=== PATIENT | female | born 1965 | race Hispanic/Latino ===

== ENCOUNTER → 2020-01-15 18:06 | Outpatient (CLI) | payer OTHER, SELFPAY ==
--- NOTE | ~2020-01-15 | MM_ITS ---
EXAMINATION: MM screening [facility] BI w ora HISTORY: Screening mammogram TECHNIQUE: Craniocaudal and mediolateral oblique 3-D tomosynthesis images were obtained and synthetic 2-D images were generated. CAD analysis was submitted and interpreted. COMPARISON: 01/08/2019 BREAST PARENCHYMAL COMPOSITION: There are scattered areas of fibroglandular density. FINDINGS: There are developing bilateral breast asymmetries/masses. There are no suspicious calcifica tions. There is a tissue marker in the upper central aspect of the right breast. IMPRESSION: 1. Developing bilateral breast asymmetries. 2. Additional mammographic views and possible breast ultrasound are recommended. BI-RADS Category 0: Incomplete: Needs additional imaging evaluation. Reviewed, dictated and finalized at location A. ADER IMPRESSION: 1. Developing bilateral breast asymmetries. 2. Additional mammographic views and possible breast ultrasound are recommended . BI-RADS Category 0: Incomplete: Needs additional imaging evaluation.
== END ==
PROVIDERS: Visit Provider Obstetrics & Gynecology
DX: Z12.31 Encounter for screening mammogram for malignant neoplasm of breast (principal); R92.8 Other abnormal and inconclusive findings on diagnostic imaging of breast
CPT/HCPCS: 77063; 77067

== ENCOUNTER → 2020-02-05 09:54 | Outpatient (CLI) | payer OTHER, SELFPAY ==
--- NOTE | ~2020-02-05 | MMUS_ITS ---
EXAMINATION: MM diagnostic mammo BI, US breast BI limited HISTORY: Follow-up bilateral breast masses TECHNIQUE: Additional 3-D tomosynthesis images of the breasts were performed and synthetic 2-D images were generated. CAD analysis was submitted and interpreted. High resolution bilateral breast ultraso und was performed. COMPARISON: Comparison to multiple prior studies sequentially, with oldest reviewed study dated 01/08. FINDINGS: MAMMOGRAPHIC FINDINGS: Breast composed of scattered areas of fibroglandular density. There are small bilateral breast masses which are scattered by fibroglandular tissue. There are no suspicious calcifications or architectura l distortion. ULTRASOUND: Right breast ultrasound: At 12:00, 5 cm from the nipple, there is a cluster of cysts measuring up to 5 mm. At 11:00, 7 cm from the nipple there is a 4 mm cyst. At 10:00, 8 cm from the nipple, there is a 5 mm intramammary lymph node. Left breast ultrasound: 4 mm cyst at 2:00, 6 cm from the nipple. At 2:00, 5 cm from the nipple there is a 1.3 cm cyst. IMPRESSION: 1. No evidence for malignancy in either breast. Benign bilateral breast cysts. 2. Routine yearly screening mammogram and regular clinical breast examination are recommended. BI-RADS Category 2: Benign finding(s). Reviewed, dictated and finalized at location A. IMPRESSION: 1. No evidence for malignancy in either breast. Benign bilateral breast cysts. 2. Routine yearly screening mammogram and regular clinical breast examination a re recommended. BI-RADS Category 2: Benign finding(s).
== END ==
PROVIDERS: PCP Emergency Medicine; Visit Provider Obstetrics & Gynecology
DX: R92.8 Other abnormal and inconclusive findings on diagnostic imaging of breast (principal)
CPT/HCPCS: 76642; 77066

== ENCOUNTER 2020-04-13 00:25 | Emergency (ER) | payer OTHER, SELFPAY ==
--- NOTE | ~2020-04-13 | XR_ITS ---
XR chest 2V DATE: 04/13/2020 01:00 INDICATION: Shortness of breath TECHNIQUE: PA and lateral views COMPARISON: 09/01/2019 2 view chest FINDINGS: Chronic elevation of right leaf of diaphragm. Surgical clips, right upper quadrant, consist ent with cholecystectomy. Normal heart size. Mild aortic calcification and tortuosity. No hilar or mediastinal enlargement. No pulmonary infiltrate or consolidation, pleural effusion or pulmonary vascular congestion or pneumo thorax. IMPRESSION: Chronic elevation right diaphragm Status post cholecystectomy No active cardiac pulmonary disease Aortic atherosclerosis Reviewed, dictated and finalized at location A.
[2020-04-13 00:29] VITALS: BP 176/99; PULSE 115; RESP 20; TEMP 36.9; O2SAT 100
--- NOTE | 2020-04-13 00:36 | ECG_ITS ---
Measurements Intervals [place] Rate: 112 P: 41 WA: 146 QRS: -29 QRSD: 87 T: 31 QT: 314 QTc: 430 Interpretive Statements SINUS TACHYCARDIA POOR R WAVE PROGRESSION, ANTERIOR LEADS BASELINE WANDER- V4-V5 ABNORMAL ECG Electronically Signed On 04-13-2020 7:25:35 CDT by Juan Zimmerman D.O.
--- NOTE | 2020-04-13 00:38 | ED.ARRPALP ---
HPI - Arrhythmia/Palpitations General Chief Complaint: Arrhythmia/Palpitations Stated Complaint: nausea, fast HR Time Seen by Provider: 04/13/20 00:28 History of Present Illness HPI narrative: Fast heart rate for the past several hours. She has noted this multiple times recently. She has had her BP medications adjusted due to these complaints. Additioanly she feels nauseated. She denies chest pain or SOB, although she does say that she feels like she just ran around the block . Related Data Allergies Allergy/AdvReac Type Severity Reaction Status Date / Time ciprofloxacin Allergy Intermediate Dyspnea / Verified 04/13/20 00:38 SOB metronidazole [From Flagyl] Allergy Intermediate Dyspnea / Verified 04/13/20 00:38 SOB codeine Allergy Mild Itching Verified 04/13/20 00:38 amlodipine AdvReac Intermediate Hypotension Verified 04/13/20 00:38 Review of Systems Review of Systems: All systems reviewed & are unremarkable except as noted in HPI and below Constitutional: Constitutional: Denies chills and Denies fever(s) ENT: Denies sore throat Cardiovascular: Cardiovascular: Denies chest pain and Reports rapid heart rate Respiratory: Respiratory: Denies cough and Denies dyspnea Gastrointestinal: Gastrointestinal: Denies abdominal pain, Reports nausea and Denies vomiting Psychiatric: Psychiatric: Reports anxiety [facility] Social History Social History (Updated 04/14/20 @ 02:20 by Gui Wu MD) Smoking status: Current every day smoker Exam Const: General: healthy appearing, no acute distress and alert Orientation/consciousness: patient oriented x3 HENMT: Head: normal to inspection Neck: Neck: normal visual inspection and no lymphadenopathy Chest: Chest palpation & inspection: no tenderness Resp: Effort & Inspection: normal respiratory effort Auscultation: clear to auscultation bilaterally, no rales, no rhonchi and no wheezes Cardio: Jugular venous distension: no JVD Rate: tachycardic Rhythm: regular rhythm Heart sounds: no murmurs GI: Inspection: non-distended GI Palp: Yes Soft to palpation and No Tenderness to palpation present (GI) Skin: General skin exam: normal color Neuro: General: patient oriented x3, moves all extremities, no focal motor deficits and CN's II-XI intact bilaterally Speech: normal speech Gait exam (Neuro): Normal gait present Extrem: General: no edema Psych: Appearance: well kempt Affect: normal affect Course Vital Signs Vital signs: Vital Signs Temperature 36.9 C 04/13/20 00:29 Pulse Rate 115 H 04/13/20 00:29 Respiratory Rate 20 04/13/20 00:29 Blood Pressure 176/99 H 04/13/20 00:29 Pulse Oximetry 100 04/13/20 00:29 Temperature 36.6 C 04/13/20 04:11 Pulse Rate 96 04/13/20 04:11 Respiratory Rate 16 04/13/20 04:11 Blood Pressure 108/63 04/13/20 04:11 Pulse Oximetry 99 04/13/20 04:11 MDM - Arrhythmia/Palpitations Differential Diagnosis Differential diagnosis: Likely palpitations, anxiety and sinus tachycardia Medical Records Attestation: I reviewed the patient's medical records. Lab Data Attestation: I reviewed the patient's lab results. Result diagrams: 04/13/20 00:51 04/13/20 00:51 Labs: Lab Results 04/13/20 04/13/20 04/13/20 Range/Units 00:51 00:51 00:51 WBC 13.2 H (4.5-10.0) K/mm3 RBC 4.53 (4.2-5.4) M/mm3 Hgb 14.2 (12.0-15.0) g/dL Hct 42.0 (37.0-47.0) % MCV 92.7 (80-100) fl MCH 31.3 (26-34) pg MCHC 33.8 (32-36) g/dl RDW 13.3 (11.5-14.5) % Plt Count 333 (150-375) k/mm3 MPV 10.4 (7.4-10.4) fl Immature Gran % (Auto) 0.6 H (0-0.5) % Neut % (Auto) 65.7 (45.5-73.1) % Lymph % (Auto) 25.2 (18.3-44.2) % [place] % (Auto) 6.2 (2.6-8.5) % Eos % (Auto) 1.8 (0-4.4) % Baso % (Auto) 0.5 (0.2-1.2) % Lymph # (Auto) 3.32 H (0.9-3.2) K/mm3 [place] # (Auto) 0.8 H (0.1-0.6) K/mm3 Eos # (Auto) 0.2 (0-0.3) K/mm3 B
[2020-04-13 01:07] LABS: Basophils Absolute Auto 0.1 K/mm3 (0.0-0.1); Basophils Percent Auto 0.5 % (0.2-1.2); Eosinophils Absolute Auto 0.2 K/mm3 (0-0.3); Eosinophils Percent Auto 1.8 % (0-4.4); Hemoglobin 14.2 g/dL (12.0-15.0); Immature Granulocyte Absolute 0.08 K/mm3 (0.00-0.031); Immature Granulocyte Percent A 0.6 % (0-0.5); Lymphocytes Absolute Auto 3.32 K/mm3 (0.9-3.2); Lymphocytes Percent Auto 25.2 % (18.3-44.2); Mean Corpuscular HGB Conc 33.8 g/dl (32-36); Mean Corpuscular Hemoglobin 31.3 pg (26-34); Mean Corpuscular Volume 92.7 fl (80-100); Mean Platelet Volume 10.4 fl (7.4-10.4); Monocytes Absolute Auto 0.8 K/mm3 (0.1-0.6); Monocytes Percent Auto 6.2 % (2.6-8.5); Neutrophils Absolute Auto 8.6 K/mm3 (1.3-6.7); Neutrophils Percent Auto 65.7 % (45.5-73.1); Platelet Count Result 333 k/mm3 (150-375); Red Blood Count 4.53 M/mm3 (4.2-5.4); Red Cell Distribution Width 13.3 % (11.5-14.5); White Blood Count 13.2 K/mm3 (4.5-10.0)
[2020-04-13] MEDS: LORAZEPAM INJ 2 MG/ML VIAL 1 MG IV PUSH (01:12)
[2020-04-13] MEDS: SODIUM CHLORIDE 0.9% IV 1,000 ML 999 ML IV CONT (01:13)
[2020-04-13 01:20] LABS: Blood Urea Nitrogen 17 mg/dL (7-17); Calcium 8.8 mg/dL (8.4-10.2); Carbon Dioxide 29 mmol/L (22-30); Chloride 103 mmol/L (98-107); Estimated Glomerular Filt Rate > 60; Glucose 104 mg/dL (65-105); Potassium 3.8 mmol/L (3.4-5.0); Sodium 138 mmol/L (137-145)
[2020-04-13 02:11] VITALS: BP 157/99; PULSE 111; RESP 20; O2SAT 100
[2020-04-13 02:34] VITALS: BP 121/72; PULSE 101; RESP 22; O2SAT 99
--- NOTE | 2020-04-13 02:51 | PC.NURSE ---
Patient's Steven, calls to get update on patient. This nurse informed him that the patient is stable and that we are waiting for test results at this time.
[2020-04-13 02:56] LABS: Add Urine Microscopic? NO; Appearance Urine Clear (Clear); Bilirubin Urine Negative (Negative); Blood Urine Negative (Negative); Color Urine Straw (Yellow); Glucose Urine UA Negative (Negative); Ketones Urine Negative (Negative); Leukocyte Esterase Ur Negative LEU/UL (Negative); Nitrate Urine Negative (Negative); Protein Urine Negative (Negative); RBC Urine 0-2 /hpf (0-2); Specific Grav Ur 1.012 (1.001-1.035); Squamous Epithelial Cell Urine Rare /hpf (Few); Urobilinogen Urine Negative mg/dL (<2.0); WBC Urine 0-3 /hpf
[2020-04-13 04:11] VITALS: BP 108/63; PULSE 96; RESP 16; TEMP 36.6; O2SAT 99
== END 2020-04-13 04:15 | disposition home or self-care (01) ==
PROVIDERS: Emergency Provider Emergency Medicine; PCP Emergency Medicine
DX: R00.0 Tachycardia, unspecified (principal); R94.31 Abnormal electrocardiogram [ECG] [EKG]
CPT/HCPCS: 36415; 71046; 80048; 81003; 85025; 85380; 93005; 96361; 96374; 99284; J2060; J7030

== ENCOUNTER → 2021-03-30 12:22 | Outpatient (CLI) | payer OTHER, SELFPAY ==
--- NOTE | ~2021-03-30 | XR_ITS ---
EXAMINATION: XR lumbar spine 2-3V EXAM DATE: 03/30/2021 12:43 INDICATION: Lumbago with sciatica, right side. TECHNIQUE: Lumber spine frontal, lateral, lateral L5-S1 projections for interpretation. There is no prior study for comparison. FINDINGS: Mild lumbar levoscoliosis. There is mild to moderate loss of the L1-2 disc height. The yuliya tebral body and disc heights are otherwise well maintained. Mild to moderate lumbar facet arthropathy . There are cholecystectomy clips. Sacrum, sacroiliac joints, sacral arcuate lines are intact. Parasp inal soft tissue is unremarkable. IMPRESSION: 1. Mild to moderate L1-S2 disc disease. 2. Mild to moderate lumbar facet arthropathy. 3. Mild levoscoliosis. Reviewed, dictated and finalized at location A.
== END ==
PROVIDERS: PCP Emergency Medicine; Visit Provider Emergency Medicine
DX: M54.41 Lumbago with sciatica, right side (principal); M51.36 Other intervertebral disc degeneration, lumbar region
CPT/HCPCS: 72100

== ENCOUNTER → 2021-06-17 14:58 | Outpatient (CLI) | payer OTHER, SELFPAY ==
--- NOTE | ~2021-06-17 | MR_ITS ---
EXAMINATION: MR lumbar spine wo con EXAM DATE: 06/17/2021 16:25 INDICATION: Pain in thoracic spine, Radiculopathy, lumbar region Back Pain. TECHNIQUE: Multi-sequential, multiplanar MR images of the lumbar spine were obtained without contrast . Sagittal T1, T2, T2 fat saturation images. Axial T2 weighted images. Correlation is made to lumba r x-ray 03/30/2021. FINDINGS: The conus medullaris terminates at the L1-2 level and has normal signal intensity and morph ology. Mild lumbar disc disease. The vertebral bodies are aligned in the AP dimension. There are no suspicious marrow signal abnormalities. Paraspinal soft tissue is unremarkable. Level by level evaluation: T12-L1: Disc does not extend beyond the endplate margin. Facet arthropathy: Minimal. Neural foraminal stenosis: No stenosis. Central canal stenosis: No stenosis. L1-L2: There is a minimal diffuse disc bulge. Facet arthropathy: Minimal. Neural foraminal stenosis: No stenosis. Central canal stenosis: No stenosis. L2-L3: There is a minimal diffuse disc bulge. Facet arthropathy: Mild. Neural foraminal stenosis: No stenosis. Central canal stenosis: No stenosis. L3-L4: There is a mild to moderate diffuse disc bulge. Facet arthropathy: Mild to moderate. Neural foraminal stenosis: Mild to moderate left. Central canal stenosis: Mild. L4-L5: There is a mild diffuse disc bulge. Facet arthropathy: Mild. Neural foraminal stenosis: Mild left. Central canal stenosis: Mild. L5-S1: There is a mild diffuse disc bulge. Facet arthropathy: Mild. Neural foraminal stenosis: Mild right. Central canal stenosis: No stenosis. IMPRESSION: 1. Left L3-4 mild to moderate neural foraminal stenosis, less at other levels. Reviewed, dictated and finalized at location B.
--- NOTE | ~2021-06-17 | MR_ITS ---
EXAMINATION: MR thoracic spine wo con EXAM DATE: 06/17/2021 16:24 INDICATION: Thoracic pain, lumbar radiculopathy. TECHNIQUE: Multi-sequential, multiplanar MR images of the thoracic spine were obtained without contra st. Sagittal T1, T2, T2 fat saturation, axial T2 weighted images reviewed. There is no prior study for comparison. FINDINGS: There is mild to moderate thoracic facet arthropathy at T8-10-11 and T11-12. There is moder ate left neural foraminal stenosis at T10-11, moderate right neural foraminal stenosis at T9-T10. Oth erwise no more than mild neural foraminal stenosis or central canal stenosis. Mild disc bulges at mos t of the levels. There is edema in the right half of the T9 vertebral body without discrete fracture line identified, could be bone bruise. Paraspinal soft tissue is unremarkable. IMPRESSION: 1. Moderate right neural foraminal stenosis T9-10 and left at T10-11. 2. Less spondylosis other levels. 3. T9 edema could be bone bruise, no fracture line identified. Reviewed, dictated and finalized at location B.
== END ==
PROVIDERS: PCP Emergency Medicine; Visit Provider Nurse Practitioner Adult Health
DX: M54.16 Radiculopathy, lumbar region (principal)
CPT/HCPCS: 72146; 72148

== ENCOUNTER → 2021-06-25 12:02 | Outpatient (CLI) | payer OTHER, SELFPAY ==
--- NOTE | ~2021-06-25 | MM_ITS ---
EXAMINATION: MM screening [facility] BI w ora HISTORY: Screening TECHNIQUE: Craniocaudal and mediolateral oblique 3-D tomosynthesis images were obtained and synthetic 2-D images were generated. CAD analysis was submitted and interpreted. COMPARISON: Comparison to multiple prior studies sequentially, with oldest reviewed study dated 01/08. BREAST PARENCHYMAL COMPOSITION: There are scattered areas of fibroglandular density. FINDINGS: Development of a mass in the lower inner quadrant of the left breast, middle third. The rig ht breast is stable without evidence for malignancy. IMPRESSION: 1. New 6 mm left breast mass, lower inner quadrant, middle third. 2. Additional mammographic views and possible breast ultrasound are recommended. BI-RADS Category 0: Incomplete: Needs additional imaging evaluation. Reviewed, dictated and finalized at location A. IMPRESSION: 1. New 6 mm left breast mass, lower inner quadrant, middle third. 2. Additional mammographic views and possible breast ultrasound are recommended . BI-RADS Category 0: Incomplete: Needs additional imaging evaluation.
== END ==
PROVIDERS: Visit Provider Obstetrics & Gynecology
DX: Z12.31 Encounter for screening mammogram for malignant neoplasm of breast (principal); R92.8 Other abnormal and inconclusive findings on diagnostic imaging of breast
CPT/HCPCS: 77063; 77067

== ENCOUNTER → 2021-07-30 08:25 | Outpatient (CLI) | payer OTHER, SELFPAY ==
--- NOTE | ~2021-07-30 | MMUS_ITS ---
EXAMINATION: MM diagnostic [facility] LT w ora, US breast LT complete HISTORY: New 6 mm mass reported in the lower inner quadrant of the left breast, middle third, on 2020 screening mammogram TECHNIQUE: Additional full field ML and spot ML, MLO and craniocaudal 3-D tomosynthesis images of the left breast were performed and synthetic 2-D images were generated. CAD analysis was submitted and i nterpreted. High resolution complete left breast ultrasound was performed. COMPARISON: 06/25/2021 bilateral digital screening mammogram BREAST PARENCHYMAL COMPOSITION: There are scattered areas of fibroglandular density. FINDINGS: MAMMOGRAPHIC FINDINGS: Mildly nodular fibroglandular stroma is noted. No suspicious mass or architectural distortion is iden tified. ULTRASOUND: 1:00 2 cm from nipple: There is an irregular anti-parallel somewhat bilobed shaped approximately 3.6 x 6.8 mm mass. No internal vascularity or shadowing is noted. However, the irregular shape and anti-p arallel orientation are suspicious. Ultrasound-guided biopsy is recommended. 2:00 5 cm from nipple: 6 mm simple cyst with through transmission and posterior enhancement 7:00 6 cm from nipple: Probable multi septate approximately 4 x 5 mm cyst. IMPRESSION: 1. Irregular antiparallel 3.6 x 6.8 mm mass of left breast at 1:00 2 cm from nipple 2. Ultrasound-guided biopsy is recommended BI-RADS category 4, suspicious findings. Dr. Melo telephoned the report and ultrasound-guided biopsy recommendation on 07/30/[address] Vela's Field Service Tech Sachi. Reviewed, dictated and finalized at location A. IMPRESSION: 1. Irregular antiparallel 3.6 x 6.8 mm mass of left breast at 1:00 2 cm from ni pple 2. Ultrasound-guided biopsy is recommended BI-RADS category 4, suspicious findings. Dr. Melo telephoned the report and ultrasound-guided biopsy recommendation on at [address] Vela's Field Service Tech Sachi.
== END ==
PROVIDERS: PCP Emergency Medicine; Visit Provider Obstetrics & Gynecology
DX: N63.20 Unspecified lump in the left breast, unspecified quadrant (principal)
CPT/HCPCS: 76641; 77061; 77065; G0279

== ENCOUNTER 2021-09-21 17:33 | Emergency (ER) | payer OTHER, SELFPAY ==
[2021-09-21 17:40] VITALS: BP 143/89; PULSE 91; RESP 16; TEMP 36.4; O2SAT 100
--- NOTE | 2021-09-21 17:53 | ED.WOUNDLAC ---
HPI - Wound/Laceration General Chief Complaint: Wound/Laceration Stated Complaint: rt hand pinkie finger laceration Time Seen by Provider: 09/21/21 17:48 Source: patient, RN notes reviewed and old records reviewed Mode of arrival: ambulatory Limitations: no limitations History of Present Illness HPI narrative: 56 year old female presents to express care with complaints of laceration to her right dorsal distal right 5th finger which occurred earlier today when she was cleaning the blades on [employer] type of appliance. Patient states that her tetanus is up to date. Patient states that she tried pressure dressing, Betadine and even applied liquid skin to wound to try to stop the bleeding but area continues to ooze blood. 1.5cm wound present to the distal dorsal aspect of 5th right finger, mobility intact with strong right radial pulse. Related Data Home Medications Medication Instructions Recorded Confirmed aspirin 09/21/21 atorvastatin 09/21/21 duloxetine mg PO 09/21/21 ergocalciferol (vitamin D2) 09/21/21 estradiol VAGINAL 09/21/21 hydrochlorothiazide 09/21/21 hydrocodone-acetaminophen 09/21/21 irbesartan mg 09/21/21 lubiprostone mcg PO 09/21/21 ropinirole mg 09/21/21 Allergies Allergy/AdvReac Type Severity Reaction Status Date / Time ciprofloxacin Allergy Intermediate Dyspnea / Verified 05/16/20 14:25 SOB metronidazole [From Flagyl] Allergy Intermediate Dyspnea / Verified 05/16/20 14:25 SOB codeine Allergy Mild NAUSEA AND Unverified 05/16/20 14:25 VOMITING, ITCHING amlodipine AdvReac Intermediate Hypotension Verified 05/16/20 14:25 Review of Systems Review of Systems: CONSTITUTIONAL: Denies fever, chills, or sweats. EYES: Denies visual changes, redness, or discharge. ENT: Denies rhinorrhea, congestion, sore throat, or otalgia. CARDIOVASCULAR: Denies chest pain, palpitations, or edema. RESPIRATORY: Denies cough or dyspnea. GASTROINTESTINAL: Denies abdominal pain, nausea, vomiting, or diarrhea. GENITOURINARY: Denies dysuria or hematuria. SKIN: Denies rash or itching,positive for 1.5cm linear laceration to the dorsal distal aspect of 5th right finger MUSCULOSKELETAL: Denies back pain,positive for joint pain, or myalgia. NEUROLOGIC: Denies headache, numbness, or weakness. PSYCHIATRIC: Positive history of anxiety or depression. All systems reviewed & are unremarkable except as noted in HPI and below PMFSH Past Medical History Medical History (Updated 09/21/21 @ 19:50 by Lynette Jorge NP) Anxiety Arthritis Elevated lipids Fibromyalgia Fracture of right forearm GERD (gastroesophageal reflux disease) Hypertension Restless leg syndrome Surgical History Surgical History (Updated 09/21/21 @ 19:49 by Lynette Jorge NP) H/O: hysterectomy History of appendectomy Previous section x3 Family History Family History (Updated 09/21/21 @ 19:50 by Lynette Jorge NP) Other No significant family history Social History Social History (Updated 09/21/21 @ 19:51 by Lynette Jorge NP) Smoking status: Current every day smoker Tobacco type: cigarettes Alcohol intake: current Alcohol use details: social Substance use: never Living arrangements: with family Gender identity (if verbalized by the patient): Female Comments At time of signature, agree with nursing past medical, surgical, social and family history. There is no relevant family history pertinent to the presenting complaint Exam Narrative: GENERAL: Well-appearing, well-nourished, and in no acute distress. HEAD: Normocephalic, atraumatic. EYES: PERRLA and EOMI. ENT: Nares clear, no rhinorrhea or epistaxis. Mucous membranes moist. TM's normal with good light reflex, throat pink with no redness lesions or exudates, NECK: Supple.no lymphadenopathy CHEST: Clear to auscultation. No respiratory distress.SAO2 100% on room air HEART: Regular rate and rhythm. No murmur heard. Normal per
== END 2021-09-21 18:40 | disposition home or self-care (01) ==
PROVIDERS: Emergency Provider Registered Nurse; PCP Emergency Medicine
DX: S61.216A Laceration without foreign body of right little finger without damage to nail, initial encounter (principal); W26.8XXA Contact with other sharp object(s), not elsewhere classified, initial encounter; F17.210 Nicotine dependence, cigarettes, uncomplicated; M19.90 Unspecified osteoarthritis, unspecified site; M79.7 Fibromyalgia; I10 Essential (primary) hypertension; G25.81 Restless legs syndrome
CPT/HCPCS: 12001; 99212; G0463

== ENCOUNTER → 2021-10-31 10:39 | Outpatient (CLI) | payer OTHER, SELFPAY ==
--- NOTE | ~2021-10-31 | MR_ITS ---
EXAMINATION: MR cervical spine wo con EXAM DATE: 10/31/2021 11:36 INDICATION: Cervical radicular pain neck pain/right scapular pain x10-12 yrs s/p pt fall worsening. TECHNIQUE: Multi-sequential, multiplanar MR images of the cervical spine were obtained without contra st. Axial T2, axial T2 MERGE sequence. Sagittal T1, T2, T2 fat saturation images also obtained. Th ere is no prior study for comparison. FINDINGS: There is moderate loss of the C5-6 disc height, mild to moderate loss of the C4-5 and C6-7 disc height. The spinal cord signal intensity and intrinsic morphology is normal. Cervicomedullary j unction is normal in appearance. The vertebral bodies are aligned in the AP dimension. There are no s uspicious marrow signal abnormalities. Paraspinal soft tissue is unremarkable. Level by level evaluation: C2-C3: Disc does not extend beyond the endplate margin. Uncovertebral joint arthropathy: None. Facet joint arthropathy: Moderate left. Neural foraminal stenosis: No stenosis. Central canal stenosis: No stenosis. C3-C4: Disc does not extend beyond the endplate margin. Uncovertebral joint arthropathy: Mild left moderate bilateral. Facet joint arthropathy: None. Neural foraminal stenosis: No stenosis. Central canal stenosis: No stenosis. C4-C5: There is a mild diffuse disc bulge. Uncovertebral joint arthropathy: Moderate to severe right, moderate left. Facet joint arthropathy: Severe right, moderate left. Neural foraminal stenosis: Moderate to severe right, mild to moderate left. Central canal stenosis: Mild. C5-C6: There is a mild diffuse disc bulge. Uncovertebral joint arthropathy: Severe left, moderate to severe right. Facet joint arthropathy: Moderate bilateral. Neural foraminal stenosis: Severe left, moderate to severe right. Central canal stenosis: Mild. C6-C7: There is a mild diffuse disc bulge. Uncovertebral joint arthropathy: Moderate to severe bilateral. Facet joint arthropathy: Mild to moderate bilateral. Neural foraminal stenosis: Moderate right, mild to moderate left. Central canal stenosis: Mild. C7-T1: There is a minimal diffuse disc bulge. Uncovertebral joint arthropathy: Moderate to severe left, moderate right. Facet joint arthropathy: Moderate bilateral. Neural foraminal stenosis: Mild to moderate right, mild left. Central canal stenosis: No stenosis. IMPRESSION: Significant mid cervical uncovertebral joint arthropathy causing neural foraminal stenosi s detailed above. Reviewed, dictated and finalized at location A. 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
== END ==
PROVIDERS: PCP Emergency Medicine
DX: M54.16 Radiculopathy, lumbar region (principal); M54.12 Radiculopathy, cervical region
CPT/HCPCS: 72141

== ENCOUNTER → 2023-05-12 14:10 | Outpatient (CLI) | payer OTHER, SELFPAY ==
--- NOTE | ~2023-05-12 | MM_ITS ---
EXAMINATION: MM screening [facility] BI w ora HISTORY: Screening mammogram TECHNIQUE: Craniocaudal and mediolateral oblique 3-D tomosynthesis images were obtained and synthetic 2-D images were generated. CAD analysis was submitted and interpreted. COMPARISON: 07/30/2021 diagnostic left mammogram and complete left breast ultrasound examination 06/25/2021 bilateral screening mammogram BREAST PARENCHYMAL COMPOSITION: There are scattered areas of fibroglandular density. FINDINGS: Right breast: Biopsy marker on the right; history of prior benign right stereotactic breast biopsy. T here is no evidence of suspicious mammographic mass, calcification, or architectural distortion to benson ggest malignancy in the right breast. There has been no suspicious interval change. Left breast: There is increased density in the upper outer left breast compared to 06/25/2021. Diagnostic left mammo gram and left breast ultrasound examination are recommended. IMPRESSION: 1. Increased density in upper outer left breast since 06/25/2021 2. Diagnostic left mammogram and left breast ultrasound examination are recommended BI-RADS Category 0: Incomplete: Needs additional imaging evaluation. Reviewed, dictated and finalized at location A. IMPRESSION: 1. Increased density in upper outer left breast since 06/25/2021 2. Diagnostic left mammogram and left breast ultrasound examination are recomme nded BI-RADS Category 0: Incomplete: Needs additional imaging evaluation.
== END ==
PROVIDERS: PCP Emergency Medicine; Visit Provider Obstetrics & Gynecology
DX: Z12.31 Encounter for screening mammogram for malignant neoplasm of breast (principal); R92.8 Other abnormal and inconclusive findings on diagnostic imaging of breast
CPT/HCPCS: 77063; 77067

== ENCOUNTER → 2023-06-20 14:40 | Outpatient (CLI) | payer OTHER, SELFPAY ==
--- NOTE | ~2023-06-20 | MMUS_ITS ---
EXAMINATION: MM diagnostic aury LT w ora, US breast LT limited HISTORY: Increased density in the upper outer left breast on 05/12/2023 screening mammogram TECHNIQUE: Additional 3-D tomosynthesis images of the left breast were performed and synthetic 2-D im ages were generated. CAD analysis was submitted and interpreted. High resolution upper outer and lowe r-outer quadrant left breast ultrasound was performed. COMPARISON: 05/12/2023 bilateral screening mammogram. FINDINGS: MAMMOGRAPHIC FINDINGS: Approximately 4.2 x 9.5 mm circumscribed opacity is noted in the upper inner left breast, stable or s lightly diminished in size since 06/25/2021; circumscribed margins and stable or diminished size since 2020 are most consistent with benign process. There is mildly nodular fibroglandular stroma which may obscure smaller circumscribed masses. Ultraso und examination of the upper outer and lower-outer quadrants was performed. ULTRASOUND: No suspicious solid lesion or shadowing is detected. 1:00 7 cm from nipple: Parallel circumscribed mixed solid and cystic 6.8 x 6 x 3.3 mm lesion, with th rough transmission, benign in appearance 1:00 7 cm from nipple: 4.6 x 2.5 x 4.5 mm similar circumscribed hypoechoic mixed cystic and solid les ion, without internal vascularity, with through transmission, benign in appearance 2:00 8 cm from nipple: Similar mixed cystic and solid circumscribed parallel lesion measuring 2.5 x 6 .5 x 10 mm, with through transmission, no internal vascularity, benign in appearance 2:00 7 cm from nipple: 4.6 mm circumscribed rounded opacity with through transmission, no internal va scularity, consistent with simple cyst IMPRESSION: 1. Benign findings 2. Routine annual mammographic screening is recommended BI-RADS Category 2: Benign finding(s). Reviewed, dictated and finalized at location A. IMPRESSION: 1. Benign findings 2. Routine annual mammographic screening is recommended BI-RADS Category 2: Benign finding(s).
== END ==
PROVIDERS: PCP Emergency Medicine; Visit Provider Obstetrics & Gynecology
DX: R92.2 Inconclusive mammogram (principal)
CPT/HCPCS: 76642; 77061; 77065; G0279

== ENCOUNTER 2023-09-23 09:22 | Emergency (ER) | payer OTHER, SELFPAY ==
[2023-09-23 09:34] VITALS: BP 126/85; PULSE 85; RESP 16; TEMP 36.4; O2SAT 98
--- NOTE | 2023-09-23 09:38 | ED.URI ---
HPI - URI/Sore Throat General Chief Complaint: Upper Respiratory Infection Stated Complaint: Cough Source: patient Mode of arrival: ambulatory Limitations: no limitations History of Present Illness HPI Narrative: 58-year-old female the history of hypertension presented for complaint of cough for over 1 week. She states the cough is ?deep? and hears rattling in the chest. She denies fatigue, shortness of breath, nausea diarrhea, fevers or chills. She is taking DayQuil and reports improvement in symptoms during the day. Endorses sick contacts. She states she tested negative for COVID a few days ago. Smokes up to 1ppd. Related Data Home Medications Medication Instructions Recorded Confirmed atorvastatin 20 mg tablet 20 mg PO DAILY 09/21/21 09/23/23 duloxetine 30 mg capsule,delayed 30 mg PO DAILY 09/21/21 09/23/23 release ergocalciferol (vitamin D2) 1,250 1,250 mcg PO WEEKLY 09/21/21 09/23/23 mcg (50,000 unit) capsule hydrochlorothiazide 25 mg tablet 25 mg PO DAILY 09/21/21 09/23/23 hydrocodone 5 mg-acetaminophen 325 1 tablet PO PRN PRN Pain (Scale 09/21/21 09/23/23 mg tablet Score 4-6) irbesartan 75 mg tablet 75 mg PO DAILY 09/21/21 09/23/23 lubiprostone 24 mcg capsule 24 mcg PO DAILY 09/21/21 09/23/23 ropinirole 1 mg tablet 1 mg PO DAILY 09/21/21 09/23/23 metoprolol succinate 50 mg 50 mg PO DAILY 12/29/22 09/23/23 tablet,extended release 24 hr pregabalin 75 mg capsule (Lyrica) 75 mg PO TID 12/29/22 09/23/23 Allergies Allergy/AdvReac Type Severity Reaction Status Date / Time ciprofloxacin Allergy Intermediate Dyspnea / Verified 09/23/23 09:28 SOB metronidazole [From Flagyl] Allergy Intermediate Dyspnea / Verified 09/23/23 09:28 SOB codeine Allergy Mild NAUSEA AND Unverified 09/23/23 09:28 VOMITING, ITCHING amlodipine AdvReac Intermediate Hypotension Verified 09/23/23 09:28 Review of Systems Review of Systems: CONSTITUTIONAL: Denies body aches, fever, chills, or sweats. EYES: Denies visual changes, redness, or discharge. ENT: Denies rhinorrhea, congestion, sore throat, or otalgia. CARDIOVASCULAR: Denies chest pain, palpitations, or edema. RESPIRATORY: Reports cough, denies sob, wheezing. GASTROINTESTINAL: Denies abdominal pain, nausea, vomiting, or diarrhea. GENITOURINARY: Denies dysuria or hematuria. SKIN: Denies rash, itching, or wounds. MUSCULOSKELETAL: Denies back pain, joint pain, or myalgia. NEUROLOGIC: Denies headache, numbness, tingling, or weakness. All systems reviewed & are unremarkable except as noted in HPI and below PMFSH Past Medical History Medical History Anxiety Arthritis Depression Elevated lipids Fibromyalgia Fracture of right forearm GERD (gastroesophageal reflux disease) Hypertension Osteoporosis Restless leg syndrome Screening mammogram, encounter for Surgical History Surgical History H/O: hysterectomy (~2008) lscope hysterectomy for endometriosis History of appendectomy (~2006) History of cholecystectomy (~2013) Previous section 1982 1988 1991 Family History Family History Sibling Diabetes mellitus sister Hypertension sister x2 Father Acute myocardial infarction Other Cerebrovascular accident paternal aunt Mother Malignant tumor of pharynx Social History Social History Smoking packs per day: 1 Smoking cigarettes per day: 20.0 Smoking status: Current every day smoker Tobacco type: cigarettes Alcohol intake: current Drinks per week: 5 Alcohol use details: social Substance use: never Substance use type: does not use Living arrangements: other Additional living arrangements comments: Occupation/Education: unemployed Additional occupation/education comment
== END 2023-09-23 09:50 | disposition home or self-care (01) ==
PROVIDERS: Emergency Provider Nurse Practitioner Family; PCP Emergency Medicine
DX: J40 Bronchitis, not specified as acute or chronic (principal); F17.210 Nicotine dependence, cigarettes, uncomplicated; M19.90 Unspecified osteoarthritis, unspecified site; M79.7 Fibromyalgia; K21.9 Gastro-esophageal reflux disease without esophagitis; I10 Essential (primary) hypertension; M81.0 Age-related osteoporosis without current pathological fracture; G25.81 Restless legs syndrome
CPT/HCPCS: 99213; G0463

== ENCOUNTER 2024-10-05 08:58 | Emergency (ER) | payer OTHER, SELFPAY ==
[2024-10-05] VITALS (8 sets, daily range): BP systolic 148–153; BP diastolic 83–88; PULSE 74–87; RESP 11–22; TEMP 36.2; O2SAT 95–99
--- NOTE | ~2024-10-05 | XR_ITS ---
EXAMINATION: XR ribs LT 2V w CXR 2V DATE: 10/05/2024 09:28 INDICATION: Left-sided chest wall pain TECHNIQUE: PA and lateral views of the chest and 4 views of the left ribs were obtained. COMPARISON: Chest radiograph dated 04/13/2020 FINDINGS: No rib fractures identified. Eventration of the anterior right hemidiaphragm. Lungs are clear with no focal airspace opacities, pulmonary edema, pleural effusion or pneumothorax. Heart size is normal. M oderate thoracic spondylosis. Cholecystectomy clips in right upper quadrant. IMPRESSION: 1. No rib fracture or acute cardiopulmonary disease. Reviewed, dictated and finalized at location [facility]. 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
--- NOTE | 2024-10-05 09:07 | ECG_ITS ---
Test Date: 2024-10-05 09:14:24 Measurements Intervals [place] Rate: 76 P: 10 CA: 152 QRS: -19 QRSD: 90 T: -14 QT: 351 QTc: 396 Interpretive Statements SINUS RHYTHM VOLTAGE CRITERIA FOR LVH MINIMAL Q WAVES- HIGH LATERAL LEADS BORDERLINE T WAVE ABNORMALITY- ANT/INF LEADS BASELINE ARTIFACT- I, II ,AVR, AVL, AVF BORDERLINE ECG No previous ECG available for comparison Electronically Signed On 10-05-2024 11:47:02 [employer] by Juan Zimmerman D.O.
--- NOTE | 2024-10-05 09:54 | ED_ITS ---
HPI - General Adult General Chief complaint: Unspecified Stated complaint: L rib pain Time Seen by Provider: 10/05/24 09:07 Source: patient Mode of arrival: ambulatory Limitations: no limitations History of Present Illness HPI narrative: This is a 59-year-old female that presents to the emergency department that presents to the emergency department for left sided mid back/rib pain. Ongoing over the last couple of days. No recent injuries or trauma. Pain is worse with movement. She has not taken anything today for pain. Denies fever, cough, shortness of breath, lower extremity edema. Related Data Home Medications Medication Instructions Recorded Confirmed atorvastatin 20 mg tablet 20 mg PO DAILY 09/21/21 01/04/24 duloxetine 30 mg capsule,delayed 30 mg PO DAILY 09/21/21 01/04/24 release ergocalciferol (vitamin D2) 1,250 1,250 mcg PO WEEKLY 09/21/21 01/04/24 mcg (50,000 unit) capsule hydrochlorothiazide 25 mg tablet 25 mg PO DAILY 09/21/21 01/04/24 hydrocodone 5 mg-acetaminophen 325 1 tablet PO PRN PRN Pain (Scale 09/21/21 01/04/24 mg tablet Score 4-6) irbesartan 75 mg tablet 75 mg PO DAILY 09/21/21 01/04/24 lubiprostone 24 mcg capsule 24 mcg PO DAILY 09/21/21 01/04/24 ropinirole 1 mg tablet 1 mg PO DAILY 09/21/21 01/04/24 metoprolol succinate 50 mg 50 mg PO DAILY 12/29/22 01/04/24 tablet,extended release 24 hr pregabalin 75 mg capsule (Lyrica) 75 mg PO TID 12/29/22 01/04/24 Allergies Allergy/AdvReac Type Severity Reaction Status Date / Time ciprofloxacin Allergy Intermediate Dyspnea / Verified 10/05/24 09:07 SOB metronidazole [From Flagyl] Allergy Intermediate Dyspnea / Verified 10/05/24 09:07 SOB codeine Allergy Mild NAUSEA AND Verified 10/05/24 09:07 VOMITING, ITCHING amlodipine AdvReac Intermediate Hypotension Verified 10/05/24 09:07 Review of Systems Review of Systems: CONSTITUTIONAL: Denies fever CARDIOVASCULAR: Reports rib pain. Denies palpitations, or edema. RESPIRATORY: Denies cough or dyspnea. All systems reviewed & are unremarkable except as noted in HPI and below PMFSH Past Medical History Medical History Anxiety Arthritis Depression Elevated lipids Fibromyalgia Fracture of right forearm GERD (gastroesophageal reflux disease) Hypertension Osteoporosis Restless leg syndrome Screening mammogram, encounter for Surgical History Surgical History H/O: hysterectomy (~2008) lscope hysterectomy for endometriosis History of appendectomy (~2006) History of cholecystectomy (~2013) Previous section 1982 1988 1991 Family History Family History Sibling Diabetes mellitus sister Hypertension sister x2 Father Acute myocardial infarction Other Cerebrovascular accident paternal aunt Mother Malignant tumor of pharynx Social History Social History (Updated 01/04/24 @ 14:47 by EDOUARD Partida) Smoking packs per day: 0.5 Smoking cigarettes per day: 10.0 Smoking status: Current every day smoker Tobacco type: cigarettes Second hand tobacco smoke exposure: Yes Alcohol intake: current Drinks per week: 5 Alcohol use details: social Substance use: never Substance use type: does not use Do You Feel Safe in your Home?: Yes Living arrangements: other Additional living arrangements comments: 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 HEAD: Normocephalic, atraumatic. EYES: EOMI. CHEST: Clear to auscultation. No respiratory distress. No wheezes rales or rhonchi HEART: Regular rate and rhythm. No murmur heard. Normal peripheral pulses. BACK: Tender to palpation of the left trapezius musculature EXTREMITIES: Normal range of motion. No edema. Strength equal in bilateral upper extremities (5/5) SKIN: Warm, dry, no rash. NEURO: No focal deficits. Alert and oriented x3. PSYCH: Normal mood and affect Course Course Emergency Course: patient updated on workup and agrees with plan of care Vital Signs Vital signs: Vital Signs Temperature 97.1 F L 10/05/24 09:03 Pulse Rate 87 10/05/24 09:03 Respiratory Rate 20 10/05/24 09:03 Blood Pressure 149/83 H 10/05/24 09:03 Pulse Oximetry 99 10/05/24 09:03 Oxygen Delivery Room Air 10/05/24 09:03 Temperature 97.1 F L 10/05/24 09:03 Pulse Rate 74 10/05/24 10:02 Respiratory Rate 20 10/05/24 10:02 Blood Pressure 148/85 H 10/05/24 10:02 Pulse Oximetry 95 10/05/24 10:02 Oxygen Delivery Room Air 10/05/24 09:03 Medical Decision Making MDM Narrative Medical decision making narrative: patient presents to the emergency department for left-sided mid back pain/rib pain. No recent injuries or trauma. Her vitals are stable. She is neurologically intact. pain is reproducible. Left rib/ chest x-ray without acute findings. EKG without concerning changes. Patient was updated on her workup and agrees with plan of care. Instructed to continue Tylenol, anti- inflammatories. Will be given muscle relaxer if needed for pain. She is to follow up with primary provider. She was given warnings to return to the ER Differential Diagnosis Differential Diagnosis: muscle strain, muscle spasm, rib fracture, contusion, pneumonia Vital Signs Vital Signs: Vital Signs Temperature 97.1 F L 10/05/24 09:03 Pulse Rate 87 10/05/24 09:03 Respiratory Rate 20 10/05/24 09:03 Blood Pressure 149/83 H 10/05/24 09:03 Pulse Oximetry 99 10/05/24 09:03 Oxygen Delivery Room Air 10/05/24 09:03 Temperature 97.1 F L 10/05/24 09:03 Pulse Rate 74 10/05/24 10:02 Respiratory Rate 20 10/05/24 10:02 Blood Pressure 148/85 H 10/05/24 10:02 Pulse Oximetry 95 10/05/24 10:02 Oxygen Delivery Room Air 10/05/24 09:03 Imaging Data Radiologist's impression: ITS Impressions Ribs w/Chest X-Ray 10/05/24 09:31 IMPRESSION: 1. No rib fracture or acute cardiopulmonary disease. ECG Data EKG #1: ECG completion date: 10/05/24 EKG Interpretation: normal rate, sinus rhythm, no ST changes and normal QT Critical Care Time Critical Care Time Critical Care Time: No Discharge Plan Discharge Clinical Impression: Back pain Qualifiers: Back pain location: thoracic back pain Chronicity: acute Back pain laterality: left Qualified Code(s): M54.6 - Pain in thoracic spine Patient Disposition: Home, Self-Care Condition: Stable Instructions: Muscle Strain (ED) Additional Instructions: Return to the ER if you experience fever, shortness of breath, swelling in your legs, weakness, numbness, or any other symptoms that are concerning to you Rest, use ice/heat, take anti-inflammatories (Aleve, Ibuprofen, Naproxen, etc) or Tylenol as needed for pain as well as muscle relaxer (Flexeril) as needed for pain. Muscle relaxers can make you drowsy, do not drive if you take this. Lidocaine patch as needed to the area of pain Follow up with your primary care doctor Prescriptions: New cyclobenzaprine 10 mg tablet 10 mg PO TID PRN (Reason: muscle spasm) Qty: 14 0RF lidocaine 5 % adhesive patch,medicated 1 patch topical DAILY PRN (Reason: pain) Qty: 15 0RF Rx Instructions: leave on most painful area for up to 12 hrs No Action atorvastatin 20 mg tablet 20 mg PO DAILY ropinirole 1 mg tablet 1 mg PO DAILY hydrocodone-acetaminophen 5-325 mg tablet 1 tablet PO PRN PRN (Reason: Pain (Scale Score 4-6)) irbesartan 75 mg tablet 75 mg PO DAILY hydrochlorothiazide 25 mg tablet 25 mg PO DAILY ergocalciferol (vitamin D2) 1,250 mcg (50,000 unit) capsule 1,250 mcg PO WEEKLY duloxetine 30 mg capsule,delayed release(DR/EC) 30 mg PO DAILY lubiprostone 24 mcg capsule 24 mcg PO DAILY metoprolol succinate 50 mg tablet extended release 24 hr 50 mg PO DAILY pregabalin [Lyrica] 75 mg capsule 75 mg PO TID clindamycin phosphate [Cleocin] 2 % cream 1 appful vaginal QHS Qty: 40 3RF Rx Instructions: for 3 days estradiol 0.01 % (0.1 mg/gram) cream 1 appful VAGINAL 3XW Qty: 42.5 2RF Follow-up/Referrals: Margarito العراقي MD [Primary Care Provider] -
[2024-10-05] MEDS: ACETAMINOPHEN 500 MG TABLET 1000 MG PO (10:02)
[2024-10-05] MEDS: diazePAM INJ (*CRX) 10 MG/2 ML SYRINGE 5 MG IM (10:02)
== END 2024-10-05 10:58 | disposition home or self-care (01) ==
PROVIDERS: Emergency Provider Physician Assistant; PCP Emergency Medicine
DX: M54.6 Pain in thoracic spine (principal); R94.31 Abnormal electrocardiogram [ECG] [EKG]
CPT/HCPCS: 71046; 71100; 93005; 96372; 99283; A9270; J3360

== ENCOUNTER 2024-11-06 09:06 | Outpatient (CLI) | payer OTHER, SELFPAY ==
--- NOTE | ~2024-11-06 | CT_ITS ---
CT of the Abdomen and Pelvis: Indication: Abdominal pain Technique: 2.5 mm axial scans were obtained through the abdomen and pelvis following intravenous adm inistration of 100 cc of Omnipaque 350. Dose reduction technique was used on this scan by utilizing a utomated exposure control and iterative reconstruction technique. The dose-length product (DLP) was 7 30.49 mGy-cm. Findings: Scans through the lung bases are unremarkable. The liver, spleen, pancreas, adrenals and kidneys are within normal limits. Cholecystectomy clips are present. No evidence of aortic aneurysm. No lymphadenopathy. Extensive stool suggests constipation. Questionable minimal wall thickening diffusely of the large karan wel. No bowel obstruction. Images through the pelvis were performed. Urinary bladder unremarkable. No pelvic mass seen. No ascit es. Impression: Constipation. Questionable mild diffuse large bowel wall thickening. Correlate for infectious/inflamm atory colitis. No other significant findings. Reviewed, dictated and finalized at [facility]. 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 Questionable mild diffuse large bowel wall thickening. Correlate for infectious/inflammatory colitis. No other significant findings.
[2024-11-06 09:25] LABS: Estimated Glomerular Filt Rate > 60
== END 2024-11-06 09:07 | disposition home or self-care (01) ==
LOC: MICIMG 09:07
PROVIDERS: PCP Emergency Medicine; Visit Provider Emergency Medicine
DX: R10.10 Upper abdominal pain, unspecified (principal); K59.00 Constipation, unspecified
CPT/HCPCS: 74177; Q9967

== ENCOUNTER 2024-11-11 21:19 | Emergency (ER) | payer OTHER, SELFPAY ==
--- NOTE | ~2024-11-11 | CT_ITS ---
EXAMINATION: CT abdomen pelvis w con DATE: 11/12/2024 02:24 INDICATION: Abdominal pain. TECHNIQUE: Computed tomography (CT) of the abdomen and pelvis was performed with 100 mL Omnipaque 350 intravenous contrast. Automated exposure control and iterative reconstruction technique were employe d. The dose-length product was 566.51 mGy-cm. COMPARISON: CT abdomen and pelvis 11/06/2024 FINDINGS: The visualized portions of the lung bases demonstrate mild atelectasis. Calcified right hil ar and mediastinal lymph nodes are consistent with old granulomatous disease. No pleural effusion. Th e heart size is normal. No pericardial effusion. The liver is normal. There are changes of cholecyste ctomy. Calcifications in the spleen are consistent with old granulomatous disease. The pancreas, adre nal glands, and kidneys are normal. There is diverticulosis of the colon without evidence of divertic ulitis. There are no dilated loops of bowel. There are changes of appendectomy. There are no patholog ically enlarged lymph nodes. There is no free intraperitoneal fluid. There is mild thoracic spondylos is and moderate lumbar spondylosis. IMPRESSION: 1. No etiology for the patient's symptoms. Reviewed, dictated and finalized at location A. 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
[2024-11-11 21:21] VITALS: BP 124/67; PULSE 92; RESP 17; TEMP 36.3; O2SAT 99
--- NOTE | 2024-11-11 22:08 | PC.NURSE ---
pt visitor to triage desk asking for patient to get some pain control. this rn stated patient would need to wait to be seen by a provider before medication administration to given. this rn asked if nonpharmacological intervention such as an ice pack could be useful. pt visitor asked for ice pack and heated blanket at this time to help with patient pain.
[2024-11-12] VITALS: BP 112/66; PULSE 85; RESP 17; O2SAT 95
[2024-11-12 00:40] LABS: Basophils Absolute Auto 0.1 K/mm3 (0.0-0.1); Basophils Percent Auto 0.4 % (0.2-1.2); Eosinophils Absolute Auto 0.2 K/mm3 (0-0.3); Eosinophils Percent Auto 1.7 % (0-4.4); Hematocrit 40.3 % (37.0-47.0); Hemoglobin 13.7 g/dL (12.0-15.0); Immature Granulocyte Absolute 0.04 K/mm3 (0.00-0.031); Immature Granulocyte Percent A 0.3 % (0-0.5); Lymphocytes Absolute Auto 2.88 K/mm3 (0.9-3.2); Lymphocytes Percent Auto 23.7 % (18.3-44.2); Mean Corpuscular Hemoglobin 32.3 pg (26-34); Mean Platelet Volume 10.2 fl (7.4-10.4); Monocytes Percent Auto 8.5 % (2.6-8.5); Neutrophils Percent Auto 65.4 % (45.5-73.1); Platelet Count Result 278 k/mm3 (150-375); Red Blood Count 4.24 M/mm3 (4.2-5.4); Red Cell Distribution Width 12.9 % (11.5-14.5); White Blood Count 12.2 K/mm3 (4.5-10.0)
[2024-11-12 01:01] VITALS: BP 96/62
[2024-11-12 01:43] LABS: Alanine Aminotransferase 15 U/L (6-35); Albumin Level 3.9 g/dL (3.5-5.1); Alkaline Phosphatase 210 U/L (38-126); Anion Gap 1 mmol/L (4-12); Aspartate Amino Transferase 24 U/L (14-36); Bilirubin,Total 0.3 mg/dL (0.2-1.3); Blood Urea Nitrogen 20 mg/dL (7-17); Calcium 9.1 mg/dL (8.4-10.2); Carbon Dioxide 31 mmol/L (22-30); Chloride 105 mmol/L (98-107); Estimated Glomerular Filt Rate > 60; Glucose 92 mg/dL (65-110); Lipase 112 U/L (23-300); Potassium 3.6 mmol/L (3.4-5.0); Sodium 137 mmol/L (137-145)
[2024-11-12] MEDS: SODIUM CHLORIDE 0.9% IV 1,000 ML 999 ML IV CONT (02:43)
[2024-11-12] MEDS: MORPHINE SULFATE (*CRX) 2 MG/ML INJ IV PUSH (02:43)
[2024-11-12] MEDS: ONDANSETRON INJ 4 MG/2 ML VIAL IV PUSH (02:43)
--- NOTE | 2024-11-12 03:45 | ED.ABDPAIN ---
HPI - Abdominal Pain General Chief Complaint: Abdominal Pain Stated Complaint: abdominal pain Time Seen by Provider: 11/12/24 00:46 History of Present Illness HPI narrative: Patient is a 59-year-old female who presents to the emergency department this evening complaining of abdominal pain for the past 3 weeks. Patient states that she had a CT scan performed approximately 1 week ago and that she was told that she has some inflammation in her colon and that she is constipated. Patient states that the abdominal pain has persisted and feels as though it has worsened. She denies any vomiting episodes states that she does feel nauseous at times. Admits that she did have a bowel movement this morning which was normal. She is denying any urinary symptoms including dysuria or hematuria denies any chest pain or shortness of breath. She also denies any fevers or chills at home. No additional symptoms or concerns at this time. Related Data Home Medications ?Medication ?Instructions ?Recorded ?Confirmed ?Last Taken ?Type atorvastatin 20 mg tablet 20 mg PO DAILY 09/21/21 01/04/24 Unknown History duloxetine 30 mg capsule,delayed 30 mg PO DAILY 09/21/21 01/04/24 Unknown History release ergocalciferol (vitamin D2) 1,250 1,250 mcg PO WEEKLY 09/21/21 01/04/24 Unknown History mcg (50,000 unit) capsule hydrochlorothiazide 25 mg tablet 25 mg PO DAILY 09/21/21 01/04/24 Unknown History hydrocodone 5 mg-acetaminophen 325 1 tablet PO PRN PRN Pain (Scale 09/21/21 01/04/24 Unknown History mg tablet Score 4-6) irbesartan 75 mg tablet 75 mg PO DAILY 09/21/21 01/04/24 Unknown History lubiprostone 24 mcg capsule 24 mcg PO DAILY 09/21/21 01/04/24 Unknown History ropinirole 1 mg tablet 1 mg PO DAILY 09/21/21 01/04/24 Unknown History metoprolol succinate 50 mg 50 mg PO DAILY 12/29/22 01/04/24 Unknown History tablet,extended release 24 hr pregabalin 75 mg capsule (Lyrica) 75 mg PO TID 12/29/22 01/04/24 Unknown History Allergies Allergy/AdvReac Type Severity Reaction Status Date / Time ciprofloxacin Allergy Intermediate Dyspnea / Verified 11/11/24 21:25 SOB metronidazole (From Flagyl) Allergy Intermediate Dyspnea / Verified 11/11/24 21:25 SOB codeine Allergy Mild NAUSEA AND Verified 11/11/24 21:25 VOMITING, ITCHING amlodipine AdvReac Intermediate Hypotension Verified 11/11/24 21:25 Review of Systems Review of Systems: All systems are reviewed and are negative unless stated otherwise in the HPI. [facility] Past Medical History Medical History Screening mammogram, encounter for Depression Osteoporosis Fracture of right forearm Anxiety Elevated lipids Restless leg syndrome Fibromyalgia Arthritis GERD (gastroesophageal reflux disease) Hypertension Surgical History Surgical History History of cholecystectomy (~2013) History of appendectomy (~2006) H/O: hysterectomy (~2008) lscope hysterectomy for endometriosis Previous section 1982 1988 1991 Family History Family History Sibling Diabetes mellitus sister Hypertension sister x2 Father Acute myocardial infarction Other Cerebrovascular accident paternal aunt Mother Malignant tumor of pharynx Social History Social History Smoking packs per day: 0.5 Smoking cigarettes per day: 10.0 Smoking status: Current every day smoker Tobacco type: cigarettes Second hand tobacco smoke exposure: Yes Alcohol intake: current Drinks per week: 5 Alcohol use details: social Substance use: never Substance use type: does not use Do You Feel Safe in your Home?: Yes Living arrangements: other Additional living arrangements comments: Occupation/Education: retired 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 HEENT: PERRL, no rhinorrhea, no post nasal drip, oropharynx clear. Neck: Trachea midline, no JVD, no lymphadenopathy. Cardiovascular: Regular rate and rhythm, no murmurs, rubs or gallops, no peripheral edema. Respiratory: Clear to auscultation bilaterally, no tachypnea, no wheezing, no rhonchi, no rubs, no respiratory distress. Abdomen: Soft, nontender, nondistended, no rebound, no guarding, no peritoneal signs. Musculoskeletal: No joint swelling or deformity, normal muscle tone. Skin: No rashes or petechia, no signs of infection. Psychiatric: Alert and oriented, normal behavior and judgment for situation. Neurological: Alert and oriented to person, place, and time. Follows all commands. No focal deficits, speech is clear and fluent. Course Vital Signs Vital signs: Vital Signs Temperature 97.4 F L 11/11/24 21:21 Pulse Rate 92 11/11/24 21:21 Respiratory Rate 17 11/11/24 21:21 Blood Pressure 124/67 11/11/24 21:21 Pulse Oximetry 99 11/11/24 21:21 Oxygen Delivery Room Air 11/11/24 21:21 Temperature 97.4 F L 11/11/24 21:21 Pulse Rate 82 11/12/24 04:01 Respiratory Rate 15 11/12/24 04:01 Blood Pressure 123/81 11/12/24 04:01 Pulse Oximetry 96 11/12/24 04:01 Oxygen Delivery Room Air 11/11/24 21:21 MDM - Abdominal Pain MDM Narrative Medical decision making narrative: The patient was evaluated by myself in the emergency department. History is obtained from patient who is an independent historian and physical exam was performed. External medical records were reviewed at this time. IV was established and pertinent tests were ordered. Per chart review, patient did have a CT abdomen and pelvis with IV contrast performed [facility] imaging [place] on November 06, 2024 revealing constipation with a questionable mild diffuse large bowel wall thickening which could be related to infectious / inflammatory colitis. Patient was administered 4 mg of IV Zofran, 2 mg IV morphine and 1 L IV fluid bolus with normal saline. Laboratory results obtained revealing a leukocytosis of 12.2, alkaline phosphatase of 210 otherwise unremarkable. Imaging studies obtained included CT abdomen pelvis with IV contrast which was independently interpreted by me revealing no acute process, which is pending final radiology interpretation. Differential diagnosis considerations include constipation, bowel obstruction, gastroenteritis, appendicitis, cholecystitis pancreatitis. Comorbidities impacting this visit include none. I have evaluated and discussed social determinants of health with the patient that could potentially impact subsequent diagnosis and treatment plans. On repeat assessment of the patient, reevaluation revealed that the patient is doing well and is in no acute distress. Patient symptoms have improved since she arrived to our emergency department. Repeat vital signs were all reviewed and noted to be stable. Differential diagnosis and treatment plan were discussed with the patient at bedside. Patient agrees with discussion and after shared medical decision making agrees with discharge. All questions were answered to the patient's satisfaction. Patient will follow up with GI in 3-5 days. Patient was provided with strict return precautions and instructed to return to the emergency department if any new or worsening symptoms develop. The patient was discharged in stable condition. Lab Data 11/12/24 00:02 11/12/24 00:02 Labs: Lab Results 11/12/24 11/12/24 Range/Units 00:02 03:45 WBC 12.2 H (4.5-10.0) K/mm3 RBC 4.24 (4.2-5.4) M/mm3 Hgb 13.7 (12.0-15.0) g/dL Hct 40.3 (37.0-47.0) % MCV 95.0 (80-100) fl MCH 32.3 (26-34) pg MCHC 34.0 (32-36) g/dl RDW 12.9 (11.5-14.5) % Plt Count 278 (150-375) k/mm3 MPV 10.2 (7.4-10.4) fl Immature Gran % (Auto) 0.3 (0-0.5) % Neut % (Auto) 65.4 (45.5-73.1) % Lymph % (Auto) 23.7 (18.3-44.2) % Bureau % (Auto) 8.5 (2.6-8.5) % Eos % (Auto) 1.7 (0-4.4) % Baso % (Auto) 0.4 (0.2-1.2) % Lymph # (Auto) 2.88 (0.9-3.2) K/mm3 Bureau # (Auto) 1.0 H (0.1-0.6) K/mm3 Eos # (Auto) 0.2 (0-0.3) K/mm3 Baso # (Auto) 0.1 (0.0-0.1) K/mm3 Abs Immat Gran (auto) 0.04 H (0.00-0.031) K/mm3 Absolute Neuts (auto) 8.0 H (1.3-6.7) K/mm3 Absolute Nucleated RBC 0.000 (0.0-0.012) K/mm3 Nucleated RBC % 0.0 (0.0-0.2) % Sodium 137 (137-145) mmol/L Potassium 3.6 (3.4-5.0) mmol/L Chloride 105 (98-107) mmol/L Carbon Dioxide 31 H (22-30) mmol/L Anion Gap 1 L (4-12) mmol/L BUN 20 H (7-17) mg/dL Creatinine 0.70 (0.7-1.0) mg/dL Estim Creat Clear Calc Not Reportable Estimated GFR > 60 (59 - ) Glucose 92 (65-110) mg/dL Calcium 9.1 (8.4-10.2) mg/dL Total Bilirubin 0.3 (0.2-1.3) mg/dL AST 24 (14-36) U/L ALT 15 (6-35) U/L Alkaline Phosphatase 210 H (38-126) U/L Total Protein 7.0 (6.3-8.2) g/dL Albumin 3.9 (3.5-5.1) g/dL Lipase 112 (23-300) U/L Urine Color Yellow (Yellow) Urine Appearance Clear (Clear) Urine pH 6.5 (5.0-9.0) Ur Specific [place] > 1.045 H (1.001-1.035) Urine Protein Negative (Negative) mg/dL Urine Glucose (UA) Negative (Negative) mg/dL Urine Ketones Negative (Negative) mg/dL Ur Blood (Man) Negative (Negative) Urine Nitrate Negative (Negative) Urine Bilirubin Negative (Negative) Urine Urobilinogen 0.2 (<2.0) mg/dL Leukocyte Esterase Rfl Negative (Negative) ELVA/UL Discharge Plan Discharge Clinical Impression: Abdominal pain Patient Disposition: Home, Self-Care Condition: Stable Instructions: Antibiotic Form, Abdominal Pain (ED) Additional Instructions: Please follow-up with GI doctor you were wide with today, call tomorrow to set up a follow-up appointment. Return to the emergency department if any new or worsening symptoms develop. Patient Language: Andorran Prescriptions: No Action atorvastatin 20 mg tablet 20 mg PO DAILY ropinirole 1 mg tablet 1 mg PO DAILY hydrocodone-acetaminophen 5-325 mg tablet 1 tablet PO PRN PRN (Reason: Pain (Scale Score 4-6)) irbesartan 75 mg tablet 75 mg PO DAILY hydrochlorothiazide 25 mg tablet 25 mg PO DAILY ergocalciferol (vitamin D2) 1,250 mcg (50,000 unit) capsule 1,250 mcg PO WEEKLY duloxetine 30 mg capsule,delayed release(DR/EC) 30 mg PO DAILY lubiprostone 24 mcg capsule 24 mcg PO DAILY metoprolol succinate 50 mg tablet extended release 24 hr 50 mg PO DAILY pregabalin [Lyrica] 75 mg capsule 75 mg PO TID clindamycin phosphate [Cleocin] 2 % cream 1 appful vaginal QHS Qty: 40 3RF Rx Instructions: for 3 days cyclobenzaprine 10 mg tablet 10 mg PO TID PRN (Reason: muscle spasm) Qty: 14 0RF lidocaine 5 % adhesive patch,medicated 1 patch topical DAILY PRN (Reason: pain) Qty: 15 0RF Rx Instructions: leave on most painful area for up to 12 hrs estradiol 0.01 % (0.1 mg/gram) cream 1 appful VAGINAL 3XW Qty: 42.5 2RF Follow-up/Referrals: Margarito العراقي MD [Primary Care Provider] - Bishop Hurst MD [Physician] - 3 Days Time of Disposition: 04:35
[2024-11-12 03:47] VITALS: BP 125/73; O2SAT 94
[2024-11-12 04:00] LABS: Add Urine Microscopic? NO; Appearance Urine Clear (Clear); Bilirubin Urine Negative (Negative); Blood Urine Negative (Negative); Color Urine Yellow (Yellow); Glucose Urine UA Negative (Negative); Ketones Urine Negative (Negative); Leukocyte Esterase Ur Negative LEU/UL (Negative); Nitrate Urine Negative (Negative); Protein Urine Negative (Negative); Specific Grav Ur > 1.045 (1.001-1.035); Urobilinogen Urine 0.2 mg/dL (<2.0); pH Urine 6.5 (5.0-9.0)
[2024-11-12 04:01] VITALS: BP 123/81; PULSE 82; RESP 15; O2SAT 96
--- OUTSIDE RECORDS SUMMARY | 2024-11-19 04:47 | XMS_ITS | Encounter Summary ---
Author Organization [employer] Care Team Providers Care Balance Staff Inspector Name Role Phone Mendoza Parker MD Primary Care Provider Encounter Details Date Type Department Care Team (Latest Contact Info) Description 03/22/2023 Travel Social History Tobacco Use Types Packs/Day Years Used Date Smoking Tobacco: Every Day Cigarettes 1 5 Smokeless Tobacco: Never Comments No Sex and Gender Information Value Date Recorded Sex Assigned at Not on file Legal Sex Female 11:08 PM CDT Gender Identity Not on file Sexual Orientation Not on file COVID-19 Exposure Response Date Recorded In the last 10 days, have yo u been in contact with someone who was confirmed or suspected to have Coronavirus/COVID-19? No / Unsure 03/22/2023 9:41 AM CDT documented as of this encounter Plan of Treatment Not on file documented as of this encounter Visit Diagnoses Not on filedocumented in this encounter Additional Health Concerns Infection Onset Date Last Indicated Resolved Time COVID - 19 03/22/2023 03/22/2023 04/01/2023 12:1 6 AM CDT documented as of this encounter Care Teams Balance Staff Inspector Relationship Specialty Start Date End Date Mendoza Parker MD [address] [place] [address] PCP - General Internal Medicine 03/16/16 documented as of this encounter
--- OUTSIDE RECORDS SUMMARY | 2024-11-19 04:47 | XMS_ITS | Encounter Summary ---
Author Organization [facility] Address [address] [facility] [place] [address] Care Team Providers Care Manager Philosophy Name Role Phone Mendoza Parker MD Primary Care Provider [phone] Encounter Details Date Type Department Care Team (Late st Contact Info) Description 12/26/2013 Hospital Outpatient Visit Historic [facility] [address] [place] [address] Cyndi Amaya MD [address] [facility] [address] [place] [id number] Discharge Disposition: Home or Self Care Social History Tobacco Use Types Packs/Day Years Used Date Smoking Tobacco: Never Assessed Sex and Gender Information Value Date Recorded Sex Assigned at Not on file Gender Identity Not on file Sexual Orientation Not on file documented as of this encounter Plan of Treatment Not on file documented as of this encounter Visit Diagnoses Not on filedocumented in this encounter Care Teams Manager Philosophy Relationship Specialty Start Date End Date Mendoza Parker MD PCP - General 01/24/13 documented as of this encounter
--- OUTSIDE RECORDS SUMMARY | 2024-11-19 04:47 | XMS_ITS | Encounter Summary ---
Author Organization [facility] Address [address] [place] [address] Phone Care Team Providers Care Die Cast Patternmaker Name Role Phone Mendoza Parker MD Primary Care Provider Reason for Visit * Reason Comments Fatigue Encounter Details Date Type Department Care Team ([facility] Contact Info) Description 03/22/2023 9:45 AM CDT - 03/22/2023 11:44 AM CDT Emergency [facility] Emergency [address] [place] [address] Anna Rdz, COMMUNICATION SPEC, MARKETING DEVELOPMENT REPRESENTATIVE [address] [place] [address] Malaise and fatigue Discharge Disposition: Discharged to home or Selfcare Social History Tobacco Use Types Packs/Day Years Used Date Smoking Tobacco: Every Day Cigarettes 1 5 Smokeless Tobacco: Never Tobacco Cessation:Ready to Q uit: Not Asked; Counseling Given: Not Answered Comments No Sex and Gender Information Value [...] AM CDT documented as of this encounter Last Filed Vital Signs Vital Sign Reading Time Taken Comments Blood Pressure 160/91 03/22/2023 9:43 AM CDT Pulse 67 03/22/2023 11:43 AM CDT Temperature 36.2 ??C (97.1 ??F) 03/22/2023 9:43 AM CD T Respiratory Rate 18 03/22/2023 9:43 AM CDT Oxygen Saturation 99% 03/22/2023 11:43 AM CDT Inhaled Oxygen Concentration - - Weight 74.8 kg (165 lb) 03/22/2023 9:43 AM CDT Height 149.9 cm (4' 11 ) 03/22/2023 9:43 AM CDT Body Mass Index 33.33 03/22/2023 9:43 AM CDT documented in this encounter Discharge Instructions * Discharge Instructions* Anna Rdz APRN, CNP - 03/22/2023 11:32 AM CDT Follow-up with primary care physician. Return to ED with worsening symptoms. * Attachments The following attachments cannot be sent through Care Everywhere. * Deconditioning (Andorran) documented in this encounter Medications at Time of Discharge citalopram (CELEXA) 20 MG Tablet Take 40 mg by mouth daily. DULoxetine (CYMBALTA) [address] Particles Take 30 mg by mouth daily. gabapentin (NEURONTIN) 300 MG Capsule meclizine (ANTIVERT) 25 MG Tablet Take 1 Tab by mouth 3 times daily as needed for Dizziness. 50 Tab 0 03/16/2016 nebivolol (BYSTOLIC) 5 MG Tablet Take 7.5 mg by mouth daily. omeprazole (PRILOSEC) 40 MG CAPSULE DELAYED RELEASE Take 40 mg by mouth daily. pregabalin (LYRICA) 75 MG Capsule Take 75 mg by mouth 2 times daily. Teriparatide, Recombinant, (FORTEO SC) by Subcutaneous route. documented as of this encounter ED Notes * Zohreh Wilson RN - 03/22/2023 11:44 AM CDT Patient discharged. Discharge instructions and patient educational material reviewed with patient; questions and concerns addressed; patient verbalizes understanding, using teach back. Patient discharged per ambualtory mode with self as responsible alliance party. * Anna Rdz APRN, MARKETING DEVELOPMENT REPRESENTATIVE - 03/22/2023 10:17 AM CDT Chief Complaint Patient presents with ??? Fatigue Shivani Betancur is a 57 y.o. female who presents to the ED c/o increased fatigue for the past few weeks. Patient states that she has been sleeping almost 14 hours a day but still feels exhausted. States that she has experienced some mild intermittent shortness of breath. She denies chest pain. She reports a infrequent nonproductive cough. Denies recent fevers. States that she is been watching her SpO2 at home, and noticed when she lays down it decreases to 93%. She denies any past history respiratory issues. SpO2 upon ED arrival is 100% on room air. Patient states that she did take an at-home COVID test yesterday that was negative. She reports past medical history of hypertension, fibromyalgia, migraine headaches. Her respirations are unlabored; she does not appear in acute distress. Past Medical History Positives No date: Anxiety disorder Comment: NOS No date: Autoimmune disease (HCC) No date: Depression No date: Fracture Comment: vertabrae No date: Hypertension No date: Irritable bowel syndrome No date: Migraine headache No date: Osteoporosis No current facility-administered medications for this encounter. Current Outpatient Medications Medication Sig Dispense Refill ??? citalopram (CELEXA) 20 MG Tablet Take 40 mg by mouth daily. ??? DULoxetine (CYMBALTA) [address] Particles Take 30 mg by mouth daily. ??? gabapentin (NEURONTIN) 300 MG Capsule ??? meclizine (ANTIVERT) 25 MG Tablet Take 1 Tab by mouth 3 times daily as needed for Dizziness. 50Tab 0 ??? nebivolol (BYSTOLIC) 5 MG Tablet Take 7.5 mg by mouth daily. ??? omeprazole (PRILOSEC) 40 MG CAPSULE DELAYED RELEASE Take 40 mg by mouth daily. ??? pregabalin (LYRICA) 75 MG Capsule Take 75 mg by mouth 2 times daily. ??? Teriparatide, Recombinant, (FORTEO SC) by Subcutaneous route. Allergies Allergen Reactions ??? Acetaminophen-Codeine Other (see Comments) Nausea, vomiting, diarrhea ??? Ciprofloxacin Other (see Comments) Asthma/shortness of breath/put patient in ER ??? Flagyl [Metronidazole] Other (see Comments) Asthma/shortness of breath/put patient in ER Past Medical History Positives Diagnosis Date ??? Anxiety disorder NOS ??? Autoimmune disease (HCC) ??? Depression ??? Fracture vertabrae ??? Hypertension ??? Irritable bowel syndrome ??? Migraine headache ??? Osteoporosis Past Surgical History: Procedure Laterality Date ??? APPENDECTOMY ??? SECTION 1982, 1988, 1991 ??? HYSTERECTOMY 2008 ??? OTHER SURGICAL HISTORY hemorrhoidectomy ??? OTHER SURGICAL HISTORY lap excision of endometriotic tissue from the small intestine Social History Socioeconomic History ??? Marital status: Spouse name: Not on file ??? Number of children: Not on file ??? Years of education: Not on file ??? Highest education level: Not on file Occupational History ??? Not on file Tobacco Use ??? Smoking status: Every Day Packs/day: 1.00 Years: 5.00 Pack years: 5.00 Types: Cigarettes ??? Smokeless tobacco: Never Substance and Sexual Activity ??? Alcohol use: Not on file ??? Drug use: Not on file ??? Sexual activity: Not on file Other Topics Concern ??? Not on file Social History Narrative ??? Not on file BP (!) 160/91 Pulse 73 Temp 97.1 ??F (36.2 ??C) (Tympanic) Resp 18 Ht 4' 11 (1.499 m) Wt165 lb (74.8 kg) SpO2 100% BMI 33.33 kg/m?? Review of Systems Constitutional: Positive for fatigue. Negative for chills and fever. HENT: Negative for congestion, ear pain, rhinorrhea and sore throat. Eyes: Negative for discharge. Respiratory: Positive for shortness of breath. Negative for cough, chest tightness and wheezing. Cardiovascular: Negative for chest pain and palpitations. Gastrointestinal: Negative for abdominal pain, diarrhea, nausea and vomiting. Genitourinary: Negative for difficulty urinating and menstrual problem. Musculoskeletal: Negative for arthralgias and myalgias. Skin: Negative for rash and wound. Neurological: Positive for weakness. Negative for dizziness, syncope, numbness and headaches. All other systems reviewed and are negative. Physical Exam Vitals and nursing note reviewed. Constitutional: General: She is not in acute distress. Appearance: She is well-developed. She is not diaphoretic. HENT: Head: Normocephalic and atraumatic. Right Ear: External ear normal. Left Ear: External ear normal. Eyes: Conjunctiva/sclera: Conjunctivae normal. Pupils: Pupils are equal, round, and reactive to light. Neck: Trachea: No tracheal deviation. Cardiovascular: Rate and Rhythm: Normal rate and regular rhythm. Pulses: Normal pulses. Heart sounds: Normal heart sounds. No murmur heard. Pulmonary: Effort: Pulmonary effort is normal. No respiratory distress. Breath sounds: Normal breath sounds. No wheezing or rales. Abdominal: General: Bowel sounds are normal. There is no distension. Palpations: Abdomen is soft. Tenderness: There is no abdominal tenderness. There is no guarding or rebound. Musculoskeletal: General: Normal range of motion. Cervical back: Normal range of motion. Skin: General: Skin is warm and dry. Capillary Refill: Capillary refill takes less than 2 seconds. Neurological: Mental Status: She is alert and oriented to person, place, and time. Cranial Nerves: No cranial nerve deficit. Procedures Imaging Results XR CHEST SINGLE VIEW (Final result) Result time 03/22/23 11:04:19 Final result by Timi Goode DO (03/22/23 11:04:19) Impression: IMPRESSION: No acute cardiopulmonary abnormality. Narrative: EXAM DESCRIPTION: XR CHEST SINGLE VIEW REASON FOR STUDY: increased fatigue, SOB x 1-2 wks increased fatigue, SOB x 1-2 wks TECHNIQUE: One radiographic view of the chest acquired. COMPARISON: 03/16/2016 FINDINGS: The heart, mediastinum, and pulmonary vasculature are grossly stable. There are minimal atherosclerotic changes of the aorta. There is no definite evidence of a pneumothorax. There is no definite evidence of focal consolidation or pleural effusion. There is stable elevation of the right hemidiaphragm. There are degenerative changes of the spine. THIS IS AN ELECTRONICALLY VERIFIED FINAL REPORT 03/22/2023 11:01 AM - Electronically signed by Timi Goode D.O. PS: PS Report ID: [id number] Reading Location: [id number] Labs Reviewed CMP (COMPREHENSIVE METABOLIC PANEL) - Abnormal; Notable for the following components: Result Value GLUCOSE 103 (*) CREATININE, BLOOD 0.54 (*) BUN/CREATININE RATIO 30 (*) TOTAL PROTEIN 5.9 (*) ALKALINE PHOSPHATASE 127 (*) All other components within normal limits CBC WITH AUTO DIFFERENTIAL - Abnormal; Notable for the following components: ABSOLUTE LYMPHOCYTES 3.22 (*) All other components within normal limits SARS-COV-2 BY MOLECULAR - Normal Narrative: This test has been authorized by the FDA under an Emergency Use Authorization (EUA) only. Negative results should be treated as presumptive and, if inconsistent with clinical signs and symptoms or necessary for patient management, the patient should be tested with an alternative molecularassay. Negative results do not preclude SARS-CoV-2 infection or any other respiratory pathogen. Additional information for Clinicians can be found at: https://www.fda.gov/media/612647/download Additional information for Patients can be found at: https://www.fda.gov/media/236778/download COMPLETE BLOOD COUNT (CBC) WITH DIFF Narrative: The following orders were created for panel order CBC with Diff [id number]. Procedure Abnormality Status --------- ------ CBC with Auto Differential[[id number]] Abnormal Final result Please view results for these tests on the individual orders. Labs Reviewed CMP (COMPREHENSIVE METABOLIC PANEL) - Abnormal; Notable for the following components: Result Value GLUCOSE 103 (*) CREATININE, BLOOD 0.54 (*) BUN/CREATININE RATIO 30 (*) TOTAL PROTEIN 5.9 (*) ALKALINE PHOSPHATASE 127 (*) All other components within normal limits CBC WITH AUTO DIFFERENTIAL - Abnormal; Notable for the following components: ABSOLUTE LYMPHOCYTES 3.22 (*) All other components within normal limits SARS-COV-2 BY MOLECULAR - Normal Narrative: This test has been authorized by the FDA under an Emergency Use Authorization (EUA) only. Negative results should be treated as presumptive and, if inconsistent with clinical signs and symptoms or necessary for patient management, the patient should be tested with an alternative molecularassay. Negative results do not preclude SARS-CoV-2 infection or any other respiratory pathogen. Additional information for Clinicians can be found at: https://www.fda.gov/media/848922/download Additional information for Patients can be found at: https://www.fda.gov/media/141269/download COMPLETE BLOOD COUNT (CBC) WITH DIFF Narrative: The following orders were created for panel order CBC with Diff [id number]. Procedure Abnormality Status --------- ------ CBC with Auto Differential[[id number]] Abnormal Final result Please view results for these tests on the individual orders. XR CHEST SINGLE VIEW Final Result IMPRESSION: No acute cardiopulmonary abnormality. CBC with Diff [id number] Final Result Comprehensive Metabolic Panel (Cmp) [id number] Final Result Medical Decision Making Amount and/or Complexity of Data Reviewed Labs: ordered. Radiology: ordered. Clinical Impression 1. Malaise and fatigue Disposition: Discharged Patient presents with generalized malaise and fatigue for the past few weeks. States that she felt mild shortness of breath this morning. Differential diagnosis of shortness of breath includes common etiologies such as pneumonia, PE, aspiration, CHF, ACS, asthma, COPD, arrhythmia and anxiety as well as the less common etiology such as metabolic acidosis, ARDS, interstitial lung disease, pneumothorax, anemia, methemoglobinemia... Chest x-ray is unremarkable. Covid is negative. Labs are relatively unremarkable. Patient was instructed to follow-up with PCP. Lungs clear to auscultation, no tachypnea, no distress. Patient has been advised if she becomes short of breath again to immediately return to the ED. she displays understanding and is alert and oriented. The patient remained stable throughout their ED stay. My clinical impression was discussed with thepatient/family. Labs and radiology results were reviewed with them. I gave them the opportunity to ask questions, and addressed them as completely as possible given the information available at present. The therapeutic plan was discussed, advised to take medications as instructed, instructions weregiven and the importance of primary care follow up was stressed and encouraged. The patient/family voiced understanding of the plan, indications to return, and the need for follow up. Cosigned by Franklyn Cárdenas MD at 03/22/2023 1:03 PM CDT * Chanel Rosario RN - 03/22/2023 9:43 AM CDT Pt arrives to triage complaining of fatigue that has been going on for about a week. Pt reports that she has been sleeping 14 hours a day and still is exhausted. Pt reports that she has been watching her SPO2 at home and when she lays down it reads 93%. Pt denies any respiratory issues in past history. SPO2 in triage 100%. Pt denies chest pain. Pt took an at home covid test yesterday and it wasnegative. documented in this encounter Plan of Treatment Not on file documented as of this encounter Procedures Procedure Name Priority Date/Time Associated Diagnosis Comments XR CHEST SINGLE VIEW STAT 03/22/2023 10:49 AM CDT CBC WITH AUTO DIFFERENTIAL STAT 03/22/2023 10:24 AM CDT CMP (COMPREHENSIVE METABOLIC PANEL) STAT 03/22/2023 10:24 AM CDT COMPLETE BLOOD COUNT (CBC) WITH DIFF STAT 03/22/2023 10:24 AM CDT SARS-COV-2 BY MOLECULAR STAT 03/22/2023 10:20 AM CDT documented in this encounter Results * XR CHEST SINGLE VIEW (03/22/2023 10:49 AM CDT) Anatomical Region Laterality Modality Chest N/A Digital Radiogra phy 03/22/2023 11:0 1 AM CDT Impressions 03/22/2023 11:04 AM CDT IMPRESSION: ?? No acute cardiopulmonary abnormality. Narrative 03/22/2023 11:04 AM CDT EXAM DESCRIPTION: ?? XR CHEST SINGLE VIEW REASON FOR STUDY: ?? increased fatigue, SOB x 1-2 wks ?? increased fatigue, SOB x 1-2 wks ? TECHNIQUE: ?? One ??radiographic view of the chest acquired. COMPARISON: ?? 03/16/2016 FINDINGS: The heart, mediastinum, and pulmonary vasculature are grossly stable. ??There are minimal atherosclerotic changes of the aorta. ??There is no definite evidence of a pneumothorax. ??There is no definite evidence of focal consolidation or pleural effusion. ?? There is stable elevation of the right hemidiaphragm. There are degenerative changes of the spine. THIS IS AN ELECTRONICALLY VERIFIED FINAL REPORT 03/22/2023 11:01 AM - Electronically signed by ??Timi Goode D.O. PS: PS D: ??03/22/2023 11:01 AM T: ??03/22/2023 11:01 AM Report ID: [id number] Reading Location: ??[id number] Procedure Note Timi Goode DO - 03/22/2023 EXAM DESCRIPTION: XR CHEST SINGLE VIEW REASON FOR STUDY: increased fatigue, SOB x 1-2 wks increased fatigue, SOB x 1-2 wks TECHNIQUE: One radiographic view of the chest acquired. COMPARISON: 03/16/2016 FINDINGS: The heart, mediastinum, and pulmonary vasculature are grossly stable. There are minimal atherosclerotic changes of the aorta. There is no definite evidence of a pneumothorax. There is no definite evidence of focal consolidation or pleural effusion. There is stable elevation of the right hemidiaphragm. There are degenerative changes of the spine. THIS IS AN ELECTRONICALLY VERIFIED FINAL REPORT 03/22/2023 11:01 AM - Electronically signed by Timi Goode D.O. PS: PS Report ID: [id number] Reading Location: [id number] IMPRESSION: No acute cardiopulmonary abnormality. us Anna Rdz COMMUNICATION SPEC, MARKETING DEVELOPMENT REPRESENTATIVE IMG DIAGNOSTIC ORDERA BLES Final Result * (ABNORMAL) CBC with Auto Differential (03/22/2023 10:24 AM CDT) WBC 9.41 4.00 - 12.00 10(3)/mcL 03/22/2023 10:38 AM CDT [facility] RBC 4.17 3.80 - 5.30 10(6)/mcL 03/22/2023 10:38 AM CDT [facility] HEMOGLOBIN (HGB) 12.9 12.0 - 15.8 g/dL 03/22/2023 10:38 AM CDT [facility] HEMATOCRIT (HCT) 39.1 36.0 - 47.0 % 03/22/2023 10:38 AM CDT [facility] MCV 93.8 82.0 - 96.0 fL 03/22/2023 10:38 AM CDT [facility] MCH 30.9 26.0 - 34.0 pg 03/22/2023 10:38 AM CDT [facility] MCHC 33.0 31.0 - 36.0 g/dL 03/22/2023 10:38 AM CDT [facility] PLATELET COUNT 268 140 - 440 10(3)/[facility] 03/22/2023 10:38 AM CDT [facility] RDW 13.2 11.8 - 15.5 % 03/22/2023 10:38 AM CDT [facility] MPV 10.0 9.7 - 12.4 fL 03/22/2023 10:38 AM CDT [facility] NEUTROPHILS 56.8 47.0 - 73.0 % 03/22/2023 10:38 AM CDT [facility] LYMPHOCYTES 34.2 18.0 - 42.0 % 03/22/2023 10:38 AM CDT [facility] MONOCYTES 6.7 4.0 - 12.0 % 03/22/2023 10:38 AM CDT [facility] EOSINOPHILS 1.8 0.0 - 5.0 % 03/22/2023 10:38 AM CDT [facility] BASOPHILS 0.5 0.0 - 1.0 % 03/22/2023 10:38 AM CDT [facility] ABSOLUTE NEUTROPHILS 5.34 1.60 - 7.70 10(3)/[facility] 03/22/2023 10:38 AM CDT [facility] ABSOLUTE LYMPHOCYTES 3.22(H) 1.30 - 3.20 10(3)/[facility] 03/22/2023 10:38 AM CDT [facility] ABSOLUTE MONOCYTES 0.63 0.20 - 1.00 10(3)/[facility] 03/22/2023 10:38 AM CDT [facility] ABSOLUTE EOSINOPHIL 0.17 0.00 - 0.40 10(3)/[facility] 03/22/2023 10:38 AM CDT [facility] ABSOLUTE BASOPHILS 0.05 0.00 - 0.10 10(3)/[facility] 03/22/2023 10:38 AM CDT [facility] NRBC PER 100 WBC 0 03/22/20 10:38 AM CDT [facility] Blood Venipuncture / Unknown 03/22/2023 10:24 AM CDT 03/22/2023 10:34 AM CDT us Anna Rdz COMMUNICATION SPEC, MARKETING DEVELOPMENT REPRESENTATIVE HEMATOLOGY ORDERABLES Final Result [facility] [address] [place] [address] * (ABNORMAL) Comprehensive Metabolic Panel (Cmp) [id number] (03/22/2023 10:24 AM CDT) SODIUM 137 136 - 144 mmol/L 03/22/2023 11:08 AM CDT [facility] POTASSIUM 4.1 3.5 - 5.1 mmol/L 03/22/2023 11:08 AM CDT [facility] CHLORIDE 108 100 - 110 mmol/L 03/22/2023 11:08 AM CDT [facility] CO2, VENOUS 23 22 - 32 mmol/L 03/22/2023 11:08 AM CDT [facility] ANION GAP 10.1 8.0 - 20.0 mmol/L 03/22/2023 11:08 AM CDT [facility] GLUCOSE 103(H) 70 - 99 mg/dL 03/22/2023 11:08 AM [facility] BUN 16 6 - 20 mg/dL 03/22/2023 11:08 AM [facility] CREATININE, BLOOD 0.54(L) 0.60 - 1.10 mg/dL 03/22/2023 11:08 AM [facility] BUN/CREATININE RATIO 30(H) 12 - 20 ratio 03/22/2023 11:08 AM [facility] TOTAL PROTEIN 5.9(L) 6.0 - 8.3 g/dL 03/22/2023 11:08 AM [facility] ALBUMIN 3.7 3.5 - 5.2 g/dL 03/22/2023 11:08 AM [facility] Comment: The colormetric methods used for the determination of Albumin may lead to falsely elevated test results in patients suffering from renal failure or insufficiency due to interference with other proteins. A/G RATIO 1.7 1.0 - 2.0 03/22/2023 11:08 AM [facility] CALCIUM 9.3 8.9 - 10.3 mg/dL 03/22/2023 11:08 AM [facility] T BILI 0.3 <=1.2 mg/dL 03/22/2023 11:08 AM [facility] SGOT (AST) 15 <=32 U/L 03/22/2023 11:08 AM [facility] SGPT (ALT) 15 <=41 U/L 03/22/2023 11:08 AM [facility] ALKALINE PHOSPHATASE 127(H) 35 - 105 U/L 03/22/2023 11:08 AM [facility] GFR, ESTIMATED >60 >=60 03/22/2023 11:08 AM [facility] Comment: Creatinine Clearance is the preferred criteria for selecting drug dose adjustments in renally impaired patients. ??The GFR is provided as additional pertinent clinical information. GFR is reported in mL/min/1.73 sq m. Calculation based on the Chronic Kidney Disease Epidemiology Collaboration (CKD- EPI) equation refit without adjustment for race. GFR, EST. >60 >=60 023 11:08 AM CDT [facility] GFR, EST. NONAFRICAN >60 >=60 03/22/2023 11:08 AM CDT [facility] Blood Venipuncture / Unknown 03/22/2023 10:24 AM CDT 03/22/2023 10:34 AM CDT us Anna Rdz APRN, MARKETING DEVELOPMENT REPRESENTATIVE CHEMISTRY ORDERABLES Final Result [facility] [address] [place] [address] * SARS-COV-2 BY MOLECULAR (03/22/2023 10:20 AM CDT) SARSCOV2 NOT DETECTED (Referenc e Range for this test is Not Detected) [facility] ID NOW 03/22/2023 10:51 AM CDT [facility] Comment:This test was perfor med by a MOLECULAR, NON-PCR method Other NASAL STRUCTURE / Unknown Non-Phlebotomy Collection / Unknown 03/22/2023 10:20 AM CDT 03/22/2023 10:34 AM CDT Narrative [facility] - 03/22/2023 10:51 AM CDT This test has been authorized by the FDA under an Emergency Use Authorization (EUA) only. Negative results should be treated as presumptive and, if inconsistent with clinical signs and symptoms or necessary for patient management, the patient should be tested with an alternative molecular assay. Negative results do not preclude SARS-CoV-2 infection or any other respiratory pathogen. Additional information for Clinicians can be found at: https://www.fda.gov/media/174620/download Additional information for Patients can be found at: https://www.fda.gov/media/156088/download us Anna Rdz APRN, MARKETING DEVELOPMENT REPRESENTATIVE MICROBIOLOGY - GENERA L ORDERABLES Final Result [facility] [address] [place] [address] documented in this encounter Visit Diagnoses Diagnosis Malaise and fatigue- Primary Other malaise and fatigue documented in this encounter Additional Health Concerns Infection Onset Date Last Indicated Resolved Time COVID - 19 03/22/2023 03/22/2023 04/01/2023 12:1 6 AM CDT documented as of this encounter Care Teams Die Cast Patternmaker Relationship Specialty Start Date End Date Mendoza Parker MD [address] [place] [address] PCP - General Internal Medicine 03/16/16 documented as of this encounter
--- OUTSIDE RECORDS SUMMARY | 2024-11-19 04:47 | XMS_ITS | Encounter Summary ---
Author Organization [facility] Address [address] [place] [address] Care Team Providers Care Cash Management Specialist Name Role Phone Mendoza Parker MD Primary Care Provider [phone] Encounter Details Date Type Department Care Team (Late st Contact Info) Description 01/23/2014 Hospital Outpatient Visit Historic [facility] PH[facility]ICAL MEDICINE [address] [place] [address] Cyndi Amaya MD [address] [facility] [address] [place] [id number] Discharge Disposition: Home or Self Care Social [...] on filedocumented in this encounter Care Teams Cash Management Specialist Relationship Specialty Start Date End Date Mendoza Parker MD PCP - General 01/24/13 documented as of this encounter
--- OUTSIDE RECORDS SUMMARY | 2024-11-19 04:47 | XMS_ITS | Referral Summary ---
Author Organization [facility] [employer] Address [address] [place] [address] Care Team Providers Care Terrazzo Worker Apprentice Name Role Phone Mendoza Parker MD Primary Care Provider [phone] Source Comments [facility] [employer],non-owned Affiliates and Associated Physician Practices is amultiple site organization consisting of ambulatory clinics and hospital sitesin [place], [place], [place] and [place]. This disclosure is being madepursuant to the Care Everywhere program and may not contain all information available regarding this patient. Last updated 18.[facility] [employer] Allergies Active Allergy Reactions Criticality Noted Date Comments Ciprofloxacin Anaphylaxis High 01/24/2013 Throat swelling, SOB, Throat swelling, SOB Codeine Nausea Low 01/24/2013 Metronidazole Shortness of Breath High 01/24/2013 Throat swelling Active Problems Problem Noted Date Diagnosed Date Umbilical hernia without obstruction or gangrene 09/04/2015 Gastro-esophageal reflux disease without esophag itis 12/14/2013 Diverticulosis of intestine without perforation or abscess without bleeding 01/24/2013 Abdominal pain 01/24/2013 Ventral hernia without obstruction or gangrene 0 01/24/2013 Resolved Problems Problem Noted Date Diagnosed Date Resolved Date Constipation 04/04/2013 03/20/2018 Overview (02/20/2018): 02/14/2013: ARM: normal sphincter pressurse. RAIR present, cough reflex present. Paradoxical strain but normal balloon expulsion. Hyposensitive to initial sensation. Equivocal for dyssynergic defecation Colonoscopy 2012: diverticulosis 02/2012: nl CBC, ESR, DANI, calcium, ferritin 36, TSH 0.43, vit b12: 508, Vit D 9 Social History Tobacco Use Types Packs/Day Years Used Date Smoking Tobacco: Former Cigarettes Q uit: 11/21/1989 Smokeless Tobacco: Never Alcohol Use Standard Drinks/Week Comments No 0 (1 standard drink = 0.6 oz pur e alcohol) Sex and Gender Information Value Date Recorded Sex Assigned at Not on file Gender Identity Not on file Sexual Orientation Not on file Last Filed Vital Signs Vital Sign Reading Time Taken Comments Blood Pressure 134/90 02/04/2014 10:19 AM CDT Pulse 70 02/04/2014 10:19 AM CDT Temperature 36.4 ??C (97.6 ??F) 02/04/2014 10:19 AM C DT Respiratory Rate 18 02/04/2014 10:19 AM CDT Oxygen Saturation - - Inhaled Oxygen Concentration - - Weight 72.3 kg (159 lb 8 oz) 02/04/2014 10:19 AM CDT Height 152.4 cm (5') 02/04/2014 10:19 AM CDT Body Mass Index 31.15 02/04/2014 10:19 AM CDT Plan of Treatment Not on file Care Teams Terrazzo Worker Apprentice Relationship Specialty Start Date End Date Mendoza Parker MD PCP - General 01/24/13
--- OUTSIDE RECORDS SUMMARY | 2024-11-19 04:47 | XMS_ITS | Encounter Summary ---
Author Organization [facility] Address [address] [place] [address] Care Team Providers Care Admissions Rn Name Role Phone Mendoza Parker MD Primary Care Provider [phone] Encounter Details Date Type Department Care Team (Late st Contact Info) Description 02/04/2014 Hospital Outpatient Visit [facility] Default Department Cyndi Amaya MD [address] [place] [id number] Discharge Disposition: Home or Self Care Social [...] on filedocumented in this encounter Care Teams Admissions Rn Relationship Specialty Start Date End Date Mendoza Parker MD PCP - General 01/24/13 documented as of this encounter
--- OUTSIDE RECORDS SUMMARY | 2024-11-19 04:47 | XMS_ITS | Clinical Summary ---
Author Organization [facility] [employer] Address [address] [place] [address] Care Team Providers Care Blending Plant Operator Name Role Phone Mendoza Parker MD Primary Care Provider [phone] Source Comments [facility] [employer],non-owned Affiliates and Associated Physician Practices is amultiple site organization consisting of ambulatory clinics and hospital sitesin [place], [place], [place] and [place]. This disclosure is being madepursuant to the Care Everywhere program and may not contain all information available regarding this patient. Last updated 18.[facility] [employer] Allergies Active Allergy Reactions Criticality Noted Date [...] 0.43, vit b12: 508, Vit D 9 Family History Medical History Relation Name Comments Heart Disease Father Status: Deceas ed Cancer Mother Throat; Status: Diabetes Sister Relation Name Status Comments Father Mother Sister Social History Tobacco Use Types Packs/Day Years [...] 02/04/2014 10:19 AM CDT Plan of Treatment Health Maintenance Due Date Last Done Comments COLOGUARD (AGES 45-75) - COL ON CA SCREENING 1964 COLON MONITORING 1964 COLONOSCOPY - COLON CA SCREENING 1964 CT COLONOGRAPHY - COLON CA SCREENING 1964 Colorectal Cancer Screening 1964 FIT - COLON CA SCREENING 1964 FLEX SIG - COLON CA SCREENING 1964 LIPID TESTING 1964 MAMMOGRAM 1964 PAP SMEAR 1964 HIV SCREENING 1979 HEPATITIS C SCREENING 09/07/1982 DTAP/TDAP/TD VACCINES (1 - Tdap) 1983 ZOSTER VACCINE (1 of 2) 2014 DEPRESSION SCREENING 11/21/2023 COVID-19 VACCINE ( - 2023-2 5 season) 2024 INFLUENZA VACCINE (#1) 2024 Respiratory Syncytial Virus (RSV) Vaccine Pt: or over 60 yrs (1 - 1-dose 75+ series) 2039 HEPATITIS B VACCINE Aged Out No longe r eligible based on patient's age to complete this topic HIB VACCINE Aged Out No longer eligi ble based on patient's age to complete this topic HPV VACCINE Aged Out No longer eligi ble based on patient's age to complete this topic MENINGOCOCCAL VACCINE Aged Out No maya yary eligible based on patient's age to complete this topic PNEUMOCOCCAL VACCINE Aged Out No long er eligible based on patient's age to complete this topic Care Teams Blending Plant Operator Relationship Specialty Start Date End Date Mendoza Parker MD PCP - General 01/24/13
--- OUTSIDE RECORDS SUMMARY | 2024-11-19 04:47 | XMS_ITS | Encounter Summary ---
Author Organization [facility] Address [address] [place] [address] Care Team Providers Care Buffing And Polishing Wheel Repairer Name Role Phone Mendoza Parker MD Primary Care Provider [phone]- [phone] Encounter Details Date Type Department Care Team (Late st Contact Info) Description 01/24/2013 Hospital Outpatient Visit [facility] Default Department Cyndi Amaya MD [address] [place] [address] Discharge Disposition: Home or Self Care Social [...] on filedocumented in this encounter Care Teams Buffing And Polishing Wheel Repairer Relationship Specialty Start Date End Date Mendoza Parker MD PCP - General 01/24/13 documented as of this encounter
--- OUTSIDE RECORDS SUMMARY | 2024-11-19 04:47 | XMS_ITS | Encounter Summary ---
Author Organization [facility] Address [address] [place] [address] Care Team Providers Care Event Coordinator Marketing And Sales Name Role Phone Mendoza Parker MD Primary Care Provider [phone] Encounter Details Date Type Department Care Team (Late st Contact Info) Description 04/04/2013 Hospital Outpatient Visit [facility] Default Department Cyndi Amaya MD [address] [place] [address] Discharge Disposition: Home or Self Care Social [...] on filedocumented in this encounter Care Teams Event Coordinator Marketing And Sales Relationship Specialty Start Date End Date Mednoza Parker MD PCP - General 01/24/13 documented as of this encounter
--- OUTSIDE RECORDS SUMMARY | 2024-11-19 04:47 | XMS_ITS | Patient Health Summary ---
Author Organization [facility] Address [address] [place] [address] Care Team Providers Care Icing Maker Name Role Phone Mendoza Parker MD Primary Care Provider [phone] Note from [facility],non-owned Affiliates and Associated Physician Practices is amultiple site organization consisting of ambulatory clinics and hospital sitesin [place], [place], [place] and [place]. This disclosure is being madepursuant to the Care Everywhere program and may not contain all information available regarding this patient. Last updated 18.[facility] Allergies * Ciprofloxacin(Anaphylaxis) -High Criticality * Codeine(Nausea) -Low Criticality * Metronidazole(Shortness of Breath) -High Criticality Active Problems Problem Noted Date Diagnosed Date Umbilical hernia without obstruction or gangrene 09/04/2015 Gastro-esophageal reflux disease without esophag itis 12/14/2013 Diverticulosis of intestine without perforation or abscess without bleeding 01/24/2013 Abdominal pain 01/24/2013 Ventral hernia without obstruction or gangrene 0 01/24/2013 Resolved Problems Problem Noted Date Diagnosed Date Resolved Date Constipation 04/04/2013 03/20/2018 Social History Tobacco Use Types Packs/Day Years [...] Mass Index 31.15 02/04/2014 10:19 AM CDT Care Teams Icing Maker Relationship Specialty Start Date End Date Mendoza Parker MD PCP - General 01/24/13
--- OUTSIDE RECORDS SUMMARY | 2024-11-19 04:47 | XMS_ITS | Encounter Summary ---
Author Organization [facility] Address [address] [place] [address] Care Team Providers Care Civil Preparedness Training Officer Name Role Phone Mendoza Parker MD Primary Care Provider [phone]- [phone] Encounter Details Date Type Department Care Team (Late st Contact Info) Description 11/21/2013 Hospital Outpatient Visit Historic [facility] [address] [place] [address] Cyndi Amaya MD [address] [facility] [address] [place] [address] Discharge Disposition: Home or Self Care Social [...] on filedocumented in this encounter Care Teams Civil Preparedness Training Officer Relationship Specialty Start Date End Date Mendoza Parker MD PCP - General 01/24/13 documented as of this encounter
--- OUTSIDE RECORDS SUMMARY | 2024-11-19 04:47 | XMS_ITS | Encounter Summary ---
Author Organization [facility] Address [address] [place] [address] Care Team Providers Care Auto Mechanics Teacher Name Role Phone Mendoza Parker MD Primary Care Provider [phone]- [phone] Encounter Details Date Type Department Care Team (Late st Contact Info) Description 02/14/2013 Hospital Outpatient Visit [facility] Default Department Sammi Jade MD [address] [place] [address] Discharge Disposition: Home or Self Care Social [...] on filedocumented in this encounter Care Teams Auto Mechanics Teacher Relationship Specialty Start Date End Date Mendoza Parker MD PCP - General 01/24/13 documented as of this encounter
--- OUTSIDE RECORDS SUMMARY | 2024-11-19 04:47 | XMS_ITS | Encounter Summary ---
Author Organization [facility] Address [address] [place] [address] Care Team Providers Care Search Engine Optimization Strategist Name Role Phone Mendoza Parker MD Primary Care Provider [phone] Encounter Details Date Type Department Care Team (Late st Contact Info) Description 08/08/2013 Hospital Outpatient Visit [facility] Default Department Cyndi Amaya MD [address] [place] [address] Discharge Disposition: Home or Self Care Social [...] on filedocumented in this encounter Care Teams Search Engine Optimization Strategist Relationship Specialty Start Date End Date Mendoza Parker MD PCP - General 01/24/13 documented as of this encounter
--- OUTSIDE RECORDS SUMMARY | 2024-11-19 04:47 | XMS_ITS | Encounter Summary ---
Author Organization [facility] Address [address] [place] [address] Care Team Providers Care Insurance Premium Auditor Name Role Phone Mendoza Parker MD Primary Care Provider [phone] Encounter Details Date Type Department Care Team (Late st Contact Info) Description 11/07/2013 Hospital Outpatient Visit [facility] Default Department Cyndi Amaya MD [address] [place] [address] Discharge Disposition: Home or Self Care Social [...] on filedocumented in this encounter Care Teams Insurance Premium Auditor Relationship Specialty Start Date End Date Mendoza Parker MD PCP - General 01/24/13 documented as of this encounter
--- OUTSIDE RECORDS SUMMARY | 2024-11-19 04:47 | XMS_ITS | Clinical Summary ---
Author Organization [facility] Address [address] [place] [address] Phone Care Team Providers Care Regulatory Administrator Name Role Phone Mendoza Parker MD Primary Care Provider Allergies Active Allergy Reactions Criticality Noted Date Comments Acetaminophen-Codeine Other (see Comments) Nausea, vomiting, diarrhea Ciprofloxacin Other (see Comments) Asthma/shortness of breath/put patient in ER Metronidazole Other (see Comments) Asthma/shortness of breath/put patient in ER Medications omeprazole (PRILOSEC) 40 MG CAPSULE DELAYED RELEASE Take 40 mg by mouth daily. Active citalopram (CELEXA) 20 MG Tablet Take 40 mg by mouth daily. Active gabapentin (NEURONTIN) 300 MG Capsule Active nebivolol (BYSTOLIC) 5 MG Tablet Take 7.5 mg by mouth daily. Active DULoxetine (CYMBALTA) [address] Particles Take 30 mg by mouth daily. Active pregabalin (LYRICA) 75 MG Capsule Take 75 mg by mouth 2 times daily. Active Teriparatide, Recombinant, (FORTEO SC) by Subcutaneous route. Active meclizine (ANTIVERT) 25 MG Tablet Take 1 Tab by mouth 3 times daily as needed for Dizziness. 50 Tab 0 6 Active Active Problems Problem Noted Date Diagnosed Date Bronchitis Ptosis of eyelid Social History Tobacco Use Types Packs/Day Years [...] Mass Index 33.33 03/22/2023 9:43 AM CDT Plan of Treatment Health Maintenance Due Date Last Done Comments Hepatitis C Virus (HCV) Screening 1964 Cologuard 2014 Immunochemical Fecal Occult Blood 2014 Mammogram 2014 Pneumococcal Immunization (50+ years) (2 of 2 - PCV) 08/07/2022 08/07/2021 Influenza Immunization (#1) 07/22/202408/21, 08/31/2019, 09/14/2018, Additional history exists SARS-COV-2 Immunization ( season) 2024 08/30/2022, 02/24/2022, 09/17/2021, Additional history exists Colonoscopy 02/23/2033 02/23/2023 Colorectal Cancer Screening 02/23/2033 Respiratory Syncytial Virus (RSV) Immunization (Adult) (1 - 1-dose 75+ series) 2039 02/23/2023 Hepatitis B Immunization Completed 005, 09/24/2004, 08/25/2004 DTaP/Tdap/Td Immunization Discontinued 05/11/2018 TdaP Immunization Completed 05/11/2018 Zoster Immunization Completed 07/20/2021, Pneumococcal Immunization Combined Discontinued 08/07/2021 Meningococcal Immunization (ACWY) Aged Out No longer eligible based on patient's age to complete this topic Rotavirus Immunization Aged Out No lo nger eligible based on patient's age to complete this topic Insurance Care Teams Regulatory Administrator Relationship Specialty Start Date End Date Mendoza Parker MD [address] [place] [address] PCP - General Internal Medicine 03/16/16
--- OUTSIDE RECORDS SUMMARY | 2024-11-19 04:48 | XMS_ITS | Encounter Summary ---
Author Organization [facility] Address [address] [place] [address] Phone Care Team Providers Care Box Coverer Hand Name Role Phone Margarito العراقي MD Primary Care Provider [phone] Raymond Vela MD Unavailable [phone] Encounter Details Date Type Department Care Team (Late st Contact Info) Description 03/23/[address] [place] [address] Urbano Delacruz MD [facility] [address] Social History Tobacco Use Types Packs/Day Years Used Date Smoking Tobacco: Every Day Cigarettes Smokeless Tobacco: Never Alcohol Use Standard Drinks/Week Comments No 0 (1 standard drink = 0.6 oz pur e alcohol) AUDIT-C Answer Date Recorded Q1: How often do you have a drink containing alc ohol? 2-4 times a month 10/02/2021 Q2: How many drinks containi ng alcohol do you have on a typical day when you are drinking? 3 or 4 10/02/2021 Frequency of Binge Drinking Not on file 09/21 Personal Safety Answer Date Recorded Have you ever been in or are you currently in a harmful physical or emotional relationship or is someone making you feel afraid or unsafe? 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 * Telephone Encounter - Marychuy Lee CMA - 06/21/2024 1:34 PM CDT Spoke to patient. She is getting ready to go on vacation and will return in a few weeks. She statesthat she will get her labs done then. * Telephone Encounter - Sarah Gasca CMA - 05/07/2024 3:25 PM CDT Lab reminder sent via [facility] * Telephone Encounter - Mohinder Escamilla RMA - 03/23/2024 11:52 AM CDT Continue Reclast Per Dr. Delacruz To be done at [facility] Last infusion was on 02/02/21 Therapy plan is in epic Pending labs documented in this encounter Plan of Treatment Not on file documented as of this encounter Visit Diagnoses Diagnosis Age-related osteoporosis without current pathological fracture- Primary documented in this encounter Orders Appointment Requests Count Last Ordered Date Fi rst Ordered Date INFUSION APPT REQUEST 60 MIN 1 06/22/2024 documented in this encounter Care Teams Box Coverer Hand Relationship Specialty Start Date End Date Margarito العراقي MD [address] [place] [address] PCP - General Family Medicine 09/04/20 Raymond Vela MD [address] [place] [address] Referring Physician Obstetrics and Gynecology 08/17/21 documented as of this encounter
--- OUTSIDE RECORDS SUMMARY | 2024-11-19 04:48 | XMS_ITS | Encounter Summary ---
Author Organization [facility] Address [address] [place] [address] Phone Care Team Providers Care Cathead Worker Name Role Phone Margarito العراقي MD Primary Care Provider [phone] Raymond Vela MD Unavailable [phone] Reason for Visit * Reason Comments Follow-up Encounter Details Date Type Department Care Team (Late st Contact Info) Description 06/19/2024 3:45 PM CDT Office Visit [facility] Surgery 2 [facility] [address] [place] [id number] Venita Baptiste NP 2 [facility] [address] [place] [address] Arthritis of carpometacarpal (CMC) joint of left thumb (Primary Dx); Right wrist pain Social History Tobacco Use Types Packs/Day Years [...] on file 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 She was treated Kenalog injection to bilateral carpal tunnel syndrome. She had been treated a year and a half prior with success and also wearing splints. In the past she had also been treated for CMC arthritis. Exam was not concerning for CMC arthritis however she was instructed to return in 4 weeks she is still having CMC discomfort and we will then treat with Kenalog injection. S: She has had improvement with carpal tunnel syndrome still having although improved discomfort ofher left CMC joint and right ulnar wrist O: Left thumb CMC joint with tenderness with firm pressure, positive grind test. She denies numbness or tingling to the distal finger has adequate perfusion and opposition 10/10. Right ulnar styloid head is more prominent compared to left wrist. She does have discomfort with pressure to this area with lifting of heavy objects. I do not appreciate ganglion cyst, erythema or edema. She has not have discomfort with lateral medial flexion or with supine prone rotation. REVIEW OF LABORATORY AND RADIOGRAPHIC STUDIES: Normal mineralization. No fracture or dislocation. Trivial osteoarthritis 1st carpometacarpal joint. Soft tissues are unremarkable. A/P: 58 y.o. female returns today for further treatment of left CMC arthritis and right wrist pain. He was improvement of carpal tunnel syndrome with Kenalog injections in April. She was treated with Kenalog injections to her left CMC joint and right lateral wrist. See procedure note All of her questions were answered and she was instructed to contact the office if she has additional questions. Follow up: PRN Restriction: as tolerated I spent 30 minutes on this patient encounter which included review of medical records. Over half the time was spent with the patient face to face discussing the treatment plan, counseling and coordinating care. Venita Baptiste NP 06/18/24 1:58 PM This document was transcribed using voice recognition software without a human construction administrator. Itmay contain typographical, grammatical, and/or syntax errors. documented in this encounter Procedure Notes * Venita Baptiste NP - 06/19/2024 3:45 PM CDT Procedures PROCEDURE: small Joint Steroid Injection - Left Thumb CMC After discussing the risks (including bleeding, infection, damage to nearby structures including skin/tendon), benefits, alternatives, and expected post- injection course, verbal informed consent was obtained by the patient. The skin over the joint was cleaned with chloraprep A 27G needle was used to access the radial aspect of the joint <1 ml of 1% lidocaine plain was injected into the soft tissue and joint The needle was left in place and 40 mg (1 ml) of kenalog 40 was injected into the joint The skin was wiped again with chloraprep and a Band-Aid was applied The patient tolerated the procedure well PROCEDURE: medium Joint Steroid Injection - Right Wrist After discussing the risks (including bleeding, infection, damage to nearby structures including skin/tendon), benefits, alternatives, and expected post- injection course, verbal informed consent was obtained by the patient. The skin over the joint was cleaned with chloraprep A 27G needle was used to access the ulnar aspect of the joint <1 ml of 1% lidocaine plain was injected into the soft tissue and joint The needle was left in place and 40 mg (1 ml) of kenalog 40 was injected into the joint The skin was wiped again with chloraprep and a Band-Aid was applied The patient tolerated the procedure well documented in this encounter Plan of Treatment Not on file documented as of this encounter Visit Diagnoses Diagnosis Arthritis of carpometacarpal (CMC) joint of left thumb- Primary Right wrist pain Pain in joint, forearm documented in this encounter Administered Medications Inactive Administered Medications - up to 3 most recent administrations Medication Order MAR Action Action Date Dose Rate Site lidocaine (XYLOCAINE) 10 mg/mL (1 %) injection 15 mg 15 mg (1.5 mL), infiltration, Once, On Tue06/19/24 at 1645, For 1 dose, Indications: Administration of Local AnesthesiaIndications:Administratio n of Local Anesthesia Given 06/19/2024 4:00 PM CDT 15 mg triamcinolone (KENALOG) 40 mg/mL injection 60 mg 60 mg, other, Once, On Tue06/19/24 at 1645, For 1 doseIndications:Arthritis of carpometacarpal (CMC) joint of left thumb,Right wrist pain Given 06/19/2024 4:00 PM CDT 60 mg documented in this encounter Historical Medications * This list may reflect changes made after this encounter. nicotine (NICODERM CQ) 14 mg APPLY 1 PATCH BY TRANSDERMAL ROUTE EVERY DAY 06/01/2024 nicotine (NICODERM CQ) 21 mg APPLY 1 PATCH BY TRANSDERMAL ROUTE EVERY DAY AND REMOVE AT BEDTIME 06/01/2024 buPROPion SR (WELLBUTRIN SR) 150 mg 12 hr tablet Take 1 tablet (150 mg total) by mouth 2 (two) times a day 06/01/2024 added in this encounter Care Teams Cathead Worker Relationship Specialty Start Date End Date Margarito العراقي MD [address] [place] [address] PCP - General Family Medicine 09/04/20 Raymond Vela MD [address] [place] [address] Referring Physician Obstetrics and Gynecology 08/17/21 documented as of this encounter
--- OUTSIDE RECORDS SUMMARY | 2024-11-19 04:48 | XMS_ITS | Encounter Summary ---
Author Organization [facility] Address [address] [place] [address] Care Team Providers Care Film Processing Supervisor Name Role Phone Margarito العراقي MD Primary Care Provider [phone] Raymond Vela MD Unavailable [phone] Reason for Visit * Reason Comments Follow-up Encounter Details Date Type Department Care Team (Late Contact Info) Description 05/07/2024 2:00 PM CDT Office Visit [place] [employer] [facility] Director at [address] [phone] Liv Nelson MD [address] [place] [address] Dizziness (Primary Dx); NEO (obstructive sleep apnea); Essential hypertension; Pure hypercholesterolemia ; Smoking Social History Tobacco Use Types Packs/Day Years [...] on file 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 Gender Identity Not on file Sexual Orientation Not on file documented as of this encounter Last Filed Vital Signs Vital Sign Reading Time Taken Comments Blood Pressure 122/82 05/07/2024 2:23 PM CDT Pulse 83 05/07/2024 2:23 PM CDT Temperature - - Respiratory Rate - - Oxygen Saturation - - Inhaled Oxygen Concentration - - Weight 73.5 kg (162 lb) 05/07/2024 2:23 PM CDT Height 149.9 cm (4' 11 ) 05/07/2024 2:23 PM CDT Body Mass Index 32.72 05/07/2024 2:23 PM CDT documented in this encounter Ordered Prescriptions Prescription Sig Dispense Quantity Refills Last Filled Start Date End Date irbesartan (AVAPRO) 75 mg tablet Take 2 tablets (150 mg total) by mouth daily 180 tablet 3 05/07/2024 hydroCHLOROthiazid e (HYDRODIURIL) 25 mg tablet Take 1 tablet (25 mg total) by mouth daily 90 tablet 3 05/07/2024 atorvastatin (LIPITOR) 20 mg tablet Take 1 tablet (20 mg total) by mouth daily 90 tablet 3 05/07/2024 metoprolol tartrate (LOPRESSOR) 50 mg immediate release tablet Take 1 tablet (50 mg total) by mouth 2 (two) times a day 180 tablet 3 05/07/2024 documented in this encounter Progress Notes * Liv Nelson MD - 05/07/2024 2:00 PM CDT Cardiology note Reason for Office Visit: Chief Complaint Patient presents with Follow-up HTN History of Present Illness: Shivani Betancur is a 58 y.o. female is here for follow up. She returned for a visit due to persistent symptoms of dizziness especially when bending down and getting up. No falls. Patient is staying active and performs ADLs with no limitations. She takes about 02518 steps a day. No cardiac issues or symptoms. Denies any chest discomfort, dysnea, palpitations, dizziness, fatigue or claudication. No hospitalizations. He denies any PND or Orthopnea or swelling. Patient is compliant with his medications. Denies any bleeding issues. She smokes about 1 PPD. 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 She uses CPAP for sleep. PAST MEDICAL HISTORY: HTN HLD NEO on CPAP SMOKING PALPITATIONS, resolved Past Medical History: Diagnosis Date Disorder of thyroid Thyroid disease Fibrositis Fibromyalgia Gastroesophageal reflux disease GERD HX OTHER MEDICAL 1988 ; Outcome: 9 lb(s) 10 oz Female HX OTHER MEDICAL 1991 ; Outcome: 7 lb(s) 8 oz Male HX OTHER MEDICAL 1982 ; Outcome: 8 lb(s) 2 oz Female HX OTHER MEDICAL Recovering alcoholic sober since 1993 HX OTHER MEDICAL IBS HX OTHER MEDICAL endometreosis HX OTHER MEDICAL Headache, migraine HX OTHER MEDICAL L4 fracture and left shoulder pain s/p fall in bat HX OTHER MEDICAL Diverticulosis HX OTHER MEDICAL migraines; Comments: GDS 11/27/2015 - HX OTHER MEDICAL chronic joint pain; Comments: GDS 11/27/2015 - HX OTHER MEDICAL neuropathy; Comments: GDS 11/27/2015 - Hyperlipidemia Hypertension Hypertension Hypertension Hypertension PONV (postoperative nausea and vomiting) Sleep apnea CPAP Family and Social history Family History Problem Relation Age of Onset Throat cancer Mother Skin cancer Mother Congenital heart disease Father Congenital heart disease; Asthma Daughter Asthma; Coronary artery disease Mother's Sister Coronary artery disease; Diabetes type II Other Family history of Diabetes -Type II; Cancer Other Family history of Cancer; Diabetes Other Family history of Diabetes mellitus; Coronary artery disease Other Family history of Coronary artery disease; Stroke Other Stroke; Osteoporosis Neg Hx Hip fracture Neg Hx Social History Tobacco Use Smoking status: Current Every Day Smoker Packs/day: 0.25 Smokeless tobacco: Never Used Vaping Use Vaping Use: Never used Substance Use Topics Alcohol use: No Drug use: No Allergies Allergen Reactions Ciprofloxacin Shortness of breath, Other (See comments) and Anaphylaxis Throat swelling, SOB Throat swelling, SOB Asthma/shortness of breath/put patient in ER Reaction: Trouble Breathing, , , Reaction: Trouble Breathing, , Metronidazole Shortness of breath and Other (See comments) Throat swelling Asthma/shortness of breath/put patient in ER Reaction: Trouble Breathing, , , , Acetaminophen-Codeine Other (See comments) Nausea, vomiting, diarrhea Codeine Nausea Only, Itching and Nausea only Reaction: Itching, Nausea, Lisinopril Cough Medications: Current Outpatient Medications Medication Sig Dispense Refill xcnvjwuorhaqr-jbousqv-xlopqopx (EXCEDRIN MIGRAINE) 250-250-65 mg per tablet 1-2 per week aspirin 81 mg enteric coated tablet TAKE ONE TABLET BY MOUTH ONCE DAILY 90 tablet 1 atorvastatin (LIPITOR) 20 mg tablet TAKE ONE TABLET BY MOUTH ONCE DAILY 90 tablet 1 cyclobenzaprine (FLEXERIL) 10 mg tablet Take 10 mg by mouth 3 (three) times a day as needed. DULoxetine DR (CYMBALTA) 30 mg capsule estradiol (ESTRACE) 0.01 % (0.1 mg/gram) vaginal cream INSERT 1/2 TO 1 GRAM VAGINALLY 1 TO 2 TIMES PER WEEK 42.5 0 HYDROcodone-acetaminophen (NORCO) 5-325 mg per tablet Take 1 tablet by mouth every 6 (six) hours asneeded. 0 irbesartan (AVAPRO) 75 mg tablet 150 mg Take one tablet daily isosorbide mononitrate ER (IMDUR) 60 mg 24 hr tablet TAKE ONE TABLET BY MOUTH ONCE DAILY (Patient not taking: Reported on 10/22/2019) 90 tablet 1 lubiprostone (AMITIZA) 24 mcg capsule Take 24 mcg by mouth daily with breakfast. NARCAN 4 mg/actuation spray,non-aerosol glspbtpc-rzyjfonjz-baltmidkxsbdp (MAXITROL) 3.5mg/mL-10,000 unit/mL-0.1 % ophthalmic suspension nitrofurantoin monohydrate (MACROBID) 100 mg capsule Take 1 capsule (100 mg total) by mouth 2 (two)times a day for 5 days 10 capsule 0 omeprazole (PriLOSEC) 40 mg capsule TAKE ONE CAPSULE BY MOUTH ONCE DAILY 30 capsule 1 pen needle, diabetic (BD ULTRA-FINE MINI PEN NEEDLE) 31 gauge x 3/16 needle use one needle daily with Forteo Pen QUEtiapine (SEROquel) 50 mg tablet zolpidem (AMBIEN) 10 mg tablet Take 1 tablet (10 mg total) by mouth nightly as needed for sleep 30 tablet 5 No current facility-administered medications for this visit. Review of Systems: Constitutional: Negative for fever, chills, malaise/fatigue, and diaphoresis. Weight loss or Weightgain. Psychiatric: Negative for depression and anxiety. Skin: Negative for rash and itching. HENT: Negative for headaches, lightheadedness, and congestion. Negative for vertigo. Eyes: Negative for blurred vision and itching. Cardiovascular: Negative for chest pain, Negative for palpitations and syncope. Respiratory: Negative for cough and sputum production. Negative for shortness of breath. Gastrointestinal: Negative for nausea, vomiting, abdominal pain and diarrhea. Genitourinary: Negative for hematuria. Musculoskeletal: Negative for muscle weakness, extremity redness or swelling. Neurological: Negative for dizziness, focal weakness, tremors, and loss of consciousness. Vital Signs: Vitals BP 122/82 (BP Location: Right arm, Patient Position: Sitting) Pulse 83 Ht 149.9 cm (4' 11 ) Wt 73.5 kg (162 lb) BMI 32.72 kg/m?? Vitals: 05/07/24 1423 BP: 122/82 Pulse: 83 Wt Readings from Last 3 Encounters: 05/07/24 73.5 kg (162 lb) 04/26/24 73.9 kg (163 lb) 03/19/24 73.2 kg (161 lb 6.4 oz) Physical Exam: General: Well developed, well nourished, in no acute distress, Skin: Warm and dry Head: Normocephalic, oral mucosa and conjunctivae normal Neck: No thyromegaly or bruits. Carotid pulses 2+ Lungs: Clear to auscultation and percussion. Respirations unlabored Cardiac: PMI and JVP normal, S1 and S2 normal, no murmur, no gallop or rub Abd: Soft, nontender, BS active, no hepatosplenomegaly or masses, no abdominal bruit or enlarged aortic pulsation Extremities: No clubbing, cyanosis. No edema. Femoral pulses 2+. Pedal pulses 2+ Musculoskeletal: Muscle strength normal. No scoliosis. Neurologic: Oriented to person, place, and time. No focal neurological deficit. Psych: Mood not depressed. Labs: Lab Results Component Value Date CHOL 133 10/11/2018 TRIG 133 10/11/2018 HDL 56 10/11/2018 LDL 56 10/11/2018 Lab Results Component Value Date TSH 0.98 08/11/2022 FREET4 1.19 07/02/2022 Testing: No results found. Results for orders placed or performed during the hospital encounter of 08/15/18 ECG 12 lead Result Value Ref Range Patient age 52 years Interpretation Text SINUS RHYTHMMINIMAL VOLTAGE CRITERIA FOR LVH, CONSIDER NORMAL VARIANTBORDERLINE ECGPREVIOUS TRACIN08/01/2017 16.46 Ventricular Rate EKG/Min 77 /min P Wave Duration 109 ms QRS-Interval (MSEC) 84 ms NH-Interval (MSEC) 155 ms QT Interval 361 ms QTc 390 ms QTC Interval ms P Madison 18 deg QRS Madison -10 deg T Madison -8 deg ] Tests: 08/03/2017 Last spec thallium was negative for ischemia with EF=67% 08/02/2017 Last 2D echocardiogram showed EF= 60-65% CHol 206 HDL 38 TG 318 LDL 104 08/02/2017 ALT 14 AST 15 01/2019 STress negative IMPRESSION: 1. No left ventricular ischemia or infarction seen. 2. Normal left ventricular ejection fraction of 66%. 3. No left ventricular wall motion abnormality on cine images. 4. No significant change compared to 08/03/2017. Electronically signed by: Varun Abernathy Jr., M.D. EK08/01/2017 SR EVENT MONITOR: CONCLUSIONS: 1. Patient had event monitor for 17 days and 5 hours Baseline rhythm was sinus rhythm and average heart rate 65 bpm Minimum hear rate 88 bpm and maximum heart rate 134 bpm There were ventricular ectopic beast (<1%) and supraventricular ectopic beats ( <1%) There were no pauses more than 3 seconds and no episodes of atrial fibrillation There were no serious or critical events There were 12 patient patient triggered events for lightheadedness, chest pain and palpitation and underlying rhythm was sinus rhythm. Electronically Signed By: Jasvir Choi 2024-03-05 17:42:42 CDT ECHO: CONCLUSIONS: Normal left ventricular systolic function with no focal wall motion abnormalities. Normal left ventricular size. Normal left ventricular wall thickness. Normal left ventricular diastolic function. Ejection fraction is visually estimated at 60 %. Mild mitral valve regurgitation. Normal right ventricular systolic pressure. Estimated peak RVSP is 30 mmHg. Mild tricuspid regurgitation. Trivial regurgitation in the pulmonic valve. Electronically Signed By: Clifton Michele MD 2024-02-08 15:29:48 CDT Assessment: I had a detailed discussion with the patient about all the relevant issues here, reviewed all the data, including clinical presentation, exam findinds, test/lab results and current management and offered advice. Continue with current cardiac management with suggested changes and or recommendations. I had a detailed discussion with the patient about all the relevant cardiac issues here. Patient isdoing well cardiac jorge with no symptoms. No angina of CHF. Blood pressure is well controlled. 1- chest pain- negative stress no further symptoms 2- HTN- controlled 3- HLD- followed by PMD 4- NEO- CPAP to follow up 5- tobacco and ETOH abuse Essential Hypertension [I10] Tobacco Use [Z72.0] Mixed Hyperlipidemia [E78.2] Diagnoses and all orders for this visit: Dizziness (Primary) NEO (obstructive sleep apnea) Essential hypertension Pure hypercholesterolemia Smoking PLAN: Continue same medication regimen. Continue tight control of blood pressure and cholesterol. Continue diet, exercise, and weight reduction. Risk factor modification strategy discussed with thepatient. It included weight reduction through exercise and dietary discretion, optimal control of hypertension, lipid status. Abstinance from tobacco use is a strong recommendation. Contact PMD for any further assistance. I explained the mechanism of orthostatic dizziness, and how to prevent a symptom, precautions to avoid injury and related life style adjustment. Stockings might help. Keep hydrated all the time, avoid crowded or warm, places. avoid sudden change of posture etc. Falland injury prevention precautions explained. 21 day event monitor and ECHO results reviewed and reassured. Metaprolol refills. Follow up with me 6 months or earlier with new symptoms. Thank you for the consult. We will be happy to follow in this patient's care. Liv Nelson MD2:48 PM 05/02/2023 Cc:Margarito العراقي MD documented in this encounter Miscellaneous Notes * Addendum Note - Linnea Cortez MA - 05/07/2024 2:00 PM CDTAddended by: LINNEA CORTEZ on: 05/07/2024 03:00 PM Modules accepted: Orders documented in this encounter Plan of Treatment Not on file documented as of this encounter Visit Diagnoses Diagnosis Dizziness- Primary Dizziness and giddiness NEO (obstructive sleep apnea) Obstructive sleep apnea (adult) (pediatric) Essential hypertension Unspecified essential hypertension Pure hypercholesterolemia Smoking Tobacco use disorder documented in this encounter Discontinued Medications Medication Sig Discontinue Reason Start Date End Da te atorvastatin (LIPITOR) 20 mg tablet TAKE ONE TABLET BY MOUTH ONCE DAILY Reorder 05/06/2020 05/07/2024 metoprolol tartrate (LOPRESSOR) 50 mg immediate release tablet TAKE 1 TABLET BY MOUTH TWICE A DAY Reorder 10/20/2022 05/07/2024 hydroCHLOROthiazide (HYDRODIURIL) 25 mg tablet TAKE 1 TABLET BY MOUTH EVERY DAY Reorder 07/15/2023 05/07/2024 irbesartan (AVAPRO) 75 mg tablet TAKE 2 TABLETS BY MOUTH DAILY Reorder 05/07/2024 05/07/2024 documented as of this encounter Care Teams Film Processing Supervisor Relationship Specialty Start Date End Date Margarito العراقي MD [address] [place] [id number] PCP - General Family Medicine 09/04/20 Raymond Vela MD [address] [place] [address] Referring Physician Obstetrics and Gynecology 08/17/21 documented as of this encounter
--- OUTSIDE RECORDS SUMMARY | 2024-11-19 04:48 | XMS_ITS | Encounter Summary ---
Author Organization [facility] Address [address] [place] [address] Phone Care Team Providers Care Wool Broker Name Role Phone Margarito العراقي MD Primary Care Provider [phone] Raymond Vela MD Unavailable [phone] Reason for Visit * Reason Comments Osteopenia * Diagnostic Imaging (Routine) - Authorized Specialty Diagnoses / Procedures Referred By Contac t Referred To Contact Diagnoses Age-related osteoporosis without current pathological fracture Procedures Dexa TBS Axial Skeleton Bone Density 1 or more sites Urbano Delacruz MD Phone: tel: fax: [facility] (All Locations) Referral ID Status Reason Start Date Expiration Date V isits Requested Visits Authorized [id number] Authorized 02/15/2024 03/16/2025 12 12 Encounter Details Date Type Department Care Team (Latest Contact Info) Description 03/19/2024 2:30 PM CDT Clinical Support [facility] [address] [place] [address] 5th [place] [address] [place] [address] Age-related osteoporosis without current pathological fracture (Primary Dx) Social History Tobacco Use Types Packs/Day Years [...] on file 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 Gender Identity Not on file Sexual Orientation Not on file documented as of this encounter Plan of Treatment Not on file documented as of this encounter Procedures Procedure Name Priority Date/Time Associated Diagnosis Comments DEXA TBS AXIAL SKELETON BONE DENSITY 1 OR MORE SITES Schedule Routine, Read Routine (OP Routine) 03/19/2024 2:55 PM CDT Age-related osteoporosis without current pathological fracture documented in this encounter Results * Dexa TBS Axial Skeleton Bone Density 1 or more sites (03/19/2024 2:55 PM CDT) Anatomical Region Laterality Modality Wrist, Body N/A Radiographic Krupa ging Narrative 03/19/2024 3:44 PM CDT Patient Name: Shivani Betancur Date of : 1965 Date of scan: 03/19/2024 Bone mineral density was performed on a [employer] Discovery Densitometer. ?? Based on machine cross-calibration and precision studies the least significant changes of this densitometer is 0.024 g/cm2 at the spine, 0.020 g/cm2 at the total proximal femur, and 0.014g/cm2 at the forearm. HISTORY: This is a 58 y.o. postmenopausal female with a history of low bone mass, thyroid disease, and vitamin D deficiency. She reports that she has been smoking cigarettes. She has never used smokeless tobacco. Currently on treatment with calcium and vitamin D, previously treated with ibandronate (Boniva), zoledronic acid (Reclast), teriparatide (Forteo), denosumab (Prolia), hormone replacement therapy, and thyroid hormone, and current complaint of arm pain, back pain, neck pain, and leg pain. INDICATIONS: Menopause status, vitamin D deficiency, and history of low bone mass. FINDINGS: BONE MINERAL DENSITY OF THE LUMBAR SPINE Bone Mineral Density (BMD) of the lumbar spine was measured from L1-L4 and the average density was calculated to be 0.971 gm/cm2. This corresponds to a T-score (standard deviations from the mean of young adults) of -0.7. When compared to the previous study of 03/14/2023 there has been a -0.040 gm/cm (-3.9%) decrease in bone density that is considered significant. BONE MINERAL DENSITY OF THE PROXIMAL FEMUR Bone Mineral Density (BMD) of the left hip total was found to be 1.004 gm/cm2. This corresponds to a T-score standard deviations from the mean of young adults of 0.5. Femoral neck is 0.741 gm/cm2 with a T-score (standard deviations from the mean of young adults) of -1.0. When compared to the previous study of 03/14/2023 there has been no significant changes in bone density. BONE MINERAL DENSITY OF THE FOREARM Bone Mineral density (BMD) of the left proximal 1/3 of the radius measures 0.642 gm/cm2. This corresponds to a T-score (standard deviations from the mean of young adults) of -0.9. When compared to the previous study of 03/14/2023 there has been no significant changes in bone density. A forearm bone density study was performed in addition to the routine study per protocol. SUMMARY: Bone mineral density is near the young adult normal mean with no increased risk for fracture. There has been a significant decrease in bone density since previous measurement. The lumbar spine Trabecular Bone Score is 1.297 which suggests ??partially degraded bone microarchitecture compared to the general population. Final decisions regarding diagnostic or therapeutic recommendations should include BMD, TBS, additional clinical risk factors as well the clinical context of the patient. ?? Please see attached TBS results for further details. ADDITIONAL COMMENTS: Postmenopausal Women and Men Over 50: Diagnostic criteria: Osteoporosis: BMD at or below -2.5 T-score; Osteopenia (low bone mass): BMD between -1.0 and -2.5 T-score. If the patient has a history of a fragility fracture, a fracture that occurred with trauma equivalent to a fall from a standing position or less, then the diagnosis is osteoporosis regardless of bone density. The history and data sections of the bone mineral density scan were prepared by Awa Mckeon)(CBDT) who is accredited by the International Society of Clinical Densitometry. The overall patient assessment and scan interpretation were performed by ?? Urbano Delacruz M.D. who is certified by the International Society of Clinical Densitometry. [id number] Urbano Delacruz MD IMG DXA PROCEDURES Final Result documented in this encounter Visit Diagnoses Diagnosis Age-related osteoporosis without current pathological fracture- Primary documented in this encounter Care Teams Wool Broker Relationship Specialty Start Date End Date Margarito العراقي MD [address] [address] PCP - General Family Medicine 09/04/20 Raymond Vela MD [address] [place] [address] Referring Physician Obstetrics and Gynecology 08/17/21 documented as of this encounter
--- OUTSIDE RECORDS SUMMARY | 2024-11-19 04:48 | XMS_ITS | Encounter Summary ---
Author Organization [facility] Address [address] [place] [address] Phone Care Team Providers Care Handling Tech Name Role Phone Margarito العراقي MD Primary Care Provider [phone] Raymond Vela MD Unavailable [phone] Encounter Details Date Type Department Care Team (Late st Contact Info) Description 06/21/2024 Orders Only [facility] [address] [facility] 5th [place] [address] [place] [address] Urbano Delacruz MD [address] [facility] [address] [place] [address] Social History Tobacco Use Types Packs/Day [...] on file 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 25-OH Vitamin D: Deficiency: ?<20 ng/mL Insufficiency: ? 20 - 29 ng/mL Optimal: ? > or = 30 ng/mL For 25-OH Vitamin D testing on patients on D2-supplementation and patients for whom quantitation of D2 and D3 fractions is required, the QuestAssureD(TM) 25-OH VIT D, (D2,D3), LC/MS/MS is recommended: order code 04715 (patients >2yrs). See Note 1 Note 1 For additional information, please refer to http://education.[employer].OpenTrust/faq/VZW280 (This link is being provided for informational/ educational purposes only.) 06/21/2024 2:21 PM CDT 06/21/2024 2:22 PM CDT Narrative [facility] - 06/22/2024 6:40 AM CDT FASTING:NO FASTING: NO us Urbano Delacruz MD LAB BLOOD ORDERABLES Final Resu lt [facility] [address] [facility] [place] [address] * Basic metabolic panel (06/21/2024 2:21 PM CDT) Glucose 106 65 - 139 mg/dL [facility] Comment: ? Non-fasting reference interval BUN 21 7 - 25 mg/dL [facility] Creatinine 0.77 0.50 - 1.03 mg/dL [facility] eGFR 89 > OR = 60 mL/min/1.7 3m2 [facility] BUN/creat ratio SEE NOTE: (calc) [facility] Comment: ?? Not Reported: BUN and Creatinine are within ?? reference range. ? Sodium 138 135 - 146 mmol/L [facility] Potassium, pl 3.8 3.5 - 5.3 mmol/L [facility] Chloride 104 98 - 110 mmol/L [facility] CO2 27 20 - 32 mmol/L [facility] Calcium 9.3 8.6 - 10.4 mg/dL [facility] 06/21/2024 2:21 PM CDT 06/21/2024 2:22 PM CDT Narrative [facility] - 06/22/2024 6:40 AM CDT FASTING:NO FASTING: NO us Urbano Delacruz MD LAB BLOOD ORDERABLES Final Resu lt [facility] [address] [place] [address] documented in this encounter Visit Diagnoses Not on filedocumented in this encounter Care Teams Handling Tech Relationship Specialty Start Date End Date Margarito العراقي MD [address] [address] PCP - General Family Medicine 09/04/20 Raymond Vela MD [address] [place] [address] Referring Physician Obstetrics and Gynecology 08/17/21 documented as of this encounter
--- OUTSIDE RECORDS SUMMARY | 2024-11-19 04:48 | XMS_ITS | Referral Summary ---
Author Organization [facility] [address] Address [address] [place] [address] Phone Care Team Providers Care Manufacturer Agent Name Role Phone Margarito العراقي MD Primary Care Provider [phone] Raymond Vela MD Unavailable [phone] Encounters Date Type Department Care Team Description 11/07/2024 2:30 PM BODY PAINTER Office Visit [facility] [address] [place] [address] Liv Nelson MD Dizziness (Primary Dx); NEO (obstructive sleep apnea); Essential hypertension; Pure hypercholesterolemia; Smoking 11/01/2024 3:00 PM BODY PAINTER Office Visit [facility] [address] [place] [address] Marcia Haider MD Obstructive sleep apnea syndrome (Primary Dx); Hypersomnia; Chronic insomnia; Meningioma (HCC) from Last 3 Months Allergies Active Allergy Reactions Criticality Noted Date Comments Acetaminophen-Codeine Other (See comments) Low Nausea, vomiting, diarrhea Ciprofloxacin Shortness of breath,Other (See comments),Anaphylaxis High 01/24/2013 Throat swelling, SOB Throat swelling, SOB Asthma/shortness of breath/put patient in ER Reaction: Trouble Breathing, ??, , Reaction: Trouble Breathing, ??, Codeine Nausea Only,Itching,Nausea only Low 01/24/2013 Reaction: Itching, Nausea, Lisinopril Cough Low 01/16/2019 Metronidazole Shortness of breath,Other (See comments) High 01/24/2013 Throat swelling Asthma/shortness of breath/put patient in ER Reaction: Trouble Breathing, ??, , , Medications cyclobenzaprine (FLEXERIL) 10 mg tablet Take 1 tablet (10 mg total) by mouth 3 (three) times a day as needed 10/28/20 17 Active NARCAN 4 mg/actuation spray,non-aeroso l 10/02/20 19 Active pregabalin (LYRICA) 75 mg capsule Take 1 capsule (75 mg total) by mouth daily 02/05/20 20 Active ergocalciferol (VITAMIN D) 50,000 unit capsule ergocalciferol (vitamin D2) 1,250 mcg (50,000 unit) capsule TAKE 1 CAPSULE BY MOUTH ONCE PER WEEK Active azelastine 205.5 mcg (0.15 %) spray,non-aeroso l SPRAY 1 SPRAY INTO EACH NOSTRIL TWICE A DAY 08/01/20 21 Active HYDROcodone-acet aminophen (NORCO) 5-325 mg per tablet Take 1 tablet by mouth 3 (three) times a day 08/13/[address] (CYMBALTA) 30 mg capsule 08/25/20 21 Active estradioL (ESTRACE) 0.01 % (0.1 mg/gram) vaginal cream 09/30/20 21 Active rOPINIRole (REQUIP) 2 mg tablet Take 1 tablet (2 mg total) by mouth nightly 06/18/20 22 Active gabapentin, bulk, 100 % powder 3 10/01/20 22 Active ketamine HCl (ketamine, bulk,) 100 % powder 3 10/01/20 22 Active calcium carbonate (CALCIUM 600 ORAL) Take by mouth 2 (two) times a day Active cholecalciferol, vitamin D3, (VITAMIN D3 ORAL) Take by mouth Active meloxicam (MOBIC) 15 mg tablet Take 1 tablet (15 mg total) by mouth daily 08/04/20 23 Active clindamycin (CLEOCIN) 2 % vaginal cream INSERT ONE APPFUL VAGINALLY EVERY DAY AT BEDTIME FOR 3 DAYS 01/05/20 24 Active benzonatate (TESSALON) 200 mg capsuleIndicatio ns:Acute non-recurrent pansinusitis Take 1 capsule (200 mg total) by mouth 3 (three) times a day as needed for cough 30 capsule 02/20/20 24 Active metoprolol tartrate (LOPRESSOR) 50 mg immediate release tablet Take 1 tablet (50 mg total) by mouth 2 (two) times a day 180 tablet 3 05/07/20 24 Active atorvastatin (LIPITOR) 20 mg tablet Take 1 tablet (20 mg total) by mouth daily 90 tablet 3 05/07/20 24 Active hydroCHLOROthiaz nikki (HYDRODIURIL) 25 mg tablet Take 1 tablet (25 mg total) by mouth daily 90 tablet 3 05/07/20 24 Active irbesartan (AVAPRO) 75 mg tablet Take 2 tablets (150 mg total) by mouth daily 180 tablet 3 05/07/20 24 Active lubiprostone (AMITIZA) 24 mcg capsule TAKE 1 CAPSULE BY MOUTH TWICE A DAY FOR 30 DAYS 05/07/20 24 Active zolpidem (AMBIEN) 10 mg tablet TAKE 1 TABLET BY MOUTH EVERY DAY AT NIGHT 30 tablet 5 06/18/20 24 Active buPROPion SR (WELLBUTRIN SR) 150 mg 12 hr tablet Take 1 tablet (150 mg total) by mouth 2 (two) times a day 06/01/20 24 Active nicotine (NICODERM CQ) 21 mg APPLY 1 PATCH BY TRANSDERMAL ROUTE EVERY DAY AND REMOVE AT BEDTIME 06/01/20 24 Active nicotine (NICODERM CQ) 14 mg APPLY 1 PATCH BY TRANSDERMAL ROUTE EVERY DAY 06/01/20 24 Active Active Problems Problem Noted Date Diagnosed Date Smoking 05/07/2024 Dizziness 01/30/2024 Palpitations 05/02/2023 Encounter for screening colonoscopy 01/20/2023 Overview (01/20/2023): Added automatically from request for surgery [id number] Carpal tunnel syndrome of left wrist 10/11/2021 Arthritis of carpometacarpal (CMC) joint of left thumb 10/11/2021 Abnormal findings on diagnostic imaging of breas t 08/17/2021 Chronic idiopathic constipation 09/16/2020 Assessment & Plan (09/16/2020 5:30 PM CDT): Start Amitiza 24 micro g twice daily. Stop Linzess. Maintain adequate fiber intake and fluid intake. Follow-up in the office if no resolution of systems and annually. Hyperlipidemia 07/11/2020 Benign hypertension 11/27/2019 Acute cystitis without hematuria 05/26/2019 Assessment & Plan (04/16/2020 7:04 PM CDT): Patient having some urgency frequency and dysuria ciprofloxacin has not worked for the past. I am going to get a UA and start her on Macrobid 100 mg twice a day 5 days. Assessment & Plan (05/26/2019 7:50 PM CDT): Visit for 05/03/2019 patient complains of dysuria urgency frequency she also has some cramping in her back she has had back pain in the past. At this time patient will get a urinalysis and culture no antibiotics prescribed on this visit of 05/03 pending culture results. Alcohol abuse 02/02/2019 Assessment & Plan (04/16/2020 7:04 PM CDT): Patient with a COVID-19 restrictions and quarantine she is increase in alcohol intake 5-7 days week more frequently 7 days a week and 7-10 drinks.. Assessment & Plan (09/03/2019 9:10 AM CDT): Patient advised me she has been drinking 4-5 nights per week with a night cap. Never gets intoxicated.. She started drinking at age 10 with the family . Assessment & Plan (02/02/2019 4:53 PM CDT): Patient advised me insurance company has approved for to going to rehab at a facility in [facility]. Patient does not want to leave her family and does not want to go. Advised patient to contact her insurance company regarding an outpatient treatment in this immediate area that she can attend his stay at home. Smoking trying to quit 01/16/2019 Assessment & Plan (01/12/2020 2:49 PM BODY PAINTER): Patient continues with trying to quit smoking she has he was stop smoking for 3 4 days which she stop smoking she feels free fatigue.. This time does not want to try chance not fully due to patch this point. [place] patient tried decreased amount of smoking gradually over time. Assessment & Plan (09/03/2019 9:11 AM CDT): Patient continues to try to quit smoking. Her definitely does not want her to take Chantix.. DX Chantix and had nightmares and aggressive behavior. Patient smokes 3-4 cigarettes per day. Advised to use nicotine gum when she has a breakthrough desire to smoke. Assessment & Plan (02/03/2019 1:53 PM CDT): Patient has been given information regarding discontinue smoking including the information on nicotine patches as well as Wellbutrin and Chantix. Assessment & Plan (02/02/2019 4:54 PM CDT): Patient did not get the Chantix prescription feel her 's opposed to he had nightmares on the medication. He is afraid of suicidal ideation.. Patient advised black box warning has been removed regarding Chantix in a suicide. Assessment & Plan (01/16/2019 5:58 PM BODY PAINTER): Patient requested Chantix I gave her coupon and Rx we sent in again. Ptosis of eyelid 02/14/2018 NEO (obstructive sleep apnea) 09/08/2017 Assessment & Plan (01/12/2020 2:49 PM BODY PAINTER): Patient advised me she is using a CPAP machine and benefits from it. Assessment & Plan (09/03/2019 9:14 AM CDT): Patient continued use in benefits from CPAP. Assessment & Plan (02/03/2019 1:52 PM CDT): Patient's sleep apnea managed by Neurology. Assessment & Plan (09/08/2017 3:41 PM CDT): This this patient uses a CPAP machine on a nightly basis and benefits from using it. Primary benefit of restorative sleep, eliminates daytime fatigue, symptoms such as morning headaches. Recommended patient continue uses CPAP machine. Patient's needs replacement for mask and tubing I have reviewed her previous sleep study and she was using a full face mask auto titration 5-20 pressure range Abdominal hernia 10/28/2016 Overview (02/25/2017): Abdominal hernia Fibromyalgia 10/07/2015 Assessment & Plan (02/03/2019 1:50 PM CDT): Patient's multiple pain she is under care of Pain Clinic she also sees Neurology. Osteoporosis 09/30/2014 Assessment & Plan (05/13/2018 1:48 PM CDT): Patient managed by Endocrinology [facility] she advised me she will be starting Prolia in near future. Patient is presently taking Fosamax. Obesity 05/27/2014 Essential hypertension 05/19/2014 Overview (02/25/2017): HYPERTENSION NOS Assessment & Plan (04/16/2020 7:03 PM CDT): Patient now nervous started/valsartan 300 mg daily there times a blood pressure isn't controlled which she is very concerned about. Patient is also having palpitations. Nothing else new is going on patient drinks 5-7 days a week 5-10 drinks this may be responsible for changes in blood pressure at times as well as palpitations. At this time request a eap consultant for 2 weeks. Assessment & Plan (01/12/2020 2:48 PM BODY PAINTER): Patient advised me she is no longer taking Bystolic she is seeing Dr. Margarito العراقي in [place] he is a family practitioner. Placed on irbesartan 150 mg per day she is tolerating this.. Blood pressure today is 140/90. No chest pain or shortness of breath. Assessment & Plan (09/03/2019 9:09 AM CDT): Patient brought with her listing of blood pressure readings least 30 over 70% on were in normal range. Few there above normal or only 45 points above normal and systolic.. Patient's disappointed that all of her blood pressure readings were in normal range. Advised her that her blood pressure did medication does not need to be change her. However it is she may increase of Bystolic by half a tablet on the days when his consistently elevated.. Patient discontinue amlodipine she felt lightheaded on it.. Patient feel that I amlodipine is sensitive to alcohol when she drinks. Patient has a ? night cap ? 4-5 nights per week.. She never gets intoxicated. No further recommendations regarding blood pressure. Assessment & Plan (06/14/2019 6:27 PM CDT): Patient is taking Bystolic 20 mg some days she will take 2 additional 10 mg because of elevated blood pressure blood pressure is not at goal at this time. Patient did not tolerate spironolactone she is constantly going to the bathroom. At this time I am going to add amlodipine 2.5 mg daily to the Bystolic of 20 mg per day see her back in the next several months. Patient will continue to monitor blood pressure. Patient's advised is a small chance she may develop some edema with amlodipine. Assessment & Plan (05/26/2019 7:51 PM CDT): Hypertension remains controlled patient tolerating medications no changes in therapy Assessment & Plan (02/03/2019 1:50 PM CDT): Hypertension is unchanged. Continue current treatment regimen. Dietary sodium restriction. Weight loss. Regular aerobic exercise. Stop smoking. Continue current medications. Blood pressure will be reassessed at the next regular appointment. Assessment & Plan (02/02/2019 4:52 PM CDT): Patient's gauge checker changed her medicine is to Bystolic 5 mg twice a day she has 10 mg tablets she is breaking map taking twice a day.. Patient was previously on spironolactone 25 mg per day blood pressures dropping too low. She is now on spironolactone 1/2 tablet spironolactone 25 mg daily. Patient's diastolic blood pressures drops 60 she feels fatigued and wiped out she also notices that her heart rate increases. At this time I have advised patient to stay on Bystolic 5 mg half tablet twice a day. Change her spironolactone 1/2 tab dosage by taking spironolactone even days only.. Patient had 20 blood pressure readings at home 5 of those blood pressure readings were elevated remainder within normal range. Again she had some diastolic readings in the 60s and patient did not feel well. Assessment & Plan (01/16/2019 5:55 PM BODY PAINTER): Hypertension well controlled with medication Bystolic 40 mg daily. However she has developed greater fatigue dry mouth. This time reduce Bystolic to 20 mg daily. Start spironolactone as add on the next 7 days. Patient to monitor blood pressure I will see her back in the next 3 months. Assessment & Plan (01/06/2019 6:03 PM BODY PAINTER): Hypertension is unchanged. Continue current treatment regimen. Dietary sodium restriction. Weight loss. Continue current medications. Blood pressure will be reassessed at the next regular appointment. Assessment & Plan (09/26/2018 12:48 PM BODY PAINTER): Patient's certain regarding elevated blood pressure which is spirits last night. Patient has fibromyalgia she is having a lot of pain last night she did not take her pain medicines instead she took muscle relaxant Flexeril. Her blood pressure was running 170/115 repeated blood pressures 170/110. Patient had headache and just overall soreness from her fibromyalgia.. At this time patient is a minimal headache no nausea no vomiting no chest pain or chest tightness. Patient is a chronic pain history stemming mainly from fibromyalgia.. Patient advised when she is having severe pain she needs to take her pain medicine maybe an extra tablet 2 hr later it does not help. Patient has Aspers available from her pain clinic dosage of 5/325. Patient's exam today blood pressures excellent lungs are clear no wheezing or rhonchi no murmur gallop no edema. No change in therapy Assessment & Plan (05/13/2018 1:47 PM CDT): Patient's blood pressure is elevated today 148/104 she had reduced her Bystolic to 10 mg per day based on the directions of her last cardiology visit however is obvious that the patient needs high dose of Bystolic. She will resume Bystolic 20 mg daily. Cardiac exam is benign. Depression 04/06/2014 Overview (02/23/2017): Depression Goiter 04/06/2014 Overview (02/25/2017): GOITER NOS Insomnia 04/06/2014 Overview (02/25/2017): Insomnia Assessment & Plan (04/16/2020 7:09 PM CDT): Patient's years of poor sleep pattern. She falls asleep around 3:00 a.m. in the morning wakes up around 8 sometimes earlier.. Some fatigue during the day. I gave patient information sleep hygiene at this time she is drinking more than usual with the COVID-19 restrictions this may be aggravating her sleep disturbance. Patient also seeing can psychiatry for depression she was given Seroquel 50 mg daily she stop taking and she was feeling too sedated on it. Advised patient she can take a 25 mg Seroquel. However given the fact she has tried drinking daily specially at night this may have a lot to do with her sedation on Seroquel. Assessment & Plan (02/03/2019 1:51 PM CDT): Patient is on /Ambien from her neurologist. Pain in shoulder 03/21/2014 Gastro-esophageal reflux disease without esophag itis 12/14/2013 Assessment & Plan (02/03/2019 1:51 PM CDT): GERD symptoms pretty much controlled with Prilosec/omeprazole. Osteopenia 06/18/2013 Disorder of pelvis 03/05/2013 Overview (02/25/2017): Pelvic floor dysfunction Fibrositis 03/05/2013 Overview (02/23/2017): Fibromyalgia Ventral hernia without obstruction or gangrene 0 01/24/2013 Diverticulosis of intestine without perforation or abscess without bleeding 01/24/2013 Assessment & Plan (09/16/2020 5:29 PM CDT): No acute issues at this time. 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 No other findings present on this exam for here Other fatigue 01/16/2019 01/12/2020 Assessment & Plan (01/16/2019 5:57 PM BODY PAINTER): Patient's history of fatigue depression is much better. However recently her fatigue is increased she has noticed a change after going to Bystolic 40 mg daily.. Bystolic is reduced back to 20 mg daily see if this will make a difference with respect her fatigue. Seizure-like activity 09/19/20182019 Brain mass 09/19/2018 08/31/2019 Poison shala dermatitis 07/10/20182017 Assessment & Plan (07/10/2018 5:40 PM CDT): Patient's poor is an average from head to toe. Not greater involvement a over face for certain has on legs ankles thorax. She has been symptomatic x1 week not totally resolving. Patient was given lipoma Medrol 80 mg IM a Medrol Dosepak. Patient has similar problem I saw in office little over week ago his continue be symptomatic. Patient is here with for this problem only at this visit. Need for diphtheria-tetanus- pertussis (Tdap) vaccine 05/13/2018 01/16/2019 Assessment & Plan (05/13/2018 1:51 PM CDT): Immunization brought up-to-date. Breast cancer screening 05/13/2018/03/2019 Assessment & Plan (05/13/2018 1:52 PM CDT): Mammogram order placed to bring her mammogram up-to-date. Shaking 05/13/2018 01/12/2020 Assessment & Plan (05/13/2018 1:51 PM CDT): Patient describes feeling shaky 2 weeks ago. Questionable some palpitations concurrently. She did contact her gauge checker referred on to primary care. With this particular episode she had no chest pain no sweating no shortness of breath. She also 1 other occasion had vertigo she checked her blood pressure is 100/62. Both of these episodes past without any further problems. Patient advised symptoms of very nonspecific and no precise treatment is indicated further testing . In the event this will become a recurrence situational greater symptoms overall probably do a Holter monitor. Painful orthopaedic hardware 01/19/2018 09/03/2019 Overview (01/19/2018): Added automatically from request for surgery [id number] Right ankle pain 01/19/2018 06/14/2019 Overview (01/19/2018): Added automatically from request for surgery [id number] Hospital discharge follow-up 08/14/2017 05/13/2018 Assessment & Plan (08/14/2017 5:53 PM CDT): One week ago this patient was sent to the hospital from this office because of nonspecific chest pain. She is admitted to hospital for 3 days etiology not determined so far and chest pain. She did have a nuclear stress test, transesophageal echocardiogram both were normal. She did leave the hospital on nitroglycerin. Patient is a follow-up visit with Cardiology in August. No new problems since I last saw her. No change in therapy. Precordial pain 08/01/2017 01/16/2019 Assessment & Plan (08/01/2017 5:02 PM CDT): Patient describes precordial pain around 5 a.m. this morning. Patient was asleep at the time of onset of chest pain. He has had some nausea during the day, no vomiting he has had some vague ache in her jaw are doing today this pain is different from her usual TMJ symptoms. Patient reports elevated blood pressure this morning 189/107, throughout today she checked her blood pressure systolic was never less than 160 diastolic levels have remained had 100-106. Patient referred to [facility] further evaluation for repeat chest pain throughout today. I contacted Hospital Emergency Room spoke with the emergency room nurse made them aware the patient is being referred reason for referral. Skin lesion 11/27/2015 04/16/2020 Overview (02/25/2017): Skin lesion Elevated cortisol level 09/10/201412/23 Chronic cholecystitis 02/21/20142018 Overview (02/25/2017): Chronic cholecystitis Umbilical hernia without obs truction or gangrene 06/08/2013 05/26/2019 Diverticulosis 01/24/2013 06/14/2019 Abdominal pain 01/24/2013 04/16/2020 Episodic tension-type headache 04/24/2012 09/03/2019 Immunizations Name Administration Dates Next Due Hep B Vaccine 02/23/2005,09/24/2004,08/25/2004 Influenza, Quadrivalent, Spl it, Intramuscular 09/14/2018,09/16/2016 Influenza, Quadrivalent, Spl it, Preservative Free, Intramuscular 08/31/2019 Influenza, Trivalent, IM (MDV) 09/17/2015 Influenza, Unspecified 09/14/2018,08/24/2017 Tdap 05/11/2018 Social History Tobacco Use Types Packs/Day Years Used Date Smoking Tobacco: Every Day Cigarettes Smokeless Tobacco: Never Tobacco Cessation:Ready to Q uit: Not Asked; Counseling Given: Not Answered Alcohol Use Standard Drinks/Week Comments No 0 [...] on file 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:46 AM BODY PAINTER Gender Identity Not on file Sexual Orientation Not on file Last Filed Vital Signs Vital Sign Reading Time Taken Comments Blood Pressure 148/89 11/07/2024 2:29 PM BODY PAINTER Pulse 85 11/07/2024 2:29 PM BODY PAINTER Temperature 36.6 ??C (97.9 ??F) 02/20/2024 10:55 AM C DT Respiratory Rate 16 07/31/2024 2:18 PM CDT Oxygen Saturation 96% 11/01/2024 3:33 PM BODY PAINTER Inhaled Oxygen Concentration - - Weight 73 kg (161 lb) 11/07/2024 2:29 PM BODY PAINTER Height 149.9 cm (4' 11 ) 11/07/2024 2:29 PM BODY PAINTER Body Mass Index 32.52 11/07/2024 2:29 PM BODY PAINTER Plan of Treatment Not on file Medical Devices Implanted Type Area Commercial Truck Driver Device Identifier Shelf Expiration Date Model / Serial / Lot Filler Bone Void Norian Calcium Phosphate Fiber 3 Ml Drillable Inject Reinforced Bioresorbable Biocompatible Isothermic Sterile - [id number] Implanted:Qty: 1 on 01/31/2018 by Arnol Moreau MD at [facility] Right: Ankle Synthes I 05/18/2019 [id number] S / / [id number] Procedures Procedure Name Priority Date/Time Associated Diagnosis Comments COLONOSCOPY 02/23/2023 9:55 AM CDT DIGITAL MAMMOGRAPHY Routine 11/25/2015 1 1:33 AM BODY PAINTER SERUM HEPATITIS C AB Routine 03/05/2015 12:55 PM CDT from Last 3 Months or Most Recently Relevant to Health Maintenance Results * COLONOSCOPY (02/23/2023 9:55 AM CDT) Anatomical Region Laterality Modality Other Narrative Procedure Note Polina Rosa MD - 02/23/2023 9:55 AM CDT [facility] Patient Name: Shivani Betancur Procedure Date: 02/23/2023 9:55 AM Date of : 1965 Admit Type: Outpatient Age: 57 Gender: Female Attending MD: Polina Rosa M.D. Room: [facility] ENDOSCOPY ROOM 1 Note Status: Finalized Patient Profile: This is a 57 year old female. No family history of colon cancer. She has history of constipation inthe past and diverticulitis. Procedure: Colonoscopy Indications: Screening for colorectal malignant neoplasm, Last colonoscopy: December 2012 Referring MD: Margarito العراقي M.D. Providers: Polina Rosa M.D. Impression: - The entire examined colon is normal. - Diverticulosis in the sigmoid colon. - Internal hemorrhoids. - No specimens collected. Recommendation: - Repeat colonoscopy in 10 years for screening purposes. - Continue present medications. Medicines: Monitored Anesthesia Care Complications: No immediate complications. Estimated Blood Loss: Estimated blood loss: none. Procedure: Pre-Anesthesia Assessment: - Prior to the procedure, a History and Physicalwas performed, and patient medications and allergieswere reviewed. The patient's tolerance of previous anesthesia was also reviewed. The risks andbenefits of the procedure and the sedation options and risks were discussed with the patient. All questions were answered, and informed consent was obtained. Prior Anticoagulants: The patient has taken noanticoagulant or antiplatelet agents. ASA Grade Assessment: III -A patient with severe systemic disease. Afterreviewing the risks and benefits, the patient was deemed in satisfactory condition to undergo the procedure. The benefits, risks and alternatives of theprocedure and sedation were discussed and informed consentwas obtained. All questions were answered. Please referto the signed informed consent document in the medical record. The bowel preparation used was Miralax and bisacodyl tablets via split dose instruction. The scope was passed under direct vision. The Pediatric Colonoscope PCF-H190L [id number] was introducedthrough the anus and advanced to the the cecum, identifiedby appendiceal orifice and ileocecal valve. Thequality of the bowel preparation was good. Bowel prep was administered using a split dose. Findings: The perianal and digital rectal examinations were normal. The cecum appeared normal. The colon (entire examined portion) appeared normal. No polyps and no mass lesions noted. Mild diffuse changes of melanosis coli noted. Multiple medium-mouthed diverticula were found in the sigmoid colon.No inflammatory changes noted. Internal hemorrhoids were found during retroflexion. The hemorrhoids were small. Electronically signed by Polina Rosa M.D. Polina Rosa M.D. 02/23/2023 12:41:24 PM Number of Addenda: 0 Note Initiated On: 02/23/2023 9:55 AM Procedure Code(s): --- Professional --- 07524, Colonoscopy, flexible; diagnostic, including collection of specimen(s) by brushing or washing, when performed (separateprocedure) Diagnosis Code(s): --- Professional --- Z12.11, Encounter for screening for malignant neoplasm of colon K64.8, Other hemorrhoids K57.30, Diverticulosis of large intestine without perforation orabscess without bleeding CPT copyright 2020 [employer]. All rights reserved. The codes documented in this report are preliminary and upon accounts payable or receivable clerk reviewmay be revised to meet current compliance requirements. Recognized by the [employer] for promoting quality in endoscopy us Polina Rosa MD ENDOSCOPY PROCEDURES Final Result * DIGITAL MAMMOGRAPHY (11/25/2015 11:33 AM BODY PAINTER) Anatomical Region Laterality Modality Breast Mammography 11/25/2015 11:3 3 AM BODY PAINTER Narrative 11/28/2015 11:13 AM BODY PAINTER Mr/Td Screening Mamm Bi ??Acc#: ??[id number] DATE OF EXAM: ??Nov ??2015 ADDENDUM PLEASE SEE BELOW Performed by: CLINICAL HISTORY: Screen. RESULT: Two views of each breast were obtained. ??By report, a prior study was performed at [facility] and a release form has been submitted to acquire the prior exam for review. There are scattered fibroglandular densities bilaterally. ??No suspicious mass or calcification is seen to suggest mammographic evidence of malignancy. ??There is a surgical marking ring in the central upper anterior half of the right breast. Digital technology was employed plus computer-aided detection software (R2) was utilized in interpretation of these images. ??This facility utilizes a reminder system to notify patients of yearly mammograms. IMPRESSION: 1. NO DEFINITIVE MAMMOGRAPHIC EVIDENCE OF MALIGNANCY. 2. IF PRIOR STUDIES BECOME AVAILABLE, AN ADDENDUM WILL BE ISSUED OTHERWISE ANNUAL FOLLOW-UP IS RECOMMENDED. BI-RADS CATEGORY 1 - NEGATIVE ADDENDUM: DR. BALDWIN/CRISTINA 11/27/15 Comparison is now made to prior studies from ??07/19/14 from [facility]. No interval suspicious mass or calcification has developed to suggest mammographic evidence of malignancy. Annual followup recommended. BI-RADS CATEGORY 1 - NEGATIVE Interpreting Physician: ??LEN BALDWIN M.D. ??Read on: ??Nov ??2015 11:34A Transcribed by: ??mrr ??On: Nov ??2015 ??2:39P Approved Electronically by: ??LEN BALDWIN M.D. ??on: ??Nov ??8 2015 11:13A Attending: ??RHIANNA HINOJOSA Requesting: ??DR RHIANNA HINOJOSA Requesting Fax: ??[phone] Attending Fax: ??-- Attending ID: ??[id number] Requesting ID: ??[id number] Report To 1 ID: ??[id number] Report To 1 Name: ??RHIANNA HINOJOSA Report To 1 FAX: ??-- NextGen Order #: Procedure Note Provider, MD Kip - 03/22/2017 Mr/Td Screening Mamm Bi Acc#: [id number] DATE OF EXAM: Nov 25 2015 ADDENDUM PLEASE SEEBELOW Performed by: CLINICAL HISTORY: Screen. RESULT: Two views of each breast were obtained. By report, a prior study wasperformed at [facility] and a release form has been submittedto acquire the prior exam for review. There are scattered fibroglandulardensities bilaterally. No suspicious mass or calcification is seen tosuggest mammographic evidence of malignancy. There is a surgical markingring in the central upper anterior half of the right breast. Digitaltechnology was employed plus computer-aided detection software (R2) wasutilized in interpretation of these images. This facility utilizes [employer] system to notify patients of yearly mammograms. IMPRESSION: 1. NO DEFINITIVE MAMMOGRAPHIC EVIDENCE OF MALIGNANCY. 2. IF PRIOR STUDIES BECOME AVAILABLE, AN ADDENDUM WILL BE ISSUED OTHERWISEANNUAL FOLLOW-UP IS RECOMMENDED. BI-RADS CATEGORY 1 - NEGATIVE ADDENDUM: DR. BALDWIN/CRISTINA11/27/15 Comparison is now made to prior studiesfrom 07/19[facility]14 from [facility]. No interval suspicious mass orcalcification has developed to suggest mammographic evidence ofmalignancy. Annual followup recommended. BI-RADS CATEGORY 1 - NEGATIVE Interpreting Physician: LEN BALDWIN M.D. Read on: Nov 25 2015 11:34A Transcribed by: alex On: Nov 25 2015 2:39P Approved Electronically by: LEN BALDWIN M.D. on: Nov 28 2015 11:13A Attending: RHIANNA HINOJOSA Requesting: DR RHIANNA HINOJOSA Requesting Attending Fax: -- Attending ID: [id number] Requesting ID: [id number] Report To 1 ID: [id number] Report To 1 Name: RHIANNA HINOJOSA Report To 1 FAX: -- NextGen Order #: us Historical Provider [facility] MAMMO PROCEDURES Celia l Result * Serum Hepatitis C ab (03/05/2015 12:55 PM CDT) HCV ab See Report HISTORICA L RESULTS Serum 03/05/2015 12:5 5 PM CDT Polina Rosa MD LAB BLOOD ORDERABLES Final Result Performing Organization Address City/State/[facility] Co de Phone Number HISTORICAL RESULTS from Last 3 Months or Most Recently Relevant to Health Maintenance Insurance [facility]/PPO Address: [address] [place] [id number] [facility] H[facility]/PPO Address: [place] [phone] [facility] Advance Directives For more information, please contact: [phone] * Full Code (Latest Code Status on File) Date Activated Date Inactivated Comments 02/23/2023 9:56 AM 02/23/2023 5:30 PM * Full Code Date Activated Date Inactivated Comments 02/23/2023 9:56 AM 02/23/2023 9:56 AM Care Teams Manufacturer Agent Relationship Specialty Start Date End Date Margarito العراقي MD [address] [place] [address] PCP - General Family Medicine 09/04/20 Raymond Vela MD [address] [place] [address] Referring Physician Obstetrics and Gynecology 08/17/21
--- OUTSIDE RECORDS SUMMARY | 2024-11-19 04:48 | XMS_ITS | Encounter Summary ---
Author Organization [facility] Address [address] [place] [address] Care Team Providers Care Arbitrator Name Role Phone Margarito العرقاي MD Primary Care Provider [phone] Raymond Vela MD Unavailable Reason for Visit * Reason Comments Sleep Apnea 6mo f/u Encounter Details Date Type Department Care Team (Late st Contact Info) Description 11/01/2024 3:00 PM FILLING HAND Office Visit [facility] [address] [place] [address] Marcia Haider MD [address] [place] [address] [facility] [address] [place] [address] Obstructive sleep apnea syndrome (Primary Dx); Hypersomnia; Chronic insomnia; Meningioma (HCC) Social History Tobacco Use Types Packs/Day Years [...] on file 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 Gender Identity Not on file Sexual Orientation Not on file documented as of this encounter Last Filed Vital Signs Vital Sign Reading Time Taken Comments Blood Pressure 130/90 11/01/2024 3:33 PM FILLING HAND Pulse 78 11/01/2024 3:33 PM FILLING HAND Temperature - - Respiratory Rate - - Oxygen Saturation 96% 11/01/2024 3:33 PM FILLING HAND Inhaled Oxygen Concentration - - Weight 75.5 kg (166 lb 6.4 oz) 11/01/2024 3:33 P M FILLING HAND Height 149.9 cm (4' 11 ) 11/01/2024 3:33 PM FILLING HAND Body Mass Index 33.61 11/01/2024 3:33 PM FILLING HAND documented in this encounter Progress Notes * Marcia Haider MD - 11/01/2024 3:00 PM CST 1. Moderate NEO: Ms. Betancur presents for follow-up. She is a very pleasant 59-year-old with obstructive sleep apnea syndrome on positive pressure therapy . She endorses continued compliance to the pressure therapy. She reports that she goes to bed at 10:00 p.m.-midnight, and awakens between 513 6:00 a.m.. Awakens rested. 2. Hypersomnia. Despite compliance with therapy patient reports exacerbation daytime sleepiness [place] Sleepiness scale score is 14. 3. Obesity. 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 Also on norco, flexiril and benadryl. Having difficulty staying asleep. CBT-I was suggested but she rather finds her own. 5. Muscle jerking. : On Ropinirole by PCP, stable. No longer on clonazepam. Physical examination: BP 130/90 (BP Location: Right arm, Patient Position: Sitting) Pulse 78 Ht 149.9 cm (4' 11 ) Wt 75.5 kg (166 lb 6.4 oz) SpO2 96% BMI 33.61 kg/m?? Constitutional: oriented to person, place, and time. Appears well-developed and well-nourished. HENT: Head: Normocephalic and atraumatic. Mouth/Throat: Oropharynx is clear and moist. Eyes: Conjunctivae and EOM are normal. eye exhibits no discharge. No scleral icterus. Neck: Normal range of motion. Neck supple. No thyromegaly present. Cardiovascular: Normal rate, regular rhythm and normal heart sounds. Exam reveals no gallop and no friction rub. No murmur heard. Pulmonary/Chest: Effort normal and breath sounds normal. No respiratory distress. has no wheezes. has no rales. Exhibits no tenderness. Abdominal: Soft. exhibits no distension and no mass. There is no tenderness. Musculoskeletal: Normal passive range of movements; no muscle tenderness Neurological: Alert and oriented to person, place, and time. No cranial nerve deficit. Exhibits normal muscle tone. Skin: Skin is warm. No rash noted. No erythema. Psychiatric: normal mood and affect. Judgment normal. AP 1. Moderate obstructive sleep apnea syndrome: Endorses continued compliance with positive pressure therapy. Compliance download reveals compliance and effective therapy. The physiology of sleep disordered breathing and its increased association with hypertension, diabetes, heart arrhythmia, strokes, heart attacks, heart failure, hypersomnia, obesity and mood disorders was discussed. Compliance download from 10/01/2024-10/30/2024 was reviewed. 100% usage averaging 7 hours of therapy residual AHI 3.2. 2. Insomnia: Continue Ambien 10 mg HS, melatonin 5 mg. Despite norco, flexeril, benadryl, she has difficulty with sleep pattern. discussed she should not take more than 10 mg of ambien nightly. 3. Obesity: The effects of obesity obstructive sleep apnea syndrome and other morbidities was discussed. Recommended diet and exercise in losing weight. Patient verbalizes an understanding. 4. Meningioma: Stable. Last 2021. Recommend repeating scan next year. Denies any symptoms of headaches 5. Hypersomnia patient reports continued persistent daytime sleepiness. [place] Sleepiness scale score is 14. Samples of Sunosi 75 mg given. Monitor response to the above ING HAND documented in this encounter Plan of Treatment Not on file documented as of this encounter Visit Diagnoses Diagnosis Obstructive sleep apnea syndrome- Primary Obstructive sleep apnea (adult) (pediatric) Hypersomnia Hypersomnia, unspecified Chronic insomnia Insomnia, unspecified Meningioma (HCC) Benign neoplasm of cerebral meninges documented in this encounter Care Teams Arbitrator Relationship Specialty Start Date End Date Margarito العراقي MD [address] [place] [address] PCP - General Family Medicine 09/04/20 Raymond Vela MD [address] [place] [address] Referring Physician Obstetrics and Gynecology 08/17/21 documented as of this encounter
--- OUTSIDE RECORDS SUMMARY | 2024-11-19 04:48 | XMS_ITS | Encounter Summary ---
Author Organization [facility] Address [address] [place] [address] Phone Care Team Providers Care Crusher Loader Operator Name Role Phone Margarito العراقي MD Primary Care Provider [phone] Raymond Vela MD Unavailable [phone] Reason for Visit * Reason Onset Date Comments Scheduling Appointments 07/06/2024 Encounter Details Date Type Department Care Team (Late st Contact Info) Description 07/06/2024 Telephone [facility] Infusion Therapy [address] 5[address] [place] [address] [place] [address] Marlee Miller, RN Scheduling Appointments Social History Tobacco Use Types Packs/Day Years [...] on file 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 LVM to return call to infusion center with number [phone]. documented in this encounter Plan of Treatment Not on file documented as of this encounter Visit Diagnoses Not on filedocumented in this encounter Care Teams Crusher Loader Operator Relationship Specialty Start Date End Date Margarito العراقي MD [address] [place] [id number] PCP - General Family Medicine 09/04/20 Raymond Vela MD [address] [place] [address] Referring Physician Obstetrics and Gynecology 08/17/21 documented as of this encounter
--- OUTSIDE RECORDS SUMMARY | 2024-11-19 04:48 | XMS_ITS | Encounter Summary ---
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 Gender Identity Not on file Sexual Orientation Not on file documented as of this encounter Medications at Time of Discharge atorvastatin (LIPITOR) 20 mg tablet Take 1 tablet (20 mg total) by mouth daily 90 tablet 3 4 azelastine 205.5 mcg (0.15 %) spray,non-aerosol SPRAY 1 SPRAY INTO EACH NOSTRIL TWICE A DAY 1 benzonatate (TESSALON) 200 mg capsuleIndication s:Acute non-recurrent pansinusitis Take 1 capsule (200 mg total) by mouth 3 (three) times a day as needed for cough 30 capsule 4 calcium carbonate (CALCIUM 600 ORAL) Take by mouth 2 (two) times a day cholecalciferol, vitamin D3, (VITAMIN D3 ORAL) Take by mouth clindamycin (CLEOCIN) 2 % vaginal cream INSERT ONE APPFUL VAGINALLY EVERY DAY AT BEDTIME FOR 3 DAYS 4 cyclobenzaprine (FLEXERIL) 10 mg tablet Take 1 tablet (10 mg total) by mouth 3 (three) times a day as needed [address] (CYMBALTA) 30 mg capsule 1 ergocalciferol (VITAMIN D) 50,000 unit capsule ergocalciferol (vitamin D2) 1,250 mcg (50,000 unit) capsule TAKE 1 CAPSULE BY MOUTH ONCE PER WEEK estradioL (ESTRACE) 0.01 % (0.1 mg/gram) vaginal cream 1 gabapentin, bulk, 100 % powder 3 2 hydroCHLOROthiazi de (HYDRODIURIL) 25 mg tablet Take 1 tablet (25 mg total) by mouth daily 90 tablet 3 4 HYDROcodone-aceta minophen (NORCO) 5-325 mg per tablet Take 1 tablet by mouth 3 (three) times a day 1 irbesartan (AVAPRO) 75 mg tablet Take 2 tablets (150 mg total) by mouth daily 180 tablet 3 4 ketamine HCl (ketamine, bulk,) 100 % powder 3 2 lubiprostone (AMITIZA) 24 mcg capsule TAKE 1 CAPSULE BY MOUTH TWICE A DAY FOR 30 DAYS 4 meloxicam (MOBIC) 15 mg tablet Take 1 tablet (15 mg total) by mouth daily 3 metoprolol tartrate (LOPRESSOR) 50 mg immediate release tablet Take 1 tablet (50 mg total) by mouth 2 (two) times a day 180 tablet 3 4 NARCAN 4 mg/actuation spray,non-aerosol 9 pregabalin (LYRICA) 75 mg capsule Take 1 capsule (75 mg total) by mouth daily 0 rOPINIRole (REQUIP) 2 mg tablet Take 1 tablet (2 mg total) by mouth nightly 2 zolpidem (AMBIEN) 10 mg tablet Take 1 tablet (10 mg total) by mouth nightly 30 tablet 5 3 06/18/20 24 documented as of this encounter Discharge Disposition Disposition Code Departure Means Destination Discharge to home or self care documented in this encounter Plan of Treatment Not on file documented as of this encounter Procedures Procedure Name Priority Date/Time Associated Diagnosis Comments XR WRIST RIGHT 3 OR MORE VIEWS Schedule Routine, Read Routine (OP Routine) 05/10/2024 3:28 PM CDT Right wrist pain documented in this encounter Results * XR Wrist Right 3 or More Views (05/10/2024 3:28 PM CDT) Anatomical Region Laterality Modality Upper Extremities, Wrist Right Compute d Radiography 05/12/2024 4:17 PM CDT Narrative 05/12/2024 4:19 PM CDT EXAM DESCRIPTION: XR WRIST RIGHT 3 OR MORE VIEWS REASON FOR STUDY: Persistant right ulnar dorsal wrist pain ?? Pain started 4 weeks ago after picking up heavy item - felt/heard a pop in wrist ??Swelling and medial pain since ?? HX carpal tunnel surgery ? TECHNIQUE: There are 3 ??radiographic view(s) of the ??right wrist . COMPARISON: No prior. FINDINGS: Normal mineralization. ??No fracture or dislocation. ??Trivial osteoarthritis 1st carpometacarpal joint. ??Soft tissues are unremarkable. IMPRESSION: No acute fracture. Trivial osteoarthritis 1st carpometacarpal joint. THIS IS AN ELECTRONICALLY VERIFIED FINAL REPORT 05/12/2024 4:19 PM - Electronically signed by ??Jones Diaz M.D. MJ: TOMASZ D: ??05/12/2024 4:19 PM T: ??05/12/2024 4:19 PM Report ID: [id number] Reading Location: ??[id number] Procedure Note Jones Diaz MD - 05/12/2024 EXAM DESCRIPTION: XR WRIST RIGHT 3 OR MORE VIEWS REASON FOR STUDY: Persistant right ulnar dorsal wrist pain Pain started 4 weeks ago after picking up heavy item - felt/heard a pop in wrist Swelling and medial pain since HX carpal tunnel surgery TECHNIQUE: There are 3 radiographic view(s) of the right wrist . COMPARISON: No prior. FINDINGS: Normal mineralization. No fracture or dislocation. Trivialosteoarthritis 1st carpometacarpal joint. Soft tissues are unremarkable. IMPRESSION: No acute fracture. Trivial osteoarthritis 1st carpometacarpal joint. THIS IS AN ELECTRONICALLY VERIFIED FINAL REPORT 05/12/2024 4:19 PM - Electronically signed by Jones Diaz M.D. MJ: TOMASZ Report ID: [id number] Reading Location: [id number] Venita Baptiste HIGH SCHOOL ASSISTANT FOOTBALL COACH IMG XR PROCEDURES Final Result documented in this encounter Visit Diagnoses Not on filedocumented in this encounter Care Teams Ceiling Insulation Blower Relationship Specialty Start Date End Date Margarito العراقي MD [address] [place] [address] PCP - General Family Medicine 09/04/20 Raymond Vela MD [address] [place] [address] Referring Physician Obstetrics and Gynecology 08/17/21 documented as of this encounter
--- OUTSIDE RECORDS SUMMARY | 2024-11-19 04:48 | XMS_ITS | Encounter Summary ---
Author Organization [facility] Address [address] [place] [address] Phone Care Team Providers Care Environmental Assistant Name Role Phone Margarito العراقي MD Primary Care Provider [phone] Raymond Vela MD Unavailable [phone] Reason for Visit * Reason Comments Follow-up Encounter Details Date Type Department Care Team (Late st Contact Info) Description 05/10/2024 2:45 PM CDT Office Visit [facility] Surgery [address] 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 At that time she was givenKenalog injections for bilateral carpal tunnel syndrome and left thumb CMC arthritis. S: She has been wearing braces at night but now having return of numbness and tingling to bilateralhands right greater than left. She also has noticed dropping objects more frequently. It is also having some return of pain to her left palm over APB muscles. Also in early March she had twisted her right wrist that has had continuous discomfort over ulnar styloid that is aggravated with pressure and wrist movement. O: On visual exam I do not note deformities. Right ulnar styloid is slightly larger compared to left, I do not appreciate palpable edema, ecchymosis or lacerations. She has full range of motion of bilateral hands he was able to make a full fist and fully extend. Minimal discomfort with pressure over left CMC and negative grind test. She was able to sense light touch of all digits that reports decreased sensation of right hand compared to left 1st 3 digits. Tinel's negative bilaterally A/P: 58 y.o. female right-hand dominant female returns with recurring bilateral carpal tunnel syndrome. She had had successful resolution of symptoms after injections 1.5 yrs ago. When symptoms return she started to wear braces at night that originally had symptoms but now is having symptoms throughout the day. Bilateral Kenalog injections to carpal tunnel Exam is not overly consistent with CMC arthritis. At this time we will treat for carpal tunnel syndrome. She will be scheduled to return in 4 weeks, if she still has pain to left palm we will then [facility] Kenalog injection. Right wrist pain over ulnar styloid: I have recommended that she wear her gel flex splint to her right hand throughout day and night for the next 2-3 weeks to see if this helps reduce discomfort. She will also be sent for a wrist x-ray. Follow up: 4 weeks for further evaluation of left CMC arthritis. Restriction: as noted above I spent 20 minutes on this patient encounter which included review of medical records. Over half the time was spent with the patient face to face discussing the treatment plan, counseling and coordinating care. Venita Baptiste NP 05/09/24 5:29 PM This document was transcribed using voice recognition software without a human behavioral modification assistant. Itmay contain typographical, grammatical, and/or syntax errors. documented in this encounter Procedure Notes * Venita Baptiste NP - 05/10/2024 2:45 PM CDT Procedures PROCEDURE: Carpal Tunnel Steroid Injection After discussing the risks (including bleeding, infection, damage to nearby structures including skin/tendon), benefits, alternatives, and expected post- injection course, verbal informed consent was obtained by the patient. After informed consent was obtained, the patient's volar right wrist was prepped with alcohol. Then0.5 mL 1% lidocaine was injected to anesthetize tissue followed by 1 mL Kenalog (40 mg/mL) and wereinjected into the carpal tunnel space. Hemostasis was excellent. A Band-Aid was applied. Patient tolerated the procedure without issue. PROCEDURE: Carpal Tunnel Steroid Injection After discussing the risks (including bleeding, infection, damage to nearby structures including skin/tendon), benefits, alternatives, and expected post- injection course, verbal informed consent was obtained by the patient. After informed consent was obtained, the patient's volar left wrist was prepped with alcohol. Then 0.5 mL 1% lidocaine was injected to anesthetize tissue followed by 1 mL Kenalog (40 mg/mL) and were injected into the carpal tunnel space. Hemostasis was excellent. A Band-Aid was applied. Patient tolerated the procedure without issue. documented in this encounter Plan of Treatment [...] PM T: ??05/12/2024 4:19 PM Report ID: [id number] Reading Location: [id number] Procedure Note Jones Diaz MD - 05/12/2024 [...] Jones Diaz M.D. MJ: TOMASZ Report ID: [id number] Reading Location: [id number] Venita Jasso Sejose a SPANISH PROFESSOR IMG XR PROCEDURES Final Result documented in this encounter Visit Diagnoses Diagnosis Right wrist pain- Primary Pain in joint, forearm Carpal tunnel syndrome of left wrist Carpal tunnel syndrome of right wrist documented in this encounter Administered Medications Inactive Administered Medications - up to 3 most recent administrations Medication Order MAR Action Action Date Dose Rate Site lidocaine (XYLOCAINE) 10 mg/mL (1 %) injection 10 mg 10 mg (1 mL), infiltration, Once, On Amaris 05/10/24 at 1545, For 1 dose, Indications: Administration of Local AnesthesiaIndications:Administratio n of Local Anesthesia Given 05/10/2024 3:00 PM CDT 10 mg triamcinolone (KENALOG) 40 mg/mL injection 80 mg 80 mg, other, Once, On Amaris 05/10/24 at 1545, For 1 doseIndications:Carpal tunnel syndrome of left wrist,Carpal tunnel syndrome of right wrist Given 05/10/2024 3:00 PM CDT 80 mg documented in this encounter Discontinued Medications Medication Sig Discontinue Reason Start Date End Da te lubiprostone (AMITIZA) 8 mcg capsule Take 1 capsule (8 mcg total) by mouth 2 (two) times a day with meals 05/10/2024 documented as of this encounter Historical Medications * This list may reflect changes made after this encounter. lubiprostone (AMITIZA) 24 mcg capsule TAKE 1 CAPSULE BY MOUTH TWICE A DAY FOR 30 DAYS 05/07/2024 added in this encounter Care Teams Environmental Assistant Relationship Specialty Start Date End Date Margarito العراقي MD [address] [place] [id number] PCP - General Family Medicine 09/04/20 Raymond Vela MD [address] [place] [id number] Referring Physician Obstetrics and Gynecology 08/17/21 documented as of this encounter
--- OUTSIDE RECORDS SUMMARY | 2024-11-19 04:48 | XMS_ITS | Encounter Summary ---
Author Organization [facility] Address [address] [place] [address] Phone Care Team Providers Care Prison Classification Counselor Name Role Phone Margarito العراقي MD Primary Care Provider [phone] Raymond Vela MD Unavailable [phone] Reason for Visit * Reason Comments Osteoporosis Encounter Details Date Type Department Care Team (Late st Contact Info) Description 03/19/2024 3:00 PM CDT Office Visit [facility] [address] [facility] 5th [place] [address] [place] [id number] Urbano Delacruz MD [address] [facility] [address] [place] [address] Age-related osteoporosis without current pathological fracture (Primary [...] on file 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 Gender Identity Not on file Sexual Orientation Not on file documented as of this encounter Last Filed Vital Signs Vital Sign Reading Time Taken Comments Blood Pressure - - Pulse - - Temperature - - Respiratory Rate - - Oxygen Saturation - - Inhaled Oxygen Concentration - - Weight 73.2 kg (161 lb 6.4 oz) 03/19/2024 2:58 P M CDT Height 149.9 cm (4' 11 ) 03/19/2024 2:58 PM CDT Body Mass Index 32.6 03/19/2024 2:58 PM CDT documented in this encounter Patient Instructions * Patient Instructions* Urbano Delacruz MD - 03/19/2024 3:00 PM CDT Bone Health Program Discharge and Information Sheet Contact: Call: [phone] or [phone] FAX: [phone] Name: Dale Betancur Thank you for choosing the [facility] Program for consultation about your bone health! We hope that your experience with our program was informative, pleasant, and valuable. Following are a set of instructions that we ask you to read carefully and follow so that the recommenda tions you have received can be correctly implemented. PLAN: the following has been recommended as treatment for your bone health - Reclast (1 infusion every 12 months) - See further instructions below - Calcium 4399-3796 mg daily, through a combination of diet and supplements - Vitamin D 9673-4512 IU daily - Weight bearing activity as tolerated (Walking is great!) - Fall prevention: be cautious in the winter months with regards to ice, snow and other slippery conditions both outside, in entry ways and in public buildings; use railings on stairs; remove unnecessary trip hazards from the home such as loose electrical cords and throw rugs - Please call the office with any new fracture or initiation of prednisone - Doctors visit and Bone Density Exam in 1 year Follow Up Appointment: Please stop at the front desk lead to make a follow-up appointment in 1 year or call [phone]. Every attempt will be made to schedule the follow-up appointment at the physician's recommended time point. Lab Test Results: If you have been given lab orders to have your blood drawn, please allow for a few days for the results to come back and your physician review them. Results are viewable by you in My Chart as soon as they become available. Your provider may add some comments as well. If you have not received your results or have not heard back from us after two weeks since your blood was drawn, please feel free to give our office a call at [phone] option # 1. Bone Density Testing: To ensure the best quality of care, we strongly recommend you have all your follow up bone density tests done at our center. Bone density tests cannot be compared between different facilities. If another physician requests a bone density test for you, please let her/him know that your bone density is being monitored by the [facility]. If your other providers have questions or would like a report of your bone density scans, they can contact [facility] [phone] or Medical Records at [phone]. Important! Always remember to stop taking your calcium supplements 24 hours before you are scheduled to have your bone density test at your next visit. If you need to make changes to your follow-up appointment or are running late to your visit at the Bone Health Program, please contact us as soon as possible at [phone] ([facility]), or [phone] ([facility]), or [phone] ([facility]). We work on a very tight schedule and depending on the circumstances it may be necessary to resched ule your appointment if no other time slot is available on the same day. [employer] patient portal allows you to view your medical records, test results, personal information,request prescription renewals, review past appointments, request new ones and securely communicate online with our office. Ask at the speech language pathologist prn desk about receiving an invite to join [employer] portal. For questions about accessing [employer] patient portal call [phone]. Feel free to visit our web site for further information on medications, diet, exercise and other things you can do to take charge of your bone health: [email or web address] Thank you for choosing the [facility]! documented in this encounter Progress Notes * Judy Jensen MD - 03/19/2024 3:00 PM CDT 03/19/2024 No ref. provider found CHIEF COMPLAINT: Patient Presents for a Bone Health Evaluation. HISTORY OF PRESENTING ILLNESS 58 y.o. female has a past medical history of Disorder of thyroid, Fibrositis, Gastroesophageal reflux disease, OTHER MEDICAL (1988), OTHER MEDICAL (1991), OTHER MEDICAL (1982), OTHER MEDICAL, OTHER MEDICAL, OTHER MEDICAL, OTHER MEDICAL, OTHER MEDICAL, OTHER MEDICAL, OTHER MEDICAL, OTHER MEDICAL, OTHER MEDICAL, Hyperlipidemia, Hypertension, Hypertension, PONV (postoperative nausea and vomiting), and Sleep apnea. She has no past medical history of Malignant hyperthermia. presents today for a bone health evaluation. 1. Osteoporosis based on an L4 asymptomatic vertebral compression fracture, age indeterminate on plain films, even though the patient's bone mineral density in June of 2015 L1 through L4 T score was -2.0 and left total hip T-score of 0.9 is in the osteopenic range. In February the patient sustained a trimalleolar left ankle fracture from trivial trauma, status post ORIF in April of 2015. S/p removal of her surgical hardware from her ORIF performed in 2017. It appears to have radiographically and clinically healed. There was some concern from the patient's orthopedician for intraop bone quality.The patient was initiated on Forteo in July of 2015-2017, transitioned to prolia therapy. 2. Vitamin D deficiency. History of prior elevations of alkaline phosphatase, though normalization on CMP dated 07/09/2015 prior to Forteo start. 3. HTN 4. NEO 5. Obesity Interval history: No major changes to health status. No recent hospitalizations. No interval falls or fractures. Approximately one year ago, was started on estrogen and testosterone pellets for hot flashes by in [place]. Stopped the pellets about 7 months ago because of elevated blood pressures on the testosterone. Currently using estradiol cream. DEXA: June of 2015 L1 through L4 T score was -2.0 and left total hip T-score of 0.9 is in the osteopenic range Prior Fracture History: L4 asymptomatic vertebral compression fracture, age indeterminate on plain films, Trimalleolar left ankle fracture from trivial trauma, status post ORIF in April of 2015. S/p removalof her surgical hardware from her ORIF performed in 2018. It appears to have radiographically and clinically healed. There was some concern from the patient's orthopedician for intraop bone quality. Prior Pharmacologic Therapy: Forteo [id number] Prolia 11/03/2018, 05/07/2019, 12/14/2019, 06/16/2020 Reclast 02/02/2021 Calcium and Vitamin D Supplementation: Vitamin D2 50,000 international units weekly; hard to remember this Calcium 600 mg twice per day; taking on average once per week Diet: [place] yogurt daily, milk with breakfast daily Activity Levels: Walking 10,000 steps per day about 6/7 days in the week Tobacco use: Smoking between 1/2 to 1 PPD these days. is still currently smoking, as well. They are both interested in quitting. Tried Wellbutrin in the past, but this had side effects. Fall Risk/ History of Falls: none ROS: Difficulty with weight loss PAST MEDICAL HISTORY: Active Ambulatory Problems Diagnosis Date Noted Essential hypertension 05/19/2014 Depression 04/06/2014 Disorder of pelvis 03/05/2013 Fibrositis 03/05/2013 Goiter 04/06/2014 Insomnia 04/06/2014 Osteoporosis 09/30/2014 Abdominal hernia 10/28/2016 NEO (obstructive sleep apnea) 09/08/2017 Gastro-esophageal reflux disease without esophagitis 12/14/2013 Ptosis of eyelid 02/14/2018 Ventral hernia without obstruction or gangrene 01/24/2013 Lumbago 12/21/2011 Vitamin D deficiency disease 10/26/2012 Osteopenia 06/18/2013 Obesity 05/27/2014 Pain in female pelvis 09/26/2008 Pain in shoulder 03/21/2014 Atypical migraine 04/24/2012 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 Fibromyalgia 10/07/2015 Diverticulosis of intestine without perforation or abscess without bleeding 01/24/2013 Smoking trying to quit 01/16/2019 Alcohol abuse 02/02/2019 Acute cystitis without hematuria 05/26/2019 Chronic idiopathic constipation 09/16/2020 Abnormal findings on diagnostic imaging of breast 08/17/2021 Hyperlipidemia 07/11/2020 Benign hypertension 11/27/2019 Carpal tunnel syndrome of left wrist 10/11/2021 Arthritis of carpometacarpal (CMC) joint of left thumb 10/11/2021 Encounter for screening colonoscopy 01/20/2023 Palpitations 05/02/2023 Dizziness 01/30/2024 Resolved Ambulatory Problems Diagnosis Date Noted Chronic cholecystitis 02/21/2014 Skin lesion 11/27/2015 Precordial pain 08/01/2017 Hospital discharge follow-up 08/14/2017 Painful orthopaedic hardware (HCC) 01/19/2018 Right ankle pain 01/19/2018 Diverticulosis 01/24/2013 Umbilical hernia without obstruction or gangrene 06/08/2013 Episodic tension-type headache 04/24/2012 Elevated cortisol level 09/10/2014 Abdominal pain 01/24/2013 Need for fvyofzhfps-izszwzc-ueykgzdnj (Tdap) vaccine 05/13/2018 Breast cancer screening 05/13/2018 Shaking 05/13/2018 Poison shala dermatitis 07/10/2018 Seizure-like activity (HCC) 09/19/2018 Brain mass 09/19/2018 Other fatigue 01/16/2019 Left ear pain 02/12/2020 Past Medical History: Diagnosis Date Disorder of thyroid Gastroesophageal reflux disease HX OTHER MEDICAL 1988 HX OTHER MEDICAL 1991 HX OTHER MEDICAL 1982 HX OTHER MEDICAL HX OTHER MEDICAL HX OTHER MEDICAL HX OTHER MEDICAL HX OTHER MEDICAL HX OTHER MEDICAL HX OTHER MEDICAL HX OTHER MEDICAL HX OTHER MEDICAL Hypertension Hypertension PONV (postoperative nausea and vomiting) Sleep apnea Patient Active Problem List Diagnosis Essential hypertension Depression Disorder of pelvis Fibrositis Goiter Insomnia Osteoporosis Abdominal hernia NEO (obstructive sleep apnea) Gastro-esophageal reflux disease without esophagitis Ptosis of eyelid Ventral hernia without obstruction or gangrene Lumbago Vitamin D deficiency disease Osteopenia Obesity Pain in female pelvis Pain in shoulder Atypical migraine Anaclitic depression Fibromyalgia Diverticulosis of intestine without perforation or abscess without bleeding Smoking trying to quit Alcohol abuse Acute cystitis without hematuria Chronic idiopathic constipation Abnormal findings on diagnostic imaging of breast Hyperlipidemia Benign hypertension Carpal tunnel syndrome of left wrist Arthritis of carpometacarpal (CMC) joint of left thumb Encounter for screening colonoscopy Palpitations Dizziness FAMILY HISTORY: Family History Problem Relation Age of Onset [...] Osteoporosis Neg Hx Hip fracture Neg Hx SOCIAL HISTORY: Prior history of tobacco use Social History Tobacco Use Smoking Status Every Day Current packs/day: 0.75 Types: Cigarettes Smokeless Tobacco Never CURRENT MEDICATIONS: Current Outpatient Medications: atorvastatin (LIPITOR) 20 mg tablet, TAKE ONE TABLET BY MOUTH ONCE DAILY, Disp: 90 tablet, Rfl: 1 azelastine 205.5 mcg (0.15 %) spray,non-aerosol, SPRAY 1 SPRAY INTO EACH NOSTRIL TWICE A DAY (Patient not taking: Reported on 03/14/2023), Disp: , Rfl: benzonatate (TESSALON) 200 mg capsule, Take 1 capsule (200 mg total) by mouth 3 (three) times a dayas needed for cough, Disp: 30 capsule, Rfl: 0 calcium carbonate (CALCIUM 600 ORAL), Take by mouth 2 (two) times a day, Disp: , Rfl: cholecalciferol, vitamin D3, (VITAMIN D3 ORAL), Take by mouth, Disp: , Rfl: clindamycin (CLEOCIN) 2 % vaginal cream, INSERT ONE APPFUL VAGINALLY EVERY DAY AT BEDTIME FOR 3 DAYS, Disp: , Rfl: cyclobenzaprine (FLEXERIL) 10 mg tablet, Take 1 tablet (10 mg total) by mouth 3 (three) times a dayas needed, Disp: , Rfl: DULoxetine DR (CYMBALTA) 30 mg capsule, , Disp: , Rfl: ergocalciferol (VITAMIN D) 50,000 unit capsule, ergocalciferol (vitamin D2) 1,250 mcg (50,000 unit)capsule TAKE 1 CAPSULE BY MOUTH ONCE PER WEEK, Disp: , Rfl: estradioL (ESTRACE) 0.01 % (0.1 mg/gram) vaginal cream, , Disp: , Rfl: gabapentin, bulk, 100 % powder, , Disp: , Rfl: 3 hydroCHLOROthiazide (HYDRODIURIL) 25 mg tablet, TAKE 1 TABLET BY MOUTH EVERY DAY, Disp: 30 tablet, Rfl: 11 HYDROcodone-acetaminophen (NORCO) 5-325 mg per tablet, Take 1 tablet by mouth 3 (three) times a day, Disp: , Rfl: irbesartan (AVAPRO) 75 mg tablet, TAKE 2 TABLETS BY MOUTH DAILY, Disp: 60 tablet, Rfl: 5 ketamine HCl (ketamine, bulk,) 100 % powder, , Disp: , Rfl: 3 lubiprostone (AMITIZA) 8 mcg capsule, Take 1 capsule (8 mcg total) by mouth 2 (two) times a day with meals, Disp: , Rfl: meloxicam (MOBIC) 15 mg tablet, Take 1 tablet (15 mg total) by mouth daily, Disp: , Rfl: metoprolol tartrate (LOPRESSOR) 50 mg immediate release tablet, TAKE 1 TABLET BY MOUTH TWICE A DAY (Patient taking differently: Take 2 tablets (100 mg total) by mouth 2 (two) times a day), Disp: 60 tablet, Rfl: 11 NARCAN 4 mg/actuation spray,non-aerosol, , Disp: , Rfl: pregabalin (LYRICA) 75 mg capsule, Take 1 capsule (75 mg total) by mouth daily, Disp: , Rfl: rOPINIRole (REQUIP) 2 mg tablet, Take 1 tablet (2 mg total) by mouth nightly, Disp: , Rfl: zolpidem (AMBIEN) 10 mg tablet, Take 1 tablet (10 mg total) by mouth nightly, Disp: 30 tablet, Rfl:5 ALLERGIES: Allergies Allergen Reactions Ciprofloxacin Shortness of breath, [...] Nausea only Reaction: Itching, Nausea, Lisinopril Cough PHYSICAL EXAM: Vitals Ht 149.9 cm (4' 11 ) Wt 73.2 kg (161 lb 6.4 oz) BMI 32.60 kg/m?? Physical Exam Constitutional:well-developed, well-nourished, and in no distress. HENT: Head: Normocephalic and atraumatic. Eyes: Pupils are equal, round, and reactive to light. Conjunctivae and EOM are normal. Neck: Normal range of motion. Neck supple. No thyromegaly present. Cardiovascular: Normal rate, regular rhythm, normal heart sounds and intact distal pulses. Pulmonary/Chest: Effort normal and breath sounds normal. Abdominal: Soft. Bowel sounds are normal. exhibits no distension. There is no tenderness. Musculoskeletal: Normal range of motion. Spine is straight, no paraspinal edema or tenderness to palpation, gait is steady and unaided, 5/5 strength and normal tone throughout. Skin: Skin is warm and dry. Psychiatric: Mood, memory, affect and judgment normal. Vitals reviewed. BONE MINERAL DENSITY: MCT Mobile Cardiac Telemetry Event Monitor [address] [place] [address] EVENT MONITOR Patient Name: DALE BETANCUR J : 1965 Study Date: 02/08/2024 9:30:00 AM Gender: F Tech: Ref Provider: SEDA VARGAS Height(Cm): BSA: Weight(Kg): Order Provider: SEDA VARGAS - PROCEDURES: Event Report: Event Monitor Report. INDICATIONS: Palpitations R00.2. FINDINGS: CONCLUSIONS: 1. Patient had event monitor for [...] Signed By: Jasvir Choi 2024-03-05 17:42:42 CDT RESULTS: Recent Results (from the past 1008 hour(s)) Influenza A/B, RSV, and COVID-19 PCR Nasopharyngeal Collection Time: 02/20/24 11:02 AM Specimen: Nasopharyngeal Result Value Ref Range COVID-19 RNA Negative Negative Influenza A RNA Negative Negative Influenza B RNA Negative Negative RSV RNA Negative Negative ASSESSMENT/PLAN: This is a 58 y.o. postmenopausal, female with bone mineral densities that have been in theosteopenic range, but clinically osteoporotic based on a prior L4 vertebral compression fracture that was age indeterminate and on radiographs performed in May, but likely sustained between 2010 and 2013, as well as a trimalleolar fracture of the right lower extremity in April of 2015 after aminor trauma. The patient had received 1 dose of IV Reclast in September of 2014, but given this interval trimalleolar fracture and the concern from the patient's treating orthopedician of poor intraop bone quality, the patient was transitioned to Forteo therapy. Forteo was initiated in July. She completed therapy in August of 2017 and tolerated her therapy well and has had robust improvements in her bone densities on serial measurements. At this point, given the patient's young age and the severity of her osteoporosis switched to Prolia. Multiple delays due to insurance, approved after peer to peer in February 2018, in the interval patient was briefly on fosamax 4 -5 months. Recieved 6 doses of Prolia last dose in 05/2020 transitioned to reclast 02/02/21 . PLAN: - 03/19/24 DXA scan shows L1-L4 T-score of -0.7, Left Femoral Neck T-score of - 1.0, and Left Total Hip T-score of 0.5. This is a change of -3.9% in the lumbar spine from previous and -0.4% in the lefttotal hip from previous. - Will plan to redose Reclast, given patient's slight decrease in BMD from previous DXA scans Rpt labs Vitamin D and BMP today. -Risks and Benefits of IV bisphosphonate therapy were discussed at length of the patient including the risk of acute phase reaction, MSK complaints and more serious but fortunately rare adverse side effects such as atypical femoral fracture and Osteonecrosis of the Jaw. Patient advised to take Tylenol prior to the infusion and to remain well hydrated.Patient also advised to delay any invasive dental work, such as i - Counseled smoking cessation - Reviewed the goal is 1200 mg of calcium per day, preferably through dietary sources - Continue 50,000 international units weekly Ergo. Vitamin D 25-OH level was checked in February 2022;was normal at 49. Pending repeat level. - Engage in weight bearing activity as tolerated. - Hand outs provided to patient. - Will f/u in 1yr with Rpt BMD. (2) Screened for [place]'s: given her young age, bone densities, and her other constellation of symptoms including weight gain, fatigue, centri- pedal obesity, dexamethasone suppression test to rule out the possibility of subclinical [place]'s. Dex suppression test negative. August 2018 AM cortisol low at 0.6 (3) HTN: recommended weight loss, DASH diet, and smoking cessation. (4) Counseled Smoking Cessation: discussed with patient options to assist, including nicotine replacement products like patches and lozenges, as well as medications like Chantix. Judy Jensen MD Geriatrics Fellow Division of General Medicine and Geriatrics Cosigned by Urbano Delacruz MD at 03/29/2024 3:14 PM CDT Associated attestation - Urbano Delacruz MD - 03/29/2024 3:14 PM CDT I have seen and examined the patient. I agree with the findings and plan of care as documented in the resident/fellow's note. My total encounter time on 03/19/2024 was 45 minutes which was spent in the activities documented in the note. This includes time spent prior to the visit and after the visitin direct care of the patient. This time does not include time spent in any separately reportable services. documented in this encounter Plan of Treatment Scheduled Orders Name Type Priority Associated Diagnoses Orde r Schedule Vitamin D 25 hydroxy Lab Routine Age-related osteoporosis without current pathological fracture Expected: 03/22/2024, Expires: 03/19/2025 Basic metabolic panel Lab Routine Age-related osteoporosis without current pathological fracture Expected: 03/22/2024, Expires: 03/19/2025 documented as of this encounter Visit Diagnoses Diagnosis Age-related osteoporosis without current pathological fracture- Primary documented in this encounter Care Teams Prison Classification Counselor Relationship Specialty Start Date End Date Margarito العراقي MD [address] [place] [address] PCP - General Family Medicine 09/04/20 Raymond Vela MD [address] [place] [address] Referring Physician Obstetrics and Gynecology 08/17/21 documented as of this encounter
--- OUTSIDE RECORDS SUMMARY | 2024-11-19 04:48 | XMS_ITS | Encounter Summary ---
Author Organization [facility] Address [address] [place] [address] Phone Care Team Providers Care Pattern Grader Supervisor Name Role Phone Margarito العراقي MD Primary Care Provider [phone] Raymond Vela MD Unavailable Reason for Visit * Episode Based Medications (Routine) - Authorized Specialty Diagnoses / Procedures Referred By Contac t Referred To Contact Diagnoses Age-related osteoporosis without current pathological fracture Urbano Delacruz MD [address] [address] Phone: tel: fax: [facility] [address] [place] [address] [place] [address] Phone: tel: fax: Referral ID Status Reason Start Date Expiration Date V isits Requested Visits Authorized [id number] Authorized 03/22/2024 03/21/2025 1 2 Encounter Details Date Type Department Care Team (Late st Contact Info) Description 07/31/2024 2:00 PM CDT Infusion [facility] Infusion Therapy [address] [place] [address] [place] [address] Age-related osteoporosis without current pathological [...] on file 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 VSS, no s/s of adverse reactions. Follow up apt scheduled. documented in this encounter Plan of Treatment Not on file documented as of this encounter Visit Diagnoses Diagnosis Age-related osteoporosis without current pathological fracture- Primary documented in this encounter Administered Medications Inactive Administered Medications - up to 3 most recent administrations Medication Order MAR Action Action Date Dose Rate Site zoledronic thzv-qpuxkonE-mbzul (RECLAST) 5 mg/100 mL premix 5 mg 5 mg, intravenous, at 150 mL/hr, Administer over 40 Minutes, Once, On Tue07/31/24 at 1500, For 1 doseIndications:Age-related osteoporosis without current pathological fracture New Bag 07/31/2024 2:30 PM CDT 5 mg 150 mL/hr documented in this encounter Orders Medications Ordered That Kamari ht Not Have Been Administered Count Last Ordered Date First Ordered Date zoledronic fuxc-hoqovahS-opg er (RECLAST) 5 mg/100 mL premix 5 mg 1 07/31/2024 documented in this encounter Care Teams Pattern Grader Supervisor Relationship Specialty Start Date End Date Margarito العراقي MD [address] [place] [address] PCP - General Family Medicine 09/04/20 Raymond Vela MD [address] [place] [address] Referring Physician Obstetrics and Gynecology 08/17/21 documented as of this encounter
--- OUTSIDE RECORDS SUMMARY | 2024-11-19 04:48 | XMS_ITS | Clinical Summary ---
Author Organization [facility] [address] Address [address] [place] [address] Phone Care Team Providers Care Developer Automatic Name Role Phone Margarito العراقي MD Primary Care Provider [phone] Raymond Vela MD Unavailable [phone] Allergies Active Allergy Reactions Criticality Noted Date [...] (01/20/2023): Added automatically from request for surgery [id number] Carpal tunnel syndrome of left wrist 10/11/2021 [...] to rehab at a facility in [facility]. Patient does not want to leave her family and does not want to go. Advised patient to contact her insurance company regarding an outpatient treatment in this immediate area that she can attend his stay at home. Smoking trying to quit 01/16/2019 Assessment & Plan (01/12/2020 2:49 PM ENGINEERED WOOD DESIGNER): Patient continues with trying to quit smoking [...] suicide. Assessment & Plan (01/16/2019 5:58 PM ENGINEERED WOOD DESIGNER): Patient requested Chantix I gave her coupon and Rx we sent in again. Ptosis of eyelid 02/14/2018 NEO (obstructive sleep apnea) 09/08/2017 Assessment & Plan (01/12/2020 2:49 PM ENGINEERED WOOD DESIGNER): Patient advised me she is using a [...] 1:48 PM CDT): Patient managed by Endocrin[facility] she advised me she will be starting [...] as palpitations. At this time request a quality assurance monitor body for 2 weeks. Assessment & Plan (01/12/2020 2:48 PM ENGINEERED WOOD DESIGNER): Patient advised me she is no longer taking Bystolic she is seeing Dr. Margarito العارقي in [place] he is a family practitioner. Placed on [...] & Plan (02/02/2019 4:52 PM CDT): Patient's squirt machine operator changed her medicine is to Bystolic 5 [...] well. Assessment & Plan (01/16/2019 5:55 PM ENGINEERED WOOD DESIGNER): Hypertension well controlled with medication Bystolic 40 mg daily. However she has developed greater fatigue dry mouth. This time reduce Bystolic to 20 mg daily. Start spironolactone as add on the next 7 days. Patient to monitor blood pressure I will see her back in the next 3 months. Assessment & Plan (01/06/2019 6:03 PM ENGINEERED WOOD DESIGNER): Hypertension is unchanged. Continue current treatment regimen. Dietary sodium restriction. Weight loss. Continue current medications. Blood pressure will be reassessed at the next regular appointment. Assessment & Plan (09/26/2018 12:48 PM ENGINEERED WOOD DESIGNER): Patient's certain regarding elevated blood pressure which [...] later it does not help. Patient has [place] available from her pain clinic dosage of [...] 01/12/2020 Assessment & Plan (01/16/2019 5:57 PM ENGINEERED WOOD DESIGNER): Patient's history of fatigue depression is much [...] CDT): Immunization brought up-to-date. Breast cancer screening 05/13/201805/22 Assessment & Plan (05/13/2018 1:52 PM CDT): Mammogram order placed to bring her mammogram up-to-date. Shaking 05/13/2018 01/12/2020 Assessment & Plan (05/13/2018 1:51 PM CDT): Patient describes feeling shaky 2 weeks ago. Questionable some palpitations concurrently. She did contact her squirt machine operator referred on to primary care. With this [...] (01/19/2018): Added automatically from request for surgery [id number] Right ankle pain 01/19/2018 06/14/2019 Overview (01/19/2018): Added automatically from request for surgery [id number] Hospital discharge follow-up 08/14/2017 05/13/2018 Assessment & [...] have remained had 100-106. Patient referred to [facility] further evaluation for repeat chest [...] 01/24/2013 04/16/2020 Episodic tension-type headache 04/24/2012 09/03/2019 Encounters Date Type Department Care Team Description 11/07/2024 2:30 PM ENGINEERED WOOD DESIGNER Office Visit [facility] at [facility] [address] [place] [address] iLv Nelson MD Dizziness (Primary Dx); NEO (obstructive sleep apnea); Essential hypertension; Pure hypercholesterolemia; Smoking 11/01/2024 3:00 PM ENGINEERED WOOD DESIGNER Office Visit [facility] [address] [place] [address] Marcia Haider MD Obstructive sleep apnea syndrome (Primary Dx); Hypersomnia; Chronic insomnia; Meningioma (HCC) from Last 3 Months Immunizations Name Administration Dates Next Due Hep B Vaccine 02/23/2005,09/24/2004,08/25/2004 Influenza, Quadrivalent, Spl it, Intramuscular 09/14/2018,09/16/2016 Influenza, Quadrivalent, Spl it, Preservative Free, Intramuscular 08/31/2019 Influenza, Trivalent, IM (MDV) 09/17/2015 Influenza, Unspecified 09/14/2018,08/24/2017 Tdap 05/11/2018 Surgical History Surgery Date Site/Laterality Comments APPENDECTOMY 11/21/2006 - 11/20/2007 Appendectomy OTHER SURGICAL HISTORY 11/21/1988 - 11/20/1989 : OTHER SURGICAL HISTORY 11/21/1991 - 11/20/1992 : OTHER SURGICAL HISTORY 11/21/2003 - 11/20/2004 Cryoablation OTHER SURGICAL HISTORY 11/21/1982 - 11/20/1983 : TOTAL ABDOMINAL HYSTERECTOMY W/ BILATERAL SALPINGOOPHORECTOMY 11/21/2008 - 11/20/2009 hysterectomy: ADE/BSO OTHER SURGICAL HISTORY 11/21/2006 - 11/20/2007 lap. for endometriosis SECTION 11/21/1982 - 11/20/1983 section VAGINAL HYSTERECTOMY 11/21/2008 - 11/20/2009 Hysterectomy, vaginal APPENDECTOMY 11/21/2005 - 11/20/2006 Appendectomy LAPAROSCOPIC CHOLECYSTECTOMY 11/21/2013 - 11/20/2014 laparoscopic cholecystectomy OTHER SURGICAL HISTORY Chlecystectomy APPENDECTOMY Appendectomy SECTION c section OTHER SURGICAL HISTORY laparascopic abdominal surgery OTHER SURGICAL HISTORY 5 mm punch biopsy skin lesion to left axilla / office procedure OTHER SURGICAL HISTORY rt ankle orif HARDWARE REMOVAL COLONOSCOPY 12/22/2012 - 01/18/2013 Medical History Medical History Date Comments Hypertension Hypertension Disorder of thyroid Thyroid dise ase Hx Other Medical 1988 ; Outc ome: 9 lb(s) 10 oz Female Hx Other Medical 1991 ; Outc ome: 7 lb(s) 8 oz Male Hx Other Medical 1982 ; Outc ome: 8 lb(s) 2 oz Female Hx Other Medical Recovering alco holic sober since 1993 Hx Other Medical IBS Fibrositis Fibromyalgia Hx Other Medical endometreosis Hx Other Medical Headache, migra ine Hx Other Medical L4 fracture and left shoulder pain s/p fall in bat Hx Other Medical Diverticulosis Hypertension Hypertension Gastroesophageal reflux disease GERD Hx Other Medical migraines; Comm ents: GDS 11/27/2015 - Hx Other Medical chronic joint p ain; Comments: GDS 11/27/2015 - Hx Other Medical neuropathy; Com ments: GDS 11/27/2015 - PONV (postoperative nausea and vomiting) Sleep apnea CPAP Hyperlipidemia Family History Medical History Relation Name Comments Asthma Daughter Asthma; Congenital heart disease Father Con genital heart disease; Skin cancer Mother Throat cancer Mother Coronary artery disease Mother's Sister C oronary artery disease; Diabetes type II Other 1 Family hist ory of Diabetes -Type II; Cancer Other 2 Family history of Cancer; Diabetes Other 3 Family history of Diabetes mellitus; Coronary artery disease Other 4 Fami ly history of Coronary artery disease; Stroke Other 5 Stroke; Hip fracture Neg Hx Osteoporosis Neg Hx Relation Name Status Comments Daughter Father Mother Mother's Sister Other 1 Other 2 Other 3 Other 4 Other 5 Social History Tobacco Use Types Packs/Day Years [...] on file 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:46 AM ENGINEERED WOOD DESIGNER Gender Identity Not on file Sexual Orientation Not on file Obstetrics History Last Filed Vital Signs Vital Sign Reading Time Taken Comments Blood Pressure 148/89 11/07/2024 2:29 PM ENGINEERED WOOD DESIGNER Pulse 85 11/07/2024 2:29 PM ENGINEERED WOOD DESIGNER Temperature 36.6 ??C (97.9 ??F) 02/20/2024 10:55 AM C DT Respiratory Rate 16 07/31/2024 2:18 PM CDT Oxygen Saturation 96% 11/01/2024 3:33 PM ENGINEERED WOOD DESIGNER Inhaled Oxygen Concentration - - Weight 73 kg (161 lb) 11/07/2024 2:29 PM ENGINEERED WOOD DESIGNER Height 149.9 cm (4' 11 ) 11/07/2024 2:29 PM ENGINEERED WOOD DESIGNER Body Mass Index 32.52 11/07/2024 2:29 PM ENGINEERED WOOD DESIGNER Plan of Treatment Health Maintenance Due Date Last Done Comments Pneumococcal vaccine <65 (1 of 2 - PCV) 1970 Zoster Vaccine (1 of 2) 2014 Breast Cancer Screening-Mammogram 11/25/2016 016 Regular Well Visit/Exam 18-64 10/02/2019 10/02/2018, 05/11/2018 Influenza Vaccine (#1) 2024 9, 09/14/2018, 09/14/2018, Additional history exists DTaP/Tdap/Td Vaccine (2 - Td or Tdap) 05/11/2028 05/11/2018 Colon Cancer Screening-Colonoscopy 02/23/2033 02/23/2023, 01/05/2013, 01/05/2013 Hepatitis C Screening Completed 03/05/2015 Colon Cancer Screening-CT Colonography Discontinued 02/23/2023, 01/05/2013, 01/05/2013 Colon Cancer Screening-DNA Stool Discontinued 02/23/2023, 01/05/2013, 01/05/2013 Colon Cancer Screening-FIT Discontinued 02/23, 01/05/2013, 01/05/2013 Colon Cancer Screening-Sigmoidoscopy Discontinued 02/23/2023, 01/05/2013, 01/05/2013 Depression Screening Discontinued Medical Devices Implanted Type Area Tricot Knitting Machine Operator Device Identifier Shelf Expiration Date Model / Serial / Lot Filler Bone Void Norian Calcium Phosphate Fiber 3 Ml Drillable Inject Reinforced Bioresorbable Biocompatible Isothermic Sterile - [id number] Implanted:Qty: 1 on 01/31/2018 by Arnol Moreau MD at [facility] Right: Ankle Synthes I 05/18/2019 [id number] S / / [id number] Procedures Procedure Name Priority Date/Time Associated Diagnosis Comments COLONOSCOPY 02/23/2023 9:55 AM CDT DIGITAL MAMMOGRAPHY Routine 11/25/2015 1 1:33 AM ENGINEERED WOOD DESIGNER SERUM HEPATITIS C AB Routine 03/05/2015 12:55 [...] Female Attending MD: Polina Rosa M.D. Room: [facility] ENDOSCOPY ROOM 1 Note Status: Finalized Patient [...] under direct vision. The Pediatric Colonoscope [id number] was introducedthrough the anus and advanced to [...] 9:55 AM Procedure Code(s): --- Professional --- 98889, Colonoscopy, flexible; diagnostic, including collection of specimen(s) by brushing or washing, when performed (separateprocedure) Diagnosis Code(s): --- Professional --- Z12.11, Encounter for screening for malignant neoplasm of colon K64.8, Other hemorrhoids K57.30, Diverticulosis of large intestine without perforation orabscess without bleeding CPT copyright 2020 [employer]. All rights reserved. The codes documented in this report are preliminary and upon laminating machine offbearer reviewmay be revised to meet current compliance requirements. Recognized by the [employer] for promoting quality in endoscopy us Polina Rosa MD ENDOSCOPY PROCEDURES Final Result * DIGITAL MAMMOGRAPHY (11/25/2015 11:33 AM ENGINEERED WOOD DESIGNER) Anatomical Region Laterality Modality Breast Mammography 11/25/2015 11:3 3 AM ENGINEERED WOOD DESIGNER Narrative 11/28/2015 11:13 AM ENGINEERED WOOD DESIGNER Mr/Td Screening Mamm Bi ??Acc#: ??[id number] DATE OF EXAM: ??Nov ??2015 ADDENDUM PLEASE SEE BELOW Performed by: CLINICAL HISTORY: Screen. RESULT: Two views of each breast were obtained. ??By report, a prior study was performed at [facility] and a release form has been submitted [...] made to prior studies from ??07/19/14 from [facility]. No interval suspicious mass or calcification has developed to suggest mammographic evidence of malignancy. Annual followup recommended. BI-RADS CATEGORY 1 - NEGATIVE Interpreting Physician: ??LEN BALDWIN M.D. ??Read on: ??Aidan ??2015 11:34A Transcribed by: ??mrr ??On: Nov ??2015 ??2:39P Approved Electronically by: ??LEN BALDWIN M.D. ??on: ??Nov ??2015 11:13A Attending: ??RHIANNA HINOJOSA Requesting: ??DR RHIANNA HINOJOSA Requesting Fax: ??[phone] Attending Fax: ??-- Attending ID: ??[id number] Requesting ID: ??[id number] Report To 1 ID: ??[id number] Report To 1 Name: ??RHIANNA HINOJOSA Report To 1 FAX: ??-- NextGen Order #: Procedure Note Provider, MD Kip - 03/22/2017 Mr/Td Screening Mamm Bi Acc#: [id number] DATE OF EXAM: Nov 25 2015 ADDENDUM PLEASE SEEBELOW Performed by: CLINICAL HISTORY: Screen. RESULT: Two views of each breast were obtained. By report, a prior study wasperformed at [facility] and a release form has been submittedto acquire the prior exam for review. There are scattered fibroglandulardensities bilaterally. No suspicious mass or calcification is seen tosuggest mammographic evidence of malignancy. There is a surgical markingring in the central upper anterior half of the right breast. Digitaltechnology was employed plus computer-aided detection software (R2) wasutilized in interpretation of these images. This facility utilizes [employer] system to notify patients of yearly mammograms. IMPRESSION: 1. NO DEFINITIVE MAMMOGRAPHIC EVIDENCE OF MALIGNANCY. 2. IF PRIOR STUDIES BECOME AVAILABLE, AN ADDENDUM WILL BE ISSUED OTHERWISEANNUAL FOLLOW-UP IS RECOMMENDED. BI-RADS CATEGORY 1 - NEGATIVE ADDENDUM: DR. BALDWIN/TD11/27/15 Comparison is now made to prior studiesfrom 07/19/14 from [facility]. No interval suspicious mass orcalcification has developed to suggest mammographic evidence ofmalignancy. Annual followup recommended. BI-RADS CATEGORY 1 - NEGATIVE Interpreting Physician: LEN BALDWIN M.D. Read on: Nov 25 2015 11:34A Transcribed by: alex On: Nov 25 2015 2:39P Approved Electronically by: LEN BALDWIN M.D. on: Nov 28 2015 11:13A Attending: RHIANNA HINOJOSA Requesting: DR RHIANNA HINOJOSA Requesting Attending Fax: -- Attending ID: [id number] Requesting ID: [id number] Report To 1 ID: [id number] Report To 1 Name: RHIANNA HINOJOSA Report To 1 FAX: -- NextGen Order #: us Historical Provider MD [facility] MAMMO PROCEDURES Celia l Result * Serum Hepatitis C ab (03/05/2015 12:55 PM CDT) HCV ab See Report HISTORICA L RESULTS Serum 03/05/2015 12:5 5 PM CDT Polina Rosa MD LAB BLOOD ORDERABLES Final Result HISTORICAL RESULTS from Last 3 Months or Most Recently Relevant to Health Maintenance Insurance [facility] Advance Directives For more information, please contact: [phone] * Full Code (Latest Code Status on File) Date Activated Date Inactivated Comments 02/23/2023 9:56 AM 02/23/2023 5:30 PM * Full Code Date Activated Date Inactivated Comments 02/23/2023 9:56 AM 02/23/2023 9:56 AM Care Teams Developer Automatic Relationship Specialty Start Date End Date Margarito العراقي MD [address] [address] PCP - General Family Medicine 09/04/20 Raymond Vela MD [address] [place] [address] Referring Physician Obstetrics and Gynecology 08/17/21
--- OUTSIDE RECORDS SUMMARY | 2024-11-19 04:48 | XMS_ITS | Encounter Summary ---
Author Organization [facility] Address [address] [place] [address] Phone Care Team Providers Care Master Police Detective Name Role Phone Margarito العراقي MD Primary Care Provider [phone] Raymond Vela MD Unavailable [phone] Reason for Visit * Reason Onset Date Comments Scheduling Appointments 07/03/2024 Encounter Details Date Type Department Care Team (Late st Contact Info) Description 07/03/2024 Telephone [facility] Infusion Therapy 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 I appreciate your help! * Telephone Encounter - Marlee Miller RN - 07/03/2024 11:06 AM CDT Attempted to contact pt three times to schedule reclast infusion. LVM with each attempt. Unable to make contact with patient and no return call was made to infusion center. Dr. Delacruz aware documented in this encounter Plan of Treatment Not on file documented as of this encounter Visit Diagnoses Not on filedocumented in this encounter Care Teams Master Police Detective Relationship Specialty Start Date End Date Margarito العراقي MD [address] [place] [address] PCP - General Family Medicine 09/04/20 Raymond Vela MD [address] [place] [address] Referring Physician Obstetrics and Gynecology 08/17/21 documented as of this encounter
--- OUTSIDE RECORDS SUMMARY | 2024-11-19 04:48 | XMS_ITS | Encounter Summary ---
Author Organization [facility] Address [address] [place] [address] Care Team Providers Care Database Operator Name Role Phone Margarito العراقي MD Primary Care Provider [phone] Raymond Vela MD Unavailable [phone] Reason for Visit * Reason Comments Follow-up 6 month Encounter Details Date Type Department Care Team ([facility] Contact Info) Description 11/07/2024 2:30 PM GORE INSERTER Office Visit [facility] at [address] [address] Liv Nelson MD [address] [place] [address] [address] [place] [address] Dizziness (Primary Dx); NEO (obstructive sleep [...] on file 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:46 AM GORE INSERTER Gender Identity Not on file Sexual Orientation Not on file documented as of this encounter Last Filed Vital Signs Vital Sign Reading Time Taken Comments Blood Pressure 148/89 11/07/2024 2:29 PM GORE INSERTER Pulse 85 11/07/2024 2:29 PM GORE INSERTER Temperature - - Respiratory Rate - - Oxygen Saturation - - Inhaled Oxygen Concentration - - Weight 73 kg (161 lb) 11/07/2024 2:29 PM GORE INSERTER Height 149.9 cm (4' 11 ) 11/07/2024 2:29 PM GORE INSERTER Body Mass Index 32.52 11/07/2024 2:29 PM GORE INSERTER documented in this encounter Progress Notes * Liv Nelson MD - 11/07/2024 2:30 PM CST Cardiology note Reason for Office Visit: Chief Complaint Patient presents with Follow-up 6 month HTN HDL History of Present Illness: Shivani Betancur is a 59 y.o. female is here for follow up. She holds her abdomen as I walked in a writhing pain and says that is her hernia that is giving a 'punch like' pain and quickly recovered. She just had a CT scan and is waiting to see her doctor. No falls. Patient is staying active and performs ADLs with no limitations. She takes about [address]97 steps a day. She is still getting dizzy from time to time. No falls. No cardiac issues or symptoms. Denies any chest discomfort, dysnea, palpitations, dizziness, fatigue or claudication. No hospitalizations. He denies any PND or Orthopnea or swelling. Patient is compliant with his medications. Denies any bleeding issues. She smokes about 1 PPD. 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 She uses CPAP for sleep. Her blood pressure is elevated in the office and she says she does not record at home. PAST MEDICAL HISTORY: HTN HLD NEO on [...] Current Outpatient Medications Medication Sig Dispense Refill nrfvlvktxhudv-gdgmxxx-plnotukv (EXCEDRIN MIGRAINE) 250-250-65 mg per tablet 1-2 [...] daily with breakfast. NARCAN 4 mg/actuation spray,non-aerosol fshdfuzc-ugcjatfzk-uifobxzromvul (MAXITROL) 3.5mg/mL-10,000 unit/mL-0.1 % ophthalmic suspension nitrofurantoin [...] loss of consciousness. Vital Signs: Vitals BP 148/89 (BP Location: Right arm, Patient Position: Sitting) Pulse 85 Ht 149.9 cm (4' 11 ) Wt 73 kg (161 lb) BMI 32.52 kg/m?? Vitals: 12/18/24 1429 BP: 148/89 Pulse: 85 Wt Readings from Last 3 Encounters: 11/07/24 73 kg (161 lb) 11/01/24 75.5 kg (166 lb 6.4 oz) 05/07/24 73.5 kg (162 lb) Physical Exam: General: Well developed, well nourished, [...] hospital encounter of 08/15/18 ECG 12 lead Collection Time: 08/15/18 10:44 AM Result Value Ref Range Patient age 52 years Interpretation Text SINUS RHYTHMMINIMAL VOLTAGE CRITERIA FOR LVH, CONSIDER NORMAL VARIANTBORDERLINE ECGPREVIOUS TRACIN08/01/2017 16.46 Ventricular Rate EKG/Min 77 /min P Wave Duration 109 ms QRS-Interval (MSEC) 84 ms TX-Interval (MSEC) 155 ms QT Interval 361 ms QTc 390 ms QTC Interval ms P Gary 18 deg QRS Gary -10 deg T Gary -8 deg ] Tests: 08/03/2017 Last spec [...] follow in this patient's care. Liv Nelson MD2:54 PM 05/02/2023 Cc:Margarito العراقي MD INSERTER documented in this encounter Plan of Treatment Not on file documented as of this encounter Visit Diagnoses Diagnosis Dizziness- Primary Dizziness and giddiness NEO (obstructive sleep apnea) Obstructive sleep apnea (adult) (pediatric) Essential hypertension Unspecified essential hypertension Pure hypercholesterolemia Smoking Tobacco use disorder documented in this encounter Care Teams Database Operator Relationship Specialty Start Date End Date Margarito العراقي MD [address] [address] PCP - General Family Medicine 09/04/20 Raymond Vela MD [address] [place] [address] Referring Physician Obstetrics and Gynecology 08/17/21 documented as of this encounter
--- OUTSIDE RECORDS SUMMARY | 2024-11-19 04:48 | XMS_ITS | Encounter Summary ---
Author Organization [facility] Healthcare Address [address] [place] [address] Care Team Providers Care Patent Chemist Name Role Phone Margarito العراقي MD Primary Care Provider [phone] Raymond Vela MD Unavailable [phone] Reason for Visit * Episode Based Medications (Routine) - Authorized Specialty Diagnoses / Procedures Referred By Contac t Referred To Contact Diagnoses Age-related osteoporosis without current pathological fracture Urbano Delacruz MD [address] [address] Phone: tel: fax: [facility] [address] [facility] 5th [place] [address] [place] [address] Phone: tel: fax: Referral ID Status Reason Start Date Expiration Date V isits Requested Visits Authorized [id number] Authorized 03/22/2024 03/21/2025 1 2 Encounter Details Date Type Department Care Team (Late st Contact Info) Description 04/26/2024 2:15 PM CDT Office Visit [facility] [address] [facility] [address] [place] [phone] Marcia Haider MD [address] [place] [address] [address] [place] [address] Obstructive sleep apnea syndrome (Primary Dx); Hypersomnia; Obesity (BMI 30-39.9); Chronic insomnia Social History Tobacco Use Types Packs/Day Years [...] on file 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 Moderate NEO: Ms. Betancur presents for follow-up. She is a very pleasant 58-year-old with obstructive sleep apnea syndrome on positive pressure therapy Pt endorses compliance to the pressure therapy. She has been going to bed midnight and awaken by 6 am. Some nights she reports sleeping on 4-5 hours, others sleeps 12 or 13 hours. She is tolerating Full mask. 2. Hypersomnia. Endorses stability symptoms Richton Sleepiness scale score is 5 3. Obesity. 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 Also on norco, flexiril and benadryl. Having difficulty staying asleep. CBT-I was suggested but she rather finds her own. 5. Muscle jerking. : On Ropinirole by PCP, stable. No longer on clonazepam. Physical Exam BP 108/71 Pulse 87 Ht 149.9 cm (4' 11 ) Wt 73.9 kg (163 lb) SpO2 92% BMI 32.92 kg/m?? Constitutional: oriented to person, place, and [...] mood and affect. Judgment normal. AP 1. Obstructive sleep apnea with baseline AHI 15 in 2013. She reports she has been compliant and data shows it has been effective. The physiology of sleep disordered breathing and its increased association with hypertension, diabetes, heart arrhythmia, strokes, heart attacks, heart failure, hypersomnia, obesity and mood disorders was discussed. Compliance download from 03/26/2024-04/24/2024 was reviewed. 83% usage averaging 5 hours and 47 minute of therapy residual AHI 3.4. 2. Delayed sleep phase cycle disorder: Patient's sleep scheduled is suggestive of circadian rhythm sleep disorder. Patient was discussed the above. Continue Ambien 10 mg HS, melatonin 5 mg. Despite norco, flexeril, benadryl, she has difficulty with sleep pattern. discussed she should not take morethan 10 mg of ambien nightly. 3. Obesity: The effects of obesity obstructive sleep apnea syndrome and other morbidities was discussed. Recommended diet and exercise in losing weight. Patient verbalizes an understanding. 4. Meningioma: Stable. Last 2021. Recommend repeating scan next year. Denies any symptoms of headaches documented in this encounter Plan of Treatment Not on file documented as of this encounter Visit Diagnoses Diagnosis Obstructive sleep apnea syndrome- Primary Obstructive sleep apnea (adult) (pediatric) Hypersomnia Hypersomnia, unspecified Obesity (BMI 30-39.9) Chronic insomnia Insomnia, unspecified documented in this encounter Care Teams Patent Chemist Relationship Specialty Start Date End Date Margarito العراقي MD [address] [place] [id number] PCP - General Family Medicine 09/04/20 Raymond Vela MD [address] [place] [address] Referring Physician Obstetrics and Gynecology 08/17/21 documented as of this encounter
--- OUTSIDE RECORDS SUMMARY | 2024-11-19 04:49 | XMS_ITS | Encounter Summary ---
Author Organization [facility] Address [address] [facility] [address] [place] [address] Care Team Providers Care Heel Attacher Wood Name Role Phone Margarito العراقي MD Primary Care Provider [phone] Raymond Vela MD Unavailable [phone] Encounter Details Date Type Department Care Team (Late st Contact Info) Description 08/13/2022 Telephone [facility] [address] [facility] [address] [place] [address] Camille Lebron MA Social History Tobacco Use Types Packs/Day Years [...] of Binge Drinking Not on file 09/21 Comments No Sex and Gender Information Value Date Recorded Sex Assigned at Not on file 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 documented in this encounter Plan of Treatment Not on file documented as of this encounter Visit Diagnoses Diagnosis Ptosis of left eyelid- Primary Unspecified ptosis of eyelid documented in this encounter Orders Lab Orders Without Results Count Last Ordered D ate First Ordered Date ACETYLCHOLINE RECEPTOR, MODULATING AB 1 documented in this encounter Care Teams Heel Attacher Wood Relationship Specialty Start Date End Date Margarito العراقي MD [address] [place] [id number] PCP - General Family Medicine 09/04/20 Raymond Vela MD [address] [place] [address] Referring Physician Obstetrics and Gynecology 08/17/21 documented as of this encounter
--- OUTSIDE RECORDS SUMMARY | 2024-11-19 04:49 | XMS_ITS | Encounter Summary ---
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 73 m2 [facility] ([place]) Comment: Interpretive Data Reference Interval Normal ?>/= 90 mL/min/1.73m2 Mildly decreased* ? 60 - 89 mL/min/1.73m2 Mildly to moderately decreased ?45 - 59 mL/min/1.73m2 Moderately to severely decreased ??30 - 44 mL/min/1.73m2 Severely decreased ?15 - 29 mL/min/1.73m2 Kidney Failure ?< 15 ??mL/min/1.73m2 *Relative to young adult level Estimated glomerular filtration rate is determined by the 2020 CKD-EPI equation recommended by the National Kidney Foundation (A Unifying Approach to GFR Estimation: Recommendations of the NKF-ASK Task Force on Reassessing the Inclusion of Race in Diagnosing Kidney Disease, JASN 202). The CKD-EPI equation should not be used for patients with unstable renal function and has not been validated in children and those over 70. Current interpretive data was last reviewed 2021. Blood 01/17/2024 2:10 PM MAINT MECHANIC 01/17/2024 2:49 PM MAINT MECHANIC us Liv Nelson MD LAB BLOOD ORDERABLES Final Result [facility] ([place]) [address] [facility] Department [place] [address] * Basic metabolic panel (01/17/2024 2:10 PM MAINT MECHANIC) Sodium 139 135 - 145 mmol/L [facility] ([place]) Potassium, pl 3.8 3.3 - 4.9 mmol/L [facility] ([place]) Chloride 101 97 - 110 mmol/L [facility] ([place]) CO2 27 22 - 32 mmol/L [facility] ([place]) Anion gap 11 2 - 15 mmol/L [facility] ([place]) BUN 16 6 - 25 mg/dL [facility] ([place]) Creatinine 0.73 0.60 - 1.10 mg/dL [facility] ([place]) Glucose 106 70 - 199 mg/dL [facility] ([place]) Comment: Interpretive Data Fasting glucose >/= 126 mg/dl is diagnostic for diabetes. ?? Fasting is defined as no caloric intake for at least 8 hours. Fasting glucose between 100 mg/dl to 125 mg/dl is diagnostic of prediabetes. In a patient with classic symptoms of hyperglycemia or hyperglycemic crisis, a random glucose >/= 200 mg/dl is diagnostic for diabetes. In the absence of unequivocal hyperglycemia, results should be confirmed by repeat testing. The classification and Diagnosis of Diabetes Diabetes Care 202; 46: S19-S40. Current interpretive data was last revised 2022. Calcium 9.5 8.5 - 10.3 mg/dL [facility] ([place]) Blood 01/17/2024 2:10 PM MAINT MECHANIC 01/17/2024 2:49 PM MAINT MECHANIC Liv Nelson MD LAB BLOOD ORDERABLES Final Result [facility] ([place]) [address] [facility] Department [place] [address] * Pro B-type natriuretic peptide (01/17/2024 2:10 PM MAINT MECHANIC) NT-proBNP <36 <=300 pg/mL [facility] ([place]) Comment: Interpretive Comments: A. Dyspnea in Acute Care Setting All Ages: ?< 300 pg/ml, acute heart failure unlikely. < 50 yrs: ?300 - 450 pg/ml, further investigation warranted. ? > 450 pg/ml, acute heart failure likely. 50 - 74 yrs: ? 300 - 900 pg/ml, further investigation warranted. ? > 900 pg/ml, acute heart failure likely . > or = 75 yrs: ? 450 - 1800 pg/ml, further investigation warranted. ? > 1800 pg/ml, acute heart failure likely. B. Non-acute Setting < 75 yrs ? < 125 pg/ml, rules out heart failure. ? > or = 125 pg/ml, further investigation warranted. > or = 75 yrs ?< 450 pg/ml, rules out heart failure. ? > or = 450 pg/ml, further investigation warranted. - Knowledge of each individual patient's NT-proBNP range may be more useful than using similar cut-points for every patient. Please note that marked elevations in NT-proBNP levels may be observed in state other than Left Ventricular Congestive Failure, including: acute coronary syndromes, right heart strain/failure (including pulmonary embolism and cor pulmonale), critical illness, renal failure, as well as advanced age. - References: 1. Ana BOLANOS et.al. Eur Heart J. 2006:27:330-337. 2. Estee RW, Deepak NGUYỄN. J. AM Onel Cardiol: Cardiovasc Imag. 2009;2: 216- 225. Interpretive Data Last Revised Date: 2018. Blood 01/17/2024 2:10 PM MAINT MECHANIC 01/17/2024 2:49 PM MAINT MECHANIC us Liv Nelson MD LAB BLOOD ORDERABLES Final Result [facility] [place]) 1 [facility] Department [place] [address] documented in this encounter Visit Diagnoses Diagnosis Swelling Localized superficial swelling, mass, or lump Palpitations documented in this encounter Care Teams Disability Hearing Officer Relationship Specialty Start Date End Date Margarito العراقي MD [address] [place] [address] PCP - General Family Medicine 09/04/20 Raymond Vela MD [address] [place] [address] Referring Physician Obstetrics and Gynecology 08/17/21 documented as of this encounter
--- OUTSIDE RECORDS SUMMARY | 2024-11-19 04:49 | XMS_ITS | Encounter Summary ---
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 Tried calling back and got VM, left another message. RVISOR ERECTION SHOP RVISOR ERECTION SHOP * Telephone Encounter - Luz Forde MA - 01/04/2024 4:06 PM CST Patient LM stating that she was having some left side swelling. CB and LM to find out how long and any other symptoms. RVISOR ERECTION SHOP documented in this encounter Plan of Treatment Not on file documented as of this encounter Visit Diagnoses Not on filedocumented in this encounter Care Teams Towel Hemmer Relationship Specialty Start Date End Date Margarito العراقي MD [address] [place] [address] PCP - General Family Medicine 09/04/20 Raymond Vela MD [address] [place] [address] Referring Physician Obstetrics and Gynecology 08/17/21 documented as of this encounter
--- OUTSIDE RECORDS SUMMARY | 2024-11-19 04:49 | XMS_ITS | Encounter Summary ---
Author Organization [facility] Address [address] [place] [address] Phone Care Team Providers Care Shipping Clerk Crating Name Role Phone Margarito العراقي MD Primary Care Provider [phone] Raymond Vela MD Unavailable [phone] Encounter Details Date Type Department Care Team (Late st Contact Info) Description 02/12/[address] Medical Office Building [address] [place] [address] Urbano Delacruz MD [facility] [address] [address] Social History Tobacco Use Types [...] on file 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 She didn't know if she was just supposed to go ahead and schedule it every year since it could be given once a year so she called. I told her the plan would probably be discussed at her upcoming Dr. Delacruz appointment and she understood. ----- Message ----- From: Mohinder Escamilla MA Sent: 02/12/2022 11:15 AM CDT To: Leidy Vizcarra RN Yes, thank you!!! She has to see Nubia and get a bone density first before we even know if she needs another Reclast infusion or not. Thanks! Mohinder ----- Message ----- From: Leidy Vizcarra RN Sent: 02/11/2022 1:34 PM CDT To: [facility] Pt called to schedule Reclast for Dr. Delacruz. The last office visit not from Dr. Delacruz that I can see is from 10/2020 but she has one coming up.I also don't see any labs since 05/2021. I will call her back and let her know that I cannot schedule her as of right now and that I let you know. Thanks, Leidy documented in this encounter Plan of Treatment Not on file documented as of this encounter Visit Diagnoses Not on filedocumented in this encounter Care Teams Shipping Clerk Crating Relationship Specialty Start Date End Date Margarito العراقي MD [address] [place] [address] PCP - General Family Medicine 09/04/20 Raymond Vela MD [address] [place] [address] Referring Physician Obstetrics and Gynecology 08/17/21 documented as of this encounter
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
--- OUTSIDE RECORDS SUMMARY | 2024-11-19 04:49 | XMS_ITS | Encounter Summary ---
Author Organization [facility] Address [address] [place] [address] Care Team Providers Care Lamp Assembler Name Role Phone Margarito لاعراقي MD Primary Care Provider [phone] Raymond Vela MD Unavailable [phone] Encounter Details Date Type Department Care Team (Late st Contact Info) Description 07/28/2022 Telephone [facility] [address] [place] [address] Debbi Aguilar MA Social History Tobacco Use Types Packs/Day [...] on file 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:46 AM [facility] DEAN Gender Identity Not on file Sexual Orientation Not on file documented as of this encounter Miscellaneous Notes * Telephone Encounter - Cecilia Agrawal - 07/30/2022 1:38 PM CDT Patient notified. She will go back to the lab to get the other tests. * Telephone Encounter - Debbi Aguilar MA - 07/29/2022 1:52 PM CDT Lvm for pt to call back. * Telephone Encounter - Debbi Aguilar MA - 07/28/2022 3:32 PM CDT Pt calling because she was wandering her test results. documented in this encounter Plan of Treatment Not on file documented as of this encounter Visit Diagnoses Not on filedocumented in this encounter Care Teams Lamp Assembler Relationship Specialty Start Date End Date Margarito العراقي MD [address] [place] [address] PCP - General Family Medicine 09/04/20 Raymond Vela MD [address] [place] [address] Referring Physician Obstetrics and Gynecology 08/17/21 documented as of this encounter
--- OUTSIDE RECORDS SUMMARY | 2024-11-19 04:49 | XMS_ITS | Encounter Summary ---
Author Organization [facility] Healthcare Address [address] [place] [address] Care Team Providers Care Operations Administrative Assistant Name Role Phone Margarito العراقي MD Primary Care Provider [phone] Raymond Vela MD Unavailable [phone] Reason for Visit * Auth/Cert (Routine) Specialty Diagnoses / Procedures Referred By Contac t Referred To Contact Diagnoses Encounter for screening colonoscopy Encounter for screening colonoscopy [Z12.11] Procedures [facility] COLONOSCOPY FLX DX W/COLLJ SPEC WHEN PFRMD COLONOSCOPY Referral ID Status Reason Start Date Expiration Date Visits Re quested Visits Authorized [id number] 1 1 Encounter Details Date Type Department Care Team (Late st Contact Info) Description 02/23/2023 11:30 AM CDT - 02/23/2023 12:00 PM CDT Surgery [facility] [address] [place] [id number] Polina Rosa MD [address] [place] [id number] COLONOSCOPY Surgery Details Date/Time Status Location OR Service Patient Class Case Class Case Type Trauma Case? 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 Gender Identity Not on file Sexual Orientation Not on file documented as of this encounter Last Filed Vital Signs Vital Sign Reading Time Taken Comments Blood Pressure 142/93 02/23/2023 10:09 AM CDT Pulse 73 02/23/2023 10:09 AM CDT Temperature 36.5 ??C (97.7 ??F) 02/23/2023 10:09 AM C DT Respiratory Rate 16 02/23/2023 10:09 AM CDT Oxygen Saturation - - Inhaled Oxygen Concentration - - Weight 73.5 kg (162 lb) 02/23/2023 10:09 AM CDT Height 152.4 cm (5') 02/23/2023 10:09 AM CDT Body Mass Index 31.64 02/23/2023 10:09 AM CDT documented in this encounter Medications at Time of Discharge azelastine 205.5 mcg (0.15 %) spray,non-aeros ol SPRAY 1 SPRAY INTO EACH NOSTRIL TWICE A DAY 08/01/2021 cyclobenzaprine (FLEXERIL) 10 mg tablet Take 1 tablet (10 mg total) by mouth 3 (three) times a day as needed 10/28/[address] (CYMBALTA) 30 mg capsule 08/25/2021 ergocalciferol (VITAMIN D) 50,000 unit capsule ergocalciferol (vitamin D2) 1,250 mcg (50,000 unit) capsule TAKE 1 CAPSULE BY MOUTH ONCE PER WEEK estradioL (ESTRACE) 0.01 % (0.1 mg/gram) vaginal cream 09/30/2021 gabapentin, bulk, 100 % powder 3 10/01/2022 HYDROcodone-stas taminophen (NORCO) 5-325 mg per tablet Take 1 tablet by mouth 3 (three) times a day 08/13/2021 ketamine HCl (ketamine, bulk,) 100 % powder 3 10/01/2022 NARCAN 4 mg/actuation spray,non-aeros ol 10/02/2019 pregabalin (LYRICA) 75 mg capsule Take 1 capsule (75 mg total) by mouth daily 02/05/2020 rOPINIRole (REQUIP) 2 mg tablet Take 1 tablet (2 mg total) by mouth nightly 06/18/2022 atorvastatin (LIPITOR) 20 mg tablet TAKE ONE TABLET BY MOUTH ONCE DAILY 90 tablet 1 05/06/2020 4 hydroCHLOROthia zide (HYDRODIURIL) 25 mg tablet TAKE 1 TABLET BY MOUTH EVERY DAY 30 tablet 11 06/28/2022 3 irbesartan (AVAPRO) 75 mg tablet TAKE 2 TABLETS BY MOUTH DAILY. 60 tablet 5 10/29/2022 3 lubiprostone (AMITIZA) 8 mcg capsule Take 1 capsule (8 mcg total) by mouth 2 (two) times a day with meals 4 metoprolol tartrate (LOPRESSOR) 50 mg immediate release tablet TAKE 1 TABLET BY MOUTH TWICE A DAY 60 tablet 11 10/20/2022 4 zolpidem (AMBIEN) 10 mg tablet Take 1 tablet (10 mg total) by mouth nightly 30 tablet 01/24/2023 3 documented as of this encounter Discharge Disposition Disposition Code Departure Means Destination Comment s Discharge to home or self care documented in this encounter H&P Notes * Polina Rosa MD - 02/23/2023 12:26 PM CDT History and Physical Date of visit: 02/23/2023 Subjective: Patient is a 57 y.o. female presented for evaluation for screening for colon cancer. No family history of colon cancer. Past Medical History: Diagnosis Date Disorder of [...] (postoperative nausea and vomiting) Sleep apnea CPAP Past Surgical History: Procedure Laterality Date APPENDECTOMY 2007 Appendectomy APPENDECTOMY 2006 Appendectomy APPENDECTOMY Appendectomy SECTION 1982 section SECTION c section COLONOSCOPY 12/2012 HARDWARE REMOVAL LAPAROSCOPIC CHOLECYSTECTOMY 2013 laparoscopic cholecystectomy OTHER SURGICAL HISTORY 1988 : OTHER SURGICAL HISTORY 1991 : OTHER SURGICAL HISTORY 2003 Cryoablation OTHER SURGICAL HISTORY 1982 : OTHER SURGICAL HISTORY 2006 lap. for endometriosis OTHER SURGICAL HISTORY Chlecystectomy OTHER SURGICAL HISTORY laparascopic abdominal surgery OTHER SURGICAL HISTORY 5 mm punch biopsy skin lesion to left axilla / office procedure OTHER SURGICAL HISTORY rt ankle orif TOTAL ABDOMINAL HYSTERECTOMY W/ BILATERAL SALPINGOOPHORECTOMY 2008 hysterectomy: ADE/BSO VAGINAL HYSTERECTOMY 2009 Hysterectomy, vaginal Medications Prior to Admission Medication Sig Dispense Refill Last Dose atorvastatin (LIPITOR) 20 mg tablet TAKE ONE TABLET BY MOUTH ONCE DAILY 90 tablet 1 02/22/2023 azelastine 205.5 mcg (0.15 %) spray,non-aerosol SPRAY 1 SPRAY INTO EACH NOSTRIL TWICE A DAY 02/22/2023 cyclobenzaprine (FLEXERIL) 10 mg tablet Take 1 tablet (10 mg total) by mouth 3 (three) times a day as needed 02/22/[address] (CYMBALTA) 30 mg capsule 02/22/2023 ergocalciferol (VITAMIN D) 50,000 unit capsule ergocalciferol (vitamin D2) 1,250 mcg (50,000 unit) capsule TAKE 1 CAPSULE BY MOUTH ONCE PER WEEK 02/22/2023 estradioL (ESTRACE) 0.01 % (0.1 mg/gram) vaginal cream 02/22/2023 gabapentin, bulk, 100 % powder 3 02/22/2023 hydroCHLOROthiazide (HYDRODIURIL) 25 mg tablet TAKE 1 TABLET BY MOUTH EVERY DAY 30 tablet 11 02/23/2023 HYDROcodone-acetaminophen (NORCO) 5-325 mg per tablet Take 1 tablet by mouth 3 (three) times a day 02/22/2023 irbesartan (AVAPRO) 75 mg tablet TAKE 2 TABLETS BY MOUTH DAILY. 60 tablet 5 02/23/2023 ketamine HCl (ketamine, bulk,) 100 % powder 3 02/22/2023 lubiprostone (AMITIZA) 8 mcg capsule Take 1 capsule (8 mcg total) by mouth 2 (two) times a day withmeals 02/22/2023 metoprolol tartrate (LOPRESSOR) 50 mg immediate release tablet TAKE 1 TABLET BY MOUTH TWICE A DAY 60 tablet 11 02/23/2023 pregabalin (LYRICA) 75 mg capsule Take 1 capsule (75 mg total) by mouth daily 02/22/2023 rOPINIRole (REQUIP) 2 mg tablet Take 1 tablet (2 mg total) by mouth nightly 02/22/2023 zolpidem (AMBIEN) 10 mg tablet Take 1 tablet (10 mg total) by mouth nightly 30 tablet 0 02/22/2023 NARCAN 4 mg/actuation spray,non-aerosol Allergies Allergen Reactions Ciprofloxacin Shortness of breath, [...] Nausea only Reaction: Itching, Nausea, Lisinopril Cough Social History Tobacco Use Smoking status: Every Day Packs/day: 0.75 Types: Cigarettes Smokeless tobacco: Never Substance and Sexual Activity Drug use: No Sexual activity: Defer Alcohol Use: Not on file Family History Problem Relation Age of Onset Diabetes type II Other Family history of Diabetes -Type II; Coronary artery disease Mother's Sister Coronary artery disease; Congenital heart disease Father Congenital heart disease; Asthma Daughter Asthma; Cancer Other Family history of Cancer; Diabetes Other Family history of Diabetes mellitus; Coronary artery disease Other Family history of Coronary artery disease; Stroke Other Stroke; Throat cancer Mother Skin cancer Mother Physical Exam: Patient is awake and answers well. Eyes: no jaundice. Lungs: CTA anteriorly. ENT: no mouth ulcers. Abdomen: soft, no distention, no tenderness, bowel sounds positive. Extremities: no edema. Skin: no rash. GI IMPRESSION: 1. Screening for colon cancer GI PLAN/RECOMMENDATIONS: colonoscopy Polina Rosa MD documented in this encounter Procedure Notes * Polina Rosa MD - 02/23/2023 9:55 AM CDTAssociated Order(s): COLONOSCOPY [facility] Patient Name: Shivani Betancur Procedure Date: 02/23/2023 9:55 AM Date of : 1965 Admit Type: Outpatient Age: 57 Gender: Female Attending MD: Polina Rosa M.D. Room: [facility] ENDOSCOPY ROOM 1 Note Status: Finalized Patient Profile: This is a 57 year old female. No family history of colon cancer. She has history of constipation in the past and diverticulitis. Procedure: Colonoscopy Indications: Screening [...] Prior to the procedure, a History and Physical was performed, and patient medications and allergies were reviewed. The patient's tolerance of previous anesthesia was also reviewed. The risks and benefits of the procedure and the sedation options and risks were discussed with the patient. All questions were answered, and informed consent was obtained. Prior Anticoagulants: The patient has taken no anticoagulant or antiplatelet agents. ASA Grade Assessment: III - A patient with severe systemic disease. After reviewing the risks and benefits, the patient was deemed in satisfactory condition to undergo the procedure. The benefits, risks and alternatives of the procedure and sedation were discussed and informed consent was obtained. All questions were answered. Please refer to the signed informed consent document in the medical record. The bowel preparation used was Miralax and bisacodyl tablets via split dose instruction. The scope was passed under direct vision. The Pediatric Colonoscope PCF-H190L [id number] was introduced through the anus and advanced to the the cecum, identified by appendiceal orifice and ileocecal valve. The quality of the bowel preparation was good. Bowel prep was administered using a split dose. Findings: The perianal and digital rectal examinations were normal. The cecum appeared normal. The colon (entire examined portion) appeared normal. No polyps and no mass lesions noted. Mild diffuse changes of melanosis coli noted. Multiple medium-mouthed diverticula were found in the sigmoid colon. No inflammatory changes noted. Internal hemorrhoids were found during retroflexion. The hemorrhoids were small. Electronically signed by Polina Rosa M.D. Polina Rosa M.D. 02/23/2023 12:41:24 PM Number of Addenda: 0 Note Initiated On: 02/23/2023 9:55 AM Procedure Code(s): --- Professional --- 09952, Colonoscopy, flexible; diagnostic, including collection of specimen(s) by brushing or washing, when performed (separate procedure) Diagnosis Code(s): --- Professional --- Z12.11, Encounter for screening for malignant neoplasm of colon K64.8, Other hemorrhoids K57.30, Diverticulosis of large intestine without perforation or abscess without bleeding CPT copyright 2020 [employer]. All rights reserved. The codes documented in this report are preliminary and upon marine geologist review may be revised to meet current compliance requirements. Recognized by the [employer] for promoting quality in endoscopy documented in this encounter Miscellaneous Notes * Perioperative Nursing Note - Nickolas Pedraza RN - 02/23/2023 12:[address] oRsa spoke with the patient about the procedure.patient is to repeat a colonoscopy in 10 years. documented in this encounter Plan of Treatment Not on file documented as of this encounter Procedures Procedure Name Priority Date/Time Associated Diagnosis Comments COLONOSCOPY 02/23/2023 12:00 PM CDT Encounter for screening colonoscopy COLONOSCOPY 02/23/2023 9:55 AM CDT documented in this encounter Results * COLONOSCOPY (02/23/2023 9:55 AM CDT) Anatomical Region Laterality Modality Other Narrative Procedure Note Polina Rosa MD - 02/23/2023 9:[address] [facility] Patient Name: Shivani Betancur Procedure Date: 02/23/2023 9:55 AM Date of : 1965 Admit Type: Outpatient Age: 57 Gender: Female Attending MD: Polina Rosa M.D. Room: [facility] ENDOSCOPY ROOM 1 Note Status: Finalized Patient [...] under direct vision. The Pediatric Colonoscope PCF-H190L [id number] was introducedthrough the anus and advanced to [...] 9:55 AM Procedure Code(s): --- Professional --- 86600, Colonoscopy, flexible; diagnostic, including collection of specimen(s) by brushing or washing, when performed (separateprocedure) Diagnosis Code(s): --- Professional --- Z12.11, Encounter for screening for malignant neoplasm of colon K64.8, Other hemorrhoids K57.30, Diverticulosis of large intestine without perforation orabscess without bleeding CPT copyright 2020 [employer]. All rights reserved. The codes documented in this report are preliminary and upon marine geologist reviewmay be revised to meet current compliance requirements. Recognized by the [place] for promoting quality in endoscopy us Polina Rosa MD ENDOSCOPY PROCEDURES Final Result documented in this encounter Visit Diagnoses Diagnosis Encounter for screening colonoscopy- Primary Encounter for screening colonoscopy documented in this encounter Admitting Diagnoses Diagnosis Encounter for screening colonoscopy documented in this encounter Administered Medications Inactive Administered Medications - up to 3 most recent administrations Medication Order MAR Action Action Date Dose Rate Site ondansetron (ZOFRAN) injection 4 mg 4 mg, intravenous, Administer over 2 Minutes, Every 30 min PRN, nausea, vomiting, Starting on Tue02/23/23 at 0955, For 2 doses, Recovery (GI), Indications: Nausea and VomitingIndications:Nausea and Vomiting sodium chloride 0.9% flush 0.5-20 mL 0.5-20 mL, intra-catheter, As needed, line care, Starting on Tue02/23/23 at 0956, Pre-Procedure (GI), Flush volume based on line type and size. Flush before and after each use. sodium chloride 0.9% infusion 30 mL/hr, intravenous, Continuous, Starting on Tue02/23/23 at 1030, Pre-Procedure (GI) Restarted 02/23/2023 12:21 PM CDT Rate/Dose Verify 02/23/2023 12:11 PM CDT 30 mL/ hr New Bag 02/23/2023 10:39 AM CDT 30 mL/hr 30 mL/hr sodium chloride 0.9% infusion 125 mL/hr, intravenous, Continuous, Starting on Tue02/23/23 at 1030, Recovery (GI) documented in this encounter Discontinued Medications Medication Sig Discontinue Reason Start Date End Da te denosumab (PROLIA) 60 mg/mL syringe Inject 60 mg under the skin every 6 (six) months Therapy completed 02/23/2023 clobetasoL (TEMOVATE) 0.05 % ointment clobetasol 0.05 % topical ointment APPLY THIN COAT TO AFFECTED AREA TWICE A DAY Therapy completed 02/23/2023 cholecalciferol (VITAMIN D-3) 1000 unit tablet Take 1,000 Units by mouth daily Therapy completed 02/23/2023 aspirin 81 mg enteric coated tablet TAKE ONE TABLET BY MOUTH ONCE DAILY Therapy completed 02/11/2020 02/23/2023 meloxicam (MOBIC) 15 mg tablet meloxicam 15 mg tablet Therapy completed 023 zoledronic [id number]-[id number]-gduzr (RECLAST) 5 mg/100 mL piggyback IV every 12 months Therapy completed 03/25/2021 02/23/2023 documented as of this encounter Historical Medications * This list may reflect changes made after this encounter. lubiprostone (AMITIZA) 8 mcg capsule Take 1 capsule (8 mcg total) by mouth 2 (two) times a day with meals 05/10/2024 added in this encounter Active and Recently Administered Medications Times are shown in CDT. Continuous Medication Order 02/21/2023 02/22/2023 02/23/2023 sodium chloride 0.9% infusion 30 mL/hr, intravenous, Continuous, Starting on Tue02/23/23 at 1030, Pre-Procedure (GI) 1039 (New Bag - Prov ider: Nickolas Pedraza RN)1211 (Rate/Dose Verify - Provider: Zlealem Lackey CRNA)1220 (Paused - Provider: Zelalem Lackey CRNA - Comment: Switch to gravity)1221 (Restarted - Provider: Zelalem Lackey CRNA)1725 (Due: Stopped) sodium chloride 0.9% infusion 125 mL/hr, intravenous, Continuous, Starting on Tue02/23/23 at 1030, Recovery (GI) 1030 (Due) PRN Medication Order 02/21/2023 02/22/2023 02/23/2023 ondansetron (ZOFRAN) injection 4 mg 4 mg, intravenous, Administer over 2 Minutes, Every 30 min PRN, nausea, vomiting, Starting on Tue02/23/23 at 0955, For 2 doses, Recovery (GI), Indications: Nausea and Vomiting sodium chloride 0.9% flush 0.5-20 mL 0.5-20 mL, intra-catheter, As needed, line care, Starting on Tue02/23/23 at 0956, Pre-Procedure (GI), Flush volume based on line type and size. Flush before and after each use. documented in this encounter Orders Medications Ordered That Kamari ht Not Have Been Administered Count Last Ordered Date First Ordered Date ondansetron (ZOFRAN) injection 4 mg 1 02/23 sodium chloride 0.9% flush 0.5-20 mL 1 03/2023 sodium chloride 0.9% infusion 1 02/23/2023 Discharge Count Last Ordered Date First Orde red Date DISCHARGE PATIENT 1 02/23/2023 documented in this encounter Care Teams Operations Administrative Assistant Relationship Specialty Start Date End Date Margarito العراقي MD [address] [facility] [place] [address] PCP - General Family Medicine 09/04/20 Raymond Vela MD [address] [place] [address] Referring Physician Obstetrics and Gynecology 08/17/21 documented as of this encounter
--- OUTSIDE RECORDS SUMMARY | 2024-11-19 04:49 | XMS_ITS | Encounter Summary ---
Author Organization [facility] Healthcare Address [address] [place] [address] Care Team Providers Care Electroencephalograph Technologist Name Role Phone Margarito العراقي MD Primary Care Provider Raymond Vela MD Unavailable [phone] Reason for Referral * Cardiology (Routine) - Closed Specialty Diagnoses / Procedures Referred By Contac t Referred To Contact Diagnoses Palpitations Swelling Procedures Transthoracic Echo (TTE) Complete W Doppler/CF Liv Vargas MD [address] [place] [address] [address] [place] [address] Phone: tel: fax: [address] [phone] Referral ID Status Reason Start Date Expiration Date Visits Re quested Visits Authorized [id number] Closed 01/11/2024 02/09/[address] OPER[address] ENGINEER Encounter Details Date Type Department Care Team (Late st Contact Info) Description 01/11/2024 Orders Only [place] Consumer Experience Consultant at [address] [phone] Liv Vargas MD [address] [place] [address] [address] [place] [phone] Palpitations (Primary Dx); Swelling Social History Tobacco Use Types Packs/Day Years [...] on file 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 Gender Identity Not on file Sexual Orientation Not on file documented as of this encounter Plan of Treatment Not on file documented as of this encounter Results * TRANSTHORACIC ECHO (TTE) COMPLETE W DOPPLER/CF WO CONTRAST (02/08/2024 8:45 AM CDT) Anatomical Region Laterality Modality Ultrasound 02/08/2024 8:24 AM CDT Narrative 02/08/2024 3:30 PM CDT [address] [address] Echocardiogram Report Patient Name: DALE BETANCUR : 1965 Study Date: 02/08/2024 8:24:57 AM Gender: F Tech: NL Ref Provider: LIV VARGAS Height(Cm): 150 BSA: 1.75 Weight(Kg): 73.5 ?Quality: Adequate Order Provider: LIV VARGAS PROCEDURES: Echocardiographic Report: Transthoracic echocardiogram with complete 2D, M-Mode, and color Doppler examination. INDICATIONS: Dx: Palpitations [R00.2 (ICD-10-CM)]; Swelling [R60.9 (ICD-10-CM)] - Measurements: 2D/M Mode ?Doppler Measurement ?Value ?Normal Range ? Measurement ? Value ?Normal Range EF Teich MM ?53.2 ? [ 54.0 - 74.0 ] percent ?KRISS Vmax ?2.24 ? cm2 EF Mod 4C ?50.0 ? percent ?AV Mean PG ?2 ?mmHg LVIDd MM ? 5.08 ? [ 3.80 - 5.20 ] cm ? AV Peak Jaciel ? 1.05 ? [ 1.00 - 1.70 ] m/s LVIDs MM ? 3.68 ? [ 2.20 - 3.50 ] cm ? AV VTI ?23.00 ?cm LVPWd MM ? 0.72 ? [ 0.60 - 0.90 ] cm ? LVOT Diam ? 1.93 ? cm IVSd MM ?0.78 ? [ 0.60 - 0.90 ] cm ? LVOT Peak Jaciel ? 0.80 ? [ 0.70 - 1.10 ] m/s LA Dimension MM ?3.06 ? [ 2.70 - 3.80 ] cm ? LVOT VTI ?16.98 ?cm AoR Diam MM ?3.19 ? [ 2.70 - 3.70 ] cm ? MV E Peak Jaciel ? 0.74 ? [ 0.60 - 1.30 ] m/s ACS MM ? 1.50 ? cm ? MV A Peak Jaciel ? 0.73 ? [ 1.00 - 1.20 ] m/s MV Mean PG ? 2 ?mmHg MV PHT ? 42 ? [ 20 - 100 ] msec MVA ?5.30 MV Decel Time ?144 ?[ 104 - 258 ] msec PV Peak Jaciel ?0.74 ? [ 0.40 - 0.80 ] m/s AK Peak Jaciel ?0.61 ? m/s TR Peak Jaciel ?2.26 ? [ 1.00 - 2.80 ] m/s TR Peak PG ? 21 ? mmHg RVSP ? 24.00 ?[ 10.00 - 36.00 ] mmHg E` ? 0.09 ? m/s E/E` ? 8.17 ? [ <= 10.00 ] PA Pressure ?24.00 ?[ 10.00 - 36.00 ] mmHg Measurement ?Value ?Normal Range ? Measurement ? Value ?Normal Range 2D/M Mode ?Doppler - FINDINGS: Atrial Septum: Normal atrial septum. Left Ventricle: Normal left ventricular systolic function with no focal wall motion abnormalities. Normal left ventricular size. Normal left ventricular wall thickness. Normal left ventricular diastolic function. Ejection fraction is visually estimated at 60 %. Left Atrium: The left atrium is normal in size. Right Ventricle: Normal right ventricular size. Normal right ventricular systolic function. Right Atrium: The right atrium is normal in size. Aortic Valve: Normal structure of the aortic valve. Mitral Valve: Mild mitral valve regurgitation. Pulmonic Valve: Trivial regurgitation in the pulmonic valve. Tricuspid Valve: Normal right ventricular systolic pressure. Estimated peak RVSP is 30 mmHg. Mild tricuspid regurgitation. Pericardium: Normal pericardium with no significant pericardial effusion. Aorta: Normal aortic root. Sinus of Valsalva is normal. Aortic arch is normal. Descending aorta is normal. IVC: Normal size and normal respiratory collapse consistent with normal right atrial pressure (<5 mmHg). Pulmonary Artery: Normal pulmonary artery size. CONCLUSIONS: Normal left ventricular systolic function with [...] By: Clifton Michele MD 2024-02-08 15:29:48 CDT Procedure Note Clifton Michele MD - 02/08/[address] [address] Echocardiogram Report Patient Name: DALE BETANCUR : [birth year] Study Date: 02/08/2024 8:24:57 AM Gender: F Tech: NL Ref Provider: LIV VARGAS Height(Cm): 150 BSA: 1.75 Weight(Kg): 73.5 Quality: Adequate Order Provider: LIV VARGAS PROCEDURES: Echocardiographic Report: Transthoracic echocardiogram with complete 2D, M-Mode, and color Dopplerexamination. INDICATIONS: Dx: Palpitations [R00.2 (ICD-10-CM)]; Swelling [R60.9 (ICD-10-CM)] - Measurements: 2D/M ModeDoppler Measurement Value Normal Range MeasurementValue Normal Range EF Teich MM 53.2 [ 54.0 - 74.0 ] percent KRISS Vmax2.24 cm2 EF Mod 4C 50.0 percent AV Mean PG2 mmHg LVIDd MM 5.08 [ 3.80 - 5.20 ] cm AV Peak Vel1.05 [ 1.00 - 1.70 ] m/s LVIDs MM 3.68 [ 2.20 - 3.50 ] cm AV VTI23.00 cm LVPWd MM 0.72 [ 0.60 - 0.90 ] cm LVOT Diam1.93 cm IVSd MM 0.78 [ 0.60 - 0.90 ] cm LVOT PeakVel 0.80 [ 0.70 - 1.10 ] m/s LA Dimension MM 3.06 [ 2.70 - 3.80 ] cm LVOT VTI16.98 cm AoR Diam MM 3.19 [ 2.70 - 3.70 ] cm MV E PeakVel 0.74 [ 0.60 - 1.30 ] m/s ACS MM 1.50 cm MV A PeakVel 0.73 [ 1.00 - 1.20 ] m/s MV Mean PG 2 mmHg MV PHT 42 [ 20 - 100 ] msec MVA 5.30 MV Decel Time 144 [ 104 - 258 ] msec PV Peak Jaciel 0.74 [ 0.40 - 0.80 ] m/s AK Peak Jaciel 0.61 m/s TR Peak Jaciel 2.26 [ 1.00 - 2.80 ] m/s TR Peak PG 21 mmHg RVSP 24.00 [ 10.00 - 36.00 ] mmHg E` 0.09 m/s E/E` 8.17 [ <= 10.00 ] PA Pressure 24.00 [ 10.00 - 36.00 ] mmHg Measurement Value Normal Range MeasurementValue Normal Range 2D/M ModeDoppler - FINDINGS: Atrial Septum: Normal atrial septum. Left Ventricle: Normal left ventricular systolic function with no focal wall motionabnormalities. Normal left ventricular size. Normal left ventricular wall thickness. Normal leftventricular diastolic function. Ejection fraction is visually estimated at 60 %. Left Atrium: The left atrium is normal in size. Right Ventricle: Normal right ventricular size. Normal right ventricular systolicfunction. Right Atrium: The right atrium is normal in size. Aortic Valve: Normal structure of the aortic valve. Mitral Valve: Mild mitral valve regurgitation. Pulmonic Valve: Trivial regurgitation in the pulmonic valve. Tricuspid Valve: Normal right ventricular systolic pressure. Estimated peak RVSP is 30mmHg. Mild tricuspid regurgitation. Pericardium: Normal pericardium with no significant pericardial effusion. Aorta: Normal aortic root. Sinus of Valsalva is normal. Aortic arch is normal.Descending aorta is normal. IVC: Normal size and normal respiratory collapse consistent with normal rightatrial pressure (<5 mmHg). Pulmonary Artery: Normal pulmonary artery size. CONCLUSIONS: Normal left ventricular systolic function with no focal wall motionabnormalities. Normal left ventricular size. Normal left ventricular wall thickness. Normal leftventricular diastolic function. Ejection fraction is visually estimated at 60 %. Mild mitral valve regurgitation. Normal right ventricular systolic pressure. Estimated peak RVSP is 30mmHg. Mild tricuspid regurgitation. Trivial regurgitation in the pulmonic valve. Electronically Signed By: Clifton Michele MD 2024-02-08 15:29:48 CDT us Liv Vargas MD CV ECHO PROCEDURES Final R esult * Basic metabolic panel (01/17/2024 2:10 PM RAILROAD OPERATING ENGINEER) Sodium 139 135 - 145 mmol/L [facility] ([facility]) Potassium, pl 3.8 3.3 - 4.9 mmol/L [facility] ([place]) Chloride 101 97 - 110 mmol/L [facility] ([place]) CO2 27 22 - 32 mmol/L [facility] ([place]) Anion gap 11 2 - 15 mmol/L [facility] ([place]) BUN 16 6 - 25 mg/dL [facility] ([place]) Creatinine 0.73 0.60 - 1.10 mg/dL [facility] ([place]) Glucose 106 70 - 199 mg/dL [facility] ([place]) Comment: Interpretive Data Fasting glucose [...] classification and Diagnosis of Diabetes Diabetes Care 2021; 46: S19-S40. Current interpretive data was last revised 2022. Calcium 9.5 8.5 - 10.3 mg/dL [facility] ([facility]) Blood 01/17/2024 2:10 PM RAILROAD OPERATING ENGINEER 01/17/2024 2:49 PM RAILROAD OPERATING ENGINEER us Liv Vargas MD LAB BLOOD ORDERABLES Final Result [facility] ([place] [facility]) [address] [facility] Department [place] [address] documented in this encounter Visit Diagnoses Diagnosis Palpitations- Primary Swelling Localized superficial swelling, mass, or lump Palpitations Swelling Localized superficial swelling, mass, or lump documented in this encounter Care Teams Electroencephalograph Technologist Relationship Specialty Start Date End Date Margarito العراقي MD [address] [address] PCP - General Family Medicine 09/04/20 Raymond Vela MD [address] [place] [address] Referring Physician Obstetrics and Gynecology 08/17/21 documented as of this encounter
--- OUTSIDE RECORDS SUMMARY | 2024-11-19 04:49 | XMS_ITS | Encounter Summary ---
Author Organization [facility] Address 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 CAL AIDES TEACHER * Telephone Encounter - Shefali Herrmann MA - 11/08/2022 11:22 AM MEDICAL AIDES TEACHER Lm for Fabi to contact the office. CAL AIDES TEACHER * Telephone Encounter - Shefali Herrmann MA - 11/03/2022 11:44 AM MEDICAL AIDES TEACHER Lm for Fabi to contact the office. CAL AIDES TEACHER * Telephone Encounter - Shefali Herrmann MA - 10/29/2022 11:26 AM MEDICAL AIDES TEACHER Lm for fabi to contact the office CAL AIDES TEACHER * Telephone Encounter - Radha Robertson MA - 10/28/2022 3:29 PM CST Pt called in and lmom wanting to know what her lab results were from her last lab draw in Jul please advise CAL AIDES TEACHER documented in this encounter Plan of Treatment Not on file documented as of this encounter Visit Diagnoses Not on filedocumented in this encounter Care Teams Direct Support Staff Relationship Specialty Start Date End Date Margarito العراقي MD [address] [place] [address] PCP - General Family Medicine 09/04/20 Raymond Vela MD [address] [place] [address] Referring Physician Obstetrics and Gynecology 08/17/21 documented as of this encounter
--- OUTSIDE RECORDS SUMMARY | 2024-11-19 04:49 | XMS_ITS | Encounter Summary ---
Author Organization [facility] Healthcare [place] [address] Care Team Providers Care Wrapping Machine Tender Name Role Phone Margarito العراقي MD Primary Care Provider [phone] Raymond Vela MD Unavailable [phone] Encounter Details Date Type Department Care Team (Late st Contact Info) Description 08/11/2022 2:40 PM CDT Lab [facility] [address] [place] [address] Jones Younger MD [address] [place] [address] [address] [place] [address] Corina Zambrano, [facility] [address] [facility] [address] [place] [address] Ptosis of left eyelid Social History Tobacco Use Types Packs/Day [...] on file 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 Gender Identity Not on file Sexual Orientation Not on file documented as of this encounter Plan of Treatment Not on file documented as of this encounter Procedures Procedure Name Priority Date/Time Associated Diagnosis Comments TSH Routine 08/11/2022 2:54 PM CDT Ptosis of left eyelid documented in this encounter Results * TSH (08/11/2022 2:54 PM CDT) Thyroid Stimulating Hormone 0.98 0.30 - 4.20 mcIUnit/mL [facility] ([place]) Blood 08/11/2022 2:54 PM CDT 08/11/2022 3:10 PM CDT us Corina Zamrbano DNP LAB BLOOD ORDERABLES Final Resu lt [facility] ([place]) 1 [facility] [place] [facility] Department [place] [address] documented in this encounter Visit Diagnoses Diagnosis Ptosis of left eyelid Unspecified ptosis of eyelid documented in this encounter Care Teams Wrapping Machine Tender Relationship Specialty Start Date End Date Margarito العراقي MD [address] [place] [address] PCP - General Family Medicine 09/04/20 Raymond Vela MD [address] [place] [address] Referring Physician Obstetrics and Gynecology 08/17/21 documented as of this encounter
--- OUTSIDE RECORDS SUMMARY | 2024-11-19 04:49 | XMS_ITS | Encounter Summary ---
Author Organization [facility] Address [address] [place] [address] Care Team Providers Care Captain [employer] Name Role Phone Margarito العراقي MD Primary Care Provider [phone] Raymond Vela MD Unavailable [phone] Reason for Visit * Reason Comments Follow-up Hyperlipidemia Encounter Details Date Type Department Care Team (Latest Contact Info) Description 10/02/2021 11:00 AM [facility] Office Visit [facility] [address] [place] [address] [address] [place] [address] Liliya Ridley, KIM [address] [facility] [address] [place], [place] [id number] Essential hypertension (Primary Dx); Benign hypertension; Hyperlipidemia, unspecified hyperlipidemia type Social History Tobacco Use Types Packs/Day Years [...] on file 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:46 AM [employer] [facility] Gender Identity Not on file Sexual Orientation Not on file documented as of this encounter Last Filed Vital Signs Vital Sign Reading Time Taken Comments Blood Pressure 135/91 10/02/2021 11:18 AM [facility] Pulse 95 10/02/2021 11:18 AM [employer] [facility] Temperature 36.4 ??C (97.5 ??F) 10/02/2021 1 1:18 AM [employer] [facility] Respiratory Rate 16 10/02/2021 11:1 8 AM [facility] Oxygen Saturation - - Inhaled Oxygen Concentration - - Weight 72.9 kg (160 lb 12.8 oz) 021 11:18 AM [employer] [facility] [employer] Height 152.4 cm (5') 10/02/2021 11:18 AM [employer] [facility] Body Mass Index 31.4 10/02/2021 11:18 AM [employer] [facility] documented in this encounter Ordered Prescriptions Prescription Sig Dispense Quantity Refills Last Filled Start Date End Date metoprolol tartrate (LOPRESSOR) 50 mg immediate release tablet Take 1 tablet (50 mg total) by mouth 2 (two) times a day 180 tablet 3 10/02/2021 10/20/2022 documented in this encounter Progress Notes * Liliya Ridley, SHOP FIRER/FIREMAN - 10/02/2021 11:00 AM CST Cardiology note Reason for Office Visit: Chief Complaint Patient presents with ??? Follow-up ??? Hyperlipidemia History of Present Illness: Shivani Betancur is a 56 y.o. female with history of hypertension and hyperlipidemia. Has been known to have chest pain in the past but was not had negative stress tests in 2017 in 2019. Presents to the office after having issues with high blood pressure since this past winter. She she saw a physician in [facility] that took her off her Bystolic and was started on irbesartan 150 mg every day and then reached to to 300 mg every day. When her blood pressure is good her heart rate has been running high and 110 120s in the patient feels jittery. She has been taking green coffee caffeine capsules for weight loss and was advised to stop those per Dr. Martin. Dr. Sarkar her primary care physician put her on a heart monitor for two weeks. I presently do not have the results. Blood pressures have been running 160s to 170s over 80s for 12/22/2010 with heart rate of 101 to 124. EKG today SR- patient's primary care Dr. العراقي flat her on metoprolol XL 25 mg daily and she has been doing well on that- heart rates is still been running elevated. Discussed adjusting medicines decreasing irbesartan 150 mg p.o. daily increasing the metoprololXL to b.i.d. patient agrees. Patient advised to limit caffeine, increase walking for exercise, consider anxiety issues. Patient will complete a blood pressure diary with symptoms. She is completing her two week monitor per Dr. Parker. Thyroid levels were normal 10/01/2020 Blood pressure running low at time. Pt takes either 75-150 day. Pt denies chest pain, shortness of breath. Denies syncope or near syncope. Pt states she has had syncope related to hypotension, she states some days she needs the full dose of 150 and is wanting to dose herself depending onblood pressure. Denies any edema. Still smoking 06/12/2021 Pt states she is very salt sensitive and blood pressure is reactive at home. Pt states she is currently taking Metoprolol succinate 25mg BID and irbesartan 75mg TID and blood pressure has been well controlled with that regimen. Will continue to monitor blood pressure. She was given HCTZ but is hesitant to start, after discussion pt states she will start it today and encouraged pt to do irbesartan BID instead instead of TID. Pt denies any chest pain, shortness of breath, occasional cramps in her legs. 10/02/2021 Pt denies any chest pain, doing well with current medication, heart rate remains elevated. Will increase metoprolol to 50mg BID. Pt has no concerns today. Past Medical History: Diagnosis Date ??? Disorder [...] Diverticulosis ??? HX OTHER MEDICAL migraines; Comments: ORTEGA 11/27/2015 - ??? HX OTHER MEDICAL chronic joint pain; Comments: ORTEGA 11/27/2015 - ??? HX OTHER MEDICAL neuropathy; Comments: ORTEGA 11/27/2015 - ??? Hyperlipidemia ??? Hypertension Hypertension ??? Hypertension Hypertension ??? PONV (postoperative nausea and vomiting) ??? Sleep apnea CPAP Review of systems: Review of Systems Constitutional: Negative for decreased appetite, malaise/fatigue, weight gain and weight loss. HENT: Negative for ear discharge, hearing loss and nosebleeds. Eyes: Negative for blurred vision and visual disturbance. Cardiovascular: Negative for chest pain, claudication, dyspnea on exertion, irregular heartbeat, leg swelling, near-syncope, palpitations, paroxysmal nocturnal dyspnea and syncope. Respiratory: Negative for cough, shortness of breath, sleep disturbances due to breathing, snoring and wheezing. Hematologic/Lymphatic: Negative for bleeding problem. Does not bruise/bleed easily. Skin: Negative for color change and poor wound healing. Musculoskeletal: Negative for back pain and myalgias. Gastrointestinal: Negative for bloating, heartburn and nausea. Genitourinary: Negative for hematuria. Neurological: Negative for excessive daytime sleepiness, dizziness, headaches, light-headedness, loss of balance and tremors. Psychiatric/Behavioral: Negative for altered mental status, depression and memory loss. Family and Social history Family History Problem [...] Mother ??? Skin cancer Mother Social History Tobacco Use ??? Smoking status: Current Every Day Smoker Packs/day: 0.25 ??? Smokeless tobacco: Never Used Vaping Use ??? Vaping Use: Never used Substance Use Topics ??? Alcohol use: No ??? Drug use: No Allergies Allergen Reactions ??? Ciprofloxacin Shortness of [...] only Reaction: Itching, Nausea, ??? Lisinopril Cough Medications: has a current medication list which includes the following prescription(s): uqwvlhfcieyhv-ffsoasj-esynjjfd (EXCEDRIN MIGRAINE), aspirin, atorvastatin (LIPITOR), cyclobenzaprine (FLEXERIL), duloxetinedr (CYMBALTA), estrace, hydrocodone-acetaminophen (NORCO), irbesartan (AVAPRO), isosorbide mononitrate er (IMDUR), lubiprostone (AMITIZA), narcan, keofkbgw-bnzttzrcb-mqzcpltusnigy (MAXITROL), nitrofurantoin monohydrate (MACROBID), omeprazole (PRILOSEC), pen needle, diabetic (BD ULTRA-FINE MINI PEN NEEDLE), quetiapine (SEROQUEL), and zolpidem (AMBIEN). Current Outpatient Medications Medication Sig Dispense Refill ??? saoyhqrwdmvha-rkcwobd-bepirdlf (EXCEDRIN MIGRAINE) 250-250-65 mg per tablet 1-2 per week ??? aspirin 81 mg enteric coated tablet TAKE ONE TABLET BY MOUTH ONCE DAILY 90 tablet 1 ??? atorvastatin (LIPITOR) 20 mg tablet TAKE ONE TABLET BY MOUTH ONCE DAILY 90 tablet 1 ??? cyclobenzaprine (FLEXERIL) 10 mg tablet Take 10 mg by mouth 3 (three) times a day as needed. ??? DULoxetine DR (CYMBALTA) 30 mg capsule ??? estradiol (ESTRACE) 0.01 % (0.1 mg/gram) vaginal cream INSERT 1/2 TO 1 GRAM VAGINALLY 1 TO 2 TIMES PER WEEK 42.5 0 ??? HYDROcodone-acetaminophen (NORCO) 5-325 mg per tablet Take 1 tablet by mouth every 6 (six) hours as needed. 0 ??? irbesartan (AVAPRO) 75 mg tablet 150 mg Take one tablet daily ??? isosorbide mononitrate ER (IMDUR) 60 mg 24 hr tablet TAKE ONE TABLET BY MOUTH ONCE DAILY (Patient not taking: Reported on 10/22/2019) 90 tablet 1 ??? lubiprostone (AMITIZA) 24 mcg capsule Take 24 mcg by mouth daily with breakfast. ??? NARCAN 4 mg/actuation spray,non-aerosol ??? ocrxuxln-szyvjcdrt-dixlmgsmrdxsy (MAXITROL) 3.5mg/mL-10,000 unit/mL-0.1 % ophthalmic suspension ??? nitrofurantoin monohydrate (MACROBID) 100 mg capsule Take 1 capsule (100 mg total) by mouth 2 (two) times a day for 5 days 10 capsule 0 ??? omeprazole (PriLOSEC) 40 mg capsule TAKE ONE CAPSULE BY MOUTH ONCE DAILY 30 capsule 1 ??? pen needle, diabetic (BD ULTRA-FINE MINI PEN NEEDLE) 31 gauge x 3/16 needle use one needle daily with Forteo Pen ??? QUEtiapine (SEROquel) 50 mg tablet ??? zolpidem (AMBIEN) 10 mg tablet Take 1 tablet (10 mg total) by mouth nightly as needed for sleep30 tablet 5 No current facility-administered medications for this visit. Vital Signs: Vitals BP 135/91 (BP Location: Right arm, Patient Position: Sitting) Pulse 95 Temp 36.4 ??C (97.5 ??F) Resp 16 Ht 152.4 cm (5') Wt 72.9 kg (160 lb 12.8 oz) BMI 31.40 kg/m?? Vitals: 10/02/21 1118 BP: 135/91 Pulse: 95 Resp: 16 Temp: 36.4 ??C (97.5 ??F) Wt Readings from Last 3 Encounters: 10/02/21 72.9 kg (160 lb 12.8 oz) 08/17/21 72.6 kg (160 lb 0.9 oz) 06/12/21 72.6 kg (160 lb) Physical Exam: Physical Exam Constitutional: General: She is not in acute distress. Appearance: Normal appearance. She is well-developed. She is not diaphoretic. HENT: Mouth/Throat: Pharynx: No oropharyngeal exudate. Eyes: Conjunctiva/sclera: Conjunctivae normal. Pupils: Pupils are equal, round, and reactive to light. Neck: Vascular: No carotid bruit or JVD. Trachea: No tracheal deviation. Cardiovascular: Rate and Rhythm: Normal rate and regular rhythm. Pulses: Intact distal pulses. No decreased pulses. Carotid pulses are 2+ on the right side and 2+ on the left side. Radial pulses are 2+ on the right side and 2+ on the left side. Dorsalis pedis pulses are 2+ on the right side and 2+ on the left side. Posterior tibial pulses are 2+ on the right side and 2+ on the left side. Heart sounds: S1 normal and S2 normal. No murmur heard. No gallop. Pulmonary: Effort: Pulmonary effort is normal. Breath sounds: No decreased breath sounds, wheezing, rhonchi or rales. Abdominal: General: Bowel sounds are normal. Palpations: Abdomen is soft. Skin: General: Skin is warm and dry. Neurological: Mental Status: She is alert and oriented to person, place, and time. Labs: Lab Results Component Value Date CHOL 133 10/11/2018 TRIG 133 10/11/2018 HDL 56 10/11/2018 LDL 56 10/11/2018 Lab Results Component Value Date TSH 0.67 10/02/2019 FREET4 1.22 04/15/2020 Testing: No results found. Results for orders placed or performed during the hospital encounter of 08/15/18 ECG 12 lead Result Value Ref Range Patient age 52 years Interpretation Text SINUS RHYTHMMINIMAL VOLTAGE CRITERIA FOR LVH, CONSIDER NORMAL VARIANTBORDERLINE ECGPREVIOUS TRACIN08/01/2017 16.46 Ventricular Rate EKG/Min 77 /min P Wave Duration 109 ms QRS-Interval (MSEC) 84 ms NJ-Interval (MSEC) 155 ms QT Interval 361 ms QTc 390 ms QTC Interval ms P Union 18 deg QRS Union -10 deg T Union -8 deg ] Tests: 08/03/2017 Last spec thallium was negative for ischemia with EF=67% 08/02/2017 Last 2D echocardiogram showed EF= 60-65% CHol 206 HDL 38 TG 318 LDL 104 08/02/2017 ALT 14 AST 15 01/2019 STress negative EK08/01/2017 SR Assessment: 1- chest pain- negative stress no further symptoms 2- HTN- controlled 3- HLD- followed by PMD 4- NEO- CPAP to follow up 5- tobacco and ETOH abuse Essential Hypertension [I10] Tobacco Use [Z72.0] Mixed Hyperlipidemia [E78.2] Plan: Increase metoprolol to 50mg BID Diagnoses and all orders for this visit: Essential hypertension (Primary) Benign hypertension Hyperlipidemia, unspecified hyperlipidemia type 10/02/2021 Pt to bring blood pressure log No follow-ups on file. Thank you for the consult. We will be happy to follow in this patient's care. Liliya Ridley NP11:35 AM Cc:Margarito العراقي MD WORM [employer]OWER documented in this encounter Plan of Treatment Not on file documented as of this encounter Visit Diagnoses Diagnosis Essential hypertension- Primary Unspecified essential hypertension Benign hypertension Essential hypertension, benign Hyperlipidemia, unspecified hyperlipidemia type documented in this encounter Discontinued Medications Medication Sig Discontinue Reason Start Date End Da te azelastine 205.5 mcg (0.15 %) spray,non-aerosol azelastine 205.5 mcg (0.15 %) nasal spray SPRAY 1 SPRAY INTO EACH NOSTRIL TWICE A DAY 10/02/2021 metoprolol XL (TOPROL-XL) 25 mg extended release tablet TAKE 1 TABLET BY MOUTH TWICE A DAY 06/17/2021 10/02/2021 documented as of this encounter Care Teams Captain [employer] Relationship Specialty Start Date End Date Margarito العراقي MD [address] [address] PCP - General Family Medicine 09/04/20 Raymond Vela MD [address] [place] [address] Referring Physician Obstetrics and Gynecology 08/17/21 documented as of this encounter
--- OUTSIDE RECORDS SUMMARY | 2024-11-19 04:49 | XMS_ITS | Encounter Summary ---
Author Organization [facility] Address [address] [place] [address] Care Team Providers Care Adult Daycare Coordinator Name Role Phone Margarito العراقي MD Primary Care Provider [phone] Raymond Vela MD Unavailable Reason for Referral * MRI/CAT/PET Scan (Routine) - Closed Specialty Diagnoses / Procedures Referred By Contac t Referred To Contact Radiology Diagnoses Meningioma (HCC) Procedures MRI Brain W WO Contrast Corina Zambrano DNP Phone: tel: fax: [facility] [address] [place] [address] Referral ID Status Reason Start Date Expiration Date Visits Re quested Visits Authorized [id number] Closed 01/25/2022 02/24/2023 1 1 NCE INTERN Encounter Details Date Type Department Care Team (Late st Contact Info) Description 01/25/2022 11:15 AM SCIENCE INTERN Office Visit [facility] [address] [place] [address] Corina Zambrano DNP [address] [facility] [address] [place] [address] Obstructive sleep apnea syndrome (Primary Dx); Hypersomnia; Obesity (BMI 30-39.9); Chronic insomnia; Involuntary jerky movements; Meningioma (CMS/HCC) (HCC) Social History Tobacco Use Types Packs/Day [...] on file 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:46 AM SCIENCE INTERN Gender Identity Not on file Sexual Orientation Not on file documented as of this encounter Last Filed Vital Signs Vital Sign Reading Time Taken Comments Blood Pressure 149/98 01/25/2022 10:49 AM SCIENCE INTERN Pulse 93 01/25/2022 10:49 AM SCIENCE INTERN Temperature - - Respiratory Rate - - Oxygen Saturation - - Inhaled Oxygen Concentration - - Weight 78.1 kg (172 lb 3.2 oz) 01/25/2022 10:49 AM SCIENCE INTERN Height 152.4 cm (5') 01/25/2022 10:49 AM SCIENCE INTERN Body Mass Index 33.63 01/25/2022 10:49 AM SCIENCE INTERN documented in this encounter Progress Notes * Corina Zambrano NP - 01/25/2022 11:15 AM CST Chief complaints: NEO, hypersomnia. Delayed sleep cycle diorder. 1. Moderate NEO. Pt endorses she has been compliant to the therapy. No change in her sleep schedule with going to bed midnight-2 am and awaken between 6:30-7 am. Tolerating Full mask. 2. Pt reports Improved control of her daytime sleepiness. The pt's Alpha Sleepiness Scale (ESS) is: 2 (was 8 during the last visit). 3. Obesity. Reports some weight gain. 4. 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 5. Muscle jerking. She has noticed intermittent body jerky movement that wakes up in the middle of the night and cannot go back to bed. On Ropinirole by PCP and has been working. She was on clonazepam but she no longer takes it. 6. History of meningioma Was under Dr Younger's care. Her last MRI brain was in 2018 and needs to repeat. Past Medical History: Diagnosis Date ??? Disorder [...] nausea and vomiting) ??? Sleep apnea CPAP Social History Socioeconomic History ??? Marital status: Spouse name: Not on file ??? Number of children: Not on file ??? Years of education: Not on file ??? Highest education level: Not on file Occupational History ??? Not on file Social Needs ??? Financial resource strain: Not on file ??? Food insecurity Worry: Not on file Inability: Not on file ??? Transportation needs Medical: Not on file Non-medical: Not on file Tobacco Use ??? Smoking status: Current Every Day Smoker Packs/day: 0.25 ??? Smokeless tobacco: Never Used Substance and Sexual Activity ??? Alcohol use: No ??? Drug use: No ??? Sexual activity: Not on file Lifestyle ??? Physical activity Days per week: Not on file Minutes per session: Not on file ??? Stress: Not on file Relationships ??? Social connections Talks on phone: Not on file Gets together: Not on file Attends amish service: Not on file Active member of club or organization: Not on file Attends meetings of clubs or organizations: Not on file Relationship status: Not on file ??? Intimate partner violence Fear of current or ex partner: Not on file Emotionally abused: Not on file Physically abused: Not on file Forced sexual activity: Not on file Other Topics Concern ??? Not on file Social History Narrative History of Domenstic Violence: y Family History Problem Relation Age of Onset [...] Coronary artery disease; ??? Stroke Other Stroke; Review of Systems Constitutional: Denies fever, chills, or fatigue HEENT: Denies vision change, hearing, or sore throat Respiratory: Denies SOB, wheezing, or cough Cardiovascular: Denies chest pain, palpitation, or cyanosis GI: Denies abdominal pain, constipation, or diarrhea : Denies dysuria, polyuria, or hematuria Integumentary: Denies ulcer, rash, or wound Psych: Denies depression, mood issue, or suicidal thought Hemo/Lymph: Denies bleeding, bruising, or petechiae Metabolic/Endocrine: Denies cold intolerance, heat intolerance, or generalized weakness BP 150/94 Pulse 92 Ht 149.9 cm (4' 11 ) Wt 74.4 kg (164 lb) BMI 33.12 kg/m?? Physical Exam Constitutional: Appearance: She is well-developed. HENT: Head: Normocephalic and atraumatic. Eyes: Conjunctiva/sclera: Conjunctivae normal. Pupils: Pupils are equal, round, and reactive to light. Neck: Musculoskeletal: Normal range of motion and neck supple. Cardiovascular: Rate and Rhythm: Normal rate and regular rhythm. Pulmonary: Effort: Pulmonary effort is normal. Breath sounds: Normal breath sounds. Abdominal: General: Bowel sounds are normal. Palpations: Abdomen is soft. Musculoskeletal: Normal range of motion. Skin: General: Skin is warm and dry. Neurological: Comments: ALERT AND ORIENTED TO TIME PLACE AND PERSON. AP 1. Obstructive sleep apnea with baseline AHI 15 in 2013. : Following her last visit she had a new CPAP and has been compliance and data shows it has been effective. The physiology of sleep disordered breathing and its increased association with hypertension,diabetes, heart arrhythmia, strokes, heart attacks, heart failure, hypersomnia, obesity and mood disorders was discussed. -will further adjust the setting to 9-11 cm as the median is 9.4 Date range: 12/21/2021 through 01/20/2020 to Compliance rate: 93 % Average usage: 7 hours 32 minutes Pressure: Auto setting 7-11 cm, median 9.4, maximum 10.8 Leaks: 2.6 L/ min AHI: 3.6 Date range: 12/31/2020 through 01/21/2021 Compliance rate: 95 % Average usage: 6 hours 28 minutes Pressure: Auto setting 5-11 cm, median 7.5, maximum 10.4 Leaks: L/ min AHI: 2.1 Date range: December 02, 2019 to December 31, 2019 Compliance rate: 50 % Average usage: 5 hours 44 minutes Pressure: Auto setting 5-20 cm, median 7.1, max 10.2 Leaks:? L/ min AHI: 3.8 The physiology of sleep disordered breathing and its increased association with hypertension, diabetes, heart arrhythmia, strokes, heart attacks, heart failure, hypersomnia, obesity and mood disorders was discussed. Pt did not bring the chip and cannot assess the compliance today. Advised to bring the chip sometime. Pt to continue pressure therapy. 2. Delayed sleep phase cycle disorder: Patient's sleep scheduled is suggestive of circadian rhythm sleep disorder. Patient was discussed the above. Continue Ambien 10 mg at bedtime p.r.n. with melatonin 1 mg 5 hours before sleep time and 10mg at bedtimre. Pt to restart the chrono therapy. 3. Obesity: The effects of obesity obstructive sleep apnea syndrome and other morbidities was discussed. Recommended diet and exercise in losing weight. Patient verbalizes an understanding. 4. Body jerky movement. - discontinued clonazepam. Ropinirole given by her PCP is working well. 5. History of meningioma. Last MRI brain wwo was in [address] Younger confirmed extra-axial small mass over right frontal region. Will repeat MRI brain wwo. Past investigations: 1. 08/15/2018 CT of head without: ??Extra-axial small mass over right frontal region. ??I reviewed the image. ?? 2. 08/15/2018 EKG: ??Sinus rhythm. ??HR 77. ?? 3. 08/15/2018: ??CMP normal except creatinine 0.58. ??CBC normal ??except WBC 10.5. 4. 09/28/2018 MRI of brain with/without: No acute intracranial process. No significant encephalomalacia. Small right frontal extra-axial enhancing mass lesion suggestive of meningioma. I Reviewed the image. 5. 09/26/2018 EEG: No epileptiform discharge. ?? Will follow up in 12 months. Will call with MRI result. NCE INTERN documented in this encounter Plan of Treatment Not on file documented as of this encounter Results * MRI Brain W WO Contrast (03/24/2022 10:46 AM CDT) Anatomical Region Laterality Modality Head and Neck N/A Magnetic Resonan ce 03/24/2022 11:0 9 AM CDT Narrative 03/24/2022 11:17 AM CDT EXAM DESCRIPTION: ?? MRI BRAIN W WO CONTRAST REASON FOR STUDY: Re-evaluation of right frontal meningioma for years. ??No new symptoms. TECHNIQUE: Multiplanar imaging includes noncontrast T1, T2, FLAIR, diffusion with ADC map and post contrast T1 sequences. Additional sequence(s) sensitive to blood products. ??Images stored on PACS. ? CONTRAST TYPE/DOSE: ?? 15 mL Dotarem ??injected via ?? peripheral IV site without reported incident. COMPARISON: ?? MRI brain without and with contrast 09/28/2018; CT head without contrast 08/15/2018; CT head without contrast 10/01/2014. FINDINGS: CEREBRUM: ?? No hemorrhage, edema, or mass effect. ??No abnormal enhancement. ? WHITE MATTER: ?? There is ??mild ?? periventricular ?? T2/FLAIR hyperintense ?? white matter disease, nonspecific, though likely secondary to chronic microvascular ischemia. ?? POSTERIOR FOSSA: ?? Brainstem and cerebellum are unremarkable. ??No abnormal enhancement. DIFFUSION IMAGING: ?No restricted diffusion to suggest acute/subacute ischemia or infarct. ?? EXTRAAXIAL SPACES: ?? No extra-axial fluid collection. ?? There is a stable in size 0.7 x 1.0 x 0.8 cm (CC by AP by TV) enhancing dural-based, extra-axial mass along the right frontal convexity with unchanged invasion of the subjacent right frontal bone and no significant mass effect upon the subjacent right frontal lobe consistent with unchanged meningioma. BRAIN VOLUME: ?? Within normal limits for age. PITUITARY: ?? Unremarkable. VASCULATURE: ?? No flow disturbance evident. CALVARIUM: No acute abnormality. ??As above. ?? ORBITS: ??No acute abnormality. ??Ocular lenses and globes normal in conformation and position. PARANASAL SINUSES AND MASTOIDS: ?? Well-aerated with no fluid levels. No mucosa thickening. OTHER: ?? No other significant finding. IMPRESSION: ??No acute intracranial process with chronic findings as above, specifically noting stable in size 1 cm enhancing enhancing dural-based, extra-axial mass along the right frontal convexity consistent with unchanged meningioma. THIS IS AN ELECTRONICALLY VERIFIED FINAL REPORT 03/24/2022 11:17 AM - Electronically signed by ??Jb Franco M.D. FREDDIE: FREDDIE D: ??03/24/2022 11:17 AM T: ??03/24/2022 11:17 AM Report ID: [id number] Reading Location: ??[id number] Procedure Note Jb Franco MD - 03/24/2022 EXAM DESCRIPTION: MRI BRAIN W WO CONTRAST REASON FOR STUDY: Re-evaluation of right frontal meningioma for years. Nonew symptoms. TECHNIQUE: Multiplanar imaging includes noncontrast T1, T2, FLAIR,diffusion with ADC map and post contrast T1 sequences. Additional sequence(s)sensitive to blood products. Images stored on PACS. CONTRAST TYPE/DOSE: 15 mL Dotarem injected via peripheral IV sitewithout reported incident. COMPARISON: MRI brain without and with contrast 09/28/2018; CT headwithout contrast 08/15/2018; CT head without contrast 10/01/2014. FINDINGS: CEREBRUM: No hemorrhage, edema, or mass effect. No abnormalenhancement. WHITE MATTER: There is mild periventricular T2/FLAIR hyperintense white matter disease, nonspecific, though likely secondary to chronic microvascular ischemia. POSTERIOR FOSSA: Brainstem and cerebellum are unremarkable. No abnormal enhancement. DIFFUSION IMAGING: No restricted diffusion to suggest acute/subacute ischemia or infarct. EXTRAAXIAL SPACES: No extra-axial fluid collection. There is a stablein size 0.7 x 1.0 x 0.8 cm (CC by AP by TV) enhancing dural-based,extra-axial mass along the right frontal convexity with unchanged invasion of the subjacent right frontal bone and no significant mass effect upon thesubjacent right frontal lobe consistent with unchanged meningioma. BRAIN VOLUME: Within normal limits for age. PITUITARY: Unremarkable. VASCULATURE: No flow disturbance evident. CALVARIUM: No acute abnormality. As above. ORBITS: No acute abnormality. Ocular lenses and globes normal in conformation and position. PARANASAL SINUSES AND MASTOIDS: Well-aerated with no fluid levels. Nomucosa thickening. OTHER: No other significant finding. IMPRESSION: No acute intracranial process with chronic findings as above,specifically noting stable in size 1 cm enhancing enhancing dural-based, extra-axialmass along the right frontal convexity consistent with unchanged meningioma. THIS IS AN ELECTRONICALLY VERIFIED FINAL REPORT 03/24/2022 11:17 AM - Electronically signed by Jb Franco M.D. FREDDIE: FREDDIE Report ID: [id number] Reading Location: [id number] [facility] IM MRI PROCEDURES Final Result documented in this encounter Visit Diagnoses Diagnosis Obstructive sleep apnea syndrome- Primary Obstructive sleep apnea (adult) (pediatric) Hypersomnia Hypersomnia, unspecified Obesity (BMI 30-39.9) Chronic insomnia Insomnia, unspecified Involuntary jerky movements Meningioma (HCC) Benign neoplasm of cerebral meninges Meningioma (HCC) Benign neoplasm of cerebral meninges documented in this encounter Care Teams Adult Daycare Coordinator Relationship Specialty Start Date End Date Margarito العراقي MD [address] [address] PCP - General Family Medicine 09/04/20 Raymond Vela MD [address] [place] [address] Referring Physician Obstetrics and Gynecology 08/17/21 documented as of this encounter
--- OUTSIDE RECORDS SUMMARY | 2024-11-19 04:49 | XMS_ITS | Encounter Summary ---
Author Organization [facility] Address [address] [place] [address] Care Team Providers Care Collar Baster Name Role Phone Margarito العراقي MD Primary Care Provider [phone] Raymond Vela MD Unavailable [phone] Reason for Referral * Cardiology (Routine) - Closed Specialty Diagnoses / Procedures Referred By Francescoac t Referred To Contact Diagnoses Palpitations Procedures MCT Mobile Cardiac Telemetry Event Monitor Liv Vargas MD [address] [place] [address] [address] [place] [address] Phone: tel: fax: [address] [address] Referral ID Status Reason Start Date Expiration Date Visits Re quested Visits Authorized [id number] Closed 01/30/2024 02/28/2025 1 1 Reason for Visit * Cardiology (Routine) - Closed Specialty Diagnoses / Procedures Referred By Contac t Referred To Contact Diagnoses Palpitations Procedures MCT Mobile Cardiac Telemetry Event Monitor Liv Vargas MD [address] [place] [address] [address] [place] [address] Phone: tel: fax: [address] [address] Referral ID Status Reason Start Date Expiration Date Visits Re quested Visits Authorized [id number] Closed 01/30/2024 02/28/2025 1 1 Encounter Details Date Type Department Care Team (Latest Contact Info) Description 02/08/2024 8:44 AM CDT - 02/08/2024 11:59 PM CDT Hospital Encounter [facility] [address] [place] [address] Palpitations Discharge Disposition: Discharge to home or self [...] on file 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 Gender Identity Not on file Sexual Orientation Not on file documented as of this encounter Medications at Time of Discharge azelastine 205.5 mcg (0.15 %) spray,non-aeros ol SPRAY 1 SPRAY INTO EACH NOSTRIL TWICE A DAY 08/01/2021 calcium carbonate (CALCIUM 600 ORAL) Take by mouth 2 (two) times a day cholecalciferol , vitamin D3, (VITAMIN D3 ORAL) Take by mouth clindamycin (CLEOCIN) 2 % vaginal cream INSERT ONE APPFUL VAGINALLY EVERY DAY AT BEDTIME FOR 3 DAYS 01/05/2024 cyclobenzaprine (FLEXERIL) 10 mg tablet Take 1 [...] (ketamine, bulk,) 100 % powder 3 10/01/2022 meloxicam (MOBIC) 15 mg tablet Take 1 tablet (15 mg total) by mouth daily 08/04/2023 NARCAN 4 mg/actuation spray,non-aeros ol 10/02/2019 pregabalin [...] BY MOUTH EVERY DAY 30 tablet 11 07/15/2023 4 irbesartan (AVAPRO) 75 mg tablet TAKE 2 TABLETS BY MOUTH DAILY 60 tablet 5 11/15/2023 4 lubiprostone (AMITIZA) 8 mcg capsule Take 1 capsule (8 mcg total) by mouth 2 (two) times a day with meals 4 metoprolol tartrate (LOPRESSOR) 50 mg immediate release tablet TAKE 1 TABLET BY MOUTH TWICE A DAY 60 tablet 11 10/20/2022 4 zolpidem (AMBIEN) 10 mg tablet Take 1 tablet (10 mg total) by mouth nightly 30 tablet 5 10/28/2023 4 documented as of this encounter Discharge Disposition Disposition Code Departure Means Destination Discharge to home or self care documented in this encounter Plan of Treatment Not on file documented as of this encounter Procedures Procedure Name Priority Date/Time Associated Diagnosis Comments [facility] - MOBILE CARDIAC TELEMETRY EVENT MONITOR Routine 02/08/2024 8:45 AM CDT Palpitations documented in this encounter Results * [facility] Mobile Cardiac Telemetry Event Monitor (02/08/2024 8:45 AM CDT) Anatomical Region Laterality Modality Electrocardiogra phy 02/08/2024 9:30 AM CDT Narrative 03/05/2024 5:43 PM CDT [address] [place] [address] EVENT MONITOR Patient Name: DALE BETANCUR J : 1965 Study Date: 02/08/2024 9:30:00 AM Gender: F Tech: ??Ref Provider: LIV VARGAS Height(Cm): ??BSA: Weight(Kg): ? Order Provider: LIV VARGAS - PROCEDURES: Event Report: Event Monitor [...] Signed By: Jasvir Choi 2024-03-05 17:42:42 CDT Procedure Note Jasvir Choi MD - 03/05/[address] [place] [address] EVENT MONITOR Patient Name: DALE BETANCUR J : 1965 Study Date: 02/08/2024 9:30:00 AM Gender: F Tech: Ref Provider: LIV VARGAS Height(Cm): BSA: Weight(Kg): Order Provider: LIV VARGAS - PROCEDURES: Event Report: Event Monitor Report. INDICATIONS: Palpitations R00.2. FINDINGS: CONCLUSIONS: 1. Patient had event monitor for 17 days and 5 hours Baseline rhythm was sinus rhythm and average heart rate 65 bpm Minimum hear rate 88 bpm and maximum heart rate 134 bpm There were ventricular ectopic beast (<1%) and supraventricular ectopicbeats ( <1%) There were no pauses more than 3 seconds and no episodes of atrialfibrillation There were no serious or critical events There were 12 patient patient triggered events for lightheadedness, chestpain and palpitation and underlying rhythm was sinus rhythm. Electronically Signed By: Jasvir Choi 2024-03-05 17:42:42 CDT Liv Vargas MD [facility] PROCED URES Final Result documented in this encounter Visit Diagnoses Diagnosis Palpitations documented in this encounter Care Teams Collar Baster Relationship Specialty Start Date End Date Margarito العراقي MD [address] [place] [address] PCP - General Family Medicine 09/04/20 Raymond Vela MD [address] [place] [address] Referring Physician Obstetrics and Gynecology 08/17/21 documented as of this encounter
--- OUTSIDE RECORDS SUMMARY | 2024-11-19 04:49 | XMS_ITS | Encounter Summary ---
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 Does not suggest heart failure or volume overload ----- Message ----- From: Interface, Lab Results In Sent: 01/17/2024 3:28 PM DIALYSIS CLINICAL MANAGER To: Liv Nelson MD YSIS CLINICAL MANAGER documented in this encounter Plan of Treatment Not on file documented as of this encounter Visit Diagnoses Not on filedocumented in this encounter Care Teams Wilton Weaver Relationship Specialty Start Date End Date Margarito العراقي MD [address] [place] [address] PCP - General Family Medicine 09/04/20 Raymond Vela MD [address] [place] [address] Referring Physician Obstetrics and Gynecology 08/17/21 documented as of this encounter
--- OUTSIDE RECORDS SUMMARY | 2024-11-19 04:49 | XMS_ITS | Encounter Summary ---
Author Organization [facility] Address [address] [place] [address] Phone Care Team Providers Care Industrial Designer Name Role Phone Margarito العراقي MD Primary Care Provider [phone] Raymond Vela MD Unavailable [phone] Reason for Visit * Reason Comments Osteoporosis Encounter Details Date Type Department Care Team (Late st Contact Info) Description 02/23/2022 3:20 PM CDT Office Visit [facility] [address] 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 Gender Identity Not on file Sexual Orientation Not on file documented as of this encounter Last Filed Vital Signs Vital Sign Reading Time Taken Comments Blood Pressure - - Pulse - - Temperature - - Respiratory Rate - - Oxygen Saturation - - Inhaled Oxygen Concentration - - Weight 77.1 kg (170 lb) 02/23/2022 3:11 PM CDT Height 149.9 cm (4' 11 ) 02/23/2022 3:11 PM CDT Body Mass Index 34.34 02/23/2022 3:11 PM CDT documented in this encounter Patient Instructions * Patient Instructions* Urbano Delacruz MD - 02/23/2022 3:20 PM CDT Bone Health Program Discharge and Information Sheet Contact: Call: [phone] or [phone] FAX: [phone] Name: Shivani Betancur Thank you for choosing the [facility] for consultation about your bone health! We hope that your experience with our program was informative, pleasant, and valuable. Following are a set of instructions that we ask you to read carefully and follow so that the recommenda tions you have received can be correctly implemented. PLAN: the following has been recommended as treatment for your bone health - Conservative Treatment Plan; Calcium, Vitamin D and Excercise -talk to your PCP about Wegovy ( weight los medications) - Calcium 9536-6064 mg daily, through a combination of diet and supplements - Vitamin D 0806-0012 IU daily - Weight bearing activity as [...] Up Appointment: Please stop at the front line leader to make a follow-up appointment in 1 year or call [phone]. Every attempt will be made to schedule [...] to give our office a call at [phone] option # 1. Bone Density Testing: To ensure the best quality of care, we strongly recommend you have all your follow up bone density tests done at our center. Bone density tests cannot be compared between different facilities. If another physician requests a bone density test for you, please let her/him know that your bone density is being monitored by the [facility]. If your other providers have questions or would like a report of your bone density scans, they can contact [facility] [phone] or Medical Records at [phone]. Important! Always remember to stop taking your calcium supplements 24 hours before you are scheduled to have your bone density test at your next visit. If you need to make changes to your follow-up appointment or are running late to your visit at the Bone Health Program, please contact us as soon as possible at [phone] ([facility]), or [phone] ([facility]), or [phone] ([facility]). We work on a very tight schedule and depending on the circumstances it may be necessary to resched ule your appointment if no other time slot is available on the same day. [facility] patient portal allows you to view your medical records, test results, personal information,request prescription renewals, review past appointments, request new ones and securely communicate online with our office. Ask at the receptionist scheduler desk about receiving an invite to join [facility] portal. For questions about accessing [facility] patient portal call [phone]. Feel free to visit our web site for further information on medications, diet, exercise and other things you can do to take charge of your bone health: [email or web address] Thank you for choosing the [facility]! documented in this encounter Progress Notes * Urbano Delacruz MD - 02/23/2022 3:20 PM CDT NAME: Shivani Betancur : 1965 DOS: HISTORY OF PRESENT ILLNESS: Patient presents for bone health follow-up. DIAGNOSES: 1. Osteoporosis based on an L4 asymptomatic vertebral compression fracture, age indeterminate on plain films, even though the patient's bone mineral density in June of 2015 L1 through L4 T score was -2.0 and left total hip T-score of 0.9 is in the osteopenic range. In February the patient sustaineda trimalleolar left ankle fracture from trivial trauma, status post ORIF in April of 2015. S/p remova l of her surgical hardware from her ORIF performed in 2017. It appears to have radiographically andclinically healed. There was some concern from the patient's orthopedician for intraop bone quality. The patient was initiated on Forteo in July of 2015-2017, transitioned to prolia therapy. 2. Vitamin D deficiency. History of prior elevations of alkaline phosphatase, though normalization on CMP dated 07/09/2015 prior to Forteo start. 3. HTN 4. NEO 5. Obesity INTERVAL MEDICAL HISTORY: The patient is a very pleasant 56 year-old, postmenopausal, female. She reports no interval falls or fractures since her last visit. Prior falls 2 years ago left lower ext- scar indentation DEXA: June of 2015 L1 through L4 T score was -2.0 and left total hip T-score of 0.9 is in the osteopenic range Treatment History: Forteo July 2015-2017. Prolia started on 11/03/18, 05/07/19, 12/14/19, 06/16/20. Reclast 02/02/21 Fractures: L4 asymptomatic vertebral compression fracture, age indeterminate on plain films, Trimalleolar left ankle fracture from trivial trauma, status post ORIF in April of 2015. S/p removalof her surgical hardware from her ORIF performed in 2017. It appears to have radiographically and clinically healed. There was some concern from the patient's orthopedician for intraop bone quality. Calcium/D: Currently on 4000IUs of vitamin D 2-3 x/week, 50 K weekly of ergocalciferol weekly. 600 mg calcium intermittently 2-3 times per week. Dairy - ice-cream , cheese. Activity : Walks 5-7 K steps/day goal of 10K hoping to be more active. Tobacco Use: Continues to smoke. She was depressed, due to her son moving out of the home-but notes that he visits 3 times week and she is well adjusted now. She is being very conscious regarding COVID. 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 ROS:thalia gilmore, feeling down , Has been compliant with her CPAP device. Unclear if she has benefit from her device. PAST MEDICAL HISTORY: 1. Severe osteoporosis based on an L4 compression fracture, age indeterminate, likely sustained between 2010 and 2013. 2. Left trimalleolar fracture status post ORIF in 2014 after trivial trauma. Agust of 2016 right third toe fracture about a year ago after bumping into a door or a wall. She states that this was confirmed by x-rays when she was seen in an urgent care. She was treated conservatively with a boot for about 8 weeks and eventually saw her orthopedician appears to have healed well. 3. Diverticulitis. 4. Fibromyalgia. 5. Irritable bowel syndrome. 6. Alcohol and tobacco use remotely. 7. Peptic ulcer disease. 8. Surgical menopause at 45 due to endometriosis, status post hysterectomy and oophorectomy. 9. Obstructive sleep apnea. 10. Vitamin D deficiency. PAST MEDICAL HISTORY: Past Medical History: Diagnosis Date ??? Disorder [...] nausea and vomiting) ??? Sleep apnea CPAP PAST SURGICAL HISTORY: Past Surgical History: Procedure Laterality Date ??? APPENDECTOMY 2007 Appendectomy ??? APPENDECTOMY 2006 Appendectomy ??? APPENDECTOMY Appendectomy ??? SECTION 1983 section ??? SECTION c section ??? HARDWARE REMOVAL ??? LAPAROSCOPIC CHOLECYSTECTOMY 2013 laparoscopic cholecystectomy ??? OTHER SURGICAL HISTORY 1988 : ??? OTHER SURGICAL HISTORY 1991 : ??? OTHER SURGICAL HISTORY 2003 Cryoablation ??? OTHER SURGICAL HISTORY 1982 : ??? OTHER SURGICAL HISTORY 2007 lap. for endometriosis ??? OTHER SURGICAL HISTORY Chlecystectomy ??? OTHER SURGICAL HISTORY laparascopic abdominal surgery ??? OTHER SURGICAL HISTORY 5 mm punch biopsy skin lesion to left axilla / office procedure ??? OTHER SURGICAL HISTORY rt ankle orif ??? TOTAL ABDOMINAL HYSTERECTOMY W/ BILATERAL SALPINGOOPHORECTOMY 2009 hysterectomy: ADE/BSO ??? VAGINAL HYSTERECTOMY 2009 Hysterectomy, vaginal ACTIVE PROBLEMS: Patient Active Problem List Diagnosis ??? Hypertension ??? Depression ??? Disorder of pelvis ??? Fibrositis ??? Chronic cholecystitis ??? Goiter ??? Insomnia ??? Osteoporosis ??? Skin lesion ??? Abdominal hernia ??? Precordial pain ??? Obstructive sleep apnea syndrome ??? Painful orthopaedic hardware (CMS/HCC) ??? Right ankle pain ??? Diverticulosis ??? Gastro-esophageal reflux disease without esophagitis ??? Ptosis of eyelid ??? Umbilical hernia without obstruction or gangrene ??? Ventral hernia without obstruction or gangrene ??? Lumbago ??? Episodic tension-type headache ??? Vitamin D deficiency disease ??? Osteopenia ??? Obesity ??? Pain in female pelvis ??? Pain in shoulder ??? Elevated cortisol level (CMS/HCC) ??? Atypical migraine ??? Anaclitic depression ??? Fibromyalgia ??? Abdominal pain ??? Constipation ??? Diverticulosis of intestine without perforation or abscess without bleeding ??? Need for ulyuvqlveg-ebohyht-fjmzuyjdi (Tdap) vaccine ??? Breast cancer screening ??? Shaking ??? Poison shala dermatitis ??? Seizure-like activity (CMS/HCC) ??? Brain mass CURRENT MEDICATIONS: Current Outpatient Prescriptions: ??? AFLURIA QUAD [id number] 60 mcg/0.5 mL suspension, , Disp: , Rfl: ??? atorvastatin (LIPITOR) 20 mg tablet, TAKE ONE TABLET BY MOUTH ONCE DAILY, Disp: 90 tablet, Rfl:1 ??? azelastine 0.15 % (205.5 mcg) spray,non-aerosol, SPRAY 1 SPRAY INTO EACH NOSTRIL TWICE A DAY (Patient taking differently: SPRAY 1 SPRAY INTO EACH NOSTRIL Nightly), Disp: 30 mL, Rfl: 3 ??? calcium carbonate-vitamin D3 (CALCIUM 500 + D) 1,250mg (500mg elemental) - 200 units per tablet, , Disp: , Rfl: ??? cyclobenzaprine (FLEXERIL) 10 mg tablet, Take 10 mg by mouth 3 (three) times a day as needed. ,Disp: , Rfl: ??? DULoxetine DR (CYMBALTA) 30 mg capsule, , Disp: , Rfl: ??? ECOTRIN LOW STRENGTH 81 mg tablet, TAKE ONE TABLET BY MOUTH ONCE DAILY, Disp: 90 tablet, Rfl: 1 ??? ergocalciferol (VITAMIN D) 50,000 unit capsule, TAKE ONE CAPSULE ONCE A WEEK FOR 8 WEEKS, Disp:, Rfl: ??? HYDROcodone-acetaminophen (NORCO) 5-325 mg per tablet, Take 1 tablet by mouth every 6 (six) hours as needed. , Disp: , Rfl: 0 ??? isosorbide mononitrate ER (IMDUR) 60 mg 24 hr tablet, TAKE ONE TABLET BY MOUTH ONCE DAILY, Disp: 90 tablet, Rfl: 1 ??? lubiprostone (AMITIZA) 24 mcg capsule, Take 24 mcg by mouth daily with breakfast., Disp: , Rfl: ??? nebivolol (BYSTOLIC) 10 mg tablet, Take 1 tablet (10 mg total) by mouth daily., Disp: 30 tablet, Rfl: 0 ??? hoevlwlw-gmwuabuzu-cthfieyogicfh (MAXITROL) 3.5mg/mL-10,000 unit/mL-0.1 % ophthalmic suspension, , Disp: , Rfl: ??? pregabalin (LYRICA) 75 mg capsule, take 1 capsule by oral route 2 times every day (Patient taking differently: Take 75 mg by mouth 3 (three) times a day. ), Disp: 0, Rfl: 0 ??? zolpidem (AMBIEN) 5 mg tablet, Take 1 tablet (5 mg total) by mouth nightly as needed for sleep., Disp: 30 tablet, Rfl: 1 ??? xrxvewwgdyjbs-qlmbkco-qwyycwao (EXCEDRIN MIGRAINE) 250-250-65 mg per tablet, 1-2 per week, Disp: , Rfl: ??? alendronate (FOSAMAX) 70 mg tablet, , Disp: , Rfl: ??? DULoxetine DR (CYMBALTA) 60 mg capsule, take 1 capsule by oral route (Patient not taking: Reported on 10/16/2018 ), Disp: 90, Rfl: 0 ??? estradiol (ESTRACE) 0.01 % (0.1 mg/gram) vaginal cream, INSERT 1/2 TO 1 GRAM VAGINALLY 1 TO 2 TIMES PER WEEK (Patient not taking: Reported on 10/16/2018 ), Disp: 42.5, Rfl: 0 ??? omeprazole (PriLOSEC) 40 mg capsule, TAKE ONE CAPSULE BY MOUTH ONCE DAILY (Patient not taking: Reported on 10/16/2018), Disp: 30 capsule, Rfl: 0 ??? pen needle, diabetic (BD ULTRA-FINE MINI PEN NEEDLE) 31 gauge x 3/16 needle, use one needle daily with Forteo Pen, Disp: , Rfl: ??? predniSONE (DELTASONE) 10 mg tablet, , Disp: , Rfl: ??? triamcinolone (KENALOG) 0.1 % cream, , Disp: , Rfl: ALLERGIES: Allergies Allergen Reactions ??? Ciprofloxacin Shortness of [...] only Reaction: Itching, Nausea, ??? Lisinopril Cough FAMILY HISTORY: Family History Problem Relation Age [...] Coronary artery disease; ??? Stroke Other Stroke; VITAL SIGNS: Vitals Ht 149.9 cm (4' 11 ) Wt 77.1 kg (170 lb) BMI 34.34 kg/m?? PHYSICAL EXAM: Physical Exam HENT: Head: Normocephalic and atraumatic. Eyes: Conjunctiva/sclera: Conjunctivae normal. Pupils: Pupils are equal, round, and reactive to light. Cardiovascular: Rate and Rhythm: Normal rate and regular rhythm. Heart sounds: Normal heart sounds. Pulmonary: Effort: Pulmonary effort is normal. Breath sounds: Normal breath sounds. Abdominal: General: Bowel sounds are normal. Palpations: Abdomen is soft. Musculoskeletal: General: Normal range of motion. Cervical back: Normal range of motion and neck supple. Skin: General: Skin is warm and dry. Neurological: Mental Status: She is alert and oriented to person, place, and time. Gait: Gait is intact. Psychiatric: Mood and Affect: Mood and affect normal. Cognition and Memory: Memory normal. Judgment: Judgment normal. MINERAL DENSITY OF THE LUMBAR SPINE Bone Mineral Density (BMD) of the lumbar spine was measured from L1-L4 and the average density was calculated to be 1.003 gm/cm2. This corresponds to a T-score (standard deviations from the mean of young adults) of -0.4. When compared to the previous study of 10/27/20 there has been no significant changes in bone density. BONE MINERAL DENSITY OF THE PROXIMAL FEMUR Bone Mineral Density (BMD) of the left hip total was found to be 1.025 gm/cm2. This corresponds to a T-score standard deviations from the mean of young adults of 0.7. Femoral neck is 0.822 gm/cm2 with a T-score (standard deviations from the mean of young adults) of -0.2. When compared to the previous study of 10/27/20 there has been no significant changes in bone density. ??BONE MINERAL DENSITY OF THE FOREARM Bone Mineral density (BMD) of the left proximal 1/3 of the radius measures 0.632 gm/cm2. This corresponds to a T-score (standard deviations from the mean of young adults) of -1.0. There is no previous study available for comparison. A forearm bone density study was performed in addition to the routine study per physicians request SUMMARY: Bone mineral density is near the young adult normal mean with no increased risk for fracture. There has been no significant changes in bone density since previous measurement. TBS- 1.224 TBS score >1.35 normal TBS score 1.2-1.35 partially degraded TBS Score <1.2 degraded ?? LABS: Recent Results (from the past 1008 hour(s)) Basic metabolic panel Collection Time: 09/13/18 8:18 AM Result Value Ref Range Glucose 117 (H) 65 - 99 mg/dL BUN 12 7 - 25 mg/dL Creatinine 0.56 0.50 - 1.05 mg/dL eGFR NON-AFR. [place]I 106 > OR = 60 mL/min/1.73m2 EGFR 123 > OR = 60 mL/min/1.73m2 BUN/creat ratio NOT APPLICABLE 6 - 22 (calc) Sodium 140 135 - 146 mmol/L Potassium, pl 4.8 3.5 - 5.3 mmol/L Chloride 106 98 - 110 mmol/L CO2 29 20 - 32 mmol/L Calcium 9.5 8.6 - 10.4 mg/dL Cortisol AM Collection Time: 09/13/18 8:18 AM Result Value Ref Range Cortisol, AM 0.6 (L) mcg/dL Lipid panel Collection Time: 10/11/18 1:50 PM Result Value Ref Range Cholesterol 133 <200 mg/dL HDL 56 >50 mg/dL Triglycerides 133 <150 mg/dL LDL 56 mg/dL (calc) Chol/HDL ratio 2.4 <5.0 (calc) Non-HDL, (LDL+VLDL) 77 <130 mg/dL (calc) ASSESSMENT AND PLAN: This is a 56-year-old, postmenopausal, female with bone mineral densities that have been in the osteopenic range, but clinically osteoporotic based on a prior L4 vertebral compression fracture that was age indeterminate and on radiographs performed in May, but likely sustained between 2010 and 2013, as well as a trimalleolar fracture of the right lower extremity in April of 2015 after a minor trauma. The patient had received 1 dose of IV Reclast in September of 2014, but given this interval trimalleolar fracture and the concern from the patient's treating orthopedician of poor intraop bone quality, the patient was transitioned to Forteo therapy. Forteo was initiated in 2014. She completed therapy in August of 2017 [...] 05/2020 transitioned to reclast 02/02/21 . PLAN: BMD is stable overall 11% improvement from 2013 baseline at the hip, and a 13% improvement at the spine with sequential anabolic/antiresorptive therapy. No further pharmacologic treatment will continue to monitor clinically and BMD. Counseled smoking cessation Reviewed the goal is 1200mg of calcium per day preferably through dietary sources Continue 50 K weekly Ergo- D level 49. Engage in weight bearing activity as tolerated. Hand outs provided to patient. Will f/u in 1yr with Rpt BMD. (2) Screen for [place]'s given her young age, bone densities, and her other constellation of symptoms including weight gain, fatigue, centri- pedal obesity, dexamethasone suppression test to rule outthe possibility of subclinical [place]'s. Dex supressiont test negative. Am cortisol 0.6 (3) HTN- weight loss, DASH diet, decrease ETOH and smoking cessation. Thank you for sending your patient to the [facility] at [facility]. Please let me know if I can be of any more assistance. If you have any questions or concerns please do not hesitate to give me a call. documented in this encounter Plan of Treatment Not on file documented as of this encounter Results * Vitamin D 25 hydroxy (02/23/2022 5:05 PM CDT) [facility] Vitamin D 25-OH 49 30 - 80 ng/mL [facility] Blood 02/23/2022 5:05 PM CDT 02/23/2022 5:15 PM CDT Urbano Delacruz MD LAB BLOOD ORDERABLES Final Resu lt Performing Organization Address City/[facility] Co de Phone Number [facility] [place] [address] * Basic metabolic panel (02/23/2022 5:05 PM CDT) Sodium 140 135 - 145 mmol/L [facility] Potassium, pl 4.0 3.3 - 4.9 mmol/L [facility] Chloride 103 97 - 110 mmol/L [facility] CO2 30 22 - 32 mmol/L [facility] Anion gap 7 2 - 15 mmol/L [facility] BUN 22 8 - 25 mg/dL [facility] Creatinine 0.91 0.60 - 1.10 mg/dL [facility] Glucose 96 70 - 199 mg/dL [facility] Comment: Interpretive Data Fasting glucose >/= 126 [...] classification and Diagnosis of Diabetes Diabetes Care 2017;40 (Suppl. 1):S11. Current interpretive data was last revised 2017. Calcium 9.1 8.5 - 10.3 mg/dL [facility] Blood 02/23/2022 5:05 PM CDT 02/23/2022 5:15 PM CDT Urbano Delacruz MD LAB BLOOD ORDERABLES Final Resu lt Performing Organization Address [facility] Co de Phone Number [facility] [place] [address] documented in this encounter Visit Diagnoses Diagnosis Age-related osteoporosis without current pathological fracture- Primary documented in this encounter Historical Medications * This list may reflect changes made after this encounter. meloxicam (MOBIC) 15 mg tablet meloxicam 15 mg tablet 3 added in this encounter Care Teams Industrial Designer Relationship Specialty Start Date End Date Margarito العراقي MD [address] [address] PCP - General Family Medicine 09/04/20 Raymond Vela MD [address] [place] [address] Referring Physician Obstetrics and Gynecology 08/17/21 documented as of this encounter
--- OUTSIDE RECORDS SUMMARY | 2024-11-19 04:49 | XMS_ITS | Encounter Summary ---
Author Organization [facility] Address [address] [place] [address] Care Team Providers Care Pipe Production Worker Name Role Phone Margarito العراقي MD Primary Care Provider [phone] Raymond Vela MD Unavailable [phone] Encounter Details Date Type Department Care Team (Late st Contact Info) Description 06/30/2022 Telephone [facility] [address] [place] [address] Corina Zambrano, BENEDICT [address] [facility] [address] [place] [address] Social History Tobacco Use Types Packs/Day Years [...] on file 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 Will mail letter. * Telephone Encounter - Radha Sultana MA - 07/01/2022 9:33 AM CDT Voicemail not set up. Will try again later. * Telephone Encounter - Radah Sultana MA - 06/30/2022 2:48 PM CDT Attempted to reach patient. Voicemail not set up yet. Will try again later. * Telephone Encounter - Corina Zambrano NP - 06/30/2022 2:43 PM CDT . documented in this encounter Plan of Treatment Not on file documented as of this encounter Visit Diagnoses Not on filedocumented in this encounter Care Teams Pipe Production Worker Relationship Specialty Start Date End Date Margarito العراقي MD [address] [place] [address] PCP - General Family Medicine 09/04/20 Raymond Vela MD [address] [place] [address] Referring Physician Obstetrics and Gynecology 08/17/21 documented as of this encounter
--- OUTSIDE RECORDS SUMMARY | 2024-11-19 04:49 | XMS_ITS | Encounter Summary ---
Author Organization [facility] Address [address] [place] [address] Care Team Providers Care Proposal Rep Name Role Phone Margarito العراقي MD Primary Care Provider [phone] Raymond Vela MD Unavailable [phone] Encounter Details Date Type Department Care Team (Late st Contact Info) Description 01/12/2024 Orders Only [place] [employer]im[facility] at [address] [place] [address] Liv Nelson MD [address] [place] [address] [address] [place], [place] [id number] Swelling (Primary Dx) Social History Tobacco Use Types [...] on file 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 Dyspnea in [...] Heart J. 2006:27:330-337. 2. Estee RW, Deepak AM. J. AM Onel Cardiol: Cardiovasc Imag. 2009;2: 216- 225. Interpretive Data Last Revised Date: 2018. Blood 01/17/2024 2:10 PM DISTILLERY MANAGER 01/17/2024 2:49 PM DISTILLERY MANAGER us Liv Nelson MD LAB BLOOD ORDERABLES Final Result [facility] ([place] [address] [facility] Department [place] [address] documented in this encounter Visit Diagnoses Diagnosis Swelling- Primary Localized superficial swelling, mass, or lump documented in this encounter Care Teams Proposal Rep Relationship Specialty Start Date End Date Margarito العراقي MD [address] [address] PCP - General Family Medicine 09/04/20 Raymond Vela MD [address] [place] [address] Referring Physician Obstetrics and Gynecology 08/17/21 documented as of this encounter
--- OUTSIDE RECORDS SUMMARY | 2024-11-19 04:49 | XMS_ITS | Encounter Summary ---
Author Organization [facility] Healthcare Address [address] [place] [address] Care Team Providers Care Typewriter Ribbon Winder Name Role Phone Margarito العراقي MD Primary Care Provider [phone] Raymond Vela MD Unavailable [phone] Reason for Referral * Diagnostic Imaging (Routine) - Closed Specialty Diagnoses / Procedures Referred By Contac t Referred To Contact Diagnoses Left hand pain Procedures XR Hand Left 3 or More Views Nely Carver MD [address] [id number] [place] [address] Phone: tel: fax: [address] [phone] Referral ID Status Reason Start Date Expiration Date Visits Re quested Visits Authorized [id number] Closed 09/07/2021 10/07/2022 1 1 RMEDIATE DESIGNER Reason for Visit * Diagnostic Imaging (Routine) - Closed Specialty Diagnoses / Procedures Referred By Contac t Referred To Contact Diagnoses Left hand pain Procedures XR Hand Left 3 or More Views Nely Carver MD [address] [facility] [id number] [place] [address] Phone: tel: fax: [address] [phone] Referral ID Status Reason Start Date Expiration Date Visits Re quested Visits Authorized [id number] Closed 09/07/2021 10/07/2022 1 1 Encounter Details Date Type Department Care Team (Late st Contact Info) Description 10/02/2021 11:58 AM INTERMEDIATE DESIGNER - 10/02/2021 11:59 PM INTERMEDIATE DESIGNER Hospital Encounter [facility] [address] [place] [address] Nely Carver MD [address] [id number] [place] [address] Left hand pain Discharge Disposition: Discharge to home or self [...] on file 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:46 AM INTERMEDIATE DESIGNER Gender Identity Not on file Sexual Orientation Not on file documented as of this encounter Medications at Time of Discharge azelastine 205.5 mcg (0.15 %) spray,non-aerosol SPRAY 1 SPRAY INTO EACH NOSTRIL TWICE A DAY 1 cyclobenzaprine (FLEXERIL) 10 mg tablet Take 1 tablet (10 mg total) by mouth 3 (three) times a day as needed [address] (CYMBALTA) 30 mg capsule 1 ergocalciferol (VITAMIN D) 50,000 unit capsule ergocalciferol (vitamin D2) 1,250 mcg (50,000 unit) capsule TAKE 1 CAPSULE BY MOUTH ONCE PER WEEK estradioL (ESTRACE) 0.01 % (0.1 mg/gram) vaginal cream 1 HYDROcodone-aceta minophen (NORCO) 5-325 mg per tablet Take 1 tablet by mouth 3 (three) times a day 1 NARCAN 4 mg/actuation spray,non-aerosol 9 pregabalin (LYRICA) 75 mg capsule Take 1 capsule (75 mg total) by mouth daily 0 lubiprostone (AMITIZA) 24 mcg capsuleIndication s:chronic idiopathic constipation Take 1 capsule (24 mcg total) by mouth 2 (two) times a day with meals 60 capsule 11 1 09/23/20 22 aspirin 81 mg enteric coated tablet TAKE ONE TABLET BY MOUTH ONCE DAILY 90 tablet 1 0 02/24/20 23 atorvastatin (LIPITOR) 20 mg tablet TAKE ONE TABLET BY MOUTH ONCE DAILY 90 tablet 1 0 05/07/20 24 cholecalciferol (VITAMIN D-3) 1000 unit tablet Take 1,000 Units by mouth daily 02/24/20 23 clobetasoL (TEMOVATE) 0.05 % ointment clobetasol 0.05 % topical ointment APPLY THIN COAT TO AFFECTED AREA TWICE A DAY 02/24/20 23 denosumab (PROLIA) 60 mg/mL syringe Inject 60 mg under the skin every 6 (six) months 02/24/20 23 hydroCHLOROthiazi de (HYDRODIURIL) 25 mg tablet Take 1 tablet (25 mg total) by mouth daily 90 tablet 3 1 06/28/20 22 irbesartan (AVAPRO) 75 mg tablet Take 2 tablets (150 mg total) by mouth daily 90 tablet 3 1 05/03/20 22 metoprolol tartrate (LOPRESSOR) 50 mg immediate release tablet Take 1 tablet (50 mg total) by mouth 2 (two) times a day 180 tablet 3 1 10/20/20 22 rOPINIRole (REQUIP) 1 mg tablet 1 mg 0 06/30/20 22 zoledronic fsob-ozytwkjA-lvt er (RECLAST) 5 mg/100 mL piggyback IV every 12 months 1 02/24/20 23 zolpidem (AMBIEN) 10 mg tabletIndications :Sleep-Onset Insomnia Take 1 tablet (10 mg total) by mouth nightly as needed for sleep 30 tablet 5 1 12/31/19 22 documented as of this encounter Discharge Disposition Disposition Code Departure Means Destination Discharge to home or self care documented in this encounter Plan of Treatment Not on file documented as of this encounter Procedures Procedure Name Priority Date/Time Associated Diagnosis Comments XR HAND LEFT 3 OR MORE VIEWS Schedule Routine, Read Routine (OP Routine) 10/02/2021 12:10 PM INTERMEDIATE DESIGNER Left hand pain documented in this encounter Results * XR Hand Left 3 or More Views (10/02/2021 12:10 PM INTERMEDIATE DESIGNER) Anatomical Region Laterality Modality Upper Extremities, Hand Left Computed Radiography 10/02/2021 12:1 7 PM INTERMEDIATE DESIGNER Narrative 10/02/2021 12:20 PM INTERMEDIATE DESIGNER EXAM DESCRIPTION: ?? XR HAND LEFT 3 OR MORE VIEWS REASON FOR STUDY: ?? hand pain ??Injury to the left hand in 2018- pt states fx to the thumb ??No recent injuries ?? Pain on the livingston aspect that radiates to the lateral 1st digit of the left hand ?? No hx of surgery ?? TECHNIQUE: ?? Frontal, lateral, and oblique radiographic views acquired of the left hand. COMPARISON: ?? 03/07/2019 FINDINGS: Normal bony alignment. ??No acute fracture seen. ??Moderate 1st carpometacarpal joint osteoarthritis. ??Mild multi digit interphalangeal joint osteoarthritis. ?? No gross soft tissue abnormality. IMPRESSION: ?? 1. ??Moderate 1st carpometacarpal joint osteoarthritis. THIS IS AN ELECTRONICALLY VERIFIED FINAL REPORT 10/02/2021 12:20 PM - Electronically signed by Arnol Newton M.D. AG: [facility] D: ??10/02/2021 12:20 PM T: ??10/02/2021 12:20 PM Report ID: [id number] Reading Location: ??[id number] Procedure Note Arnol Newton MD - 10/02/2021 EXAM DESCRIPTION: XR HAND LEFT 3 OR MORE VIEWS REASON FOR STUDY: hand pain Injury to the left hand in 2018- pt statesfx to the thumb No recent injuries Pain on the livingston aspect that radiatesto the lateral 1st digit of the left hand No hx of surgery TECHNIQUE: Frontal, lateral, and oblique radiographic views acquired ofthe left hand. COMPARISON: 03/07/2019 FINDINGS: Normal bony alignment. No acute fracture seen. Moderate 1stcarpometacarpal joint osteoarthritis. Mild multi digit interphalangeal jointosteoarthritis. No gross soft tissue abnormality. IMPRESSION: 1. Moderate 1st carpometacarpal joint osteoarthritis. THIS IS AN ELECTRONICALLY VERIFIED FINAL REPORT 10/02/2021 12:20 PM - Electronically signed by Arnol Newton M.D. AG: [facility]ANNING Report ID: [id number] Reading Location: [id number] us Nely Carver MD IMG XR PROCEDURES Fi nal Result documented in this encounter Visit Diagnoses Diagnosis Left hand pain Pain in soft tissues of limb documented in this encounter Care Teams Typewriter Ribbon Winder Relationship Specialty Start Date End Date Margarito العرايق MD [address] [address] PCP - General Family Medicine 09/04/20 Raymond Vela MD [address] [place] [address] Referring Physician Obstetrics and Gynecology 08/17/21 documented as of this encounter
--- OUTSIDE RECORDS SUMMARY | 2024-11-19 04:49 | XMS_ITS | Encounter Summary ---
Author Organization [facility] Healthcare Address [address] [place] [address] Care Team Providers Care Gas Worker Name Role Phone Margarito العراقي MD Primary Care Provider [phone] Raymond Vela MD Unavailable [phone] Encounter Details Date Type Department Care Team (Late st Contact Info) Description 08/13/2022 3:35 PM CDT Lab [facility] 1 [place] [address] Jones Younger MD [address] [place] [address] [address] [facility] [place] [address] Discharge Disposition: Discharge to home or self [...] on file 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:46 AM JINRIKISHA DRIVER Gender Identity Not on file Sexual Orientation Not on file documented as of this encounter Discharge Disposition Disposition Code Departure Means Destination Discharge to home or self care documented in this encounter Plan of Treatment Not on file documented as of this encounter Procedures Procedure Name Priority Date/Time Associated Diagnosis Comments EGFR Routine 08/13/2022 3:47 PM CDT DIFFERENTIAL AUTO Routine 08/13/2022 3:4 7 PM CDT CBC WITH AUTO DIFFERENTIAL Routine 08/13/2022 3:47 PM CDT ACETYLCHOLINE RECEPTOR, BINDING AB Routine 08/13/2022 3:47 PM CDT COMPREHENSIVE METABOLIC PANEL Routine 08/13/2022 3:47 PM CDT documented in this encounter Results * eGFR (08/13/2022 3:47 PM CDT) eGFR 102 mL/min/1. 73 m2 [facility]) Comment: [...] interpretive data was last reviewed 2021. Blood 08/13/2022 3:47 PM CDT 08/13/2022 3:58 PM CDT us Jones Younger MD LAB BLOOD ORDERABLES Fi nal Result [facility] 1 [facility] Department [place] [address] * Differential, auto (08/13/2022 3:47 PM CDT) Neutrophil abs 4.6 1.7 - 6.5 K/cumm [facility] [place]) Imm gran abs 0.0 0.0 - 0.1 K/cumm [facility] [place]) Lymphocyte abs 2.9 0.8 - 3.3 K/cumm [facility] [place]) Monocyte abs 0.6 0.2 - 0.8 K/cumm [facility] [place]) Eosinophil abs 0.2 0.0 - 0.5 K/cumm [facility] ([place]) Basophil abs 0.0 0.0 - 0.1 K/cumm [facility] ([place]) Neutrophil pct 55.6 % [facility] ([place] Comment: Interpretive Data Percent cell count reference ranges are not reported, since discordance with absolute values may lead to misinterpretation of CBC data. Current Interpretive Data was last revised on 2018. Imm gran pct 0.2 % [facility] ([place]) Comment: Interpretive Data Percent cell count reference ranges are not reported, since discordance with absolute values may lead to misinterpretation of CBC data. Current Interpretive Data was last revised on 2018. Lymphocyte pct 35.2 % [facility] ([place]) Comment: Interpretive Data Percent cell count reference ranges are not reported, since discordance with absolute values may lead to misinterpretation of CBC data. Current Interpretive Data was last revised on 2018. Monocyte pct 6.7 % [facility] ([place]) Comment: Interpretive Data Percent cell count reference ranges are not reported, since discordance with absolute values may lead to misinterpretation of CBC data. Current Interpretive Data was last revised on 2018. Eosinophil pct 1.8 % [facility] ([place]) Comment: Interpretive Data Percent cell count reference ranges are not reported, since discordance with absolute values may lead to misinterpretation of CBC data. Current Interpretive Data was last revised on 2018. Basophil pct 0.5 % [facility] ([place]) Comment: Interpretive Data Percent cell count reference ranges are not reported, since discordance with absolute values may lead to misinterpretation of CBC data. Current Interpretive Data was last revised on 2018. Blood 08/13/2022 3:47 PM CDT 08/13/2022 3:58 PM CDT Jones Younger MD LAB BLOOD ORDERABLES Fi nal Result [facility] ([place]) 1 [facility] Department [place] [address] * Comprehensive metabolic panel (08/13/2022 3:47 PM CDT) Sodium 141 135 - 145 mmol/L [facility] ([place]) Potassium, pl 3.6 3.3 - 4.9 mmol/L [facility] ([place]) Chloride 103 97 - 110 mmol/L [facility] ([place]) CO2 29 22 - 32 mmol/L [facility] ([place]) Anion gap 9 2 - 15 mmol/L [facility] ([place]) BUN 15 8 - 25 mg/dL [facility] ([place]) Creatinine 0.68 0.60 - 1.10 mg/dL [facility] ([place]) Glucose 93 70 - 199 mg/dL [facility] ([place]) [...] interpretive data was last revised 2017. Calcium 9.4 8.5 - 10.3 mg/dL [facility] ([place]) Bilirubin, total 0.4 0.1 - 1.2 mg/dL [facility] ([place]) Protein, pl 6.8 6.5 - 8.5 g/dL [facility] ([place]) Albumin 4.3 3.5 - 5.0 g/dL [facility] ([place]) Alk phos 129 40 - 130 Units/L [facility] ([place]) ALT 15 7 - 45 Units/L [facility] ([place]) AST 15 10 - 45 Units/L [facility] ([place]) Blood 08/13/2022 3:47 PM CDT 08/13/2022 3:58 PM CDT us Jones Younger MD LAB BLOOD ORDERABLES Fi nal Result [facility] ([place]) 1 [facility] Department [place] [address] * CBC with auto differential (08/13/2022 3:47 PM CDT) WBC 8.3 3.8 - 9.9 K/cumm [facility] ([place]) Hgb 13.2 11.9 - 15.5 g/dL [facility] ([place]) Hct 39.4 35.6 - 45.5 % [facility] ([place]) Plt 278 150 - 400 K/cumm [facility] ([place]) MPV 10.1 9.1 - 12.3 fL [facility] ([place]) RBC 4.27 3.90 - 5.20 M/cumm [facility] ([place]) MCV 92.3 81.3 - 96.4 fL [facility] ([place]) MCH 30.9 27.1 - 33.3 pg [facility] ([place]) MCHC 33.5 32.3 - 35.7 g/dL [facility] ([place]) RDW CV 13.2 11.1 - 14.9 % [facility] ([place]) RDW SD 45.1 35.7 - 48.1 fL [facility] ([place]) NRBC abs 0.00 0.00 - 0.01 K/cumm [facility] ([place]) Blood 08/13/2022 3:47 PM CDT 08/13/2022 3:58 PM CDT Jones Younger MD LAB BLOOD ORDERABLES Fi nal Result Performing Organization Address City/[facility]/ZIP Co de Phone Number [facility] [place] 1 [place] [address] * Acetylcholine receptor, binding AB (08/13/2022 3:47 PM CDT) Anti-acetylcholine receptor, binding 0.00 <=0.02 nmol/L [facility] ([place]) Comment: ADDITIONAL INFORMATION This test was developed and its performance characteristics determined by [facility] in a manner consistent with CLIA requirements. This test has not been cleared or approved by the U.S. Food and Drug Administration. Test Performed by: [facility] [place] [address] Dental Billing Specialist: Mendoza Verdugo M.D. Ph.D.; CLIA# [id number] Blood 08/13/2022 3:47 PM CDT 08/13/2022 3:58 PM CDT us Jones Younger MD LAB BLOOD ORDERABLES Fi nal Result Performing Organization Address City/[facility]/ZIP Co de Phone Number [facility] ([place]) 1 [facility] [place] [address] documented in this encounter Visit Diagnoses Not on filedocumented in this encounter Care Teams Gas Worker Relationship Specialty Start Date End Date Margarito العراقي MD [address] [place] [address] PCP - General Family Medicine 09/04/20 Raymond Vela MD [address] [place] [address] Referring Physician Obstetrics and Gynecology 08/17/21 documented as of this encounter
--- OUTSIDE RECORDS SUMMARY | 2024-11-19 04:49 | XMS_ITS | Encounter Summary ---
Author Organization [facility] Address [address] [place] [address] Phone Care Team Providers Care Vice President Of Customer Service Name Role Phone Margarito العراقي MD Primary Care Provider [phone] Raymond Vela MD Unavailable [phone] Reason for Visit * Reason Comments Follow-up Encounter Details Date Type Department Care Team (Late st Contact Info) Description 10/20/2022 3:00 PM SENIOR GRADUATE ADVISOR Office Visit [facility] 2 [facility][Note 3] A [address] [place] [id number] Venita Baptiste NP 2 [facility] [address] [place] [address] Carpal tunnel syndrome of left wrist (Primary Dx); Arthritis of carpometacarpal (CMC) joint of left thumb; Carpal tunnel syndrome of right wrist Social [...] file 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:46 AM SENIOR GRADUATE ADVISOR Gender Identity Not on file Sexual Orientation Not on file documented as of this encounter Progress Notes * Venita Baptiste, [facility] [employer] [facility] - 10/20/2022 3:00 PM CST Plastic & Reconstructive Surgery Progress Note HPI: Shivani Betancur has been seen in our clinic in the past for treatment of carpal tunnel syndrome withsteroid injections approximately 1 year ago. She returns today with reports of significant discomfort of her bilateral hands left being greater than right. She states that she is now awakening every night with numbness pain her hands. She also reports having swelling of her hands with persistent swelling of her left thenar eminence. When asked which fingers are numb she states that she has not had attention but believes all of them. O: There were no vitals taken for this visit. Gen: NAD, A&O x3 Hand Exam: Bilateral Strength - APB is normal, Bilaterally; Intrinsics are {normal, equal bilatearlly; Knitter Mechanic is normal, slightly weaker of left Neurological Exam: She believes she has decreased sensation from her baseline. During exam today has equal sensation bilaterally believes she has greater sensation to her 1st through 4th digits compared to 5th digit onleft. Positive Durkan's bilaterally + left elbow tinel Skin: Skin color, texture, turgor normal. No rashes or lesions Swelling: none except noted mild edema of left thenar eminence Warmth: no warmth Tenderness: She is noted tenderness with pressure of her left CMC joint and positive grind test. Perfusion: normal, no cyanosis, jaundice, pallor or bruising Mass: None ROM: Normal she is able to make a full fist and hold objects Deformity: None REVIEW OF LABORATORY AND RADIOGRAPHIC STUDIES: I reviewed imaging from her last visit (October 02, 2021) that showed moderate 1st CMC osteoarthritis. A/P: 57 y.o. female with recurring bilateral hand symptoms of carpal tunnel. On exam today she alsohas evidence of left ulnar nerve compression as well. She also has pain and edema from left CMC arthritis. She presents today with her of steroid injections to help control pain. We also discussed that she may want to consider surgical intervention as a more permanent solution. She states this time she would like to try nonsurgical intervention possible. We discussed steroid injections to her bilateral carpal tunnel and left CMC joint. We discussed risks including but not limited to infection, bruising and bleeding. She wished proceed with injections today. I have also recommended that she wear splints at night. At 1st she was hesitant to do this however explained that this can have decreased pain that awakens her at night she was more receptive to a splints at night. She states that she has a left splint that is given to her at her last visit and shewas given a right hand cool gel splint. She initially stopped wearing these as she thought it was causing swelling to her hands and is alsotried a number other splints. Upon questioning it appears she is been applying the splints very tightly and I discussed they do not need to be on tight but should be able to place 2 fingers beneath the splint. All of her questions were answered and she was instructed to contact the office if she has additional questions. Follow up: as needed Restriction: none I spent 30 minutes on this patient encounter which included review of medical records. Over half the time was spent with the patient face to face discussing the treatment plan, counseling and coordinating care. Venita Baptiste NP 10/20/22 4:25 PM This document was transcribed using voice recognition software without a human environmental protection forester. Itmay contain typographical, grammatical, and/or syntax errors. OR GRADUATE ADVISOR documented in this encounter Procedure Notes * Venita Baptiste NP - 10/20/2022 3:00 PM CST Procedures PROCEDURE: small Joint Steroid Injection - Left Wrist After discussing the risks (including bleeding, infection, damage to nearby structures including skin/tendon), benefits, alternatives, and expected post- injection course, verbal informed consent was obtained by the patient. The skin over the joint was cleaned with chloraprep A 27G needle was used to access the palmar aspect of the joint <1 ml of 1% lidocaine plain was injected into the soft tissue and joint The needle was left in place and 20 mg (0.5 ml) of kenalog 40 was injected into the joint The skin was wiped again with chloraprep and a Band-Aid was applied The patient tolerated the procedure well PROCEDURE: small Joint Steroid Injection - Right Wrist After discussing the risks (including bleeding, infection, damage to nearby structures including skin/tendon), benefits, alternatives, and expected post- injection course, verbal informed consent was obtained by the patient. The skin over the joint was cleaned with chloraprep A 27G needle was used to access the palmar aspect of the joint <1 ml of 1% lidocaine plain was injected into the soft tissue and joint The needle was left in place and 20 mg (0.5 ml) of kenalog 40 was injected into the joint The skin was wiped again with chloraprep and a Band-Aid was applied The patient tolerated the procedure well PROCEDURE: small Joint Steroid Injection - Left Thumb CMC After discussing the risks (including bleeding, infection, damage to nearby structures including skin/tendon), benefits, alternatives, and expected post- injection course, verbal informed consent was obtained by the patient. The skin over the joint was cleaned with chloraprep A 27G needle was used to access the dorsal aspect of the joint <1 ml of 1% lidocaine plain was injected into the soft tissue and joint The needle was left in place and 20 mg (0.5 ml) of kenalog 40 was injected into the joint The skin was wiped again with chloraprep and a Band-Aid was applied The patient tolerated the procedure well OR GRADUATE ADVISOR documented in this encounter Plan of Treatment Not on file documented as of this encounter Visit Diagnoses Diagnosis Carpal tunnel syndrome of left wrist- Primary Arthritis of carpometacarpal (CMC) joint of left thumb Carpal tunnel syndrome of right wrist documented in this encounter Administered Medications Inactive Administered Medications - up to 3 most recent administrations Medication Order MAR Action Action Date Dose Rate Site lidocaine (XYLOCAINE) 10 mg/mL (1 %) injection 15 mg 15 mg (1.5 mL), infiltration, Once, On Tue10/20/22 at 1700, For 1 dose, Indications: Administration of Local AnesthesiaIndications:Administratio n of Local Anesthesia Given 10/20/2022 4:22 PM SENIOR GRADUATE ADVISOR 15 mg triamcinolone (KENALOG) 40 mg/mL injection 60 mg 60 mg, other, Once, On Tue10/20/22 at 1700, For 1 doseIndications:Arthritis of carpometacarpal (CMC) joint of left thumb,Carpal tunnel syndrome of right wrist Given 10/20/2022 4:23 PM SENIOR GRADUATE ADVISOR 60 mg documented in this encounter Historical Medications * This list may reflect changes made after this encounter. Medication Sig Dispense Quantity Refills Last Filled Start D ate End Date ketamine HCl (ketamine, bulk,) 100 % powder 3 10/01/2022 gabapentin, bulk, 100 % powder 3 10/01/2022 added in this encounter Care Teams Vice President Of Customer Service Relationship Specialty Start Date End Date Margarito العراقي MD [address] [address] PCP - General Family Medicine 09/04/20 Raymond Vela MD [address] [place] [address] Referring Physician Obstetrics and Gynecology 08/17/21 documented as of this encounter
--- OUTSIDE RECORDS SUMMARY | 2024-11-19 04:49 | XMS_ITS | Encounter Summary ---
Author Organization [facility] Healthcare Address [address] [place] [address] Care Team Providers Care Population Health Manager Name Role Phone Margarito العراقي MD Primary Care Provider [phone] Raymond Vela MD Unavailable [phone] Reason for Visit * Auth/Cert (Routine) Specialty Diagnoses / Procedures Referred By Contac t Referred To Contact Diagnoses Encounter for screening colonoscopy Encounter for screening colonoscopy [Z12.11] Procedures [place] COLONOSCOPY FLX DX W/COLLJ SPEC WHEN PFRMD COLONOSCOPY Referral ID Status Reason Start Date Expiration Date Visits Re quested Visits Authorized [id number] 1 1 Encounter Details Date Type Department Care Team (Late st Contact Info) Description 02/23/2023 12:11 PM CDT Anesthesia Event [address] [address] Nelson Wallis MD [address] [place] [id number] [place] [address] [facility] [place] [address] Anesthesia Record Procedure Summary Procedure Name Responsible Anesthesiologist Anesthesia Start Time Anesthesia Stop Time COLONOSCOPY Nelson Wallis MD 02/23/23 1211 02/23/23 1223 Events Date Time Event Comment 02/23/2023 1125 1205 In Room 1211 An Start 1211 An Start Data 1212 Start Supplemental O2 1212 Patient Positioned Laterally 1212 An Induction The patient was reevaluated immediately before moderate or deep sedation use and before anesthesia induction. 1212 Anesthesia Ready 1213 Proc Start 1223 an stop data 1223 Proc Fin 1223 Handoff to RN I completed my handoff to the receiving nurse during which we: 1. Patient identified 2. Responsible provider identified 3. Pertinent medical history reviewed 4. Procedure type and surgical course discussed 5. Intraoperative anesthetic management and any significant issues discussed 6. Expectations and concerns for postop period discussed 7. Questions solicited from receiving nurse 8. Patient disposition at the time of handoff: PACU 1223 An Stop 1223 Release from care 1226 Out of Room Meds Name Total lidocaine (cardiac) syringe 2 % 100 mg propofol 200 mg sodium chloride 0.9% infusion 300 mL * Agents Name O2 * Blood No blood administrations on file. Lines, Drains, and Airways Type Details Placement Removal RETIRED Surgical Site 01/31/18; 1409; Right; Ankle; 10/23/24 (Retired LDA, Removed/Completed by [employer] Now with LDA Utility); 1213 (Retired LDA, Removed/Completed by [employer] Now with LDA Utility) 01/31/18 1409 by Estefania Ward 10/23/24 1213 by Discharge Provider, Automatic Peripheral IV Placement Date: 02/23/23; Placement Time: 1038; Catheter Size: 22 G; Orientation: Left; Location: Hand; Site Prep: Alcohol; Insertion Attempts: 3; Removal Date: 02/23/23; Removal Time: 1316 02/23/23 1038 by Nickolas Pedraza RN 02/23/23 1316 by Nickolas Pedraza RN documented in this encounter Social History Tobacco [...] on file 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 Gender Identity Not on file Sexual Orientation Not on file documented as of this encounter OR Notes * Anesthesia Postprocedure Evaluation - Zelalem Lackey CRNA - 02/23/2023 12:23 PM CDT Patient: Shivani Betancur Procedure Summary Date: 02/23/23 Room / Location: [facility] ENDOSCOPY ROOM 1 / [facility]COPY Anesthesia Start: 1211 Anesthesia Stop: 1223 Procedure: COLONOSCOPY Diagnosis: Encounter for screening colonoscopy (Encounter for screening colonoscopy [Z12.11]) Providers: Polina Rosa MD Responsible Provider: Nelson Wallis MD Anesthesia Type: general TIVA ASA Status: 3 Anesthesia Type: general TIVA Last vitals BP 142/93 Pulse 73 Temp 36.5 ??C (97.7 ??F) (Temporal) Resp 16 Anesthesia Post Evaluation Patient location during evaluation: PACU Patient participation: complete - patient participated Level of consciousness: fully awake Pain management: satisfactory to patient Airway patency: adequate and patent Cardiovascular status: acceptable Respiratory status: acceptable and nasal cannula Hydration status: acceptable Pt is: normothermic Nausea/Vomiting status: none No notable events documented. * Anesthesia Preprocedure Evaluation - Emeterio Saenz MD - 02/23/2023 11:03 AM CDT Images from the original note were not included. Anesthesia Evaluation Shivani Betancur is a 57 y.o. female Procedure(s): COLONOSCOPY Pre-Op Diagnosis Codes: * Encounter for screening colonoscopy [Z12.11] HISTORY Past Medical History Neurological + Psychiatric history - depression Cardiovascular + Hypertension + Hyperlipidemia Respiratory + Sleep apnea (NEO) Prescribed device: CPAP and PAP compliant. + Current smoker - Counseled to abstain from smoking the day of surgery. Patient refrained from smoking on day of surgery. Hepatic / Heme Hepatic/Heme system: negative Gastrointestinal + GERD - PRN medication use only. Asymptomatic. Renal / Renal/ system: negative Musculoskeletal/Pain + Chronic pain - fibromyalgia. + Chronic opioid use - daily. + Headaches - migraine headaches. Endocrine / Other + Thyroid disease (goiter) + Obesity (BMI >30) Comments: H/o Alcohol abuse Functional Capacity Functional capacity: 4-6 METs Review of Systems + chronic pain Patient Active Problem List Diagnosis ??? Essential hypertension ??? Depression ??? Disorder of pelvis ??? Fibrositis ??? Goiter ??? Insomnia ??? Osteoporosis ??? Abdominal hernia ??? Obstructive sleep apnea syndrome ??? Gastro-esophageal reflux disease without esophagitis ??? Ptosis of eyelid ??? Ventral hernia without obstruction or gangrene ??? Lumbago ??? Vitamin D deficiency disease ??? Osteopenia ??? Obesity ??? Pain in female pelvis ??? Pain in shoulder ??? Atypical migraine ??? Anaclitic depression ??? Fibromyalgia ??? Diverticulosis of intestine without perforation or abscess without bleeding ??? Smoking trying to quit ??? Alcohol abuse ??? Acute cystitis without hematuria ??? Chronic idiopathic constipation ??? Abnormal findings on diagnostic imaging of breast ??? Hyperlipidemia ??? Benign hypertension ??? Carpal tunnel syndrome of left wrist ??? Arthritis of carpometacarpal (CMC) joint of left thumb ??? Encounter for screening colonoscopy Past Medical History: Diagnosis Date ??? Disorder [...] 2006 Appendectomy ??? APPENDECTOMY Appendectomy ??? SECTION 1982 section ??? SECTION c section ??? COLONOSCOPY 12/2012 ??? HARDWARE REMOVAL ??? LAPAROSCOPIC CHOLECYSTECTOMY 2013 [...] ??? TOTAL ABDOMINAL HYSTERECTOMY W/ BILATERAL SALPINGOOPHORECTOMY 2008 hysterectomy: ADE/BSO ??? VAGINAL HYSTERECTOMY 2008 Hysterectomy, vaginal OB History No obstetric history on file. Allergies Allergen Reactions ??? Ciprofloxacin Shortness of [...] only Reaction: Itching, Nausea, ??? Lisinopril Cough Taking? Last Dose Start Date End Date Provider atorvastatin (LIPITOR) 20 mg tablet 02/22/2023 05/06/20 -- Mendoza Parker MD TAKE ONE TABLET BY MOUTH ONCE DAILY azelastine 205.5 mcg (0.15 %) spray,non-aerosol 02/22/2023 08/01/21 -- Kip Bowden MD cyclobenzaprine (FLEXERIL) 10 mg tablet 02/22/2023 10/28/17 -- Kip Bowden MD DULoxetine DR (CYMBALTA) 30 mg capsule 02/22/2023 08/25/21 -- Kip Bowden MD ergocalciferol (VITAMIN D) 50,000 unit capsule 02/22/2023 -- -- Kip Bowden MD estradioL (ESTRACE) 0.01 % (0.1 mg/gram) vaginal cream 02/22/2023 09/30/21 -- Kip Bowden MD gabapentin, bulk, 100 % powder 02/22/2023 10/01/22 -- Kip Bowden MD hydroCHLOROthiazide (HYDRODIURIL) 25 mg tablet 02/23/2023 06/28/22 -- Mickey Martin MD TAKE 1 TABLET BY MOUTH EVERY DAY HYDROcodone-acetaminophen (NORCO) 5-325 mg per tablet 02/22/2023 08/13/21 -- Kip Bowden MD irbesartan (AVAPRO) 75 mg tablet 02/23/2023 10/29/22 -- Liv Nelson MD TAKE 2 TABLETS BY MOUTH DAILY. ketamine HCl (ketamine, bulk,) 100 % powder 02/22/2023 10/01/22 -- Kip Bowden MD lubiprostone (AMITIZA) 8 mcg capsule 02/22/2023 -- -- Kip Bowden MD metoprolol tartrate (LOPRESSOR) 50 mg immediate release tablet 02/23/2023 10/20/22 -- Liv Nelson MD TAKE 1 TABLET BY MOUTH TWICE A DAY NARCAN 4 mg/actuation spray,non-aerosol -- 10/02/19 -- Kip Bowden MD pregabalin (LYRICA) 75 mg capsule 02/22/2023 02/05/20 -- Kip Bowden MD rOPINIRole (REQUIP) 2 mg tablet 02/22/2023 06/18/22 -- Kip Bowden MD zolpidem (AMBIEN) 10 mg tablet 02/22/2023 01/24/23 02/23/23 Katerina Jose NP Take 1 tablet (10 mg total) by mouth nightly Notes: This request is for a new prescription for a controlled substance as required by Federal/State law.. Current Facility-Administered Medications: ??? ondansetron (ZOFRAN) injection 4 mg, 4 mg, intravenous, Q30 Min PRN ??? sodium chloride 0.9% flush 0.5-20 mL, 0.5-20 mL, intra-catheter, PRN ??? sodium chloride 0.9% infusion, 30 mL/hr, intravenous, Continuous, Last Rate: 30 mL/hr at 02/23/23 1039, 30 mL/hr at 02/23/23 1039 ??? sodium chloride 0.9% infusion, 125 mL/hr, intravenous, Continuous Social History Tobacco Use Smoking Status Every Day ??? Packs/day: 0.75 ??? Types: Cigarettes Smokeless Tobacco Never Alcohol Use: Not on file Substance and Sexual Activity Drug Use No Family History Problem Relation Age of Onset [...] Throat cancer Mother ??? Skin cancer Mother Vitals: 02/23/23 1009 BP: 142/93 Pulse: 73 Resp: 16 Temp: 36.5 ??C (97.7 ??F) Lab Results Component Value Date WBC 8.3 08/13/2022 HGB 13.2 08/13/2022 HCT 39.4 08/13/2022 MCV 92.3 08/13/2022 LABPLAT 278 08/13/2022 Lab Results Component Value Date GLUCOSE 93 08/13/2022 CALCIUM 9.4 08/13/2022 SODIUM 141 08/13/2022 POTASSIUM 3.6 08/13/2022 CO2 29 08/13/2022 CHLORIDE 103 08/13/2022 BUNSER 15 08/13/2022 CREATININE 0.68 08/13/2022 EKG 06/08/21; SINUS RHYTHM POSSIBLE RIGHT VENTRICULAR CONDUCTION DELAY ??[RSR (QR) IN V1/V2] Leftward axis COMPARED TO PRIOR EKG, NO SIGNIFICANT CHANGE Stress test 01/31/19; 1. No left ventricular ischemia or infarction seen. 2. Normal left ventricular ejection fraction of 66%. 3. No left ventricular wall motion abnormality on cine images. 4. No significant change compared to 08/03/2017 STOP-Bang Total Score: 2 DOS Physical Exam Medical history, medications, and allergies reviewed. Attestation: I endorse the findings of the anesthesia pre-evaluation assessment dated: 02/23/2023. Airway Exam: Mallampati: II Cervical ROM: FROM TM distance: normal Patient presents with poor mouth opening. Cardiovascular Exam: Rate: regular Rhythm: regular Pulmonary Exam: LCTA, bilat EENT Exam: trachea midline Dental Exam: Appears intact Skin Exam: Skin is warm. Current state: Patient's current state is cooperative and interactive. Anesthesia Plan ASA 3 Planned anesthesia: General TIVA Induction: Induction: intravenous. Postoperative Plan: No plan for postoperative opioid use. No postoperative mechanical ventilation intended. Patient's planned disposition post procedure is Outpatient. Informed Consent: Discussed plan with CRULLER MAKER and attending. Anesthesia plan and risks discussed with patient. Consent and Attending signature: I and/or my designee have discussed the anesthesia plan, benefits, possible alternatives, parental presence at time of induction (if indicated), and clinically relevant risks that may include dental injury, unintentional awareness, and/or other complications. The patient and/or parent/legal guardian understand, and agree to proceed. All questions answered. documented in this encounter Plan of Treatment Not on file documented as of this encounter Visit Diagnoses Not on filedocumented in this encounter Administered Medications Inactive Administered Medications - up to 3 most recent administrations Medication Order MAR Action Action Date Dose Rate Site lidocaine (XYLOCAINE) 20 mg/mL (2 %) preservative free injection intravenous, As needed, Starting on Tue02/23/23 at 1212, Anesthesia Intra-op Given 02/23/2023 12:12 PM CDT 100 mg propofoL (DIPRIVAN) 10 mg/mL IV intravenous, As needed, Starting on Tue02/23/23 at 1212, Anesthesia Intra-op Given 02/23/2023 12:16 PM CDT 50 mg Given 02/23/2023 12:15 PM CDT 50 mg Given 02/23/2023 12:12 PM CDT 100 mg sodium chloride 0.9% infusion 30 mL/hr, intravenous, Continuous, Starting on Tue02/23/23 at 1030, Pre-Procedure (GI) Restarted 02/23/2023 12:21 PM CDT Rate/Dose Verify 02/23/2023 12:11 PM CDT 30 mL/ hr New Bag 02/23/2023 10:39 AM CDT 30 mL/hr 30 mL/hr documented in this encounter Care Teams Population Health Manager Relationship Specialty Start Date End Date Margarito العراقي MD [address] [place] [address] PCP - General Family Medicine 09/04/20 Raymond Vela MD [address] [place] [place] [address] Referring Physician Obstetrics and Gynecology 08/17/21 documented as of this encounter
--- OUTSIDE RECORDS SUMMARY | 2024-11-19 04:49 | XMS_ITS | Encounter Summary ---
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 Gender Identity Not on file Sexual Orientation Not on file documented as of this encounter Miscellaneous Notes * Telephone Encounter - Aleyda Garza MA - 01/20/2023 3:17 PM CST Last colonoscopy: 06/04/2013 Family history colon cancer (if yes, relationship to pt): no Personal history colon polyps or colon cancer: no Pt on blood thinner (if yes, list medication and reason for taking): no Has pt had recent stent placement within the last year: no Pt have pacemaker/defibrillator: no Pt diabetic (if yes, insulin or oral meds): no Pt have kidney disease or on dialysis: no Pt on iron: no Hx of Constipation: no Mechanical Heart valve: no COVID-19 test verbally given to pt:no Instructed pt to call with any medical changes and/or medications/insurance. RVISOR PIPELINES documented in this encounter Plan of Treatment Not on file documented as of this encounter Visit Diagnoses Diagnosis Encounter for screening colonoscopy- Primary documented in this encounter Orders Case Request Count Last Ordered Date First Orde red Date CASE REQUEST GI 1 01/20/2023 documented in this encounter Care Teams Platform Mill Supervisor Relationship Specialty Start Date End Date Margarito العراقي MD [address] [place] [address] PCP - General Family Medicine 09/04/20 Raymond Vela MD [address] [place] [place] [address] Referring Physician Obstetrics and Gynecology 08/17/21 documented as of this encounter
--- OUTSIDE RECORDS SUMMARY | 2024-11-19 04:49 | XMS_ITS | Encounter Summary ---
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 Gender Identity Not on file Sexual Orientation [...] gabapentin, bulk, 100 % powder 3 2 HYDROcodone-aceta minophen (NORCO) 5-325 mg per tablet Take 1 tablet by mouth 3 (three) times a day 1 ketamine HCl (ketamine, bulk,) 100 % powder 3 2 meloxicam (MOBIC) 15 mg tablet Take 1 tablet (15 mg total) by mouth daily 3 NARCAN 4 mg/actuation spray,non-aerosol 9 pregabalin (LYRICA) 75 mg capsule Take 1 capsule (75 mg total) by mouth daily 0 rOPINIRole (REQUIP) 2 mg tablet Take 1 tablet (2 mg total) by mouth nightly 2 amoxicillin-clavu lanate (Augmentin) 875-125 mg per tabletIndications :Acute non-recurrent pansinusitis Take 1 tablet by mouth 2 (two) times a day for 7 days 14 tablet 4 02/27/20 24 atorvastatin (LIPITOR) 20 mg tablet TAKE ONE TABLET BY MOUTH ONCE DAILY 90 tablet 1 06/16/202 0 05/07/20 24 hydroCHLOROthiazi de (HYDRODIURIL) 25 mg tablet TAKE 1 TABLET BY MOUTH EVERY DAY 30 tablet 11 3 05/07/20 24 irbesartan (AVAPRO) 75 mg tablet TAKE 2 TABLETS BY MOUTH DAILY 60 tablet 5 3 05/07/20 24 lubiprostone (AMITIZA) 8 mcg capsule Take 1 capsule (8 mcg total) by mouth 2 (two) times a day with meals 05/10/20 24 metoprolol tartrate (LOPRESSOR) 50 mg immediate release tablet TAKE 1 TABLET BY MOUTH TWICE A DAY 60 tablet 11 2 05/07/20 24 zolpidem (AMBIEN) 10 mg tablet Take 1 tablet (10 mg total) by mouth nightly 30 tablet 5 3 06/18/20 24 documented as of this encounter Discharge Disposition Disposition Code Departure Means Destination Discharge to home or self care documented in this encounter Miscellaneous Notes * Result Encounter Note - Snow Bhatti MA - 02/20/2024 7:21 PM CDT Called and spoke with patient about their negative test results. And they had a good understanding. * Result Encounter Note - Nyla Bruner MA - 02/20/2024 3:49 PM CDT Attempted to reach pt on both ph. Numbers, neither have vm * Result Encounter Note - Ruma Schulte NP - 02/20/2024 2:56 PM CDT Please notify patient of negative COVID-19/RSV/FLU test. Patient should rest, stay hydrated, and take OTC medications as needed. Monitor symptoms and if they worsen follow up with primary care doctoror ER if needed. documented in this encounter Plan of Treatment Not on file documented as of this encounter Procedures Procedure Name Priority Date/Time Associated Diagnosis Comments INFLUENZA A/B, RSV, AND COVID-19 PCR Routine 02/20/2024 11:02 AM CDT Acute non-recurrent pansinusitis documented in this encounter Results * Influenza A/B, RSV, and COVID-19 PCR Nasopharyngeal (02/20/2024 11:02 AM CDT) COVID-19 RNA Negative Negative Influenza A RNA Negative Negative [facility] Influenza B RNA Negative Negative [facility] RSV RNA Negative Negative [facility] Comment: Interpretive data: Testing performed by [facility]. This test is performed using the [employer] Xpert Xpress CoV-2/Flu/RSV plus assay. This is a multiplex, real-time reverse transcriptase PCR assay intended for the qualitative detection of nucleic acid from SARS-CoV-2, influenza A, influenza B, and respiratory syncytial virus. This assay has been cleared by the [place] Food and Drug administration. The performance characteristics have been verified by the [facility]. ??Results must be considered in the clinical context, and a negative result does not rule out infection. Interpretive Data last revised 2023 Nasopharyngeal 02/20/2024 11 :02 AM CDT 02/20/2024 2:02 PM CDT Narrative [facility] - 02/20/2024 2:53 PM CDT Is the Patient experiencing symptoms consistent with COVID?->Yes Ruma Schulte NP LAB MICROBIOLOGY - GENERAL ORD ERABLES Final Result [facility] [address] [address] [place] [address] documented in this encounter Visit Diagnoses Diagnosis Acute non-recurrent pansinusitis documented in this encounter Additional Health Concerns Infection Onset Date Last Indicated Resolved Time COVID: Suspected 02/20/2024 02/20/2024 02/20/2024 2:54 PM CDT documented as of this encounter Care Teams Brazing Machine Operator Relationship Specialty Start Date End Date Margarito العراقي MD [facility] [place] [address] PCP - General Family Medicine 09/04/20 Raymond Vela MD [address] [place] [address] Referring Physician Obstetrics and Gynecology 08/17/21 documented as of this encounter
--- OUTSIDE RECORDS SUMMARY | 2024-11-19 04:49 | XMS_ITS | Encounter Summary ---
Author Organization [facility] Address [address] [place] [address] Phone Care Team Providers Care Server Software Engineer Name Role Phone Margarito العراقي MD Primary Care Provider [phone] Raymond Vela MD Unavailable [phone] Reason for Referral * Diagnostic Imaging (Routine) - Closed Specialty Diagnoses / Procedures Referred By Contac t Referred To Contact Diagnoses Left hand pain Procedures XR Hand Left 3 or More Views Nely Carver MD [address] [facility] [phone] [place] [address] Phone: tel: fax: [address] [phone] Referral ID Status Reason Start Date Expiration Date Visits Re quested Visits Authorized [id number] Closed 09/07/2021 10/07/2022 1 1 Encounter Details Date Type Department Care Team (Late st Contact Info) Description 09/07/2021 Orders Only [facility] [address] [place] [address] Nely Carver MD [address] [facility] [phone] [place] [address] Left hand pain (Primary Dx) Social History Tobacco Use Types Packs/Day Years Used Date Smoking Tobacco: Every Day Cigarettes Smokeless Tobacco: Never Alcohol Use Standard Drinks/Week Comments No 0 (1 standard drink = 0.6 oz pur e alcohol) Comments No Sex and Gender Information Value Date Recorded Sex Assigned at Not on file 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 XR HAND LEFT 3 [...] PM T: ??10/02/2021 12:20 PM Report ID: [id number] Reading Location: ??[id number] Procedure Note Arnol Newton MD - 10/02/2021 [...] Arnol Newton M.D. AG: CHANNING Report ID: [id number] Reading Location: [place] [address] us Nely Carver MD IMG XR PROCEDURES Fi nal Result documented in this encounter Visit Diagnoses Diagnosis Left hand pain- Primary Pain in soft tissues of limb Left hand pain Pain in soft tissues of limb documented in this encounter Care Teams Server Software Engineer Relationship Specialty Start Date End Date Margarito العراقي MD [address] [place] [address] [place] [address] PCP - General Family Medicine 09/04/20 Raymond Vela MD [address] [facility] [address] [place] [address] Referring Physician Obstetrics and Gynecology 08/17/21 documented as of this encounter
--- OUTSIDE RECORDS SUMMARY | 2024-11-19 04:49 | XMS_ITS | Encounter Summary ---
Author Organization [facility] Healthcare Address [address] [place] [address] Care Team Providers Care Tire Installer Name Role Phone Margarito العراقي MD Primary Care Provider [phone] Raymond Vela MD Unavailable [phone] Encounter Details Date Type Department Care Team (Late st Contact Info) Description 10/28/2023 10:30 AM PUMP MACHINE OPERATOR Office Visit [facility] [address] [facility] [address] [place] [address] Corina Zambrano, BENEDICT [address] [facility] [address] [place] [address] Obstructive sleep apnea syndrome (Primary Dx); Hypersomnia; Obesity (BMI 30-39.9); Chronic insomnia; Meningioma (HCC) Social History Tobacco [...] on file 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:46 AM PUMP MACHINE OPERATOR Gender Identity Not on file Sexual Orientation Not on file documented as of this encounter Last Filed Vital Signs Vital Sign Reading Time Taken Comments Blood Pressure 115/79 10/28/2023 11:01 AM PUMP MACHINE OPERATOR Pulse 88 10/28/2023 11:01 AM PUMP MACHINE OPERATOR Temperature - - Respiratory Rate 18 10/28/2023 11:01 AM PUMP MACHINE OPERATOR Oxygen Saturation 94% 10/28/2023 11:01 AM PUMP MACHINE OPERATOR Inhaled Oxygen Concentration - - Weight 74.8 kg (165 lb) 10/28/2023 11:01 AM PUMP MACHINE OPERATOR Height 149.9 cm (4' 11.02 ) 10/28/2023 11:01 AM PUMP MACHINE OPERATOR Body Mass Index 33.31 10/28/2023 11:01 AM PUMP MACHINE OPERATOR documented in this encounter Ordered Prescriptions Prescription Sig Dispense Quantity Refills Last Filled Start Date End Date zolpidem (AMBIEN) 10 mg tablet Take 1 tablet (10 mg total) by mouth nightly 30 tablet 5 10/28/2023 4 documented in this encounter Progress Notes * Corina Zambrano NP - 10/28/2023 10:30 AM CST Chief complaints: NEO, hypersomnia. Delayed sleep cycle diorder. 1. Moderate NEO. Pt endorses compliance to the pressure therapy. She has been going to bed midnightand awaken by 6 am. Some nights she reports sleeping on 4-5 hours, others sleeps 12 or 13 hours. She is tolerating Full mask. 2. Hypersomnia. The pt's [place] Sleepiness Scale (ESS) is: Improved to 5 today 3. Obesity. 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 Also on norco, flexiril and benadryl. Having difficulty staying asleep. CBT-I was suggested but she rather finds her own. 5. Muscle jerking. On Ropinirole by PCP, stable. No longer on clonazepam. 6. History of meningioma MRI brain in March 2022 showed stable in size. Past Medical History: Diagnosis Date Disorder of [...] (postoperative nausea and vomiting) Sleep apnea CPAP Social History Socioeconomic History Marital status: Spouse name: Not on file Number of children: Not on file Years of education: Not on file Highest education level: Not on file Occupational History Not on file Social Needs Financial resource strain: Not on file Food insecurity Worry: Not on file Inability: Not on file Transportation needs Medical: Not on file Non-medical: Not on file Tobacco Use Smoking status: Current Every Day Smoker Packs/day: 0.25 Smokeless tobacco: Never Used Substance and Sexual Activity Alcohol use: No Drug use: No Sexual activity: Not on file Lifestyle Physical activity Days per week: Not on file Minutes per session: Not on file Stress: Not on file Relationships Social connections Talks on phone: Not on file Gets together: Not on file Attends islam service: Not on file Active member of club or organization: Not on file Attends meetings of clubs or organizations: Not on file Relationship status: Not on file Intimate partner violence Fear of current or ex partner: Not on file Emotionally abused: Not on file Physically abused: Not on file Forced sexual activity: Not on file Other Topics Concern Not on file Social History Narrative History [...] of Coronary artery disease; Stroke Other Stroke; Review of Systems Constitutional: [...] cold intolerance, heat intolerance, or generalized weakness Physical Exam Constitutional: Appearance: She is well-developed. [...] General: Skin is warm and dry. Neurological: MS: alert, oriented x3, clear/fluent speech, comprehension intact, follow commands CN: PERRLA, EOMI w/o nystagmus, visual field normal, facial sensation symmetrical No facial drooping, tongue at midline Motor: muscle bulk/tone normal, strength 5/5 in BUE and BLE equally, No pronator drift, DTRs 1+ symmetrically equal , no abnormal movement Sensory: Intact to light touch, vib, temp symmetrically Coordination: finger to nose normal Gait: normal gait AP 1. Obstructive sleep apnea with baseline AHI 15 in 2014. She reports she has been compliant and data shows it has been effective. The physiology of sleep disordered breathing and its increased association with hypertension, diabetes, heart arrhythmia, strokes, heart attacks, heart failure, hypersomnia, obesity and mood disorders was discussed. Date range: 09/27/2023 through 10/26/2023 Compliance rate: 93 % Average usage: 6 hours 57 minute Pressure: Auto setting 10-11 cm, median 10.7, maximum 10.9 Leaks: 0.8 L/ min AHI: 3.6 Date range: 03/26/2023 through 04/24/2023 Compliance rate: 87 % Average usage: 8 hours 8 minute Pressure: Auto setting 10-11 cm, median 10.7, maximum 10.9 Leaks: 1.2 L/ min AHI: 4.4 Data range: 12/25/2022-01/23/2023 Compliance rate: 90% Average usage 7 hours and 40 minutes Pressure: Auto setting 10-11cm, median 10.7, maximum 10.9 Leaks: 3.2L/min AHI 3.4 Date range: 05/31/2022 through Compliance rate: 90 % Average usage: 7h 47min Pressure: auto setting 9-11 cm, median 10.2, max 10.9 Leaks: 3.6 L/ min AHI: 3.1 Date range: 12/21/2021 through 01/19/2022 Compliance rate: 93 % Average usage: 7 [...] obesity and mood disorders was discussed. Pt to continue pressure therapy. 2. Delayed sleep phase cycle disorder: Patient's sleep scheduled is suggestive of circadian rhythm sleep disorder. Patient was discussed the above. Continue Ambien 10 mg HS, melatonin 5 mg. Despite norco, flexeril, benadryl, she has difficulty with sleep pattern. -she is planning to have therapist for CBT-I -discussed she should not take more than 10 mg of ambien nightly. 3. Obesity: The effects of obesity obstructive sleep apnea syndrome and other morbidities was discussed. Recommended diet and exercise in losing weight. Patient verbalizes an understanding. 4. Body jerky movement. -we have discontinued clonazepam. Ropinirole given by her PCP is working well. 5. History of meningioma. Previous MRI brain wwo was in [address] Younger confirmed extra-axial small mass over right frontal region. Most recent MRI brain in March 2022 showed stable appearance. Will monitor. Past investigations: 08/15/2018 CT of head without: Extra-axial small mass over right frontal region. I reviewed the image. 2. 08/15/2018 EKG: Sinus rhythm. HR 77. 3. 08/15/2018: CMP normal except creatinine 0.58. CBC normal except WBC 10.5. 4. 09/28/2018 MRI of brain with/without: No acute intracranial process. No significant encephalomalacia. Small right frontal extra-axial enhancing mass lesion suggestive of meningioma. I Reviewed the image. 5. 09/26/2018 EEG: No epileptiform discharge. 6. 08/13/2022 acetylcholine antibody 0, CBC CMP unremarkable TSH 0.98 T4 1.19 Will follow up in 6 months. MACHINE OPERATOR documented in this encounter Plan of Treatment Not on file documented as of this encounter Visit Diagnoses Diagnosis Obstructive sleep apnea syndrome- Primary Obstructive sleep apnea (adult) (pediatric) Hypersomnia Hypersomnia, unspecified Obesity (BMI 30-39.9) Chronic insomnia Insomnia, unspecified Meningioma (HCC) Benign neoplasm of cerebral meninges documented in this encounter Discontinued Medications Medication Sig Discontinue Reason Start Date End Da te zolpidem (AMBIEN) 10 mg tablet TAKE 1 TABLET BY MOUTH EVERYDAY AT BEDTIME Reorder 05/18/2023 10/28/2023 documented as of this encounter Historical Medications * This list may reflect changes made after this encounter. meloxicam (MOBIC) 15 mg tablet Take 1 tablet (15 mg total) by mouth daily 08/04/2023 added in this encounter Care Teams Tire Installer Relationship Specialty Start Date End Date Margarito العراقي MD [address] [place] [address] PCP - General Family Medicine 09/04/20 Raymond Vela MD [address] [place] [address] Referring Physician Obstetrics and Gynecology 08/17/21 documented as of this encounter
--- OUTSIDE RECORDS SUMMARY | 2024-11-19 04:49 | XMS_ITS | Encounter Summary ---
Author Organization [facility] Address [address] [facility] [address] [place] [address] Care Team Providers Care Customer Account Representative Name Role Phone Margarito العراقي MD Primary Care Provider [phone] Raymond Vela MD Unavailable [phone] Encounter Details Date Type Department Care Team (Late st Contact Info) Description 09/28/[address] [facility] Gastroenterology at [address] [place] [address] Aleyda Garza MA Social History Tobacco Use Types Packs/Day Years Used Date Smoking Tobacco: Every Day Cigarettes Smokeless Tobacco: Never Alcohol Use Standard Drinks/Week Comments No 0 (1 standard drink = 0.6 oz pur e alcohol) Comments No Sex and Gender Information Value Date Recorded Sex Assigned at Not on file 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:46 AM TORCH BRAZER Gender Identity Not on file Sexual Orientation Not on file documented as of this encounter Miscellaneous Notes * Telephone Encounter - Aleyda Garza MA - 09/28/2021 1:00 PM CST Refills have been sent tot pharmacy. H BRAZER * Telephone Encounter - Polina Rosa MD - 09/28/2021 12:12 PM TORCH BRAZER Yes give her 11 refills H BRAZER * Telephone Encounter - Aleyda Garza MA - 09/28/2021 11:20 AM CST Received a fax from the pharmacy for refills on Lubiprostone 24 MCG capsule 60 each. Take 1 capsuleby mouth two times a day with meals. Ok to refill? H BRAZER documented in this encounter Plan of Treatment Not on file documented as of this encounter Visit Diagnoses Not on filedocumented in this encounter Care Teams Customer Account Representative Relationship Specialty Start Date End Date Margarito العراقي MD [address] [place] [address] PCP - General Family Medicine 09/04/20 Raymond Vela MD [address] [place] [address] Referring Physician Obstetrics and Gynecology 08/17/21 documented as of this encounter
--- OUTSIDE RECORDS SUMMARY | 2024-11-19 04:49 | XMS_ITS | Encounter Summary ---
Author Organization [facility] Address [address] [facility] [address] [place] [address] Care Team Providers Care Securities Underwriter Name Role Phone Margarito العراقي MD Primary Care Provider [phone] Raymond Vela MD Unavailable Encounter Details Date Type Department Care Team (Late st Contact Info) Description 01/24/2023 1:30 PM RIPENING ROOM OPERATOR Office [place] [facility] [address] [facility] [address] [place] [address] Katerina Jose NP [address] [facility] [address] [place] [address] Obstructive sleep apnea syndrome (Primary Dx); Class 1 obesity with serious comorbidity and body mass index (BMI) of 32.0 to 32.9 in adult, unspecified obesity type; Ptosis of left eyelid; Primary insomnia Social History Tobacco Use Types Packs/Day [...] on file 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:46 AM RIPENING ROOM OPERATOR Gender Identity Not on file Sexual Orientation Not on file documented as of this encounter Last Filed Vital Signs Vital Sign Reading Time Taken Comments Blood Pressure 119/79 01/24/2023 1:11 PM RIPENING ROOM OPERATOR Pulse 79 01/24/2023 1:11 PM RIPENING ROOM OPERATOR Temperature - - Respiratory Rate - - Oxygen Saturation 100% 01/24/2023 1:11 PM RIPENING ROOM OPERATOR Inhaled Oxygen Concentration - - Weight 75.3 kg (166 lb) 01/24/2023 1:11 PM RIPENING ROOM OPERATOR Height 152.4 cm (5') 01/24/2023 1:11 PM RIPENING ROOM OPERATOR Body Mass Index 32.42 01/24/2023 1:11 PM RIPENING ROOM OPERATOR documented in this encounter Ordered Prescriptions Prescription Sig Dispense Quantity Refills Last Filled Start Date End Date zolpidem (AMBIEN) 10 mg tablet Take 1 tablet (10 mg total) by mouth nightly 30 tablet 01/24/2023 3 documented in this encounter Progress Notes * Katerina Jose, PULP GRINDER FEEDER - 01/24/2023 1:30 PM CST Chief complaints: NEO, hypersomnia. Delayed sleep cycle diorder. 1. Moderate NEO. Pt endorses she has been compliant to the therapy. She has had a change sleep schedule with going to bed midnight-2 am and awaken between 4-5 am. Somenights she reports sleeping on 4 hours, others sleeps 12 or 13. CPAP compliance data shows median of 7 hours and 49 minutes. She istolerating Full mask. 2. Pt reports worsening of her daytime sleepiness. The pt's [place] Sleepiness Scale (ESS) is: 14 (was 2 during the last visit). She reports that she has not been taking melatonin or Ambien on a regular schedule resulting in less sleep than prior visits. 3. Obesity. Reports some weight gain. 4. 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 Takes benadryl as needed on other nights. 5. Muscle jerking. She has noticed intermittent body jerky movement that wakes up in the middle of the night and cannot go back to bed. On Ropinirole by PCP and has been working. She was on clonazepam but she no longer takes it. 6. History of meningioma Stable. MRI brain in March 2022 showed stable in size. 7. Left eye drooping. Resolved since last visit. Previously Pt additionally reports drooping of her left upper lid. It used to happen first thing in the morning in the past 12 years, but she has been experiencing during the day at least twice day as well. The upper eyelid completely closes her eye. The Eye lid does go back up after a minute or so. She was on thyroid medication in the past but has not been on it. She does have increased muscle fatigue towards the end of the day but also carried fibromyalgia. She was thinking this was causing the fatigue. Past Medical History: Diagnosis Date Disorder of [...] MEDICAL Diverticulosis HX OTHER MEDICAL migraines; Comments: [facility] 11/27/2015 - HX OTHER MEDICAL chronic joint pain; Comments: [facility] 11/27/2015 - HX OTHER MEDICAL neuropathy; Comments: [facility] 11/27/2015 - Hyperlipidemia Hypertension Hypertension Hypertension Hypertension [...] file Gets together: Not on file Attends adventist service: Not on file Active member of [...] General: Skin is warm and dry. Neurological: Neurological: MS: alert, oriented x3, clear/fluent speech, [...] symmetrically Coordination: finger to nose normal Gait: not assessed AP 1. Obstructive sleep apnea with baseline AHI 15 in 2013. She reports she has been compliance and data shows it has been effective. The physiology of sleep disordered breathing and its increased association with hypertension, diabetes, heart arrhythmia, strokes, heart attacks, heart failure, hypersomnia, obesity and mood disorders was discussed. Data range: 12/25/2022-01/23/2023 Compliance rate: 90% Average [...] bedtimre. Pt to restart the chrono therapy. She was educated on importance of compliance of therapy. ESS was 14 today, she reports she has not been taking this consistently. 3. Obesity: The effects of obesity obstructive [...] March 2022 showed stable appearance. Will monitor. 6. Left ptosis Resolved Past investigations: 08/15/2018 CT of head without: [...] image. 5. 09/26/2018 EEG: No epileptiform discharge. Will follow up in 3 months. NING ROOM OPERATOR documented in this encounter Plan of Treatment Not on file documented as of this encounter Visit Diagnoses Diagnosis Obstructive sleep apnea syndrome- Primary Obstructive sleep apnea (adult) (pediatric) Class 1 obesity with serious comorbidity and body mass index (BMI) of 32.0 to 32.9 in adult, unspecified obesity type Ptosis of left eyelid Unspecified ptosis of eyelid Primary insomnia Persistent disorder of initiating or maintaining sleep documented in this encounter Discontinued Medications Medication Sig Discontinue Reason Start Date End Da te zolpidem (AMBIEN) 10 mg tablet TAKE 1 TABLET BY MOUTH EVERYDAY AT BEDTIME Reorder 08/26/2022 01/24/2023 documented as of this encounter Care Teams Securities Underwriter Relationship Specialty Start Date End Date Margarito العراقي MD [address] [place] [address] PCP - General Family Medicine 09/04/20 Raymond Vela MD [address] [place] [address] Referring Physician Obstetrics and Gynecology 08/17/21 documented as of this encounter
--- OUTSIDE RECORDS SUMMARY | 2024-11-19 04:49 | XMS_ITS | Encounter Summary ---
Author Organization [facility] Address [facility] [place] [address] Care Team Providers Care Batch Heat Treat Operator Name Role Phone Margarito العراقي MD Primary Care Provider [phone] Raymond Vela MD Unavailable [phone] Encounter Details Date Type Department Care Team (Late st Contact Info) Description 03/07/2024 Telephone [facility] at [address] [place] [address] Luz Forde MA Social History Tobacco [...] on file 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:46 AM CHILDREN'S MINISTER Gender Identity Not on file Sexual Orientation Not on file documented as of this encounter Miscellaneous Notes * Telephone Encounter - Luz Forde MA - 03/07/2024 4:21 PM CDT Patient informed and verbalized understanding * Telephone Encounter - Luz Forde MA - 03/07/2024 4:21 PM CDT ----- Message from Liv Nelson MD sent at 03/07/2024 2:21 PM CDT ----- This monitoring study shows sinus rhythm with normal variability and no significant cardiac arrhythmia. Patient is recorded rhythm relevant symptoms had no associated cardiac arrhythmia, benign study ----- Message ----- From: Interface, Cardiology Results In Sent: 03/05/2024 5:43 PM CDT To: Liv Nelson MD documented in this encounter Plan of Treatment Not on file documented as of this encounter Visit Diagnoses Not on filedocumented in this encounter Care Teams Batch Heat Treat Operator Relationship Specialty Start Date End Date Margarito العراقي MD [address] [place] [address] PCP - General Family Medicine 09/04/20 Raymond Vela MD [address] [place] [address] Referring Physician Obstetrics and Gynecology 08/17/21 documented as of this encounter
--- OUTSIDE RECORDS SUMMARY | 2024-11-19 04:49 | XMS_ITS | Encounter Summary ---
Author Organization [facility] Address [address] [facility] [address] [place] [address] Care Team Providers Care Engraving Plate Maker Name Role Phone Magrarito العراقي MD Primary Care Provider [phone] Raymond Vela MD Unavailable [phone] Encounter Details Date Type Department Care Team (Late st Contact Info) Description 04/26/2023 1:15 PM CDT Office Visit [facility] [address] [facility] [address] [place] [address] Corina Zambrano, BENEDICT [address] [facility] [address] [place] [address] Obstructive sleep apnea syndrome (Primary Dx); Hypersomnia; Obesity (BMI 30-39.9); Involuntary jerky movements; Meningioma (HCC); Chronic insomnia; Insomnia, unspecified type Social History Tobacco Use Types Packs/Day [...] on file 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:46 AM PRODUCT SAFETY COORDINATOR Gender Identity Not on file Sexual Orientation Not on file documented as of this encounter Last Filed Vital Signs Vital Sign Reading Time Taken Comments Blood Pressure 118/80 04/26/2023 1:40 PM CDT Pulse 82 04/26/2023 1:40 PM CDT Temperature - - Respiratory Rate 18 04/26/2023 1:40 PM CDT Oxygen Saturation 94% 04/26/2023 1:40 PM CDT Inhaled Oxygen Concentration - - Weight - - Height - - Body Mass Index - - documented in this encounter Progress Notes * Corina Zambrano NP - 04/26/2023 1:15 PM CDT Chief complaints: NEO, hypersomnia. Delayed sleep cycle diorder. 1. Moderate NEO. Pt endorses compliance to the pressure therapy. She has been going to bed midnight-2 am and awaken between 4-5 am. Some nights she reports sleepingon 4 hours, others sleeps 12 or 13 hours. She is tolerating Full mask. 2. Hypersomnia. The pt's [place] Sleepiness Scale (ESS) is: Improved to 8 today 3. Obesity. 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 She admits that she took ambien 1.5 tab when needed. Also on norco, flexiril and benadryl. Having difficulty staying asleep. 5. Muscle jerking. On Ropinirole by PCP and been working. She was on clonazepam but [...] chronic joint pain; Comments: [facility] 11/27/2015 - HX OTHER MEDICAL neuropathy; Comments: [facility] 11/27/2015 - Hyperlipidemia Hypertension Hypertension Hypertension Hypertension [...] file Gets together: Not on file Attends mosque service: Not on file Active member of [...] and mood disorders was discussed. Date range: 03/26/2023 through 04/24/2023 Compliance rate: [...] benadryl, she has difficulty with sleep pattern. -Will add CBT-I through [facility] Amber Rojo. [phone]. Pt agreeable to the plan. -discussed she should not take more than [...] image. 5. 09/26/2018 EEG: No epileptiform discharge. New investigation . 08/13/2022 acetylcholine antibody 0, CBC CMP unremarkable TSH 0.98 T4 1.19 Will follow up in 6 months. documented in this encounter Miscellaneous Notes * Addendum Note - Paulo Dave - 04/26/2023 1:15 PM CDTAddended by: PAULO DAVE on: 04/26/2023 03:40 PM Modules accepted: Orders documented in this encounter Plan of Treatment Not on file documented as of this encounter Visit Diagnoses Diagnosis Obstructive sleep apnea syndrome- Primary Obstructive sleep apnea (adult) (pediatric) Hypersomnia Hypersomnia, unspecified Obesity (BMI 30-39.9) Involuntary jerky movements Meningioma (HCC) Benign neoplasm of cerebral meninges Chronic insomnia Insomnia, unspecified Insomnia, unspecified type documented in this encounter Care Teams Engraving Plate Maker Relationship Specialty Start Date End Date Margarito العراقي MD [address] [address] PCP - General Family Medicine 09/04/20 Raymond Vela MD [address] [place] [address] Referring Physician Obstetrics and Gynecology 08/17/21 documented as of this encounter
--- OUTSIDE RECORDS SUMMARY | 2024-11-19 04:49 | XMS_ITS | Encounter Summary ---
Author Organization [facility] Address [address] [place] [address] Care Team Providers Care Reed Or Wind Instrument Tuner Name Role Phone Margarito العراقي MD Primary Care Provider [phone] Raymond Vela MD Unavailable [phone] Reason for Visit * Reason Comments Eye Problem Left eye started johnnie sing about a month ago. Encounter Details Date Type Department Care Team (Late st Contact Info) Description 06/30/2022 11:00 AM CDT Office Visit [facility] [address] [place] [id number] Corina Zambrano, BENEDICT [address] [place] [address] Ptosis of left eyelid (Primary Dx); Obstructive sleep apnea syndrome; Hypersomnia; Obesity (BMI 30-39.9); Chronic insomnia; Involuntary jerky movements; Meningioma (HCC) Social History Tobacco Use Types Packs/Day Years Used Date Smoking Tobacco: Every Day Cigarettes Smokeless Tobacco: Never Tobacco Cessation:Ready to Q uit: No; Counseling Given: No Alcohol Use Standard Drinks/Week Comments No 0 [...] on file 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 Gender Identity Not on file Sexual Orientation Not on file documented as of this encounter Last Filed Vital Signs Vital Sign Reading Time Taken Comments Blood Pressure 132/88 06/30/2022 11:20 AM CDT Pulse 80 06/30/2022 11:20 AM CDT Temperature - - Respiratory Rate 18 06/30/2022 11:20 AM CDT Oxygen Saturation - - Inhaled Oxygen Concentration - - Weight 77.1 kg (170 lb) 06/30/2022 11:20 AM CDT Height 152.4 cm (5') 06/30/2022 11:20 AM CDT Body Mass Index 33.2 06/30/2022 11:20 AM CDT documented in this encounter Progress Notes * Corina Zambrano NP - 06/30/2022 11:00 AM CDT Chief complaints: NEO, hypersomnia. Delayed sleep cycle diorder. 1. Moderate NEO. Pt endorses she has been compliant to the therapy. No change in her sleep schedule with going to bed midnight-2 am and awaken between 6:30-7 am. Tolerating Full mask. 2. Pt reports Improved control of her daytime sleepiness. The pt's [place] Sleepiness Scale (ESS) is: 2 (was 8 [...] stable in size. 7. Left eye drooping. Pt additionally reports drooping of her left upper lid. It used to happen first thing in the morning in the past 12 years, but she has been experiencing during the day at least twice day as well. Theupper eyelid completely closes her eye. The Eye lid does go back up after a minute or so. She was on thyroid medication in the past but has not been on it. She does have increased muscle fatigue towar ds the end of the day but also carried fibromyalgia. She was thinking this was causing the fatigue. Past Medical History: Diagnosis Date ??? Disorder [...] file Gets together: Not on file Attends advent service: Not on file Active member of [...] discussed. -will further adjust the setting to 10 -11 cm as the median is 9.4 Date range: 05/31/2022 through Compliance rate: 90 [...] meningioma. Last MRI brain wwo was in [address] Younger confirmed extra-axial small mass over right frontal region. Recent MRI brain in March 2022 showed stable appearance. Will monitor. 6. Left ptosis Neuro exam was unremarkable. Unable to elicit the drooping. Will check CBC CMP MG panel, TSH and T4 free. Will call with result. Past investigations: 1. 08/15/2018 CT of head [...] 09/26/2018 EEG: No epileptiform discharge. Will follow up. She has appt in January 2023. documented in this encounter Plan of Treatment Not on file documented as of this encounter Results * TSH (08/11/2022 2:54 PM CDT) Thyroid Stimulating Hormone 0.98 0.30 - 4.20 mcIUnit/mL SELVIN TH[facility] [place]) Blood 08/11/2022 2:54 PM CDT 08/11/2022 3:10 PM CDT us Corina Zambrano [facility] LAB BLOOD ORDERABLES Final Resu lt SELVIN THIB[place] ([place]) [address] [facility] [place] [address] * T4, free (07/02/2022 2:43 PM CDT) Free T4 1.19 0.90 - 1.70 ng/dL SELVIN THIBODEAUX ([place]) Blood 07/02/2022 2:43 PM CDT 07/02/2022 3:21 PM CDT us Corina Zambrano DNP LAB BLOOD ORDERABLES Final Resu lt SELVIN [facility] ([place]) [address] [facility] [place] [address] documented in this encounter Visit Diagnoses Diagnosis Ptosis of left eyelid- Primary Unspecified ptosis of eyelid Obstructive sleep apnea syndrome Obstructive sleep apnea (adult) (pediatric) Hypersomnia Hypersomnia, unspecified Obesity (BMI 30-39.9) Chronic insomnia Insomnia, unspecified Involuntary jerky movements Meningioma (HCC) Benign neoplasm of cerebral meninges documented in this encounter Discontinued Medications Medication Sig Discontinue Reason Start Date End Da te rOPINIRole (REQUIP) 1 mg tablet 1 mg 11/20/2020 06/30/2022 documented as of this encounter Historical Medications * This list may reflect changes made after this encounter. rOPINIRole (REQUIP) 2 mg tablet Take 1 tablet (2 mg total) by mouth nightly 06/18/2022 added in this encounter Orders Lab Orders Without Results Count Last Ordered D ate First Ordered Date ACETYLCHOLINE RECEPTOR, MODULATING AB 1 08/2022 documented in this encounter Care Teams Reed Or Wind Instrument Tuner Relationship Specialty Start Date End Date Margarito العراقي MD [address] [place] [address] PCP - General Family Medicine 09/04/20 Raymond Vela MD [address] [place] [address] Referring Physician Obstetrics and Gynecology 08/17/21 documented as of this encounter
--- OUTSIDE RECORDS SUMMARY | 2024-11-19 04:49 | XMS_ITS | Encounter Summary ---
Author Organization [facility] Address [address] [place] [address] Phone Care Team Providers Care Concrete Pouring Supervisor Name Role Phone Margarito العراقي MD Primary Care Provider [phone] Raymond Vela MD Unavailable [phone] Reason for Referral * Diagnostic Imaging (Routine) - Closed Specialty Diagnoses / Procedures Referred By Contac t Referred To Contact Diagnoses Age-related osteoporosis without current pathological fracture Procedures Dexa TBS Axial Skeleton Bone Density 1 or more sites Urbano Delacruz MD Phone: tel: fax: [facility] (All Locations) Referral ID Status Reason Start Date Expiration Date Visits Re quested Visits Authorized [id number] Closed 03/03/2023 04/01/2024 12 12 Reason for Visit * Reason Comments Osteopenia * Diagnostic Imaging (Routine) - Closed Specialty Diagnoses / Procedures Referred By Contac t Referred To Contact Diagnoses Age-related osteoporosis without current pathological fracture Procedures Dexa Axial Skeleton Bone Density 1 or 2 Site Urbano Delacruz MD Phone: tel: fax: [facility] (All Locations) Referral ID Status Reason Start Date Expiration Date Visits Re quested Visits Authorized [id number] Closed 02/12/2022 03/14/2023 12 12 Encounter Details Date Type Department Care Team (Latest Contact Info) Description 03/14/2023 2:10 PM CDT Clinical Support [facility] [address] [place] [address] [place] [address] Age-related osteoporosis without current pathological [...] on file 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 Gender Identity Not on file Sexual Orientation Not on file documented as of this encounter Plan of Treatment Not on file documented as of this encounter Procedures Procedure Name Priority Date/Time Associated Diagnosis Comments DEXA TBS AXIAL SKELETON BONE DENSITY 1 OR MORE SITES Schedule Routine, Read Routine (OP Routine) 03/14/2023 2:25 PM CDT Age-related osteoporosis without current pathological fracture documented in this encounter Results * Dexa TBS Axial Skeleton Bone Density 1 or more sites (03/14/2023 2:25 PM CDT) Anatomical Region Laterality Modality Wrist, Body N/A Radiographic Krupa ging Narrative 03/15/2023 1:10 PM CDT Patient Name: Shivani Betancur Date of : 1965 Date of scan: 03/14/2023 Bone mineral density was performed on a [employer] Densitometer. ?? Based on machine cross-calibration and precision studies the least significant changes of this densitometer is 0.024 g/cm2 at the spine, 0.020 g/cm2 at the total proximal femur, and 0.014g/cm2 at the forearm. HISTORY: This is a 57 y.o. postmenopausal female with a history of low bone mass, thyroid disease, and vitamin D deficiency. She reports that she has been smoking cigarettes. She has been smoking an average of .75 packs per day. She has never used smokeless tobacco. Currently on treatment with calcium, vitamin D, and diuretics, previously treated with ibandronate (Boniva), zoledronic acid (Reclast), teriparatide (Forteo), denosumab (Prolia), hormone replacement therapy, and thyroid hormone, and current complaint of back pain and leg pain. INDICATIONS: Menopause status, history of prior vertebral fracture, vitamin D deficiency, and history of low bone mass. FINDINGS: BONE MINERAL DENSITY OF THE LUMBAR SPINE Bone Mineral Density (BMD) of the lumbar spine was measured from L1-L4 and the average density was calculated to be 1.011 gm/cm2. This corresponds to a T-score (standard deviations from the mean of young adults) of -0.3. When compared to the previous study of 02/23/2022 there has been no significant changes in bone density. BONE MINERAL DENSITY OF THE PROXIMAL FEMUR Bone Mineral Density (BMD) of the left hip total was found to be 1.008 gm/cm2. This corresponds to a T-score standard deviations from the mean of young adults of 0.5. Femoral neck is 0.798 gm/cm2 with a T-score (standard deviations from the mean of young adults) of -0.5. When compared to the previous study of 02/23/2022 there has been no significant changes in bone density. BONE MINERAL DENSITY OF THE FOREARM Bone Mineral density (BMD) of the left proximal 1/3 of the radius measures 0.627 gm/cm2. This corresponds to a T-score (standard deviations from the mean of young adults) of -1.1. When compared to the previous study of 02/23/2022 there has been no significant changes in bone density. A forearm bone density study was performed in addition to the routine study because of the need to provide a comparison to the previous exam ?? and physician request. SUMMARY: Bone mineral density shows evidence of low bone mass at the forearm and moderately increased fracture risk (Osteopenia). There has been no significant changes in bone density since previous measurement. The lumbar spine Trabecular Bone Score is 1.201 which suggests degraded bone microarchitecture compared to the general [...] bone mineral density scan were prepared by Lala Naylor)(Andrew)(BD) CBDT who is accredited by the International Society of Clinical Densitometry. The overall patient assessment and scan interpretation were performed by Urbano Delacruz MD who is certified by the International Society of Clinical Densitometry. [id number] Urbano Delacruz MD IMG DXA PROCEDURES Final Result documented in this encounter Visit Diagnoses Diagnosis Age-related osteoporosis without current pathological fracture- Primary documented in this encounter Orders Outpatient Referral Count Last Ordered Date Fir st Ordered Date [facility] 03/14/2023 documented in this encounter Care Teams Concrete Pouring Supervisor Relationship Specialty Start Date End Date Margarito العراقي MD [address] [place] [address] PCP - General Family Medicine 09/04/20 Raymond Vela MD [address] [place] [address] Referring Physician Obstetrics and Gynecology 08/17/21 documented as of this encounter
--- OUTSIDE RECORDS SUMMARY | 2024-11-19 04:49 | XMS_ITS | Encounter Summary ---
Author Organization [facility] Healthcare Address [address] [place] [address] Care Team Providers Care Finishing Range Feeder Name Role Phone Margarito العراقي MD Primary Care Provider [phone] Raymond Vela MD Unavailable [phone] Reason for Visit * Reason Comments Cold Symptoms Pt c/o congestion, p roductive cough, crackling when breathing, winded with medial tasks, fatiguedPt states no fever, sore throat, nausea, vomiting, chest pain, or SOBS/s started a few weeks agoPt has self medicated with benadryl and nasal spray Encounter Details Date Type Department Care Team (Late st Contact Info) Description 02/20/2024 10:45 AM CDT Office Visit [facility] at [address] [id number] Ruma Schulte, MANAGER FORMS [address] [place] [id number] Acute non-recurrent pansinusitis (Primary Dx) Social History Tobacco Use Types [...] on file 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:46 AM [employer] Gender Identity Not on file Sexual Orientation Not on file documented as of this encounter Last Filed Vital Signs Vital Sign Reading Time Taken Comments Blood Pressure 126/74 02/20/2024 10:55 AM CDT Pulse 74 02/20/2024 10:55 AM CDT Temperature 36.6 ??C (97.9 ??F) 02/20/2024 10:55 AM C DT Respiratory Rate 18 02/20/2024 10:55 AM CDT Oxygen Saturation 98% 02/20/2024 10:55 AM CDT Inhaled Oxygen Concentration - - Weight 72.6 kg (160 lb) 02/20/2024 10:55 AM CDT Height 149.9 cm (4' 11 ) 02/20/2024 10:55 AM CDT Body Mass Index 32.32 02/20/2024 10:55 AM CDT documented in this encounter Patient Instructions * Patient Instructions* Ruma Schulte MANAGER FORMS - 02/20/2024 10:45 AM CDT Research has proven that unless you are running a fever, sinus infections are typically viral untildays 9-10. Finish the entire antibiotic prescription. Take this with food. Eat yogurt or take probiotic daily while on antibiotics. Symptomatic treatments include: -Over the counter antihistamine such as loratadine (Claritin) or cetirizine (Zyrtec) to reduce secretions. The D formula includes pseudoephedrine and can be helpful as a decongestant but SHOULD NOTBE USED IF YOU HAVE A HISTORY OF HIGH BLOOD PRESSURE. -Coricidin HBP may be taken for congestion if you have a history of high blood pressure. -Tessalon, Dextromethorphan (Robitussin) or Delsym for cough -Guafenesin (Mucinex) to thin secretions -Acetaminophen (Tylenol), ibuprofen (Motrin, Advil), or Aleve (naproxen) for pain or fever. -The use of hypertonic saline to irrigate nasal passageways can be helpful. Over the counter systems include Neti Pot and Nasopure. Use with distilled water. -Salt water gargles and throat lozenges can be helpful for sore throat. -To prevent spreading the illness to others cover your sneeze and cough into your arm and not your hand, don't allow others to eat or drink with the same utensils or glass, and use hand transportation operations manager before touching people or common surfaces. -Apply warm packs to face to facilitate sinus drainage. - Use cool mist humidifier in bedroom at night. -Increase fluid consumption and Rest. -Follow up with your PCP in 1 week or sooner if symptoms worsen or are not improving as planned. -If you experience any shortness of breath, chest pain, or high fever >101, go to the Emergency Room. Use alternate method of control for the entire course of antibiotics and one week after the last dose of antibiotics, if applicable. GO TO EMERGENCY ROOM OR CALL 911 WITH ANY OF THE FOLLOWING SYMPTOMS: HIGH, PERSISTENT FEVER >101; SWELLING, INFLAMMATION, OR REDNESS AROUND EYES, ABNORMAL EYE MOVEMENTS, CHEST PAIN, SHORTNESS OF BREATH, VISION CHANGES (DOUBLE VISION OR IMPAIRED VISION); SEVERE HEADACHE; ALTERED MENTAL STATUS. THESE ARE SIGNS OF A RARE, BUT SERIOUS COMPLICATION AND REQUIRES IMMEDIATE EMERGENCY ATTENTION. * Attachments The following attachments cannot be sent through Care Everywhere. * Sinusitis (Image Assembler) (Romansh) documented in this encounter Ordered Prescriptions Prescription Sig Dispense Quantity Refills Last Filled Start Date End Date benzonatate (TESSALON) 200 mg capsuleIndications :Acute non-recurrent pansinusitis Take 1 capsule (200 mg total) by mouth 3 (three) times a day as needed for cough 30 capsule 02/20/2024 amoxicillin-clavul anate (Augmentin) 875-125 mg per tabletIndications: Acute non-recurrent pansinusitis Take 1 tablet by mouth 2 (two) times a day for 7 days 14 tablet 02/20/2024 4 documented in this encounter Progress Notes * Ruma Schulte NP - 02/20/2024 10:45 AM CDT Images from the original note were not included. Patient ID: Shivani Betancur is a 58 y.o. female followed by Margarito العراقي MD Chief Complaint Patient presents with Cold Symptoms Pt c/o congestion, productive cough, crackling when breathing, winded with medial tasks, fatigued Pt states no fever, sore throat, nausea, vomiting, chest pain, or SOB S/s started a few weeks ago Pt has self medicated with benadryl and nasal spray Patient presents to the clinic with reports of congestion, productive cough, crackling sounds when breathing, winded with medial tasks, and fatigue for 2-3 weeks. Patient has taken Benadryl and nasalspray for her symptoms. Patient denies fevers, chest pain, vomiting, dizziness, and difficulty breathing. Review of Systems Constitutional: Positive for fatigue. Negative for chills and fever. HENT: Positive for congestion. Negative for ear pain, postnasal drip, rhinorrhea, sinus pressure and sore throat. Respiratory: Positive for cough and shortness of breath (with exertion). Negative for wheezing. Cardiovascular: Negative for chest pain. Gastrointestinal: Negative for nausea. Musculoskeletal: Negative for myalgias. Neurological: Negative for headaches. Vitals: 02/20/24 1055 BP: 126/74 BP Location: Left arm Pulse: 74 Resp: 18 Temp: 36.6 ??C (97.9 ??F) SpO2: 98% Weight: 72.6 kg (160 lb) Height: 149.9 cm (4' 11 ) No results found for this or any previous visit (from the past 24 hour(s)). Physical Exam Vitals reviewed. Constitutional: General: She is not in acute distress. Appearance: Normal appearance. She is not ill-appearing. HENT: Head: Normocephalic. Right Ear: Tympanic membrane, ear canal and external ear normal. No middle ear effusion. Tympanic membrane is not erythematous or bulging. Left Ear: Tympanic membrane, ear canal and external ear normal. No middle ear effusion. Tympanic membrane is not erythematous or bulging. Nose: Rhinorrhea present. No congestion. Rhinorrhea is clear. Right Turbinates: Not swollen. Left Turbinates: Not swollen. Right Sinus: Maxillary sinus tenderness and frontal sinus tenderness present. Left Sinus: Maxillary sinus tenderness and frontal sinus tenderness present. Mouth/Throat: Lips: [place]. Mouth: Mucous membranes are moist. Pharynx: Uvula midline. No pharyngeal swelling, oropharyngeal exudate or posterior oropharyngeal erythema. Cardiovascular: Rate and Rhythm: Normal rate and regular rhythm. Pulmonary: Effort: Pulmonary effort is normal. No respiratory distress. Breath sounds: Normal breath sounds. No decreased breath sounds or wheezing. Comments: Coughing observed Lymphadenopathy: Cervical: No cervical adenopathy. Skin: General: Skin is warm. Neurological: Mental Status: She is oriented to person, place, and time. Psychiatric: Behavior: Behavior is cooperative. Diagnoses and all orders for this visit: Acute non-recurrent pansinusitis (Primary) - Influenza A/B, RSV, and COVID-19 PCR Nasopharyngeal; Future - amoxicillin-clavulanate (Augmentin) 875-125 mg per tablet; Take 1 tablet by mouth 2 (two) times aday for 7 days - benzonatate (TESSALON) 200 mg capsule; Take 1 capsule (200 mg total) by mouth 3 (three) times a day as needed for cough Orders Placed This Encounter Procedures Influenza A/B, RSV, and COVID-19 PCR Nasopharyngeal Standing Status: Future Standing Expiration Date: 02/19/2025 Order Specific Question: Is the Patient experiencing symptoms consistent with COVID? Answer: Yes Assessment/Plan # acute sinus infection --likely bacterial given symptoms, duration of illness, and assessment. --exam findings warrant antibiotics. Started Augmentin --recommended to continue cold/sinus medications and sinus rinse. --COVID/FLU swab pending --ED presentation with one or more of the following symptoms: fever uncontrolled with antipyretics,shortness of breath, chest discomfort, uncontrolled n/v/d --f/u with PCP in 5-7 days if symptoms do not improve/worsen Disposition Treatment plan including expectations, follow up, and return precautions discussed with patient/parent, verbalizes understanding. Medication dosage, use, and potential adverse reactions discussed with patient/parent. Advised to follow up with PCP if symptoms do not resolve as expected or sooner if condition worsens. Discussed Signs/symptoms warranting ER evaluation including worsening fever, increased shortness ofbreath, chest pain, severe N/V/D, or any other worrisome symptoms Patient and/or guardian was given an opportunity to ask questions, questions answered. Patient Education Research has proven that unless you are running a fever, sinus infections are typically viral untildays 9-10. Finish the entire antibiotic prescription. Take this with food. Eat yogurt or take probiotic daily while on antibiotics. Symptomatic treatments include: -Over the counter antihistamine such as loratadine (Claritin) or cetirizine (Zyrtec) to reduce secretions. The D formula includes pseudoephedrine and can be helpful as a decongestant but SHOULD NOTBE USED IF YOU HAVE A HISTORY OF HIGH BLOOD PRESSURE. -Coricidin HBP may be taken for congestion if you have a history of high blood pressure. -Tessalon, Dextromethorphan (Robitussin) or Delsym for cough -Guafenesin (Mucinex) to thin secretions -Acetaminophen (Tylenol), ibuprofen (Motrin, Advil), or Aleve (naproxen) for pain or fever. -The use of hypertonic saline to irrigate nasal passageways can be helpful. Over the counter systems include Neti Pot and Nasopure. Use with distilled water. -Salt water gargles and throat lozenges can be helpful for sore throat. -To prevent spreading the illness to others cover your sneeze and cough into your arm and not your hand, don't allow others to eat or drink with the same utensils or glass, and use hand transportation operations manager before touching people or common surfaces. -Apply warm packs to face to facilitate sinus drainage. - Use cool mist humidifier in bedroom at night. -Increase fluid consumption and Rest. -Follow up with your PCP in 1 week or sooner if symptoms worsen or are not improving as planned. -If you experience any shortness of breath, chest pain, or high fever >101, go to the Emergency Room. Use alternate method of control for the entire course of antibiotics and one week after the last dose of antibiotics, if applicable. GO TO EMERGENCY ROOM OR CALL 911 WITH ANY OF THE FOLLOWING SYMPTOMS: HIGH, PERSISTENT FEVER >101; SWELLING, INFLAMMATION, OR REDNESS AROUND EYES, ABNORMAL EYE MOVEMENTS, CHEST PAIN, SHORTNESS OF BREATH, VISION CHANGES (DOUBLE VISION OR IMPAIRED VISION); SEVERE HEADACHE; ALTERED MENTAL STATUS. THESE ARE SIGNS OF A RARE, BUT SERIOUS COMPLICATION AND REQUIRES IMMEDIATE EMERGENCY ATTENTION. Ruma Schulte NP Cosigned by Jaswinder Victoria MD at 02/20/2024 11:24 AM CDT documented in this encounter Plan of Treatment Not on file documented as of this encounter Results * Influenza A/B, RSV, and COVID-19 PCR Nasopharyngeal (02/20/2024 11:02 AM CDT) COVID-19 RNA Negative Negative Influenza A RNA Negative Negative [facility] Influenza B RNA Negative Negative [facility] RSV RNA Negative Negative [facility] Comment: Interpretive data: Testing performed by [facility]. This test is performed using the [employer] Xpert Xpress CoV-2/Flu/RSV plus assay. This is a multiplex, real-time reverse transcriptase PCR assay intended for the qualitative detection of nucleic acid from SARS-CoV-2, influenza A, influenza B, and respiratory syncytial virus. This assay has been cleared by the [place] Food and Drug administration. The performance characteristics have been verified by the [facility]. ??Results must be considered in the clinical context, and a negative result does not rule out infection. Interpretive Data last revised 2023 Nasopharyngeal 02/20/2024 11 :02 AM CDT 02/20/2024 2:02 PM CDT Narrative [facility] - 02/20/2024 2:53 PM CDT Is the Patient experiencing symptoms consistent with COVID?->Yes Ruma Schulte NP LAB MICROBIOLOGY - GENERAL ORD ERABLES Final Result [facility] [address] Department [place] [address] documented in this encounter Visit Diagnoses Diagnosis Acute non-recurrent pansinusitis- Primary Acute non-recurrent pansinusitis documented in this encounter Historical Medications * This list may reflect changes made after this encounter. clindamycin (CLEOCIN) 2 % vaginal cream INSERT ONE APPFUL VAGINALLY EVERY DAY AT BEDTIME FOR 3 DAYS 01/05/2024 added in this encounter Additional Health Concerns Infection Onset Date Last Indicated Resolved Time COVID: Suspected 02/20/2024 02/20/202402/20/2024 2:54 PM CDT documented as of this encounter Care Teams Finishing Range Feeder Relationship Specialty Start Date End Date Margarito العراقي MD [address] [place] [address] PCP - General Family Medicine 09/04/20 Raymond Vela MD [address] [place] [address] Referring Physician Obstetrics and Gynecology 08/17/21 documented as of this encounter
--- OUTSIDE RECORDS SUMMARY | 2024-11-19 04:49 | XMS_ITS | Encounter Summary ---
Author Organization [facility] Address [address] [place] [address] Phone Care Team Providers Care Petrophysicist Name Role Phone Margarito العراقي MD Primary Care Provider [phone] Raymond Vela MD Unavailable Reason for Visit * Reason Comments Osteoporosis Encounter Details Date Type Department Care Team (Late st Contact Info) Description 03/14/2023 2:40 PM CDT Office Visit [facility] [address] 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 Gender Identity Not on file Sexual Orientation Not on file documented as of this encounter Last Filed Vital Signs Vital Sign Reading Time Taken Comments Blood Pressure - - Pulse - - Temperature - - Respiratory Rate - - Oxygen Saturation - - Inhaled Oxygen Concentration - - Weight 75.8 kg (167 lb 3.2 oz) 03/14/2023 2:35 P M CDT Height 149.9 cm (4' 11 ) 03/14/2023 2:35 PM CDT Body Mass Index 33.77 03/14/2023 2:35 PM CDT documented in this encounter Patient Instructions * Patient Instructions* Urbano Delacruz MD - 03/14/2023 2:40 PM CDT Bone Health Program Discharge and Information Sheet Contact: Call: [phone] or [phone] FAX: [phone] Name: Shivani Betancur Thank you for choosing the [facility] for consultation about [...] Treatment Plan; Calcium, Vitamin D and Excercise - Calcium 0904-5229 mg daily, through a combination of diet and supplements - Vitamin D 1726-9969 IU daily - Weight bearing activity as [...] Appointment: Please stop at the front desk associate to make a follow-up appointment in 1 year or call [phone]. Every attempt will be made to schedule [...] to give our office a call at [phone] option # 1. Bone Density Testing: To ensure the best quality of care, we strongly recommend you have all your follow up bone density tests done at our center. Bone density tests cannot be compared between different facilities. If another physician requests a bone density test for you, please let her/him know that your bone density is being monitored by the [facility]. If your other providers have questions or would like a report of your bone density scans, they can contact [facility] [phone] or Medical Records at [phone]. Important! Always remember to stop taking your calcium supplements 24 hours before you are scheduled to have your bone density test at your next visit. If you need to make changes to your follow-up appointment or are running late to your visit at the [facility] Health Program, please contact us as soon as possible at [phone] ([facility]), or [phone] ([facility]), or [phone] ([facility]). We work on a very tight schedule and depending on the circumstances it may be necessary to resched ule your appointment if no other time slot is available on the same day. [employer] patient portal allows you to view your medical records, test results, personal information,request prescription renewals, review past appointments, request new ones and securely communicate online with our office. Ask at the receptionist secretary desk about receiving an invite to join [employer] portal. For questions about accessing [employer] patient portal call [phone]. Feel free to visit our web site for further information on medications, diet, exercise and other things you can do to take charge of your bone health: [email or web address] Thank you for choosing the [facility]! documented in this encounter Progress Notes * Natali Mason MD - 03/14/2023 2:40 PM CDT NAME: Shivani Betancur : 1965 [...] years ago left lower ext- scar indentation History of sciatica, required cortisone injection for relief, had about a month ago Started on estrogen and testosterone pellets ~1 month ago for hot flashes by Dr. Nice in [place]. DEXA: June of 2015 L1 through L4 [...] 2-3 x/week, 50 K weekly of ergocalciferol weekly + cholecalciferol 2000IU daily. 600 mg calcium intermittently 2-3 times per week. Dairy - ice-cream , cheese. Activity : Walks 5-7 K steps/day goal of 10K hoping to be more active. Tobacco Use: Continues to smoke 1/2 PPD ROS: trouble with weight loss Has been compliant with her CPAP device. [...] MEDICAL HISTORY: Past Medical History: Diagnosis Date Disorder of [...] (postoperative nausea and vomiting) Sleep apnea CPAP PAST SURGICAL HISTORY: Past Surgical History: Procedure Laterality Date APPENDECTOMY 2006 Appendectomy APPENDECTOMY 2005 Appendectomy APPENDECTOMY Appendectomy SECTION 1982 section SECTION c section HARDWARE REMOVAL LAPAROSCOPIC CHOLECYSTECTOMY 2013 laparoscopic cholecystectomy [...] orif TOTAL ABDOMINAL HYSTERECTOMY W/ BILATERAL SALPINGOOPHORECTOMY 2009 hysterectomy: ADE/BSO VAGINAL HYSTERECTOMY 2009 Hysterectomy, vaginal ACTIVE PROBLEMS: Patient Active Problem List Diagnosis Hypertension Depression Disorder of pelvis Fibrositis Chronic cholecystitis Goiter Insomnia Osteoporosis Skin lesion Abdominal hernia Precordial pain Obstructive sleep apnea syndrome Painful orthopaedic hardware (CMS/HCC) Right ankle pain Diverticulosis Gastro-esophageal reflux disease without esophagitis Ptosis of eyelid Umbilical hernia without obstruction or gangrene Ventral hernia without obstruction or gangrene Lumbago Episodic tension-type headache Vitamin D deficiency disease Osteopenia Obesity Pain in female pelvis Pain in shoulder Elevated cortisol level (CMS/HCC) Atypical migraine Anaclitic depression Fibromyalgia Abdominal pain Constipation Diverticulosis of intestine without perforation or abscess without bleeding Need for norntifsoj-jsoubec-csemqxtvs (Tdap) vaccine Breast cancer screening Shaking Poison shala dermatitis Seizure-like activity (CMS/HCC) Brain mass CURRENT MEDICATIONS: Current Outpatient Medications Medication Sig Dispense Refill atorvastatin (LIPITOR) 20 mg tablet TAKE ONE TABLET BY MOUTH ONCE DAILY 90 tablet 1 calcium carbonate (CALCIUM 600 ORAL) Take by mouth 2 (two) times a day cholecalciferol, vitamin D3, (VITAMIN D3 ORAL) Take by mouth cyclobenzaprine (FLEXERIL) 10 mg tablet Take 1 tablet (10 mg total) by mouth 3 (three) times a day as needed DULoxetine DR (CYMBALTA) 30 mg capsule ergocalciferol (VITAMIN D) 50,000 unit capsule ergocalciferol (vitamin D2) 1,250 mcg (50,000 unit) capsule TAKE 1 CAPSULE BY MOUTH ONCE PER WEEK estradioL (ESTRACE) 0.01 % (0.1 mg/gram) vaginal cream hydroCHLOROthiazide (HYDRODIURIL) 25 mg tablet TAKE 1 TABLET BY MOUTH EVERY DAY 30 tablet 11 HYDROcodone-acetaminophen (NORCO) 5-325 mg per tablet Take 1 tablet by mouth 3 (three) times a day irbesartan (AVAPRO) 75 mg tablet TAKE 2 TABLETS BY MOUTH DAILY. 60 tablet 5 lubiprostone (AMITIZA) 8 mcg capsule Take 1 capsule (8 mcg total) by mouth 2 (two) times a day withmeals metoprolol tartrate (LOPRESSOR) 50 mg immediate release tablet TAKE 1 TABLET BY MOUTH TWICE A DAY 60 tablet 11 NARCAN 4 mg/actuation spray,non-aerosol pregabalin (LYRICA) 75 mg capsule Take 1 capsule (75 mg total) by mouth daily rOPINIRole (REQUIP) 2 mg tablet Take 1 tablet (2 mg total) by mouth nightly azelastine 205.5 mcg (0.15 %) spray,non-aerosol SPRAY 1 SPRAY INTO EACH NOSTRIL TWICE A DAY (Patient not taking: Reported on 03/14/2023) gabapentin, bulk, 100 % powder (Patient not taking: Reported on 03/14/2023) 3 ketamine HCl (ketamine, bulk,) 100 % powder (Patient not taking: Reported on 03/14/2023) 3 zolpidem (AMBIEN) 10 mg tablet Take 1 tablet (10 mg total) by mouth nightly 30 tablet 0 No current facility-administered medications for this visit. ALLERGIES: Allergies Allergen Reactions Ciprofloxacin Shortness of [...] Nausea only Reaction: Itching, Nausea, Lisinopril Cough FAMILY HISTORY: Family History Problem [...] of Coronary artery disease; Stroke Other Stroke; VITAL SIGNS: Vitals Ht 149.9 cm (4' 11 ) Wt 75.8 kg (167 lb 3.2 oz) BMI 33.77 kg/m?? PHYSICAL EXAM: Physical Exam HENT: Head: [...] young adults) of -1.1. When compared to bone density study from 02/23/2022 there has been no significant changes in bone density SUMMARY: Bone mineral density is near the young adult normal mean with no increased risk for fracture. There has been no significant changes in bone density since previous measurement. TBS- 1.224 TBS score >1.35 normal TBS score 1.2-1.35 partially degraded TBS Score <1.2 degraded TBS Score 1.201 degraded LABS: Recent Results (from the past 1008 hour(s)) Basic metabolic panel Collection Time: 09/13/18 8:18 AM Result Value Ref Range Glucose 117 (H) 65 - 99 mg/dL BUN 12 7 - 25 mg/dL Creatinine 0.56 0.50 - 1.05 mg/dL eGFR NON-AFR. BELIZEAN 106 > OR = 60 mL/min/1.73m2 EGFR [...] (calc) ASSESSMENT AND PLAN: This is a 57 y.o. postmenopausal, female with bone mineral densities [...] will continue to monitor clinically and BMD. Especially in lightof her being started on estrogen pellets by a local provider. I did discus the risk of HRT with hercontinued smoking. Counseled smoking cessation Reviewed the goal is 1200mg of calcium per day preferably through dietary sources Continue 50 K weekly Ergo- D level 49. Last checked 03/12 pending repeat lveel. Recheck vitamin D, BMP and osteocalcin and beta Ctx Engage in weight bearing activity as tolerated. Hand outs provided to patient. Will f/u in 1yr with Rpt BMD. (2) Screen for Branch's given her young age, bone densities, and her other constellation of symptoms including weight gain, fatigue, centri- pedal obesity, dexamethasone suppression test to rule outthe possibility of subclinical Branch's. Dex supressiont test negative. Am cortisol 0.6 (3) HTN- weight loss, DASH diet, decrease ETOH and smoking cessation. (4) Counseled Smoking Cessation- discussed with patient options to assist, including nicotine replacement products like patches, and lozenges and non - combustible cigarettes and medications like Chantix or Wellbutrin. Natali Mason MD PGY-4 Clinical Endocrinology Fellow Thank you for sending your patient to the [facility] at [facility]. Please let me know [...] may reflect changes made after this encounter. cholecalciferol, vitamin D3, (VITAMIN D3 ORAL) Take by mouth calcium carbonate (CALCIUM 600 ORAL) Take by mouth 2 (two) times a day added in this encounter Care Teams Petrophysicist Relationship Specialty Start Date End Date Margarito العراقي MD [address] [place] [address] PCP - General Family Medicine 09/04/20 Raymond Vela MD [address] [place] [address] Referring Physician Obstetrics and Gynecology 08/17/21 documented as of this encounter
--- OUTSIDE RECORDS SUMMARY | 2024-11-19 04:49 | XMS_ITS | Encounter Summary ---
Author Organization [facility] Address [address] [place] [address] Phone Care Team Providers Care Decision Analyst Name Role Phone Margarito العراقي MD Primary Care Provider [phone] Raymond Vela MD Unavailable [phone] Reason for Referral * Diagnostic Imaging (Routine) - Closed Specialty Diagnoses / Procedures Referred By Contac t Referred To Contact Diagnoses Age-related osteoporosis without current pathological fracture Procedures Dexa Axial Skeleton Bone Density 1 or 2 Site Urbano Delacruz MD Phone: tel: fax: [facility] (All Locations) Referral ID Status Reason Start Date Expiration Date Visits Re quested Visits Authorized [id number] Closed 02/12/2022 03/14/2023 12 12 Reason for Visit * Reason Comments Osteoporosis * Diagnostic Imaging (Routine) - Closed Specialty Diagnoses / Procedures Referred By Contac t Referred To Contact Diagnoses Age-related osteoporosis without current pathological fracture Procedures Dexa Axial Skeleton Bone Density 1 or 2 Site Urbano Delacruz MD Phone: tel: fax: [facility] (All Locations) Referral ID Status Reason Start Date Expiration Date Visits Re quested Visits Authorized [id number] Closed 02/12/2022 03/14/2023 12 12 Encounter Details Date Type Department Care Team (Latest Contact Info) Description 02/23/2022 2:50 PM CDT Clinical Support [facility] [address] [facility] 5th [place] [address] [place] [phone] Age-related osteoporosis without current pathological fracture (Primary [...] on file 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 Gender Identity Not on file Sexual Orientation Not on file documented as of this encounter Plan of Treatment Not on file documented as of this encounter Procedures Procedure Name Priority Date/Time Associated Diagnosis Comments DEXA AXIAL SKELETON BONE DENSITY 1 OR MORE SITES Schedule Routine, Read Routine (OP Routine) 02/23/2022 2:49 PM CDT Age-related osteoporosis without current pathological fracture documented in this encounter Results * Dexa Axial Skeleton Bone Density 1 or 2 Site (02/23/2022 2:49 PM CDT) Anatomical Region Laterality Modality Body N/A Radiographic Krupa ging Narrative 02/24/2022 3:39 PM CDT Patient Name: Shivani Betancur Date of : 1965 Date of scan: 02/23/2022 Bone mineral density was performed on a [employer] Discovery Densitometer. ?? Based on machine cross-calibration and precision studies the least significant changes of this densitometer is 0.024 g/cm2 at the spine, 0.020 g/cm2 at the total proximal femur, and 0.014g/cm2 at the forearm. HISTORY: This is a 56 y.o. postmenopausal female with a history of low bone mass, thyroid disease and vitamin D deficiency. She reports that she has been smoking. She has been smoking about 0.25 packs per day. She has never used smokeless tobacco. Currently on treatment with calcium, vitamin D, zoledronic acid (Reclast) and diuretics, previously treated with ibandronate (Boniva), teriparatide (Forteo), denosumab (Prolia), hormone replacement therapy and thyroid hormone and current complaint of arm pain, back pain, neck pain and leg pain. INDICATIONS: Menopause status, treatment monitoring, vitamin D deficiency and history of low bone mass. FINDINGS: [...] changes in bone density since previous measurement. ADDITIONAL COMMENTS: Postmenopausal Women and Men Over [...] bone mineral density scan were prepared by Mariana PERDUE) who is accredited by the International Society of Clinical Densitometry. The overall patient assessment and scan interpretation were performed by Urbano Delacruz M.D. who is certified by the International Society of Clinical Densitometry. [id number] us Urbano Delacruz MD IMG DXA PROCEDURES Final Result documented in this encounter Visit Diagnoses Diagnosis Age-related osteoporosis without current pathological fracture- Primary documented in this encounter Care Teams Decision Analyst Relationship Specialty Start Date End Date Margarito العراقي MD [address] [facility] [address] [place] [address] PCP - General Family Medicine 09/04/20 Raymond Vela MD [address] [place] [address] Referring Physician Obstetrics and Gynecology 08/17/21 documented as of this encounter
--- OUTSIDE RECORDS SUMMARY | 2024-11-19 04:49 | XMS_ITS | Encounter Summary ---
Author Organization [facility] Address [address] [facility] [address] [place] [address] Care Team Providers Care Managing Jeweler Name Role Phone Margarito العراقي MD Primary Care Provider [phone] Raymond Vela MD Unavailable [phone] Reason for Visit * Reason Comments Follow-up Encounter Details Date Type Department Care Team ([facility] Contact Info) Description 05/02/2023 2:15 PM CDT Office Visit [facility] at [address] [address] Liv Nelson MD [address] [place] [address] Essential hypertension (Primary Dx); Pure hypercholesterolemia; Palpitations Social History Tobacco Use Types Packs/Day [...] on file 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 Gender Identity Not on file Sexual Orientation Not on file documented as of this encounter Last Filed Vital Signs Vital Sign Reading Time Taken Comments Blood Pressure 124/82 05/02/2023 2:13 PM CDT Pulse 80 05/02/2023 2:13 PM CDT Temperature - - Respiratory Rate - - Oxygen Saturation - - Inhaled Oxygen Concentration - - Weight 74.3 kg (163 lb 12.8 oz) 05/02/2023 2:13 PM CDT Height 149.9 cm (4' 11 ) 05/02/2023 2:13 PM CDT Body Mass Index 33.08 05/02/2023 2:13 PM CDT documented in this encounter Progress Notes * Liv Nelson MD - 05/02/2023 2:15 PM CDT Cardiology note Reason for Office Visit: Chief Complaint Patient presents with Follow-up HTN History of Present Illness: Shivani Betancur is a 57 y.o. female is here for follow up. She went to ED at [facility] in March 2023 for fatigue and Malaise and was discharged. She is doing well with no new symptoms. She continues to have some palpitations and doubles her medications, metaprolol and irbsartan. [facility] and told[facility] she can not do estradiol as it increase her blood pressure. She received some pellet therapy, her last one in January. She thinks she may still be under its influence. She thinks its all hormonal.I am not sure of any of this. Her blood pressure is under control today. She says she adjusts her own medicine and restricts water. Patient is staying active and performs ADLs with no limitations. She takes about 76789 steps a day. No cardiac issues or symptoms. Denies any chest discomfort, dysnea,palpitations, dizziness, fatigue or claudication. No hospitalizations. He denies any PND or Orthopnea or swelling. Patient is compliant with his medications. Denies any bleeding issues. She smokes about 1 PPD. 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 PAST MEDICAL HISTORY: HTN HLD NEO on CPAP SMOKING PALPITATIONS, resolved Past Medical History: Diagnosis Date Disorder of thyroid Thyroid disease Fibrositis Fibromyalgia Gastroesophageal reflux disease GERD HX OTHER MEDICAL 1989 ; Outcome: 9 lb(s) 10 oz Female [...] Current Outpatient Medications Medication Sig Dispense Refill sjbdilmgkniqh-ifcuzef-pbjlrjgg (EXCEDRIN MIGRAINE) 250-250-65 mg per tablet 1-2 [...] daily with breakfast. NARCAN 4 mg/actuation spray,non-aerosol sjlsayzo-lqewgixbt-evcrbkyytrrnd (MAXITROL) 3.5mg/mL-10,000 unit/mL-0.1 % ophthalmic suspension nitrofurantoin [...] loss of consciousness. Vital Signs: Vitals BP 124/82 (BP Location: Left arm, Patient Position: Sitting) Pulse 80 Ht 149.9 cm (4' 11 ) Wt 74.3 kg (163 lb 12.8 oz) BMI 33.08 kg/m?? Vitals: 05/02/23 1413 BP: 124/82 Pulse: 80 Wt Readings from Last 3 Encounters: 05/02/23 74.3 kg (163 lb 12.8 oz) 04/19/23 75.8 kg (167 lb) 03/14/23 75.8 kg (167 lb 3.2 oz) Physical Exam: General: Well developed, well [...] QTc 390 ms QTC Interval ms P Randolph 18 deg QRS Randolph -10 deg T Randolph -8 deg ] Tests: 08/03/2017 Last spec [...] by: Varun Abernathy Jr., M.D. EK08/01/2017 SR Assessment: I had a detailed discussion with [...] orders for this visit: Essential hypertension (Primary) Pure hypercholesterolemia Palpitations PLAN: Continue same medication regimen. Continue tight control of blood pressure and cholesterol. Continue diet, exercise, and weight reduction. Risk factor modification strategy discussed with thepatient. It included weight reduction through exercise and dietary discretion, optimal control of hypertension, lipid status. Abstinance from tobacco use is a strong recommendation. Suggest not to self adjust medications, but she wants to take her current dose, irbasartan 150 mg once a day and Metarpolol 100 mg BID. Record and return home blood pressure measurements for a week BID. Follow up with PMD. Annual follow up or earlier with new cardiac issues or symptoms. Thank you for the consult. We will be happy to follow in this patient's care. Liv Nelson MD2:32 PM 05/02/2023 Cc:Margarito العراقي MD documented in this encounter Plan of Treatment Not on file documented as of this encounter Visit Diagnoses Diagnosis Essential hypertension- Primary Unspecified essential hypertension Pure hypercholesterolemia Palpitations documented in this encounter Care Teams Managing Jeweler Relationship Specialty Start Date End Date Margarito العراقي MD [address] [place] [address] PCP - General Family Medicine 09/04/20 Raymond eVla MD [address] [place] [address] Referring Physician Obstetrics and Gynecology 08/17/21 documented as of this encounter
--- OUTSIDE RECORDS SUMMARY | 2024-11-19 04:49 | XMS_ITS | Encounter Summary ---
Author Organization [facility] Healthcare Address [address] [place] [address] Care Team Providers Care Supervisor Of Research Name Role Phone Margarito العراقي MD Primary Care Provider [phone] Raymond Vela MD Unavailable [phone] Encounter Details Date Type Department Care Team (Late st Contact Info) Description 02/23/2022 5:05 PM CDT Lab [facility] Advanced Medicine [facility] Advanced Medicine ([facility]) [address] [place] [id number] Urbano Delacruz MD [facility] [address] Age-related osteoporosis without current pathological fracture Discharge Disposition: Discharge to home or self [...] on file 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 * Result Encounter Note - Urbano Delacruz MD - 02/24/2022 6:28 PM CDT Send note and copy of labs to patient. Dear Shivani, Your vitamin D levels are in good range. Continue taking your weekly D. We will see you in a year. documented in this encounter Plan of Treatment Not on file documented as of this encounter Procedures Procedure Name Priority Date/Time Associated Diagnosis Comments EGFR Routine 02/23/2022 5:05 PM CDT Age-related osteoporosis without current pathological fracture VITAMIN D 25 HYDROXY Routine 02/23/2022 5:05 PM CDT Age-related osteoporosis without current pathological fracture BASIC METABOLIC PANEL Routine 02/23/2022 5:05 PM CDT Age-related osteoporosis without current pathological fracture documented in this encounter Results * (ABNORMAL) eGFR (02/23/2022 5:05 PM CDT) [facility] eGFR 74(L) 90 - 130 mL/min/1. 73 m2 [facility] Comment: Interpretive Data Reference Interval Normal ?>/= [...] of Race in Diagnosing Kidney Disease, JASN 2020). The CKD-EPI equation should not be used for patients with unstable renal function and has not been validated in children and those over 70. Current interpretive data was last reviewed 2021. Blood 02/23/2022 5:05 PM CDT 02/23/2022 5:23 PM CDT us Urbano Delacruz MD LAB BLOOD ORDERABLES Final Resu lt [facility] Department [place] [address] * Basic metabolic panel (02/23/2022 5:05 PM CDT) Sodium 140 135 - 145 mmol/L [facility] Potassium, pl 4.0 3.3 - 4.9 mmol/L [facility] Chloride 103 97 - 110 mmol/L [facility] CO2 30 22 - 32 mmol/L [facility] Anion gap 7 2 - 15 mmol/L [facility] BUN 22 8 - 25 mg/dL [facility] Creatinine 0.91 0.60 - 1.10 mg/dL [facility] Glucose 96 70 - 199 mg/dL [facility] Comment: Interpretive Data Fasting glucose >/= 126 [...] 2017. Calcium 9.1 8.5 - 10.3 mg/dL [facility] Blood 02/23/2022 5:05 PM CDT 02/23/2022 5:15 PM CDT us Urbnao Delacruz MD LAB BLOOD ORDERABLES Final Resu lt Performing Organization Address City/[facility]/ZIP Co de Phone Number [facility] [place] [address] * Vitamin D 25 hydroxy (02/23/2022 5:05 PM CDT) Vitamin D 25-OH 49 30 - 80 ng/mL [facility] Blood 02/23/2022 5:05 PM CDT 02/23/2022 5:15 PM CDT us Urbano Delacruz MD LAB BLOOD ORDERABLES Final Resu lt Performing Organization Address City/[facility]/ZIP Co de Phone Number [facility] [place] [address] documented in this encounter Visit Diagnoses Diagnosis Age-related osteoporosis without current pathological fracture documented in this encounter Care Teams Supervisor Of Research Relationship Specialty Start Date End Date Margarito العراقي MD [address] [address] PCP - General Family Medicine 09/04/20 Raymond Vela MD [address] [place] [address] Referring Physician Obstetrics and Gynecology 08/17/21 documented as of this encounter
--- OUTSIDE RECORDS SUMMARY | 2024-11-19 04:49 | XMS_ITS | Encounter Summary ---
Author Organization [facility] Group Address [address] [place] [address] Care Team Providers Care Tip Mender Name Role Phone Margarito العراقي MD Primary Care Provider [phone] Raymond Vela MD Unavailable [phone] Encounter Details Date Type Department Care Team (Late st Contact Info) Description 09/28/2021 Orders Only [facility] Medical [facility] Gastroenterology at [address] [place] [address] Polina Rosa MD [address] [place] [address] [address] [place] [address] Chronic idiopathic constipation (Primary Dx) Social History Tobacco Use Types [...] on file documented as of this encounter Ordered Prescriptions Prescription Sig Dispense Quantity Refills Last Filled Start Date End Date lubiprostone (AMITIZA) 24 mcg capsuleIndications :chronic idiopathic constipation Take 1 capsule (24 mcg total) by mouth 2 (two) times a day with meals 60 capsule 11 09/28/2021 2 documented in this encounter Plan of Treatment Not on file documented as of this encounter Visit Diagnoses Diagnosis Chronic idiopathic constipation- Primary Unspecified constipation documented in this encounter Discontinued Medications Medication Sig Discontinue Reason Start Date End Da te lubiprostone (AMITIZA) 24 mcg capsule TAKE 1 CAP BY MOUTH 2 TIMES A DAY WITH MEALS Reorder 07/09/2021 09/28/2021 documented as of this encounter Historical Medications * This list may reflect changes made after this encounter. DULoxetine DR (CYMBALTA) 30 mg capsule 08/25/2021 HYDROcodone-acet aminophen (NORCO) 5-325 mg per tablet Take 1 tablet by mouth 3 (three) times a day 08/13/2021 azelastine 205.5 mcg (0.15 %) spray,non-aeroso l SPRAY 1 SPRAY INTO EACH NOSTRIL TWICE A DAY 08/01/2021 zoledronic bphw-dzcemveM-ea ter (RECLAST) 5 mg/100 mL piggyback IV every 12 months 03/25/2021 3 lubiprostone (AMITIZA) 24 mcg capsule TAKE 1 CAP BY MOUTH 2 TIMES A DAY WITH MEALS 07/09/2021 1 azelastine 205.5 mcg (0.15 %) spray,non-aeroso l azelastine 205.5 mcg (0.15 %) nasal spray SPRAY 1 SPRAY INTO EACH NOSTRIL TWICE A DAY 1 added in this encounter Care Teams Tip Mender Relationship Specialty Start Date End Date Margarito العراقي MD [address] [address] PCP - General Family Medicine 09/04/20 Raymond Vela MD [address] [place] [address] Referring Physician Obstetrics and Gynecology 08/17/21 documented as of this encounter
--- OUTSIDE RECORDS SUMMARY | 2024-11-19 04:49 | XMS_ITS | Encounter Summary ---
Author Organization [facility] Healthcare Address [address] [place] [address] Care Team Providers Care Golf Cart Maker Name Role Phone Margarito العراقي MD Primary Care Provider [phone] Raymond Vela MD Unavailable [phone] Reason for Referral * Cardiology (Routine) - Closed Specialty Diagnoses / Procedures Referred By Contac t Referred To Contact Diagnoses Palpitations Swelling Procedures Transthoracic Echo (TTE) Complete W Doppler/CF Liv Vargas MD [address] [place] [address] [address] [place] [address] Phone: tel: fax: [address] [phone] Referral ID Status Reason Start Date Expiration Date Visits Re quested Visits Authorized [id number] Closed 01/11/2024 02/09/2025 1 1 Reason for Visit * Cardiology (Routine) - Closed Specialty Diagnoses / Procedures Referred By Contac t Referred To Contact Diagnoses Palpitations Swelling Procedures Transthoracic Echo (TTE) Complete W Doppler/CF Liv Vargas MD [address] [place] [address] [address] [place] [address] Phone: tel: fax: [address] [phone] Referral ID Status Reason Start Date Expiration Date Visits Re quested Visits Authorized [id number] Closed 01/11/2024 02/09/2025 1 1 Encounter Details Date Type Department Care Team (Latest Contact Info) Description 02/08/2024 8:11 AM CDT - 02/08/2024 11:59 PM CDT Hospital Encounter [facility] Cardiology [address] [place] [id number] Palpitations; Swelling Discharge Disposition: Discharge to home or self [...] on file 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 [ 0.40 - 0.80 ] m/s DC Peak Jaciel ?0.61 ? m/s TR Peak [...] Procedure Note Clifton Michele MD - 02/08/[address] [place] [address] Echocardiogram Report Patient Name: DALE BETANCUR : [...] 0.74 [ 0.40 - 0.80 ] m/s DC Peak Jaciel 0.61 m/s TR Peak Jaciel [...] By: Clifton Michele MD 2024-02-08 15:29:48 CDT Liv Vargas MD CV ECHO PROCEDURES Final R esult documented in this encounter Visit Diagnoses Diagnosis Palpitations Swelling Localized superficial swelling, mass, or lump documented in this encounter Care Teams Golf Cart Maker Relationship Specialty Start Date End Date Margarito العراقي MD [address] [place] [address] PCP - General Family Medicine 09/04/20 Raymond Vela MD [address] [place] [address] Referring Physician Obstetrics and Gynecology 08/17/21 documented as of this encounter
--- OUTSIDE RECORDS SUMMARY | 2024-11-19 04:49 | XMS_ITS | Encounter Summary ---
Author Organization [facility] Medical Group Address [address] [place] [address] Care Team Providers Care Drying Machine Operator Package Yarns Name Role Phone Margarito العراقي MD Primary Care Provider [phone] Raymond Vela MD Unavailable [phone] Reason for Visit * Reason Comments Follow-up Hyperlipidemia Encounter Details Date Type Department Care Team (Late st Contact Info) Description 05/17/2022 1:15 PM CDT Office Visit [place] [employer] Separator Operator at [address] [address] Liv Nelson MD [address] [place] [address] [address] [place] [address] Essential hypertension (Primary Dx); Pure hypercholesterolemia; Alcohol abuse Social History Tobacco Use Types Packs/Day Years [...] on file 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 Gender Identity Not on file Sexual Orientation Not on file documented as of this encounter Last Filed Vital Signs Vital Sign Reading Time Taken Comments Blood Pressure 133/89 05/17/2022 1:14 PM CDT Pulse 75 05/17/2022 1:14 PM CDT Temperature - - Respiratory Rate 16 05/17/2022 1:14 PM CDT Oxygen Saturation - - Inhaled Oxygen Concentration - - Weight 76.7 kg (169 lb) 05/17/2022 1:14 PM CDT Height 152.4 cm (5') 05/17/2022 1:14 PM CDT Body Mass Index 33.01 05/17/2022 1:14 PM CDT documented in this encounter Progress Notes * Liv Nelson MD - 05/17/2022 1:15 PM CDT Cardiology note Reason for Office Visit: Chief Complaint Patient presents with ??? Follow-up ??? Hyperlipidemia HTN History of Present Illness: Shivani Betancur is a 56 y.o. female is here for follow up. She says is doing pretty good. She saw Liliya Ridley a couple of times for blood pressure and palpitations. She is doing well with no symptoms. Patient is staying active and performs ADLs with no limitations. She takes about [address]881 steps a day. No cardiac issues or symptoms. Denies any chest discomfort, dysnea, palpitations, dizziness, fatigueor claudication. No hospitalizations. He denies any PND or Orthopnea or swelling. Patient is compliant with his medications. Denies any bleeding issues. She smokes about 1 PPD. PAST MEDICAL HISTORY: HTN HLD NEO on CPAP SMOKING PALPITATIONS, resolved Past Medical History: Diagnosis Date ??? Disorder [...] nausea and vomiting) ??? Sleep apnea CPAP Family and Social history [...] Reaction: Itching, Nausea, ??? Lisinopril Cough Medications: Current Outpatient Medications Medication Sig Dispense Refill ??? wrsbresbsvztr-smjlcgq-yieecfdp (EXCEDRIN MIGRAINE) 250-250-65 mg per tablet 1-2 [...] breakfast. ??? NARCAN 4 mg/actuation spray,non-aerosol ??? vndshzbw-zsjwozbxm-qwcodqbsfqkfp (MAXITROL) 3.5mg/mL-10,000 unit/mL-0.1 % ophthalmic suspension ??? [...] loss of consciousness. Vital Signs: Vitals BP 133/89 (BP Location: Right arm, Patient Position: Sitting) Pulse 75 Resp 16 Ht 152.4 cm (5') Wt 76.7 kg (169 lb) BMI 33.01 kg/m?? Vitals: 05/17/22 1314 BP: 133/89 Pulse: 75 Resp: 16 Wt Readings from Last 3 Encounters: 05/17/22 76.7 kg (169 lb) 02/23/22 77.1 kg (170 lb) 01/25/22 78.1 kg (172 lb 3.2 oz) Physical Exam: General: Well [...] Duration 109 ms QRS-Interval (MSEC) 84 ms [place]-Interval (MSEC) 155 ms QT Interval 361 ms QTc 390 ms QTC Interval ms P Austin 18 deg QRS Austin -10 deg T Austin -8 deg ] Tests: 08/03/2017 Last spec thallium was negative for ischemia with EF=67% 08/02/2017 Last 2D echocardiogram showed EF= 60-65% CHol 206 HDL 38 TG 318 LDL 104 08/02/2017 ALT 14 AST 15 01/2019 STress negative EK08/01/2017 SR Assessment: I had a detailed [...] this visit: Essential hypertension (Primary) Pure hypercholesterolemia Alcohol abuse 05/17/2022 PLAN: Continue same medication regimen. Continue tight control of blood pressure and cholesterol. Continue diet, exercise, and weight reduction. Risk factor modification strategy discussed with thepatient. It included weight reduction through exercise and dietary discretion, optimal control of hypertension, lipid status. Abstinance from tobacco use is a strong recommendation. Annual follow up or earlier with new cardiac issues or symptoms. Thank you for the consult. We will be happy to follow in this patient's care. Liv Nelson MD1:28 PM Cc:Margarito العراقي MD documented in this encounter Plan of Treatment Not on file documented as of this encounter Visit Diagnoses Diagnosis Essential hypertension- Primary Unspecified essential hypertension Pure hypercholesterolemia Alcohol abuse Nondependent alcohol abuse, unspecified drinking behavior documented in this encounter Care Teams Drying Machine Operator Package Yarns Relationship Specialty Start Date End Date Margarito العراقي MD [address] [address] PCP - General Family Medicine 09/04/20 Raymond Vela MD [address] [place] [address] Referring Physician Obstetrics and Gynecology 08/17/21 documented as of this encounter
--- OUTSIDE RECORDS SUMMARY | 2024-11-19 04:49 | XMS_ITS | Encounter Summary ---
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 Gender Identity Not on file Sexual Orientation Not on file documented as of this encounter Miscellaneous Notes * Telephone Encounter - Luz Forde MA - 01/12/2024 2:39 PM CST LM on patient's VM letting her know about the testing that was ordered GN ENGINEER * Telephone Encounter - Luz Forde MA - 01/09/2024 4:01 PM CST Patient left message stating that she had been having some left sided swelling which has gone down.She advised that she had been feeling fatigued and exhausted but her PCP didn't think it was anything to be concerned about it but she wanted to know if she should be seen here for assessment. Please advise. GN ENGINEER documented in this encounter Plan of Treatment Not on file documented as of this encounter Visit Diagnoses Not on filedocumented in this encounter Care Teams Head Baggage Porter Relationship Specialty Start Date End Date Margarito العراقي MD [address] [place] [address] PCP - General Family Medicine 09/04/20 Raymond Vela MD [address] [place] [address] Referring Physician Obstetrics and Gynecology 08/17/21 documented as of this encounter
--- OUTSIDE RECORDS SUMMARY | 2024-11-19 04:49 | XMS_ITS | Encounter Summary ---
Author Organization [facility] Healthcare Address [facility] [place] [address] Care Team Providers Care Assurance Analyst Name Role Phone Margarito العراقي MD Primary Care Provider [phone] Raymond Vela MD Unavailable [phone] Encounter Details Date Type Department Care Team (Late st Contact Info) Description 07/02/2022 2:45 PM CDT Lab [facility] 1 [place] [address] Jones Younger MD [address] [place] [address] [address] [place] [address] Corina Zambrano, [facility] [address] [facility] [address] [place] [address] Ptosis of left eyelid Discharge Disposition: Discharge to home or self [...] on file 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 Gender Identity Not on file Sexual Orientation Not on file documented as of this encounter Discharge Disposition Disposition Code Departure Means Destination Discharge to home or self care documented in this encounter Plan of Treatment Not on file documented as of this encounter Procedures Procedure Name Priority Date/Time Associated Diagnosis Comments T4, FREE Routine 07/02/2022 2:43 PM CDT Ptosis of left eyelid documented in this encounter Results * T4, free (07/02/2022 2:43 PM CDT) Free T4 1.19 0.90 - 1.70 ng/dL [facility] ([facility]) Blood 07/02/2022 2:43 PM CDT 07/02/2022 3:21 PM CDT us Corina Zambrano DNP LAB BLOOD ORDERABLES Final Resu lt [facility] ([place]) [address] [facility] Department [place] [address] documented in this encounter Visit Diagnoses Diagnosis Ptosis of left eyelid Unspecified ptosis of eyelid documented in this encounter Care Teams Assurance Analyst Relationship Specialty Start Date End Date Margarito العراقي MD [address] [place] [address] PCP - General Family Medicine 09/04/20 Raymond Vela MD [address] [place] [address] Referring Physician Obstetrics and Gynecology 08/17/21 documented as of this encounter
--- OUTSIDE RECORDS SUMMARY | 2024-11-19 04:49 | XMS_ITS | Encounter Summary ---
Author Organization [facility] Healthcare Address [facility] [place] [address] Care Team Providers Care Hot Tamale Man Name Role Phone Margarito العراقي MD Primary Care Provider [phone] Raymond Vela MD Unavailable [phone] Reason for Referral * MRI/CAT/PET Scan (Routine) - Closed Specialty Diagnoses / Procedures Referred By Val adkins Referred To Contact Radiology Diagnoses Meningioma (HCC) Procedures MRI Brain W WO Contrast Corina Zambrano DNP Phone: tel: fax: [address] [address] Referral ID Status Reason Start Date Expiration Date Visits Re quested Visits Authorized [id number] Closed 01/25/2022 02/24/2023 1 1 Reason for Visit * MRI/CAT/PET Scan (Routine) - Closed Specialty Diagnoses / Procedures Referred By Val adkins Referred To Contact Radiology Diagnoses Meningioma (HCC) Procedures MRI Brain W WO Contrast Corina Zambrano DNP Phone: tel: fax: [address] [address] Referral ID Status Reason Start Date Expiration Date Visits Re quested Visits Authorized [id number] Closed 01/25/2022 02/24/2023 1 1 Encounter Details Date Type Department Care Team (Late st Contact Info) Description 03/24/2022 9:43 AM CDT - 03/24/2022 11:59 PM CDT Hospital Encounter [facility] 1 [place] [address] Jones Younger MD [address] [facility] [address] [place] [address] Corina Zambrano DNP [address] [facility] [address] [place] [address] Meningioma (HCC) Discharge Disposition: Discharge to home or self [...] on file 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 Gender Identity Not on file [...] daily 90 tablet 3 1 05/03/20 22 meloxicam (MOBIC) 15 mg tablet meloxicam 15 mg tablet 02/24/20 23 metoprolol tartrate (LOPRESSOR) 50 mg immediate release tablet Take 1 tablet (50 mg total) by mouth 2 (two) times a day 180 tablet 3 1 10/20/20 22 rOPINIRole (REQUIP) 1 mg tablet 1 mg 0 06/30/20 22 zoledronic savl-wwkjeriK-fmn er (RECLAST) 5 mg/100 mL piggyback IV every 12 months 1 02/24/20 23 zolpidem (AMBIEN) 10 mg tablet TAKE 1 TABLET BY MOUTH EVERYDAY AT BEDTIME 30 tablet 5 2 08/26/20 22 documented as of this encounter Discharge Disposition Disposition Code Departure Means Destination Discharge to home or self care documented in this encounter Miscellaneous Notes * Result Encounter Note - Debbi Aguilar MA - 03/24/2022 1:37 PM CDT Pt stated understanding. * Result Encounter Note - Debbi Aguilar MA - 03/24/2022 11:50 AM CDT Will call pt again pt doesn't have VM set up. * Result Encounter Note - Corina Zambrano NP - 03/24/2022 11:22 AM CDT Let her know that MRI brain showed her known meningioma was stable without change in the size. Sandra. documented in this encounter Plan of Treatment Not on file documented as of this encounter Procedures Procedure Name Priority Date/Time Associated Diagnosis Comments MRI BRAIN W WO CONTRAST Schedule Routine, Read Routine (OP Routine) 03/24/2022 10:46 AM CDT Meningioma (HCC) documented in this encounter Results * MRI Brain W [...] AM T: ??03/24/2022 11:17 AM Report ID: [id number] Reading Location: ??[id number] Procedure Note Jb Franco MD - 03/24/2022 [...] Jb Franco M.D. FREDDIE: FREDDIE Report ID: [id number] Reading Location: [place] [address] Corina Zambrano DNP [facility] MRI PROCEDURES Final Result documented in this encounter Visit Diagnoses Diagnosis Meningioma (HCC) Benign neoplasm of cerebral meninges documented in this encounter Administered Medications Inactive Administered Medications - up to 3 most recent administrations Medication Order MAR Action Action Date Dose Rate Site gadoterate meglumine 0.5 mmol/mL injection 15 mL 15 mL, intravenous, Once in imaging, contrast, Starting on Tue03/24/22 at 1046, For 1 dose Contrast Given 03/24/2022 10:47 AM CDT 15 mL documented in this encounter Care Teams Hot Tamale Man Relationship Specialty Start Date End Date Margarito العراقي MD [address] [place] [address] PCP - General Family Medicine 09/04/20 Raymond Vela MD [address] [place] [address] Referring Physician Obstetrics and Gynecology 08/17/21 documented as of this encounter
--- OUTSIDE RECORDS SUMMARY | 2024-11-19 04:49 | XMS_ITS | Encounter Summary ---
Author Organization [facility] Healthcare Address [address] [place] [address] Care Team Providers Care Ordnance Keeper Name Role Phone Margarito العراقي MD Primary Care Provider [phone] Raymond Vela MD Unavailable [phone] Reason for Referral * Cardiology (Routine) - Closed Specialty Diagnoses / Procedures Referred By Contac t Referred To Contact Diagnoses Palpitations Procedures MCT Mobile Cardiac Telemetry Event Monitor Liv Vargas MD [address] [place] [address] DR BRICE[address]O [address] [place] [address] Phone: tel: fax: [address] [address] Referral ID Status Reason Start Date Expiration Date Visits Re quested Visits Authorized [id number] Closed 01/30/2024 02/28/2025 1 1 Reason for Visit * Reason Comments Dizziness Encounter Details Date Type Department Care Team (Late st Contact Info) Description 01/30/2024 2:30 PM CDT Office Visit [place] [facility] at [facility] [address] [place] [address] Liv Vargas MD [address] [place] [address] DR BRICE[address]O [address] [place] [address] Essential hypertension (Primary Dx); Pure hypercholesterolemia; Palpitations; Dizziness; NEO (obstructive sleep apnea) Social History Tobacco Use Types Packs/Day Years [...] on file 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 Gender Identity Not on file Sexual Orientation Not on file documented as of this encounter Last Filed Vital Signs Vital Sign Reading Time Taken Comments Blood Pressure 143/92 01/30/2024 2:54 PM CDT Pulse 85 01/30/2024 2:54 PM CDT Temperature - - Respiratory Rate - - Oxygen Saturation - - Inhaled Oxygen Concentration - - Weight 73.5 kg (162 lb) 01/30/2024 2:54 PM CDT Height 149.9 cm (4' 11 ) 01/30/2024 2:54 PM CDT Body Mass Index 32.72 01/30/2024 2:54 PM CDT documented in this encounter Progress Notes * Liv Vargas MD - 01/30/2024 2:30 PM CDT Cardiology note Reason for Office Visit: Chief Complaint Patient presents with Dizziness HTN History of Present Illness: Dale Betancur is a 58 y.o. female is here for follow up. She continues to have high and low blood pressures at home as she feels her heart beat. She also watches her watch and record blood pressure.She feels dizzy and once passed out once in the middle of December, did not seek medical attention.She walked to the bathroom, turned the corner and felt dizzy and fell. Daughter was there, fell with dizziness, not sure of losing consciousness. Patient is staying active and performs ADLs with no limitations. She takes about 7[address]96 steps a day. No cardiac issues or symptoms. Denies any chest discomfort, dysnea, palpitations, dizziness, fatigue or claudication. No hospitalizations. He denies any PND or Orthopnea or swelling. Patient is compliant with his medications. Denies any bleeding issues.She smokes about 1 PPD. 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 She uses CPAP for sleep. PAST MEDICAL [...] 11/27/2015 - HX OTHER MEDICAL neuropathy; Comments: [facility] 11/27/2015 - Hyperlipidemia Hypertension Hypertension Hypertension [...] Current Outpatient Medications Medication Sig Dispense Refill gdlawddeflalt-epdvqqs-mpmcvfwh (EXCEDRIN MIGRAINE) 250-250-65 mg per tablet 1-2 [...] daily with breakfast. NARCAN 4 mg/actuation spray,non-aerosol jkqnvomx-ybmbmcfmy-gvshycknnqhll (MAXITROL) 3.5mg/mL-10,000 unit/mL-0.1 % ophthalmic suspension nitrofurantoin [...] loss of consciousness. Vital Signs: Vitals BP 143/92 (BP Location: Right arm, Patient Position: Sitting) Pulse 85 Ht 149.9 cm (4' 11 ) Wt 73.5 kg (162 lb) BMI 32.72 kg/m?? Vitals: 01/30/24 1454 BP: 143/92 Pulse: 85 Wt Readings from Last 3 Encounters: 01/30/24 73.5 kg (162 lb) 10/28/23 74.8 kg (165 lb) 05/02/23 74.3 kg (163 lb 12.8 oz) Physical Exam: General: Well developed, well [...] Duration 109 ms QRS-Interval (MSEC) 84 ms [place]-Interval (MSEC) 155 ms QT Interval 361 ms QTc 390 ms QTC Interval ms P [place] 18 deg QRS [place] -10 deg T [place] -8 deg ] Tests: 08/03/2017 Last spec [...] visit: Essential hypertension (Primary) Pure hypercholesterolemia Palpitations Dizziness PLAN: Continue same medication regimen. Continue tight [...] a week BID. Follow up with PMD. 21 day event monitor. ECHO is scheduled. Fall and injury prevention precautions explained. Follow up with me 1 months or earlier with new symptoms. Thank you for the consult. We will be happy to follow in this patient's care. Liv Vargas MD3:07 PM 05/02/2023 Cc:Margarito العراقي MD documented in this encounter Miscellaneous Notes * Addendum Note - Franky Jimenez - 01/30/2024 2:30 PM CDTAddended by: FRANKY JIMENEZ on: 01/30/2024 03:14 PM Modules accepted: Orders documented in this encounter Plan of Treatment Not on file documented as of this encounter Results * MCT Mobile Cardiac Telemetry Event Monitor (02/08/2024 8:45 AM CDT) Anatomical Region Laterality Modality Electrocardiogra phy 02/08/2024 9:30 AM CDT Narrative 03/05/2024 5:43 PM CDT [address] [address] EVENT MONITOR Patient Name: DALE BETANCUR J [...] Procedure Note Jasvir Choi MD - 03/05/[address] [place] [address] EVENT MONITOR Patient Name: DALE BETANCUR J [...] documented in this encounter Visit Diagnoses Diagnosis Essential hypertension- Primary Unspecified essential hypertension Pure hypercholesterolemia Palpitations Dizziness Dizziness and giddiness NEO (obstructive sleep apnea) Obstructive sleep apnea (adult) (pediatric) Palpitations documented in this encounter Care Teams Ordnance Keeper Relationship Specialty Start Date End Date Margarito العراقي MD [address] [place] [address] PCP - General Family Medicine 09/04/20 Raymond Vela MD [address] [place] [address] Referring Physician Obstetrics and Gynecology 08/17/21 documented as of this encounter
--- OUTSIDE RECORDS SUMMARY | 2024-11-19 04:49 | XMS_ITS | Encounter Summary ---
Author Organization [facility] Healthcare Address [address] [place] [address] Care Team Providers Care Overlock Hemmer Name Role Phone Margarito العراقي MD Primary Care Provider [phone] Raymond Vela MD Unavailable [phone] Reason for Visit * Auth/Cert (Routine) Specialty Diagnoses / Procedures Referred By Contac t Referred To Contact Diagnoses Encounter for screening colonoscopy Encounter for screening colonoscopy [Z12.11] Procedures RI COLONOSCOPY FLX DX W/COLLJ SPEC WHEN PFRMD COLONOSCOPY Referral ID Status Reason Start Date Expiration Date Visits Re quested Visits Authorized [id number] 1 1 Encounter Details Date Type Department Care Team (Latest Contact Info) Description 02/23/2023 9:36 AM CDT - 02/23/2023 1:20 PM CDT Hospital Encounter [facility] [address] [place] [address] Polina Rosa MD [address] [place] [address] Discharge Disposition: Discharge to home or self [...] Frequency of Binge Drinking Not on file 11/1 12/2020 Personal Safety Answer Date Recorded Have you ever been in or are you currently in a harmful physical or emotional relationship or is someone making you feel afraid or unsafe? 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 Gender Identity Not on file Sexual Orientation Not on file documented as of this encounter Last Filed Vital Signs Vital Sign Reading Time Taken Comments Blood Pressure 149/90 02/23/2023 1:00 PM CDT Pulse 79 02/23/2023 1:00 PM CDT Temperature 37 ??C (98.6 ??F) 02/23/2023 1:00 PM CDT Respiratory Rate 16 02/23/2023 1:00 PM CDT Oxygen Saturation 99% 02/23/2023 1:00 PM CDT Inhaled Oxygen Concentration - - Weight 73.5 [...] - 02/23/2023 9:55 AM CDTAssociated Order(s): COLONOSCOPY [facility] Patient Name: Shivani Betancur Procedure Date: 02/23/2023 9:55 AM Date of : 1965 Admit Type: Outpatient Age: 57 Gender: Female Attending MD: Polina Rosa M.D. Room: [facility] ENDOSCOPY ROOM 1 Note Status: Finalized Patient [...] under direct vision. The Pediatric Colonoscope PCF-H190L [id number] was introduced through the anus and advanced [...] 9:55 AM Procedure Code(s): --- Professional --- 06992, Colonoscopy, flexible; diagnostic, including collection of specimen(s) by brushing or washing, when performed (separate procedure) Diagnosis Code(s): --- Professional --- Z12.11, Encounter for screening for malignant neoplasm of colon K64.8, Other hemorrhoids K57.30, Diverticulosis of large intestine without perforation or abscess without bleeding CPT copyright 2020 [employer]. All rights reserved. The codes documented in this report are preliminary and upon paste thinner review may be revised to meet current compliance requirements. Recognized by the [employer] for promoting quality in endoscopy documented in this encounter Miscellaneous Notes * Perioperative Nursing Note - Nickolas Pedraza RN - 02/23/2023 12:[address] Rosa spoke with the patient about the procedure.patient [...] Female Attending MD: Polina Rosa M.D. Room: [facility] END[facility]COPY [facility] 1 Note Status: Finalized Patient [...] under direct vision. The Pediatric Colonoscope PCF-H190L [id number] was introducedthrough the anus and advanced to [...] 9:55 AM Procedure Code(s): --- Professional --- 37510, Colonoscopy, flexible; diagnostic, including collection of specimen(s) by brushing or washing, when performed (separateprocedure) Diagnosis Code(s): --- Professional --- Z12.11, Encounter for screening for malignant neoplasm of colon K64.8, Other hemorrhoids K57.30, Diverticulosis of large intestine without perforation orabscess without bleeding CPT copyright 2020 [employer]. All rights reserved. The codes documented in this report are preliminary and upon paste thinner reviewmay be revised to meet current compliance requirements. Recognized by the [employer] for promoting quality in endoscopy us Polina Rosa MD ENDOSCOPY PROCEDURES Final Result documented in this encounter Visit Diagnoses Diagnosis Encounter for screening colonoscopy- Primary documented in this encounter Admitting Diagnoses Diagnosis [...] 15 mg tablet Therapy completed 023 zoledronic xrzo-yiczaxuE-pghza (RECLAST) 5 mg/100 mL piggyback IV every [...] Nickolas Pedraza RN)1211 (Rate/Dose Verify - Provider: Zelalem Lackey CRNA)1220 (Paused - Provider: Zelalem Lackey [...] 02/23/2023 documented in this encounter Care Teams Overlock Hemmer Relationship Specialty Start Date End Date Margarito العراقي MD [address] [place] [address] PCP - General Family Medicine 09/04/20 Raymond Vela MD [address] [place] [address] Referring Physician Obstetrics and Gynecology 08/17/21 documented as of this encounter
--- OUTSIDE RECORDS SUMMARY | 2024-11-19 04:50 | XMS_ITS | Encounter Summary ---
Author Organization [facility] Address [address] [place] [address] Care Team Providers Care Lingo Cleaner Name Role Phone Margarito العراقي MD Primary Care Provider Reason for Visit * Reason Comments Follow-up Hypertension Encounter Details Date Type Department Care Team (Late st Contact Info) Description 06/12/2021 8:45 AM CDT Office Visit [place] [facility] [address] [place] [address] Liliya Ridley, KIM [address] [facility] [address] [place] [address] Essential hypertension (Primary Dx); Obstructive sleep apnea syndrome; Alcohol abuse; Tobacco abuse Social History Tobacco Use Types Packs/Day Years Used Date Smoking Tobacco: Every Day Cigarettes Smokeless Tobacco: Never Alcohol Use Standard Drinks/Week Comments No 0 (1 standard drink = 0.6 oz pur e alcohol) Comments No Sex and Gender Information Value Date Recorded Sex Assigned at Not on file 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 Gender Identity Not on file Sexual Orientation Not on file documented as of this encounter Last Filed Vital Signs Vital Sign Reading Time Taken Comments Blood Pressure 155/101 06/12/2021 8:59 AM CDT Pulse 76 06/12/2021 8:59 AM CDT Temperature - - Respiratory Rate 14 06/12/2021 8:59 AM CDT Oxygen Saturation - - Inhaled Oxygen Concentration - - Weight 72.6 kg (160 lb) 06/12/2021 8:59 AM CDT Height 152.4 cm (5') 06/12/2021 8:59 AM CDT Body Mass Index 31.25 06/12/2021 8:59 AM CDT documented in this encounter Progress Notes * Keyana Liliya Cyndi, FULL STACK NET DEVELOPER - 06/12/2021 8:45 AM CDT Cardiology note Reason for Office Visit: No chief complaint on file. History of Present Illness: Shivani Betancur is a 55 y.o. female with history of hypertension and hyperlipidemia. Has been known to have chest pain in the past but was not had negative stress tests in 2017 in 2019. Presents to the office after having issues with high blood pressure since this past winter. She she saw a physician in [facility] [place] that took her off her Bystolic and [...] of breath, occasional cramps in her legs. Past Medical History: Diagnosis Date ??? Disorder [...] Coronary artery disease; ??? Stroke Other Stroke; Social History Tobacco Use ??? Smoking status: [...] medication list which includes the following prescription(s): yozrletkjooyx-dgijepk-gpnhravo (EXCEDRIN MIGRAINE), aspirin, atorvastatin (LIPITOR), cyclobenzaprine (FLEXERIL), duloxetinedr (CYMBALTA), estrace, hydrocodone-acetaminophen (NORCO), irbesartan (AVAPRO), isosorbide mononitrate er (IMDUR), lubiprostone (AMITIZA), narcan, vfrzmxjd-yanbmhjik-ervpjsxtjdqnj (MAXITROL), nitrofurantoin monohydrate (MACROBID), omeprazole (PRILOSEC), pen needle, diabetic (BD ULTRA-FINE MINI PEN NEEDLE), quetiapine (SEROQUEL), and zolpidem (AMBIEN). Current Outpatient Medications Medication Sig Dispense Refill ??? ehedninilbbpl-herlklx-tgtnpqhe (EXCEDRIN MIGRAINE) 250-250-65 mg per tablet 1-2 [...] breakfast. ??? NARCAN 4 mg/actuation spray,non-aerosol ??? fzuuryqo-nilyzozxp-okpombvbeegue (MAXITROL) 3.5mg/mL-10,000 unit/mL-0.1 % ophthalmic suspension ??? [...] facility-administered medications for this visit. Vital Signs: There were no vitals taken for this visit. There were no vitals filed for this visit. Wt Readings from Last 3 Encounters: 06/08/21 70.8 kg (156 lb) 01/23/21 76.7 kg (169 lb) 11/28/20 73 kg (161 lb) Physical Exam: Physical Exam Constitutional: General: [...] oriented to person, place, and time. Labs: Recent Labs Lab Units 06/08/21 2100 WBC K/cumm 12.6* HEMOGLOBIN g/dL 15.2 HEMATOCRIT % 46.2* PLATELETS K/cumm 309 Lab Results Component Value Date CHOL 133 [...] Duration 109 ms QRS-Interval (MSEC) 84 ms [place]-Interval (MSEC) 155 ms QT Interval 361 ms QTc 390 ms QTC Interval ms P [place] 18 deg QRS [place] -10 deg T Guin -8 deg ] Tests: 08/03/2017 Last spec [...] Tobacco Use [Z72.0] Mixed Hyperlipidemia [E78.2] Plan: Diagnoses and all orders for this visit: Essential hypertension (Primary) Obstructive sleep apnea syndrome Alcohol abuse Tobacco abuse 06/12/2021 Decrease irbesartan 75mg BID HCTZ 25mg in AM toprol 25 BID Pt to bring blood pressure log No follow-ups on file. Dr. Martin Thank you for the consult. We will be happy to follow in this patient's care. Liliya Ridley NP7:18 AM Cc:Margarito العراقي MD documented in this encounter Plan of Treatment Not on file documented as of this encounter Visit Diagnoses Diagnosis Essential hypertension- Primary Unspecified essential hypertension Obstructive sleep apnea syndrome Obstructive sleep apnea (adult) (pediatric) Alcohol abuse Nondependent alcohol abuse, unspecified drinking behavior Tobacco abuse Tobacco use disorder documented in this encounter Care Teams Lingo Cleaner Relationship Specialty Start Date End Date Margarito العراقي MD [address] [place] [address] PCP - General Family Medicine 09/04/20 documented as of this encounter
--- OUTSIDE RECORDS SUMMARY | 2024-11-19 04:50 | XMS_ITS | Encounter Summary ---
Author Organization [facility] Healthcare Address [address] [place] [address] Care Team Providers Care Group Burner Machine Name Role Phone Margarito العراقي MD Primary Care Provider Encounter Details Date Type Department Care Team (Latest Contact Info) Description 07/30/2021 12:05 AM CDT - 07/30/2021 11:59 PM CDT Hospital Encounter [facility] [address] [place] [phone] Discharge Disposition: Discharge to home or self care Social History Tobacco Use Types Packs/Day Years Used Date Smoking Tobacco: Every Day Cigarettes Smokeless Tobacco: Never Alcohol Use Standard Drinks/Week Comments No 0 (1 standard drink = 0.6 oz pur e alcohol) Comments No Sex and Gender Information Value Date Recorded Sex Assigned at Not on file 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 Gender Identity Not on file Sexual Orientation Not on file documented as of this encounter Medications at Time of Discharge cyclobenzaprine (FLEXERIL) 10 mg tablet Take 1 tablet (10 mg total) by mouth 3 (three) times a day as needed 10/28/2017 ergocalciferol (VITAMIN D) 50,000 unit capsule ergocalciferol (vitamin D2) 1,250 mcg (50,000 unit) capsule TAKE 1 CAPSULE BY MOUTH ONCE PER WEEK NARCAN 4 mg/actuation spray,non-aeros ol 10/02/2019 pregabalin (LYRICA) 75 mg capsule Take 1 capsule (75 mg total) by mouth daily 02/05/2020 aspirin 81 mg enteric coated tablet TAKE ONE TABLET BY MOUTH ONCE DAILY 90 tablet 1 02/11/2020 3 atorvastatin (LIPITOR) 20 mg tablet TAKE ONE TABLET BY MOUTH ONCE DAILY 90 tablet 1 05/06/2020 4 cholecalciferol (VITAMIN D-3) 1000 unit tablet Take 1,000 Units by mouth daily 3 clobetasoL (TEMOVATE) 0.05 % ointment clobetasol 0.05 % topical ointment APPLY THIN COAT TO AFFECTED AREA TWICE A DAY 3 denosumab (PROLIA) 60 mg/mL syringe Inject 60 mg under the skin every 6 (six) months 3 hydroCHLOROthia zide (HYDRODIURIL) 25 mg tablet Take 1 tablet (25 mg total) by mouth daily 90 tablet 3 06/25/2021 2 irbesartan (AVAPRO) 75 mg tablet TAKE TWO TABLETS BY MOUTH NIGHTLY 60 tablet 4 04/22/2021 1 lubiprostone (AMITIZA) 24 mcg capsule TAKE 1 CAP BY MOUTH 2 TIMES A DAY WITH MEALS 07/09/2021 1 metoprolol XL (TOPROL-XL) 25 mg extended release tablet TAKE 1 TABLET BY MOUTH TWICE A DAY 60 tablet 29 06/17/2021 1 rOPINIRole (REQUIP) 1 mg tablet 1 mg 11/20/2020 2 zoledronic ftij-jmwjgjnP-g ater (RECLAST) 5 mg/100 mL piggyback IV every 12 months 03/25/2021 3 zolpidem (AMBIEN) 10 mg tabletIndicatio ns:Sleep-Onset Insomnia Take 1 tablet (10 mg total) by mouth nightly as needed for sleep 30 tablet 5 11/28/2020 2 documented as of this encounter Discharge Disposition Disposition Code Departure Means Destination Discharge to home or self care documented in this encounter Plan of Treatment Not on file documented as of this encounter Procedures Procedure Name Priority Date/Time Associated Diagnosis Comments BREAST IMAGING OUTSIDE REFERENCE Routine 07/30/2021 12:05 AM CDT documented in this encounter Results * Breast Imaging Outside Reference (07/30/2021 12:05 AM CDT) Impressions [facility] - 08/06/2021 11:07 AM CDT These images are for Reference purposes only and have not been reviewed by [facility] Radiology. ??There will be no report generated by a [facility] Radiologist. Narrative [facility] - 08/06/2021 11:07 AM CDT EXAMINATION: ??Images For Reference Purposes Only us Nancy Gonzalez BUSINESS PROPOSAL REP IMG MAMMO PROCEDURES Final R esult [facility] documented in this encounter Visit Diagnoses Not on filedocumented in this encounter Care Teams Group Burner Machine Relationship Specialty Start Date End Date Margarito العراقي MD [address] [place] [address] PCP - General Family Medicine 09/04/20 documented as of this encounter
--- OUTSIDE RECORDS SUMMARY | 2024-11-19 04:50 | XMS_ITS | Encounter Summary ---
Author Organization [facility] Address [address] [place] [address] Phone Care Team Providers Care Oxygen Furnace Operator Name Role Phone Margarito لاعراقي MD Primary Care Provider [phone] Encounter Details Date Type Department Care Team (Late st Contact Info) Description 11/05/2020 Telephone [facility] [address] 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 Urbano Delacruz MD P [facility] ?Send copy of note to PCP sent TOR documented in this encounter Plan of Treatment Not on file documented as of this encounter Visit Diagnoses Not on filedocumented in this encounter Care Teams Oxygen Furnace Operator Relationship Specialty Start Date End Date Margarito العراقي MD [address] [place] [address] PCP - General Family Medicine 09/04/20 documented as of this encounter
--- OUTSIDE RECORDS SUMMARY | 2024-11-19 04:50 | XMS_ITS | Encounter Summary ---
Author Organization [facility] Healthcare Address [address] [place] [address] Care Team Providers Care Tool Grinder Operator Name Role Phone Margarito العراقي MD Primary Care Provider Encounter Details Date Type Department Care Team (Latest Contact Info) Description 08/11/2021 9:11 PM CDT - 08/11/2021 11:59 PM CDT Hospital Encounter [facility] [address] [place] [id number] Abnormal mammography Discharge Disposition: Discharge to home or self care Social History Tobacco Use Types Packs/Day Years Used Date Smoking Tobacco: Every Day Cigarettes Smokeless Tobacco: Never Alcohol Use Standard Drinks/Week Comments No 0 (1 standard drink = 0.6 oz pur e alcohol) Comments No Sex and Gender Information Value Date Recorded Sex Assigned at Not on file 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 Gender Identity Not on file Sexual [...] mg tablet 1 mg 11/20/2020 2 zoledronic caak-kfxhivtP-t ater (RECLAST) 5 mg/100 mL piggyback IV [...] Date/Time Associated Diagnosis Comments BREAST IMAGING OUTSIDE CONSULT Routine 08/11/2021 9:11 PM CDT Abnormal mammography documented in this encounter Results * Breast Imaging Outside Consult (08/11/2021 9:11 PM CDT) Anatomical Region Laterality Modality Breast N/A Mammography 08/12/2021 9:20 AM CDT Impressions 08/12/2021 11:02 AM CDT Stable focal asymmetry in the lower inner quadrant of the LEFT breast, for which outside hospital ultrasound reportedly found an irregular 7 mm mass at the 1 o'clock position 2 cm from the nipple. ??Recommend repeat LEFT breast ultrasound for further evaluation. RECOMMENDATION: Additional imaging - LEFT breast ultrasound evaluation. NOTE: The findings, conclusions and recommendations within this report do not replace the initial findings, conclusions and recommendations made at the facility where the study was performed based upon the imaging and clinical condition at that time. ??Review of the prior report and correlation with the clinical history are necessary. The provided images may or may not represent the [place] source data set and thus may contain changes which may lower the sensitivity of the second opinion interpretation. Dictated by: Pravin Fowler M.D. The radiology attending physician has personally reviewed this study, and had reviewed and/or edited this written report and agrees with it. Electronically signed by: Purnima Rhodes M.D. Narrative 08/12/2021 11:02 AM CDT EXAMINATION: REVIEW AND INTERPRETATION OF OUTSIDE IMAGING FACILITY PERFORMING OUTSIDE IMAGING: [facility] EXAM(S) REVIEWED: 1. ??BILATERAL SCREENING MAMMOGRAM WITH TOMOSYNTHESIS, 8 images, 06/25/2021 2. ??LEFT UNILATERAL DIAGNOSTIC MAMMOGRAM WITH TOMOSYNTHESIS, 8 images, 07/30/2021 DATE OF INTERPRETATION: 08/12/2021 PHYSICIAN REQUESTING REVIEW: Dr. Obrien, who is seeing the patient in the Breast Surgery Clinic. HISTORY: 55-year-old woman presenting for evaluation of outside hospital screen detected mass in the lower inner quadrant of the LEFT breast.. COMPARISON: 02/05/2020, 01/15/2020 and 11/25/2015. BREAST PARENCHYMAL COMPOSITION: There are scattered areas of fibroglandular density. FINDINGS: On screening mammogram dated 06/25/2021, there is a focal asymmetry in the lower inner quadrant of the LEFT breast, which appears unchanged from multiple prior mammograms dating back to 11/25/2015. ??No suspicious abnormality in the RIGHT breast. On diagnostic mammogram dated 07/30/2021, again seen is a focal asymmetry in the lower inner quadrant of the LEFT breast. Outside hospital ultrasound on 02/05/2020 reportedly found an irregular, anti-parallel mass in the LEFT breast that measured 4 x 7 mm at the 1 o'clock position 2 cm from the nipple. Procedure Note Purnima Rhodes MD - 08/12/2021 EXAMINATION: REVIEW AND INTERPRETATION OF OUTSIDE IMAGING FACILITY PERFORMING OUTSIDE IMAGING: [facility] EXAM(S) REVIEWED: 1. BILATERAL SCREENING MAMMOGRAM WITH TOMOSYNTHESIS, 8 images, 06/25/2021 2. LEFT UNILATERAL DIAGNOSTIC MAMMOGRAM WITH TOMOSYNTHESIS, 8 images, 07/30/2021 DATE OF INTERPRETATION: 08/12/2021 PHYSICIAN REQUESTING REVIEW: Dr. Obrien, who is seeing the patient in the Breast Surgery Clinic. HISTORY: 55-year-old woman presenting for evaluation of outside hospital screen detected mass in the lower inner quadrant of the LEFT breast.. COMPARISON: 02/05/2020, 01/15/2020 and 11/25/2015. BREAST PARENCHYMAL COMPOSITION: There are scattered areas of fibroglandular density. FINDINGS: On screening mammogram dated 06/25/2021, there is a focal asymmetry in the lower inner quadrant of the LEFT breast, which appears unchanged from multiple prior mammograms dating back to 11/25/2015. No suspicious abnormality in the RIGHT breast. On diagnostic mammogram dated 07/30/2021, again seen is a focal asymmetry in the lower inner quadrant of the LEFT breast. Outside hospital ultrasound on 02/05/2020 reportedly found an irregular, anti-parallel mass in the LEFT breast that measured 4 x 7 mm at the 1 o'clock position 2 cm from the nipple. IMPRESSION: Stable focal asymmetry in the lower inner quadrant of the LEFT breast, for which outside hospital ultrasound reportedly found an irregular 7 mm mass at the 1 o'clock position 2 cm from the nipple. Recommend repeat LEFT breast ultrasound for further evaluation. RECOMMENDATION: Additional imaging - LEFT breast ultrasound evaluation. NOTE: The findings, conclusions and recommendations within this report do not replace the initial findings, conclusions and recommendations made at the facility where the study was performed based upon the imaging and clinical condition at that time. Review of the prior report and correlation with the clinical history are necessary. The provided images may or may not represent the [place] source data set and thus may contain changes which may lower the sensitivity of the second opinion interpretation. Dictated by: Pravin Fowler M.D. The radiology attending physician has personally reviewed this study, and had reviewed and/or edited this written report and agrees with it. Electronically signed by: Purnima Rhodes M.D. Nancy Gonzalez BOTTLE SELECTOR IMG MAMMO PROCEDURES Final R esult documented in this encounter Visit Diagnoses Diagnosis Abnormal mammography Abnormal mammogram, unspecified documented in this encounter Care Teams Tool Grinder Operator Relationship Specialty Start Date End Date Margarito العراقي MD [address] [place] [address] PCP - General Family Medicine 09/04/20 documented as of this encounter
--- OUTSIDE RECORDS SUMMARY | 2024-11-19 04:50 | XMS_ITS | Encounter Summary ---
Author Organization [facility] Address [address] [place] [address] Phone Care Team Providers Care Thermal Cutter Helper Name Role Phone Margarito العراقي MD Primary Care Provider [phone] Encounter Details Date Type Department Care Team (Late st Contact Info) Description 01/09/2021 Orders Only [facility] [address] [facility] Medical Office Building [address] [place] [id number] Kelli Cruz DNP [address] [place] [address] Social History Tobacco Use Types Packs/Day Years Used Date Smoking Tobacco: Every Day Cigarettes Smokeless Tobacco: Never Alcohol Use Standard Drinks/Week Comments No 0 (1 standard drink = 0.6 oz pur e alcohol) Comments No Sex and Gender Information Value Date Recorded Sex Assigned at Not on file 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
--- OUTSIDE RECORDS SUMMARY | 2024-11-19 04:50 | XMS_ITS | Encounter Summary ---
Author Organization [facility] Address [address] [place] [address] Phone Care Team Providers Care Foxing Painter Name Role Phone Margarito العراقي MD Primary Care Provider [phone] Raymond Vela MD Unavailable [phone] Encounter Details Date Type Department Care Team (Late st Contact Info) Description 08/28/2021 Nurse Triage [facility] Surgery [address] [place] [address] [address] [place] [address] Mohinder Casarez Social History Tobacco Use Types Packs/Day Years Used Date Smoking Tobacco: Every Day Cigarettes Smokeless Tobacco: Never Alcohol Use Standard Drinks/Week Comments No 0 (1 standard drink = 0.6 oz pur e alcohol) Comments No Sex and Gender Information Value Date Recorded Sex Assigned at Not on file 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 No voicemail set up documented in this encounter Plan of Treatment Not on file documented as of this encounter Visit Diagnoses Not on filedocumented in this encounter Care Teams Foxing Painter Relationship Specialty Start Date End Date Margarito العراقي MD [facility] [place] [address] PCP - General Family Medicine 09/04/20 Raymond Vela MD [address] [place] [address] Referring Physician Obstetrics and Gynecology 08/17/21 documented as of this encounter
--- OUTSIDE RECORDS SUMMARY | 2024-11-19 04:50 | XMS_ITS | Encounter Summary ---
Author Organization [facility] Address [address] [place] [address] Phone Care Team Providers Care Tug Boat Engineer Name Role Phone Margarito العراقي MD Primary Care Provider [phone] Encounter Details Date Type Department Care Team (Late st Contact Info) Description 01/09/2021 Telephone [facility] Infusion Therapy [address] [facility] Medical Office Building [address] [place] [address] Awa Bowie, RN Social History Tobacco Use Types Packs/Day Years Used Date Smoking Tobacco: Every Day Cigarettes Smokeless Tobacco: Never Alcohol Use Standard Drinks/Week Comments No 0 (1 standard drink = 0.6 oz pur e alcohol) Comments No Sex and Gender Information Value Date Recorded Sex Assigned at Not on file 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 Appointmentfor Tuesday cancelled and will be rescheduled when approved. Patient verbalized understanding. INSPECTOR documented in this encounter Plan of Treatment Not on file documented as of this encounter Visit Diagnoses Not on filedocumented in this encounter Care Teams Tug Boat Engineer Relationship Specialty Start Date End Date [place] [address] PCP - General Family Medicine 09/04/20 documented as of this encounter
--- OUTSIDE RECORDS SUMMARY | 2024-11-19 04:50 | XMS_ITS | Encounter Summary ---
Author Organization [facility] Healthcare Address [address] [place] [address] Care Team Providers Care Truck Trailer Mechanic Name Role Phone Margarito العراقي MD Primary Care Provider [phone] Encounter Details Date Type Department Care Team (Latest Contact Info) Description 06/25/2021 - 06/25/2021 11:59 PM CDT Hospital Encounter [facility] [address] [place] [address] Discharge Disposition: Discharge to home or self care Social History Tobacco Use Types Packs/Day Years Used Date Smoking Tobacco: Every Day Cigarettes Smokeless Tobacco: Never Alcohol Use Standard Drinks/Week Comments No 0 (1 standard drink = 0.6 oz pur e alcohol) Comments No Sex and Gender Information Value Date Recorded Sex Assigned at Not on file 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 FCS 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 Gender Identity Not on file Sexual [...] MOUTH NIGHTLY 60 tablet 4 04/22/2021 1 metoprolol XL (TOPROL-XL) 25 mg extended release tablet TAKE 1 TABLET BY MOUTH TWICE A DAY 60 tablet 29 06/17/2021 1 rOPINIRole (REQUIP) 1 mg tablet 1 mg 11/20/2020 2 zoledronic yexl-bpckjftV-i ater (RECLAST) 5 mg/100 mL piggyback IV [...] Diagnosis Comments BREAST IMAGING OUTSIDE REFERENCE Routine 06/25/2021 12:00 AM CDT documented in this encounter Results * Breast Imaging Outside Reference (06/25/2021 12:00 AM CDT) Impressions [facility] - 08/06/2021 11:07 AM CDT These images are for Reference purposes only and have not been reviewed by [facility]iology. ??There will be no report generated by a [facility] Radiologist. Narrative [facility] - 08/06/2021 11:07 AM CDT EXAMINATION: ??Images For Reference Purposes Only us Nancy Gonzalez STORE TEAM MEMBER IMG MAMMO PROCEDURES Final R esult [facility] documented in this encounter Visit Diagnoses Not on filedocumented in this encounter Care Teams Truck Trailer Mechanic Relationship Specialty Start Date End Date Margarito العراقي MD [address] [place] [address] PCP - General Family Medicine 09/04/20 documented as of this encounter
--- OUTSIDE RECORDS SUMMARY | 2024-11-19 04:50 | XMS_ITS | Encounter Summary ---
Author Organization [facility] Address [address] [place] [address] Care Team Providers Care Manager Reimbursement Name Role Phone Mendoza Parker MD Primary Care Provider [phone] Encounter Details Date Type Department Care Team (Late st Contact Info) Description 08/26/2020 Telephone [facility] Gastroenterology at [address] [place] [address] Aleyda Garza MA Social History Tobacco Use Types Packs/Day Years Used Date Smoking Tobacco: Every Day Cigarettes Smokeless Tobacco: Never Alcohol Use Standard Drinks/Week Comments No 0 (1 standard drink = 0.6 oz pur e alcohol) Comments No Sex and Gender Information Value Date Recorded Sex Assigned at Not on file 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 Gender Identity Not on file Sexual Orientation Not on file documented as of this encounter Ordered Prescriptions Prescription Sig Dispense Quantity Refills Last Filled Start Date End Date linaCLOtide (LINZESS) 290 mcg capsule Take 1 capsule (290 mcg total) by mouth daily 30 capsule 1 08/26/2020 0 documented in this encounter Miscellaneous Notes * Telephone Encounter - Aleyda Garza MA - 08/26/2020 12:50 PM CDT Pt asked for her pharmacy to be changed, sending Linzess to the new pharmacy documented in this encounter Plan of Treatment Not on file documented as of this encounter Visit Diagnoses Not on filedocumented in this encounter Discontinued Medications Medication Sig Discontinue Reason Start Date End Da te linaCLOtide (LINZESS) 290 mcg capsule Take 1 capsule (290 mcg total) by mouth daily Other 08/26/2020 08/26/2020 documented as of this encounter Care Teams Manager Reimbursement Relationship Specialty Start Date End Date Mendoza Parker MD PCP - General 06/13/20 09/03/20 documented as of this encounter
--- OUTSIDE RECORDS SUMMARY | 2024-11-19 04:50 | XMS_ITS | Encounter Summary ---
Author Organization [facility] Healthcare Address [address] [place] [address] Care Team Providers Care Medical Office Technician Name Role Phone Margarito العراقي MD Primary Care Provider Reason for Visit * Reason Comments Hypertension Encounter Details Date Type Department Care Team (Late st Contact Info) Description 06/08/2021 8:44 PM CDT - 06/08/2021 10:24 PM CDT Emergency [facility] Emergency Department [address] [place] [address] Jacob Betancourt MD [address] [place] [address] [place] [address] [place] [id number] Essential hypertension (Primary Dx) Discharge Disposition: Discharge to home or self care Social History Tobacco Use Types Packs/Day Years Used Date Smoking Tobacco: Every Day Cigarettes Smokeless Tobacco: Never Alcohol Use Standard Drinks/Week Comments No 0 (1 standard drink = 0.6 oz pur e alcohol) Comments No Sex and Gender Information Value Date Recorded Sex Assigned at Not on file 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 Gender Identity Not on file Sexual Orientation Not on file documented as of this encounter Last Filed Vital Signs Vital Sign Reading Time Taken Comments Blood Pressure 161/85 06/08/2021 9:30 PM CDT Pulse 68 06/08/2021 9:40 PM CDT Temperature 36.5 ??C (97.7 ??F) 06/08/2021 8:08 PM CD T Respiratory Rate 18 06/08/2021 9:40 PM CDT Oxygen Saturation 99% 06/08/2021 9:40 PM CDT Inhaled Oxygen Concentration - - Weight 70.8 kg (156 lb) 06/08/2021 8:08 PM CDT Height 152.4 cm (5') 06/08/2021 8:08 PM CDT Body Mass Index 30.47 06/08/2021 8:08 PM CDT documented in this encounter Discharge Diagnoses Diagnosis Essential (primary) hypertension - ESSENTIAL (PRIMARY) HYPERTENSION Unspecified essential hypertension Age-related osteoporosis without current pathological fracture - AGE-RELATED OSTEOPOROSIS WITHOUT CURRENT PATHOLOGICAL FRACTURE Obstructive sleep apnea (adult) (pediatric) - OBSTRUCTIVE SLEEP APNEA (ADULT) (PEDIATRIC) Gastro-esophageal reflux disease without esophagitis - GASTRO-ESOPHAGEAL REFLUX DISEASE WITHOUT ESOPHAGITIS Hyperlipidemia, unspecified - HYPERLIPIDEMIA, UNSPECIFIED Disorder of thyroid, unspecified - DISORDER OF THYROID, UNSPECIFIED Fibromyalgia - FIBROMYALGIA Unspecified myalgia and myositis Irritable bowel syndrome without diarrhea - IRRITABLE BOWEL SYNDROME WITHOUT DIARRHEA Personal history of other diseases of the digestive system - PERSONAL HISTORY OF OTHER DISEASES OF THE DIGESTIVE SYSTEM Polyneuropathy, unspecified - POLYNEUROPATHY, UNSPECIFIED Other terminal worker (current) drug therapy - OTHER TRAFFIC ATTENDANT (CURRENT) DRUG THERAPY prison (current) use of aspirin - SKILLED NURSING (CURRENT) USE OF ASPIRIN Allergy status to analgesic agent - ALLERGY STATUS TO ANALGESIC AGENT Allergy status to other antibiotic agents - ALLERGY STATUS TO OTHER ANTIBIOTIC AGENTS Allergy status to narcotic agent - ALLERGY STATUS TO NARCOTIC AGENT Allergy status to other drugs, medicaments and biological substances - ALLERGY STATUS TO OTHER DRUGS, MEDICAMENTS AND BIOLOGICAL SUBSTANCES Acquired absence of other specified parts of digestive tract - ACQUIRED ABSENCE OF OTHER SPECIFIED PARTS OF DIGESTIVE TRACT Nicotine dependence, cigarettes, uncomplicated - NICOTINE DEPENDENCE, CIGARETTES, UNCOMPLICATED Family history of ischemic heart disease and other diseases of the circulatory system - FAMILY HISTORY OF ISCHEMIC HEART DISEASE AND OTHER DISEASES OF THE CIRCULATORY SYSTEM Family history of asthma and other chronic lower respiratory diseases - FAMILY HISTORY OF ASTHMA AND OTHER CHRONIC LOWER RESPIRATORY DISEASES documented in this encounter Discharge Instructions * Attachments The following attachments cannot be sent through Care Everywhere. * High Blood Pressure, Established, Out of Control (Syriac) documented in this encounter Medications at Time [...] tablet (25 mg total) by mouth daily 20 tablet 06/08/2021 1 irbesartan (AVAPRO) 75 mg tablet TAKE TWO TABLETS BY MOUTH NIGHTLY 60 tablet 4 04/22/2021 1 metoprolol XL (TOPROL-XL) 25 mg extended release tablet Take 0.5 tablets (12.5 mg total) by mouth 2 (two) times a day 180 tablet 3 04/28/2020 1 rOPINIRole (REQUIP) 1 mg tablet 1 mg 11/20/2020 2 zoledronic ejtd-kvqpajfD-b ater (RECLAST) 5 mg/100 mL piggyback IV every 12 months 03/25/2021 3 zolpidem (AMBIEN) 10 mg tabletIndicatio ns:Sleep-Onset Insomnia Take 1 tablet (10 mg total) by mouth nightly as needed for sleep 30 tablet 5 11/28/2020 2 documented as of this encounter Ordered Prescriptions Prescription Sig Dispense Quantity Refills Last Filled Start Date End Date hydroCHLOROthiazid e (HYDRODIURIL) 25 mg tablet Take 1 tablet (25 mg total) by mouth daily 20 tablet 06/08/2021 06/25/2021 documented in this encounter Discharge Disposition Disposition Code Departure Means Destination Discharge to home or self care documented in this encounter ED Notes * Jacob Betancourt MD - 06/08/2021 9:37 PM CDT Chief Complaint Patient presents with ??? Hypertension HPI 8:47 PM 06/08/2021 Shivani Betancur is a 55 y.o. female smoker with a history of osteoporosis, HTN, NEO, GERD, cystitis,and HLD who presents to the ED, complaining of HTN (187/119) onset today. Patient reports low BP 3 days ago, so called testing analyst who changed BP medications. Patient then noticed elevated BP. She claims visiting urgent care who did not see anything concerning, but they were unable to do a full cardiac exam, so recommended patient come to ED for further evaluation. Patient admits to SOB, CP, ROA,and neck stiffness. Of note, patient takes metoprolol and irbesartan for BP. No other complaints atthis time. Past Medical History: Diagnosis Date ??? Disorder [...] 1982 section ??? SECTION c section ??? HARDWARE [...] SALPINGOOPHORECTOMY 2008 hysterectomy: ADE/BSO ??? VAGINAL HYSTERECTOMY 2009 Hysterectomy, [...] Alcohol use: No ??? Drug use: No Review of Systems Review of Systems Constitutional: Negative for chills and fever. HENT: Negative for congestion and ear pain. Eyes: Negative for pain and discharge. Respiratory: Positive for shortness of breath. Negative for cough. Cardiovascular: Positive for chest pain. Negative for palpitations. Gastrointestinal: Negative for abdominal pain, nausea and vomiting. Genitourinary: Negative for dysuria and frequency. Musculoskeletal: Positive for neck stiffness. Negative for back pain and myalgias. Skin: Negative for rash and wound. Neurological: Positive for headaches. Negative for dizziness. Physical Exam ED Triage Vitals [06/08/212007] Temp Pulse Resp BP SpO2 36.5 ??C (97.7 ??F) 76 18 168/82 98 % Temp src Heart Rate Source Patient Position BP Location FiO2 (%) Temporal -- -- -- -- Physical Exam Vitals and nursing note reviewed. Constitutional: Appearance: Normal appearance. HENT: Head: Normocephalic and atraumatic. Eyes: Extraocular Movements: Extraocular movements intact. Pupils: Pupils are equal, round, and reactive to light. Cardiovascular: Rate and Rhythm: Normal rate and regular rhythm. Pulses: Normal pulses. Heart sounds: Normal heart sounds. Pulmonary: Effort: Pulmonary effort is normal. Breath sounds: Normal breath sounds. Abdominal: General: Abdomen is flat. Palpations: Abdomen is soft. Tenderness: There is no abdominal tenderness. Musculoskeletal: General: Normal range of motion. Cervical back: Normal range of motion. Skin: General: Skin is warm. Capillary Refill: Capillary refill takes less than 2 seconds. Neurological: General: No focal deficit present. Mental Status: She is alert and oriented to person, place, and time. Procedures Labs Reviewed CBC WITH AUTO DIFFERENTIAL - Abnormal Result Value WBC 12.6 (*) Hgb 15.2 Hct 46.2 (*) Plt 309 MPV 10.3 RBC 5.00 MCV 92.4 MCH 30.4 MCHC 32.9 RDW CV 13.5 RDW SD 45.6 NRBC abs 0.02 (*) DIFFERENTIAL AUTO - Abnormal Neutrophil abs 7.2 (*) Imm gran abs 0.0 Lymphocyte abs 4.3 (*) Monocyte abs 0.7 Eosinophil abs 0.3 Basophil abs 0.1 Neutrophil pct 56.9 Imm gran pct 0.3 Lymphocyte pct 34.3 Monocyte pct 5.5 Eosinophil pct 2.4 Basophil pct 0.6 BASIC METABOLIC PANEL Sodium 139 Potassium, pl 4.1 Chloride 104 CO2 25 Anion gap 10 BUN 12 Creatinine 0.68 Glucose 86 Calcium 8.9 EGFR GFR 98 No orders to display BP 151/95 Pulse 71 Temp 36.5 ??C (97.7 ??F) (Temporal) Resp 17 Ht 152.4 cm (5') Wt 70.8 kg (156 lb) SpO2 99% BMI 30.47 kg/m?? MDM Final diagnoses: None This note is prepared by Mary Anne Park, acting as a scribe for Jacob Betancourt MD. I electronicallysigned this note at 9:37 PM on 06/08/2021. I, Jacob Betancourt MD, have personally performed the services described in the documentation, reviewed the documentation, as recorded by the scribe in my presence, and it accurately and completely records my words and actions. Jacob Betancourt MD 06/08/212206 * Edvin Cardona RN - 06/08/2021 8:05 PM CDT Ambulate to triage c/o blood pressure was real low on Tuesday and was seen at urgent care. Called testing analyst today who changed around blood pressure medications and now blood pressure has been elevated 187/119. documented in this encounter Miscellaneous Notes * ED Procedure Note - Jacob Betancourt MD - 06/08/2021 9:16 PM CDTAssociated Order(s): ECG 12 lead Procedure ECG 12 lead Date/Time: 06/08/2021 9:16 PM Performed by: Jacob Betancourt MD Authorized by: Jacob Betancourt MD Rate: ECG rate: 72 ECG rate assessment: normal Rhythm: Rhythm: sinus rhythm Ectopy: Ectopy: none QRS: QRS axis: Normal QRS intervals: Normal Conduction: Conduction: normal ST segments: ST segments: Normal T waves: T waves: normal Interpretation: Interpretation: normal Jacob Betancourt MD 06/08/212115 documented in this encounter Plan of Treatment Not on file documented as of this encounter Procedures Procedure Name Priority Date/Time Associated Diagnosis Comments ECG 12-LEAD STAT 06/08/2021 9:02 PM CDT EGFR STAT 06/08/2021 9:00 PM CDT DIFFERENTIAL AUTO STAT 06/08/2021 9:0 0 PM CDT CBC WITH AUTO DIFFERENTIAL STAT 06/08/2021 9:00 PM CDT BASIC METABOLIC PANEL STAT 06/08/2021 9:00 PM CDT documented in this encounter Results * ECG 12 lead (06/08/2021 9:02 PM CDT) 06/08/2021 9:02 PM CDT Narrative [facility] - 06/09/2021 7:35 AM CDT Vent Rate: 72 bpm RR Interval: 827 msec NE Interval: 167 msec QRS Duration: 85 msec QT Interval: 360 msec QTC Interval: 384 msec P-R-T [place]: 40 - -16 - -1 degrees SINUS RHYTHM POSSIBLE RIGHT VENTRICULAR CONDUCTION DELAY ??[RSR (QR) IN V1/V2] Leftward axis COMPARED TO PRIOR EKG, NO SIGNIFICANT CHANGE Electronically Signed By: Dr Yony Rehman us Jacob Betancourt MD ECG ORDERABLES Final Result [facility] * eGFR (06/08/2021 9:00 PM CDT) eGFR 98 mL/min/1.7 3 m2 [facility] ([place]) Comment: Interpretive Data Reference Interval Normal ?>/= 90 mL/min/1.73m2 Mildly decreased* ? 60 - 89 mL/min/1.73m2 Mildly to moderately decreased ?45 - 59 mL/min/1.73m2 Moderately to severely decreased ??30 - 44 mL/min/1.73m2 Severely decreased ?15 - 29 mL/min/1.73m2 Kidney Failure ?< 15 ??mL/min/1.73m2 *Relative to young adult level Estimated glomerular filtration rate is determined by the CKD-EPI equation recommended by the National Kidney Foundation (KDIGO 2012 Clinical Practice Guideline for the Evaluation and Management of Chronic Kidney Disease. Kidney Intnl Suppl Nov 2012;3:1). The CKD-EPI equation should not be used for patients with unstable renal function and has not been validated in children and those over 70. Current interpretive data was last reviewed 2020 Blood specimen (specimen) 06/08/2021 9:00 PM CDT 06/08/2021 9:09 PM CDT us Jacob Betancourt MD LAB BLOOD ORDERABLES Final Res ult [facility] ([place] [address] [facility] [place] [address] * (ABNORMAL) Differential, auto (06/08/2021 9:00 PM CDT) Neutrophil abs 7.2(H) 1.7 - 6.5 K/cumm [facility] ([place]) Imm gran abs 0.0 0.0 - 0.1 K/cumm [facility] ([place]) Lymphocyte abs 4.3(H) 0.8 - 3.3 K/cumm [facility] ([place]) Monocyte abs 0.7 0.2 - 0.8 K/cumm [facility] ([place]) Eosinophil abs 0.3 0.0 - 0.5 K/cumm [facility] ([place]) Basophil abs 0.1 0.0 - 0.1 K/cumm [facility] ([place]) Neutrophil pct 56.9 % [facility] ([place]) Comment: Interpretive Data Percent cell count reference ranges are not reported, since discordance with absolute values may lead to misinterpretation of CBC data. Current Interpretive Data was last revised on 2018. Imm gran pct 0.3 % [facility] ([place]) Comment: Interpretive Data Percent cell count reference ranges are not reported, since discordance with absolute values may lead to misinterpretation of CBC data. Current Interpretive Data was last revised on 2018. Lymphocyte pct 34.3 % [facility] ([place]) Comment: Interpretive Data Percent cell count reference ranges are not reported, since discordance with absolute values may lead to misinterpretation of CBC data. Current Interpretive Data was last revised on 2018. Monocyte pct 5.5 % [facility] ([place]) Comment: Interpretive Data Percent cell count reference ranges are not reported, since discordance with absolute values may lead to misinterpretation of CBC data. Current Interpretive Data was last revised on 2018. Eosinophil pct 2.4 % [facility] ([place]) Comment: Interpretive Data Percent cell count reference ranges are not reported, since discordance with absolute values may lead to misinterpretation of CBC data. Current Interpretive Data was last revised on 2018. Basophil pct 0.6 % [facility] ([place]) Comment: Interpretive Data Percent cell count reference ranges are not reported, since discordance with absolute values may lead to misinterpretation of CBC data. Current Interpretive Data was last revised on 2018. Blood specimen (specimen) 06/08/2021 9:00 PM CDT 06/08/2021 9:09 PM CDT us Jacob Betancourt MD LAB BLOOD ORDERABLES Final Res ult [facility] ([place]) 1 [facility] Department [place] [address] * Basic metabolic panel (06/08/2021 9:00 PM CDT) Sodium 139 135 - 145 mmol/L [facility] ([place]) Potassium, pl 4.1 3.3 - 4.9 mmol/L [facility] ([place]) Chloride 104 97 - 110 mmol/L [facility] ([place]) CO2 25 22 - 32 mmol/L [facility] ([place]) Anion gap 10 2 - 15 mmol/L [facility] ([place]) BUN 12 8 - 25 mg/dL [facility] ([place]) Creatinine 0.68 0.60 - 1.10 mg/dL [facility] ([place]) Glucose 86 70 - 199 mg/dL [facility] ([place]) [...] interpretive data was last revised 2017. Calcium 8.9 8.5 - 10.3 mg/dL [facility] ([place]) Blood specimen (specimen) 06/08/2021 9:00 PM CDT 06/08/2021 9:09 PM CDT us Jacob Betancourt MD LAB BLOOD ORDERABLES Final Res ult [facility] ([place]) 1 [facility] Department [place] [address] * (ABNORMAL) CBC with auto differential (06/08/2021 9:00 PM CDT) WBC 12.6(H) 3.8 - 9.9 K/cumm [facility] ([place]) Hgb 15.2 11.9 - 15.5 g/dL [facility] ([place]) Hct 46.2(H) 35.6 - 45.5 % [facility] ([place]) Plt 309 150 - 400 K/cumm [facility] ([place]) MPV 10.3 9.1 - 12.3 fL [facility] ([place]) RBC 5.00 3.90 - 5.20 M/cumm [facility] ([place]) MCV 92.4 81.3 - 96.4 fL [facility] ([place]) MCH 30.4 27.1 - 33.3 pg [facility] ([place]) MCHC 32.9 32.3 - 35.7 g/dL [facility] ([place]) RDW CV 13.5 11.1 - 14.9 % [facility] ([place]) RDW SD 45.6 35.7 - 48.1 fL [facility] ([place]) NRBC abs 0.02(H) 0.00 - 0.01 K/cumm [facility] ([place]) Blood specimen (specimen) 06/08/2021 9:00 PM CDT 06/08/2021 9:09 PM CDT us Jacob Betancourt MD LAB BLOOD ORDERABLES Final Res ult [facility] ([place]) 1 [facility] Department [place] [address] documented in this encounter Visit Diagnoses Diagnosis Essential hypertension- Primary Unspecified essential hypertension documented in this encounter Administered Medications Inactive Administered Medications - up to 3 most recent administrations Medication Order MAR Action Action Date Dose Rate Site cloNIDine (CATAPRES) tablet 0.1 mg 0.1 mg, oral, Once, On Tue06/08/21 at 2102, For 1 dose Given 06/08/2021 9:08 PM CDT 0.1 mg documented in this encounter Active and Recently Administered Medications Times are shown in CDT. Scheduled Medication Order 06/06/2021 06/07/2021 06/08/2021 cloNIDine (CATAPRES) tablet 0.1 mg (COMPLETED) 0.1 mg, oral, Once, On Tue06/08/21 at 2102, For 1 dose 2107 (Given - Provid er: Angelica Lam RN) documented in this encounter Care Teams Medical Office Technician Relationship Specialty Start Date End Date Margarito العراقي MD [address] [place] [address] PCP - General Family Medicine 09/04/20 documented as of this encounter
--- OUTSIDE RECORDS SUMMARY | 2024-11-19 04:50 | XMS_ITS | Encounter Summary ---
Author Organization [facility] Address [address] [place] [address] Phone Care Team Providers Care Unit Assembler Name Role Phone Margarito العراقي MD Primary Care Provider [phone] Encounter Details Date Type Department Care Team (Late st Contact Info) Description 12/15/2020 Orders Only [facility] [address] [facility] [address] [place] [id number] Kelli Cruz DNP 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
--- OUTSIDE RECORDS SUMMARY | 2024-11-19 04:50 | XMS_ITS | Encounter Summary ---
Author Organization [facility] Address [address] [place] [address] Care Team Providers Care Steerer Name Role Phone Margarito العراقي MD Primary Care Provider Encounter Details Date Type Department Care Team (Late st Contact Info) Description 11/28/2020 1:00 PM JET OPERATOR Office Visit [facility] [address] [facility] [address] [place] [address] Corina Zambrano, [facility] [address] [facility] [facility] [address] [place] [address] Obstructive sleep apnea syndrome (Primary Dx); Hypersomnia; Obesity (BMI 30-39.9); Involuntary jerky movements; Sleep-wake cycle disorder Social History Tobacco Use Types Packs/Day Years Used Date Smoking Tobacco: Every Day Cigarettes Smokeless Tobacco: Never Alcohol Use Standard Drinks/Week Comments No 0 (1 standard drink = 0.6 oz pur e alcohol) Comments No Sex and Gender Information Value Date Recorded Sex Assigned at Not on file 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:46 AM JET OPERATOR Gender Identity Not on file Sexual Orientation Not on file documented as of this encounter Last Filed Vital Signs Vital Sign Reading Time Taken Comments Blood Pressure 130/91 11/28/2020 1:22 PM JET OPERATOR Pulse 106 11/28/2020 1:22 PM JET OPERATOR Temperature - - Respiratory Rate - - Oxygen Saturation - - Inhaled Oxygen Concentration - - Weight 73 kg (161 lb) 11/28/2020 1:22 PM JET OPERATOR Height 149.9 cm (4' 11 ) 11/28/2020 1:22 PM JET OPERATOR Body Mass Index 32.52 11/28/2020 1:22 PM JET OPERATOR documented in this encounter Ordered Prescriptions Prescription Sig Dispense Quantity Refills Last Filled Start Date End Date zolpidem (AMBIEN) 10 mg tabletIndications: Sleep-Onset Insomnia Take 1 tablet (10 mg total) by mouth nightly as needed for sleep 30 tablet 5 11/28/2020 2 documented in this encounter Progress Notes * Corina Zambrano, BUSINESS MANAGEMENT ASSOCIATE - 11/28/2020 1:00 PM CST Chief complaints: NEO, hypersomnia. Delayed sleep cycle diorder. 1. Moderate NEO. Pt endorses she has been compliant to the therapy. No change in her sleep schedulewith going to bed midnight-2 am and awaken between 5-8am. . Pt reported very dry mouth in the morning without using water in the water tank. Now she uses water nightly and has helped her symptoms. Tolerating Full mask. Feels less refreshed upon awakening. Her machine is at least 5 yo and wondering if the machine works correctly. 2. Pt reports worsening control of her daytime sleepiness. The pt's [place] Sleepiness Scale (ESS) is: 8 (was 0 during the last visit). 3. Obesity. 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 Stable. 5. Muscle jerking. She has noticed intermittent body jerky movement that wakes up in the middle of the night and cannot go back to bed. Ropinirole was started by PCP and has been working. She was on clonazepam but she no longer takes it. Past Medical History: Diagnosis Date ??? Disorder [...] file Gets together: Not on file Attends sabianist service: Not on file Active member of [...] Stroke Other Stroke; Review of Systems Constitutional: Positive for fatigue. HENT: Negative. Eyes: Negative. Respiratory: Negative. Cardiovascular: Negative. Gastrointestinal: Positive for abdominal pain. Endocrine: Negative. Genitourinary: Negative. Musculoskeletal: Positive for arthralgias, myalgias and neck pain. Skin: Negative. Allergic/Immunologic: Negative. Neurological: Positive for tremors and syncope. Hematological: Negative. Psychiatric/Behavioral: Positive for dysphoric mood. The patient is nervous/anxious. BP 150/94 Pulse 92 Ht 149.9 cm [...] apnea with baseline AHI 15 in 2014. : Endorses symptoms suggestive of obstructive sleep apnea syndrome. Patient has an established diagnosis of obstructive sleep apnea syndrome. She did not bring her chip today. 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 Continue. Her machine is at least 5 yo and may not be functioning. -will request a new CPAP with 5-11cm. She is aware that she may need to repeat home sleep study to qualify. Data in the past: Date range: December 02, 2019 to December [...] verbalizes an understanding. 4. Body jerky movement. -will discontinue clonazepam. Ropinirole given by her PCP is working well. Will follow up in 2 months. 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 Medication Sig Dispense Quantity Refills Last Filled Start D ate End Date rOPINIRole (REQUIP) 1 mg tablet 1 mg 11/20/2020 06/30/2022 added in this encounter Care Teams Steerer Relationship Specialty Start Date End Date Margarito العراقي MD [address] [place] [address] PCP - General Family Medicine 09/04/20 documented as of this encounter
--- OUTSIDE RECORDS SUMMARY | 2024-11-19 04:50 | XMS_ITS | Encounter Summary ---
Author Organization [facility] Address [address] [place] [address] Phone Care Team Providers Care Director Outpatient Services Name Role Phone Margarito العراقي MD Primary Care Provider [phone] Reason for Referral * Diagnostic Imaging (Routine) - Closed Specialty Diagnoses / Procedures Referred By Contac t Referred To Contact Diagnoses Abnormal mammography Procedures US Breast Left Limited Nancy Gonzalez CNS Phone: tel: fax: [facility] [address] [place] [address] Referral ID Status Reason Start Date Expiration Date Visits Re quested Visits Authorized [id number] Closed 08/05/2021 09/04/2022 1 1 Encounter Details Date Type Department Care Team (Late st Contact Info) Description 08/05/2021 Orders Only [facility] Surgery [facility] Advanced Medicine 5th [place] [address] [place] [address] Nancy Gonzalez CNS [address] [address] Abnormal mammography (Primary Dx) Social History Tobacco Use Types Packs/Day Years Used Date Smoking Tobacco: Every Day Cigarettes Smokeless Tobacco: Never Alcohol Use Standard Drinks/Week Comments No 0 (1 standard drink = 0.6 oz pur e alcohol) Comments No Sex and Gender Information Value Date Recorded Sex Assigned at Not on file 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 OVERALL FINAL ASSESSMENT: BI-RADS Category 2: Benign. Recommend return to annual screening mammography in ??June 2022. Electronically signed by: Kirsty Friedman M.D. Narrative 08/17/2021 10:35 AM CDT EXAMINATION: LEFT BREAST SONOGRAM HISTORY: 55-year-old woman who presents for 2nd opinion ultrasound of a mass noted at outside facility in the left breast at the 1 o'clock position 2 cm from the nipple. COMPARISON: Outside facility mammograms and ultrasound from 07/30/2021, 06/25/2021 and priors dating back to 2019. TECHNIQUE: Directed ultrasound evaluation of the LEFT breast was performed. SONOGRAM FINDINGS: In the LEFT breast at the 1 o'clock position 2 cm from the nipple, there is a anechoic 0.9 x 0.2 x 0.6 cm cluster of simple cysts with circumscribed margins. ??The cysts demonstrate no internal vascularity and posterior acoustic enhancement. ??Incidentally noted is multiple other simple anechoic cysts. Procedure Note Kirsty Friedman MD - 08/17/2021 EXAMINATION: LEFT BREAST SONOGRAM HISTORY: 55-year-old woman who presents for 2nd opinion ultrasound of a mass noted at outside facility in the left breast at the 1 o'clock position 2 cm from the nipple. COMPARISON: Outside facility mammograms and ultrasound from 07/30/2021, 06/25/2021 and priors dating back to 2019. TECHNIQUE: Directed ultrasound evaluation of the LEFT breast was performed. SONOGRAM FINDINGS: In the LEFT breast at the 1 o'clock position 2 cm from the nipple, there is a anechoic 0.9 x 0.2 x 0.6 cm cluster of simple cysts with circumscribed margins. The cysts demonstrate no internal vascularity and posterior acoustic enhancement. Incidentally noted is multiple other simple anechoic cysts. IMPRESSION: A cluster of simple cysts in the left breast at the 1 o'clock position 2 cm from the nipple, correlates to the mass seen at outside facility and is benign. OVERALL FINAL ASSESSMENT: BI-RADS Category 2: Benign. Recommend return to annual screening mammography in June 2022. Electronically signed by: Kirsty Friedman M.D. us Nancy Gonzalez ARCHITECTURE CONSULTANT IMG MAMMO PROCEDURES Final R esult * Breast Imaging Outside Consult (08/11/2021 9:11 [...] images may or may not represent the [place] source data set and thus may contain [...] OF OUTSIDE IMAGING FACILITY PERFORMING OUTSIDE IMAGING: [facility] EXAM(S) REVIEWED: 1. ??BILATERAL SCREENING MAMMOGRAM [...] OF OUTSIDE IMAGING FACILITY PERFORMING OUTSIDE IMAGING: [facility] EXAM(S) REVIEWED: 1. BILATERAL SCREENING MAMMOGRAM [...] images may or may not represent the [place] source data set and thus may contain changes which may lower the sensitivity of the second opinion interpretation. Dictated by: Pravin Fowler M.D. The radiology attending physician has personally reviewed this study, and had reviewed and/or edited this written report and agrees with it. Electronically signed by: Purnima Rhodes M.D. Nancy Gonzalez ARCHITECTURE CONSULTANT IMG MAMMO PROCEDURES Final R esult documented in this encounter Visit Diagnoses Diagnosis Abnormal mammography- Primary Abnormal mammogram, unspecified Abnormal mammography Abnormal mammogram, unspecified Abnormal mammography Abnormal mammogram, unspecified documented in this encounter Care Teams Director Outpatient Services Relationship Specialty Start Date End Date Margarito العراقي MD [address] [place] [address] PCP - General Family Medicine 09/04/20 documented as of this encounter
--- OUTSIDE RECORDS SUMMARY | 2024-11-19 04:50 | XMS_ITS | Encounter Summary ---
Author Organization [facility] Address [address] [place] [address] Care Team Providers Care Melt Down Furnace Operator Name Role Phone Margarito العراقي MD Primary Care Provider [phone] Reason for Visit * Reason Comments Follow-up Pt is here following up from having constipation. Pt states Marcial is not working good, all she has is diarrhea with no formed stools. Encounter Details Date Type Department Care Team (Latest Contact Info) Description 09/04/2020 2:30 PM CDT Office Visit [facility] Gastroenterology at [address] [place] [phone] Polina Rosa MD [address] [place] [address] [address] [place] [address] Chronic idiopathic constipation (Primary Dx); Diverticulosis of intestine without perforation or abscess without bleeding Social History Tobacco Use Types Packs/Day Years Used Date Smoking Tobacco: Every Day Cigarettes Smokeless Tobacco: Never Alcohol Use Standard Drinks/Week Comments No 0 (1 standard drink = 0.6 oz pur e alcohol) Comments No Sex and Gender Information Value Date Recorded Sex Assigned at Not on file 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 Gender Identity Not on file Sexual Orientation Not on file documented as of this encounter Last Filed Vital Signs Vital Sign Reading Time Taken Comments Blood Pressure 118/70 09/04/2020 2:48 PM CDT Pulse 80 09/04/2020 2:48 PM CDT Temperature 36.4 ??C (97.6 ??F) 09/04/2020 2:48 PM CD T Respiratory Rate 20 09/04/2020 2:48 PM CDT Oxygen Saturation 98% 09/04/2020 2:48 PM CDT Inhaled Oxygen Concentration - - Weight 70.3 kg (155 lb) 09/04/2020 2:48 PM CDT Height 149.9 cm (4' 11 ) 09/04/2020 2:48 PM CDT Body Mass Index 31.31 09/04/2020 2:48 PM CDT documented in this encounter Ordered Prescriptions Prescription Sig Dispense Quantity Refills Last Filled Start Date End Date lubiprostone (Amitiza) 24 mcg capsule Take 1 capsule (24 mcg total) by mouth 2 (two) times a day with meals 60 capsule 3 09/04/2020 0 documented in this encounter Progress Notes * Polina Rosa MD - 09/04/2020 2:30 PM CDT Images from the original note were not included. FOLLOW-UP VISIT Chief Complaint Patient presents with ??? Follow-up Pt is here following up from having constipation. Pt states Linzess is not working good, all she has is diarrhea with no formed stools. SUBJECTIVE: HPI: Ms. Betancur is following up for Follow-up (Pt is here following up from having constipation. Pt states Linzess is not working good, all she has is diarrhea with no formed stools. ) . Overall she is still having issues with constipation. She is taking Linzess 290 micro g daily and this is not working. The discussing diarrhea so she had to stop it. She was taking Amitiza and thus help better. Now she is noted bathroom every few days and she has occult gassy and bloated on abdominal discomfort without bowel movements. No weight loss. No nausea. No vomiting. No blood in the stool. Patient has colonoscopy in 2013 which showed diverticulosis and melanosis coli in a small hemorrhoid. She had he has tree of diverticulitis in the past. ROS: GENERAL: no fever, appetite is good. RESPIRATORY: no shortness of breath, no cough. SKIN: no itching, no rash. EYES: no redness, no itching, no visual changes. Past Medical History: Diagnosis Date ??? Disorder of thyroid Thyroid disease ??? Fibrositis Fibromyalgia ??? Gastroesophageal reflux disease GERD ??? HX OTHER MEDICAL 1989 ; Outcome: 9 [...] section ??? HARDWARE REMOVAL ??? LAPAROSCOPIC CHOLECYSTECTOMY 2014 laparoscopic cholecystectomy ??? OTHER SURGICAL HISTORY 1988 : ??? OTHER SURGICAL HISTORY 1991 : ??? OTHER SURGICAL HISTORY 2004 Cryoablation ??? OTHER SURGICAL HISTORY 1982 : [...] ADE/BSO ??? VAGINAL HYSTERECTOMY 2009 Hysterectomy, vaginal Patient Active Problem List Diagnosis ??? Essential [...] cystitis without hematuria ??? Chronic idiopathic constipation Current Outpatient Medications on File Prior to Visit Medication Sig Dispense Refill ??? ckqoediyrtujt-yvykqqr-yoixdept (EXCEDRIN MIGRAINE) 250-250-65 mg per tablet 1-2 per week ??? aspirin 81 mg enteric coated tablet TAKE ONE TABLET BY MOUTH ONCE DAILY 90 tablet 1 ??? atorvastatin (LIPITOR) 20 mg tablet TAKE ONE TABLET BY MOUTH ONCE DAILY 90 tablet 1 ??? buPROPion SR (WELLBUTRIN SR) 150 mg 12 hr tablet bupropion HCl SR 150 mg tablet,12 hr sustained-release TAKE 1 TABLET BY MOUTH TWICE A DAY ??? cholecalciferol (VITAMIN D-3) 1000 unit tablet Take 1,000 Units by mouth daily ??? clobetasoL (TEMOVATE) 0.05 % ointment clobetasol 0.05 % topical ointment APPLY THIN COAT TO AFFECTED AREA TWICE A DAY ??? clonazePAM (KlonoPIN) 0.5 mg tablet Take 1 tablet (0.5 mg total) by mouth nightly 30 tablet 5 ??? cyclobenzaprine (FLEXERIL) 10 mg tablet Take 10 mg by mouth 3 (three) times a day as needed. ??? ergocalciferol (VITAMIN D) 50,000 unit capsule ergocalciferol (vitamin D2) 1,250 mcg (50,000 unit) capsule TAKE 1 CAPSULE BY MOUTH ONCE PER WEEK ??? estradiol (ESTRACE) 0.01 % (0.1 mg/gram) vaginal cream INSERT 1/2 TO 1 GRAM VAGINALLY 1 TO 2 TIMES PER WEEK 42.5 0 ??? HYDROcodone-acetaminophen (NORCO) 5-325 mg per tablet Take 1 tablet by mouth every 6 (six) hours as needed. 0 ??? irbesartan (AVAPRO) 75 mg tablet Take 2 tablets (150 mg total) by mouth nightly 90 tablet 3 ??? metoprolol XL (TOPROL-XL) 25 mg extended release tablet Take 0.5 tablets (12.5 mg total) by mouth 2 (two) times a day 180 tablet 3 ??? pen needle, diabetic (BD ULTRA-FINE MINI PEN NEEDLE) 31 gauge x 3/16 needle use one needle daily with Forteo Pen ??? pregabalin (LYRICA) 75 mg capsule Take 75 mg by mouth daily ??? triamcinolone (KENALOG) 0.1 % ointment APPLY TWICE A DAY FOR 1 2 WEEKS NEEDED FOR IRRITATION ??? zolpidem (AMBIEN) 10 mg tablet Take 1 tablet (10 mg total) by mouth nightly as needed for sleep30 tablet 5 ??? DULoxetine DR (CYMBALTA) 30 mg capsule Take 30 mg by mouth daily ??? NARCAN 4 mg/actuation spray,non-aerosol ??? nitrofurantoin (MACRODANTIN) 100 mg capsule Take 100 mg by mouth 2 (two) times a day ??? sulfamethoxazole-trimethoprim (BACTRIM DS) 800-160 mg per tablet Take 1 tablet by mouth every 12 (twelve) hours ??? [DISCONTINUED] omeprazole (PriLOSEC) 40 mg capsule TAKE ONE CAPSULE BY MOUTH ONCE DAILY (Patient not taking: Reported on 09/04/2020) 30 capsule 1 No current facility-administered medications on file prior to visit. Family History Problem Relation Age of Onset [...] 0.25 ??? Smokeless tobacco: Never Used Substance Use Topics ??? Alcohol use: No [...] only Reaction: Itching, Nausea, ??? Lisinopril Cough OBJECTIVE: Vitals BP 118/70 (BP Location: Left arm, Patient Position: Sitting) Pulse 80 Temp 36.4 ??C (97.6 ??F) (Temporal) Resp 20 Ht 149.9 cm (4' 11 ) Wt 70.3 kg (155 lb) SpO2 98% BMI 31.31 kg/m?? Exam: Patient is alert and oriented to time and place and self. Patient appears comfortable. Eyes: no jaundice. Lymphatics: no submandibular and no subclavicular lymphadenopathy. Lungs: CTA anteriorly. ENT: no mouth ulcers. GI: abdomen is soft, no distention, no tenderness, bowel sounds positive. Musculos keletal: no joint swelling, no edema. Skin: no rash. Psych: mood seems normal. No confusion. Labs and X Rays: - I reviewed all recent labs and X rays and endoscopy procedures. No visits with results within 3 Month(s) from this visit. Latest known visit with results is: Admission on 06/04/2020, Discharged on 06/04/2020 Component Date Value ??? WBC 06/04/2020 11.6* ??? Hgb 06/04/2020 13.3 ??? Hct 06/04/2020 40.2 ??? Plt 06/04/2020 334 ??? MPV 06/04/2020 9.9 ??? RBC 06/04/2020 4.29 ??? MCV 06/04/2020 93.7 ??? MCH 06/04/2020 31.0 ??? MCHC 06/04/2020 33.1 ??? RDW CV 06/04/2020 12.7 ??? RDW SD 06/04/2020 44.1 ??? NRBC abs 06/04/2020 0.00 ??? Sodium 06/04/2020 138 ??? Potassium, pl 06/04/2020 4.2 ??? Chloride 06/04/2020 104 ??? CO2 06/04/2020 24 ??? Anion gap 06/04/2020 9 ??? BUN 06/04/2020 12 ??? Creatinine 06/04/2020 0.67 ??? Glucose 06/04/2020 111 ??? Calcium 06/04/2020 9.8 ??? Bilirubin, total 06/04/2020 0.2 ??? Protein, pl 06/04/2020 7.4 ??? Albumin 06/04/2020 4.4 ??? Alk phos 06/04/2020 123 ??? ALT 06/04/2020 16 ??? AST 06/04/2020 16 ??? Neutrophil abs 06/04/2020 7.9* ??? Imm gran abs 06/04/2020 0.1 ??? Lymphocyte abs 06/04/2020 3.0 ??? Monocyte abs 06/04/2020 0.5 ??? Eosinophil abs 06/04/2020 0.2 ??? Basophil abs 06/04/2020 0.1 ??? Neutrophil pct 06/04/2020 67.6 ??? Imm gran pct 06/04/2020 0.5 ??? Lymphocyte pct 06/04/2020 25.5 ??? Monocyte pct 06/04/2020 4.4 ??? Eosinophil pct 06/04/2020 1.6 ??? Basophil pct 06/04/2020 0.4 ??? GFR 06/04/2020 99 ? ? Troponin T 06/04/2020 <0.01 GI Assessment & Plan: Diagnoses and all orders for this visit: Chronic idiopathic constipation (Primary) Assessment & Plan: Start Amitiza 24 micro g twice daily. Stop Linzess. Maintain adequate fiber intake and fluid intake. Follow-up in the office if no resolution of systems and annually. Diverticulosis of intestine without perforation or abscess without bleeding Assessment & Plan: No acute issues at this time. Other orders - lubiprostone (Amitiza) 24 mcg capsule; Take 1 capsule (24 mcg total) by mouth 2 (two) times a daywith meals Voice recognition software MModal Fluency Direct was used dictate and transcribe this document. Research Clerk variances may occur. Despite proofreading, typographical errors may occur. Polina Rosa MD documented in this encounter Miscellaneous Notes * Assessment & Plan Note - Polina Rosa MD - 09/16/2020 5:30 PM CDT Associated Problem(s): Chronic idiopathic constipation Start Amitiza 24 micro g twice daily. Stop Linzess. Maintain adequate fiber intake and fluid intake. Follow-up in the office if no resolution of systems and annually. * Assessment & Plan Note - Polina Rosa MD - 09/16/2020 5:29 PM CDT Associated Problem(s): Diverticulosis of intestine without perforation or abscess without bleeding No acute issues at this time. documented in this encounter Plan of Treatment Not on file documented as of this encounter Visit Diagnoses Diagnosis Chronic idiopathic constipation- Primary Unspecified constipation Diverticulosis of intestine without perforation or abscess without bleeding documented in this encounter Discontinued Medications Medication Sig Discontinue Reason Start Date End Da te linaCLOtide (LINZESS) 290 mcg capsule Take 1 capsule (290 mcg total) by mouth daily Alternate therapy 08/26/2020 09/04/2020 lubiprostone (Amitiza) 24 mcg capsule Amitiza 24 mcg capsule Reorder 09/04/2020 omeprazole (PriLOSEC) 40 mg capsule TAKE ONE CAPSULE BY MOUTH ONCE DAILY Therapy completed 06/30/2020 09/16/2020 documented as of this encounter Historical Medications * This list may reflect changes made after this encounter. ergocalciferol (VITAMIN D) 50,000 unit capsule ergocalciferol (vitamin D2) 1,250 mcg (50,000 unit) capsule TAKE 1 CAPSULE BY MOUTH ONCE PER WEEK buPROPion SR (WELLBUTRIN SR) 150 mg 12 hr tablet bupropion HCl SR 150 mg tablet,12 hr sustained-release TAKE 1 TABLET BY MOUTH TWICE A DAY 0 clobetasoL (TEMOVATE) 0.05 % ointment clobetasol 0.05 % topical ointment APPLY THIN COAT TO AFFECTED AREA TWICE A DAY 3 lubiprostone (Amitiza) 24 mcg capsule Amitiza 24 mcg capsule 0 sulfamethoxazol e-trimethoprim (BACTRIM DS) 800-160 mg per tablet Take 1 tablet by mouth every 12 (twelve) hours 08/22/2020 0 triamcinolone (KENALOG) 0.1 % ointment APPLY TWICE A DAY FOR 1 2 WEEKS NEEDED FOR IRRITATION 06/27/2020 0 added in this encounter Care Teams Melt Down Furnace Operator Relationship Specialty Start Date End Date Margarito العراقي MD [address] [place] [address] PCP - General Family Medicine 09/04/20 documented as of this encounter
--- OUTSIDE RECORDS SUMMARY | 2024-11-19 04:50 | XMS_ITS | Encounter Summary ---
Author Organization [facility] Address [address] [place] [address] Care Team Providers Care Collateral Analyst Name Role Phone Margarito العراقي MD Primary Care Provider [phone] Reason for Visit * Reason Onset Date Comments Appointment 09/09/2020 Encounter Details Date Type Department Care Team (Late st Contact Info) Description 09/09/2020 Telephone [employer] [address] [place] [address] [address] [place] [address] Maya Suresh MA Appointment Social History Tobacco Use Types Packs/Day Years Used Date Smoking Tobacco: Every Day Cigarettes Smokeless Tobacco: Never Alcohol Use Standard Drinks/Week Comments No 0 (1 standard drink = 0.6 oz pur e alcohol) Comments No Sex and Gender Information Value Date Recorded Sex Assigned at Not on file 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 Maya NUNN OR ELECTRICAL ENGINEER * Telephone Encounter - Maya Suresh MA - 09/09/2020 1:40 PM CDT lmom to move appt time up on 10/01/2020 ... Maya NUNN documented in this encounter Plan of Treatment Not on file documented as of this encounter Visit Diagnoses Not on filedocumented in this encounter Care Teams Collateral Analyst Relationship Specialty Start Date End Date Margarito العراقي MD [address] [place] [address] PCP - General Family Medicine 09/04/20 documented as of this encounter
--- OUTSIDE RECORDS SUMMARY | 2024-11-19 04:50 | XMS_ITS | Encounter Summary ---
Author Organization [facility] Address [address] [facility] [address] [place] [address] Care Team Providers Care Toll Lineman Name Role Phone Margarito العراقي MD Primary Care Provider [phone] Reason for Visit * Reason Comments Follow-up Hypertension Encounter Details Date Type Department Care Team (Late st Contact Info) Description 10/01/2020 11:30 AM TEST DATA DEVELOPER Office Visit [place] Prevention Specialist [address] [place] [address] [address] [place] [address] Liliya Ridley, CAE ENGINEER [address] [facility] [address] [place] [address] Essential hypertension (Primary Dx) Social History Tobacco Use Types Packs/Day Years Used Date Smoking Tobacco: Every Day Cigarettes Smokeless Tobacco: Never Alcohol Use Standard Drinks/Week Comments No 0 (1 standard drink = 0.6 oz pur e alcohol) Comments No Sex and Gender Information Value Date Recorded Sex Assigned at Not on file 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:46 AM TEST DATA DEVELOPER Gender Identity Not on file Sexual Orientation Not on file documented as of this encounter Last Filed Vital Signs Vital Sign Reading Time Taken Comments Blood Pressure 135/99 10/01/2020 11:22 AM TEST DATA DEVELOPER Pulse 99 10/01/2020 11:22 AM TEST DATA DEVELOPER Temperature 36.5 ??C (97.7 ??F) 10/01/2020 11:[address] Respiratory Rate 14 10/01/2020 11:22 AM TEST DATA DEVELOPER Oxygen Saturation - - Inhaled Oxygen Concentration - - Weight 73.9 kg (163 lb) 10/01/2020 11:22 AM TEST DATA DEVELOPER Height 149.9 cm (4' 11 ) 10/01/2020 11:22 AM TEST DATA DEVELOPER Body Mass Index 32.92 10/01/2020 11:22 AM TEST DATA DEVELOPER documented in this encounter Progress Notes * Keyana Liliya Cyndi, CAE ENGINEER - 10/01/2020 11:30 AM CST Cardiology note Reason for Office Visit: Chief Complaint Patient presents with ??? Follow-up ??? Hypertension History of Present Illness: Shivani Betancur is a 55 y.o. female with history of hypertension and hyperlipidemia. Has been known to have chest pain in the past but was not had negative stress tests in 2017 in 2019. Presents to the office after having issues with high blood pressure since this past winter. She she [facility] that took her off her Bystolic and [...] onblood pressure. Denies any edema. Still smoking Past Medical History: Diagnosis Date ??? Disorder [...] CPAP Review of systems: Review of Systems Constitution: Negative for decreased appetite, malaise/fatigue, weight gain [...] medication list which includes the following prescription(s): mknmyfqzelelh-fdbuboz-qokpfnwl (EXCEDRIN MIGRAINE), aspirin, atorvastatin (LIPITOR), cyclobenzaprine (FLEXERIL), duloxetinedr (CYMBALTA), estrace, hydrocodone-acetaminophen (NORCO), irbesartan (AVAPRO), isosorbide mononitrate er (IMDUR), lubiprostone (AMITIZA), narcan, yqksqxcm-kkhlzblvd-gimyzwckicmou (MAXITROL), nitrofurantoin monohydrate (MACROBID), omeprazole (PRILOSEC), pen needle, diabetic (BD ULTRA-FINE MINI PEN NEEDLE), quetiapine (SEROQUEL), and zolpidem (AMBIEN). Current Outpatient Medications Medication Sig Dispense Refill ??? ojnfigxlifyxq-naohwvx-bcfntzuh (EXCEDRIN MIGRAINE) 250-250-65 mg per tablet 1-2 [...] breakfast. ??? NARCAN 4 mg/actuation spray,non-aerosol ??? exgdpsaw-lqblipkcb-kmzcnjpiipnzu (MAXITROL) 3.5mg/mL-10,000 unit/mL-0.1 % ophthalmic suspension ??? [...] for this visit. Vital Signs: Vitals BP 135/99 (BP Location: Left arm, Patient Position: Sitting) Pulse 99 Temp 36.5 ??C (97.7 ??F) Resp 14 Ht 149.9 cm (4' 11 ) Wt 73.9 kg (163 lb) BMI 32.92 kg/m?? Vitals: 10/01/20 1122 BP: 135/99 Pulse: 99 Resp: 14 Temp: 36.5 ??C (97.7 ??F) Wt Readings from Last 3 Encounters: 10/01/20 73.9 kg (163 lb) 09/04/20 70.3 kg (155 lb) 07/08/20 74.4 kg (164 lb) Physical Exam: Physical Exam Constitutional: She is oriented to person, place, and time. She appears well- developed and well-nourished. No distress. HENT: Mouth/Throat: No oropharyngeal exudate. Eyes: Pupils are equal, round, and reactive to light. Conjunctivae are normal. Neck: No JVD present. Carotid bruit is not present. No tracheal deviation present. Cardiovascular: Normal rate, regular rhythm, S1 normal, S2 normal and intact distal pulses. Exam reveals no gallop and no decreased pulses. No murmur heard. Pulses: Carotid pulses are 2+ on the right side and 2+ on the left side. Radial pulses are 2+ on the right side and 2+ on the left side. Dorsalis pedis pulses are 2+ on the right side and 2+ on the left side. Posterior tibial pulses are 2+ on the right side and 2+ on the left side. Pulmonary/Chest: Effort normal. She has no decreased breath sounds. She has no wheezes. She has no rhonchi. She has no rales. Abdominal: Soft. Normal appearance and bowel sounds are normal. Neurological: She is alert and oriented to person, place, and time. Skin: Skin is warm and dry. She is not diaphoretic. Labs: Lab Results Component Value Date CHOL [...] Duration 109 ms QRS-Interval (MSEC) 84 ms TN-Interval (MSEC) 155 ms QT Interval 361 ms QTc 390 ms QTC Interval ms P [place] 18 deg QRS [place] -10 deg T [place] -8 deg ] Tests: 08/03/2017 Last spec [...] Tobacco Use [Z72.0] Mixed Hyperlipidemia [E78.2] Plan: decrease ibesartan to 150 mg po daily and increase metoprolol XL 25 mg po BID continue to monitor BP and HR Diagnoses and all orders for this visit: Essential hypertension (Primary) 10/01/2020 No follow-ups on file. Dr. Martin Thank you for the consult. We will be happy to follow in this patient's care. Liliya Ridley NP1:03 PM Cc:Margartio العراقي MD DATA DEVELOPER documented in this encounter Plan of Treatment Not on file documented as of this encounter Visit Diagnoses Diagnosis Essential hypertension- Primary Unspecified essential hypertension documented in this encounter Discontinued Medications Medication Sig Discontinue Reason Start Date End Da te acetaminophen-aspirin- caffeine (EXCEDRIN MIGRAINE) 250-250-65 mg per tablet 1-2 per week 10/01/2020 buPROPion SR (WELLBUTRIN SR) 150 mg 12 hr tablet bupropion HCl SR 150 mg tablet,12 hr sustained-release TAKE 1 TABLET BY MOUTH TWICE A DAY 10/01/[address] (CYMBALTA) 30 mg capsule Take 30 mg by mouth daily 03/23/2018 10/01/2020 estradiol (ESTRACE) 0.01 % (0.1 mg/gram) vaginal cream INSERT 1/2 TO 1 GRAM VAGINALLY 1 TO 2 TIMES PER WEEK 03/07/2013 10/01/2020 HYDROcodone-acetaminop hen (NORCO) 5-325 mg per tabletIndications:Pain Take 1 tablet by mouth every 6 (six) hours as needed. 01/01/2018 10/01/2020 nitrofurantoin (MACRODANTIN) 100 mg capsule Take 100 mg by mouth 2 (two) times a day 10/01/2020 sulfamethoxazole-trime thoprim (BACTRIM DS) 800-160 mg per tablet Take 1 tablet by mouth every 12 (twelve) hours 08/22/2020 10/01/2020 triamcinolone (KENALOG) 0.1 % ointment APPLY TWICE A DAY FOR 1 2 WEEKS NEEDED FOR IRRITATION 06/27/2020 10/01/2020 pen needle, diabetic (BD ULTRA-FINE MINI PEN NEEDLE) 31 gauge x 3/16 needle use one needle daily with Forteo Pen 06/30/2015 10/01/2020 documented as of this encounter Historical Medications * This list may reflect changes made after this encounter. denosumab (PROLIA) 60 mg/mL syringe Inject 60 mg under the skin every 6 (six) months 02/23/2023 added in this encounter Care Teams Toll Lineman Relationship Specialty Start Date End Date Margarito العراقي MD [address] [place] [address] PCP - General Family Medicine 09/04/20 documented as of this encounter
--- OUTSIDE RECORDS SUMMARY | 2024-11-19 04:50 | XMS_ITS | Encounter Summary ---
Author Organization [facility] Address [address] [place] [address] Phone Care Team Providers Care Metal Burnisher Name Role Phone Mendoza Parker MD Primary Care Provider [phone] Encounter Details Date Type Department Care Team (Late st Contact Info) Description 08/13/2020 Orders Only [facility] [address] [place] [address] Scanning, Provider Social History Tobacco Use Types Packs/Day Years Used Date Smoking Tobacco: Every Day Cigarettes Smokeless Tobacco: Never Alcohol Use Standard Drinks/Week Comments No 0 (1 standard drink = 0.6 oz pur e alcohol) Comments No Sex and Gender Information Value Date Recorded Sex Assigned at Not on file 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:46 AM PARTY SUPPLY SPECIALIST Gender Identity Not on file Sexual Orientation Not on file documented as of this encounter Plan of Treatment Not on file documented as of this encounter Procedures Procedure Name Priority Date/Time Associated Diagnosis Comments CARDIOLOGY DOCUMENT SCAN 08/13/2020 9:45 AM CDT documented in this encounter Results * SCAN - CARDIOLOGY (08/13/2020 9:45 AM CDT) Anatomical Region Laterality Modality Other us Provider Scanning CV CARDIAC SERVICES PROCEDURES Final Result documented in this encounter Visit Diagnoses Not on filedocumented in this encounter Care Teams Metal Burnisher Relationship Specialty Start Date End Date Mendoza Parker MD PCP - General 06/13/20 09/03/20 documented as of this encounter
--- OUTSIDE RECORDS SUMMARY | 2024-11-19 04:50 | XMS_ITS | Encounter Summary ---
Author Organization [facility] Address [address] [place] [address] Care Team Providers Care Forge Operator Helper Name Role Phone Mendoza Parker MD Primary Care Provider [phone] Mendoza Parker MD Primary Care Provider [phone]- [phone] Encounter Details Date Type Department Care Team (Late st Contact Info) Description 06/12/2020 Orders Only [facility] [address] [facility] [address] [place] [id number] Kingsley Oscar RN Social History Tobacco Use Types Packs/Day Years Used Date Smoking Tobacco: Every Day Cigarettes Smokeless Tobacco: Never Alcohol Use Standard Drinks/Week Comments No 0 (1 standard drink = 0.6 oz pur e alcohol) Comments No Sex and Gender Information Value Date Recorded Sex Assigned at Not on file 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:46 AM SAP FICO ARCHITECT Gender Identity Not on file Sexual Orientation Not on file documented as of this encounter Plan of Treatment Not on file documented as of this encounter Visit Diagnoses Not on filedocumented in this encounter Care Teams Forge Operator Helper Relationship Specialty Start Date End Date Mendoza Parker MD PCP - General 02/18/17 06/12/20 Mendoza Parker MD PCP - General 06/13/20 09/03/20 documented as of this encounter
--- OUTSIDE RECORDS SUMMARY | 2024-11-19 04:50 | XMS_ITS | Encounter Summary ---
Author Organization [facility] Address [address] [place] [address] Phone Care Team Providers Care Manager Net Name Role Phone Mendoza Parker MD Primary Care Provider [phone]- [phone] Encounter Details Date Type Department Care Team (Late st Contact Info) Description 06/13/[address] [facility] [address] [facility] Medical Office Building [address] [place] [address] Urbano Delacruz MD [address] [id number] Social History Tobacco Use Types Packs/Day Years Used Date Smoking Tobacco: Every Day Cigarettes Smokeless Tobacco: Never Alcohol Use Standard Drinks/Week Comments No 0 (1 standard drink = 0.6 oz pur e alcohol) Comments No Sex and Gender Information Value Date Recorded Sex Assigned at Not on file 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:46 AM CANE WEIGHER Gender Identity Not on file Sexual Orientation Not on file documented as of this encounter Miscellaneous Notes * Telephone Encounter - Phoebe Arroyo RN - 06/13/2020 10:38 AM CDT Images from the original note were not included. Urbano Delacruz MD P [facility] Clinical Pool ?HI reviewed Adalid prior labs 03/2020 D 24-CMP wnl. Appears D has improved at goal 49 recent CMP wnl. 05/2020 labs ??Continue 3000 Ius daily of D . Patient to be scheduled for Prolia. ??But was to be transitioned to Reclast 05/2020 based on our lasvisit note of 07/2019. ??Can receive an additional dose of PRolia will plan for Reclast transition at follow up. Please ensure she has follow up in the interval Thanks Pt is scheduled for Prolia today 06/13/2020. She has appointment with Dr Delacruz in 10/2020 Pt aware to continue D3 3000 international units/day documented in this encounter Plan of Treatment Not on file documented as of this encounter Visit Diagnoses Not on filedocumented in this encounter Care Teams Manager Net Relationship Specialty Start Date End Date Mendoza Parker MD PCP - General 06/13/20 09/03/20 documented as of this encounter
--- OUTSIDE RECORDS SUMMARY | 2024-11-19 04:50 | XMS_ITS | Encounter Summary ---
Author Organization [facility] Address [address] [place] [address] Phone Care Team Providers Care Radio Installer Name Role Phone Margarito العراقي MD Primary Care Provider [phone] Encounter Details Date Type Department Care Team (Late st Contact Info) Description 01/08/[address] Medical Office Building [address] [place] [address] Urbano Delacruz MD [facility] [address] [id number] Social History Tobacco Use Types Packs/Day Years Used Date Smoking Tobacco: Every Day Cigarettes Smokeless Tobacco: Never Alcohol Use Standard Drinks/Week Comments No 0 (1 standard drink = 0.6 oz pur e alcohol) Comments No Sex and Gender Information Value Date Recorded Sex Assigned at Not on file 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:46 AM CONFIGURATION SPECIALIST Gender Identity Not on file Sexual Orientation Not on file documented as of this encounter Miscellaneous Notes * Telephone Encounter - Phoebe Arroyo RN - 01/08/2021 1:18 PM CST Returned call, unable to lvm on [phone], lvm on cell # IGURATION SPECIALIST documented in this encounter Plan of Treatment Not on file documented as of this encounter Visit Diagnoses Not on filedocumented in this encounter Care Teams Radio Installer Relationship Specialty Start Date End Date Margarito العراقي MD [address] [place] [address] PCP - General Family Medicine 09/04/20 documented as of this encounter
--- OUTSIDE RECORDS SUMMARY | 2024-11-19 04:50 | XMS_ITS | Encounter Summary ---
Author Organization [facility] Address [address] [place] [address] Care Team Providers Care Writer Technical Publications Name Role Phone Mendoza Parker MD Primary Care Provider [phone] Reason for Visit * Reason Onset Date Comments switching pcp 06/10/2020 Encounter Details Date Type Department Care Team (Late st Contact Info) Description 06/10/2020 Telephone [facility] [address] [place] [id number] Mendoza Parker MD [address] [address] switching pcp Social History Tobacco Use Types Packs/Day Years Used Date Smoking Tobacco: Every Day Cigarettes Smokeless Tobacco: Never Alcohol Use Standard Drinks/Week Comments No 0 (1 standard drink = 0.6 oz pur e alcohol) Comments No Sex and Gender Information Value Date Recorded Sex Assigned at Not on file 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:46 AM WHEEL INSPECTOR Gender Identity Not on file Sexual Orientation Not on file documented as of this encounter Miscellaneous Notes * Telephone Encounter - Mary Carmen - 06/11/2020 12:53 PM CDT Thank you. * Telephone Encounter - Alyssa Nieves RN - 06/11/2020 12:17 PM CDT QA nurse has noted the message. Will be sending letter to patient indicating her voluntarily decision to leave Dr. MOHAN's practice. Additionally an FYI will be placed on her chart noting the same. Thank you. * Telephone Encounter - Mary Carmen - 06/10/2020 11:20 AM CDT Pt is switching pcp to Dr. Korey العراقي in [place] -states it's closer for her Wants to thank [facility] and staff for everything. ROR will be coming. documented in this encounter Plan of Treatment Not on file documented as of this encounter Visit Diagnoses Not on filedocumented in this encounter Care Teams Writer Technical Publications Relationship Specialty Start Date End Date Mendoza Parker MD PCP - General 02/18/17 06/12/20 documented as of this encounter
--- OUTSIDE RECORDS SUMMARY | 2024-11-19 04:50 | XMS_ITS | Encounter Summary ---
Author Organization [facility] Address [address] [place] [address] Care Team Providers Care Financial Services Professional Name Role Phone Margarito العراقي MD Primary Care Provider [phone] Reason for Visit * Diagnostic Imaging (Routine) - Closed Specialty Diagnoses / Procedures Referred By Val t Referred To Contact Procedures Breast Imaging US Outside Reference Nancy Gonzalez, GLOBAL MANAGER Phone: tel: fax: Referral ID Status Reason Start Date Expiration Date Visits Re quested Visits Authorized [id number] Closed 08/06/2021 09/05/2022 1 1 Encounter Details Date Type Department Care Team (Latest Contact Info) Description 07/30/2021 - 07/30/2021 12:04 AM CDT Hospital Encounter [facility] [address] [place] [address] Discharge Disposition: Discharge to home or self care Social History Tobacco Use Types Packs/Day Years Used Date Smoking Tobacco: Every Day Cigarettes Smokeless Tobacco: Never Alcohol Use Standard Drinks/Week Comments No 0 (1 standard drink = 0.6 oz pur e alcohol) Comments No Sex and Gender Information Value Date Recorded Sex Assigned at Not on file 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:46 AM CAN REPAIRER Gender Identity Not on file Sexual [...] mg tablet 1 mg 11/20/2020 2 zoledronic rgpt-erzmogoG-r ater (RECLAST) 5 mg/100 mL piggyback IV [...] Priority Date/Time Associated Diagnosis Comments BREAST IMAGING US OUTSIDE REFERENCE Routine 07/30/2021 12:00 AM CDT documented in this encounter Results * Breast Imaging US Outside Reference (07/30/2021 12:00 AM CDT) Impressions [facility] - 08/06/2021 11:00 AM CDT These images are for Reference purposes only and have not been reviewed by [facility] Radiology. ??There will be no report generated by a [facility] Radiologist. Narrative [facility] - 08/06/2021 11:00 AM CDT EXAMINATION: ??Images For Reference Purposes Only us Nancy Gonzalez GLOBAL MANAGER IMG MAMMO PROCEDURES Final R esult [facility] documented in this encounter Visit Diagnoses Not on filedocumented in this encounter Care Teams Financial Services Professional Relationship Specialty Start Date End Date Margarito العراقي MD [address] [place] [address] PCP - General Family Medicine 09/04/20 documented as of this encounter
--- OUTSIDE RECORDS SUMMARY | 2024-11-19 04:50 | XMS_ITS | Encounter Summary ---
Author Organization [facility] Address [address] [place] [address] Phone Care Team Providers Care Corporate Real Estate Specialist Name Role Phone Mendoza Parker MD Primary Care Provider [phone]- [phone] Encounter Details Date Type Department Care Team (Late st Contact Info) Description 06/15/2020 Orders Only [facility] [address] [facility] Medical Office Building [address] [place] [address] Elly Torres MD [address] [facility] [address] [place] [address] Social History Tobacco Use Types Packs/Day Years Used Date Smoking Tobacco: Every Day Cigarettes Smokeless Tobacco: Never Alcohol Use Standard Drinks/Week Comments No 0 (1 standard drink = 0.6 oz pur e alcohol) Comments No Sex and Gender Information Value Date Recorded Sex Assigned at Not on file 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:46 AM PICKLE SOLUTION MAKER Gender Identity Not on file Sexual Orientation Not on file documented as of this encounter Plan of Treatment Not on file documented as of this encounter Visit Diagnoses Not on filedocumented in this encounter Care Teams Corporate Real Estate Specialist Relationship Specialty Start Date End Date Mendoza Parker MD PCP - General 06/13/20 09/03/20 documented as of this encounter
--- OUTSIDE RECORDS SUMMARY | 2024-11-19 04:50 | XMS_ITS | Encounter Summary ---
Author Organization [facility] Healthcare Address [address] [place] [address] Care Team Providers Care Transportation Planner Name Role Phone Margarito العراقي MD Primary Care Provider [phone] Raymond Vela MD Unavailable [phone] Reason for Referral * Diagnostic Imaging (Routine) - Closed Specialty Diagnoses / Procedures Referred By Francescoac t Referred To Contact Diagnoses Abnormal mammography Procedures US Breast Left Limited Nancy Gonzalez CNS Phone: tel: fax: [address] [address] Referral ID Status Reason Start Date Expiration Date Visits Re quested Visits Authorized [id number] Closed 08/05/2021 09/04/2022 1 1 Reason for Visit * Diagnostic Imaging (Routine) - Closed Specialty Diagnoses / Procedures Referred By Contac t Referred To Contact Diagnoses Abnormal mammography Procedures US Breast Left Limited Nancy Gonzalez CNS Phone: tel: fax: [address] [address] Referral ID Status Reason Start Date Expiration Date Visits Re quested Visits Authorized [id number] Closed 08/05/2021 09/04/2022 1 1 Encounter Details Date Type Department Care Team (Latest Contact Info) Description 08/17/2021 9:30 AM CDT - 08/17/2021 11:59 PM CDT Hospital Encounter [facility] [address] [place] [address] Aft, Shefali Rollins MD PhD [address] [place] [address] Nancy Gonzalez CNS [address] [address] Abnormal mammography Discharge Disposition: Discharge to home or self care Social History Tobacco Use Types Packs/Day Years Used Date Smoking Tobacco: Every Day Cigarettes Smokeless Tobacco: Never Alcohol Use Standard Drinks/Week Comments No 0 (1 standard drink = 0.6 oz pur e alcohol) Comments No Sex and Gender Information Value Date Recorded Sex Assigned at Not on file 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:46 AM LAW PROFESSOR Gender Identity Not on file Sexual Orientation [...] 1 CAPSULE BY MOUTH ONCE PER WEEK HYDROcodone-stas taminophen (NORCO) 5-325 mg per tablet Take 1 tablet by mouth 3 (three) times a day 08/13/2021 NARCAN 4 mg/actuation spray,non-aeros ol 10/02/2019 pregabalin [...] mg tablet 1 mg 11/20/2020 2 zoledronic gezr-rudtbxbT-t ater (RECLAST) 5 mg/100 mL piggyback IV [...] Procedure Name Priority Date/Time Associated Diagnosis Comments US BREAST LEFT LIMITED Schedule Routine, Read Routine (OP Routine) 08/17/2021 10:10 AM CDT Abnormal mammography documented in this encounter Results * US Breast Left [...] 2022. Electronically signed by: Kirsty Friedman M.D. Nancy Gonzalez CUSTOMER SUPPORT ASSOCIATE IMG MAMMO PROCEDURES Final R esult documented in this encounter Visit Diagnoses Diagnosis Abnormal mammography Abnormal mammogram, unspecified documented in this encounter Care Teams Transportation Planner Relationship Specialty Start Date End Date Margarito العراقي MD [address] [place] [address] PCP - General Family Medicine 09/04/20 Raymond Vela MD [address] [place] [address] Referring Physician Obstetrics and Gynecology 08/17/21 documented as of this encounter
--- OUTSIDE RECORDS SUMMARY | 2024-11-19 04:50 | XMS_ITS | Encounter Summary ---
Author Organization [facility] Address [address] [place] [address] Phone Care Team Providers Care Eligibility Analyst Name Role Phone Margarito العراقي MD Primary Care Provider + [phone] Reason for Visit * Reason Onset Date Comments Treatment Plan Update 10/28/2020 Reclast Encounter Details Date Type Department Care Team (Late st Contact Info) Description 10/28/[address] Medical Office Building 2 [address] [place] [address] Urbano Delacruz MD [facility] [address] [address] Treatment Plan Update (Reclast) Social History Tobacco Use Types Packs/Day Years Used Date Smoking Tobacco: Every Day Cigarettes Smokeless Tobacco: Never Alcohol Use Standard Drinks/Week Comments No 0 (1 standard drink = 0.6 oz pur e alcohol) Comments No Sex and Gender Information Value Date Recorded Sex Assigned at Not on file 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:46 AM MOVIE STUNT PERFORMER Gender Identity Not on file Sexual Orientation Not on file documented as of this encounter Miscellaneous Notes * Telephone Encounter - Kelli Cruz DNP - 12/15/2020 3:17 PM CST done E STUNT PERFORMER * Addendum Note - Melanie Aguilar CMA - 12/15/2020 11:40 AM CSTAddended by: MELANIE AGUILAR on: 12/15/2020 11:40 AM Modules accepted: Orders E STUNT PERFORMER * Telephone Encounter - Melanie Aguilar CMA - 12/15/2020 11:16 AM CST Kelli ochoa you please update Therapy plan for Reclast at [place] [phone] ([facility]). Infusion Appointment has been requested pt is aware WC will call to schedule Reclast E STUNT PERFORMER * Addendum Note - Melanie Aguilar CMA - 11/10/2020 12:24 PM CSTAddended by: MELANIE AGUILAR on: 11/10/2020 12:24 PM Modules accepted: Orders E STUNT PERFORMER * Telephone Encounter - Melanie Aguilar CMA - 11/10/2020 12:15 PM CST Labs Completed 11/05/2020 CA-9.7 CR-0.67 CRCL-105.41 Vitamin D-79 AGE-55 WT-157 Infusion Appointment had been requested E STUNT PERFORMER * Telephone Encounter - Elyssa Robertson CPhT - 11/05/2020 11:44 AM MOVIE STUNT PERFORMER COMPLETE E STUNT PERFORMER * Telephone Encounter - Melanie Aguilar CMA - 10/29/2020 8:06 AM CST Returned pt call and Spoke with pt and let pt know that lab work needs to be completed prior to scheduling Reclast and that abs have been mailed E STUNT PERFORMER * Telephone Encounter - Phoebe Arroyo RN - 10/28/2020 3:36 PM CST Please check insurance for Reclast [facility] New Labs pending Need to enter therapy plan, and inf order Remind pt to be well hydrated E STUNT PERFORMER documented in this encounter Plan of Treatment Not on file documented as of this encounter Visit Diagnoses Diagnosis Age-related osteoporosis without current pathological fracture- Primary documented in this encounter Care Teams Eligibility Analyst Relationship Specialty Start Date End Date Margarito العراقي MD [address] [place] [address] PCP - General Family Medicine 09/04/20 documented as of this encounter
--- OUTSIDE RECORDS SUMMARY | 2024-11-19 04:50 | XMS_ITS | Encounter Summary ---
Author Organization [facility] Address [address] [facility] [address] [place] [address] Phone Care Team Providers Care Federal Judicial Law Clerk Name Role Phone Mendoza Parker MD Primary Care Provider [phone] Reason for Visit * Reason Onset Date Comments Patient issue/concern 06/10/2020 Encounter Details Date Type Department Care Team (Late st Contact Info) Description 06/10/[address] Medical Office Building [address] [place] [address] Urbano Delacruz MD [address] [place] [address] Patient issue/concern Social History Tobacco Use Types Packs/Day Years Used Date Smoking Tobacco: Every Day Cigarettes Smokeless Tobacco: Never Alcohol Use Standard Drinks/Week Comments No 0 (1 standard drink = 0.6 oz pur e alcohol) Comments No Sex and Gender Information Value Date Recorded Sex Assigned at Not on file 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:46 AM SIMULATION ENGINEER Gender Identity Not on file Sexual Orientation Not on file documented as of this encounter Miscellaneous Notes * Telephone Encounter - Phoebe Arroyo RN - 06/10/2020 1:16 PM CDT I confirmed with pt , she has a Prolia injection scheduled for 06/13/2020 at [facility] documented in this encounter Plan of Treatment Not on file documented as of this encounter Visit Diagnoses Not on filedocumented in this encounter Care Teams Federal Judicial Law Clerk Relationship Specialty Start Date End Date Mendoza Parker MD PCP - General 02/18/17 06/12/20 documented as of this encounter
--- OUTSIDE RECORDS SUMMARY | 2024-11-19 04:50 | XMS_ITS | Encounter Summary ---
Author Organization [facility] Address [address] [place] [address] Care Team Providers Care Clerical Assistant Name Role Phone Mendoza Parker MD Primary Care Provider [phone] Encounter Details Date Type Department Care Team (Late st Contact Info) Description 08/25/2020 Telephone [facility] Gastroenterology at [address] [place] [address] Aleyda Garza MA Social History Tobacco Use Types Packs/Day Years Used Date Smoking Tobacco: Every Day Cigarettes Smokeless Tobacco: Never Alcohol Use Standard Drinks/Week Comments No 0 (1 standard drink = 0.6 oz pur e alcohol) Comments No Sex and Gender Information Value Date Recorded Sex Assigned at Not on file 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:46 AM 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 If it does not work she is to call the office back to discuss further treatment. * Telephone Encounter - Polina Rosa MD - 08/26/2020 1:08 PM CDT One should not use both,,, either Amitizia or Linzess... ask to try the full dose Linzess for now since already ordered. * Telephone Encounter - Aleyda Garza MA - 08/26/2020 12:13 PM CDT Called the pt. She is asking if Amatiza can be called in also. She said she has had good results inthe past with taking Amatiza daily and then Linzess as a rescue medication when she knows she is getting backed up. Pt is scheduled for an office visit on 09-04-2020 * Telephone Encounter - Polina Rosa MD - 08/26/2020 11:14 AM CDT I sent prescription for the patient for Linzess 1 capsule daily. Please let the patient know and give a follow up in our office in 1 week. The she should try to start on the Linzess today. * Telephone Encounter - Aleyda Garza MA - 08/25/2020 10:11 AM CDT Pt called in and said she is having a flare of constipation She has been constipated for the lastfive days, she has tried tea, suppositories, fleet enema, x-lax, and nothing has helped to have anykind of a bm. Pt is wondering what she should do, or if Dr. Rosa feels she should try a bottleof mag citrate? Please advise documented in this encounter Plan of Treatment Not on file documented as of this encounter Visit Diagnoses Not on filedocumented in this encounter Care Teams Clerical Assistant Relationship Specialty Start Date End Date Mendoza Parker MD PCP - General 06/13/20 09/03/20 documented as of this encounter
--- OUTSIDE RECORDS SUMMARY | 2024-11-19 04:50 | XMS_ITS | Encounter Summary ---
Author Organization [facility] Address [address] [place] [address] Phone Care Team Providers Care Marble Setter Helper Name Role Phone Margarito العراقي MD Primary Care Provider + [phone] Encounter Details Date Type Department Care Team (Late st Contact Info) Description 12/15/2020 Telephone [facility] [address] [facility] Medical Office Building 2 [address] [place] [address] Urbano Delacruz MD [facility] [id number] Social History Tobacco Use Types Packs/Day Years Used Date Smoking Tobacco: Every Day Cigarettes Smokeless Tobacco: Never Alcohol Use Standard Drinks/Week Comments No 0 (1 standard drink = 0.6 oz pur e alcohol) Comments No Sex and Gender Information Value Date Recorded Sex Assigned at Not on file 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:46 AM TAX INVESTIGATOR Gender Identity Not on file Sexual Orientation Not on file documented as of this encounter Miscellaneous Notes * Telephone Encounter - Chaitanya Lopez CMA - 12/15/2020 2:05 PM CST Spoke with patient. She is aware. ----- Message from Urbano Delacruz MD sent at 11/24/2020 10:25 AM TAX INVESTIGATOR ----- Please let patient know to stop her prescription D her level 79. Continue 3000 Ius daily. INVESTIGATOR INVESTIGATOR documented in this encounter Plan of Treatment Not on file documented as of this encounter Visit Diagnoses Not on filedocumented in this encounter Care Teams Marble Setter Helper Relationship Specialty Start Date End Date Margarito العراقي MD [address] [place] [address] PCP - General Family Medicine 09/04/20 documented as of this encounter
--- OUTSIDE RECORDS SUMMARY | 2024-11-19 04:50 | XMS_ITS | Encounter Summary ---
Author Organization [facility] Address [address] [place] [address] Care Team Providers Care Gunner'S Mate Name Role Phone Margarito العراقي MD Primary Care Provider Encounter Details Date Type Department Care Team (Late st Contact Info) Description 01/23/2021 1:45 PM DIAPER MACHINE TENDER Office Visit [facility] [address] [address] [place] [address] Corina Zambrano, [facility] [address] [facility] [facility] [address] [place] [address] Obstructive sleep apnea syndrome (Primary Dx); Hypersomnia; Obesity (BMI 30-39.9); Chronic insomnia; Sleep-wake cycle disorder Social History Tobacco Use Types Packs/Day Years Used Date Smoking Tobacco: Every Day Cigarettes Smokeless Tobacco: Never Alcohol Use Standard Drinks/Week Comments No 0 (1 standard drink = 0.6 oz pur e alcohol) Comments No Sex and Gender Information Value Date Recorded Sex Assigned at Not on file 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:46 AM DIAPER MACHINE TENDER Gender Identity Not on file Sexual Orientation Not on file documented as of this encounter Last Filed Vital Signs Vital Sign Reading Time Taken Comments Blood Pressure 145/99 01/23/2021 1:53 PM DIAPER MACHINE TENDER Pulse 98 01/23/2021 1:53 PM DIAPER MACHINE TENDER Temperature - - Respiratory Rate - - Oxygen Saturation - - Inhaled Oxygen Concentration - - Weight 76.7 kg (169 lb) 01/23/2021 1:53 PM DIAPER MACHINE TENDER Height 149.9 cm (4' 11 ) 01/23/2021 1:53 PM DIAPER MACHINE TENDER Body Mass Index 34.13 01/23/2021 1:53 PM DIAPER MACHINE TENDER documented in this encounter Progress Notes * Corina Zambrano, STORE PROMOTER - 01/23/2021 1:45 PM CST Chief complaints: NEO, hypersomnia. Delayed sleep cycle diorder. 1. Moderate NEO. Pt endorses she has been compliant to the therapy. No change in her sleep schedulewith going to bed midnight-2 am and awaken between 5-8am. Tolerating Full mask. Following her last visit she received a new auto CPAP 5-11 cm. Tolerating well. It has been workingwell. 2. Pt reports Improved control of her daytime sleepiness. The pt's Floyd Sleepiness Scale (ESS) is: 2 (was 8 during the last visit). 3. Obesity. No acute changes since her last visit 4. 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 Stable. 5. Muscle jerking. She has noticed [...] file Gets together: Not on file Attends christianity service: Not on file Active member of [...] discussed. -will further adjust the setting to 7-11 cm as the median is 7.5 Date range: 12/31/2020 through 01/21/2021 Compliance rate: [...] is working well. Will follow up in 12 months. 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
--- OUTSIDE RECORDS SUMMARY | 2024-11-19 04:50 | XMS_ITS | Encounter Summary ---
Author Organization [facility] Address [address] [place] [address] Phone Care Team Providers Care Manager Support Services Name Role Phone Margarito العراقي MD Primary Care Provider + [phone] Encounter Details Date Type Department Care Team (Late st Contact Info) Description 10/28/2020 Telephone [facility] [address] [facility] Medical Office Building [address] [place] [address] Urbano Delacruz MD [address] [id number] Social History Tobacco Use Types Packs/Day Years Used Date Smoking Tobacco: Every Day Cigarettes Smokeless Tobacco: Never Alcohol Use Standard Drinks/Week Comments No 0 (1 standard drink = 0.6 oz pur e alcohol) Comments No Sex and Gender Information Value Date Recorded Sex Assigned at Not on file 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:46 AM MARKETING DATABASE CONSULTANT Gender Identity Not on file Sexual Orientation Not on file documented as of this encounter Miscellaneous Notes * Telephone Encounter - Phoebe Arroyo RN - 10/28/2020 3:33 PM CST Images from the original note were not included. Urbano Delacruz MD P [facility] Clinical [place] ?Schedule reclast labs ordered. Remind patient to hydrate and take tylenol prior to the infusion Labs pending ETING DATABASE CONSULTANT documented in this encounter Plan of Treatment Not on file documented as of this encounter Visit Diagnoses Not on filedocumented in this encounter Care Teams Manager Support Services Relationship Specialty Start Date End Date Margarito العراقي MD [address] [place] [address] PCP - General Family Medicine 09/04/20 documented as of this encounter
--- OUTSIDE RECORDS SUMMARY | 2024-11-19 04:50 | XMS_ITS | Encounter Summary ---
Author Organization [facility] Address [address] [place] [address] Phone Care Team Providers Care Health Club Attendant Name Role Phone Margarito العراقي MD Primary Care Provider [phone] Reason for Visit * Reason Onset Date Comments Patient issue/concern 01/08/2021 reclast/co vid vaccine Encounter Details Date Type Department Care Team (Late st Contact Info) Description 01/08/[address] Medical Office Building [address] [place] [address] Urbano Delacruz MD [address] [place] [address] Patient issue/concern (reclast/covid vaccine) Social History Tobacco Use Types Packs/Day Years Used Date Smoking Tobacco: Every Day Cigarettes Smokeless Tobacco: Never Alcohol Use Standard Drinks/Week Comments No 0 (1 standard drink = 0.6 oz pur e alcohol) Comments No Sex and Gender Information Value Date Recorded Sex Assigned at Not on file 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:46 AM FREEZER ASSISTANT Gender Identity Not on file Sexual Orientation Not on file documented as of this encounter Miscellaneous Notes * Telephone Encounter - Phoebe Arroyo RN - 01/09/2021 12:27 PM CST Pt is aware ZER ASSISTANT * Telephone Encounter - Urbano Delacruz MD - 01/09/2021 11:47 AM CST MAGY Geraldine , Think if you are feeling okay then go ahead and proceed with reclast. There is no contraindication. If you feel poorly you can reschedule. ZER ASSISTANT * Telephone Encounter - Phoebe Arroyo RN - 01/08/2021 4:42 PM CST Shivani received Covid vaccine today, scheduled for Reclast Tuesday, ok to get reclast, or reschedule? ZER ASSISTANT documented in this encounter Plan of Treatment Not on file documented as of this encounter Visit Diagnoses Not on filedocumented in this encounter Care Teams Health Club Attendant Relationship Specialty Start Date End Date Margarito العراقي MD [address] [place] [address] PCP - General Family Medicine 09/04/20 documented as of this encounter
--- OUTSIDE RECORDS SUMMARY | 2024-11-19 04:50 | XMS_ITS | Encounter Summary ---
Author Organization [facility] Address [address] [place] [address] Care Team Providers Care Tire Beader Maker Name Role Phone Margarito العراقي MD Primary Care Provider [phone] Encounter Details Date Type Department Care Team (Late st Contact Info) Description 06/05/2021 Telephone [employer] [address] [address] Mickey Martin MD [address] [place] [address] Social History Tobacco Use Types Packs/Day Years Used Date Smoking Tobacco: Every Day Cigarettes Smokeless Tobacco: Never Alcohol Use Standard Drinks/Week Comments No 0 (1 standard drink = 0.6 oz pur e alcohol) Comments No Sex and Gender Information Value Date Recorded Sex Assigned at Not on file 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:46 AM SPORTS LEADERSHIP INSTRUCTOR Gender Identity Not on file Sexual Orientation Not on file documented as of this encounter Miscellaneous Notes * Telephone Encounter - Laurie Urbina MA - 06/05/2021 10:36 AM CDT [id number] response to pt message left on machine. documented in this encounter Plan of Treatment Not on file documented as of this encounter Visit Diagnoses Not on filedocumented in this encounter Care Teams Tire Beader Maker Relationship Specialty Start Date End Date Margarito العراقي MD [address] [place] [address] PCP - General Family Medicine 09/04/20 documented as of this encounter
--- OUTSIDE RECORDS SUMMARY | 2024-11-19 04:50 | XMS_ITS | Encounter Summary ---
Author Organization [facility] Address [address] [place] [address] Phone Care Team Providers Care Assistant Professor Of Psychology Name Role Phone Margarito العراقي MD Primary Care Provider [phone] Encounter Details Date Type Department Care Team (Late st Contact Info) Description 11/06/2020 Orders Only [facility] [address] [facility] Medical Office Building [address] [place] [address] Urbano Delacruz MD [address] [id number] Social History Tobacco Use Types Packs/Day Years Used Date Smoking Tobacco: Every Day Cigarettes Smokeless Tobacco: Never Alcohol Use Standard Drinks/Week Comments No 0 (1 standard drink = 0.6 oz pur e alcohol) Comments No Sex and Gender Information Value Date Recorded Sex Assigned at Not on file 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:46 AM ORDER PLANNER Gender Identity Not on file Sexual Orientation Not on file documented as of this encounter Miscellaneous Notes * Result Encounter Note - Urbano Delacruz MD - 11/24/2020 10:25 AM CST Please let patient know to stop her prescription D her level 79. Continue 3000 Ius daily. R PLANNER documented in this encounter Plan of Treatment Not on file documented as of this encounter Procedures Procedure Name Priority Date/Time Associated Diagnosis Comments SCAN - LABS Routine 11/05/2020 documented in this encounter Results * SCAN - LABS (11/05/2020) Urbano Delacruz MD Final Result documented in this encounter Visit Diagnoses Not on filedocumented in this encounter Care Teams Assistant Professor Of Psychology Relationship Specialty Start Date End Date Margarito العراقي MD [address] [place] [address] PCP - General Family Medicine 09/04/20 documented as of this encounter
--- OUTSIDE RECORDS SUMMARY | 2024-11-19 04:50 | XMS_ITS | Encounter Summary ---
Author Organization [facility] Address [address] [place] [address] Phone Care Team Providers Care Forms Designer Name Role Phone Margarito العراقي MD Primary Care Provider [phone] Reason for Visit * Episode Based Medications (Routine) - Closed Specialty Diagnoses / Procedures Referred By Contac t Referred To Contact Diagnoses Age-related osteoporosis without current pathological fracture Procedures DE ZOLEDRONIC ACID 1MG Urbano Delacruz MD [address] [place] [address] Phone: tel: fax: [facility] Infusion Therapy [address] [place] [address] Building [address] [place] [address] Phone: tel: Referral ID Status Reason Start Date Expiration Date Visits Re quested Visits Authorized [id number] Closed 01/09/2021 11/20/2021 99 99 Encounter Details Date Type Department Care Team (Late st Contact Info) Description 02/02/2021 1:00 PM CDT Infusion [facility] [address] [place] [address] [address] [place] [address] Age-related osteoporosis without current pathological fracture (Primary Dx) Social History Tobacco Use Types Packs/Day Years Used Date Smoking Tobacco: Every Day Cigarettes Smokeless Tobacco: Never Alcohol Use Standard Drinks/Week Comments No 0 (1 standard drink = 0.6 oz pur e alcohol) Comments No Sex and Gender Information Value Date Recorded Sex Assigned at Not on file 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:46 AM WOOD ENGRAVER Gender Identity Not on file Sexual Orientation Not on file documented as of this encounter Last Filed Vital Signs Vital Sign Reading Time Taken Comments Blood Pressure 151/92 02/02/2021 1:11 PM CDT Pulse 103 02/02/2021 1:11 PM CDT Temperature - - Respiratory Rate - - Oxygen Saturation - - Inhaled Oxygen Concentration - - Weight - - Height - - Body Mass Index - - documented in this encounter Progress Notes * Leidy Vizcarra, RN - 02/02/2021 1:00 PM CDT Pt here today for Reclast infusion. Pt denies any recent fevers or illness. PIV started and VSS. Ptgiven informational sheet prior to start of infusion. Pt instructed to ring nam for any help or needs and pt verbalized understanding. Infusion complete and pt tolerated well. documented in this encounter Plan of Treatment Not on file documented as of this encounter Visit Diagnoses Diagnosis Age-related osteoporosis without current pathological fracture- Primary documented in this encounter Administered Medications Inactive Administered Medications - up to 3 most recent administrations Medication Order MAR Action Action Date Dose Rate Site sodium chloride 0.9% flush 10 mL 10 mL, intravenous, As needed, line care, Starting on Tue02/02/21 at 1306, Flush pre and post IV catheter use.Indications:Age-related osteoporosis without current pathological fracture Given 02/02/2021 1:15 PM CDT 10 mL zoledronic sstc-dhjozguN-tfzzy (RECLAST) 5 mg/100 mL premix 5 mg 5 mg, intravenous, at 300 mL/hr, Administer over 20 Minutes, Once, On Tue02/02/21 at 1345, For 1 doseIndications:Age-related osteoporosis without current pathological fracture New Bag 02/02/2021 1:19 PM CDT 5 mg 300 mL/hr documented in this encounter Orders Nursing Count Last Ordered Date First Orde red Date VITAL SIGNS 1 02/02/2021 documented in this encounter Care Teams Forms Designer Relationship Specialty Start Date End Date Margarito العراقي MD [address] [place] [address] PCP - General Family Medicine 10/15/20 documented as of this encounter
--- OUTSIDE RECORDS SUMMARY | 2024-11-19 04:50 | XMS_ITS | Encounter Summary ---
Author Organization [facility] Address [address] [place] [address] Phone Care Team Providers Care Tattoo Technician Name Role Phone Margarito العراقي MD Primary Care Provider [phone] Raymond Vela MD Unavailable Reason for Visit * Reason Comments Consult * Consultation (Routine) - Closed Specialty Diagnoses / Procedures Referred By Val adkins Referred To Contact Surgical Oncology Diagnoses Abnormal findings on diagnostic imaging of breast Left breast mass Raymond Vela MD [address] [place] [address] Phone: tel: fax: Nancy Gonzalez [address] [address] Phone: tel: fax: Referral ID Status Reason Start Date Expiration Date V isits Requested Visits Authorized [id number] Closed Specialty Services Required 07/31/2021 08/30/2022 1 1 Encounter Details Date Type Department Care Team (Late st Contact Info) Description 08/17/2021 9:00 AM CDT Office Visit [facility] Surgery [facility] Advanced Medicine 5th [place] [address] [place] [address] Nancy Gonzalez [address] [address] Abnormal findings on diagnostic imaging of breast; Left breast mass Social History Tobacco Use Types Packs/Day Years Used Date Smoking Tobacco: Every Day Cigarettes Smokeless Tobacco: Never Alcohol Use Standard Drinks/Week Comments No 0 (1 standard drink = 0.6 oz pur e alcohol) Comments No Sex and Gender Information Value Date Recorded Sex Assigned at Not on file 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:46 AM 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 Gender Identity Not on file Sexual Orientation Not on file documented as of this encounter Last Filed Vital Signs Vital Sign Reading Time Taken Comments Blood Pressure - - Pulse - - Temperature - - Respiratory Rate - - Oxygen Saturation - - Inhaled Oxygen Concentration - - Weight 72.6 kg (160 lb 0.9 oz) 08/17/2021 9:21 A M CDT Height 152.4 cm (5') 08/17/2021 9:21 AM CDT Body Mass Index 31.26 08/17/2021 9:21 AM CDT documented in this encounter Progress Notes * Kyleigh Gonzalezjavad Dickson, SAND BLASTER - 08/17/2021 9:00 AM CDT PATIENT NAME: Shivani Betancur DATE OF : 1965 DATE OF OFFICE VISIT: 08/17/2021 REFERRING MD: Raymond Vela MD A consultation was requested by Raymond Vela MD for abnormal image. CHIEF COMPLAINT: Shivani Betancur is a 55 y.o. female with chief complaint of left breast abnormal image. HPI: The patient is a 55 y.o. female who went for routine screening mammograms at [facility] on 06/25/2021 where they detected a mass in the lower inner quadrant of her left breast. She then return for additional views on July 30 including diagnostic mammogram and ultrasound where theynoted a 4 x 7 millimeter nodule at the 1 o'clock position of the left breast with recommendation ofa biopsy. Dr. Raymond Vela requested that I see this patient for evaluation of this finding. The patient notes no change in the size of her breast, the shape of her breast or the appearance of her breast. She denies any nipple changes or nipple discharge. PAST MEDICAL HISTORY: She has a past medical history of Disorder of thyroid, Fibrositis, Gastroesophageal reflux disease,OTHER MEDICAL (1988), OTHER MEDICAL (1991), OTHER MEDICAL (1982), OTHER MEDICAL, OTHER MEDICAL, OTHER MEDICAL, OTHER MEDICAL, OTHER MEDICAL, OTHER MEDICAL, OTHER MEDICAL, OTHER MEDICAL, OTHER MEDICAL, Hyperlipidemia, Hypertension, Hypertension, PONV (postoperative nausea and vomiting), and Sleep apnea. She also has no past medical history of Malignant hyperthermia. PAST SURGICAL HISTORY: She has a past surgical history that includes Appendectomy (2006); Other surgical history (1988); Other surgical history (1991); Other surgical history (2003); Other surgical history (1982); Total abdominal hysterectomy w/ bilateral salpingoophorectomy (2008); Other surgical history (2006); section (1982); Vaginal Hysterectomy (2008); Appendectomy (2005); Laparoscopic Cholecystectomy (2013); Other surgical history; Appendectomy; section; Other surgical history; Other surgical history; Other surgical history; and Hardware Removal. MEDICATIONS: She has a current medication list which includes the following prescription(s): aspirin, atorvastatin, cholecalciferol, clobetasol, cyclobenzaprine, denosumab, ergocalciferol, hydrochlorothiazide, irbesartan, metoprolol xl, narcan, pregabalin, ropinirole, and zolpidem. ALLERGIES: She is allergic to ciprofloxacin, metronidazole, acetaminophen-codeine, codeine, and lisinopril. FAMILY HISTORY: Her family history includes Asthma in her daughter; Cancer in an other family member; Congenital heart disease in her father; Coronary artery disease in her mother's sister and another family member;Diabetes in an other family member; Diabetes type II in an other family member; Skin cancer in her mother; Stroke in an other family member; Throat cancer in her mother. SOCIAL HISTORY: She reports that she has been smoking. She has been smoking about 0.25 packs per day. She has neverused smokeless tobacco. She reports that she does not drink alcohol and does not use drugs. I have reviewed the patients health history sheet signed and placed in the chart today. REVIEW OF SYSTEMS: GENERAL: Denies fevers, chills or malaise. SKIN: No concerning lesions or skin changes noted on face, neck or trunk. NOSE AND THROAT: Mucosal membranes intact. EYES: Extraocular movements intact. Sclerae - no jaundice. NECK; Denies neck masses, or difficulty swallowing. RESPIRATORY: Denies cough, sputum, hemoptysis, TB, pneumonia. CARDIAC: Denies chest pain, palpitations, dyspnea, orthopnea. GASTROINTESTINAL: Denies nausea, dyspepsia, vomiting, vomiting of blood, rectal bleeding or black/tarry stools. URINARY: Denies polyuria, dysuria, nocturia, infections. VASCULAR: Denies intermittent claudication, leg cramps, thrombophlebitis. Denies DVT, PE. MUSCULOSKELETAL: No evidence of rib, long bone or spine pain. NEUROLOGIC: Denies recent fainting, blackouts, seizures, paralysis, tremors, stroke. HEMATOLOGIC: Denies easy bruising or bleeding, past transfusion reactions. PHYSICAL EXAMINATION: General: Well-developed, well-nourished who is in no apparent distress. Eyes: PERRLA, EOM intact. HEENT: NC/AT, sclerae anicteric. Neck: Supple, without thyromegaly or adenopathy. Respiratory: No shortness of breath noted. Cardiovascular: Regular rate and rhythm. Gastrointestinal: Soft, nontender, nondistended, without obvious masses. Extremities: No edema or cyanosis. Musculoskeletal: Normal range of motion. Neurological examination: Alert and oriented x 3, otherwise grossly nonfocal. Skin/Soft Tissue: No appreciable cervical, supraclavicular, axillary, or inguinal adenopathy. Breast: Examination of the breasts in the upright and supine positions reveal she has no mass, nipple discharge, palpable axillary mass, skin changes, skin dimpling or abnormalities noted in either breast. LABORATORY: None RADIOLOGY: I personally reviewed her left breast ultrasound performed today which demonstrated benign findings. COMPARISON: Outside facility mammograms and ultrasound from 07/30/2021, 06/25/2021 and priors dating back to 2019. ?? TECHNIQUE: Directed ultrasound evaluation of the LEFT breast was performed. ?? SONOGRAM FINDINGS: In the LEFT breast at the 1 o'clock position 2 cm from the nipple, there is a anechoic 0.9 x 0.2 x 0.6 cm cluster of simple cysts with circumscribed margins. The cysts demonstrate no internal vascularity and posterior acoustic enhancement. Incidentally noted is multiple other simple anechoic cysts. ?? IMPRESSION: A cluster of simple cysts in the left breast at the 1 o'clock position 2 cm from the nipple, correlates to the mass seen at outside facility and is benign. ?? OVERALL FINAL ASSESSMENT: BI-RADS Category 2: Benign. PATHOLOGY: None IMPRESSION: Patient with a cluster of cysts consistent with the abnormal findings at the outside facility. PLAN: She is going to continue monitoring her breast exam and will notify us if she identifies any changes or problems. She is going to obtain a mammogram on a yearly basis. She plans on returning to the outside facility. We will plan on seeing her back as needed. Nancy Gonzalez, MSN, METHODS STUDY ANALYST- Endocrine and Oncology Surgery I have reviewed the history, physical, clinical exam, social and surgical history and I concur withthe findings. Juanis Beach M.D. photographic engineer Oncology Surgery Cosigned by Juanis Israel MD PhD at 08/20/2021 6:19 PM CDT documented in this encounter Plan of Treatment Not on file documented as of this encounter Visit Diagnoses Diagnosis Abnormal findings on diagnostic imaging of breast Other (abnormal) findings on radiological examination of breast Left breast mass documented in this encounter Orders Outpatient Referral Count Last Ordered Date Fir st Ordered Date AMB REFERRAL TO SURGICAL ONCOLOGY 1 021 documented in this encounter Care Teams Tattoo Technician Relationship Specialty Start Date End Date Margarito العراقي MD [address] [place] [address] PCP - General Family Medicine 09/04/20 Raymond Vela MD [address] [place] [address] Referring Physician Obstetrics and Gynecology 08/17/21 documented as of this encounter
--- OUTSIDE RECORDS SUMMARY | 2024-11-19 04:50 | XMS_ITS | Encounter Summary ---
Author Organization [facility] Address [address] [place] [address] Care Team Providers Care Subway Train Driver Name Role Phone Margarito العراقي MD Primary Care Provider [phone] Encounter Details Date Type Department Care Team (Late st Contact Info) Description 10/22/2020 Orders Only [facility] [address] [place] [address] Marcia Haider MD [address] [place] [address] [address] [place] [address] Social History Tobacco Use Types Packs/Day Years Used Date Smoking Tobacco: Every Day Cigarettes Smokeless Tobacco: Never Alcohol Use Standard Drinks/Week Comments No 0 (1 standard drink = 0.6 oz pur e alcohol) Comments No Sex and Gender Information Value Date Recorded Sex Assigned at Not on file 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
--- OUTSIDE RECORDS SUMMARY | 2024-11-19 04:50 | XMS_ITS | Encounter Summary ---
Author Organization [facility] Healthcare Address [address] [place] [address] Care Team Providers Care [employer] French Teacher Name Role Phone Mendoza Parker MD Primary Care Provider [phone] Encounter Details Date Type Department Care Team (Late st Contact Info) Description 08/26/2020 Orders Only [facility] [address] [place] [address] Polina Rosa MD [address] [place] [address] Social History Tobacco Use Types Packs/Day Years Used Date Smoking Tobacco: Every Day Cigarettes Smokeless Tobacco: Never Alcohol Use Standard Drinks/Week Comments No 0 (1 standard drink = 0.6 oz pur e alcohol) Comments No Sex and Gender Information Value Date Recorded Sex Assigned at Not on file 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:46 AM 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 Gender Identity Not on file Sexual Orientation Not on file documented as of this encounter Ordered Prescriptions Prescription Sig Dispense Quantity Refills Last Filled Start Date End Date linaCLOtide (LINZESS) 290 mcg capsule Take 1 capsule (290 mcg total) by mouth daily 30 capsule 1 08/26/2020 0 documented in this encounter Plan of Treatment Not on file documented as of this encounter Visit Diagnoses Not on filedocumented in this encounter Care Teams [employer] French Teacher Relationship Specialty Start Date End Date Mendoza Parker MD PCP - General 06/13/20 09/03/20 documented as of this encounter
--- OUTSIDE RECORDS SUMMARY | 2024-11-19 04:50 | XMS_ITS | Encounter Summary ---
Author Organization [facility] Healthcare Address [facility] [place] [address] Care Team Providers Care Mental Health Orderly Name Role Phone Mendoza Parker MD Primary Care Provider [phone] Reason for Visit * Reason Comments OP Infusion Prolia * Episode Based Medications (Routine) - Closed Specialty Diagnoses / Procedures Referred By Contac t Referred To Contact Diagnoses Age-related osteoporosis without current pathological fracture Procedures [place] DENOSUMAB INJECTION Urbano Delacruz MD [address] [address] Phone: tel: fax: [facility] [address] [facility] Office [address] [place] [address] Phone: tel: Referral ID Status Reason Start Date Expiration Date Visits Re quested Visits Authorized [id number] Closed 12/07/2019 12/07/2020 4 4 Encounter Details Date Type Department Care Team (Late st Contact Info) Description 06/16/2020 2:00 PM CDT Infusion [facility] [place] [facility] [address] [place] [address] [address] [place] [address] Age-related osteoporosis without current pathological fracture (Primary Dx) Social History Tobacco Use Types Packs/Day Years Used Date Smoking Tobacco: Every Day Cigarettes Smokeless Tobacco: Never Alcohol Use Standard Drinks/Week Comments No 0 (1 standard drink = 0.6 oz pur e alcohol) Comments No Sex and Gender Information Value Date Recorded Sex Assigned at Not on file 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:46 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 Injection to be given in the upper arm, thigh or abdomen. Refrigerate. Allow to stand 15 to 30 mins prior to useIndications:Age-related osteoporosis without current pathological fracture Given 06/16/2020 2:10 PM CDT 60 mg Left Upper Arm documented in this encounter Care Teams Mental Health Orderly Relationship Specialty Start Date End Date Mendoza Parker MD PCP - General 06/13/20 09/03/20 documented as of this encounter
--- OUTSIDE RECORDS SUMMARY | 2024-11-19 04:50 | XMS_ITS | Encounter Summary ---
Author Organization [facility] Address [address] [place] [address] Phone Care Team Providers Care Equipment Maintenance Superintendent Name Role Phone Margarito العراقي MD Primary Care Provider Encounter Details Date Type Department Care Team (Late st Contact Info) Description 10/27/2020 11:00 AM MOTOR POWER CONNECTOR Office Visit [facility] [address] [facility] Advanced Medicine 5th [place] [address] [place] [address] Urbano Delacruz MD [address] [facility] [address] [place], [place] [id number] Age-related osteoporosis without current pathological fracture (Primary Dx) Social History Tobacco Use Types Packs/Day Years Used Date Smoking Tobacco: Every Day Cigarettes Smokeless Tobacco: Never Alcohol Use Standard Drinks/Week Comments No 0 (1 standard drink = 0.6 oz pur e alcohol) Comments No Sex and Gender Information Value Date Recorded Sex Assigned at Not on file 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:46 AM MOTOR POWER CONNECTOR Gender Identity Not on file Sexual Orientation Not on file documented as of this encounter Last Filed Vital Signs Vital Sign Reading Time Taken Comments Blood Pressure 146/96 10/27/2020 10:34 AM MOTOR POWER CONNECTOR Pulse 96 10/27/2020 10:34 AM MOTOR POWER CONNECTOR Temperature 36.8 ??C (98.2 ??F) 10/27/2020 1 0:34 AM MOTOR POWER CONNECTOR Respiratory Rate - - Oxygen Saturation - - Inhaled Oxygen Concentration - - Weight 71.6 kg (157 lb 12.8 oz) 020 10:34 AM MOTOR POWER CONNECTOR Height 149.9 cm (4' 11 ) 10/27/2020 10: 34 AM MOTOR POWER CONNECTOR Body Mass Index 31.87 10/27/2020 10:34 AM MOTOR POWER CONNECTOR documented in this encounter Progress Notes * Urbano Delacruz MD - 10/27/2020 11:00 AM CST NAME: Shivani Betancur : 1965 DOS: HISTORY [...] HISTORY: The patient is a very pleasant 55 year-old, postmenopausal, female. She reports an interval fall in March from her garage steps, fortunately no interval fractures, Notes MSK symptoms with her initial dose of Prolia. 6 doses to date last dose on 05/2020. . Has been compliant with her CPAP device. Unclear if she has benefit from her device. She notes improved mobility and substantial weight loss- last weight at home 10 Lbs. Continues to smoke. She was depressed, due to her son moving out of the home-but notes that he visits 3 times week and she is well adjusted now. Currently on 4000IUs of vitamin D daily and her PCP start her on 50 K weekly of ergocalciferol unclear why as her 25OH d level 05/2020 49. 600 mg calcium. one serving dairy daily, No structured weight bearing activity. She is being very conscious regarding COVID. ROS: no complaints. PAST MEDICAL HISTORY: 1. Severe osteoporosis based on an L4 compression fracture, age indeterminate, likely sustained between 2010 and 2013. 2. Left trimalleolar fracture status post ORIF in 2015 after trivial trauma. Agust of 2016 right [...] HISTORY 2003 Cryoablation ??? OTHER SURGICAL HISTORY 1983 : ??? OTHER SURGICAL HISTORY 2007 lap. [...] or abscess without bleeding ??? Need for jpvkjigodj-cqxnyeh-eqgsucqgj (Tdap) vaccine ??? Breast cancer screening ??? Shaking ??? Poison shala dermatitis ??? Seizure-like activity (CMS/HCC) ??? Brain mass CURRENT MEDICATIONS: Current Outpatient Prescriptions: ??? AFLURIA QUAD [id number] 60 mcg/0.5 mL suspension, , Disp: , [...] daily., Disp: 30 tablet, Rfl: 0 ??? wsuujxlq-xmkkwicqv-nytahiljwxztg (MAXITROL) 3.5mg/mL-10,000 unit/mL-0.1 % ophthalmic suspension, , [...] sleep., Disp: 30 tablet, Rfl: 1 ??? jyxqnetxltvqd-fatziow-scfddqwg (EXCEDRIN MIGRAINE) 250-250-65 mg per tablet, 1-2 [...] ??? Stroke Other Stroke; VITAL SIGNS: Vitals BP 146/96 Pulse 96 Temp 36.8 ??C (98.2 ??F) Ht 149.9 cm (4' 11 ) Wt 71.6 kg (157 lb 12.8 oz) BMI 31.87 kg/m?? PHYSICAL EXAM: Physical Exam Constitutional: She is oriented to person, place, and time and well-developed, well-nourished, and in no distress. HENT: Head: Normocephalic and atraumatic. Eyes: Pupils are equal, round, and reactive to light. Conjunctivae are normal. Neck: Normal range of motion. Neck supple. Cardiovascular: Normal rate, regular rhythm and normal heart sounds. Pulmonary/Chest: Effort normal and breath sounds normal. Abdominal: Soft. Bowel sounds are normal. Musculoskeletal: Normal range of motion. Neurological: She is alert and oriented to person, place, and time. Gait normal. Skin: Skin is warm and dry. Psychiatric: Mood, memory, affect and judgment normal. BONE DENSITY: ?? BONE MINERAL DENSITY OF THE LUMBAR SPINE ?? Bone Mineral Density (BMD) of the lumbar spine was measured from L1-L4 and the average density was calculated to be 0.998 gm/cm. This corresponds to a T-score standard deviations from the mean of young adults of -0.4. When compared to the previous study of 10/22/2019 there has been a measured 0.020gm/cm 2.0 % increase which is considered significant. ?? BONE MINERAL DENSITY OF THE PROXIMAL FEMUR ?? Bone Mineral Density (BMD) of the left hip total was found to be 1.020 gm/cm2. This corresponds to a T-score standard deviations from the mean of young adults of 0.6. Femoral neck is 0.810 gm/cm2 with a T-score of -0.4. When compared to the previous study of 10/22/2019 there has been no significantchange noted. ?? SUMMARY: Bone mineral density is near the young adult normal mean with no increased risk for fracture. Therehas been a significant increase in bone mineral density since the previous measurement. ?? TBS- 1.224 TBS score >1.35 normal TBS score 1.2-1.35 partially degraded TBS Score <1.2 degraded ?? LABS: Recent Results (from the past 1008 hour(s)) Basic metabolic panel Collection Time: 09/13/18 8:18 AM Result Value Ref Range Glucose 117 (H) 65 - 99 mg/dL BUN 12 7 - 25 mg/dL Creatinine 0.56 0.50 - 1.05 mg/dL eGFR NON-AFR. TAJIK 106 > OR = 60 mL/min/1.73m2 EGFR [...] (calc) ASSESSMENT AND PLAN: This is a 55-year-old, postmenopausal, female with bone mineral densities that [...] to insurance, approved after peer to peer inApril 2017, in the interval patient was briefly on fosamax 4 -5 months. Recieved 6 doses of Prolia last dose in 05/2020 given improvements in BMD to transition Reclast 10/2020. Risks and Benefits of IV bisphosphonate therapy were discussed at length of the patient including the risk of acute phase reaction, MSK complaints and more serious but fortunately rare adverse side effects such as atypical femoral fracture and Osteonecrosis of the Jaw. Counseled smoking cessation Reviewed the goal is 1200mg of calcium per day preferably through dietary sources Continue 4000 IUs daily of vitamin D for maintenance but stop prescription ergocalciferol as I am concerned about potential D toxicity. . Engage in weight bearing activity as tolerated. Will f/u in 1yr with Rpt BMD. (2) Screen for Cygnet's given her young age, bone densities, and her other constellation of symptoms including weight gain, fatigue, centri- pedal obesity, dexamethasone suppression test to rule outthe possibility of subclinical Cygnet's. Dex supressiont test negative. Am cortisol 0.6 (3) HTN- weight loss, DASH diet, decrease ETOH and smoking cessation. Thank you for sending your patient to the [facility] at [facility]. Please let me know if I can be of any more assistance. If you have any questions or concerns please do not hesitate to give me a call. R POWER CONNECTOR documented in this encounter Plan of Treatment Not on file documented as of this encounter Visit Diagnoses Diagnosis Age-related osteoporosis without current pathological fracture- Primary documented in this encounter Care Teams Equipment Maintenance Superintendent Relationship Specialty Start Date End Date Margarito العراقي MD [address] [place] [address] PCP - General Family Medicine 09/04/20 documented as of this encounter
--- OUTSIDE RECORDS SUMMARY | 2024-11-19 04:50 | XMS_ITS | Encounter Summary ---
Author Organization [facility] Address [address] [place] [address] Phone Care Team Providers Care Sheet Rock Taper Helper Name Role Phone Margarito العراقي MD Primary Care Provider [phone] Reason for Referral * Diagnostic Imaging (Routine) - Closed Specialty Diagnoses / Procedures Referred By Contac t Referred To Contact Diagnoses Osteoporosis, unspecified osteoporosis type, unspecified pathological fracture presence Procedures Dexa Axial Skeleton Bone Density 1 or 2 Site Urbano Delacruz MD Phone: tel: fax: [facility] (All Locations) Referral ID Status Reason Start Date Expiration Date Visits Re quested Visits Authorized [id number] Closed 10/23/2020 11/22/2021 1 1 BILITATION MANAGER Reason for Visit * Reason Comments Osteopenia * Diagnostic Imaging (Routine) - Canceled Specialty Diagnoses / Procedures Referred By Contac t Referred To Contact Diagnoses Age-related osteoporosis without current pathological fracture Procedures Dexa Appendicular Bone Density Urbano Delacruz MD Phone: tel: fax: [facility] (All Locations) Referral ID Status Reason Start Date Expiration Date V isits Requested Visits Authorized [id number] Canceled 10/22/2019 05/02/2021 1 1 Encounter Details Date Type Department Care Team (Latest Contact Info) Description 10/27/2020 10:30 AM REHABILITATION MANAGER Clinical Support [address] [place] [id number] Osteoporosis, unspecified osteoporosis type, unspecified pathological fracture presence (Primary Dx); Age-related osteoporosis without current pathological fracture Social History Tobacco Use Types Packs/Day Years Used Date Smoking Tobacco: Every Day Cigarettes Smokeless Tobacco: Never Alcohol Use Standard Drinks/Week Comments No 0 (1 standard drink = 0.6 oz pur e alcohol) Comments No Sex and Gender Information Value Date Recorded Sex Assigned at Not on file 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:46 AM REHABILITATION MANAGER Gender Identity Not on file Sexual Orientation Not on file documented as of this encounter Plan of Treatment Not on file documented as of this encounter Procedures Procedure Name Priority Date/Time Associated Diagnosis Comments DEXA AXIAL SKELETON BONE DENSITY 1 OR MORE SITES Schedule Routine, Read Routine (OP Routine) 10/27/2020 10:54 AM REHABILITATION MANAGER Osteoporosis, unspecified osteoporosis type, unspecified pathological fracture presence documented in this encounter Results * Dexa Axial Skeleton Bone Density 1 or 2 Site (10/27/2020 10:54 AM REHABILITATION MANAGER) Anatomical Region Laterality Modality Body N/A Radiographic Krupa ging Narrative 10/28/2020 11:39 AM REHABILITATION MANAGER Patient Name: Shivani Betancur Date of : 1965 Date of scan: 10/27/2020 Bone mineral density was performed on a HoloFi.tt Discovery Densitometer. ?? Machine Cross-calibration and Precision studies have been performed with a least significant change of 0.024 g/cm at the spine, 0.020 g/cm at the total proximal femur, and 0.014g/cm at the forearm. HISTORY: ??This is a 55 y.o. postmenopausal female with a history of low bone mass and vitamin D deficiency. Currently on treatment with calcium, hormone replacement therapy, Prolia and vitamin D. Previously treated with Boniva, Forteo and Reclast. With a current complaint of back, neck and leg pain. History of tobacco use: Social History Tobacco Use Smoking Status Current Every Day Smoker ? ? Packs/day: 0.25 INDICATIONS: Menopause status, treatment monitoring, vitamin D [...] compared to the previous study of 10/22/2019 ??there has been a measured 0.020 gm/cm 2.0 % increase which is considered significant. BONE MINERAL DENSITY OF THE PROXIMAL FEMUR Bone Mineral Density (BMD) of the left hip total was found to be 1.020 gm/cm2. This corresponds to a T-score standard deviations from the mean of young adults of 0.6. Femoral neck is 0.810 gm/cm2 with a T-score ??of -0.4. When compared to the previous study of 10/22/2019 there has been no significant change noted. SUMMARY: Bone mineral density is near the young adult normal mean with no increased risk for fracture. There has been a significant increase in bone mineral density since the previous measurement. ADDITIONAL COMMENTS: If the patient has a history of a fragility fracture, a fracture that occurred with trauma equivalent to a fall from a standing position or less, then the diagnosis is osteoporosis. The risk of osteoporotic fracture increases approximately 2-fold for each 1.0 SD decrease in T-score. However, low bone density is not the only risk factor for fracture. Other factors include patient? s age, previous osteoporotic fracture or prior fracture as an adult, loss of height of greater than 2 inches, corticosteroid use, risk of falling, risk of injury, and family history of osteoporosis. Not everyone with low bone mineral density has osteoporosis. Osteomalacia and other metabolic bone disorders should also be considered where indicated. ??Patients who have osteoporosis should be evaluated for specific diseases and conditions (secondary causes) that may cause or contribute to bone loss. Consider repeating this study in 1-2 years to assess the patient? s response to treatment, if applicable. It is recommended that any follow up exam be performed on the same machine if possible for better accuracy. DEFINITIONS: Osteoporosis: ??BMD at or below -2.5 T-score Osteopenia (low bone mass): ??BMD between -1.0 and-2.5 T-score. The Bone Health Program adopts the following WHO definitions: Osteoporosis: ??BMD below -2.5 S.D. as compared to the BMD of young normal adults. Osteopenia or Low Bone Mass: ??BMD between -1.0 and -2.5 S.D. below the BMD of young normal adults. Normal Bone Density: ??BMD equal to or greater than -1.0 S.D. as compared to the BMD of young normal adults. References: 1) Silver Annals of Internal Medicine 114(11): ??729-923 (1990) 2) Oliver, Lancet 341 : 72-75 (1992) 3) Santi, Journal Bone and Mineral Research 7(6): 633-8 (1991) 4) Estevan, Journal Bone and Mineral Research 8(10):1227-33 (1992) The history and data sections of the bone mineral density scan were prepared by Yessenia Naylor) TATIANNA who is accredited by the International Society of Clinical Densitometry. The overall patient assessment and scan interpretation were performed by Urbano Delacruz M.D. who is certified by the International Society of Clinical Densitometry. [id number] Urbano Delacruz MD IMG DXA PROCEDURES Final Result documented in this encounter Visit Diagnoses Diagnosis Osteoporosis, unspecified osteoporosis type, unspecified pathological fracture presence- Primary Age-related osteoporosis without current pathological fracture documented in this encounter Care Teams Sheet Rock Taper Helper Relationship Specialty Start Date End Date Margarito العراقي MD [address] [place] [address] PCP - General Family Medicine 09/04/20 documented as of this encounter
--- OUTSIDE RECORDS SUMMARY | 2024-11-19 04:51 | XMS_ITS | Encounter Summary ---
Author Organization [facility] Care Team Providers Care Fuel Yard Operator Name Role Phone Mendoza Parker MD Primary Care Provider [phone] Encounter Details Date Type Department Care Team (Latest Contact Info) Description 08/31/2019 Travel Social History Tobacco Use Types Packs/Day Years Used Date Smoking Tobacco: Every Day Cigarettes Smokeless Tobacco: Never Alcohol Use Standard Drinks/Week Comments No 0 (1 standard drink = 0.6 oz pur e alcohol) Comments No Sex and Gender Information Value Date Recorded Sex Assigned at Not on file 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:46 AM ELECTRIC SIGN WIRER Gender Identity Not on file Sexual Orientation Not on file documented as of this encounter Plan of Treatment Not on file documented as of this encounter Visit Diagnoses Not on filedocumented in this encounter Care Teams Fuel Yard Operator Relationship Specialty Start Date End Date Mendoza Parker MD PCP - General 02/18/17 06/12/20 documented as of this encounter
--- OUTSIDE RECORDS SUMMARY | 2024-11-19 04:51 | XMS_ITS | Encounter Summary ---
Author Organization [facility] Address [address] [place] [address] Care Team Providers Care Chemistry Technologist Name Role Phone Mendoza Parker MD Primary Care Provider [phone] Reason for Visit * Reason Comments Follow-up 4 month Encounter Details Date Type Department Care Team (Late st Contact Info) Description 01/11/2020 2:00 PM PBX TEACHER Office Visit [facility] [address] [place] [address] Mendoza Parker MD [address] [address] Essential hypertension (Primary Dx); Smoking trying to quit; Obstructive sleep apnea syndrome Social History Tobacco Use Types Packs/Day Years Used Date Smoking Tobacco: Every Day Cigarettes Smokeless Tobacco: Never Alcohol Use Standard Drinks/Week Comments No 0 (1 standard drink = 0.6 oz pur e alcohol) Comments No Sex and Gender Information Value Date Recorded Sex Assigned at Not on file 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:46 AM PBX TEACHER Gender Identity Not on file Sexual Orientation Not on file documented as of this encounter Last Filed Vital Signs Vital Sign Reading Time Taken Comments Blood Pressure 140/90 01/11/2020 1:56 PM PBX TEACHER Pulse 108 01/11/2020 1:56 PM PBX TEACHER Temperature 36.9 ??C (98.4 ??F) 01/11/2020 1:56 PM CS T Respiratory Rate 12 01/11/2020 1:56 PM PBX TEACHER Oxygen Saturation 99% 01/11/2020 1:56 PM PBX TEACHER Inhaled Oxygen Concentration - - Weight 76.2 kg (168 lb) 01/11/2020 1:56 PM PBX TEACHER Height - - Body Mass Index 33.93 12/14/2019 2:12 PM PBX TEACHER documented in this encounter Progress Notes * Mendoza Parker MD - 01/11/2020 2:00 PM CST Subjective/Objective Patient ID: Shivani Betancur is a 54 y.o. female. Chief Complaint Follow-up (4 month) Four-month follow-up visit patient seems to be doing reasonably well no new health problems since she last saw me patient advised me she saw physician hutchinsoncandelaria العراقي. Regarding her bloodpressure please see assessment and plans. Patient still sees a psychiatrist for depression unstablestill goes to the pain clinic which is helping her. HPI Review of Systems Constitutional: Negative. HENT: Negative. Cardiovascular: Negative. Gastrointestinal: Negative. Genitourinary: Negative. Musculoskeletal: Positive for arthralgias and back pain. Psychiatric/Behavioral: Negative. Physical Exam Constitutional: Appearance: Normal appearance. She is obese. HENT: Head: Normocephalic and atraumatic. Cardiovascular: Rate and Rhythm: Normal rate and regular rhythm. Pulses: Normal pulses. Heart sounds: Normal heart sounds. Pulmonary: Effort: Pulmonary effort is normal. Breath sounds: Normal breath sounds. Skin: General: Skin is warm and dry. Capillary Refill: Capillary refill takes less than 2 seconds. Neurological: General: No focal deficit present. Mental Status: She is alert and oriented to person, place, and time. Psychiatric: Mood and Affect: Mood normal. Behavior: Behavior normal. Thought Content: Thought content normal. Judgment: Judgment normal. Assessment/Plan Diagnoses and all orders for this visit: Essential hypertension (I10) (Primary) Assessment & Plan: Patient advised me she is no longer taking Bystolic she is seeing Dr. Margarito العراقي in [place] he is a family practitioner. Placed on irbesartan 150 mg per day she is tolerating this.. Blood pressuretoday is 140/90. No chest pain or shortness of breath. Smoking trying to quit (Z72.0) Assessment & Plan: Patient continues with trying to quit smoking she has he was stop smoking for 3 4 days which she stop smoking she feels free fatigue.. This time does not want to try chance not fully due to patch this point. Courage patient tried decreased amount of smoking gradually over time. Obstructive sleep apnea syndrome (G47.33) Assessment & Plan: Patient advised me she is using a CPAP machine and benefits from it. TEACHER documented in this encounter Miscellaneous Notes * Assessment & Plan Note - Mendoza Parker MD - 01/12/2020 2:49 PM PBX TEACHER Associated Problem(s): NEO (obstructive sleep apnea) Patient advised me she is using a CPAP machine and benefits from it. TEACHER * Assessment & Plan Note - Mendoza Parker MD - 01/12/2020 2:49 PM PBX TEACHER Associated Problem(s): Smoking trying to quit Patient continues with trying to quit smoking she has he was stop smoking for 3 4 days which she stop smoking she feels free fatigue.. This time does not want to try chance not fully due to patch this point. Courage patient tried decreased amount of smoking gradually over time. TEACHER * Assessment & Plan Note - Mendoza Parker MD - 01/12/2020 2:47 PM PBX TEACHER Associated Problem(s): Essential hypertension Patient advised me she is no longer taking Bystolic she is seeing Dr. Margarito العراقي in [place] he is a family practitioner. Placed on irbesartan 150 mg per day she is tolerating this.. Blood pressuretoday is 140/90. No chest pain or shortness of breath. TEACHER documented in this encounter Plan of Treatment Not on file documented as of this encounter Visit Diagnoses Diagnosis Essential hypertension- Primary Unspecified essential hypertension Smoking trying to quit Obstructive sleep apnea syndrome Obstructive sleep apnea (adult) (pediatric) documented in this encounter Discontinued Medications Medication Sig Discontinue Reason Start Date End Da te azelastine 0.15 % (205.5 mcg) spray,non-aerosol SPRAY 1 SPRAY INTO EACH NOSTRIL TWICE A DAY Therapy completed 12/27/2017 01/12/2020 nebivolol (BYSTOLIC) 10 mg tablet Take 0.5 tablets (5 mg total) by mouth 2 (two) times a day Alternate therapy 01/29/2019 01/12/2020 pregabalin (LYRICA) 75 mg capsule take 1 capsule by oral route 2 times every day Therapy completed 03/07/2015 01/12/2020 documented as of this encounter Care Teams Chemistry Technologist Relationship Specialty Start Date End Date Mendoza Parker MD PCP - General 02/18/17 06/12/20 documented as of this encounter
--- OUTSIDE RECORDS SUMMARY | 2024-11-19 04:51 | XMS_ITS | Encounter Summary ---
Author Organization [facility] Address [address] [place] [address] Care Team Providers Care Shirt Folding Machine Operator Name Role Phone Mendoza Parker MD Primary Care Provider [phone]- [phone] Reason for Visit * Reason Comments Follow-up 1 mo Encounter Details Date Type Department Care Team (Late st Contact Info) Description 08/31/2019 2:00 PM CDT Office Visit [facility] [address] [place] [address] Mendoza Parker MD [address] [address] Alcohol abuse (Primary Dx); Essential hypertension; Obstructive sleep apnea syndrome; Smoking trying to quit Social History Tobacco Use Types Packs/Day Years Used Date Smoking Tobacco: Every Day Cigarettes Smokeless Tobacco: Never Alcohol Use Standard Drinks/Week Comments No 0 (1 standard drink = 0.6 oz pur e alcohol) Comments No Sex and Gender Information Value Date Recorded Sex Assigned at Not on file 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:46 AM POOL SERVICER Gender Identity Not on file Sexual Orientation Not on file documented as of this encounter Last Filed Vital Signs Vital Sign Reading Time Taken Comments Blood Pressure 140/88 08/31/2019 2:07 PM CDT Pulse 83 08/31/2019 2:07 PM CDT Temperature 36.6 ??C (97.8 ??F) 08/31/2019 2:07 PM CD T Respiratory Rate 16 08/31/2019 2:07 PM CDT Oxygen Saturation 96% 08/31/2019 2:07 PM CDT Inhaled Oxygen Concentration - - Weight 77.6 kg (171 lb) 08/31/2019 2:07 PM CDT Height - - Body Mass Index 34.54 08/31/2019 11:35 AM CDT documented in this encounter Progress Notes * Mendoza Parker MD - 08/31/2019 2:00 PM CDT Subjective/Objective Patient ID: Shivani Betancur is a 53 y.o. female. Chief Complaint Follow-up (1 mo) Patient is here for follow-up visit regarding over blood pressure please see assessment and plans. Patient has several other health problems addressed during this visit that have an impact on her blood pressure. This patient has chronic pain she continues to go through pain clinic in benefits from it. HPI Review of Systems Constitutional: Negative. Negative for activity change, appetite change, chills, diaphoresis, fatigue and fever. HENT: Negative. Negative for congestion, ear pain, facial swelling, hearing loss, postnasal drip, sinus pressure, sneezing, sore throat and trouble swallowing. Eyes: Negative for itching and visual disturbance. Respiratory: Negative for cough, chest tightness, shortness of breath and wheezing. Cardiovascular: Negative. Negative for chest pain, palpitations and leg swelling. Gastrointestinal: Negative for abdominal pain, blood in stool, constipation, diarrhea, nausea and vomiting. Endocrine: Negative for cold intolerance, heat intolerance, polydipsia, polyphagia and polyuria. Genitourinary: Negative for difficulty urinating, dysuria, frequency, hematuria and urgency. Musculoskeletal: Positive for arthralgias and back pain. Negative for gait problem, joint swelling,myalgias and neck pain. Skin: Negative for color change, pallor, rash and wound. Allergic/Immunologic: Negative. Negative for environmental allergies, food allergies and immunocompromised state. Neurological: Negative. Negative for tremors, seizures, syncope, facial asymmetry, speech difficulty, weakness, light-headedness, numbness and headaches. Hematological: Negative. Negative for adenopathy. Psychiatric/Behavioral: Negative. Negative for behavioral problems, decreased concentration and sleep disturbance. The patient is not nervous/anxious. Physical Exam Constitutional: She is oriented to person, place, and time. Neck: Normal range of motion. Neck supple. Cardiovascular: Normal rate, regular rhythm, normal heart sounds and normal pulses. Abdominal: Soft. Normal appearance and bowel sounds are normal. Neurological: She is alert and oriented to person, place, and time. Skin: Skin is warm. Psychiatric: Her behavior is normal. Mood and thought content normal. Nursing note and vitals reviewed. Assessment/Plan Diagnoses and all orders for this visit: Alcohol abuse (F10.10) (Primary) Assessment & Plan: Patient advised me she has been drinking 4-5 nights per week with a night cap. Never gets intoxicated.. She started drinking at age 10 with the family . Essential hypertension (I10) Assessment & Plan: Patient brought with her listing of blood pressure readings least 30 over 70% on were in normal range. Few there above normal or only 45 points above normal and systolic.. Patient's disappointed thatall of her blood pressure readings were in normal range. Advised her that her blood pressure did medication does not need to be change her. However it is she may increase of Bystolic by half a tableton the days when his consistently elevated.. Patient discontinue amlodipine she felt lightheaded onit.. Patient feel that I amlodipine is sensitive to alcohol when she drinks. Patient has a ???nightcap ???4-5 nights per week.. She never gets intoxicated. No further recommendations regarding bloodpressure. Obstructive sleep apnea syndrome (G47.33) Assessment & Plan: Patient continued use in benefits from CPAP. Smoking trying to quit (Z72.0) Assessment & Plan: Patient continues to try to quit smoking. Her definitely does not want her to take Chantix.. DX Chantix and had nightmares and aggressive behavior. Patient smokes 3-4 cigarettes per day. Advised to use nicotine gum when she has a breakthrough desire to smoke. Other orders - Flu Vaccine Quad PF 6m+ IM - Fluarix / FluLaval / Afluria documented in this encounter Miscellaneous Notes * Assessment & Plan Note - Mendoza Parker MD - 09/03/2019 9:14 AM CDT Associated Problem(s): NEO (obstructive sleep apnea) Patient continued use in benefits from CPAP. * Assessment & Plan Note - Mendoza Parker MD - 09/03/2019 9:10 AM CDT Associated Problem(s): Smoking trying to quit Patient continues to try to quit smoking. Her definitely does not want her to take Chantix.. DX Chantix and had nightmares and aggressive behavior. Patient smokes 3-4 cigarettes per day. Advised to use nicotine gum when she has a breakthrough desire to smoke. * Assessment & Plan Note - Mendoza Parker MD - 09/03/2019 9:09 AM CDT Associated Problem(s): Alcohol abuse Patient advised me she has been drinking 4-5 nights per week with a night cap. Never gets intoxicated.. She started drinking at age 10 with the family . * Assessment & Plan Note - Mendoza Parker MD - 09/03/2019 9:07 AM CDT Associated Problem(s): Essential hypertension Patient brought with her listing of blood pressure readings least 30 over 70% on were in normal range. Few there above normal or only 45 points above normal and systolic.. Patient's disappointed thatall of her blood pressure readings were in normal range. Advised her that her blood pressure did medication does not need to be change her. However it is she may increase of Bystolic by half a tableton the days when his consistently elevated.. Patient discontinue amlodipine she felt lightheaded onit.. Patient feel that I amlodipine is sensitive to alcohol when she drinks. Patient has a ???nightcap ???4-5 nights per week.. She never gets intoxicated. No further recommendations regarding bloodpressure. documented in this encounter Plan of Treatment Not on file documented as of this encounter Visit Diagnoses Diagnosis Alcohol abuse- Primary Nondependent alcohol abuse, unspecified drinking behavior Essential hypertension Unspecified essential hypertension Obstructive sleep apnea syndrome Obstructive sleep apnea (adult) (pediatric) Smoking trying to quit documented in this encounter Orders Immunization/Injection Count Last Ordered Date First Ordered Date FLU VACCINE QUAD PF 6M+ IM - FLUARIX / FLULAVAL / AFLURIA 1 08/31/2019 documented in this encounter Care Teams Shirt Folding Machine Operator Relationship Specialty Start Date End Date Mendoza Parker MD PCP - General 02/18/17 06/12/20 documented as of this encounter
--- OUTSIDE RECORDS SUMMARY | 2024-11-19 04:51 | XMS_ITS | Encounter Summary ---
Author Organization [facility] Address [address] [place] [address] Care Team Providers Care Government Relations Manager Name Role Phone Mendoza Parker MD Primary Care Provider +1- [phone] Encounter Details Date Type Department Care Team (Late st Contact Info) Description 04/16/2020 Telephone [facility] General Manager [address] [address] Mickey Martin MD 2 [facility] [address] [place] [address] Social History Tobacco Use Types Packs/Day Years Used Date Smoking Tobacco: Every Day Cigarettes Smokeless Tobacco: Never Alcohol Use Standard Drinks/Week Comments No 0 (1 standard drink = 0.6 oz pur e alcohol) Comments No Sex and Gender Information Value Date Recorded Sex Assigned at Not on file 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:46 AM MANAGER RECRUITMENT Gender Identity Not on file Sexual Orientation Not on file documented as of this encounter Miscellaneous Notes * Telephone Encounter - Patricia Friedman MA - 04/17/2020 1:09 PM CDT Gave info to tu. Pt has an appt today at 1:30 with her. * Telephone Encounter - Mickey Martin MD - 04/17/2020 11:32 AM CDT She should resume her Bystolic 10 mg daily * Telephone Encounter - Patricia Friedman MA - 04/16/2020 10:52 AM CDT Pt has been having issues with high BP since winter last year. Pt saw a doctor in [place], Shetook her off Bystolic and started irbesartan 150mg every day, a couple days ago he raised it to 300mg every day. When her BP is good her HR is high, highest 124, ranges from 110-120. Pt has been feeling jittery. She has been taking green coffee caffine capsules 4x strength for weight loss. I advised her to stop those. Dr. Parker is putting her on a heart monitor for 2 weeks and checking her thyroid. Please advise. A couple numbers below: 163/94 HR:109 154/90 HR:101 183/106 HR:103 171/111 HR:112 132/86 HR:114 143/84 HR:124 Okay to leave detailed message [phone] * Telephone Encounter - Patricia Friedman MA - 04/16/2020 10:10 AM CDT Pt left a message wanting to talk to someone about her BP, called pt back, no answer, left message for her to return call to discuss. documented in this encounter Plan of Treatment Not on file documented as of this encounter Visit Diagnoses Not on filedocumented in this encounter Care Teams Government Relations Manager Relationship Specialty Start Date End Date Mendoza Parker MD PCP - General 02/18/17 06/12/20 documented as of this encounter
--- OUTSIDE RECORDS SUMMARY | 2024-11-19 04:51 | XMS_ITS | Encounter Summary ---
Author Organization [facility] Address [address] [place] [address] Care Team Providers Care Casing Splitter Name Role Phone Mendoza Parker MD Primary Care Provider +1- [phone] Reason for Visit * Reason Comments Hypertension Encounter Details Date Type Department Care Team (Late st Contact Info) Description 04/15/2020 2:40 PM CDT Office Visit [facility] [address] [place] [address] Mendoza Parker MD [address] [address] Tachycardia (Primary Dx); Acute cystitis without hematuria; Alcohol abuse; Essential hypertension; Primary insomnia Social History Tobacco Use Types Packs/Day Years Used Date Smoking Tobacco: Every Day Cigarettes Smokeless Tobacco: Never Alcohol Use Standard Drinks/Week Comments No 0 (1 standard drink = 0.6 oz pur e alcohol) Comments No Sex and Gender Information Value Date Recorded Sex Assigned at Not on file 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 Gender Identity Not on file Sexual Orientation Not on file documented as of this encounter Last Filed Vital Signs Vital Sign Reading Time Taken Comments Blood Pressure 136/94 04/15/2020 2:46 PM CDT Pulse 98 04/15/2020 2:46 PM CDT Temperature - - Respiratory Rate 16 04/15/2020 2:46 PM CDT Oxygen Saturation 97% 04/15/2020 2:46 PM CDT Inhaled Oxygen Concentration - - Weight 74.8 kg (165 lb) 04/15/2020 2:46 PM CDT Height 149.9 cm (4' 11 ) 04/15/2020 2:46 PM CDT Body Mass Index 33.33 04/15/2020 2:46 PM CDT documented in this encounter Ordered Prescriptions Prescription Sig Dispense Quantity Refills Last Filled Start Date End Date sulfamethoxazole-t rimethoprim (BACTRIM DS) 800-160 mg per tablet Take 1 tablet by mouth 2 (two) times a day for 7 days 14 tablet 04/15/2020 04/15/2020 documented in this encounter Progress Notes * Mendoza Parker MD - 04/15/2020 2:40 PM CDT Subjective/Objective Patient ID: Shivani Betancur is a 54 y.o. female. Chief Complaint Hypertension Patient is very concerned about her hypertension. She is also having palpitations she has been to the emergency room several times because of palpitations her workup have been negative. Patient did bring with her blood pressure cuff and there times of blood pressures are running consistently above 160 and diastolic above 1 her less than 110 please see assessment and plan HPI Review of Systems Constitutional: Positive for fatigue. Negative for activity change, appetite change, chills, diaphoresis and fever. HENT: Negative. Negative for congestion, ear pain, facial swelling, hearing loss, postnasal drip, sinus pressure, sneezing, sore throat and trouble swallowing. Eyes: Negative for itching and visual disturbance. Respiratory: Negative. Negative for cough, chest tightness, shortness of breath and wheezing. Cardiovascular: Positive for chest pain and palpitations. Negative for leg swelling. Nonspecific chest pain and chest wall pain on palpating left side Gastrointestinal: Negative. Negative for abdominal pain, blood in stool, constipation, diarrhea, nausea and vomiting. Endocrine: Negative for cold intolerance, heat intolerance, polydipsia, polyphagia and polyuria. Genitourinary: Negative for difficulty urinating, dysuria, frequency, hematuria and urgency. Musculoskeletal: Positive for myalgias. Negative for arthralgias, back pain, gait problem, joint swelling and neck pain. Skin: Negative. Negative for color change, pallor, rash and wound. Allergic/Immunologic: Negative. Negative for environmental allergies, food allergies and immunocompromised state. Neurological: Negative. Negative for tremors, seizures, syncope, facial asymmetry, speech difficulty, weakness, light-headedness, numbness and headaches. Hematological: Negative. Negative for adenopathy. Psychiatric/Behavioral: Positive for sleep disturbance. Negative for behavioral problems and decreased concentration. The patient is not nervous/anxious. Patient care of Psychiatry for depression. Physical Exam Constitutional: Appearance: Normal appearance. She is obese. HENT: Head: Normocephalic and atraumatic. Mouth/Throat: Mouth: Mucous membranes are dry. Neck: Musculoskeletal: Normal range of motion and neck supple. Cardiovascular: Rate and Rhythm: Normal rate and regular rhythm. Abdominal: General: Abdomen is flat. Palpations: Abdomen is soft. Musculoskeletal: Normal range [...] Diagnoses and all orders for this visit: Tachycardia (R00.0) (Primary) - T4, free; Future - Event Monitor, 30 Day Event; Future Acute cystitis without hematuria (N30.00) Assessment & Plan: Patient having some urgency frequency and dysuria ciprofloxacin has not worked for the past. I am going to get a UA and start her on Macrobid 100 mg twice a day 5 days. Alcohol abuse (F10.10) Assessment & Plan: Patient with a COVID-19 restrictions and quarantine she is increase in alcohol intake 5-7 days weekmore frequently 7 days a week and 7-10 drinks.. Essential hypertension (I10) Assessment & Plan: Patient now nervous started/valsartan 300 mg daily there times a blood pressure isn't controlled which she is very concerned about. Patient is also having palpitations. Nothing else new is going on patient drinks 5-7 days a week 5-10 drinks this may be responsible for changes in blood pressure at times as well as palpitations. At this time request a surveillance monitor for 2 weeks. documented in this encounter Miscellaneous Notes * Assessment & Plan Note - Mendoza Parker MD - 04/16/2020 7:05 PM CDT Associated Problem(s): Insomnia Patient's years of poor sleep pattern. She falls asleep around 3:00 a.m. in the morning wakes up around 8 sometimes earlier.. Some fatigue during the day. I gave patient information sleep hygiene at this time she is drinking more than usual with the COVID-19 restrictions this may be aggravating hersleep disturbance. Patient also seeing [facility] psychiatry for depression she was given Seroquel 50 mg daily she stop taking and she was feeling too sedated on it. Advised patient she can take a 25 mg Seroquel. However given the fact she has tried drinking daily specially at night this may have a lot todo with her sedation on Seroquel. * Assessment & Plan Note - Mendoza Parker MD - 04/16/2020 7:04 PM CDT Associated Problem(s): Alcohol abuse Patient with a COVID-19 restrictions and quarantine she is increase in alcohol intake 5-7 days weekmore frequently 7 days a week and 7-10 drinks.. * Assessment & Plan Note - Mendoza Parker MD - 04/16/2020 7:03 PM CDT Associated Problem(s): Acute cystitis without hematuria Patient having some urgency frequency and dysuria ciprofloxacin has not worked for the past. I am going to get a UA and start her on Macrobid 100 mg twice a day 5 days. * Assessment & Plan Note - Mendoza Parker MD - 04/16/2020 7:02 PM CDT Associated Problem(s): Essential hypertension Patient now nervous started/valsartan 300 mg daily there times a blood pressure isn't controlled which she is very concerned about. Patient is also having palpitations. Nothing else new is going on patient drinks 5-7 days a week 5-10 drinks this may be responsible for changes in blood pressure at times as well as palpitations. At this time request a surveillance monitor for 2 weeks. documented in this encounter Plan of Treatment Not on file documented as of this encounter Results * T4, free (04/15/2020 4:01 PM CDT) Free T4 1.22 0.90 - 1.70 ng/dL [facility] Blood specimen (specimen) 04/15/2020 4:01 PM CDT 04/15/2020 7:35 PM CDT Mendoza Parker MD LAB BLOOD ORDERABLES Final Result [facility] [address] Department [place] [address] documented in this encounter Visit Diagnoses Diagnosis Tachycardia- Primary Unspecified tachycardia Acute cystitis without hematuria Alcohol abuse Nondependent alcohol abuse, unspecified drinking behavior Essential hypertension Unspecified essential hypertension Primary insomnia Persistent disorder of initiating or maintaining sleep documented in this encounter Care Teams Casing Splitter Relationship Specialty Start Date End Date Mendoza Parker MD PCP - General 02/18/17 06/12/20 documented as of this encounter
--- OUTSIDE RECORDS SUMMARY | 2024-11-19 04:51 | XMS_ITS | Encounter Summary ---
Author Organization 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
--- OUTSIDE RECORDS SUMMARY | 2024-11-19 04:51 | XMS_ITS | Encounter Summary ---
Author Organization 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
--- OUTSIDE RECORDS SUMMARY | 2024-11-19 04:51 | XMS_ITS | Encounter Summary ---
Author Organization [facility] Address [address] [place] [address] Phone Care Team Providers Care Food Safety Field Specialist Name Role Phone Mendoza Parker MD Primary Care Provider +1- [phone] Encounter Details Date Type Department Care Team (Late st Contact Info) Description 10/22/2019 11:40 AM HOME HEALTH CARE PROVIDER Office Visit [facility] [address] [place] [address] [place] [phone] Urbano Delacruz MD [address] [place] [address] Age-related osteoporosis without current pathological fracture (Primary Dx) Social History Tobacco Use Types Packs/Day Years Used Date Smoking Tobacco: Every Day Cigarettes Smokeless Tobacco: Never Alcohol Use Standard Drinks/Week Comments No 0 (1 standard drink = 0.6 oz pur e alcohol) Comments No Sex and Gender Information Value Date Recorded Sex Assigned at Not on file 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:46 AM HOME HEALTH CARE PROVIDER Gender Identity Not on file Sexual Orientation Not on file documented as of this encounter Last Filed Vital Signs Vital Sign Reading Time Taken Comments Blood Pressure 167/107 10/22/2019 11:15 AM HOME HEALTH CARE PROVIDER Pulse 73 10/22/2019 11:15 AM HOME HEALTH CARE PROVIDER Temperature 36.8 ??C (98.2 ??F) 10/22/2019 11:[address] Respiratory Rate - - Oxygen Saturation - - Inhaled Oxygen Concentration - - Weight 76.4 kg (168 lb 6.4 oz) 10/22/2019 11:15 AM HOME HEALTH CARE PROVIDER Height 151.1 cm (4' 11.5 ) 10/22/2019 11:15 AM [facility] Body Mass Index 33.44 10/22/2019 11:15 AM HOME HEALTH CARE PROVIDER documented in this encounter Progress Notes * Urbano Delacruz MD - 10/22/2019 11:40 AM CST NAME: Shivani Betancur : 1965 [...] status post ORIF in April of 2015. It appears to have radiographically and clinically healed. There was some concern from the patient's orthopedician for intraop bone quality. The patient was initiated on Forteo in July of 2015 for a planned 2-year course 2. Vitamin D deficiency. History of prior elevations of alkaline phosphatase, though normalization on CMP dated 07/09/2015 prior to Forteo start. 3. HTN 4. NEO 5. Obesity INTERVAL MEDICAL HISTORY: The patient is a very pleasant 54 year-old, postmenopausal, female. She reports no interval falls or fractures, concern for fractures. Had had 2 doses of Prolia to date due for next dose in 11/2019. Notes MSK symptoms with her initial dose of Prolia. No falls or fractures. Has been compliant with her CPAP device. Unclear if she has benefit from her device. S/p removal of her surgical hardware from her ORIF performed in 2018. She notes improved mobility and substantial weight loss- last weight at home 10 Lbs. Recently resumed smoking a several cigarettes per day this past year. Tried Chantix had nausea. Notes she is depressed, due to her son moving out of the home-symptoms have improved. Reports trip to [place] in June. Currently on 3000IUs of vitamin D daily, 600 mg calcium. one serving dairy daily, No structured weight bearing activity. ROS: right dental pain and swelling, dx with TMJ. Custom splint - helped relieve symptoms, underwent crown placement. Concerns for a deviated septum. PAST MEDICAL HISTORY: 1. Severe osteoporosis based [...] HISTORY 2004 Cryoablation ??? OTHER SURGICAL HISTORY 1983 : [...] or abscess without bleeding ??? Need for haqhnhzjco-uhxopku-xpcewyhxo (Tdap) vaccine ??? Breast cancer screening ??? Shaking ??? Poison shala dermatitis ??? Seizure-like activity (CMS/HCC) ??? Brain mass CURRENT MEDICATIONS: Current Outpatient Prescriptions: ??? AFLURIA QUAD [id number] 60 mcg/0.5 mL suspension, , Disp: , [...] daily., Disp: 30 tablet, Rfl: 0 ??? mgzlcfwb-tzfxmiixz-gpsgxokhimass (MAXITROL) 3.5mg/mL-10,000 unit/mL-0.1 % ophthalmic suspension, , [...] sleep., Disp: 30 tablet, Rfl: 1 ??? ikytismbzylxz-fuyworw-vluwdhrg (EXCEDRIN MIGRAINE) 250-250-65 mg per tablet, 1-2 [...] Stroke Other Stroke; VITAL SIGNS: Vitals BP (!) 167/107 Pulse 73 Temp 36.8 ??C (98.2 ??F) Ht 151.1 cm (4' 11.5 ) Wt 76.4 kg (168 lb 6.4 oz) BMI 33.44 kg/m?? PHYSICAL EXAM: Physical Exam Constitutional: She [...] memory, affect and judgment normal. BONE DENSITY: BONE MINERAL DENSITY OF THE LUMBAR SPINE Bone Mineral Density (BMD) of the lumbar spine was measured from L1-L4 and the average density was calculated to be 0.978 gm/cm. This corresponds to a T-score standard deviations from the mean of young adults of -0.6. When compared to the previous study of 10/16/2018 ??there has been a measured 0.047 gm/cm 5.1 % increase which is considered significant. BONE MINERAL DENSITY OF THE PROXIMAL FEMUR Bone Mineral Density (BMD) of the left hip total was found to be 1.016 gm/cm2. This corresponds to a T-score standard deviations from the mean of young adults of 0.6. Femoral neck is 0.806 gm/cm2 with a T-score ??of -0.4. When compared to the previous study of 10/16/2018 there has been no measurable change noted. ?? LABS: Recent Results (from the past 1008 hour(s)) Basic metabolic panel Collection Time: 09/13/18 8:18 AM Result Value Ref Range Glucose 117 (H) 65 - 99 mg/dL BUN 12 7 - 25 mg/dL Creatinine 0.56 0.50 - 1.05 mg/dL eGFR NON-AFR. LIBYAN 106 > OR = 60 mL/min/1.73m2 EGFR [...] (calc) ASSESSMENT AND PLAN: This is a 54-year-old, postmenopausal, female with bone mineral densities that [...] briefly on fosamax 4 -5 months. Recieved 2 doses of Prolia due for an additional dose in 11/2019, will then plan given improvements in BMD to transition Reclast 05/2020. Counseled smoking cessation Reviewed the goal is 1200mg of calcium per day preferably through dietary sources 3000 IUs daily of vitamin D for maintenance. Engage in weight bearing activity as tolerated. Will f/u in 1yr with Rpt BMD. (2) Screen for Darío's given her young age, bone densities, and her other constellation of symptoms including weight gain, fatigue, centri- pedal obesity, dexamethasone suppression test to rule outthe possibility of subclinical Darío's. Dex supressiont test negative. Am cortisol 0.6 (3) HTN- weight loss, DASH diet, decrease ETOH and smoking cessation. Handouts provided to the patient. (4) Depression - suggest follow up with PCP and therapist. Thank you for sending your patient to the [facility] at [facility]. Please let me know if I can be of any more assistance. If you have any questions or concerns please do not hesitate to give me a call. HEALTH CARE PROVIDER documented in this encounter Plan of Treatment Not on file documented as of this encounter Visit Diagnoses Diagnosis Age-related osteoporosis without current pathological fracture- Primary documented in this encounter Care Teams Food Safety Field Specialist Relationship Specialty Start Date End Date Mendoza Parker MD PCP - General 02/18/17 06/12/20 documented as of this encounter
--- OUTSIDE RECORDS SUMMARY | 2024-11-19 04:51 | XMS_ITS | Encounter Summary ---
Author Organization [facility] Address [address] [place] [address] Care Team Providers Care Sales Porter Name Role Phone Mendoza Parker MD Primary Care Provider [phone]- [phone] Encounter Details Date Type Department Care Team (Late st Contact Info) Description 05/28/2020 9:30 AM CDT Office Visit [facility] [address] [place] [address] Corina Zambrano, 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 Gender Identity Not on file Sexual Orientation Not on file documented as of this encounter Last Filed Vital Signs Vital Sign Reading Time Taken Comments Blood Pressure 150/94 05/28/2020 9:55 AM CDT Pulse 92 05/28/2020 9:55 AM CDT Temperature - - Respiratory Rate - - Oxygen Saturation - - Inhaled Oxygen Concentration - - Weight 74.4 kg (164 lb) 05/28/2020 9:55 AM CDT Height 149.9 cm (4' 11 ) 05/28/2020 9:55 AM CDT Body Mass Index 33.12 05/28/2020 9:55 AM CDT documented in this encounter Ordered Prescriptions Prescription Sig Dispense Quantity Refills Last Filled Start Date End Date zolpidem (AMBIEN) 10 mg tabletIndications: Sleep-Onset Insomnia Take 1 tablet (10 mg total) by mouth nightly as needed for sleep 30 tablet 05/28/2020 1 clonazePAM (KlonoPIN) 0.5 mg tablet Take 1 tablet (0.5 mg total) by mouth nightly 30 tablet 05/28/2020 1 documented in this encounter Progress Notes * Corina Zambrano NP - 05/28/2020 9:30 AM CDT Chief complaints: NEO, hypersomnia. Delayed sleep cycle diorder. 1. Moderate NEO. Pt endorses she has been compliant to the therapy. No change in her sleep schedule. Stable today. Pt re[prts very dry mouth in the morning. Has not been using water in the water tank. 2. Pt reports worsening control of her daytime sleepiness. The pt's [place]itt[place] Sleepiness Scale (ESS) is: 7 (was 0 during the last visit). 3. Obesity. 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 It has not been effective. She has been only on ambien without melatonin. Smokes when she cannot fall asleep.She has noticed intermittent body jerky movement that wakes up in the middle of the night and cannot go back to bed. Past Medical History: Diagnosis Date ??? Disorder [...] file Gets together: Not on file Attends temple service: Not on file Active member of [...] chip today. 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 Continue. Current setting should be 6-11cm. Will request supply. Date range: December 02, 2019 to December [...] melatonin 1 mg 5 hours before sleep time. Pt to restart the chrono therapy. 3. Obesity: The effects of obesity obstructive sleep apnea syndrome and other morbidities was discussed. Recommended diet and exercise in losing weight. Patient verbalizes an understanding. 4. Body jerky movement. Will add clonazepam 0.5mg as a trial. Will follow up in 6 months. Pt to call in 4 weeks regarding the effectiveness of clonazepam. 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
--- OUTSIDE RECORDS SUMMARY | 2024-11-19 04:51 | XMS_ITS | Encounter Summary ---
Author Organization [facility] Address [address] [place] [id number] Care Team Providers Care Machinist Name Role Phone Mendoza Parker MD Primary Care Provider [phone]- [phone] Reason for Visit * Reason Onset Date Comments [facility] 04/18/2020 Encounter Details Date Type Department Care Team (Late st Contact Info) Description 04/18/2020 Telephone [facility] [address] [place] [phone] Mendoza Parker MD [address] [address] event monitor [facility] Social History Tobacco Use Types Packs/Day Years Used Date Smoking Tobacco: Every Day Cigarettes Smokeless Tobacco: Never Alcohol Use Standard Drinks/Week Comments No 0 (1 standard drink = 0.6 oz pur e alcohol) Comments No Sex and Gender Information Value Date Recorded Sex Assigned at Not on file 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 * Addendum Note - Usha Smith - 04/18/2020 4:19 PM CDTAddended by: USHA SMITH on: 04/18/2020 04:19 PM Modules accepted: Orders * Telephone Encounter - Josefa Bragg RN - 04/18/2020 3:26 PM CDT Called and let pt know that if she is having the fast HR/palpitaions then the 48 hour monitor is fine. Pt verbalized understanding and would like to have the order sent to [facility] because it is closer to her. To Admin: Please send order for 48 hour heart monitor to [facility] for heart palpitations. TY * Telephone Encounter - Mendoza Parker MD - 04/18/2020 3:16 PM CDT Please advised patient she if she has absolutely having these rapid heartbeats every day several times a day health 48 hour monitor will be sufficient. Often times asked for 2 week monitor.. Reason Iasked for 2 week monitor his because some people have days that they do not have sensation of palpitations or rapid heartbeat.. So she is having the rapid heartbeats or palpitations every day 48 hourmonitor tablets of hospital will be of sufficient * Telephone Encounter - Yady Chacon MA - 04/18/2020 2:48 PM CDT Sending to [facility] , ok to order? * Telephone Encounter - Mary Carmen - 04/18/2020 2:41 PM CDT Pt called [facility] to check status of monitor. Pt was told they only do the 24 or 48 hour monitor, not the Event Monitor Asking for an order to [facility] for an Event Monitor CBN: [phone] documented in this encounter Plan of Treatment Not on file documented as of this encounter Visit Diagnoses Diagnosis Palpitation- Primary Palpitations documented in this encounter Care Teams Machinist Relationship Specialty Start Date End Date Mendoza Parker MD PCP - General 02/18/17 06/12/20 documented as of this encounter
--- OUTSIDE RECORDS SUMMARY | 2024-11-19 04:51 | XMS_ITS | Encounter Summary ---
Author Organization 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
--- OUTSIDE RECORDS SUMMARY | 2024-11-19 04:51 | XMS_ITS | Encounter Summary ---
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 Name Role Phone Mendoza Parker MD Primary Care Provider [phone] Reason for Visit * Reason Comments Hypertension Encounter Details Date Type Department Care Team (Late st Contact Info) Description 06/04/2020 4:12 PM CDT - 06/04/2020 7:53 PM CDT Emergency [facility] Emergency Department [address] [place] [address] Sahara Sears MD [address] [place] [id number] Nonintractable headache, unspecified chronicity pattern, unspecified headache type (Primary Dx); Chest pain, unspecified type Discharge Disposition: Discharge to home or self care Social History Tobacco Use Types Packs/Day Years Used Date Smoking Tobacco: Every Day Cigarettes Smokeless Tobacco: Never Alcohol Use Standard Drinks/Week Comments No 0 (1 standard drink = 0.6 oz pur e alcohol) Comments No Sex and Gender Information Value Date Recorded Sex Assigned at Not on file 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 Gender Identity Not on file Sexual Orientation Not on file documented as of this encounter Last Filed Vital Signs Vital Sign Reading Time Taken Comments Blood Pressure 111/67 06/04/2020 7:30 PM CDT Pulse 73 06/04/2020 7:30 PM CDT Temperature 36.4 ??C (97.5 ??F) 06/04/2020 7:30 PM CD T Respiratory Rate 20 06/04/2020 7:30 PM CDT Oxygen Saturation 98% 06/04/2020 7:30 PM CDT Inhaled Oxygen Concentration - - Weight - - Height - - Body Mass Index - - documented in this encounter Discharge Diagnoses Diagnosis Headache - HEADACHE Chest pain, unspecified - CHEST PAIN, UNSPECIFIED Essential (primary) hypertension - ESSENTIAL (PRIMARY) HYPERTENSION Unspecified essential hypertension Disorder of thyroid, unspecified - DISORDER OF THYROID, UNSPECIFIED Fibromyalgia - FIBROMYALGIA Unspecified myalgia and myositis Sleep apnea, unspecified - SLEEP APNEA, UNSPECIFIED Irritable bowel syndrome without diarrhea - IRRITABLE BOWEL SYNDROME WITHOUT DIARRHEA Gastro-esophageal reflux disease without esophagitis - GASTRO-ESOPHAGEAL REFLUX DISEASE WITHOUT ESOPHAGITIS Hyperlipidemia, unspecified - HYPERLIPIDEMIA, UNSPECIFIED 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 - NAILER HAND (CURRENT) USE OF ASPIRIN Other intermediate project manager (current) drug therapy - OTHER NAILER HAND (CURRENT) DRUG THERAPY Allergy status to other antibiotic agents status - ALLERGY STATUS TO OTHER ANTIBIOTIC AGENTS STATUS Allergy status to narcotic agent status - ALLERGY STATUS TO NARCOTIC AGENT STATUS Allergy status to other drugs, medicaments and biological substances status - ALLERGY STATUS TO OTHER DRUGS, MEDICAMENTS AND BIOLOGICAL SUBSTANCES STATUS documented in this encounter Discharge Instructions * Discharge Instructions* Sahara Sears MD - 06/04/2020 7:40 PM CDT Low risk Heart Score (0-3): At this time it does not seem like your chest pain is related to your heart. Even though all of your tests today were normal, there is approximately a 1-2% chance that youwill go on to have a major acute cardiac event (heart attack or from any cause) in the next month. Please see your primary care doctor or real estate intern within 72 hours. If you have continuing or returning chest pain please return to the emergency department any time. Return to the emergency department for shortness of breath, difficulty breathing, fever, coughing up blood, numbness or weakness, migratory pain or chest pain radiating to the back, leg swelling, vomiting blood, lightheadedness or any other new concerning symptoms. * Attachments The following attachments cannot be sent through Care Everywhere. * Headache, Unspecified (Ethiopian) * Chest Pain (Discharge Care) (Ethiopian) documented in this encounter Medications at Time of Discharge cyclobenzaprine (FLEXERIL) 10 mg tablet Take 1 tablet (10 mg total) by mouth 3 (three) times a day as needed 10/28/2017 NARCAN 4 mg/actuation spray,non-aeroso l 10/02/2019 pregabalin (LYRICA) 75 mg capsule Take 1 capsule (75 mg total) by mouth daily 02/05/2020 acetaminophen-as pirin-caffeine (EXCEDRIN MIGRAINE) 250-250-65 mg per tablet 1-2 per week 0 aspirin 81 mg enteric coated tablet TAKE ONE TABLET BY MOUTH ONCE DAILY 90 tablet 1 02/11/2020 3 atorvastatin (LIPITOR) 20 mg tablet TAKE ONE TABLET BY MOUTH ONCE DAILY 90 tablet 1 05/06/2020 4 cholecalciferol (VITAMIN D-3) 1000 unit tablet Take 1,000 Units by mouth daily 3 clonazePAM (KlonoPIN) 0.5 mg tablet Take 1 tablet (0.5 mg total) by mouth nightly 30 tablet 5 05/28/[address] (CYMBALTA) 30 mg capsule Take 30 mg by mouth daily 03/23/2018 0 estradiol (ESTRACE) 0.01 % (0.1 mg/gram) vaginal cream INSERT 1/2 TO 1 GRAM VAGINALLY 1 TO 2 TIMES PER WEEK 42.5 0 03/07/2013 0 HYDROcodone-acet aminophen (NORCO) 5-325 mg per tabletIndication s:Pain Take 1 tablet by mouth every 6 (six) hours as needed. 0 01/01/2018 0 irbesartan (AVAPRO) 75 mg tablet Take 2 tablets (150 mg total) by mouth nightly 90 tablet 3 04/24/2020 0 metoprolol XL (TOPROL-XL) 25 mg extended release tablet Take 0.5 tablets (12.5 mg total) by mouth 2 (two) times a day 180 tablet 3 04/28/2020 1 nitrofurantoin (MACRODANTIN) 100 mg capsule Take 100 mg by mouth 2 (two) times a day 0 omeprazole (PriLOSEC) 40 mg capsule TAKE ONE CAPSULE BY MOUTH ONCE DAILY 30 capsule 1 03/07/2020 0 pen needle, diabetic (BD ULTRA-FINE MINI PEN NEEDLE) 31 gauge x 3/16 needle use one needle daily with Forteo Pen 06/30/2015 0 zolpidem (AMBIEN) 10 mg tabletIndication s:Sleep-Onset Insomnia Take 1 tablet (10 mg total) by mouth nightly as needed for sleep 30 tablet 5 05/28/2020 1 documented as of this encounter Discharge Disposition Disposition Code Departure Means Destination Discharge to home or self care documented in this encounter ED Notes * Sahara Sears MD - 06/04/2020 5:01 PM CDT Triage Chief Complaint: Chief Complaint Patient presents with ??? Hypertension H&P: Dale Betancur is a 54 y.o. female with pertinent past medical history of hypertension presents forelevated blood pressure in the 160s with a headache and chest discomfort. Patient usually has headaches when her BP is high. She spoke with her real estate intern who referred her to the ED. She denies numbness or weakness. Patient took an ambien. She state she came to the ED today so they can figure out why her BP goes up and down . No other complaints at this time. ROS: At least 10 systems reviewed and otherwise negative except as in the HPI. Past Medical History: Diagnosis Date ??? Disorder [...] ADE/BSO ??? VAGINAL HYSTERECTOMY 2009 Hysterectomy, vaginal HOME MEDICATIONS : aspirin 81 mg enteric coated tablet atorvastatin (LIPITOR) 20 mg tablet cholecalciferol (VITAMIN D-3) 1000 unit tablet cyclobenzaprine (FLEXERIL) [address] (CYMBALTA) 30 mg capsule estradiol (ESTRACE) 0.01 % (0.1 mg/gram) vaginal cream HYDROcodone-acetaminophen (NORCO) 5-325 mg per tablet irbesartan (AVAPRO) 75 mg tablet metoprolol XL (TOPROL-XL) 25 mg extended release tablet pregabalin (LYRICA) 75 mg capsule zolpidem (AMBIEN) 10 mg tablet zsyrwczlauvzm-qaqfqwi-xdggyzgu (EXCEDRIN MIGRAINE) 250-250-65 mg per tablet clonazePAM (KlonoPIN) 0.5 mg tablet NARCAN 4 mg/actuation spray,non-aerosol nitrofurantoin (MACRODANTIN) 100 mg capsule omeprazole (PriLOSEC) 40 mg capsule pen needle, diabetic (BD ULTRA-FINE MINI PEN NEEDLE) 31 gauge x 3/16 needle Allergies Allergen Reactions ??? Ciprofloxacin Shortness of [...] only Reaction: Itching, Nausea, ??? Lisinopril Cough Smoker No family history of early cardiac disease Nursing Notes Reviewed. Physical Exam: ED Triage Vitals Temp Pulse Resp BP SpO2 06/04/20 1432 06/04/20 1432 06/04/20 1432 06/04/20 1432 06/04/20 1432 36.4 ??C (97.5 ??F) 105 18 (!) 148/103 99 % Temp src Heart Rate Source Patient Position BP Location FiO2 (%) 06/04/20 1432 06/04/20 1645 06/04/20 1645 06/04/20 1645 -- Temporal Monitor Lying Right arm GENERAL APPEARANCE: Awake and alert. No acute distress. HEAD: Atraumatic. EYES: Sclera anicteric. EOMI. ENT: Tolerates saliva. NECK: Supple. Trachea midline. No JVD HEART: RRR. Radial pulses 2+. LUNGS: Respirations unlabored. CTAB. ABDOMEN: Soft. Non-tender. No guarding or rebound. EXTREMITIES: No acute deformities. No lower extremity edema SKIN: Warm and dry. NEUROLOGICAL: Awake and alert. GCS 15. Cranial nerves 2-12 grossly intact. Strength 5/5 throughout.Light touch sensation intact throughout. Finger to nose WNL. DTR's 2+ in all 4 extremities. Gait normal. PSYCHIATRIC: Anxious affect. I have reviewed and interpreted all of the currently available lab results from this visit (if applicable): Labs Reviewed CBC WITH AUTO DIFFERENTIAL - Abnormal Result Value WBC 11.6 (*) Hgb 13.3 Hct 40.2 Plt 334 MPV 9.9 RBC 4.29 MCV 93.7 MCH 31.0 MCHC 33.1 RDW CV 12.7 RDW SD 44.1 NRBC abs 0.00 DIFFERENTIAL AUTO - Abnormal Neutrophil abs 7.9 (*) Imm gran abs 0.1 Lymphocyte abs 3.0 Monocyte abs 0.5 Eosinophil abs 0.2 Basophil abs 0.1 Neutrophil pct 67.6 Imm gran pct 0.5 Lymphocyte pct 25.5 Monocyte pct 4.4 Eosinophil pct 1.6 Basophil pct 0.4 COMPREHENSIVE METABOLIC PANEL Sodium 138 Potassium, pl 4.2 Chloride 104 CO2 24 Anion gap 9 BUN 12 Creatinine 0.67 Glucose 111 Calcium 9.8 Bilirubin, total 0.2 Protein, pl 7.4 Albumin 4.4 Alk phos 123 ALT 16 AST 16 EGFR GFR 99 TROPONIN T Troponin T <0.01 Radiographs (if obtained): Report Reviewed: XR Chest Pa Lateral 2 Vw Final Result No acute cardiopulmonary abnormality. THIS IS AN ELECTRONICALLY VERIFIED FINAL REPORT 06/04/2020 6:26 PM - Electronically signed by Shadi Guajardo M.D. DONA: DONA Report ID: [id number] Reading Location: [place] [address] EKG (if obtained): (All EKGs are interpreted by myself in the absence of a real estate intern) ED course: Vitals: 06/04/20 1830 06/04/20 1900 06/04/20191406/04/20 193 BP: 112/61 94/53 111/67 BP Location: Right arm Patient Position: Pulse: 76 71 71 73 Resp: Temp: 36.4 ??C (97.5 ??F) TempSrc: SpO2: 96% 98% 96% 98% ED Course as of Jun 04 2028 Time: 06/04 1748 Comment: Rate: ?ECG rate: ??75 ?ECG rate assessment: normal ?? Rhythm: ?Rhythm: sinus rhythm ?? Ectopy: ?Ectopy: none ?? QRS: ?QRS axis: ??Indeterminate ?QRS intervals: ??Normal Conduction: ?Conduction: normal ?? ST segments: ?ST segments: ??Normal T waves: ?T waves: normal ?? Previous ECG: ?Previous ECG: ??Compared to current ?Date of previous ECG: ??04/17/2020 Interpretation: ?Interpretation: No significant change ?? By: Sahara Sears MD Time: 06/04 1748 Comment: Stress test 01/31/19 IMPRESSION: 1. No left ventricular ischemia or infarction seen. 2. Normal left ventricular ejection fraction of 66%. 3. No left ventricular wall motion abnormality on cine images. 4. No significant change compared to 08/03/2017 By: Sahara Sears MD Time: 06/04 1926 Comment: Rechecked patient. Patient feels better and wants to go home. By: Shahid Mora MDM: Headache not worst of life, not thunderclap of onset, no fever, no neck stiffness, no indication for CT LP. Patient has had MRI of the brain before and reports that she has a meningioma. She reports she has had headache previously similar to the 1 she has today when she has had hypertension in the past. Treated with fluids and ketorolac. Medical decision making: Wells low risk, no indication for D-dimer or CTA No ripping tearing chest pain, no migratory pain or pain radiating through to the back, no numbnessweakness or confusion, normal symmetrical peripheral pulses No recent instrumentation of the esophagus no retching or vomiting, no findings on x-ray concerningfor in pneumomediastinum No pneumonia noted on chest x-ray, no tension pneumothorax No history of kidney disease or malignancy, no cardiac tamponade physiology suspected Low risk heart score 0-3: Discussed with the patient heart score and the associated 1% risk of acute cardiac event in next month. After discussing her options, the patient opted to go home. She has return precautions and follow-up instructions to which she verbalized understanding and agreement. After treatment for headache, patient's blood pressure came down nicely. Normal neuro exam. She says she feels much better. Clinical Impression: 1. Nonintractable headache, unspecified chronicity pattern, unspecified headache type 2. Chest pain, unspecified type Disposition: discharge (Please note that portions of this note may have been completed with a voice recognition program. 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 Please contact me for any clarification. Portions of this notewere prepared by scribe) This note is prepared by Shahid Mora acting as a scribe for Sahara Sears MD I electronically signed this note at 8:28 PM on 06/04/2020. I, Sahara Sears MD, have personally performed the services described in the documentation Sahara Sears MD 06/04/20 2030 * Ale Ramirez RN - 06/04/2020 2:31 PM CDT Pt sent to the ED by her PCP for complaints of hypertension along with a headache, states she has had it for a while, also complaints of pain to a varicose vein on her left inner leg. documented in this encounter Miscellaneous Notes * ED Procedure Note - Sahara Sears MD - 06/04/2020 5:46 PM CDT Associated Order(s): ECG 12 lead Procedure ECG 12 lead Date/Time: 06/04/2020 5:46 PM Performed by: Sahara Sears MD Authorized by: Sahara Sears MD Rate: ECG rate: 75 ECG rate assessment: normal Rhythm: Rhythm: sinus rhythm Ectopy: Ectopy: none QRS: QRS axis: Indeterminate QRS intervals: Normal Conduction: Conduction: normal ST segments: ST segments: Normal T waves: T waves: normal Previous ECG: Previous ECG: Compared to current Date of previous EC04/17/2020 Interpretation: Interpretation: No significant change Sahara Sears MD 06/04/20 1747 documented in this encounter Plan of Treatment Not on file documented as of this encounter Procedures Procedure Name Priority Date/Time Associated Diagnosis Comments XR CHEST PA LATERAL 2 VIEWS ED 06/04/2020 5:42 PM CDT ECG 12-LEAD STAT 06/04/2020 4:47 PM CDT EGFR STAT 06/04/2020 3:21 PM CDT DIFFERENTIAL AUTO STAT 06/04/2020 3:2 1 PM CDT CBC WITH AUTO DIFFERENTIAL STAT 06/04/2020 3:21 PM CDT COMPREHENSIVE METABOLIC PANEL STAT 06/04/2020 3:21 PM CDT TROPONIN T STAT 06/04/2020 3:19 PM CDT documented in this encounter Results * XR Chest Pa Lateral 2 Vw (06/04/2020 5:42 PM CDT) Anatomical Region Laterality Modality Body, Chest N/A Computed Radiogr aphy 06/04/2020 5:20 PM CDT Impressions 06/04/2020 6:29 PM CDT ?? No acute cardiopulmonary abnormality. THIS IS AN ELECTRONICALLY VERIFIED FINAL REPORT 06/04/2020 6:26 PM - Electronically signed by Shadi Guajardo M.D. DONA: DONA D: ??06/04/2020 6:26 PM T: ??06/04/2020 6:26 PM Report ID: [id number] Reading Location: ??[id number] Narrative 06/04/2020 6:29 PM CDT [facility] ?Imaging Result Name: DALE BETANCUR ? Ordering Phys: SAHARA SEARS Age: 54 ?Date of : 1965 ? Accession Number: [id number] Date of Service: 06/04/2020 ??Gender: F EXAM DESCRIPTION: ?? XR CHEST PA LATERAL 2 VIEWS REASON FOR STUDY: ?? Elevated blood pressure and headache for several weeks TECHNIQUE: ?? Frontal and lateral radiographic views of the chest acquired. COMPARISON: ?? 01/23/2019 ??LUNGS/PLEURA: ??No focal consolidation or pneumothorax. No pleural effusion. ??Elevation of the right hemidiaphragm noted. HEART/MEDIASTINUM: ??Heart size is normal. Normal mediastinal and hilar contours. HARDWARE/LINES/TUBES: ??None. BONES: ??No acute findings. OTHER: ??No other significant finding. Procedure Note Shadi Guajardo MD - 06/04/2020 [facility] Imaging Result Name: DALE BETANCUR Ordering Phys: SAHARA SEARS Age: 54 Date of : 1965 Accession Number: [id number] Date of Service: 06/04/2020 Gender: F EXAM DESCRIPTION: XR CHEST PA LATERAL 2 VIEWS REASON FOR STUDY: Elevated blood pressure and headache for severalweeks TECHNIQUE: Frontal and lateral radiographic views of the chestacquired. COMPARISON: 01/23/2019 LUNGS/PLEURA: No focal consolidation or pneumothorax. No pleural effusion. Elevation of the right hemidiaphragm noted. HEART/MEDIASTINUM: Heart size is normal. Normal mediastinal and hilar contours. HARDWARE/LINES/TUBES: None. BONES: No acute findings. OTHER: No other significant finding. IMPRESSION: No acute cardiopulmonary abnormality. THIS IS AN ELECTRONICALLY VERIFIED FINAL REPORT 06/04/2020 6:26 PM - Electronically signed by Shadi Guajardo M.D. DONA: DONA Report ID: [id number] Reading Location: [id number] [place] Sahara Sears MD IMG XR PROCEDURES Final Result * ECG 12 lead (06/04/2020 4:47 PM CDT) 06/04/2020 4:47 PM CDT Narrative [facility] - 06/05/2020 8:31 AM CDT Vent Rate: 75 bpm RR Interval: 794 msec WV Interval: 168 msec QRS Duration: 86 msec QT Interval: 365 msec QTC Interval: 394 msec P-R-T [place]: 51 - -12 - 4 degrees SINUS RHYTHM NORMAL ECG Compared to 01/23/2019 no change Electronically Signed By: Dr Pato Alvarez us Sahara Sears MD ECG ORDERABLES Final Re sult [facility] * eGFR (06/04/2020 3:21 PM CDT) eGFR 99 mL/min/1.7 3 m2 [facility] ([place]) Comment: Interpretive Data Reference Interval Normal ?>/= 90 mL/min/1.73m2 Mildly decreased* ? 60 - 89 mL/min/1.73m2 Mildly to moderately decreased ?45 - 59 mL/min/1.73m2 Moderately to severely decreased ??30 - 44 mL/min/1.73m2 Severely decreased ?15 - 29 mL/min/1.73m2 Kidney Failure ?< 15 ??mL/min/1.73m2 *Relative to young adult level If -[place] multiply value by 1.16. Estimated glomerular filtration rate is determined by [...] 70. Current interpretive data was last reviewed 2016. Blood specimen (specimen) 06/04/2020 3:21 PM CDT 06/04/2020 3:30 PM CDT us Jacob Betancourt MD LAB BLOOD ORDERABLES Final Res ult [facility] ([place]) [facility] [place] [address] * (ABNORMAL) Differential, auto (06/04/2020 3:21 PM CDT) Neutrophil abs 7.9(H) 1.7 - 6.5 K/cumm [facility] ([place]) Imm gran abs 0.1 0.0 - 0.1 K/cumm [facility] ([place]) Lymphocyte abs 3.0 0.8 - 3.3 K/cumm [facility] ([place]) Monocyte abs 0.5 0.2 - 0.8 K/cumm [facility] ([place]) Eosinophil abs 0.2 0.0 - 0.5 K/cumm [facility] ([place]) Basophil abs 0.1 0.0 - 0.1 K/cumm [facility] ([place]) Neutrophil pct 67.6 % [facility] ([place]) Comment: Interpretive Data Percent cell count reference ranges are not reported, since discordance with absolute values may lead to misinterpretation of CBC data. Current Interpretive Data was last revised on 2018. Imm gran pct 0.5 % [facility] ([place]) Comment: Interpretive Data Percent cell count reference ranges are not reported, since discordance with absolute values may lead to misinterpretation of CBC data. Current Interpretive Data was last revised on 2018. Lymphocyte pct 25.5 % [facility] ([place]) Comment: Interpretive Data Percent cell count reference ranges are not reported, since discordance with absolute values may lead to misinterpretation of CBC data. Current Interpretive Data was last revised on 2018. Monocyte pct 4.4 % [facility] ([place]) Comment: Interpretive Data Percent cell count reference ranges are not reported, since discordance with absolute values may lead to misinterpretation of CBC data. Current Interpretive Data was last revised on 2018. Eosinophil pct 1.6 % [facility] ([place]) Comment: Interpretive Data Percent cell count reference ranges are not reported, since discordance with absolute values may lead to misinterpretation of CBC data. Current Interpretive Data was last revised on 2018. Basophil pct 0.4 % [facility] ([place]) Comment: Interpretive Data Percent cell count reference ranges are not reported, since discordance with absolute values may lead to misinterpretation of CBC data. Current Interpretive Data was last revised on 2018. Blood specimen (specimen) 06/04/2020 3:21 PM CDT 06/04/2020 3:30 PM CDT us Jacob Betancourt MD LAB BLOOD ORDERABLES Final Res ult [facility] ([place]) [facility] [place] [address] * Comprehensive metabolic panel (06/04/2020 3:21 PM CDT) Sodium 138 135 - 145 mmol/L [facility] ([place]) Potassium, pl 4.2 3.3 - 4.9 mmol/L [facility] ([place]) Chloride 104 97 - 110 mmol/L [facility] ([place]) CO2 24 22 - 32 mmol/L [facility] ([place]) Anion gap 9 2 - 15 mmol/L [facility] ([place]) BUN 12 8 - 25 mg/dL [facility] ([place]) Creatinine 0.67 0.60 - 1.10 mg/dL [facility] ([place]) Glucose 111 70 - 199 mg/dL [facility] ([place]) [...] interpretive data was last revised 2017. Calcium 9.8 8.5 - 10.3 mg/dL [facility] ([place]) Bilirubin, total 0.2 0.1 - 1.2 mg/dL [facility] ([place]) Protein, pl 7.4 6.5 - 8.5 g/dL [facility] ([place]) Albumin 4.4 3.5 - 5.0 g/dL [facility] ([place]) Alk phos 123 40 - 130 Units/L [facility] ([place]) ALT 16 7 - 45 Units/L [facility] ([place]) AST 16 10 - 45 Units/L [facility] ([place]) Blood specimen (specimen) 06/04/2020 3:21 PM CDT 06/04/2020 3:30 PM CDT us Jacob Betancourt MD LAB BLOOD ORDERABLES Final Res ult [facility] ([place]) [facility] [place] [address] * (ABNORMAL) CBC with auto differential (06/04/2020 3:21 PM CDT) WBC 11.6(H) 3.8 - 9.9 K/cumm [facility] ([place]) Hgb 13.3 11.9 - 15.5 g/dL [facility] ([place]) Hct 40.2 35.6 - 45.5 % [facility] ([place]) Plt 334 150 - 400 K/cumm [facility] ([place]) MPV 9.9 9.1 - 12.3 fL [facility] ([place]) RBC 4.29 3.90 - 5.20 M/cumm [facility] ([place]) MCV 93.7 81.3 - 96.4 fL [facility] ([place]) MCH 31.0 27.1 - 33.3 pg [facility] ([place]) MCHC 33.1 32.3 - 35.7 g/dL [facility] ([place]) RDW CV 12.7 11.1 - 14.9 % [facility] ([place]) RDW SD 44.1 35.7 - 48.1 fL [facility] ([place]) NRBC abs 0.00 0.00 - 0.01 K/cumm [facility] ([place]) Blood specimen (specimen) 06/04/2020 3:21 PM CDT 06/04/2020 3:30 PM CDT Jacob Betancourt MD LAB BLOOD ORDERABLES Final Res ult Performing Organization Address [facility] de Phone Number [facility] ([place]) 1 [facility] [place] [address] * Troponin T (06/04/2020 3:19 PM CDT) Troponin T <0.01 0.00 - 0.01 ng/mL [facility] ([place]) Comment: Interpretive Data Reference ranges for children <18 years of age have not been established. - > or = 18 years: Serial determinations are recommended for the diagnosis of myocardial infarction. ??Temporal rise and fall are consistent with myocardial infarction when at least one value is above the 99th percentile upper reference limit for troponin assay. ??Journal of the [place] [employer] 2012;60:1581-98. Current Interpretive Data Last Revised Date: 2018. Blood specimen (specimen) 06/04/2020 3:19 PM CDT 06/04/2020 4:59 PM CDT Sahara Sears MD LAB BLOOD ORDERABLES Fin al Result Performing Organization Address [facility] Co de Phone Number [facility] ([place]) [address] [facility] [place] [address] documented in this encounter Visit Diagnoses Diagnosis Nonintractable headache, unspecified chronicity pattern, unspecified headache type- Primary Chest pain, unspecified type documented in this encounter Administered Medications Inactive Administered Medications - up to 3 most recent administrations Medication Order MAR Action Action Date Dose Rate Site acetaminophen (TYLENOL) tablet 1,000 mg 1,000 mg, oral, Once, On Tue06/04/20 at 1657, For 1 dose Given 06/04/2020 5:29 PM CDT 1,000 mg ketorolac (TORADOL) 15 mg/mL injection 15 mg 15 mg, intravenous, Once, On Tue06/04/20 at 1657, For 1 dose, For Adult IV push, administer over 15 seconds, Indications: PainIndications:Pain Given 06/04/2020 5:42 PM CDT 15 mg sodium chloride 0.9% bolus 1,000 mL 1,000 mL, intravenous, at 1,000 mL/hr, Administer over 1 Hours, Once, On Tue06/04/20 at 1657, For 1 dose New Bag 06/04/2020 5:42 PM CDT 1,000 mL 100 0 mL/hr documented in this encounter Historical Medications * This list may reflect changes made after this encounter. cholecalciferol (VITAMIN D-3) 1000 unit tablet Take 1,000 Units by mouth daily 02/23/2023 added in this encounter Active and Recently Administered Medications Times are shown in CDT. Scheduled Medication Order 06/02/2020 06/03/2020 06/04/2020 acetaminophen (TYLENOL) tablet 1,000 mg (COMPLETED) 1,000 mg, oral, Once, On Tue06/04/20 at 1657, For 1 dose 1729 (Given - Provid er: Shefali Singh RN) ketorolac (TORADOL) 15 mg/mL injection 15 mg (COMPLETED) 15 mg, intravenous, Once, On Tue06/04/20 at 1657, For 1 dose, For Adult IV push, administer over 15 seconds, Indications: Pain 1742 (Given - Provid er: Shefali Singh RN) sodium chloride 0.9% bolus 1,000 mL (COMPLETED) 1,000 mL, intravenous, at 1,000 mL/hr, Administer over 1 Hours, Once, On Tue06/04/20 at 1657, For 1 dose 1742 (New Bag - Prov ider: Shefali Singh RN)1908 (Stopped - Provider: Arcelia Mckee RN) documented in this encounter Care Teams Industrial Roof Plumber Relationship Specialty Start Date End Date Mendoza Parker MD PCP - General 02/18/17 06/12/20 documented as of this encounter
--- OUTSIDE RECORDS SUMMARY | 2024-11-19 04:51 | XMS_ITS | Encounter Summary ---
Author Organization [facility] Address [address] [place] [address] Phone Care Team Providers Care Personnel Interviewer Name Role Phone Mendoza Parker MD Primary Care Provider +1- [phone] Reason for Visit * Reason Onset Date Comments Patient issue/concern 10/04/2019 Encounter Details Date Type Department Care Team (Late st Contact Info) Description 10/04/[address] [place] [address] Urbano Delacruz MD Formerly [facility] [address] Patient issue/concern Social History Tobacco Use Types Packs/Day Years Used Date Smoking Tobacco: Every Day Cigarettes Smokeless Tobacco: Never Alcohol Use Standard Drinks/Week Comments No 0 (1 standard drink = 0.6 oz pur e alcohol) Comments No Sex and Gender Information Value Date Recorded Sex Assigned at Not on file 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 Pt states that it is more of her TMJ and now has the issue under control INSERTER * Telephone Encounter - Urbano Delacruz MD - 10/05/2019 12:23 PM CST Please have her keep us posted. Continue the prolia. INSERTER * Telephone Encounter - Melanie Santos CMA - 10/04/2019 10:53 AM CST Spoke with pt and pt states that she recently went to dentist and had xrays completed and did not show exposed bone or a concern with teeth. Pt states that she is going to try to see new dentist per she has a white spot on her gum that is swollen and hurts. Pt is concerned about cancer and wanted to let you know since she is on Prolia. INSERTER documented in this encounter Plan of Treatment Not on file documented as of this encounter Visit Diagnoses Not on filedocumented in this encounter Care Teams Personnel Interviewer Relationship Specialty Start Date End Date Mendoza Parker MD PCP - General 02/18/17 06/12/20 documented as of this encounter
--- OUTSIDE RECORDS SUMMARY | 2024-11-19 04:51 | XMS_ITS | Encounter Summary ---
Author Organization [facility] Address [address] [place] [address] Care Team Providers Care Ball Worker Name Role Phone Mendoza Parker MD Primary Care Provider +1- [phone] Encounter Details Date Type Department Care Team (Late st Contact Info) Description 04/18/2020 Telephone [place] Software Development Engineer 2 [facility] [address] [place] [address] Idalia Schuster NP 2 [facility] [address] [place] [address] Social History Tobacco Use Types Packs/Day Years Used Date Smoking Tobacco: Every Day Cigarettes Smokeless Tobacco: Never Alcohol Use Standard Drinks/Week Comments No 0 (1 standard drink = 0.6 oz pur e alcohol) Comments No Sex and Gender Information Value Date Recorded Sex Assigned at Not on file 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 BP diary * Telephone Encounter - Patricia Friedman MA - 04/18/2020 2:38 PM CDT Pt calling with low Bps now. Pt said there running 100/50. She cut her irbesartan in half as directed by SH yesterday. She has not started taking the metoprolol yet. Please advise. documented in this encounter Plan of Treatment Not on file documented as of this encounter Visit Diagnoses Not on filedocumented in this encounter Care Teams Ball Worker Relationship Specialty Start Date End Date Mendoza Parker MD PCP - General 02/18/17 06/12/20 documented as of this encounter
--- OUTSIDE RECORDS SUMMARY | 2024-11-19 04:51 | XMS_ITS | Encounter Summary ---
Author Organization [facility] Care Team Providers Care Inventory Accountant Name Role Phone Mendoza Parker MD Primary Care Provider +1- [phone] Encounter Details Date Type Department Care Team (Latest Contact Info) Description 09/21/2019 Travel Social History Tobacco Use Types Packs/Day Years Used Date Smoking Tobacco: Every Day Cigarettes Smokeless Tobacco: Never Alcohol Use Standard Drinks/Week Comments No 0 (1 standard drink = 0.6 oz pur e alcohol) Comments No Sex and Gender Information Value Date Recorded Sex Assigned at Not on file 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:46 AM 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
--- OUTSIDE RECORDS SUMMARY | 2024-11-19 04:51 | XMS_ITS | Encounter Summary ---
Author Organization [facility] Address [address] [place] [address] Care Team Providers Care Moth Exterminator Name Role Phone Mendoza Parker MD Primary Care Provider +1- [phone] Reason for Visit * Reason Comments Hypertension Encounter Details Date Type Department Care Team (Late st Contact Info) Description 04/17/2020 1:30 PM CDT Office Visit [place] Property Management Supervisor [address] 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 Gender Identity Not on file Sexual Orientation Not on file documented as of this encounter Last Filed Vital Signs Vital Sign Reading Time Taken Comments Blood Pressure 127/87 04/17/2020 1:35 PM CDT Pulse 103 04/17/2020 1:35 PM CDT Temperature 36.5 ??C (97.7 ??F) 04/17/2020 1:35 PM CD T Respiratory Rate 16 04/17/2020 1:35 PM CDT Oxygen Saturation - - Inhaled Oxygen Concentration - - Weight 75.8 kg (167 lb) 04/17/2020 1:35 PM CDT Height 149.9 cm (4' 11 ) 04/17/2020 1:35 PM CDT Body Mass Index 33.73 04/17/2020 1:35 PM CDT documented in this encounter Ordered Prescriptions Prescription Sig Dispense Quantity Refills Last Filled Start Date End Date metoprolol XL (TOPROL-XL) 25 mg extended release tablet Take 1 tablet (25 mg total) by mouth 2 (two) times a day 180 tablet 3 04/17/2020 0 irbesartan (AVAPRO) 150 mg tablet Take 1 tablet (150 mg total) by mouth nightly 90 tablet 3 04/17/2020 0 documented in this encounter Progress Notes * Idalia Schuster, APPLICATION LEAD - 04/17/2020 1:30 PM CDT Cardiology note Reason for Office Visit: Chief Complaint Patient presents with ??? Hypertension History of Present Illness: Shivani Betancur is a 54 y.o. female with history of hypertension and hyperlipidemia. Has been known to have chest pain in the past but was not had negative stress tests in 2017 in 2019. Presents to the office after having issues with high blood pressure since this past winter. She she saw a physician in [facility] that took her off her Bystolic and [...] per Dr. Parker. Thyroid levels were normal Past Medical History: Diagnosis Date ??? Disorder [...] for blurred vision and visual disturbance. Cardiovascular: Positive for palpitations. Negative for chest pain, claudication, dyspnea on exertion, irregular heartbeat, leg swelling, near- syncope, paroxysmal nocturnal dyspnea and syncope. Respiratory: Negative [...] medication list which includes the following prescription(s): ynfagqxodhcle-vpejcqg-vhfcdeao (EXCEDRIN MIGRAINE), aspirin, atorvastatin (LIPITOR), cyclobenzaprine (FLEXERIL), duloxetinedr (CYMBALTA), estrace, hydrocodone-acetaminophen (NORCO), irbesartan (AVAPRO), isosorbide mononitrate er (IMDUR), lubiprostone (AMITIZA), narcan, ymaylafr-uhlqsxxee-tlilrplkwqzed (MAXITROL), nitrofurantoin monohydrate (MACROBID), omeprazole (PRILOSEC), pen needle, diabetic (BD ULTRA-FINE MINI PEN NEEDLE), quetiapine (SEROQUEL), and zolpidem (AMBIEN). Current Outpatient Medications Medication Sig Dispense Refill ??? yydgwhzucamfq-uwhgdis-pfgqphzj (EXCEDRIN MIGRAINE) 250-250-65 mg per tablet 1-2 [...] breakfast. ??? NARCAN 4 mg/actuation spray,non-aerosol ??? kbaimwgj-fpvezylwn-trrghbkfadfri (MAXITROL) 3.5mg/mL-10,000 unit/mL-0.1 % ophthalmic suspension ??? [...] for this visit. Vital Signs: Vitals BP 127/87 (BP Location: Right arm, Patient Position: Sitting) Pulse 103 Temp 36.5 ??C (97.7 ??F) Resp 16 Ht 149.9 cm (4' 11 ) Wt 75.8 kg (167 lb) BMI 33.73 kg/m?? Vitals: 04/17/20 1335 BP: 127/87 Pulse: 103 Resp: 16 Temp: 36.5 ??C (97.7 ??F) Wt Readings from Last 3 Encounters: 04/17/20 75.8 kg (167 lb) 04/15/20 74.8 kg (165 lb) 01/11/20 76.2 kg (168 lb) Physical Exam: Physical Exam Constitutional: She [...] Duration 109 ms QRS-Interval (MSEC) 84 ms MD-Interval (MSEC) 155 ms QT Interval 361 ms QTc 390 ms QTC Interval ms P [place] 18 deg QRS [place] -10 deg T [place] -8 deg ] Tests: 08/03/2017 Last spec [...] Tobacco Use [Z72.0] Mixed Hyperlipidemia [E78.2] Plan: lifestyle modification for diet- monitor TG with PCP Smoking cessation discussed with patient including the potential health risks. Patient was given options of different aids for smoking cessation. Will continue the discussion. decrease ibesartan to 150 mg po daily and increase metoprolol XL 25 mg po BID continue to monitor BP and HR Diagnoses and all orders for this visit: Essential hypertension (Primary) Mixed hyperlipidemia Nicotine abuse Palpitations Other orders - irbesartan (AVAPRO) 150 mg tablet; Take 1 tablet (150 mg total) by mouth nightly - metoprolol XL (TOPROL-XL) 25 mg extended release tablet; Take 1 tablet (25 mg total) by mouth 2 (two) times a day 04/17/2020 Return for As scheduled with Dr. Martin. Dr. Martin Thank you for the consult. We will be happy to follow in this patient's care. Idalia Schuster NP2:06 PM Cc:Mendoza Parker MD documented in this encounter Plan of Treatment Not on file documented as of this encounter Procedures Procedure Name Priority Date/Time Associated Diagnosis Comments ECG 12-LEAD Routine 04/17/2020 Palpitations documented in this encounter Results * ECG 12 lead (04/17/2020) us Idalia Schuster NP ECG ORDERABLES Final Result documented in this encounter Visit Diagnoses Diagnosis Essential hypertension- Primary Unspecified essential hypertension Mixed hyperlipidemia Nicotine abuse Palpitations documented in this encounter Discontinued Medications Medication Sig Discontinue Reason Start Date End Da te amLODIPine (NORVASC) 2.5 mg tablet 09/13/2019 04/17/2020 BYSTOLIC 10 mg tablet TAKE ONE TABLET BY MOUTH TWICE A DAY 09/12/2019 04/17/2020 calcium carbonate-vitamin D3 (CALCIUM 500 + D) 1,250mg (500mg elemental) - 200 units per tablet 04/17/2020 hyoscyamine (LEVSIN) 0.125 mg tabletIndications:Oni ry Incontinence Take 1 tablet (0.125 mg total) by mouth every 4 (four) hours as needed for cramping 05/03/2019 04/17/2020 isosorbide mononitrate ER (IMDUR) 60 mg 24 hr tablet TAKE ONE TABLET BY MOUTH ONCE DAILY 2018 04/17/2020 lubiprostone (AMITIZA) 24 mcg capsule Take 24 mcg by mouth daily with breakfast. 04/17/2020 prtowkxv-xjfbjherf-tkic methasone (MAXITROL) 3.5mg/mL-10,000 unit/mL-0.1 % ophthalmic suspension 02/01/2018 04/17/2020 nitrofurantoin monohydrate (MACROBID) 100 mg capsule Take 1 capsule (100 mg total) by mouth 2 (two) times a day for 5 days 04/15/2020 04/17/2020 QUEtiapine (SEROquel) 50 mg tablet 10/10/2019 04/17/2020 irbesartan (AVAPRO) 75 mg tablet Take 300 mg by mouth daily Take one tablet daily Discontinued by another clinician 11/27/2019 04/17/2020 metoprolol XL (TOPROL-XL) 25 mg extended release tablet Take 25 mg by mouth daily Reorder 04/17/2020 documented as of this encounter Historical Medications * This list may reflect changes made after this encounter. pregabalin (LYRICA) 75 mg capsule Take 1 capsule (75 mg total) by mouth daily 02/05/2020 nitrofurantoin (MACRODANTIN) 100 mg capsule Take 100 mg by mouth 2 (two) times a day 10/01/2020 metoprolol XL (TOPROL-XL) 25 mg extended release tablet Take 25 mg by mouth daily 04/17/2020 added in this encounter Care Teams Moth Exterminator Relationship Specialty Start Date End Date Mendoza Parker MD PCP - General 02/18/17 06/12/20 documented as of this encounter
--- OUTSIDE RECORDS SUMMARY | 2024-11-19 04:51 | XMS_ITS | Encounter Summary ---
Author Organization [facility] Address [address] [place] [address] Care Team Providers Care Sap Bi Architect Name Role Phone Mendoza Parker MD Primary Care Provider +1- [phone] Encounter Details Date Type Department Care Team (Late st Contact Info) Description 11/02/2019 2:15 PM CRYPTOZOOLOGIST Office [place] [facility] [address] [place] [address] Corina Zambrano, [facility] [address] [place] [address] Obstructive sleep apnea syndrome (Primary Dx); Obesity (BMI 30-39.9); Sleep-wake cycle disorder Social History Tobacco Use Types Packs/Day Years Used Date Smoking Tobacco: Every Day Cigarettes Smokeless Tobacco: Never Alcohol Use Standard Drinks/Week Comments No 0 (1 standard drink = 0.6 oz pur e alcohol) Comments No Sex and Gender Information Value Date Recorded Sex Assigned at Not on file 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:46 AM CRYPTOZOOLOGIST Gender Identity Not on file Sexual Orientation Not on file documented as of this encounter Last Filed Vital Signs Vital Sign Reading Time Taken Comments Blood Pressure 163/98 11/02/2019 2:35 PM CRYPTOZOOLOGIST Pulse 73 11/02/2019 2:35 PM CRYPTOZOOLOGIST Temperature - - Respiratory Rate - - Oxygen Saturation - - Inhaled Oxygen Concentration - - Weight 77.6 kg (171 lb) 11/02/2019 2:35 PM CRYPTOZOOLOGIST Height 149.9 cm (4' 11 ) 11/02/2019 2:35 PM CRYPTOZOOLOGIST Body Mass Index 34.54 11/02/2019 2:35 PM CRYPTOZOOLOGIST documented in this encounter Ordered Prescriptions Prescription Sig Dispense Quantity Refills Last Filled Start Date End Date zolpidem (AMBIEN) 10 mg tabletIndications: Sleep-Onset Insomnia Take 1 tablet (10 mg total) by mouth nightly as needed for sleep 30 tablet 5 11/02/2019 0 documented in this encounter Progress Notes * BilljamesLoveKIM craig - 11/02/2019 2:15 PM CST Chief complaints: NEO, hypersomnia. Delayed sleep cycle diorder. 1. Moderate NEO. Pt endorses she has been compliant to the therapy. No change in her sleep schedule. Stable today. 2. Pt reports better optimized control of her daytime sleepiness. The pt's [place] Sleepiness Scale(ESS) is: 0 (was 0 during the last visit) 3. Obesity. 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 It has been effective. She has been only on ambien. Past Medical History: Diagnosis Date ??? Disorder [...] resource strain: Not on file ??? Food insecurity: Worry: Not on file Inability: Not on file ??? Transportation needs: Medical: Not on file Non-medical: Not on file Tobacco Use ??? Smoking status: Current Every Day Smoker Packs/day: 0.25 ??? Smokeless tobacco: Never Used Substance and Sexual Activity ??? Alcohol use: No ??? Drug use: No ??? Sexual activity: Not on file Lifestyle ??? Physical activity: Days per week: Not on file Minutes per session: Not on file ??? Stress: Not on file Relationships ??? Social connections: Talks on phone: Not on file Gets together: Not on file Attends yarsanism service: Not on file Active member of club or organization: Not on file Attends meetings of clubs or organizations: Not on file Relationship status: Not on file ??? Intimate partner violence: Fear of current or ex partner: Not [...] dysphoric mood. The patient is nervous/anxious. BP 163/98 Pulse 73 Ht 149.9 cm (4' 11 ) Wt 77.6 kg (171 lb) BMI 34.54 kg/m?? Physical Exam Constitutional: Appearance: She is [...] her chip today. 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 The physiology of sleep disordered breathing and [...] 10 mg at bedtime p.r.n. with melatonin 0.5 mg 5 hours before sleep time. 3. Obesity: The effects of obesity obstructive sleep apnea syndrome and other morbidities was discussed. Recommended diet and exercise in losing weight. Patient verbalizes an understanding. Will follow up in 6 months Addendum she brought her chip today on December 31, 2019. Will further adjust her setting to 6-11 cm. Continue the therapy. Date range: December 02, 2019 to December 31, 2019 Compliance rate: 50 % Average usage: 5 hours 44 minutes Pressure: Auto setting 5-20 cm, median 7.1, max 10.2 Leaks:? 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
--- OUTSIDE RECORDS SUMMARY | 2024-11-19 04:51 | XMS_ITS | Encounter Summary ---
Author Organization [facility] Address [facility] [place] [address] Care Team Providers Care Nightman Name Role Phone Mendoza Parker MD Primary Care Provider +1- [phone] Reason for Visit * Diagnostic Imaging (Routine) - Closed Specialty Diagnoses / Procedures Referred By Contac t Referred To Contact Diagnoses Abnormal mammography Procedures Breast Imaging US Outside Reference Nancy Gonzalez CNS Phone: tel: fax: Referral ID Status Reason Start Date Expiration Date Visits Re quested Visits Authorized [id number] Closed 08/06/2021 09/05/2022 1 1 Encounter Details Date Type Department Care Team (Latest Contact Info) Description 02/05/2020 - 02/05/2020 12:04 AM CDT Hospital Encounter [facility] [address] [place] [id number] Discharge Disposition: Discharge to home or self care Social History Tobacco Use Types Packs/Day Years Used Date Smoking Tobacco: Every Day Cigarettes Smokeless Tobacco: Never Alcohol Use Standard Drinks/Week Comments No 0 (1 standard drink = 0.6 oz pur e alcohol) Comments No Sex and Gender Information Value Date Recorded Sex Assigned at Not on file 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 Gender Identity Not on file Sexual Orientation Not on file documented as of this encounter Medications at Time of Discharge cyclobenzaprine (FLEXERIL) 10 mg tablet Take 1 tablet (10 mg total) by mouth 3 (three) times a day as needed 10/28/2017 NARCAN 4 mg/actuation spray,non-aerosol 10/02/2019 pregabalin (LYRICA) 75 mg capsule Take 1 capsule (75 mg total) by mouth daily 02/05/2020 acetaminophen-aspi rin-caffeine (EXCEDRIN MIGRAINE) 250-250-65 mg per tablet 1-2 per week 0 amLODIPine (NORVASC) 2.5 mg tablet 09/13/2019 0 atorvastatin (LIPITOR) 20 mg tablet TAKE ONE TABLET BY MOUTH ONCE DAILY 90 tablet 1 10/09/2019 0 BYSTOLIC 10 mg tablet TAKE ONE TABLET BY MOUTH TWICE A DAY 60 tablet 5 09/12/2019 0 calcium carbonate-vitamin D3 (CALCIUM 500 + D) 1,250mg (500mg elemental) - 200 units per tablet 04/17/[address] (CYMBALTA) 30 mg capsule Take 30 mg by mouth daily 03/23/2018 0 ECOTRIN LOW STRENGTH 81 mg enteric coated tablet TAKE ONE TABLET BY MOUTH ONCE DAILY 90 tablet 1 05/11/2019 0 estradiol (ESTRACE) 0.01 % (0.1 mg/gram) vaginal cream INSERT 1/2 TO 1 GRAM VAGINALLY 1 TO 2 TIMES PER WEEK 42.5 0 03/07/2013 0 HYDROcodone-acetam inophen (NORCO) 5-325 mg per tabletIndications: Pain Take 1 tablet by mouth every 6 (six) hours as needed. 0 01/01/2018 0 hyoscyamine (LEVSIN) 0.125 mg tabletIndications: Urinary Incontinence Take 1 tablet (0.125 mg total) by mouth every 4 (four) hours as needed for cramping 16 tablet 1 05/03/2019 0 irbesartan (AVAPRO) 75 mg tablet Take 300 mg by mouth daily Take one tablet daily 11/27/2019 0 isosorbide mononitrate ER (IMDUR) 60 mg 24 hr tablet TAKE ONE TABLET BY MOUTH ONCE DAILY 90 tablet 1 2018 0 lubiprostone (AMITIZA) 24 mcg capsule Take 24 mcg by mouth daily with breakfast. 0 neomycin-polymyxin -dexamethasone (MAXITROL) 3.5mg/mL-10,000 unit/mL-0.1 % ophthalmic suspension 02/01/2018 0 omeprazole (PriLOSEC) 40 mg capsule TAKE ONE CAPSULE BY MOUTH ONCE DAILY 30 capsule 1 01/02/2020 0 pen needle, diabetic (BD ULTRA-FINE MINI PEN NEEDLE) 31 gauge x 3/16 needle use one needle daily with Forteo Pen 06/30/2015 0 QUEtiapine (SEROquel) 50 mg tablet 10/10/2019 0 zolpidem (AMBIEN) 10 mg tabletIndications: Sleep-Onset Insomnia Take 1 tablet (10 mg total) by mouth nightly as needed for sleep 30 tablet 5 11/02/2019 0 documented as of this encounter Discharge Disposition Disposition Code Departure Means Destination Discharge to home or self care documented in this encounter Plan of Treatment Not on file documented as of this encounter Procedures Procedure Name Priority Date/Time Associated Diagnosis Comments BREAST IMAGING US OUTSIDE REFERENCE Schedule Routine, Read Routine (OP Routine) 02/05/2020 12:00 AM CDT Abnormal mammography documented in this encounter Results * Breast Imaging US Outside Reference (02/05/2020 12:00 AM CDT) Impressions [facility] - 08/06/2021 11:00 AM CDT These images are for Reference purposes only and have not been reviewed by [facility] Radiology. ??There will be no report generated by a [facility] Radiologist. Narrative [facility] - 08/06/2021 11:00 AM CDT EXAMINATION: ??Images For Reference Purposes Only us Nancy Gonzalez SLITTING AND SHIPPING SUPERVISOR IMG MAMMO PROCEDURES Final R esult [facility] documented in this encounter Visit Diagnoses Not on filedocumented in this encounter Care Teams Nightman Relationship Specialty Start Date End Date Mendoza Parker MD PCP - General 02/18/17 06/12/20 documented as of this encounter
--- OUTSIDE RECORDS SUMMARY | 2024-11-19 04:51 | XMS_ITS | Encounter Summary ---
Author Organization [facility] Address [address] [place] [address] Phone Care Team Providers Care Automated Teller Manager Name Role Phone Mendoza Parker MD Primary Care Provider +1- [phone] Reason for Visit * Reason Comments Osteoporosis * Diagnostic Imaging (Routine) - Closed Specialty Diagnoses / Procedures Referred By Contac t Referred To Contact Diagnoses Osteopenia of multiple sites Procedures Dexa Axial Skeleton Bone Density 1 or 2 Site Urbano Delacruz MD Phone: tel: fax: [facility] (All Locations) Referral ID Status Reason Start Date Expiration Date Visits Re quested Visits Authorized [id number] Closed 10/04/2019 11/20/2019 99 99 Encounter Details Date Type Department Care Team (Latest Contact Info) Description 10/22/2019 11:10 AM PURCHASER AUTOMOTIVE PARTS Clinical Support [address] 5[address] [place] [address] [place] [id number] Osteopenia of multiple sites; Age-related osteoporosis without current pathological fracture Social History Tobacco Use Types Packs/Day Years Used Date Smoking Tobacco: Every Day Cigarettes Smokeless Tobacco: Never Alcohol Use Standard Drinks/Week Comments No 0 (1 standard drink = 0.6 oz pur e alcohol) Comments No Sex and Gender Information Value Date Recorded Sex Assigned at Not on file 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:46 AM PURCHASER AUTOMOTIVE PARTS Gender Identity Not on file Sexual Orientation Not on file documented as of this encounter Plan of Treatment Not on file documented as of this encounter Procedures Procedure Name Priority Date/Time Associated Diagnosis Comments DEXA AXIAL SKELETON BONE DENSITY 1 OR MORE SITES Schedule Routine, Read Routine (OP Routine) 10/22/2019 11:36 AM PURCHASER AUTOMOTIVE PARTS Osteopenia of multiple sites documented in this encounter Results * Dexa Axial Skeleton Bone Density 1 or 2 Site (10/22/2019 11:36 AM PURCHASER AUTOMOTIVE PARTS) Anatomical Region Laterality Modality Body N/A Radiographic Krupa ging Narrative 10/22/2019 5:35 PM PURCHASER AUTOMOTIVE PARTS Patient Name: Shivani Betancur Date of : 1965 Date of scan: 10/22/2019 Bone mineral density was performed on a [employer] Discovery Densitometer. ?? Machine Cross-calibration and Precision studies have been performed with a least significant change of 0.024 g/cm at the spine, 0.020 g/cm at the total proximal femur, and 0.014g/cm at the forearm. HISTORY: ??This is a 54 y.o. postmenopausal female with a history of low bone mass and vitamin D deficiency. Currently on treatment with calcium, Prolia, and vitamin D. ??Previously treated with Boniva, Forteo and Reclast. With [...] there has been no measurable change noted. SUMMARY: Bone mineral density is [...] BMD of young normal adults. References: 1) Silver, Annals of Internal Medicine 114(11): ??919-923 (1990) 2) Boyd, Lancet 341 : 72-75 (1992) 3) Santi, Journal Bone and Mineral Research 7(6): 633-8 (1991) 4) Estevan, Journal Bone and Mineral Research 8(10):1227-33 (1992) The history and data sections of the bone mineral density scan were prepared by RT Gissel who is accredited by the International Society of Clinical Densitometry. The overall patient assessment and scan interpretation were performed by Urbano Delacruz M.D. who is certified by the International Society of Clinical Densitometry. [id number] Urbano Delacruz MD IMG DXA PROCEDURES Final Result documented in this encounter Visit Diagnoses Diagnosis Osteopenia of multiple sites Age-related osteoporosis without current pathological fracture documented in this encounter Care Teams Automated Teller Manager Relationship Specialty Start Date End Date Mendoza Parker MD PCP - General 02/18/17 06/12/20 documented as of this encounter
--- OUTSIDE RECORDS SUMMARY | 2024-11-19 04:51 | XMS_ITS | Encounter Summary ---
Author Organization [facility] Address [address] [facility] [address] [place] [address] Care Team Providers Care Cell Tuber Machine Name Role Phone Mendoza Parker MD Primary Care Provider +1- [phone] Reason for Visit * Reason Onset Date Comments Hypotension 04/28/2020 Encounter Details Date Type Department Care Team (Late st Contact Info) Description 04/28/2020 Telephone [place] Maintainer [address] [place] [address] [place] [address] Maya Suresh MA Hypotension Social History Tobacco Use Types Packs/Day Years Used Date Smoking Tobacco: Every Day Cigarettes Smokeless Tobacco: Never Alcohol Use Standard Drinks/Week Comments No 0 (1 standard drink = 0.6 oz pur e alcohol) Comments No Sex and Gender Information Value Date Recorded Sex Assigned at Not on file 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:46 AM HEATING ENGINEER Gender Identity Not on file Sexual Orientation Not on file documented as of this encounter Ordered Prescriptions Prescription Sig Dispense Quantity Refills Last Filled Start Date End Date metoprolol XL (TOPROL-XL) 25 mg extended release tablet Take 0.5 tablets (12.5 mg total) by mouth 2 (two) times a day 180 tablet 3 04/28/2020 1 documented in this encounter Miscellaneous Notes * Telephone Encounter - Patricia Friedman MA - 05/02/2020 9:06 AM CDT Pt notified of message and verbalized understanding. * Telephone Encounter - Maya Suresh MA - 05/02/2020 8:30 AM CDT lc * Telephone Encounter - Mickey Martin MD - 05/01/2020 4:45 PM CDT Discontinue isosorbide and Avapro * Addendum Note - Maya Suresh MA - 04/28/2020 12:12 PM CDTAddended by: MAYA SURESH on: 04/28/2020 12:12 PM Modules accepted: Orders * Telephone Encounter - Maya Suresh MA - 04/28/2020 12:07 PM CDT Pt states bp running low---having fatigue and sob BP 92/44 P 105 Pt says she was on irbesartan 150mg PO QAM and was taking toprol xl 12.5mg PO BID Please advise ... Maya RMA documented in this encounter Plan of Treatment Not on file documented as of this encounter Visit Diagnoses Not on filedocumented in this encounter Discontinued Medications Medication Sig Discontinue Reason Start Date End Da te metoprolol XL (TOPROL-XL) 25 mg extended release tablet Take 1 tablet (25 mg total) by mouth 2 (two) times a day 04/17/2020 04/28/2020 documented as of this encounter Care Teams Cell Tuber Machine Relationship Specialty Start Date End Date Mendoza Parker MD PCP - General 02/18/17 06/12/20 documented as of this encounter
--- OUTSIDE RECORDS SUMMARY | 2024-11-19 04:51 | XMS_ITS | Encounter Summary ---
Author Organization [facility] Address [address] [place] [address] Phone Care Team Providers Care Warning Coordination Meteorologist Name Role Phone Mendoza Parker MD Primary Care Provider +1- [phone] Encounter Details Date Type Department Care Team (Late st Contact Info) Description 05/01/2020 Orders Only [facility] [address] [facility] [address] [place] [address] Urbano Delacruz MD [address] [id number] Social History Tobacco Use Types Packs/Day Years Used Date Smoking Tobacco: Every Day Cigarettes Smokeless Tobacco: Never Alcohol Use Standard Drinks/Week Comments No 0 (1 standard drink = 0.6 oz pur e alcohol) Comments No Sex and Gender Information Value Date Recorded Sex Assigned at Not on file 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:46 AM PRACTICE ARCHITECT Gender Identity Not on file Sexual Orientation Not on file documented as of this encounter Plan of Treatment Not on file documented as of this encounter Procedures Procedure Name Priority Date/Time Associated Diagnosis Comments SCAN - LABS Routine 04/11/2020 documented in this encounter Results * SCAN - LABS (04/11/2020) Urbano Delacruz MD Final Result documented in this encounter Visit Diagnoses Not on filedocumented in this encounter Care Teams Warning Coordination Meteorologist Relationship Specialty Start Date End Date Mendoza Parker MD PCP - General 02/18/17 06/12/20 documented as of this encounter
--- OUTSIDE RECORDS SUMMARY | 2024-11-19 04:51 | XMS_ITS | Encounter Summary ---
Author Organization [facility] Address [address] [place] [address] Phone Care Team Providers Care Slot Machine Key Person Name Role Phone Mendzoa Parker MD Primary Care Provider +1- [phone] Reason for Referral * Diagnostic Imaging (Routine) - Closed Specialty Diagnoses / Procedures Referred By Contac t Referred To Contact Diagnoses Osteopenia of multiple sites Procedures Dexa Axial Skeleton Bone Density 1 or 2 Site Urbano Delacruz MD Phone: tel: fax: [facility] (All Locations) Referral ID Status Reason Start Date Expiration Date Visits Re quested Visits Authorized [id number] Closed 10/04/2019 11/20/2019 99 99 GRADER Encounter Details Date Type Department Care Team (Late st Contact Info) Description 10/04/2019 Orders Only [facility] [address] [facility] Medical Office Building [address] [place] [address] Urbano Delacruz MD [address] [address] Osteopenia of multiple sites (Primary Dx) Social History Tobacco Use Types Packs/Day Years Used Date Smoking Tobacco: Every Day Cigarettes Smokeless Tobacco: Never Alcohol Use Standard Drinks/Week Comments No 0 (1 standard drink = 0.6 oz pur e alcohol) Comments No Sex and Gender Information Value Date Recorded Sex Assigned at Not on file 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:46 AM SPUD GRADER Gender Identity Not on file Sexual Orientation Not on file documented as of this encounter Plan of Treatment Not on file documented as of this encounter Results * Dexa Axial Skeleton Bone Density 1 or 2 Site (10/22/2019 11:36 AM SPUD GRADER) Anatomical Region Laterality Modality Body N/A Radiographic Krupa ging Narrative 10/22/2019 5:35 PM SPUD GRADER Patient Name: Shivani Betancur Date of : 1965 Date of scan: 10/22/2019 Bone mineral density was performed on a [employer] Discovery Densitometer. ?? Machine Cross-calibration and Precision [...] Boyd, Lancet 341 : 72-75 (1992) 3) Black, Journal Bone and Mineral Research 7(6): 633-8 [...] by the International Society of Clinical Densitometry. [id number] Urbano Delacruz MD IMG DXA PROCEDURES Final Result documented in this encounter Visit Diagnoses Diagnosis Osteopenia of multiple sites- Primary Osteopenia of multiple sites Age-related osteoporosis without current pathological fracture documented in this encounter Care Teams Slot Machine Key Person Relationship Specialty Start Date End Date Mendoza Parker MD PCP - General 02/18/17 06/12/20 documented as of this encounter
--- OUTSIDE RECORDS SUMMARY | 2024-11-19 04:51 | XMS_ITS | Encounter Summary ---
Author Organization [facility] Address [address] [place] [address] Care Team Providers Care Delinquency Counselor Name Role Phone Mendoza Parker MD Primary Care Provider +1- [phone] Encounter Details Date Type Department Care Team (Late st Contact Info) Description 10/15/2019 Telephone [facility] [address] [place] [address] Jerri Cam RN Social History Tobacco Use Types Packs/Day Years Used Date Smoking Tobacco: Every Day Cigarettes Smokeless Tobacco: Never Alcohol Use Standard Drinks/Week Comments No 0 (1 standard drink = 0.6 oz pur e alcohol) Comments No Sex and Gender Information Value Date Recorded Sex Assigned at Not on file 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:46 AM TIMBER INSPECTOR Gender Identity Not on file Sexual Orientation Not on file documented as of this encounter Ordered Prescriptions Prescription Sig Dispense Quantity Refills Last Filled Start Date End Date varenicline (CHANTIX STARTING MONTH BOX) 0.5 mg (11)- 1 mg (42) tablet TAKE DIRECTED ON PACKAGE 53 tablet 11/02/2019 0 documented in this encounter Miscellaneous Notes * Telephone Encounter - Jerri Cam RN - 11/02/2019 9:04 AM TIMBER INSPECTOR Erx: varenicline (CHANTIX STARTING MONTH BOX) 0.5 mg (11)- 1 mg (42) tablet MENDOZA PARKER Summary: TAKE DIRECTED ON PACKAGE, Normal Start: 11/02/2019 End: 01/31/2020 Ord/Sold: 11/02/2019 (O) Report Long-term: Pharmacy: [facility] [place], [place] - [address] Med Dose History Patient Sig: TAKE DIRECTED ON PACKAGE Ordered on: 11/02/2019 Dispense: 53 tablet Refills: 0 ordered Admin Instructions: TAKE DIRECTED ON PACKAGE ER INSPECTOR * Telephone Encounter - Jerri Cam RN - 11/01/2019 4:44 PM TIMBER INSPECTOR Per WRB: Okay to give pt Chantix Starting Month Box . ER INSPECTOR * Telephone Encounter - Jerri Cam RN - 10/23/2019 9:36 AM TIMBER INSPECTOR Pt called back. Pt said she would like to restart taking chantix. Pt said that when she originally took it she was very nauseous and decided to stop taking it. However, she really wants to stop smoking and would like to start over. Pt's pharmacist informed her that she needs to start over. TO WRB: Okay to order chantix ER INSPECTOR * Telephone Encounter - Jerri Cam RN - 10/23/2019 9:05 AM TIMBER INSPECTOR Called and spoke to pt's Steven. Steven will have pt call back when she wakes up. ER INSPECTOR * Telephone Encounter - Jerri Cam RN - 10/15/2019 10:29 AM TIMBER INSPECTOR Faxed received for chantix request. Per WRB, call this pt and make sure she actually wants this medication. I thought she said she didnot want this . Called and left message for pt to return call ([phone]) ER INSPECTOR documented in this encounter Plan of Treatment Not on file documented as of this encounter Visit Diagnoses Not on filedocumented in this encounter Discontinued Medications Medication Sig Discontinue Reason Start Date End Da te CHANTIX STARTING MONTH BOX 0.5 mg (11)- 1 mg (42) tablet 09/01/2019 11/02/2019 documented as of this encounter Care Teams Delinquency Counselor Relationship Specialty Start Date End Date Mendoza Parker MD PCP - General 02/18/17 06/12/20 documented as of this encounter
--- OUTSIDE RECORDS SUMMARY | 2024-11-19 04:51 | XMS_ITS | Encounter Summary ---
Author Organization [facility] Address [address] [facility] [facility] [address] [place] [address] Care Team Providers Care Longwall Headgate Operator Name Role Phone Mendoza Parker MD Primary Care Provider +1- [phone] Reason for Visit * Reason Comments Ear Problem Encounter Details Date Type Department Care Team (Late st Contact Info) Description 09/21/2019 1:50 PM CDT Office Visit [facility] [address] [place] [address] Mendoza Parker MD [address] [address] Left ear pain (Primary Dx) Social History Tobacco Use Types Packs/Day Years Used Date Smoking Tobacco: Every Day Cigarettes Smokeless Tobacco: Never Alcohol Use Standard Drinks/Week Comments No 0 (1 standard drink = 0.6 oz pur e alcohol) Comments No Sex and Gender Information Value Date Recorded Sex Assigned at Not on file 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:46 AM OUTSIDE MEDICAL SALES REPRESENTATIVE Gender Identity Not on file Sexual Orientation Not on file documented as of this encounter Last Filed Vital Signs Vital Sign Reading Time Taken Comments Blood Pressure 132/84 09/21/2019 1:45 PM CDT Pulse 74 09/21/2019 1:45 PM CDT Temperature 36 ??C (96.8 ??F) 09/21/2019 1:45 PM CDT Respiratory Rate 16 09/21/2019 1:45 PM CDT Oxygen Saturation 97% 09/21/2019 1:45 PM CDT Inhaled Oxygen Concentration - - Weight 81.2 kg (179 lb) 09/21/2019 1:45 PM CDT Height 149.9 cm (4' 11 ) 09/21/2019 1:45 PM CDT Body Mass Index 36.15 09/21/2019 1:45 PM CDT documented in this encounter Progress Notes * Mendoza Parker MD - 09/21/2019 1:50 PM CDT Subjective/Objective Patient ID: Shivani Betancur is a 54 y.o. female. Chief Complaint Ear Problem HPI Review of Systems Constitutional: Negative. HENT: Positive for ear pain. Respiratory: Negative. Cardiovascular: Negative. Gastrointestinal: Negative. Genitourinary: Negative. Musculoskeletal: Positive for arthralgias. Skin: Negative. Neurological: Negative. Psychiatric/Behavioral: Negative. Physical Exam Constitutional: Appearance: Normal appearance. She is obese. HENT: Head: Normocephalic and atraumatic. Ears: Comments: Yellow mucus-like material in canal in left ear pain on palpating the left ear Cardiovascular: Rate and Rhythm: Normal rate and regular rhythm. Pulses: Normal pulses. Heart sounds: Normal heart sounds. Abdominal: General: Abdomen is flat. Palpations: Abdomen is soft. Skin: General: Skin is warm and dry. Neurological: General: No focal deficit present. Mental Status: She is alert and oriented to person, place, and time. Psychiatric: Mood and Affect: Mood normal. Behavior: Behavior normal. Thought Content: Thought content normal. Judgment: Judgment normal. Assessment/Plan There are no diagnoses linked to this encounter. documented in this encounter Miscellaneous Notes * Assessment & Plan Note - Mendoza Parker MD - 02/12/2020 6:00 PM CDT Associated Problem(s): Left ear pain (Resolved 04/16/2020) Visit date September 21, 2019 patient evidence of otitis external combination drop of neomycin polymyxin dexamethasone applying today left ear 4 times a day. No other findings present on this exam for here documented in this encounter Plan of Treatment Not on file documented as of this encounter Visit Diagnoses Diagnosis Left ear pain- Primary Unspecified otalgia documented in this encounter Care Teams Longwall Headgate Operator Relationship Specialty Start Date End Date Mendoza Parker MD PCP - General 02/18/17 06/12/20 documented as of this encounter
--- OUTSIDE RECORDS SUMMARY | 2024-11-19 04:51 | XMS_ITS | Encounter Summary ---
Author Organization [facility] Address [address] [place] [address] Care Team Providers Care Drapery Cutter Name Role Phone Mendoza Parker MD Primary Care Provider +1- [phone] Encounter Details Date Type Department Care Team (Late st Contact Info) Description 04/15/2020 7:35 PM CDT Lab [address] [address] Tachycardia Social History Tobacco Use Types Packs/Day Years Used Date Smoking Tobacco: Every Day Cigarettes Smokeless Tobacco: Never Alcohol Use Standard Drinks/Week Comments No 0 (1 standard drink = 0.6 oz pur e alcohol) Comments No Sex and Gender Information Value Date Recorded Sex Assigned at Not on file 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:46 AM ICU STAFF NURSE Gender Identity Not on file Sexual Orientation Not on file documented as of this encounter Plan of Treatment Not on file documented as of this encounter Procedures Procedure Name Priority Date/Time Associated Diagnosis Comments T4, FREE Routine 04/15/2020 4:01 PM CDT Tachycardia documented in this encounter Results * T4, free (04/15/2020 4:01 PM CDT) Free T4 1.22 0.90 - 1.70 ng/dL SELVIN LÓPEZ Blood specimen (specimen) 04/15/2020 4:01 PM CDT 04/15/2020 7:35 PM CDT Mendoza Parker MD LAB BLOOD ORDERABLES Final Result SELVIN [address] Department [place] [address] documented in this encounter Visit Diagnoses Diagnosis Tachycardia Unspecified tachycardia documented in this encounter Care Teams Drapery Cutter Relationship Specialty Start Date End Date Mendoza Parker MD PCP - General 02/18/17 06/12/20 documented as of this encounter
--- OUTSIDE RECORDS SUMMARY | 2024-11-19 04:51 | XMS_ITS | Encounter Summary ---
Author Organization [facility] Address [address] [facility] [address] [place] [address] Care Team Providers Care Head Tennis Coach Name Role Phone Mendoza Parker MD Primary Care Provider +1- [phone] Encounter Details Date Type Department Care Team (Late st Contact Info) Description 01/01/2020 Orders Only [facility] [address] [facility] [address] [place] [address] Marcia Haider MD [address] [facility] [address] [place], [place] [id number] Social History Tobacco Use Types Packs/Day Years Used Date Smoking Tobacco: Every Day Cigarettes Smokeless Tobacco: Never Alcohol Use Standard Drinks/Week Comments No 0 (1 standard drink = 0.6 oz pur e alcohol) Comments No Sex and Gender Information Value Date Recorded Sex Assigned at Not on file 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:46 AM CLINICAL CODER Gender Identity Not on file Sexual Orientation Not on file documented as of this encounter Plan of Treatment Not on file documented as of this encounter Visit Diagnoses Not on filedocumented in this encounter Care Teams Head Tennis Coach Relationship Specialty Start Date End Date Mendoza Parker MD PCP - General 02/18/17 06/12/20 documented as of this encounter
--- OUTSIDE RECORDS SUMMARY | 2024-11-19 04:51 | XMS_ITS | Encounter Summary ---
Author Organization [facility] Healthcare Address [facility] [place] [address] Care Team Providers Care Process Controls Technician Name Role Phone Mendoza Parker MD Primary Care Provider +1- [phone] Reason for Visit * Reason Comments OP Infusion Prolia * Episode Based Medications (Routine) - Closed Specialty Diagnoses / Procedures Referred By Contac t Referred To Contact Diagnoses Age-related osteoporosis without current pathological fracture Procedures NE DENOSUMAB INJECTION Urbano Delacruz MD [address] [address] Phone: tel: fax: [facility] [address] [facility] [address] [place] [address] Phone: tel: Referral ID Status Reason Start Date Expiration Date Visits Re quested Visits Authorized [id number] Closed 12/07/2019 12/07/2020 4 4 Encounter Details Date Type Department Care Team (Late st Contact Info) Description 12/14/2019 2:00 PM ORACLE DATABASE CONSULTANT Infusion [facility] [address] [place] [address] [address] [place] [address] Age-related osteoporosis without current pathological fracture (Primary Dx) Social History Tobacco Use Types Packs/Day Years Used Date Smoking Tobacco: Every Day Cigarettes Smokeless Tobacco: Never Alcohol Use Standard Drinks/Week Comments No 0 (1 standard drink = 0.6 oz pur e alcohol) Comments No Sex and Gender Information Value Date Recorded Sex Assigned at Not on file 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:46 AM ORACLE DATABASE CONSULTANT Gender Identity Not on file Sexual Orientation Not on file documented as of this encounter Last Filed Vital Signs Vital Sign Reading Time Taken Comments Blood Pressure 167/102 12/14/2019 2:14 PM ORACLE DATABASE CONSULTANT Pulse 93 12/14/2019 2:12 PM ORACLE DATABASE CONSULTANT Temperature 36.9 ??C (98.4 ??F) 12/14/2019 2:12 PM CS T Respiratory Rate - - Oxygen Saturation 98% 12/14/2019 2:12 PM ORACLE DATABASE CONSULTANT Inhaled Oxygen Concentration - - Weight 76.2 kg (168 lb) 12/14/2019 2:12 PM ORACLE DATABASE CONSULTANT Height 149.9 cm (4' 11 ) 12/14/2019 2:12 PM ORACLE DATABASE CONSULTANT Body Mass Index 33.93 12/14/2019 2:12 PM ORACLE DATABASE CONSULTANT documented in this encounter Plan of Treatment Not on file documented as of this encounter Visit Diagnoses Diagnosis Age-related osteoporosis without current pathological fracture- Primary documented in this encounter Administered Medications Inactive Administered Medications - up to 3 most recent administrations Medication Order MAR Action Action Date Dose Rate Site denosumab (PROLIA) subcutaneous syringe 60 mg 60 mg, subcutaneous, Once, On Tue12/14/19 at 1419, For 1 dose, Calcium level should be greater than 8 mg/dl. Injection to be given in the upper arm, thigh or abdomen. Refrigerate. Allow to stand 15 to 30 mins prior to useIndications:Age-relate d osteoporosis without current pathological fracture Given 12/14/2019 2:18 PM ORACLE DATABASE CONSULTANT 60 mg Left Lower Abdomen documented in this encounter Historical Medications * This list may reflect changes made after this encounter. irbesartan (AVAPRO) 75 mg tablet Take 300 mg by mouth daily Take one tablet daily 11/27/2019 04/17/2020 added in this encounter Care Teams Process Controls Technician Relationship Specialty Start Date End Date Mendoza Parker MD PCP - General 02/18/17 06/12/20 documented as of this encounter
--- OUTSIDE RECORDS SUMMARY | 2024-11-19 04:51 | XMS_ITS | Encounter Summary ---
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 Hospital Encounter [facility] [address] [place] [address] Discharge Disposition: Discharge to home or self care Social History Tobacco Use Types Packs/Day Years Used Date Smoking Tobacco: Every Day Cigarettes Smokeless Tobacco: Never Alcohol Use Standard Drinks/Week Comments No 0 (1 standard drink = 0.6 oz pur e alcohol) Comments No Sex and Gender Information Value Date Recorded Sex Assigned at Not on file 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:46 AM 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 MANAGER Gender Identity Not on file Sexual Orientation Not on file documented as of this encounter Medications at Time of Discharge cyclobenzaprine (FLEXERIL) 10 mg tablet Take 1 tablet (10 mg total) by mouth 3 (three) times a day as needed 10/28/2017 NARCAN 4 mg/actuation spray,non-aerosol 10/02/2019 varenicline (CHANTIX STARTING MONTH BOX) 0.5 mg (11)- 1 mg (42) tablet TAKE DIRECTED ON PACKAGE 53 tablet 11/02/2019 0 acetaminophen-aspi rin-caffeine (EXCEDRIN MIGRAINE) 250-250-65 mg per [...] Diagnosis Comments BREAST IMAGING OUTSIDE REFERENCE Routine 01/15/2020 12:00 AM RETIREMENT VILLAGE MANAGER documented in this encounter Results * Breast Imaging Outside Reference (01/15/2020 12:00 AM RETIREMENT VILLAGE MANAGER) Impressions [facility] - 08/06/2021 11:06 AM CDT These images are for Reference purposes only and have not been reviewed by [facility] Radiology. ??There will be no report generated by a [facility] Radiologist. Narrative [facility] - 08/06/2021 11:06 AM CDT EXAMINATION: ??Images For Reference Purposes Only us Nancy Gonzalez DEWAXER IMG MAMMO PROCEDURES Final R esult [facility] documented in this encounter Visit Diagnoses Not on filedocumented in this encounter Care Teams [employer] Law Clerk Relationship Specialty Start Date End Date Mendoza Parker MD PCP - General 02/18/17 06/12/20 documented as of this encounter
--- OUTSIDE RECORDS SUMMARY | 2024-11-19 04:51 | XMS_ITS | Encounter Summary ---
Author Organization [facility] Medical Group Address [address] [facility] [address] [place] [address] Care Team Providers Care Clod Puller Name Role Phone Mendoza Parker MD Primary Care Provider +1- [phone] Reason for Visit * Reason Onset Date Comments drug interaction 04/15/2020 Encounter Details Date Type Department Care Team (Late st Contact Info) Description 04/15/2020 Telephone [facility] [address] [place] [id number] Mendoza Parker MD [address] [address] drug interaction Social History Tobacco Use Types Packs/Day Years Used Date Smoking Tobacco: Every Day Cigarettes Smokeless Tobacco: Never Alcohol Use Standard Drinks/Week Comments No 0 (1 standard drink = 0.6 oz pur e alcohol) Comments No Sex and Gender Information Value Date Recorded Sex Assigned at Not on file 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 Gender Identity Not on file Sexual Orientation Not on file documented as of this encounter Ordered Prescriptions Prescription Sig Dispense Quantity Refills Last Filled Start Date End Date nitrofurantoin monohydrate (MACROBID) 100 mg capsule Take 1 capsule (100 mg total) by mouth 2 (two) times a day for 5 days 10 capsule 04/15/2020 0 documented in this encounter Miscellaneous Notes * Addendum Note - Danny Santiago RN - 04/15/2020 4:45 PM CDTAddended by: DANNY SANTIAGO on: 04/15/2020 04:45 PM Modules accepted: Orders * Telephone Encounter - Danny Santiago RN - 04/15/2020 4:43 PM CDT Medication sent pr Dr. MOHAN orders. nitrofurantoin monohydrate (MACROBID) 100 mg capsule ??Take 1 capsule (100 mg total) by mouth 2 (two) times a day for 5 days, Starting Tue04/15/2020, Until 04/20/2020, Normal * Telephone Encounter - Mendoza Parker MD - 04/15/2020 4:40 PM CDT Cancel the Bactrim and replace with Macrobid. * Telephone Encounter - Mary Carmen - 04/15/2020 4:13 PM CDT Olivier reporting drug interaction, ok to fill? Bactrim with Irbesartan -causes increase in Potassium CBN: [phone] Ok to fill? * Telephone Encounter - Mary Carmen - 04/15/2020 1:55 PM CDT appt given documented in this encounter Plan of Treatment Not on file documented as of this encounter Visit Diagnoses Not on filedocumented in this encounter Discontinued Medications Medication Sig Discontinue Reason Start Date End Da te sulfamethoxazole-trimeth oprim (BACTRIM DS) 800-160 mg per tablet Take 1 tablet by mouth 2 (two) times a day for 7 days Alternate therapy 04/15/2020 04/15/2020 documented as of this encounter Care Teams Clod Puller Relationship Specialty Start Date End Date Mendoza Parker MD PCP - General 02/18/17 06/12/20 documented as of this encounter
--- OUTSIDE RECORDS SUMMARY | 2024-11-19 04:51 | XMS_ITS | Encounter Summary ---
Author Organization [facility] Address [address] [place] [address] Phone Care Team Providers Care Washer Engineer Name Role Phone Mendoza Parker MD Primary Care Provider +1- [phone] Encounter Details Date Type Department Care Team (Late st Contact Info) Description 11/28/2019 Orders Only [address] Medical Office Building [address] [place] [address] ProviderKip MD [address] [place], [place] [id number] Social History Tobacco Use Types Packs/Day Years Used Date Smoking Tobacco: Every Day Cigarettes Smokeless Tobacco: Never Alcohol Use Standard Drinks/Week Comments No 0 (1 standard drink = 0.6 oz pur e alcohol) Comments No Sex and Gender Information Value Date Recorded Sex Assigned at Not on file 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
--- OUTSIDE RECORDS SUMMARY | 2024-11-19 04:51 | XMS_ITS | Encounter Summary ---
Author Organization [facility] Healthcare Address [address] [place] [address] Care Team Providers Care Health Actuary Name Role Phone Mendoza Parker MD Primary Care Provider +1- [phone] Encounter Details Date Type Department Care Team (Late st Contact Info) Description 12/13/2019 Orders Only [facility] [address] [facility] [address] [place] [id number] Kingsley Oscar RN Social History Tobacco Use Types Packs/Day Years Used Date Smoking Tobacco: Every Day Cigarettes Smokeless Tobacco: Never Alcohol Use Standard Drinks/Week Comments No 0 (1 standard drink = 0.6 oz pur e alcohol) Comments No Sex and Gender Information Value Date Recorded Sex Assigned at Not on file 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
--- OUTSIDE RECORDS SUMMARY | 2024-11-19 04:51 | XMS_ITS | Encounter Summary ---
Author Organization [facility] [place] [facility] Address [address] [place] [address] Phone Care Team Providers Care Associate Professor Of Geography Name Role Phone Mendoza Parker MD Primary Care Provider +1- [phone] Encounter Details Date Type Department Care Team (Late st Contact Info) Description 10/29/[address] Medical Office Building [address] [place] [address] Yony Bae CMA Social History Tobacco Use Types Packs/Day Years Used Date Smoking Tobacco: Every Day Cigarettes Smokeless Tobacco: Never Alcohol Use Standard Drinks/Week Comments No 0 (1 standard drink = 0.6 oz pur e alcohol) Comments No Sex and Gender Information Value Date Recorded Sex Assigned at Not on file 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:46 AM LOOP PULLER Gender Identity Not on file Sexual Orientation Not on file documented as of this encounter Miscellaneous Notes * Telephone Encounter - Yony Bae CMA - 10/29/2019 9:34 AM CST error PULLER documented in this encounter Plan of Treatment Not on file documented as of this encounter Visit Diagnoses Not on filedocumented in this encounter Care Teams Associate Professor Of Geography Relationship Specialty Start Date End Date Mendoza Parker MD PCP - General 02/18/17 06/12/20 documented as of this encounter
--- OUTSIDE RECORDS SUMMARY | 2024-11-19 04:51 | XMS_ITS | Encounter Summary ---
Author Organization [facility] Address [address] [place] [address] Phone Care Team Providers Care Clinical Nurse Manager Name Role Phone Mendoza Parker MD Primary Care Provider +1- [phone] Encounter Details Date Type Department Care Team (Late st Contact Info) Description 10/29/[address] Medical Office Building [address] [place] [address] Urbano Delacruz MD [address] [id number] Social History Tobacco Use Types Packs/Day Years [...] encounter Miscellaneous Notes * Addendum Note - Tashi Bae CMA - 04/17/2020 9:49 AM CDTAddended by: TASHI BAE on: 04/17/2020 09:49 AM Modules accepted: Orders * Telephone Encounter - Tashi Bae CMA - 04/17/2020 9:39 AM CDT Talked to pt and she is going to have her vit D faxed over she had 2 weeks ago. She stated that it was low but didn't have the number and her pcp has her on a vitd Regiment as well.I sent bmp and vitD per Dr Delacruz to get done 30 days before her reclast. * Telephone Encounter - Tashi Bae CMA - 10/29/2019 9:34 AM CST ??Please schedule prolia. 12/07 will need BMP. In May of 2020 please transition to ??IV relcast. ?? Please make a reminder to ensure patient recieves it. Will need a BMP and D prior. Ensure D>30, GFR >35 Yalla Left message to call office and sent bmp for the prolia appointment. L INSPECTOR documented in this encounter Plan of Treatment Scheduled Orders Name Type Priority Associated Diagnoses Orde r Schedule Basic metabolic panel Lab Routine Age-related osteoporosis without current pathological fracture Expected: 04/17/2020, Expires: 04/17/2021 Vitamin D 25 hydroxy Lab Routine Age-related osteoporosis without current pathological fracture Expected: 04/17/2020, Expires: 04/17/2021 documented as of this encounter Visit Diagnoses Diagnosis Age-related osteoporosis without current pathological fracture- Primary documented in this encounter Care Teams Clinical Nurse Manager Relationship Specialty Start Date End Date Mendoza Parker MD PCP - General 02/18/17 06/12/20 documented as of this encounter
--- OUTSIDE RECORDS SUMMARY | 2024-11-19 04:51 | XMS_ITS | Encounter Summary ---
Author Organization [facility] Healthcare Address [facility] [place] [address] Care Team Providers Care Latex Caster Name Role Phone Mendoza Parker MD Primary Care Provider +1- [phone] Encounter Details Date Type Department Care Team (Latest Contact Info) Description 02/05/2020 12:05 AM CDT - 02/05/2020 11:59 PM CDT Hospital Encounter [facility] Radiology [facility] [address] [place] [id number] Discharge Disposition: Discharge to home or self care Social History Tobacco Use Types Packs/Day Years Used Date Smoking Tobacco: Every Day Cigarettes Smokeless Tobacco: Never Alcohol Use Standard Drinks/Week Comments No 0 (1 standard drink = 0.6 oz pur e alcohol) Comments No Sex and Gender Information Value Date Recorded Sex Assigned at Not on file 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:46 AM ALMOND CUTTING MACHINE TENDER Gender Identity Not on file [...] Diagnosis Comments BREAST IMAGING OUTSIDE REFERENCE Routine 02/05/2020 12:05 AM CDT documented in this encounter Results * Breast Imaging Outside Reference (02/05/2020 12:05 AM CDT) Impressions [facility] - 08/06/2021 11:06 AM CDT These images are for Reference purposes only and have not been reviewed by [facility] Radiology. ??There will be no report generated by a [facility] Radiologist. Narrative RAD_MAMMO[facility] - 08/06/2021 11:06 AM CDT EXAMINATION: ??Images For Reference Purposes Only us Nancy Gonzalez AREA CAPTAIN IMG MAMMO PROCEDURES Final R esult [facility] documented in this encounter Visit Diagnoses Not on filedocumented in this encounter Care Teams Latex Caster Relationship Specialty Start Date End Date Mendoza Parker MD PCP - General 02/18/17 06/12/20 documented as of this encounter
--- OUTSIDE RECORDS SUMMARY | 2024-11-19 04:51 | XMS_ITS | Encounter Summary ---
Author Organization [facility] Medical Group Address [address] [facility] [address] [place] [address] Care Team Providers Care Tank Furnace Operator Name Role Phone Mendoza Parker MD Primary Care Provider +1- [phone] Reason for Visit * Reason Onset Date Comments heart monitor report results 05/16/2020 Encounter Details Date Type Department Care Team (Late st Contact Info) Description 05/16/2020 Telephone [facility] [address] [place] [phone] Mendoza Parker MD [address] [address] heart monitor report results Social History Tobacco Use Types Packs/Day Years Used Date Smoking Tobacco: Every Day Cigarettes Smokeless Tobacco: Never Alcohol Use Standard Drinks/Week Comments No 0 (1 standard drink = 0.6 oz pur e alcohol) Comments No Sex and Gender Information Value Date Recorded Sex Assigned at Not on file 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 Pt voiced understanding and had no further questions/concerns. * Telephone Encounter - Mendoza Parker MD - 05/16/2020 4:02 PM CDT Notify patient that her Holter monitor was completely normal. * Telephone Encounter - Mary Carmen - 05/16/2020 3:16 PM CDT Asking for results of recent heart monitor, pt wore from 04-23 to 04-30-2020, mailed in 05-01-[address] Dakota Johnson's office (tel: [phone]) states finished report will be faxed to our office Report received, Copy on [employer] desk, original placed in Scanning pile to be scanned. CBN: [phone] documented in this encounter Plan of Treatment Not on file documented as of this encounter Visit Diagnoses Not on filedocumented in this encounter Care Teams Tank Furnace Operator Relationship Specialty Start Date End Date Mendoza Parker MD PCP - General 02/18/17 06/12/20 documented as of this encounter
--- OUTSIDE RECORDS SUMMARY | 2024-11-19 04:51 | XMS_ITS | Encounter Summary ---
Author Organization [facility] Medical Group Address [address] [facility] [address] [place] [address] Care Team Providers Care Clinical Laboratory Service Teacher Name Role Phone Mendoza Jalloh MD Primary Care Provider +1- [phone] Reason for Visit * Reason Onset Date Comments progress report 09/03/2019 Encounter Details Date Type Department Care Team (Late st Contact Info) Description 09/03/2019 Telephone [facility] [address] [place] [phone] Mendoza Jalloh MD [address] [address] progress report Social History Tobacco Use Types Packs/Day Years Used Date Smoking Tobacco: Every Day Cigarettes Smokeless Tobacco: Never Alcohol Use Standard Drinks/Week Comments No 0 (1 standard drink = 0.6 oz pur e alcohol) Comments No Sex and Gender Information Value Date Recorded Sex Assigned at Not on file 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:46 AM SPEECH LANG PATH Gender Identity Not on file Sexual Orientation Not on file documented as of this encounter Miscellaneous Notes * Telephone Encounter - Dorota Coats RN - 09/07/2019 3:15 PM CDT Called and left a message for pt that dr jalloh is very happy about the progress * Telephone Encounter - Mary Carmen - 09/07/2019 1:12 PM CDT Took [facility]'s advice and has been doing a little walking. bp today was 127/69 P 80. * Telephone Encounter - Dorota Coats RN - 09/04/2019 2:53 PM CDT Spoke fact to face with dr jalloh Pt to take her blood pressure when she feels bad and call Tuesday with the results Called pt and she verbalized understanding and will call us Tuesday with the blood pressure readings * Telephone Encounter - Dorota Coats RN - 09/04/2019 11:25 AM CDT Pt called back and states that she can not take more cymbalta due to the serotonin syndrome Pt did take 40 mg of bystolic the day she went to the er Pt is trying to quite smoking with chantix Pt is trying to drink less Pt would like to get back to walking but she feels bad due to the elevated blood pressure Complaints of headache and fatigue TOWB:please advise what she can do for anxiety states that ativan helped but informed her that it was a controlled substance and was addictive Pt states that she does not need more problems with that norvasc 2.5mg daily indur 60mg daily bystolic 20mg daily * Telephone Encounter - Dorota Coats RN - 09/03/2019 3:21 PM CDT Left a message for pt to call us back Dr Jalloh states that he would like he to increase her cymbalta up to 60 mg daily to help with theanxiety symptoms * Telephone Encounter - Mary Carmen - 09/03/2019 1:45 PM CDT Was in [facility] for elevated BP, states she thinks her BP was 191/111. Pt was given Ativan and told they think she is just anxious about her blood pressure. No other bp meds were given or meds adjusted-was told to only take bp when she's feeling good as they thinks she just worries about her bp -asking [facility] if he wanted to given her Ativan? [facility] policy explained. -pt asking if [facility] wants to see her or if he just has any orders for her? CBN: [phone] documented in this encounter Plan of Treatment Not on file documented as of this encounter Visit Diagnoses Not on filedocumented in this encounter Discontinued Medications Medication Sig Discontinue Reason Start Date End Da te amLODIPine (NORVASC) 2.5 mg tablet Take 1 tablet (2.5 mg total) by mouth daily Other 06/14/2019 09/04/2019 documented as of this encounter Care Teams Clinical Laboratory Service Teacher Relationship Specialty Start Date End Date Mendoza Jalloh MD PCP - General 02/18/17 06/12/20 documented as of this encounter
--- OUTSIDE RECORDS SUMMARY | 2024-11-19 04:51 | XMS_ITS | Encounter Summary ---
Author Organization [facility] Medical Group Address [address] [address] Care Team Providers Care Skid Road Worker Name Role Phone Mendoza Parker MD Primary Care Provider +1- [phone] Encounter Details Date Type Department Care Team (Late st Contact Info) Description 04/15/2020 4:50 PM CDT Lab [facility] [address] [place] [address] Essential hypertension Social History Tobacco Use Types Packs/Day Years Used Date Smoking Tobacco: Every Day Cigarettes Smokeless Tobacco: Never Alcohol Use Standard Drinks/Week Comments No 0 (1 standard drink = 0.6 oz pur e alcohol) Comments No Sex and Gender Information Value Date Recorded Sex Assigned at Not on file 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:46 AM PHYSICAL 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
--- OUTSIDE RECORDS SUMMARY | 2024-11-19 04:51 | XMS_ITS | Encounter Summary ---
Author Organization [facility] Address [address] [place] [address] Phone Care Team Providers Care Cut Filer Name Role Phone Mendoza Parker MD Primary Care Provider +1- [phone] Encounter Details Date Type Department Care Team (Late st Contact Info) Description 09/10/2019 Orders Only [facility] [address] [place] [address] Mendoza Parker MD [address] [address] Social History Tobacco Use Types Packs/Day Years Used Date Smoking Tobacco: Every Day Cigarettes Smokeless Tobacco: Never Alcohol Use Standard Drinks/Week Comments No 0 (1 standard drink = 0.6 oz pur e alcohol) Comments No Sex and Gender Information Value Date Recorded Sex Assigned at Not on file 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:46 AM 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 Gender Identity Not on file Sexual Orientation Not on file documented as of this encounter Plan of Treatment Not on file documented as of this encounter Procedures Procedure Name Priority Date/Time Associated Diagnosis Comments SCAN - RADIOLOGY/IMAGING 09/10/2019 9:39 AM CDT documented in this encounter Results * SCAN - RADIOLOGY/IMAGING (09/10/2019 9:39 AM CDT) Anatomical Region Laterality Modality Other us Mendoza Parker MD Final Resu lt documented in this encounter Visit Diagnoses Not on filedocumented in this encounter Care Teams Cut Filer Relationship Specialty Start Date End Date Mendoza Parker MD PCP - General 02/18/17 06/12/20 documented as of this encounter
--- OUTSIDE RECORDS SUMMARY | 2024-11-19 04:51 | XMS_ITS | Encounter Summary ---
Author Organization [facility] Healthcare Address [address] [place] [id number] Care Team Providers Care Supervisor Cutting And Sewing Room Name Role Phone Mendoza Parker MD Primary Care Provider [phone]- [phone] Encounter Details Date Type Department Care Team (Late st Contact Info) Description 10/02/2019 2:15 PM NUTRITION SERVICES MANAGER Lab [address] [address] Bijal Langston MD [address] [place] [id number] Discharge Disposition: Discharge to home or self care Social History Tobacco Use Types Packs/Day Years Used Date Smoking Tobacco: Every Day Cigarettes Smokeless Tobacco: Never Alcohol Use Standard Drinks/Week Comments No 0 (1 standard drink = 0.6 oz pur e alcohol) Comments No Sex and Gender Information Value Date Recorded Sex Assigned at Not on file 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:46 AM NUTRITION SERVICES MANAGER Gender Identity Not on file Sexual Orientation Not on file documented as of this encounter Discharge Disposition Disposition Code Departure Means Destination Discharge to home or self care documented in this encounter Plan of Treatment Not on file documented as of this encounter Procedures Procedure Name Priority Date/Time Associated Diagnosis Comments PRAVEENA QUALITATIVE WITH REFLEX TO PRAVEENA QUANTITATIVE Routine 10/02/2019 2:16 PM NUTRITION SERVICES MANAGER EGFR Routine 10/02/2019 2:16 PM NUTRITION SERVICES MANAGER DIFFERENTIAL AUTO Routine 10/02/2019 2:1 6 PM NUTRITION SERVICES MANAGER CBC WITH AUTO DIFFERENTIAL Routine 10/02/2019 2:16 PM NUTRITION SERVICES MANAGER ERYTHROCYTE SEDIMENTATION RATE Routine 10/02/2019 2:16 PM NUTRITION SERVICES MANAGER RHEUMATOID FACTOR Routine 10/02/2019 2:1 6 PM NUTRITION SERVICES MANAGER CRP (ACUTE PHASE) Routine 10/02/2019 2:1 6 PM NUTRITION SERVICES MANAGER TSH Routine 10/02/2019 2:16 PM NUTRITION SERVICES MANAGER T4, FREE Routine 10/02/2019 2:16 PM NUTRITION SERVICES MANAGER COMPREHENSIVE METABOLIC PANEL Routine 10/02/2019 2:16 PM NUTRITION SERVICES MANAGER documented in this encounter Results * eGFR (10/02/2019 2:16 PM NUTRITION SERVICES MANAGER) eGFR 103 mL/min/1.7 3 m2 [facility] ([place]) Comment: Interpretive Data Reference Interval Normal ?>/= 90 mL/min/1.73m2 Mildly decreased* ? 60 - 89 mL/min/1.73m2 Mildly to moderately decreased ?45 - 59 mL/min/1.73m2 Moderately to severely decreased ??30 - 44 mL/min/1.73m2 Severely decreased ?15 - 29 mL/min/1.73m2 Kidney Failure ?< 15 ??mL/min/1.73m2 *Relative to young adult level If -Central [place] multiply value by 1.16. Estimated glomerular filtration [...] was last reviewed 2016. Blood specimen (specimen) 10/02/2019 2:16 PM NUTRITION SERVICES MANAGER 10/02/2019 2:23 PM NUTRITION SERVICES MANAGER us Bijal Langston MD LAB BLOOD ORDERABLES Final Result [facility] ([place]) 1 [facility] Department [place] [address] * Differential, auto (10/02/2019 2:16 PM NUTRITION SERVICES MANAGER) Neutrophil abs 5.2 1.7 - 6.5 K/cumm [facility] ([place]) Imm gran abs 0.0 0.0 - 0.1 K/cumm [facility] ([place]) Lymphocyte abs 2.7 0.8 - 3.3 K/cumm [facility] ([place]) Monocyte abs 0.5 0.2 - 0.8 K/cumm [facility] ([place]) Eosinophil abs 0.1 0.0 - 0.5 K/cumm [facility] ([place]) Basophil abs 0.0 0.0 - 0.1 K/cumm [facility] ([place]) Neutrophil pct 60.5 % [facility] ([place]) Comment: Interpretive Data Percent cell count reference ranges are not reported, since discordance with absolute values may lead to misinterpretation of CBC data. Current Interpretive Data was last revised on 2018. Imm gran pct 0.2 % [facility] ([place]) Comment: Interpretive Data Percent cell count reference ranges are not reported, since discordance with absolute values may lead to misinterpretation of CBC data. Current Interpretive Data was last revised on 2018. Lymphocyte pct 31.7 % [facility] ([place]) Comment: Interpretive Data Percent cell count reference ranges are not reported, since discordance with absolute values may lead to misinterpretation of CBC data. Current Interpretive Data was last revised on 2018. Monocyte pct 5.9 % [facility] ([place]) Comment: Interpretive Data Percent cell count reference ranges are not reported, since discordance with absolute values may lead to misinterpretation of CBC data. Current Interpretive Data was last revised on 2018. Eosinophil pct 1.2 % [facility] ([place]) Comment: Interpretive [...] last revised on 2018. Blood specimen (specimen) 10/02/2019 2:16 PM NUTRITION SERVICES MANAGER 10/02/2019 2:23 PM NUTRITION SERVICES MANAGER us Bijal Langston MD LAB BLOOD ORDERABLES Final Result [facility] ([place]) 1 [facility] Department [place] [address] * Comprehensive metabolic panel (10/02/2019 2:16 PM NUTRITION SERVICES MANAGER) Sodium 141 135 - 145 mmol/L [facility] ([place]) Potassium, pl 3.9 3.3 - 4.9 mmol/L [facility] ([place]) Chloride 105 97 - 110 mmol/L [facility] ([place]) CO2 22 22 - 32 mmol/L [facility] ([place]) Anion gap 14 2 - 15 mmol/L [facility] ([place]) BUN 11 8 - 25 mg/dL [facility] ([place]) Creatinine 0.60 0.60 - 1.10 mg/dL [facility] ([place]) Glucose 112 70 - 199 mg/dL [facility] ([place]) [...] - 8.5 g/dL [facility] ([place]) Albumin 4.5 3.5 - 5.0 g/dL [facility] ([place]) Alk phos 112 40 - 130 Units/L [facility] ([place]) ALT 15 7 - 45 Units/L [facility] ([place]) AST 19 10 - 45 Units/L [facility] ([place]) Blood specimen (specimen) 10/02/2019 2:16 PM NUTRITION SERVICES MANAGER 10/02/2019 2:23 PM NUTRITION SERVICES MANAGER Bijal Langston MD LAB BLOOD ORDERABLES Final Result Performing Organization Address [facility] Co de Phone Number [facility] ([place]) 1 [facility] [place] [address] * T4, free (10/02/2019 2:16 PM NUTRITION SERVICES MANAGER) Free T4 1.34 0.90 - 1.70 ng/dL [facility] ([place]) Blood specimen (specimen) 10/02/2019 2:16 PM NUTRITION SERVICES MANAGER 10/02/2019 2:23 PM NUTRITION SERVICES MANAGER Bijal Langston MD LAB BLOOD ORDERABLES Final Result Performing Organization Address [facility] de Phone Number [facility] ([place]) 1 [facility] [place] [address] * TSH (10/02/2019 2:16 PM NUTRITION SERVICES MANAGER) Thyroid Stimulating Hormone 0.67 0.30 - 4.20 mcIUnit/mL [facility] ([place]) Blood specimen (specimen) 10/02/2019 2:16 PM NUTRITION SERVICES MANAGER 10/02/2019 2:23 PM NUTRITION SERVICES MANAGER Bijal Langston MD LAB BLOOD ORDERABLES Final Result Performing Organization Address City/[facility] Co de Phone Number [facility] ([place]) 1 [facility] [place] [address] * PRAVEENA qualitative with reflex to PRAVEENA Quantitative (10/02/2019 2:16 PM NUTRITION SERVICES MANAGER) PRAVEENA Negative Negative [facility] ([place]) Comment: Interpretive Data Normal range for Praveena Qualitative Antibody = Negative. 1. ??PRAVEENA titers are performed on all positive qualitative results. 2. ??A significantly positive PRAVEENA result is defined as a positive nuclear fluorescence at a titer of 1:80 or greater. 3. ??15% of normal people above age 65 have significantly positive PRAVEENA results. ??5% or less of normal people age 65 or under have significantly positive PRAVEENA results. Current interpretive data was last revised on 04. Testing performed by: [address], [address] Blood specimen (specimen) 10/02/2019 2:16 PM NUTRITION SERVICES MANAGER 10/03/2019 7:29 AM NUTRITION SERVICES MANAGER Bijal Langston MD LAB BLOOD ORDERABLES Final Result Performing Organization Address [facility] de Phone Number [facility] ([place]) 1 [place] [address] * Rheumatoid factor (10/02/2019 2:16 PM NUTRITION SERVICES MANAGER) Rheumatoid factor, quant <10 <=15 IUnits/mL [facility] ([place]) Comment:Testing performed by : [facility], [address] [place] [address]., [id number] Blood specimen (specimen) 10/02/2019 2:16 PM NUTRITION SERVICES MANAGER 10/02/2019 7:53 PM NUTRITION SERVICES MANAGER Bijal Langston MD LAB BLOOD ORDERABLES Final Result Performing Organization Address [facility] Co de Phone Number [facility] ([place]) 1 [facility] [place] [address] * Erythrocyte sedimentation rate (10/02/2019 2:16 PM NUTRITION SERVICES MANAGER) [facility] Erythrocyte sedimentation rate 17 1 - 30 mm/hr [facility] ([place]) Blood specimen (specimen) 10/02/2019 2:16 PM NUTRITION SERVICES MANAGER 10/02/2019 2:23 PM NUTRITION SERVICES MANAGER Bijal Langston MD LAB BLOOD ORDERABLES Final Result [facility] ([place]) 1 [facility] [place] [address] * CRP (acute phase) (10/02/2019 2:16 PM NUTRITION SERVICES MANAGER) [facility] CRP 4.5 <=10.0 mg/L [facility] ([place]) Blood specimen (specimen) 10/02/2019 2:16 PM NUTRITION SERVICES MANAGER 10/02/2019 2:23 PM NUTRITION SERVICES MANAGER Bijal Langston MD LAB BLOOD ORDERABLES Final Result [facility] ([place]) 1 [facility] [place] [address] * CBC with auto differential (10/02/2019 2:16 PM NUTRITION SERVICES MANAGER) [facility] WBC 8.6 3.8 - 9.9 K/cumm [facility] ([place]) Hgb 13.7 11.9 - 15.5 g/dL [facility] ([place]) Hct 41.1 35.6 - 45.5 % [facility] ([place]) Plt 305 150 - 400 K/cumm [facility] ([place]) MPV 9.8 9.1 - 12.3 fL [facility] ([place]) RBC 4.45 3.90 - 5.20 M/cumm [facility] ([place]) MCV 92.4 81.3 - 96.4 fL [facility] ([place]) MCH 30.8 27.1 - 33.3 pg [facility] ([place]) MCHC 33.3 32.3 - 35.7 g/dL [facility] ([place]) RDW CV 12.3 11.1 - 14.9 % [facility] ([place]) RDW SD 42.0 35.7 - 48.1 fL [facility] ([place]) NRBC abs 0.00 0.00 - 0.01 K/cumm [facility] ([place]) Blood specimen (specimen) 10/02/2019 2:16 PM NUTRITION SERVICES MANAGER 10/02/2019 2:23 PM NUTRITION SERVICES MANAGER Bijal Langston MD LAB BLOOD ORDERABLES Final Result [facility] ([place]) 1 [facility] Department [place] [address] documented in this encounter Visit Diagnoses Not on filedocumented in this encounter Care Teams Supervisor Cutting And Sewing Room Relationship Specialty Start Date End Date Mendoza Parker MD PCP - General 02/18/17 06/12/20 documented as of this encounter
--- OUTSIDE RECORDS SUMMARY | 2024-11-19 04:51 | XMS_ITS | Encounter Summary ---
Author Organization [facility] Address [address] [place] [address] Phone Care Team Providers Care Finance Advisor Name Role Phone Mendoza Parker MD Primary Care Provider [phone]- [phone] Encounter Details Date Type Department Care Team (Late st Contact Info) Description 10/22/2019 Orders Only 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 Medication Sig Dispense Quantity Refills Last Filled Start D ate End Date NARCAN 4 mg/actuation spray,non-aerosol 10/02/2019 amLODIPine (NORVASC) 2.5 mg tablet 09/13/2019 04/17/2020 QUEtiapine (SEROquel) 50 mg tablet 10/10/2019 04/17/2020 CHANTIX STARTING MONTH BOX 0.5 mg (11)- 1 mg (42) tablet 09/01/2019 11/02/2019 added in this encounter Care Teams Finance Advisor Relationship Specialty Start Date End Date Mendoza Parker MD PCP - General 02/18/17 06/12/20 documented as of this encounter
--- OUTSIDE RECORDS SUMMARY | 2024-11-19 04:51 | XMS_ITS | Encounter Summary ---
Author Organization [facility] Address [address] [place] [address] Care Team Providers Care Eyeletter Name Role Phone Mendoza Parker MD Primary Care Provider [phone]- [phone] Reason for Referral * Injectables (Routine) - Closed Specialty Diagnoses / Procedures Referred By Contac t Referred To Contact Diagnoses Arthritis of carpometacarpal (CMC) joint of left thumb Procedures Small Joint (Foot, Fingers, Toes) Injection: L thumb CMC Phoebe Trejo PA Phone: tel: fax: [facility] Referral ID Status Reason Start Date Expiration Date Visits Re quested Visits Authorized [id number] Closed 08/31/2019 03/11/2021 1 1 Reason for Visit * Reason Comments Pain Encounter Details Date Type Department Care Team (Latest Contact Info) Description 08/31/2019 11:15 AM CDT Office Visit [facility] Orthopedics and Sports Medicine [address] [place] [id number] Phoebe Trejo PA [address] [place] [address] [address] [place] [address] Arthritis of carpometacarpal (CMC) joint of left thumb (Primary Dx); Carpal tunnel syndrome of left wrist; De Quervain's disease (radial styloid tenosynovitis) Social History Tobacco Use Types Packs/Day Years Used Date Smoking Tobacco: Every Day Cigarettes Smokeless Tobacco: Never Alcohol Use Standard Drinks/Week Comments No 0 (1 standard drink = 0.6 oz pur e alcohol) Comments No Sex and Gender Information Value Date Recorded Sex Assigned at Not on file 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:46 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 Gender Identity Not on file Sexual Orientation Not on file documented as of this encounter Last Filed Vital Signs Vital Sign Reading Time Taken Comments Blood Pressure 154/98 08/31/2019 11:35 AM CDT Pulse 71 08/31/2019 11:35 AM CDT Temperature - - Respiratory Rate - - Oxygen Saturation - - Inhaled Oxygen Concentration - - Weight 77.7 kg (171 lb 3.2 oz) 08/31/2019 11:35 AM CDT Height 149.9 cm (4' 11 ) 08/31/2019 11:35 AM CDT Body Mass Index 34.58 08/31/2019 11:35 AM CDT documented in this encounter Progress Notes * Phoebe Trejo PA - 08/31/2019 11:15 AM CDTAssociated Order(s): Small Joint (Foot, Fingers, Toes) Injection: L thumb CMC Post-Procedure Diagnose(s): Arthritis of carpometacarpal (CMC) joint of left thumb Images from the original note were not included. NEW COMPLAINT VISIT Subjective CHIEF COMPLAINT She had concerns including Pain of the Left Hand. HISTORY OF PRESENT ILLNESS Patient here with complaints of worsening left hand pain. Her symptoms have been present over the last 2 years, but worsening as of the last few weeks. Symptoms are sharp and burning. There severe and limiting her activities. Symptoms are also continuous. She cannot identify any aggravating or relieving factors. She notes weakness with pinching and gripping. She also reports increased swelling along the radial aspect of the wrist. She takes chronic hydrocodone. She saw Jet ferrera PA-C in February; she had x-rays done then, which revealed CMC arthritis. She has been using a thumb spica splint for her symptoms, however she quit using this, stating it was not helping Pain Assessment Pain Assessment: 0-10 Pain Score: 8 PAST MEDCIAL HISTORY She has a past medical history of Disorder of thyroid, Fibrositis, Gastroesophageal reflux disease,OTHER MEDICAL (1988), OTHER MEDICAL (1991), OTHER MEDICAL (1982), OTHER MEDICAL, OTHER MEDICAL, OTHER MEDICAL, OTHER MEDICAL, OTHER MEDICAL, OTHER MEDICAL, OTHER MEDICAL, OTHER MEDICAL, OTHER MEDICAL, Hyperlipidemia, Hypertension, Hypertension, PONV (postoperative nausea and vomiting), and Sleep apnea. She also has no past medical history of Malignant hyperthermia. PAST SURGICAL HISTORY She has a past surgical history that [...] history; Other surgical history; and Hardware Removal. MEDICATIONS She has a current medication list which includes the following prescription(s): lvmzfloyfrjqr-kobltsc-wmbwfwoq, atorvastatin, azelastine, calcium carbonate- vitamin d3, cyclobenzaprine, duloxetine dr,ecotrin low strength, estrace, hydrocodone-acetaminophen, hyoscyamine, isosorbide mononitrate er, lubiprostone, nebivolol, riqusuvo-vsrvrngzn-gizetvuppvysr, omeprazole, pen needle, diabetic, lyrica, zolpidem, and bystolic. ALLERGIES She is allergic to ciprofloxacin; metronidazole; acetaminophen-codeine; codeine; and lisinopril. SOCIAL HISTORY She reports that she has been smoking. She has been smoking about 0.25 packs per day. She has neverused smokeless tobacco. She reports that she does not drink alcohol or use drugs. FAMILY HISTORY Her family history includes Asthma in her daughter; Cancer in an other family member; Congenital heart disease in her father; Coronary artery disease in her mother's sister and another family member;Diabetes in an other family member; Diabetes type II in an other family member; Stroke in an other family member. REVIEW OF SYSTEMS Review of Systems Constitutional: Negative for chills, fatigue and fever. Eyes: Negative for pain and visual disturbance. Respiratory: Negative for chest tightness and shortness of breath. Cardiovascular: Positive for chest pain and palpitations. Negative for leg swelling. Gastrointestinal: Negative for abdominal pain, constipation, diarrhea and vomiting. Genitourinary: Negative for dysuria, frequency and urgency. Musculoskeletal: Negative for arthralgias, gait problem, joint swelling and myalgias. Skin: Negative for rash and wound. Neurological: Positive for dizziness, weakness and headaches. Negative for light-headedness. Hematological: Does not bruise/bleed easily. Psychiatric/Behavioral: Negative for confusion and hallucinations. Objective PHYSICAL EXAM BP 154/98 Pulse 71 Ht 149.9 cm (4' 11 ) Wt 77.7 kg (171 lb 3.2 oz) BMI 34.58 kg/m?? Right hand/wrist The patient has normal inspection, palpation, range of motion, strength, and stability of the righthand and wrist. Left hand/wrist Inspection Erythema: absent Edema: present Temperature: normal Surgical scar/wound: absent. Visible mass: absent. Intrinsic atrophy: absent Thenar atrophy: present Palpation Tenderness: present. The tenderness is located in the dorsal area, thumb, CMC and livingston area. Range of motion Index: MP: The patient does not have pain with range of motion of the left wrist. The patient has normal range of motion of the left fingers. The patient has pain with range of motion fo the left fingers. Strength Thumb extension: 4/5 Thumb flexion: 5/5 Thumb abduction: 4/5 Thumb opposition: 4/5 Finger extension: 5/5 Finger flexion: 5/5 Wrist extension: 5/5 Wrist flexion: 5/5 Interossei: 4/5 (First webspace) APB: 3/5 (Pain base of thumb) Set Up Mechanic Crown Assembly Machine: 3/5 (Pain base of the thumb) DIP flexion: not tested Neurovascular Radial pulse: 2+ Median: hypersensation Radial: normal Ulnar: normal Tests Phalen's sign: positive Tinel's sign: positive Lyndon's test: positive Median nerve compression:positive Grind test for thumb CMC: positive REVIEW OF X-RAYS/STUDIES/LABS previous x-rays of the left wrist demonstrate advanced CMC arthritis with gjke-th-geyf changes and osteophyte formation Assessment/Plan Shivani was seen today for pain. Diagnoses and all orders for this visit: Arthritis of carpometacarpal (CMC) joint of left thumb - Small Joint (Foot, Fingers, Toes) Injection: L thumb CMC Carpal tunnel syndrome of left wrist De Quervain's disease (radial styloid tenosynovitis) Small Joint (Foot, Fingers, Toes) Injection: L thumb CMC Date/Time: 08/31/2019 12:40 PM Performed by: INO Patrick Authorized by: INO Patrick Small Joint Injection/Aspiration: Consent Given by: Patient Site marked: the procedure site was marked Verbal consent obtained?: Yes Written consent obtained?: Yes Supporting Documentation: Indications: Pain Procedure Details: Location: Thumb Site: L thumb CMC Prep: patient was prepped and draped in usual sterile fashion Needle Size: 25 G Approach: Radial Medications: 0.5 mL lidocaine 20 mg/mL (2 %); 40 mg methylPREDNISolone acetate 80 mg/mL Patient tolerance: Patient tolerated the procedure well with no immediate complications PLAN Discussed and reviewed ongoing management options for CMC arthritis, conservative options to include corticosteroid injection, Push MetaGrip brace vs. Comfort cool brace, occupational therapy, topical creams. We reviewed surgical options as well including CMC arthroplasty and carpal tunnel release. I explained that her arthritis and carpal tunnel syndrome is a progressive condition, and we expectthat symptoms in severity will worsen over time. She elected to proceed with conservative treatmenttoday consisting of corticosteroid injection. She tolerated well and post injection instructions were provided. She would like to continue to manage conservatively as long as possible, and was not interested in surgery at this time. She will continue to follow up with us p.r.n.. I explained repeat steroid injection may be administered in 3-4 months. All questions were answered. Patient expressed full understanding and agreement of plan. INO Patrick documented in this encounter Plan of Treatment Not on file documented as of this encounter Procedures Procedure Name Priority Date/Time Associated Diagnosis Comments ME ARTHROCENTESIS ASPIR&/INJ SMALL JT/BURSA W/O US Routine 08/31/2019 11:15 AM CDT Arthritis of carpometacarpal (CMC) joint of left thumb documented in this encounter Results * ME ARTHROCENTESIS ASPIR&/INJ SMALL JT/BURSA W/O US (08/31/2019 11:15 AM CDT) Narrative Phoebe Trejo PA - 08/31/2019 11:15 AM CDT INO Patrick ? 09/14/2019 11:08 AM Small Joint (Foot, Fingers, Toes) Injection: L thumb CMC Date/Time: 08/31/2019 12:40 PM Performed by: INO Patrick Authorized by: INO Patrick Small Joint Injection/Aspiration: ??Consent Given by: ??Patient ??Site marked: the procedure site was marked ?Verbal consent obtained?: Yes ?Written consent obtained?: Yes ?? Supporting Documentation: ??Indications: ??Pain Procedure Details: ??Location: ??Thumb ??Site: ??L thumb CMC ??Prep: patient was prepped and draped in usual sterile fashion ?Needle Size: ??25 G ??Approach: ??Radial ??Medications: ??0.5 mL lidocaine 20 mg/mL (2 %); 40 mg methylPREDNISolone acetate 80 mg/mL ??Patient tolerance: ??Patient tolerated the procedure well with no immediate complications us Phoebe [facility] IN [facility]/BEDSIDE ORDER [place] Final Result documented in this encounter Visit Diagnoses Diagnosis Arthritis of carpometacarpal (CMC) joint of left thumb- Primary Carpal tunnel syndrome of left wrist De Quervain's disease (radial styloid tenosynovitis) documented in this encounter Administered Medications Inactive Administered Medications - up to 3 most recent administrations Medication Order MAR Action Action Date Dose Rate Site lidocaine (XYLOCAINE) 20 mg/mL (2 %) injection 0.5 mL 0.5 mL, other, One-Time Injection, Starting on Tue08/31/19 at 1240, For 1 dose, Indications: Administration of Local AnesthesiaIndications:Administrat ion of Local Anesthesia Given 08/31/2019 12:40 PM CDT 0.5 mL methylPREDNISolone acetate (DEPO-medrol) injection 40 mg 40 mg, intra-articular, One-Time Injection, Starting on Tue08/31/19 at 1240, For 1 doseIndications:Arthritis of carpometacarpal (CMC) joint of left thumb Given 08/31/2019 12:40 PM CDT 40 mg documented in this encounter Care Teams Eyeletter Relationship Specialty Start Date End Date Mendoza Parker MD PCP - General 02/18/17 06/12/20 documented as of this encounter
--- OUTSIDE RECORDS SUMMARY | 2024-11-19 04:51 | XMS_ITS | Encounter Summary ---
Author Organization [facility] Address [address] [place] [address] Phone Care Team Providers Care Welfare Administrator Name Role Phone Mendoza Parker MD Primary Care Provider +1- [phone] Encounter Details Date Type Department Care Team (Late st Contact Info) Description 05/30/2020 Orders Only [place] [id number] [facility] 5th Floor [address] [place] [id number] Urbano Delacruz MD [address] [address] Social History Tobacco Use Types Packs/Day Years Used Date Smoking Tobacco: Every Day Cigarettes Smokeless Tobacco: Never Alcohol Use Standard Drinks/Week Comments No 0 (1 standard drink = 0.6 oz pur e alcohol) Comments No Sex and Gender Information Value Date Recorded Sex Assigned at Not on file 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 Appears D has improved at goal 49 recent CMP wnl. Patient to be scheduled for Prolia. But was to be transitioned to Reclast. Can receive an additional dose of PRolia will plan for Reclast transition at follow up documented in this encounter Plan of Treatment Not on file documented as of this encounter Procedures Procedure Name Priority Date/Time Associated Diagnosis Comments VITAMIN D 25 HYDROXY Routine 05/30/2020 12:04 PM CDT BASIC METABOLIC PANEL Routine 05/30/2020 12:04 PM CDT documented in this encounter Results * Vitamin D 25 hydroxy (05/30/2020 12:04 PM CDT) Pathologist [facility] Vitamin D 25-OH 49 30 - 100 ng/mL [facility] Comment: Vitamin D Status ? 25-OH Vitamin D: Deficiency: ?<20 ng/mL Insufficiency: ? 20 - 29 ng/mL Optimal: ? > or = 30 ng/mL For 25-OH Vitamin D testing on patients on D2-supplementation and patients for whom quantitation of D2 and D3 fractions is required, the QuestAssureD(TM) 25-OH VIT D, (D2,D3), LC/MS/MS is recommended: order code 40940 (patients >2yrs). See Note 1 Note 1 For additional information, please refer to http://education.SlideMail.Prized/faq/CNI105 (This link is being provided for informational/ educational purposes only.) 05/30/2020 12:0 4 PM CDT 05/30/2020 12:04 PM CDT Narrative [facility] - 05/31/2020 8:43 AM CDT FASTING:NO AN UPDATE OR CORRECTION HAS BEEN MADE TO NAME FASTING: NO us Urbano Delacruz MD LAB BLOOD ORDERABLES Final Resu lt [facility] [address] [place] [address] * Basic metabolic panel (05/30/2020 12:04 PM CDT) Glucose 90 65 - 139 mg/dL [facility] Comment: ? Non-fasting reference interval BUN 10 7 - 25 mg/dL [facility] Creatinine 0.75 0.50 - 1.05 mg/dL [facility] Comment: For patients >49 years of age, the reference limit for Creatinine is approximately 13% higher for people identified as -[place]. eGFR NON-AFR. COMORAN 90 > OR = 60 mL/min/1 .73m2 [facility] EGFR 104 > OR = 60 mL/min/1 .73m2 [facility] BUN/creat ratio NOT APPLICABLE 6 - 22 (calc) [facility] Sodium 140 135 - 146 mmol/L [facility] Potassium, pl 4.4 3.5 - 5.3 mmol/L [facility] Chloride 106 98 - 110 mmol/L [facility] CO2 29 20 - 32 mmol/L [facility] Calcium 9.4 8.6 - 10.4 mg/dL [facility] 05/30/2020 12:0 4 PM CDT 05/30/2020 12:04 PM CDT Narrative [facility] - 05/31/2020 8:43 AM CDT FASTING:NO AN UPDATE OR CORRECTION HAS BEEN MADE TO NAME FASTING: NO us Urbano Delacruz MD LAB BLOOD ORDERABLES Final Resu lt [facility] [address] [place] [address] documented in this encounter Visit Diagnoses Not on filedocumented in this encounter Care Teams Welfare Administrator Relationship Specialty Start Date End Date Mendoza Parker MD PCP - General 02/18/17 06/12/20 documented as of this encounter
--- OUTSIDE RECORDS SUMMARY | 2024-11-19 04:52 | XMS_ITS | Encounter Summary ---
Author Organization [facility] Address [address] [facility] [address] [place] [address] Care Team Providers Care System Auditor Name Role Phone Mendoza Parker MD Primary Care Provider +1- [phone] Reason for Visit * Reason Onset Date Comments Hypertension 05/07/2019 Encounter Details Date Type Department Care Team (Late st Contact Info) Description 05/07/2019 Telephone [facility] [address] [place] [id number] Mendoza Parker MD [address] [address] Hypertension Social History Tobacco Use Types Packs/Day Years Used Date Smoking Tobacco: Every Day Cigarettes Smokeless Tobacco: Never Alcohol Use Standard Drinks/Week Comments No 0 (1 standard drink = 0.6 oz pur e alcohol) Comments No Sex and Gender Information Value Date Recorded Sex Assigned at Not on file 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 Discussed Dr MOHAN recommendation for no medication changes re: BP and to try methods for stress reduction. Instructed to continue to monitor and record BP and call readings in 1 week if still concerned a out elevations. * Telephone Encounter - Corinna Larkin RN - 05/10/2019 11:22 AM CDT Per Verbal discussion with Dr MOHAN: Continue to watch BP and try to manage stress. No change in medication advised at this time. Left ms for pt to return call. * Telephone Encounter - Mary Carmen - 05/09/2019 11:15 AM CDT Pt is concerned about fluctuating bp readings my blood pressure is either good or high. -is on the following medications: Lyrica -takes in the AM Cymbalta - AM Atorvastatin - AM Bystolic - AM and PM Woke with headache 05-08-19 and 05-09-19 Readings: 05-07-19: 151/92 afternoon reading 05-08-19: 124/69 PM 05-09-19: 152/97 AM -just saw KIMBERLEE 05-03-19 for kidney issues and pt does go to pain management -on her own pt stopped taking Isosorbide a couple months ago. has also stopped taking aspirin. CBN: [phone] * Telephone Encounter - Dorota Coats RN - 05/07/2019 4:51 PM CDT Talked with dr Parker pt to continue to take antibiotic and monitor [facility] * Telephone Encounter - Dorota Coats, JUANY - 05/07/2019 4:35 PM CDT Pt called just feeling weak and tired and having some nausea still taking the macrobid she has no further urinary symptoms 05-07-19 BP: 165/100 and T of 99 at pt's 2:00 PM appt at [facility] - scheduled for her Prolia injection. ?? injection not given Pt checked her blood pressure at home and it was 161/85 and no temp 97.8 * Telephone Encounter - Mary Carmen - 05/07/2019 3:42 PM CDT 05-07-19 BP: 165/100 and T of 99 at pt's 2:00 PM appt at [facility] - scheduled for her Prolia injection. -this injection was not given and pt told to call her pcp Need another appt? Had labs last week, has not received any of those results CBN: [phone]/85 bp at home by pt on home machine. documented in this encounter Plan of Treatment Not on file documented as of this encounter Visit Diagnoses Not on filedocumented in this encounter Care Teams System Auditor Relationship Specialty Start Date End Date Mendoza Parker MD PCP - General 02/18/17 06/12/20 documented as of this encounter
--- OUTSIDE RECORDS SUMMARY | 2024-11-19 04:52 | XMS_ITS | Encounter Summary ---
Author Organization [facility] Address [address] [facility] [address] [place] [address] Care Team Providers Care Patternmaker Grader Name Role Phone Mendoza Parker MD Primary Care Provider +1- [phone] Reason for Visit * Reason Onset Date Comments stopped Amlodipine 07/24/2019 Encounter Details Date Type Department Care Team (Late st Contact Info) Description 07/24/2019 Telephone [facility] [address] [place] [id number] Mendoza Parker MD [address] [address] stopped Amlodipine Social History Tobacco Use Types Packs/Day Years Used Date Smoking Tobacco: Every Day Cigarettes Smokeless Tobacco: Never Alcohol Use Standard Drinks/Week Comments No 0 (1 standard drink = 0.6 oz pur e alcohol) Comments No Sex and Gender Information Value Date Recorded Sex Assigned at Not on file 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 * Telephone Encounter - Dorota Coats RN - 07/27/2019 10:52 AM CDT Called and informed pt that she is to take her blood pressure daily and record it and bring it to the office on her follow up appointment on August 31 at 2 pm Pt is not talkie amlodipine at all and is taking the bystolic 20 mg daily and a 10 mg if her blood pressure is up at night prn and she states that she doesn't take this very often * Telephone Encounter - Dorota Coats RN - 07/27/2019 9:19 AM CDT Tried calling pt on all the numbers Dr Parkre would like pt to stop amlodipine and wants to know how much bystolic she is taking her chart states 10mg Dr Parker would like to have her check her blood pressures over the next 30 days and bring them inwith her when she schedules a visit Visit needs to be scheduled earlier than her 10/16 appointment * Telephone Encounter - Dorota Coats RN - 07/25/2019 2:41 PM CDT Called and left a message for pt to call us back * Telephone Encounter - Mary Carmen - 07/24/2019 11:33 AM CDT Informing [facility] she has stopped the Amlodipine due to making her dizzy. States she does drink but this medication made her dizzy and she did end of falling -went to [facility] dx with possible rib fx -thinks the Amlodipine did help with her pressures but thinks it makes her dizzy. Asking if she should take the extra Bystolic she has on hand? CBN: [phone] documented in this encounter Plan of Treatment Not on file documented as of this encounter Visit Diagnoses Not on filedocumented in this encounter Care Teams Patternmaker Grader Relationship Specialty Start Date End Date Mendoza Parker MD PCP - General 02/18/17 06/12/20 documented as of this encounter
--- OUTSIDE RECORDS SUMMARY | 2024-11-19 04:52 | XMS_ITS | Encounter Summary ---
Author Organization [facility] Address [address] [address] [place] [address] Care Team Providers Care Academic Registrar Name Role Phone Mendoza Parker MD Primary Care Provider +1- [phone] Encounter Details Date Type Department Care Team (Late st Contact Info) Description 01/29/2019 Telephone [facility] [address] [place] [phone] Mendoza Parker MD [address] [address] Social History Tobacco Use Types Packs/Day Years Used Date Smoking Tobacco: Every Day Cigarettes Smokeless Tobacco: Never Alcohol Use Standard Drinks/Week Comments No 0 (1 standard drink = 0.6 oz pur e alcohol) Comments No Sex and Gender Information Value Date Recorded Sex Assigned at Not on file 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 documented in this encounter Plan of Treatment Not on file documented as of this encounter Visit Diagnoses Not on filedocumented in this encounter Care Teams Academic Registrar Relationship Specialty Start Date End Date Mendoza Parker MD PCP - General 02/18/17 06/12/20 documented as of this encounter
--- OUTSIDE RECORDS SUMMARY | 2024-11-19 04:52 | XMS_ITS | Encounter Summary ---
Author Organization [facility] Address [address] [place] [address] Care Team Providers Care Surfacing Machine Operator Name Role Phone Mendoza Parker MD Primary Care Provider +1- [phone] Encounter Details Date Type Department Care Team (Late st Contact Info) Description 05/04/2019 Orders Only [facility] [address] [facility] [address] [place] [address] Analia Jacobson RN Social History Tobacco Use Types Packs/Day Years Used Date Smoking Tobacco: Every Day Cigarettes Smokeless Tobacco: Never Alcohol Use Standard Drinks/Week Comments No 0 (1 standard drink = 0.6 oz pur e alcohol) Comments No Sex and Gender Information Value Date Recorded Sex Assigned at Not on file 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
--- OUTSIDE RECORDS SUMMARY | 2024-11-19 04:52 | XMS_ITS | Encounter Summary ---
Author Organization [facility] Address [address] [facility] [address] [place] [address] Care Team Providers Care Manager Green Name Role Phone Mendoza Parker MD Primary Care Provider +1- [phone] Encounter Details Date Type Department Care Team (Late st Contact Info) Description 01/31/2019 Telephone [facility] [address] [place] [address] Maria G Castro LPN Social History Tobacco Use Types Packs/Day Years Used Date Smoking Tobacco: Every Day Cigarettes Smokeless Tobacco: Never Alcohol Use Standard Drinks/Week Comments No 0 (1 standard drink = 0.6 oz pur e alcohol) Comments No Sex and Gender Information Value Date Recorded Sex Assigned at Not on file 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 documented in this encounter Plan of Treatment Not on file documented as of this encounter Visit Diagnoses Not on filedocumented in this encounter Care Teams Manager Green Relationship Specialty Start Date End Date Mendoza Parker MD PCP - General 02/18/17 06/12/20 documented as of this encounter
--- OUTSIDE RECORDS SUMMARY | 2024-11-19 04:52 | XMS_ITS | Encounter Summary ---
Author Organization [facility] Healthcare Address [address] [place] [address] Care Team Providers Care Box Toe Cutter Name Role Phone Mendoza Parker MD Primary Care Provider [phone]- [phone] Reason for Referral * Cardiology (Routine) - Closed Specialty Diagnoses / Procedures Referred By Contac t Referred To Contact Diagnoses Chest pain, unspecified type Procedures NM MPI SPECT (Rest and/or Stress) Multiple Studies Mendoza Parker MD Phone: tel: fax: [address] [phone] Referral ID Status Reason Start Date Expiration Date Visits Re quested Visits Authorized [id number] Closed 01/23/2019 08/03/2020 5 5 Reason for Visit * Cardiology (Routine) - Closed Specialty Diagnoses / Procedures Referred By Contac t Referred To Contact Diagnoses Chest pain, unspecified type Procedures NM MPI SPECT (Rest and/or Stress) Multiple Studies Mendoza Parker MD Phone: tel: fax: [address] [phone] Referral ID Status Reason Start Date Expiration Date Visits Re quested Visits Authorized [id number] Closed 01/23/2019 08/03/2020 5 5 Encounter Details Date Type Department Care Team (Late st Contact Info) Description 01/31/2019 6:24 AM CDT - 01/31/2019 7:21 AM CDT Hospital Encounter [facility] [address] [place] [address] Mendoza Parker MD [address] [address] Chest pain, unspecified type Discharge Disposition: Discharge [...] on file 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 Gender Identity Not on file Sexual Orientation Not on file documented as of this encounter Medications at Time of Discharge cyclobenzaprine (FLEXERIL) 10 mg tablet Take 1 tablet (10 mg total) by mouth 3 (three) times a day as needed 10/28/2017 acetaminophen-asp irin-caffeine (EXCEDRIN MIGRAINE) 250-250-65 mg per tablet 1-2 per week 0 atorvastatin (LIPITOR) 20 mg tablet TAKE ONE TABLET BY MOUTH ONCE DAILY 90 tablet 1 2018 9 azelastine 0.15 % (205.5 mcg) spray,non-aerosol SPRAY 1 SPRAY INTO EACH NOSTRIL TWICE A DAY 30 mL 3 12/27/2017 0 calcium carbonate-vitamin D3 (CALCIUM 500 + D) 1,250mg (500mg elemental) - 200 units per tablet 04/17/[address] (CYMBALTA) 30 mg capsule Take 30 mg by mouth daily 03/23/2018 0 ECOTRIN LOW STRENGTH 81 mg tablet TAKE ONE TABLET BY MOUTH ONCE DAILY 90 tablet 1 09/25/2018 9 estradiol (ESTRACE) 0.01 % (0.1 mg/gram) vaginal cream INSERT 1/2 TO 1 GRAM VAGINALLY 1 TO 2 TIMES PER WEEK 42.5 0 03/07/2013 0 HYDROcodone-aceta minophen (NORCO) 5-325 mg per tabletIndications :Pain Take 1 tablet by mouth every 6 (six) hours as needed. 0 01/01/2018 0 isosorbide mononitrate ER (IMDUR) 60 mg 24 hr tablet TAKE ONE TABLET BY MOUTH ONCE DAILY 90 tablet 1 2018 0 lubiprostone (AMITIZA) 24 mcg capsule Take 24 mcg by mouth daily with breakfast. 0 nebivolol (BYSTOLIC) 10 mg tablet Take 0.5 tablets (5 mg total) by mouth 2 (two) times a day 60 tablet 5 01/29/2019 0 neomycin-polymyxi n-dexamethasone (MAXITROL) 3.5mg/mL-10,000 unit/mL-0.1 % ophthalmic suspension 02/01/2018 0 omeprazole (PriLOSEC) 40 mg capsule TAKE ONE CAPSULE BY MOUTH ONCE DAILY 30 capsule 01/06/2018 9 pen needle, diabetic (BD ULTRA-FINE MINI PEN NEEDLE) 31 gauge x 3/16 needle use one needle daily with Forteo Pen 06/30/2015 0 pregabalin (LYRICA) 75 mg capsule take 1 capsule by oral route 2 times every day 0 0 03/07/2015 0 spironolactone (ALDACTONE) 25 mg tablet Take 0.5 tablets (12.5 mg total) by mouth daily 15 tablet 5 01/29/2019 9 varenicline (CHANTIX JAIME) 0.5 mg (11)- 1 mg (42) tablet Use as directed on package instructions, try to quit smoking after 1 week. 53 tablet 01/17/2019 9 zolpidem (AMBIEN) 10 mg tabletIndications :Sleep-Onset Insomnia Take 1 tablet (10 mg total) by mouth nightly as needed for sleep. 30 tablet 5 10/23/2018 9 documented as of this encounter Discharge Disposition Disposition Code Departure Means Destination Discharge to home or self care documented in this encounter Plan of Treatment Not on file documented as of this encounter Procedures Procedure Name Priority Date/Time Associated Diagnosis Comments NM MPI SPECT (REST AND/OR STRESS) MULTIPLE STUDIES Schedule Routine, Read Routine (OP Routine) 01/31/2019 10:14 AM CDT Chest pain, unspecified type STRESS TEST FOR DUAL READ Schedule Routine, Read Routine (OP Routine) 01/31/2019 10:14 AM CDT Chest pain, unspecified type documented in this encounter Results * Stress Test for Myocardial Perfusion (01/31/2019 10:14 AM CDT) Anatomical Region Laterality Modality Nuclear Medicine 01/31/2019 8:33 AM CDT Narrative 01/31/2019 10:18 AM CDT [address] [place] [address] Lexiscan Report Patient Name: DALE BETANCUR J : 1965 Study Date: 01/31/2019 08:33:15 Gender: F Tech: michelle hopson Ref.Provider: MENDOZA PARKER Height(Cm): 59 BSA: Weight(Kg): 165Heart Rate: 141 Order Provider: MENDOZA PARKER Procedures: Pharmacologic SPECT Report.: Myocardial perfusion imaging with Sestamibi SPECT at rest and post regadenoson (Lexiscan) infusion. Indications: Chest Pain. Findings: Procedure Data: Resting HR 92 bpm. Peak HR: 109 bpm. Predicted Maximal HR 166 bpm. Target HR: 141 bpm. Percent Max Predicted HR Achieved: 65.66 %. Baseline BP: 121/77 mmHg. Peak BP: 121/77 mmHg. Exercise Time: 0.53. Medications: atorvastatin, nose spray, flexeril, cymbalta, asa, hydrocodone, imdur, amitiza, lyrica, bystolic, prilosec, aldactone, ambien. Performed By: Leila Arrington RN. Reason for Termination: Lexiscan protocol complete. Resting ECG: Normal sinus rhythm. Nonspecific T wave abnormality. Post Pharm ECG: No diagnostic ST changes. Arrhythmia: No arrhythmias seen. Cardiac Symptoms With Stress: Symptoms with stress were Chest pain in recovery lasting 3 minutes without EKG changes. Could be from regadenoson. Exam Interpreted: Read by . Conclusions: 1. Chest pain in recovery could be due to regadenoson. There were no ischemic looking changes during that episode. 2. No definite ischemia on stress EKG. 3. Nuclear images are pending and they will be reported separately. Electronically Signed By: Dr Yony Rehman 2019-01-31 10:18:30 CDT Procedure Note Yony Rehman MD - 01/31/[address] [place] [address] Lexiscan Report Patient Name: DALE BETANCUR JPatient ID: [id number] : [id number] Date: 01/31/2019 08:33:15 Gender: FAccession #: [id number] Tech: michelle Ugalde.Provider: MENDOZA PARKER Height(Cm): 59BSA: Weight(Kg): 165Heart Rate: 141 Order Provider: MENDOZA PARKER Procedures: Pharmacologic SPECT Report.: Myocardial perfusion imaging with Sestamibi SPECT at rest and postregadenoson (Lexiscan) infusion. Indications: Chest Pain. Findings: Procedure Data: Resting HR 92 bpm. Peak HR: 109 bpm. Predicted Maximal HR 166 bpm. TargetHR: 141 bpm. Percent Max Predicted HR Achieved: 65.66 %. Baseline BP: 121/77 mmHg. PeakBP: 121/77 mmHg. Exercise Time: 0.53. Medications: atorvastatin, nose spray, flexeril, cymbalta, asa, hydrocodone, imdur,amitiza, lyrica, bystolic, prilosec, aldactone, ambien. Performed By: Leila Arrington RN. Reason for Termination: Lexiscan protocol complete. Resting ECG: Normal sinus rhythm. Nonspecific T wave abnormality. Post Pharm ECG: No diagnostic ST changes. Arrhythmia: No arrhythmias seen. Cardiac Symptoms With Stress: Symptoms with stress were Chest pain in recovery lasting 3 minuteswithout EKG changes. Could be from regadenoson. Exam Interpreted: Read by . Conclusions: 1. Chest pain in recovery could be due to regadenoson. There were no ischemic looking changes during that episode. 2. No definite ischemia on stress EKG. 3. Nuclear images are pending and they will be reported separately. Electronically Signed By: Dr Yony Rehman 2019-01-31 10:18:30 CDT us Mendoza Parker MD CV STRESS PROCEDURES Final Result * NM MPI SPECT (Rest and/or Stress) Multiple Studies (01/31/2019 10:14 AM CDT) Anatomical Region Laterality Modality Body N/A Nuclear Medicine 01/31/2019 11:2 0 AM CDT Impressions 01/31/2019 10:28 AM CDT 1. ??No left ventricular ischemia or infarction seen. 2. ??Normal left ventricular ejection fraction of 66%. 3. ??No left ventricular wall motion abnormality on cine images. 4. ??No significant change compared to 08/03/2017. Electronically signed by: Varun Abernathy Jr., M.D. Narrative 01/31/2019 10:28 AM CDT NM MPI SPECT (REST AND/OR STRESS) MULTIPLE STUDIES HISTORY: Chest pain. COMPARISON:Pharmacologic myocardial stress and rest scan on 08/03/2017. RADIOPHARMACEUTICAL: 10.4 mCi Tc-99m Myoview IV at rest and and 30.6 mCi Tc-99m Myoview IV at pharmacologic stress. FINDINGS: ??Standard myocardial perfusion images were obtained after resting injection of 10.4 millicuries Tc-99m Myoview. ??Subsequently, an intravenous infusion of 0.4 mg Lexiscan was given under the supervision of Dr. Rehman. ??At the peak effect of the drug, 30.6 millicuries Tc-99m Myoview was injected intravenously and standard myocardial perfusion images were obtained. ??Gated wall motion and ejection fraction were also determined. No fixed or reversible left ventricular myocardial perfusion defects are seen. ??Gated Tc-99m Myoview images demonstrate normal left ventricular wall thickening. ??The left ventricular ejection fraction is within normal limits at 66% (normal > 45%). Procedure Note Yony Rehman MD / Varun Abernathy Jr., MD - 01/31/2019 NM MPI SPECT (REST AND/OR STRESS) MULTIPLE STUDIES HISTORY: Chest pain. COMPARISON:Pharmacologic myocardial stress and rest scan on 08/03/2017. RADIOPHARMACEUTICAL: 10.4 mCi Tc-99m Myoview IV at rest and and 30.6 mCi Tc-99m Myoview IV at pharmacologic stress. FINDINGS: Standard myocardial perfusion images were obtained after resting injection of 10.4 millicuries Tc-99m Myoview. Subsequently, an intravenous infusion of 0.4 mg Lexiscan was given under the supervision of Dr. Rehman. At the peak effect of the drug, 30.6 millicuries Tc-99m Myoview was injected intravenously and standard myocardial perfusion images were obtained. Gated wall motion and ejection fraction were also determined. No fixed or reversible left ventricular myocardial perfusion defects are seen. Gated Tc-99m Myoview images demonstrate normal left ventricular wall thickening. The left ventricular ejection fraction is within normal limits at 66% (normal > 45%). IMPRESSION: 1. No left ventricular ischemia or infarction seen. 2. Normal left ventricular ejection fraction of 66%. 3. No left ventricular wall motion abnormality on cine images. 4. No significant change compared to 08/03/2017. Electronically signed by: Varun Abernathy Jr., M.D. Mendoza Parker MD [facility] PROCEDURES Edited documented in this encounter Visit Diagnoses Diagnosis Chest pain, unspecified type documented in this encounter Administered Medications Inactive Administered Medications - up to 3 most recent administrations Medication Order MAR Action Action Date Dose Rate Site tc-99m tetrofosmin (MYOVIEW) injection 10.4 millicurie 10.4 millicurie, intravenous, Once in imaging, radiopharmaceutical, Starting on Tue01/31/19 at 0751, For 1 dose, Indications: Diagnostic RadiographyIndicatio ns:Diagnostic Radiography Given 01/31/2019 7:51 AM CDT 10.4 millicuries tc-99m tetrofosmin (MYOVIEW) injection 30.6 millicurie 30.6 millicurie, intravenous, Once in imaging, radiopharmaceutical, Starting on Tue01/31/19 at 0954, For 1 dose, Indications: Diagnostic RadiographyIndicatio ns:Diagnostic Radiography Given 01/31/2019 9:54 AM CDT 30.6 millicuries Left Antecubital documented in this encounter Care Teams Box Toe Cutter Relationship Specialty Start Date End Date Mendoza Parker MD PCP - General 02/18/17 06/12/20 documented as of this encounter
--- OUTSIDE RECORDS SUMMARY | 2024-11-19 04:52 | XMS_ITS | Encounter Summary ---
Author Organization [facility] Medical Group Address [address] [facility] [address] [place] [address] Care Team Providers Care Electrical Troubleshooter Name Role Phone Mendoza Parker MD Primary Care Provider [phone]- [phone] Reason for Visit * Reason Comments Hypertension Encounter Details Date Type Department Care Team (Late st Contact Info) Description 06/14/2019 2:20 PM CDT Office Visit [facility] [address] [place] [address] Mendoza Parker MD [address] [address] Essential hypertension (Primary Dx) Social History Tobacco Use Types Packs/Day Years Used Date Smoking Tobacco: Every Day Cigarettes Smokeless Tobacco: Never Alcohol Use Standard Drinks/Week Comments No 0 (1 standard drink = 0.6 oz pur e alcohol) Comments No Sex and Gender Information Value Date Recorded Sex Assigned at Not on file 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 Gender Identity Not on file Sexual Orientation Not on file documented as of this encounter Last Filed Vital Signs Vital Sign Reading Time Taken Comments Blood Pressure 150/82 06/14/2019 2:29 PM CDT Pulse 73 06/14/2019 2:29 PM CDT Temperature 36.9 ??C (98.4 ??F) 06/14/2019 2:29 PM CD T Respiratory Rate 16 06/14/2019 2:29 PM CDT Oxygen Saturation 95% 06/14/2019 2:29 PM CDT Inhaled Oxygen Concentration - - Weight 74.8 kg (165 lb) 06/14/2019 2:29 PM CDT Height 149.9 cm (4' 11 ) 06/14/2019 2:29 PM CDT Body Mass Index 33.33 06/14/2019 2:29 PM CDT documented in this encounter Ordered Prescriptions Prescription Sig Dispense Quantity Refills Last Filled Start Date End Date amLODIPine (NORVASC) 2.5 mg tablet Take 1 tablet (2.5 mg total) by mouth daily 30 tablet 5 06/14/2019 09/04/2019 documented in this encounter Progress Notes * Mendoza Parker MD - 06/14/2019 2:20 PM CDT Subjective/Objective Patient ID: Shivani Betancur is a 53 y.o. female. Chief Complaint Hypertension Patient is here because of hypertension her blood pressure is not at goal yet I reviewed blood pressure readings from home as well as our chart here in office. Please see assessment and plans. HPI Review of Systems Constitutional: Negative. HENT: Negative. Gastrointestinal: Positive for abdominal pain. Genitourinary: Positive for pelvic pain. Musculoskeletal: Positive for arthralgias and back pain. Skin: Negative. Neurological: Negative. Hematological: Negative. Psychiatric/Behavioral: Negative. Physical Exam Constitutional: She is oriented to person, place, and time. She appears well- developed and well-nourished. Neck: Normal range of motion. Neck supple. Cardiovascular: Normal rate, regular rhythm, normal heart sounds and intact distal pulses. Abdominal: Soft. Bowel sounds are normal. Neurological: She is alert and oriented to person, place, and time. Skin: Skin is warm. Psychiatric: She has a normal mood and affect. Her behavior is normal. Judgment and thought contentnormal. Nursing note and vitals reviewed. Assessment/Plan Diagnoses and all orders for this visit: Essential hypertension (I10) (Primary) Assessment & Plan: Patient is taking Bystolic 20 mg some [...] she may develop some edema with amlodipine. Other orders - amLODIPine (NORVASC) 2.5 mg tablet; Take 1 tablet (2.5 mg total) by mouth daily documented in this encounter Miscellaneous Notes * Assessment & Plan Note - Mendoza Parker MD - 06/14/2019 6:26 PM CDT Associated Problem(s): Essential hypertension Patient is taking Bystolic 20 mg some [...] she may develop some edema with amlodipine. documented in this encounter Plan of Treatment Not on file documented as of this encounter Visit Diagnoses Diagnosis Essential hypertension- Primary Unspecified essential hypertension documented in this encounter Discontinued Medications Medication Sig Discontinue Reason Start Date End Da te spironolactone (ALDACTONE) 25 mg tablet Take 0.5 tablets (12.5 mg total) by mouth daily Side effects 01/29/2019 06/14/2019 documented as of this encounter Care Teams Electrical Troubleshooter Relationship Specialty Start Date End Date Mendoza Parker MD PCP - General 02/18/17 06/12/20 documented as of this encounter
--- OUTSIDE RECORDS SUMMARY | 2024-11-19 04:52 | XMS_ITS | Encounter Summary ---
Author Organization [facility] Care Team Providers Care Cd Reactor Operator Head Name Role Phone Mendoza Parker MD Primary Care Provider [phone]- [phone] Encounter Details Date Type Department Care Team (Latest Contact Info) Description 02/02/2019 Travel Social History Tobacco Use Types Packs/Day Years Used Date Smoking Tobacco: Every Day Cigarettes Smokeless Tobacco: Never Alcohol Use Standard Drinks/Week Comments No 0 (1 standard drink = 0.6 oz pur e alcohol) Comments No Sex and Gender Information Value Date Recorded Sex Assigned at Not on file 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
--- OUTSIDE RECORDS SUMMARY | 2024-11-19 04:52 | XMS_ITS | Encounter Summary ---
Author Organization [facility] Address [address] [facility] [address] [place] [address] Care Team Providers Care Rig Builder Name Role Phone Mendoza Parker MD Primary Care Provider [phone]- [phone] Encounter Details Date Type Department Care Team (Late st Contact Info) Description 02/02/2019 1:00 PM CDT Office Visit [facility] [address] [place] [address] Mendoza Parker MD [address] [address] Essential hypertension (Primary Dx); Alcohol abuse; Smoking trying to quit Social History Tobacco Use Types Packs/Day Years Used Date Smoking Tobacco: Every Day Cigarettes Smokeless Tobacco: Never Alcohol Use Standard Drinks/Week Comments No 0 (1 standard drink = 0.6 oz pur e alcohol) Comments No Sex and Gender Information Value Date Recorded Sex Assigned at Not on file 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 Gender Identity Not on file Sexual Orientation Not on file documented as of this encounter Last Filed Vital Signs Vital Sign Reading Time Taken Comments Blood Pressure 150/96 02/02/2019 1:19 PM CDT Pulse 80 02/02/2019 1:19 PM CDT Temperature 36.5 ??C (97.7 ??F) 02/02/2019 1:19 PM CD T Respiratory Rate 16 02/02/2019 1:19 PM CDT Oxygen Saturation - - Inhaled Oxygen Concentration - - Weight 75.8 kg (167 lb) 02/02/2019 1:19 PM CDT Height 149.9 cm (4' 11 ) 02/02/2019 1:19 PM CDT Body Mass Index 33.73 02/02/2019 1:19 PM CDT documented in this encounter Progress Notes * Mendoza Parker MD - 02/02/2019 1:00 PM CDT Subjective/Objective Patient ID: Shivani Betancur is a 53 y.o. female. Chief Complaint No chief complaint on file. HPI Patient's concern regarding adjusting blood pressure medication please see assessment and plans. Review of Systems Cardiovascular: Positive for chest pain. Stress test earlier this week was negative. Musculoskeletal: Positive for arthralgias and myalgias. Skin: Negative. Physical Exam Constitutional: She is oriented to person, place, and time. She appears well- developed and well-nourished. Neck: Normal range of motion. Neck supple. Cardiovascular: Normal rate, regular rhythm, normal heart sounds and intact distal pulses. Pulmonary/Chest: Effort normal and breath sounds normal. Neurological: She is alert and oriented to person, place, and time. Skin: Skin is warm and dry. Nursing note and vitals reviewed. Assessment/Plan Diagnoses and all orders for this visit: Essential hypertension (I10) (Primary) Assessment & Plan: Patient's sourcer changed her medicine is to Bystolic 5 mg twice a day she has 10 mg tablets she is breaking map taking twice a day.. Patient was previously on spironolactone 25 mg per day bloodpressures dropping too low. She is now on spironolactone 1/2 tablet spironolactone 25 mg daily. Patient's diastolic blood pressures drops 60 she feels fatigued and wiped out she also notices that herheart rate increases. At this time I have advised patient to stay on Bystolic 5 mg half tablet twice a day. Change her spironolactone 1/2 tab dosage by taking spironolactone even days only.. Patient had 20 blood pressure readings at home 5 of those blood pressure readings were elevated remainder wit hin normal range. Again she had some diastolic readings in the 60s and patient did not feel well. Alcohol abuse (F10.10) Assessment & Plan: Patient advised me insurance company has approved for to going to rehab at a facility in [facility]. Patient does not want to leave her family and does not want to go. Advised patient to contact her insurance company regarding an outpatient treatment in this immediate area thatmohan can attend his stay at home. Smoking trying to quit (Z72.0) Assessment & Plan: Patient did not get the Chantix prescription feel her 's opposed to he had nightmares on themedication. He is afraid of suicidal ideation.. Patient advised black box warning has been removed regarding Chantix in a suicide. documented in this encounter Miscellaneous Notes * Assessment & Plan Note - Mendoza Parker MD - 02/02/2019 4:53 PM CDT Associated Problem(s): Smoking trying to quit Patient did not get the Chantix prescription feel her 's opposed to he had nightmares on themedication. He is afraid of suicidal ideation.. Patient advised black box warning has been removed regarding Chantix in a suicide. * Assessment & Plan Note - Mendoza Parker MD - 02/02/2019 4:52 PM CDT Associated Problem(s): Alcohol abuse Patient advised me insurance company has approved for to going to rehab at a facility in [facility]. Patient does not want to leave her family and does not want to go. Advised patient to contact her insurance company regarding an outpatient treatment in this immediate area thatmohan can attend his stay at home. * Assessment & Plan Note - Mendoza Parker MD - 02/02/2019 4:50 PM CDT Associated Problem(s): Essential hypertension Patient's sourcer changed her medicine is to Bystolic 5 mg twice a day she has 10 mg tablets she is breaking map taking twice a day.. Patient was previously on spironolactone 25 mg per day bloodpressures dropping too low. She is now on spironolactone 1/2 tablet spironolactone 25 mg daily. Patient's diastolic blood pressures drops 60 she feels fatigued and wiped out she also notices that herheart rate increases. At this time I have advised patient to stay on Bystolic 5 mg half tablet twice a day. Change her spironolactone 1/2 tab dosage by taking spironolactone even days only.. Patient had 20 blood pressure readings at home 5 of those blood pressure readings were elevated remainder wit hin normal range. Again she had some diastolic readings in the 60s and patient did not feel well. documented in this encounter Plan of Treatment Not on file documented as of this encounter Visit Diagnoses Diagnosis Essential hypertension- Primary Unspecified essential hypertension Alcohol abuse Nondependent alcohol abuse, unspecified drinking behavior Smoking trying to quit documented in this encounter Discontinued Medications Medication Sig Discontinue Reason Start Date End Da te varenicline (CHANTIX JAIME) 0.5 mg (11)- 1 mg (42) tablet Use as directed on package instructions, try to quit smoking after 1 week. 01/17/2019 02/02/2019 documented as of this encounter Care Teams Rig Builder Relationship Specialty Start Date End Date Mendoza Parker MD PCP - General 02/18/17 06/12/20 documented as of this encounter
--- OUTSIDE RECORDS SUMMARY | 2024-11-19 04:52 | XMS_ITS | Encounter Summary ---
Author Organization [facility] Care Team Providers Care River Captain Name Role Phone Mendoza Parker MD Primary Care Provider +1- [phone] Encounter Details Date Type Department Care Team (Latest Contact Info) Description 05/15/2019 Travel Social History Tobacco Use Types Packs/Day Years Used Date Smoking Tobacco: Every Day Cigarettes Smokeless Tobacco: Never Alcohol Use Standard Drinks/Week Comments No 0 (1 standard drink = 0.6 oz pur e alcohol) Comments No Sex and Gender Information Value Date Recorded Sex Assigned at Not on file 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:46 AM PATIENT CARE MANAGER Gender Identity Not on file Sexual Orientation Not on file documented as of this encounter Plan of Treatment Not on file documented as of this encounter Visit Diagnoses Not on filedocumented in this encounter Care Teams River Captain Relationship Specialty Start Date End Date Mendoza Parker MD PCP - General 02/18/17 06/12/20 documented as of this encounter
--- OUTSIDE RECORDS SUMMARY | 2024-11-19 04:52 | XMS_ITS | Encounter Summary ---
Author Organization [facility] Facility Care Team Providers Care Rough And Trueing Machine Operator Name Role Phone Mendoza Parker MD Primary Care Provider +1- [phone] Encounter Details Date Type Department Care Team (Latest Contact Info) Description 03/07/2019 Travel Social History Tobacco Use Types Packs/Day Years Used Date Smoking Tobacco: Every Day Cigarettes Smokeless Tobacco: Never Alcohol Use Standard Drinks/Week Comments No 0 (1 standard drink = 0.6 oz pur e alcohol) Comments No Sex and Gender Information Value Date Recorded Sex Assigned at Not on file 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
--- OUTSIDE RECORDS SUMMARY | 2024-11-19 04:52 | XMS_ITS | Encounter Summary ---
Author Organization [facility] Address [address] [facility] [address] [place] [address] Care Team Providers Care Senior Government Program Analyst Name Role Phone Mendoza Parker MD Primary Care Provider +1- [phone] Reason for Visit * Diagnostic Imaging (Routine) - Closed Specialty Diagnoses / Procedures Referred By Contac t Referred To Contact Diagnoses Left hand pain Procedures XR Hand Left 3+ Vw Richardson Shields II, PA Phone: tel: fax: Referral ID Status Reason Start Date Expiration Date Visits Re quested Visits Authorized [id number] Closed 03/07/2019 09/15/2020 1 1 Encounter Details Date Type Department Care Team (Latest Contact Info) Description 03/07/2019 1:35 PM CDT - 03/07/2019 11:59 PM CDT Hospital Encounter [facility] and [facility] Medicine [address] [place] [phone] Discharge Disposition: Discharge to home or self care Social History Tobacco Use Types Packs/Day Years Used Date Smoking Tobacco: Every Day Cigarettes Smokeless Tobacco: Never Alcohol Use Standard Drinks/Week Comments No 0 (1 standard drink = 0.6 oz pur e alcohol) Comments No Sex and Gender Information Value Date Recorded Sex Assigned at Not on file 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 Gender Identity Not on file Sexual [...] ULTRA-FINE MINI PEN NEEDLE) 31 gauge x 02/03 needle use one needle daily with Forteo Pen 06/30/2015 0 pregabalin (LYRICA) 75 mg capsule take 1 capsule by oral route 2 times every day 0 0 03/07/2015 0 spironolactone (ALDACTONE) 25 mg tablet Take 0.5 tablets (12.5 mg total) by mouth daily 15 tablet 5 01/29/2019 9 zolpidem (AMBIEN) 10 mg tabletIndications :Sleep-Onset [...] VIEWS Schedule Routine, Read Routine (OP Routine) 03/07/2019 1:40 PM CDT Left hand pain documented in this encounter Results * XR Hand Left 3+ Vw (03/07/2019 1:40 PM CDT) Anatomical Region Laterality Modality Upper Extremities, Hand Left Radiogra phic Imaging Narrative 03/12/2019 8:32 PM CDT Interpretation of x-rays: ??Three views of the left hand taken today in the office demonstrate, in my opinion, 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 ??There is no acute bony abnormality, fracture or dislocation noted. INO Cason II IMG XR PROCEDURES Final Result documented in this encounter Visit Diagnoses Not on filedocumented in this encounter Care Teams Senior Government Program Analyst Relationship Specialty Start Date End Date Mendoza Parker MD PCP - General 02/18/17 06/12/20 documented as of this encounter
--- OUTSIDE RECORDS SUMMARY | 2024-11-19 04:52 | XMS_ITS | Encounter Summary ---
Author Organization 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
--- OUTSIDE RECORDS SUMMARY | 2024-11-19 04:52 | XMS_ITS | Encounter Summary ---
Author Organization [facility] Address [address] [facility] [address] [place] [address] Care Team Providers Care Privacy Manager Name Role Phone Mendoza Parker MD Primary Care Provider +1- [phone] Reason for Visit * Reason Onset Date Comments second opinion 12/19/2018 Encounter Details Date Type Department Care Team (Late st Contact Info) Description 12/19/2018 Telephone [facility] [address] [place] [phone] Mendoza Parker MD [address] [id number] second opinion Social History Tobacco Use Types Packs/Day Years Used Date Smoking Tobacco: Every Day Cigarettes Smokeless Tobacco: Never Alcohol Use Standard Drinks/Week Comments No 0 (1 standard drink = 0.6 oz pur e alcohol) Comments No Sex and Gender Information Value Date Recorded Sex Assigned at Not on file 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 CONDITIONING MECHANIC * Telephone Encounter - Mary Carmen - 12/20/2018 1:55 PM CST Pt got in with Dr. Parrish [place] [address] -no need to do referral, the pt took care of it herself CONDITIONING MECHANIC * Telephone Encounter - Maria G Castro LPN - 12/19/2018 3:19 PM CST Pt notified She will wait for referral CONDITIONING MECHANIC * Telephone Encounter - Mendoza Parker MD - 12/19/2018 2:51 PM AIR CONDITIONING MECHANIC I think is reasonable in is okay with me for her to get a 2nd opinion regarding her abnormal MRI and CT scan reports of her brain. Please advised patient is absolutely necessary that she be copies/disc over CT of her brain dated 08/15/2018 and the MRI dated 09/28/2018 both of these are brain images. CONDITIONING MECHANIC * Telephone Encounter - Maria G Castro LPN - 12/19/2018 1:46 PM CST To front desk monitor to refer per pt request To to update CONDITIONING MECHANIC * Telephone Encounter - Mary Carmen - 12/19/2018 1:23 PM CST Asking [facility] for a second opinion referral. The pt saw Dr. Younger and Vitaly -pt is asking to see Dr. Cox, a neurologist in [place] for a second opinion regarding the small brain mass Dr. Younger found. Tel: [phone] Dx: Brain mass Ins: [facility]. Pt has a new insurance and will be in 12-21-18 to give us this information/make a copy soan insurance referral may be completed CBN: [phone]. Call pt when both insurance and to referral is sent. Dr. Mclaughlin office also needs any diagnostic information CONDITIONING MECHANIC documented in this encounter Plan of Treatment Not on file documented as of this encounter Visit Diagnoses Diagnosis Brain mass- Primary Unspecified condition of brain documented in this encounter Care Teams Privacy Manager Relationship Specialty Start Date End Date Mendoaz Parker MD PCP - General 02/18/17 06/12/20 documented as of this encounter
--- OUTSIDE RECORDS SUMMARY | 2024-11-19 04:52 | XMS_ITS | Encounter Summary ---
Author Organization [facility] Address [address] [facility] [address] [place] [address] Care Team Providers Care Head Transfer Clerk Name Role Phone Mendoza Parker MD Primary Care Provider +1- [phone] Encounter Details Date Type Department Care Team (Late st Contact Info) Description 01/18/2019 Orders Only [facility] [address] [place] [phone] Yady Flores MA Social History Tobacco Use Types Packs/Day Years Used Date Smoking Tobacco: Every Day Cigarettes Smokeless Tobacco: Never Alcohol Use Standard Drinks/Week Comments No 0 (1 standard drink = 0.6 oz pur e alcohol) Comments No Sex and Gender Information Value Date Recorded Sex Assigned at Not on file 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
--- OUTSIDE RECORDS SUMMARY | 2024-11-19 04:52 | XMS_ITS | Encounter Summary ---
Author Organization [facility] Healthcare Address [address] [place] [address] Care Team Providers Care Digital Ad Trafficker Name Role Phone Mendoza Parker MD Primary Care Provider +1- [phone] Encounter Details Date Type Department Care Team (Late st Contact Info) Description 05/03/2019 8:00 PM CDT Lab [address] [id number] Acute cystitis without hematuria Social History Tobacco Use Types Packs/Day Years Used Date Smoking Tobacco: Every Day Cigarettes Smokeless Tobacco: Never Alcohol Use Standard Drinks/Week Comments No 0 (1 standard drink = 0.6 oz pur e alcohol) Comments No Sex and Gender Information Value Date Recorded Sex Assigned at Not on file 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:46 AM CONSULTING ANALYST Gender Identity Not on file Sexual Orientation Not on file documented as of this encounter Plan of Treatment Not on file documented as of this encounter Procedures Procedure Name Priority Date/Time Associated Diagnosis Comments URINALYSIS AND REFLEX TO MICROSCOPIC AND CULTURE Routine 05/03/2019 12:16 PM CDT Acute cystitis without hematuria documented in this encounter Results * Urinalysis reflex to microscopic and culture Urine (05/03/2019 12:16 PM CDT) Color, ur Yellow Yellow [facility] Clarity, ur Clear Clear [facility] Specific gravity, ur 1.025 1.010 - 1.025 [facility] pH, urine 5.0 [facility] Protein, ur ql Negative Negative [facility] Glucose, ur ql Negative Negative [facility] Ketones, ur Trace Negative [facility] Bilirubin, ur Negative Negative [facility] Blood, ur Negative Negative [facility] Urobilinogen, ur <2.0 <2.0 mg/dL [facility] Nitrite, ur Negative Negative [facility] Leukocyte esterase, ur Negative Negative C[facility]ER Urine 05/03/2019 12:1 6 PM CDT 05/03/2019 8:10 PM CDT Narrative ANITH[facility] CH - 05/03/2019 8:22 PM CDT Today 05-03-19 Urine pH is affected by diet, medications, systemic acid-base disturbances, and renal tubular function. ??pH may affect urinary stone formation. ??For example, urine pH below 6.0 may help reduce the tendency for calcium phosphate stones and pH greater than 6.0 may reduce the tendency for uric acid stone formation. Source: Read [employer]eb[employer]. Last revised 12-01-2017 Mendoza Parker MD LAB MICROBIOLOGY - GENERAL ORDERABLES Final Result [facility] [address] [address] [place] [address] documented in this encounter Visit Diagnoses Diagnosis Acute cystitis without hematuria documented in this encounter Care Teams Digital Ad Trafficker Relationship Specialty Start Date End Date Mendoza Parker MD PCP - General 02/18/17 06/12/20 documented as of this encounter
--- OUTSIDE RECORDS SUMMARY | 2024-11-19 04:52 | XMS_ITS | Encounter Summary ---
Author Organization [facility] Healthcare Address [address] [place] [address] Care Team Providers Care Fast Food Shift Lead Name Role Phone Mendoza Parker MD Primary Care Provider +1- [phone] Encounter Details Date Type Department Care Team (Late st Contact Info) Description 05/02/2019 Orders Only [facility] [address] [facility] [address] [place] [id number] Justus Landeros RN Social History Tobacco Use Types Packs/Day Years Used Date Smoking Tobacco: Every Day Cigarettes Smokeless Tobacco: Never Alcohol Use Standard Drinks/Week Comments No 0 (1 standard drink = 0.6 oz pur e alcohol) Comments No Sex and Gender Information Value Date Recorded Sex Assigned at Not on file 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
--- OUTSIDE RECORDS SUMMARY | 2024-11-19 04:52 | XMS_ITS | Encounter Summary ---
Author Organization [facility] Healthcare Address [address] [place] [address] Care Team Providers Care Chief Telephone Operator Name Role Phone Mendoza Parker MD Primary Care Provider +1- [phone] Reason for Visit * Reason Comments Chest Pain Encounter Details Date Type Department Care Team (Late st Contact Info) Description 01/23/2019 8:41 AM POLE SHAVER - 01/23/2019 10:00 AM [facility] Emergency [facility] Emergency Department [address] [place] [address] Venkatesh Malone MD [address] [place] [address] # [place] [address] Chest pain, unspecified type (Primary Dx) Discharge Disposition: Discharge to home or self care Social History Tobacco Use Types Packs/Day Years Used Date Smoking Tobacco: Every Day Cigarettes Smokeless Tobacco: Never Alcohol Use Standard Drinks/Week Comments No 0 (1 standard drink = 0.6 oz pur e alcohol) Comments No Sex and Gender Information Value Date Recorded Sex Assigned at Not on file 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:46 AM POLE SHAVER Gender Identity Not on file Sexual Orientation Not on file documented as of this encounter Last Filed Vital Signs Vital Sign Reading Time Taken Comments Blood Pressure 124/89 01/23/2019 9:45 AM POLE SHAVER Pulse 70 01/23/2019 9:45 AM POLE SHAVER Temperature 37.4 ??C (99.4 ??F) 01/23/2019 8:55 AM CS T Respiratory Rate 20 01/23/2019 9:45 AM POLE SHAVER Oxygen Saturation 97% 01/23/2019 9:45 AM POLE SHAVER Inhaled Oxygen Concentration - - Weight 73.5 kg (162 lb) 01/23/2019 8:55 AM POLE SHAVER Height 149.9 cm (4' 11 ) 01/23/2019 8:55 AM POLE SHAVER Body Mass Index 32.72 01/23/2019 8:55 AM POLE SHAVER documented in this encounter Discharge Instructions * Discharge Instructions* Venkatesh Malone MD - 01/23/2019 9:45 AM POLE SHAVER Get your outpatient stress test and see Dr. Parker afterwards, return for worsening symptoms, stopsmoking SHAVER * Attachments The following attachments cannot be sent through Care Everywhere. * Chest Pain (AfterCare(R) Instructions(ER/ED)) (Micronesian) documented in this encounter Medications at Time [...] 0 nebivolol (BYSTOLIC) 10 mg tablet Take 1 tablet (10 mg total) by mouth 2 (two) times a day. 60 tablet 5 01/16/2019 9 neomycin-polymyxi n-dexamethasone (MAXITROL) 3.5mg/mL-10,000 unit/mL-0.1 % ophthalmic [...] 0 spironolactone (ALDACTONE) 25 mg tablet Take 1 tablet (25 mg total) by mouth daily. 30 tablet 5 01/16/2019 9 varenicline (CHANTIX JAIME) 0.5 mg (11)- [...] documented in this encounter ED Notes * Elo Goss RN - 01/23/2019 8:57 AM CST Pt also complains of BP being low. Pts BP 152/95 upon arrival to ED. SHAVER * Elo Goss RN - 01/23/2019 8:53 AM CST Pt complains of chest pressure that started yesterday. Pt states she has been SOB. Pt states she was having chest pain yesterday but none now. Ptstarted taking spirolactone yesterday. Pt denies any nausea. SHAVER * Venkatesh Malone MD - 01/23/2019 8:48 AM CST HPI No chief complaint on file. Patient is a 53-year-old female, history of hypertension, smoker, presents emergency room complaining of chest pressure/nonradiating since yesterday. Patient denies any family history of heart disease. No shortness of breath cough fevers or chills. No nausea vomiting diarrhea or diaphoresis. No abdominal pain or urinary symptoms. There is no aggravating or alleviating factors. There is no other complaints of further review of symptoms negative Patient History Patient Active Problem List Diagnosis Date Noted ??? Other fatigue 01/16/2019 ??? Smoking trying to quit 01/16/2019 ??? Seizure-like activity (CMS/HCC) 09/19/2018 ??? Brain mass 09/19/2018 ??? Breast cancer screening 05/13/2018 ??? Shaking 05/13/2018 ??? Ptosis of eyelid 02/14/2018 ??? Painful orthopaedic hardware (CMS/HCC) 01/19/2018 ??? Right ankle pain 01/19/2018 ??? Obstructive sleep apnea syndrome 09/08/2017 ??? Abdominal hernia 10/28/2016 Class: Chronic ??? Skin lesion 11/27/2015 Class: Chronic ??? Fibromyalgia 10/07/2015 Class: Chronic ??? Osteoporosis 09/30/2014 Class: Chronic ??? Elevated cortisol level (CMS/HCC) 09/10/2014 Class: Chronic ??? Obesity 05/27/2014 Class: Chronic ??? Hypertension 05/19/2014 Class: Chronic ??? Depression 04/06/2014 Class: Chronic ??? Goiter 04/06/2014 Class: Chronic ??? Insomnia 04/06/2014 Class: Chronic ??? Pain in shoulder 03/21/2014 Class: Chronic ??? Chronic cholecystitis 02/21/2014 Class: Chronic ??? Gastro-esophageal reflux disease without esophagitis 12/14/2013 ??? Osteopenia 06/18/2013 Class: Chronic ??? Umbilical hernia without obstruction or gangrene 06/08/2013 ??? Constipation 04/04/2013 ??? Disorder of pelvis 03/05/2013 Class: Chronic ??? Fibrositis 03/05/2013 Class: Chronic ??? Diverticulosis 01/24/2013 ??? Ventral hernia without obstruction or gangrene 01/24/2013 ??? Abdominal pain 01/24/2013 ??? Diverticulosis of intestine without perforation or abscess without bleeding 01/24/2013 ??? Vitamin D deficiency disease 10/26/2012 Class: Chronic ??? Episodic tension-type headache 04/24/2012 Class: Chronic ??? Atypical migraine 04/24/2012 Class: Chronic ??? 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 Lumbago 12/21/2011 Class: Chronic ??? Pain in female pelvis 09/26/2008 Class: Chronic Past Medical History: Diagnosis Date ??? Disorder [...] Alcohol use: No ??? Drug use: No Social History Social History Narrative History of Domenstic Violence: y Review of Systems Review of Systems All other systems reviewed and are negative. Physical Exam ED Triage Vitals Temp Pulse Resp BP SpO2 -- -- -- -- -- Temp src Heart Rate Source Patient Position BP Location FiO2 (%) -- -- -- -- -- Physical Exam Constitutional: She is oriented to person, place, and time. She appears well- developed and well-nourished. No distress. HENT: Head: Normocephalic and atraumatic. Right Ear: External ear normal. Left Ear: External ear normal. Mouth/Throat: Oropharynx is clear and moist. Eyes: Pupils are equal, round, and reactive to light. Conjunctivae and EOM are normal. Neck: Normal range of motion. Neck supple. Cardiovascular: Normal rate, regular rhythm, normal heart sounds and intact distal pulses. Pulmonary/Chest: Effort normal and breath sounds normal. No respiratory distress. Abdominal: Soft. Bowel sounds are normal. She exhibits no distension. There is no tenderness. Thereis no guarding. Musculoskeletal: Normal range of motion. She exhibits no edema. Neurological: She is alert and oriented to person, place, and time. Skin: Skin is warm and dry. Capillary refill takes less than 2 seconds. She is not diaphoretic. Psychiatric: She has a normal mood and affect. Nursing note and vitals reviewed. [facility] ED Course as of Jan 24 944 Time: 01/23 942 Comment: Spoke with primary physician, will discharge and patient to arrange outpatient chemical stress test, to follow up with Dr. Parker, patient aware and agrees By: Venkatesh Malone MD No diagnosis found. Venkatesh Malone MD 01/23/19943 SHAVER documented in this encounter Plan of Treatment Not on file documented as of this encounter Procedures Procedure Name Priority Date/Time Associated Diagnosis Comments XR CHEST PA LATERAL 2 VIEWS ED 01/23/2019 9:21 AM POLE SHAVER EGFR STAT 01/23/2019 9:03 AM POLE SHAVER DIFFERENTIAL AUTO STAT 01/23/2019 9:0 3 AM POLE SHAVER PRO B-TYPE NATRIURETIC PEPTIDE STAT 01/23/2019 9:03 AM POLE SHAVER CBC WITH AUTO DIFFERENTIAL STAT 01/23/2019 9:03 AM POLE SHAVER APTT STAT 01/23/2019 9:03 AM POLE SHAVER PROTIME-INR STAT 01/23/2019 9:03 AM POLE SHAVER TROPONIN T Timed 01/23/2019 9:03 AM POLE SHAVER COMPREHENSIVE METABOLIC PANEL STAT 01/23/2019 9:03 AM POLE SHAVER ECG 12-LEAD STAT 01/23/2019 8:49 AM POLE SHAVER documented in this encounter Results * XR Chest Pa Lateral 2 Vw (01/23/2019 9:21 AM POLE SHAVER) Anatomical Region Laterality Modality Body, Chest N/A Computed Radiogr aphy 01/23/2019 9:22 AM POLE SHAVER Impressions 01/23/2019 9:24 AM POLE SHAVER NO ACTIVE DISEASE. Electronically signed by: Alex Baptiste M.D. Narrative 01/23/2019 9:24 AM POLE SHAVER XR CHEST PA LATERAL 2 VIEWS HISTORY: Chest pain COMPARISON: 08/15/2018 FINDINGS: Heart size remains normal. ??The right hemidiaphragm is elevated slightly greater than one intercostal space above the left as before. ??Lungs are clear. ??Old granulomatous disease is present. There are clips in the right upper quadrant. Procedure Note Alex Baptiste MD - 01/23/2019 XR CHEST PA LATERAL 2 VIEWS HISTORY: Chest pain COMPARISON: 08/15/2018 FINDINGS: Heart size remains normal. The right hemidiaphragm is elevated slightly greater than one intercostal space above the left as before. Lungs are clear. Old granulomatous disease is present. There are clips in the right upper quadrant. IMPRESSION: NO ACTIVE DISEASE. Electronically signed by: Alex Baptiste M.D. Venkatesh Malone MD IMG XR PROCEDURES Final Resul t * eGFR (01/23/2019 9:03 AM POLE SHAVER) eGFR 104 mL/min/1.7 3 m2 [facility] ([place]) Comment: Interpretive Data Reference Interval Normal ?>/= 90 mL/min/1.73m2 Mildly decreased* ? 60 - 89 mL/min/1.73m2 Mildly to moderately decreased ?45 - 59 mL/min/1.73m2 Moderately to severely decreased ??30 - 44 mL/min/1.73m2 Severely decreased ?15 - 29 mL/min/1.73m2 Kidney Failure ?< 15 ??mL/min/1.73m2 *Relative to young adult level If -Estonian multiply value by 1.16. Estimated glomerular filtration [...] was last reviewed 2016. Blood specimen (specimen) 01/23/2019 9:03 AM POLE SHAVER 01/23/2019 9:09 AM POLE SHAVER Narrative [facility] ([place]) - 01/23/2019 9:28 AM POLE SHAVER us Venkatesh Malone MD LAB BLOOD ORDERABLES Final Re sult [facility] ([place]) 1 [facility] Department [place] [address] * Differential, auto (01/23/2019 9:03 AM POLE SHAVER) Neutrophil abs 3.9 1.7 - 6.5 K/cumm [facility] ([place]) Imm gran abs 0.0 0.0 - 0.1 K/cumm [facility] ([place]) Lymphocyte abs 3.0 0.8 - 3.3 K/cumm [facility] ([place]) Monocyte abs 0.5 0.2 - 0.8 K/cumm [facility] ([place]) Eosinophil abs 0.2 0.0 - 0.5 K/cumm [facility] ([place]) Basophil abs 0.1 0.0 - 0.1 K/cumm [facility] ([place]) Neutrophil pct 51.2 % [facility] ([place]) Comment: Interpretive [...] was last revised on 2018. Lymphocyte pct 38.9 % [facility] ([place]) Comment: Interpretive Data Percent cell count reference ranges are not reported, since discordance with absolute values may lead to misinterpretation of CBC data. Current Interpretive Data was last revised on 2018. Monocyte pct 6.2 % [facility] ([place]) Comment: Interpretive Data Percent cell count reference ranges are not reported, since discordance with absolute values may lead to misinterpretation of CBC data. Current Interpretive Data was last revised on 2018. Eosinophil pct 2.6 % [facility] ([place]) Comment: Interpretive Data Percent cell count reference ranges are not reported, since discordance with absolute values may lead to misinterpretation of CBC data. Current Interpretive Data was last revised on 2018. Basophil pct 0.8 % [facility] ([place]) Comment: Interpretive Data Percent cell count reference ranges are not reported, since discordance with absolute values may lead to misinterpretation of CBC data. Current Interpretive Data was last revised on 2018. Blood specimen (specimen) 01/23/2019 9:03 AM POLE SHAVER 01/23/2019 9:09 AM POLE SHAVER Narrative [facility] ([place]) - 01/23/2019 9:11 AM POLE SHAVER us Venkatesh Malone MD LAB BLOOD ORDERABLES Final Re sult [facility] ([place]) 1 [facility] Department [place] [address] * Troponin T (01/23/2019 9:03 AM POLE SHAVER) Troponin T <0.01 0.00 - 0.01 ng/mL [facility] ([place]) Comment: Interpretive Data Reference ranges for children <18 years of age have not been established. - > or = 18 years: Serial determinations are recommended for the diagnosis of myocardial infarction. ??Temporal rise and fall are consistent with myocardial infarction when at least one value is above the 99th percentile upper reference limit for troponin assay. ??Journal of the [place] College [employer] 2012;60:1581-98. Current Interpretive Data Last Revised Date: 2018. Blood specimen (specimen) 01/23/2019 9:03 AM POLE SHAVER 01/23/2019 9:09 AM POLE SHAVER Narrative [facility] ([place]) - 01/23/2019 9:31 AM POLE SHAVER Venkatesh Malone MD LAB BLOOD ORDERABLES Final Re sult Performing Organization Address [facility]/ZIP Co de Phone Number [facility] ([place]) 1 [facility] Department [place] [address] * Protime-INR (01/23/2019 9:03 AM POLE SHAVER) PT 10.9 9.5 - 13.0 sec [facility] ([place]) INR 0.96 0.90 - 1.20 [facility] ([place]) Comment: Interpretive Data Recommended ranges for Protime INR: 2.0 - 3.0 Most indications for Warfarin therapy (e.g. Treatment of DVT, PE, bioprosthetic valve replacement, prophylaxis venous thrombosis, atrial fibrillation). 2.5 - 3.5 Mechanical mitral valve or dual mechanical mitral and Aortic valve replacement. Current Interpretive Data was last revised on 2015. Blood specimen (specimen) 01/23/2019 9:03 AM POLE SHAVER 01/23/2019 9:09 AM POLE SHAVER Narrative [facility] ([place]) - 01/23/2019 9:19 AM POLE SHAVER Venkatesh Malone MD LAB BLOOD ORDERABLES Final Re sult Performing Organization Address [facility]/ZIP Co de Phone Number [facility] ([place]) 1 [facility] Department [place] [address] * aPTT (01/23/2019 9:03 AM POLE SHAVER) aPTT 33.6 25.0 - 37.0 sec [facility] ([place]) Blood specimen (specimen) 01/23/2019 9:03 AM POLE SHAVER 01/23/2019 9:09 AM POLE SHAVER Narrative [facility] ([place]) - 01/23/2019 9:21 AM POLE SHAVER us Venkatesh Malone MD LAB BLOOD ORDERABLES Final Re sult [facility] ([place]) 1 [facility] Department [place] [address] * (ABNORMAL) Comprehensive metabolic panel (01/23/2019 9:03 AM POLE SHAVER) Sodium 139 135 - 145 mmol/L [facility] ([place]) Potassium, pl 3.9 3.3 - 4.9 mmol/L [facility] ([place]) Chloride 106 97 - 110 mmol/L [facility] ([place]) CO2 23 22 - 32 mmol/L [facility] ([place]) Anion gap 10 2 - 15 mmol/L [facility] ([place]) BUN 19 8 - 25 mg/dL [facility] ([place]) Creatinine 0.59(L) 0.60 - 1.10 mg/dL [facility] ([place]) Glucose 102 70 - 199 mg/dL [facility] ([place]) Comment: Interpretive Data Fasting glucose >/= [...] interpretive data was last revised 2017. Calcium 9.2 8.5 - 10.3 mg/dL [facility] ([place]) Bilirubin, total 0.4 0.1 - 1.2 mg/dL [facility] ([place]) Protein, pl 6.9 6.5 - 8.5 g/dL [facility] ([place]) Albumin 4.2 3.5 - 5.0 g/dL [facility] ([place]) Alk phos 113 40 - 130 Units/L [facility] ([place]) ALT 18 7 - 45 Units/L [facility] ([place]) AST 17 10 - 45 Units/L [facility] ([place]) Blood specimen (specimen) 01/23/2019 9:03 AM POLE SHAVER 01/23/2019 9:09 AM POLE SHAVER Narrative [facility] ([place]) - 01/23/2019 9:28 AM POLE SHAVER us Venkatesh Malone MD LAB BLOOD ORDERABLES Final Re sult [facility] ([place]) 1 [facility] Department [place] [address] * CBC with auto differential (01/23/2019 9:03 AM POLE SHAVER) WBC 7.6 3.8 - 9.9 K/cumm [facility] ([place]) Hgb 13.7 11.9 - 15.5 g/dL [facility] ([place]) Hct 40.2 35.6 - 45.5 % [facility] ([place]) Plt 267 150 - 400 K/cumm [facility] ([place]) MPV 9.8 9.1 - 12.3 fL [facility] ([place]) RBC 4.51 3.90 - 5.20 M/cumm [facility] ([place]) MCV 89.1 81.3 - 96.4 fL [facility] ([place]) MCH 30.4 27.1 - 33.3 pg [facility] ([place]) MCHC 34.1 32.3 - 35.7 g/dL [facility] ([place]) RDW CV 13.1 11.1 - 14.9 % [facility] ([place]) RDW SD 42.8 35.7 - 48.1 fL [facility] ([place]) NRBC abs 0.00 0.00 - 0.01 K/cumm [facility] ([place]) Blood specimen (specimen) 01/23/2019 9:03 AM POLE SHAVER 01/23/2019 9:09 AM POLE SHAVER Narrative [facility] ([place]) - 01/23/2019 9:11 AM POLE SHAVER Venkatesh Malone MD LAB BLOOD ORDERABLES Final Re sult [facility] ([place]) 1 [facility] Department [place] [address] * Pro B-type natriuretic peptide (01/23/2019 9:03 AM POLE SHAVER) NT-proBNP 50 <=300 pg/mL [facility] ([place]) Comment: Interpretive Comments: A. Dyspnea in Acute Care Setting All Ages: ??< 300 pg/ml, acute heart failure unlikely < 50 yrs: ??> or = 300 pg/ml and < or = 450 pg/ml, further investigation warranted ??> 450 pg/ml, acute heart failure likely 50 - 74 yrs > or = 300 pg/ml and < or = 900 pg/ml, further investigation warranted ??> 900 pg/ml, acute heart failure likely > or = 75 yrs 450 - 1800 pg/ml, further investigation warranted ??> 1800 pg/ml, acute heart failure likely B. Non-acute Setting < 75 yrs ??< 125 pg/ml, rules out heart failure ??> or = 125 pg/ml, further investigation warranted > or = 75 yrs < 450 pg/ml, rules out heart failure ??> or = 450 pg/ml, further investigation warranted Knowledge of each individual patient's NT-proBNP range may be more useful than using similar cut-points for every patient. Please note that marked elevations in NT-proBNP levels may be observed in state other than Left Ventricular Congestive Failure, including: acute coronary syndromes, right heart strain/failure (including pulmonary embolism and cor pulmonale), critial illness, renal failure, as well as advanced age. References: 1. Ana BOLANOS et.al. Eur Heart J. 2006:27:330-337. 2. Estee RW, Deepak GNUYỄN. J. AM Onel Cardiol: Cardiovasc Imag. 2009;2: 216- 225. Interpretive Data Last Revised Date: 2018. Blood specimen (specimen) 01/23/2019 9:03 AM POLE SHAVER 01/23/2019 9:09 AM POLE SHAVER Narrative [facility] ([place]) - 01/23/2019 9:41 AM POLE SHAVER Venkatesh Malone MD LAB BLOOD ORDERABLES Final Re sult Performing Organization Address [facility] Co de Phone Number [facility] ([place]) 1 [facility] [place] [address] * ECG 12 lead (01/23/2019 8:49 AM POLE SHAVER) 01/23/2019 8:49 AM POLE SHAVER Narrative [facility] - 01/23/2019 1:10 PM POLE SHAVER Vent Rate: 73 bpm RR Interval: 813 msec IA Interval: 175 msec QRS Duration: 84 msec QT Interval: 345 msec QTC Interval: 371 msec P-R-T [place]: 37 - -12 - -11 degrees SINUS RHYTHM POSSIBLE RIGHT VENTRICULAR CONDUCTION DELAY [RSR (QR) IN V1/V2] MINIMAL VOLTAGE CRITERIA FOR LVH, CONSIDER NORMAL VARIANT [MEETS CRITERIA IN ONE OF: R(aVL), S(V1), R(V5), R(V5/V6)+S(V1)] SEPTAL MYOCARDIAL INFARCTION [40+ ms Q WAVE IN V1/V2], OF INDETERMINATE AGE Compared to prior EKG, no significant change Electronically Signed By: Dr Yony Rehman Venkatesh Malone MD ECG ORDERABLES Final Result Performing Organization Address [facility] Co de Phone Number [facility] documented in this encounter Visit Diagnoses Diagnosis Chest pain, unspecified type- Primary documented in this encounter Care Teams Chief Telephone Operator Relationship Specialty Start Date End Date Mendoza Parker MD PCP - General 02/18/17 06/12/20 documented as of this encounter
--- OUTSIDE RECORDS SUMMARY | 2024-11-19 04:52 | XMS_ITS | Encounter Summary ---
Author Organization [facility] Medical Group Address [address] [place] [address] Care Team Providers Care Manager Of Network Name Role Phone Mendoza Parker MD Primary Care Provider +1- [phone] Reason for Visit * Reason Onset Date Comments Treatment Plan Update 03/16/2019 Encounter Details Date Type Department Care Team (Late st Contact Info) Description 03/16/2019 Telephone [facility] [address] [place] [phone] Mendoza Parker MD [address] [address] Treatment Plan Update Social History Tobacco Use Types Packs/Day Years Used Date Smoking Tobacco: Every Day Cigarettes Smokeless Tobacco: Never Alcohol Use Standard Drinks/Week Comments No 0 (1 standard drink = 0.6 oz pur e alcohol) Comments No Sex and Gender Information Value Date Recorded Sex Assigned at Not on file 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:46 AM 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 Pt's bp is running 117/79 and she is feeling good. documented in this encounter Plan of Treatment Not on file documented as of this encounter Visit Diagnoses Not on filedocumented in this encounter Care Teams Manager Of Network Relationship Specialty Start Date End Date Mendoza Parker MD PCP - General 02/18/17 06/12/20 documented as of this encounter
--- OUTSIDE RECORDS SUMMARY | 2024-11-19 04:52 | XMS_ITS | Encounter Summary ---
Author Organization [facility] Medical Group Address [address] [place] [address] Care Team Providers Care Acid Loader Name Role Phone Mendoza Parker MD Primary Care Provider +1- [phone] Encounter Details Date Type Department Care Team (Late st Contact Info) Description 02/01/2019 Telephone [facility] [address] [place] [phone] Mendoza Parker MD [address] [address] Social History Tobacco Use Types Packs/Day Years Used Date Smoking Tobacco: Every Day Cigarettes Smokeless Tobacco: Never Alcohol Use Standard Drinks/Week Comments No 0 (1 standard drink = 0.6 oz pur e alcohol) Comments No Sex and Gender Information Value Date Recorded Sex Assigned at Not on file 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 Pt telling [facility] she has stopped taking the spirnolactone as she is just too tired. -asking for a different dose or a different medication altogether. 02-02-19 [facility] appt given. documented in this encounter Plan of Treatment Not on file documented as of this encounter Visit Diagnoses Not on filedocumented in this encounter Care Teams Acid Loader Relationship Specialty Start Date End Date Mendoza Parker MD PCP - General 02/18/17 06/12/20 documented as of this encounter
--- OUTSIDE RECORDS SUMMARY | 2024-11-19 04:52 | XMS_ITS | Encounter Summary ---
Author Organization [facility] Healthcare Address [facility] [place] [address] Care Team Providers Care Fish Rod Maker Name Role Phone Mendoza Parker MD Primary Care Provider +1- [phone] Reason for Visit * Cardiology (Routine) - Closed Specialty Diagnoses / Procedures Referred By Contac t Referred To Contact Diagnoses Chest pain, unspecified type Procedures NM MPI SPECT (Rest and/or Stress) Multiple Studies Mendoza Parker MD Phone: tel: fax: [address] [address] Referral ID Status Reason Start Date Expiration Date Visits Re quested Visits Authorized [id number] Closed 01/23/2019 08/03/2020 5 5 Encounter Details Date Type Department Care Team (Late st Contact Info) Description 01/31/2019 7:22 AM CDT - 01/31/2019 11:59 PM CDT Hospital Encounter [facility] Cardiology [address] [place] [address] Mendoza Parker MD [address] [place] [id number] Discharge Disposition: Discharge to home or self care Social History Tobacco Use Types Packs/Day Years Used Date Smoking Tobacco: Every Day Cigarettes Smokeless Tobacco: Never Alcohol Use Standard Drinks/Week Comments No 0 (1 standard drink = 0.6 oz pur e alcohol) Comments No Sex and Gender Information Value Date Recorded Sex Assigned at Not on file 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:46 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 Gender Identity Not on file Sexual Orientation [...] Procedure Name Priority Date/Time Associated Diagnosis Comments STRESS TEST FOR DUAL READ Schedule Routine, Read Routine (OP Routine) 01/31/2019 10:14 AM CDT Chest pain, unspecified type NM MPI SPECT (REST AND/OR STRESS) MULTIPLE STUDIES Schedule Routine, Read Routine (OP Routine) 01/31/2019 10:14 AM CDT Chest pain, unspecified type documented in this encounter Visit Diagnoses Not on filedocumented in this encounter Administered Medications Inactive Administered Medications - up to 3 most recent administrations Medication Order MAR Action Action Date Dose Rate Site ondansetron (ZOFRAN) injection 4 mg 4 mg, intravenous, Administer over 2 Minutes, Once, On Tue01/31/19 at 1030, For 1 dose, Intra-Procedure (CV) Given 01/31/2019 9:51 AM CDT 4 mg regadenoson (LEXISCAN) 0.4 mg/5 mL injection 0.4 mg 0.4 mg, intravenous, Once, On Tue01/31/19 at 1030, For 1 dose, Intra-Procedure (CV), Administer IV push over 10 seconds., Indications: Myocardial Perfusion Imaging AdjunctIndications:Myocardial Perfusion Imaging Adjunct Given 01/31/2019 9:46 AM CDT 0.4 mg documented in this encounter Care Teams Fish Rod Maker Relationship Specialty Start Date End Date Mendoza Parker MD PCP - General 02/18/17 06/12/20 documented as of this encounter
--- OUTSIDE RECORDS SUMMARY | 2024-11-19 04:52 | XMS_ITS | Encounter Summary ---
Author Organization [facility] Medical Group Address [address] [facility] [address] [place] [address] Care Team Providers Care Plastic Products Sales Representative Name Role Phone Mendoza Parekr MD Primary Care Provider +1- [phone] Encounter Details Date Type Department Care Team (Late st Contact Info) Description 05/15/2019 2:30 PM CDT Office Visit [facility] [address] [facility] [address] [place] [address] Corina Zambrano, [facility] [address] [facility] [address] [place] [address] Obstructive sleep apnea syndrome (Primary Dx); Hypersomnia; Obesity (BMI 30-39.9) Social History Tobacco Use Types Packs/Day Years Used Date Smoking Tobacco: Every Day Cigarettes Smokeless Tobacco: Never Alcohol Use Standard Drinks/Week Comments No 0 (1 standard drink = 0.6 oz pur e alcohol) Comments No Sex and Gender Information Value Date Recorded Sex Assigned at Not on file 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 Gender Identity Not on file Sexual Orientation Not on file documented as of this encounter Last Filed Vital Signs Vital Sign Reading Time Taken Comments Blood Pressure 143/100 05/15/2019 3:02 PM CDT Pulse 71 05/15/2019 3:02 PM CDT Temperature - - Respiratory Rate - - Oxygen Saturation - - Inhaled Oxygen Concentration - - Weight 74.8 kg (164 lb 12.8 oz) 05/15/2019 3:02 PM CDT Height 149.9 cm (4' 11 ) 05/15/2019 3:02 PM CDT Body Mass Index 33.29 05/15/2019 3:02 PM CDT documented in this encounter Ordered Prescriptions Prescription Sig Dispense Quantity Refills Last Filled Start Date End Date zolpidem (AMBIEN) 10 mg tabletIndications: Sleep-Onset Insomnia Take 1 tablet (10 mg total) by mouth nightly as needed for sleep 30 tablet 5 05/15/2019 9 documented in this encounter Progress Notes * Corina Zambrano NP - 05/15/2019 2:30 PM CDT Chief complaints: Snoring, difficulty falling asleep, unrefereshing sleep and hypersomnia HPI of the initial visit: Ms Betancur presents for consultation. She has been referred by her home health travel pt KIM Curry for opinion regarding her above symptoms. She is a very pleasant 52-year-old reports that she goes to bed between 10 and 11:00 p.m.. Takes several hours to fall asleep she falls asleep between 4 and 5:00 a.m. consistently. She then awakens between 9 and 10:00 a.m.. Endorses symptoms of loud snoring, restless sleep. Denies awakening gasping for air, stop witnessed stoppage of breath while sleeping, talkingsleep, walking sleep, creepy crawly feeling legs, leg jerks, vivid dreams and nighttime wheezing. Awakens rarely at night. Awakens with a perception of non refreshing sleep. Feels tired and fatigued in the daytime. Hollywood Sleepiness Scale score is 0. Does not take daytime naps he denies symptoms of sleep paralysis and hypnagogic hallucination but does endorse occasional cataplexy tic-like symptoms when she is angry. Patient was diagnosed obstructive sleep apnea syndrome several years ago and was positive on positive pressure therapy. Patient has been noncompliant with the above. The primary reason is that she feels that the Continuous positive airway pressure does not help her. She does not feel any significant change to her perception of sleep quality. Recently she was having chest pain. Given noncompliance, and chest pain symptoms, patient was recommended to have assessment for sleepdisorder breathing. 1. NEO. Pt reports she has been more compliant to the therapy. No change in her sleep schedule. 2. Pt reports better optimized control of her daytime sleepiness. The pt's Hollywood Sleepiness Scale(ESS) is: 0 (was 0 during the last visit) 3. Obesity. 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 It has helped. Past Medical History: Diagnosis Date ??? Disorder [...] file Gets together: Not on file Attends moravian service: Not on file Active member of [...] dysphoric mood. The patient is nervous/anxious. BP 143/100 Pulse 71 Ht 149.9 cm (4' 11 ) Wt 74.8 kg (164 lb 12.8 oz) BMI 33.29 kg/m?? Physical Exam Constitutional: She appears well-developed and well-nourished. HENT: Head: Normocephalic and atraumatic. Mallampati airway class III Eyes: Pupils are equal, round, and reactive to light. Conjunctivae are normal. Neck: Normal range of motion. Neck supple. Cardiovascular: Normal rate, regular rhythm and intact distal pulses. Pulmonary/Chest: Effort normal and breath sounds normal. Abdominal: Soft. Bowel sounds are normal. Musculoskeletal: Normal range of motion. Neurological: ALERT AND ORIENTED TO TIME PLACE AND PERSON. Skin: Skin is warm and dry. Psychiatric: She has a normal mood and affect. AP 1. Obstructive sleep apnea: Endorses symptoms suggestive of obstructive sleep apnea syndrome. Patient has an established diagnosis of obstructive sleep apnea syndrome. Her sleep study 2014 reveal evidence of moderate AHI with an index of 15.0. She did not bring her chip today. The physiology of sleep disordered breathing and [...] Continue Ambien 10 mg at bedtime p.r.n. With melatonin 0.5mg 5 hours before sleep time. 3. Obesity: The effects of obesity obstructive sleep apnea syndrome and other morbidities was discussed. Recommended diet and exercise in losing weight. Patient verbalizes an understanding. Will follow up in 6 months documented in this encounter Plan of Treatment Not on file documented as of this encounter Visit Diagnoses Diagnosis Obstructive sleep apnea syndrome- Primary Obstructive sleep apnea (adult) (pediatric) Hypersomnia Hypersomnia, unspecified Obesity (BMI 30-39.9) documented in this encounter Discontinued Medications Medication Sig Discontinue Reason Start Date End Da te zolpidem (AMBIEN) 10 mg tabletIndications:Sleep- Onset Insomnia Take 1 tablet (10 mg total) by mouth nightly as needed for sleep. Reorder 10/23/2018 05/15/2019 documented as of this encounter Care Teams Plastic Products Sales Representative Relationship Specialty Start Date End Date Mendoza Parker MD PCP - General 02/18/17 06/12/20 documented as of this encounter
--- OUTSIDE RECORDS SUMMARY | 2024-11-19 04:52 | XMS_ITS | Encounter Summary ---
Author Organization [facility] Medical Group Address [address] [facility] [address] [place] [address] Care Team Providers Care Maintenance Supervisor 2Nd Shift Name Role Phone Mendoza Parker MD Primary Care Provider +1- [phone] Reason for Referral * Cardiology (Routine) - Closed Specialty Diagnoses / Procedures Referred By Contac t Referred To Contact Diagnoses Chest pain, unspecified type Procedures NM MPI SPECT (Rest and/or Stress) Multiple Studies Mendoza Parker MD Phone: tel: fax: [address] [address] Referral ID Status Reason Start Date Expiration Date Visits Re quested Visits Authorized [id number] Closed 01/23/2019 08/03/2020 5 5 CTIONAL SURVEY DRAFTER Reason for Visit * Reason Onset Date Comments spirnolactone? 01/23/2019 Encounter Details Date Type Department Care Team (Late st Contact Info) Description 01/23/2019 Telephone [facility] [address] [place] [phone] Mendoza Parker MD [address] [address] spirnolactone? Social History Tobacco Use Types Packs/Day Years Used Date Smoking Tobacco: Every Day Cigarettes Smokeless Tobacco: Never Alcohol Use Standard Drinks/Week Comments No 0 (1 standard drink = 0.6 oz pur e alcohol) Comments No Sex and Gender Information Value Date Recorded Sex Assigned at Not on file 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:46 AM DIRECTIONAL SURVEY DRAFTER Gender Identity Not on file Sexual Orientation Not on file documented as of this encounter Miscellaneous Notes * Telephone Encounter - Marguerite Scales LPN - 01/23/2019 1:56 PM CST Shivani [facility] and I gave her this message. She voiced understanding. She is going to call [facility] and find out if they will accept her insurance. She will call us back and let us know/tyk CTIONAL SURVEY DRAFTER * Telephone Encounter - Marguerite Scales LPN - 01/23/2019 1:50 PM CST Message shown to Dr. Keith Parker wants Shivani to stay on the SPIRONOLACTONE Also would like to ask her or Steven if they would like to have the STRESS TEST done at [facility] since [facility] can' t get This done until 01/31/19 lmom for Steven or Shivani to [facility] to the office. CTIONAL SURVEY DRAFTER * Telephone Encounter - Adia Juan MA - 01/23/2019 11:43 AM DIRECTIONAL SURVEY DRAFTER letitia stress test has been ordered and sent to [facility] the soonest they can get her in is 01-31-19.Patient has been called and made aware of the time CTIONAL SURVEY DRAFTER CTIONAL SURVEY DRAFTER CTIONAL SURVEY DRAFTER * Telephone Encounter - Marguerite Scales LPN - 01/23/2019 10:49 AM CST I called Steven and Shivani back Shivani stated that she took one of her SPIRONOLACTONE 25 MG tablet and started having CHEST TIGHTNESS and he BLOOD PRESSURE DROPPED LOW She reported BP readings of: 114/68 122/67 104/60 124/76 120/69 She said that she is VERY SENSITIVE to certain medications. To Dr. Parker to update and advise Thank you/oliver CTIONAL SURVEY DRAFTER * Telephone Encounter - Marguerite Scales LPN - 01/23/2019 10:47 AM CST To Admin Please send an ORDER for CHEMICAL STRESS TEST to [facility] DX: CHEST PAIN Thank you/oliver CTIONAL SURVEY DRAFTER * Telephone Encounter - Mary Carmen - 01/23/2019 10:16 AM CST Pt was just in ER (ER dr did talk to [facility]) Spouse Steven asking [facility] if the pt should remain on this medicine the ER dr gave. -per Steven the medication is spirnolactone. -advised [facility] appt but spouse wants a note sent asking what the pt is to do TODAY. CBN: To Steven at [phone] CTIONAL SURVEY DRAFTER documented in this encounter Plan of Treatment Not on file documented as of this encounter Results * NM MPI SPECT (Rest and/or Stress) [...] Varun Abernathy Jr., M.D. Mendoza Parker MD [facility] PROCEDURES Edited documented in this encounter Visit Diagnoses Diagnosis Chest pain, unspecified type- Primary Chest pain, unspecified type documented in this encounter Care Teams Maintenance Supervisor 2Nd Shift Relationship Specialty Start Date End Date Mendoza Parker MD PCP - General 02/18/17 06/12/20 documented as of this encounter
--- OUTSIDE RECORDS SUMMARY | 2024-11-19 04:52 | XMS_ITS | Encounter Summary ---
Author Organization [facility] Medical [facility] Address [address] [facility] [address] [place] [address] Care Team Providers Care Quality Control Expert Name Role Phone Mendoza Parker MD Primary Care Provider +1- [phone] Reason for Visit * Reason Comments Urinary Symptom Encounter Details Date Type Department Care Team (Late st Contact Info) Description 05/03/2019 11:20 AM CDT Office Visit [facility] [address] [place] [address] Mendoza Parker MD [address] [address] Acute cystitis without hematuria (Primary Dx); Essential hypertension Social History Tobacco Use Types Packs/Day Years Used Date Smoking Tobacco: Every Day Cigarettes Smokeless Tobacco: Never Alcohol Use Standard Drinks/Week Comments No 0 (1 standard drink = 0.6 oz pur e alcohol) Comments No Sex and Gender Information Value Date Recorded Sex Assigned at Not on file 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 Gender Identity Not on file Sexual Orientation Not on file documented as of this encounter Last Filed Vital Signs Vital Sign Reading Time Taken Comments Blood Pressure 136/84 05/03/2019 11:14 AM CDT Pulse 84 05/03/2019 11:14 AM CDT Temperature 36.9 ??C (98.4 ??F) 05/03/2019 11:14 AM C DT Respiratory Rate 16 05/03/2019 11:14 AM CDT Oxygen Saturation 96% 05/03/2019 11:14 AM CDT Inhaled Oxygen Concentration - - Weight 74.4 kg (164 lb) 05/03/2019 11:14 AM CDT Height 152.4 cm (5') 05/03/2019 11:14 AM CDT Body Mass Index 32.03 05/03/2019 11:14 AM CDT documented in this encounter Ordered Prescriptions Prescription Sig Dispense Quantity Refills Last Filled Start Date End Date hyoscyamine (LEVSIN) 0.125 mg tabletIndications: Urinary Incontinence Take 1 tablet (0.125 mg total) by mouth every 4 (four) hours as needed for cramping 16 tablet 1 05/03/2019 0 nitrofurantoin monohydrate (MACROBID) 100 mg capsule Take 1 capsule (100 mg total) by mouth 2 (two) times a day for 7 days 14 capsule 05/03/2019 9 documented in this encounter Progress Notes * Mendoza Parker MD - 05/03/2019 11:20 AM CDT Subjective/Objective Patient ID: Shivani Betancur is a 53 y.o. female. Chief Complaint Urinary Symptom Patient is here because of urinary tract problem she has multiple health problems.. Blood pressure was monitored cardiac vascular exam completed . Review of system completed please see assessment andplans regarding HPI Review of Systems Constitutional: Positive for fatigue. HENT: Negative. Gastrointestinal: Negative. Genitourinary: Positive for dysuria, frequency and urgency. Musculoskeletal: Positive for arthralgias and myalgias. History of fibromyalgia Skin: Negative. Hematological: Negative. Psychiatric/Behavioral: Negative. Physical Exam Constitutional: She is oriented to person, place, and time. She appears well- developed and well-nourished. HENT: Head: Normocephalic and atraumatic. Cardiovascular: Normal rate, regular rhythm, normal heart sounds and intact distal pulses. Pulmonary/Chest: Effort normal and breath sounds normal. Abdominal: Soft. Bowel sounds are normal. Musculoskeletal: Normal range of motion. Neurological: She is alert and oriented to person, place, and time. Skin: Skin is warm and dry. Psychiatric: She has a normal mood and affect. Her behavior is normal. Judgment and thought contentnormal. Nursing note and vitals reviewed. Assessment/Plan Diagnoses and all orders for this visit: Acute cystitis without hematuria (N30.00) (Primary) Assessment & Plan: Visit for 05/03/2019 patient complains of dysuria urgency frequency she also has some cramping in her back she has had back pain in the past. At this time patient will get a urinalysis and culture noantibiotics prescribed on this visit of 05/03 pending culture results. Orders: - Urinalysis reflex to microscopic and culture Urine; Future Essential hypertension (I10) Assessment & Plan: Hypertension remains controlled patient tolerating medications no changes in therapy Other orders - nitrofurantoin monohydrate (MACROBID) 100 mg capsule; Take 1 capsule (100 mg total) by mouth 2 (two) times a day for 7 days - hyoscyamine (LEVSIN) 0.125 mg tablet; Take 1 tablet (0.125 mg total) by mouth every 4 (four) hours as needed for cramping documented in this encounter Miscellaneous Notes * Assessment & Plan Note - Mendoza Parker MD - 05/26/2019 7:51 PM CDT Associated Problem(s): Essential hypertension Hypertension remains controlled patient tolerating medications no changes in therapy * Assessment & Plan Note - Mendoza Parker MD - 05/26/2019 7:49 PM CDT Associated Problem(s): Acute cystitis without hematuria Visit for 05/03/2019 patient complains of dysuria urgency frequency she also has some cramping in her back she has had back pain in the past. At this time patient will get a urinalysis and culture noantibiotics prescribed on this visit of 05/03 pending culture results. documented in this encounter Plan of Treatment Not on file documented as of this encounter Results * Urinalysis reflex to [...] CH Urobilinogen, ur <2.0 <2.0 mg/dL [facility] Nitrite, ur Negative Negative [facility] Leukocyte esterase, ur Negative Negative [facility] Urine 05/03/2019 12:1 6 PM CDT 05/03/2019 8:10 PM CDT Narrative [facility] - 05/03/2019 8:22 PM CDT Today 05-03-19 Urine pH is affected by diet, medications, systemic acid-base disturbances, and renal tubular function. ??pH may affect urinary stone formation. ??For example, urine pH below 6.0 may help reduce the tendency for calcium phosphate stones and pH greater than 6.0 may reduce the tendency for uric acid stone formation. Source: [employer] Last revised 12-01-2017 Mendoza Parker MD LAB MICROBIOLOGY - GENERAL ORDERABLES Final Result [facility] [address] Department [place] [address] documented in this encounter Visit Diagnoses Diagnosis Acute cystitis without hematuria- Primary Essential hypertension Unspecified essential hypertension Acute cystitis without hematuria documented in this encounter Care Teams Quality Control Expert Relationship Specialty Start Date End Date Mendoza Parker MD PCP - General 02/18/17 06/12/20 documented as of this encounter
--- OUTSIDE RECORDS SUMMARY | 2024-11-19 04:52 | XMS_ITS | Encounter Summary ---
Author Organization [facility] Healthcare Address [address] [place] [address] Care Team Providers Care Chair Spring Assembler Name Role Phone Mendoza Parker MD Primary Care Provider +1- [phone] Reason for Visit * Reason Comments OP Infusion prolia Encounter Details Date Type Department Care Team (Late st Contact Info) Description 05/07/2019 2:00 PM CDT Infusion [facility] [address] [facility] [facility] [address] [place] [id number] Age-related osteoporosis without current pathological fracture (Primary Dx); Osteoporosis without current pathological fracture, unspecified osteoporosis type Social History Tobacco Use Types Packs/Day Years Used Date Smoking Tobacco: Every Day Cigarettes Smokeless Tobacco: Never Alcohol Use Standard Drinks/Week Comments No 0 (1 standard drink = 0.6 oz pur e alcohol) Comments No Sex and Gender Information Value Date Recorded Sex Assigned at Not on file 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 Gender Identity Not on file Sexual Orientation Not on file documented as of this encounter Last Filed Vital Signs Vital Sign Reading Time Taken Comments Blood Pressure - - Pulse 74 05/07/2019 2:15 PM CDT Temperature 37.4 ??C (99.3 ??F) 05/07/2019 2:15 PM CD T Respiratory Rate - - Oxygen Saturation 99% 05/07/2019 2:15 PM CDT Inhaled Oxygen Concentration - - Weight 78 kg (172 lb) 05/07/2019 2:15 PM CDT Height 149.9 cm (4' 11 ) 05/07/2019 2:15 PM CDT Body Mass Index 34.74 05/07/2019 2:15 PM CDT documented in this encounter Nursing Notes * Estefania Olivo, RN - 05/07/2019 2:20 PM CDT Patient febrile with temperature of 99.3F. Patient also c/o not feeling well with abdominal pain. Patient has an active kidney infection s/p day 5 of antibiotics. Multiple attempts to reach [facility] ABURTO) with no response. Nursing decision made to NOT administer Prolia. Patient discharged home and instructed to contact her physician to reschedule appointment and complete course of antibiotics documented in this encounter Plan of Treatment Not on file documented as of this encounter Visit Diagnoses Diagnosis Age-related osteoporosis without current pathological fracture- Primary Osteoporosis without current pathological fracture, unspecified osteoporosis type documented in this encounter Orders Medications Ordered That Kamari ht Not Have Been Administered Count Last Ordered Date First Ordered Date denosumab (PROLIA) subcutane ous syringe 60 mg 1 05/07/2019 documented in this encounter Care Teams Chair Spring Assembler Relationship Specialty Start Date End Date Mendoza Parker MD PCP - General 02/18/17 06/12/20 documented as of this encounter
--- OUTSIDE RECORDS SUMMARY | 2024-11-19 04:52 | XMS_ITS | Encounter Summary ---
Author Organization [facility] Address [address] [address] Care Team Providers Care Gis Database Administrator Name Role Phone Mendoza Parker MD Primary Care Provider +1- [phone] Reason for Referral * Diagnostic Imaging (Routine) - Closed Specialty Diagnoses / Procedures Referred By Contac t Referred To Contact Diagnoses Left hand pain Procedures XR Hand Left 3+ Vw Richardson Shields II, PA Phone: tel: fax: Referral ID Status Reason Start Date Expiration Date Visits Re quested Visits Authorized [id number] Closed 03/07/2019 09/15/2020 1 1 Reason for Visit * Reason Comments Pain Encounter Details Date Type Department Care Team (Latest Contact Info) Description 03/07/2019 1:15 PM CDT Office Visit [facility] Orthopedics and Sports Medicine [address] [place] [id number] Richardson Shields II, PA [address] [place] [address] [address] [place] [address] Left hand pain (Primary Dx); Arthritis of carpometacarpal (CMC) joint of left thumb Social History Tobacco Use Types Packs/Day Years Used Date Smoking Tobacco: Every Day Cigarettes Smokeless Tobacco: Never Alcohol Use Standard Drinks/Week Comments No 0 (1 standard drink = 0.6 oz pur e alcohol) Comments No Sex and Gender Information Value Date Recorded Sex Assigned at Not on file 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 Gender Identity Not on file Sexual Orientation Not on file documented as of this encounter Last Filed Vital Signs Vital Sign Reading Time Taken Comments Blood Pressure 137/86 03/07/2019 1:30 PM CDT Pulse 79 03/07/2019 1:30 PM CDT Temperature - - Respiratory Rate - - Oxygen Saturation - - Inhaled Oxygen Concentration - - Weight 75 kg (165 lb 6.4 oz) 03/07/2019 1:30 PM CDT Height 152.4 cm (5') 03/07/2019 1:30 PM CDT Body Mass Index 32.3 03/07/2019 1:30 PM CDT documented in this encounter Progress Notes * Richardson Shields II, PA - 03/07/2019 1:15 PM CDT Images from the original note were not included. NEW PATIENT VISIT Subjective CHIEF COMPLAINT She had concerns including Pain of the Left Hand. HISTORY OF PRESENT ILLINESS Mrs. Betancur presents to the office today requesting examination of her left hand. She has been experiencing pain at the base of her left thumb for the past several months after she fell at home. She has difficulty firmly grasping objects with her left hand. Shivani has normal sensation in the left hand without numbness or paresthesias. Pain Assessment Pain Assessment: 0-10 Pain Score: 7 Pain Location: Hand Pain Orientation: Left Pain Descriptors: Sharp Pain Frequency: Constant/continuous Pain Onset: Ongoing Clinical Progression: Gradually worsening Aggravating Factors: Bending Result of Injury: No Work-Related Injury: No Patient's Stated Pain Goal: No pain Pain Interventions: Medication (See MAR), Massage, Splinting PAST MEDICAL HISTORY She has a past medical history [...] medication list which includes the following prescription(s): mglgirvbvfxvf-nnqpljx-alhnkjqk, atorvastatin, azelastine, calcium carbonate- vitamin d3, cyclobenzaprine, duloxetine dr,ecotrin low strength, estrace, hydrocodone-acetaminophen, isosorbide mononitrate er, lubiprostone, nebivolol, gcuefhjs-ipibegdzq-sgfciwajkjdrb, omeprazole, pen needle, diabetic, lyrica, spironolactone, and zolpidem. ALLERGIES She is allergic to ciprofloxacin; metronidazole; acetaminophen-codeine; codeine; and lisinopril. SOCIAL HISTORY She reports that she has been smoking. She has been smoking about 0.25 packs per day. She has neverused smokeless tobacco. She reports that she does not drink alcohol or use drugs. FAMILY HISTORY Family History Problem Relation Age of Onset [...] Coronary artery disease; ??? Stroke Other Stroke; REVIEW OF SYSTEMS Review of Systems Constitutional: Negative for activity change, appetite change, chills and fever. HENT: Negative for congestion, dental problem, ear pain, hearing loss and voice change. Eyes: Negative for pain and visual disturbance. Respiratory: Positive for apnea. Negative for cough, chest tightness and shortness of breath. Cardiovascular: Positive for leg swelling. Negative for chest pain and palpitations. Gastrointestinal: Negative for blood in stool, constipation, diarrhea, nausea and vomiting. Endocrine: Negative for cold intolerance and heat intolerance. Genitourinary: Negative for difficulty urinating and hematuria. Skin: Negative for color change, rash and wound. Allergic/Immunologic: Negative for environmental allergies. Neurological: Positive for headaches. Negative for dizziness, syncope and numbness. Hematological: Negative for adenopathy. Does not bruise/bleed easily. Psychiatric/Behavioral: Positive for decreased concentration. Negative for confusion. The patient is not nervous/anxious and is not hyperactive. Objective PHYSICAL EXAM BP 137/86 Pulse 79 Ht 152.4 cm (5') Wt 75 kg (165 lb 6.4 oz) BMI 32.30 kg/m?? Right hand/wrist The patient has normal inspection, palpation, range of motion, strength, and stability of the righthand and wrist. Left hand/wrist Inspection The patient has normal inspection of the left hand and wrist. Erythema: absent Edema: absent Temperature: normal Surgical scar/wound: absent. Visible mass: absent. Intrinsic atrophy: absent Thenar atrophy: absent Palpation Tenderness: present. The tenderness is located in the dorsal area, thumb and CMC. Range of motion Index: MP: The patient [...] flexion: 5/5 Interossei: 4/5 (First webspace) APB: 4/5 (Pain base of thumb) Director Global Market Research: 4/5 (Pain base of the thumb) DIP flexion: not tested Neurovascular Radial pulse: 2+ The patient has normal sensation. Tests negativeGrind test for thumb CMC: positive REVIEW OF X-RAYS/STUDIES/LABS XR Hand Left 3+ Vw Interpretation of x-rays: Three views of the left hand taken today in the office demonstrate, in myopinion, significant degenerative changes noted at the CMC joint of the left thumb with joint spacenarrowing between the trapezium and base of the 1st metacarpal. There is no acute bony abnormality,fracture or dislocation noted. Assessment/Plan Shivani was seen today for pain. Diagnoses and all orders for this visit: Left hand pain - XR Hand Left 3+ Vw Arthritis of carpometacarpal (CMC) joint of left thumb Plan Treatment options were discussed with Mrs. Betancur hand she has accepted non operative treatment andwill wear a thumb spica splint that she has available at home at all times with the exception of bathing for the next 3 weeks and to avoid activities which require vigorous use of the left hand in grasping objects. She will return to the office in 3 weeks to receive a corticosteroid injection of the CMC joint if she continues to remain as symptomatic as she is today. Mrs. Betancur is encouraged to call the office anytime she has any problems or concerns. BLAIRE Corcoran PA documented in this encounter Plan of Treatment [...] Laterality Modality Upper Extremities, Hand [facility] Narrative 03/12/2019 8:32 PM CDT Interpretation [...] Primary Pain in soft tissues of limb Arthritis of carpometacarpal (CMC) joint of left thumb documented in this encounter Care Teams Gis Database Administrator Relationship Specialty Start Date End Date Mendoza Parker MD PCP - General 02/18/17 06/12/20 documented as of this encounter
--- OUTSIDE RECORDS SUMMARY | 2024-11-19 04:52 | XMS_ITS | Encounter Summary ---
Author Organization [facility] Address [address] [place] [address] Care Team Providers Care Paperhanger Name Role Phone Mendoza Parker MD Primary Care Provider +1- [phone] Encounter Details Date Type Department Care Team (Late st Contact Info) Description 06/01/[address] 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
--- OUTSIDE RECORDS SUMMARY | 2024-11-19 04:52 | XMS_ITS | Encounter Summary ---
Author Organization [facility] Care Team Providers Care Jazz Musician Name Role Phone Mendoza Parker MD Primary Care Provider +1- [phone] Encounter Details Date Type Department Care Team (Latest Contact Info) Description 01/23/2019 Travel Social History Tobacco Use Types Packs/Day Years Used Date Smoking Tobacco: Every Day Cigarettes Smokeless Tobacco: Never Alcohol Use Standard Drinks/Week Comments No 0 (1 standard drink = 0.6 oz pur e alcohol) Comments No Sex and Gender Information Value Date Recorded Sex Assigned at Not on file 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
--- OUTSIDE RECORDS SUMMARY | 2024-11-19 04:52 | XMS_ITS | Encounter Summary ---
Author Organization [facility] Healthcare Address [facility] [place] [address] Care Team Providers Care Office Technology Instructor Name Role Phone Mendoza Parker MD Primary Care Provider +1- [phone] Reason for Visit * Reason Comments OP Infusion Prolia * Episode Based Medications (Routine) - Closed Specialty Diagnoses / Procedures Referred By Contac t Referred To Contact Diagnoses Age-related osteoporosis without current pathological fracture Procedures [place] DENOSUMAB INJECTION Urbano Delacruz MD [address] [address] Phone: tel: fax: [facility] Infusion Therapy [address] [facility] Office [address] [place] [address] Phone: tel: Referral ID Status Reason Start Date Expiration Date Visits Re quested Visits Authorized [id number] Closed 12/07/2019 12/07/2020 4 4 Encounter Details Date Type Department Care Team (Late st Contact Info) Description 06/04/2019 2:00 PM CDT Infusion [facility] [address] [place] [address] [address] [place] [address] Age-related osteoporosis without current pathological fracture (Primary Dx) Social History Tobacco Use Types Packs/Day Years Used Date Smoking Tobacco: Every Day Cigarettes Smokeless Tobacco: Never Alcohol Use Standard Drinks/Week Comments No 0 (1 standard drink = 0.6 oz pur e alcohol) Comments No Sex and Gender Information Value Date Recorded Sex Assigned at Not on file 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 Gender Identity Not on file Sexual Orientation Not on file documented as of this encounter Last Filed Vital Signs Vital Sign Reading Time Taken Comments Blood Pressure 164/88 06/04/2019 2:32 PM CDT Pulse 70 06/04/2019 2:27 PM CDT Temperature 37.2 ??C (99 ??F) 06/04/2019 2:27 PM CDT Respiratory Rate - - Oxygen Saturation 97% 06/04/2019 2:27 PM CDT Inhaled Oxygen Concentration - - Weight 76.2 kg (168 lb) 06/04/2019 2:27 PM CDT Height 149.9 cm (4' 11 ) 06/04/2019 2:27 PM CDT Body Mass Index 33.93 06/04/2019 2:27 PM CDT documented in this encounter Plan of Treatment Not on file documented as of this encounter Visit Diagnoses Diagnosis Age-related osteoporosis without current pathological fracture- Primary documented in this encounter Administered Medications Inactive Administered Medications - up to 3 most recent administrations Medication Order MAR Action Action Date Dose Rate Site denosumab (PROLIA) subcutaneous syringe 60 mg 60 mg, subcutaneous, Once, On 06/04/19 at 1419, For 1 dose, Calcium level should be greater than 8 mg/dl. Injection to be given in the upper arm, thigh or abdomen. Refrigerate. Allow to stand 15 to 30 mins prior to useIndications:Age-related osteoporosis without current pathological fracture Given 06/04/2019 2:34 PM CDT 60 mg Left Upper Arm documented in this encounter Care Teams Office Technology Instructor Relationship Specialty Start Date End Date Mendoza Parker MD PCP - General 02/18/17 06/12/20 documented as of this encounter
--- OUTSIDE RECORDS SUMMARY | 2024-11-19 04:52 | XMS_ITS | Encounter Summary ---
Author Organization [facility] Address [address] [facility] [address] [place] [address] Care Team Providers Care Data Security Consultant Name Role Phone Mendoza Parker MD Primary Care Provider +1- [phone] Encounter Details Date Type Department Care Team (Late st Contact Info) Description 05/03/2019 12:20 PM CDT Lab [facility] [address] [place] [address] Social History Tobacco Use Types Packs/Day Years Used Date Smoking Tobacco: Every Day Cigarettes Smokeless Tobacco: Never Alcohol Use Standard Drinks/Week Comments No 0 (1 standard drink = 0.6 oz pur e alcohol) Comments No Sex and Gender Information Value Date Recorded Sex Assigned at Not on file 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
--- OUTSIDE RECORDS SUMMARY | 2024-11-19 04:52 | XMS_ITS | Encounter Summary ---
Author Organization [facility] Address [address] [place] [address] Phone Care Team Providers Care Behavioral Health Associate Name Role Phone Mendoza Parker MD Primary Care Provider +1- [phone] Encounter Details Date Type Department Care Team (Late st Contact Info) Description 01/09/2019 Orders Only [facility] [address] [place] [address] Mendoza Parker MD [address] [address] Social History Tobacco Use Types Packs/Day Years Used Date Smoking Tobacco: Every Day Cigarettes Smokeless Tobacco: Never Alcohol Use Standard Drinks/Week Comments No 0 (1 standard drink = 0.6 oz pur e alcohol) Comments No Sex and Gender Information Value Date Recorded Sex Assigned at Not on file 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 Gender Identity Not on file Sexual Orientation Not on file documented as of this encounter Plan of Treatment Not on file documented as of this encounter Procedures Procedure Name Priority Date/Time Associated Diagnosis Comments SCAN - RADIOLOGY/IMAGING 01/09/2019 2:11 PM BOLT LABELER documented in this encounter Results * SCAN - RADIOLOGY/IMAGING (01/09/2019 2:11 PM BOLT LABELER) Anatomical Region Laterality Modality Other us Mendoza Parker MD Final Resu lt documented in this encounter Visit Diagnoses Not on filedocumented in this encounter Care Teams Behavioral Health Associate Relationship Specialty Start Date End Date Mendoza Parker MD PCP - General 02/18/17 06/12/20 documented as of this encounter
--- OUTSIDE RECORDS SUMMARY | 2024-11-19 04:52 | XMS_ITS | Encounter Summary ---
Author Organization [facility] Address [address] [facility] [address] [place] [address] Care Team Providers Care Parts Product Analyst Name Role Phone Mendoza Parker MD Primary Care Provider +1- [phone] Reason for Visit * Reason Comments Fatigue Encounter Details Date Type Department Care Team (Late st Contact Info) Description 01/16/2019 3:00 PM MOSQUITO SPRAYER Office Visit [facility] [address] [place] [address] Mendoza Parker MD [address] [address] Other fatigue (Primary Dx); Smoking trying to quit Social History Tobacco Use Types Packs/Day Years Used Date Smoking Tobacco: Every Day Cigarettes Smokeless Tobacco: Never Alcohol Use Standard Drinks/Week Comments No 0 (1 standard drink = 0.6 oz pur e alcohol) Comments No Sex and Gender Information Value Date Recorded Sex Assigned at Not on file 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:46 AM MOSQUITO SPRAYER Gender Identity Not on file Sexual Orientation Not on file documented as of this encounter Last Filed Vital Signs Vital Sign Reading Time Taken Comments Blood Pressure 134/88 01/16/2019 3:24 PM MOSQUITO SPRAYER Pulse 70 01/16/2019 3:24 PM MOSQUITO SPRAYER Temperature 36.9 ??C (98.4 ??F) 01/16/2019 3:24 PM CS T Respiratory Rate 18 01/16/2019 3:24 PM MOSQUITO SPRAYER Oxygen Saturation 95% 01/16/2019 3:24 PM MOSQUITO SPRAYER Inhaled Oxygen Concentration - - Weight 76.7 kg (169 lb) 01/16/2019 3:24 PM MOSQUITO SPRAYER Height 149.9 cm (4' 11 ) 01/16/2019 3:24 PM MOSQUITO SPRAYER Body Mass Index 34.13 01/16/2019 3:24 PM MOSQUITO SPRAYER documented in this encounter Ordered Prescriptions Prescription Sig Dispense Quantity Refills Last Filled Start Date End Date varenicline (CHANTIX JAIME) 0.5 mg (11)- 1 mg (42) tablet Use as directed on package instructions, try to quit smoking after 1 week. 53 tablet 01/17/2019 9 spironolactone (ALDACTONE) 25 mg tablet Take 1 tablet (25 mg total) by mouth daily. 30 tablet 5 01/16/2019 9 nebivolol (BYSTOLIC) 10 mg tablet Take 1 tablet (10 mg total) by mouth 2 (two) times a day. 60 tablet 5 01/16/2019 9 documented in this encounter Progress Notes * Mendoza Parker MD - 01/16/2019 3:00 PM CST Subjective/Objective Patient ID: Shivani Betancur is a 53 y.o. female. Chief Complaint Fatigue HPI Patient complains of fatigue a possible related to blood pressure medicines as please see assessment and plans. Review of Systems Constitutional: Positive for fatigue. [...] stool, constipation, diarrhea, nausea and vomiting. Endocrine: Negative. Negative for cold intolerance, heat intolerance, polydipsia, polyphagia and polyuria. Genitourinary: Negative for difficulty urinating, dysuria, frequency, hematuria and urgency. Nocturia Musculoskeletal: Positive for arthralgias, back pain and myalgias. Negative for gait problem, jointswelling and neck pain. Skin: Negative for color change, pallor, rash and wound. Allergic/Immunologic: Negative. Negative for environmental allergies, food allergies and immunocompromised state. Neurological: Positive for numbness. Negative for tremors, seizures, syncope, facial asymmetry, speech difficulty, weakness, light-headedness and headaches. Hematological: Negative. Negative for adenopathy. Psychiatric/Behavioral: Negative. Negative for behavioral problems, decreased concentration and sleep disturbance. The patient is not nervous/anxious. Breast: Negative. Physical Exam Constitutional: She appears well-developed and well-nourished. Neck: Neck supple. Cardiovascular: Normal rate, regular rhythm, normal heart sounds and intact distal pulses. Pulmonary/Chest: Effort normal and breath sounds normal. Abdominal: Soft. Bowel sounds are normal. Musculoskeletal: Pain on palpating over muscles Skin: Skin is warm and dry. Psychiatric: She has a normal mood and affect. Judgment and thought content normal. Nursing note and vitals reviewed. Assessment/Plan Diagnoses and all orders for this visit: Other fatigue (R53.83) (Primary) Assessment & Plan: Patient's history of fatigue depression is much better. However recently her fatigue is increased she has noticed a change after going to Bystolic 40 mg daily.. Bystolic is reduced back to 20 mg daily see if this will make a difference with respect her fatigue. Smoking trying to quit (Z72.0) Assessment & Plan: Patient requested Chantix I gave her coupon and Rx we sent in again. Other orders - nebivolol (BYSTOLIC) 10 mg tablet; Take 1 tablet (10 mg total) by mouth 2 (two) times a day. - spironolactone (ALDACTONE) 25 mg tablet; Take 1 tablet (25 mg total) by mouth daily. - varenicline (CHANTIX JAIME) 0.5 mg (11)- 1 mg (42) tablet; Use as directed on package instructions,try to quit smoking after 1 week. UITO SPRAYER documented in this encounter Miscellaneous Notes * Assessment & Plan Note - Mendoza Parker MD - 01/16/2019 5:58 PM MOSQUITO SPRAYER Associated Problem(s): Smoking trying to quit Patient requested Chantix I gave her coupon and Rx we sent in again. UITO SPRAYER * Assessment & Plan Note - Mendoza Parker MD - 01/16/2019 5:57 PM MOSQUITO SPRAYER Associated Problem(s): Other fatigue (Resolved 01/12/2020) Patient's history of fatigue depression is much better. However recently her fatigue is increased she has noticed a change after going to Bystolic 40 mg daily.. Bystolic is reduced back to 20 mg daily see if this will make a difference with respect her fatigue. UITO SPRAYER * Assessment & Plan Note - Mendoza Parker MD - 01/16/2019 5:54 PM MOSQUITO SPRAYER Associated Problem(s): Essential hypertension Hypertension well controlled with medication Bystolic 40 mg daily. However she has developed greater fatigue dry mouth. This time reduce Bystolic to 20 mg daily. Start spironolactone as add on the next 7 days. Patient to monitor blood pressure I will see her back in the next 3 months. UITO SPRAYER documented in this encounter Plan of Treatment Not on file documented as of this encounter Visit Diagnoses Diagnosis Other fatigue- Primary Smoking trying to quit documented in this encounter Discontinued Medications Medication Sig Discontinue Reason Start Date End Da te nebivolol (BYSTOLIC) 20 mg tablet Take 20 mg by mouth 2 (two) times a day. Dose adjustment 01/16/2019 documented as of this encounter Care Teams Parts Product Analyst Relationship Specialty Start Date End Date Mendoza Parker MD PCP - General 02/18/17 06/12/20 documented as of this encounter
--- OUTSIDE RECORDS SUMMARY | 2024-11-19 04:52 | XMS_ITS | Encounter Summary ---
Author Organization [facility] Address [address] [place] [address] Phone Care Team Providers Care Professor Of Art Name Role Phone Mendoza Parker MD Primary Care Provider +1- [phone] Encounter Details Date Type Department Care Team (Late st Contact Info) Description 07/27/2019 Orders Only [facility] [address] [place] [address] Mendoza Parker MD [address] [address] Social History Tobacco Use Types Packs/Day Years Used Date Smoking Tobacco: Every Day Cigarettes Smokeless Tobacco: Never Alcohol Use Standard Drinks/Week Comments No 0 (1 standard drink = 0.6 oz pur e alcohol) Comments No Sex and Gender Information Value Date Recorded Sex Assigned at Not on file 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 Gender Identity Not on file Sexual Orientation Not on file documented as of this encounter Plan of Treatment Not on file documented as of this encounter Procedures Procedure Name Priority Date/Time Associated Diagnosis Comments SCAN - RADIOLOGY/IMAGING 07/27/2019 1:52 PM CDT documented in this encounter Results * SCAN - RADIOLOGY/IMAGING (07/27/2019 1:52 PM CDT) Anatomical Region Laterality Modality Other us Mendoza Parker MD Final Resu lt documented in this encounter Visit Diagnoses Not on filedocumented in this encounter Care Teams Professor Of Art Relationship Specialty Start Date End Date Mendoza Parker MD PCP - General 02/18/17 06/12/20 documented as of this encounter
--- OUTSIDE RECORDS SUMMARY | 2024-11-19 04:52 | XMS_ITS | Encounter Summary ---
Author Organization [facility] Healthcare Address [address] [place] [address] Care Team Providers Care Warehouse Logistics Coordinator Name Role Phone Mendoza Parker MD Primary Care Provider +1- [phone] Encounter Details Date Type Department Care Team (Late st Contact Info) Description 05/29/2019 Orders Only [facility] [address] [place] [id number] Analia Jacobson RN Social History Tobacco Use Types Packs/Day Years Used Date Smoking Tobacco: Every Day Cigarettes Smokeless Tobacco: Never Alcohol Use Standard Drinks/Week Comments No 0 (1 standard drink = 0.6 oz pur e alcohol) Comments No Sex and Gender Information Value Date Recorded Sex Assigned at Not on file 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
--- OUTSIDE RECORDS SUMMARY | 2024-11-19 04:52 | XMS_ITS | Encounter Summary ---
Author Organization [facility] Address [address] [place] [address] Phone Care Team Providers Care Science Education Professor Name Role Phone Mendoza Parker MD Primary Care Provider +1- [phone] Encounter Details Date Type Department Care Team (Late st Contact Info) Description 07/24/2019 Orders Only [facility] [address] [place] [address] Mendoza Parker MD [address] [address] Social History Tobacco Use Types Packs/Day Years Used Date Smoking Tobacco: Every Day Cigarettes Smokeless Tobacco: Never Alcohol Use Standard Drinks/Week Comments No 0 (1 standard drink = 0.6 oz pur e alcohol) Comments No Sex and Gender Information Value Date Recorded Sex Assigned at Not on file 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 Gender Identity Not on file Sexual Orientation Not on file documented as of this encounter Plan of Treatment Not on file documented as of this encounter Procedures Procedure Name Priority Date/Time Associated Diagnosis Comments CARDIOLOGY DOCUMENT SCAN 07/24/2019 3:03 PM CDT documented in this encounter Results * SCAN - CARDIOLOGY (07/24/2019 3:03 PM CDT) Anatomical Region Laterality Modality Other Mendoza Parker MD CV CARDIAC SERVICES PROCED URES Final Result documented in this encounter Visit Diagnoses Not on filedocumented in this encounter Care Teams Science Education Professor Relationship Specialty Start Date End Date Mendoza Parker MD PCP - General 02/18/17 06/12/20 documented as of this encounter
--- OUTSIDE RECORDS SUMMARY | 2024-11-19 04:52 | XMS_ITS | Encounter Summary ---
Author Organization [facility] Address [address] [place] [address] Care Team Providers Care Ice Cream Dispenser Name Role Phone Mendoza Parker MD Primary Care Provider +1- [phone] Reason for Visit * Reason Onset Date Comments Bystolic 01/29/2019 Encounter Details Date Type Department Care Team (Late st Contact Info) Description 01/29/2019 Telephone [facility] [address] [place] [id number] Mendoza Parker MD [address] [address] Bystolic Social History Tobacco Use Types Packs/Day Years Used Date Smoking Tobacco: Every Day Cigarettes Smokeless Tobacco: Never Alcohol Use Standard Drinks/Week Comments No 0 (1 standard drink = 0.6 oz pur e alcohol) Comments No Sex and Gender Information Value Date Recorded Sex Assigned at Not on file 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 Pt reassured that BP reading not critical for short term. Pt to have Stress Test tomorrow 01/31. Advised to continue to hold beta genet meds until Stress Test complete. Pt verbalized understanding * Telephone Encounter - Corinna Larkin RN - 01/30/2019 8:47 AM CDT Left msg for pt to return call. * Telephone Encounter - Mary Carmen - 01/29/2019 4:12 PM CDT Pt states with the lowered bp dose her blood pressure today was 165/95 -asking what she is to do about the higher blood pressure prior to her stress test? * Telephone Encounter - Mary Carmen - 01/29/2019 2:20 PM CDT Per pt, Dr Martin advised : Spirnolactone 12.5 in the AM and Bystolic 10 mg, one half tablet in the AM One half tablet in the PM So 5 mg in AM and 5 mg in the PM Please advise pharmacy. * Telephone Encounter - Mary Carmen - 01/29/2019 1:47 PM CDT [facility] asking for verification on the 01-15-19 last filled meds: Spirnolactone 25 mg one tablet/day [id number] mg one tablet BID -states they received rxes on these 2 meds, both to be cut in half. Verbal per [facility]: Spirnolactone 12.5 mg and call pt to verify how she has been taking it. OMTR to Shivani. * Telephone Encounter - Corinna Larkin RN - 01/29/2019 12:53 PM CDT Called and spoke to Shivani. Informed of Dr MOHAN instructions that Bystolic is a beta-genet and to stop medication now for Stress Test and then resume after testing. Per pt: Please inform Dr Parker that per Dr Martin instructions, I decreased the Bystolic to 5 mg. Also, I decreased the Aldactone to 12.5 mg a day. Discussed the above per face to face discussion with Dr MOHAN: Med module updated. * Telephone Encounter - Mendoza Parker MD - 01/29/2019 12:48 PM CDT Yes Bystolic is classified as a beta-genet please inform patient. She is having a stress test in 2 days needs to be off the beta-genet * Telephone Encounter - Mary Carmen - 01/29/2019 11:46 AM CDT Asking if the Bystolic she's on is a beta-genet? Pt is scheduled for a stress test 01-31-19 at [facility] and one of her orders is to stop beta blockers 48 hrs prior. CBN: [phone], may leave a message if pt doesn't answer. documented in this encounter Plan of Treatment Not on file documented as of this encounter Visit Diagnoses Not on filedocumented in this encounter Discontinued Medications Medication Sig Discontinue Reason Start Date End Da te nebivolol (BYSTOLIC) 10 mg tablet Take 1 tablet (10 mg total) by mouth 2 (two) times a day. Dose adjustment 01/16/2019 01/29/2019 spironolactone (ALDACTONE) 25 mg tablet Take 1 tablet (25 mg total) by mouth daily. Dose adjustment 01/16/2019 01/29/2019 documented as of this encounter Care Teams Ice Cream Dispenser Relationship Specialty Start Date End Date Mendoza Parker MD PCP - General 02/18/17 06/12/20 documented as of this encounter
--- OUTSIDE RECORDS SUMMARY | 2024-11-19 04:52 | XMS_ITS | Encounter Summary ---
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
--- OUTSIDE RECORDS SUMMARY | 2024-11-19 04:52 | XMS_ITS | Encounter Summary ---
Author Organization [facility] Care Team Providers Care Injection Molding Process Technician Name Role Phone Mendoza Parker MD Primary Care Provider +1- [phone] Encounter Details Date Type Department Care Team (Latest Contact Info) Description 05/07/2019 Travel Social History Tobacco Use Types Packs/Day Years Used Date Smoking Tobacco: Every Day Cigarettes Smokeless Tobacco: Never Alcohol Use Standard Drinks/Week Comments No 0 (1 standard drink = 0.6 oz pur e alcohol) Comments No Sex and Gender Information Value Date Recorded Sex Assigned at Not on file 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
--- OUTSIDE RECORDS SUMMARY | 2024-11-19 04:53 | XMS_ITS | Encounter Summary ---
Author Organization [facility] Healthcare Address [address] [place] [address] Care Team Providers Care Counseling Psychologist Name Role Phone Mendoza Parker MD Primary Care Provider +1- [phone] Reason for Referral * Neurology (Routine) - Closed Specialty Diagnoses / Procedures Referred By Val adkins Referred To Contact Diagnoses Seizure-like activity (HCC) Procedures EEG Jones Younger MD Phone: tel: fax: Referral ID Status Reason Start Date Expiration Date Visits Re quested Visits Authorized [id number] Closed 09/19/2018 03/30/2020 1 1 IDENT ERGONOMIC CONSULTING Reason for Visit * Neurology (Routine) - Closed Specialty Diagnoses / Procedures Referred By Val adkins Referred To Contact Diagnoses Seizure-like activity (HCC) Procedures EEG Jones Younger MD Phone: tel: fax: Referral ID Status Reason Start Date Expiration Date Visits Re quested Visits Authorized [id number] Closed 09/19/2018 03/30/2020 1 1 Encounter Details Date Type Department Care Team (Latest Contact Info) Description 09/26/2018 1:17 PM PRESIDENT ERGONOMIC CONSULTING - 09/26/2018 11:59 PM PRESIDENT ERGONOMIC CONSULTING Hospital Encounter [facility] Neurological Disorders Testing [address] [place] [address] Jones Younger MD [address] [place] [address] [address] [place] [address] Seizure-like activity (CMS/HCC) Discharge Disposition: Discharge to home or self care Social History Tobacco Use Types Packs/Day Years Used Date Smoking Tobacco: Every Day Cigarettes Smokeless Tobacco: Never Alcohol Use Standard Drinks/Week Comments No 0 (1 standard drink = 0.6 oz pur e alcohol) Comments No Sex and Gender Information Value Date Recorded Sex Assigned at Not on file 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:46 AM PRESIDENT ERGONOMIC CONSULTING Gender Identity Not on file Sexual Orientation Not on file documented as of this encounter Medications at Time of Discharge cyclobenzaprine (FLEXERIL) 10 mg tablet Take 1 tablet (10 mg total) by mouth 3 (three) times a day as needed 10/28/2017 acetaminophen-asp irin-caffeine (EXCEDRIN MIGRAINE) 250-250-65 mg per tablet 1-2 per week 0 AFLURIA QUAD 3097-4903 60 mcg/0.5 mL suspension 09/14/2018 8 alendronate (FOSAMAX) 70 mg tablet 07/19/2018 8 atorvastatin (LIPITOR) 20 mg tablet TAKE ONE [...] 30 mg by mouth daily 03/23/[address] (CYMBALTA) 60 mg capsule take 1 capsule by oral route maxi day 90 0 03/14/2014 8 ECOTRIN LOW STRENGTH 81 mg tablet TAKE ONE TABLET BY MOUTH ONCE DAILY 90 tablet 1 09/25/2018 9 ergocalciferol (VITAMIN D) 50,000 unit capsule TAKE ONE CAPSULE ONCE A WEEK FOR 8 WEEKS 04/25/2012 8 estradiol (ESTRACE) 0.01 % (0.1 mg/gram) vaginal cream INSERT 1/2 TO 1 GRAM VAGINALLY 1 TO 2 TIMES PER WEEK 42.5 0 03/07/2013 11/11/202 0 HYDROcodone-aceta minophen (NORCO) 5-325 mg per [...] 1 tablet (10 mg total) by mouth daily. 30 tablet 08/15/2018 8 neomycin-polymyxi n-dexamethasone (MAXITROL) 3.5mg/mL-10,000 unit/mL-0.1 % ophthalmic suspension 02/01/2018 0 omeprazole (PriLOSEC) 40 mg capsule TAKE ONE CAPSULE BY MOUTH ONCE DAILY 30 capsule 01/06/2018 9 pen needle, diabetic (BD ULTRA-FINE MINI PEN NEEDLE) 31 gauge x 3/16 needle use one needle daily with Forteo Pen 06/30/2015 0 predniSONE (DELTASONE) 10 mg tablet 07/18/2018 8 pregabalin (LYRICA) 75 mg capsule take 1 capsule by oral route 2 times every day 0 0 03/07/2015 0 triamcinolone (KENALOG) 0.1 % cream 07/18/2018 8 zolpidem (AMBIEN) 5 mg tabletIndications :Sleep-Onset Insomnia Take 1 tablet (5 mg total) by mouth nightly as needed for sleep. 30 tablet 1 09/04/2018 8 documented as of this encounter Discharge Disposition Disposition Code Departure Means Destination Discharge to home or self care documented in this encounter Plan of Treatment Not on file documented as of this encounter Procedures Procedure Name Priority Date/Time Associated Diagnosis Comments EEG Routine 09/26/2018 2:47 PM PRESIDENT ERGONOMIC CONSULTING Seizure-like activity (CMS/HCC) documented in this encounter Results * EEG (09/26/2018 2:47 PM PRESIDENT ERGONOMIC CONSULTING) Anatomical Region Laterality Modality EEG Narrative 10/03/2018 10:49 AM PRESIDENT ERGONOMIC CONSULTING History: This is a 53 years old female being evaluated for seizure disorder. The condition of the patient during tracing was reported to be awake and drowsy. The quality of study is good The background activity consisted of posterior dominant alpha activity of moderate amplitude. ??When patient become drowsy, there was dropout of posterior dominant activity and generalized slowing of background activity. ??There was no epileptiform discharge seen in this tracing. EKG showed regular rate and rhythm Impressions: This is a normal EEG during awake and drowsy state. ??There was no epileptiform discharge seen in this tracing. ??Clinical correlation is recommended. us Jones Younger MD NEUROLOGY ORDERABLES Fi nal Result documented in this encounter Visit Diagnoses Diagnosis Seizure-like activity (HCC) documented in this encounter Care Teams Counseling Psychologist Relationship Specialty Start Date End Date Mendoza Parker MD PCP - General 02/18/17 06/12/20 documented as of this encounter
--- OUTSIDE RECORDS SUMMARY | 2024-11-19 04:53 | XMS_ITS | Encounter Summary ---
Author Organization [facility] Address [address] [place] [address] Phone Care Team Providers Care Organ Fixer Name Role Phone Mendoza Parker MD Primary Care Provider +1- [phone] Encounter Details Date Type Department Care Team (Late st Contact Info) Description 05/11/2018 1:40 PM CDT Office Visit [facility] [address] [place] [address] Mendoza Parker MD [address] [address] Breast cancer screening (Primary Dx); Need for kuazhdyirn-dposegr-p ertussis (Tdap) vaccine; Shaking; Essential hypertension; Osteoporosis without current pathological fracture, unspecified osteoporosis type Social History Tobacco Use Types Packs/Day Years Used Date Smoking Tobacco: Every Day Cigarettes Smokeless Tobacco: Never Alcohol Use Standard Drinks/Week Comments No 0 (1 standard drink = 0.6 oz pur e alcohol) Comments Unknown Sex and Gender Information Value Date Recorded Sex Assigned at Not on file 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 Gender Identity Not on file Sexual Orientation Not on file documented as of this encounter Last Filed Vital Signs Vital Sign Reading Time Taken Comments Blood Pressure 148/104 05/11/2018 1:53 PM CDT Pulse 81 05/11/2018 1:53 PM CDT Temperature 36.1 ??C (97 ??F) 05/11/2018 1:53 PM CDT Respiratory Rate 18 05/11/2018 1:53 PM CDT Oxygen Saturation 98% 05/11/2018 1:53 PM CDT Inhaled Oxygen Concentration - - Weight 72.6 kg (160 lb) 05/11/2018 1:53 PM CDT Height 152.4 cm (5') 05/11/2018 1:53 PM CDT Body Mass Index 31.25 05/11/2018 1:53 PM CDT documented in this encounter Progress Notes * Mendoza Parker MD - 05/11/2018 1:40 PM CDT Subjective/Objective Patient ID: Shivani Betancur is a 52 y.o. female. Chief Complaint No chief complaint on file. HPI Patient is here to concern of a spirits which she had a shoe sort of shaky sensation of feeling along with cost questionable palpitations. Another occasion she has some vertigo please see assessment and plans. Patient overall is doing much better in a few years ago pain level is decreased her anxiety level is gone down a depressive symptoms have decreased. Patient sees multiple specialists for anumber of health concerns. Is overall doing much better. She has fibromyalgia, history of osteoporosis with fracture. Chronic pain separate from fibromyalgia involving pelvic pain and abdominal pain all which have improved. Patient does go to pain clinic. Review of Systems Constitutional: Negative. HENT: Negative. Eyes: Negative. Genitourinary: Positive for pelvic pain. Musculoskeletal: Positive for arthralgias and myalgias. Skin: Negative. Neurological: Positive for dizziness and numbness. Psychiatric/Behavioral: Negative. Physical Exam Constitutional: She is oriented to person, place, and time. She appears well- developed and well-nourished. HENT: Head: Normocephalic and atraumatic. Eyes: EOM are normal. Pupils are equal, round, and reactive to light. Cardiovascular: Normal rate, regular rhythm, normal heart sounds and intact distal pulses. Pulmonary/Chest: Effort normal and breath sounds normal. Abdominal: Soft. Bowel sounds are normal. Neurological: She is alert and oriented to person, place, and time. Skin: Skin is warm and dry. Psychiatric: She has a normal mood and affect. Her behavior is normal. Judgment and thought contentnormal. Nursing note and vitals reviewed. Assessment/Plan Diagnoses and all orders for this visit: Breast cancer screening (Primary) Assessment & Plan: Mammogram order placed to bring her mammogram up-to-date. Orders: - Screening Mammogram 2D Bilateral; Future Need for xeciiogbfj-igbfksm-gaixzoztj (Tdap) vaccine Assessment & Plan: Immunization brought up-to-date. Orders: - Tdap vaccine greater than or equal to 7yo IM Shaking Assessment & Plan: Patient describes feeling shaky 2 weeks ago. Questionable some palpitations concurrently. She did contact her mice raiser referred on to primary care. With this [...] symptoms overall probably do a Holter monitor. Essential hypertension Assessment & Plan: Patient's blood pressure is elevated today 148/104 she had reduced her Bystolic to 10 mg per day based on the directions of her last cardiology visit however is obvious that the patient needs high dose of Bystolic. She will resume Bystolic 20 mg daily. Cardiac exam is benign. Osteoporosis without current pathological fracture, unspecified osteoporosis type Assessment & Plan: Patient managed by Endocrin[facility] she advised me she will be starting Prolia in nearture. Patient is presently taking Fosamax. documented in this encounter Miscellaneous Notes * Assessment & Plan Note - Mendoza Parker MD - 05/13/2018 1:51 PM CDT Associated Problem(s): Breast cancer screening (Resolved 06/14/2019) Mammogram order placed to bring her mammogram up-to-date. * Assessment & Plan Note - Mendoza Parker MD - 05/13/2018 1:51 PM CDT Associated Problem(s): Need for aokvonobjv-vqsukzr-fhfngzibd (Tdap) vaccine (Resolved 01/16/2019) Immunization brought up-to-date. * Assessment & Plan Note - Mendoza Parker MD - 05/13/2018 1:49 PM CDT Associated Problem(s): Shaking (Resolved 01/12/2020) Patient describes feeling shaky 2 weeks ago. Questionable some palpitations concurrently. She did contact her mice raiser referred on to primary care. With this [...] symptoms overall probably do a Holter monitor. * Assessment & Plan Note - Mendoza Parker MD - 05/13/2018 1:48 PM CDT Associated Problem(s): Osteoporosis Patient managed by [facility] she advised me she will be starting Prolia in [facility]. Patient is presently taking Fosamax. * Assessment & Plan Note - Mendoza Parker MD - 05/13/2018 1:46 PM CDT Associated Problem(s): Essential hypertension Patient's blood pressure is elevated today 148/104 she had reduced her Bystolic to 10 mg per day based on the directions of her last cardiology visit however is obvious that the patient needs high dose of Bystolic. She will resume Bystolic 20 mg daily. Cardiac exam is benign. documented in this encounter Plan of Treatment Not on file documented as of this encounter Procedures Procedure Name Priority Date/Time Associated Diagnosis Comments COLONOSCOPY Routine 01/05/2013 documented in this encounter Results * COLONOSCOPY (01/05/2013) Colonoscopy Normal us Historical Provider HEALTH MAINTENANCE Final Result documented in this encounter Visit Diagnoses Diagnosis Breast cancer screening- Primary Breast screening, unspecified Need for qznhtweepk-jckafac-hxeprgqbx (Tdap) vaccine Need for prophylactic vaccination with combined tweuudynvk-iztvjzw-yhxcozlig (DTP) vaccine Shaking Abnormal involuntary movements Essential hypertension Unspecified essential hypertension Osteoporosis without current pathological fracture, unspecified osteoporosis type documented in this encounter Discontinued Medications Medication Sig Discontinue Reason Start Date End Da te alendronate (FOSAMAX) 70 mg tablet 03/10/2018 05/11/2018 citalopram (CeleXA) 40 mg tablet daily. 01/31/2012 05/11/2018 dexamethasone (DECADRON) 1 mg tablet TAKE 1 TABLET Once Take at 11 PM , the night before you have your lab work done 12/28/2017 05/11/2018 documented as of this encounter Orders Immunization/Injection Count Last Ordered Date First Ordered Date TDAP VACCINE GREATER THAN OR EQUAL TO 7YO IM 1 05/11/2018 documented in this encounter Care Teams Organ Fixer Relationship Specialty Start Date End Date Mendoza Parker MD PCP - General 02/18/17 06/12/20 documented as of this encounter
--- OUTSIDE RECORDS SUMMARY | 2024-11-19 04:53 | XMS_ITS | Encounter Summary ---
Author Organization [facility] Address [address] [place] [address] Phone Care Team Providers Care Plant Physiology Teacher Name Role Phone Mendoza Parker MD Primary Care Provider +1- [phone] Encounter Details Date Type Department Care Team (Late st Contact Info) Description 10/16/2018 Orders Only [facility] Scheduling [address] [place] [address] Radha Giraldo CMA Social History Tobacco Use Types Packs/Day Years Used Date Smoking Tobacco: Every Day Cigarettes Smokeless Tobacco: Never Alcohol Use Standard Drinks/Week Comments No 0 (1 standard drink = 0.6 oz pur e alcohol) Comments No Sex and Gender Information Value Date Recorded Sex Assigned at Not on file 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 Medication Sig Dispense Quantity Refills Last Filled Start D ate End Date triamcinolone (KENALOG) 0.1 % cream 07/18/2018 predniSONE (DELTASONE) 10 mg tablet 07/18/2018 11/03/2018 alendronate (FOSAMAX) 70 mg tablet 07/19/2018 11/03/2018 added in this encounter Care Teams Plant Physiology Teacher Relationship Specialty Start Date End Date Mendoza Parker MD PCP - General 02/18/17 06/12/20 documented as of this encounter
--- OUTSIDE RECORDS SUMMARY | 2024-11-19 04:53 | XMS_ITS | Encounter Summary ---
Author Organization [facility] Address [address] [place] [address] Phone Care Team Providers Care Manager Cosmetics Name Role Phone Mendoza Parker MD Primary Care Provider +1- [phone] Encounter Details Date Type Department Care Team (Late st Contact Info) Description 05/19/2018 Orders Only [facility] [address] [facility] Medical Office Building 2 [address] [place] [address] Urbano Delacruz MD [address] [address] Vitamin D deficiency (Primary Dx) Social History Tobacco Use Types Packs/Day Years Used Date Smoking Tobacco: Every Day Cigarettes Smokeless Tobacco: Never Alcohol Use Standard Drinks/Week Comments No 0 (1 standard drink = 0.6 oz pur e alcohol) Comments Unknown Sex and Gender Information Value Date Recorded Sex Assigned at Not on file 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
--- OUTSIDE RECORDS SUMMARY | 2024-11-19 04:53 | XMS_ITS | Encounter Summary ---
Author Organization [facility] Address [address] [facility] [address] [place] [address] Care Team Providers Care Commissions Coordinator Name Role Phone Mendoza Parker MD Primary Care Provider +1- [phone] Reason for Visit * Reason Comments Annual Exam Encounter Details Date Type Department Care Team (Late st Contact Info) Description 10/02/2018 1:40 PM EXECUTIVE BUSINESS COACH Office Visit [facility] [address] [place] [address] Mendoza Parker MD [address] [address] Essential hypertension, malignant (Primary Dx); Annual physical exam; Fibromyalgia; Primary insomnia; Essential hypertension; Gastro-esophageal reflux disease without esophagitis; Low back pain with sciatica, sciatica laterality unspecified, unspecified back pain laterality, unspecified chronicity; Obstructive sleep apnea syndrome; Smoking trying to quit Social History Tobacco Use Types Packs/Day Years Used Date Smoking Tobacco: Every Day Cigarettes Smokeless Tobacco: Never Alcohol Use Standard Drinks/Week Comments No 0 (1 standard drink = 0.6 oz pur e alcohol) Comments No Sex and Gender Information Value Date Recorded Sex Assigned at Not on file 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:46 AM EXECUTIVE BUSINESS COACH Gender Identity Not on file Sexual Orientation Not on file documented as of this encounter Last Filed Vital Signs Vital Sign Reading Time Taken Comments Blood Pressure 132/80 10/02/2018 2:22 PM EXECUTIVE BUSINESS COACH Pulse 83 10/02/2018 2:22 PM EXECUTIVE BUSINESS COACH Temperature 36.9 ??C (98.4 ??F) 10/02/2018 2:22 PM CS T Respiratory Rate 18 10/02/2018 2:22 PM EXECUTIVE BUSINESS COACH Oxygen Saturation 94% 10/02/2018 2:22 PM EXECUTIVE BUSINESS COACH Inhaled Oxygen Concentration - - Weight 74.4 kg (164 lb) 10/02/2018 2:22 PM EXECUTIVE BUSINESS COACH Height 152.4 cm (5') 10/02/2018 2:22 PM EXECUTIVE BUSINESS COACH Body Mass Index 32.03 10/02/2018 2:22 PM EXECUTIVE BUSINESS COACH documented in this encounter Progress Notes * Mendoza Parker MD - 10/02/2018 1:40 PM CST Subjective/Objective Patient ID: Shivani Betancur is a 53 y.o. female. Chief Complaint Annual Exam Patient is here for annual exam. HPI Patient's multiple health problem she goes to the Pain Clinic for her fibromyalgia as well as low back pain.. She sees gynecology for structurer concerns and bladder issues. Hypertension is reasonably controlled. See assessment and plan Review of Systems Constitutional: Positive for fatigue. Fatigue is a chronic problem. HENT: Negative. Eyes: Negative. Respiratory: Negative. Gastrointestinal: Negative. Endocrine: Negative. Genitourinary: Positive for urgency. Musculoskeletal: Positive for arthralgias, back pain and myalgias. Skin: Negative. Neurological: Positive for dizziness and numbness. Psychiatric/Behavioral: Positive for sleep disturbance. Breast: Negative. Physical Exam Constitutional: She is oriented to person, place, and time. She appears well- developed and well-nourished. HENT: Head: Normocephalic and atraumatic. Eyes: Pupils are equal, round, and reactive to light. EOM are normal. Neck: Normal range of motion. Neck supple. Cardiovascular: Normal rate, regular rhythm, normal heart sounds and intact distal pulses. Pulmonary/Chest: Effort normal and breath sounds normal. Abdominal: Soft. Musculoskeletal: Normal range of motion. Neurological: She is alert and oriented to person, place, and time. Skin: Skin is warm and dry. Capillary refill takes less than 2 seconds. Psychiatric: She has a normal mood and affect. Her behavior is normal. Judgment and thought contentnormal. Nursing note and vitals reviewed. Assessment/Plan Diagnoses and all orders for this visit: Essential hypertension, malignant (I10) (Primary) - Lipid panel; Future Annual physical exam (Z00.00) - Lipid panel; Future Fibromyalgia (M79.7) Assessment & Plan: Patient's multiple pain she is under care of Pain Clinic she also sees Neurology. Primary insomnia (F51.01) Assessment & Plan: Patient is on /Ambien from her neurologist. Essential hypertension (I10) Assessment & Plan: Hypertension is unchanged. Continue current treatment regimen. Dietary sodium restriction. Weight loss. Regular aerobic exercise. Stop smoking. Continue current medications. Blood pressure will be reassessed at the next regular appointment. Gastro-esophageal reflux disease without esophagitis (K21.9) Assessment & Plan: GERD symptoms pretty much controlled with Prilosec/omeprazole. Low back pain with sciatica, sciatica laterality unspecified, unspecified back pain laterality, unspecified chronicity (M54.40) Assessment & Plan: Low back pain problems are managed by her pain clinic Obstructive sleep apnea syndrome (G47.33) Assessment & Plan: Patient's sleep apnea managed by Neurology. Smoking trying to quit (Z72.0) Assessment & Plan: Patient has been given information regarding discontinue smoking including the information on nicotine patches as well as Wellbutrin and Chantix. documented in this encounter Miscellaneous Notes * Assessment & Plan Note - Mendoza Parker MD - 02/03/2019 1:52 PM CDT Associated Problem(s): Smoking trying to quit Patient has been given information regarding discontinue smoking including the information on nicotine patches as well as Wellbutrin and Chantix. * Assessment & Plan Note - Mendoza Parker MD - 02/03/2019 1:52 PM CDT Associated Problem(s): NEO (obstructive sleep apnea) Patient's sleep apnea managed by Neurology. * Assessment & Plan Note - Mendoza Parker MD - 02/03/2019 1:51 PM CDT Associated Problem(s): Lumbago Low back pain problems are managed by her pain clinic * Assessment & Plan Note - Mendoza Parker MD - 02/03/2019 1:51 PM CDT Associated Problem(s): Gastro-esophageal reflux disease without esophagitis GERD symptoms pretty much controlled with Prilosec/omeprazole. * Assessment & Plan Note - Mendoza Parker MD - 02/03/2019 1:50 PM CDT Associated Problem(s): Insomnia Patient is on /Ambien from her neurologist. * Assessment & Plan Note - Mendoza Parker MD - 02/03/2019 1:50 PM CDT Associated Problem(s): Fibromyalgia Patient's multiple pain she is under care of Pain Clinic she also sees Neurology. * Assessment & Plan Note - Mendoza Parker MD - 02/03/2019 1:50 PM CDT Associated Problem(s): Essential hypertension Hypertension is unchanged. Continue current treatment regimen. Dietary sodium restriction. Weight loss. Regular aerobic exercise. Stop smoking. Continue current medications. Blood pressure will be reassessed at the next regular appointment. documented in this encounter Plan of Treatment Not on file documented as of this encounter Procedures Procedure Name Priority Date/Time Associated Diagnosis Comments LIPID PANEL Routine 10/11/2018 1:50 PM EXECUTIVE BUSINESS COACH Essential hypertension, malignant Annual physical exam documented in this encounter Results * Lipid panel (10/11/2018 1:50 PM EXECUTIVE BUSINESS COACH) Pathologist [facility] Cholesterol 133 <200 mg/dL [facility] [place] HDL 56 >50 mg/dL [facility] [place] Triglycerides 133 <150 mg/dL [facility] [place] LDL 56 mg/dL (calc) [facility] [place] Comment: Reference range: <100 Desirable range <100 mg/dL for primary prevention; ?? <70 mg/dL for patients with CHD or diabetic patients with > or = 2 CHD risk factors. LDL-C is now calculated using the Corine calculation, which is a validated novel method providing better accuracy than the Friedewald equation in the estimation of LDL-C. Francisco WOLF et al. ANA LUISA. 2013;310(19): 8688-8662 (http://education.Sports MatchMaker/faq/KXR165) Chol/HDL ratio 2.4 <5.0 (calc) [facility] [place] Non-HDL, (LDL+VLDL) 77 <130 mg/dL (calc) [facility] [place] Comment: For patients with diabetes plus 1 major ASCVD risk factor, treating to a non-HDL-C goal of <100 mg/dL (LDL-C of <70 mg/dL) is considered a therapeutic option. Blood specimen (specimen) 10/11/2018 1:50 PM EXECUTIVE BUSINESS COACH 10/11/2018 1:51 PM EXECUTIVE BUSINESS COACH Narrative [facility] - 10/12/2018 4:41 AM EXECUTIVE BUSINESS COACH FASTING:UNKNOWN FASTING: UNKNOWN Resulting Agency Comment Performing Organization Information: ?Site ID: [place] ?Name: [facility] ?Address: [id number] [place] [address] [place] [id number] ?Director: Mendoza Chand D.O., MPH Mendoaz Parker MD LAB BLOOD ORDERABLES Final Result [facility] [place] [facility] documented in this encounter Visit Diagnoses Diagnosis Essential hypertension, malignant- Primary Annual physical exam Routine general medical examination at a health care facility Fibromyalgia Unspecified myalgia and myositis Primary insomnia Persistent disorder of initiating or maintaining sleep Essential hypertension Unspecified essential hypertension Gastro-esophageal reflux disease without esophagitis Low back pain with sciatica, sciatica laterality unspecified, unspecified back pain laterality, unspecified chronicity Obstructive sleep apnea syndrome Obstructive sleep apnea (adult) (pediatric) Smoking trying to quit documented in this encounter Care Teams Commissions Coordinator Relationship Specialty Start Date End Date Mendoza Parker MD PCP - General 02/18/17 06/12/20 documented as of this encounter
--- OUTSIDE RECORDS SUMMARY | 2024-11-19 04:53 | XMS_ITS | Encounter Summary ---
Author Organization [facility] Address [address] [place] [address] Phone Care Team Providers Care Certified Prosthetist/Orthotist Name Role Phone Mendoza Parker MD Primary Care Provider +1- [phone] Encounter Details Date Type Department Care Team (Late st Contact Info) Description 05/19/2018 Orders Only [facility] [address] [facility] Medical Office Building [address] [place] [address] Urbano Delacruz MD [address] [id number] Steroid-induced osteoporosis (Primary Dx); Fatigue, unspecified type Social History Tobacco Use Types Packs/Day Years Used Date Smoking Tobacco: Every Day Cigarettes Smokeless Tobacco: Never Alcohol Use Standard Drinks/Week Comments No 0 (1 standard drink = 0.6 oz pur e alcohol) Comments Unknown Sex and Gender Information Value Date Recorded Sex Assigned at Not on file 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:46 AM MODELING INSTRUCTOR Gender Identity Not on file Sexual Orientation Not on file documented as of this encounter Plan of Treatment Scheduled Orders Name Type Priority Associated Diagnoses Orde r Schedule Basic metabolic panel Lab Routine Steroid-induced osteoporosis Expected: 05/19/2018, Expires: 05/19/2019 TSH Lab Routine Fatigue, unspecified type Expected: 05/19/2018, Expires: 05/19/2019 documented as of this encounter Visit Diagnoses Diagnosis Steroid-induced osteoporosis- Primary Fatigue, unspecified type documented in this encounter Care Teams Certified Prosthetist/Orthotist Relationship Specialty Start Date End Date Mendoza Parker MD PCP - General 02/18/17 06/12/20 documented as of this encounter
--- OUTSIDE RECORDS SUMMARY | 2024-11-19 04:53 | XMS_ITS | Encounter Summary ---
Author Organization [facility] Address [address] [place] [address] Care Team Providers Care Bucket Wash Operator Name Role Phone Mendoza Parker MD Primary Care Provider +1- [phone] Reason for Visit * Reason Comments Sleeping Problem New Encounter Details Date Type Department Care Team (Late st Contact Info) Description 09/04/2018 1:45 PM CDT Office Visit [facility] [address] [facility] [facility] [place] [address] Marcia Haider MD [address] [place] [address] [address] [place] [address] Obstructive sleep apnea syndrome (Primary Dx); Hypersomnia with sleep apnea; Obesity (BMI 30.0-34.9) Social History Tobacco Use Types Packs/Day Years Used Date Smoking Tobacco: Every Day Cigarettes Smokeless Tobacco: Never Alcohol Use Standard Drinks/Week Comments No 0 (1 standard drink = 0.6 oz pur e alcohol) Comments No Sex and Gender Information Value Date Recorded Sex Assigned at Not on file 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:46 AM HEEL CASER Gender Identity Not on file Sexual Orientation Not on file documented as of this encounter Last Filed Vital Signs Vital Sign Reading Time Taken Comments Blood Pressure 143/93 09/04/2018 2:09 PM CDT Pulse 86 09/04/2018 2:09 PM CDT Temperature - - Respiratory Rate - - Oxygen Saturation - - Inhaled Oxygen Concentration - - Weight 73.8 kg (162 lb 9.6 oz) 09/04/2018 2:09 P M CDT Height 152.4 cm (5') 09/04/2018 2:09 PM CDT Body Mass Index 31.76 09/04/2018 2:09 PM CDT documented in this encounter Ordered Prescriptions Prescription Sig Dispense Quantity Refills Last Filled Start Date End Date zolpidem (AMBIEN) 5 mg tabletIndications: Sleep-Onset Insomnia Take 1 tablet (5 mg total) by mouth nightly as needed for sleep. 30 tablet 1 09/04/2018 8 documented in this encounter Progress Notes * Marcia Haider MD - 09/04/2018 1:45 PM CDT Chief complaints: Snoring, difficulty falling asleep, unrefereshing sleep and hypersomnia HPI Ms Betancur presents for consultation. She has been referred by her non morse intercept technician KIM Curry for opinion regarding her above [...] Feels tired and fatigued in the daytime. [place] Sleepiness Scale score is 0. Does not [...] recommended to have assessment for sleepdisorder breathing. Past Medical History: Diagnosis Date ??? Disorder [...] vomiting) ??? Sleep apnea CPAP Social History Social History ??? Marital status: Spouse name: N/A ??? Number of children: N/A ??? Years of education: N/A Occupational History ??? Not on file. Social History Main Topics ??? Smoking status: Current Every Day Smoker Packs/day: 0.25 ??? Smokeless tobacco: Never Used ??? Alcohol use No ??? Drug use: No ??? Sexual activity: Not on file Other [...] dysphoric mood. The patient is nervous/anxious. BP 143/93 Pulse 86 Ht 152.4 cm (5') Wt 73.8 kg (162 lb 9.6 oz) BMI 31.76 kg/m?? Physical Exam Constitutional: She appears well-developed [...] moderate AHI with an index of 15.0. Compliance download reveals compliant and effective therapy patient is on automatic positive pressure therapy. The physiology of sleep disordered breathingand its increased association with hypertension, diabetes, heart arrhythmia, strokes, heart attacks, heart failure, hypersomnia, obesity and mood disorders was discussed. The patient was advised to improve compliance. Prescription for new supplies was given. Patient verbalizes understanding. 2. Delayed sleep phase cycle disorder: Patient's sleep scheduled is suggestive of circadian rhythm sleep disorder. Patient was discussed the above. Recommend chronotherapy, melatonin 1 mg 5 hr beforedesired bedtime. Consider bright light therapy as well. 3. Obesity: The effects of obesity obstructive sleep apnea syndrome and other morbidities was discussed. Recommended diet and exercise in losing weight. Patient verbalizes an understanding. documented in this encounter Plan of Treatment Not on file documented as of this encounter Visit Diagnoses Diagnosis Obstructive sleep apnea syndrome- Primary Obstructive sleep apnea (adult) (pediatric) Hypersomnia with sleep apnea Hypersomnia with sleep apnea, unspecified Obesity (BMI 30.0-34.9) documented in this encounter Discontinued Medications Medication Sig Discontinue Reason Start Date End Da te cyclobenzaprine (FLEXERIL) 10 mg tablet 2 times daily. Therapy completed 09/04/2018 cholecalciferol (VITAMIN D3) 2,000 unit capsule take 1 by Oral route every day Therapy completed 08/02/2013 09/04/2018 linaclotide (LINZESS) 290 mcg capsule take 1 capsule by oral route every day on an empty stomach at least 30 minutes before 1st meal of the day swallowing whole. Therapy completed 10/08/2014 09/04/2018 teriparatide (FORTEO) 20 mcg/dose - 600 mcg/2.4 mL injection INJECT 20mcg SUBCUTANEOUSLY ONCE DAILY. Therapy completed 06/30/2015 09/04/2018 zolpidem (AMBIEN) 10 mg tabletIndications:Sl eep-Onset Insomnia Take 10 mg by mouth nightly as needed for sleep. Therapy completed 09/04/2018 documented as of this encounter Care Teams Bucket Wash Operator Relationship Specialty Start Date End Date Mendoza Parker MD PCP - General 02/18/17 06/12/20 documented as of this encounter
--- OUTSIDE RECORDS SUMMARY | 2024-11-19 04:53 | XMS_ITS | Encounter Summary ---
Author Organization [facility] Address [address] [place] [address] Phone Care Team Providers Care Sales Manager [place] Name Role Phone Mendoza Parker MD Primary Care Provider +1- [phone] Reason for Visit * Reason Comments Rash Encounter Details Date Type Department Care Team (Late st Contact Info) Description 07/10/2018 2:10 PM CDT Office Visit [facility] [address] [place] [address] Mendoza Parker MD [address] [place] [id number] Poison shala dermatitis (Primary Dx) Social History Tobacco Use Types Packs/Day Years Used Date Smoking Tobacco: Every Day Cigarettes Smokeless Tobacco: Never Alcohol Use Standard Drinks/Week Comments No 0 (1 standard drink = 0.6 oz pur e alcohol) Comments Unknown Sex and Gender Information Value Date Recorded Sex Assigned at Not on file 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:46 AM SALT LIFTER Gender Identity Not on file Sexual Orientation Not on file documented as of this encounter Last Filed Vital Signs Vital Sign Reading Time Taken Comments Blood Pressure - - Pulse - - Temperature 37 ??C (98.6 ??F) 07/10/2018 2:22 PM CDT Respiratory Rate - - Oxygen Saturation - - Inhaled Oxygen Concentration - - Weight 73.5 kg (162 lb) 07/10/2018 2:22 PM CDT Height 152.4 cm (5') 07/10/2018 2:22 PM CDT Body Mass Index 31.64 07/10/2018 2:22 PM CDT documented in this encounter Ordered Prescriptions Prescription Sig Dispense Quantity Refills Last Filled Start Date End Date methylPREDNISolone (MEDROL DOSEPACK) 4 mg Dosepack Take as directed on package. 21 tablet 07/10/2018 8 documented in this encounter Progress Notes * Mendoza Parker MD - 07/10/2018 2:10 PM CDT Subjective/Objective Patient ID: Shivani Betancur is a 52 y.o. female. Chief Complaint Rash HPI Patient has poor is an IV from head to toe please see assessment and plans Review of Systems patient is here for sick call visit that involves poison shala review of systems otherwise negative Physical Exam Constitutional: She is oriented to person, place, and time. She appears well- developed and well-nourished. HENT: Head: Normocephalic and atraumatic. Eyes: Pupils are equal, round, and reactive to light. EOM are normal. Cardiovascular: Normal rate, regular rhythm, normal heart sounds and intact distal pulses. Pulmonary/Chest: Effort normal and breath sounds normal. Musculoskeletal: Normal range of motion. Neurological: She is alert and oriented to person, place, and time. Skin: Patient is a rash over face neck thorax and lower extremities rashes bilaterally consistent with poison shala dermatitis. Psychiatric: She has a normal mood and affect. Her behavior is normal. Judgment and thought contentnormal. Assessment/Plan Diagnoses and all orders for this visit: Poison shala dermatitis (Primary) Assessment & Plan: Patient's poor is an average from head [...] for this problem only at this visit. Other orders - methylPREDNISolone (MEDROL DOSEPACK) 4 mg Dosepack; Take as directed on package. documented in this encounter Miscellaneous Notes * Assessment & Plan Note - Mendoza Parker MD - 07/10/2018 5:40 PM CDT Associated Problem(s): Poison shala dermatitis (Resolved 11/16/2018) Patient's poor is an average from head [...] for this problem only at this visit. documented in this encounter Plan of Treatment Not on file documented as of this encounter Visit Diagnoses Diagnosis Poison shala dermatitis- Primary documented in this encounter Care Teams Sales Manager [place] Relationship Specialty Start Date End Date Mendoza Parker MD PCP - General 02/18/17 06/12/20 documented as of this encounter
--- OUTSIDE RECORDS SUMMARY | 2024-11-19 04:53 | XMS_ITS | Encounter Summary ---
Author Organization [facility] Address [address] [place] [address] Phone Care Team Providers Care Bonding Equipment Operator Name Role Phone Mendoza Parker MD Primary Care Provider +1- [phone] Encounter Details Date Type Department Care Team (Late st Contact Info) Description 08/17/[address] Medical Office [address] [place] [address] Urbano Delacruz MD [address] [phone] Social History Tobacco Use Types Packs/Day Years Used Date Smoking Tobacco: Every Day Cigarettes Smokeless Tobacco: Never Alcohol Use Standard Drinks/Week Comments No 0 (1 standard drink = 0.6 oz pur e alcohol) Comments No Sex and Gender Information Value Date Recorded Sex Assigned at Not on file 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:46 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 Her precert for Prolia is in [facility], I will send a request to precert to have precert in [facility] documented in this encounter Plan of Treatment Not on file documented as of this encounter Visit Diagnoses Not on filedocumented in this encounter Care Teams Bonding Equipment Operator Relationship Specialty Start Date End Date Mendoza Parker MD PCP - General 02/18/17 06/12/20 documented as of this encounter
--- OUTSIDE RECORDS SUMMARY | 2024-11-19 04:53 | XMS_ITS | Encounter Summary ---
Author Organization [facility] Address [address] [place] [address] Phone Care Team Providers Care Business Analyst Intern Name Role Phone Mendoza Parker MD Primary Care Provider +1- [phone] Encounter Details Date Type Department Care Team (Late st Contact Info) Description 08/17/2018 Orders Only [facility] [address] [place] [address] Urbano Delacruz MD [address] [phone] Osteoporosis, unspecified osteoporosis type, unspecified pathological fracture presence (Primary Dx) Social History Tobacco Use Types Packs/Day Years Used Date Smoking Tobacco: Every Day Cigarettes Smokeless Tobacco: Never Alcohol Use Standard Drinks/Week Comments No 0 (1 standard drink = 0.6 oz pur e alcohol) Comments No Sex and Gender Information Value Date Recorded Sex Assigned at Not on file 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:46 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 Gender Identity Not on file Sexual Orientation Not on file documented as of this encounter Plan of Treatment Scheduled Orders Name Type Priority Associated Diagnoses Orde r Schedule Basic metabolic panel Lab Routine Osteoporosis, unspecified osteoporosis type, unspecified pathological fracture presence Expected: 08/17/2018, Expires: 08/17/2019 Cortisol Lab Routine Osteoporosis, unspecified osteoporosis type, unspecified pathological fracture presence Expected: 08/17/2018, Expires: 08/17/2019 documented as of this encounter Visit Diagnoses Diagnosis Osteoporosis, unspecified osteoporosis type, unspecified pathological fracture presence- Primary documented in this encounter Care Teams Business Analyst Intern Relationship Specialty Start Date End Date Mendoza Parker MD PCP - General 02/18/17 06/12/20 documented as of this encounter
--- OUTSIDE RECORDS SUMMARY | 2024-11-19 04:53 | XMS_ITS | Encounter Summary ---
Author Organization [facility] Address [address] [place] [address] Care Team Providers Care Manager Eligibility Name Role Phone Mendoza Parker MD Primary Care Provider +1- [phone] Reason for Visit * Reason Comments Follow-up 6 month Encounter Details Date Type Department Care Team (Late st Contact Info) Description 11/16/2018 1:00 PM ANESTHESIOLOGIST Office Visit [facility] [address] [place] [address] Mendoza Parker MD [address] [address] Essential hypertension (Primary Dx) Social History Tobacco Use Types Packs/Day Years Used Date Smoking Tobacco: Every Day Cigarettes Smokeless Tobacco: Never Alcohol Use Standard Drinks/Week Comments No 0 (1 standard drink = 0.6 oz pur e alcohol) Comments No Sex and Gender Information Value Date Recorded Sex Assigned at Not on file 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:46 AM ANESTHESIOLOGIST Gender Identity Not on file Sexual Orientation Not on file documented as of this encounter Last Filed Vital Signs Vital Sign Reading Time Taken Comments Blood Pressure 136/90 11/16/2018 1:08 PM ANESTHESIOLOGIST Pulse 73 11/16/2018 1:08 PM ANESTHESIOLOGIST Temperature 36 ??C (96.8 ??F) 11/16/2018 1:08 PM ANESTHESIOLOGIST Respiratory Rate 16 11/16/2018 1:08 PM ANESTHESIOLOGIST Oxygen Saturation 94% 11/16/2018 1:08 PM ANESTHESIOLOGIST Inhaled Oxygen Concentration - - Weight 77.1 kg (170 lb) 11/16/2018 1:08 PM ANESTHESIOLOGIST Height 149.9 cm (4' 11 ) 11/16/2018 1:08 PM ANESTHESIOLOGIST Body Mass Index 34.34 11/16/2018 1:08 PM ANESTHESIOLOGIST documented in this encounter Progress Notes * Mendoza Parker MD - 11/16/2018 1:00 PM CST Subjective/Objective Patient ID: Shivani Betancur is a 53 y.o. female. Chief Complaint Follow-up (6 month) Follow-up visit 11/16/2018 no new symptoms since her last visit with me overall patient has improved. HPI Patient's multiple chronic health problem she sees pain clinic, arthritis ,neurologist her conditions stable at this time. His also been care behavioral health and is ongoing and she is doing well with respect to this. Patient reports a decrease in smoking. Review of Systems Constitutional: Negative. Negative for [...] The patient is not nervous/anxious. Physical Exam Assessment/Plan Diagnoses and all orders for this visit: Essential hypertension (I10) (Primary) Assessment & Plan: Hypertension is unchanged. Continue current treatment regimen. Dietary sodium restriction. Weight loss. Continue current medications. Blood pressure will be reassessed at the next regular appointment. THESIOLOGIST documented in this encounter Miscellaneous Notes * Assessment & Plan Note - Mendoza Parker MD - 01/06/2019 6:03 PM ANESTHESIOLOGIST Associated Problem(s): Essential hypertension Hypertension is unchanged. Continue current treatment regimen. Dietary sodium restriction. Weight loss. Continue current medications. Blood pressure will be reassessed at the next regular appointment. THESIOLOGIST documented in this encounter Plan of Treatment Not on file documented as of this encounter Visit Diagnoses Diagnosis Essential hypertension- Primary Unspecified essential hypertension documented in this encounter Discontinued Medications Medication Sig Discontinue Reason Start Date End Da te DULoxetine DR (CYMBALTA) 60 mg capsule take 1 capsule by oral route Dose adjustment 03/14/2014 11/16/2018 AFLURIA QUAD [id number] 60 mcg/0.5 mL suspension Therapy completed 09/14/201811/16 ergocalciferol (VITAMIN D) 50,000 unit capsule TAKE ONE CAPSULE ONCE A WEEK FOR 8 WEEKS Therapy completed 04/25/2012 11/16/2018 nebivolol (BYSTOLIC) 10 mg tablet Take 1 tablet (10 mg total) by mouth daily. 08/15/2018 11/16/2018 documented as of this encounter Historical Medications * This list may reflect changes made after this encounter. nebivolol (BYSTOLIC) 20 mg tablet Take 20 mg by mouth 2 (two) times a day. 01/16/2019 added in this encounter Care Teams Manager Eligibility Relationship Specialty Start Date End Date Mendoza Parker MD PCP - General 02/18/17 06/12/20 documented as of this encounter
--- OUTSIDE RECORDS SUMMARY | 2024-11-19 04:53 | XMS_ITS | Encounter Summary ---
Author Organization [facility] Address [address] [place] [address] Phone Care Team Providers Care Manager Of Manufacturing Name Role Phone eMndoza Parker MD Primary Care Provider +1- [phone] Encounter Details Date Type Department Care Team (Late st Contact Info) Description 10/04/[address] [place] [address] Urbano Delacruz MD [address] [phone] Social History Tobacco Use Types Packs/Day Years Used Date Smoking Tobacco: Every Day Cigarettes Smokeless Tobacco: Never Alcohol Use Standard Drinks/Week Comments No 0 (1 standard drink = 0.6 oz pur e alcohol) Comments No Sex and Gender Information Value Date Recorded Sex Assigned at Not on file 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:46 AM BILINGUAL TEACHER ASSISTANT Gender Identity Not on file Sexual Orientation Not on file documented as of this encounter Miscellaneous Notes * Telephone Encounter - Phoebe Arroyo RN - 10/04/2018 1:51 PM CST I returned patients call/voicemail message, but had to leave a message asking the patient to call the office back. NGUAL TEACHER ASSISTANT documented in this encounter Plan of Treatment Not on file documented as of this encounter Visit Diagnoses Not on filedocumented in this encounter Care Teams Manager Of Manufacturing Relationship Specialty Start Date End Date Mendoza Parker MD PCP - General 02/18/17 06/12/20 documented as of this encounter
--- OUTSIDE RECORDS SUMMARY | 2024-11-19 04:53 | XMS_ITS | Encounter Summary ---
Author Organization [facility] Address [address] [place] [address] Phone Care Team Providers Care Charge Account Identification Clerk Name Role Phone Mendoza Parker MD Primary Care Provider +1- [phone] Reason for Visit * Reason Comments Osteopenia * Diagnostic Imaging (Routine) - Closed Specialty Diagnoses / Procedures Referred By Contac t Referred To Contact Diagnoses Osteoporosis, unspecified osteoporosis type, unspecified pathological fracture presence Procedures Dexa Axial Skeleton Bone Density 1 or 2 Site Urbano Delacruz MD Phone: tel: fax: [facility] (All Locations) Referral ID Status Reason Start Date Expiration Date Visits Re quested Visits Authorized [id number] Closed 04/05/2018 04/05/[phone] Encounter Details Date Type Department Care Team (Latest Contact Info) Description 10/16/2018 1:00 PM CLINICAL TRIAL SPECIALIST Clinical Support [address] [facility] [address] [place] [address] [place] [address] Osteoporosis, unspecified osteoporosis type, unspecified pathological fracture presence Social History Tobacco Use Types Packs/Day Years Used Date Smoking Tobacco: Every Day Cigarettes Smokeless Tobacco: Never Alcohol Use Standard Drinks/Week Comments No 0 (1 standard drink = 0.6 oz pur e alcohol) Comments No Sex and Gender Information Value Date Recorded Sex Assigned at Not on file 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:46 AM CLINICAL TRIAL SPECIALIST Gender Identity Not on file Sexual Orientation Not on file documented as of this encounter Plan of Treatment Not on file documented as of this encounter Procedures Procedure Name Priority Date/Time Associated Diagnosis Comments DEXA AXIAL SKELETON BONE DENSITY 1 OR MORE SITES Schedule Routine, Read Routine (OP Routine) 10/16/2018 1:28 PM CLINICAL TRIAL SPECIALIST Osteoporosis, unspecified osteoporosis type, unspecified pathological fracture presence documented in this encounter Results * Dexa Axial Skeleton Bone Density 1 or 2 Site (10/16/2018 1:28 PM CLINICAL TRIAL SPECIALIST) Anatomical Region Laterality Modality Body N/A Radiographic Krupa ging Narrative 10/18/2018 10:55 AM CLINICAL TRIAL SPECIALIST Patient Name: Shivani Betancur Date of : 1965 Date of scan: 10/16/2018 Bone mineral density was performed on a [employer] Discovery Densitometer. ?? Machine Cross-calibration and Precision studies have been performed with a least significant change of 0.024 g/cm at the spine, 0.020 g/cm at the total proximal femur, and 0.014g/cm at the forearm. HISTORY: ??This is a 53 y.o. postmenopausal female with a history of low bone mass, multiple fractures and vitamin D deficiency. Currently on treatment with Estrogen, vitamin D, Previously treated with Forteo, hormone replacement therapy and Reclast. With a current complaint of back, neck, arm and leg pain. History of tobacco use: History Smoking Status ? ? Current Every Day Smoker ? ? Packs/day: 0.25 INDICATIONS: Menopause status, vitamin D deficiency and history of low bone mass. FINDINGS: BONE MINERAL DENSITY OF THE LUMBAR SPINE Bone Mineral Density (BMD) of the lumbar spine was measured from L1-L4 and the average density was calculated to be 0.931 gm/cm. This corresponds to a T-score standard deviations from the mean of young adults of -1.1. When compared to the previous study of 10/10/2017 there has been no significant change noted. BONE MINERAL DENSITY OF THE PROXIMAL FEMUR Bone Mineral Density (BMD) of the left hip total was found to be 1.016 gm/cm2. This corresponds to a T-score standard deviations from the mean of young adults of 0.6. Femoral neck is 0.781 gm/cm2 with a T-score ??of -0.6. When compared to the previous study of 10/10/2017 ??there has been a measured 0.026 gm/cm 2.6 % increase which is considered significant. SUMMARY: Bone mineral density shows evidence of low bone mass in the spine and moderately increased fracture risk. There has been significant increase in bone mineral density since previous measurement. ADDITIONAL COMMENTS: If the patient [...] bone mineral density scan were prepared by Jael Cuevas) who is accredited by the International Society of Clinical Densitometry. The overall patient assessment and scan interpretation were performed by Urbano Delacruz M.D. who is certified by the International Society of Clinical Densitometry. [id number] Urbano Delacruz MD IMG DXA PROCEDURES Edited Resul t - Final documented in this encounter Visit Diagnoses Diagnosis Osteoporosis, unspecified osteoporosis type, unspecified pathological fracture presence documented in this encounter Care Teams Charge Account Identification Clerk Relationship Specialty Start Date End Date Mendoza Parker MD PCP - General 02/18/17 06/12/20 documented as of this encounter
--- OUTSIDE RECORDS SUMMARY | 2024-11-19 04:53 | XMS_ITS | Encounter Summary ---
Author Organization [facility] Medical [facility] Address [address] [place] [address] Care Team Providers Care Clinical Review Nurse Name Role Phone Mendoza Parker MD Primary Care Provider +1- [phone] Reason for Referral * Diagnostic Imaging (Routine) - Closed Specialty Diagnoses / Procedures Referred By Contac t Referred To Contact Radiology Diagnoses Seizure-like activity (HCC) Brain mass Procedures MRI Brain W WO Contrast Jones Younger MD Phone: tel: fax: [address] [address] Referral ID Status Reason Start Date Expiration Date Visits Re quested Visits Authorized [id number] Closed 09/19/2018 03/30/2020 1 1 * Neurology (Routine) - Closed Specialty Diagnoses / Procedures Referred By Contac t Referred To Contact Diagnoses Seizure-like activity (HCC) Procedures EEG Jones Younger MD Phone: tel: fax: Referral ID Status Reason Start Date Expiration Date Visits Re quested Visits Authorized [id number] Closed 09/19/2018 03/30/2020 1 1 Reason for Visit * Reason Comments New Patient Seizure like activit y Encounter Details Date Type Department Care Team (Late st Contact Info) Description 09/19/2018 1:00 PM CDT Office Visit [facility] [address] [place] [address] [address] [place] [address] Jones Younger MD [address] [place] [address] [address] [place] [address] Seizure-like activity (CMS/HCC) (Primary Dx); Brain mass Social History Tobacco Use Types Packs/Day Years Used Date Smoking Tobacco: Every Day Cigarettes Smokeless Tobacco: Never Alcohol Use Standard Drinks/Week Comments No 0 (1 standard drink = 0.6 oz pur e alcohol) Comments No Sex and Gender Information Value Date Recorded Sex Assigned at Not on file 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 Gender Identity Not on file Sexual Orientation Not on file documented as of this encounter Last Filed Vital Signs Vital Sign Reading Time Taken Comments Blood Pressure 141/98 09/19/2018 12:57 PM CDT Pulse 89 09/19/2018 12:57 PM CDT Temperature - - Respiratory Rate - - Oxygen Saturation - - Inhaled Oxygen Concentration - - Weight 76.9 kg (169 lb 9.6 oz) 09/19/2018 12:57 PM CDT Height 152.4 cm (5') 09/19/2018 12:57 PM CDT Body Mass Index 33.12 09/19/2018 12:57 PM CDT documented in this encounter Progress Notes * Jones Younger MD - 09/19/2018 1:00 PM CDT Subjective/Objective Patient ID: Shivani Betancur is a 53 y.o. female. Chief Complaint This is a 53 y.o. female who is referred by Dr. Mendoza Parker MD for consultation of seizure HPI The last episode was about a few months. She was sitting and smoking. She felt ringing in the ear and shaky legs. She felt that she was having trouble to support herself with legs. She managed to walk inside, then all symptoms resolved. Anther episode was when she was teenager. She was in a democrat. She passed out and was confused. People was asking if she was ok. She smoked Marijuana. So far, these are two episodes she had. No other seizure like episode or passing out episode. She is a very poorhistorian. Past Medical History: Diagnosis Date ??? Disorder [...] nausea and vomiting) ??? Sleep apnea CPAP Allergies Allergen Reactions ??? Ciprofloxacin Shortness of [...] Itching and Nausea only Reaction: Itching, Nausea, Current Outpatient Prescriptions Medication Sig Dispense Refill ??? cczyrnyombfgl-dnomgyx-qpkzjatm (EXCEDRIN MIGRAINE) 250-250-65 mg per tablet 1-2 per week ??? AFLURIA QUAD 3360-3337 60 mcg/0.5 mL suspension ??? atorvastatin (LIPITOR) 20 mg tablet TAKE ONE TABLET BY MOUTH ONCE DAILY 90 tablet 1 ??? azelastine 0.15 % (205.5 mcg) spray,non-aerosol SPRAY 1 SPRAY INTO EACH NOSTRIL TWICE A DAY (Patient taking differently: SPRAY 1 SPRAY INTO EACH NOSTRIL Nightly) 30 mL 3 ??? calcium carbonate-vitamin D3 (CALCIUM 500 + D) 1,250mg (500mg elemental) - 200 units per tablet ??? cyclobenzaprine (FLEXERIL) 10 mg tablet Take 10 mg by mouth 3 (three) times a day as needed. ??? DULoxetine DR (CYMBALTA) 30 mg capsule ??? DULoxetine DR (CYMBALTA) 60 mg capsule take 1 capsule by oral route maxi day (Patient taking differently: Take 20 mg by mouth daily. ) 90 0 ??? ECOTRIN LOW STRENGTH 81 mg tablet TAKE ONE TABLET BY MOUTH ONCE DAILY 90 tablet 1 ??? ergocalciferol (VITAMIN D) 50,000 unit capsule TAKE ONE CAPSULE ONCE A WEEK FOR 8 WEEKS ??? estradiol (ESTRACE) 0.01 % (0.1 mg/gram) vaginal cream INSERT 1/2 TO 1 GRAM VAGINALLY 1 TO 2 TIMES PER WEEK 42.5 0 ??? HYDROcodone-acetaminophen (NORCO) 5-325 mg per tablet Take 1 tablet by mouth every 6 (six) hours as needed. 0 ??? isosorbide mononitrate ER (IMDUR) 60 mg 24 hr tablet TAKE ONE TABLET BY MOUTH ONCE DAILY 90 tablet 1 ??? lubiprostone (AMITIZA) 24 mcg capsule Take 24 mcg by mouth daily with breakfast. ??? nebivolol (BYSTOLIC) 10 mg tablet Take 1 tablet (10 mg total) by mouth daily. 30 tablet 0 ??? khbjzfgv-mwzdkzahl-ycbicnmrvinao (MAXITROL) 3.5mg/mL-10,000 unit/mL-0.1 % ophthalmic suspension ??? omeprazole (PriLOSEC) 40 mg capsule TAKE ONE CAPSULE BY MOUTH ONCE DAILY (Patient taking differently: TAKE ONE CAPSULE BY MOUTH ONCE nightly) 30 capsule 0 ??? pen needle, diabetic (BD ULTRA-FINE MINI PEN NEEDLE) 31 gauge x 3/16 needle use one needle daily with Forteo Pen ??? pregabalin (LYRICA) 75 mg capsule take 1 capsule by oral route 2 times every day (Patient taking differently: Take 75 mg by mouth 3 (three) times a day. ) 0 0 ??? zolpidem (AMBIEN) 5 mg tablet Take 1 tablet (5 mg total) by mouth nightly as needed for sleep. 30 tablet 1 No current facility-administered medications for this visit. has a current medication list which includes the following prescription(s): nodldotftvixk-cyowsnv-rpejhxwn, afluria quad 8442-0729, atorvastatin, azelastine, calcium carbonate-vitamin d3, cyclobenzaprine, duloxetine dr, cymbalta, ecotrin low strength, ergocalciferol, estrace, hydrocodone-acetaminoph en, isosorbide mononitrate er, lubiprostone, nebivolol, lzsqacfo-ylvuogjjk-lmpxookvzktro, omeprazole, pen needle, diabetic, lyrica, and zolpidem. Family History Problem Relation Age of Onset [...] disease; ??? Stroke Other Stroke; Social History Social History ??? Marital status: [...] of Domenstic Violence: y Review of Systems Constitutional: No weight loss/gain, Fatigue, excessive sweating, fever, chills HEENT: No headache/migraine, hearing loss,change in vision, cataracts Respiratory: No trouble breathing, coughing/wheezing, asthma, snoring Muscle skeletal: No joint pain, muscle pain, back pain, neck pain, limb pain Cardiovascular: No chest pain, palpitations, irregular heart beat, passing out, fainting Vascular: NoTingling, numbness, swelling, discoloration of the extremities Gastrointestinal: No nausea, vomiting, diarrhea, abdominal pain Neurologic: No tremors, weakness, numbness, changes in gait, changes in memory Genitourinary: No painful urination, difficulty urination, frequent urination, urinary incontinence, discoloration of urine Reproductive: No hot flash, changes in libido, sexual transmitted disease Metabolic//Endocrine: No sensitivity to heat/cold, abnormal sleep pattern, skin change No hot flash. Psychiatric: No anxiety, depression, mood swings BP 141/98 Pulse 89 Ht 152.4 cm (5') Wt 76.9 kg (169 lb 9.6 oz) BMI 33.12 kg/m?? Physical Exam Constitutional: well-developed, well-nourished and in no acute stress. Head/Neck: atraumatic, no deformity or stiffness of neck Ears, Nose, Mouth and Throat: No ear tenderness, rhinorrhea, dry mouth or redness of throat. Eyes: Conjunctiva is clear. Sclera normal in color. Eyelid is normal Cardiovascular: S1, S2 are regular. No rubs or gallops Respiratory: clear bilaterally. No rales or wheezing. Adequate air entry Musculoskeletal: no atrophy, Tenderness or abnormal movement Extremities: no edema, cyanosis or deformities Skin: no rashes or lesions Psychiatric: normal mood and affect. Judgment and insight appear intact Mental status: alert, speech fluent, comprehension intact, Follow command appropriately Cranial nerve: CHRISTIANE, corneal reflex present. EOMI, VFF by confrontation method. Facial sensations symmetrical. Face symmetrical. shoulder shrug symmetrical b/l. tongue midline. Motor: bulk normal, tone normal, pronator drift negative. Strength 5/5. No abnormal movement. Coordination: FTN normal Reflexes: Biceps 2+ b/l, Triceps 2+ b/l, Knee reflex 2+ b/l, Achilles reflex 2+ b/l. plantar downward b/l. Sensation: LT Normal and symmetrical. Gait: not assessed Assessment/Plan This is a 53 y.o. female who is referred by Dr. Mendoza Parker MD for consultation of seizure.Patient is a very poor historian. The history is very vague. CT of head showed possible right frontal extra-axial mass. Diagnoses and all orders for this visit: Seizure-like activity (CMS/HCC) (Primary) - EEG; Future - MRI Brain W WO Contrast; Future Brain mass - MRI Brain W WO Contrast; Future Review of investigations: 1. 08/15/2018 CT of head without: Extra-axial small mass over right frontal region. I reviewed the image. 2. 08/15/2018 EKG: Sinus rhythm. HR 77. 3. 08/15/2018: CMP normal except creatinine 0.58. CBC normal except WBC 10.5. Return in about 2 weeks (around 10/03/2018). documented in this encounter Plan of Treatment Not on file documented as of this encounter Results * MRI Brain W WO Contrast (09/28/2018 1:25 PM PLATER BARREL) Anatomical Region Laterality Modality Head and Neck N/A Magnetic Resonan ce 09/28/2018 1:49 PM PLATER BARREL Impressions 09/28/2018 1:53 PM PLATER BARREL 1. ??No acute intracranial process or abnormal enhancement. 2. ??Evidence of mild small vessel disease. Electronically signed by: Servando Wills M.D. Narrative 09/28/2018 1:53 PM PLATER BARREL EXAM: MRI BRAIN W WO CONTRAST HISTORY: seizure. extra-axial right frontal mass. COMPARISON: None TECHNIQUE: Multiplanar multisequence utilizing 15 mL Dotarem FINDINGS: Increased T2/flair signal is present in the periventricular white matter suggesting some small vessel disease. ??No midline shift or extra-axial fluid collections are seen. ??No restricted diffusion is evident to indicate acute or subacute ischemia. ??Appropriate intracranial flow voids are seen. ??The orbits, periorbital spaces, and pericavernous spaces are normal. ??No abnormality of the skull base or calvarium is seen. ??No abnormal enhancement is seen. Procedure Note Servando Wills MD - 09/28/2018 EXAM: MRI BRAIN W WO CONTRAST HISTORY: seizure. extra-axial right frontal mass. COMPARISON: None TECHNIQUE: Multiplanar multisequence utilizing 15 mL Dotarem FINDINGS: Increased T2/flair signal is present in the periventricular white matter suggesting some small vessel disease. No midline shift or extra-axial fluid collections are seen. No restricted diffusion is evident to indicate acute or subacute ischemia. Appropriate intracranial flow voids are seen. The orbits, periorbital spaces, and pericavernous spaces are normal. No abnormality of the skull base or calvarium is seen. No abnormal enhancement is seen. IMPRESSION: 1. No acute intracranial process or abnormal enhancement. 2. Evidence of mild small vessel disease. Electronically signed by: Servando W. Stockmann, M.D. us Jones Younger MD IMG MRI PROCEDURES Celia l Result * EEG (09/26/2018 2:47 PM PLATER BARREL) Anatomical Region Laterality Modality EEG Narrative 10/03/2018 10:49 AM PLATER BARREL History: This is a 53 years old [...] in this tracing. ??Clinical correlation is recommended. Jones Younger MD NEUROLOGY ORDERABLES Fi nal Result documented in this encounter Visit Diagnoses Diagnosis Seizure-like activity (HCC)- Primary Brain mass Unspecified condition of brain Seizure-like activity (HCC) Seizure-like activity (HCC) Brain mass Unspecified condition of brain documented in this encounter Historical Medications * This list may reflect changes made after this encounter. Medication Sig Dispense Quantity Refills Last Filled Start D ate End Date AFLURIA QUAD 60 mcg/0.5 mL suspension 09/14/2018 11/16/2018 added in this encounter Care Teams Clinical Review Nurse Relationship Specialty Start Date End Date Mendoza Parker MD PCP - General 02/18/17 06/12/20 documented as of this encounter
--- OUTSIDE RECORDS SUMMARY | 2024-11-19 04:53 | XMS_ITS | Encounter Summary ---
Author Organization [facility] Address [address] [facility] [address] [place] [address] Phone Care Team Providers Care Cleaner And Polisher Name Role Phone Mendoza Parker MD Primary Care Provider [phone]- [phone] Reason for Visit * Reason Onset Date Comments Treatment Plan Update 10/18/2018 New Prolia Encounter Details Date Type Department Care Team (Late st Contact Info) Description 10/18/[address] [place] [address] Urbano Delacruz MD [facility] [address] [address] Treatment Plan Update (New Prolia ) Social History Tobacco Use Types Packs/Day Years Used Date Smoking Tobacco: Every Day Cigarettes Smokeless Tobacco: Never Alcohol Use Standard Drinks/Week Comments No 0 (1 standard drink = 0.6 oz pur e alcohol) Comments No Sex and Gender Information Value Date Recorded Sex Assigned at Not on file 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:46 AM MANAGER DISH Gender Identity Not on file Sexual Orientation Not on file documented as of this encounter Miscellaneous Notes * Telephone Encounter - Mohinder Escamilla MA - 10/25/2018 11:04 AM MANAGER DISH I spoke with Shivani today and she is aware to contact [facility] to schedule for Prolia. I have placed the order for the appointment request. GER DISH * Telephone Encounter - Melanie Santos MA - 10/24/2018 1:54 PM CST Left message for pt to call office. Pt ready to be scheduled for Prolia GER DISH * Telephone Encounter - Estefania Garcia BCameron - 10/23/2018 3:52 PM CST PLAN IS ACTIVE BS ID# [id number] PT HAS $1000 ($995) DED. ONCE MET, PLAN PAYS 90% TIL $3000 (MET) OOP IS MET AUTH# [id number] IS VALID 03/10/18-02/07/19 FOR PROLIA (MAY BUY N BILL) REF# ISABEL [id number] GER DISH * Telephone Encounter - Kelli Cruz DNP - 10/20/2018 2:11 PM CST Done GER DISH * Telephone Encounter - Melanie Santos MA - 10/20/2018 12:57 PM CST Therapy Plan Needed for [facility] (10th floor cam) Please check pt insurance for Prolia and once completed please send back. Thanks In Advance GER DISH * Telephone Encounter - Melanie Santos MA - 10/18/2018 3:21 PM CST Images from the original note were not included. Urbano Delacruz MD P [facility] Clinical Pool ?Check vitamin D and CMP today, Addendum; ??reviewed within normal limits. Schedule prolia [place] [facility]. Left message for pt to call office GER DISH documented in this encounter Plan of Treatment Not on file documented as of this encounter Visit Diagnoses Diagnosis Osteoporosis, unspecified osteoporosis type, unspecified pathological fracture presence- Primary documented in this encounter Orders Appointment Requests Count Last Ordered Date Fi rst Ordered Date INFUSION APPT REQUEST 30 MIN 1 11/03/2018 documented in this encounter Care Teams Cleaner And Polisher Relationship Specialty Start Date End Date Mendoza Parker MD PCP - General 02/18/17 06/12/20 documented as of this encounter
--- OUTSIDE RECORDS SUMMARY | 2024-11-19 04:53 | XMS_ITS | Encounter Summary ---
Author Organization [facility] Address [address] [place] [address] Phone Care Team Providers Care Healthcare Representative Name Role Phone Mendoza Parker MD Primary Care Provider +1- [phone] Reason for Visit * Reason Onset Date Comments wants prednisone 07/14/2018 Encounter Details Date Type Department Care Team (Late st Contact Info) Description 07/14/2018 Telephone [facility] [address] [place] [address] Mendoza Parker MD [address] [place] [phone] wants prednisone Social History Tobacco Use Types Packs/Day Years Used Date Smoking Tobacco: Every Day Cigarettes Smokeless Tobacco: Never Alcohol Use Standard Drinks/Week Comments No 0 (1 standard drink = 0.6 oz pur e alcohol) Comments Unknown Sex and Gender Information Value Date Recorded Sex Assigned at Not on file 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:46 AM SUGAR CANE PLANTER Gender Identity Not on file Sexual Orientation Not on file documented as of this encounter Miscellaneous Notes * Telephone Encounter - Marguerite Scales, JC - 07/14/2018 2:21 PM CDT I spoke with Shivani and let her know that she needs to finish her steroids and give them time to work over the weekend I also let her know that she can use Zyrtec per wo from Dr. Parker and that if she and her husbandare not both taking this to start and there is a duplicate message on him d/t exact same problem. She verbalized understanding and said she would pick some up and start taking it. She will call us on Tuesday if no better.-tyk * Telephone Encounter - Mary Carmen. - 07/14/2018 1:31 PM CDT Has poison shala, received mediation. States has new sxs but when came in she was just starting the outbreak. States: Face is swollen More of a rash on stomach and chest -itching is getting better except in the new areas. -has one day left of the 4 mg -asking for a rx of the 20 mg of Prednisone Pharm: [facility] in [place] documented in this encounter Plan of Treatment Not on file documented as of this encounter Visit Diagnoses Not on filedocumented in this encounter Care Teams Healthcare Representative Relationship Specialty Start Date End Date Mendoza Parker MD PCP - General 02/18/17 06/12/20 documented as of this encounter
--- OUTSIDE RECORDS SUMMARY | 2024-11-19 04:53 | XMS_ITS | Encounter Summary ---
Author Organization [facility] Medical [facility] Address [address] [place] [address] Care Team Providers Care Superintendent Tests Name Role Phone Mendoza Parker MD Primary Care Provider +1- [phone] Reason for Visit * Reason Comments Follow-up Follow up after test ing Encounter Details Date Type Department Care Team (Late st Contact Info) Description 10/03/2018 2:00 PM HOT METAL CAR OPERATOR Office Visit [facility] [address] [place] [address] Jones Younger MD [address] [place] [address] [address] [place] [address] Seizure-like activity (CMS/HCC) (Primary Dx); Brain mass Social History Tobacco Use Types Packs/Day Years Used Date Smoking Tobacco: Every Day Cigarettes Smokeless Tobacco: Never Alcohol Use Standard Drinks/Week Comments No 0 (1 standard drink = 0.6 oz pur e alcohol) Comments No Sex and Gender Information Value Date Recorded Sex Assigned at Not on file 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:46 AM HOT METAL CAR OPERATOR Gender Identity Not on file Sexual Orientation Not on file documented as of this encounter Last Filed Vital Signs Vital Sign Reading Time Taken Comments Blood Pressure 175/109 10/03/2018 2:09 PM HOT METAL CAR OPERATOR Pulse 78 10/03/2018 2:09 PM HOT METAL CAR OPERATOR Temperature - - Respiratory Rate - - Oxygen Saturation - - Inhaled Oxygen Concentration - - Weight 74.8 kg (165 lb) 10/03/2018 2:09 PM HOT METAL CAR OPERATOR Height 152.4 cm (5') 10/03/2018 2:09 PM HOT METAL CAR OPERATOR Body Mass Index 32.22 10/03/2018 2:09 PM HOT METAL CAR OPERATOR documented in this encounter Progress Notes * Jones Younger MD - 10/03/2018 2:00 PM CST Subjective/Objective Patient ID: Shivani Betancur is a 53 y.o. female. Chief Complaint Follow-up (Follow up after testing) HPI For details, see 09/19/2018 note. Since last visit on 09/19/2018, patient did not have any new seizure like episode. I talked to . He never saw a seizure episode. MRI of brain did not show any acute intracranial process or significant encephalomalacia. It did show a small right extra-axial meningeal based mass suggestive of a meningioma. EEG did not show any epileptiform discharge. Past Medical History: Diagnosis Date ??? Disorder [...] Diverticulosis ??? HX OTHER MEDICAL migraines; Comments: [facility] 11/27/2015 - ??? HX OTHER MEDICAL chronic joint pain; Comments: [facility] 11/27/2015 - ??? HX OTHER MEDICAL neuropathy; Comments: [facility] 11/27/2015 - ??? Hyperlipidemia ??? Hypertension Hypertension [...] Outpatient Prescriptions Medication Sig Dispense Refill ??? xkmlscmtxcchq-tsfbhhn-csinwltf (EXCEDRIN MIGRAINE) 250-250-65 mg per tablet 1-2 per week ??? AFLURIA QUAD 2540-9811 60 mcg/0.5 mL suspension ??? atorvastatin (LIPITOR) [...] capsule take 1 capsule by oral route (Patient taking differently: Take 20 mg by [...] by mouth daily. 30 tablet 0 ??? nyupuozh-onezcgmem-ksvvssemddrsj (MAXITROL) 3.5mg/mL-10,000 unit/mL-0.1 % ophthalmic suspension ??? [...] medication list which includes the following prescription(s): vdrklydnmxliy-zrxvppj-nvevthgq, afluria quad 7024-7095, atorvastatin, azelastine, calcium carbonate-vitamin d3, cyclobenzaprine, duloxetine dr, cymbalta, ecotrin low strength, ergocalciferol, estrace, hydrocodone-acetaminoph en, isosorbide mononitrate er, lubiprostone, nebivolol, gmxwmcyd-bcvqmdcsf-ivradmhjzygvi, omeprazole, pen needle, diabetic, lyrica, and zolpidem. [...] Psychiatric: No anxiety, depression, mood swings BP 175/109 Pulse 78 Ht 152.4 cm (5') Wt 74.8 kg (165 lb) BMI 32.22 kg/m?? Physical Exam Constitutional: well-developed, well-nourished and [...] poor historian. The history is very vague. can not establish diagnosis of seizureat this point. CT of head showed possible right frontal extra-axial mass. MRI of brain confirmed right frontal extra-axial mass which is most likely meningioma. EEG is unremarkable Diagnoses and all orders for this visit: Seizure-like activity (CMS/HCC) (Primary) 1. Will not treatment because of lack of evidence for seizure. 2. Instructed patient to call if she has another seizure like episode. Brain mass 1. Will consider repeat MRI of the brain with/without in 1 year. Will followup with corina in one year. Past investigations: 1. 08/15/2018 CT of head without: Extra-axial small mass over right frontal region. I reviewed the image. 2. 08/15/2018 EKG: Sinus rhythm. HR 77. 3. 08/15/2018: CMP normal except creatinine 0.58. CBC normal except WBC 10.5. New test result for current visit on 10/03/2018: 4. 09/28/2018 MRI of brain with/without: No acute intracranial process. No significant encephalomalacia. Small right frontal extra-axial enhancing mass lesion suggestive of meningioma. I Reviewed the image. 5. 09/26/2018 EEG: No epileptiform discharge. Return in about 1 year (around 10/03/2019), or with [facility]. METAL CAR OPERATOR documented in this encounter Plan of Treatment Not on file documented as of this encounter Visit Diagnoses Diagnosis Seizure-like activity (HCC)- Primary Brain mass Unspecified condition of brain documented in this encounter Care Teams Superintendent Tests Relationship Specialty Start Date End Date Mendoza Parker MD PCP - General 02/18/17 06/12/20 documented as of this encounter
--- OUTSIDE RECORDS SUMMARY | 2024-11-19 04:53 | XMS_ITS | Encounter Summary ---
Author Organization [facility] Address [address] [place] [address] Phone Care Team Providers Care Information Security Risk Analyst Name Role Phone Mendoza Parker MD Primary Care Provider +1- [phone] Encounter Details Date Type Department Care Team (Late st Contact Info) Description 10/16/2018 3:10 PM MORTGAGE PROCESSOR Lab [facility] Endocrinology Metabolism and Lipid [address] 5th [place] [address] [place] [id number] Age-related osteoporosis without current pathological fracture Social History Tobacco Use Types Packs/Day Years Used Date Smoking Tobacco: Every Day Cigarettes Smokeless Tobacco: Never Alcohol Use Standard Drinks/Week Comments No 0 (1 standard drink = 0.6 oz pur e alcohol) Comments No Sex and Gender Information Value Date Recorded Sex Assigned at Not on file 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:46 AM MORTGAGE PROCESSOR Gender Identity Not on file Sexual Orientation Not on file documented as of this encounter Plan of Treatment Not on file documented as of this encounter Procedures Procedure Name Priority Date/Time Associated Diagnosis Comments VITAMIN D 25 HYDROXY Routine 10/16/2018 2:33 PM MORTGAGE PROCESSOR Age-related osteoporosis without current pathological fracture BASIC METABOLIC PANEL Routine 10/16/2018 2:33 PM MORTGAGE PROCESSOR Age-related osteoporosis without current pathological fracture documented in this encounter Results * (ABNORMAL) Basic metabolic panel (10/16/2018 2:33 PM MORTGAGE PROCESSOR) Glucose 100(H) 64 - 99 mg/dL [facility] Comment: NONFASTING GLUCOSE RANGE = 64-199 mg/dL FASTING GLUCOSE 64 - 99 = NORMAL FASTING GLUCOSE 100 - 125 = IMPAIRED FASTING GLUCOSE FASTING GLUCOSE >=126 = PROVISIONAL DIAGNOSIS OF DIABETES Potassium 4.1 3.3 - 5.1 mmol/L [facility] Creatinine 0.66 0.60 - 1.10 mg/dL [facility] BUN 13 7 - 23 mg/dL [facility] Sodium 143 135 - 145 mmol/L [facility] Chloride 105 95 - 107 mmol/L [facility] CO2 Content 24 21 - 29 mmol/L [facility] Calcium 9.0 8.6 - 10.3 mg/dL [facility] eGFR NON-AFR. WELSH >90.0 >60.0 mL/min/1.7 3 m2 [facility] eGFR >90.0 >60.0 mL/min/1.7 3 m2 [facility] Blood specimen (specimen) 10/16/2018 2:33 PM MORTGAGE PROCESSOR 10/16/2018 3:48 PM MORTGAGE PROCESSOR Urbano Delacruz MD LAB BLOOD ORDERABLES Final Resu lt [facility] CORE LAB [facility] * Vitamin D 25 hydroxy (10/16/2018 2:33 PM MORTGAGE PROCESSOR) Vitamin D 36.9 30.0 - 100.0 ng/mL [facility] Comment: VITAMIN D DEFICIENCY = LESS THAN 20 ng/mL) ? VITAMIN D INSUFFICIENCY = LESS THAN 30 ng/mL ? RECOMMENDED NORMAL RANGE = 30-100 ng/mL Blood specimen (specimen) 10/16/2018 2:33 PM MORTGAGE PROCESSOR 10/16/2018 3:48 PM MORTGAGE PROCESSOR Urbano Delacruz MD LAB BLOOD ORDERABLES Final Resu lt [facility] CORE [facility] documented in this encounter Visit Diagnoses Diagnosis Age-related osteoporosis without current pathological fracture documented in this encounter Care Teams Information Security Risk Analyst Relationship Specialty Start Date End Date Loco, Mendoza R., MD PCP - General 02/18/17 06/12/20 documented as of this encounter
--- OUTSIDE RECORDS SUMMARY | 2024-11-19 04:53 | XMS_ITS | Encounter Summary ---
Author Organization [facility] Address [address] [place] [address] Phone Care Team Providers Care Rougher Machine Operator Name Role Phone Mendoza Parker MD Primary Care Provider +1- [phone] Encounter Details Date Type Department Care Team (Late st Contact Info) Description 10/20/2018 Orders Only [facility] [address] [facility] [address] [place] [id number] Kelli Cruz DNP [address] [facility] [address] [place] [address] Social History Tobacco Use Types Packs/Day Years Used Date Smoking Tobacco: Every Day Cigarettes Smokeless Tobacco: Never Alcohol Use Standard Drinks/Week Comments No 0 (1 standard drink = 0.6 oz pur e alcohol) Comments No Sex and Gender Information Value Date Recorded Sex Assigned at Not on file 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:46 AM MILLINERY SALESPERSON Gender Identity Not on file Sexual Orientation Not on file documented as of this encounter Plan of Treatment Not on file documented as of this encounter Visit Diagnoses Not on filedocumented in this encounter Care Teams Rougher Machine Operator Relationship Specialty Start Date End Date Mendoza Parker MD PCP - General 02/18/17 06/12/20 documented as of this encounter
--- OUTSIDE RECORDS SUMMARY | 2024-11-19 04:53 | XMS_ITS | Encounter Summary ---
Author Organization [facility] Address [address] [place] [address] Care Team Providers Care Keyboard Specialist Name Role Phone Mendoza Parker MD Primary Care Provider +1- [phone] Reason for Visit * Reason Comments Hypertension Encounter Details Date Type Department Care Team (Late st Contact Info) Description 09/26/2018 11:20 AM CONTRACT NEGOTIATOR Office Visit [facility] [address] [place] [address] Mendoza Parker MD [address] [address] Essential hypertension (Primary Dx) Social History Tobacco Use Types Packs/Day Years Used Date Smoking Tobacco: Every Day Cigarettes Smokeless Tobacco: Never Alcohol Use Standard Drinks/Week Comments No 0 (1 standard drink = 0.6 oz pur e alcohol) Comments No Sex and Gender Information Value Date Recorded Sex Assigned at Not on file 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:46 AM CONTRACT NEGOTIATOR Gender Identity Not on file Sexual Orientation Not on file documented as of this encounter Last Filed Vital Signs Vital Sign Reading Time Taken Comments Blood Pressure 120/84 09/26/2018 11:39 AM CONTRACT NEGOTIATOR Pulse 79 09/26/2018 11:39 AM CONTRACT NEGOTIATOR Temperature 36.6 ??C (97.8 ??F) 09/26/2018 11:[address] Respiratory Rate 18 09/26/2018 11:39 AM CONTRACT NEGOTIATOR Oxygen Saturation 98% 09/26/2018 11:39 AM CONTRACT NEGOTIATOR Inhaled Oxygen Concentration - - Weight 75.8 kg (167 lb) 09/26/2018 11:39 AM CONTRACT NEGOTIATOR Height - - Body Mass Index 32.61 09/19/2018 12:57 PM CDT documented in this encounter Progress Notes * Mendoza Parker MD - 09/26/2018 11:20 AM CST Subjective/Objective Patient ID: Shivani Betancur is a 53 y.o. female. Chief Complaint Hypertension HPI Patient is here because of elevated blood pressure last night please see assessment and plans. Patient is here for sick call visit regarding blood pressure.. Patient was reminded she is due for mammogram follow through with the recommendations given by her x ray electronics wireman provider on getting a mammogram in thenear future. Review of Systems Constitutional: Negative. HENT: Negative. Eyes: Negative. Gastrointestinal: Negative. Endocrine: Negative. Genitourinary: Negative. Musculoskeletal: Positive for arthralgias and myalgias. Skin: Negative. Neurological: Positive for headaches. Psychiatric/Behavioral: Negative. Physical Exam Constitutional: She appears well-developed and well-nourished. Neck: Normal range of motion. Neck supple. Cardiovascular: Normal rate, regular rhythm, normal heart sounds and intact distal pulses. Abdominal: Soft. Bowel sounds are normal. Skin: Skin is warm and dry. Psychiatric: She has a normal mood and affect. Her behavior is normal. Judgment and thought contentnormal. Nursing note and vitals reviewed. Assessment/Plan Diagnoses and all orders for this visit: Essential hypertension (I10) (Primary) Assessment & Plan: Patient's certain regarding elevated blood pressure which [...] later it does not help. Patient has Dennison available from her pain clinic dosage of 5/325. Patient's exam today blood pressures excellent lungs are clearno wheezing or rhonchi no murmur gallop no edema. No change in therapy RACT NEGOTIATOR documented in this encounter Miscellaneous Notes * Assessment & Plan Note - Mendoza Parker MD - 09/26/2018 12:44 PM CONTRACT NEGOTIATOR Associated Problem(s): Essential hypertension Patient's certain regarding elevated blood pressure which [...] later it does not help. Patient has Dennison available from her pain clinic dosage of 5/325. Patient's exam today blood pressures excellent lungs are clearno wheezing or rhonchi no murmur gallop no edema. No change in therapy RACT NEGOTIATOR documented in this encounter Plan of Treatment Not on file documented as of this encounter Visit Diagnoses Diagnosis Essential hypertension- Primary Unspecified essential hypertension documented in this encounter Care Teams Keyboard Specialist Relationship Specialty Start Date End Date Mendoza Parker MD PCP - General 02/18/17 06/12/20 documented as of this encounter
--- OUTSIDE RECORDS SUMMARY | 2024-11-19 04:53 | XMS_ITS | Encounter Summary ---
Author Organization [facility] Address [address] [place] [address] Care Team Providers Care Application Project Leader Name Role Phone Mendoza Parker MD Primary Care Provider +1- [phone] Reason for Visit * Reason Onset Date Comments Bystolic samples 10/11/2018 Encounter Details Date Type Department Care Team (Late st Contact Info) Description 10/11/2018 Telephone [facility] [address] [place] [id number] Mendoza Parker MD [address] [address] Bystolic samples Social History Tobacco Use Types Packs/Day Years Used Date Smoking Tobacco: Every Day Cigarettes Smokeless Tobacco: Never Alcohol Use Standard Drinks/Week Comments No 0 (1 standard drink = 0.6 oz pur e alcohol) Comments No Sex and Gender Information Value Date Recorded Sex Assigned at Not on file 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:46 AM GASOLINE SERVICE ATTENDANT Gender Identity Not on file Sexual Orientation Not on file documented as of this encounter Miscellaneous Notes * Telephone Encounter - Marguerite Scales LPN - 10/11/2018 2:[address] Parker for update Thank you-tyk LINE SERVICE ATTENDANT * Telephone Encounter - Adia Juan MA - 10/11/2018 2:02 PM GASOLINE SERVICE ATTENDANT Samples picked up LINE SERVICE ATTENDANT * Telephone Encounter - Marguerite Scales LPN - 10/11/2018 12:42 PM CST lmom for Shivani to [facility] to the office. We do have samples of Bystolic 5 mg ready for her along with asavings card. LINE SERVICE ATTENDANT * Telephone Encounter - Mary Carmen - 10/11/2018 12:09 PM CST Has been on samples of Bystolic 5 mg a few weeks: pt has #16 tablets left. -pt is taking 20 to 25 mg a day (self regulated) -the bottom number runs in the 80s Top number runs 135 Pt normally takes readings when not really feeling well, last readin/76 P 79 Random readings: 140/83 P 80 135/75 P 69 127/71 P 88 121/66 P 89 136/87 P 88 104/66 P 84 120/72 P 86 -pt is trying to stop smoking, so is going anywhere 0 cigarettes a day to 4-7 -asking for samples of Bystolic CBN: [phone], may leave message. LINE SERVICE ATTENDANT documented in this encounter Plan of Treatment Not on file documented as of this encounter Visit Diagnoses Not on filedocumented in this encounter Care Teams Application Project Leader Relationship Specialty Start Date End Date Mendoza Parker MD PCP - General 02/18/17 06/12/20 documented as of this encounter
--- OUTSIDE RECORDS SUMMARY | 2024-11-19 04:53 | XMS_ITS | Encounter Summary ---
Author Organization [facility] Address [address] [place] [address] Phone Care Team Providers Care Ammonia Refrigeration Worker Name Role Phone Mendoza Parker MD Primary Care Provider +1- [phone] Encounter Details Date Type Department Care Team (Late st Contact Info) Description 09/13/2018 Orders Only 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 (7-9 a.m.) Specimen: 4.0-22.0 09/13/2018 8:18 AM CDT 09/13/2018 8:19 AM CDT Narrative Resulting Agency Comment Performing Organization Information: ?Site ID: [place] ?Name: [facility] ?Address: [facility] [place] [address] ?Director: Mendoza Chand D.O., MPH us Urbano Delacruz MD LAB BLOOD ORDERABLES Final Resu lt [facility] [place] * (ABNORMAL) Basic metabolic panel (09/13/2018 8:18 AM CDT) Glucose 117(H) 65 - 99 mg/dL [facility] [place] Comment: ? Fasting reference interval For someone without known diabetes, a glucose value between 100 and 125 mg/dL is consistent with prediabetes and should be confirmed with a follow-up test. BUN 12 7 - 25 mg/dL [facility] Creatinine 0.56 0.50 - 1.05 mg/dL [facility] Comment: For patients >49 years of age, the reference limit for Creatinine is approximately 13% higher for people identified as -Indonesian. eGFR NON-AFR. [place] 106 > OR = 60 mL/min/1 .73m2 [facility] EGFR 123 > OR = 60 mL/min/1 .73m2 [facility] BUN/creat ratio NOT APPLICABLE 6 - 22 (calc) [facility] Sodium 140 135 - 146 mmol/L [facility] Potassium, pl 4.8 3.5 - 5.3 mmol/L [facility] Chloride 106 98 - 110 mmol/L [facility] CO2 29 20 - 32 mmol/L [facility] Calcium 9.5 8.6 - 10.4 mg/dL [facility] 09/13/2018 8:18 AM CDT 09/13/2018 8:19 AM CDT Narrative Resulting Agency Comment Performing Organization Information: ?Site ID: [id number] ?Name: [facility] ?Address: [address] [place] [address] ?Director: Mendoza Chand D.O., MPH us Urbano Delacruz MD LAB BLOOD ORDERABLES Final Resu lt [facility] [place] documented in this encounter Visit Diagnoses Not on filedocumented in this encounter Care Teams Ammonia Refrigeration Worker Relationship Specialty Start Date End Date Mendoza Parker MD PCP - General 02/18/17 06/12/20 documented as of this encounter
--- OUTSIDE RECORDS SUMMARY | 2024-11-19 04:53 | XMS_ITS | Encounter Summary ---
Author Organization [facility] Address [address] [place] [address] Phone Care Team Providers Care Weaving Teacher Name Role Phone Mendoza Parker MD Primary Care Provider +1- [phone] Encounter Details Date Type Department Care Team (Late st Contact Info) Description 05/19/2018 Orders Only [facility] [address] [facility] Medical Office Building [address] [place] [address] Urbano Delacruz MD [address] [id number] Steroid-induced osteoporosis (Primary Dx) Social History Tobacco Use Types Packs/Day Years Used Date Smoking Tobacco: Every Day Cigarettes Smokeless Tobacco: Never Alcohol Use Standard Drinks/Week Comments No 0 (1 standard drink = 0.6 oz pur e alcohol) Comments Unknown Sex and Gender Information Value Date Recorded Sex Assigned at Not on file 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
--- OUTSIDE RECORDS SUMMARY | 2024-11-19 04:53 | XMS_ITS | Encounter Summary ---
Author Organization [facility] Address [address] [place] [address] Phone Care Team Providers Care Intercell Connector Placer Name Role Phone Mendoza Parker MD Primary Care Provider +1- [phone] Encounter Details Date Type Department Care Team (Late st Contact Info) Description 08/17/[address] [place] [address] Urbano Delacruz MD [address] [id number] Social History Tobacco Use Types Packs/Day Years Used Date Smoking Tobacco: Every Day Cigarettes Smokeless Tobacco: Never Alcohol Use Standard Drinks/Week Comments No 0 (1 standard drink = 0.6 oz pur e alcohol) Comments No Sex and Gender Information Value Date Recorded Sex Assigned at Not on file 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 - 08/17/2018 2:05 PM CDT PLAN IS ACTIVE BCBS ID#[id number] PT HAS $1000 ($995) DED. ONCE MET, PLAN PAYS 90% TIL $3000 (MET) OOP IS MET. AUTH # [id number] IS VALID TIL 02/07/19 FOR PROLIA (MAY BUY N BILL) REF# [id number] 08/17/18 * Telephone Encounter - Phoebe Arroyo RN - 08/17/2018 1:39 PM CDT Please check Precert for Prolia . There is a precert in [employer] that Dr Delacruz obtained 02/23/18 on a PEER to PEER, phone # [phone]. Auth # [id number]. documented in this encounter Plan of Treatment Not on file documented as of this encounter Visit Diagnoses Not on filedocumented in this encounter Care Teams Intercell Connector Placer Relationship Specialty Start Date End Date Mendoza Parker MD PCP - General 02/18/17 06/12/20 documented as of this encounter
--- OUTSIDE RECORDS SUMMARY | 2024-11-19 04:53 | XMS_ITS | Encounter Summary ---
Author Organization [facility] Address [address] [place] [address] Care Team Providers Care Business Systems Analyst Name Role Phone Mendoza Parker MD Primary Care Provider +1- [phone] Encounter Details Date Type Department Care Team (Late st Contact Info) Description 10/23/2018 1:15 PM FORESTRY PILOT Office Visit [facility] [address] [facility] [facility] [address] [place] [address] Corina Zambrano, [facility] [address] [facility] [address] [place] [address] Obstructive sleep apnea syndrome (Primary Dx); Hypersomnia; Obesity (BMI 30-39.9) Social History Tobacco Use Types Packs/Day Years Used Date Smoking Tobacco: Every Day Cigarettes Smokeless Tobacco: Never Alcohol Use Standard Drinks/Week Comments No 0 (1 standard drink = 0.6 oz pur e alcohol) Comments No Sex and Gender Information Value Date Recorded Sex Assigned at Not on file Legal Sex Female 12:46 AM FORESTRY PILOT Gender Identity Not on file Sexual Orientation Not on file documented as of this encounter Last Filed Vital Signs Vital Sign Reading Time Taken Comments Blood Pressure 153/98 10/23/2018 1:09 PM FORESTRY PILOT Pulse 73 10/23/2018 1:09 PM FORESTRY PILOT Temperature - - Respiratory Rate - - Oxygen Saturation - - Inhaled Oxygen Concentration - - Weight 75.7 kg (166 lb 12.8 oz) 10/23/2018 1:09 PM FORESTRY PILOT Height 152.4 cm (5') 10/23/2018 1:09 PM FORESTRY PILOT Body Mass Index 32.58 10/23/2018 1:09 PM FORESTRY PILOT documented in this encounter Ordered Prescriptions Prescription Sig Dispense Quantity Refills Last Filled Start Date End Date zolpidem (AMBIEN) 10 mg tabletIndications: Sleep-Onset Insomnia Take 1 tablet (10 mg total) by mouth nightly as needed for sleep. 30 tablet 5 10/23/2018 9 documented in this encounter Progress Notes * Corina Zambrano NP - 10/23/2018 1:15 PM CST Chief complaints: Snoring, difficulty falling asleep, unrefereshing sleep and hypersomnia HPI Ms Betancur presents for consultation. She has been referred by her co founder and chairman KIM Curry for opinion regarding her above [...] Feels tired and fatigued in the daytime. [place] Sleepiness Scale score is 0. Does not [...] control of her daytime sleepiness. The pt's [place] Sleepiness Scale(ESS) is: 0 (was 0 during the last visit) 3. Obesity. No acute changes since her last visit 4. 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 Pt still has difficulty falling asleep and has been taking 2 tabs of Ambien that has helped very well. Past Medical History: Diagnosis Date ??? Disorder [...] dysphoric mood. The patient is nervous/anxious. BP 153/98 Pulse 73 Ht 152.4 cm (5') Wt 75.7 kg (166 lb 12.8 oz) BMI 32.58 kg/m?? Physical Exam Constitutional: She appears well-developed [...] pressure therapy. The physiology of sleep disordered breathing and its increased association with hypertension, diabetes, heart arrhythmia, strokes, heart attacks, heart failure, hypersomnia, obesity and mood disorders was discussed. Pt did not bring the chip and cannot assess the compliance today. Advised to bring the chip sometime. Pt to continue pressure th erapy. 2. Delayed sleep phase cycle disorder: Patient's sleep scheduled is suggestive of circadian rhythm sleep disorder. Patient was discussed the above. Recommend chronotherapy, melatonin 1 mg 5 hr beforedesired bedtime. Consider bright light therapy as well. She still has difficulty falling asleep andwill prescribe Ambien 10 mg at bedtime p.r.n. 3. Obesity: The effects of obesity obstructive sleep apnea syndrome and other morbidities was discussed. Recommended diet and exercise in losing weight. Patient verbalizes an understanding. Will follow up in 6 months STRY PILOT documented in this encounter Plan of Treatment Not on file documented as of this encounter Visit Diagnoses Diagnosis Obstructive sleep apnea syndrome- Primary Obstructive sleep apnea (adult) (pediatric) Hypersomnia Hypersomnia, unspecified Obesity (BMI 30-39.9) documented in this encounter Discontinued Medications Medication Sig Discontinue Reason Start Date End Da te zolpidem (AMBIEN) 5 mg tabletIndications:Sleep- Onset Insomnia Take 1 tablet (5 mg total) by mouth nightly as needed for sleep. Reorder 09/04/2018 10/23/2018 documented as of this encounter Care Teams Business Systems Analyst Relationship Specialty Start Date End Date Mendoza Parker MD PCP - General 02/18/17 06/12/20 documented as of this encounter
--- OUTSIDE RECORDS SUMMARY | 2024-11-19 04:53 | XMS_ITS | Encounter Summary ---
Author Organization [facility] Healthcare Address [address] [place] [address] Care Team Providers Care Aircraft Power Plant Assembler Name Role Phone Mendoza Parker MD Primary Care Provider +1- [phone] Encounter Details Date Type Department Care Team (Late st Contact Info) Description 11/02/2018 Orders Only [facility] [address] [facility] [address] [place] [id number] Analia Jacobson RN Social History Tobacco Use Types Packs/Day Years Used Date Smoking Tobacco: Every Day Cigarettes Smokeless Tobacco: Never Alcohol Use Standard Drinks/Week Comments No 0 (1 standard drink = 0.6 oz pur e alcohol) Comments No Sex and Gender Information Value Date Recorded Sex Assigned at Not on file 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
--- OUTSIDE RECORDS SUMMARY | 2024-11-19 04:53 | XMS_ITS | Encounter Summary ---
Author Organization [facility] Healthcare Address [address] [place] [address] Care Team Providers Care Cork Slabs Sawyer Name Role Phone Mendoza Parker MD Primary Care Provider +1- [phone] Encounter Details Date Type Department Care Team (Late st Contact Info) Description 10/31/2018 Orders Only [facility] [address] [facility] [address] [place] [id number] Alyssa Macias, JUANY Social History Tobacco Use Types Packs/Day Years Used Date Smoking Tobacco: Every Day Cigarettes Smokeless Tobacco: Never Alcohol Use Standard Drinks/Week Comments No 0 (1 standard drink = 0.6 oz pur e alcohol) Comments No Sex and Gender Information Value Date Recorded Sex Assigned at Not on file 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
--- OUTSIDE RECORDS SUMMARY | 2024-11-19 04:53 | XMS_ITS | Encounter Summary ---
Author Organization [facility] Healthcare Address [address] [place] [address] Care Team Providers Care Station Mechanic Apprentice Name Role Phone Mendoza Parker MD Primary Care Provider +1- [phone] Reason for Referral * Diagnostic Imaging (Routine) - Closed Specialty Diagnoses / Procedures Referred By Contac t Referred To Contact Radiology Diagnoses Seizure-like activity (HCC) Brain mass Procedures MRI Brain W WO Contrast Jones Younger MD Phone: tel: fax: [address] [address] Referral ID Status Reason Start Date Expiration Date Visits Re quested Visits Authorized [id number] Closed 09/19/2018 03/30/2020 1 1 TURE INSPECTOR Reason for Visit * Diagnostic Imaging (Routine) - Closed Specialty Diagnoses / Procedures Referred By Contac t Referred To Contact Radiology Diagnoses Seizure-like activity (HCC) Brain mass Procedures MRI Brain W WO Contrast Jones Younger MD Phone: tel: fax: [address] [phone] Referral ID Status Reason Start Date Expiration Date Visits Re quested Visits Authorized [id number] Closed 09/19/2018 03/30/2020 1 1 Encounter Details Date Type Department Care Team (Latest Contact Info) Description 09/28/2018 12:39 PM ARMATURE INSPECTOR - 09/28/2018 11:59 PM ARMATURE INSPECTOR Hospital Encounter [facility] [address] [place] [address] Jones Younger MD [address] [place] [address] [address] [place] [address] Seizure-like activity (CMS/HCC); Brain mass Discharge Disposition: Discharge to home or self care Social History Tobacco Use Types Packs/Day Years Used Date Smoking Tobacco: Every Day Cigarettes Smokeless Tobacco: Never Alcohol Use Standard Drinks/Week Comments No 0 (1 standard drink = 0.6 oz pur e alcohol) Comments No Sex and Gender Information Value Date Recorded Sex Assigned at Not on file Legal Sex Female 12:46 AM ARMATURE INSPECTOR Gender Identity Not on file Sexual Orientation Not on file documented as of this encounter Medications at Time of Discharge cyclobenzaprine (FLEXERIL) 10 mg tablet Take 1 tablet (10 mg total) by mouth 3 (three) times a day as needed 10/28/2017 acetaminophen-asp irin-caffeine (EXCEDRIN MIGRAINE) 250-250-65 mg per tablet 1-2 per week 0 AFLURIA QUAD [id number] 60 mcg/0.5 mL suspension 09/14/2018 8 alendronate [...] CONTRAST Schedule Routine, Read Routine (OP Routine) 09/28/2018 1:25 PM ARMATURE INSPECTOR Seizure-like activity (CMS/HCC) Brain mass documented in this encounter Results * MRI Brain W WO Contrast (09/28/2018 1:25 PM ARMATURE INSPECTOR) Anatomical Region Laterality Modality Head and Neck N/A Magnetic Resonan ce 09/28/2018 1:49 PM ARMATURE INSPECTOR Impressions 09/28/2018 1:53 PM ARMATURE INSPECTOR 1. ??No acute intracranial process or abnormal enhancement. 2. ??Evidence of mild small vessel disease. Electronically signed by: Servando Wills M.D. Narrative 09/28/2018 1:53 PM ARMATURE INSPECTOR EXAM: MRI BRAIN W WO CONTRAST HISTORY: [...] MD IMG MRI PROCEDURES Celia l Result documented in this encounter Visit Diagnoses Diagnosis Seizure-like activity (HCC) Brain mass Unspecified condition of brain documented in this encounter Administered Medications Inactive Administered Medications - up to 3 most recent administrations Medication Order MAR Action Action Date Dose Rate Site gadoterate meglumine (DOTAREM) 0.5 mmol/mL injection 15 mL 15 mL, intravenous, Once in imaging, contrast, Starting on Amaris 09/28/18 at 1326, For 1 dose Given 09/28/2018 1:27 PM ARMATURE INSPECTOR 15 mL documented in this encounter Care Teams Station Mechanic Apprentice Relationship Specialty Start Date End Date Mendoza Parker MD PCP - General 02/18/17 06/12/20 documented as of this encounter
--- OUTSIDE RECORDS SUMMARY | 2024-11-19 04:53 | XMS_ITS | Encounter Summary ---
Author Organization [facility] Address [address] [place] [address] Phone Care Team Providers Care Director Equipment Name Role Phone Mendoza Parker MD Primary Care Provider +1- [phone] Encounter Details Date Type Department Care Team (Late st Contact Info) Description 10/16/2018 1:30 PM ASSET PROTECTION LEAD Office Visit [facility] [address] [facility] 5th [place] [address] [place] [phone] Urbano Delacruz MD [address] [facility] [address] [place] [address] Age-related osteoporosis without current pathological fracture (Primary Dx) Social History Tobacco Use Types Packs/Day Years Used Date Smoking Tobacco: Every Day Cigarettes Smokeless Tobacco: Never Alcohol Use Standard Drinks/Week Comments No 0 (1 standard drink = 0.6 oz pur e alcohol) Comments No Sex and Gender Information Value Date Recorded Sex Assigned at Not on file Legal Sex Female 12:46 AM ASSET PROTECTION LEAD Gender Identity Not on file Sexual Orientation Not on file documented as of this encounter Last Filed Vital Signs Vital Sign Reading Time Taken Comments Blood Pressure 141/91 10/16/2018 12:41 PM ASSET PROTECTION LEAD Pulse 74 10/16/2018 12:41 PM ASSET PROTECTION LEAD Temperature 36.7 ??C (98 ??F) 10/16/2018 12:41 PM ASSET PROTECTION LEAD Respiratory Rate - - Oxygen Saturation - - Inhaled Oxygen Concentration - - Weight 75.8 kg (167 lb 3.2 oz) 10/16/2018 12:41 PM ASSET PROTECTION LEAD Height 151.1 cm (4' 11.5 ) 10/16/2018 12:[address] Body Mass Index 33.21 10/16/2018 12:41 PM ASSET PROTECTION LEAD documented in this encounter Progress Notes * Urbano Delacruz MD - 10/16/2018 1:30 PM CST NAME: Shivani Betancur : 1965 DOS: [...] HISTORY: The patient is a very pleasant 53 year-old, postmenopausal, female. She reports no interval falls or fractures, concern for fractures. She is currently on 2000 international units of vitaminD. no calcium supplementation. She was diagnosed with obstructive sleep apnea and has been compliant with her CPAP device. There were plans for the patient to have removal of her surgical hardware from her ORIF performed in 2017. She notes improved mobility and substantial weight loss. Recently resumed smoking a few cigarettes per day this past year. Reports a recent fall due to being hypotensive 6 week ago fortunately no interval fractures. Notes she is depressed, due to her son moving out of the phone. Poor Sleep. Reports trip to [place]- in the April 2018. Currently on 3000IUs of vitamin D daily. No structured weight bearing activity. PAST MEDICAL HISTORY: 1. Severe osteoporosis based [...] or abscess without bleeding ??? Need for ecflmxycux-stfqywa-btlhigthx (Tdap) vaccine ??? Breast cancer screening ??? Shaking ??? Poison shala dermatitis ??? Seizure-like activity (CMS/HCC) ??? Brain mass CURRENT MEDICATIONS: Current Outpatient Prescriptions: ??? AFLURIA QUAD [id number] 60 mcg/0.5 mL suspension, , Disp: , [...] daily., Disp: 30 tablet, Rfl: 0 ??? vagnbahq-asvwyxgit-tpkyjdwinchge (MAXITROL) 3.5mg/mL-10,000 unit/mL-0.1 % ophthalmic suspension, , [...] sleep., Disp: 30 tablet, Rfl: 1 ??? oqvesvzyxvnec-rqqzjah-nfzjaqfv (EXCEDRIN MIGRAINE) 250-250-65 mg per tablet, 1-2 per week, Disp: , Rfl: ??? alendronate (FOSAMAX) 70 mg tablet, , Disp: , Rfl: ??? DULoxetine DR (CYMBALTA) 60 mg capsule, take 1 capsule by oral route maxi (Patient not taking: Reported on 10/16/2018 ), [...] Itching and Nausea only Reaction: Itching, Nausea, FAMILY HISTORY: Family History Problem Relation Age [...] Stroke Other Stroke; VITAL SIGNS: Vitals BP 141/91 Pulse 74 Temp 36.7 ??C (98 ??F) Ht 151.1 cm (4' 11.5 ) Wt 75.8 kg (167 lb 3.2 oz) BMI 33.21 kg/m?? PHYSICAL EXAM: Physical Exam Constitutional: She [...] there has been no significant change noted. ?? BONE MINERAL DENSITY OF THE PROXIMAL FEMUR ?? Bone Mineral Density (BMD) of the left hip total was found to be 1.016 gm/cm2. This corresponds to a T-score standard deviations from the mean of young adults of 0.6. Femoral neck is 0.781 gm/cm2 with a T-score of -0.6. When compared to the previous study of 10/10/2017 there has been a measured 0.026 gm/cm 2.6 % increase which is considered significant. ? SUMMARY: Bone mineral density shows evidence of low bone mass in the spine and moderately increased fracturerisk. There has been significant increase in bone mineral density since previous measurement. ?? LABS: Recent Results (from the past 1008 hour(s)) Basic metabolic panel Collection Time: 09/13/18 8:18 AM Result Value Ref Range Glucose 117 (H) 65 - 99 mg/dL BUN 12 7 - 25 mg/dL Creatinine 0.56 0.50 - 1.05 mg/dL eGFR NON-AFR. DOMINICAN 106 > OR = 60 mL/min/1.73m2 EGFR [...] (calc) ASSESSMENT AND PLAN: This is a 53-year-old, postmenopausal, female with bone mineral densities that [...] age and the severity of her osteoporosis we planned to switch her to Prolia. Multiple delays due to insurance, approved after peer to peer inApril 2017, in the interval patient was briefly on fosamax 4 -5 months. Plan for 1-2 years of prolia followed by Reclast. Improvements in BMD despite being off of anti-resorptive therapy likely due to Forteo effect and her Fosamax. Counseled smoking cessation Reviewed the goal is 1200mg of calcium per day preferably through dietary sources 3000 IUs daily of vitamin D for maintenance. Engage in weight bearing activity as tolerate. Will f/u in 1yr with Rpt BMD. Check vitamin D and CMP today, Addendum; reviewed within normal limits. Schedule prolia [facility]. (2) Screen for [place]'s given her young age, bone densities, and [...] patient to the [facility] at [facility]. Please let me know if I can be of any more assistance. If you have any questions or concerns please do not hesitate to give me a call. T PROTECTION LEAD T PROTECTION LEAD T PROTECTION LEAD documented in this encounter Miscellaneous Notes * Addendum Note - Kath Case MA - 10/16/2018 1:30 PM CSTAddended by: KATH CASE on: 10/16/2018 02:33 PM Modules accepted: Orders T PROTECTION LEAD * Addendum Note - Kath Case MA - 10/16/2018 1:30 PM CSTAddended by: KATH CASE on: 10/16/2018 02:33 PM Modules accepted: Orders T PROTECTION LEAD documented in this encounter Plan of Treatment Not on file documented as of this encounter Results * Vitamin D 25 hydroxy (10/16/2018 2:33 PM ASSET PROTECTION LEAD) [facility] Vitamin D 36.9 30.0 - 100.0 ng/mL [facility] Comment: VITAMIN D DEFICIENCY = LESS THAN 20 ng/mL) ? VITAMIN D INSUFFICIENCY = LESS THAN 30 ng/mL ? RECOMMENDED NORMAL RANGE = 30-100 ng/mL Blood specimen (specimen) 10/16/2018 2:33 PM ASSET PROTECTION LEAD 10/16/2018 3:48 PM ASSET PROTECTION LEAD Urbano Delacruz MD LAB BLOOD ORDERABLES Final Resu lt Performing Organization Address City/[facility]/ZIP Co de Phone Number [facility] * (ABNORMAL) Basic metabolic panel (10/16/2018 2:33 PM ASSET PROTECTION LEAD) Glucose 100(H) 64 - 99 mg/dL [facility] Comment: NONFASTING GLUCOSE RANGE = 64-199 mg/dL [...] 10.3 mg/dL [facility] eGFR NON-AFR. DOMINICAN >90.0 >60.0 mL/min/1.7 3 m2 [facility] eGFR >90.0 >60.0 mL/min/1.7 3 m2 [facility] Blood specimen (specimen) 10/16/2018 2:33 PM ASSET PROTECTION LEAD 10/16/2018 3:48 PM ASSET PROTECTION LEAD us Urbano Delacruz MD LAB BLOOD ORDERABLES Final Resu lt [facility] documented in this encounter Visit Diagnoses Diagnosis Age-related osteoporosis without current pathological fracture- Primary documented in this encounter Care Teams Director Equipment Relationship Specialty Start Date End Date Mendoza Parker MD PCP - General 02/18/17 06/12/20 documented as of this encounter
--- OUTSIDE RECORDS SUMMARY | 2024-11-19 04:53 | XMS_ITS | Encounter Summary ---
Author Organization [facility] Healthcare Address [address] [place] [address] Care Team Providers Care Community Arts Officer Name Role Phone Mendoza Parker MD Primary Care Provider +1- [phone] Reason for Visit * Reason Comments OP Infusion Prolia * Episode Based Medications (Routine) - Closed Specialty Diagnoses / Procedures Referred By Contac t Referred To Contact Diagnoses Age-related osteoporosis without current pathological fracture Procedures AL DENOSUMAB INJECTION Ubrano Delacruz MD [address] [address] Phone: tel: fax: [facility] [address] [facility] [address] [place] [address] Phone: tel: Referral ID Status Reason Start Date Expiration Date Visits Re quested Visits Authorized [id number] Closed 12/07/2019 12/07/2020 4 4 Encounter Details Date Type Department Care Team (Latest Contact Info) Description 11/03/2018 2:00 PM EXTERMINATION SUPERVISOR - 11/03/2018 11:59 PM EXTERMINATION SUPERVISOR Hospital Encounter [facility] Out[facility]fusion Center [address] [facility] [address] [place] [address] Urbano Delacruz MD [address] [address] Osteoporosis, unspecified osteoporosis type, unspecified pathological fracture presence; Age-related osteoporosis without current pathological fracture Discharge [...] on file Legal Sex Female 12:46 AM EXTERMINATION SUPERVISOR Gender Identity Not on file Sexual Orientation Not on file documented as of this encounter Last Filed Vital Signs Vital Sign Reading Time Taken Comments Blood Pressure 162/97 11/03/2018 2:31 PM EXTERMINATION SUPERVISOR Pulse 79 11/03/2018 2:31 PM EXTERMINATION SUPERVISOR Temperature 37.2 ??C (98.9 ??F) 11/03/2018 2:31 PM CS T Respiratory Rate 16 11/03/2018 2:31 PM EXTERMINATION SUPERVISOR Oxygen Saturation 97% 11/03/2018 2:31 PM EXTERMINATION SUPERVISOR Inhaled Oxygen Concentration - - Weight 78.2 kg (172 lb 8 oz) 11/03/2018 2:31 PM EXTERMINATION SUPERVISOR Height 149.9 cm (4' 11 ) 11/03/2018 2:31 PM EXTERMINATION SUPERVISOR Body Mass Index 34.84 11/03/2018 2:31 PM EXTERMINATION SUPERVISOR documented in this encounter Medications at Time of Discharge cyclobenzaprine (FLEXERIL) 10 mg tablet Take 1 tablet (10 mg total) by mouth 3 (three) times a day as needed 10/28/2017 acetaminophen-asp irin-caffeine (EXCEDRIN MIGRAINE) 250-250-65 mg per tablet 1-2 per week 0 AFLURIA QUAD [id number] 60 mcg/0.5 mL suspension 09/14/2018 8 atorvastatin (LIPITOR) 20 mg tablet TAKE [...] 1 capsule by oral route maxi day 0 03/14/2014 8 ECOTRIN LOW STRENGTH 81 [...] times every day 0 0 03/07/2015 0 zolpidem (AMBIEN) 10 mg tabletIndications :Sleep-Onset Insomnia [...] unspecified osteoporosis type, unspecified pathological fracture presence Age-related osteoporosis without current pathological fracture documented in this encounter Administered Medications Inactive Administered Medications - up to 3 most recent administrations Medication Order MAR Action Action Date Dose Rate Site denosumab (PROLIA) subcutaneous syringe 60 mg 60 mg, subcutaneous, Once, On Tue11/03/18 at 1437, For 1 dose, Calcium level should be greater than 8 mg/dl. Injection to be given in the upper arm, thigh or abdomen. Refrigerate. Allow to stand 15 to 30 mins prior to useIndications:Age-related osteoporosis without current pathological fracture Given 11/03/2018 2:50 PM EXTERMINATION SUPERVISOR 60 mg Other (Comment) documented in this encounter Discontinued Medications Medication Sig Discontinue Reason Start Date End Da te alendronate (FOSAMAX) 70 mg tablet 07/19/2018 11/03/2018 predniSONE (DELTASONE) 10 mg tablet 07/18/2018 11/03/2018 triamcinolone (KENALOG) 0.1 % cream 07/18/2018 11/03/2018 documented as of this encounter Orders Appointment Requests Count Last Ordered Date Fi rst Ordered Date INFUSION APPT REQUEST 30 MIN 1 11/03/2018 documented in this encounter Care Teams Community Arts Officer Relationship Specialty Start Date End Date Mendoza Parker MD PCP - General 02/18/17 06/12/20 documented as of this encounter
--- OUTSIDE RECORDS SUMMARY | 2024-11-19 04:53 | XMS_ITS | Encounter Summary ---
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 [facility] (CONNIE) Alk phos 120 40 - 130 Units/L [facility] (CONNIE) ALT 16 7 - 45 Units/L [facility] (CONNIE) AST 14 10 - 45 Units/L [facility] (CONNIE) Blood specimen (specimen) 08/15/2018 10:57 AM CDT 08/15/2018 11:07 AM CDT Narrative [facility] (CONNIE) - 08/15/2018 11:34 AM CDT us Javed Damian DO LAB BLOOD ORDERABLES Final Result [facility] ([facility] [place] [address] * (ABNORMAL) CBC with auto differential (08/15/2018 10:57 AM CDT) WBC 10.5(H) 3.8 - 9.9 K/cumm [facility] (CONNIE) Hgb 13.6 11.9 - 15.5 g/dL [facility] (CONNIE) Hct 41.3 35.6 - 45.5 % [facility] (CONNIE) Plt 307 150 - 400 K/cumm [facility] (CONNIE) MPV 9.6 9.1 - 12.3 fL [facility] (CONNIE) RBC 4.38 3.90 - 5.20 M/cumm [facility] (CONNIE) MCV 94.3 81.3 - 96.4 fL [facility] (CONNIE) MCH 31.1 27.1 - 33.3 pg [facility] (CONNIE) MCHC 32.9 32.3 - 35.7 g/dL [facility] (CONNIE) RDW CV 14.1 11.1 - 14.9 % [facility] (CONNIE) RDW SD 48.7(H) 35.7 - 48.1 fL [facility] (CONNIE) NRBC abs 0.00 0.00 - 0.01 K/cumm [facility] (CONNIE) Blood specimen (specimen) 08/15/2018 10:57 AM CDT 08/15/2018 11:07 AM CDT Narrative [facility] (CONNIE) - 08/15/2018 11:09 AM CDT us Javed Damian DO LAB BLOOD ORDERABLES Final Result [facility] (CONNIE) 1 [facility] [place] [address] * Pro B-type natriuretic peptide (08/15/2018 10:57 AM CDT) NT-proBNP 13 <=300 pg/mL [facility] (CONNIE) Comment: Interpretive Comments: A. Dyspnea in [...] Last Revised Date: 2018. Blood specimen (specimen) 08/15/2018 10:57 AM CDT 08/15/2018 11:36 AM CDT Narrative SELVIN CARLOS EDUARDO (CONNIE) - 08/15/2018 12:00 PM CDT us Javed Damian DO LAB BLOOD ORDERABLES Final Result SELVIN CARLOS EDUARDO (OLDSMAR) 1 [facility] [place] [address] * XR Chest 1 Vw Portable (08/15/2018 10:56 AM CDT) Anatomical Region Laterality Modality Body, Chest N/A Computed Radiogr aphy 08/15/2018 11:1 6 AM CDT Impressions 08/15/2018 11:19 AM CDT 1. ??NO ACUTE PULMONARY DISEASE. 2. FOLLOW-UP STANDARD EXAMINATION RECOMMENDED. 3. ??OLD PULMONARY GRANULOMATOUS DISEASE. Electronically signed by: Christian Paz M.D [facility] 08/15/2018 11:19 AM CDT XR CHEST 1 VIEW HISTORY: weakness. ??Shortness of breath. ??Tobacco use. TECHNIQUE: Portable AP view. COMPARISON: 08/01/2017. FINDINGS: Heart size is normal. ??No infiltrate or effusion identified. ??Elevation right hemidiaphragm, as previously. ??Patient somewhat rotated on the current study. ??Also noted are findings of old granulomatous disease. ??Small right basilar opacity appears be due to superimposition of shadows. ??Follow-up standard examination recommended. Procedure Note Christian Paz MD - 08/15/2018 XR CHEST 1 VIEW HISTORY: weakness. Shortness of breath. Tobacco use. TECHNIQUE: Portable AP view. COMPARISON: 08/01/2017. FINDINGS: Heart size is normal. No infiltrate or effusion identified. Elevation right hemidiaphragm, as previously. Patient somewhat rotated on the current study. Also noted are findings of old granulomatous disease. Small right basilar opacity appears be due to superimposition of shadows. Follow-up standard examination recommended. IMPRESSION: 1. NO ACUTE PULMONARY DISEASE. 2. FOLLOW-UP STANDARD EXAMINATION RECOMMENDED. 3. OLD PULMONARY GRANULOMATOUS DISEASE. Electronically signed by: Christian Paz M.D Javed Damian DO IMG XR PROCEDURES Final Res ult * ECG 12 lead (08/15/2018 10:44 AM CDT) Patient age 52 years [facility] Interpretation Text SINUS RHYTHMMINIMAL VOLTAGE CRITERIA FOR LVH, CONSIDER NORMAL VARIANTBORDERLINE ECGPREVIOUS TRACIN08/01/[address] [facility] Comment:Physician Interprete r Dr. Boni Mandujano M.D. Ventricular Rate EKG/Min 77 /min [facility] P Wave Duration [address] [facility] QRS-Interval (MSEC) [address] [facility] MT-Interval (MSEC) [address] [facility] QT Interval [address] [facility] QTc [address] [facility] QTC Interval ms [facility] P Crandall [address] [facility] QRS Crandall -[address] [facility] T Crandall -[address] [facility] 08/15/2018 10:4 4 AM CDT us Javed Damian DO ECG ORDERABLES Final Resul t [facility] documented in this encounter Visit Diagnoses Diagnosis Hypotension due to drugs- Primary Other iatrogenic hypotension documented in this encounter Administered Medications Inactive Administered Medications - up to 3 most recent administrations Medication Order MAR Action Action Date Dose Rate Site acetaminophen (TYLENOL) tablet 1,000 mg 1,000 mg, oral, Once, On Tue08/15/18 at 1214, For 1 dose Given 08/15/2018 12:15 PM CDT 1,000 mg ketorolac (TORADOL) injection 30 mg 30 mg, intravenous, Once, On Tue08/15/18 at 1413, For 1 dose Given 08/15/2018 2:17 PM CDT 30 mg prochlorperazine (COMPAZINE) injection 10 mg 10 mg, intravenous, Once, On Tue08/15/18 at 1413, For 1 dose Given 08/15/2018 2:16 PM CDT 10 mg documented in this encounter Discontinued Medications Medication Sig Discontinue Reason Start Date End Da te BYSTOLIC 20 mg tablet Dose adjustment 01/11/2018 08/15/2018 documented as of this encounter Active and Recently Administered Medications Times are shown in CDT. Scheduled Medication Order 08/13/2018 08/14/2018 08/15/2018 acetaminophen (TYLENOL) tablet 1,000 mg (COMPLETED) 1,000 mg, oral, Once, On e 08/15/18 at 1214, For 1 dose 1215 (Given - Provid er: Nickolas Pedraza RN) ketorolac (TORADOL) injection 30 mg (COMPLETED) 30 mg, intravenous, Once, On e 08/15/18 at 1413, For 1 dose 1417 (Given - Provid er: Nickolas Pedraza RN) prochlorperazine (COMPAZINE) injection 10 mg (COMPLETED) 10 mg, intravenous, Once, On 08/15/18 at 1413, For 1 dose 1416 (Given - Provid er: Nickolas Pedraza RN) documented in this encounter Orders Lab Orders Without Results Count Last Ordered D ate First Ordered Date POCT GLUCOSE DEVICE 1 08/15/2018 Nursing Count Last Ordered Date First Orde red Date CARDIO RESPIRATORY MONITORING 1 08/15/2018 CONTINUOUS PULSE OXIMETRY 1 08/15/2018 VITAL SIGNS 1 08/15/2018 IV Count Last Ordered Date First Orde red Date SALINE LOCK IV 1 08/15/2018 documented in this encounter Care Teams Saw Maker Relationship Specialty Start Date End Date Mendoza Parker MD PCP - General 02/18/17 06/12/20 documented as of this encounter
--- OUTSIDE RECORDS SUMMARY | 2024-11-19 04:54 | XMS_ITS | Encounter Summary ---
Author Organization [facility] Address [address] [place] [address] Phone Care Team Providers Care High Speed Printer Operator Name Role Phone Mendoza Parker MD Primary Care Provider [phone]- [phone] Reason for Referral * Diagnostic Imaging (Routine) - Closed Specialty Diagnoses / Procedures Referred By Contac t Referred To Contact Diagnoses Osteoporosis, unspecified osteoporosis type, unspecified pathological fracture presence Procedures Dexa Axial Skeleton Bone Density 1 or 2 Site Urbano Delacruz MD Phone: tel: fax: [facility] (All Locations) Referral ID Status Reason Start Date Expiration Date Visits Re quested Visits Authorized [id number] Closed 04/05/2018 04/05/2019 99 99 Encounter Details Date Type Department Care Team (Late st Contact Info) Description 04/05/2018 Orders Only [facility] [address] [facility] [address] [facility] [address] [place] [address] [place] [address] Urbano Delacruz MD [address] [address] Osteoporosis, unspecified osteoporosis type, unspecified [...] on file Legal Sex Female 12:46 AM IMPLANT COORDINATOR Gender Identity Not on file Sexual Orientation Not on file documented as of this encounter Plan of Treatment Not on file documented as of this encounter Results * Dexa Axial Skeleton Bone Density 1 or 2 Site (10/16/2018 1:28 PM IMPLANT COORDINATOR) Anatomical Region Laterality Modality Body N/A Radiographic Krupa ging Narrative 10/18/2018 10:55 AM IMPLANT COORDINATOR Patient Name: Shivani Betancur Date of : 1965 Date of scan: 10/16/2018 Bone mineral density was performed on a [employer] Discovery Densitometer. ?? Machine Cross-calibration and Precision [...] mineral density scan were prepared by Jael Hoerner R.T(R) who is accredited by the International Society of Clinical Densitometry. The overall patient assessment and scan interpretation were performed by Urbano Delacruz M.D. who is certified by the International Society of Clinical Densitometry. [id number] Urbano Delacruz MD IMG DXA PROCEDURES Edited Resul t - Final documented in this encounter Visit Diagnoses Diagnosis Osteoporosis, unspecified osteoporosis type, unspecified pathological fracture presence- Primary Osteoporosis, unspecified osteoporosis type, unspecified pathological fracture presence documented in this encounter Care Teams High Speed Printer Operator Relationship Specialty Start Date End Date Mendoza Parker MD PCP - General 02/18/17 06/12/20 documented as of this encounter
--- OUTSIDE RECORDS SUMMARY | 2024-11-19 04:54 | XMS_ITS | Encounter Summary ---
Author Organization [facility] Address [address] [facility] [address] [place] [address] Care Team Providers Care Sorter Upholstery Parts Name Role Phone Mendoza Parker MD Primary Care Provider [phone]- [phone] Reason for Visit * Reason Comments Pain Encounter Details Date Type Department Care Team (Late st Contact Info) Description 01/18/2018 2:00 PM DRESSAGE JUDGE Office Visit [facility] Medical [facility] and [facility] Medicine [address] [place] [phone] Arnol Moreau MD [address] [place] [address] [address] [address] Right ankle pain, unspecified chronicity (Primary Dx); Painful orthopaedic hardware (CMS/HCC) Social History Tobacco Use Types Packs/Day Years Used Date Smoking Tobacco: Former Smokeless Tobacco: Former Alcohol Use Standard Drinks/Week Comments No 0 (1 standard drink = 0.6 oz pur e alcohol) Comments Unknown Sex and Gender Information Value Date Recorded Sex Assigned at Not on file Legal Sex Female 12:46 AM DRESSAGE JUDGE Gender Identity Not on file Sexual Orientation Not on file documented as of this encounter Last Filed Vital Signs Vital Sign Reading Time Taken Comments Blood Pressure 121/82 01/18/2018 2:37 PM DRESSAGE JUDGE Pulse 82 01/18/2018 2:37 PM DRESSAGE JUDGE Temperature - - Respiratory Rate - - Oxygen Saturation - - Inhaled Oxygen Concentration - - Weight 78 kg (172 lb) 01/18/2018 2:37 PM DRESSAGE JUDGE Height 152.4 cm (5') 01/18/2018 2:37 PM DRESSAGE JUDGE Body Mass Index 33.59 01/18/2018 2:37 PM DRESSAGE JUDGE documented in this encounter Progress Notes * Arnol Moreau MD - 01/18/2018 2:00 PM CST Images from the original note were not included. NEW PATIENT VISIT Subjective CHIEF COMPLAINT She had concerns including Pain of the Right Ankle. HISTORY OF PRESENT ILLNESS Right ankle pain for the last 4 years had open reduction internal fixation 2014 has syndesmotic screws removed 2015 continue to have therapy and continued to have pain. Recently the pain is increasedwith walking and trying to exercise and a fall down the steps reports her pain is sharp and burningin the pain is severe in her foot up ice her foot makes it better exercise and walking makes it worse is activity related and this is not work comp her intake she has some of patient's on a myself. PAST MEDCIAL HISTORY She has a past medical history of Disorder of thyroid; Fibrositis; Gastroesophageal reflux disease;OTHER MEDICAL (1988); OTHER MEDICAL (1991); OTHER MEDICAL (1982); OTHER MEDICAL; OTHER MEDICAL; OTHER MEDICAL; OTHER MEDICAL; OTHER MEDICAL; OTHER MEDICAL; OTHER MEDICAL; OTHER MEDICAL; OTHER MEDICAL; Hypertension; and Hypertension. PAST SURGICAL HISTORY She has a past surgical history that includes Appendectomy (2006); Other surgical history (1988); Other surgical history (1991); Other surgical history (2003); Other surgical history (1982); Total abdominal hysterectomy w/ bilateral salpingoophorectomy (2008); Other surgical history (2006); section (1982); Vaginal Hysterectomy (2008); Appendectomy (2005); Laparoscopic Cholecystectomy (2013); Other surgical history; Appendectomy; section; Other surgical history; Other surgical history; and Other surgical history. MEDICATIONS She has a current medication list which includes the following prescription(s): aspirin, atorvastatin, azelastine, bystolic, vitamin d3, cyclobenzaprine, dexamethasone, colace, cymbalta, estrace, gabapentin, hydrocodone-acetaminophen, isosorbide mononitrate er, linzess, omeprazole, lyrica, rexulti,forteo, and citalopram. ALLERGIES She is allergic to ciprofloxacin; metronidazole; acetaminophen-codeine; and codeine. SOCIAL HISTORY She reports that she has quit smoking. She has quit using smokeless tobacco. She reports that she does not drink alcohol. FAMILY HISTORY Her family history includes Asthma in her daughter; Cancer in her other; Congenital heart disease in her father; Coronary artery disease in her mother's sister and other; Diabetes in her other; Diabetes type II in her other; Stroke in her other. REVIEW OF SYSTEMS Review of Systems Constitutional: Negative for activity change, appetite change, chills and fever. HENT: Negative for congestion, dental problem, ear pain, hearing loss and voice change. Eyes: Negative for pain and visual disturbance. Respiratory: Positive for apnea and cough. Negative for chest tightness and shortness of breath. Cardiovascular: Negative for chest pain, palpitations and leg swelling. Gastrointestinal: Negative for blood in stool, constipation, diarrhea, nausea and vomiting. Endocrine: Negative for cold intolerance and heat intolerance. Genitourinary: Negative for difficulty urinating and hematuria. Skin: Negative for color change, rash and wound. Allergic/Immunologic: Negative for environmental allergies. Neurological: Negative for dizziness, syncope, numbness and headaches. Hematological: Negative for adenopathy. Does not bruise/bleed easily. Psychiatric/Behavioral: Negative for confusion. The patient is not nervous/anxious and is not hyperactive. Objective PHYSICAL EXAM BP 121/82 Pulse 82 Ht 152.4 cm (5') Wt 78 kg (172 lb) BMI 33.59 kg/m?? Right foot/ankle Inspection Erythema: absent Effusion: absent Surgical scar/wound: present. The surgical scar/wound is: healed and no infection. There is no drainage present. Deformity: absent Callous: absent Edema: absent Skin temperature: normal Gait: antalgic Standing exam Hindfoot: neutral Forefoot: neutral Arch: normal Double heel raise: unable Single heel raise: unable Ankle: Anterior joint line: no Medial ankle: PTT, insertion: no PTT, inframalleolar: yes Deltoid: no Medial malleolus: yes Lateral ankle: ATFL: no CFL: no AITFL (squeeze test): no Heel: Plantar fascia, origin: no Plantar fascia, midsubstance: no Range of motion The patient has reduced range of motion. The patient has pain with range of motion. Ankle: Dorsiflexion knee extended: 5 Dorsiflexion knee flexed: 10 Plantarflexion: 20 Subtalar: Eversion: 5 Inversion: 15 Stability Anterior drawer: stable Talar tilt: stable Strength The patient has 5/5 strength throughout with exceptions as noted below. Anterior Tibialis (L4-L5): 4/5 Ext. Hallucis Longus (L5): 5/5 Ext. Digitorum Longus: 5/5 Posterior Longus/Brevis (S1): 5/5 Posterior Tibialis (L5): 3/5 and pain limits strength Flex. Hallucis Longus (L5): 5/5 Flex. Digitorum Longus: 5/5 Gastroc/Soleus (sitting) (S1,S2): 3/5 and pain limits strength Neurovascular Dorsalis pedis pulse: 1+ Posterior tibial pulse: 1+ The patient has normal sensation with exceptions as noted below. Medial plantar: intact Lateral plantar: intact S. Peroneal: intact D. Peroneal: intact Sural: intact Saphenous: intact Left foot The patient has normal inspection, palpation, range of motion, strength,and stability of the left foot. REVIEW OF X-RAYS/STUDIES/LABS XR Ankle Right 3+ Vw Synthes fibular plate in appropriate position screws in appropriate position no signs of loosening mild osteopenia well-healed fracture Assessment/Plan Shivani was seen today for pain. Diagnoses and all orders for this visit: Right ankle pain, unspecified chronicity - XR Ankle Right 3+ Vw Painful orthopaedic hardware (CMS/HCC) Procedures PLAN Risks and benefits of the surgery were discussed with the patient. These include but are not limited to bleeding infection damage to surrounding structures including ... DVT, PE, stroke, heart attack, and . Patient understands these risks and agreed to proceed with the surgery as described above. All questions and concerns were addressed with the patient prior to surgical consent being established in the office today. The patient will follow up for surgery. Plan hardware removal ankle arthroscopy debridement and placing norian backfilling the screw holes Arnol Moreau MD SAGE JUDGE documented in this encounter Plan of Treatment Not on file documented as of this encounter Procedures Procedure Name Priority Date/Time Associated Diagnosis Comments XR ANKLE RIGHT 3 OR MORE VIEWS Schedule Routine, Read Routine (OP Routine) 01/18/2018 3:29 PM DRESSAGE JUDGE Right ankle pain, unspecified chronicity documented in this encounter Results * XR Ankle Right 3+ Vw (01/18/2018 3:29 PM DRESSAGE JUDGE) Anatomical Region Laterality Modality Lower Extremities, Ankle Right Radiogr aphic Imaging Narrative 01/18/2018 3:56 PM DRESSAGE JUDGE Synthes fibular plate in appropriate position screws in appropriate position no signs of loosening mild osteopenia well-healed fracture us Arnol Moreau MD IMG XR PROCEDURES Final Resu lt documented in this encounter Visit Diagnoses Diagnosis Right ankle pain, unspecified chronicity- Primary Painful orthopaedic hardware (HCC) documented in this encounter Discontinued Medications Medication Sig Discontinue Reason Start Date End Da te DULoxetine DR (CYMBALTA) 20 mg capsule Duplicate order 01/04/2018 01/18/2018 nebivolol (BYSTOLIC) 5 mg tablet Take 1.5 tablets (7.5 mg total) by mouth daily. Duplicate order 10/26/2017 01/18/2018 cyclobenzaprine ER (AMRIX) 15 mg 24 hr capsule take 1 capsule by oral route every day Duplicate order 01/11/2017 01/18/2018 documented as of this encounter Historical Medications * This list may reflect changes made after this encounter. cyclobenzaprine (FLEXERIL) 10 mg tablet Take 1 tablet (10 mg total) by mouth 3 (three) times a day as needed 10/28/2017 BYSTOLIC 20 mg tablet 01/11/2018 08/15/2018 HYDROcodone-aceta minophen (NORCO) 5-325 mg per tabletIndications :Pain Take 1 tablet by mouth every 6 (six) hours as needed. 0 01/01/2018 10/01/2020 gabapentin (NEURONTIN) 300 mg capsule 01/20/[address] (CYMBALTA) 20 mg capsule 01/04/2018 01/18/2018 dexamethasone (DECADRON) 1 mg tablet 12/28/2017 01/20/2018 REXULTI 2 mg tablet 11/03/2017 01/20/2018 added in this encounter Care Teams Sorter Upholstery Parts Relationship Specialty Start Date End Date Mendoza Parker MD PCP - General 02/18/17 06/12/20 documented as of this encounter
--- OUTSIDE RECORDS SUMMARY | 2024-11-19 04:54 | XMS_ITS | Encounter Summary ---
Author Organization [facility] Address [address] [place] [address] Phone Care Team Providers Care Cake Wringer Name Role Phone Mendoza Parker MD Primary Care Provider +1- [phone] Reason for Visit * Reason Onset Date Comments cpap mask 08/29/2017 Encounter Details Date Type Department Care Team (Late st Contact Info) Description 08/29/2017 Telephone [facility] [address] [place] [address] Mendoza Parker MD [address] [place] [id number] cpap mask Social History Tobacco Use Types Packs/Day Years Used Date Smoking Tobacco: Former Smokeless Tobacco: Former Alcohol Use Standard Drinks/Week Comments No 0 (1 standard drink = 0.6 oz pur e alcohol) Comments Unknown Sex and Gender Information Value Date Recorded Sex Assigned at Not on file Legal Sex Female 12:46 AM CONSTRUCTION PROJECT MGR Gender Identity Not on file Sexual Orientation Not on file documented as of this encounter Miscellaneous Notes * Telephone Encounter - Nieves Smith - 09/06/2017 8:52 AM CDT Pt aware she needs to have a [id number] appt first in order to get C-Pap Supplies. Pt voiced understanding. Appt made for 09-08-17 @ 2:10pm.. * Telephone Encounter - Maria G Castro LPN - 08/29/2017 1:31 PM CDT Per verbal order from md; May have order for supplies or what ever she needs, may try IV [facility]. To front sight attacher for cpap supplies Thank you * Telephone Encounter - Eugenie Moncada MA - 08/29/2017 12:11 PM CDT Spoke with pt - inquired how she received CPAP machine - she states Dr Zhang decided she would need CPAP by talking with spouse and pt - and exam of pt - due to spouse claim pt snores loudly & physical exam by MD showed jaw did not line up appropriately She is doing really well with this and is requesting a replacement mask (she uses nasal mask) - ok to order ?? * Telephone Encounter - Mary Carmen - 08/29/2017 11:07 AM CDT Asking for a new mask for current cpap. Got current machine through Dr. Zhang. Pt states she has never had a sleep study, states they just gave it to me. Gets machine from [facility]-pt owns the machine. Please advise. (advise may need a sleep study.) documented in this encounter Plan of Treatment Not on file documented as of this encounter Visit Diagnoses Not on filedocumented in this encounter Care Teams Cake Wringer Relationship Specialty Start Date End Date Mendoza Parker MD PCP - General 02/18/17 06/12/20 documented as of this encounter
--- OUTSIDE RECORDS SUMMARY | 2024-11-19 04:54 | XMS_ITS | Encounter Summary ---
Author Organization [facility] Address [address] [place] [address] Care Team Providers Care Butter Production Supervisor Name Role Phone Mendoza Parker MD Primary Care Provider +1- [phone] Encounter Details Date Type Department Care Team (Late st Contact Info) Description 02/06/2018 Telephone [facility] Orthopedics and Sports Medicine 4 [facility] [address] [place] [address] Arnol Moreau MD [address] [place] [address] [address] [place], [place] [id number] Social History Tobacco Use Types Packs/Day Years Used Date Smoking Tobacco: Every Day Cigarettes Smokeless Tobacco: Former Alcohol Use Standard Drinks/Week Comments No 0 (1 standard drink = 0.6 oz pur e alcohol) Comments Unknown Sex and Gender Information Value Date Recorded Sex Assigned at Not on file Legal Sex Female 12:46 AM INTERNET RETAILER Gender Identity Not on file Sexual Orientation Not on file documented as of this encounter Miscellaneous Notes * Telephone Encounter - Deepti Quesada - 02/06/2018 10:21 AM CDT void documented in this encounter Plan of Treatment Not on file documented as of this encounter Visit Diagnoses Not on filedocumented in this encounter Care Teams Butter Production Supervisor Relationship Specialty Start Date End Date Mendoza Parker MD PCP - General 02/18/17 06/12/20 documented as of this encounter
--- OUTSIDE RECORDS SUMMARY | 2024-11-19 04:54 | XMS_ITS | Encounter Summary ---
Author Organization [facility] Address [address] [place] [address] Care Team Providers Care Deli Cook Name Role Phone Mendoza Parker MD Primary Care Provider +1- [phone] Encounter Details Date Type Department Care Team (Late st Contact Info) Description 01/25/2018 Orders Only [facility] Orthopedics and Sports Medicine 4 [facility] [address] [place] [address] Dennis Chung PA [address] [place] [address] [address] [place] [address] Social History Tobacco Use Types Packs/Day Years Used Date Smoking Tobacco: Every Day Cigarettes Smokeless Tobacco: Former Alcohol Use Standard Drinks/Week Comments No 0 (1 standard drink = 0.6 oz pur e alcohol) Comments Unknown Sex and Gender Information Value Date Recorded Sex Assigned at Not on file Legal Sex Female 12:46 AM FINAL TESTER Gender Identity Not on file Sexual Orientation Not on file documented as of this encounter Ordered Prescriptions Prescription Sig Dispense Quantity Refills Last Filled Start Date End Date ascorbic acid (VITAMIN C) 500 mg tablet,chewable Take 1 tablet by mouth 2 times daily until finished 60 tablet/chew tab 01/25/2018 8 HYDROcodone-acetam inophen (NORCO) 5-325 mg per tabletIndications: Pain Take 1-2 tablets by mouth every 4-6 hours as needed for pain 23 tablet 01/25/2018 8 aspirin 325 mg EC tablet Take 1 tablet by mouth every 12 hours until finished 30 tablet 01/25/2018 8 documented in this encounter Plan of Treatment Not on file documented as of this encounter Visit Diagnoses Not on filedocumented in this encounter Care Teams Deli Cook Relationship Specialty Start Date End Date Mendoza Parker MD PCP - General 02/18/17 06/12/20 documented as of this encounter
--- OUTSIDE RECORDS SUMMARY | 2024-11-19 04:54 | XMS_ITS | Encounter Summary ---
Author Organization [facility] Address [address] [place] [address] Phone Care Team Providers Care Boilermaker Welder Name Role Phone Mendoza Parker MD Primary Care Provider +1- [phone] Reason for Visit * Reason Onset Date Comments Hypertension 08/01/2017 Encounter Details Date Type Department Care Team (Late st Contact Info) Description 08/01/2017 Telephone [facility] [address] [place] [address] Mendoza Parker MD [address] [place] [address] Hypertension Social History Tobacco Use Types Packs/Day Years Used Date Smoking Tobacco: Former Cigarettes Q uit: 11/21/2003 Alcohol Use Standard Drinks/Week Comments No 0 (1 standard drink = 0.6 oz pur e alcohol) Comments Unknown Sex and Gender Information Value Date Recorded Sex Assigned at Not on file Legal Sex Female 12:[address] JUDGE Gender Identity Not on file Sexual Orientation Not on file documented as of this encounter Miscellaneous Notes * Telephone Encounter - Yadi Perla - 09/28/2017 11:[address] JUDGE error CIATE [address] JUDGE documented in this encounter Plan of Treatment Not on file documented as of this encounter Visit Diagnoses Not on filedocumented in this encounter Care Teams Boilermaker Welder Relationship Specialty Start Date End Date Mendoza Parker MD PCP - General 02/18/17 06/12/20 documented as of this encounter
--- OUTSIDE RECORDS SUMMARY | 2024-11-19 04:54 | XMS_ITS | Encounter Summary ---
Author Organization [email or web address] Address [address] [email or web address] [address] Phone Care Team Providers Care Ship'S Pilot Name Role Phone Mendoza Parker MD Primary Care Provider +1- [phone] Encounter Details Date Type Department Care Team (Late st Contact Info) Description 06/17/2017 Telephone [facility] [address] [email or web address] [address] Mendoza Parker MD [address] [id number] Social History Tobacco Use Types Packs/Day Years Used Date Smoking Tobacco: Former Cigarettes Q uit: 11/21/2003 Alcohol Use Standard Drinks/Week Comments No 0 (1 standard drink = 0.6 oz pur e alcohol) Comments Unknown Sex and Gender Information Value Date Recorded Sex Assigned at Not on file Legal Sex Female 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 * Telephone Encounter - Eugenie Moncada MA - 06/20/2017 10:26 AM CDT Spoke with pt advised that Dr states for her to continue with the 10 mg Bystolic - adv of coupon - she will black pickler - Do we need to give her a new script that reflects the dosage change for coupon ?? * Telephone Encounter - Eugenie Moncada MA - 06/17/2017 2:59 PM CDT Attempted to call pt - LVM return call - clm * Telephone Encounter - Mendoza Parker MD - 06/17/2017 2:54 PM CDT Continue with Bystolic 10 milligrams daily . I have a drug coupon where this drug only cost 10 dollars a month for many patient if this is a benefit for her coupon is a her in the closet with the samples of Bystolic. * Telephone Encounter - Cecilia Hills - 06/17/2017 9:57 AM CDT TO FOR REVIEW * Telephone Encounter - Mary Carmen - 06/17/2017 9:33 AM CDT Pt was on Bystolic 7.5 mg. Once daily. Pt has increased to 10 mg once a day and it seems to be really helping pressures. States pressures were 158/92-95 now more in the 80s. -asking this medicine be increased-has WRB 08-09-17. documented in this encounter Plan of Treatment Not on file documented as of this encounter Visit Diagnoses Not on filedocumented in this encounter Care Teams Ship'S Pilot Relationship Specialty Start Date End Date Mendoza Parker MD PCP - General 02/18/17 06/12/20 documented as of this encounter
--- OUTSIDE RECORDS SUMMARY | 2024-11-19 04:54 | XMS_ITS | Encounter Summary ---
Author Organization [facility] Address [address] [facility] [address] [place] [address] Care Team Providers Care Plaster And Stucco Worker Name Role Phone Mendoza Parker MD Primary Care Provider [phone]- [phone] Reason for Visit * Reason Comments Post-op Encounter Details Date Type Department Care Team (Latest Contact Info) Description 02/06/2018 3:00 PM CDT Office Visit [facility] Orthopedics and Sports Medicine 4 [facility] [address] [place] [phone] Dennis Chung PA [address] [place] [address] [address] [place] [address] Aftercare following surgery of the musculoskeletal system (Primary Dx) Social History Tobacco Use Types Packs/Day Years Used Date Smoking Tobacco: Every Day Cigarettes Smokeless Tobacco: Former Alcohol Use Standard Drinks/Week Comments No 0 (1 standard drink = 0.6 oz pur e alcohol) Comments Unknown Sex and Gender Information Value Date Recorded Sex Assigned at Not on file Legal Sex Female 12:46 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 GUARD Gender Identity Not on file Sexual Orientation Not on file documented as of this encounter Last Filed Vital Signs Vital Sign Reading Time Taken Comments Blood Pressure 151/100 02/06/2018 2:59 PM CDT Pulse 104 02/06/2018 2:59 PM CDT Temperature - - Respiratory Rate - - Oxygen Saturation - - Inhaled Oxygen Concentration - - Weight 77.6 kg (171 lb) 02/06/2018 2:59 PM CDT Height 152.4 cm (5') 02/06/2018 2:59 PM CDT Body Mass Index 33.4 02/06/2018 2:59 PM CDT documented in this encounter Progress Notes * Dennis Chung PA - 02/06/2018 3:00 PM CDT Images from the original note were not included. FOLLOW UP VISIT Subjective CHIEF COMPLAINT She had concerns including Post-op of the Right Ankle. HISTORY OF PRESENT ILLNESS Shivani is here 1 wk s/p ankle hardware removal with incision concerns, she states that 3 days ago her anterior portal appeared to be open and draining. MEDICATIONS She has a current medication list which includes the following prescription(s): ascorbic acid, aspirin, atorvastatin, azelastine, bystolic, vitamin d3, cyclobenzaprine, cymbalta, estrace, hydrocodone-acetaminophen, isosorbide mononitrate er, linzess, lubiprostone, ovvnlyuy-ndzzpspha-oskqaaqvicdwc, o meprazole, lyrica, and zolpidem. REVIEW OF SYSTEMS Review of Systems Constitutional: Negative for chills, fatigue and fever. HENT: Negative for sore throat. Respiratory: Negative for cough and shortness of breath. Cardiovascular: Negative for chest pain. Gastrointestinal: Negative for constipation, nausea and vomiting. Neurological: Negative for dizziness, light-headedness and headaches. Objective PHYSICAL EXAM BP 151/100 Pulse 104 Ht 152.4 cm (5') Wt 77.6 kg (171 lb) BMI 33.40 kg/m?? Right foot/ankle Inspection Surgical scar/wound: present. The surgical scar/wound is: well approximated and no infection. Edema: present Gait: antalgic Comments: Incisions are well approximated and there is no active drainage noted with moderate edemaand ecchymosis noted. REVIEW OF X-RAYS/STUDIES/LABS Assessment/Plan Shivani was seen today for post-op. Diagnoses and all orders for this visit: Aftercare following surgery of the musculoskeletal system PLAN Today the portal and other incision appear intact with no drainage and well approximated. No signs of infection. She will be WBAT and RTC at her 2 wk visit. INO Watson documented in this encounter Plan of Treatment Not on file documented as of this encounter Visit Diagnoses Diagnosis Aftercare following surgery of the musculoskeletal system- Primary Aftercare following surgery of the musculoskeletal system, NEC documented in this encounter Discontinued Medications Medication Sig Discontinue Reason Start Date End Da te DULoxetine DR (CYMBALTA) 30 mg capsule Duplicate order 7 02/06/2018 documented as of this encounter Historical Medications * This list may reflect changes made after this encounter. Medication Sig Dispense Quantity Refills Last Filled Start D ate End Date lngxceaa-utfqqwods-ym xamethasone (MAXITROL) 3.5mg/mL-10,000 unit/mL-0.1 % ophthalmic suspension 02/01/[address] (CYMBALTA) 30 mg capsule 10/31/2017 02/06/2018 added in this encounter Care Teams Plaster And Stucco Worker Relationship Specialty Start Date End Date Mendoza Parker MD PCP - General 02/18/17 06/12/20 documented as of this encounter
--- OUTSIDE RECORDS SUMMARY | 2024-11-19 04:54 | XMS_ITS | Encounter Summary ---
Author Organization [facility] Address [address] [place] [address] Phone Care Team Providers Care Lighting Designer Name Role Phone Mendoza Parker MD Primary Care Provider [phone]- [phone] Reason for Visit * Reason Onset Date Comments cpap mask/supplies 10/27/2017 Encounter Details Date Type Department Care Team (Late st Contact Info) Description 10/27/2017 Telephone [facility] [address] [place] [address] Mendoza Parker MD [address] [place] [id number] cpap mask/supplies Social History Tobacco Use Types Packs/Day Years Used Date Smoking Tobacco: Former Smokeless Tobacco: Former Alcohol Use Standard Drinks/Week Comments No 0 (1 standard drink = 0.6 oz pur e alcohol) Comments Unknown Sex and Gender Information Value Date Recorded Sex Assigned at Not on file Legal Sex Female 12:46 AM COBBLER APPRENTICE Gender Identity Not on file Sexual Orientation Not on file documented as of this encounter Miscellaneous Notes * Telephone Encounter - Cecilia Hills LPN - 10/27/2017 3:01 PM CST ORDERS WRITTEN -- TO FAX TO [phone]. AVS FAXED LER APPRENTICE * Telephone Encounter - Mary Carmen - 10/27/2017 1:53 PM CST Pt asking for cpap mask. States Maurisio advised her for rx from pcp. -there is 09-08-17 f2f ov notes regarding cpap usage to send with the rx. Maurisio: Tel: [phone] or [phone] -pt uses [facility]. LER APPRENTICE documented in this encounter Plan of Treatment Not on file documented as of this encounter Visit Diagnoses Not on filedocumented in this encounter Care Teams Lighting Designer Relationship Specialty Start Date End Date Mendoza Parker MD PCP - General 02/18/17 06/12/20 documented as of this encounter
--- OUTSIDE RECORDS SUMMARY | 2024-11-19 04:54 | XMS_ITS | Encounter Summary ---
Author Organization [facility] Address [address] [facility] [address] [place] [address] Care Team Providers Care Construction Engineer Name Role Phone Mendoza Parker MD Primary Care Provider [phone]- [phone] Mendoza Parker MD Primary Care Provider [phone]- [phone] Margarito العراقي MD Primary Care Provider [phone] Encounter Details Date Type Department Care Team (Late st Contact Info) Description 07/26/2017 Orders Only [facility] [address] [place] [address] Scanning, Provider Social History Tobacco Use Types Packs/Day Years Used Date Smoking Tobacco: Former Cigarettes Q uit: 11/21/2003 Alcohol Use Standard Drinks/Week Comments No 0 (1 standard drink = 0.6 oz pur e alcohol) Comments Unknown Sex and Gender Information Value Date Recorded Sex Assigned at Not on file Legal Sex Female 12:46 AM BRAND COORDINATOR Gender Identity Not on file Sexual Orientation Not on file documented as of this encounter Plan of Treatment Not on file documented as of this encounter Procedures Procedure Name Priority Date/Time Associated Diagnosis Comments SCAN - LABS 07/26/2017 10:04 AM CDT documented in this encounter Results * SCAN - LABS (07/26/2017 10:04 AM CDT) us Provider Scanning Final Result documented in this encounter Visit Diagnoses Not on filedocumented in this encounter Care Teams Construction Engineer Relationship Specialty Start Date End Date Mendoza Parker MD PCP - General 02/18/17 06/12/20 Mendoza Parker MD PCP - General 06/13/20 09/03/20 Margarito العراقي MD [address] [place] [address] PCP - General Family Medicine 09/04/20 documented as of this encounter
--- OUTSIDE RECORDS SUMMARY | 2024-11-19 04:54 | XMS_ITS | Encounter Summary ---
Author Organization [facility] Address [address] [address] Care Team Providers Care Route Process Administrator Name Role Phone Mendoza Parker MD Primary Care Provider [phone]- [phone] Reason for Visit * Reason Comments Post-op Encounter Details Date Type Department Care Team (Latest Contact Info) Description 03/14/2018 1:30 PM CDT Office Visit [facility] Orthopedics and Sports Medicine [address] [place] [address] Richardson Shields II, PA [address] [place] [address] [address] [place] [address] S/P hardware removal (Primary Dx); Painful orthopaedic hardware (CMS/HCC); Aftercare following surgery of the musculoskeletal system; Status post open reduction with internal fixation (ORIF) of fracture of ankle Social History Tobacco Use Types Packs/Day Years Used Date Smoking Tobacco: Every Day Cigarettes Smokeless Tobacco: Never Alcohol Use Standard Drinks/Week Comments No 0 (1 standard drink = 0.6 oz pur e alcohol) Comments Unknown Sex and Gender Information Value Date Recorded Sex Assigned at Not on file Legal Sex Female 12:46 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 Gender Identity Not on file Sexual Orientation Not on file documented as of this encounter Last Filed Vital Signs Vital Sign Reading Time Taken Comments Blood Pressure 130/88 03/14/2018 1:46 PM CDT Pulse 99 03/14/2018 1:46 PM CDT Temperature - - Respiratory Rate - - Oxygen Saturation - - Inhaled Oxygen Concentration - - Weight 77 kg (169 lb 12.8 oz) 03/14/2018 1:46 PM CDT Height 152.4 cm (5') 03/14/2018 1:46 PM CDT Body Mass Index 33.16 03/14/2018 1:46 PM CDT documented in this encounter Progress Notes * Richardson Shields PA - 03/14/2018 1:30 PM CDT Images from the original note were not included. FOLLOW UP VISIT Subjective CHIEF COMPLAINT She had concerns including Post-op of the Right Ankle. HISTORY OF PRESENT ILLNESS Shivani Betancur is a 52 y.o. female who presents to the office today for follow- up examination of her right ankle. She is status post hardware removal on 01/31/[address] Moreau. Mrs. Betancur has experienced right ankle pain for the last 4 years following open reduction and internal fixation 2013 for a fracture of the distal right fibula and injury to the syndesmosis. Mrs. Betancur had the syndesmotic screws removed in 2014, continued to have therapy and continued to have pain. She presents to the office today ambulating unassisted and wearing her tall Cam walker boot. She has minimal discomfort with weight-bearing and range of motion. Pain Assessment Pain Assessment: No/denies pain MEDICATIONS She has a current medication list which includes the following prescription(s): rbvelatdidrhv-xavqdlj-ikzswgrk, alendronate, ascorbic acid, aspirin, atorvastatin, azelastine, bystolic, calcium carbonate-vitamin d3, vitamin d3, citalopram, cyclobenzaprine, cyclobenzaprine, dexamethasone, cymbalta, er gocalciferol, estrace, hydrocodone-acetaminophen, isosorbide mononitrate er, linzess, lubiprostone,ttlzpjex-lbonqpgkk-rvdgznvtjszkk, omeprazole, pen needle, diabetic, lyrica, teriparatide, and zolpidem. REVIEW OF SYSTEMS Review of Systems Constitutional: Positive for chills. Negative for activity change, appetite change and fever. HENT: Negative for congestion, dental problem, ear pain, hearing loss and voice change. Eyes: Negative for pain and visual disturbance. Respiratory: Negative for apnea, cough, chest tightness and shortness of breath. Cardiovascular: Negative for chest pain, palpitations and leg swelling. Gastrointestinal: Positive for constipation. Negative for blood in stool, diarrhea, nausea and vomiting. Endocrine: Negative for cold intolerance and heat intolerance. Genitourinary: Negative for difficulty urinating and hematuria. Skin: Negative for color change, rash and wound. Allergic/Immunologic: Negative for environmental allergies. Neurological: Negative for dizziness, syncope, numbness and headaches. Hematological: Negative for adenopathy. Does not bruise/bleed easily. Psychiatric/Behavioral: Positive for decreased concentration. Negative for confusion. The patient is nervous/anxious. The patient is not hyperactive. Objective PHYSICAL EXAM BP 130/88 Pulse 99 Ht 152.4 cm (5') Wt 77 kg (169 lb 12.8 oz) BMI 33.16 kg/m?? Right foot/ankle Inspection Erythema: absent Effusion: absent Surgical scar/wound: present. The surgical scar/wound is: healed and no infection. There is no drainage present. Deformity: absent Edema: absent Skin temperature: normal Gait: antalgic Standing exam Hindfoot: neutral Ankle: Anterior joint line: no Medial ankle: PTT, insertion: no Medial malleolus: no Lateral ankle: ATFL: no CFL: no Lateral malleolus: no Peroneal insertion/tubercle: no Heel: Plantar fascia, origin: no Achilles insertion: no Range of motion The patient has reduced range of motion. The patient does not have pain with range of motion. Ankle: Dorsiflexion knee flexed: 10 Plantarflexion: 30 Subtalar: Eversion: 5 Inversion: 20 Stability Anterior drawer: stable Talar tilt: stable Strength Anterior Tibialis (L4-L5): 4/5 Ext. Hallucis Longus (L5): 5/5 Ext. Digitorum Longus: 5/5 Posterior Longus/Brevis (S1): 4/5 Posterior Tibialis (L5): 4/5 Flex. Hallucis Longus (L5): 5/5 Flex. Digitorum Longus: 5/5 Gastroc/Soleus (sitting) (S1,S2): 4/5 Neurovascular Dorsalis pedis pulse: 1+ Posterior tibial pulse: 1+ The patient has normal sensation with exceptions as noted below. Comments: Well-healed surgical incision lateral malleolus with no devon- incisional erythema or drainage. No devon-incisional tenderness. REVIEW OF X-RAYS/STUDIES/LABS Assessment/Plan Shivani was seen today for post-op. Diagnoses and all orders for this visit: S/P hardware removal Painful orthopaedic hardware (CMS/HCC) Aftercare following surgery of the musculoskeletal system Status post open reduction with internal fixation (ORIF) of fracture of ankle PLAN Mrs. Betancur has accepted a referral to [facility] in [place] to receive AROM and ankle strengthening program twice a week for the next 4 weeks. She is encouraged to resume hernormal activities as tolerated and will return to the office in 1 month for reexamination. Mrs. Betancur is encouraged to call the office anytime she has any problems or concerns during the interim. BLAIRE Corcoran PA Cosigned by Arnol Moreau MD at 03/20/2018 3:32 PM CDT documented in this encounter Plan of Treatment Not on file documented as of this encounter Visit Diagnoses Diagnosis S/P hardware removal- Primary Painful orthopaedic hardware (HCC) Aftercare following surgery of the musculoskeletal system Aftercare following surgery of the musculoskeletal system, NEC Status post open reduction with internal fixation (ORIF) of fracture of ankle documented in this encounter Historical Medications * This list may reflect changes made after this encounter. cyclobenzaprine (FLEXERIL) 10 mg tablet 2 times daily. 8 teriparatide (FORTEO) 20 mcg/dose - 600 mcg/2.4 mL injection INJECT 20mcg SUBCUTANEOUSLY ONCE DAILY. 06/30/2015 8 acetaminophen-a spirin-caffeine (EXCEDRIN MIGRAINE) 250-250-65 mg per tablet 1-2 per week 0 ergocalciferol (VITAMIN D) 50,000 unit capsule TAKE ONE CAPSULE ONCE A WEEK FOR 8 WEEKS 04/25/2012 8 dexamethasone (DECADRON) 1 mg tablet TAKE 1 TABLET Once Take at 11 PM , the night before you have your lab work done 12/28/2017 8 citalopram (CeleXA) 40 mg tablet daily. 01/31/2012 8 calcium carbonate-vitam in D3 (CALCIUM 500 + D) 1,250mg (500mg elemental) - 200 units per tablet 0 pen needle, diabetic (BD ULTRA-FINE MINI PEN NEEDLE) 31 gauge x 3/16 needle use one needle daily with Forteo Pen 06/30/2015 0 alendronate (FOSAMAX) 70 mg tablet 03/10/2018 8 added in this encounter Care Teams Route Process Administrator Relationship Specialty Start Date End Date Mendoza Parker MD PCP - General 02/18/17 06/12/20 documented as of this encounter
--- OUTSIDE RECORDS SUMMARY | 2024-11-19 04:54 | XMS_ITS | Encounter Summary ---
Author Organization [facility] Address [address] [address] Care Team Providers Care Lens Generating Machine Tender Name Role Phone Mendoza Parker MD Primary Care Provider [phone] Encounter Details Date Type Department Care Team (Latest Contact Info) Description 02/14/2018 2:13 PM CDT - 02/14/2018 11:59 PM CDT Hospital Encounter [facility] Orthopedics and Sports Medicine [address] [place] [id number] Discharge Disposition: Discharge to home or self care Social History Tobacco Use Types Packs/Day Years Used Date Smoking Tobacco: Every Day Cigarettes Smokeless Tobacco: Never Alcohol Use Standard Drinks/Week Comments No 0 (1 standard drink = 0.6 oz pur e alcohol) Comments Unknown Sex and Gender Information Value Date Recorded Sex Assigned at Not on file Legal Sex Female 12:46 AM COMPUTER FORENSICS EXAMINER Gender Identity Not on file Sexual Orientation Not on file documented as of this encounter Medications at Time of Discharge cyclobenzaprine (FLEXERIL) 10 mg tablet Take 1 tablet (10 mg total) by mouth 3 (three) times a day as needed 10/28/2017 ascorbic acid (VITAMIN C) 500 mg tablet,chewable Take 1 tablet by mouth 2 times daily until finished 60 tablet/chew tab 01/25/2018 04/11/20 18 aspirin 325 mg EC tablet Take 1 tablet by mouth every 12 hours until finished 30 tablet 01/25/2018 04/11/20 18 atorvastatin (LIPITOR) 20 mg tablet TAKE ONE TABLET BY MOUTH ONCE DAILY 90 tablet 1 01/30/2018 09/09/20 18 azelastine 0.15 % (205.5 mcg) spray,non-aeroso l SPRAY 1 SPRAY INTO EACH NOSTRIL TWICE A DAY 30 mL 3 12/27/2017 01/12/20 20 BYSTOLIC 20 mg tablet 01/11/2018 08/15/20 18 cholecalciferol (VITAMIN D3) 2,000 unit capsule take 1 by Oral route every day 0 0 08/02/2013 09/04/20 18 citalopram (CeleXA) 40 mg tablet daily. 01/31/2012 05/11/20 18 dexamethasone (DECADRON) 1 mg tablet TAKE 1 TABLET Once Take at 11 PM , the night before you have your lab work done 12/28/2017 05/11/[address] (CYMBALTA) 60 mg capsule take 1 capsule by oral route maxi day 90 0 03/14/2014 11/16/20 18 ergocalciferol (VITAMIN D) 50,000 unit capsule [...] by mouth daily with breakfast. 04/17/20 20 neomycin-polymyx in-dexamethasone (MAXITROL) 3.5mg/mL-10,000 unit/mL-0.1 % ophthalmic suspension 02/01/2018 04/17/20 20 omeprazole (PriLOSEC) 40 mg capsule TAKE ONE CAPSULE BY MOUTH ONCE DAILY 30 capsule 01/06/2018 05/16/20 19 pen needle, diabetic (BD ULTRA-FINE MINI PEN NEEDLE) 31 gauge x 3/16 needle use one needle daily with Forteo Pen 06/30/2015 10/01/20 20 pregabalin (LYRICA) 75 mg capsule take 1 capsule by oral route 2 times every day 0 0 03/07/2015 01/12/20 20 teriparatide (FORTEO) 20 mcg/dose - 600 mcg/2.4 mL injection INJECT 20mcg SUBCUTANEOUSLY ONCE DAILY. 06/30/2015 09/04/20 18 zolpidem (AMBIEN) 10 mg tabletIndication s:Sleep-Onset Insomnia Take 10 mg by mouth nightly as needed for sleep. 09/04/20 18 documented as of this encounter Discharge Disposition Disposition Code Departure Means Destination Discharge to home or self care documented in this encounter Plan of Treatment Not on file documented as of this encounter Procedures Procedure Name Priority Date/Time Associated Diagnosis Comments XR ANKLE RIGHT 3 OR MORE VIEWS Schedule Routine, Read Routine (OP Routine) 02/14/2018 2:19 PM CDT Orthopedic aftercare documented in this encounter Results * XR Ankle Right 3+ Vw (02/14/2018 2:19 PM CDT) Anatomical Region Laterality Modality Lower Extremities, Ankle Right Radiogr aphic Imaging Narrative 02/27/2018 11:21 AM CDT Interpretation of x-rays: ??Three views of the right ankle taken today in the office demonstrate, in my opinion, no acute bony abnormality, fracture or dislocation. ??Previously retained side plate and screws from the distal fibula have been removed. ??The ankle mortise appears congruent with symmetrical clear space surrounding the talus. us INO Cason II IMG XR PROCEDURES Final Result documented in this encounter Visit Diagnoses Not on filedocumented in this encounter Care Teams Lens Generating Machine Tender Relationship Specialty Start Date End Date Mendoza Parker MD PCP - General 02/18/17 06/12/20 documented as of this encounter
--- OUTSIDE RECORDS SUMMARY | 2024-11-19 04:54 | XMS_ITS | Encounter Summary ---
Author Organization [facility] Address [address] [address] Care Team Providers Care Applications Tester Name Role Phone Mendoza Parker MD Primary Care Provider [phone] Reason for Visit * Reason Comments Post-op Encounter Details Date Type Department Care Team (Late st Contact Info) Description 04/11/2018 2:00 PM CDT Office Visit [facility] Orthopedics and Sports Medicine [address] [place] [phone] Richardson Shields II, PA [address] [place] [address] [address] [place] [address] Painful orthopaedic hardware (CMS/HCC) (Primary Dx); Status post open reduction with internal fixation [...] on file 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 Gender Identity Not on file Sexual Orientation Not on file documented as of this encounter Last Filed Vital Signs Vital Sign Reading Time Taken Comments Blood Pressure 129/82 04/11/2018 2:25 PM CDT Pulse 89 04/11/2018 2:25 PM CDT Temperature - - Respiratory Rate - - Oxygen Saturation - - Inhaled Oxygen Concentration - - Weight 73.9 kg (163 lb) 04/11/2018 2:25 PM CDT Height 152.4 cm (5') 04/11/2018 2:25 PM CDT Body Mass Index 31.83 04/11/2018 2:25 PM CDT documented in this encounter Progress Notes * Richardson Shields PA - 04/11/2018 2:00 PM CDT FOLLOW UP VISIT Subjective CHIEF COMPLAINT She had concerns including Post-op of the Right Ankle. HISTORY OF PRESENT ILLNESS Shivani Betancur??is a 52 y.o.??female??who presents to the office today for follow-up examination ofher right ankle. She is status post hardware removal on 01/31/[address] Moreau. ??Mrs. Betancur has experienced right??ankle pain for the last 4 years following??open reduction??and??internal fixation 2013 for a fracture of the distal right fibula and injury to the syndesmosis. ??Mrs. Betancur had the syndesmotic screws removed in 2014,??continued??to have therapy and continued to have pain.??She presents to the office today ambulating unassisted and wearing her Tri Lock ankle support. ??She hasminimal discomfort with weight- bearing and range of motion. Mrs. Betancur has accepted a referral to [facility] in [place] to receive AROM and ankle strengthening program twice a week for the next 4 weeks. She has occasional pain and swelling with activities. Significant improvement of symptoms following hardware removal right ankle. Pain Assessment Pain Assessment: 0-10 Pain Score: 3 Pain Location: Ankle Pain Orientation: Right Pain Descriptors: Aching Pain Frequency: With movement/cough Aggravating Factors: Walking Patient's Stated Pain Goal: No pain Pain Interventions: Rest, Elevated MEDICATIONS She has a current medication list which includes the following prescription(s): jnawhirlbdbco-zuhazvx-hvipqmzn, alendronate, atorvastatin, azelastine, bystolic, calcium carbonate-vitamin d3, vitamin d3, citalopram, cyclobenzaprine, cyclobenzaprine, dexamethasone, duloxetine sade malhotra, ecotrin low strength, ergocalciferol, estrace, hydrocodone-acetaminophen, isosorbide mononitrate er, linzess, lubiprostone, zccjcngd-lzpygbfgc-uozygwtbbnday, omeprazole, pen needle, diabetic, lyrica, teriparatide, and [...] is not hyperactive. Objective PHYSICAL EXAM BP 129/82 Pulse 89 Ht 152.4 cm (5') Wt 73.9 kg (163 lb) BMI 31.83 kg/m?? Right foot/ankle Inspection Erythema: absent Effusion: absent Surgical scar/wound: present. The surgical scar/wound is: healed and no infection. There is no drainage present. Deformity: absent Edema: absent Skin temperature: normal Gait: antalgic Standing exam Hindfoot: neutral Arch: pes planus Ankle: Anterior joint line: no Medial ankle: [...] Diagnoses and all orders for this visit: Painful orthopaedic hardware (CMS/HCC) Status post open reduction with internal fixation (ORIF) of fracture of ankle PLAN Mrs. Betancur is encouraged to continue with a home exercise program for ankle range of motion and strengthening and resume her normal activities as tolerated. She will return for follow-up on an as-needed basis and is encouraged to call the office anytime she has any problems or concerns. BLAIRE Corcoran PA Cosigned by Arnol Moreau MD at 04/24/2018 6:09 PM CDT documented in this encounter Plan of Treatment Not on file documented as of this encounter Visit Diagnoses Diagnosis Painful orthopaedic hardware (HCC)- Primary Status post open reduction with internal fixation (ORIF) of fracture of ankle documented in this encounter Discontinued Medications Medication Sig Discontinue Reason Start Date End Da te ascorbic acid (VITAMIN C) 500 mg tablet,chewable Take 1 tablet by mouth 2 times daily until finished Therapy completed 01/25/2018 04/11/2018 aspirin 325 mg EC tablet Take 1 tablet by mouth every 12 hours until finished Therapy completed 01/25/2018 04/11/2018 documented as of this encounter Historical Medications * This list may reflect changes made after this encounter. DULoxetine DR (CYMBALTA) 30 mg capsule Take 30 mg by mouth daily 03/23/2018 10/01/2020 added in this encounter Care Teams Applications Tester Relationship Specialty Start Date End Date Mendoza Parker MD PCP - General 02/18/17 06/12/20 documented as of this encounter
--- OUTSIDE RECORDS SUMMARY | 2024-11-19 04:54 | XMS_ITS | Encounter Summary ---
Author Organization [facility] Address [address] [place] [address] Phone Care Team Providers Care Radiological Health Specialist Name Role Phone Mendoza Parker MD Primary Care Provider [phone]- [phone] Mendoza Parker MD Primary Care Provider [phone] Margarito العراقي MD Primary Care Provider [phone] Raymond Vela MD Unavailable [phone] Encounter Details Date Type Department Care Team (Late st Contact Info) Description 01/06/2018 Orders Only [facility] [address] [place] [address] Mendoza Parker MD [address] [id number] Social History Tobacco Use Types Packs/Day Years [...] Date/Time Associated Diagnosis Comments SCAN - LABS 01/06/2018 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 documented in this encounter Results * SCAN - LABS (01/06/2018 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) us Mendoaz Parker MD Final Resu lt documented in this encounter Visit Diagnoses Not on filedocumented in this encounter Additional Health Concerns Infection Onset Date Last Indicated Resolved Time COVID: Suspected 02/20/2024 02/20/2024 02/20/2024 2:54 PM CDT documented as of this encounter Care Teams Radiological Health Specialist Relationship Specialty Start Date End Date Mendoza Parker MD PCP - General 02/18/17 06/12/20 Mendoza Parker MD PCP - General 06/13/20 09/03/20 Margarito العراقي MD [address] [place] [address] PCP - General Family Medicine 09/04/20 Raymond Vela MD [address] [place] [address] Referring Physician Obstetrics and Gynecology 08/17/21 documented as of this encounter
--- OUTSIDE RECORDS SUMMARY | 2024-11-19 04:54 | XMS_ITS | Encounter Summary ---
Author Organization [facility] Healthcare Address [address] [place] [address] Care Team Providers Care Alum Plant Operator Name Role Phone Mendoza Parker MD Primary Care Provider [phone] Encounter Details Date Type Department Care Team (Late st Contact Info) Description 01/31/2018 1:09 PM CDT Anesthesia Event [facility] Operating Room [address] [place] [address] [place] [id number] [id number] Anesthesia Record Procedure Summary Procedure Name Responsible Anesthesiologist Anesthesia Start Time Anesthesia Stop Time right ankle hardware removal, arthroscopy ankle, debridement, limited (Right: Ankle) Rod Ortiz MD 01/31/18 1309 01/31/18 1515 Events Date Time Event Comment 01/31/2018 1040 1308 In Room 1309 An Start 1310 An Start Data 1313 An Induction The patient was reevaluated immediately before moderate or deep sedation use and before anesthesia induction. 1315 An LMA 1330 Quick Note LMA removed. ET T placed per surgeon's request for paralysis. 1331 An Intubation 1334 Anesthesia Ready 1343 Proc Start 1348 Incision Start 1456 Proc Fin 1506 An Extubation 1506 Out of Room 1507 an stop data 1515 Handoff to RN I completed my handoff [...] Patient disposition at the time of handoff: No value filed. 1515 An Stop Meds Name Total midazolam 2 mg fentaNYL 200 mcg propofol 380 mg rocuronium 45 mg ceFAZolin 2,000 mg phenylephrine 600 mcg ePHEDrine 25 mg ondansetron 4 mg dexamethasone 5 mg glycopyrrolate 0.4 mg neostigmine 3 mg Lactated Ringer's (LR) infusion 1,000 mL * Agents Name O2 Air Sevoflurane Inspired Sevoflurane * Blood No blood administrations on file. Lines, Drains, and Airways Type Details Placement Removal Peripheral IV Placement Date: 01/19 02/05; Placement Time: 1016; Catheter Size: 20 G; Orientation: Right; Location: Hand; Site Prep: Chlorhexidine; Insertion Attempts: 1; Patient Tolerance: Tolerated well; Removal Date: 08/15/18 (Site not present during this admission); Removal Time: 1224 01/31/18 1016 by Janis Luz RN 08/15/18 1224 by Dixie Castillo RN ETT Placement Date: 01/19 02/05; Placement Time: 1356 (created via procedure documentation); Mask Ventilation: 1; Technique: Video laryngoscopy; Type: ETT - single; Single Lumen Tube Size: 7 mm; Cuffed: Yes; Laryngoscope: Daniel; Blade Size: 3; Location: Oral; Insertion Attempts: 1; Placement Verification: Auscultation, Capnometry; Airway Comment: LMA #3 inserted atraumatically after typical IV induction. Surgeon request for paralysis. Propofol bolus given followed by Rocuronium. Ventilated per LMA until ETT insertion. Atraumatic DL and ETT placement with Vallejo electively. +BBS. + EtCO2; Removal Date: 01/31/18; Removal Time: 1506 01/31/18 1356 by Brando Powell CRNA 01/31/18 1506 by Brando Powell CRNA RETIRED Surgical Site 01/31/18; 1409; Ri ght; Ankle; 10/23/24 (Retired LDA, Removed/Completed by [facility] with LDA Utility); 1213 (Retired LDA, Removed/Completed by [facility] with LDA Utility) 01/31/18 1409 by Estefania Ward 10/23/24 1213 by Discharge Provider, Automatic documented in this encounter Social History Tobacco Use Types Packs/Day Years Used Date Smoking Tobacco: Every Day Cigarettes Smokeless Tobacco: Former Alcohol Use Standard Drinks/Week Comments No 0 (1 standard drink = 0.6 oz pur e alcohol) Comments Unknown Sex and Gender Information Value Date Recorded Sex Assigned at Not on file 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 Gender Identity Not on file Sexual Orientation Not on file documented as of this encounter OR Notes * Anesthesia Postprocedure Evaluation - Brando Powell CRNA - 01/31/2018 3:14 PM CDT Patient: Shivani Betancur Procedure Summary Date: 01/31/18 Room / Location: [facility] OR [address] [place] [address] OPERATING ROOM Anesthesia Start: 1309 Anesthesia Stop: Procedure: right ankle hardware removal, arthroscopy ankle, debridement, limited (Right Ankle) Diagnosis: Painful orthopaedic hardware (CMS/HCC) Right ankle pain, unspecified chronicity (Painful orthopaedic hardware (CMS/HCC) [T84.84XA]) (Right ankle pain, unspecified chronicity [M25.571]) Provider: Arnol Moreau MD Responsible Provider: Rod Ortiz MD Anesthesia Type: general ASA Status: 3 Anesthesia Type: general Last vitals BP Temp Pulse Resp SpO2 Anesthesia Post Evaluation Patient location during evaluation: PACU Patient participation: complete - patient participated Level of consciousness: arouses contract post office clerk and follows simple commands Pain score: 0 Pain management: adequate Airway patency: adequate Evidence of recall: no Anesthetic complications: no Cardiovascular status: acceptable Respiratory status: acceptable and face mask Hydration status: acceptable Pt is: normothermic Nausea/Vomiting status: none * Anesthesia Procedure Notes - Brando Powell CRNA - 01/31/2018 1:51 PM CDTAssociated Order(s): ANESTHESIA INTUBATION Airway Patient location: OR Urgency: elective Indications for airway management: anesthesia Difficult airway: no Staff: Placed by: HAZARD MITIGATION OFFICER: BRANDO POWELL Emergent airway documentation: Risks and benefits discussed: yes Consent obtained: yes Consent given by: patient Airway prep: Preoxygenated: yes Patient position: sniffing MILS maintained throughout: yes Mask difficulty assessment: 1 - vent by mask Spontaneous ventilation during airway: absent Sedation level during airway: GA Final airway details: Final airway type: endotracheal airway Tube type: ETT ETT size: 7.0 mm Cuffed: yes Technique used for successful ETT placement: video laryngoscopy Devices/Methods used in placement: intubating stylet Insertion site: oral Blade type: Daniel Video blade type: Vallejo (elective) Blade size: 3 Cormack-Lehane (video): grade I - full view of glottis Cuff inflated with: air ETT to lips: 21 cm Placement verified by: auscultation and CO2 detection Airway secured with: silk tape Number of attempts: 1 Ventilation between attempts: supraglottic airway Additional comments: LMA #3 inserted atraumatically after typical IV induction. Surgeon request for paralysis. Propofol bolus given followed by Rocuronium. Ventilated per LMA until ETT insertion. Atraumatic DL and ETT placement with Vallejo electively. +BBS. + EtCO2 * Anesthesia Preprocedure Evaluation - Rod Ortiz MD - 01/31/2018 10:37 AM CDT Anesthesia Evaluation Shivani Betancur is a 52 y.o. female HISTORY Past Medical History Neurological + Psychiatric history - depression Cardiovascular + Hypertension Respiratory + Sleep apnea (NEO) Comments: Smoker 1/3 ppd Gastrointestinal + GERD - on daily therapy. Endocrine / Other + Osteoarthritis (painful ankle hardware) History of thyroid disease: goiter. Patient Active Problem List Diagnosis ??? Hypertension ??? Depression ??? Disorder of pelvis ??? Fibrositis ??? Chronic cholecystitis ??? Goiter ??? Insomnia ??? Osteoporosis ??? Skin lesion ??? Abdominal hernia ??? Precordial pain ??? Hospital discharge follow-up ??? Obstructive sleep apnea syndrome ??? Painful orthopaedic hardware (CMS/HCC) ??? Right ankle pain Past Medical History: Diagnosis Date ??? Disorder [...] 1982 section ??? SECTION c section ??? LAPAROSCOPIC CHOLECYSTECTOMY 2013 laparoscopic cholecystectomy ??? [...] ADE/BSO ??? VAGINAL HYSTERECTOMY 2009 Hysterectomy, vaginal OB History No data available Allergies Allergen Reactions ??? Ciprofloxacin Shortness of breath, Other (See comments) and Anaphylaxis Throat swelling, SOB Asthma/shortness of breath/put patient in ER Reaction: Trouble Breathing, , , Reaction: Trouble Breathing, ??? Metronidazole Shortness of breath and Other (See comments) Throat swelling Asthma/shortness of breath/put patient in ER Reaction: Trouble Breathing, , , ??? Acetaminophen-Codeine Other (See comments) Nausea, vomiting, diarrhea ??? Codeine Nausea Only HOME MEDICATIONS : aspirin 81 mg tablet atorvastatin (LIPITOR) 20 mg tablet BYSTOLIC 20 mg tablet cholecalciferol (VITAMIN D3) 2,000 unit capsule cyclobenzaprine (FLEXERIL) [address] (CYMBALTA) 60 mg capsule estradiol (ESTRACE) 0.01 % (0.1 mg/gram) vaginal cream HYDROcodone-acetaminophen (NORCO) 5-325 mg per tablet isosorbide mononitrate ER (IMDUR) 60 mg 24 hr tablet lubiprostone (AMITIZA) 24 mcg capsule pregabalin (LYRICA) 75 mg capsule zolpidem (AMBIEN) 10 mg tablet ascorbic acid (VITAMIN C) 500 mg tablet,chewable aspirin 325 mg EC tablet azelastine 0.15 % (205.5 mcg) spray,non-aerosol linaclotide (LINZESS) 290 mcg capsule omeprazole (PriLOSEC) 40 mg capsule HYDROcodone-acetaminophen (NORCO) 5-325 mg per tablet isosorbide mononitrate ER (IMDUR) 60 mg 24 hr tablet Current Facility-Administered Medications: ??? ceFAZolin (ANCEF) IV syringe (100 mg/mL in ) 2,000 mg, 2,000 mg, intravenous, Once ??? Lactated Ringer's (LR) infusion, 30 mL/hr, intravenous, Continuous ??? sodium chloride 0.9% flush 0.5-20 mL, 0.5-20 mL, intra-catheter, PRN Social History Smoking Status ??? Current Every Day Smoker ??? Packs/day: 0.25 Smokeless Tobacco ??? Former User Alcohol Use No Drug Use No Family History Problem Relation [...] Coronary artery disease; ??? Stroke Other Stroke; PAT Physical Exam Vitals: 01/31/18 0950 BP: 140/96 Pulse: 72 Resp: 16 Temp: 36.7 ??C (98 ??F) SpO2: 98% PT: No results found for requested labs within last 720 hours. INR: No results found for requested labs within last 720 hours. APTT: No results found for requested labs within last 720 hours. Hgb A1C: No results found for requested labs within last 720 hours. CBC RBC: No results found for requested labs within last 720 hours. RDW: No results found for requested labs within last 720 hours. MCHC: No results found for requested labs within last 720 hours. MCH: No results found for requested labs within last 720 hours. MCV: No results found for requested labs within last 720 hours. Hct: No results found for requested labs within last 720 hours. Hgb: No results found for requested labs within last 720 hours. WBC: No results found for requested labs within last 720 hours. MPV: No results found for requested labs within last 720 hours. Platelets: No results found for requested labs within last 720 hours. RDW CV: No results found for requested labs within last 720 hours. RDW Sd: No results found for requested labs within last 720 hours. BMP Glucose: No results found for requested labs within last 720 hours. Calcium: No results found for requested labs within last 720 hours. Sodium: No results found for requested labs within last 720 hours. Potassium: No results found for requested labs within last 720 hours. CO2: No results found for requested labs within last 720 hours. Chloride: No results found for requested labs within last 720 hours. BUN: No results found for requested labs within last 720 hours. Creatinine: No results found for requested labs within last 720 hours. DOS Physical Exam Medical history, medications, and allergies reviewed. Attestation: This PAT evaluation 01/31/2018. Airway Exam: Mallampati: II Cervical ROM: FROM TM distance: >4 Jaw ROM: full Cardiovascular Exam: Rate: regular Rhythm: regular Pulmonary Exam: LCTA, bilat Current state: Patients current state is cooperative. Anesthesia Plan ASA 3 Planned anesthesia: General Team communication plan: LMA Induction: Induction: intravenous. Postoperative Plan: Postoperative administration opioids intended. No postoperative mechanical ventilation intended. Informed Consent: Discussed plan with attending and HAZARD MITIGATION OFFICER. Anesthesia plan and risks discussed with patient and spouse. Consent and Attending signature: I and/or my [...] Procedure Name Priority Date/Time Associated Diagnosis Comments AK AN ELECTIVE ENDOTRACHEAL AIRWAY Routine 01/31/2018 1:51 PM CDT Procedure Note - Brando Powell CRNA - 01/31/2018 1:51 PM CDTThis note is in progress. Airway Patient location: OR Urgency: elective Indications for airway management: anesthesia Difficult airway: no Staff: Placed by: PENELOPE: BRANDO POWELL Emergent airway documentation: Risks and benefits discussed: yes Consent obtained: yes Consent given by: patient Airway prep: Preoxygenated: yes Patient position: sniffing MILS maintained throughout: yes Mask difficulty assessment: 1 - vent by mask Spontaneous ventilation during airway: absent Sedation level during airway: GA Final airway details: Final airway type: endotracheal airway Tube type: ETT ETT size: 7.0 mm Cuffed: yes Technique used for successful ETT placement: video laryngoscopy Devices/Methods used in placement: intubating stylet Insertion site: oral Blade type: Daniel Video blade type: Vallejo (elective) Blade size: 3 Cormack-Lehane (video): grade I - full view of glottis Cuff inflated with: air ETT to lips: 21 cm Placement verified by: auscultation and CO2 detection Airway secured with: silk tape Number of attempts: 1 Ventilation between attempts: supraglottic airway Additional comments: LMA #3 inserted atraumatically after typical IV induction. Surgeon requestfor paralysis. Propofol bolus given followed by Rocuronium. Ventilated perLMA until ETT insertion. Atraumatic DL and ETT placement with McGrathelectively. +BBS. + EtCO2 documented in this encounter Visit Diagnoses Not on filedocumented in this encounter Administered Medications Inactive Administered Medications - up to 3 most recent administrations Medication Order MAR Action Action Date Dose Rate Site ceFAZolin (ANCEF) injection intravenous, As needed, Starting on Tue01/31/18 at 1323, Anesthesia Intra-op Given 01/31/2018 1:23 PM CDT 2,000 mg dexamethasone (DECADRON) injection intravenous, As needed, Starting on Tue01/31/18 at 1318, Anesthesia Intra-op Given 01/31/2018 1:18 PM CDT 5 mg ePHEDrine injection intravenous, As needed, Starting on Tue01/31/18 at 1357, Anesthesia Intra-op Given 01/31/2018 1:57 PM CDT 10 mg Given 01/31/2018 1:44 PM CDT 10 mg Given 01/31/2018 1:39 PM CDT 5 mg fentaNYL (SUBLIMAZE) preservative free injection intravenous, As needed, Starting on Tue01/31/18 at 1341, Anesthesia Intra-op Given 01/31/2018 2:55 PM CDT 50 mcg Given 01/31/2018 2:45 PM CDT 50 mcg Given 01/31/2018 2:12 PM CDT 50 mcg glycopyrrolate (ROBINUL) injection intravenous, As needed, Starting on Tue01/31/18 at 1448, Anesthesia Intra-op Given 01/31/2018 2:48 PM CDT 0.4 mg Lactated Ringer's (LR) infusion 30 mL/hr, intravenous, Continuous, Starting on Tue01/31/18 at 1400, Pre-Op New Bag 01/31/2018 1:45 PM CDT New Bag 01/31/2018 12:49 PM CDT 50 mL/hr midazolam (VERSED) preservative free injection intravenous, As needed, Starting on Tue01/31/18 at 1307, Anesthesia Intra-op Given 01/31/2018 1:07 PM CDT 2 mg neostigmine injection intravenous, As needed, Starting on Tue01/31/18 at 1448, Anesthesia Intra-op Given 01/31/2018 2:48 PM CDT 3 mg ondansetron (ZOFRAN) injection intravenous, As needed, nausea, vomiting, Starting on Tue01/31/18 at 1447, Anesthesia Intra-op Given 01/31/2018 2:47 PM CDT 4 mg phenylephrine (HALINA-SYNEPHRINE) injection intravenous, As needed, Starting on Tue01/31/18 at 1324, Anesthesia Intra-op Given 01/31/2018 2:06 PM CDT 100 mcg Given 01/31/2018 2:00 PM CDT 100 mcg Given 01/31/2018 1:36 PM CDT 100 mcg propofol (DIPRIVAN) IV intravenous, As needed, Starting on Tue01/31/18 at 1313, Anesthesia Intra-op Given 01/31/2018 2:11 PM CDT 30 mg Given 01/31/2018 1:28 PM CDT 150 mg Given 01/31/2018 1:13 PM CDT 200 mg rocuronium (ZEMURON) injection intravenous, As needed, Starting on Tue01/31/18 at 1329, Anesthesia Intra-op Given 01/31/2018 2:24 PM CDT 10 mg Given 01/31/2018 2:13 PM CDT 5 mg Given 01/31/2018 1:29 PM CDT 30 mg documented in this encounter Orders Procedures Count Last Ordered Date First Orde red Date ANESTHESIA INTUBATION 1 01/31/2018 documented in this encounter Care Teams Alum Plant Operator Relationship Specialty Start Date End Date Mendoza Parker MD PCP - General 02/18/17 06/12/20 documented as of this encounter
--- OUTSIDE RECORDS SUMMARY | 2024-11-19 04:54 | XMS_ITS | Encounter Summary ---
Author Organization [facility] Address [address] [place] [address] Phone Care Team Providers Care Filter Assembler Name Role Phone Mendoza Parker MD Primary Care Provider [phone]- [phone] Encounter Details Date Type Department Care Team (Late st Contact Info) Description 06/23/2017 Telephone [facility] [address] [place] [address] Mendoza Parker MD [address] [address] Social History Tobacco Use Types Packs/Day Years Used Date Smoking Tobacco: Former Cigarettes Q uit: 11/21/2003 Alcohol Use Standard Drinks/Week Comments No 0 (1 standard drink = 0.6 oz pur e alcohol) Comments Unknown Sex and Gender Information Value Date Recorded Sex Assigned at Not on file 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 Gender Identity Not on file Sexual Orientation Not on file documented as of this encounter Miscellaneous Notes * Telephone Encounter - Isabel Lawton - 06/23/2017 11:20 AM CDT Sherine from [facility] in [place] called stating pt is requesting Azelastine nasal spray (not seen on med list) Pharm CBN: [phone] documented in this encounter Plan of Treatment Not on file documented as of this encounter Visit Diagnoses Not on filedocumented in this encounter Care Teams Filter Assembler Relationship Specialty Start Date End Date Mendoza Parker MD PCP - General 02/18/17 06/12/20 documented as of this encounter
--- OUTSIDE RECORDS SUMMARY | 2024-11-19 04:54 | XMS_ITS | Encounter Summary ---
Author Organization [facility] Healthcare Address [address] [place] [id number] Care Team Providers [facility] Nurse Name Role Phone Mendoza Parker MD Primary Care Provider [phone] Encounter Details Date Type Department Care Team (Latest Contact Info) Description 08/01/2017 4:39 PM CDT - 08/03/2017 2:25 PM CDT Hospital Encounter [facility] [address] [place] [address] Cecilia Loja MD [address] [place] [id number] Discharge Disposition: Discharge to home or self care Social History Tobacco Use Types Packs/Day Years Used Date Smoking Tobacco: Former Cigarettes Q uit: 11/21/2003 Alcohol Use Standard Drinks/Week Comments No 0 (1 standard drink = 0.6 oz pur e alcohol) Comments Unknown Sex and Gender Information Value Date Recorded Sex Assigned at Not on file Legal Sex Female 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 Gender Identity Not on file Sexual Orientation Not on file documented as of this encounter Last Filed Vital Signs Vital Sign Reading Time Taken Comments Blood Pressure 121/65 08/03/2017 11:05 AM CDT Pulse 64 08/03/2017 11:05 AM CDT Temperature - - Respiratory Rate - - Oxygen Saturation - - Inhaled Oxygen Concentration - - Weight 77.5 kg (170 lb 13.7 oz) 08/01/2017 7:45 PM CDT Height 152.4 cm (5') 08/01/2017 7:45 PM CDT Body Mass Index 33.37 08/01/2017 7:45 PM CDT documented in this encounter Discharge Summaries * Miscellaneous, Not In File - 08/03/2017 5:00 AM CDT DISCHARGE SUMMARY - [facility] Patient: DALE BETANCUR Account: [id number] Room No: 2628-01 : 1965 Patient Type: MERGED WITH [facility] Attend.: Cecilia Loja M.D. Admit Date: 08/01/2017 Dict.: Sonya Inman M.D. Disch. Date: 08/03/2017 PRIMARY CARE PHYSICIAN Mendoza Parker MD CHIEF COMPLAINT Chest pain. HISTORY OF PRESENT ILLNESS Patient is a 51-year-old female with a past medical history of hypertension, tobacco abuse, came to the ER with a chief complaint of chest pain radiating into the jaw and the back so patient went to primary care's office, and they sent the patient to the ER for further evaluation. HOSPITAL COURSE 1. Chest pain, atypical. ACS ruled out. Troponin x3 is negative. Mild T- wave changes. No significant ST changes. Patient was not able to do exercise stress test. Petroleum Products Sales Representative, Dr. Rehman, was consulted. The patient did get a Lexiscan which was normal. Echo was within normal limits. Patient was advised to follow up with the primary care physician and Dr. Rehman. 2. Dyslipidemia. The patient's cholesterol level is high and triglycerides are high. Patient was encouraged about lifestyle modification. Patient will be started on Lipitor. Patient was advised to follow with the primary care physician. 3. Hypertension, controlled during the hospital stay. Patient was advised to continue the home medication and patient was advised to check blood pressure at least twice a day and take the log of readings to the primary care office. DISCHARGE DIAGNOSES 1. Chest pain, acute coronary syndrome ruled out, likely atypical. 2. Gastroesophageal reflux disease. 3. Hypertension. 4. Dyslipidemia. 5. Tobacco abuse. ACCOUNTS ADMINISTRATOR Tashi Rehman MD [facility] PROCEDURES None. IMAGING Stress test, chest x-ray. ACTIVITY As tolerated. DIET Low-salt, low-cholesterol diet. FOLLOWUP The patient is advised to follow up with PCP in 1 week. Patient was advised to follow up with Dr. Rehman in 4 weeks. VITALS Blood pressure is 121/65, pulse rate is 64, respiratory rate is 16, temperature is 36, saturating 98% to 100%. DISCHARGE MEDICATIONS Please refer to hospital discharge medical reconciliation form for further details. The new medications added are: 1. Aspirin 81 mg p.o. once daily. 2. Lipitor 20 mg p.o. once daily. 3. Imdur 60 mg p.o. once daily. 4. Omeprazole 40 mg p.o. once daily. TIME SPENT REGARDING THE PATIENT CARE TODAY More than 30 minutes. Electronically Authenticated by: Sonya Inman MD On 08/03/2017 03:26 PM CDT Sonya Inman M.D. ARISTIDES/maral TD: 08/03/2017 14:19 documented in this encounter Medications at Time of Discharge azelastine 0.15 % (205.5 mcg) spray,non-aeros ol Administer 205.5 mcg into affected nostril(s) 2 (two) times a day. 30 mL 1 06/24/2017 7 cholecalciferol (VITAMIN D3) 2,000 unit capsule take 1 by Oral route every day 0 0 08/02/2013 8 citalopram (CeleXA) 20 mg tablet take 1 tablet (20MG) by oral route every day 0 03/05/2013 8 citalopram (CeleXA) 40 mg tablet daily. 01/31/2012 8 cyclobenzaprine ER (AMRIX) 15 mg 24 hr capsule take 1 capsule by oral route every day 0 0 01/11/2017 8 docusate sodium (COLACE) 100 mg capsule take 1 capsule (100MG) by oral route every day at bedtime as needed 30 0 07/02/[address] (CYMBALTA) 60 mg capsule take 1 capsule by oral route 0 03/14/2014 8 ergocalciferol (VITAMIN D) 50,000 unit capsule TAKE ONE CAPSULE ONCE A WEEK FOR 8 WEEKS 04/25/2012 8 estradiol (ESTRACE) 0.01 % (0.1 mg/gram) vaginal cream INSERT 1/2 TO 1 GRAM VAGINALLY 1 TO 2 TIMES PER WEEK 42.5 1 03/07/2013 7 estradiol (ESTRACE) 0.01 % (0.1 mg/gram) vaginal cream INSERT 1/2 TO 1 GRAM VAGINALLY 1 TO 2 TIMES PER WEEK 42.5 0 03/07/2013 0 linaclotide (LINZESS) 290 mcg capsule take 1 capsule by oral route every day on an empty stomach at least 30 minutes before 1st meal of the day swallowing whole. 30 11 10/08/2014 8 nebivolol (BYSTOLIC) 5 mg tablet TAKE ONE AND ONE-HALF TABLET BY MOUTH EVERY DAY 45 1 03/07/2015 7 omeprazole (PriLOSEC) 40 mg capsule Take 1 capsule (40 mg total) by mouth daily. 30 capsule 08/01/2017 8 pen needle, diabetic (BD ULTRA-FINE MINI PEN NEEDLE) 31 gauge x 3/16 needle use one needle daily with Forteo Pen 06/30/2015 0 pregabalin (LYRICA) 75 mg capsule take 1 capsule by oral route 2 times every day 0 0 03/07/2015 0 teriparatide (FORTEO) 20 mcg/dose - 600 mcg/2.4 mL injection inject 0.08 milliliter by subcutaneous route every day into the thigh or abdominal wall 0 0 08/04/2015 8 teriparatide (FORTEO) 20 mcg/dose - 600 mcg/2.4 mL injection INJECT 20mcg SUBCUTANEOUSLY ONCE DAILY. 06/30/2015 8 documented as of this encounter Discharge Disposition Disposition Code Departure Means Destination Discharge to home or self care documented in this encounter H&P Notes * Miscellaneous, Not In File - 08/01/2017 5:00 AM CDT HISTORY AND PHYSICAL Patient: DALE BETANCUR Account: [id number] Room No: 2628-01 : 1965 Patient Type: SDS Attend.: Cecilia Loja M.D. Admit Date: 08/01/2017 Dict.: Cecilia Loja M.D. Disch. Date: PCP Dr. Mendoza Parker CHIEF COMPLAINT Chest pain. HPI This is a 51-year-old female with a past medical history of hypertension and tobacco use coming in with chest pain. Per patient and daughter at bedside, patient awoke this morning due to chest pressure. She states that the pain was constant and worsened throughout the day. It was associated with nausea and a dull headache. Her blood pressure in the morning was 189/107. Patient ended up going to her PCP's office, Dr. Parker, and while she was there her chest pain started radiating to her jaw and back. She denies any tearing pain. She also had associated palpitations. Her blood pressure at Dr. Parker's office was 152/100. The patient was advised to come to the ER for further care. Of note, patient states at home she took a bath which she states appeared to help with some of her pain. In the ER, patient received aspirin and sublingual nitro which resolved her pain. The patient also received metoprolol. Daughter noted that the patient developed some shortness of breath while she was eating in the ER. Of note, patient states over the years she has had 2 other episodes of chest pain similar to this. She never saw a doctor for it and never had any prior workup. She never told her PCP about it either. Currently, patient complains of being tired with a slight headache. PAST MEDICAL HISTORY Hypertension, tobacco use, abdominal hernia, osteoporosis, fibromyalgia, depression, PTSD. PAST SURGICAL HISTORY x3, appendectomy, cholecystectomy, hysterectomy with bilateral salpingo-oophorectomy, right ankle fracture status post repair. MEDICATIONS Ambien, cyclobenzaprine, Bystolic, Cymbalta, Forteo, Linzess, Lyrica, Movantik, [place] p.r.n., Rexulti, omeprazole. ALLERGIES CIPRO CAUSES SHORTNESS OF BREATH. FLAGYL CAUSES SHORTNESS OF BREATH. THE PATIENT STATES SHE WAS ON BOTH MEDICATIONS AT THE TIME WHEN SHE DEVELOPED SYMPTOMS AND IS UNSURE WHICH MEDICATION CAUSED HER SYMPTOMS. CODEINE CAUSES NAUSEA AND ITCHING. SOCIAL HISTORY Patient is , has 3 children. Lives with her and son. She smokes on and off, a total of half a pack per day for 15 years. She has approximately 8 drinks per week. Denies any illicit drug use. FAMILY HISTORY The patient is adopted but what she could obtain from her biological parents was that mom had skin and throat cancer. She is . Dad had heart disease and heart attack. Her sister had diabetes. REVIEW OF SYSTEMS Please see HPI for pertinent positives. Otherwise, patient states she does have some shortness of breath with movement sometimes and this is on and off. She suspects that sometimes she may be holding her breath. She occasionally has tingling in her hands because they fall asleep. Her energy and appetite are stable with no changes in her weight. Otherwise, she denies any fevers, chills, lightheadedness, changes in vision, LOC, runny nose, stuffy nose, sore throat, cough, vomiting, black or bloody stools, dysuria, hematuria, edema, or focal deficits. PHYSICAL EXAM Vital Signs: Temperature 97.8, blood pressure 149/78, heart rate 75, respiratory rate 18, SpO2 95% on room air. General: Patient is in no acute distress. She is A and O x4. HEENT: No conjunctival pallor. Moist mucous membranes. Neuro: PERRL, EOMI, symmetric motor strength bilaterally with no focal deficits. CVS: S1, S2. Regular rate and rhythm. Lungs: Clear to auscultation bilaterally. Abdomen: Positive bowel sounds. Soft, nontender. Extremities: No lower extremity edema or tenderness to palpation. The patient has symmetric radial and DP pulses. Skin: Warm and dry. LABS WBC 11.44, hemoglobin 14.9, platelets 330, sodium 141, potassium 4.6, magnesium 2.2, bicarb 26, creatinine 0.65, glucose 109, troponin less than 0.01 x1. EKG showed some nonspecific T-wave changes in the precordial leads. There is no ST depression or elevation. IMAGING Chest x-ray showed no active disease. ASSESSMENT AND PLAN 1. Chest pain secondary to hypertensive urgency versus ACS. Patient has risk factors including hypertension and tobacco use. Her pain did resolve with nitroglycerin. Cardiology has been consulted for evaluating this patient. An echo will be ordered. We will continue to trend troponins. We will start patient on baby aspirin and Lipitor and will continue to monitor her blood pressures. Currently, patient has no chest pain. 2. Hypertension, currently is improved from prior. Will resume patient's Bystolic. We will continue to monitor and add more medications if needed. 3. Tobacco use. The patient does not want a nicotine patch. 4. History of osteoporosis. Will resume patient's Forteo. 5. History of depression. Will resume patient's home medications. 6. History of fibromyalgia. Will resume her home medications. 7. Diet: NPO. 8. DVT prophylaxis: Lovenox. 9. Code status: Patient is code 1. She does not have an advance directive or POA. 10. Estimated length of stay: Greater than 2 midnights. Electronically Authenticated and Edited by: Cecilia Loja MD On 08/02/2017 07:38 PM CDT Cecilia Loja M.D. FREDDIE/maral TD: 08/02/2017 02:50 documented in this encounter Consult Notes * Miscellaneous, Not In File - 08/02/2017 5:00 AM CDT CONSULTATION REPORT Patient: DALE BETANCUR Service Date: 08/02/2017 Account: [id number] Room No: 2628-01 : 1965 Patient Type: SDS Attend.: Cecilia Loja M.D. Admit Date: 08/01/2017 Consult: Tashi Rehman M.D. F.A.C.C. Disch. Date: 08/03/2017 CARDIOLOGY CONSULT NOTE CONSULTING PHYSICIAN Dr. Tashi Rehman REASON FOR CONSULTATION Chest pain -- rule out VT. Assess need for stress test or cardiac catheterization. HISTORY OF PRESENT ILLNESS Dale Betancur is a pleasant 51-year-old female who has numerous medical problems. She has a lot of psychiatric issues and also has a long history of fibromyalgia. She has pain pretty much all over her body and also she has bilateral temporomandibular jaw pain. She came in basically with a pressure-like sensation in the upper chest with radiation to the jaw on both sides. She was admitted and was ruled out for an VT by 3 sets of cardiac enzymes. She underwent a stress test earlier today. Unfortunately, she could not get her heart rate up. She did not have any chest discomfort on the treadmill. The question is whether we should just go for a heart catheterization or perhaps do a pharmacologic nuclear stress test tomorrow. The patient does smoke and does have hypertension as a risk factor. Weight is also somewhat of an issue. MEDICAL HISTORY 1. Obstructive sleep apnea. 2. Irritable bowel syndrome. 3. Fibromyalgia. PHYSICAL EXAM Blood pressure 128/81, pulse of 75 regular sinus rhythm. General: She is a moderately overweight, darkly complexioned female who is very quiet. She denies any chest pain. No chest wall tenderness to palpation. Lungs: Good and equal airway exchange bilaterally. They are clear to auscultation bilaterally. Heart: Regular without any murmurs, gallops, or rubs. Extremities: No pedal edema. No focal weakness. EKG Sinus rhythm with diffuse T-wave changes. ASSESSMENT AND PLAN This is a 51-year-old female with several risk factors for coronary artery disease including: Obesity, hypertension, dyslipidemia, and also ongoing smoking history. The patient is not typical in that it woke her up from sleep. However, patient's pain was responsive to nitroglycerin. There was concern whether we should just go ahead and do the cardiac catheterization because of her underlying comorbidities. I offered her cardiac catheterization. However, the patient, the daughter and the discussed the issues, and they would like a pharmacologic stress test instead. Will do that one tomorrow. Should the pharmacologic stress to be abnormal, cardiac catheterization will still be able to be done tomorrow afternoon. Will follow closely with you. Electronically Authenticated and Edited by: Tashi Rehman MD On 08/05/2017 05:21 PM CDT Dahiana Grigsby F.A.C.C./maral TD: 08/02/2017 18:44 Mendoza Parker M.D. Mendoza Parker M.D. documented in this encounter Plan of Treatment Not on file documented as of this encounter Procedures Procedure Name Priority Date/Time Associated Diagnosis Comments NM MPI SPECT (REST AND/OR STRESS) MULTIPLE STUDIES Routine 08/03/2017 2:04 PM CDT STRESS ECHO EXERCISE W NO DOPPLER/CF WO CONTRAST Routine 08/03/2017 1:55 PM CDT DISCHARGE LABORATORY CUMULATIVE REPORT 08/03/2017 12:00 AM CDT TRANSESOPHAGEAL ECHO (BEAU) W DOPPLER/CF WO CONTRAST Routine 08/02/2017 8:06 PM CDT D-DIMER, QUANTITATIVE Routine 08/02/2017 10:28 AM CDT TROPONIN T Today 08/02/2017 7:15 AM CDT EGFR Routine 08/02/2017 4:36 AM CDT DIFFERENTIAL AUTO Routine 08/02/2017 4:3 6 AM CDT CBC WITH AUTO DIFFERENTIAL Routine 08/02 4:36 AM CDT LIPID PANEL Routine 08/02/2017 4:36 AM CDT BASIC METABOLIC PANEL Routine 08/02/2017 4:36 AM CDT TROPONIN T Today 08/02/2017 12:49 AM CDT XR CHEST PORTABLE Routine 08/01/2017 10: 59 PM CDT EGFR STAT 08/01/2017 5:00 PM CDT DIFFERENTIAL AUTO STAT 08/01/2017 5:0 0 PM CDT PRO B-TYPE NATRIURETIC PEPTIDE STAT 08/01/2017 5:00 PM CDT CBC WITH AUTO DIFFERENTIAL STAT 08/01 5:00 PM CDT APTT STAT 08/01/2017 5:00 PM CDT PROTIME-INR STAT 08/01/2017 5:00 PM CDT TROPONIN T STAT 08/01/2017 5:00 PM CDT MAGNESIUM STAT 08/01/2017 5:00 PM CDT COMPREHENSIVE METABOLIC PANEL STAT 08/01/2017 5:00 PM CDT ELECTROCARDIOGRAPHY (ECG) 08/01/2017 documented in this encounter Results * NM MPI SPECT (Rest and/or Stress) Multiple Studies (08/03/2017 2:04 PM CDT) Anatomical Region Laterality Modality Body N/A Nuclear Medicine 08/03/2017 2:04 PM CDT Narrative 08/03/2017 2:04 PM CDT NM Myocard Perf Rest/Stress ??Acc#: ??[id number] DATE OF EXAM: ??Aug 03 2017 ?? Myocardial SPECT with perfusion. HISTORY: Chest pain. ??Risk factors include family history, obesity, hypertension, and tobacco use COMPARISON: None TECHNIQUE: 10.4 mCi of Tc 99m Myoview was injected intravenously followed by rest SPECT imaging. ??The patient received 0.4 mg Lexiscan to induce stress. At stress, 30.6 mCi of Tc 99m Myoview was injected intravenously followed by gated myocardial SPECT imaging. The electrocardiographic results of this test are interpreted by cardiology. FINDINGS: Gated myocardial perfusion study on cineangiographic display shows a normal size left ventricle compared with the right ventricle. Ejection fraction is 67%. Wall motion and contractility are normal. ?? Stress images displayed in short axis, vertical axis and horizontal axis show no perfusion defects. No change of perfusion pattern is seen on rest images to indicate stress-induced ischemia. IMPRESSION: No evidence of stress induced reversible defect to suggest ischemia. Normal ejection fraction of 67%. Electronically signed by: Vonda Bender M.D. Interpreting Physician: ??VONDA BENDER M.D. ??Read on: ??Aug 03 2017 ?? 9:28A Transcribed by: ??PSC ??On: Aug 03 2017 ??9:26A Approved Electronically by: ??VONDA BENDER M.D. ??on: ??Aug 03 2017 ?? 9:26A Ordering DR: DR TASHI REHMAN Attending DR: CECILIA LOJA Attending: ??CECILIA LOJA Requesting: ??DR TASHI REHMAN Requesting Fax: ??[phone] Attending Fax: ??-- Attending ID: ??[id number] Requesting ID: ??[id number] Report To 1 ID: ??[id number] Report To 1 Name: ??CECILIA LOJA Report To 1 FAX: ??-- NextGen Order #: ?? Procedure Note Miscellaneous, Not In File / Provider, MD Kip - 08/03/2017 NM Myocard Perf Rest/Stress Acc#: [id number] DATE OF EXAM: Aug 03 2017 Myocardial SPECT with perfusion. HISTORY: Chest pain. Risk factors include family history, obesity, hypertension, and tobacco use COMPARISON: None TECHNIQUE: 10.4 mCi of Tc 99m Myoview was injected intravenously followed by rest SPECT imaging. The patient received 0.4 mg Lexiscan to induce stress. At stress, 30.6 mCi of Tc 99m Myoview was injected intravenously followed by gated myocardial SPECT imaging. The electrocardiographic results of this test are interpreted by cardiology. FINDINGS: Gated myocardial perfusion study on cineangiographic display shows a normal size left ventricle compared with the right ventricle. Ejection fraction is 67%. Wall motion and contractility are normal. Stress images displayed in short axis, vertical axis and horizontal axis show no perfusion defects. No change of perfusion pattern is seen on rest images to indicate stress-induced ischemia. IMPRESSION: No evidence of stress induced reversible defect to suggest ischemia. Normal ejection fraction of 67%. Electronically signed by: Vonda Bender M.D. Interpreting Physician: VONDA BENDER M.D. Read on: Aug 03 2017 9:28A Transcribed by: PSC On: Aug 03 2017 9:26A Approved Electronically by: VONDA BENDER M.D. on: Aug 03 2017 9:26A Ordering DR: DR TASHI REHMAN Attending DR: CECILIA LOJA Attending: CECILIA LOJA Requesting: DR TASHI REHMAN Requesting Attending Fax: -- Attending ID: [id number] Requesting ID: [id number] Report To 1 ID: [id number] Report To 1 Name: CECILIA LOJA Report To 1 FAX: -- NextGen Order #: us Tashi Rehman MD IMG NM PROCEDURES Final Resul t * Echo Exercise Stress No Doppler/CF WO Contrast (08/03/2017 1:55 PM CDT) Anatomical Region Laterality Modality Ultrasound 08/03/2017 1:55 PM CDT Narrative 08/03/2017 1:55 PM CDT STRESS TEST LEXISCAN ??Acc#: ??[id number] DATE OF EXAM: ??Aug 03 2017 ?? CLINICAL HISTORY: ? Angina. ?? RESULT: LEXISCAN STRESS TEST REPORT INDICATION: Dale Betancur is a 51 year old female with angina, neck pain and back pain. ??Risk factors include: family history of coronary artery disease, obesity, hypertension and also ongoing smoking history. ?? Resting ECG shows normal sinus rhythm at 73 beats per minute with a leftward axis. ??Nonspecific T-wave changes. ?? PROCEDURE: ??The patient underwent intravenous regadenoson followed by intravenous Cardiolite. There were no dysrhythmias during the infusion or in recovery. There was no chest pain. There were no EKG changes noted to suggest ischemia. Blood pressure was 147/93 at rest and it was 147/77 in recovery. ??No significant pauses. IMPRESSION: THUS, NUCLEAR IMAGES WILL BE AN IMPORTANT COMPONENT AND THIS PORTION WILL BE INTERPRETED BY A RADIOLOGIST LATER TODAY. ? Interpreting Physician: ??DR TASHI REHMAN M.D. ??Read on: ??Aug 03 2017 ?? 2:16P Transcribed by: ??mrr ??On: Aug 03 2017 ??2:16P Approved Electronically by: ??GENNA Talbot, DR AKINS ??on: ??Aug 03 2017 ?? 3:45P Ordering DR: DR TASHI REHMAN Attending DR: CECILIA LOJA Attending: ??CECILIA LOJA Requesting: ??DR TASHI REHMAN Requesting Fax: ??[phone] Attending Fax: ??-- Attending ID: ??[id number] Requesting ID: ??[id number] Report To 1 ID: ??[id number] Report To 1 Name: ??CECILIA LOJA Report To 1 FAX: ??-- NextGen Order #: ?? Procedure Note Miscellaneous, Not In File - 08/03/2017 STRESS TEST [employer] Acc#: [id number] DATE OF EXAM: Aug 03 2017 CLINICAL HISTORY: Angina. RESULT: LEXISCAN STRESS TEST REPORT INDICATION: Dale Betancur is a 51 year old female with angina, neck pain and back pain. Risk factors include: family history of coronary artery disease, obesity, hypertension and also ongoing smoking history. Resting ECG shows normal sinus rhythm at 73 beats per minute with a leftward axis. Nonspecific T-wave changes. PROCEDURE: The patient underwent intravenous regadenoson followed by intravenous Cardiolite. There were no dysrhythmias during the infusion or in recovery. There was no chest pain. There were no EKG changes noted to suggest ischemia. Blood pressure was 147/93 at rest and it was 147/77 in recovery. No significant pauses. IMPRESSION: THUS, NUCLEAR IMAGES WILL BE AN IMPORTANT COMPONENT AND THIS PORTION WILL BE INTERPRETED BY A RADIOLOGIST LATER TODAY. Interpreting Physician: DR TASHI REHMAN M.D. Read on: Aug 03 2017 2:16P Transcribed by: alex On: Aug 03 2017 2:16P Approved Electronically by: DR TASHI REHMAN M.D. on: Aug 03 2017 3:45P Ordering DR: DR TASHI REHMAN Attending DR: CECILIA LOJA Attending: CECILIA LOJA Requesting: DR TASHI REHMAN Requesting Attending Fax: -- Attending ID: [id number] Requesting ID: [id number] Report To 1 ID: [id number] Report To 1 Name: CECILIA LOJA Report To 1 FAX: -- NextGen Order #: Tashi Rehman MD CV ECHO PROCEDURES Final Resu lt * DISCHARGE LABORATORY CUMULATIVE REPORT (08/03/2017 12:00 AM CDT) Narrative 08/03/2017 12:00 AM CDT Ordered by an unspecified provider. us Historical Provider LAB BLOOD ORDERABLES Celia desai Result * Transesophageal Echocardiogram (BEAU) Complete (08/02/2017 8:06 PM CDT) Anatomical Region Laterality Modality Ultrasound 08/02/2017 8:06 PM CDT Narrative 08/02/2017 8:06 PM CDT ECHO CMPLT W DOPP WO CONT ??Acc#: ??[id number] DATE OF EXAM: ??Aug 02 2017 ?? CLINICAL HISTORY: ? Angina. ?? RESULT: ECHOCARDIOGRAM REPORT PROCEDURE: ??2-D, M-mode and Doppler echocardiogram was performed. ??This is a technically adequate study. There is good LV function with no regional wall motion abnormalities. ?? Ejection fraction is estimated at 60-65%. ??No LV mural thrombus or valvular vegetations. ??Mitral, tricuspid, pulmonic, and aortic valve leaflets appear to be normal. Doppler echocardiogram reveals an aortic valve velocity of 1.2m/sec and a pulmonic valve velocity of 0.9m/sec. ??There is pulmonic insufficiency, trivial mitral regurgitation and trivial tricuspid regurgitation. ?? IMPRESSION: 1. NORMAL GLOBAL LV FUNCTION WITH ESTIMATED EJECTION FRACTION OF 60-65%. 2. NO LV MURAL THROMBUS OR VALVULAR VEGETATIONS. 3. MITRAL REGURGITATION, TRIVIAL. 4. TRICUSPID REGURGITATION, TRIVIAL. 5. PULMONIC INSUFFICIENCY. Interpreting Physician: ??DR TASHI REHMAN M.D. ??Read on: ??Aug 03 2017 11:24A Transcribed by: ??mrr ??On: Aug 03 2017 ??2:21P Approved Electronically by: ??DR TASHI REHMAN M.D. ??on: ??Aug 03 2017 ?? 3:45P Ordering DR: CECILIA LOJA Attending DR: CECILIA LOJA Attending: ??CECILIA LOJA Requesting: ??CECILIA LOJA Requesting Fax: ??-- Attending Fax: ??-- Attending ID: ??[id number] Requesting ID: ??[id number] Report To 1 ID: ??[id number] Report To 1 Name: ??CECILIA LOJA Report To 1 FAX: ??-- NextGen Order #: ?? Procedure Note Miscellaneous, Not In File - 08/09/2017 ECHO CMPLT W DOPP WO CONT Acc#: [id number] DATE OF EXAM: Aug 02 2017 CLINICAL HISTORY: Angina. RESULT: ECHOCARDIOGRAM REPORT PROCEDURE: 2-D, M-mode and Doppler echocardiogram was performed. This is a technically adequate study. There is good LV function with no regional wall motion abnormalities. Ejection fraction is estimated at 60-65%. No LV mural thrombus or valvular vegetations. Mitral, tricuspid, pulmonic, and aortic valve leaflets appear to be normal. Doppler echocardiogram reveals an aortic valve velocity of 1.2m/sec and a pulmonic valve velocity of 0.9m/sec. There is pulmonic insufficiency, trivial mitral regurgitation and trivial tricuspid regurgitation. IMPRESSION: 1. NORMAL GLOBAL LV FUNCTION WITH ESTIMATED EJECTION FRACTION OF 60-65%. 2. NO LV MURAL THROMBUS OR VALVULAR VEGETATIONS. 3. MITRAL REGURGITATION, TRIVIAL. 4. TRICUSPID REGURGITATION, TRIVIAL. 5. PULMONIC INSUFFICIENCY. Interpreting Physician: DR TASHI REHMAN M.D. Read on: Aug 03 2017 11:24A Transcribed by: alex On: Aug 03 2017 2:21P Approved Electronically by: GENNA Talbot, DR AKINS on: Aug 03 2017 3:45P Ordering DR: CECILIA LOJA Attending DR: CECILIA LOJA Attending: CECILIA LOJA Requesting: CECILIA LOJA Requesting Fax: -- Attending Fax: -- Attending ID: [id number] Requesting ID: [id number] Report To 1 ID: [id number] Report To 1 Name: CECILIA LOJA Report To 1 FAX: -- NextGen Order #: us Not In File Miscellaneous CV ECHO PROCEDURES Chi rayna Result - Final * D-dimer, quantitative (08/02/2017 10:28 AM CDT) D-dimer 229 150 - 230 ng/mL D-DU [facility] ([place]) Comment: Interpretive Data This D-dimer test is approved by the FDA to exclude suspected PE and DVT in outpatients when the result is <230 ng/mL in conjunction with a pre-test probability score of low or moderate using the Wells criteria. Current Interpretive Data was last revised on 2015. Blood specimen (specimen) 08/02/2017 10:28 AM CDT 08/02/2017 10:58 AM CDT Sonya Inman MD LAB BLOOD ORDERABLES Fin al Result Performing Organization Address [facility] de Phone Number [facility] ([place]) 1 [facility] [place] [address] * Troponin T (08/02/2017 7:15 AM CDT) Troponin T <0.01 0.00 - 0.06 ng/mL [facility] ([place]) Comment: Interpretive Data Troponin table: ? Negative ? 0.00-0.06 ng/ml ? Indeterminate ?0.07-0.10 ng/ml ? Consistent with Myocardial Injury ?Greater than 0.10 ng/ml ?? Current interpretive data was last revised on 2015 Blood specimen (specimen) 08/02/2017 7:15 AM CDT 08/02/2017 7:16 AM CDT Pablo Greene LAB BLOOD ORDERABLES Final Resul t Performing Organization Address [facility] de Phone Number [facility] ([place]) 1 [facility] [place] [address] * (ABNORMAL) Lipid panel (08/02/2017 4:36 AM CDT) Cholesterol 206(H) 40 - 199 mg/dL [facility] ([place]) Comment: Interpretive Data Desirable: ??Less than 200 mg/dl ? Borderline High: ?200 - 239 mg/dl ? High: ??Greater than ?? 239 mg/dl Current interpretive data was last revised on 2015. Triglycerides 318.0(H) <=150.0 mg/dL [facility] ([place]) Comment: Interpretive Data Normal: ? Less than 150 mg/dl Borderline high: ??150-199 mg/dl ?? High: ? 200-499 mg/dl ? Very high: ??Greater than or equal to 500 mg/dl Current interpretive data was last revised on 2017. HDL 38(L) 40 - 60 mg/dL [facility] ([place]) Comment: Interpretive Data Low HDL Cholesterol: ? Less than 40 mg/dl Normal HDL Cholesterol: ??40-60 mg/dl High HDL Cholesterol: ?Greater than 60 mg/dl Current interpretive data was last revised on 2015. LDL, calculated 104 mg/dL [facility] ([place]) Comment: Interpretive Data Optimal ? Less than 100 mg/dL ? Near optimal/Above optimal ??100 - 129 mg/dL ? Borderline high ? 130 - 159 mg/dL ? High ?160 - 189 mg/dL ? Very high ? Greater than or = 190 mg/dL ? LDL values are not valid when the total Triglyceride is greater than 300 mg/dL. Current interpretive data was last revised on 2015. Non-HDL Cholesterol 168 mg/dL [facility] ([place]) Comment: Interpretive Data Optimal ? Less than 130 mg/dL Low Risk ?130 - 159 mg/dL Moderate Risk ? 160 - 189 mg/dL High Risk ? Greater than or equal to 190 mg/dL Current interpretive data was last revised on 2015. Blood specimen (specimen) 08/02/2017 4:36 AM CDT 08/03/2017 12:47 PM CDT Narrative [facility] ([place]) - 08/03/2017 1:10 PM CDT PLEASE USE BLOOD DRAWN THIS MORNING OR YESTERDAY MORNING us Tashi Rehman MD LAB BLOOD ORDERABLES Final Re sult [facility] ([place]) 1 [facility] Department [place] [address] * eGFR (08/02/2017 4:36 AM CDT) eGFR >60 mL/min/1.7 3 m2 [facility] ([place]) Comment: Interpretive Data Reference Interval Normal ?>/= 90 mL/min/1.73m2 Mildly decreased* ? 60 - 89 mL/min/1.73m2 Mildly to moderately decreased ?45 - 59 mL/min/1.73m2 Moderately to severely decreased ??30 - 44 mL/min/1.73m2 Severely decreased ?15 - 29 mL/min/1.73m2 Kidney Failure ?< 15 ??mL/min/1.73m2 *Relative to young adult level If -[place] multiply value by 1.16. Estimated glomerular filtration [...] was last reviewed 2016. Blood specimen (specimen) 08/02/2017 4:36 AM CDT 08/02/2017 4:42 AM CDT Cecilia Loja MD LAB BLOOD ORDERABLES Final Resul t [facility] ([place]) 1 [facility] Department [place] [address] * (ABNORMAL) Basic metabolic panel (08/02/2017 4:36 AM CDT) Sodium 141 135 - 145 mmol/L [facility] ([place]) Potassium 4.2 3.5 - 5.1 mmol/L [facility] ([place]) Chloride 105 97 - 110 mmol/L [facility] ([place]) CO2 26 22 - 32 mmol/L [facility] ([place]) Anion gap 10 8 - 16 mmol/L [facility] ([place]) Glucose 104 70 - 199 mg/dL [facility] ([place]) Comment: Interpretive Data Note:The glucose is assumed non fasting Fastin-99 mg/dL Random: ??70-199 mg/dL Either a fasting glucose > 126 mg/dL or a random glucose > 200 mg/dL plus symptoms is diagnostic of diabetes when confirmed on another day. Fasting values > 100 mg/dL but < 125 mg/dL are diagnostic of impaired fasting glucose. Current interpretive data was last revised on 2015. BUN 19.6 8.0 - 25.0 mg/dL [facility] ([place]) Creatinine 0.63 0.60 - 1.10 mg/dL [facility] ([place]) Calcium 8.6 8.6 - 10.2 mg/dL [facility] ([place]) BUN/creat ratio 31(H) 10 - 20 [facility] ([place]) Blood specimen (specimen) 08/02/2017 4:36 AM CDT 08/02/2017 4:42 AM CDT Cecilia Loja MD LAB BLOOD ORDERABLES Final Resul t [facility] ([place]) 1 [facility] [employer] [place] [address] * Differential, auto (08/02/2017 4:36 AM CDT) Neutrophil pct 54.0 44.0 - 80.0 % [facility] ([place]) Imm gran pct 0.2 0.0 - 1.0 % [facility] ([place]) Lymphocyte pct 35.8 13.0 - 44.0 % [facility] ([place]) Monocyte pct 6.0 2.0 - 11.0 % [facility] ([place]) Eosinophil pct 3.5 0.0 - 6.0 % [facility] ([place]) Basophil pct 0.5 0.0 - 3.0 % [facility] ([place]) Neutrophil abs 5.00 1.60 - 7.00 K/cumm [facility] ([place]) Imm gran abs 0.02 0.00 - 0.20 K/cumm [facility] ([place]) Lymphocyte abs 3.32 0.50 - 4.30 K/cumm [facility] ([place]) Monocyte abs 0.56 0.10 - 1.00 K/cumm [facility] ([place]) Eosinophil abs 0.32 0.00 - 0.60 K/cumm [facility] ([place]) Basophil abs 0.05 0.00 - 0.30 K/cumm [facility] ([place]) Blood specimen (specimen) 08/02/2017 4:36 AM CDT 08/02/2017 4:42 AM CDT us Cecilia Loja MD LAB BLOOD ORDERABLES Final Resul t [facility] ([place]) 1 [facility] [employer] [place] [address] * CBC with auto differential (08/02/2017 4:36 AM CDT) WBC 9.27 3.80 - 9.80 K/cumm [facility] ([place]) RBC 4.39 3.90 - 5.00 M/cumm [facility] ([place]) Hgb 13.1 12.1 - 15.1 g/dL [facility] ([place]) Hct 38.9 36.1 - 44.3 % [facility] ([place]) MCV 88.6 80.0 - 100.0 fL [facility] ([place]) MCH 29.8 26.7 - 33.7 pg [facility] ([place]) MCHC 33.7 32.7 - 36.0 g/dL [facility] ([place]) RDW CV 13.8 11.5 - 14.6 % [facility] ([place]) Plt 267 140 - 440 K/cumm [facility] ([place]) MPV 9.7 8.0 - 12.0 fL [facility] ([place]) NRBC 0.0 0.0 - 0.0 % [facility] ([place]) NRBC abs 0.00 0.00 - 0.00 K/cumm [facility] ([place]) Blood specimen (specimen) 08/02/2017 4:36 AM CDT 08/02/2017 4:42 AM CDT us Cecilia Loja MD LAB BLOOD ORDERABLES Final Resul t [facility] ([place]) 1 [facility] Department [place] [address] * Troponin T (08/02/2017 12:49 AM CDT) Troponin T <0.01 0.00 - 0.06 ng/mL [facility] ([place]) Comment: Interpretive Data Troponin table: ? Negative ? 0.00-0.06 ng/ml ? Indeterminate ?0.07-0.10 ng/ml ? Consistent with Myocardial Injury ?Greater than 0.10 ng/ml ?? Current interpretive data was last revised on 2015 Blood specimen (specimen) 08/02/2017 12:49 AM CDT 08/02/2017 1:00 AM CDT us Pablo Greene LAB BLOOD ORDERABLES Final Resul t [facility] ([place]) 1 [facility] Department [place] [address] * XR Chest Portable (08/01/2017 10:59 PM CDT) Anatomical Region Laterality Modality Body N/A Radiographic Krupa ging 08/01/2017 10:5 9 PM CDT Narrative 08/01/2017 10:59 PM CDT XR Chest Portable ? [id number] ??Acc#: ??[id number] DATE OF EXAM: ??Aug 01 2017 ?? XR Chest Portable ? [id number] HISTORY: Chest Pain. COMPARISON: 10/21/2016. FINDINGS: Heart size is normal. There are old granulomas calcifications within the chest. ??Lungs are clear. ??The right hemidiaphragm is elevated 2 intercostal spaces above the left as before IMPRESSION: NO ACTIVE DISEASE. Electronically signed by: Alex Baptiste M.D. Interpreting Physician: ??ALEX BAPTISTE M.D. ??Read on: ??Aug 01 2017 ??5:59P Transcribed by: ??PSC ??On: Aug 01 2017 ??5:57P Approved Electronically by: ?ALEX CARTER M.D. ??on: ??Aug 01 2017 ??5:57P Ordering DR: ?? Attending DR: PABLO GREENE Attending: ??PABLO GREENE Requesting: ??, Requesting Fax: ??-- Attending Fax: ??-- Attending ID: ??[id number] Requesting ID: ??[id number] Report To 1 ID: ??[id number] Report To 1 Name: ??PABLO GREENE Report To 1 FAX: ??-- NextGen Order #: ?? Procedure Note Miscellaneous, Not In File / Provider, MD Kip - 08/01/2017 XR Chest Portable [id number] Acc#: [id number] DATE OF EXAM: Aug 01 2017 XR Chest Portable [id number] HISTORY: Chest Pain. COMPARISON: 10/21/2016. FINDINGS: Heart size is normal. There are old granulomas calcifications within the chest. Lungs are clear. The right hemidiaphragm is elevated 2 intercostal spaces above the left as before IMPRESSION: NO ACTIVE DISEASE. Electronically signed by: Alex Baptiste M.D. Interpreting Physician: ALEX BAPTISTE M.D. Read on: Aug 01 2017 5:59P Transcribed by: [facility] On: Aug 01 2017 5:57P Approved Electronically by: ALEX BAPTISTE M.D. on: Aug 01 2017 5:57P Ordering DR: Attending DR: PABLO GREENE Attending: PABLO GREENE Requesting: , Requesting Fax: -- Attending Fax: -- Attending ID: [id number] Requesting ID: [id number] Report To 1 ID: [id number] Report To 1 Name: PABLO GREENE Report To 1 FAX: -- NextGen Order #: us Not In File Miscellaneous IMG XR PROCEDURES Celia l Result * Pro B-type natriuretic peptide (08/01/2017 5:00 PM CDT) NT-proBNP 20 10 - 150 pg/mL [facility] ([place]) Comment: Diagnosis of Congestive Heart Failure: ??Heart Failure Unlikely: All Ages ?Less than 300 pg/ml ??Heart Failure Possible: Less than 50Y ?? 300-450 pg/ml ?50-75 Y ? 300-900 pg/ml ?75-160Y ? 300-1800 pg/ml ?Heart Failure Likely: ?? Less than 50Y ?? Greater than 450 pg/ml ?50-75 Y ? Greater than 900 pg/ml ?75-160 Y ?Greater than 1,800 pg/ml ??Renal Failure: ?All Ages ?Greater than 1,200 pg/ml Current interpretive data was last revised on 2015. Blood specimen (specimen) 08/01/2017 5:00 PM CDT 08/01/2017 5:05 PM CDT us Javed Damian DO LAB BLOOD ORDERABLES Final Result [facility] ([place]) 1 [facility] Department [place] [address] * (ABNORMAL) Comprehensive metabolic panel (08/01/2017 5:00 PM CDT) Sodium 141 135 - 145 mmol/L [facility] ([place]) Potassium 4.6 3.5 - 5.1 mmol/L [facility] ([place]) Chloride 101 97 - 110 mmol/L [facility] ([place]) CO2 26 22 - 32 mmol/L [facility] ([place]) Anion gap 14 8 - 16 mmol/L [facility] ([place]) Glucose 109 70 - 199 mg/dL [facility] ([place]) Comment: Interpretive Data Note:The glucose is assumed non fasting Fastin-99 mg/dL Random: ??70-199 mg/dL Either a fasting glucose > 126 mg/dL or a random glucose > 200 mg/dL plus symptoms is diagnostic of diabetes when confirmed on another day. Fasting values > 100 mg/dL but < 125 mg/dL are diagnostic of impaired fasting glucose. Current interpretive data was last revised on 2015. BUN 11.1 8.0 - 25.0 mg/dL [facility] ([place]) Creatinine 0.65 0.60 - 1.10 mg/dL [facility] ([place]) BUN/creat ratio 17 10 - 20 [facility] ([place]) Calcium 9.4 8.6 - 10.2 mg/dL [facility] ([place]) Protein, sr 7.8 6.0 - 8.4 g/dL [facility] ([place]) Albumin 4.4 3.6 - 5.0 g/dL [facility] ([place]) Alk phos 152(H) 40 - 130 Units/L [facility] ([place]) ALT 14 5 - 45 Units/L [facility] ([place]) AST 15 10 - 40 Units/L [facility] ([place]) Bilirubin, total 0.4 <=1.2 mg/dL [facility] ([place]) Blood specimen (specimen) 08/01/2017 5:00 PM CDT 08/01/2017 5:05 PM CDT us Javed Damian DO LAB BLOOD ORDERABLES Final Result [facility] ([place]) 1 [facility] Department [place] [address] * eGFR (08/01/2017 5:00 PM CDT) eGFR >60 mL/min/1.7 3 m2 [facility] ([place]) Comment: Interpretive Data Reference Interval Normal ?>/= 90 mL/min/1.73m2 Mildly decreased* ? 60 - 89 mL/min/1.73m2 Mildly to moderately decreased ?45 - 59 mL/min/1.73m2 Moderately to severely decreased ??30 - 44 mL/min/1.73m2 Severely decreased ?15 - 29 mL/min/1.73m2 Kidney Failure ?< 15 ??mL/min/1.73m2 *Relative to young adult level If -[place] multiply value by 1.16. Estimated glomerular filtration [...] was last reviewed 2016. Blood specimen (specimen) 08/01/2017 5:00 PM CDT 08/01/2017 5:05 PM CDT Javed Damian DO LAB BLOOD ORDERABLES Final Result Performing Organization Address City/[facility] Co de Phone Number [facility] ([place]) 1 [facility] [place] [address] * Troponin T (08/01/2017 5:00 PM CDT) Pathologist [facility] Troponin T <0.01 0.00 - 0.06 ng/mL [facility] ([place]) Comment: Interpretive Data Troponin table: ? Negative ? 0.00-0.06 ng/ml ? Indeterminate ?0.07-0.10 ng/ml ? Consistent with Myocardial Injury ?Greater than 0.10 ng/ml ?? Current interpretive data was last revised on 2015 Blood specimen (specimen) 08/01/2017 5:00 PM CDT 08/01/2017 5:05 PM CDT Javed Damian DO LAB BLOOD ORDERABLES Final Result Performing Organization Address [facility] Co de Phone Number [facility] ([place]) 1 [facility] [place] [address] * Magnesium (08/01/2017 5:00 PM CDT) Pathologist [facility] Magnesium 2.2 1.6 - 2.4 mg/dL [facility] ([place]) Blood specimen (specimen) 08/01/2017 5:00 PM CDT 08/01/2017 5:05 PM CDT us Javed Damian DO LAB BLOOD ORDERABLES Final Result Performing Organization Address City/[facility] Co de Phone Number [facility] ([place]) 1 [facility] [place] [address] * Protime-INR (08/01/2017 5:00 PM CDT) PT 10.2 9.5 - 12.5 sec [facility] ([place]) INR 0.91 0.90 - 1.20 [facility] ([place]) Comment: Interpretive Data Recommended ranges for Protime INR: 2.0 - 3.0 Most indications for Warfarin therapy (e.g. Treatment of DVT, PE, bioprosthetic valve replacement, prophylaxis venous thrombosis, atrial fibrillation). 2.5 - 3.5 Mechanical mitral valve or dual mechanical mitral and Aortic valve replacement. Current Interpretive Data was last revised on 2015. Blood specimen (specimen) 08/01/2017 5:00 PM CDT 08/01/2017 5:05 PM CDT us Javed Damian DO LAB BLOOD ORDERABLES Final Result Performing Organization Address [facility] Co de Phone Number [facility] ([place]) 1 [facility] [place] [address] * aPTT (08/01/2017 5:00 PM CDT) aPTT 30.4 25.0 - 37.0 sec [facility] ([place]) Blood specimen (specimen) 08/01/2017 5:00 PM CDT 08/01/2017 5:05 PM CDT us Javed Damian DO LAB BLOOD ORDERABLES Final Result Performing Organization Address City/[facility]/ZIP Co de Phone Number [facility] ([place]) 1 [facility] [place] [address] * (ABNORMAL) CBC with auto differential (08/01/2017 5:00 PM CDT) WBC 11.44(H) 3.80 - 9.80 K/cumm [facility] ([place]) RBC 5.08(H) 3.90 - 5.00 M/cumm [facility] ([place]) Hgb 14.9 12.1 - 15.1 g/dL [facility] ([place]) Hct 44.8(H) 36.1 - 44.3 % [facility] ([place]) MCV 88.2 80.0 - 100.0 fL [facility] ([place]) MCH 29.3 26.7 - 33.7 pg [facility] ([place]) MCHC 33.3 32.7 - 36.0 g/dL [facility] ([place]) RDW CV 13.8 11.5 - 14.6 % [facility] ([place]) Plt 330 140 - 440 K/cumm [facility] ([place]) MPV 9.8 8.0 - 12.0 fL [facility] ([place]) NRBC 0.0 0.0 - 0.0 % [facility] ([place]) NRBC abs 0.00 0.00 - 0.00 K/cumm [facility] ([place]) Blood specimen (specimen) 08/01/2017 5:00 PM CDT 08/01/2017 5:05 PM CDT us Javed Damian DO LAB BLOOD ORDERABLES Final Result [facility] ([place]) 1 [facility] Department [place] [address] * (ABNORMAL) Differential, auto (08/01/2017 5:00 PM CDT) Neutrophil pct 72.8 44.0 - 80.0 % [facility] ([place]) Imm gran pct 0.4 0.0 - 1.0 % [facility] ([place]) Lymphocyte pct 20.0 13.0 - 44.0 % [facility] ([place]) Monocyte pct 5.1 2.0 - 11.0 % [facility] ([place]) Eosinophil pct 1.2 0.0 - 6.0 % [facility] ([place]) Basophil pct 0.5 0.0 - 3.0 % [facility] ([place]) Neutrophil abs 8.32(H) 1.60 - 7.00 K/cumm [facility] ([place]) Imm gran abs 0.05 0.00 - 0.20 K/cumm [facility] ([place]) Lymphocyte abs 2.29 0.50 - 4.30 K/cumm [facility] ([place]) Monocyte abs 0.58 0.10 - 1.00 K/cumm [facility] ([place]) Eosinophil abs 0.14 0.00 - 0.60 K/cumm [facility] ([place]) Basophil abs 0.06 0.00 - 0.30 K/cumm [facility] ([place]) Blood specimen (specimen) 08/01/2017 5:00 PM CDT 08/01/2017 5:05 PM CDT us Javed Damian DO LAB BLOOD ORDERABLES Final Result [facility] ([place]) 1 [facility] Department [place] [address] * ELECTROCARDIOGRAPHY (ECG) (08/01/2017) us Provider Scanning ECG ORDERABLES Final Result documented in this encounter Visit Diagnoses Not on filedocumented in this encounter Care Teams [facility] Nurse Relationship Specialty Start Date End Date Mendoza Parker MD PCP - General 02/18/17 06/12/20 documented as of this encounter
--- OUTSIDE RECORDS SUMMARY | 2024-11-19 04:54 | XMS_ITS | Encounter Summary ---
Author Organization [facility] Address [address] [address] Care Team Providers Care Plate Fitter Name Role Phone Mendoza Parker MD Primary Care Provider +1- [phone] Encounter Details Date Type Department Care Team (Latest Contact Info) Description 01/18/2018 3:24 PM BATCH HEAT TREAT OPERATOR - 01/18/2018 11:59 PM BATCH HEAT TREAT OPERATOR Hospital Encounter [facility] Orthopedics and Sports Medicine [address] [place] [phone] Discharge Disposition: Discharge to home or self care Social History Tobacco Use Types Packs/Day Years Used Date Smoking Tobacco: Former Smokeless Tobacco: Former Alcohol Use Standard Drinks/Week Comments No 0 (1 standard drink = 0.6 oz pur e alcohol) Comments Unknown Sex and Gender Information Value Date Recorded Sex Assigned at Not on file Legal Sex Female 12:46 AM BATCH HEAT TREAT OPERATOR Gender Identity Not on file Sexual Orientation Not on file documented as of this encounter Medications at Time of Discharge cyclobenzaprine (FLEXERIL) 10 mg tablet Take 1 tablet (10 mg total) by mouth 3 (three) times a day as needed 10/28/2017 aspirin 81 mg tablet Take 1 tablet (81 mg total) by mouth daily. 90 tablet 1 09/02/2017 02/01/20 18 atorvastatin (LIPITOR) 20 mg tablet Take 1 tablet (20 mg total) by mouth daily. 90 tablet 1 09/02/2017 01/31/20 18 azelastine 0.15 % (205.5 mcg) spray,non-aeroso l SPRAY 1 SPRAY INTO EACH NOSTRIL TWICE A DAY 30 mL 3 12/27/2017 01/12/20 20 BYSTOLIC 20 mg tablet 01/11/2018 08/15/20 18 cholecalciferol (VITAMIN D3) 2,000 unit capsule take 1 by Oral route every day 0 0 08/02/2013 09/04/20 18 citalopram (CeleXA) 20 mg tablet take 1 tablet (20MG) by oral route every day 0 03/05/2013 01/21/20 18 citalopram (CeleXA) 40 mg tablet daily. 01/31/2012 05/11/20 18 dexamethasone (DECADRON) 1 mg tablet 12/28/2017 01/21/20 18 dexamethasone (DECADRON) 1 mg tablet TAKE 1 TABLET Once Take at 11 PM , the night before you have your lab work done 12/28/2017 05/11/20 18 docusate sodium (COLACE) 100 mg capsule take 1 capsule (100MG) by oral route every day at bedtime as needed 30 0 07/02/2016 01/21/[address] (CYMBALTA) 30 mg capsule 10/31/2017 02/07/[address] (CYMBALTA) 60 mg capsule take 1 capsule by oral route maxi day 90 0 03/14/2014 11/16/20 18 ergocalciferol (VITAMIN D) 50,000 unit capsule TAKE ONE CAPSULE ONCE A WEEK FOR 8 WEEKS 04/25/2012 11/16/20 18 estradiol (ESTRACE) 0.01 % (0.1 mg/gram) vaginal cream INSERT 1/2 TO 1 GRAM VAGINALLY 1 TO 2 TIMES PER WEEK 42.5 0 03/07/2013 10/01/20 20 gabapentin (NEURONTIN) 300 mg capsule 01/21/20 18 HYDROcodone-acet aminophen (NORCO) 5-325 mg per tabletIndication s:Pain Take 1 tablet by mouth every 6 (six) hours as needed. 0 01/01/2018 10/01/20 20 isosorbide mononitrate ER (IMDUR) 60 mg 24 hr tablet Take 1 tablet (60 mg total) by mouth daily. 90 tablet 1 09/02/2017 01/31/20 18 linaclotide (LINZESS) 290 mcg capsule take 1 capsule by oral route every day on an empty stomach at least 30 minutes before 1st meal of the day swallowing whole. 30 11 10/08/2014 09/04/20 18 omeprazole (PriLOSEC) 40 mg capsule TAKE ONE CAPSULE BY MOUTH ONCE DAILY 30 capsule 01/06/2018 05/16/20 19 pen needle, diabetic (BD ULTRA-FINE MINI PEN NEEDLE) 31 gauge x 16 needle use one needle daily with Forteo Pen 06/30/2015 10/01/20 20 pregabalin (LYRICA) 75 mg capsule take 1 capsule by oral route 2 times every day 0 0 03/07/2015 01/12/20 20 REXULTI 2 mg tablet 11/03/2017 01/21/20 18 teriparatide (FORTEO) 20 mcg/dose - 600 mcg/2.4 mL injection inject 0.08 milliliter by subcutaneous route every day into the thigh or abdominal wall 0 0 08/04/2015 01/21/20 18 teriparatide (FORTEO) 20 mcg/dose - 600 mcg/2.4 mL injection INJECT 20mcg SUBCUTANEOUSLY ONCE DAILY. 06/30/2015 09/04/20 18 documented as of this encounter Discharge Disposition Disposition Code Departure Means Destination Discharge to home or self care documented in this encounter Plan of Treatment Not on file documented as of this encounter Procedures Procedure Name Priority Date/Time Associated Diagnosis Comments XR ANKLE RIGHT 3 OR MORE VIEWS Schedule Routine, Read Routine (OP Routine) 01/18/2018 3:29 PM BATCH HEAT TREAT OPERATOR Right ankle pain, unspecified chronicity documented in this encounter Results * XR Ankle Right 3+ Vw (01/18/2018 3:29 PM BATCH HEAT TREAT OPERATOR) Anatomical Region Laterality Modality Lower Extremities, Ankle Right Radiogr aphic Imaging Narrative 01/18/2018 3:56 PM BATCH HEAT TREAT OPERATOR Synthes fibular plate in appropriate position screws in appropriate position no signs of loosening mild osteopenia well-healed fracture us Arnol Moreau MD IMG XR PROCEDURES Final Resu lt documented in this encounter Visit Diagnoses Not on filedocumented in this encounter Care Teams Plate Fitter Relationship Specialty Start Date End Date Mendoza Parker MD PCP - General 02/18/17 06/12/20 documented as of this encounter
--- OUTSIDE RECORDS SUMMARY | 2024-11-19 04:54 | XMS_ITS | Encounter Summary ---
Author Organization [facility] Address [address] [address] Care Team Providers Care Human Capital Analyst Name Role Phone Mendoza Parker MD Primary Care Provider +1- [phone] Reason for Visit * Reason Comments Post-op Encounter Details Date Type Department Care Team (Late st Contact Info) Description 02/14/2018 2:00 PM CDT Office Visit 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 Gender Identity Not on file Sexual Orientation Not on file documented as of this encounter Last Filed Vital Signs Vital Sign Reading Time Taken Comments Blood Pressure 128/88 02/14/2018 2:09 PM CDT Pulse 81 02/14/2018 2:09 PM CDT Temperature - - Respiratory Rate - - Oxygen Saturation - - Inhaled Oxygen Concentration - - Weight 78 kg (172 lb) 02/14/2018 2:09 PM CDT Height 152.4 cm (5') 02/14/2018 2:09 PM CDT Body Mass Index 33.59 02/14/2018 2:09 PM CDT documented in this encounter Progress Notes * Richardson Shields PA - 02/14/2018 2:00 PM CDT Images from the original note [...] her tall Cam walker boot. She has mild discomfort with weight-bearing and range of motion. Operative Report ?? SURGEON: Arnol Moreau MD ?? SURGICAL TEAM: Surgeon(s) and Role: * Arnol Moreau MD - Primary ?? DATE OF SURGERY : 01/31/2018 ?? PREOPERATIVE DIAGNOSIS: See preoperative H and P POSTOPERATIVE DIAGNOSIS: Post-op Diagnosis * Painful orthopaedic hardware (CMS/HCC) [T84.84XA] * Right ankle pain, unspecified chronicity [M25.571] ?? PROCEDURE: right ankle hardware removal, arthroscopy ankle, debridement, limited (R) ? ANESTHESIA: General ?? PRATIMA: Keysha ? IMPLANTS: ?? Implant Name Type Inv. Item Serial No. Asl Interpreter Lot No. [id number] No. Used FILLER BONE VOID NORIAN CALCIUM PHOSPHATE FIBER 3 ML DRILLABLE INJECT REINFORCED BIORESORBABLE BIOCOMPATIBLE ISOTHERMIC STERILE - [id number] FILLER BONE VOID NORIAN CALCIUM PHOSPHATE FIBER 3 ML DRILLABLE INJECT REINFORCED BIORESORBABLE BIOCOMPATIBLE ISOTHERMIC STERILE [employer] [id number] Right 1 ? OPERATIVE DETAILS ? Estimated Blood Loss: No blood loss documented. ? Operation in detail: Patient was prepped and draped in standard sterile technique tray was placed on her thigh right legwas placed in an ankle arthroscopy leg shabazz. Previous lateral incision was marked the superficialperoneal nerve was identified and marked anterior medial and lateral portals were marked the lower extremities exsanguinated and tourniquet was inflated to 275. ?? The ankles placed traction for approximately 20 minutes spinal needles placed and injected in the ankle joint 4 mm scope was placed significant synovitis was noted along with a focal cartilage defectin the talus and a kissing lesion on the tibia a shaver was used to debride from the lateral portalalong with scar tissue at the tibiotalar joint additional scar and debris was debrided at the tib-fib joint switching stick was replaced viewing from the lateral portal working from the medial portalchondroplasty was completed on the lesion additional scar tissue was debrided medially and anteriorly. Suction was used with arthroscopic fluid and attention was turned to the hardware. ?? Skin incision was made Bovie and blade was used to dissect the periosteum and scar tissue around the fibular plate bone on growth of the plate was noted this was removed with a curette screws were loosened proximally and distally all had excellent fixation an osteotome was then used to gently remove the fibular plate. The wound was irrigated with ice tea fracture was used to debride additional periosteum the wound was thoroughly irrigated nor and was used to back fill the previous drill holes and the wound was closed in standard fashion cast padding Tristan was placed the patient extubated taken recovery room stable condition. Needle count sponge counts instrument counts correct in the case. ?? Patient will be weight-bearing as tolerated in her boot that she has at home for the next 1-2 weeksshe will follow up in 2 weeks for wound check and return to her normal shoe wear at that time. ?? Complications: None ?? Condition on Discharge from the operating room was stable ?? Arnol Moreau MD ?? Date: 01/31/2018 Time: 2:41 PM Pain Assessment Pain Assessment: 0-10 Pain Score: 3 Pain Location: Ankle Pain Orientation: Right Pain Descriptors: Dull Clinical Progression: Gradually improving Aggravating Factors: Walking Patient's Stated Pain Goal: No pain Pain Interventions: Medication (See MAR) MEDICATIONS She has a current medication list which includes the following prescription(s): ascorbic acid, aspirin, atorvastatin, azelastine, bystolic, vitamin d3, cyclobenzaprine, cymbalta, estrace, hydrocodone-acetaminophen, isosorbide mononitrate er, linzess, lubiprostone, mmtphvgz-sjjniumts-pxgpjfgxfmung, o meprazole, lyrica, and zolpidem. REVIEW OF SYSTEMS Review of Systems Objective PHYSICAL EXAM BP 128/88 Pulse 81 Ht 152.4 cm (5') Wt 78 kg (172 lb) BMI 33.59 kg/m?? Ortho Exam Examination of the right ankle shows no gross deformity or swelling. There is no erythema or increased warmth. There are healing incisions over the distal fibula with retained subcuticular sutures. There is no significant devon- incisional erythema and no drainage. AROM is limited by devon-incisional d iscomfort. Neurovascular status is intact with capillary refill in the digits less than 3 sec and sensation intact to light touch in the foot. Dorsalis pedis and posterior tibialis pulses are intact and 1+. REVIEW OF X-RAYS/STUDIES/LABS XR Ankle Right 3+ Vw Interpretation of x-rays: Three views of the right ankle taken today in the office demonstrate, in my opinion, no acute bony abnormality, fracture or dislocation. Previously retained side plate and screws from the distal fibula have been removed. The ankle mortise appears congruent with symmetricalclear space surrounding the talus. Assessment/Plan Shivani was seen today for post-op. Diagnoses and all orders for this visit: Orthopedic aftercare - XR Ankle Right 3+ Vw Painful orthopaedic hardware (CMS/HCC) S/P hardware removal Right ankle pain, unspecified chronicity Status post open reduction with internal fixation (ORIF) of fracture of ankle PLAN The exposed suture ends were trimmed beneath the skin level and Steri-Strips applied across the incision. Mrs. Betancur was advised to continue wearing her Cam walker to allow her sutures to heal without irritation. She will return to the office in 1 month for reexamination. Mrs. Betacnur may resume her normal footwear as tolerated in the interim as her incisions heal. She is advised to be cautious against running or jumping activities over the next month. Mrs. Betancur is encouraged to call the office anytime she has any problems or concerns. BLAIRE Corcoran PA Cosigned by Arnol Moreau MD at 02/27/2018 5:30 PM CDT documented in this encounter Plan [...] documented in this encounter Visit Diagnoses Diagnosis Orthopedic aftercare- Primary Unspecified orthopedic aftercare Painful orthopaedic hardware (HCC) S/P hardware removal Right ankle pain, unspecified chronicity Status post open reduction with internal fixation (ORIF) of fracture of ankle documented in this encounter Care Teams Human Capital Analyst Relationship Specialty Start Date End Date Mendoza Parker MD PCP - General 02/18/17 06/12/20 documented as of this encounter
--- OUTSIDE RECORDS SUMMARY | 2024-11-19 04:54 | XMS_ITS | Encounter Summary ---
Author Organization [facility] Address [address] [facility] [address] [place] [address] Care Team Providers Care Tuft Machine Operator Name Role Phone Mendoza Parker MD Primary Care Provider +1- [phone] Encounter Details Date Type Department Care Team (Latest Contact Info) Description 08/10/2017 2:42 PM CDT - 08/10/2017 11:59 PM CDT Hospital Encounter [facility] Medical [facility] Orthopedics and Sports Medicine [address] [facility] [address] [place] [address] Discharge Disposition: Discharge to home or self care Social History Tobacco Use Types Packs/Day Years Used Date Smoking Tobacco: Former Smokeless Tobacco: Former Alcohol Use Standard Drinks/Week Comments No 0 (1 standard drink = 0.6 oz pur e alcohol) Comments Unknown Sex and Gender Information Value Date Recorded Sex Assigned at Not on file 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 09/02/20 17 atorvastatin (LIPITOR) 20 mg tablet Take 20 mg by mouth daily. 09/02/20 17 azelastine 0.15 % (205.5 mcg) spray,non-aeroso l Administer 205.5 mcg into affected nostril(s) 2 (two) times a day. 30 mL 1 06/24/2017 08/30/20 17 BYSTOLIC 5 mg tablet TAKE ONE AND ONE-HALF TABLETS DAILY 135 tablet 1 08/08/2017 10/26/20 17 cholecalciferol (VITAMIN D3) 2,000 unit capsule take 1 by Oral route every day 0 0 08/02/2013 09/04/20 18 citalopram (CeleXA) 20 mg tablet take 1 tablet (20MG) by oral route every day 0 03/05/2013 01/21/20 18 citalopram (CeleXA) 40 mg tablet daily. 01/31/2012 05/11/20 18 cyclobenzaprine ER (AMRIX) 15 mg 24 hr capsule take 1 capsule by oral route every day 0 0 01/11/2017 01/18/20 18 docusate sodium (COLACE) 100 mg capsule take 1 capsule (100MG) by oral route every day at bedtime as needed 30 0 07/02/2016 01/21/[address] (CYMBALTA) 60 mg capsule take 1 capsule by oral route maxi day 90 0 03/14/2014 11/16/20 18 ergocalciferol (VITAMIN D) 50,000 unit capsule TAKE ONE CAPSULE ONCE A WEEK FOR 8 WEEKS 04/25/2012 11/16/20 18 estradiol (ESTRACE) 0.01 % (0.1 mg/gram) vaginal cream INSERT 1/2 TO 1 GRAM VAGINALLY 1 TO 2 TIMES PER WEEK 42.5 0 03/07/2013 10/01/20 20 isosorbide mononitrate ER (IMDUR) 60 mg 24 hr tablet Take 60 mg by mouth daily. 09/02/20 17 linaclotide (LINZESS) 290 mcg capsule take 1 capsule by oral route every day on an empty stomach at least 30 minutes before 1st meal of the day swallowing whole. 30 11 10/08/2014 09/04/20 18 omeprazole (PriLOSEC) 40 mg capsule Take 1 capsule (40 mg total) by mouth daily. 30 capsule 08/01/2017 01/06/20 18 pen needle, diabetic (BD ULTRA-FINE MINI PEN [...] VIEWS Schedule Routine, Read Routine (OP Routine) 08/10/2017 2:42 PM CDT Unspecified orthopedic aftercare documented in this encounter Results * XR Ankle Right 3 or More Views (08/10/2017 2:42 PM CDT) Anatomical Region Laterality Modality Lower Extremities, Ankle Right Digital Radiography Narrative 08/10/2017 3:42 PM CDT Interpretation of x-rays: ??Three views of the right ankle taken today in the office demonstrate, in my opinion, no acute bony abnormality, fracture or dislocation. ??There are sclerotic changes within the distal tibia consistent with previous syndesmotic and medial malleolar screws. ??The ankle mortise appears intact without widening and symmetrical clear space surrounding the talus. ??The retained plate and screws on the distal fibula appear intact without hardware loosening or fracture of the hardware. INO Cason II IMG XR PROCEDURES Final Result documented in this encounter Visit Diagnoses Not on filedocumented in this encounter Care Teams Tuft Machine Operator Relationship Specialty Start Date End Date Mendoza Parker MD PCP - General 02/18/17 06/12/20 documented as of this encounter
--- OUTSIDE RECORDS SUMMARY | 2024-11-19 04:54 | XMS_ITS | Encounter Summary ---
Author Organization [facility] Address [address] [facility] [address] [place] [address] Care Team Providers Care Driver Sales Name Role Phone Mendoza Parker MD Primary Care Provider +1- [phone] Encounter Details Date Type Department Care Team (Late st Contact Info) Description 02/01/2018 Telephone [facility] Orthopedics and Sports Medicine [address] [facility] [address] [place] [address] Radha Wright MA Social History Tobacco Use Types Packs/Day Years Used Date Smoking Tobacco: Every Day Cigarettes Smokeless Tobacco: Former Alcohol Use Standard Drinks/Week Comments No 0 (1 standard drink = 0.6 oz pur e alcohol) Comments Unknown Sex and Gender Information Value Date Recorded Sex Assigned at Not on file 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 Patient has a norco rx from her PCP and could not get ours filled(insurance will not cover). Informed patient to call pharmacy and tell them she has had surgery and see what options they have for her. documented in this encounter Plan of Treatment Not on file documented as of this encounter Visit Diagnoses Not on filedocumented in this encounter Care Teams Driver Sales Relationship Specialty Start Date End Date Mendoza Parker MD PCP - General 02/18/17 06/12/20 documented as of this encounter
--- OUTSIDE RECORDS SUMMARY | 2024-11-19 04:54 | XMS_ITS | Encounter Summary ---
Author Organization [facility] Address [address] [place] [address] Phone Care Team Providers Care [employer] Combination Teacher Name Role Phone Mendoza Parker MD Primary Care Provider +1- [phone] Reason for Visit * Reason Comments Follow-up Encounter Details Date Type Department Care Team (Late st Contact Info) Description 09/08/2017 2:10 PM CDT Office Visit [facility] [address] [place] [phone] Mendoza Parker MD [address] [place] [id number] Obstructive sleep apnea syndrome (Primary Dx) Social History Tobacco Use Types Packs/Day Years Used Date Smoking Tobacco: Former Smokeless Tobacco: Former Alcohol Use Standard Drinks/Week Comments No 0 (1 standard drink = 0.6 oz pur e alcohol) Comments Unknown Sex and Gender Information Value Date Recorded Sex Assigned at Not on file 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 Gender Identity Not on file Sexual Orientation Not on file documented as of this encounter Last Filed Vital Signs Vital Sign Reading Time Taken Comments Blood Pressure 142/90 09/08/2017 2:07 PM CDT Pulse 100 09/08/2017 2:07 PM CDT Temperature 36.6 ??C (97.8 ??F) 09/08/2017 2:07 PM CD T Respiratory Rate 16 09/08/2017 2:07 PM CDT Oxygen Saturation 94% 09/08/2017 2:07 PM CDT Inhaled Oxygen Concentration - - Weight 78.5 kg (173 lb) 09/08/2017 2:07 PM CDT Height 152.4 cm (5') 09/08/2017 2:07 PM CDT Body Mass Index 33.79 09/08/2017 2:07 PM CDT documented in this encounter Progress Notes * Mendoza Parker MD - 09/08/2017 2:10 PM CDT Subjective/Objective Patient ID: Shivani Betancur is a 51 y.o. female. Chief Complaint Follow-up HPI Mandatory dzmm-le-imxs exam for CPAP equipment replacement. Review of Systems Constitutional: Positive for fatigue. HENT: Negative. Respiratory: Negative. Cardiovascular: Negative. Gastrointestinal: Negative. Musculoskeletal: Positive for arthralgias. Skin: Negative. Physical Exam Constitutional: She appears well-developed and well-nourished. Eyes: EOM are normal. Pupils are equal, round, and reactive to light. Cardiovascular: Normal rate, regular rhythm, normal heart sounds and intact distal pulses. Pulmonary/Chest: Effort normal and breath sounds normal. Abdominal: Soft. Musculoskeletal: Normal range of motion. Neurological: She is alert. Skin: Skin is warm and dry. Capillary refill takes less than 2 seconds. Psychiatric: She has a normal mood and affect. Her behavior is normal. Nursing note and vitals reviewed. Assessment/Plan Diagnoses and all orders for this visit: 1. Obstructive sleep apnea syndrome (Primary) Assessment & Plan: This this patient uses a CPAP machine on a nightly basis and benefits from using it. Primary benefit of restorative sleep, eliminates daytime fatigue, symptoms such as morning headaches. Recommended patient continue uses CPAP machine. Patient's needs replacement for mask and tubing I have reviewed her previous sleep study and she was using a full face mask auto titration 5-20 pressure range documented in this encounter Miscellaneous Notes * Assessment & Plan Note - Mendoza Parker MD - 09/08/2017 3:40 PM CDT Associated Problem(s): NEO (obstructive sleep apnea) This this patient uses a CPAP machine on a nightly basis and benefits from using it. Primary benefit of restorative sleep, eliminates daytime fatigue, symptoms such as morning headaches. Recommended patient continue uses CPAP machine. Patient's needs replacement for mask and tubing I have reviewed her previous sleep study and she was using a full face mask auto titration 5-20 pressure range * Addendum Note - Usha Smith - 09/08/2017 2:10 PM CDTAddended by: USHA SMITH on: 09/16/2017 11:33 AM Modules accepted: Orders documented in this encounter Plan of Treatment Not on file documented as of this encounter Visit Diagnoses Diagnosis Obstructive sleep apnea syndrome- Primary Obstructive sleep apnea (adult) (pediatric) documented in this encounter Orders General Supply Count Last Ordered Date First Or dered Date PAP MACHINE REPLACEMENT SUPPLIES 1 09/16/20 17 documented in this encounter Care Teams [employer] Combination Teacher Relationship Specialty Start Date End Date Mendoza Parker MD PCP - General 02/18/17 06/12/20 documented as of this encounter
--- OUTSIDE RECORDS SUMMARY | 2024-11-19 04:54 | XMS_ITS | Encounter Summary ---
Author Organization [facility] Address [address] [place] [address] Care Team Providers Care Glycerin Operator Name Role Phone Mendoza Parker MD Primary Care Provider [phone]- [phone] Reason for Visit * Reason Comments Pain Encounter Details Date Type Department Care Team (Late st Contact Info) Description 08/10/2017 2:00 PM CDT Office Visit [facility] Orthopedics and Sports Medicine [address] [place] [address] Richardson Shields II, PA [address] [place] [address] [address] [place] [address] Unspecified orthopedic aftercare (Primary Dx); Tibialis posterior tendinitis, right Social History Tobacco Use Types Packs/Day Years Used Date Smoking Tobacco: Former Smokeless Tobacco: Former Alcohol Use Standard Drinks/Week Comments No 0 (1 standard drink = 0.6 oz pur e alcohol) Comments Unknown Sex and Gender Information Value Date Recorded Sex Assigned at Not on file Legal Sex Female 12:[address] [employer] Gender Identity Not on file Sexual Orientation Not on file documented as of this encounter Last Filed Vital Signs Vital Sign Reading Time Taken Comments Blood Pressure 123/83 08/10/2017 2:59 PM CDT Pulse 83 08/10/2017 2:59 PM CDT Temperature - - Respiratory Rate - - Oxygen Saturation - - Inhaled Oxygen Concentration - - Weight 78.8 kg (173 lb 12.8 oz) 08/10/2017 2:59 PM CDT Height 152.4 cm (5') 08/10/2017 2:59 PM CDT Body Mass Index 33.94 08/10/2017 2:59 PM CDT documented in this encounter Progress Notes * Richardson Shields, INO - 08/10/2017 2:00 PM CDT Images from the original note were not included. FOLLOW UP VISIT Subjective CHIEF COMPLAINT She had concerns including Pain of the Right Ankle. HISTORY OF PRESENT ILLNESS Mrs. Betancur returns to the office today requesting examination of her right ankle. She has been experiencing pain behind the medial malleolus for the past several weeks with no specific trauma or precipitating event. Pain is at a 9/10 in severity level with weight-bearing activities. Mrs. Betancur denies swelling, redness or warmth of the medial ankle. Mrs. Betancur has been wearing flat shoes such as sandals daily throughout the summer without discomfort. She denies numbness or paresthesias in theright foot. Mrs. Betancur is status post ORIF of a trimalleolar fracture of her right ankle on 05/21/2015 followed by hardware removal from the medial malleolus and syndesmotic screw on 07/08/[address] Moreau. Pain Assessment Pain Assessment: 0-10 Pain Score: 9 Pain Location: Ankle Pain Orientation: Right Pain Descriptors: Aching, Burning Pain Frequency: Constant/continuous Pain Onset: Ongoing Clinical Progression: Gradually worsening Aggravating Factors: Walking, Standing Result of Injury: No Work-Related Injury: No Patient's Stated Pain Goal: No pain Pain Interventions: Medication (See MAR) MEDICATIONS She has a current medication list which includes the following prescription(s): aspirin, atorvastatin, azelastine, bystolic, vitamin d3, amrix, colace, cymbalta, estrace, isosorbide mononitrate er, linzess, omeprazole, lyrica, forteo, and citalopram. REVIEW OF SYSTEMS Review of Systems Constitutional: [...] is not hyperactive. Objective PHYSICAL EXAM BP 123/83 (BP Location: Left arm, Patient Position: Sitting) Pulse 83 Ht 152.4 cm (5') Wt 78.8 kg (173 lb 12.8 oz) BMI 33.94 kg/m?? Right foot/ankle Inspection Erythema: absent Effusion: [...] D. Peroneal: intact Sural: intact Saphenous: intact REVIEW OF X-RAYS/STUDIES/LABS XR Ankle Right 3 or More Views Interpretation of x-rays: Three views of the right ankle taken today in the office demonstrate, in my opinion, no acute bony abnormality, fracture or dislocation. There are sclerotic changes within the distal tibia consistent with previous syndesmotic and medial malleolar screws. The ankle mortise appears intact without widening and symmetrical clear space surrounding the talus. The retained plate and screws on the distal fibula appear intact without hardware loosening or fracture of the hardware. Assessment/Plan Shivani was seen today for pain. Diagnoses and all orders for this visit: Unspecified orthopedic aftercare - XR Ankle Right 3 or More Views Tibialis posterior tendinitis, right PLAN Mrs. Betancur was advised to obtain semi-rigid orthotics for her shoes and to begin taking oral NSAIDs (naproxen) for anti-inflammatory effect and pain control for the next 2 weeks. She is encouraged to use crutches or a walker with weight-bearing as tolerated on her right foot. Mrs. Betancur will return to the office in 3-4 weeks for reexamination and is encouraged to call the office anytime she hasany problems or concerns during the interim. BLAIRE Corcoran PA Cosigned by Arnol Moreau MD at 09/13/2017 1:52 PM CDT documented in this encounter Plan [...] hardware loosening or fracture of the hardware. us INO Cason II IMG XR PROCEDURES Final Result documented in this encounter Visit Diagnoses Diagnosis Unspecified orthopedic aftercare- Primary Tibialis posterior tendinitis, right documented in this encounter Care Teams Glycerin Operator Relationship Specialty Start Date End Date Mendoza Parker MD PCP - General 02/18/17 06/12/20 documented as of this encounter
--- OUTSIDE RECORDS SUMMARY | 2024-11-19 04:54 | XMS_ITS | Encounter Summary ---
Author Organization [facility] Healthcare Address [address] [place] [address] Care Team Providers Care Operator Coating Furnace Name Role Phone Mendoza Parker MD Primary Care Provider +1- [phone] Encounter Details Date Type Department Care Team (Latest Contact Info) Description 01/31/2018 8:49 AM CDT - 01/31/2018 5:02 PM CDT Hospital Encounter [facility] [place] Operating Room [address] [place] [address] Arnol Moreau MD [address] [place] [address] DR [place] [address] [address] Discharge Disposition: Discharge to home or self care Social History Tobacco Use Types Packs/Day Years Used Date Smoking Tobacco: Every Day Cigarettes Smokeless Tobacco: Former Tobacco Cessation:Ready to Q uit: Yes; Counseling Given: Yes Alcohol Use Standard Drinks/Week Comments No 0 (1 standard drink = 0.6 oz pur e alcohol) Comments Unknown Sex and Gender Information Value Date Recorded Sex Assigned at Not on file 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 Gender Identity Not on file Sexual Orientation Not on file documented as of this encounter Last Filed Vital Signs Vital Sign Reading Time Taken Comments Blood Pressure 138/78 01/31/2018 4:57 PM CDT Pulse 72 01/31/2018 4:57 PM CDT Temperature 36.6 ??C (97.8 ??F) 01/31/2018 4:57 PM CD T Respiratory Rate 14 01/31/2018 4:57 PM CDT Oxygen Saturation 98% 01/31/2018 4:57 PM CDT Inhaled Oxygen Concentration - - Weight 78 kg (171 lb 15.3 oz) 01/31/2018 9:50 AM CDT Height 152.4 cm (5') 01/31/2018 9:50 AM CDT Body Mass Index 33.58 01/31/2018 9:50 AM CDT documented in this encounter Discharge Instructions * Attachments The following attachments cannot be sent through Care Everywhere. * General Anesthesia (Discharge Care) (Welsh) * Hydrocodone (By mouth) (Welsh) * Aspirin (By mouth) (Welsh) * Ascorbic Acid (Vitamin C) (By mouth) (Welsh) documented in this encounter Medications at Time [...] done 12/28/2017 05/11/[address] (CYMBALTA) 30 mg capsule [...] by mouth daily with breakfast. 04/17/20 20 omeprazole (PriLOSEC) 40 mg capsule [...] documented in this encounter H&P Notes * Arnol Moreau MD - 01/31/2018 10:39 AM CDT I have reviewed the H&P, examined the patient, and endorse the findings as written. Plan of Care : Based on the above findings, I consider Shivani Balesga to be an acceptable risk for : Procedure(s): Arthroscopy Ankle Arthroscopy, Removal of hardware Right ankle equipment, synthes small frag fibulaset, ankle spider set, synthes hardware removal set and norian 1cc Source Note - Arnol Moreau MD - 01/18/2018 2:00 PM TAIL END RIDER Images from the original note were not included. NEW PATIENT VISIT Subjective CHIEF COMPLAINT She had concerns including Pain of the Right Ankle. HISTORY OF PRESENT ILLNESS Right ankle pain for the last 4 years had open reduction internal fixation 2013 has syndesmotic screws removed 2015 continue to [...] backfilling the screw holes Arnol Moreau MD END RIDER documented in this encounter Miscellaneous Notes * Perioperative Nursing Note - Janis Laboy RN - 01/31/2018 4:30 PM CDT 1600 unable to fit pts boots from home due to bulky dressing. Dennis Peacock notified and stated pt may use post op shoe until pt changes the dressing and then may use boot from home. Pt informed and verbalized understanding. Judi Craven * Perioperative Nursing Note - Estefania Ward RN - 01/31/2018 2:25 PM CDT Norian used during procedure. * Perioperative Nursing Note - Estefania Ward RN - 01/31/2018 2:10 PM CDT 1345-ankle traction is on * Perioperative Nursing Note - Estefania Ward RN - 01/31/2018 2:10 PM CDT 1410-ankle traction is off. * Op Note - Arnol Moreau MD - 01/31/2018 1:48 PM CDT Operative Report SURGEON: Arnol Moreau MD SURGICAL TEAM: Surgeon(s) and Role: * Arnol Moreau MD - Primary DATE OF SURGERY : 01/31/2018 PREOPERATIVE DIAGNOSIS: See preoperative H and P POSTOPERATIVE DIAGNOSIS: Post-op Diagnosis * Painful orthopaedic hardware (CMS/[facility]) [T84.84XA] * Right ankle pain, unspecified chronicity [M25.571] PROCEDURE: right ankle hardware removal, arthroscopy ankle, debridement, limited (R) ANESTHESIA: General PA-C: Yniguganesh IMPLANTS: Implant Name Type Inv. Item Serial No. Electronic Communications Technician Lot No. LRB No. Used FILLER BONE VOID NORIAN CALCIUM PHOSPHATE FIBER 3 ML DRILLABLE INJECT REINFORCED BIORESORBABLE BIOCOMPATIBLE ISOTHERMIC STERILE - [id number] FILLER BONE VOID NORIAN CALCIUM PHOSPHATE FIBER 3 ML DRILLABLE INJECT REINFORCED BIORESORBABLE BIOCOMPATIBLE ISOTHERMIC STERILE [facility] [id number] Right 1 OPERATIVE DETAILS Estimated Blood Loss: No blood loss documented. Operation in detail: Patient was prepped and draped in standard sterile technique tray was placed on her thigh right legwas placed in an ankle arthroscopy leg shabazz. Previous lateral incision was marked the superficialperoneal nerve was identified and marked anterior medial and lateral portals were marked the lower extremities exsanguinated and tourniquet was inflated to 275. The ankles placed traction for approximately 20 [...] and attention was turned to the hardware. Skin incision was made Bovie and blade [...] counts instrument counts correct in the case. Patient will be weight-bearing as tolerated in her boot that she has at home for the next 1-2 weeksshe will follow up in 2 weeks for wound check and return to her normal shoe wear at that time. Complications: None Condition on Discharge from the operating room was stable Arnol Moreau MD Date: 01/31/2018 Time: 2:41 PM * Pre-Procedure Instructions - Hannah Plata RN - 01/20/2018 1:45 PM CST We are pleased that you and your doctor have chosen [facility] for your surgery. We hope that the following information will help make your visit a pleasant one. Surgery Date: 01/31/2018 Before your surgery: ?? Notify your doctor of ANY change in your health such as a cold, sore throat, fever, any infection or a change in the problem for which you are having your surgery. ?? Follow any instructions given to you by your doctor or surgeon. One week before surgery STOP taking: ?? All herbal supplements ?? Aspirin (not ordered by your doctor) ?? Aleve, Advil, Motrin, Ibuprofen, or other similar medications (Tylenol is okay). 24 hours before your surgery: ?? No smoking or alcoholic drinks. Night before your surgery: ?? Do not eat or drink anything after midnight. ?? Follow surgeon's instructions for anti-bacterial shower night before and morning of surgery. Day of surgery: ?? Do not swallow any water when you brush your teeth. ?? ONLY take these pills Azelastine Nasal Mosby, Bystolic, Duloxetine, Isosorbide and Lyrica with atiny sip of water. ?? Use no make-up, nail turkmen, lotions, oils or powders on your skin. ?? Wear comfortable clothes that will not be tight in the area of your surgery. ?? Leave all valuables and jewelry (including all body piercing jewelry) at home. ?? Please bring your a photo ID and insurance cards with you. ?? Check in at the Ambulatory Surgery Check-In. ?? If you are 17 years old or younger, a parent or guardian must come with you. After your Outpatient Surgery: ?? You must have a responsible adult to drive you home, you will not be allowed to drive or take a cab home. ?? We recommend you have someone stay with you for 24 hours after your surgery. What to bring if you are spending the night with us: ?? Bring toiletry items such as: robe, slippers, toothbrush, toothpaste, brush or comb. ?? Bring contact lens, hearing aids, glass cases and denture container if you use any of these items. ?? The hospital will provide you with a gown. Questions or concerns: ?? If you have any questions or concerns regarding your procedure, contact your surgeon as soon as possible. ?? If you have questions regarding your Pre-Admission Testing, please call us. We can be reached atthe number posted at the top of the page. END RIDER documented in this encounter Plan of Treatment Not on file documented as of this encounter Procedures Procedure Name Priority Date/Time Associated Diagnosis Comments XR ANKLE RIGHT 1 VIEW IP Routine 01/31/2018 3:07 PM CDT FL FLUOROSCOPY > 1 HOUR IP Routine 01/31/2018 3:07 PM CDT ARTHROSCOPY ANKLE 01/31/2018 12: 53 PM CDT Painful orthopaedic hardware (CMS/HCC) Right ankle pain, unspecified chronicity Special Needs Arthroscopy equipment, synthes small frag fibula set, ankle spider set, synthes hardware removal set and norian 1cc documented in this encounter Results * FL Fluoroscopy > 1 Hour (01/31/2018 3:07 PM CDT) Anatomical Region Laterality Modality Body N/A Computed Radiogr aphy Impressions 02/03/2018 10:45 AM CDT 1. ??Removal of hardware from distal fibula with no residual hardware in place. 2. ??Hyperostosis along distal lateral tibial shaft. 3. ??Spurring at medial malleolus of tibia. Fluoroscopy time 1 sec.. Electronically signed by: Varun Abernathy Jr., M.D. Narrative 02/03/2018 10:45 AM CDT XR ANKLE RIGHT 1 VIEW HISTORY: OTHER hardware removal . COMPARISON: Right ankle in surgery on 07/08/2016. VIEWS: 2 AP views in surgery FINDINGS: 2 AP views of the right ankle obtained in surgery demonstrate complete removal of previous plate and screws transfixing an old, healed distal right fibula fracture. ??Some spurring is seen at the medial malleolus. ??There is also some hyperostosis along the lateral surface of the distal shaft of the tibia. Procedure Note Varun Abernathy MD - 02/03/2018 XR ANKLE RIGHT 1 VIEW HISTORY: OTHER hardware removal . COMPARISON: Right ankle in surgery on 07/08/2016. VIEWS: 2 AP views in surgery FINDINGS: 2 AP views of the right ankle obtained in surgery demonstrate complete removal of previous plate and screws transfixing an old, healed distal right fibula fracture. Some spurring is seen at the medial malleolus. There is also some hyperostosis along the lateral surface of the distal shaft of the tibia. IMPRESSION: 1. Removal of hardware from distal fibula with no residual hardware in place. 2. Hyperostosis along distal lateral tibial shaft. 3. Spurring at medial malleolus of tibia. Fluoroscopy time 1 sec.. Electronically signed by: Varun Abernathy Jr., M.D. Arnol Moreau MD IMG FLUOROSCOPY PROCEDURES F inal Result * XR Ankle Right 1 View (01/31/2018 3:07 PM CDT) Anatomical Region Laterality Modality Ankle Right Computed Radiogr aphy Impressions 01/31/2018 4:15 PM CDT 1. ??Removal of hardware from distal fibula with no residual hardware in place. 2. ??Hyperostosis along distal lateral tibial shaft. 3. ??Spurring at medial malleolus of tibia. Fluoroscopy time 1 sec.. Electronically signed by: Varun Abernathy Jr., M.D. Narrative 01/31/2018 4:15 PM CDT XR ANKLE RIGHT 1 VIEW HISTORY: OTHER hardware removal . COMPARISON: Right ankle in surgery on 07/08/2016. VIEWS: 2 AP views in surgery FINDINGS: 2 AP views of the right ankle obtained in surgery demonstrate complete removal of previous plate and screws transfixing an old, healed distal right fibula fracture. ??Some spurring is seen at the medial malleolus. ??There is also some hyperostosis along the lateral surface of the distal shaft of the tibia. Procedure Note Varun Abernathy MD - 01/31/2018 XR ANKLE RIGHT 1 VIEW HISTORY: OTHER hardware removal . COMPARISON: Right ankle in surgery on 07/08/2016. VIEWS: 2 AP views in surgery FINDINGS: 2 AP views of the right ankle obtained in surgery demonstrate complete removal of previous plate and screws transfixing an old, healed distal right fibula fracture. Some spurring is seen at the medial malleolus. There is also some hyperostosis along the lateral surface of the distal shaft of the tibia. IMPRESSION: 1. Removal of hardware from distal fibula with no residual hardware in place. 2. Hyperostosis along distal lateral tibial shaft. 3. Spurring at medial malleolus of tibia. Fluoroscopy time 1 sec.. Electronically signed by: Varun Abernathy Jr., M.D. us Arnol Moreau MD IMG XR PROCEDURES Final Resu lt documented in this encounter Visit Diagnoses Diagnosis Painful orthopaedic hardware (HCC) Right ankle pain Pain in joint, ankle and foot documented in this encounter Admitting Diagnoses Diagnosis Painful orthopaedic hardware (HCC) Right ankle pain Pain in joint, ankle and foot documented in this encounter Administered Medications Inactive Administered Medications - up to 3 most recent administrations Medication Order MAR Action Action Date Dose Rate Site fentaNYL (SUBLIMAZE) preservative free injection 50 mcg 50 mcg, intravenous, Once as needed, uncontrolled pain on PACU admission, Starting on Tue01/31/18 at 1517, For 1 dose, Phase I, Then proceed to PACU 1st line analgesic., Indications: PainIndications:Pain Given 01/31/2018 3:25 PM CDT 50 mcg HYDROcodone-acetaminophen (NORCO) 5-325 mg per tablet - ADS Override Pull Starting on Tue01/31/18 at 1627, For 1 dose, JUANY LABOY, LYNDON: cabinet override Given 01/31/2018 4:28 PM CDT 2 tablets HYDROmorphone (DILAUDID) injection 0.2 mg 0.2 mg, intravenous, Every 10 min PRN, 1st line for pain, Starting on Tue01/31/18 at 1517, Phase I, Notify Anesthesiologist if total PACU dose reaches 2 mg and pain score 5/10 or more., Indications: PainIndications:Pain Given 01/31/2018 3:41 PM CDT 0.2 mg Lactated Ringer's (LR) infusion 30 mL/hr, intravenous, Continuous, Starting on Tue01/31/18 at 1400, Pre-Op New Bag 01/31/2018 1:45 PM CDT New Bag 01/31/2018 12:49 PM CDT 50 mL/hr scopolamine 1 mg over 3 days patch 72 hour - ADS Override Pull Starting on Tue01/31/18 at 1117, For 1 dose, ROMMEL HARRINGTON, LALA: cabinet override scopolamine patch 72 hour 1 patch 1 patch, transdermal, Administer over 72 Hours, Once, On Tue01/31/18 at 1145, For 1 dose, Pre-Op Medication Applied 01/31/2018 11:18 AM CDT 1 patch Behind Right Ear sodium chloride 0.9% flush 0.5-20 mL 0.5-20 mL, intra-catheter, As needed, line care, Starting on Tue01/31/18 at 1330, Pre-Op, Flush volume based on line type and size. Flush before and after each use. , Indications: FlushingIndications:Flu shing documented in this encounter Discontinued Medications Medication Sig Discontinue Reason Start Date End Da te dexamethasone (DECADRON) 1 mg tablet Therapy completed 12/28/2017 01/20/2018 docusate sodium (COLACE) 100 mg capsule take 1 capsule (100MG) by oral route every day at bedtime as needed Therapy completed 07/02/2016 01/20/2018 gabapentin (NEURONTIN) 300 mg capsule Therapy completed 01/20/2018 REXULTI 2 mg tablet Therapy completed 11/03/2017 01/20/2018 teriparatide (FORTEO) 20 mcg/dose - 600 mcg/2.4 mL injection inject 0.08 milliliter by subcutaneous route every day into the thigh or abdominal wall Therapy completed 08/04/2015 01/20/2018 citalopram (CeleXA) 20 mg tablet take 1 tablet (20MG) by oral route every day Therapy completed 03/05/2013 01/20/2018 isosorbide mononitrate ER (IMDUR) 60 mg 24 hr tablet TAKE ONE TABLET BY MOUTH ONCE DAILY Therapy completed 01/30/2018 01/31/2018 HYDROcodone-acetamino phen (NORCO) 5-325 mg per tabletIndications:Adelita n Take 1-2 tablets by mouth every 4-6 hours as needed for pain Therapy completed 01/25/2018 01/31/2018 aspirin 81 mg tablet Take 1 tablet (81 mg total) by mouth daily. Stop Taking at Discharge 09/02/2017 01/31/2018 documented as of this encounter Historical Medications * This list may reflect changes made after this encounter. zolpidem (AMBIEN) 10 mg tabletIndications :Sleep-Onset Insomnia Take 10 mg by mouth nightly as needed for sleep. 09/04/2018 lubiprostone (AMITIZA) 24 mcg capsule Take 24 mcg by mouth daily with breakfast. 04/17/2020 added in this encounter Active and Recently Administered Medications Due to Daylight Saving Time, this section may contain times in both TAIL END RIDER and CDT. Scheduled Medication Order 01/29/2018 01/30/2018 01/31/2018 ceFAZolin (ANCEF) IV syringe (100 mg/mL in SW) 2,000 mg 2,000 mg, intravenous, Administer over 5 Minutes, Once, On 01/31/18 at 1015, For 1 dose, Pre-Op, Administer within 60 minutes of incision. 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 May administer 1000 mg if less than 80kg, Indications: Prophylaxis, Surgical 1015 (Due) scopolamine patch 72 hour 1 patch 1 patch, transdermal, Administer over 72 Hours, Once, On 01/31/18 at 1145, For 1 dose, Pre-Op 1118 (Medication Lien lied - Provider: Lala Mckee RN)1702 (Due: Medication Removed - Provider: Automatic Discharge Provider - Comment: Time automatically adjusted from order being discontinued) Continuous Medication Order 01/29/2018 01/30/2018 01/31/2018 Lactated Ringer's (LR) infusion 30 mL/hr, intravenous, Continuous, Starting on 01/31/18 at 1400, Pre-Op 1249 (New Bag - Prov ider: Analia Powell CRNA)1308 (Anesthesia Volume Adjustment - Provider: Analia Powell CRNA)1345 (New Bag - Provider: Analia Powell CRNA) PRN Medication Order 01/29/2018 01/30/2018 01/31/2018 bupivacaine-EPINEPHrine (MARCAINE with EPI) 0.5 %-1:200,000 preservative free injection (CANCELED) As needed, Starting on Tue 18 at 1343, Intra-Op 1343 (Given - Provid er: Arnol Moreau MD) EPINEPHrine injection (CANCELED) As needed, Starting on Tue01/31/18 at 1343, Intra-Op 1343 (Given - Provid er: Arnol Moreau MD - Comment: 3mg epi mixed in 3L of NS) fentaNYL (SUBLIMAZE) preservative free injection 50 mcg (COMPLETED) 50 mcg, intravenous, Once as needed, uncontrolled pain on PACU admission, Starting on Tue01/31/18 at 1517, For 1 dose, Phase I, Then proceed to PACU 1st line analgesic., Indications: Pain 1525 (Given - Provid er: Elle Grace RN) HYDROmorphone (DILAUDID) injection 0.2 mg (CANCELED) 0.2 mg, intravenous, Every 10 min PRN, 1st line for pain, Starting on Tue01/31/18 at 1517, Phase I, Notify Anesthesiologist if total PACU dose reaches 2 mg and pain score 5/10 or more., Indications: Pain 1541 (Given - Provid er: Elle Grace RN) sodium chloride (NS) 0.9 % irrigation (CANCELED) As needed, Starting on Tue01/31/18 at 1343, Intra-Op 1343 (Given - Provid er: Arnol Moreau MD) sodium chloride 0.9% flush 0.5-20 mL 0.5-20 mL, intra-catheter, As needed, line care, Starting on Tue01/31/18 at 1330, Pre-Op, Flush volume based on line type and size. Flush before and after each use. , Indications: Flushing No Frequency Medication Order 01/29/2018 01/30/2018 01/31/2018 HYDROcodone-acetaminophen (NORCO) 5-325 mg per tablet - ADS Override Pull (COMPLETED) Starting on Tue01/31/18 at 1627, For 1 dose, JUANY LABOY, LYNDON: cabinet override 1628 (Given - Provid er: Janis Laboy RN) documented in this encounter Orders Medications Ordered That Kamari ht Not Have Been Administered Count Last Ordered Date First Ordered Date bupivacaine-EPINEPHrine (MAR DENNIS with EPI) 0.5 %-1:200,000 preservative free injection 1 01/31/2018 ceFAZolin (ANCEF) IV syringe (100 mg/mL in SW) 2,000 mg 1 01/31/2018 ePHEDrine 50 mg/mL injection - ADS Override Pull 1 01/31/2018 EPINEPHrine injection 1 01/31/2018 fentaNYL (SUBLIMAZE) 50 mcg/ mL preservative free injection - ADS Override Pull 1 01/31/2018 Lactated Ringer's (LR) infusion 1 8 meperidine (DEMEROL) preserv ative free injection 12.5 mg 1 01/31/2018 midazolam (VERSED) 1 mg/mL p reservative free injection - ADS Override Pull 1 01/31/2018 naloxone (NARCAN) injection 0.04-0.4 mg 1 0 01/31/2018 ondansetron (ZOFRAN) injection 4 mg 1 01/31 sodium chloride (NS) 0.9 % irrigation 1 sodium chloride 0.9% flush 0.5-20 mL 1 01/19 Diet Count Last Ordered Date First Orde red Date ADULT DISCHARGE DIET 1 01/31/2018 Nursing Count Last Ordered Date First Orde red Date DISCHARGE ACTIVITY 1 01/31/2018 DISCHARGE CALL PROVIDER 5 01/31/2018 DISCHARGE DRESSING 1 01/31/2018 DISCHARGE INSTRUCTIONS 1 01/31/2018 Admission Count Last Ordered Date First Orde red Date ASSIGN PATIENT STATUS 1 01/31/2018 Discharge Count Last Ordered Date First Orde red Date DISCHARGE PATIENT 1 01/31/2018 documented in this encounter Care Teams Operator Coating Furnace Relationship Specialty Start Date End Date Mendoza Parker MD PCP - General 02/18/17 06/12/20 documented as of this encounter
--- OUTSIDE RECORDS SUMMARY | 2024-11-19 04:54 | XMS_ITS | Encounter Summary ---
Author Organization [facility] Address [address] [place] [address] Care Team Providers Care Marketing Research Analyst Name Role Phone Mendoza Parker MD Primary Care Provider +1- [phone] Encounter Details Date Type Department Care Team (Late st Contact Info) Description 02/01/[address] 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 documented in this encounter Plan of Treatment Not on file documented as of this encounter Visit Diagnoses Not on filedocumented in this encounter Care Teams Marketing Research Analyst Relationship Specialty Start Date End Date Mendoza Parker MD PCP - General 02/18/17 06/12/20 documented as of this encounter
--- OUTSIDE RECORDS SUMMARY | 2024-11-19 04:54 | XMS_ITS | Encounter Summary ---
Author Organization [facility] Address [address] [place] [address] Phone Care Team Providers Care Therapist Asst Name Role Phone Mendoza Parker MD Primary Care Provider +1- [phone] Reason for Visit * Reason Onset Date Comments rx verification 08/04/2017 Encounter Details Date Type Department Care Team (Late st Contact Info) Description 08/04/2017 Telephone [facility] [address] [place] [address] Mendoza Parker MD [address] [place] [id number] rx verification Social History Tobacco Use Types Packs/Day Years Used Date Smoking Tobacco: Former Cigarettes Q uit: 11/21/2003 Alcohol Use Standard Drinks/Week Comments No 0 (1 standard drink = 0.6 oz pur e alcohol) Comments Unknown Sex and Gender Information Value Date Recorded Sex Assigned at Not on file 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 They have paper script from [facility] and cannot read dr's name. There were 4 meds on one script: Omeprazole 40 mg Aspirin 81 mg Atorvastatin 20 mg Isosorbide 60 -needs to verify date and if script came from B documented in this encounter Plan of Treatment Not on file documented as of this encounter Visit Diagnoses Not on filedocumented in this encounter Care Teams Therapist Asst Relationship Specialty Start Date End Date Mendoza Parker MD PCP - General 02/18/17 06/12/20 documented as of this encounter
--- OUTSIDE RECORDS SUMMARY | 2024-11-19 04:54 | XMS_ITS | Encounter Summary ---
Author Organization [facility] Address [address] [place] [address] Phone Care Team Providers Care Telecom Engineer Name Role Phone Mendoza Parker MD Primary Care Provider [phone]- [phone] Encounter Details Date Type Department Care Team (Late st Contact Info) Description 08/01/2017 3:30 PM CDT Office Visit [facility] [address] [place] [phone] Mendoza Parker MD [address] [id number] Precordial pain (Primary Dx) Social History Tobacco Use Types Packs/Day Years Used Date Smoking Tobacco: Former Cigarettes Q uit: 11/21/2003 Alcohol Use Standard Drinks/Week Comments No 0 (1 standard drink = 0.6 oz pur e alcohol) Comments Unknown Sex and Gender Information Value Date Recorded Sex Assigned at Not on file 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 Gender Identity Not on file Sexual Orientation Not on file documented as of this encounter Last Filed Vital Signs Vital Sign Reading Time Taken Comments Blood Pressure 152/100 08/01/2017 3:29 PM CDT Pulse 84 08/01/2017 3:29 PM CDT Temperature 36.2 ??C (97.2 ??F) 08/01/2017 3:29 PM CD T Respiratory Rate 18 08/01/2017 3:29 PM CDT Oxygen Saturation 98% 08/01/2017 3:29 PM CDT Inhaled Oxygen Concentration - - Weight 78.5 kg (173 lb) 08/01/2017 3:29 PM CDT Height 152.4 cm (5') 08/01/2017 3:29 PM CDT Body Mass Index 33.79 08/01/2017 3:29 PM CDT documented in this encounter Ordered Prescriptions Prescription Sig Dispense Quantity Refills Last Filled Start Date End Date omeprazole (PriLOSEC) 40 mg capsule Take 1 capsule (40 mg total) by mouth daily. 30 capsule 08/01/2017 8 documented in this encounter Progress Notes * Mendoza Parker MD - 08/01/2017 3:30 PM CDT Subjective/Objective Patient ID: Shivani Betancur is a 51 y.o. female. Chief Complaint No chief complaint on file. HPI patient developed chest pain this morning and has continued to have chest pain at episodes throughout the day. Duration chest pain is from 2-8 minutes estimate some associated with mandibular pain. Patient referred to [facility] for evaluation of recent onset chest pain. Review of Systems Constitutional: Negative. Negative for [...] dysuria, frequency, hematuria and urgency. Nocturia Musculoskeletal: Negative. Negative for arthralgias, back pain, gait problem, joint swelling, myalgias and neck pain. Skin: Negative for color [...] time. She appears well- developed and well-nourished. Cardiovascular: Normal rate, regular rhythm, normal heart sounds and intact distal pulses. Pulmonary/Chest: Effort normal and breath sounds normal. Abdominal: Soft. Bowel sounds are normal. Neurological: She is alert and oriented to person, place, and time. Skin: Skin is warm and dry. Capillary refill takes less than 2 seconds. Psychiatric: She has a normal mood and affect. Vitals reviewed. Assessment/Plan Diagnoses and all orders for this visit: 1. Precordial pain (Primary) Assessment & Plan: Patient describes precordial pain around 5 a.m. [...] have remained had 100-106. Patient referred to [facility] further evaluation for repeat chest pain throughout today. [facility] room nurse made them aware the patient is being referred reason for referral. documented in this encounter Miscellaneous Notes * Assessment & Plan Note - Mendoza Parker MD - 08/01/2017 4:43 PM CDT Associated Problem(s): Precordial pain (Resolved 01/16/2019) Patient describes precordial pain around 5 a.m. [...] have remained had 100-106. Patient referred to [facility] further evaluation for repeat chest pain throughout today. [facility] the emergency room nurse made them aware the patient is being referred reason for referral. documented in this encounter Plan of Treatment Not on file documented as of this encounter Visit Diagnoses Diagnosis Precordial pain- Primary documented in this encounter Discontinued Medications Medication Sig Discontinue Reason Start Date End Da te pregabalin (LYRICA) 75 mg capsule take 1 capsule by oral route 2 times every day 05/06/2016 08/01/2017 pregabalin (LYRICA) 75 mg capsule take 1 capsule by oral route 2 times every day Duplicate order 03/07/2015 08/01/2017 pregabalin (LYRICA) 75 mg capsule take 1 capsule by oral route 3 times every day 03/07/2015 08/01/[address] (CYMBALTA) 60 mg capsule take 1 capsule (60MG) by oral route every day Duplicate order 03/05/2013 08/01/2017 nebivolol (BYSTOLIC) 5 mg tablet TAKE ONE AND ONE-HALF TABLET BY MOUTH EVERY DAY 03/07/2015 08/01/2017 docusate sodium (COLACE) 100 mg capsule take 1 capsule (100MG) by oral route every day at bedtime as needed 07/02/2016 08/01/2017 cyclobenzaprine (FLEXERIL) 10 mg tablet take 1 tablet by oral route every bedtime 01/23/2016 08/01/2017 estradiol (ESTRACE) 0.01 % (0.1 mg/gram) vaginal cream insert 1/2 to 1 gram by vaginal route 1-2 times per week 03/07/2013 08/01/2017 zolpidem (AMBIEN) 10 mg tablet take 1 tablet by oral route every day at bedtime as needed Therapy completed 03/14/2014 08/01/2017 zolpidem (AMBIEN) 5 mg tablet take 1 tablet by oral route every day at bedtime Therapy completed 02/21/2014 08/01/2017 cyclobenzaprine (FLEXERIL) 10 mg tablet take 1 tablet by oral route every bedtime Therapy completed 01/23/2016 08/01/2017 omeprazole (PriLOSEC) 10 mg capsule take 2 capsule by oral route every day before a meal Dose adjustment 02/21/2014 08/01/2017 omeprazole (PriLOSEC) 40 mg capsule take 1 capsule by oral route every day before a meal Reorder 03/14/2014 08/01/2017 documented as of this encounter Care Teams Telecom Engineer Relationship Specialty Start Date End Date Mendoza Parker MD PCP - General 02/18/17 06/12/20 documented as of this encounter
--- OUTSIDE RECORDS SUMMARY | 2024-11-19 04:54 | XMS_ITS | Encounter Summary ---
Author Organization [facility] Address [address] [place] [address] Phone Care Team Providers Care Seo Specialist Name Role Phone Mendoza Parker MD Primary Care Provider [phone]- [phone] Reason for Visit * Reason Comments Preventative Care Encounter Details Date Type Department Care Team (Late st Contact Info) Description 08/09/2017 2:00 PM CDT Office Visit [facility] [address] [place] [phone] Mendoza Parker MD [address] [place] [id number] Hospital discharge follow-up (Primary Dx) Social History Tobacco Use Types Packs/Day Years Used Date Smoking Tobacco: Former Cigarettes Q uit: 11/21/2003 Alcohol Use Standard Drinks/Week Comments No 0 (1 standard drink = 0.6 oz pur e alcohol) Comments Unknown Sex and Gender Information Value Date Recorded Sex Assigned at Not on file 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 Gender Identity Not on file Sexual Orientation Not on file documented as of this encounter Last Filed Vital Signs Vital Sign Reading Time Taken Comments Blood Pressure 132/80 08/09/2017 1:59 PM CDT Pulse 90 08/09/2017 1:59 PM CDT Temperature 36.6 ??C (97.9 ??F) 08/09/2017 1:59 PM CD T Respiratory Rate 18 08/09/2017 1:59 PM CDT Oxygen Saturation 98% 08/09/2017 1:59 PM CDT Inhaled Oxygen Concentration - - Weight 78.9 kg (174 lb) 08/09/2017 1:59 PM CDT Height 152.4 cm (5') 08/09/2017 1:59 PM CDT Body Mass Index 33.98 08/09/2017 1:59 PM CDT documented in this encounter Progress Notes * Mendoza Parker MD - 08/09/2017 2:00 PM CDT Subjective/Objective Patient ID: Shivani Betancur is a 51 y.o. female. Chief Complaint Preventative Care HPI.Review of Systems Constitutional: Positive for fatigue. HENT: Negative. Respiratory: Negative. Cardiovascular: Negative. Gastrointestinal: Negative. Genitourinary: Negative. Musculoskeletal: Positive for arthralgias, back pain and myalgias. Patient's history of fibromyalgia these are chronic problems. Skin: Negative. Neurological: Neuropathy chronic Hospital follow-up visit no new changes. No longer having any chest pain. Physical Exam Constitutional: She is oriented to person, place, and time. She appears well- developed and well-nourished. HENT: Head: Normocephalic and atraumatic. Eyes: Conjunctivae and EOM are normal. Pupils are equal, round, and reactive to light. Neck: Normal range of motion. Neck supple. Cardiovascular: Normal rate, regular rhythm and normal heart sounds. Pulmonary/Chest: Effort normal and breath sounds normal. Abdominal: Soft. Bowel sounds are normal. Neurological: She is alert and oriented to person, place, and time. Skin: Skin is warm. Psychiatric: She has a normal mood and affect. Vitals reviewed. Assessment/Plan Diagnoses and all orders for this visit: 1. Hospital discharge follow-up (Primary) Assessment & Plan: One week ago this patient was sent [...] Cardiology in August. No new problems since [facility] saw her. No change in therapy. documented in this encounter Miscellaneous Notes * Assessment & Plan Note - Mendoza Parker MD - 08/14/2017 5:51 PM CDT Associated Problem(s): Hospital discharge follow-up (Resolved 05/13/2018) One week ago this patient was sent [...] Cardiology in August. No new problems since [facility] saw her. No change in therapy. documented in this encounter Plan of Treatment Not on file documented as of this encounter Visit Diagnoses Diagnosis Hospital discharge follow-up- Primary Other follow-up examination documented in this encounter Discontinued Medications Medication Sig Discontinue Reason Start Date End Da te estradiol (ESTRACE) 0.01 % (0.1 mg/gram) vaginal cream INSERT 1/2 TO 1 GRAM VAGINALLY 1 TO 2 TIMES PER WEEK Duplicate order 03/07/2013 08/09/2017 documented as of this encounter Historical Medications * This list may reflect changes made after this encounter. isosorbide mononitrate ER (IMDUR) 60 mg 24 hr tablet Take 60 mg by mouth daily. 09/02/2017 atorvastatin (LIPITOR) 20 mg tablet Take 20 mg by mouth daily. 09/02/2017 aspirin 81 mg tablet Take 81 mg by mouth daily. 09/02/2017 added in this encounter Care Teams Seo Specialist Relationship Specialty Start Date End Date Mendoza Parker MD PCP - General 02/18/17 06/12/20 documented as of this encounter
--- OUTSIDE RECORDS SUMMARY | 2024-11-19 04:54 | XMS_ITS | Encounter Summary ---
Author Organization [facility] Healthcare Address [facility] [place] [address] Care Team Providers Care Clergy Member Name Role Phone Mendoza Parker MD Primary Care Provider [phone]- [phone] Encounter Details Date Type Department Care Team (Late st Contact Info) Description 01/31/2018 1:00 PM CDT - 01/31/2018 3:15 PM CDT Surgery [facility] Operating Room [address] [place] [address] Arnol Moreau MD [address] [place] [address] [address] [place] [address] [address] right ankle hardware removal, arthroscopy ankle, debridement, limited Surgery Details Date/Time Status Location OR Service Patient Class Case Class Case Type Trauma Case? 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 Gender Identity Not on file Sexual Orientation Not on file documented as of this encounter Last Filed Vital Signs Vital Sign Reading Time Taken Comments Blood Pressure 125/69 01/31/2018 3:15 PM CDT Pulse 93 01/31/2018 3:15 PM CDT Temperature 36.4 ??C (97.6 ??F) 01/31/2018 3:10 PM CD T Respiratory Rate 25 01/31/2018 3:15 PM CDT Oxygen Saturation 98% 01/31/2018 3:15 PM CDT Inhaled Oxygen Concentration - - Weight 78 kg (171 lb 15.3 oz) 01/31/2018 9:50 AM CDT Height 152.4 cm (5') 01/31/2018 9:50 AM CDT Body Mass Index 33.58 01/31/2018 9:50 AM CDT documented in this encounter Discharge Instructions * Attachments The following attachments cannot be sent through Care Everywhere. * General Anesthesia (Discharge Care) (Uzbek) * Hydrocodone (By mouth) (Uzbek) * Aspirin (By mouth) (Uzbek) * Ascorbic Acid (Vitamin C) (By mouth) (Uzbek) documented in this encounter Medications at Time [...] on the above findings, I consider Shivani Betancur to be an acceptable risk for : Procedure(s): Arthroscopy Ankle Arthroscopy, Removal of hardware Right ankle equipment, synthes small frag fibulaset, ankle spider set, synthes hardware removal set and norian 1cc Source Note - Arnol Moreau MD - 01/18/2018 2:00 PM ARTIFICIAL FLOWERS DYER Images from the original note were not [...] backfilling the screw holes Arnol Moreau MD FICIAL FLOWERS DYER documented in this encounter Miscellaneous Notes * [...] ankle, debridement, limited (R) ANESTHESIA: General PA-C: Keysha IMPLANTS: Implant Name Type Inv. Item Serial No. Custom Feed Mill Operator Helper Lot No. LRB No. Used FILLER BONE VOID NORIAN CALCIUM PHOSPHATE FIBER 3 ML DRILLABLE INJECT REINFORCED BIORESORBABLE BIOCOMPATIBLE ISOTHERMIC STERILE - [id number] FILLER BONE VOID NORIAN CALCIUM PHOSPHATE FIBER 3 ML DRILLABLE INJECT REINFORCED BIORESORBABLE BIOCOMPATIBLE ISOTHERMIC STERILE Synthes [id number] Right 1 OPERATIVE DETAILS Estimated Blood Loss: [...] that you and your doctor have chosen [facility] for your surgery. We hope that the [...] ?? ONLY take these pills Azelastine Nasal [place], Bystolic, Duloxetine, Isosorbide and Lyrica with atiny sip of water. ?? Use no make-up, nail vatican citizen, lotions, oils or powders on your skin. [...] posted at the top of the page. FICIAL FLOWERS DYER documented in this encounter Plan of Treatment [...] pain Pain in joint, ankle and foot Painful orthopaedic hardware (HCC) Right ankle pain, unspecified chronicity documented in this encounter Admitting Diagnoses Diagnosis Painful orthopaedic hardware (HCC) Right ankle pain Pain in joint, ankle and foot documented in this encounter Administered Medications Inactive Administered Medications - up to 3 most recent administrations Medication Order MAR Action Action Date Dose Rate Site bupivacaine-EPINEPHrine (MARCAINE with EPI) 0.5 %-1:200,000 preservative free injection As needed, Starting on Tue01/31/18 at 1343, Intra-Op Given 01/31/2018 1:43 PM CDT 10 mL Surgical Site EPINEPHrine injection As needed, Starting on Tue01/31/18 at 1343, Intra-Op Given 01/31/2018 1:43 PM CDT 6 mg Surgical Site fentaNYL (SUBLIMAZE) preservative free injection 50 [...] on Tue01/31/18 at 1117, For 1 dose, LALA CARNEY RN: cabinet override scopolamine patch 72 hour 1 patch 1 patch, transdermal, Administer over 72 Hours, Once, On Tue01/31/18 at 1145, For 1 dose, Pre-Op Medication Applied 01/31/2018 11:18 AM CDT 1 patch Behind Right Ear sodium chloride (NS) 0.9 % irrigation As needed, Starting on Tue01/31/18 at 1343, Intra-Op Given 01/31/2018 1:43 PM CDT 9,000 mL Surgical Site sodium chloride 0.9% flush 0.5-20 mL 0.5-20 [...] this section may contain times in both ARTIFICIAL FLOWERS DYER and CDT. Scheduled Medication Order 01/29/2018 01/30/2018 01/31/2018 ceFAZolin (ANCEF) IV syringe (100 mg/mL in SW) 2,000 mg 2,000 mg, intravenous, Administer over 5 Minutes, Once, On Tue01/31/18 at 1015, For 1 dose, Pre-Op, Administer within 60 minutes of incision. 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 May administer 1000 mg if less than 80kg, Indications: Prophylaxis, Surgical 1015 (Due) scopolamine patch 72 hour 1 patch 1 patch, transdermal, Administer over 72 Hours, Once, On e 01/31/18 at 1145, For 1 dose, Pre-Op 1118 (Medication Lien lied - Provider: Lala Carney RN)1702 (Due: Medication Removed - Provider: Automatic Discharge Provider - Comment: Time automatically adjusted from order being discontinued) Continuous Medication Order 01/29/2018 01/30/2018 01/31/2018 Lactated Ringer's (LR) infusion 30 mL/hr, intravenous, Continuous, Starting on e 01/31/18 at 1400, Pre-Op 1249 (New Bag - Prov ider: Analia Powell CRNA)1308 (Anesthesia Volume Adjustment - Provider: Analia Powell CRNA)1345 (New Bag - Provider: Analia Powell CRNA) PRN Medication Order 01/29/2018 01/30/2018 01/31/2018 bupivacaine-EPINEPHrine (MARCAINE with EPI) 0.5 %-1:200,000 preservative free injection (CANCELED) As needed, Starting on 01/31/18 at 1343, Intra-Op 1343 (Given - Provid er: Arnol Moreau MD) EPINEPHrine injection (CANCELED) As needed, Starting on 01/31/18 at 1343, Intra-Op 1343 (Given - Provid er: Arnol Moreau MD - Comment: 3mg epi mixed in 3L of NS) fentaNYL (SUBLIMAZE) preservative free injection 50 mcg (COMPLETED) 50 mcg, intravenous, Once as needed, uncontrolled pain on PACU admission, Starting on e 01/31/18 at 1517, For 1 dose, Phase I, [...] Count Last Ordered Date First Ordered Date ceFAZolin (ANCEF) IV syringe (100 mg/mL in SW) 2,000 mg 1 01/31/2018 ePHEDrine 50 mg/mL injection - ADS Override Pull 1 01/31/2018 fentaNYL (SUBLIMAZE) 50 mcg/ mL preservative free injection - ADS Override Pull 1 01/31/2018 Lactated Ringer's (LR) infusion 1 8 meperidine (DEMEROL) preserv ative free injection 12.5 mg 1 01/31/2018 midazolam (VERSED) 1 mg/mL p reservative free injection - ADS Override Pull 1 01/31/2018 naloxone (NARCAN) injection 0.04-0.4 mg 1 0 01/31/2018 ondansetron (ZOFRAN) injection 4 mg 1 01/31 sodium chloride 0.9% flush 0.5-20 mL 1 [...] 01/31/2018 documented in this encounter Care Teams Clergy Member Relationship Specialty Start Date End Date Mendoza Parker MD PCP - General 02/18/17 06/12/20 documented as of this encounter
--- OUTSIDE RECORDS SUMMARY | 2024-11-19 04:55 | XMS_ITS | Encounter Summary ---
Author Organization [facility] Healthcare Address [address] [place] [address] Care Team Providers Care Superintendent Generating Plant Name Role Phone Mendoza Parker MD Primary Care Provider [phone]- [phone] Encounter Details Date Type Department Care Team (Latest Contact Info) Description 02/21/2014 12:29 PM CDT - 02/21/2014 11:59 PM CDT Hospital Encounter [facility] Shannan Cantu MD [address] [place] [address] Chronic cholecystitis Social History Tobacco Use Types Packs/Day Years Used Date Smoking Tobacco: Former Cigarettes Q uit: 11/21/2003 Alcohol Use Standard Drinks/Week Comments No 0 (1 standard drink = 0.6 oz pur e alcohol) Comments Unknown Sex and Gender Information Value Date Recorded Sex Assigned at Not on file Legal Sex Female 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 01/31/[address] (CYMBALTA) 60 mg capsule take 1 capsule (60MG) by oral route every day 0 03/05/2013 7 ergocalciferol (VITAMIN D) 50,000 unit capsule TAKE ONE CAPSULE ONCE A WEEK FOR 8 WEEKS 04/25/2012 8 estradiol (ESTRACE) 0.01 % (0.1 mg/gram) vaginal cream INSERT 1/2 TO 1 GRAM VAGINALLY 1 TO 2 TIMES PER WEEK 42.5 1 03/07/2013 7 estradiol (ESTRACE) 0.01 % (0.1 mg/gram) vaginal cream insert 1/2 to 1 gram by vaginal route 1-2 times per week 1 11 03/07/2013 7 estradiol (ESTRACE) 0.01 % (0.1 mg/gram) vaginal cream INSERT 1/2 TO 1 GRAM VAGINALLY 1 TO 2 TIMES PER WEEK 42.5 0 03/07/2013 0 omeprazole (PriLOSEC) 10 mg capsule take 2 capsule by oral route every day before a meal 0 0 02/21/2014 7 zolpidem (AMBIEN) 5 mg tablet take 1 tablet by oral route every day at bedtime 0 0 02/21/2014 7 documented as of this encounter Plan of Treatment Not on file documented as of this encounter Procedures Procedure Name Priority Date/Time Associated Diagnosis Comments SERUM COMPREHENSIVE METABOLIC PANEL Routine 02/21/2014 12:55 PM CDT BLOOD WBC CELL MORPHOLOGIC EXAM, AUTO Routine 02/21/2014 12:55 PM CDT BLOOD CELL COUNT (CBC) Routine 4 12:55 PM CDT DISCHARGE LABORATORY CUMULATIVE REPORT Routine 02/21/2014 12:00 AM CDT documented in this encounter Results * Blood cell count (CBC) (02/21/2014 12:55 PM CDT) WBC 8.1 4.0 - 10.5 K/cumm HISTORICAL RESULTS RBC 4.51 4.20 - 5.40 M/cumm HISTORICAL RESULTS Hgb 13.7 12.0 - 16.0 g/dl HISTORICAL RESULTS Hct 40.6 37.0 - 47.0 % HISTORICAL RESULTS MCV 90.0 77.0 - 97.0 fl HISTORICAL RESULTS MCH 30.4 23.0 - 34.0 pg HISTORICAL RESULTS MCHC 33.7 32.0 - 36.0 g/dl HISTORICAL RESULTS Rdw 13.1 11.5 - 14.5 % HISTORICAL RESULTS Platelets 315 150 - 450 K/cumm HISTORICAL RESULTS MPV 10.3 7.4 - 10.4 fl HISTORICAL RESULTS Blood specimen (specimen) 02/21/2014 12:55 PM CDT Shannan Cantu MD LAB BLOOD ORDERABLES Final Re sult Performing Organization Address [facility] Co de Phone Number HISTORICAL RESULTS * (ABNORMAL) Blood WBC cell morphologic exam, auto (02/21/2014 12:55 PM CDT) Lymphocytes 32.1 25.0 - 33.0 % HISTORICAL RESULTS Monos 5.7 1.0 - 13.0 % HISTORICAL RESULTS Neutrophils 59.7 53.0 - 69.0 % HISTORICAL RESULTS Eosinophils 1.8 0.0 - 10.0 % HISTORICAL RESULTS Basophils 0.5 0.0 - 1.0 % HISTORICAL RESULTS Immature granulocytes 0.2 0.0 - 1.0 % HISTORICAL RESULTS Lymphocytes, abs 2.6 1.2 - 3.4 K/cumm HISTORICAL RESULTS Monocytes, absolute 0.5(L) 1.1 - 1.9 K/cumm HISTORICAL RESULTS Neutrophils, abs 4.8 1.4 - 6.5 K/cumm HISTORICAL RESULTS Eosinophils, abs 0.2 0.0 - 0.7 cells/cumm HISTORICAL RESULTS Basophils, abs 0.0 0.0 - 0.2 K/cumm HISTORICAL RESULTS Immature granulocyte, abs 0.0 0.0 - 0.0 K/cumm HISTORICAL RESULTS Blood specimen (specimen) 02/21/2014 12:55 PM CDT Shannan Cantu MD LAB BLOOD ORDERABLES Final Re sult Performing Organization Address [facility]/ZIP Co de Phone Number HISTORICAL RESULTS * (ABNORMAL) Serum comprehensive metabolic panel (02/21/2014 12:55 PM CDT) BUN 9.0 6.0 - 23.0 mg/dl HISTORICAL RESULTS Sodium 139 134 - 143 mmol/L HISTORICAL RESULTS Potassium, sr 5.1(H) 3.4 - 5.0 mmol/L HISTORICAL RESULTS Chloride 104 99 - 108 mmol/L HISTORICAL RESULTS CO2 30 23 - 32 mmol/L HISTORICAL RESULTS Glucose 94 70 - 199 mg/dl HISTORICAL RESULTS Comment: Note:The glucose is assumed non fasting Fastin-99 mg/dl Random: 70-199 mg/dl Either a fasting glucose > 126 mg/dL or a random glucose > 200 mg/dL plus symptoms is diagnostic of diabetes when confirmed on another day. Fasting values > 100 mg/dl but < 125 mg/dL are diagnostic of impaired fasting glucose. New reference ranges implemented 10/01/2013. Creatinine 0.81 0.60 - 1.30 mg/dl HISTORICAL RESULTS BUN/creat ratio 11 10 - 20 HIST ORICAL RESULTS A. gap 10 7 - 14 mmol/L HISTORICAL RESULTS Protein, sr 7.8 6.4 - 8.0 g/dl HISTORICAL RESULTS Alb 4.2 3.3 - 4.5 g/dl HISTORICAL RESULTS Alb/glob ratio 1.2 1.1 - 1.8 HISTO RICAL RESULTS Calcium 9.2 8.6 - 9.8 mg/dl HISTORICAL RESULTS Bilirubin 0.3 0.0 - 1.1 mg/dl HISTORICAL RESULTS Alk phos 150(H) 44 - 125 Units/L HISTORICAL RESULTS AST 20 5 - 40 Units/L HISTORICAL RESULTS Comment:AST - NOTE REFERENCE RANGE CHANGE ALT 36 15 - 70 Units/L HISTORICAL RESULTS Serum 02/21/2014 12:5 5 PM CDT Shannan Cantu MD LAB BLOOD ORDERABLES Final Re sult HISTORICAL RESULTS * Discharge Laboratory Cumulative Report (02/21/2014 12:00 AM CDT) 02/21/2014 Narrative HISTORICAL RESULTS - 02/23/2014 2:38 AM CDT Patient No: [id number] ? [facility] Patient Name: DALE BETANCUR ?[facility] Age: 48 YRS ?: 1965 ?Sex:F ?[address] )[id number] ?? Adm Dt: 02/21/2014 ?[place], [place] ??[address] Created: 02/23/2014 ??0238 ?? Pt. Type: R ? Discharge Dt: 02/21/2014 ? Pathologists: Lesley Rowley MD Admit Attend Dr: SHANNAN CANTU) ? BLOOD CELL COUNTS ?Collection Date: ?02/21/14 ?Collection Time: ?1255 ? Ref Range: ?? Units: [4.00-10.50] /CMM ? WBC X 10^3 ?8.12 [4.20-5.40] ??/CMM ? RBC X 10^6 ?4.51 [12.0-16.0] ??G/DL ? HGB ? 13.7 [37.0-47.0] ??% ?HCT ? 40.6 [77.0-97.0] ??FL ? MCV ? 90.0 [23.0-34.0] ??PG ? MCH ? 30.4 [32.0-36.0] ??% ?MCHC ?33.7 [11.5-14.5] ??% ?RDW ? 13.1 [150-450] ?? /CMM ? PLT X 10^3 ? 315 ?BLOOD CELL DIFFERENTIAL ?Collection Date: ?02/21/14 ?Collection Time: ?1255 ? Ref Range: ?? Units: [53.0-69.0] ??% ?NEUTROPHILS ? 59.7 [25.0-33.0] ??% ?LYMPHOCYTES ? 32.1 [1.0-13.0] ??% ?MONOCYTES ?5.7 [0.0-10.0] ??% ?EOSINOPHILS ?1.8 [0.0-1.0] ?? % ?BASOPHILS ?0.5 ? /CMM ? A LYMPHOCYTE ? 2.6 [0.0-1.0] ?? % ?IMM GRAN % ? 0.2 [0.00-0.02] ??/CMM ? A IMM GRAN ?0.02 [1.1-1.9] ?? /CMM ? A MONOCYTE ? 0.5 L [1.4-6.5] ?? /CMM ? A NEUTROPHIL ? 4.8 [0.0-0.7] ?? /CMM ? A EOSINOPHIL ? 0.2 [0.0-0.2] ?? /CMM ? A BASOPHIL ? 0.0 Footnotes and Symbols: L = Low ?? CONTINUED ?Page: ?? 1 Patient No: [id number] ? [facility] Patient Name: DALE BETANCUR ?[facility] Age: 48 YRS ?: 1965 ?Sex:F ?[address] )[id number] ?? Adm Dt: 02/21/2014 ?[place], [place] ??[address] Created: 02/23/2014 ??0238 ?? Pt. Type: R ? Discharge Dt: 02/21/2014 ? Pathologists: Lesley Rowley MD Admit Attend Dr: SHANNAN CANTU) ? GENERAL CHEMISTRY ?Collection Date: ?02/21/14 ?Collection Time: ?1255 ? Ref Range: ?? Units: [134-143] ?? MMOL/L ? SODIUM ? 139 [3.4-5.0] ?? MMOL/L ? POTASSIUM ?5.1 H [99.0-108.0] MMOL/L ? CHLORIDE ? 104.0 [23.0-32.0] ??MMOL/L ? TOTAL CO2 ? 29.7 ?? [7-14] ?MMOL/L ? ANION GAP ? 10 ??[70-199] ?? MG/DL ?GLUCOSE ? 94 f [6.4-8.0] ?? G/DL ? TOTAL PROTEIN ?7.8 [3.3-4.5] ?? G/DL ? ALBUMIN ?4.2 [1.1-1.8] ?A/G RATIO ?1.2 [8.6-9.8] ?? MG/DL ?CALCIUM ?9.2 [0.0-1.1] ?? MG/DL ?BILI TOTAL ? 0.3 ??[44-125] ?? U/L ?ALK PHOS ? 150 H ?? [5-40] ?U/L ?AST(SGOT) ? 20 f ??[15-70] ?U/L ?ALT(SGPT) ? 36 f [6.0-23.0] ??MG/DL ?BUN ?9.0 ??[10-20] ? B/C RATIO ? 11 [0.60-1.30] ??MG/DL ?CREATININE ?0.81 Footnotes and Symbols: H = High, f = Footnote GLUCOSE (10/23/13 -- Current) Note:The glucose is assumed non fasting Fastin-99 mg/dl Random: 70-199 mg/dl Either a fasting glucose > 126 mg/dL or a random glucose > 200 mg/dL plus symptoms is diagnostic of diabetes when confirmed on another day. Fasting values > 100 mg/dl but < 125 mg/dL are diagnostic of impaired fasting glucose. New reference ranges implemented 10/01/2013. AST(SGOT) (05/02/13 -- Current) AST ??- NOTE REFERENCE RANGE CHANGE ALT(SGPT) (06/12/13 -- Current) ?? END OF CHART ? Page: ?? 2 us Historical Provider LAB BLOOD ORDERABLES Celia l Result HISTORICAL RESULTS documented in this encounter Visit Diagnoses Diagnosis Chronic cholecystitis documented in this encounter Care Teams Superintendent Generating Plant Relationship Specialty Start Date End Date Mendoza Parker MD PCP - General 03/05/13 06/02/15 documented as of this encounter
--- OUTSIDE RECORDS SUMMARY | 2024-11-19 04:55 | XMS_ITS | Encounter Summary ---
Author Organization [facility] Healthcare Address [address] [place] [address] Care Team Providers Care Skip Loader Name Role Phone Mendoza Parker MD Primary Care Provider [phone]- [phone] Encounter Details Date Type Department Care Team (Late st Contact Info) Description 04/06/2013 8:05 AM CDT - 04/06/2013 11:59 PM CDT Hospital Encounter [facility] Michelle Jade, [address] [address] Vitamin deficiency Social History Tobacco Use Types Packs/Day Years Used Date Smoking Tobacco: Former Cigarettes Q uit: 11/21/2003 Alcohol Use Standard Drinks/Week Comments No 0 (1 standard drink = 0.6 oz pur e alcohol) Comments Unknown Sex and Gender Information Value Date Recorded Sex Assigned at Not on file 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 Gender Identity Not on file Sexual Orientation Not on file documented as of this encounter Medications at Time of Discharge citalopram (CeleXA) 20 mg tablet take 1 [...] TIMES PER WEEK 42.5 0 03/07/2013 0 documented as of this encounter Plan of Treatment Not on file documented as of this encounter Procedures Procedure Name Priority Date/Time Associated Diagnosis Comments SERUM 25-HYDROXYCHOLECALCI FEROL (VITAMIN D) Routine 04/06/2013 8:37 AM CDT DISCHARGE LABORATORY CUMULATIVE REPORT Routine 04/06/2013 12:00 AM CDT documented in this encounter Results * Serum 25-hydroxycholecalciferol (vitamin D) (04/06/2013 8:37 AM CDT) 25-OH Vit D 36 30 - 80 ng/ml HISTORICAL RESULTS Serum 04/06/2013 8:37 AM CDT us Michelle Jade DO LAB BLOOD ORDERABLES Final Resu lt HISTORICAL RESULTS * Discharge Laboratory Cumulative Report (04/06/2013 12:00 AM CDT) 04/06/2013 Narrative HISTORICAL RESULTS - 04/08/2013 2:23 AM CDT Patient No: [id number] ? [facility] Patient Name: DALE BETANCUR ?[facility] Age: 47 YRS ?: 1965 ?Sex:F ?[address] )[id number] ?? Adm Dt: 04/06/2013 ?[place], [place] ??[address] Created: 04/08/2013 ??0223 ?? Pt. Type: R ? Discharge Dt: 04/06/2013 ? Pathologists: Lesley Rowley MD Admit Attend Dr: MENDOZA PARKER MD ?SPECIAL CHEMISTRY ?Collection Date: ?04/06/13 ?Collection Time: ?0837 ? Ref Range: ?? Units: ??[30-80] ?ng/mL ?25OH VITAMIN D ?36 ?? END OF CHART ? Page: ?? 1 us Historical Provider LAB BLOOD ORDERABLES Celia l Result HISTORICAL RESULTS documented in this encounter Visit Diagnoses Diagnosis Vitamin deficiency Unspecified vitamin deficiency documented in this encounter Care Teams Skip Loader Relationship Specialty Start Date End Date Mendoza Parker MD PCP - General 03/05/13 06/02/15 documented as of this encounter
--- OUTSIDE RECORDS SUMMARY | 2024-11-19 04:55 | XMS_ITS | Encounter Summary ---
Author Organization [facility] Care Team Providers Care Automobile Body Repair Chief Name Role Phone Mendoza Parker MD Primary Care Provider [phone]- [phone] Encounter Details Date Type Department Care Team (Late st Contact Info) Description 09/12/2014 10:40 AM CDT - 09/12/2014 4:00 PM CDT Hospital Encounter [facility] CL[facility]CON[facility] Becky Donald, [facility] [address] [facility] [address] [place] [address] Low back pain Social History Tobacco Use Types Packs/Day Years Used Date Smoking Tobacco: Former Cigarettes Q uit: 11/21/2003 Alcohol Use Standard Drinks/Week Comments No 0 (1 standard drink = 0.6 oz pur e alcohol) Comments Unknown Sex and Gender Information Value Date Recorded Sex Assigned at Not on file 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 Sex Female 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 Gender Identity Not on file Sexual Orientation [...] oral route every day 0 03/05/[address] (CYMBALTA) 60 mg capsule take 1 capsule by oral route maxi day 90 0 03/14/2014 8 ergocalciferol (VITAMIN D) 50,000 [...] before a meal 0 0 02/21/2014 7 omeprazole (PriLOSEC) 40 mg capsule take 1 capsule by oral route every day before a meal 90 0 03/14/2014 7 zolpidem (AMBIEN) 10 mg tablet take 1 tablet by oral route every day at bedtime as needed 0 0 03/14/2014 7 zolpidem (AMBIEN) 5 mg tablet take 1 tablet by oral route every day at bedtime 0 0 02/21/2014 7 documented as of this encounter Plan of Treatment Not on file documented as of this encounter Procedures Procedure Name Priority Date/Time Associated Diagnosis Comments XR SPINE LUMBAR 2 OR 3 VIEWS Routine 09/12/2014 10:53 AM CDT documented in this encounter Results * XR Spine Lumbar 2 or 3 Views (09/12/2014 10:53 AM CDT) Anatomical Region Laterality Modality Spine N/A Radiographic Krupa ging 09/12/2014 10:5 3 AM CDT Narrative 09/12/2014 11:05 AM CDT YINA RADFORD M.D. FINAL REPORT ACC# ??Date Time ??Exam [id number] Sep 12, 2014 10:53:00 [id number] Spine Lumbar 2 or 3 views EXAMINATION: ?Lumbar spine 2 or 3 views HISTORY: ??Lumbar spondylosis FINDINGS: ?? Two view examination lumbar spine is compared with the study from 08/02/2014. Mild L3-L4 degenerative disc disease and minimal compression deformity of the L4 superior endplate are unchanged. There is no new compression fracture or listhesis. Cholecystectomy clips are present. IMPRESSION: ?? 1. Unchanged mild L3-L4 degenerative disc disease and minimal L4 superior endplate compression deformity. Requested By: BECKY DONALD Dictated By: ?? YINA RADFORD M.D. ??on Sep 12 2014 11:05A This document has been electronically signed by: YINA RADFORD M.D. on Sep 12 2014 11:05A Procedure Note Provider, MD Kip - 03/22/2017 YINA RADFORD M.D. FINAL REPORT ACC# Date Time Exam [id number] Sep 12, 2014 10:53:00 [id number] Spine Lumbar 2 or 3 views EXAMINATION: Lumbar spine 2 or 3 views HISTORY: Lumbar spondylosis FINDINGS: Two view examination lumbar spine is compared with the study from 08/02/2014. Mild L3-L4 degenerative disc disease and minimal compression deformity of the L4 superior endplate are unchanged. There is no new compression fracture or listhesis. Cholecystectomy clips are present. IMPRESSION: 1. Unchanged mild L3-L4 degenerative disc disease and minimal L4 superior endplate compression deformity. Requested By: BECKY DONALD Dictated By: YINA RADFORD M.D. on Sep 12 2014 11:05A This document has been electronically signed by: YINA RADFORD M.D. on Sep 12 2014 11:05A us Historical Provider MD LAWSON XR PROCEDURES Final R esult documented in this encounter Visit Diagnoses Diagnosis Low back pain Lumbago documented in this encounter Care Teams Automobile Body Repair Chief Relationship Specialty Start Date End Date Mendoza Parker MD PCP - General 03/05/13 06/02/15 documented as of this encounter
--- OUTSIDE RECORDS SUMMARY | 2024-11-19 04:55 | XMS_ITS | Encounter Summary ---
Author Organization [facility] Healthcare Address [address] [place] [id number] Care Team Providers Care Pv Installer Tech Name Role Phone Mendoza Parker MD Primary Care Provider [phone] Encounter Details Date Type Department Care Team (Late st Contact Info) Description 10/18/2016 6:00 AM NURSE EMERGENCY - 10/18/2016 8:51 AM NURSE EMERGENCY Hospital Encounter [facility] Edi Garvey MD [address] [place] [id number] Slow transit constipation; Diverticulosis of intestine without perforation or abscess without bleeding Social History Tobacco Use Types Packs/Day Years Used Date Smoking Tobacco: Former Cigarettes Q uit: 11/21/2003 Alcohol Use Standard Drinks/Week Comments No 0 (1 standard drink = 0.6 oz pur e alcohol) Comments Unknown Sex and Gender Information Value Date Recorded Sex Assigned at Not on file Legal Sex Female 12:46 AM NURSE EMERGENCY Gender Identity Not on file Sexual Orientation Not on file documented as of this encounter Medications at Time of Discharge cholecalciferol (VITAMIN D3) 2,000 unit capsule take 1 by Oral route every day 0 0 08/02/2013 8 citalopram (CeleXA) 20 mg tablet take 1 tablet (20MG) by oral route every day 0 03/05/2013 8 citalopram (CeleXA) 40 mg tablet daily. 01/31/2012 8 cyclobenzaprine (FLEXERIL) 10 mg tablet take 1 tablet by oral route every bedtime 0 0 01/23/2016 7 cyclobenzaprine (FLEXERIL) 10 mg tablet take 1 tablet by oral route every bedtime 0 0 01/23/2016 7 docusate sodium (COLACE) 100 mg capsule take 1 capsule (100MG) by oral route every day at bedtime as needed 30 0 07/02/2016 7 docusate sodium (COLACE) 100 mg capsule take [...] MOUTH EVERY DAY 45 1 03/07/2015 7 nebivolol (BYSTOLIC) 5 mg tablet TAKE ONE AND ONE-HALF TABLET BY MOUTH EVERY DAY 45 1 03/07/2015 7 omeprazole (PriLOSEC) 10 mg capsule take 2 capsule by oral route every day before a meal 0 0 02/21/2014 7 omeprazole (PriLOSEC) 40 mg capsule take 1 capsule by oral route every day before a meal 90 0 03/14/2014 7 pen needle, diabetic (BD ULTRA-FINE MINI PEN NEEDLE) 31 gauge x 3/16 needle use one needle daily with Forteo Pen 06/30/2015 0 pregabalin (LYRICA) 75 mg capsule take 1 capsule by oral route 2 times every day 0 0 05/06/2016 7 pregabalin (LYRICA) 75 mg capsule take 1 capsule by oral route 2 times every day 0 0 03/07/2015 7 pregabalin (LYRICA) 75 mg capsule take 1 capsule by oral route 2 times every day 0 0 03/07/2015 0 pregabalin (LYRICA) 75 mg capsule take 1 capsule by oral route 3 times every day 0 0 03/07/2015 7 teriparatide (FORTEO) 20 mcg/dose - 600 mcg/2.4 mL injection inject 0.08 milliliter by subcutaneous route every day into the thigh or abdominal wall 0 0 08/04/2015 8 teriparatide (FORTEO) 20 mcg/dose - 600 mcg/2.4 mL injection INJECT 20mcg SUBCUTANEOUSLY ONCE DAILY. 06/30/2015 8 zolpidem (AMBIEN) 10 mg tablet take 1 [...] Procedure Name Priority Date/Time Associated Diagnosis Comments CT ABDOMEN PELVIS W CONTRAST Routine 10/18/2016 8:12 AM NURSE EMERGENCY SERUM LIPASE Routine 10/18/2016 7:12 AM NURSE EMERGENCY SERUM ESTIMATED GLOMERULAR FILTRATION RATE Routine 10/18/2016 7:12 AM NURSE EMERGENCY SERUM CHORIONIC GONADOTROPIN (HCG), QUANTITATIVE Routine 10/18/2016 7:12 AM NURSE EMERGENCY SERUM AMYLASE Routine 10/18/2016 7:12 AM NURSE EMERGENCY PLASMA COMPREHENSIVE METABOLIC PANEL Routine 10/18/2016 7:12 AM NURSE EMERGENCY BLOOD CELL COUNT (CBC) Routine 6 7:12 AM NURSE EMERGENCY BLOOD CELL MORPHOLOGIC EXAM Routine 10/18/2016 7:12 AM NURSE EMERGENCY URINE MICROSCOPY Routine 10/18/2016 6:48 AM NURSE EMERGENCY URINALYSIS Routine 10/18/2016 6:48 AM NURSE EMERGENCY DISCHARGE LABORATORY CUMULATIVE REPORT 10/18/2016 documented in this encounter Results * CT Abdomen Pelvis W Contrast (10/18/2016 8:12 AM NURSE EMERGENCY) Anatomical Region Laterality Modality Body N/A Computed Tomogra phy 10/18/2016 8:12 AM NURSE EMERGENCY Narrative 10/18/2016 12:02 [address] EMER[address]Y Mr CT Abd/Pel W ?[id number] ??Acc#: ??[id number] DATE OF EXAM: ??Oct 18 2016 CLINICAL HISTORY: Constipation. ??Generalized abdominal pain. ??History of diverticulitis. On hydrocodone daily with last bowel movement 5 days ago. RESULT: Serial transaxial images of the abdomen and pelvis obtained with 100ml Optiray 320 correlated to a previous study from 02/01/12. ??Oral contrast was also administered. There is elevation of the right hemidiaphragm similar to prior study with bibasilar and lingula atelectasis. ??Old granulomatous disease is seen within the chest. There is very mild intrahepatic biliary duct dilatation but there has been a prior cholecystectomy which is the likely explanation. ??No significant extrahepatic biliary duct dilatation is seen. There is a very small left renal cyst otherwise the kidneys, adrenal glands, pancreas and spleen are normal. There is extensive fecal material diffusely throughout the colon with the fecal material on the right and transverse colon segments appearing more liquified. ??There is also mild distension of the right and transverse colon segments. ??Left colon and sigmoid colon diverticulosis is noted but no CT changes of diverticulitis are seen. There is no free air, free fluid or adenopathy. There is a very small fat containing periumbilical hernia. The uterus is absent. Multilevel mild osteoarthritic changes of the thoracolumbar spine are noted. IMPRESSION: 1. EXTENSIVE FECAL MATERIAL DIFFUSELY THROUGHOUT THE COLON. 2. LEFT COLON AND SIGMOID COLON DIVERTICULOSIS WITHOUT CT CHANGES OF DIVERTICULITIS. 3. HYSTERECTOMY. 4. CHOLECYSTECTOMY WITH VERY MILD INTRAHEPATIC BILIARY DUCT DILATATION LIKELY ON THE BASIS OF THE PRIOR CHOLECYSTECTOMY. COMMENT: RESULTS DISCUSSED WITH DR. ELLIS 10/18/16 0819 HOURS. Interpreting Physician: ??LEN BALDWIN M.D. ??Read on: ??Oct 18 2016 ??8:28A Transcribed by: ??mrr ??On: Oct 18 2016 11:48A Approved Electronically by: ??LEN BALDWIN M.D. ??on: ??Oct 18 2016 12:02P Attending: ??EDI ELLIS Requesting: ??EDI ELLIS Requesting Fax: ??-- Attending Fax: ??-- Attending ID: ??[id number] Requesting ID: ??[id number] Report To 1 ID: ??[id number] Report To 1 Name: ??EDI ELLIS Report To 1 FAX: ??-- NextGen Order #: Procedure Note Provider, MD Kip - 03/28/[address] Abd/Pel W [id number] Acc#: [id number] DATE OF EXAM: Oct 18 2016 CLINICAL HISTORY: Constipation. Generalized abdominal pain. History of diverticulitis. Onhydrocodone daily with last bowel movement 5 days ago. RESULT: Serial transaxial images of the abdomen and pelvis obtained with 100mlOptiray 320 correlated to a previous study from 02/01/12. Oral contrastwas also administered. There is elevation of the right hemidiaphragmsimilar to prior study with bibasilar and lingula atelectasis. Oldgranulomatous disease is seen within the chest. There is very mildintrahepatic biliary duct dilatation but there has been a priorcholecystectomy which is the likely explanation. No significantextrahepatic biliary duct dilatation is seen. There is a very small leftrenal cyst otherwise the kidneys, adrenal glands, pancreas and spleen arenormal. There is extensive fecal material diffusely throughout the colonwith the fecal material on the right and transverse colon segmentsappearing more liquified. There is also mild distension of the right andtransverse colon segments. Left colon and sigmoid colon diverticulosis isnoted but no CT changes of diverticulitis are seen. There is no free air,free fluid or adenopathy. There is a very small fat containing periumbilical hernia.The uterus is absent. Multilevel mild osteoarthritic changes of thethoracolumbar spine are noted. IMPRESSION: 1. EXTENSIVE FECAL MATERIAL DIFFUSELY THROUGHOUT THE COLON. 2. LEFT COLON AND SIGMOID COLON DIVERTICULOSIS WITHOUT CT CHANGES OFDIVERTICULITIS. 3. HYSTERECTOMY. 4. CHOLECYSTECTOMY WITH VERY MILD INTRAHEPATIC BILIARY DUCT DILATATIONLIKELY ON THE BASIS OF THE PRIOR CHOLECYSTECTOMY. COMMENT: RESULTS DISCUSSED WITH DR. ELLIS 10/18/16 0819 HOURS. Interpreting Physician: LEN BALDWIN M.D. Read on: Oct 18 2016 8:28A Transcribed by: alex On: Oct 18 2016 11:48A Approved Electronically by: LEN BALDWIN M.D. on: Oct 18 2016 12:02P Attending: EDI ELLIS Requesting: EDI ELLIS Requesting Fax: -- Attending Fax: -- Attending ID: [id number] Requesting ID: [id number] Report To 1 ID: [id number] Report To 1 Name: EDI ELLIS Report To 1 FAX: -- NextGen Order #: us Historical Provider MD [facility] CT PROCEDURES Final R esult * (ABNORMAL) Plasma comprehensive metabolic panel (10/18/2016 7:12 AM NURSE EMERGENCY) Sodium 140 135 - 145 mmol/L CDR HISTORICAL RESULTS K, pl 4.0 3.5 - 5.1 mmol/L CDR HISTORICAL RESULTS Chloride 102 97 - 110 mmol/L CDR HISTORICAL RESULTS CO2 26 22 - 32 mmol/L CDR HISTORICAL RESULTS A. gap 16 8 - 16 mmol/L CDR HISTORICAL RESULTS Glucose 147 70 - 199 mg/dl CDR HISTORICAL RESULTS Comment: Interpretive Data Note:The glucose is assumed non fasting Fastin-99 mg/dL Random: ??70-199 mg/dL Either a fasting glucose > 126 mg/dL or a random glucose > 200 mg/dL plus symptoms is diagnostic of diabetes when confirmed on another day. Fasting values > 100 mg/dL but < 125 mg/dL are diagnostic of impaired fasting glucose. Current interpretive data was last revised on 2015. BUN 17.4 8.0 - 25.0 mg/dl CDR HISTORICAL RESULTS Creatinine 0.69 0.60 - 1.10 mg/dl CDR HISTORICAL RESULTS BUN/creat ratio 25(H) 10 - 20 CDR HISTORICAL RESULTS Calcium 9.2 8.6 - 10.2 mg/dl CDR HISTORICAL RESULTS Protein, sr 7.0 6.0 - 8.4 g/dl CDR HISTORICAL RESULTS Alb 4.1 3.6 - 5.0 g/dl CDR HISTORICAL RESULTS Alk phos 151(H) 40 - 130 Units/L CDR HISTORICAL RESULTS ALT 25 5 - 45 Units/L CDR HISTORICAL RESULTS AST 19 10 - 40 Units/L CDR HISTORICAL RESULTS Bilirubin <0.2 <=1.2 mg/dl CDR HISTORICAL RESULTS Plasma 10/18/2016 7:12 AM NURSE EMERGENCY us Historical Provider LAB BLOOD ORDERABLES Celia desai Result CDR HISTORICAL RESULTS * Serum chorionic gonadotropin (HCG), quantitative (10/18/2016 7:12 AM NURSE EMERGENCY) HCG, quant <5.0 0.0 - 5.0 IUnits/L CDR HISTORICAL RESULTS Comment: Interpretive Data Negative: ? <5 mIU/mL ? Borderline: ??6-25 mIU/mL Positive: ? >25 mIU/mL Approx Gest Age ? Approx HCG Concentration 3 - 4 Weeks ?9 - 130 4 - 5 Weeks ?75 - 2600 5 - 6 Weeks ?850 - 20,800 6 - 7 Weeks ?4000 - 100,200 7 - 12 Weeks ? 33054 - 289,000 16 - 29 Weeks ? 65352 - 137,000 29 - 41 Weeks ? 900 - 60,000 Current interpretive data was last revised on 2015 Serum 10/18/2016 7:12 AM NURSE EMERGENCY Historical Provider MD LAB BLOOD ORDERABLES Celia l Result Performing Organization Address [facility] Co de Phone Number CDR HISTORICAL RESULTS * Serum lipase (10/18/2016 7:12 AM NURSE EMERGENCY) Lip 19 10 - 70 Units/L CDR HISTORICAL RESULTS Serum 10/18/2016 7:12 AM NURSE EMERGENCY Historical Provider MD LAB BLOOD ORDERABLES Celia l Result Performing Organization Address [place]/[facility] Co de Phone Number CDR HISTORICAL RESULTS * (ABNORMAL) Blood cell count (CBC) (10/18/2016 7:12 AM NURSE EMERGENCY) WBC 13.7(H) 3.8 - 9.8 K/cumm CDR HISTORICAL RESULTS RBC 4.73 3.90 - 5.00 M/cumm CDR HISTORICAL RESULTS Hgb 13.8 12.1 - 15.1 g/dl CDR HISTORICAL RESULTS Hct 41.2 36.1 - 44.3 % CDR HISTORICAL RESULTS MCV 87.1 80.0 - 100.0 fl CDR HISTORICAL RESULTS MCH 29.2 26.7 - 33.7 pg CDR HISTORICAL RESULTS MCHC 33.5 32.7 - 36.0 g/dl CDR HISTORICAL RESULTS Rdw 13.6 11.5 - 14.6 % CDR HISTORICAL RESULTS Platelets 323 140 - 440 K/cumm CDR HISTORICAL RESULTS MPV 9.8 8.0 - 12.0 fl CDR HISTORICAL RESULTS NRBC 0.0 0.0 - 0.0 % CDR HIST ORICAL RESULTS NRBC, abs 0.00 0.00 - 0.00 K/cumm CDR HISTORICAL RESULTS Blood specimen (specimen) 10/18/2016 7:12 AM NURSE EMERGENCY Result [facility] Historical Provider LAB BLOOD ORDERABLES Celia desai Result Performing Organization Address [facility] de Phone Number CDR HISTORICAL RESULTS * Serum amylase (10/18/2016 7:12 AM NURSE EMERGENCY) Lala, pl 44 30 - 100 Units/L CDR HISTORICAL RESULTS Serum 10/18/2016 7:12 AM NURSE EMERGENCY Result [facility] Historical Provider LAB BLOOD ORDERABLES Celia l Result Performing Organization Address [facility] de Phone Number CDR HISTORICAL RESULTS * (ABNORMAL) Blood cell morphologic exam (10/18/2016 7:12 AM NURSE EMERGENCY) Neutrophils 81.2(H) 44.0 - 80.0 % CDR HISTORICAL RESULTS Immature granulocytes 0.4 0.0 - 1.0 % CDR HISTORICAL RESULTS Lymphocytes 14.1 13.0 - 44.0 % CDR HISTORICAL RESULTS Monos 3.7 2.0 - 11.0 % CDR HISTORICAL RESULTS Eosinophils 0.2 0.0 - 6.0 % CDR HISTORICAL RESULTS Basophils 0.4 0.0 - 3.0 % CDR HISTORICAL RESULTS Neutrophils, abs 11.1(H) 1.6 - 7.0 K/cumm CDR HISTORICAL RESULTS Immature granulocyte, abs 0.1 0.0 - 0.2 K/cumm CDR HISTORICAL RESULTS Lymphocytes, abs 1.9 0.5 - 4.3 K/cumm CDR HISTORICAL RESULTS Monocytes, absolute 0.5 0.1 - 1.0 K/cumm CDR HISTORICAL RESULTS Eosinophils, abs 0.0 0.0 - 0.6 K/cumm CDR HISTORICAL RESULTS Basophils, abs 0.0 0.0 - 0.3 K/cumm CDR HISTORICAL RESULTS Blood specimen (specimen) 10/18/2016 7:12 AM NURSE EMERGENCY Historical Provider LAB BLOOD ORDERABLES Celia l Result Performing Organization Address [facility]/State/ZIP Co de Phone Number CDR HISTORICAL RESULTS * Serum estimated glomerular filtration rate (10/18/2016 7:12 AM NURSE EMERGENCY) eGFR >60 ml/min/1.7 3 m2 CDR HISTORICAL RESULTS Comment: Interpretation of Estimated GFR (eGFR): Normal ?>/= 60 mL/min/1.73m2 Possible Chronic Kidney Disease ??15 - 59 mL/min/1.73m2 Possible Kidney Failure ?< 15 ??mL/min/1.73m2 If -[place] multiply value by 1.16. ??Estimated glomerular filtration rate is determined by the CKD-EPI equation recommended by the National Kidney Foundation (KDIGO 2012 Clinical Practice Guideline for the Evaluation and Management of Chronic Kidney Disease. ??Kidney Intnl Suppl Nov 2012;3:1). ??The CKD-EPI equation should not be used in acute renal failure or acute kidney injury and is not valid in children. Serum 10/18/2016 7:12 AM NURSE EMERGENCY [place] Historical Provider LAB BLOOD ORDERABLES Celia desai Result CDR HISTORICAL RESULTS * (ABNORMAL) Urinalysis (10/18/2016 6:48 AM NURSE EMERGENCY) Color, ur Dark Yellow Yellow CDR HISTORICAL RESULTS Clarity, ur Clear Clear CDR HISTORICAL RESULTS Specific gravity, ur >1.030(A) 1.003 - 1.030 CDR HISTORICAL RESULTS Comment:Normal Ranges: 1.003 -1.030 pH, ur 5.5 4.5 - 8.0 CDR HISTORICAL RESULTS Comment:Normal ranges: 4.5-8 .0 Protein, ur, quant 30 Negative mg/dl CDR HISTORICAL RESULTS Glucose, ur, quant Negative Negative mg/dl CDR HISTORICAL RESULTS Ketones, ur Trace(A) Negative CDR HISTORICAL RESULTS Bilirubin, ur Negative Negative CDR HISTORICAL RESULTS U Blood Negative Negative CDR HISTORICAL RESULTS Urobilinogen, quant, ur 0.2 0.2 - 1.0 Myron Units/dl CDR HISTORICAL RESULTS Comment:Normal Ranges: 0.2-1 .0 EU/dL Nitrites, ur Negative Negative CDR HISTORICAL RESULTS Leukocyte esterase, ur Small(A) Negative CDR HISTORICAL RESULTS Urine 10/18/2016 6:48 AM NURSE EMERGENCY [facility] Provider MD LAB BLOOD ORDERABLES Celia l Result Performing Organization Address [place]/[facility] Co de Phone Number CDR HISTORICAL RESULTS * (ABNORMAL) Urine microscopy (10/18/2016 6:48 AM NURSE EMERGENCY) RBC, ur 0 - 2 0 - 2 /hpf CDR HISTORICAL RESULTS WBC, ur 0 - 2 0 - 2 /hpf CDR HISTORICAL RESULTS Bacteria, ur Negative Negative CDR HISTORICAL RESULTS Hyaline casts 5 - 10(A) 0 - 2 /lpf CDR HISTORICAL RESULTS Calcium oxalate crystals, ur Moderate(A) Not Seen CDR HISTORICAL RESULTS Epithelial cells, ur 5 - 10(A) 0 - 2 /hpf CDR HISTORICAL RESULTS Urine 10/18/2016 6:48 AM NURSE EMERGENCY [facility] Provider LAB BLOOD ORDERABLES Celia l Result Performing Organization Address [facility] de Phone Number CDR HISTORICAL RESULTS * DISCHARGE LABORATORY CUMULATIVE REPORT (10/18/2016) Narrative 10/18/2016 Ordered by an unspecified provider. [facility] Provider LAB BLOOD ORDERABLES Celia l Result documented in this encounter Visit Diagnoses Diagnosis Slow transit constipation Diverticulosis of intestine without perforation or abscess without bleeding documented in this encounter Care Teams Pv Installer Tech Relationship Specialty Start Date End Date Mendoza Parker MD PCP - General 11/18/15 02/17/17 documented as of this encounter
--- OUTSIDE RECORDS SUMMARY | 2024-11-19 04:55 | XMS_ITS | Encounter Summary ---
Author Organization [facility] Healthcare Address [address] [place] [id number] Care Team Providers Care Power Wood Sawyer Name Role Phone Mendoza Parker MD Primary Care Provider [phone]- [phone] Encounter Details Date Type Department Care Team (Late st Contact Info) Description 01/05/2013 9:35 AM PUBLICITY MANAGER - 01/05/2013 12:00 PM PUBLICITY MANAGER Hospital Encounter [facility] Polina Webber MD [address] [place] [id number] Special screening for malignant neoplasms, colon; Diverticulosis of colon; Other specified disorders of intestines; Internal hemorrhoids; Other symptoms involving digestive system; Essential hypertension Social History Tobacco Use Types Packs/Day Years Used Date Smoking Tobacco: Never Assessed Comments Unknown Sex and Gender Information Value Date Recorded Sex Assigned at Not on file Legal Sex Female 12:46 AM PUBLICITY MANAGER Gender Identity Not on file Sexual Orientation Not on file documented as of this encounter Medications at Time of Discharge citalopram (CeleXA) 40 mg tablet daily. 01/31/2012 05/11/2018 ergocalciferol (VITAMIN D) 50,000 unit capsule TAKE ONE CAPSULE ONCE A WEEK FOR 8 WEEKS 04/25/2012 11/16/2018 documented as of this encounter Procedure Notes * ProviderKip MD - 01/05/2013 12:00 AM CSTAssociated Order(s): COLONOSCOPY PROCEDURE REPORT Patient: DALE BETANCUR. Account: [id number] Room No: : 1965 Patient Type: SDS Attend.: Polina Otoole M.D. Admit Date: 01/05/2013 Dict.: Polina Otoole M.D. Disch. Date: 01/05/2013 PROCEDURE PERFORMED: Colonoscopy with biopsy. INDICATION: Change in bowel habits, abdominal pain. DATE OF PROCEDURE: 01/05/2013 PRIMARY CARE PHYSICIAN: Dr. Mendoza Parker. BRIEF HISTORY AND PHYSICAL: The patient is a pleasant 47-year-old white female with complaint of chronic pain in the lower part of the abdomen. She has history of diverticulitis. She had recent change in her bowel habits. Colonoscopy is being done for evaluation. PROCEDURE: Sedation was provided by anesthesia service. The procedure of colonoscopy including indications and possible complications of bleeding, infection and perforation requiring surgery were discussed with the patient and consent was obtained. Rectal exam prior to colonoscopy was unremarkable. The scope introduced into the rectum and advanced all the way to the cecum which was identified by the ileocecal valve and appendiceal orifice. The terminal ileum was intubated. There were a few dark color changes suggestive of melanosis coli. Otherwise the cecum, ascending colon and transverse colon were unremarkable. Moderate diverticulosis noted in the sigmoid colon and a few in the descending colon. Random colon biopsy was performed to rule out melanosis coli. Otherwise, no significant inflammatory changes noted. The rectum was unremarkable. Retroflexion in the rectum showed small internal hemorrhoids. IMPRESSION: 1. Diverticulosis in the colon with no inflammatory changes. 2. Melanosis coli. 3. Small internal hemorrhoids. RECOMMENDATIONS: 1. Follow up pathology report. 2. Follow up in my office as scheduled. Dahiana Quinones/ramya TD: 01/05/2013 15:11 CC: Mendoza Parker M.D. Authenticated and Edited by Polina Otoole MD On 01/12/13 8:37:50 AM documented in this encounter Plan of Treatment Not on file documented as of this encounter Procedures Procedure Name Priority Date/Time Associated Diagnosis Comments SURGICAL PATHOLOGY REPORT Routine 01/05/2013 1:23 PM PUBLICITY MANAGER DISCHARGE LABORATORY CUMULATIVE REPORT Routine 01/05/2013 12:00 AM PUBLICITY MANAGER COLONOSCOPY 01/05/2013 12:00 AM PUBLICITY MANAGER documented in this encounter Results * Surgical Pathology Report (01/05/2013 1:23 PM PUBLICITY MANAGER) 01/05/2013 1:23 PM PUBLICITY MANAGER Narrative HISTORICAL RESULTS - 01/08/2013 12:10 PM PUBLICITY MANAGER [facility] Patient No: [id number] Patient Name: DALE BETANCUR )[id number] Age: 47 YRS ?? : 1965 Admit Phys: POLINA OTOOLE MD Case #: [id number] ? Date: 01/05/13 SPECIMEN SOURCE: ? Random colon biopsy (dark discoloration). CLINICAL INFORMATION AND IMPRESSION: ? 47 year old female with lower abdominal pain and change in ? bowel habits. ??Colonoscopy. GROSS DESCRIPTION: ? The specimen is submitted in one container labeled Dale ? Passig and colon bx. It is submitted in formalin and ? consists of six fragments of white-buchanan soft tissue that ? measure up to 0.2 cm in maximum dimensions. ??All submitted in ? one cassette. ??JEFFERY/jw/lm MICROSCOPIC DESCRIPTION: ? Microscopic examination of the random colon biopsy shows ? patchy deposition of darkly pigmented macrophages within the ? lamina propria. ??There is minimal chronic inflammation. ? There is no dysplasia or malignancy seen. ?? JEFFERY/lm DIAGNOSIS: ? LARGE INTESTINE, RANDOM COLON, ENDOSCOPIC BIOPSY ? -PATCHY MELANOSIS COLI ? -NO SIGNIFICANT INFLAMMATION ? -NO DYSPLASIA OR MALIGNANCY SEEN ? [id number], [id number], [id number], [id number], [id number], [id number] ? Pathologist: RENA MICHELLE M.D. ??Electronic ?signature ? JKD JKD/LM 01/08/13 us Historical Provider MD LAB PATHOLOGY ORDERABLES Final Result HISTORICAL RESULTS * Discharge Laboratory Cumulative Report (01/05/2013 12:00 AM PUBLICITY MANAGER) 01/05/2013 Narrative HISTORICAL RESULTS - 01/09/2013 2:20 AM PUBLICITY MANAGER Patient No: [id number] ? [facility] Patient Name: DALE BETANCUR ?[facility] Healthcare Age: 47 YRS ?: 1965 ?Sex:F ?[address] )[id number] ?? Adm Dt: 01/05/2013 ?[place], [place] ??[address] Created: 01/09/2013 ??0220 ?? Pt. Type: U ? Discharge Dt: 01/05/2013 ? Pathologists: Lesley Rowley MD Admit Dr. Christopher Hollingsworth: POLINA OTOOLE MD ?S U R G I C A L ?P A T H O L O G Y ?R E P O R T ? Case #: ?[id number] ? Date: 01/05/13 SPECIMEN SOURCE: ? Random colon biopsy (dark discoloration). CLINICAL INFORMATION AND IMPRESSION: ? 47 year old female with lower abdominal pain and change in bowel habits. ? Colonoscopy. GROSS DESCRIPTION: ? The specimen is submitted in one container labeled Dale Betancur and colon ? bx. It is submitted in formalin and consists of six fragments of white-buchanan ? soft tissue that measure up to 0.2 cm in maximum dimensions. ??All submitted in ? one cassette. ??JEFFERY/jw/lm MICROSCOPIC DESCRIPTION: ? Microscopic examination of the random colon biopsy shows patchy deposition of ? darkly pigmented macrophages within the lamina propria. ??There is minimal ? chronic inflammation. ??There is no dysplasia or malignancy seen. ?? JEFFERY/lm DIAGNOSIS: ? LARGE INTESTINE, RANDOM COLON, ENDOSCOPIC BIOPSY ? -PATCHY MELANOSIS COLI ? -NO SIGNIFICANT INFLAMMATION ? -NO DYSPLASIA OR MALIGNANCY SEEN ? [id number], [id number], [id number], [id number], [id number], [id number] ? Pathologist: RENA MICHELLE M.D. ??Electronic ?signature ? JKD JKD/LM 01/08/13 ?? END OF CHART ? Page: ?? 1 us Historical Provider LAB BLOOD ORDERABLES Celia l Result HISTORICAL RESULTS * COLONOSCOPY (01/05/2013 12:00 AM PUBLICITY MANAGER) Anatomical Region Laterality Modality Other Narrative 01/05/2013 12:00 AM PUBLICITY MANAGER Ordered by an unspecified provider. Procedure Note Provider, MD Kip - 01/05/2013 12:00 AM CST PROCEDURE REPORT Patient: DALE BETANCUR Account: [id number] Room No: : 1965 Patient Type: [facility] Attend.: Polina Otoole M.D. Admit Date: 01/05/2013 Dict.: Polina Otoole M.D. Disch. Date:01/05/2013 PROCEDURE PERFORMED: Colonoscopy with biopsy. INDICATION: Change in bowel habits, abdominal pain. DATE OF PROCEDURE: 01/05/2013 PRIMARY CARE PHYSICIAN: Dr. Mendoza Parker. BRIEF HISTORY AND PHYSICAL: The patient is a pleasant 47-year-old whitefemale with complaint of chronic pain in the lower part of the abdomen. Shehas history of diverticulitis. She had recent change in her bowel habits. Colonoscopy is being done for evaluation. PROCEDURE: Sedation was provided by anesthesia service. The procedureof colonoscopy including indications and possible complications ofbleeding, infection and perforation requiring surgery were discussed with thepatient and consent was obtained. Rectal exam prior to colonoscopy wasunremarkable. The scope introduced into the rectum and advanced all the way to thececum which was identified by the ileocecal valve and appendiceal orifice.The terminal ileum was intubated. There were a few dark color changessuggestive of melanosis coli. Otherwise the cecum, ascending colon and transversecolon were unremarkable. Moderate diverticulosis noted in the sigmoid colon tarun few in the descending colon. Random colon biopsy was performed to ruleout melanosis coli. Otherwise, no significant inflammatory changes noted.The rectum was unremarkable. Retroflexion in the rectum showed smallinternal hemorrhoids. IMPRESSION: 1. Diverticulosis in the colon with no inflammatory changes. 2. Melanosis coli. 3. Small internal hemorrhoids. RECOMMENDATIONS: 1. Follow up pathology report. 2. Follow up in my office as scheduled. Dahiana Quinones/ramya TD: 01/05/2013 15:11 CC: Mendoza Parker M.D. Authenticated and Edited by Polina Otoole MD On 01/12/13 8:37:50 AM Historical Provider ENDOSCOPY PROCEDURES Celia l Result documented in this encounter Visit Diagnoses Diagnosis Special screening for malignant neoplasms, colon Diverticulosis of colon Diverticulosis of colon (without mention of hemorrhage) Other specified disorders of intestines Internal hemorrhoids Internal hemorrhoids without mention of complication Other symptoms involving digestive system Essential hypertension Unspecified essential hypertension documented in this encounter Care Teams Power Wood Sawyer Relationship Specialty Start Date End Date Mendoza Parker MD PCP - General 08/20/08 03/04/13 documented as of this encounter
--- OUTSIDE RECORDS SUMMARY | 2024-11-19 04:55 | XMS_ITS | Encounter Summary ---
Author Organization [facility] Facility Care Team Providers Care Metal Solderer Name Role Phone Mendoza Parker MD Primary Care Provider [phone]- [phone] Encounter Details Date Type Department Care Team (Late st Contact Info) Description 10/06/2015 - 10/06/2015 11:59 PM PNEUMATIC RIVETER Hospital Encounter [facility] Urbano Whitney MD [address] [place] [address] Other specified disorders of bone density and structure, unspecified site; Personal history of nicotine dependence Social History Tobacco Use Types Packs/Day Years Used Date Smoking Tobacco: Former Cigarettes Q uit: 11/21/2003 Alcohol Use Standard Drinks/Week Comments No 0 (1 standard drink = 0.6 oz pur e alcohol) Comments Unknown Sex and Gender Information Value Date Recorded Sex Assigned at Not on file Legal Sex Female 12:46 AM PNEUMATIC RIVETER Gender Identity Not on file Sexual Orientation [...] Name Priority Date/Time Associated Diagnosis Comments SERUM CALCIUM Routine 10/06/2015 7:38 AM PNEUMATIC RIVETER DISCHARGE LABORATORY CUMULATIVE REPORT 10/06/2015 documented in this encounter Results * Serum calcium (10/06/2015 7:38 AM PNEUMATIC RIVETER) Calcium 9.7 8.6 - 10.3 mg/dl HISTORICAL RESULTS Serum 10/06/2015 7:38 AM PNEUMATIC RIVETER Narrative HISTORICAL RESULTS - 10/06/2015 9:44 AM PNEUMATIC RIVETER Client / Account bill? No Client Account Number and Description: us Urbano Delacruz MD LAB BLOOD ORDERABLES Final Resu lt HISTORICAL RESULTS * DISCHARGE LABORATORY CUMULATIVE REPORT (10/06/2015) Narrative 10/06/2015 Ordered by an unspecified provider. us Historical Provider LAB BLOOD ORDERABLES Celia l Result documented in this encounter Visit Diagnoses Diagnosis Other specified disorders of bone density and structure, unspecified site Personal history of nicotine dependence documented in this encounter Care Teams Metal Solderer Relationship Specialty Start Date End Date Mendoza Parker MD PCP - General 06/03/15 11/17/15 documented as of this encounter
--- OUTSIDE RECORDS SUMMARY | 2024-11-19 04:55 | XMS_ITS | Encounter Summary ---
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 Name Role Phone Mendoza Parker MD Primary Care Provider [phone] Encounter Details Date Type Department Care Team (Late st Contact Info) Description 05/20/2015 4:54 PM CDT - 05/21/2015 5:40 PM CDT Hospital Encounter [facility] Amalia Beckford MD [address] [place] [id number] Closed trimalleolar fracture; Accidental fall on or from other stairs or steps; Place of occurrence, home; Other depressive disorder; Essential hypertension; Irritable colon; Myalgia and myositis; Osteoporosis; History of allergy to other antibiotic agent; Personal history of allergy to narcotic agent; History of allergy to other specified medicinal agents Social History Tobacco Use Types Packs/Day Years Used Date Smoking Tobacco: Former Cigarettes Q uit: 11/21/2003 Alcohol Use Standard Drinks/Week Comments No 0 (1 standard drink = 0.6 oz pur e alcohol) Comments Unknown Sex and Gender Information Value Date Recorded Sex Assigned at Not on file 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 Gender Identity Not on file Sexual Orientation Not on file documented as of this encounter Last Filed Vital Signs Vital Sign Reading Time Taken Comments Blood Pressure 133/80 05/21/2015 4:00 PM CDT Pulse 102 05/21/2015 4:00 PM CDT Temperature - - Respiratory Rate - - Oxygen Saturation - - Inhaled Oxygen Concentration - - Weight 81.2 kg (179 lb 0.2 oz) 05/21/2015 8:13 A M CDT Height 152.4 cm (5') 05/21/2015 8:13 AM CDT Body Mass Index 34.96 05/21/2015 8:13 AM CDT documented in this encounter Medications [...] before a meal 90 0 03/14/2014 7 pregabalin (LYRICA) 75 mg capsule take 1 capsule by oral route 2 times every day 0 0 03/07/2015 7 pregabalin (LYRICA) 75 mg capsule take 1 capsule by oral route 2 times every day 0 0 03/07/2015 0 pregabalin (LYRICA) 75 mg capsule take 1 capsule by oral route 3 times every day 0 0 03/07/2015 7 zolpidem (AMBIEN) 10 mg tablet take 1 tablet by oral route every day at bedtime as needed 0 0 03/14/2014 7 zolpidem (AMBIEN) 5 mg tablet take 1 tablet by oral route every day at bedtime 0 0 02/21/2014 7 documented as of this encounter H&P Notes * Provider, MD Kip - 05/20/2015 12:00 AM CDT HISTORY AND PHYSICAL Patient: DALE BETANCUR Account: [id number] Room No: G645-01 : 1965 Patient Type: [facility] Attend.: Amalia Beckford M.D. Admit Date: 05/20/2015 Dict.: Amalia Beckford M.D. Disch. Date: PRIMARY CARE PHYSICIAN: Dr. Mendoza Parker. CHIEF COMPLAINT: Right ankle pain. HISTORY OF PRESENT ILLNESS: The patient is a 49-year-old, hypertensive, white female with fibromyalgia, osteoporosis who states that the day of admission she was going down some basement stairs and was about to the last stair, twisted her ankle and fell and immediately had pain in the ankle. She had no other trauma or other pain or loss of consciousness. She had no lightheadedness or dizziness with the episode. was there and contacted the ambulance who brought her to the emergency room for evaluation. Here she was found to have a bimalleolar fracture of the ankle and was admitted for surgical intervention. Prior to the present episode she said she had been feeling fine. She has had no lightheadedness, no dizziness, no chest pain, no other symptomatology. She about six months ago had a Reclast injection infusion for osteoporosis. MEDICATIONS: Her medications on admission included: 1. Ambien h.s. as needed. 2. Cyclobenzaprine 15 daily. 3. Bystolic 5 daily. 4. Celexa 40 daily. 5. Cymbalta 30 daily. 6. Linzess 143 micrograms daily. 7. Lyrica 75 b.i.d. 8. Reclast infusion yearly. PAST MEDICAL HISTORY: Remarkable for: 1. Total abdominal hysterectomy and bilateral salpingo-oophorectomy about 5 years for fibroids benign. 2. She had a laparoscopic cholecystectomy in 2013 at [facility]. 3. She had a tonsillectomy back in 1988. 4. She had an appendectomy in 2006. 5. She has a history of fibromyalgia and osteoporosis. 6. She has had history of depression. SOCIAL HISTORY: Previous smoker but has not smoked for 12 to 14 years. No ETOH or illicit drugs. She lives with her . FAMILY HISTORY: Her father had coronary artery disease but he has lived to age 94. Mother at age 38 of some type of carcinoma but she was not sure. She was only a 1-year-old at the time. She has three children herself. They are living and well. REVIEW OF SYSTEMS: Constitutional: She said her weight has gone up slightly over the last year. Appetite okay. Eyes: No double vision, scotoma. Mouth: No pharyngitis, laryngitis. Pulmonary: No increased shortness of breath, wheezing or cough. CV: No chest pain, palpitation. : No dysuria. No hematuria. Musculoskeletal: No particular joint discomfort. Integument: No skin breakdown or rashes. Neuropsyche: No seizures. No syncope. She has had problems with chronic constipation. Colonoscopy within the last couple of years revealed only diverticular disease. ALLERGIES: She says when she was taking both Cipro and Flagyl simultaneously, she developed rash so is not sure exactly what caused it. PHYSICAL EXAMINATION: This a.m. blood pressure is 130/70, left arm lying. Pulse is 86. She is afebrile. Neck: No adenopathy, thyromegaly, carotid bruits. Lungs are clear. CV: No murmurs, gallops, rubs or clicks. Abdomen is soft, nontender. No masses. Extremities: Right leg is wrapped thoroughly in a splint. Can palpate the dorsalis pedis on the right foot and it is palpable and strong. Left dorsalis pedis and posterior tibial 2+ and symmetrical. Neurologically she is alert. She is oriented. Cranial nerves intact. No focal neurological deficits. LABORATORY: Hemoglobin 12, hematocrit 38, white count 9, 71 segs, platelets are 283. Sodium 142, potassium 4.5, chloride 104, total CO2 of 30, glucose 104, BUN 12, creatinine 0.74. LFTs all normal. Her x-ray showed the bimalleolar fracture ASSESSMENT: 1. Bimalleolar closed fracture right ankle. To surgery today for open reduction and internal fixation by Dr. Moreau and his team. Anticipate she will probably be able to be discharged later today. 2. Hypertension. Well controlled. Continue the low dose Bystolic. 3. History of irritable bowel syndrome, fibromyalgia, depression. Continue her several different medications, i.e. Lyrica, muscle relaxants, and depressants. She is considered low risk and should not have any problem with surgery. We will be available for any medical problems if any arise. Deep venous thrombosis prophylaxis will be early ambulation. She will be up and probably be discharged later today. She will be less than a 48 hour stay. Amalia Beckford M.D. LUCIANO/ramya TD: 05/21/2015 08:23 CC: Mendoza Parker M.D. Addendum: Post op course uneventfull and discharged home to follow up with Dr Moreau in 10 days. Electronically Authenticated and Edited by: Amalia Beckford MD On 05/21/2015 03:51 PM CDT documented in this encounter Consult Notes * Provider, MD Kip - 05/21/2015 12:00 AM CDT CONSULTATION REPORT Patient: DALE BETANCUR Account: [id number] Room No: G645-01 : 1965 Patient Type: SDS Attend.: Amalia Beckford M.D. Admit Date: 05/20/2015 Consult: David Moreau M.D. Disch. Date: DATE OF CONSULTATION: 05/21/2015 HISTORY OF PRESENT ILLNESS: The patient is a very pleasant 49-year-old female who sustained a fall at her home when she was descending the stairs, rolling her right ankle. She was brought to [facility], was found to have a dislocated right ankle fracture including both medial and lateral malleoli. She was admitted to the service of the hospitalist and orthopedic services were consulted. Closed reduction was attempted and now she is resting comfortably in a posterior molded splint. ALLERGIES: 1. Cipro. 2. Codeine. 3. Flagyl. MEDICATIONS 1. Cymbalta 30 mg daily. 2. Lyrica 75 mg p.o. b.i.d. 3. Bystolic 5 mg p.o. daily. 4. Ambien p.o. 10 mg at bedtime prn 5. Lens___ oral 142 mg daily. 6. Celexa 40 mg daily. 7. Reclast IV yearly. 8. Flexeril 10 mg t.i.d. 9. Amerax 15 mg daily. PAST MEDICAL HISTORY 1. Depression. 2. Fibromyalgia. 3. Hypertension. 4. Osteoporosis. PAST SURGICAL HISTORY 1. Appendectomy. 2. Cholecystectomy. 3. Hysterectomy. 4. x3. 5. Tonsillectomy. FAMILY HISTORY: Noncontributory. SOCIAL HISTORY: She is . She lives with her . She denies smoking. She denies chronic alcohol use. She is independent with her ADLs and currently applying for disability status. REVIEW OF SYSTEMS: She denies head trauma during her fall, loss of consciousness. She denies headache, blurred vision, dizziness, shortness of breath, chest pain, nausea and vomiting, fevers or chills, numbness or tingling in the extremities. No bowel or bladder issues. No upper or lower respiratory symptoms at this time. IMAGING: Pre and post reduction films were performed of the right ankle demonstrating a displaced bimalleolar fracture. Post reduction films show the ankle within an acceptable position with incomplete reduction. LABORATORY VALUES: Her white blood cell count is 9.1, hemoglobin and hematocrit 12.2 and 38.0. Creatinine 0.74. INR is 0.92. GFR is greater than 60. PHYSICAL EXAMINATION: She is alert and oriented x3. She is resting comfortably in her bed in no acute distress. Her vital signs are stable. The toes are visualized through the splint. I am able to palpate a normal dorsalis pedal pulse on the right lower quadrant. She has normal capillary refill and full sensation of all five digits of the right foot. She has a negative calf squeeze on the left size. ASSESSMENT: Right ankle bimalleolar fracture. PLAN: The patient has been seen and evaluated by Dr. Beckford and will be cleared medically for open reduction and internal fixation of the right ankle to be done by Dr. Moreau this morning. The risks and benefits of surgery have been discussed with the patient, and she verbalized an understanding of these risks and benefits and has signed an informed consent. She will be discharged to home later today as long as she is tolerating orals and food. Pain medications as well antinausea medication and stool softener and aspirin will be provided to the patient upon her discharge to home. She will be nonweightbearing on the right lower extremity for a minimum of eight weeks. This has been explained to her. All of her questions and concerns were addressed, as well as her husbands, who was present at the bedside. Thank you for allowing us to participate in this patient's care. David Moreau M.D. Dictated by: Mary Robison, A.T.C. SUDARSHAN/ TD: 05/21/2015 07:58 Electronically Authenticated by: David Moreau MD On 05/26/2015 01:40 PM CDT documented in this encounter Miscellaneous Notes * Op Note - Provider, MD Kip - 05/21/2015 12:00 AM CDT OPERATIVE REPORT Patient: DALE BETANCUR Account: [id number] Room No: G645-01 : 1965 Patient Type: SDS Attend.: Amalia Beckford M.D. Admit Date: 05/20/2015 Surg.: David Moreau M.D. Disch. Date: DATE OF OPERATION May 21, 2015 PREOPERATIVE DIAGNOSIS Right trimalleolar ankle fracture. POSTOPERATIVE DIAGNOSIS Right trimalleolar ankle fracture. NAME OF OPERATION Right open reduction and internal fixation of trimalleolar ankle fracture. ANESTHESIA General and preoperative block. FINDINGS A comminuted fracture. SPECIMENS None. ESTIMATED BLOOD LOSS Minimal. COMPLICATIONS None. CONDITION ON DISCHARGE Stable. TOURNIQUET TIME 70 minutes. Postoperatively the patient needs a bone stimulator order for poor bone quality. The patient had a preoperative block and general anesthetic. She was placed supine. All extremities were well padded. Informed consent was obtained from the patient and the risks and benefits were explained to the patient including , stroke, bleeding, infection, damage to nerves or arteries or veins, los of limb, loss of life, malunion, nonunion, need for additional procedures. Informed consent was obtained and consent form was also signed. OPERATION IN DETAIL After the patient was placed supine, her right lower extremity was cleaned with alcohol and prepped and draped with ChloraPrep. Standard time-out was done. The extremity site was also marked preoperatively. We marked out a lateral incision in the same way on the right lower extremity. We inflated the tourniquet to 275 mmHg for approximately 70 minutes. Gloves were changed and a skin incision was made, a large hematoma was noted and a severely comminuted trimalleolar fracture was noted and a bridging technique was felt to be appropriate. A 5-hole Synthes fibular plate was chosen, placed nylon screw distally and two locking screws distally, then reduced the plate to the bone and placed a nonlocked screw proximally. Assessment on the floor felt it was reduced successfully. The fibular length was felt to be appropriately restored. We placed two additional ____ proximally and removed the nylon screws distally and placed additional two locked screws additionally. After assessing medial malunion, the lateral malunion was reduced appropriately, placed into incision medially and placed two 4-0 48 mm cannulated screws, just drilling the distal cortex. Appropriate reduction of the medial malleolus was obtained. The AP and latera obliques were obtained and it was felt to be reducing in its position. The syndesmosis was felt to be stable and a syndesmotic 46 mm screw was placed throughout four cortices thorugh the plate and screw. Appropriate fixation of the syndesmosis was obtained. The wound was irrigated with iced tea solution, ALC and closed with #2-0 Quill, 3-0 Monocryl, Mastisol, Steri-Strips. Medial incisions were closed with 4-0 Monocryl. Big bulky posterior splint was placed with a stirrup. The patient was extubated and taken to the recovery room in stable condition. Needle, sponge and instrument counts were correct at the end of the case. POSTOPERATIVE PLAN The patient will have strict ice and elevation for the first two weeks postoperatively. She will follow up with one of our excellent PA's in the [facility] for suture removal and a cast placement for an additional two to three weeks at the four week followup with the PA. The patient will be placed in a boot and started on total range of motion but no weightbearing on her ankle for a minimal of 10 weeks postoperatively. Will also order a bone stimulator for postoperatively since she has osteoporosis. Thank you for allowing me to participate in this patient's care. David Moreau M.D. MAIKEL/pradeep TD: 05/21/2015 12:44 Electronically Authenticated by: David Moreau MD On 05/26/2015 01:38 PM CDT documented in this encounter Plan of Treatment Not on file documented as of this encounter Procedures Procedure Name Priority Date/Time Associated Diagnosis Comments XR ANKLE 3+ VW Routine 05/21/2015 11:12 AM CDT ANKLE COMPUTED TOMOGRAPHY (CT) WITHOUT CONTRAST Routine 05/21/2015 12:28 AM CDT DISCHARGE LABORATORY CUMULATIVE REPORT 05/21/2015 XR ANKLE 2 VW Routine 05/20/2015 10:27 PM CDT XR ANKLE 2 VW Routine 05/20/2015 9:44 PM CDT SERUM ESTIMATED GLOMERULAR FILTRATION RATE Routine 05/20/2015 6:49 PM CDT PLASMA COMPREHENSIVE METABOLIC PANEL Routine 05/20/2015 6:49 PM CDT BLOOD PROTHROMBIN TIME (PT) Routine 05/20/2015 6:49 PM CDT BLOOD PARTIAL THROMBOPLASTIN TIME (PTT) Routine 05/20/2015 6:49 PM CDT BLOOD CELL COUNT (CBC), MORPHOLOGIC EXAM Routine 05/20/2015 6:49 PM CDT BLOOD CELL MORPHOLOGIC EXAM Routine 05/20/2015 6:49 PM CDT XR CHEST PORTABLE Routine 05/20/2015 6:2 3 PM CDT XR ANKLE 3+ VW Routine 05/20/2015 5:25 PM CDT ELECTROCARDIOGRAPHY (ECG) 05/20/2015 documented in this encounter Results * XR Ankle 3+ Vw (05/21/2015 11:12 AM CDT) Anatomical Region Laterality Modality N/A Radiographic Krupa ging 05/21/2015 11:1 2 AM CDT Narrative 05/22/2015 1:52 AM CDT XR Ankle Min 3 Views R ??[id number] ??Acc#: ??[id number] XR NO CHARGE FLUORO >THAN 1HR ??Acc#: ??[id number] DATE OF EXAM: ??May ??2014 CLINICAL HISTORY: Trimalleolar fracture-subluxation. RESULT: 55 images were obtained in Surgery using C-arm fluoroscope camera. ??These demonstrate open reduction and internal fixation of distal fibula fracture with placement of plate over the lateral surface. ??This is secured to the fibula by three proximal screws and three distal screws. Then, the medial malleolus fracture was transfixed by two cannulated screws placed over pins. ??Finally, a long screw was placed from lateral to medial through the fibular plate, the fibula and tibia with tip extending just beyond medial cortex. ??On final image there is good position of fracture fragments in this projection without widening of joint spaces over the distal tibiofibular articulation. ??On image 33, the last lateral image obtained, there is an obliquely oriented fracture fragment posterior to the fibular shaft and plate that is probably an intermediate fragment from the fibula. IMPRESSION: 1. OPEN REDUCTION AND INTERNAL FIXATION OF TRIMALLEOLAR FRACTURE-SUBLUXATION OF THE RIGHT ANKLE. Fluoroscopy time was 31 seconds. Interpreting Physician: ??DR KIRSTY ALCAZAR M.D. ??Read on: ??Farhan ??1 2014 3:27P Transcribed by: ??vam ??On: May ??1 2015 ??3:27P Approved Electronically by: ??OTTONIEL Talbot, DR LOFTON ??on: ??Farhan ??2 2014 1:52A Attending: ??AMALIA BECKFORD Requesting: ??DAVID MOREAU Requesting Fax: ??-- Attending Fax: ??-- Attending ID: ??[id number] Requesting ID: ??[id number] Report To 1 ID: ??[id number] Report To 1 Name: ??AMALIA BECKFORD Report To 1 FAX: ??-- NextGen Order #: Procedure Note Provider, MD Kip - 03/22/2017 XR Ankle Min 3 Views R [id number] Acc#: [id number] XR NO CHARGE FLUORO >THAN 1HR Acc#: [id number] DATE OF EXAM: May 21 2015 CLINICAL HISTORY: Trimalleolar fracture-subluxation. RESULT: 55 images were obtained in Surgery using C-arm fluoroscope camera. Thesedemonstrate open reduction and internal fixation of distal fibula fracturewith placement of plate over the lateral surface. This is secured to thefibula by three proximal screws and three distal screws. Then, the medialmalleolus fracture was transfixed by two cannulated screws placed overpins. Finally, a long screw was placed from lateral to medial through thefibular plate, the fibula and tibia with tip extending just beyond medialcortex. On final image there is good position of fracture fragments inthis projection without widening of joint spaces over the distaltibiofibular articulation. On image 33, the last lateral image obtained,there is an obliquely oriented fracture fragment posterior to the fibularshaft and plate that is probably an intermediate fragment from thefibula. IMPRESSION: 1. OPEN REDUCTION AND INTERNAL FIXATION OF TRIMALLEOLARFRACTURE-SUBLUXATION OF THE RIGHT ANKLE. Fluoroscopy time was 31seconds. Interpreting Physician: DR KIRSTY ALCAZAR M.D. Read on: May 21 20153:27P Transcribed by: dereck On: May 21 2015 3:27P Approved Electronically by: OTTONIEL Talbot, DR LOFTON on: May 22 20151:52A Attending: AMALIA BECKFORD Requesting: DAVID MOREAU Requesting Fax: -- Attending Fax: -- Attending ID: [id number] Requesting ID: [id number] Report To 1 ID: [id number] Report To 1 Name: AMALIA BECKFORD Report To 1 FAX: -- NextGen Order #: us Historical Provider MD LAWSON XR PROCEDURES Final R esult * ANKLE COMPUTED TOMOGRAPHY (CT) WITHOUT CONTRAST (05/21/2015 12:28 AM CDT) Anatomical Region Laterality Modality N/A Computed Tomogra phy 05/21/2015 12:2 8 AM CDT Narrative 05/21/2015 6:[address] Ankle WO R ?[id number] ??Acc#: ??[id number] DATE OF EXAM: ??May ??2014 CLINICAL HISTORY: Injury due to fall. Right ankle fracture dislocation. RESULT: Helical CT scan with thin section axial images, with sagittal and coronal reformatted images, and MIP images. ??Soft tissue and bone windows. There is a transverse fracture of the medial malleolus which is mildly displaced, maximal distraction of approximately 6 mm. ??There is a comminuted coronally oriented posterior tibial malleolar fracture. ??There is mild displacement. ??There is a comminuted oblique fracture of the distal fibula involving the distal diaphyseal region extending to the uppermost aspect of the lateral malleolus. Some mild widening of the tibiotalar joint anteriorly. ??No acute talar fracture. ??Diffuse soft tissue swelling, particularly at the lateral aspect. IMPRESSION: 1. ??TRIMALLEOLAR FRACTURE SUBLUXATION. REPORT BY DR. KHRIS DOWNING [facility] 05/21/15 AT 12:48 AM Interpreting Physician: ??JOSEF SETHI M.D. ??Read on: ??May ??1 2014 ??8:59A Transcribed by: ??brad ??On: May ??2014 11:02A Approved Electronically by: ??JOSEF SETHI M.D. ??on: ??May ??1 2014 ??6:51P Attending: ??AMALIA BECKFORD Requesting: ??DAVID MOREAU Requesting Fax: ??-- Attending Fax: ??-- Attending ID: ??[id number] Requesting ID: ??[id number] Report To 1 ID: ??[id number] Report To 1 Name: ??AMALIA BECKFORD Report To 1 FAX: ??-- NextGen Order #: Procedure Note Provider, MD Kip - 03/22/[place] [id number] Acc#: [id number] DATE OF EXAM: May 21 2015 CLINICAL HISTORY: Injury due to fall. Right ankle fracture dislocation. RESULT: Helical CT scan with thin section axial images, with sagittal and coronalreformatted images, and MIP images. Soft tissue and bone windows. Thereis a transverse fracture of the medial malleolus which is mildlydisplaced, maximal distraction of approximately 6 mm. There is acomminuted coronally oriented posterior tibial malleolar fracture. Thereis mild displacement. There is a comminuted oblique fracture of thedistal fibula involving the distal diaphyseal region extending to theuppermost aspect of the lateral malleolus. Some mild widening of thetibiotalar joint anteriorly. No acute talar fracture. Diffuse softtissue swelling, particularly at the lateral aspect. IMPRESSION: 1. TRIMALLEOLAR FRACTURE SUBLUXATION. REPORT BY DR. KHRIS DOWNING [facility] 05/21/15 AT 12:48 AM Interpreting Physician: JOSEF SETHI M.D. Read on: May 21 2015 8:59A Transcribed by: brad On: May 21 2015 11:02A Approved Electronically by: JOSEF SETHI M.D. on: May 21 2015 6:51P Attending: AMALIA BECKFORD Requesting: DAVID MOREAU Requesting Fax: -- Attending Fax: -- Attending ID: [id number] Requesting ID: [id number] Report To 1 ID: [id number] Report To 1 Name: AMALIA BECKFORD Report To 1 FAX: -- NextGen Order #: Historical Provider MD LAWSON CT PROCEDURES Final R esult * DISCHARGE LABORATORY CUMULATIVE REPORT (05/21/2015) Narrative 05/21/2015 Ordered by an unspecified provider. Historical Provider LAB BLOOD ORDERABLES Celia l Result * XR Ankle 2 VW (05/20/2015 10:27 PM CDT) Anatomical Region Laterality Modality N/A Radiographic Krupa ging 05/20/2015 10:2 7 PM CDT Narrative 05/21/2015 6:51 PM CDT XR Ankle 2 Views R ?? [id number] ??Acc#: ??[id number] DATE OF EXAM: ??May 20 2015 CLINICAL HISTORY: Second post reduction for fracture - dislocation at the ankle. RESULT: Two views obtained with fiberglass splint in position, at 2227, compared with the earlier study at 2144. Fracture dislocation at the ankle, with fractures of the medial malleolus and distal fibula, and dislocation of the tibial talar joint. ??There are some differences in positioning of the two examinations. The degree of dislocation at the ankle appears somewhat diminished. The degree of displacement of the medial malleolus is diminished, with improved position. IMPRESSION: 1. SOME REDUCTION OF FRACTURE DISLOCATION AT THE ANKLE, WITH IMPROVED POSITION DESCRIBED ABOVE. Interpreting Physician: ??JOSEF SETHI M.D. ??Read on: ??May ??2014 12:03A Transcribed by: ??mb ?? On: May ??1 2014 10:46A Approved Electronically by: ??JOSEF SETHI M.D. ??on: ??May ??1 2015 ??6:51P Attending: ??AMALIA BECKFORD Requesting: ??DR JUAN MIGUEL JIMENEZ Requesting Fax: ??-- Attending Fax: ??-- Attending ID: ??[id number] Requesting ID: ??[id number] Report To 1 ID: ??[id number] Report To 1 Name: ??AMALIA BECKFORD Report To 1 FAX: ??-- NextGen Order #: Procedure Note Provider, Historical, - 03/22/2017 XR Ankle 2 Views [id number] Acc#: [id number] DATE OF EXAM: May 20 2015 CLINICAL HISTORY: Second post reduction for fracture - dislocation at the ankle. RESULT: Two views obtained with fiberglass splint in position, at 2227, comparedwith the earlier study at 2144. Fracture dislocation at the ankle, withfractures of the medial malleolus and distal fibula, and dislocation ofthe tibial talar joint. There are some differences in positioning of thetwo examinations. The degree of dislocation at the ankle appears somewhatdiminished. The degree of displacement of the medial malleolus isdiminished, with improved position. IMPRESSION: 1. SOME REDUCTION OF FRACTURE DISLOCATION AT THE ANKLE, WITH IMPROVEDPOSITION DESCRIBED ABOVE. Interpreting Physician: JOSEF SETHI M.D. Read on: May 21 2015 12:03A Transcribed by: [email or web address] On: May 21 2015 10:46A Approved Electronically by: JOSEF SETHI M.D. on: May 21 2015 6:51P Attending: AMALIA BECKFORD Requesting: DR JUAN MIGUEL JIMENEZ Requesting Fax: -- Attending Fax: -- Attending ID: [id number] Requesting ID: [id number] Report To 1 ID: [id number] Report To 1 Name: AMALIA BECKFORD Report To 1 FAX: -- NextGen Order #: us Historical Provider MD LAWSON XR PROCEDURES Final R esult * XR Ankle 2 VW (05/20/2015 9:44 PM CDT) Anatomical Region Laterality Modality N/A Radiographic Krupa ging 05/20/2015 9:44 PM CDT Narrative 05/21/2015 6:51 PM CDT XR Ankle 2 Views R ?? [id number] ??Acc#: ??[id number] DATE OF EXAM: ??May 20 2015 CLINICAL HISTORY: Post reduction. ??Fracture-dislocation at the ankle. RESULT: Two views of the right ankle obtained with fiberglass cast in position. Once again seen is fracture-dislocation at the ankle. ??Fractures of the medial malleolus and distal fibula. Difference in positioning when comparing the AP view on this study compared with the earlier study. ??The position of the fracture of the distal fibula and medial malleolus are somewhat similar. There may be slight decreased displacement of the medial malleolar fracture, but this may be due to differences in technique/positioning. ??The dislocation at the tibial talar joint appears similar to previous. IMPRESSION: 1. FRACTURE DISLOCATION AT THE ANKLE. ??THERE MAY BE SOME MINIMALLY DECREASED DISPLACEMENT OF THE MEDIAL MALLEOLAR FRACTURE COMPARED WITH THE EARLIER STUDY. Interpreting Physician: ??JOSEF SETHI M.D. ??Read on: ??May 20 2015 11:59P Transcribed by: ??[email or web address] ?? On: May ??2014 10:43A Approved Electronically by: ??JOSEF SETHI M.D. ??on: ??May ??1 2014 ??6:51P Attending: ??AMALIA BECKFORD Requesting: ??JUAN MIGUEL JIMENEZ Requesting Fax: ??-- Attending Fax: ??-- Attending ID: ??[id number] Requesting ID: ??[id number] Report To 1 ID: ??[id number] Report To 1 Name: ??AMALIA BECKFORD Report To 1 FAX: ??-- NextGen Order #: Procedure Note Provider, MD Kip - 03/22/2017 XR Ankle 2 Views R [id number] Acc#: [id number] DATE OF EXAM: May 20 2015 CLINICAL HISTORY: Post reduction. Fracture-dislocation at the ankle. RESULT: Two views of the right ankle obtained with fiberglass cast in position.Once again seen is fracture-dislocation at the ankle. Fractures of themedial malleolus and distal fibula. Difference in positioning whencomparing the AP view on this study compared with the earlier study. Theposition of the fracture of the distal fibula and medial malleolus aresomewhat similar. There may be slight decreased displacement of the medialmalleolar fracture, but this may be due to differences intechnique/positioning. The dislocation at the tibial talar joint appearssimilar to previous. IMPRESSION: 1. FRACTURE DISLOCATION AT THE ANKLE. THERE MAY BE SOME MINIMALLYDECREASED DISPLACEMENT OF THE MEDIAL MALLEOLAR FRACTURE COMPARED WITH THEEARLIER STUDY. Interpreting Physician: JOSEF SETHI M.D. Read on: May 20 2015 11:59P Transcribed by: [email or web address] On: May 21 2015 10:43A Approved Electronically by: JOSEF SETHI M.D. on: May 21 2015 6:51P Attending: AMALIA BECKFORD Requesting: JUAN MIGUEL JIMENEZ Requesting Fax: -- Attending Fax: -- Attending ID: [id number] Requesting ID: [id number] Report To 1 ID: [id number] Report To 1 Name: AMALIA BECKFORD Report To 1 FAX: -- NextGen Order #: us Historical Provider IMG XR PROCEDURES Final R esult * Plasma comprehensive metabolic panel (05/20/2015 6:49 PM CDT) Sodium 142 135 - 145 mmol/L HISTORICAL RESULTS K, pl 4.5 3.5 - 5.1 mmol/L HISTORICAL RESULTS Chloride 104 97 - 110 mmol/L HISTORICAL RESULTS CO2 30 22 - 32 mmol/L HISTORICAL RESULTS A. gap 12 8 - 16 mmol/L HISTORICAL RESULTS Glucose 104 70 - 199 mg/dl HISTORICAL RESULTS Comment: Interpretive Data Note:The glucose [...] data was last revised on 2015. BUN 12.7 8.0 - 25.0 mg/dl HISTORICAL RESULTS Creatinine 0.74 0.60 - 1.10 mg/dl HISTORICAL RESULTS BUN/creat ratio 17 10 - 20 HIST ORICAL RESULTS Calcium 9.1 8.6 - 10.2 mg/dl HISTORICAL RESULTS Protein, sr 6.9 6.0 - 8.4 g/dl HISTORICAL RESULTS Alb 4.3 3.6 - 5.0 g/dl HISTORICAL RESULTS Alb/glob ratio 1.7 1.1 - 1.8 ratio HISTORICAL RESULTS Alk phos 128 40 - 130 Units/L HISTORICAL RESULTS ALT 18 5 - 45 Units/L HISTORICAL RESULTS AST 20 10 - 40 Units/L HISTORICAL RESULTS Bilirubin 0.2 <=1.2 mg/dl HISTORICAL RESULTS Plasma 05/20/2015 6:49 PM CDT Historical Provider LAB BLOOD ORDERABLES Celia l Result Performing Organization Address [facility] de Phone Number HISTORICAL RESULTS * Blood partial thromboplastin time (PTT) (05/20/2015 6:49 PM CDT) PTT 30.8 <=36.0 seconds HISTORICAL RESULTS Blood specimen (specimen) 05/20/2015 6:49 PM CDT Historical Provider LAB BLOOD ORDERABLES Celia desai Result Performing Organization Address [facility] de Phone Number HISTORICAL RESULTS * Blood prothrombin time (PT) (05/20/2015 6:49 PM CDT) Prothrombin time (PT) 12.0 10.9 - 14.8 seconds HISTORICAL RESULTS INR 0.92 HISTORICAL RESULTS Comment: Interpretive Data Recommended ranges for protime INR: Note: The INR has been validated only for patients on stable oral anticoagulant therapy 2.0 - 3.0 ? Prophylaxis of venous thrombosis (High risk surgery) 2.0 - 3.0 ? Treatment of venous thrombosis 2.0 - 3.0 ? Treatment of pulmonary embolism 2.0 - 3.0 ? Prevention of systemic embolism ?Tissue heart valves ?AMI (to prevent systemic embolism)* ?Valvular heart disease; Atrial Fibrillation 2.5 - 3.5 ? Mechanical prosthetic valves (High risk) 2.0 - 3.0 ? Bileaflet mechanical valve in aortic position *If oral anticoagulant therapy is elected to prevent myocardial infarction, an INR of 2.5 to 3.5 is recommended, consistent with Food and Drug Administration recommendations. Current interpretive data was last revised on 2014. Blood specimen (specimen) 05/20/2015 6:49 PM CDT us Historical Provider LAB BLOOD ORDERABLES Celia l Result HISTORICAL RESULTS * Blood cell morphologic exam (05/20/2015 6:49 PM CDT) Neutrophils 71.4 44.0 - 80.0 % HISTORICAL RESULTS Immature granulocytes 0.2 0.0 - 1.0 % HISTORICAL RESULTS Lymphocytes 21.6 13.0 - 44.0 % HISTORICAL RESULTS Monos 4.7 2.0 - 11.0 % HISTORICAL RESULTS Eosinophils 1.8 0.0 - 6.0 % HISTORICAL RESULTS Basophils 0.3 0.0 - 3.0 % HISTORICAL RESULTS Neutrophils, abs 6.5 1.6 - 7.0 K/cumm HISTORICAL RESULTS Immature granulocyte, abs 0.0 0.0 - 0.0 K/cumm HISTORICAL RESULTS Lymphocytes, abs 2.0 0.5 - 4.3 K/cumm HISTORICAL RESULTS Monocytes, absolute 0.4 0.1 - 1.0 K/cumm HISTORICAL RESULTS Eosinophils, abs 0.2 0.0 - 0.6 K/cumm HISTORICAL RESULTS Basophils, abs 0.0 0.0 - 0.3 K/cumm HISTORICAL RESULTS Blood specimen (specimen) 05/20/2015 6:49 PM CDT us Historical Provider LAB BLOOD ORDERABLES Celia l Result HISTORICAL RESULTS * (ABNORMAL) Blood cell count (CBC), morphologic exam (05/20/2015 6:49 PM CDT) WBC 9.1 3.8 - 9.8 K/cumm HISTORICAL RESULTS RBC 4.12 3.90 - 5.00 M/cumm HISTORICAL RESULTS Hgb 12.0(L) 12.1 - 15.1 g/dl HISTORICAL RESULTS Hct 38.0 36.1 - 44.3 % HISTORICAL RESULTS MCV 92.2 80.0 - 100.0 fl HISTORICAL RESULTS MCH 29.1 26.7 - 33.7 pg HISTORICAL RESULTS MCHC 31.6(L) 32.7 - 36.0 g/dl HISTORICAL RESULTS Rdw 12.8 11.5 - 14.6 % HISTORICAL RESULTS Platelets 283 140 - 440 K/cumm HISTORICAL RESULTS MPV 9.9 8.0 - 12.0 fl HISTORICAL RESULTS NRBC 0.0 0.0 - 0.0 #/100 WBC HISTORICAL RESULTS NRBC, abs 0.00 0.00 - 0.00 K/cumm HISTORICAL RESULTS Blood specimen (specimen) 05/20/2015 6:49 PM CDT Historical Provider LAB BLOOD ORDERABLES Celia desai Result HISTORICAL RESULTS * Serum estimated glomerular filtration rate (05/20/2015 6:49 PM CDT) eGFR >60 ml/min/1.7 3 m2 HISTORICAL RESULTS Comment: Interpretation of Estimated GFR (eGFR): Normal ?>/= 60 mL/min/1.73m2 Possible Chronic Kidney Disease ??15 - 59 mL/min/1.73m2 Possible Kidney Failure ?< 15 ??mL/min/1.73m2 If -Stateless multiply value by 1.16. ??Estimated glomerular filtration rate is determined by the CKD-EPI equation recommended by the National Kidney Foundation (KDIGO 2012 Clinical Practice Guideline for the Evaluation and Management of Chronic Kidney Disease. ??Kidney Intnl Suppl Nov 2012;3:1). ??The CKD-EPI equation should not be used in acute renal failure or acute kidney injury and is not valid in children. Serum 05/20/2015 6:49 PM CDT us Historical Provider LAB BLOOD ORDERABLES Celia desai Result HISTORICAL RESULTS * XR Chest Portable (05/20/2015 6:23 PM CDT) Anatomical Region Laterality Modality Body N/A Radiographic Krupa ging 05/20/2015 6:23 PM CDT Narrative 05/21/2015 6:51 PM CDT XR Chest Portable ? [id number] ??Acc#: ??[id number] DATE OF EXAM: ??May 20 2015 CLINICAL HISTORY: History of tobacco use. RESULT: Portable AP projection obtained with patient erect, compared with 10/01/14. Cardiac size and pulmonary vascularity within the range of normal. ??Lungs are free of confluent infiltrates. Costophrenic angles are sharp. Elevation of the right hemidiaphragm, as previously. ??Old granulomatous disease is evident. IMPRESSION: NO ACUTE PULMONARY DISEASE. Interpreting Physician: ??JOSEF SETHI M.D. ??Read on: ??May 20 2015 10:53P Transcribed by: ??[email or web address] ?? On: May ??2014 10:04A Approved Electronically by: ??JOSEF SETHI M.D. ??on: ??May ??2014 ??6:51P Attending: ??AMALIA BECKFORD Requesting: ??JUAN MIGUEL JIMENEZ Requesting Fax: ??-- Attending Fax: ??-- Attending ID: ??[id number] Requesting ID: ??[id number] Report To 1 ID: ??[id number] Report To 1 Name: ??AMALIA BECKFORD Report To 1 FAX: ??-- NextGen Order #: Procedure Note Provider, MD Kip - 03/22/2017 XR Chest Portable [id number] Acc#: [id number] DATE OF EXAM: May 20 2015 CLINICAL HISTORY: History of tobacco use. RESULT: Portable AP projection obtained with patient erect, compared with10/01/14. Cardiac size and pulmonary vascularity within the range ofnormal. Lungs are free of confluent infiltrates. Costophrenic angles aresharp. Elevation of the right hemidiaphragm, as previously. Oldgranulomatous disease is evident. IMPRESSION: NO ACUTE PULMONARY DISEASE. Interpreting Physician: JOSEF SETHI M.D. Read on: May 20 2015 10:53P Transcribed by: [email or web address] On: May 21 2015 10:04A Approved Electronically by: JOSEF SETHI M.D. on: May 21 2015 6:51P Attending: AMALIA BECKFORD Requesting: JUAN MIGUEL JIMENEZ Requesting Fax: -- Attending Fax: -- Attending ID: [id number] Requesting ID: [id number] Report To 1 ID: [id number] Report To 1 Name: AMALIA BECKFORD Report To 1 FAX: -- NextGen Order #: us Historical Provider IMHarris XR PROCEDURES Final R esult * XR Ankle 3+ Vw (05/20/2015 5:25 PM CDT) Anatomical Region Laterality Modality N/A Radiographic Krupa ging 05/20/2015 5:25 PM CDT Narrative 05/21/2015 6:51 PM CDT XR Ankle Min 3 Views R ??[id number] ??Acc#: ??[id number] DATE OF EXAM: ??May 20 2015 CLINICAL HISTORY: Injury due to fall. ??Twisting injury. ??Right ankle pain. RESULT: Three views of the right ankle obtained. An acute fracture dislocation at the ankle, with a transverse fracture of the medial malleolus, comminuted fracture of the distal fibula, and dislocation at the tibiotalar joint. ??The fracture of the medial malleolus is mildly displaced. The fracture of the distal fibula extends from the distal diaphysis to the upper aspect of the upper aspect of the lateral malleolus. ??Mild displacement is evident. ??Lucency projects over the posterior malleolus may be primarily due to superimposition of shadows. ??Posterior malleolar fracture is possible. ??Prominent soft tissue swelling at the ankle. IMPRESSION: 1. ACUTE FRACTURE DISLOCATION AT THE ANKLE, WITH BIMALLEOLAR FRACTURE. Interpreting Physician: ??JOSEF SETHI M.D. ??Read on: ??May 20 2015 ??6:05P Transcribed by: ??[email or web address] ?? On: May 10:50A Approved Electronically by: ??JOSEF SETHI M.D. ??on: ??May ??1 2014 ??6:51P Attending: ??AMALIA BECKFORD Requesting: ??JUAN MIGUEL JIMENEZ Requesting Fax: ??-- Attending Fax: ??-- Attending ID: ??[id number] Requesting ID: ??[id number] Report To 1 ID: ??[id number] Report To 1 Name: ??AMALIA BECKFORD Report To 1 FAX: ??-- NextGen Order #: Procedure Note Provider, MD Kip - 03/22/2017 XR Ankle Min 3 Views R [id number] Acc#: [id number] DATE OF EXAM: May 20 2015 CLINICAL HISTORY: Injury due to fall. Twisting injury. Right ankle pain. RESULT: Three views of the right ankle obtained. An acute fracture dislocation atthe ankle, with a transverse fracture of the medial malleolus, comminutedfracture of the distal fibula, and dislocation at the tibiotalar joint.The fracture of the medial malleolus is mildly displaced. The fracture ofthe distal fibula extends from the distal diaphysis to the upper aspect ofthe upper aspect of the lateral malleolus. Mild displacement is evident.Lucency projects over the posterior malleolus may be primarily due tosuperimposition of shadows. Posterior malleolar fracture is possible.Prominent soft tissue swelling at the ankle. IMPRESSION: 1. ACUTE FRACTURE DISLOCATION AT THE ANKLE, WITH BIMALLEOLAR FRACTURE. Interpreting Physician: JOSEF SETHI M.D. Read on: May 20 2015 6:05P Transcribed by: [email or web address] On: May 21 2015 10:50A Approved Electronically by: JOSEF SETHI M.D. on: May 21 2015 6:51P Attending: AMALIA BECKFORD Requesting: JUAN MIGUEL JIMENEZ Requesting Fax: -- Attending Fax: -- Attending ID: [id number] Requesting ID: [id number] Report To 1 ID: [id number] Report To 1 Name: AMALIA BECKFORD Report To 1 FAX: -- NextGen Order #: Historical Provider IMG XR PROCEDURES Final R esult * ELECTROCARDIOGRAPHY (ECG) (05/20/2015) Narrative 05/20/2015 Ordered by an unspecified provider. us Historical Provider ECG ORDERABLES Final Res ult documented in this encounter Visit Diagnoses Diagnosis Closed trimalleolar fracture Accidental fall on or from other stairs or steps Place of occurrence, home Other depressive disorder Essential hypertension Unspecified essential hypertension Irritable colon Myalgia and myositis Unspecified myalgia and myositis Osteoporosis Unspecified osteoporosis History of allergy to other antibiotic agent Personal history of allergy to narcotic agent History of allergy to other specified medicinal agents documented in this encounter Care Teams Horticultural Farmworker Relationship Specialty Start Date End Date Mendoza Parker MD PCP - General 03/05/13 06/02/15 documented as of this encounter
--- OUTSIDE RECORDS SUMMARY | 2024-11-19 04:55 | XMS_ITS | Encounter Summary ---
Author Organization [facility] Address [address] [place] [address] Care Team Providers Care Compressor Stations Superintendent Name Role Phone Mendoza Parker MD Primary Care Provider [phone] Mendoza Parkre MD Primary Care Provider [phone] Mendoza Parker MD Primary Care Provider [phone] Mendoza Parker MD Primary Care Provider [phone] Mendoza Parker MD Primary Care Provider [phone] Margarito العراقي MD Primary Care Provider [phone] Raymond Vela MD Unavailable [phone] Encounter Details Date Type Department Care Team (Late st Contact Info) Description 03/07/2015 Orders Only [facility] Health Information Management [address] [place] [address] Scanning, Provider Social History Tobacco Use Types Packs/Day Years Used Date Smoking Tobacco: Former Cigarettes Q uit: 11/21/2003 Alcohol Use Standard Drinks/Week Comments No 0 (1 standard drink = 0.6 oz pur e alcohol) Comments Unknown Sex and Gender Information Value Date Recorded Sex Assigned at Not on file 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 Gender Identity Not on file Sexual Orientation Not on file documented as of this encounter Plan of Treatment Not on file documented as of this encounter Procedures Procedure Name Priority Date/Time Associated Diagnosis Comments SCAN - LABS 03/07/2015 documented in this encounter Results * SCAN - LABS (03/07/2015) us Provider Scanning Final Result documented in this encounter Visit Diagnoses Not on filedocumented in this encounter Additional Health Concerns Infection Onset Date Last Indicated Resolved Time COVID: Suspected 02/20/2024 02/20/2024 02/20/2024 2:54 PM CDT documented as of this encounter Care Teams Compressor Stations Superintendent Relationship Specialty Start Date End Date Mendoza Parker MD PCP - General 02/18/17 06/12/20 Mendoza Parker MD PCP - General 11/18/15 02/17/17 Mendoza Parker MD PCP - General 06/03/15 11/17/15 Mendoza Parker MD PCP - General 03/05/13 06/02/15 Mendoza Parker MD PCP - General 06/13/20 09/03/20 Margarito العراقي MD [address] [place] [address] [place] [address] PCP - General Family Medicine 09/04/20 Raymond Vela MD [address] [place] [address] Referring Physician Obstetrics and Gynecology 08/17/21 documented as of this encounter
--- OUTSIDE RECORDS SUMMARY | 2024-11-19 04:55 | XMS_ITS | Encounter Summary ---
Author Organization [facility] Healthcare Address [address] [place] [address] Care Team Providers Care Clinical Dietitian Name Role Phone Mendoza Parker MD Primary Care Provider [phone] Encounter Details Date Type Department Care Team (Late st Contact Info) Description 08/01/2014 12:13 PM CDT - 08/01/2014 11:59 PM CDT Hospital Encounter [facility] Tay MD [address] [id number] Disorder of bone and cartilage Social History Tobacco Use Types Packs/Day Years Used Date Smoking Tobacco: Former Cigarettes Q uit: 11/21/2003 Alcohol Use Standard Drinks/Week Comments No 0 (1 standard drink = 0.6 oz pur e alcohol) Comments Unknown Sex and Gender Information Value Date Recorded Sex Assigned at Not on file 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 Gender Identity Not on file Sexual [...] Procedure Name Priority Date/Time Associated Diagnosis Comments DISCHARGE CUMULATIVE SUMMARY ADDENDUM Routine 08/07/2014 12:33 AM CDT SERUM ENDOMYSIAL AB Routine 08/01/2014 7 :30 AM CDT REFERRED TEST, MISCELLANEOUS Routine 08/01/2014 7:30 AM CDT REFERRED TEST, MISCELLANEOUS Routine 08/01/2014 7:30 AM CDT REFERRED TEST, MISCELLANEOUS Routine 08/01/2014 7:30 AM CDT DISCHARGE LABORATORY CUMULATIVE REPORT Routine 08/01/2014 12:00 AM CDT documented in this encounter Results * Discharge Cumulative Summary Addendum (08/07/2014 12:33 AM CDT) 08/07/2014 12:3 3 AM CDT Narrative HISTORICAL RESULTS - 08/07/2014 12:33 AM CDT Patient No: [id number] ? [facility] Patient Name: DALE BETANCUR ?[facility] Healthcare Age: 48 YRS ?: 1965 ?Sex:F ?[address] [facility] )[id number] ?? Adm Dt: 08/01/2014 ?[place], [place] ??[address] Created: 08/07/2014 ??0033 ?? Pt. Type: R ? Discharge Dt: 08/01/2014 ? Pathologists: Lesley Rowley MD Admit Attend Dr: URBANO FLEMING M.D. ?[facility] ?Collection Date: ?08/01/14 ?Collection Time: ?1230 ? Ref Range: ?? Units: ?GOOD FRIG GO @ ?SEE FN f Footnotes and Symbols: f = Footnote @ = GOOD FRIG GO Performed at ??[place], [place] [facility]... 08/01/14 1230 Test ? Result ? Flag ??Unit ?RefValue Cortisol, Free, U ?? Cortisol, U ?56 ?H ?mcg/24 h ??3.5-45 ?? Collection Duration ?24 ? h ?? Urine Volume ? 3300 ? mL ?? END OF CHART ? Page: ?? 1 Historical Provider MD LAB MICROBIOLOGY - GENERA L ORDERABLES Final Result Performing Organization Address [facility] de Phone Number HISTORICAL RESULTS * Serum endomysial ab (08/01/2014 7:30 AM CDT) Endomysial ab, interp Negative Negative HISTORICAL RESULTS Serum 08/01/2014 7:30 AM CDT Narrative HISTORICAL RESULTS - 08/05/2014 10:10 AM CDT Negative in normal Individuals. May be negative in dermatitis herpatiformis or celiac disease patients adhering to a gluten free diet. Laboratory developed test. Historical Provider MD LAB BLOOD ORDERABLES Celia l Result Performing Organization Address [facility] de Phone Number HISTORICAL RESULTS * Referred test, miscellaneous (08/01/2014 7:30 AM CDT) Referral specimen, test result SEEFN HISTORICAL RESULTS Miscellaneous 08/01/2014 7:3 0 AM CDT Narrative HISTORICAL RESULTS - 08/03/2014 6:35 AM CDT GOKEY OSCAL Test ? Result ?Flag ??Unit ?? RefValue Osteocalcin, S ? 13 ?ng/mL ??9 - 42 Historical Provider MD LAB BLOOD ORDERABLES Celia l Result Performing Organization Address [facility] de Phone Number HISTORICAL RESULTS * Referred test, miscellaneous (08/01/2014 7:30 AM CDT) Referral specimen, test result SEEFN HISTORICAL RESULTS Miscellaneous 08/01/2014 7:3 0 AM CDT Narrative HISTORICAL RESULTS - 08/06/2014 7:10 AM CDT ISMA STEEN Test ? Result ? Flag ??Unit ?RefValue Cortisol, Free, U ??Cortisol, U ?56 ?H ?mcg/24 h ??3.5-45 ??Collection Duration ?24 ? h ??Urine Volume ? 3300 ? mL Historical Provider MD LAB BLOOD ORDERABLES Celia l Result Performing Organization Address [facility] de Phone Number HISTORICAL RESULTS * Referred test, miscellaneous (08/01/2014 7:30 AM CDT) Referral specimen, test result SEEFN HISTORICAL RESULTS Miscellaneous 08/01/2014 7:3 0 AM CDT Narrative HISTORICAL RESULTS - 08/03/2014 6:36 AM CDT GOKEY CTX Test ? Result ?Flag ??Unit ?? RefValue Beta-CrossLaps (B-CTx), S ?343 ? pg/mL ?-- REFERENCE VALUE -- ?25-573 (Premenopausal) ?104-1008 (Postmenopausal) us Historical Provider MD LAB BLOOD ORDERABLES Celia l Result HISTORICAL RESULTS * Discharge Laboratory Cumulative Report (08/01/2014 12:00 AM CDT) 08/01/2014 Narrative HISTORICAL RESULTS - 08/04/2014 3:00 AM CDT Patient No: [id number] ? [facility] Patient Name: DALE BETANCUR ?[facility] Healthcare Age: 48 YRS ?: 1965 ?Sex:F ?[address] )[id number] ?? Adm Dt: 08/01/2014 ?[place] ??[id number] Created: 08/04/2014 ??0300 ?? Pt. Type: R ? Discharge Dt: 08/01/2014 ? Pathologists: Lesley Rowley MD Admit Attend Dr: URBANO FLEMING M.D. ?[facility] ?Collection Date: ?08/01/14 ?Collection Time: ?1230 ? Ref Range: ?? Units: ?GOOD FROZEN GO @ ?SEE FN f ?GOOD FROZEN GO @ ?SEE FN f Footnotes and Symbols: f = Footnote @ = [facility] GO Performed at ??[facility] [place], [place] [facility]. 08/01/14 1230 Test ? Result ?Flag ??Unit ?? RefValue Osteocalcin, S ? 13 ?ng/mL ??9 - 42 GOOD FROZEN GO. 08/01/14 1230 Test ? Result ?Flag ??Unit ?? RefValue Beta-CrossLaps (B-CTx), S ?343 ? pg/mL ? -- REFERENCE VALUE -- ? 25-573 (Premenopausal) ? 104-1008 (Postmenopausal) ?? END OF CHART ? Page: ?? 1 us Historical Provider LAB BLOOD ORDERABLES Celia desai Result HISTORICAL RESULTS documented in this encounter Visit Diagnoses Diagnosis Disorder of bone and cartilage Disorder of bone and cartilage, unspecified documented in this encounter Care Teams Clinical Dietitian Relationship Specialty Start Date End Date Mendoza Parker MD PCP - General 03/05/13 06/02/15 documented as of this encounter
--- OUTSIDE RECORDS SUMMARY | 2024-11-19 04:55 | XMS_ITS | Encounter Summary ---
Author Organization [facility] Address [address] [facility] [address] [place] [address] Care Team Providers Care Community Worker Name Role Phone Mendoza Parker MD Primary Care Provider [phone]- [phone] Mendoza Parker MD Primary Care Provider +- [phone] Mendoza Parker MD Primary Care Provider +- [phone] Mendoza Parker MD Primary Care Provider +- [phone] Mendoza Parker MD Primary Care Provider +- [phone] Mendoza Parker MD Primary Care Provider +1- [phone] Margarito العراقي MD Primary Care Provider [phone] Raymond Vela MD Unavailable Encounter Details Date Type Department Care Team (Late st Contact Info) Description 01/05/2013 Orders Only [facility] Health Information Management [address] [place] [address] Scanning, Provider Social History Tobacco Use Types Packs/Day Years Used Date Smoking Tobacco: Never Assessed Comments Unknown Sex and Gender Information Value Date Recorded Sex Assigned at Not on file 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 Gender Identity Not on file Sexual Orientation Not on file documented as of this encounter Plan of Treatment Not on file documented as of this encounter Procedures Procedure Name Priority Date/Time Associated Diagnosis Comments GI - RESULT 01/05/2013 SCAN - PATHOLOGY 01/05/2013 documented in this encounter Results * SCAN - PATHOLOGY (01/05/2013) us Provider Scanning Final Result * GI - RESULT (01/05/2013) Anatomical Region Laterality Modality Other us Provider Scanning Final Result documented in this encounter Visit Diagnoses Not on filedocumented in this encounter Additional Health Concerns Infection Onset Date Last Indicated Resolved Time COVID: Suspected 02/20/2024 02/20/2024 02/20/2024 2:54 PM CDT documented as of this encounter Care Teams Community Worker Relationship Specialty Start Date End Date Mendoza Parker MD PCP - General 02/18/17 06/12/20 Mendoza Parker MD PCP - General 11/18/15 02/17/17 Mendoza Parker MD PCP - General 06/03/15 11/17/15 Mendoza Parker MD PCP - General 03/05/13 06/02/15 Mendoza Parker MD PCP - General 08/20/08 03/04/13 Mendoza Parker MD PCP - General 06/13/20 09/03/20 Margarito العراقي MD [address] [place] [address] PCP - General Family Medicine 09/04/20 Raymond Vela MD [address] [place] [address] Referring Physician Obstetrics and Gynecology 08/17/21 documented as of this encounter
--- OUTSIDE RECORDS SUMMARY | 2024-11-19 04:55 | XMS_ITS | Encounter Summary ---
Author Organization [facility] Healthcare Address [address] [place] [address] Care Team Providers Care Oil Well Engineer Name Role Phone Mendoza Parker MD Primary Care Provider [phone]- [phone] Encounter Details Date Type Department Care Team (Latest Contact Info) Description 02/02/2013 7:38 PM CDT - 02/02/2013 10:42 PM CDT Hospital Encounter [facility] [address] [facility] [address] [place] [address] Chronic sinusitis; Headache; Abdominal pain, epigastric; Essential hypertension Social History Tobacco Use Types Packs/Day Years Used Date Smoking Tobacco: Never Assessed Comments Unknown Sex and Gender Information Value Date Recorded Sex Assigned at Not on file 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 01/31/2012 05/11/2018 ergocalciferol (VITAMIN D) 50,000 unit capsule TAKE ONE CAPSULE ONCE A WEEK FOR 8 WEEKS 04/25/2012 11/16/2018 documented as of this encounter Plan of Treatment Not on file documented as of this encounter Procedures Procedure Name Priority Date/Time Associated Diagnosis Comments DISCHARGE CUMULATIVE SUMMARY ADDENDUM Routine 02/09/2013 12:24 AM CDT URINALYSIS Routine 02/02/2013 9:[address] HEAD WO CONTRAST Routine 02/02/2013 8 :50 PM CDT SERUM COMPREHENSIVE METABOLIC PANEL Routine 02/02/2013 8:34 PM CDT BLOOD WBC CELL MORPHOLOGIC EXAM, AUTO Routine 02/02/2013 8:34 PM CDT BLOOD CELL COUNT (CBC) Routine 3 8:34 PM CDT INFLUENZA A, B AG Routine 02/02/2013 8:2 1 PM CDT THROAT SWAB STREPTOCOCCUS RAPID ANTIGEN GROUP A Routine 02/02/2013 8:20 PM CDT ELECTROCARDIOGRAPHY (ECG) 02/02/2013 MICROBIOLOGY SUMMARY Routine 02/02/2013 12:00 AM CDT DISCHARGE LABORATORY CUMULATIVE REPORT Routine 02/02/2013 12:00 AM CDT documented in this encounter Results * Discharge Cumulative Summary Addendum (02/09/2013 12:24 AM CDT) 02/09/2013 12:2 4 AM CDT Narrative HISTORICAL RESULTS - 02/09/2013 12:24 AM CDT Patient No: [id number] ? [facility] Patient Name: DALE BETANCUR ?[facility] Healthcare Age: 47 YRS ?: 1965 ?Sex:F ?[address] )[phone] ?? Adm Dt: 02/02/2013 ?[place] ??[address] Created: 02/09/2013 ??0024 ?? Pt. Type: E ? Discharge Dt: 02/02/2013 ? Pathologists: Lesley Rowley MD Admit Attend Dr: AMELIE GONZALES MD ? MICRO - BLOOD BLOOD CULTURE ? Collected: 02/02/132033 ? Received: 02/02/132053 Source: BLOOD ? Started: 02/02/132109 ?[address] [address] ? PRELIMINARY REPORT ?02/04/13201 ? NO GROWTH AT 1 DAY ? FINAL REPORT ?02/08/13 08 ? NO GROWTH AT 5 DAYS BLOOD CULTURE ? Collected: 02/02/132040 ? Received: 02/02/132053 Source: BLOOD ? Started: 02/02/132110 ?[address] ? PRELIMINARY REPORT ?02/04/13 0202 ? NO GROWTH AT 1 DAY ? FINAL REPORT ?02/08/13 0800 ? NO GROWTH AT 5 DAYS ?? END OF CHART ? Page: ?? 1 us Historical Provider LAB MICROBIOLOGY - GENERA L ORDERABLES Final Result Performing Organization Address [facility] de Phone Number HISTORICAL RESULTS * Urinalysis (02/02/2013 9:20 PM CDT) Color, ur YELLOW YELLOW HISTORICAL RESULTS Clarity, ur CLEAR CLEAR HISTORIC AL RESULTS Specific gravity, ur 1.028 1.000 - 1.030 gu HISTORICAL RESULTS Leukocyte esterase, ur Negative NEGATIVE HISTORICAL RESULTS Nitrites, ur Negative NEGATIVE HISTORI ERMA RESULTS pH, ur 7.0 6.0 HISTORICAL RESULTS Protein, ur 30 NEGATIVE HISTORIC AL RESULTS Glucose, ur Negative NEGATIVE HISTORIC AL RESULTS Ketones, ur Negative NEGATIVE HISTORIC AL RESULTS Urobilinogen, quant, ur 0.2 0.2 - 1.0 mg/dl HISTORICAL RESULTS Bilirubin, ur Negative NEGATIVE HISTOR ICAL RESULTS U Blood Negative NEGATIVE HISTORICAL RESULTS Urine 02/02/2013 9:20 PM CDT Amelie Gonzales MD LAB BLOOD ORDERABLES Final Resu lt HISTORICAL RESULTS * CT Head WO Contrast (02/02/2013 8:50 PM CDT) Anatomical Region Laterality Modality Head and Neck N/A Computed Tomogra phy 02/02/2013 8:50 PM CDT Narrative 02/03/2013 12:[address] [place] ?[id number] ??Acc#: ??[id number] DATE OF EXAM: ??Feb 02 2013 CLINICAL HISTORY: Headache. ??Elevated pulse. ??Hypertension. RESULT: Serial axial images of the brain were obtained without contrast with no previous studies for comparison. There is no hemorrhage, midline shift, mass effect or focal brain parenchymal abnormality identified. ??The CSF spaces are normal for age. No skull fracture is seen. ??There is moderate opacification of the ethmoid air cells bilaterally with small left and minimal right mucosal thickening in the partially visualized maxillary sinuses. ??There appear to be bilateral nasal antral windows. ??Please confirm clinically. IMPRESSION: 1. NO FOCAL BRAIN PARENCHYMAL LESIONS. 2. PARANASAL SINUS DISEASE ABOVE. RESULTS DISCUSSED WITH DR. GONZALES AT 2055 HOURS ON FEBRUARY 02, 2013. Interpreting Physician: ??LEN BALDWIN M.D. ??Read on: ??Feb 03 2013 12:20A Transcribed by: ??VLR ??On: Feb 03 2013 11:59A Approved Electronically by: ??LEN BALDWIN M.D. ??on: ??Feb 03 2013 12:21P Ordering DR: DR AMELIE GONZALES Attending DR: DR AMELIE GONZALES Procedure Note Provider, MD Kip - 03/22/[place] [id number] Acc#: [id number] DATE OF EXAM: Feb 02 2013 CLINICAL HISTORY: Headache. Elevated pulse. Hypertension. RESULT: Serial axial images of the brain were obtained without contrast with noprevious studies for comparison. There is no hemorrhage, midline shift,mass effect or focal brain parenchymal abnormality identified. The CSFspaces are normal for age. No skull fracture is seen. There is moderateopacification of the ethmoid air cells bilaterally with small left andminimal right mucosal thickening in the partially visualized maxillarysinuses. There appear to be bilateral nasal antral windows. Pleaseconfirm clinically. IMPRESSION: 1. NO FOCAL BRAIN PARENCHYMAL LESIONS. 2. PARANASAL SINUS DISEASE ABOVE. RESULTS DISCUSSED WITH DR. GONZALES QU2334 HOURS ON FEBRUARY 02, 2013. Interpreting Physician: LEN BALDWIN M.D. Read on: Feb 03 2013 12:20A Transcribed by: SALMA On: Feb 03 2013 11:59A Approved Electronically by: LEN BALDWIN M.D. on: Feb 03 2013 12:21P Ordering DR: DR AMELIE GONZALES Attending DR: DR AMELIE GONZALES Historical Provider MD IMG CT PROCEDURES Final R esult * (ABNORMAL) Blood cell count (CBC) (02/02/2013 8:34 PM CDT) WBC 10.0 4.0 - 10.5 K/cumm HISTORICAL RESULTS RBC 4.57 4.20 - 5.40 M/cumm HISTORICAL RESULTS Hgb 13.3(L) 14.0 - 18.0 g/dl HISTORICAL RESULTS Hct 40.7 40.0 - 54.0 % HISTORICAL RESULTS MCV 89.1 77.0 - 97.0 fl HISTORICAL RESULTS MCH 29.1 23.0 - 34.0 pg HISTORICAL RESULTS MCHC 32.7 32.0 - 36.0 g/dl HISTORICAL RESULTS Rdw 13.7 11.5 - 14.5 % HISTORICAL RESULTS Platelets 304 150 - 451 K/cumm HISTORICAL RESULTS MPV 9.9 7.4 - 10.4 fl HISTORICAL RESULTS Blood specimen (specimen) 02/02/2013 8:34 PM CDT Amelie Gonzales MD LAB BLOOD ORDERABLES Final Resu lt HISTORICAL RESULTS * (ABNORMAL) Blood WBC cell morphologic exam, auto (02/02/2013 8:34 PM CDT) Lymphocytes 7.7(L) 25.0 - 33.0 % HISTORICAL RESULTS Monos 5.2 1.0 - 13.0 % HISTORICAL RESULTS Neutrophils 86.1(H) 54.0 - 69.0 % HISTORICAL RESULTS Eosinophils 0.7 0.0 - 10.0 % HISTORICAL RESULTS Basophils 0.2 0.0 - 1.0 % HISTORICAL RESULTS Immature granulocytes 0.1 0.0 - 0.9 % HISTORICAL RESULTS Lymphocytes, abs 0.8(L) 1.2 - 3.4 K/cumm HISTORICAL RESULTS Monocytes, absolute 0.5(L) 1.1 - 1.9 K/cumm HISTORICAL RESULTS Neutrophils, abs 8.6(H) 1.4 - 6.5 K/cumm HISTORICAL RESULTS Eosinophils, abs 0.1 0.0 - 0.7 cells/cum m HISTORICAL RESULTS Basophils, abs 0.0 0.0 - 0.2 K/cumm HISTORICAL RESULTS Immature granulocyte, abs 0(H) 0 - 0 K/cumm HISTORICAL RESULTS Blood specimen (specimen) 02/02/2013 8:34 PM CDT us Amelie Gonzales MD LAB BLOOD ORDERABLES Final Resu lt HISTORICAL RESULTS * (ABNORMAL) Serum comprehensive metabolic panel (02/02/2013 8:34 PM CDT) BUN 9.0 6.0 - 23.0 mg/dl HISTORICAL RESULTS Sodium 133(L) 134 - 143 mmol/L HISTORICAL RESULTS Potassium, sr 3.8 3.4 - 5.0 mmol/L HISTORICAL RESULTS Chloride 100 99 - 108 mmol/L HISTORICAL RESULTS CO2 25 23 - 32 mmol/L HISTORICAL RESULTS Glucose, fasting 121(H) 70 - 110 mg/dl HISTORICAL RESULTS Creatinine 0.86 0.60 - 1.30 mg/dl HISTORICAL RESULTS Comment: eGFR: >70 ml/min/1.73sq.m if non -Nepalese. eGFR: >70 ml/min/1.73sq.m if -Nepalese. AVE GFR for 40-49 yr. age group: ??99 ml/min/1.73sq.m Calculated using MDRD Equation BUN/creat ratio 10 10 - 20 HIST ORICAL RESULTS A. gap 12 7 - 14 mmol/L HISTORICAL RESULTS Protein, sr 7.5 6.4 - 8.0 g/dl HISTORICAL RESULTS Alb 3.7 3.3 - 4.5 g/dl HISTORICAL RESULTS Alb/glob ratio 1.0(L) 1.1 - 1.8 HISTO RICAL RESULTS Calcium 8.7 8.6 - 9.8 mg/dl HISTORICAL RESULTS Bilirubin 0.3 0.0 - 1.1 mg/dl HISTORICAL RESULTS Alk phos 174(H) 44 - 125 Units/L HISTORICAL RESULTS AST 30 4 - 32 Units/L HISTORICAL RESULTS ALT 75(H) 16 - 66 Units/L HISTORICAL RESULTS Serum 02/02/2013 8:34 PM CDT Amelie Gonzales MD LAB BLOOD ORDERABLES Final Resu lt Performing Organization Address [facility] de Phone Number HISTORICAL RESULTS * Influenza A, B ag (02/02/2013 8:21 PM CDT) Influ A ag, nasopharyngeal Negative HISTORICAL RESULTS Comment:NEGATIVE RESULTS FOR THIS ASSAY ARE CONSIDERED PRESUMPTIVE Influ B ag, nasopharyngeal Negative HISTORICAL RESULTS Miscellaneous 02/02/2013 8:2 1 PM CDT Amelie Gonzales MD LAB BLOOD ORDERABLES Final Resu lt Performing Organization Address [facility] de Phone Number HISTORICAL RESULTS * Throat swab Streptococcus Rapid Antigen Group A (02/02/2013 8:20 PM CDT) Strep A ag oropharyngeal Negative NEGATIVE HISTORICAL RESULTS Throat 02/02/2013 8:20 PM CDT Amelie Gonzales MD LAB BLOOD ORDERABLES Final Resu lt Performing Organization Address [facility] de Phone Number HISTORICAL RESULTS * Discharge Laboratory Cumulative Report (02/02/2013 12:00 AM CDT) 02/02/2013 Narrative HISTORICAL RESULTS - 02/04/2013 2:23 AM CDT Patient No: [id number] ? [facility] Patient Name: DALE BETANCUR ?[facility] Healthcare Age: 47 YRS ?: 1965 ?Sex:F ?[address] )[id number] ?? Adm Dt: 02/02/2013 ?[place], [place] ??[address] Created: 02/04/2013 ??0223 ?? Pt. Type: E ? Discharge Dt: 02/02/2013 ? Pathologists: Lesley Rowley MD Admit Dr. Christopher Hollingsworth: AMELIE GONZALES MD ? BLOOD CELL COUNTS ?Collection Date: ?02/02/13 ?Collection Time: ?2034 ? Ref Range: ?? Units: [4.00-10.50] /CMM ? WBC X 10^3 ? 10.01 [4.20-5.40] ??/CMM ? RBC X 10^6 ?4.57 [14.0-18.0] ??G/DL ? HGB ? 13.3 L [40.0-54.0] ??% ?HCT ? 40.7 [77.0-97.0] ??FL ? MCV ? 89.1 [23.0-34.0] ??PG ? MCH ? 29.1 [32.0-36.0] ??% ?MCHC ?32.7 [11.5-14.5] ??% ?RDW ? 13.7 [150-451] ?? /CMM ? PLT X 10^3 ? 304 ?BLOOD CELL DIFFERENTIAL ?Collection Date: ?02/02/13 ?Collection Time: ?2034 ? Ref Range: ?? Units: [54.0-69.0] ??% ?NEUTROPHILS ? 86.1 H [25.0-33.0] ??% ?LYMPHOCYTES ?7.7 L [1.0-13.0] ??% ?MONOCYTES ?5.2 [0.0-10.0] ??% ?EOSINOPHILS ?0.7 [0.0-1.0] ?? % ?BASOPHILS ?0.2 ? /CMM ? A LYMPHOCYTE ? 0.8 L [0.0-0.9] ?? % ?IMM GRAN % ? 0.1 [0.00-0.01] ??/CMM ? A IMM GRAN ?0.10 H [1.1-1.9] ?? /CMM ? A MONOCYTE ? 0.5 L [1.4-6.5] ?? /CMM ? A NEUTROPHIL ? 8.6 H [0.0-0.7] ?? /CMM ? A EOSINOPHIL ? 0.1 [0.0-0.2] ?? /CMM ? A BASOPHIL ? 0.0 Footnotes and Symbols: L = Low, H = High ?? CONTINUED ?Page: ?? 1 Patient No: [id number] ? [facility] Patient Name: DALE BETANCUR ?[facility] Age: 47 YRS ?: 1965 ?Sex:F ?[address] )[id number] ?? Adm Dt: 02/02/2013 ?[place], [place] ??[address] Created: 02/04/2013 ??0223 ?? Pt. Type: E ? Discharge Dt: 02/02/2013 ? Pathologists: Lesley Rowley MD Admit Dr. White Dr: AMELIE GONZALES MD ? GENERAL CHEMISTRY ?Collection Date: ?02/02/13 ?Collection Time: ?2034 ? Ref Range: ?? Units: [134-143] ?? MMOL/L ? SODIUM ? 133 L [3.4-5.0] ?? MMOL/L ? POTASSIUM ?3.8 [99.0-108.0] MMOL/L ? CHLORIDE ? 100.0 [23.0-32.0] ??MMOL/L ? TOTAL CO2 ? 25.0 ?? [7-14] ?MMOL/L ? ANION GAP ? 12 ??[70-110] ?? MG/DL ?GLUCOSE FASTING ?121 H [6.4-8.0] ?? G/DL ? TOTAL PROTEIN ?7.5 [3.3-4.5] ?? G/DL ? ALBUMIN ?3.7 [1.1-1.8] ?A/G RATIO ?1.0 L [8.6-9.8] ?? MG/DL ?CALCIUM ?8.7 [0.0-1.1] ?? MG/DL ?BILI TOTAL ? 0.3 ??[44-125] ?? U/L ?ALK PHOS ? 174 H ?? [4-32] ?U/L ?AST(SGOT) ? 30 ??[16-66] ?U/L ?ALT(SGPT) ? 75 H [6.0-23.0] ??MG/DL ?BUN ?9.0 ??[10-20] ? B/C RATIO ? 10 [0.60-1.30] ??MG/DL ?CREATININE ?0.86 f ?02/02/134 eGFR: >70 ml/min/1.73sq.m if non -Nepalese. eGFR: >70 ml/min/1.73sq.m if -Nepalese. AVE GFR for 40-49 yr. age group: ??99 ml/min/1.73sq.m Calculated using MDRD Equation FOOTNOTE ADDED ON ?? 02/02/13 ?? AT 2112 BY 999 Footnotes and Symbols: L = Low, H = High, f = Footnote ?? CONTINUED ?Page: ?? 2 Patient No: [id number] ? [facility] Patient Name: DALE BETANCUR ?[facility] Age: 47 YRS ?: 1965 ?Sex:F ?[address] )[id number] ?? Adm Dt: 02/02/2013 ?[place], [place] ??[address] Created: 02/04/2013 ??0223 ?? Pt. Type: E ? Discharge Dt: 02/02/2013 ? Pathologists: Lesley Rowley MD Admit Attend Dr: AMELIE GONZALES MD ? SEROLOGY ?Collection Date: ?02/02/13 ? 02/02/13 ?Collection Time: ?2021 ? 2020 ? Ref Range: ?? Units: [NEGATIVE] ?GRP A BETA STR ? NEGATIVE ?INFLUENZA A AG ?NEGATIVE f ?INFLUENZA B AG ?NEGATIVE ?URINALYSIS ?Collection Date: ?03/15/13 ?Collection Time: ?2120 ? Ref Range: ?? Units: [YELLOW] ? U COLOR ? YELLOW ??[CLEAR] ? U APPEARANCE ? CLEAR [1.000-1.030] ? U SPEC GRAVITY ? 1.028 [NEGATIVE] ?U LEUKO ESTRASE ? NEGATIVE [NEGATIVE] ?U NITRITE ? NEGATIVE ?? [6.0] ?U PH ? 7.0 [NEGATIVE] ?U PROTEIN ? 30 [NEGATIVE] ?U GLUCOSE ? NEGATIVE [NEGATIVE] ?U KETONES ? NEGATIVE [0.2- 1.0] ?UROBILINOGEN ? 0.2 [NEGATIVE] ?U BILIRUBIN ? NEGATIVE [NEGATIVE] ?U BLOOD ? NEGATIVE Footnotes and Symbols: f = Footnote INFLUENZA A AG (02/02/12 -- Current) NEGATIVE RESULTS FOR THIS ASSAY ARE CONSIDERED PRESUMPTIVE ?? CONTINUED ?Page: ?? 3 Patient No: [id number] ? [facility] Patient Name: DALE BETANCUR ?[facility] Healthcare Age: 47 YRS ?: 1965 ?Sex:F ?[address] )[phone] ?? Adm Dt: 02/02/2013 ?[place] ??[address] Created: 02/04/2013 ??0223 ?? Pt. Type: E ? Discharge Dt: 02/02/2013 ? Pathologists: Lesley Rowley MD Admit Dr. White Dr: AMELIE GONZALES MD ? MICRO - BLOOD BLOOD CULTURE ? Collected: 02/02/132033 ? Received: 02/02/132053 Source: BLOOD ? Started: 02/02/132109 ?1OF2 [address]34 ? PRELIMINARY REPORT ?02/04/13201 ? NO GROWTH AT 1 DAY BLOOD CULTURE ? Collected: 02/02/132040 ? Received: 02/02/132053 Source: BLOOD ? Started: 02/02/132110 ?2OF2 [facility] 634 ? PRELIMINARY REPORT ?02/04/13 0202 ? NO GROWTH AT 1 DAY ?MICRO - RESPIRATORY THROAT BETA ONLY ?Collected: 02/02/132019 ? Received: 02/02/132045 Source: THROAT ?Started: 02/02/132048 ?THROAT ? PRELIMINARY REPORT ?02/03/13519 ? NEGATIVE NO BETA-HEMOLYTIC STREPTOCOCCI CULTURED ?? END OF CHART ? Page: ?? 4 us Historical Provider MD LAB BLOOD ORDERABLES Celia l Result HISTORICAL RESULTS * Microbiology Summary (02/02/2013 12:00 AM CDT) 02/02/2013 Narrative HISTORICAL RESULTS - 02/09/2013 12:29 AM CDT ? [facility] ?[facility] ? MICROBIOLOGY REPORT PATIENT NAME: ??DALE BETANCUR ?MED RECORD#: ??[id number] BIRTHDATE: ??1965 ?? AGE: ??47 YRS SEX: F ?PATIENT#: ? [id number] ADMITTING DR: ??AMELIE GONZALES MD ? ATTENDING DR: ??AMELIE GONZALES MD ? ACCESSION#: ?? [id number] CREATED: ??02/09/13 ?? 0024 ? ADMIT DATE: ?? 02/02/13 ? MICRO - BLOOD BLOOD CULTURE ? Collected: 02/02/132033 ? Received: 02/02/132053 Source: BLOOD ? Started: /15/13 2110 ?1OF2 LAC 634 ?// 0202 ? NO GROWTH AT 1 DAY ?02/08/ 0800 ? NO GROWTH AT 5 DAYS BLOOD CULTURE ? Collected: 02/02/ 2041 ? Received: 02/02/ 2054 Source: BLOOD ? Started: 02/02/ 2111 ?2OF2 LAC 634 ?// 0202 ? NO GROWTH AT 1 DAY ?03//13 0800 ? NO GROWTH AT 5 DAYS ?MICRO - RESPIRATORY THROAT BETA ONLY ?Collected: 02/02/132019 ? Received: 02/02/132045 Source: THROAT ?Started: 02/02/132048 ?THROAT ?02/03/13 0520 ? NEGATIVE NO BETA-HEMOLYTIC STREPTOCOCCI CULTURED ?02/04/1315 ? NEGATIVE NO BETA-HEMOLYTIC STREPTOCOCCI CULTURED ?? END OF CHART us Historical Provider LAB MICROBIOLOGY - GENERA L ORDERABLES Final Result HISTORICAL RESULTS * ELECTROCARDIOGRAPHY (ECG) (02/02/2013) Narrative 02/02/2013 Ordered by an unspecified provider. Historical Provider ECG ORDERABLES Final Res ult documented in this encounter Visit Diagnoses Diagnosis Chronic sinusitis Unspecified sinusitis (chronic) Headache Abdominal pain, epigastric Essential hypertension Unspecified essential hypertension documented in this encounter Care Teams Oil Well Engineer Relationship Specialty Start Date End Date Mendoza Parker MD PCP - General 08/20/08 03/04/13 documented as of this encounter
--- OUTSIDE RECORDS SUMMARY | 2024-11-19 04:55 | XMS_ITS | Encounter Summary ---
Author Organization [facility] Healthcare Address [address] [place] [address] Care Team Providers Care Internal Medicine Hospitalist Name Role Phone Mendoza Parker MD Primary Care Provider [phone]- [phone] Encounter Details Date Type Department Care Team (Late st Contact Info) Description 12/27/2013 12:51 PM KETTLE FIRER - 12/27/2013 3:14 PM KETTLE FIRER Hospital Encounter [facility] CLINCONCorie Ramirez MD [address] [place] [id number] Irritable colon Social History Tobacco Use Types Packs/Day Years Used Date Smoking Tobacco: Former Cigarettes Q uit: 11/21/2003 Alcohol Use Standard Drinks/Week Comments No 0 (1 standard drink = 0.6 oz pur e alcohol) Comments Unknown Sex and Gender Information Value Date Recorded Sex Assigned at Not on file Legal Sex Female 12:46 AM KETTLE FIRER Gender Identity Not on file Sexual Orientation [...] vaginal route 1-2 times per week 1 03/07/2013 7 estradiol (ESTRACE) 0.01 % (0.1 mg/gram) vaginal cream INSERT 1/2 TO 1 GRAM VAGINALLY 1 TO 2 TIMES PER WEEK 42.5 0 03/07/2013 0 documented as of this encounter Plan of Treatment Not on file documented as of this encounter Procedures Procedure Name Priority Date/Time Associated Diagnosis Comments ABDOMINAL, CHEST RADIOGRAPHY, SUPINE, ERECT Routine 12/27/2013 2:44 PM KETTLE FIRER URINALYSIS Routine 12/27/2013 2:43 PM KETTLE FIRER SERUM LIPASE Routine 12/27/2013 2:14 PM KETTLE FIRER SERUM COMPREHENSIVE METABOLIC PANEL Routine 12/27/2013 2:14 PM KETTLE FIRER SERUM AMYLASE Routine 12/27/2013 2:14 PM KETTLE FIRER BLOOD WBC CELL MORPHOLOGIC EXAM, AUTO Routine 12/27/2013 2:14 PM KETTLE FIRER BLOOD CELL COUNT (CBC) Routine 4 2:14 PM KETTLE FIRER DISCHARGE LABORATORY CUMULATIVE REPORT Routine 12/27/2013 12:00 AM KETTLE FIRER documented in this encounter Results * ABDOMINAL, CHEST RADIOGRAPHY, SUPINE, ERECT (12/27/2013 2:44 PM KETTLE FIRER) Anatomical Region Laterality Modality N/A Radiographic Krupa ging 12/27/2013 2:44 PM KETTLE FIRER Narrative 12/28/2013 2:05 PM KETTLE FIRER XR Abd Obst Series W Chest [id number] ??Acc#: ??[id number] DATE OF EXAM: ??Feb ??2013 CLINICAL HISTORY: Abdominal pain and constipation for one week. ??History of irritable bowel syndrome. ??Prior hysterectomy and appendectomy. ??Nonsmoker. RESULT: Supine and erect views of the abdomen demonstrate a nonspecific, nonobstructive bowel gas pattern. ??There is stool and air scattered through colon from cecum to rectosigmoid. ??There are scattered air fluid levels in nondilated colon. ??No dilated small bowel or significant small bowel air fluid levels are seen. ??No free air is identified. ??No organomegaly or abnormal soft tissue mass is seen. ??A few pelvic phleboliths are noted. ??There are also denser round opacities--one over the central pelvis to left of sacrum and one in the gluteal region laterally on each side. ??These were not present on January 30 CT and are suspected to be clothing-related artifacts. Erect PA chest is compared to January 24. ??Heart size is normal. Calcified granulomata are present at the right hilum. ??No parenchymal infiltrate, mass or pleural effusion is seen. ??Mild right hemidiaphragm elevation is an old finding. ??Thoracic aorta is not dilated. ??Bony structures are unremarkable. IMPRESSION: 1. NONSPECIFIC, NONOBSTRUCTIVE BOWEL GAS PATTERN. 2. MODERATE STOOL QUANTITY IN COLON. 3. NO OTHER ACUTE ABDOMINAL FINDINGS. 4. NO ACTIVE CARDIOPULMONARY DISEASE SEEN. 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 6. SMALL ROUND OPACITIES OVERLYING LATERAL GLUTEAL REGION ON EACH SIDE AND IN THE CENTRAL PELVIS; PROBABLE ARTIFACTS EXTRINSIC TO PATIENT AND POSSIBLY RELATED TO CLOTHING IN SOME FASHION. Interpreting Physician: ??KIRSTY ALCAZAR M.D. ??Read on: ??Feb ??6 2013 3:39P Transcribed by: ??dereck ??On: Dec ??6 2013 ??5:39P Approved Electronically by: ??OTTONIEL Talbot, KIRSTY ??on: ??Feb ??7 2013 2:05P Ordering DR: DR CORIE LUNA Attending : DR CORIE LUNA Procedure Note Provider, MD Kip - 03/22/2017 XR Abd Obst Series W Chest [id number] Acc#: [id number] DATE OF EXAM: Dec 27 2013 CLINICAL HISTORY: Abdominal pain and constipation for one week. History of irritable bowelsyndrome. Prior hysterectomy and appendectomy. Nonsmoker. RESULT: Supine and erect views of the abdomen demonstrate a nonspecific,nonobstructive bowel gas pattern. There is stool and air scatteredthrough colon from cecum to rectosigmoid. There are scattered air fluidlevels in nondilated colon. No dilated small bowel or significant smallbowel air fluid levels are seen. No free air is identified. Noorganomegaly or abnormal soft tissue mass is seen. A few pelvicphleboliths are noted. There are also denser round opacities--one overthe central pelvis to left of sacrum and one in the gluteal regionlaterally on each side. These were not present on January [address] and aresuspected to be clothing-related artifacts. Erect PA chest is compared toJanuary 24. Heart size is normal. Calcified granulomata are present atthe right hilum. No parenchymal infiltrate, mass or pleural effusion isseen. Mild right hemidiaphragm elevation is an old finding. Thoracicaorta is not dilated. Bony structures are unremarkable. IMPRESSION: 1. NONSPECIFIC, NONOBSTRUCTIVE BOWEL GAS PATTERN. 2. MODERATE STOOL QUANTITY IN COLON. 3. NO OTHER ACUTE ABDOMINAL FINDINGS. 4. NO ACTIVE CARDIOPULMONARY DISEASE SEEN. 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 6. SMALL ROUND OPACITIES OVERLYING LATERAL GLUTEAL REGION ON EACH SIDE ANDIN THE CENTRAL PELVIS; PROBABLE ARTIFACTS EXTRINSIC TO PATIENT ANDPOSSIBLY RELATED TO CLOTHING IN SOME FASHION. Interpreting Physician: KIRSTY ALCAZAR M.D. Read on: Dec 27 20133:39P Transcribed by: dereck On: Dec 27 2013 5:39P Approved Electronically by: KIRSTY ALCAZAR M.D. on: Dec 28 20132:05P Ordering DR: DR CORIE LUNA Attending DR: DR CORIE LUNA us Historical Provider MD LAWSON XR PROCEDURES Final R esult * Urinalysis (12/27/2013 2:43 PM KETTLE FIRER) Color, ur YELLOW YELLOW HISTORICAL RESULTS Clarity, ur CLEAR CLEAR HISTORIC AL RESULTS Specific gravity, ur 1.004 1.000 - 1.030 gu HISTORICAL RESULTS Leukocyte esterase, ur Negative NEGATIVE HISTORICAL RESULTS Nitrites, ur Negative NEGATIVE HISTORI ERMA RESULTS pH, ur 8.0 6.0 HISTORICAL RESULTS Protein, ur Negative NEGATIVE HISTORIC AL RESULTS Glucose, ur Negative NEGATIVE HISTORIC AL RESULTS Ketones, ur Negative NEGATIVE HISTORIC AL RESULTS Urobilinogen, quant, ur 0.2 0.2 - 1.0 mg/dl HISTORICAL RESULTS Bilirubin, ur Negative NEGATIVE HISTOR ICAL RESULTS U Blood Negative NEGATIVE HISTORICAL RESULTS Urine 12/27/2013 2:43 PM KETTLE FIRER Corie Luna MD LAB BLOOD ORDERABLES Celia l Result Performing Organization Address [facility] Co de Phone Number HISTORICAL RESULTS * Serum lipase (12/27/2013 2:14 PM KETTLE FIRER) Lip 127 70 - 400 Units/L HISTORICAL RESULTS Serum 12/27/2013 2:14 PM KETTLE FIRER Corie Luna MD LAB BLOOD ORDERABLES Celia l Result Performing Organization Address [facility] Co de Phone Number HISTORICAL RESULTS * Blood cell count (CBC) (12/27/2013 2:14 PM KETTLE FIRER) WBC 5.5 4.0 - 10.5 K/cumm HISTORICAL RESULTS RBC 4.42 4.20 - 5.40 M/cumm HISTORICAL RESULTS Hgb 13.1 12.0 - 16.0 g/dl HISTORICAL RESULTS Hct 39.4 37.0 - 47.0 % HISTORICAL RESULTS MCV 89.1 77.0 - 97.0 fl HISTORICAL RESULTS MCH 29.6 23.0 - 34.0 pg HISTORICAL RESULTS MCHC 33.2 32.0 - 36.0 g/dl HISTORICAL RESULTS Rdw 13.2 11.5 - 14.5 % HISTORICAL RESULTS Platelets 310 150 - 451 K/cumm HISTORICAL RESULTS MPV 9.9 7.4 - 10.4 fl HISTORICAL RESULTS Blood specimen (specimen) 12/27/2013 2:14 PM KETTLE FIRER Corie Luna MD LAB BLOOD ORDERABLES Celia l Result Performing Organization Address City/[facility] Co de Phone Number HISTORICAL RESULTS * Serum amylase (12/27/2013 2:14 PM KETTLE FIRER) Pathologist [facility] Lala, sr 46 25 - 115 IUnits/L HISTORICAL RESULTS Comment:PLEASE SEE NEW REFER ENCE RANGE Serum 12/27/2013 2:14 PM KETTLE FIRER Corie Luna MD LAB BLOOD ORDERABLES Celia l Result Performing Organization Address [facility] de Phone Number HISTORICAL RESULTS * (ABNORMAL) Blood WBC cell morphologic exam, auto (12/27/2013 2:14 PM KETTLE FIRER) [facility] Lymphocytes 38.9(H) 25.0 - 33.0 % HISTORICAL RESULTS Monos 5.6 1.0 - 13.0 % HISTORICAL RESULTS Neutrophils 53.0(L) 54.0 - 69.0 % HISTORICAL RESULTS Eosinophils 2.0 0.0 - 10.0 % HISTORICAL RESULTS Basophils 0.5 0.0 - 1.0 % HISTORICAL RESULTS Immature granulocytes 0.0 0.0 - 1.0 % HISTORICAL RESULTS Lymphocytes, abs 2.2 1.2 - 3.4 K/cumm HISTORICAL RESULTS Monocytes, absolute 0.3(L) 1.1 - 1.9 K/cumm HISTORICAL RESULTS Neutrophils, abs 2.9 1.4 - 6.5 K/cumm HISTORICAL RESULTS Eosinophils, abs 0.1 0.0 - 0.7 cells/cum m HISTORICAL RESULTS Basophils, abs 0.0 0.0 - 0.2 K/cumm HISTORICAL RESULTS Immature granulocyte, abs 0.0 0.0 - 0.0 K/cumm HISTORICAL RESULTS Blood specimen (specimen) 12/27/2013 2:14 PM KETTLE FIRER Corie Luna MD LAB BLOOD ORDERABLES Celia l Result Performing Organization Address [facility] Co de Phone Number HISTORICAL RESULTS * (ABNORMAL) Serum comprehensive metabolic panel (12/27/2013 2:14 PM KETTLE FIRER) [facility] BUN 7.0 6.0 - 23.0 mg/dl HISTORICAL RESULTS Sodium 139 134 - 143 mmol/L HISTORICAL RESULTS Potassium, sr 4.4 3.4 - 5.0 mmol/L HISTORICAL RESULTS Chloride 105 99 - 108 mmol/L HISTORICAL RESULTS CO2 30 23 - 32 mmol/L HISTORICAL RESULTS Glucose 95 70 - 199 mg/dl HISTORICAL RESULTS Comment: [...] - 1.30 mg/dl HISTORICAL RESULTS BUN/creat ratio 9(L) 10 - 20 HIST ORICAL RESULTS A. gap 9 7 - 14 mmol/L HISTORICAL RESULTS Protein, sr 7.4 6.4 - 8.0 g/dl HISTORICAL RESULTS Alb 3.9 3.3 - 4.5 g/dl HISTORICAL RESULTS Alb/glob ratio 1.1 1.1 - 1.8 HISTO RICAL RESULTS Calcium 8.9 8.6 - 9.8 mg/dl HISTORICAL RESULTS Bilirubin 0.3 0.0 - 1.1 mg/dl HISTORICAL RESULTS Alk phos 131(H) 44 - 125 Units/L HISTORICAL RESULTS AST 17 5 - 40 Units/L HISTORICAL RESULTS Comment:AST - NOTE REFERENCE RANGE CHANGE ALT 28 15 - 70 Units/L HISTORICAL RESULTS Serum 12/27/2013 2:14 PM KETTLE FIRER us Corie Luna MD LAB BLOOD ORDERABLES Celia desai Result HISTORICAL RESULTS * Discharge Laboratory Cumulative Report (12/27/2013 12:00 AM KETTLE FIRER) 12/27/2013 Narrative HISTORICAL RESULTS - 12/28/2013 12:34 AM KETTLE FIRER Patient No: [id number] ? [facility] Patient Name: DALE BETANCUR ?[facility] Age: 48 YRS ?: 1965 ?Sex:F ?[address] )[id number] ?? Adm Dt: 12/27/2013 ?[place], [place] ??[address] Created: 12/28/2013 ??0034 ?? Pt. Type: E ? Discharge Dt: 12/27/2013 ? Pathologists: Lesley Rowley MD Admit Dr. White Dr: CORIE LUNA MD ? BLOOD CELL COUNTS ?Collection Date: ?02/06/14 ?Collection Time: ?1414 ? Ref Range: ?? Units: [4.00-10.50] /CMM ? WBC X 10^3 ?5.53 [4.20-5.40] ??/CMM ? RBC X 10^6 ?4.42 [12.0-16.0] ??G/DL ? HGB ? 13.1 [37.0-47.0] ??% ?HCT ? 39.4 [77.0-97.0] ??FL ? MCV ? 89.1 [23.0-34.0] ??PG ? MCH ? 29.6 [32.0-36.0] ??% ?MCHC ?33.2 [11.5-14.5] ??% ?RDW ? 13.2 [150-451] ?? /CMM ? PLT X 10^3 ? 310 ?BLOOD CELL DIFFERENTIAL ?Collection Date: ?12/27/13 ?Collection Time: ?1414 ? Ref Range: ?? Units: [54.0-69.0] ??% ?NEUTROPHILS ? 53.0 L [25.0-33.0] ??% ?LYMPHOCYTES ? 38.9 H [1.0-13.0] ??% ?MONOCYTES ?5.6 [0.0-10.0] ??% ?EOSINOPHILS ?2.0 [0.0-1.0] ?? % ?BASOPHILS ?0.5 ? /CMM ? A LYMPHOCYTE ? 2.2 [0.0-1.0] ?? % ?IMM GRAN % ? 0.0 [0.00-0.02] ??/CMM ? A IMM GRAN ?0.00 [1.1-1.9] ?? /CMM ? A MONOCYTE ? 0.3 L [1.4-6.5] ?? /CMM ? A NEUTROPHIL ? 2.9 [0.0-0.7] ?? /CMM ? A EOSINOPHIL ? 0.1 [0.0-0.2] ?? /CMM ? A BASOPHIL ? 0.0 Footnotes and Symbols: L = Low, H = High ?? CONTINUED ?Page: ?? 1 Patient No: [id number] ? [facility] Patient Name: DALE BETANCUR ?[facility] Age: 48 YRS ?: 1965 ?Sex:F ?[address] )[id number] ?? Adm Dt: 12/27/2013 ?[place], [place] ??[address] Created: 12/28/2013 ??0034 ?? Pt. Type: E ? Discharge Dt: 12/27/2013 ? Pathologists: Lesley Rowley MD Admit Dr. Christopher Hollingsworth: CORIE LUNA MD ? GENERAL CHEMISTRY ?Collection Date: ?12/27/13 ?Collection Time: ?1414 ? Ref Range: ?? Units: [134-143] ?? MMOL/L ? SODIUM ? 139 [3.4-5.0] ?? MMOL/L ? POTASSIUM ?4.4 [99.0-108.0] MMOL/L ? CHLORIDE ? 105.0 [23.0-32.0] ??MMOL/L ? TOTAL CO2 ? 29.7 ?? [7-14] ?MMOL/L ? ANION GAP ?9 ??[70-199] ?? MG/DL ?GLUCOSE ? 95 f [6.4-8.0] ?? G/DL ? TOTAL PROTEIN ?7.4 [3.3-4.5] ?? G/DL ? ALBUMIN ?3.9 [1.1-1.8] ?A/G RATIO ?1.1 [8.6-9.8] ?? MG/DL ?CALCIUM ?8.9 [0.0-1.1] ?? MG/DL ?BILI TOTAL ? 0.3 ??[44-125] ?? U/L ?ALK PHOS ? 131 H ?? [5-40] ?U/L ?AST(SGOT) ? 17 f ??[15-70] ?U/L ?ALT(SGPT) ? 28 f [6.0-23.0] ??MG/DL ?BUN ?7.0 ??[10-20] ? B/C RATIO ?9 L [0.60-1.30] ??MG/DL ?CREATININE ?0.81 Footnotes and Symbols: L = Low, H = High, f = Footnote GLUCOSE [...] RANGE CHANGE ALT(SGPT) (06/12/13 -- Current) ?? CONTINUED ?Page: ?? 2 Patient No: [id number] ? [facility] Patient Name: DALE BETANCUR ?[facility] Age: 48 YRS ?: 1965 ?Sex:F ?[address] )[id number] ?? Adm Dt: 12/27/2013 ?[place] ??[address] Created: 12/28/2013 ??0034 ?? Pt. Type: E ? Discharge Dt: 12/27/2013 ? Pathologists: Lesley Rowley MD Admit Attend Dr: CORIE LUNA MD ? GENERAL CHEMISTRY ?Collection Date: ?12/27/13 ?Collection Time: ?1414 ? Ref Range: ?? Units: ??[25-115] ?? U/L ?AMYLASE ? 46 f ??[70-400] ?? U/L ?LIPASE ? 127 ?URINALYSIS ?Collection Date: ?02/14 ?Collection Time: ?1443 ? Ref Range: ?? Units: [YELLOW] ? U COLOR ? YELLOW ??[CLEAR] ? U APPEARANCE ? CLEAR [1.000-1.030] ? U SPEC GRAVITY ? 1.004 [NEGATIVE] ?U LEUKO ESTRASE ? NEGATIVE [NEGATIVE] ?U NITRITE ? NEGATIVE ?? [6.0] ?U PH ? 8.0 [NEGATIVE] ?U PROTEIN ? NEGATIVE [NEGATIVE] ?U GLUCOSE ? NEGATIVE [NEGATIVE] ?U KETONES ? NEGATIVE [0.2- 1.0] ?UROBILINOGEN ? 0.2 [NEGATIVE] ?U BILIRUBIN ? NEGATIVE [NEGATIVE] ?U BLOOD ? NEGATIVE Footnotes and Symbols: f = Footnote AMYLASE (10/07/10 -- Current) PLEASE SEE NEW REFERENCE RANGE ?? END OF CHART ? Page: ?? 3 us Historical Provider LAB BLOOD ORDERABLES Celia l Result HISTORICAL RESULTS documented in this encounter Visit Diagnoses Diagnosis Irritable colon documented in this encounter Care Teams Internal Medicine Hospitalist Relationship Specialty Start Date End Date Mendoza Parker MD PCP - General 03/05/13 06/02/15 documented as of this encounter
--- OUTSIDE RECORDS SUMMARY | 2024-11-19 04:55 | XMS_ITS | Encounter Summary ---
Author Organization [facility] Healthcare Address [address] [place] [address] Care Team Providers Care Household Appliance Mechanic Name Role Phone Mendoza Parker MD Primary Care Provider [phone]- [phone] Encounter Details Date Type Department Care Team (Late st Contact Info) Description 03/05/2015 12:44 PM CDT - 03/05/2015 11:59 PM CDT Hospital Encounter [facility] CLINCONPolina Heredia MD [address] [place] [address] Other specified abnormal findings of blood chemistry Social History Tobacco Use Types Packs/Day Years Used Date Smoking Tobacco: Former Cigarettes Q uit: 11/21/2003 Alcohol Use Standard Drinks/Week Comments No 0 (1 standard drink = 0.6 oz pur e alcohol) Comments Unknown Sex and Gender Information Value Date Recorded Sex Assigned at Not on file Legal Sex Female 12:46 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 30 11 10/08/2014 8 omeprazole (PriLOSEC) 10 mg capsule take 2 [...] Diagnosis Comments DISCHARGE CUMULATIVE SUMMARY ADDENDUM Routine 03/12/2015 12:42 AM CDT SERUM HEPATITIS C AB Routine 03/05/2015 12:55 PM CDT SERUM HEPATITIS B SURFACE AG Routine 03/05/2015 12:55 PM CDT SERUM HEPATIC FUNCTION PANEL Routine 03/05/2015 12:55 PM CDT REFERENCE LABORATORY MISCELLANEOUS TESTING 03/05/2015 DISCHARGE LABORATORY CUMULATIVE REPORT Routine 03/05/2015 12:00 AM CDT documented in this encounter Results * Discharge Cumulative Summary Addendum (03/12/2015 12:42 AM CDT) 03/12/2015 12:4 2 AM CDT Narrative HISTORICAL RESULTS - 03/12/2015 12:42 AM CDT Patient No: [id number] ? [facility] Patient Name: DALE BETANCUR ?[facility] Age: 49 YRS ?: 1965 ?Sex:F ?[address] )[id number] ?? Adm Dt: 03/05/2015 ?[place], [place] ??[address] Created: 03/12/2015 ??0042 ?? Pt. Type: R ? Discharge Dt: 03/05/2015 ? Pathologists: Lesley Rowley MD Admit Dr. White Dr: POLINA OTOOLE MD ?[facility] ?Collection Date: ?04/15/15 ?Collection Time: ?1255 ? Ref Range: ?? Units: ?HBSAG @ ? SEE REPT ? [facility] ?? [id number] ?? [place] [address] ?Collection Date: ?03/05/15 ?Collection Time: ?1255 ? Ref Range: ?? Units: ?HEPATITIS C AB @ ?SEE REPT @ = HBSAG, HEPATITIS C AB Performed at ??[facility] [place], [place] ?? END OF CHART ? Page: ?? 1 us Historical Provider LAB MICROBIOLOGY - GENERA L ORDERABLES Final Result HISTORICAL RESULTS * Serum Hepatitis B surface ag (03/05/2015 12:55 PM CDT) HBV surface ag See Report HIST ORICAL RESULTS Serum 03/05/2015 12:5 5 PM CDT Polina Otoole MD LAB BLOOD ORDERABLES Final Result Performing Organization Address [facility] de Phone Number HISTORICAL RESULTS * Serum Hepatitis C ab (03/05/2015 12:55 PM CDT) Pathologist [facility] HCV ab See Report HISTORICA L RESULTS Serum 03/05/2015 12:5 5 PM CDT Polina Otoole MD LAB BLOOD ORDERABLES Final Result Performing Organization Address [facility] de Phone Number HISTORICAL RESULTS * Serum hepatic function panel (03/05/2015 12:55 PM CDT) Pathologist [facility] AST 19 10 - 40 Units/L HISTORICAL RESULTS ALT 19 5 - 45 Units/L HISTORICAL RESULTS Alk phos 111 40 - 130 Units/L HISTORICAL RESULTS Bilirubin 0.4 0.1 - 1.2 mg/dl HISTORICAL RESULTS Bilirubin, direct <0.2 0.0 - 0.3 mg/dl HISTORICAL RESULTS Alb 4.5 3.6 - 5.0 g/dl HISTORICAL RESULTS Protein, sr 7.3 6.2 - 8.2 g/dl HISTORICAL RESULTS Serum 03/05/2015 12:5 5 PM CDT Polina Otoole MD LAB BLOOD ORDERABLES Final Result Performing Organization Address [facility] Phone Number HISTORICAL RESULTS * REFERENCE LABORATORY MISCELLANEOUS TESTING (03/05/2015) Narrative 03/05/2015 Ordered by an unspecified provider. Historical Provider LAB BLOOD ORDERABLES Celia l Result * Discharge Laboratory Cumulative Report (03/05/2015 12:00 AM CDT) 03/05/2015 Narrative HISTORICAL RESULTS - 03/07/2015 12:41 AM CDT Patient No: [id number] ? [facility] Patient Name: DALE BETANCUR ?[facility] Age: 49 YRS ?: 1965 ?Sex:F ?[address] )[id number] ?? Adm Dt: 03/05/2015 ?[place], [place] ??[address] Created: 03/07/2015 ??0041 ?? Pt. Type: R ? Discharge Dt: 03/05/2015 ? Pathologists: Lesley Rowley MD Admit Dr. White Dr: POLINA OTOOLE MD ? GENERAL CHEMISTRY ?Collection Date: ?04/15/15 ?Collection Time: ?1255 ? Ref Range: ?? Units: [6.2-8.2] ?? G/DL ? TOTAL PROTEIN ?7.3 [3.6-5.0] ?? G/DL ? ALBUMIN ?4.5 [0.0-0.3] ?? MG/DL ?BILI DIRECT ? <0.2 [0.1-1.2] ?? MG/DL ?BILI TOTAL ? 0.4 ??[40-130] ?? U/L ?ALK PHOS ? 111 ??[10-40] ?U/L ?AST(SGOT) ? 19 f ?? [5-45] ?U/L ?ALT(SGPT) ? 19 f Footnotes and Symbols: f = Footnote AST(SGOT) (04/04/14 -- Current) ALT(SGPT) (06/12/13 -- Current) ?? END OF CHART ? Page: ?? 1 us Historical Provider LAB BLOOD ORDERABLES Celia desai Result HISTORICAL RESULTS documented in this encounter Visit Diagnoses Diagnosis Other specified abnormal findings of blood chemistry documented in this encounter Care Teams Household Appliance Mechanic Relationship Specialty Start Date End Date Mendoza Parker MD PCP - General 03/05/13 06/02/15 documented as of this encounter
--- OUTSIDE RECORDS SUMMARY | 2024-11-19 04:55 | XMS_ITS | Encounter Summary ---
Author Organization [facility] Healthcare Address [address] [place] [address] Care Team Providers Care User Acceptance Tester Name Role Phone Mendoza Parker MD Primary Care Provider [phone]- [phone] Encounter Details Date Type Department Care Team (Late st Contact Info) Description 09/19/2012 12:42 PM CDT - 09/19/2012 3:15 PM CDT Hospital Encounter [facility] Jacob Bueno MD [address] [facility] [address] [place] [address] Abdominal pain; Essential hypertension Social History Tobacco Use Types Packs/Day Years Used Date Smoking Tobacco: Never Assessed Comments Unknown Sex and Gender Information Value Date Recorded Sex Assigned at Not on file Legal Sex Female 12:46 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
--- OUTSIDE RECORDS SUMMARY | 2024-11-19 04:55 | XMS_ITS | Encounter Summary ---
Author Organization [facility] Address [address] [place] [address] Care Team Providers Care Geology Professor Name Role Phone Mendoza Parker MD Primary Care Provider [phone]- [phone] Mendoza Parker MD Primary Care Provider [phone]- [phone] Mendoza Parker MD Primary Care Provider +1- [phone] Mendoza Parker MD Primary Care Provider [phone]- [phone] Mendoza Parker MD Primary Care Provider [phone]- [phone] Margarito العراقي MD Primary Care Provider [phone] Raymond Vela MD Unavailable [phone] Encounter Details Date Type Department Care Team (Late st Contact Info) Description 01/15/2014 Orders Only [facility] Health Information Management [address] [place] [address] Scanning, Provider Social History Tobacco Use Types Packs/Day Years Used Date Smoking Tobacco: Former Cigarettes Q uit: 11/21/2003 Alcohol Use Standard Drinks/Week Comments No 0 (1 standard drink = 0.6 oz pur e alcohol) Comments Unknown Sex and Gender Information Value Date Recorded Sex Assigned at Not on file Legal Sex Female 12:46 AM CONTROL SYSTEMS ENG Gender Identity Not on file Sexual Orientation Not on file documented as of this encounter Plan of Treatment Not on file documented as of this encounter Procedures Procedure Name Priority Date/Time Associated Diagnosis Comments SCAN - RADIOLOGY/IMAGING 01/15/2014 documented in this encounter Results * SCAN - RADIOLOGY/IMAGING (01/15/2014) Anatomical Region Laterality Modality Other us Provider Scanning Final Result documented in this encounter Visit Diagnoses Not on filedocumented in this encounter Additional Health Concerns Infection Onset Date Last Indicated Resolved Time COVID: Suspected 02/20/2024 02/20/2024 02/20/2024 2:54 PM CDT documented as of this encounter Care Teams Geology Professor Relationship Specialty Start Date End Date Mendoza Parker MD PCP - General 02/18/17 06/12/20 Mendoza Parker MD PCP - General 11/18/15 02/17/17 Mendoza Parker MD PCP - General 06/03/15 11/17/15 Mendoza Parker MD PCP - General 03/05/13 06/02/15 Mendoza Parker MD PCP - General 06/13/20 09/03/20 Margarito العراقي MD [address] [place] [address] PCP - General Family Medicine 09/04/20 Raymond Vela MD [address] [place] [address] Referring Physician Obstetrics and Gynecology 08/17/21 documented as of this encounter
--- OUTSIDE RECORDS SUMMARY | 2024-11-19 04:55 | XMS_ITS | Encounter Summary ---
Author Organization [facility] Healthcare Address [address] [place] [address] Care Team Providers Care Economics Instructor Name Role Phone Mendoza Parker MD Primary Care Provider +1- [phone] Encounter Details Date Type Department Care Team (Late st Contact Info) Description 05/20/2014 2:49 PM CDT - 05/20/2014 11:59 PM CDT Hospital Encounter [facility] Urbano Delacruz MD [address] [id number] Vitamin D deficiency; Disorder of bone and cartilage Social History Tobacco Use Types Packs/Day Years Used Date Smoking Tobacco: Former Cigarettes Q uit: 11/21/2003 Alcohol Use Standard Drinks/Week Comments No 0 (1 standard drink = 0.6 oz pur e alcohol) Comments Unknown Sex and Gender Information Value Date Recorded Sex Assigned at Not on file 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 Gender Identity Not on file Sexual [...] Diagnosis Comments DISCHARGE CUMULATIVE SUMMARY ADDENDUM Routine 06/08/2014 2:41 AM CDT SERUM COMPREHENSIVE METABOLIC PANEL Routine 05/20/2014 3:00 PM CDT PLASMA PARATHYROID HORMONE (PTH), INTACT Routine 05/20/2014 3:00 PM CDT BLOOD WBC CELL MORPHOLOGIC EXAM, AUTO Routine 05/20/2014 3:00 PM CDT BLOOD CELL COUNT (CBC) Routine 4 3:00 PM CDT SERUM 25-HYDROXYCHOLECALCIFE ROL (VITAMIN D) Routine 05/20/2014 10:00 AM CDT DISCHARGE LABORATORY CUMULATIVE REPORT Routine 05/20/2014 12:00 AM CDT documented in this encounter Results * Discharge Cumulative Summary Addendum (06/08/2014 2:41 AM CDT) 06/08/2014 2:41 AM CDT Narrative HISTORICAL RESULTS - 06/08/2014 2:41 AM CDT Patient No: [id number] ? [facility] Patient Name: DALE BETANCUR ?[facility] Healthcare Age: 48 YRS ?: 1965 ?Sex:F ?[address] )[phone] ?? Adm Dt: 05/20/2014 ?[place], [place] ??[address] Created: 06/08/2014 ??0241 ?? Pt. Type: R ? Discharge Dt: 05/20/2014 ? Pathologists: Lesley Rowley MD Admit Dr. Christopher Hollingsworth: URBANO DELACRUZ M.D. ? GENERAL CHEMISTRY ?Collection Date: ?05/20/14 ?Collection Time: ?1500 ? Ref Range: ?? Units: [134-143] ?? MMOL/L ? SODIUM ? 142 [3.4-5.0] ?? MMOL/L ? POTASSIUM ?4.0 [99.0-108.0] MMOL/L ? CHLORIDE ? 107.0 [23.0-32.0] ??MMOL/L ? TOTAL CO2 ? 32.1 H ?? [7-14] ?MMOL/L ? ANION GAP ?7 ??[70-199] ?? MG/DL ?GLUCOSE ? 99 f [6.4-8.0] ?? G/DL ? TOTAL PROTEIN ?7.1 [3.3-4.5] ?? G/DL ? ALBUMIN ?3.7 [1.1-1.8] ?A/G RATIO ?1.1 [8.6-9.8] ?? MG/DL ?CALCIUM ?8.6 [0.0-1.1] ?? MG/DL ?BILI TOTAL ? 0.3 ??[44-125] ?? U/L ?ALK PHOS ? 158 H ?? [5-40] ?U/L ?AST(SGOT) ? 16 f ??[15-70] ?U/L ?ALT(SGPT) ? 24 f [6.0-23.0] ??MG/DL ?BUN ? 12.0 f ?05/20/14 1500 FAXED TO [id number] 06/07/14 13:14 [id number] FOOTNOTE ADDED ON ?? 06/07/14 ?? AT 1314 BY [id number] ??[10-20] ? B/C RATIO ? 16 Footnotes and Symbols: H = High, f [...] glucose. New reference ranges implemented 10/01/2013. AST(SGOT) (04/04/14 -- Current) ALT(SGPT) (06/12/13 -- Current) ?? CONTINUED ?Page: ?? 1 Patient No: [id number] ? [facility] Patient Name: DALE BETANCUR ?[facility] Healthcare Age: 48 YRS ?: 1965 ?Sex:F ?[address] )[phone] ?? Adm Dt: 05/20/2014 ?[place] ??[id number] Created: 06/08/2014 ??0241 ?? Pt. Type: R ? Discharge Dt: 05/20/2014 ? Pathologists: Lesley Rowley MD Admit Dr. White Dr: URBANO DELACRUZ M.D. ? GENERAL CHEMISTRY ?Collection Date: ?05/20/14 ?Collection Time: ?1500 ? Ref Range: ?? Units: [0.60-1.30] ??MG/DL ?CREATININE ?0.76 ?? END OF CHART ? Page: ?? 2 Historical Provider MD LAB MICROBIOLOGY - GENERA L ORDERABLES Final Result Performing Organization Address [facility] de Phone Number HISTORICAL RESULTS * Blood cell count (CBC) (05/20/2014 3:00 PM CDT) WBC 6.4 4.0 - 10.5 K/cumm HISTORICAL RESULTS RBC 4.20 4.20 - 5.40 M/cumm HISTORICAL RESULTS Hgb 12.4 12.0 - 16.0 g/dl HISTORICAL RESULTS Hct 37.7 37.0 - 47.0 % HISTORICAL RESULTS MCV 89.8 77.0 - 97.0 fl HISTORICAL RESULTS MCH 29.5 23.0 - 34.0 pg HISTORICAL RESULTS MCHC 32.9 32.0 - 36.0 g/dl HISTORICAL RESULTS Rdw 13.1 11.5 - 14.5 % HISTORICAL RESULTS Platelets 308 150 - 400 K/cumm HISTORICAL RESULTS MPV 10.3 7.4 - 10.4 fl HISTORICAL RESULTS Blood specimen (specimen) 05/20/2014 3:00 PM CDT Historical Provider MD LAB BLOOD ORDERABLES Celia l Result Performing Organization Address [facility] de Phone Number HISTORICAL RESULTS * (ABNORMAL) Blood WBC cell morphologic exam, auto (05/20/2014 3:00 PM CDT) Lymphocytes 35.1(H) 25.0 - 33.0 % HISTORICAL RESULTS Monos 6.3 0.0 - 13.0 % HISTORICAL RESULTS Neutrophils 56.0 54.0 - 69.0 % HISTORICAL RESULTS Eosinophils 1.9 0.0 - 10.0 % HISTORICAL RESULTS Basophils 0.5 0.0 - 1.0 % HISTORICAL RESULTS Immature granulocytes 0.2 0.0 - 1.0 % HISTORICAL RESULTS Lymphocytes, abs 2.2 1.2 - 3.4 K/cumm HISTORICAL RESULTS Monocytes, absolute 0.4(L) 1.1 - 1.9 K/cumm HISTORICAL RESULTS Neutrophils, abs 3.6 1.4 - 6.5 K/cumm HISTORICAL RESULTS Eosinophils, abs 0.1 0.0 - 0.7 cells/cum m HISTORICAL RESULTS Basophils, abs 0.0 0.0 - 0.2 K/cumm HISTORICAL RESULTS Immature granulocyte, abs 0.0 0.0 - 0.0 K/cumm HISTORICAL RESULTS Blood specimen (specimen) 05/20/2014 3:00 PM CDT us Historical Provider LAB BLOOD ORDERABLES Celia l Result HISTORICAL RESULTS * (ABNORMAL) Serum comprehensive metabolic panel (05/20/2014 3:00 PM CDT) BUN 12.0 6.0 - 23.0 mg/dl HISTORICAL RESULTS Comment: BUN ? CORRECTED FROM ? 12.0 ON 06/07/14 AT 1314 BY [id number] FAXED TO [id number] 06/07/14 13:14 [id number] Sodium 142 134 - 143 mmol/L HISTORICAL RESULTS Potassium, sr 4.0 3.4 - 5.0 mmol/L HISTORICAL RESULTS Chloride 107 99 - 108 mmol/L HISTORICAL RESULTS CO2 32(H) 23 - 32 mmol/L HISTORICAL RESULTS Glucose 99 70 - 199 mg/dl HISTORICAL RESULTS Comment: [...] glucose. New reference ranges implemented 10/01/2013. Creatinine 0.76 0.60 - 1.30 mg/dl HISTORICAL RESULTS BUN/creat ratio 16 10 - 20 HIST ORICAL RESULTS A. gap 7 7 - 14 mmol/L HISTORICAL RESULTS Protein, sr 7.1 6.4 - 8.0 g/dl HISTORICAL RESULTS Alb 3.7 3.3 - 4.5 g/dl HISTORICAL RESULTS Alb/glob ratio 1.1 1.1 - 1.8 HISTO RICAL RESULTS Calcium 8.6 8.6 - 9.8 mg/dl HISTORICAL RESULTS Bilirubin 0.3 0.0 - 1.1 mg/dl HISTORICAL RESULTS Alk phos 158(H) 44 - 125 Units/L HISTORICAL RESULTS AST 16 5 - 40 Units/L HISTORICAL RESULTS ALT 24 15 - 70 Units/L HISTORICAL RESULTS Serum 05/20/2014 3:00 PM CDT Historical Provider MD LAB BLOOD ORDERABLES Celia l Result Performing Organization Address [facility] Co de Phone Number HISTORICAL RESULTS * Plasma parathyroid hormone (PTH), intact (05/20/2014 3:00 PM CDT) Calcium 8.6 8.6 - 9.8 mg/dl HISTORICAL RESULTS PTH, intact 58 14 - 72 pg/ml HISTORICAL RESULTS Plasma 05/20/2014 3:00 PM CDT [facility] Provider MD LAB BLOOD ORDERABLES Celia l Result Performing Organization Address [facility] Co de Phone Number HISTORICAL RESULTS * Serum 25-hydroxycholecalciferol (vitamin D) (05/20/2014 10:00 AM CDT) 25-OH Vit D 44 30 - 80 ng/ml HISTORICAL RESULTS Serum 05/20/2014 10:0 0 AM CDT Narrative HISTORICAL RESULTS - 05/21/2014 4:46 AM CDT Fluorescein dye used in some angiography procedures interferes with the Vitamin D assay, falsely elevating the result. Vitamin D should not be performed within 3 days of fluorescein use, longer in patients with renal insufficiency, to avoid this interference. Historical Provider MD LAB BLOOD ORDERABLES Celia l Result Performing Organization Address [facility] Co de Phone Number HISTORICAL RESULTS * Discharge Laboratory Cumulative Report (05/20/2014 12:00 AM CDT) 05/20/2014 Narrative HISTORICAL RESULTS - 05/22/2014 12:38 AM CDT Patient No: [id number] ? [facility] Patient Name: DALE BETANCUR ?[facility] Age: 48 YRS ?: 1965 ?Sex:F ?[address] )[phone] ?? Adm Dt: 05/20/2014 ?[place], [place] ??[address] Created: 05/22/2014 ??0038 ?? Pt. Type: R ? Discharge Dt: 05/20/2014 ? Pathologists: Lesley Rowley MD Admit Dr. White Dr: ? BLOOD CELL COUNTS ?Collection Date: ?05/20/14 ?Collection Time: ?1500 ? Ref Range: ?? Units: [4.00-10.50] /CMM ? WBC X 10^3 ?6.38 [4.20-5.40] ??/CMM ? RBC X 10^6 ?4.20 [12.0-16.0] ??G/DL ? HGB ? 12.4 [37.0-47.0] ??% ?HCT ? 37.7 [77.0-97.0] ??FL ? MCV ? 89.8 [23.0-34.0] ??PG ? MCH ? 29.5 [32.0-36.0] ??% ?MCHC ?32.9 [11.5-14.5] ??% ?RDW ? 13.1 [150-400] ?? /CMM ? PLT X 10^3 ? 308 ?BLOOD CELL DIFFERENTIAL ?Collection Date: ?05/20/14 ?Collection Time: ?1500 ? Ref Range: ?? Units: [54.0-69.0] ??% ?NEUTROPHILS ? 56.0 [25.0-33.0] ??% ?LYMPHOCYTES ? 35.1 H [0.0-13.0] ??% ?MONOCYTES ?6.3 [0.0-10.0] ??% ?EOSINOPHILS ?1.9 [0.0-1.0] ?? % ?BASOPHILS ?0.5 ? /CMM ? A LYMPHOCYTE ? 2.2 [0.0-1.0] ?? % ?IMM GRAN % ? 0.2 [0.00-0.02] ??/CMM ? A IMM GRAN ?0.01 [1.1-1.9] ?? /CMM ? A MONOCYTE ? 0.4 L [1.4-6.5] ?? /CMM ? A NEUTROPHIL ? 3.6 [0.0-0.7] ?? /CMM ? A EOSINOPHIL ? 0.1 [0.0-0.2] ?? /CMM ? A BASOPHIL ? 0.0 Footnotes and Symbols: L = Low, H = High ?? CONTINUED ?Page: ?? 1 Patient No: [id number] ? [facility] Patient Name: DALE BETANCUR ?[facility] Age: 48 YRS ?: 1965 ?Sex:F ?[address] )[id number] ?? Adm Dt: 05/20/2014 ?[place], [place] ??[address] Created: 05/22/2014 ??0038 ?? Pt. Type: R ? Discharge Dt: 05/20/2014 ? Pathologists: Lesley Rowley MD Admit Dr. White Dr: ? GENERAL CHEMISTRY ?Collection Date: ?05/20/14 ?Collection Time: ?1500 ? Ref Range: ?? Units: [134-143] ?? MMOL/L ? SODIUM ? 142 [3.4-5.0] ?? MMOL/L ? POTASSIUM ?4.0 [99.0-108.0] MMOL/L ? CHLORIDE ? 107.0 [23.0-32.0] ??MMOL/L ? TOTAL CO2 ? 32.1 H ?? [7-14] ?MMOL/L ? ANION GAP ?7 ??[70-199] ?? MG/DL ?GLUCOSE ? 99 f [6.4-8.0] ?? G/DL ? TOTAL PROTEIN ?7.1 [3.3-4.5] ?? G/DL ? ALBUMIN ?3.7 [1.1-1.8] ?A/G RATIO ?1.1 [8.6-9.8] ?? MG/DL ?CALCIUM ?8.6 [0.0-1.1] ?? MG/DL ?BILI TOTAL ? 0.3 ??[44-125] ?? U/L ?ALK PHOS ? 158 H ?? [5-40] ?U/L ?AST(SGOT) ? 16 f ??[15-70] ?U/L ?ALT(SGPT) ? 24 f [6.0-23.0] ??MG/DL ?BUN ? 12.0 ??[10-20] ? B/C RATIO ? 16 [0.60-1.30] ??MG/DL ?CREATININE ?0.76 Footnotes and Symbols: H = High, f [...] glucose. New reference ranges implemented 10/01/2013. AST(SGOT) (04/04/14 -- Current) ALT(SGPT) (06/12/13 -- Current) ?? CONTINUED ?Page: ?? 2 Patient No: [id number] ? [facility] Patient Name: DALE BETANCUR ?[facility] Age: 48 YRS ?: 1965 ?Sex:F ?[address] )[phone] ?? Adm Dt: 05/20/2014 ?[place] ??[id number] Created: 05/22/2014 ??0038 ?? Pt. Type: R ? Discharge Dt: 05/20/2014 ? Pathologists: Lelsey Rowley MD Admit Dr. Christopher Hollingsworth: ? [facility] ?Collection Date: ?/30/14 ?Collection Time: ?1500 ? Ref Range: ?? Units: ??[14-72] ?pg/ml ?Intact PTH ?58 [8.6-9.8] ?? MG/DL ?CALCIUM ?8.6 ?SPECIAL CHEMISTRY ?Collection Date: ?05/20/14 ?Collection Time: ?1500 ? Ref Range: ?? Units: ??[30-80] ?ng/mL ?25OH VITAMIN D ?44 f Footnotes and Symbols: f = Footnote 25OH VITAMIN D (05/09/14 -- Current) Fluorescein dye used in some angiography procedures interferes with the Vitamin D assay, falsely elevating the result. Vitamin D should not be performed within 3 days of fluorescein use, longer in patients with renal insufficiency, to avoid this interference. ?? END OF CHART ? Page: ?? 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
--- OUTSIDE RECORDS SUMMARY | 2024-11-19 04:55 | XMS_ITS | Encounter Summary ---
Author Organization [facility] Care Team Providers Care Business Planner Name Role Phone Mendoza Parker MD Primary Care Provider +1- [phone] Encounter Details Date Type Department Care Team (Latest Contact Info) Description 07/08/2014 3:10 PM CDT - 07/08/2014 4:00 PM CDT Hospital Encounter [facility] CLINCONV Becky Donald, SENIOR QUALITATIVE RESEARCHER [address] 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 FINAL REPORT ACC# ??Date Time ??Exam [id number] Jul 08, 2014 15:25:00 [id number] Spine Lumbar 2 or 3 views EXAMINATION: ?Lumbar spine 2 or 3 views HISTORY: ??Lumbar spondylosis FINDINGS: ?? AP and lateral views of the lumbar spine are performed with comparison to lumbar spine radiographs on 05/27/2014. There is mild levocurvature of the lumbar spine with apex at L3. Sagittal alignment is normal. Minimal compression of the L4 superior end plate is unchanged from prior study. There is mild L3-L4 degenerative disc disease. IMPRESSION: ?? 1. Unchanged mild L4 superior endplate compression fracture. 2. Unchanged mild L3-L4 degenerative disc disease. Requested By: BECKY DONALD ANP Dictated By: ?? JAIR BOUCHER M.D. ??on Jul 08 2014 ??3:34P This document has been electronically signed by: JAIR BOUCHER M.D. on Jul 08 2014 ??3:34P Procedure Note Provider, Kip, - 03/22/2017 JAIR BOUCHER M.D. FINAL REPORT ACC# Date Time Exam [id number] Jul 08, 2014 15:25:00 [id number] Spine Lumbar 2 or 3 views EXAMINATION: Lumbar spine 2 or 3 views HISTORY: Lumbar spondylosis FINDINGS: AP and lateral views of the lumbar spine are performed with comparison to lumbar spine radiographs on 05/27/2014. There is mild levocurvature of the lumbar spine with apex at L3. Sagittal alignment is normal. Minimal compression of the L4 superior end plate is unchanged from prior study. There is mild L3-L4 degenerative disc disease. IMPRESSION: 1. Unchanged mild L4 superior endplate compression fracture. 2. Unchanged mild L3-L4 degenerative disc disease. Requested By: BECKY DONALD ANP Dictated By: JAIR BOUCHER M.D. on Jul 08 2014 3:34P This document has been electronically signed by: JAIR BOUCHER M.D. on Jul 08 2014 3:34P us Historical Provider IMG XR PROCEDURES Final R esult documented in this encounter Visit Diagnoses Diagnosis Degeneration of lumbar or lumbosacral intervertebral disc documented in this encounter Care Teams Business Planner Relationship Specialty Start Date End Date Mendoza Parker MD PCP - General 03/05/13 06/02/15 documented as of this encounter
--- OUTSIDE RECORDS SUMMARY | 2024-11-19 04:55 | XMS_ITS | Encounter Summary ---
Author Organization [facility] Healthcare Address [address] [place] [address] Care Team Providers Care Classified Advertising Clerk Name Role Phone Mendoza Parker MD Primary Care Provider +1- [phone] Encounter Details Date Type Department Care Team (Late st Contact Info) Description 11/25/2015 1:57 PM STITCHER FEEDER - 11/25/2015 11:59 PM STITCHER FEEDER Hospital Encounter [facility] Wes Guzmán MD [address] [place] [address] [address] Social History Tobacco Use Types Packs/Day Years Used Date Smoking Tobacco: Former Cigarettes Q uit: 11/21/2003 Alcohol Use Standard Drinks/Week Comments No 0 (1 standard drink = 0.6 oz pur e alcohol) Comments Unknown Sex and Gender Information Value Date Recorded Sex Assigned at Not on file 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
--- OUTSIDE RECORDS SUMMARY | 2024-11-19 04:55 | XMS_ITS | Encounter Summary ---
Author Organization [facility] Healthcare Address [address] [place] [address] Care Team Providers Care Pneumatic Deicer Inspector Name Role Phone Mendoza Parker MD Primary Care Provider +1- [phone] Encounter Details Date Type Department Care Team (Late st Contact Info) Description 08/27/2013 11:40 AM CDT - 08/27/2013 11:59 PM CDT Hospital Encounter [facility] CLINCONUrbano Tay MD [address] [id number] Disorder of bone and cartilage Social History Tobacco Use Types Packs/Day Years Used Date Smoking Tobacco: Former Cigarettes Q uit: 11/21/2003 Alcohol Use Standard Drinks/Week Comments No 0 (1 standard drink = 0.6 oz pur e alcohol) Comments Unknown Sex and Gender Information Value Date Recorded Sex Assigned at Not on file 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 Gender Identity Not on file Sexual [...] Diagnosis Comments DISCHARGE CUMULATIVE SUMMARY ADDENDUM Routine 08/31/2013 12:28 AM CDT SERUM 25-HYDROXYCHOLECALCI FEROL (VITAMIN D) Routine 08/27/2013 12:00 PM CDT SERUM 1, 25-DIHYDROXYCHOLECAL CIFEROL (VITAMIN D) Routine 08/27/2013 12:00 PM CDT PLASMA PARATHYROID HORMONE (PTH), INTACT Routine 08/27/2013 12:00 PM CDT DISCHARGE LABORATORY CUMULATIVE REPORT Routine 08/27/2013 12:00 AM CDT documented in this encounter Results * Discharge Cumulative Summary Addendum (08/31/2013 12:28 AM CDT) 08/31/2013 12:2 8 AM CDT Narrative HISTORICAL RESULTS - 08/31/2013 12:28 AM CDT Patient No: [id number] ? [facility] Patient Name: DALE BETANCUR ?[facility] Age: 47 YRS ?: 1965 ?Sex:F ?[address] )[phone] ?? Adm Dt: 08/27/2013 ?[place], [place] ??[address] Created: 08/31/2013 ??0028 ?? Pt. Type: R ? Discharge Dt: 08/27/2013 ? Pathologists: Lesley Rowley MD Admit Dr. White Dr: ?[facility] ?Collection Date: ?08/27/13 ?Collection Time: ?1200 ? Ref Range: ?? Units: ??[18-78] ?pg/mL ?VIT D 1,25 @ ?72 @ = VIT D 1,25 Performed at ??[place], [place] ?? END OF CHART ? Page: ?? 1 Historical Provider MD LAB MICROBIOLOGY - GENERA L ORDERABLES Final Result Performing Organization Address [facility] [address] [facility] de Phone Number HISTORICAL RESULTS * Serum 1, 25-dihydroxycholecalciferol (vitamin D) (08/27/2013 12:00 PM CDT) Pathologist [facility] 1-25-OH Vit D 72 18 - 78 pg/ml HISTORICAL RESULTS Serum 08/27/2013 12:0 0 PM CDT Historical Provider MD LAB BLOOD ORDERABLES Celia l Result Performing Organization Address [facility] [address]/[facility] de Phone Number HISTORICAL RESULTS * Plasma parathyroid hormone (PTH), intact (08/27/2013 12:00 PM CDT) PTH, intact 62 14 - 72 pg/ml HISTORICAL RESULTS Comment: Intact PTH ?CORRECTED FROM ? 62 ON 08/27/13 AT 1919 BY [id number] FAX TO [phone] 08/27/13 19:19 [id number] Calcium 9.2 8.6 - 9.8 mg/dl HISTORICAL RESULTS Plasma 08/27/2013 12:0 0 PM CDT us Historical Provider MD LAB BLOOD ORDERABLES Celia l Result Performing Organization Address [facility] [address]/[facility] de Phone Number HISTORICAL RESULTS * Serum 25-hydroxycholecalciferol (vitamin D) (08/27/2013 12:00 PM CDT) 25-OH Vit D 37 30 - 80 ng/ml HISTORICAL RESULTS Serum 08/27/2013 12:0 0 PM CDT Historical Provider LAB BLOOD ORDERABLES Celia l Result Performing Organization Address [facility] [address]/[facility] de Phone Number HISTORICAL RESULTS * Discharge Laboratory Cumulative Report (08/27/2013 12:00 AM CDT) 08/27/2013 Narrative HISTORICAL RESULTS - 08/29/2013 12:28 AM CDT Patient No: [id number] ? [facility] Patient Name: DALE BETANCUR ?[facility] Age: 47 YRS ?: 1965 ?Sex:F ?[address] )[phone] ?? Adm Dt: 08/27/2013 ?[place], [place] ??[address] Created: 08/29/2013 ??0028 ?? Pt. Type: R ? Discharge Dt: 08/27/2013 ? Pathologists: Lesley Rowley MD Admit Dr. White Dr: ? [facility] ?Collection Date: ?08/27/13 ?Collection Time: ?1200 ? Ref Range: ?? Units: ??[14-72] ?pg/ml ?Intact PTH ?62 f ?08/27/13 1200 FAX TO [phone] ?08/27/13 19:19 [id number] ?FOOTNOTE ADDED ON ?? 08/27/13 ?? AT 1 [8.6-9.8] ?? MG/DL ?CALCIUM ?9.2 ?SPECIAL CHEMISTRY ?Collection Date: ?08/27/13 ?Collection Time: ?1200 ? Ref Range: ?? Units: ??[30-80] ?ng/mL ?25OH VITAMIN D ?37 Footnotes and Symbols: f = Footnote ?? END OF CHART ? Page: ?? 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
--- OUTSIDE RECORDS SUMMARY | 2024-11-19 04:55 | XMS_ITS | Encounter Summary ---
Author Organization [facility] Facility Care Team Providers Care Bar Assistant Name Role Phone Mendoza Parker MD Primary Care Provider +1- [phone] Encounter Details Date Type Department Care Team (Late st Contact Info) Description 05/27/2014 - 05/27/2014 11:59 PM T Hospital Encounter [facility] Urbano Whitney MD [address] [address] Obesity; Disorder of bone and cartilage; Family history of ischemic heart disease; Thoracic spondylosis without myelopathy Social History Tobacco Use Types Packs/Day Years Used Date Smoking Tobacco: Former Cigarettes Q uit: 11/21/2003 Alcohol Use Standard Drinks/Week Comments No 0 (1 standard drink = 0.6 oz pur e alcohol) Comments Unknown Sex and Gender Information Value Date Recorded Sex Assigned at Not on file 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 Sex Female 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 [facility] ? Department of Laboratories ?[facility] [id number] ?[facility] ?CAM 5th Fl [place] C Patient Name: ? TRAYDALE RODRIGUES Med Rec Number: ?? [id number] Date of : ?1965 Gender/Age: ? Female 48 years Doctor: ? Urbano Delacruz M.D. Report Date/Time: 05/28/2014 17:12 ?* Abnormal ??C Critical ??f Footnote ??^ Corrected ??L Low ??H High ?i Interp Data ??@ Reference Lab ?Chart Type: Cumulative ?HEMATOLOGY ?05/27/2014 ?16:11:26 Test ?Units ??Reference ESR ?? 18 ?mm/H ?? 0-25 ?IMMUNOLOGY ?05/27/2014 ?16:10:00 Test ?Units ??Reference IgA ?? 111.0 ? mg/dL ??70.0-370.0 ? CANCELLED Collect Date ??Collect Time ??Order Name ?? Cancel Reason 05/27/2014 ?16:10:00 ?Osteocalcin ??[facility] Not on Ice us Historical Provider MD LAB BLOOD ORDERABLES Celia l Result HISTORICAL RESULTS * XR Spine Lumbar 2 or 3 Views (05/27/2014 4:41 PM CDT) Anatomical Region Laterality Modality Spine N/A Radiographic Krupa ging 05/27/2014 4:41 PM CDT Narrative 05/27/2014 5:12 PM CDT ROXIE RIVERA M.D. FINAL REPORT ACC# ??Date Time ??Exam [id number] May 27, 2014 16:41:00 [id number] Spine Lumbar 2 or 3 views [id number] May 27, 2014 16:41:00 [id number] Spine Thoracic 3 views EXAMINATION: ?? 1. Thoracic spine 3 views. 2. Lumbar spine 2 or 3 views. HISTORY: ??Osteopenia. FINDINGS: ?? AP, lateral, and swimmer's views of the thoracic spine AP and lateral views of the lumbar spine were obtained. Images were compared to CT scan of the abdomen and pelvis February 01, 2012. Thoracic spine: The vertebral body heights and alignment are maintained. There is mild degenerative change in the mid thoracic spine characterized by mild disc space narrowing marginal osteophyte formation. There are calcified right hilar lymph nodes. Surgical clips in the right upper quadrant are consistent with prior cholecystectomy. Lumbar spine: AP and lateral views of the lumbar spine were obtained. There are 5 quf-yny-iwcqnic lumbar-type vertebral bodies. There is a mild levocurvature of the lumbar spine centered at L2-L3 intervertebral disc space. There is slight anterior height loss of the L4 vertebral body with a sclerotic line paralleling the superior L4 endplate. The intervertebral disc spaces are maintained. IMPRESSION: ?? Thoracic spine: 1. Mild disc degenerative change in the midthoracic spine. Lumbar spine: 1. Minimal anterior height loss of the L4 vertebral body consistent with an age-indeterminate compression fracture, new in comparison to 2010. Correlation with ??focal pain is suggested. These findings were discussed with Dr. Delacruz at 5:11 p.m. on April 27, 2014. Requested By: URBANO DELACRUZ ??MMoe Dictated By: ?? ROXIE RIVERA M.D. ??on May ??2013 ??5:04P This document has been electronically signed by: ROXIE RIVERA M.D. on May ??2013 ??5:04P Addendum Dictated by: ROXIE RIVERA M.D. on May ??7 2013 ??5:12P This Addendum has been electronically signed by: ROXIE RIVERA M.D. on May ??2013 ??5:12P Procedure Note Provider, MD Kip - 03/22/2017 ROXIE RIVERA M.D. FINAL REPORT ACC# Date Time Exam [id number] May 27, 2014 16:41:00 [id number] Spine Lumbar 2 or 3 views [id number] May 27, 2014 16:41:00 [id number] Spine Thoracic 3 views EXAMINATION: 1. Thoracic spine 3 views. 2. Lumbar spine 2 or 3 views. HISTORY: Osteopenia. FINDINGS: AP, lateral, and swimmer's views of the thoracic spine AP and lateral views of the lumbar spine were obtained. Images were compared to CT scan of the abdomen and pelvis February 01, 2012. Thoracic spine: The vertebral body heights and alignment are maintained. There is mild degenerative change in the mid thoracic spine characterized by mild disc space narrowing marginal osteophyte formation. There are calcified right hilar lymph nodes. Surgical clips in the right upper quadrant are consistent with prior cholecystectomy. Lumbar spine: AP and lateral views of the lumbar spine were obtained. There are 5 bay-dfa-fynfqif lumbar-type vertebral bodies. There is a mild levocurvature of the lumbar spine centered at L2-L3 intervertebral disc space. There is slight anterior height loss of the L4 vertebral body with a sclerotic line paralleling the superior L4 endplate. The intervertebral disc spaces are maintained. IMPRESSION: Thoracic spine: 1. Mild disc degenerative change in the midthoracic spine. Lumbar spine: 1. Minimal anterior height loss of the L4 vertebral body consistent with an age-indeterminate compression fracture, new in comparison to 2010. Correlation with focal pain is suggested. These findings were discussed with Dr. Delacruz at 5:11 p.m. on April. Requested By: URBANO DELACRUZ M.D. Dictated By: ROXIE RIVERA M.D. on May 27 2014 5:04P This document has been electronically signed by: ROXIE RIVERA M.D. on May 27 2014 5:04P Addendum Dictated by: ROXIE RIVERA M.D. on May 27 2014 5:12P This Addendum has been electronically signed by: ROXIE RIVERA M.D. on May 27 2014 5:12P us Historical Provider MD LAWSON XR PROCEDURES Final R esult * XR Spine Thoracic 3 Vw (05/27/2014 4:41 PM CDT) Anatomical Region Laterality Modality Spine N/A Radiographic Krupa ging 05/27/2014 4:41 PM CDT Narrative 05/27/2014 5:12 PM CDT ROXIE RIVERA M.D. FINAL REPORT ACC# ??Date Time ??Exam [id number] May 27, 2014 16:41:00 [id number] Spine Lumbar 2 or 3 views [id number] May 27, 2014 16:41:00 [id number] Spine Thoracic 3 views EXAMINATION: ?? 1. Thoracic spine 3 views. 2. Lumbar spine 2 or 3 views. HISTORY: ??Osteopenia. FINDINGS: ?? AP, lateral, and swimmer's views of the thoracic spine AP and lateral views of the lumbar spine were obtained. Images were compared to CT scan of the abdomen and pelvis February 01, 2012. Thoracic spine: The vertebral body heights and alignment are maintained. There is mild degenerative change in the mid thoracic spine characterized by mild disc space narrowing marginal osteophyte formation. There are calcified right hilar lymph nodes. Surgical clips in the right upper quadrant are consistent with prior cholecystectomy. Lumbar spine: AP and lateral views of the lumbar spine were obtained. There are 5 xgh-ekh-kqjefua lumbar-type vertebral bodies. There is a mild levocurvature of the lumbar spine centered at L2-L3 intervertebral disc space. There is slight anterior height loss of the L4 vertebral body with a sclerotic line paralleling the superior L4 endplate. The intervertebral disc spaces are maintained. IMPRESSION: ?? Thoracic spine: 1. Mild disc degenerative change in the midthoracic spine. Lumbar spine: 1. Minimal anterior height loss of the L4 vertebral body consistent with an age-indeterminate compression fracture, new in comparison to 2010. Correlation with ??focal pain is suggested. These findings were discussed with Dr. Delacruz at 5:11 p.m. on April 27, 2014. Requested By: URBANO DELACRUZ ??Dahiana Dictated By: ?? ROXIE RIVERA M.D. ??on May ??2013 ??5:04P This document has been electronically signed by: ROXIE RIVERA M.D. on May ??2013 ??5:04P Addendum Dictated by: ROXIE RIVERA M.D. on May ??2013 ??5:12P This Addendum has been electronically signed by: ROXIE RIVERA M.D. on May ??2013 ??5:12P Procedure Note Provider, MD Kip - 05/02/2017 ROXIE RIVERA M.D. FINAL REPORT ACC# Date Time Exam [id number] May 27, 2014 16:41:00 [id number] Spine Lumbar 2 or 3 views [id number] May 27, 2014 16:41:00 [id number] Spine Thoracic 3 views EXAMINATION: 1. Thoracic spine 3 views. 2. Lumbar spine 2 or 3 views. HISTORY: Osteopenia. FINDINGS: AP, lateral, and swimmer's views of the thoracic spine AP and lateral views of the lumbar spine were obtained. Images were compared to CT scan of the abdomen and pelvis February 01, 2012. Thoracic spine: The vertebral body heights and alignment are maintained. There is mild degenerative change in the mid thoracic spine characterized by mild disc space narrowing marginal osteophyte formation. There are calcified right hilar lymph nodes. Surgical clips in the right upper quadrant are consistent with prior cholecystectomy. Lumbar spine: AP and lateral views of the lumbar spine were obtained. There are 5 iej-zrh-hkojgzm lumbar-type vertebral bodies. There is a mild levocurvature of the lumbar spine centered at L2-L3 intervertebral disc space. There is slight anterior height loss of the L4 vertebral body with a sclerotic line paralleling the superior L4 endplate. The intervertebral disc spaces are maintained. IMPRESSION: Thoracic spine: 1. Mild disc degenerative change in the midthoracic spine. Lumbar spine: 1. Minimal anterior height loss of the L4 vertebral body consistent with an age-indeterminate compression fracture, new in comparison to 2010. Correlation with focal pain is suggested. These findings were discussed with Dr. Delacruz at 5:11 p.m. on April. Requested By: URBANO DELACRUZ M.D. Dictated By: ROXIE RIVERA M.D. on May 27 2014 5:04P This document has been electronically signed by: ROXIE RIVERA M.D. on May 27 2014 5:04P Addendum Dictated by: ROXIE RIVERA M.D. on May 27 2014 5:12P This Addendum has been electronically signed by: ROXIE RIVERA M.D. on May 27 2014 5:12P us Historical Provider MD LAWSON XR PROCEDURES Final R esult * Blood erythrocyte sedimentation rate (ESR) (05/27/2014 4:11 PM CDT) Erythrocyte sedimentation rate 18.0 0.0 - 25.0 mm/hr HISTORICAL RESULTS Blood specimen (specimen) 05/27/2014 4:11 PM CDT Urbano Delacruz MD LAB BLOOD ORDERABLES Final Resu lt Performing Organization Address [facility] de Phone Number HISTORICAL RESULTS * Serum IgA, quantitative (05/27/2014 4:10 PM CDT) IgA 111.0 70.0 - 370.0 mg/dl HISTORICAL RESULTS Serum 05/27/2014 4:10 PM CDT us Urbano Delacruz MD LAB BLOOD ORDERABLES Final Resu lt Performing Organization Address [facility] de Phone Number HISTORICAL RESULTS documented in this encounter Visit Diagnoses Diagnosis Obesity Obesity, unspecified 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
--- OUTSIDE RECORDS SUMMARY | 2024-11-19 04:55 | XMS_ITS | Encounter Summary ---
Author Organization [facility] Healthcare Address [address] [place] [address] Care Team Providers Care Senior Engineering Associate Name Role Phone Mendoza Parker MD Primary Care Provider +1- [phone] Encounter Details Date Type Department Care Team (Late st Contact Info) Description 01/16/2013 2:32 PM PUBLIC RELATIONS ASSOCIATE - 01/16/2013 11:59 PM PUBLIC RELATIONS ASSOCIATE Hospital Encounter [facility] Michelle Vergara DO [address] [place] [address] Vitamin D deficiency Social History Tobacco Use Types Packs/Day Years Used Date Smoking Tobacco: Never Assessed Comments Unknown Sex and Gender Information Value Date Recorded Sex Assigned at Not on file Legal Sex Female 12:46 AM PUBLIC RELATIONS ASSOCIATE Gender Identity Not on file Sexual [...] Comments SERUM 25-HYDROXYCHOLECALCI FEROL (VITAMIN D) Routine 01/16/2013 2:43 PM PUBLIC RELATIONS ASSOCIATE DISCHARGE LABORATORY CUMULATIVE REPORT Routine 01/16/2013 12:00 AM PUBLIC RELATIONS ASSOCIATE documented in this encounter Results * (ABNORMAL) Serum 25-hydroxycholecalciferol (vitamin D) (01/16/2013 2:43 PM PUBLIC RELATIONS ASSOCIATE) 25-OH Vit D 25(L) 30 - 80 ng/ml HISTORICAL RESULTS Serum 01/16/2013 2:43 PM PUBLIC RELATIONS ASSOCIATE us Michelle Vergara DO LAB BLOOD ORDERABLES Final Resu lt HISTORICAL RESULTS * Discharge Laboratory Cumulative Report (01/16/2013 12:00 AM PUBLIC RELATIONS ASSOCIATE) 01/16/2013 Narrative HISTORICAL RESULTS - 01/18/2013 12:24 AM PUBLIC RELATIONS ASSOCIATE Patient No: [id number] ? [facility] Patient Name: DALE BETANCUR ?[facility] Age: 47 YRS ?: 1965 ?Sex:F ?[address] )[phone] ?? Adm Dt: 01/16/2013 ?[place], [place] ??[address] Created: 01/18/2013 ??0024 ?? Pt. Type: R ? Discharge Dt: 01/16/2013 ? Pathologists: Lesley Rowley MD Admit DrHumble Attend Dr: MICHELLE VERGARA DO ?SPECIAL CHEMISTRY ?Collection Date: ?01/16/13 ?Collection Time: ?1443 ? Ref Range: ?? Units: ??[30-80] ?ng/mL ?25OH VITAMIN D ?25 L Footnotes and Symbols: L = Low ?? END OF CHART ? Page: ?? 1 us Historical Provider MD LAB BLOOD ORDERABLES Celia l Result HISTORICAL RESULTS documented in this encounter Visit Diagnoses Diagnosis Vitamin D deficiency documented in this encounter Care Teams Senior Engineering Associate Relationship Specialty Start Date End Date Mendoza Parker MD PCP - General 08/20/08 03/04/13 documented as of this encounter
--- OUTSIDE RECORDS SUMMARY | 2024-11-19 04:55 | XMS_ITS | Encounter Summary ---
Author Organization [facility] Healthcare Address [address] [place] [address] Care Team Providers Care Faculty Research Physician Name Role Phone Mendoza Parker MD Primary Care Provider +1- [phone] Encounter Details Date Type Department Care Team (Late st Contact Info) Description 01/15/2014 1:00 PM PROP AND SCENERY MAKER - 01/15/2014 11:59 PM PROP AND SCENERY MAKER Hospital Encounter [facility] MD [address] [place] [id number] Other specified disorders of liver Social History Tobacco Use Types Packs/Day Years Used Date Smoking Tobacco: Former Cigarettes Q uit: 11/21/2003 Alcohol Use Standard Drinks/Week Comments No 0 (1 standard drink = 0.6 oz pur e alcohol) Comments Unknown Sex and Gender Information Value Date Recorded Sex Assigned at Not on file Legal Sex Female 12:46 AM PROP AND SCENERY 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 [id number] ??Acc#: ??[id number] DATE OF EXAM: ??Jan 15 2014 CLINICAL HISTORY: Right upper quadrant abdominal pain for 2-3 months. ??No nausea and vomiting. RESULT: The patient received 5 mCi Tc 99m Choletec IV. ??Anterior images over the right upper quadrant were obtained at 1 minute per frame for 60 minutes. Prompt hepatocellular uptake occurred. ??Activity was present in common bile duct by 7 minutes and in gallbladder also by 7-8 minutes; in small bowel at 27 minutes. The patient then ingested 8 ounces of Ensure Complete. ??Images in the SUDANESE projection were then acquired at 1 minute per frame for 60 minutes. Gallbladder time vs activity curve was generated. ??Gallbladder ejection fraction was calculated to be only 22% (normal 35% or more). IMPRESSION: 1. DECREASED GALLBLADDER EJECTION FRACTION OF ONLY 22%. 2. OTHERWISE NORMAL HEPATOBILIARY SCAN. Interpreting Physician: ??KIRSTY ALCAZAR M.D. ??Read on: ??Jan 15 2014 4:49P Transcribed by: ??dereck ??On: Jan 15 2014 ??7:48P Approved Electronically by: ??OTTONIEL Talbot, KIRSTY ??on: ??Jan 16 2014 7:04A Ordering DR: DR CORIE BARNES Attending DR: DR CORIE BARNES Procedure Note Provider, Kip, - 03/22/2017 Dr[facility] [place] [id number] Acc#: [id number] DATE OF EXAM: Jan 15 2014 CLINICAL HISTORY: Right upper quadrant abdominal pain for 2-3 months. No nausea andvomiting. RESULT: The patient received 5 mCi Tc 99m Choletec IV. Anterior images over theright upper quadrant were obtained at 1 minute per frame for 60 minutes.Prompt hepatocellular uptake occurred. Activity was present in commonbile duct by 7 minutes and in gallbladder also by 7-8 minutes; in smallbowel at 27 minutes. The patient then ingested 8 ounces of EnsureComplete. Images in the SUDANESE projection were then acquired at 1 minute perframe for 60 minutes. Gallbladder time vs activity curve was generated.Gallbladder ejection fraction was calculated to be only 22% (normal 35% ormore). IMPRESSION: 1. DECREASED GALLBLADDER EJECTION FRACTION OF ONLY 22%. 2. OTHERWISE NORMAL HEPATOBILIARY SCAN. Interpreting Physician: KIRSTY ALCAZAR M.D. Read on: Jan 15 20144:49P Transcribed by: dereck On: Jan 15 2014 7:48P Approved Electronically by: KIRSTY ALCAZAR M.D. on: Jan 16 20147:04A Ordering DR: DR CORIE BARNES Attending DR: DR CORIE BARNES us Historical Provider MD LULU REYES PROCEDURES Final R esult * US Abdomen Limited (01/15/2014 1:42 PM PROP AND SCENERY MAKER) Anatomical Region Laterality Modality Abdomen N/A Ultrasound 01/15/2014 1:42 PM PROP AND SCENERY MAKER Narrative 01/16/2014 12:42 PM PROP AND SCENERY MAKER DR. SYDNIE SO. MANNY TAMAYO [facility] ??Acc#: ??[id number] DATE OF EXAM: ??Jan 15 2014 CLINICAL HISTORY: Abdominal pain. RESULT: Marsh scale realtime images were obtained. Partially visualized head and body of pancreas have normal thickness and echotexture. ??Remainder of the pancreas is obscured by bowel gas. Abdominal aorta and inferior vena cava are normal in caliber. ??A 2.2cm cyst is present at inferior margin of right lobe of liver. ??Liver otherwise appears normal in size and echotexture. ??Intrahepatic ducts are not dilated. Common bile duct measures 4.5mm diameter. ??Gallbladder is normally distended without wall thickening, pericholecystic fluid, or calculi or other intraluminal echoes. ??The right kidney measures 10.3cm length and 5.1x4.1cm width. ??No pelvocalyceal distention, mass or cyst is seen in the right kidney. ??No free fluid is seen in the right upper quadrant. IMPRESSION: 1. LIMITED VISUALIZATION OF PANCREAS DUE TO OVERLYING BOWEL GAS. 2. 2.2CM CYST AT INFERIOR MARGIN RIGHT LOBE OF LIVER. 3. NO OTHER RIGHT UPPER QUADRANT ABNORMALITY SEEN. Interpreting Physician: ??KIRSTY ALCAZAR M.D. ??Read on: ??Jan 15 2014 6:34P Transcribed by: ??jignesh ?? On: Jan 16 2014 ??9:41A Approved Electronically by: ??KIRSTY ALCAZAR M.D. ??on: ??Jan 16 2014 12:42P Ordering DR: DR CORIE BARNES Attending DRJane BARNES Procedure Note Provider, MD Kip - 03/22/2017 DR. SYDNIE OS. MANNY TAMAYO [facility] Acc#: [id number] DATE OF EXAM: Jan 15 2014 CLINICAL HISTORY: Abdominal pain. RESULT: Marsh scale realtime images were obtained. Partially visualized head andbody of pancreas have normal thickness and echotexture. Remainder of thepancreas is obscured by bowel gas. Abdominal aorta and inferior vena cavaare normal in caliber. A 2.2cm cyst is present at inferior margin ofright lobe of liver. Liver otherwise appears normal in size andechotexture. Intrahepatic ducts are not dilated. Common bile ductmeasures 4.5mm diameter. Gallbladder is normally distended without wallthickening, pericholecystic fluid, or calculi or other intraluminalechoes. The right kidney measures 10.3cm length and 5.1x4.1cm width. Nopelvocalyceal distention, mass or cyst is seen in the right kidney. Nofree fluid is seen in the right upper quadrant. IMPRESSION: 1. LIMITED VISUALIZATION OF PANCREAS DUE TO OVERLYING BOWEL GAS. 2. 2.2CM CYST AT INFERIOR MARGIN RIGHT LOBE OF LIVER. 3. NO OTHER RIGHT UPPER QUADRANT ABNORMALITY SEEN. Interpreting Physician: KIRSTY ALCAZAR M.D. Read on: Jan 15 20146:34P Transcribed by: [email or web address] On: Jan 16 2014 9:41A Approved Electronically by: KIRSTY ALCAZAR M.D. on: Jan 16 201412:42P Ordering DR: DR CORIE BARNES Attending DR: DR CORIE BARNES us Historical Provider MD LAWSON US PROCEDURES Final R esult documented in this encounter Visit Diagnoses Diagnosis Other specified disorders of liver documented in this encounter Care Teams Faculty Research Physician Relationship Specialty Start Date End Date Mendoza Parker MD PCP - General 03/05/13 06/02/15 documented as of this encounter
--- OUTSIDE RECORDS SUMMARY | 2024-11-19 04:55 | XMS_ITS | Encounter Summary ---
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 - 10/21/2016 6:03 PM 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 Hospital Encounter [facility] Awa Garcia MD [address] [place] [id number] Other constipation; Fibromyalgia; Other chronic pain; long-term current use of opiate analgesic; Other shelter (current) drug therapy Social History Tobacco Use Types Packs/Day Years Used Date Smoking Tobacco: Former Cigarettes Q uit: 11/21/2003 Alcohol Use Standard Drinks/Week Comments No 0 (1 standard drink = 0.6 oz pur e alcohol) Comments Unknown Sex and Gender Information Value Date Recorded Sex Assigned at Not on file Legal Sex Female 12:46 AM 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 Gender Identity Not on file Sexual [...] Comments ABDOMINAL, CHEST RADIOGRAPHY, SUPINE, ERECT Routine 10/21/2016 4:35 PM 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 ??Takes opioids. RESULT: An obstruction series with PA view of the chest, upright view of the abdomen, and supine view of the abdomen was obtained. ??Correlation with CT of the abdomen and pelvis from 10/18/16 is made. ??Dilated colon is again noted. ??A few scattered air fluid levels are also seen in the colon. ??Similar findings were evident on the prior CT scan. ??Findings are most consistent with functional constipation. ??No free intraperitoneal air is seen. ??Surgical clips are present in the right upper quadrant consistent with prior cholecystectomy. IMPRESSION: 1. EVIDENCE OF FUNCTIONAL CONSTIPATION AGAIN SEEN. Results were discussed with Charleen Cortez in the ER at 1709 on 10/21/16. Interpreting Physician: ??VONDA BENDER M.D. ??Read on: ??Dec ??1 2015 5:09P Transcribed by: ??[facility] ??On: Dec ??1 2016 ??6:40P Approved Electronically by: ??VONDA BENDER M.D. ??on: ??Dec ??1 2015 7:47P Attending: ??AWA BLAIR Requesting: ??CHARLEEN CORTEZ Requesting Fax: ??-- Attending Fax: ??-- Attending ID: ??[id number] Requesting ID: ??[id number] Report To 1 ID: ??[id number] Report To 1 Name: ??AWA BLAIR Report To 1 FAX: ??-- NextGen Order #: Procedure Note Provider, MD Kip - 03/28/2017 XR Abd Obst Series W Chest [id number] Acc#: [id number] DATE OF EXAM: Oct 21 2016 CLINICAL HISTORY: Constipation. Takes opioids. RESULT: An obstruction series with PA view of the chest, upright view of theabdomen, and supine view of the abdomen was obtained. Correlation with CTof the abdomen and pelvis from 10/18/16 is made. Dilated colon is againnoted. A few scattered air fluid levels are also seen in the colon.Similar findings were evident on the prior CT scan. Findings are mostconsistent with functional constipation. No free intraperitoneal air isseen. Surgical clips are present in the right upper quadrant consistentwith prior cholecystectomy. IMPRESSION: 1. EVIDENCE OF FUNCTIONAL CONSTIPATION AGAIN SEEN. Results were discussedwith Charleen Cortez in the ER at 1709 on 10/21/16. Interpreting Physician: VONDA BENDER M.D. Read on: Oct 21 20165:09P Transcribed by: dereck On: Oct 21 2016 6:40P Approved Electronically by: VONDA BENDER M.D. 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
--- OUTSIDE RECORDS SUMMARY | 2024-11-19 04:55 | XMS_ITS | Encounter Summary ---
Author Organization [facility] Healthcare Address [address] [place] [address] Care Team Providers Care Filler Mixer Name Role Phone Mendoza Pakrer MD Primary Care Provider [phone]- [phone] Encounter Details Date Type Department Care Team (Late st Contact Info) Description 06/09/2014 11:45 AM CDT - 06/09/2014 11:59 PM CDT Hospital Encounter [facility] CLINCON[facility] Tay MD [address] [id number] Disorder of bone and cartilage Social History Tobacco Use Types Packs/Day Years Used Date Smoking Tobacco: Former Cigarettes Q uit: 11/21/2003 Alcohol Use Standard Drinks/Week Comments No 0 (1 standard drink = 0.6 oz pur e alcohol) Comments Unknown Sex and Gender Information Value Date Recorded Sex Assigned at Not on file 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
--- OUTSIDE RECORDS SUMMARY | 2024-11-19 04:55 | XMS_ITS | Encounter Summary ---
Author Organization [facility] Address [address] [place] [address] Care Team Providers Care Msws Name Role Phone Mendoza Parker MD Primary Care Provider [phone]- [phone] Mendoza Parker MD Primary Care Provider [phone]- [phone] Mendoza Parker MD Primary Care Provider [phone]- [phone] Mendoza Parker MD Primary Care Provider [phone]- [phone] Mendoza Parker MD Primary Care Provider [phone]- [phone] Margarito العراقي MD Primary Care Provider [phone] Raymond Vela MD Unavailable [phone] Encounter Details Date Type Department Care Team (Late st Contact Info) Description 05/20/2015 Orders Only [facility] [facility] Information Management [address] [place] [address] Scanning, Provider Social History Tobacco Use Types Packs/Day Years Used Date Smoking Tobacco: Former Cigarettes Q uit: 11/21/2003 Alcohol Use Standard Drinks/Week Comments No 0 (1 standard drink = 0.6 oz pur e alcohol) Comments Unknown Sex and Gender Information Value Date Recorded Sex Assigned at Not on file 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 Gender Identity Not on file Sexual Orientation Not on file documented as of this encounter Plan of Treatment Not on file documented as of this encounter Procedures Procedure Name Priority Date/Time Associated Diagnosis Comments SCAN - LABS 05/20/2015 documented in this encounter Results * SCAN - LABS (05/20/2015) us Provider Scanning Final Result documented in this encounter Visit Diagnoses Not on filedocumented in this encounter Additional Health Concerns Infection Onset Date Last Indicated Resolved Time COVID: Suspected 02/20/2024 02/20/2024 02/20/2024 2:54 PM CDT documented as of this encounter Care Teams Msws Relationship Specialty Start Date End Date Mendoza [...] [address] [place] [address] Referring Physician Obstetrics and Gynecology 08/17/21 documented as of this encounter
--- OUTSIDE RECORDS SUMMARY | 2024-11-19 04:55 | XMS_ITS | Encounter Summary ---
Author Organization [facility] Care Team Providers Care Hydrogeologist Name Role Phone Mendoza Parker MD Primary Care Provider [phone]- [phone] Encounter Details Date Type Department Care Team (Latest Contact Info) Description 04/01/2014 10:01 AM CDT Hospital Encounter [facility] CLINCONV Pain in joint, shoulder region Social History Tobacco Use Types Packs/Day Years Used Date Smoking Tobacco: Former Cigarettes Q uit: 11/21/2003 Alcohol Use Standard Drinks/Week Comments No 0 (1 standard drink = 0.6 oz pur e alcohol) Comments Unknown Sex and Gender Information Value Date Recorded Sex Assigned at Not on file Legal Sex 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 F FINAL REPORT ACC# ??Date Time ??Exam [id number] April 01, 2014 10:52:00 [id number] Extremity Sono Comp Lt EXAMINATION: ?Left shoulder sonogram complete HISTORY: ??Shoulder pain FINDINGS: ?? A complete left shoulder sonogram is performed. No prior examinations are available for comparison. The biceps tendon is normal. There is no subacromial subdeltoid bursitis. The rotator cuff tendons are normal without rotator cuff tear. The muscle bulk and echogenicity is symmetric and normal bilaterally. IMPRESSION: ?? Normal left shoulder sonogram. Requested By: DANNY VERGARA ?? Dictated By: ?? Dahiana MOSS ??on Apr 01 2014 11:26A This document has been electronically signed by: Dahiana MOSS on Apr 01 2014 11:26A Procedure Note Provider, MD Kip - 03/22/2017 Dahiana MOSS FINAL REPORT ACC# Date Time Exam [id number] April 01, 2014 10:52:00 [id number] Extremity Sono Comp Lt EXAMINATION: Left shoulder sonogram complete HISTORY: Shoulder pain FINDINGS: A complete left shoulder sonogram is performed. No prior examinations are available for comparison. The biceps tendon is normal. There is no subacromial subdeltoidbursitis. The rotator cuff tendons are normal without rotator cuff tear. The muscle bulk and echogenicity is symmetric and normal bilaterally. IMPRESSION: Normal left shoulder sonogram. Requested By: DANNY VERGARA Dictated By: Dahiana MOSS on Apr 01 2014 11:26A This document has been electronically signed by: Dahiana MOSS on Apr 01 2014 11:26A us Historical Provider [facility] US PROCEDURES Final R esult documented in this encounter Visit Diagnoses Diagnosis Pain in joint, shoulder region documented in this encounter Care Teams Hydrogeologist Relationship Specialty Start Date End Date Mendoza Parker MD PCP - General 03/05/13 06/02/15 documented as of this encounter
--- OUTSIDE RECORDS SUMMARY | 2024-11-19 04:55 | XMS_ITS | Encounter Summary ---
Author Organization [facility] Healthcare Address [address] [place] [address] Care Team Providers Care Lay Out Maker Name Role Phone Mendoza Parker MD Primary Care Provider [phone]- [phone] Encounter Details Date Type Department Care Team (Late st Contact Info) Description 11/27/2015 3:29 PM INTERVENTIONIST - 11/27/2015 11:59 PM INTERVENTIONIST Hospital Encounter [facility] Shannan Cantu MD [address] [place] [address] Melanocytic nevi of trunk Social History Tobacco Use Types Packs/Day Years Used Date Smoking Tobacco: Former Cigarettes Q uit: 11/21/2003 Alcohol Use Standard Drinks/Week Comments No 0 (1 standard drink = 0.6 oz pur e alcohol) Comments Unknown Sex and Gender Information Value Date Recorded Sex Assigned at Not on file Legal Sex Female 12:46 AM INTERVENTIONIST Gender Identity Not on file Sexual Orientation [...] Priority Date/Time Associated Diagnosis Comments SURGICAL PATHOLOGY 11/27/2015 documented in this encounter Results * Surgical pathology (11/27/2015) Narrative 11/27/2015 Ordered by an unspecified provider. Historical Provider LAB PATHOLOGY ORDERABLES Final Result documented in this encounter Visit Diagnoses Diagnosis Melanocytic nevi of trunk documented in this encounter Care Teams Lay Out Maker Relationship Specialty Start Date End Date Mendoza Parker MD PCP - General 11/18/15 02/17/17 documented as of this encounter
--- OUTSIDE RECORDS SUMMARY | 2024-11-19 04:55 | XMS_ITS | Encounter Summary ---
Author Organization [facility] Address [address] [place] [id number] Care Team Providers Care Windows Deployment Technician Name Role Phone Mendoza Parker MD Primary Care Provider [phone]- [phone] Encounter Details Date Type Department Care Team (Late st Contact Info) Description 10/01/2014 2:52 PM LEAD FRONT DESK AGENT - 10/01/2014 9:19 PM LEAD FRONT DESK AGENT Hospital Encounter [facility] Kat Magana MD [address] [place] [id number] Migraine; Viral infection in conditions classified elsewhere and of unspecified site; Myalgia and myositis; Other malaise and fatigue; Osteoporosis Social History Tobacco Use Types Packs/Day Years Used Date Smoking Tobacco: Former Cigarettes Q uit: 11/21/2003 Alcohol Use Standard Drinks/Week Comments No 0 (1 standard drink = 0.6 oz pur e alcohol) Comments Unknown Sex and Gender Information Value Date Recorded Sex Assigned at Not on file Legal Sex Female 12:46 AM LEAD FRONT DESK AGENT Gender Identity Not on file Sexual Orientation [...] Name Priority Date/Time Associated Diagnosis Comments CT HEAD WO CONTRAST Routine 10/01/2014 6 :45 PM LEAD FRONT DESK AGENT SERUM MAGNESIUM Routine 10/01/2014 4:45 PM LEAD FRONT DESK AGENT SERUM COMPREHENSIVE METABOLIC PANEL Routine 10/01/2014 4:45 PM LEAD FRONT DESK AGENT BLOOD WBC CELL MORPHOLOGIC EXAM, AUTO Routine 10/01/2014 4:45 PM LEAD FRONT DESK AGENT BLOOD B-TYPE NATRIURETIC PEPTIDE (BNP) Routine 10/01/2014 4:45 PM LEAD FRONT DESK AGENT BLOOD CELL COUNT (CBC) Routine 4 4:45 PM LEAD FRONT DESK AGENT XR CHEST PORTABLE Routine 10/01/2014 4:4 2 PM LEAD FRONT DESK AGENT PLASMA PROTHROMBIN TIME (PT) Routine 10/01/2014 4:30 PM LEAD FRONT DESK AGENT PLASMA PARTIAL THROMBOPLASTIN TIME (PTT) Routine 10/01/2014 4:30 PM LEAD FRONT DESK AGENT SERUM TROPONIN I Routine 10/01/2014 10:4 5 AM LEAD FRONT DESK AGENT BLOOD D-DIMER Routine 10/01/2014 10:30 AM LEAD FRONT DESK AGENT ELECTROCARDIOGRAPHY (ECG) 10/01/2014 DISCHARGE LABORATORY CUMULATIVE REPORT Routine 10/01/2014 12:00 AM LEAD FRONT DESK AGENT documented in this encounter Results * CT Head WO Contrast (10/01/2014 6:45 PM LEAD FRONT DESK AGENT) Anatomical Region Laterality Modality Head and Neck N/A Computed Tomogra phy 10/01/2014 6:45 PM LEAD FRONT DESK AGENT Narrative 10/01/2014 9:59 PM [place] ?[id number] ??Acc#: ??[id number] DATE OF EXAM: ??Oct 01 2014 CLINICAL HISTORY: Light headedness which onset this morning. ??Also notes dizziness, palpitations and generalized weakness. RESULT: Serial axial images of the brain were obtained without contrast correlated to the study dated 02/02/13. There is no acute intracranial hemorrhage, midline shift, mass effect or focal brain parenchymal abnormality. ??CSF spaces appear normal for age. There is no skull fracture. ??The partially visualized paranasal sinuses are clear. ??The mastoid air cells appear clear. ??Several of the septations within the mastoids are absent but similar to previous study. IMPRESSION: 1. NO FOCAL BRAIN PARENCHYMAL ABNORMALITIES IDENTIFIED. COMMENT: ??Results discussed with Dr. Magana 6:52pm on 10/01/14. Interpreting Physician: ??LEN BALDWIN M.D. ??Read on: ??Oct 01 2014 ??7:10P Transcribed by: ??dereck ??On: Oct 01 2014 ??8:15P Approved Electronically by: ??LEN BALDWIN M.D. ??on: ??Oct 01 2014 ??9:59P Ordering DR: Attending DR: KAT MAGANA Procedure Note Provider, Kip, - 03/22/[place] [id number] Acc#: [id number] DATE OF EXAM: Oct 01 2014 CLINICAL HISTORY: Light headedness which onset this morning. Also notes dizziness,palpitations and generalized weakness. RESULT: Serial axial images of the brain were obtained without contrastcorrelated to the study dated 02/02/13. There is no acute intracranialhemorrhage, midline shift, mass effect or focal brain parenchymalabnormality. CSF spaces appear normal for age. There is no skullfracture. The partially visualized paranasal sinuses are clear. Themastoid air cells appear clear. Several of the septations within themastoids are absent but similar to previous study. IMPRESSION: 1. NO FOCAL BRAIN PARENCHYMAL ABNORMALITIES IDENTIFIED. COMMENT: Results discussed with Dr. Magana 6:52pm on 10/01/14. Interpreting Physician: LEN BALDWIN M.D. Read on: Oct 01 2014 7:10P Transcribed by: dereck On: Oct 01 2014 8:15P Approved Electronically by: LEN BALDWIN M.D. on: Oct 01 2014 9:59P Ordering DR: Attending DR: KAT MAGANA us Historical Provider IM CT PROCEDURES Final R esult * Blood B-type natriuretic peptide (BNP) (10/01/2014 4:45 PM LEAD FRONT DESK AGENT) BNP <5 5 - 100 pg/ml HISTORICAL RESULTS Blood specimen (specimen) 10/01/2014 4:45 PM LEAD FRONT DESK AGENT Epi Luna MD LAB BLOOD ORDERABLES Celia desai Result HISTORICAL RESULTS * Serum magnesium (10/01/2014 4:45 PM LEAD FRONT DESK AGENT) Magnesium 2.1 1.5 - 2.2 mg/dl HISTORICAL RESULTS Serum 10/01/2014 4:45 PM LEAD FRONT DESK AGENT Epi Luna MD LAB BLOOD ORDERABLES Celia l Result Performing Organization Address [facility] de Phone Number HISTORICAL RESULTS * Blood cell count (CBC) (10/01/2014 4:45 PM LEAD FRONT DESK AGENT) WBC 6.8 4.0 - 10.5 K/cumm HISTORICAL RESULTS RBC 4.58 4.20 - 5.40 M/cumm HISTORICAL RESULTS Hgb 13.4 12.0 - 16.0 g/dl HISTORICAL RESULTS Hct 40.3 37.0 - 47.0 % HISTORICAL RESULTS MCV 88.0 77.0 - 97.0 fl HISTORICAL RESULTS MCH 29.3 23.0 - 34.0 pg HISTORICAL RESULTS MCHC 33.3 32.0 - 36.0 g/dl HISTORICAL RESULTS Rdw 13.1 11.5 - 14.5 % HISTORICAL RESULTS Platelets 304 150 - 400 K/cumm HISTORICAL RESULTS MPV 10.3 7.4 - 10.4 fl HISTORICAL RESULTS Blood specimen (specimen) 10/01/2014 4:45 PM LEAD FRONT DESK AGENT Epi Luna MD LAB BLOOD ORDERABLES Celia l Result Performing Organization Address [facility] de Phone Number HISTORICAL RESULTS * (ABNORMAL) Blood WBC cell morphologic exam, auto (10/01/2014 4:45 PM LEAD FRONT DESK AGENT) Lymphocytes, abs 0.8(L) 1.2 - 3.4 K/cumm HISTORICAL RESULTS Lymphocytes 11.1(L) 25.0 - 33.0 % HISTORICAL RESULTS Monocytes, absolute 0.3(L) 1.1 - 1.9 K/cumm HISTORICAL RESULTS Monos 4.4 0.0 - 13.0 % HISTORICAL RESULTS Neutrophils, abs 5.7 1.4 - 6.5 K/cumm HISTORICAL RESULTS Neutrophils 83.8(H) 54.0 - 69.0 % HISTORICAL RESULTS Eosinophils, abs 0.0 0.0 - 0.7 cells/cum m HISTORICAL RESULTS Eosinophils 0.6 0.0 - 10.0 % HISTORICAL RESULTS Basophils, abs 0.0 0.0 - 0.2 K/cumm HISTORICAL RESULTS Basophils 0.1 0.0 - 1.0 % HISTORICAL RESULTS Immature granulocyte, abs 0.0 0.0 - 0.0 K/cumm HISTORICAL RESULTS Immature granulocytes 0.0 0.0 - 1.0 % HISTORICAL RESULTS Blood specimen (specimen) 10/01/2014 4:45 PM LEAD FRONT DESK AGENT us Epi Luna MD LAB BLOOD ORDERABLES Celia desai Result HISTORICAL RESULTS * (ABNORMAL) Serum comprehensive metabolic panel (10/01/2014 4:45 PM LEAD FRONT DESK AGENT) BUN 8.0 6.0 - 23.0 mg/dl HISTORICAL RESULTS Sodium 136 134 - 143 mmol/L HISTORICAL RESULTS Potassium, sr 4.8 3.4 - 5.0 mmol/L HISTORICAL RESULTS Chloride 103 99 - 108 mmol/L HISTORICAL RESULTS CO2 27 23 - 32 mmol/L HISTORICAL RESULTS Glucose 110 70 - 199 mg/dl HISTORICAL RESULTS Comment: [...] glucose. New reference ranges implemented 10/01/2013. Creatinine 0.71 0.60 - 1.30 mg/dl HISTORICAL RESULTS Comment: eGFR: >70 ml/min/1.73sq.m if non -Cymraes. eGFR: >70 ml/min/1.73sq.m if -Cymraes. AVE GFR for 50-59 yr. age group: ??93 ml/min/1.73sq.m Calculated using MDRD Equation BUN/creat ratio 11 10 - 20 HIST ORICAL RESULTS A. gap 10 7 - 14 mmol/L HISTORICAL RESULTS Protein, sr 7.7 6.4 - 8.0 g/dl HISTORICAL RESULTS Alb 3.9 3.3 - 4.5 g/dl HISTORICAL RESULTS Alb/glob ratio 1.0(L) 1.1 - 1.8 HISTO RICAL RESULTS Calcium 9.2 8.6 - 9.8 mg/dl HISTORICAL RESULTS Bilirubin 0.4 0.0 - 1.1 mg/dl HISTORICAL RESULTS Alk phos 190(H) 44 - 125 Units/L HISTORICAL RESULTS AST 46(H) 5 - 40 Units/L HISTORICAL RESULTS ALT 110(H) 15 - 70 Units/L HISTORICAL RESULTS Serum 10/01/2014 4:45 PM LEAD FRONT DESK AGENT us Epi Luna MD LAB BLOOD ORDERABLES Celia desai Result HISTORICAL RESULTS * XR Chest Portable (10/01/2014 4:42 PM LEAD FRONT DESK AGENT) Anatomical Region Laterality Modality Body N/A Radiographic Krupa ging 10/01/2014 4:42 PM LEAD FRONT DESK AGENT Narrative 10/01/2014 9:59 PM LEAD FRONT DESK AGENT XR Chest Portable ? [id number] ??Acc#: ??[id number] DATE OF EXAM: ??Oct 01 2014 CLINICAL HISTORY: Tachycardia. ??Dizziness. ??Chest pain. RESULT: Portable AP view of the chest correlated to the study dated 02/20/09 demonstrates a normal size heart. ??Lungs are clear. ??Old granulomatous disease is present. ??The right hemidiaphragm is now mildly elevated moreso than on the prior study. IMPRESSION: 1. MILD ELEVATION OF RIGHT HEMIDIAPHRAGM. 2. OLD GRANULOMATOUS DISEASE. 3. LUNGS OTHERWISE CLEAR. Interpreting Physician: ??LEN BALDWIN M.D. ??Read on: ??Oct 01 2014 ??8:04P Transcribed by: ??dereck ??On: Oct 01 2014 ??8:04P Approved Electronically by: ??LEN BALDWIN M.D. ??on: ??Oct 01 2014 ??9:59P Ordering DR: Attending DR: DR Jonah PARKER Procedure Note Provider, MD Kip - 03/22/2017 XR Chest Portable [id number] Acc#: [id number] DATE OF EXAM: Oct 01 2014 CLINICAL HISTORY: Tachycardia. Dizziness. Chest pain. RESULT: Portable AP view of the chest correlated to the study dated 02/20/09demonstrates a normal size heart. Lungs are clear. Old granulomatousdisease is present. The right hemidiaphragm is now mildly elevated moresothan on the prior study. IMPRESSION: 1. MILD ELEVATION OF RIGHT HEMIDIAPHRAGM. 2. OLD GRANULOMATOUS DISEASE. 3. LUNGS OTHERWISE CLEAR. Interpreting Physician: LEN BALDWIN M.D. Read on: Oct 01 2014 8:04P Transcribed by: edreck On: Oct 01 2014 8:04P Approved Electronically by: LEN BALDWIN M.D. on: Oct 01 2014 9:59P Ordering DR: Attending DR: DR Jonah PARKER us Historical Provider MD IMG XR PROCEDURES Final R esult * Plasma partial thromboplastin time (PTT) (10/01/2014 4:30 PM LEAD FRONT DESK AGENT) APTT 30.3 -<36. seconds HISTOR ICAL RESULTS Plasma 10/01/2014 4:30 PM LEAD FRONT DESK AGENT us Epi Luna MD LAB BLOOD ORDERABLES Celia desai Result HISTORICAL RESULTS * Plasma prothrombin time (PT) (10/01/2014 4:30 PM LEAD FRONT DESK AGENT) Prothrombin time (PT) 11.7 10.9 - 14.8 seconds HISTORICAL RESULTS INR 0.89 HISTORICAL RESULTS Comment: RECOMMENDED RANGES FOR PROTIME INR: NOTE: THE INR HAS BEEN VALIDATED ONLY FOR PATIENTS ON STABLE ORAL ?ANTICOAGULANT THERAPY. ?2.0 - 3.0 ??PROPHYLAXIS OF VENOUS THROMBOSIS (HIGH RISK SURGERY) ?2.0 - 3.0 ??TREATMENT OF VENOUS THROMBOSIS ?2.0 - 3.0 ??TREATMENT OF PULMONARY EMBOLISM ?2.0 - 3.0 ??PREVENTION OF SYSTEMIC EMBOLISM ? TISSUE HEART VALVES ? AMI (TO PREVENT SYSTEMIC EMBOLISM)* ? VALVULAR HEART DISEASE ? ATRIAL FIBRILLATION ?2.5 - 3.5 ??MECHANICAL PROSTHETIC VALVES (HIGH RISK) ?2.0 - 3.0 ??BILEAFLET MECHANICAL VALVE IN AORTIC POSITION *If oral anticoagulant therapy is elected to prevent recurrent myocardial infarction, an INR of 2.5 to 3.5 is recommended, consistent with Food and Drug Administration recommendations. Plasma 10/01/2014 4:30 PM LEAD FRONT DESK AGENT Epi Luna MD LAB BLOOD ORDERABLES Celia l Result HISTORICAL RESULTS * Serum troponin I (10/01/2014 10:45 AM LEAD FRONT DESK AGENT) Troponin I <0.04 0.00 - 0.10 ng/ml HISTORICAL RESULTS Serum 10/01/2014 10:4 5 AM LEAD FRONT DESK AGENT Narrative HISTORICAL RESULTS - 10/01/2014 11:29 AM LEAD FRONT DESK AGENT NEGATIVE: ??0.00 - 0.10 NG/ML INDETERMINATE: ??0.11 - 0.50 NG/ML POSITIVE: ??GREATER THAN 0.50 NG/ML Epi Luna MD LAB BLOOD ORDERABLES Celia l Result HISTORICAL RESULTS * Blood D-dimer (10/01/2014 10:30 AM LEAD FRONT DESK AGENT) D-dimer 0.43 0.00 - 0.50 mcg/ml HISTORICAL RESULTS Blood specimen (specimen) 10/01/2014 10:30 AM LEAD FRONT DESK AGENT Narrative HISTORICAL RESULTS - 10/01/2014 12:15 PM LEAD FRONT DESK AGENT Units of Measure = ug/ml FEU The D-Dimer result should not be used as the sole indicator to rule in or exclude a diagnosis of Pulmonary Embolism or Deep Vein Thrombosis. us Kat Magana MD LAB BLOOD ORDERABLES Final R esult HISTORICAL RESULTS * Discharge Laboratory Cumulative Report (10/01/2014 12:00 AM LEAD FRONT DESK AGENT) 10/01/2014 Narrative HISTORICAL RESULTS - 10/02/2014 12:37 AM LEAD FRONT DESK AGENT Patient No: [id number] ? [facility] Patient Name: DALE BETANCUR ?[facility] Age: 49 YRS ?: 1965 ?Sex:F ?[address] )[phone] ?? Adm Dt: 10/01/2014 ?[place], [place] ??[id number] Created: 10/02/2014 ??0037 ?? Pt. Type: E ? Discharge Dt: 10/01/2014 ? Pathologists: Lesley Rowley MD Admit DrHumble Attend Dr: KAT MAGANA MD ? BLOOD CELL COUNTS ?Collection Date: ?10/01/14 ?Collection Time: ?1645 ? Ref Range: ?? Units: [4.00-10.50] /CMM ? WBC X 10^3 ?6.83 [4.20-5.40] ??/CMM ? RBC X 10^6 ?4.58 [12.0-16.0] ??G/DL ? HGB ? 13.4 [37.0-47.0] ??% ?HCT ? 40.3 [77.0-97.0] ??FL ? MCV ? 88.0 [23.0-34.0] ??PG ? MCH ? 29.3 [32.0-36.0] ??% ?MCHC ?33.3 [11.5-14.5] ??% ?RDW ? 13.1 [150-400] ?? /CMM ? PLT X 10^3 ? 304 ?BLOOD CELL DIFFERENTIAL ?Collection Date: ?14 ?Collection Time: ?1645 ? Ref Range: ?? Units: [54.0-69.0] ??% ?NEUTROPHILS ? 83.8 H [25.0-33.0] ??% ?LYMPHOCYTES ? 11.1 L [0.0-13.0] ??% ?MONOCYTES ?4.4 [0.0-10.0] ??% ?EOSINOPHILS ?0.6 [0.0-1.0] ?? % ?BASOPHILS ?0.1 ? /CMM ? A LYMPHOCYTE ? 0.8 L [0.0-1.0] ?? % ?IMM GRAN % ? 0.0 [0.00-0.02] ??/CMM ? A IMM GRAN ?0.00 [1.1-1.9] ?? /CMM ? A MONOCYTE ? 0.3 L [1.4-6.5] ?? /CMM ? A NEUTROPHIL ? 5.7 [0.0-0.7] ?? /CMM ? A EOSINOPHIL ? 0.0 [0.0-0.2] ?? /CMM ? A BASOPHIL ? 0.0 Footnotes and Symbols: L = Low, H = High ?? CONTINUED ?Page: ?? 1 Patient No: [id number] ? [facility] Patient Name: DALE BETANCUR ?[facility] Age: 49 YRS ?: 1965 ?Sex:F ?[address] )[phone] ?? Adm Dt: 10/01/2014 ?[place], [place] ??[address] Created: 10/02/2014 ??0037 ?? Pt. Type: E ? Discharge Dt: 10/01/2014 ? Pathologists: Lesley Rowley MD Admit Attend Dr: KAT MAGANA MD ? GENERAL CHEMISTRY ?Collection Date: ?10/01/14 ?Collection Time: ?1645 ? Ref Range: ?? Units: [134-143] ?? MMOL/L ? SODIUM ? 136 [3.4-5.0] ?? MMOL/L ? POTASSIUM ?4.8 [99.0-108.0] MMOL/L ? CHLORIDE ? 103.0 [23.0-32.0] ??MMOL/L ? TOTAL CO2 ? 27.4 ?? [7-14] ?MMOL/L ? ANION GAP ? 10 ??[70-199] ?? MG/DL ?GLUCOSE ?110 f [6.4-8.0] ?? G/DL ? TOTAL PROTEIN ?7.7 [3.3-4.5] ?? G/DL ? ALBUMIN ?3.9 [1.1-1.8] ?A/G RATIO ?1.0 L [8.6-9.8] ?? MG/DL ?CALCIUM ?9.2 [0.0-1.1] ?? MG/DL ?BILI TOTAL ? 0.4 ??[44-125] ?? U/L ?ALK PHOS ? 190 H ?? [5-40] ?U/L ?AST(SGOT) ? 46 Hf ??[15-70] ?U/L ?ALT(SGPT) ?110 Hf [6.0-23.0] ??MG/DL ?BUN ?8.0 ??[10-20] ? B/C RATIO ? 11 Footnotes and Symbols: L = Low, H [...] ?? CONTINUED ?Page: ?? 2 Patient No: [id number] ? [facility] Patient Name: DALE BETANCUR ?[facility] Age: 49 YRS ?: 1965 ?Sex:F ?[address] )[phone] ?? Adm Dt: 10/01/2014 ?[place], [place] ??[address] Created: 10/02/2014 ??0037 ?? Pt. Type: E ? Discharge Dt: 10/01/2014 ? Pathologists: Lesley Rowley MD Admit DrHumble Attend Dr: KAT MAGANA MD ? GENERAL CHEMISTRY ?Collection Date: ?10/01/14 ?Collection Time: ?1645 ? Ref Range: ?? Units: [0.60-1.30] ??MG/DL ?CREATININE ?0.71 f ?10/01/14 1645 eGFR: >70 ml/min/1.73sq.m if non -Cymraes. eGFR: >70 ml/min/1.73sq.m if -Cymraes. AVE GFR for 50-59 yr. age group: ??93 ml/min/1.73sq.m Calculated using MDRD Equation FOOTNOTE ADDED ON ?? 10/01/14 ?? AT 1721 BY 999 [1.5-2.2] ?? MG/DL ?MAGNESIUM ?2.1 ? CARDIAC CHEMISTRY ?Collection Date: ?10/01/14 ?Collection Time: ?1645 ? Ref Range: ?? Units: ?? [5-100] ?? PG/ML ?BNP ? <5 f [0.00-0.10] ??NG/ML ?TROPONIN I ? <0.04 f Footnotes and Symbols: f = Footnote BNP (01/16/03 -- Current) TROPONIN I (09/16/11 -- Current) NEGATIVE: ??0.00 - 0.10 NG/ML INDETERMINATE: ??0.11 - 0.50 NG/ML POSITIVE: ??GREATER THAN 0.50 NG/ML ?? CONTINUED ?Page: ?? 3 Patient No: [id number] ? [facility] Patient Name: DALE BETANCUR ?[facility] Age: 49 YRS ?: 1965 ?Sex:F ?[address] )[phone] ?? Adm Dt: 10/01/2014 ?[place] ??[id number] Created: 10/02/2014 ??0037 ?? Pt. Type: E ? Discharge Dt: 10/01/2014 ? Pathologists: Lesley Rowley MD Admit Attend Dr: KAT MAGANA MD ?COAGULATION ? Units: ?? PROTIME ?INR ?D-DIMER ?APTT PAT ? Low: ??[10.9-14.8] ? [0.00-0.50] ??[< ?? 36.0] ? Ref Range: ? SECS ? UG/ML ? SECS ? 10/01/14 1630 ?11.7 ? 0.89 f ? 0.43 f ? 30.3 Footnotes and Symbols: f = Footnote INR (06/09/00 -- Current) RECOMMENDED RANGES FOR PROTIME INR: NOTE: THE INR HAS BEEN VALIDATED ONLY FOR PATIENTS ON STABLE ORAL ?ANTICOAGULANT THERAPY. ?2.0 - 3.0 ??PROPHYLAXIS OF VENOUS THROMBOSIS (HIGH RISK SURGERY) ?2.0 - 3.0 ??TREATMENT OF VENOUS THROMBOSIS ?2.0 - 3.0 ??TREATMENT OF PULMONARY EMBOLISM ?2.0 - 3.0 ??PREVENTION OF SYSTEMIC EMBOLISM ? TISSUE HEART VALVES ? AMI (TO PREVENT SYSTEMIC EMBOLISM)* ? VALVULAR HEART DISEASE ? ATRIAL FIBRILLATION ?2.5 - 3.5 ??MECHANICAL PROSTHETIC VALVES (HIGH RISK) ?2.0 - 3.0 ??BILEAFLET MECHANICAL VALVE IN AORTIC POSITION *If oral anticoagulant therapy is elected to prevent recurrent myocardial infarction, an INR of 2.5 to 3.5 is recommended, consistent with Food and Drug Administration recommendations. D-DIMER (12/03/10 -- Current) Units of Measure = ug/ml FEU The D-Dimer result should not be used as the sole indicator to rule in or exclude a diagnosis of Pulmonary Embolism or Deep Vein Thrombosis. ?? END OF CHART ? Page: ?? 4 Historical Provider LAB BLOOD ORDERABLES Celia desai Result HISTORICAL RESULTS * ELECTROCARDIOGRAPHY (ECG) (10/01/2014) Narrative 10/01/2014 Ordered by an unspecified provider. us Historical Provider ECG ORDERABLES Final Res ult documented in this encounter Visit Diagnoses Diagnosis Migraine Migraine, unspecified, without mention of intractable migraine without mention of status migrainosus Viral infection in conditions classified elsewhere and of unspecified site Myalgia and myositis Unspecified myalgia and myositis Other malaise and fatigue Osteoporosis Unspecified osteoporosis documented in this encounter Care Teams Windows Deployment Technician Relationship Specialty Start Date End Date Mendoza Parker MD PCP - General 03/05/13 06/02/15 documented as of this encounter
--- OUTSIDE RECORDS SUMMARY | 2024-11-19 04:55 | XMS_ITS | Encounter Summary ---
Author Organization [facility] Care Team Providers Care Medical Laboratory Technical Officer Name Role Phone Mendoza Parker MD Primary Care Provider [phone]- [phone] Encounter Details Date Type Department Care Team (Latest Contact Info) Description 08/02/2014 3:30 PM CDT - 08/02/2014 4:00 PM CDT [facility] Becky Donald, DRILLING AND PRODUCTION SUPERINTENDENT [address] [facility] [address] [place] [address] Low back pain; Degeneration of lumbar or lumbosacral intervertebral disc Social History Tobacco Use Types Packs/Day Years Used Date Smoking Tobacco: Former Cigarettes Q uit: 11/21/2003 Alcohol Use Standard Drinks/Week Comments No 0 (1 standard drink = 0.6 oz pur e alcohol) Comments Unknown Sex and Gender Information Value Date Recorded Sex Assigned at Not on file 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 FINAL REPORT ACC# ??Date Time ??Exam [id number] Aug 02, 2014 15:45:00 [id number] Spine Lumbar 2 or 3 views EXAMINATION: ?Lumbar spine 2 or 3 views HISTORY: ??Lumbar spondylosis, compression deformity FINDINGS: ?? AP and lateral views of the lumbar spine are compared to the prior study from 07/08/2014. There is mild kyphosis of the thoracolumbar junction is unchanged. A minimal L4 superior endplate compression fracture is unchanged. Mild L3-L4 degenerative disc disease is also unchanged. Right upper quadrant cholecystectomy clips are redemonstrated. IMPRESSION: ?? 1. Unchanged minimal L4 superior endplate compression fracture. 2. Unchanged mild L3-L4 degenerative disc disease. Requested By: BECKY DONALD Dictated By: ?? CHELLE ECKERT M.D. ??on Aug 02 2014 ??3:57P This document has been electronically signed by: CHELLE ECKERT M.D. on Aug 02 2014 ??3:57P Procedure Note Provider, MD Kip - 03/22/2017 CHELLE ECKERT M.D. FINAL REPORT ACC# Date Time Exam [id number] Aug 02, 2014 15:45:00 [id number] Spine Lumbar 2 or 3 views EXAMINATION: Lumbar spine 2 or 3 views HISTORY: Lumbar spondylosis, compression deformity FINDINGS: AP and lateral views of the lumbar spine are compared to the prior study from 07/08/2014. There is mild kyphosis of the thoracolumbar junction is unchanged. A minimal L4 superior endplate compression fracture is unchanged. Mild L3-L4 degenerative disc disease is also unchanged. Right upper quadrant cholecystectomy clips are redemonstrated. IMPRESSION: 1. Unchanged minimal L4 superior endplate compression fracture. 2. Unchanged mild L3-L4 degenerative disc disease. Requested By: BECKY DONALD Dictated By: CHELLE ECKERT M.D. on Aug 02 2014 3:57P This document has been electronically signed by: CHELLE ECKERT M.D. on Aug 02 2014 3:57P us Historical Provider IMHarris XR PROCEDURES Final R esult documented in this encounter Visit Diagnoses Diagnosis Low back pain Lumbago Degeneration of lumbar or lumbosacral intervertebral disc documented in this encounter Care Teams Medical Laboratory Technical Officer Relationship Specialty Start Date End Date Mendoza Parker MD PCP - General 03/05/13 06/02/15 documented as of this encounter
--- OUTSIDE RECORDS SUMMARY | 2024-11-19 04:55 | XMS_ITS | Encounter Summary ---
Author Organization [facility] Healthcare Address [address] [place] [address] Care Team Providers Care Core Mounter Name Role Phone Mendoza Parker MD Primary Care Provider [phone]- [phone] Encounter Details Date Type Department Care Team (Late st Contact Info) Description 06/09/2014 11:39 AM CDT - 06/09/2014 11:59 PM CDT Hospital Encounter [facility] Aryan Mayo MD [address] [place] [address] Ptosis of eyelid Social History Tobacco Use Types Packs/Day Years Used Date Smoking Tobacco: Former Cigarettes Q uit: 11/21/2003 Alcohol Use Standard Drinks/Week Comments No 0 (1 standard drink = 0.6 oz pur e alcohol) Comments Unknown Sex and Gender Information Value Date Recorded Sex Assigned at Not on file 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 Gender Identity Not on file Sexual [...] Diagnosis Comments DISCHARGE CUMULATIVE SUMMARY ADDENDUM Routine 06/19/2014 12:38 AM CDT SERUM THYROID-STIMULATING HORMONE (TSH) Routine 06/09/2014 12:05 PM CDT SERUM COMPREHENSIVE METABOLIC PANEL Routine 06/09/2014 12:05 PM CDT BLOOD WBC CELL MORPHOLOGIC EXAM, AUTO Routine 06/09/2014 12:05 PM CDT BLOOD CELL COUNT (CBC) Routine 4 12:05 PM CDT URINE CALCIUM, 24 HOUR Routine 4 1:00 AM CDT SERUM / URINE CREATININE CLEARANCE, 24 HOUR Routine 06/09/2014 1:00 AM CDT DISCHARGE LABORATORY CUMULATIVE REPORT Routine 06/09/2014 12:00 AM CDT documented in this encounter Results * Discharge Cumulative Summary Addendum (06/19/2014 12:38 AM CDT) 06/19/2014 12:3 8 AM CDT Narrative HISTORICAL RESULTS - 06/19/2014 12:38 AM CDT Patient No: [id number] ? [facility] Patient Name: DALE BETANCUR ?[facility] Healthcare Age: 48 YRS ?: 1965 ?Sex:F ?[address] )[phone] ?? Adm Dt: 06/09/2014 ?[place], [place] ??[address] Created: 06/19/2014 ??0038 ?? Pt. Type: R ? Discharge Dt: 06/09/2014 ? Pathologists: Lesley Rowley MD Admit Dr. Christopher Hollingsworth: THOMAS FLEMING M.D. ? GENERAL CHEMISTRY ?Collection Date: ?06/09/14 ?Collection Time: ?1205 ? Ref Range: ?? Units: [134-143] ?? MMOL/L ? SODIUM ? 138 [3.4-5.0] ?? MMOL/L ? POTASSIUM ?3.9 [99.0-108.0] MMOL/L ? CHLORIDE ? 102.0 [23.0-32.0] ??MMOL/L ? TOTAL CO2 ? 32.3 H ?? [7-14] ?MMOL/L ? ANION GAP ?8 ??[70-199] ?? MG/DL ?GLUCOSE ? 84 f [6.4-8.0] ?? G/DL ? TOTAL PROTEIN ?7.3 [3.3-4.5] ?? G/DL ? ALBUMIN ?3.7 [1.1-1.8] ?A/G RATIO ?1.0 L [8.6-9.8] ?? MG/DL ?CALCIUM ?8.8 [0.0-1.1] ?? MG/DL ?BILI TOTAL ? 0.3 ??[44-125] ?? U/L ?ALK PHOS ? 145 H ?? [5-40] ?U/L ?AST(SGOT) ? 25 f ??[15-70] ?U/L ?ALT(SGPT) ? 37 f [6.0-23.0] ??MG/DL ?BUN ? 13.0 f ?06/09/14 1205 FAXED TO [id number] 06/18/14 14:38 [id number] FOOTNOTE ADDED ON ?? 06/18/14 ?? AT 1438 BY [id number] ??[10-20] ? B/C RATIO ? 14 Footnotes and Symbols: L = Low, H [...] ?? CONTINUED ?Page: ?? 1 Patient No: [id number] ? [facility] Patient Name: DALE BETANCUR ?[facility] Age: 48 YRS ?: 1965 ?Sex:F ?[address] )[phone] ?? Adm Dt: 06/09/2014 ?[place] ??[id number] Created: 06/19/2014 ??0038 ?? Pt. Type: R ? Discharge Dt: 06/09/2014 ? Pathologists: Lesley Armstrongit Dr. White Dr: THOMAS FLEMING M.D. ? GENERAL CHEMISTRY ?Collection Date: ?06/09/14 ?Collection Time: ?1205 ? Ref Range: ?? Units: [0.60-1.30] ??MG/DL ?CREATININE ?0.90 ?? END OF CHART ? Page: ?? 2 Historical Provider MD LAB MICROBIOLOGY - GENERA L ORDERABLES Final Result Performing Organization Address [facility] de Phone Number HISTORICAL RESULTS * Serum thyroid-stimulating hormone (TSH) (06/09/2014 12:05 PM CDT) Pathologist [facility] [place] TSH 0.57 0.35 - 4.80 mcIUnits/ml HISTORICAL RESULTS Serum 06/09/2014 12:0 5 PM CDT Result [facility] Historical Provider MD LAB BLOOD ORDERABLES Celia l Result Performing Organization Address [facility] de Phone Number HISTORICAL RESULTS * (ABNORMAL) Blood cell count (CBC) (06/09/2014 12:05 PM CDT) Pathologist [facility] [place] WBC 6.8 4.0 - 10.5 K/cumm HISTORICAL RESULTS RBC 4.11(L) 4.20 - 5.40 M/cumm HISTORICAL RESULTS Hgb 12.3 12.0 - 16.0 g/dl HISTORICAL RESULTS Hct 37.3 37.0 - 47.0 % HISTORICAL RESULTS MCV 90.8 77.0 - 97.0 fl HISTORICAL RESULTS MCH 29.9 23.0 - 34.0 pg HISTORICAL RESULTS MCHC 33.0 32.0 - 36.0 g/dl HISTORICAL RESULTS Rdw 12.9 11.5 - 14.5 % HISTORICAL RESULTS Platelets 308 150 - 400 K/cumm HISTORICAL RESULTS MPV 9.9 7.4 - 10.4 fl HISTORICAL RESULTS Blood specimen (specimen) 06/09/2014 12:05 PM CDT Historical Provider MD LAB BLOOD ORDERABLES Celia l Result Performing Organization Address [facility] Co de Phone Number HISTORICAL RESULTS * (ABNORMAL) Blood WBC cell morphologic exam, auto (06/09/2014 12:05 PM CDT) [facility] Lymphocytes 30.6 25.0 - 33.0 % HISTORICAL RESULTS Monos 6.9 0.0 - 13.0 % HISTORICAL RESULTS Neutrophils 59.5 54.0 - 69.0 % HISTORICAL RESULTS Eosinophils 2.3 0.0 - 10.0 % HISTORICAL RESULTS Basophils 0.6 0.0 - 1.0 % HISTORICAL RESULTS Immature granulocytes 0.1 0.0 - 1.0 % HISTORICAL RESULTS Lymphocytes, abs 2.1 1.2 - 3.4 K/cumm HISTORICAL RESULTS Monocytes, absolute 0.5(L) 1.1 - 1.9 K/cumm HISTORICAL RESULTS Neutrophils, abs 4.1 1.4 - 6.5 K/cumm HISTORICAL RESULTS Eosinophils, abs 0.2 0.0 - 0.7 cells/cumm HISTORICAL RESULTS Basophils, abs 0.0 0.0 - 0.2 K/cumm HISTORICAL RESULTS Immature granulocyte, abs 0.0 0.0 - 0.0 K/cumm HISTORICAL RESULTS Blood specimen (specimen) 06/09/2014 12:05 PM CDT Historical Provider LAB BLOOD ORDERABLES Celia desai Result Performing Organization Address [facility] de Phone Number HISTORICAL RESULTS * (ABNORMAL) Serum comprehensive metabolic panel (06/09/2014 12:05 PM CDT) [facility] BUN 13.0 6.0 - 23.0 mg/dl HISTORICAL RESULTS Comment: BUN ? CORRECTED FROM ? 13.0 ON 06/18/14 AT 1438 BY [id number] FAXED TO [id number] 06/18/14 14:38 [id number] Sodium 138 134 - 143 mmol/L HISTORICAL RESULTS Potassium, sr 3.9 3.4 - 5.0 mmol/L HISTORICAL RESULTS Chloride 102 99 - 108 mmol/L HISTORICAL RESULTS CO2 32(H) 23 - 32 mmol/L HISTORICAL RESULTS Glucose 84 70 - 199 mg/dl HISTORICAL RESULTS Comment: [...] glucose. New reference ranges implemented 10/01/2013. Creatinine 0.90 0.60 - 1.30 mg/dl HISTORICAL RESULTS BUN/creat ratio 14 10 - 20 HIST ORICAL RESULTS A. gap 8 7 - 14 mmol/L HISTORICAL RESULTS Protein, sr 7.3 6.4 - 8.0 g/dl HISTORICAL RESULTS Alb 3.7 3.3 - 4.5 g/dl HISTORICAL RESULTS Alb/glob ratio 1.0(L) 1.1 - 1.8 HISTO RICAL RESULTS Calcium 8.8 8.6 - 9.8 mg/dl HISTORICAL RESULTS Bilirubin 0.3 0.0 - 1.1 mg/dl HISTORICAL RESULTS Alk phos 145(H) 44 - 125 Units/L HISTORICAL RESULTS AST 25 5 - 40 Units/L HISTORICAL RESULTS ALT 37 15 - 70 Units/L HISTORICAL RESULTS Serum 06/09/2014 12:0 5 PM CDT Historical Provider LAB BLOOD ORDERABLES Celia l Result Performing Organization Address [facility] Co de Phone Number HISTORICAL RESULTS * Urine calcium, 24 hour (06/09/2014 1:00 AM CDT) Calcium, 24 hr, ur See Report mg/24 hr HISTORICAL RESULTS Urine 06/09/2014 1:00 AM CDT Historical Provider LAB BLOOD ORDERABLES Celia l Result HISTORICAL RESULTS * Serum / urine creatinine clearance, 24 hour (06/09/2014 1:00 AM CDT) Creatinine, ur 30 mg/dl HISTO RICAL RESULTS Creatinine, 24 hr, ur 1.02 1.00 - 2.00 g/24 hr HISTORICAL RESULTS Volume, 24 hr, ur 3400 ml HISTORICAL RESULTS Multiple specimen 06/09/2014 1:00 AM CDT us Historical Provider LAB BLOOD ORDERABLES Celia desai Result HISTORICAL RESULTS * Discharge Laboratory Cumulative Report (06/09/2014 12:00 AM CDT) 06/09/2014 Narrative HISTORICAL RESULTS - 06/11/2014 12:37 AM CDT Patient No: [id number] ? [facility] Patient Name: DALE BETANCUR ?[facility] Age: 48 YRS ?: 1965 ?Sex:F ?[address] )[phone] ?? Adm Dt: 06/09/2014 ?[place], [place] ??[address] Created: 06/11/2014 ??0037 ?? Pt. Type: R ? Discharge Dt: 06/09/2014 ? Pathologists: Lesley Rowley MD Admit Dr. White Dr: ? BLOOD CELL COUNTS ?Collection Date: ?06/09/14 ?Collection Time: ?1205 ? Ref Range: ?? Units: [4.00-10.50] /CMM ? WBC X 10^3 ?6.83 [4.20-5.40] ??/CMM ? RBC X 10^6 ?4.11 L [12.0-16.0] ??G/DL ? HGB ? 12.3 [37.0-47.0] ??% ?HCT ? 37.3 [77.0-97.0] ??FL ? MCV ? 90.8 [23.0-34.0] ??PG ? MCH ? 29.9 [32.0-36.0] ??% ?MCHC ?33.0 [11.5-14.5] ??% ?RDW ? 12.9 [150-400] ?? /CMM ? PLT X 10^3 ? 308 ?BLOOD CELL DIFFERENTIAL ?Collection Date: ?06/09/14 ?Collection Time: ?1205 ? Ref Range: ?? Units: [54.0-69.0] ??% ?NEUTROPHILS ? 59.5 [25.0-33.0] ??% ?LYMPHOCYTES ? 30.6 [0.0-13.0] ??% ?MONOCYTES ?6.9 [0.0-10.0] ??% ?EOSINOPHILS ?2.3 [0.0-1.0] ?? % ?BASOPHILS ?0.6 ? /CMM ? A LYMPHOCYTE ? 2.1 [0.0-1.0] ?? % ?IMM GRAN % ? 0.1 [0.00-0.02] ??/CMM ? A IMM GRAN ?0.01 [1.1-1.9] ?? /CMM ? A MONOCYTE ? 0.5 L [1.4-6.5] ?? /CMM ? A NEUTROPHIL ? 4.1 [0.0-0.7] ?? /CMM ? A EOSINOPHIL ? 0.2 [0.0-0.2] ?? /CMM ? A BASOPHIL ? 0.0 Footnotes and Symbols: L = Low ?? CONTINUED ?Page: ?? 1 Patient No: [id number] ? [facility] Patient Name: DALE BETANCUR ?[facility] Age: 48 YRS ?: 1965 ?Sex:F ?[address] )[phone] ?? Adm Dt: 06/09/2014 ?[place], [place] ??[address] Created: 06/11/2014 ??0037 ?? Pt. Type: R ? Discharge Dt: 06/09/2014 ? Pathologists: Lesley Rowley MD Admit Dr. White Dr: ? GENERAL CHEMISTRY ?Collection Date: ?06/09/14 ?Collection Time: ?1205 ? Ref Range: ?? Units: [134-143] ?? MMOL/L ? SODIUM ? 138 [3.4-5.0] ?? MMOL/L ? POTASSIUM ?3.9 [99.0-108.0] MMOL/L ? CHLORIDE ? 102.0 [23.0-32.0] ??MMOL/L ? TOTAL CO2 ? 32.3 H ?? [7-14] ?MMOL/L ? ANION GAP ?8 ??[70-199] ?? MG/DL ?GLUCOSE ? 84 f [6.4-8.0] ?? G/DL ? TOTAL PROTEIN ?7.3 [3.3-4.5] ?? G/DL ? ALBUMIN ?3.7 [1.1-1.8] ?A/G RATIO ?1.0 L [8.6-9.8] ?? MG/DL ?CALCIUM ?8.8 [0.0-1.1] ?? MG/DL ?BILI TOTAL ? 0.3 ??[44-125] ?? U/L ?ALK PHOS ? 145 H ?? [5-40] ?U/L ?AST(SGOT) ? 25 f ??[15-70] ?U/L ?ALT(SGPT) ? 37 f [6.0-23.0] ??MG/DL ?BUN ? 13.0 ??[10-20] ? B/C RATIO ? 14 [0.60-1.30] ??MG/DL ?CREATININE ?0.90 Footnotes and Symbols: L = Low, H [...] ?? CONTINUED ?Page: ?? 2 Patient No: [id number] ? [facility] Patient Name: DALE BETANCUR ?[facility] Healthcare Age: 48 YRS ?: 1965 ?Sex:F ?[address] )[phone] ?? Adm Dt: 06/09/2014 ?[place], [place] ??[address] Created: 06/11/2014 ??0037 ?? Pt. Type: R ? Discharge Dt: 06/09/2014 ? Pathologists: Lesley Rowley MD Admit Attend : ?THYROID FUNCTION TESTS ?Collection Date: ?06/09/14 ?Collection Time: ?1205 ? Ref Range: ?? Units: [0.35-4.80] ??uIU/ML ? TSH ? 0.57 ?URINE CHEMISTRY ?Collection Date: ?06/09/14 ?Collection Time: ?0100 ? Ref Range: ?? Units: [1000.0-2000.0]/24H ? U CREAT 24 HR ? 1020.0 ? ML ? TOTAL VOL 24HR ?3400 ?? END OF CHART ? Page: ?? 3 us Historical Provider LAB BLOOD ORDERABLES Celia l Result HISTORICAL RESULTS documented in this encounter Visit Diagnoses Diagnosis Ptosis of eyelid documented in this encounter Care Teams Core Mounter Relationship Specialty Start Date End Date Mendoza Parker MD PCP - General 03/05/13 06/02/15 documented as of this encounter
--- OUTSIDE RECORDS SUMMARY | 2024-11-19 04:55 | XMS_ITS | Encounter Summary ---
Author Organization [facility] Healthcare Address [address] [place] [address] Care Team Providers Care Assessment Coordinator Name Role Phone Mendoza Parker MD Primary Care Provider [phone]- [phone] Encounter Details Date Type Department Care Team (Late st Contact Info) Description 07/09/2015 2:11 PM CDT - 07/09/2015 11:59 PM CDT Hospital Encounter [facility] Urbano Delacruz MD [address] [id number] Osteoporosis Social History Tobacco Use Types Packs/Day Years Used Date Smoking Tobacco: Former Cigarettes Q uit: 11/21/2003 Alcohol Use Standard Drinks/Week Comments No 0 (1 standard drink = 0.6 oz pur e alcohol) Comments Unknown Sex and Gender Information Value Date Recorded Sex Assigned at Not on file 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 Historical Provider LAB BLOOD ORDERABLES Celia l Result * Serum 25-hydroxycholecalciferol (vitamin D) (07/09/2015 2:18 PM CDT) 25-OH Vit D 36 30 - 80 ng/ml HISTORICAL RESULTS Serum 07/09/2015 2:18 PM CDT Historical Provider LAB BLOOD ORDERABLES Celia l Result HISTORICAL RESULTS * Serum estimated glomerular filtration rate (07/09/2015 2:18 PM CDT) Pathologist [facility] eGFR >60 ml/min/1.7 3 m2 HISTORICAL RESULTS Comment: Interpretation of Estimated GFR (eGFR): Normal ?>/= 60 mL/min/1.73m2 Possible Chronic Kidney Disease ??15 - 59 mL/min/1.73m2 Possible Kidney Failure ?< 15 ??mL/min/1.73m2 If -[place] multiply value by 1.16. ??Estimated glomerular filtration rate is determined by the CKD-EPI equation recommended by the National Kidney Foundation (KDIGO 2012 Clinical Practice Guideline for the Evaluation and Management of Chronic Kidney Disease. ??Kidney Intnl Suppl Nov 2012;3:1). ??The CKD-EPI equation should not be used in acute renal failure or acute kidney injury and is not valid in children. Serum 07/09/2015 2:18 PM CDT us Historical Provider LAB BLOOD ORDERABLES Celia l Result HISTORICAL RESULTS * Plasma comprehensive metabolic panel (07/09/2015 9:18 AM CDT) Pathologist [facility] Sodium 140 135 - 145 mmol/L HISTORICAL RESULTS K, pl 4.1 3.5 - 5.1 mmol/L HISTORICAL RESULTS Chloride 105 97 - 110 mmol/L HISTORICAL RESULTS CO2 26 22 - 32 mmol/L HISTORICAL RESULTS A. gap 13 8 - 16 mmol/L HISTORICAL RESULTS Glucose 81 70 - 199 mg/dl HISTORICAL RESULTS Comment: [...] data was last revised on 2015. BUN 10.9 8.0 - 25.0 mg/dl HISTORICAL RESULTS Creatinine 0.60 0.60 - 1.10 mg/dl HISTORICAL RESULTS BUN/creat ratio 18 10 - 20 HIST ORICAL RESULTS Calcium 9.4 8.6 - 10.2 mg/dl HISTORICAL RESULTS Protein, sr 7.1 6.0 - 8.4 g/dl HISTORICAL RESULTS Alb 4.2 3.6 - 5.0 g/dl HISTORICAL RESULTS Alb/glob ratio 1.4 1.1 - 1.8 ratio HISTORICAL RESULTS Alk phos 121 40 - 130 Units/L HISTORICAL RESULTS ALT 15 5 - 45 Units/L HISTORICAL RESULTS AST 14 10 - 40 Units/L HISTORICAL RESULTS Bilirubin 0.2 <=1.2 mg/dl HISTORICAL RESULTS Plasma 07/09/2015 9:18 AM CDT Narrative HISTORICAL RESULTS - 07/09/2015 11:02 AM CDT FAX RESULTS TO [phone] us Historical Provider LAB BLOOD ORDERABLES Celia l Result HISTORICAL RESULTS documented in this encounter Visit Diagnoses Diagnosis Osteoporosis Unspecified osteoporosis documented in this encounter Care Teams Assessment Coordinator Relationship Specialty Start Date End Date Mendoza Parker MD PCP - General 06/03/15 11/17/15 documented as of this encounter
--- OUTSIDE RECORDS SUMMARY | 2024-11-19 04:55 | XMS_ITS | Encounter Summary ---
Author Organization [facility] Healthcare Address [address] [place] [address] Care Team Providers Care Wax Molder Name Role Phone Mendoza Parker MD Primary Care Provider +1- [phone] Encounter Details Date Type Department Care Team (Late st Contact Info) Description 07/08/2016 5:59 AM CDT - 07/08/2016 11:00 AM CDT Hospital Encounter [facility] Arnol Hernandez MD [address] [place] [address] [address] [place] [address] [address] Pain due to internal orthopedic prosthetic devices, implants and grafts, initial encounter (HCC); Exposure to other specified factors, initial encounter; Other surgical procedures as the cause of abnormal reaction of the patient, or of later complication, without mention of misadventure at the time of the procedure; Unspecified place or not applicable; Allergy status to other antibiotic agents status; Allergy status to narcotic agent; Essential (primary) hypertension; Anxiety disorder; Fibromyalgia; Sleep apnea Social History Tobacco Use Types Packs/Day Years Used Date Smoking Tobacco: Former Cigarettes Q uit: 11/21/2003 Alcohol Use Standard Drinks/Week Comments No 0 (1 standard drink = 0.6 oz pur e alcohol) Comments Unknown Sex and Gender Information Value Date Recorded Sex Assigned at Not on file 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 Admit Date: 07/08/2016 Surg.: Arnol Moreau M.D. Disch. Date: 07/08/2016 SURGEON Arnol Moreau MD DIAGNOSIS Right ankle painful hardware. PROCEDURE Right ankle hardware removal of syndesmotic screw and 2 medial malleolar screws. ANESTHESIA General. SPECIMENS Sent. EBL Minimal. COMPLICATIONS None. DISCHARGE Stable. TOURNIQUET TIME Approximately 25 minutes at 275. OPERATIVE INDICATIONS Patient underwent open reduction and internal fixation of her ankle, developed some hardware pain, elected to have the above named procedure. Informed consent was obtained from the patient. The patient understood the risks and benefits of the procedure including but not limited to , stroke, bleeding, infection, damage to nerves, arteries, veins, loss of limb, loss of life, need for additional procedures. Informed consent was obtained, consent form was also signed. OPERATION IN DETAIL Patient was brought to OR, general anesthetic was performed. Right lower extremity was cleaned with alcohol, and prepped and draped in standard sterile technique with ChloraPrep. Standard timeout was performed. Operative extremity was identified, it was also marked preoperatively. Exsanguinated the lower extremity, inflated the tourniquet to 275. Fluoroscopic assistance to confirm the location of the syndesmotic screw. An incision was made laterally, screw was identified and removed. The 2 medial malleolar screws, previous incisions were made. Careful dissection down to the screw was performed. K-wires were placed and the screws were both removed. The wounds were irrigated. The lateral wound was closed with 3-0 Vicryl, Mastisol, Steri-Strips. The medial wounds were closed with 3-0 Vicryl, 4-0 nylon, Xeroform, OpSite dressings were placed, cast padding, and KARYNA were placed. The patient was extubated, taken to recovery room in stable condition. Needle counts, sponge counts, instrument counts were correct at the end of the case. POSTOPERATIVE PLAN Patient will be weightbearing as tolerated, range of motion as tolerated. She will follow up in 2 weeks for suture removal and start a home exercise program at that time. Thank you for allowing me to participate in this patient's care. Electronically Authenticated by: Arnol Moreau MD On 07/13/2016 10:55 AM CDT Arnol Moreau M.D. MAIKEL/maral TD: 07/08/2016 09:01 documented in this encounter Plan of Treatment Not on file documented as of this encounter Procedures Procedure Name Priority Date/Time Associated Diagnosis Comments XR ANKLE 2 VW Routine 07/08/2016 8:42 AM CDT documented in this encounter Results * XR Ankle 2 VW (07/08/2016 8:42 AM CDT) Anatomical Region Laterality Modality N/A Radiographic Krupa ging 07/08/2016 8:42 AM CDT Narrative 07/08/2016 4:00 PM CDT XR Ankle 2 Views R ?? [id number] ??Acc#: ??[id number] XR NOCHARGE FLURO LESS THAN 1HR ??Acc#: ??[id number] DATE OF EXAM: ??Jul 08 2016 CLINICAL HISTORY: Post traumatic arthritis. Fixation hardware. Removal of hardware. RESULT: Fifteen image intensification views obtained with C-arm fluoroscope camera in operating room. On image #1, once again noted are postsurgical changes at the right ankle, with a surgical plate at the lateral aspect of the distal fibula extending to the lateral malleolus, with multiple surgical screws for fixation, two long cannulated screws for fixation of the fracture of the malleolus. On the final image, the screws for fixation of the medial malleolus have been removed. Also, the transverse screw from the distal fibula which traversed the distal tibia has been removed. Fluoroscopy time was 18 seconds. IMPRESSION: ABOVE. Interpreting Physician: ??JOSEF SETHI M.D. ??Read on: ??Jul 08 2016 10:30A Transcribed by: ??TXD ??On: Jul 08 2016 12:19P Approved Electronically by: ??JOSEF SETHI M.D. ??on: ??Jul 08 2016 ??4:00P Attending: ??ARNOL MOREAU Requesting: ??ARNOL MOREAU Requesting Fax: ??[phone] Attending Fax: ??[phone] Attending ID: ??[id number] Requesting ID: ??[id number] Report To 1 ID: ??[id number] Report To 1 Name: ??ARNOL MOREAU Report To 1 FAX: ??[phone] NextGen Order #: Procedure Note Provider, MD Kip - 03/28/2017 XR Ankle 2 Views R [id number] Acc#: [id number] XR NOCHARGE FLURO LESS THAN 1HR Acc#: [id number] DATE OF EXAM: Jul 08 2016 CLINICAL HISTORY: Post traumatic arthritis. Fixation hardware. Removal of hardware. RESULT: Fifteen image intensification views obtained with C-arm fluoroscopecamera in operating room. On image #1, once again noted are postsurgicalchanges at the right ankle, with a surgical plate at the lateral aspect ofthe distal fibula extending to the lateral malleolus, with multiplesurgical screws for fixation, two long cannulated screws for fixation ofthe fracture of the malleolus. On the final image, the screws for fixationof the medial malleolus have been removed. Also, the transverse screw fromthe distal fibula which traversed the distal tibia has been removed.Fluoroscopy time was 18 seconds. IMPRESSION: ABOVE. Interpreting Physician: JOSEF SETHI M.D. Read on: Jul 08 2016 10:30A Transcribed by: TXD On: Jul 08 2016 12:19P Approved Electronically by: JOSEF SETHI M.D. on: Jul 08 2016 4:00P Attending: ARNOL MOREAU Requesting: ARNOL MOREAU Requesting Attending Attending ID: [id number] Requesting ID: [id number] Report To 1 ID: [id number] Report To 1 Name: ARNOL MOREAU Report To 1 FAX: [phone] NextGen Order #: us Historical Provider MD LAWSON XR PROCEDURES Final R esult documented in this encounter Visit Diagnoses Diagnosis Pain due to internal orthopedic prosthetic devices, implants and grafts, initial encounter (HCC) Exposure to other specified factors, initial encounter Other surgical procedures as the cause of abnormal reaction of the patient, or of later complication, without mention of misadventure at the time of the procedure Unspecified place or not applicable Allergy status to other antibiotic agents status Allergy status to narcotic agent Essential (primary) hypertension Unspecified essential hypertension Anxiety disorder Anxiety state, unspecified Fibromyalgia Unspecified myalgia and myositis Sleep apnea Unspecified sleep apnea documented in this encounter Care Teams Wax Molder Relationship Specialty Start Date End Date Mendoza Parker MD PCP - General 11/18/15 02/17/17 documented as of this encounter
--- OUTSIDE RECORDS SUMMARY | 2024-11-19 04:55 | XMS_ITS | Encounter Summary ---
Author Organization [facility] Healthcare Address [address] [place] [address] Care Team Providers Care Rn Quality Name Role Phone Mendoza Parker MD Primary Care Provider +1- [phone] Encounter Details Date Type Department Care Team (Late st Contact Info) Description 09/21/2014 10:43 AM CDT - 09/21/2014 11:59 PM CDT Hospital Encounter [facility]CON[facility] Tay MD [address] [id number] Other nonspecific finding on examination of urine; Disorder of bone and cartilage Social History Tobacco Use Types Packs/Day Years Used Date Smoking Tobacco: Former Cigarettes Q uit: 11/21/2003 Alcohol Use Standard Drinks/Week Comments No 0 (1 standard drink = 0.6 oz pur e alcohol) Comments Unknown Sex and Gender Information Value Date Recorded Sex Assigned at Not on file Legal Sex Female 12:46 AM 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 Gender Identity Not on file [...] Diagnosis Comments DISCHARGE CUMULATIVE SUMMARY ADDENDUM Routine 09/25/2014 12:38 AM 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 SERUM COMPREHENSIVE METABOLIC PANEL Routine 09/21/2014 11:10 AM CDT PLASMA PARATHYROID HORMONE (PTH), INTACT Routine 09/21/2014 11:10 AM CDT SERUM 25-HYDROXYCHOLECALCIFE ROL (VITAMIN D) Routine 09/21/2014 6:10 AM CDT REFERRED TEST, MISCELLANEOUS Routine 09/21/2014 6:10 AM CDT PLASMA CORTISOL Routine 09/21/2014 6:10 AM CDT DISCHARGE LABORATORY CUMULATIVE REPORT Routine 09/21/2014 12:00 AM CDT documented in this encounter Results * Discharge Cumulative Summary Addendum (09/25/2014 12:38 AM 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) 09/25/2014 12:3 8 AM 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 Narrative HISTORICAL RESULTS - 09/25/2014 12:38 AM 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 Patient No: [id number] ? [facility] Patient Name: DALE BETANCUR ?[facility] Healthcare Age: 49 YRS ?: 1965 ?Sex:F ?[address] )[id number] ?? Adm Dt: 09/21/2014 ?[place], [place] ??[address] Created: 09/25/2014 ??0038 ?? Pt. Type: R ? Discharge Dt: 09/21/2014 ? Pathologists: Lesley Rowley MD Admit Dr. Christopher Hollingsworth: ?[facility] ?Collection Date: ?09/21/14 ?Collection Time: ?1110 ? Ref Range: ?? Units: ?GOOD FRIG GO @ ?SEE FN f Footnotes and Symbols: f = Footnote @ = GOOD FRIG GO Performed at ??[facility] FRIG GO... 09/21/14 1110 Test ?Result ?? Flag ??Unit ?? RefValue Bone Alkaline Phosphatase, S ?20 ? mcg/L ? REFERENCE VALUE ? <=14 (Premenopausal) ? <=22 (Postmenopausal) ?? END OF CHART ? Page: ?? 1 us Historical Provider LAB MICROBIOLOGY - GENERA L ORDERABLES Final Result HISTORICAL RESULTS * (ABNORMAL) Serum comprehensive metabolic panel (09/21/2014 11:10 AM CDT) [facility] BUN 6.0 6.0 - 23.0 mg/dl HISTORICAL RESULTS Sodium 138 134 - 143 mmol/L HISTORICAL RESULTS Potassium, sr 4.5 3.4 - 5.0 mmol/L HISTORICAL RESULTS Chloride 106 99 - 108 mmol/L HISTORICAL RESULTS CO2 30 23 - 32 mmol/L HISTORICAL RESULTS Glucose 114 70 - 199 mg/dl HISTORICAL RESULTS Comment: [...] glucose. New reference ranges implemented 10/01/2013. Creatinine 0.91 0.60 - 1.30 mg/dl HISTORICAL RESULTS Comment: eGFR:70 ml/min/1.73sq.m if non -Central African. eGFR: >70 ml/min/1.73sq.m if -Central African. AVE GFR for 50-59 yr. age group: ??93 ml/min/1.73sq.m Calculated using MDRD Equation BUN/creat ratio 7(L) 10 - 20 HIST ORICAL RESULTS A. gap 7 7 - 14 mmol/L HISTORICAL RESULTS Protein, sr 7.6 6.4 - 8.0 g/dl HISTORICAL RESULTS Alb 3.8 3.3 - 4.5 g/dl HISTORICAL RESULTS Alb/glob ratio 1.0(L) 1.1 - 1.8 HISTO RICAL RESULTS Calcium 9.1 8.6 - 9.8 mg/dl HISTORICAL RESULTS Bilirubin 0.2 0.0 - 1.1 mg/dl HISTORICAL RESULTS Alk phos 210(H) 44 - 125 Units/L HISTORICAL RESULTS AST 16 5 - 40 Units/L HISTORICAL RESULTS ALT 35 15 - 70 Units/L HISTORICAL RESULTS Serum 09/21/2014 11:1 0 AM CDT Historical Provider MD LAB BLOOD ORDERABLES Celia l Result HISTORICAL RESULTS * Plasma parathyroid hormone (PTH), intact (09/21/2014 11:10 AM CDT) Calcium 9.1 8.6 - 9.8 mg/dl HISTORICAL RESULTS PTH, intact 58 14 - 72 pg/ml HISTORICAL RESULTS Plasma 09/21/2014 11:1 0 AM CDT Historical Provider MD LAB BLOOD ORDERABLES Celia l Result HISTORICAL RESULTS * Referred test, miscellaneous (09/21/2014 6:10 AM CDT) Referral specimen, test result SEEFN HISTORICAL RESULTS Miscellaneous 09/21/2014 6:1 0 AM CDT Narrative HISTORICAL RESULTS - 09/24/2014 7:17 AM 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 GOKEY BAP Test ?Result ?? Flag ??Unit ?? RefValue Bone Alkaline Phosphatase, S ?20 ? mcg/L ? REFERENCE VALUE ?<=14 (Premenopausal) ?<=22 (Postmenopausal) Result [facility] Provider LAB BLOOD ORDERABLES Celia desai Result Performing Organization Address [facility] de Phone Number HISTORICAL RESULTS * Serum 25-hydroxycholecalciferol (vitamin D) (09/21/2014 6:10 AM CDT) 25-OH Vit D 48 30 - 80 ng/ml HISTORICAL RESULTS Serum 09/21/2014 6:10 AM CDT Narrative HISTORICAL RESULTS - 09/23/2014 1:28 AM 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 Fluorescein dye used in some angiography procedures interferes with the Vitamin D assay, falsely elevating the result. Vitamin D should not be performed within 3 days of fluorescein use, longer in patients with renal insufficiency, to avoid this interference. Result [facility] Provider LAB BLOOD ORDERABLES Celia l Result Performing Organization Address [facility] de Phone Number HISTORICAL RESULTS * Plasma cortisol (09/21/2014 6:10 AM CDT) Cortisol 0.5 mcg/dl HISTORICAL RESULTS Plasma 09/21/2014 6:10 AM CDT Narrative HISTORICAL RESULTS - 09/23/2014 1:28 AM 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 REF. RANGE VARIES WITH TIME OF DAY am(7-9 am) 4.3 - 22.4 ug/dl pm(3-5 pm) 3.1 - 16.7 ug/dl [facility] Provider MD LAB BLOOD ORDERABLES Celia l Result HISTORICAL RESULTS * Discharge Laboratory Cumulative Report (09/21/2014 12:00 AM CDT) 09/21/2014 Narrative HISTORICAL RESULTS - 09/23/2014 12:35 AM 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 Patient No: [id number] ? [facility] Patient Name: DALE BETANCUR ?[facility] Age: 49 YRS ?: 1965 ?Sex:F ?[address] )[id number] ?? Adm Dt: 09/21/2014 ?[place], [place] ??[id number] Created: 09/23/2014 ??0035 ?? Pt. Type: R ? Discharge Dt: 09/21/2014 ? Pathologists: Lesley Rowley MD Admit Dr. Christopher Hollingsworth: ? GENERAL CHEMISTRY ?Collection Date: ?09/21/14 ?Collection Time: ?1110 ? Ref Range: ?? Units: [134-143] ?? MMOL/L ? SODIUM ? 138 [3.4-5.0] ?? MMOL/L ? POTASSIUM ?4.5 [99.0-108.0] MMOL/L ? CHLORIDE ? 106.0 [23.0-32.0] ??MMOL/L ? TOTAL CO2 ? 29.6 ?? [7-14] ?MMOL/L ? ANION GAP ?7 ??[70-199] ?? MG/DL ?GLUCOSE ?114 f [6.4-8.0] ?? G/DL ? TOTAL PROTEIN ?7.6 [3.3-4.5] ?? G/DL ? ALBUMIN ?3.8 [1.1-1.8] ?A/G RATIO ?1.0 L [8.6-9.8] ?? MG/DL ?CALCIUM ?9.1 [0.0-1.1] ?? MG/DL ?BILI TOTAL ? 0.2 ??[44-125] ?? U/L ?ALK PHOS ? 210 H ?? [5-40] ?U/L ?AST(SGOT) ? 16 f ??[15-70] ?U/L ?ALT(SGPT) ? 35 f [6.0-23.0] ??MG/DL ?BUN ?6.0 ??[10-20] ? B/C RATIO ?7 L Footnotes and Symbols: L = Low, H [...] ?? CONTINUED ?Page: ?? 1 Patient No: [id number] ? [facility] Patient Name: DALE BETANCUR ?[facility] Age: 49 YRS ?: 1965 ?Sex:F ?[address] )[phone] ?? Adm Dt: 09/21/2014 ?[place] ??[id number] Created: 09/23/2014 ??0035 ?? Pt. Type: R ? Discharge Dt: 09/21/2014 ? Pathologists: Lesley Rowley MD Admit Dr. White Dr: ? GENERAL CHEMISTRY ?Collection Date: ?09/21/14 ?Collection Time: ?1110 ? Ref Range: ?? Units: [0.60-1.30] ??MG/DL ?CREATININE ?0.91 f ?09/21/14 1110 eGFR:70 ml/min/1.73sq.m if non -Central African. eGFR: >70 ml/min/1.73sq.m if -Central African. AVE GFR for 50-59 yr. age group: ??93 ml/min/1.73sq.m Calculated using MDRD Equation FOOTNOTE ADDED ON ?? 09/21/14 ?? AT 1134 BY 999 ? [facility] ?Collection Date: ?09/21/14 ?Collection Time: ?1110 ? Ref Range: ?? Units: ??[14-72] ?pg/ml ?Intact PTH ?58 [8.6-9.8] ?? MG/DL ?CALCIUM ?9.1 Footnotes and Symbols: f = Footnote ?? END OF CHART ? Page: ?? 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
--- OUTSIDE RECORDS SUMMARY | 2024-11-19 04:55 | XMS_ITS | Encounter Summary ---
Author Organization [facility] Healthcare Address [address] [place] [address] Care Team Providers Care Cellophane Bath Mixer Name Role Phone Mendoza Parker MD Primary Care Provider +1- [phone] Encounter Details Date Type Department Care Team (Late st Contact Info) Description 05/20/2015 12:49 AM CDT - 05/20/2015 11:59 PM CDT Hospital Encounter [facility]INCONV Injury, other and unspecified, knee, leg, ankle, and foot; Fall; Unspecified place of occurrence Social History Tobacco Use Types Packs/Day Years Used Date Smoking Tobacco: Former Cigarettes Q uit: 11/21/2003 Alcohol Use Standard Drinks/Week Comments No 0 (1 standard drink = 0.6 oz pur e alcohol) Comments Unknown Sex and Gender Information Value Date Recorded Sex Assigned at Not on file 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
--- OUTSIDE RECORDS SUMMARY | 2024-11-19 04:55 | XMS_ITS | Encounter Summary ---
Author Organization [facility] Healthcare Address [address] [place] [address] Care Team Providers Care Vacuum Plastic Forming Machine Operator Name Role Phone Mendoza Parker MD Primary Care Provider +1- [phone] Encounter Details Date Type Department Care Team (Late st Contact Info) Description 02/26/2014 7:34 AM CDT - 02/26/2014 1:15 PM CDT Hospital Encounter [facility] Shannan Cantu MD [address] [place] [address] Chronic cholecystitis; Myalgia and myositis; Irritable colon; Migraine; Personal history of allergy to narcotic agent; [...] on file Legal 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 Admit Date: 02/26/2014 Surg.: Shannan Cantu M.D. Disch. Date: DATE OF SURGERY: 02/26/2014 PREOPERATIVE DIAGNOSIS: Chronic cholecystitis, biliary colic. POSTOPERATIVE DIAGNOSIS: Chronic cholecystitis, biliary colic. OPERATION: Laparoscopic cholecystectomy. ANESTHESIA: General. COMPLICATIONS: None. ESTIMATED BLOOD LOSS: Minimal. INDICATIONS: The patient is a very pleasant female who presented to my office complaining of right upper quadrant/epigastric pain associated with bloating. Reports that the pain was worse after eating, especially with fatty, greasy or spicy foods. Her workup included both ultrasound and HIDA scan that were consistent with biliary colic, cholecystitis. Given this, I did recommend elective cholecystectomy. The risks, benefits, and alternatives were discussed with the patient in full detail, and she freely opted to sign the consent to proceed. PROCEDURE: The patient was taken to the operating room and placed in the supine position. After adequate induction of general anesthesia, the patient was prepped and draped in normal sterile fashion. A timeout was then done to verify the patient's identity, as well as the procedure to be performed. We began by making a 5 mm incision in the infraumbilical region. Through this, a Veress needle was placed in the infraumbilical region. Through this, a Veress needle was placed in the peritoneal cavity. CO2 gas was then insufflated. After an adequate pneumoperitoneum was achieved, the Veress needle was removed and a 5 mm trocar was placed through this incision. I then placed a laparoscope through this trocar, and under direct visualization, placed a further 12 mm subxiphoid port, as well as two additional 5 mm ports in the right abdomen. It was noted at this point that the patient had multiple abdominal adhesions from likely previous surgery. She also had adhesions from the dome of the liver to the anterior abdominal wall. The gallbladder was then identified. It was noted to be distended. There were some adhesions noted to the gallbladder itself. These were taken down bluntly. Once the gallbladder was freed of all its adhesions, I was able to place a grasper at the dome of the gallbladder. This was retracted anterior and cephalad up over the liver. A second retractor was placed at the infundibulum and retracted laterally to open up the elements of the triangle of Calot. Using very careful lateral to medial dissection, I was able to clearly identify all elements of the triangle of Calot, first identifying the cystic duct. The cystic duct was noted in its entirety from its proximal insertion in the gallbladder to its distal junction with the common hepatic/common bile duct junction. At this point, the proximal cystic duct was further skeletonized, clipped and transected. Next, I was able to identify the cystic artery. Again, the artery was fully visualized. It was then skeletonized, clipped and transected. I then used the Bovie cautery to take down the peritoneal attachments of the gallbladder off the liver bed. Once the gallbladder specimen was completely detached, an Endo pouch was placed through the 12 mm port and the gallbladder specimen was placed into the Endo pouch and removed through the 12 mm port site. It will now be sent to pathology for further review. At this point, I copiously irrigated the right upper quadrant. Hemostasis was noted in the liver bed. The clips were in good position on both the duct and the artery. At this point, I moved the camera to the subxiphoid port to check our point of entry. No iatrogenic injury was noted. Again, the patient had multiple adhesions in the lower abdomen. However, no obvious obstruction or other pathology was noted. At this point, I desufflated the abdomen. All ports were removed. The fascia of the 12 mm port site was closed with an 0 Vicryl [id number]-ti-uqemu suture. 4-0 Monocryl sutures were used to close all port sites. Dermabond was then placed on each wound. The patient tolerated the procedure well. Shannan Cantu M.D. [facility]/nd TD: 02/26/2014 14:43 Authenticated by Abad Cantu MD On 02/28/2014 08:31:19 AM documented in this encounter Plan of Treatment Not on file documented as of this encounter Procedures Procedure Name Priority Date/Time Associated Diagnosis Comments SURGICAL PATHOLOGY REPORT Routine 02/26/2014 3:05 PM CDT DISCHARGE LABORATORY CUMULATIVE REPORT Routine 02/26/2014 12:00 AM CDT documented in this encounter Results * Surgical Pathology Report (02/26/2014 3:05 PM CDT) 02/26/2014 3:05 PM CDT Narrative HISTORICAL RESULTS - 02/27/2014 2:18 PM CDT [facility] Patient No: [id number] Patient Name: DALE BETANCUR )[id number] Age: 48 YRS ?? : 1965 Admit Phys: SHANNAN CANTU (CHARLEY) Case #: [id number] ? Date: 02/26/14 SPECIMEN SOURCE: ? Gallbladder. CLINICAL INFORMATION AND IMPRESSION: ? Cholecystitis. GROSS DESCRIPTION: ? The specimen is submitted in a single container labeled ? Dale Betancur and gallbladder . ??Submitted is a distended ? gallbladder, leaking green viscous bile, measuring ? approximately 7.2 cm in length and up to 3.3 cm in diameter. ? The serosal surface is smooth and shiny with a partially ? fatty yellow-green and buchanan appearance. ??The lumen is filled ? with green viscous bile but I do not identify any stones ? either within the gallbladder lumen or separately in the ? specimen container. The mucosal surface is velvety and ? granular in texture with a fairly uniform yellowish green ? color. ??The wall is uniformly soft, thin and pliable ? measuring no greater than 1-2 mm in thickness. Represented in ? one cassette. ? SR/lm MICROSCOPIC DESCRIPTION: ? Microscopic examination of the gallbladder reveals benign, ? non-neoplastic tissue. ??No pathologic type or degree of ? inflammation is noted but there is at least focal ? Rokitansky-Aschoff sinus formation. ??SR/lm DIAGNOSIS: ? GALLBLADDER, CHOLECYSTECTOMY: ? -NO PATHOLOGIC DIAGNOSIS ? [id number], [id number] ? Pathologist: Lesley C. Halley, M.D. ??Electronic ?signature ? SCR SCR/LM 02/27/14 us Historical Provider MD LAB PATHOLOGY ORDERABLES Final Result HISTORICAL RESULTS * Discharge Laboratory Cumulative Report (02/26/2014 12:00 AM CDT) 02/26/2014 Narrative HISTORICAL RESULTS - 03/01/2014 12:35 AM CDT Patient No: [id number] ? [facility] Patient Name: DALE BETANCUR ?[facility] Healthcare Age: 48 YRS ?: 1965 ?Sex:F ?[address] [employer] )[id number] ?? Adm Dt: 02/26/2014 ?[place], [place] ??[address] Created: 03/01/2014 ??0035 ?? Pt. Type: O ? Discharge Dt: 02/26/2014 ? Pathologists: Lesley Rowley MD Admit Attend Dr: SHANNAN CANTU) ?S U R G I C A L ?P A T H O L O G Y ?R E P O R T ? Case #: ?[id number] ? Date: 02/26/14 SPECIMEN SOURCE: ? Gallbladder. CLINICAL INFORMATION AND IMPRESSION: ? Cholecystitis. GROSS DESCRIPTION: ? The specimen is submitted in a single container labeled Dale Balesga and ? gallbladder . ??Submitted is a distended gallbladder, leaking green viscous ? bile, measuring approximately 7.2 cm in length and up to 3.3 cm in diameter. ? The serosal surface is smooth and shiny with a partially fatty yellow-green ? and buchanan appearance. ??The lumen is filled with green viscous bile but I do not ? identify any stones either within the gallbladder lumen or separately in the ? specimen container. The mucosal surface is velvety and granular in texture ? with a fairly uniform yellowish green color. ??The wall is uniformly soft, thin ? and pliable measuring no greater than 1-2 mm in thickness. Represented in one ? cassette. ? SR/lm MICROSCOPIC DESCRIPTION: ? Microscopic examination of the gallbladder reveals benign, non- neoplastic ? tissue. ??No pathologic type or degree of inflammation is noted but there is at ? least focal Rokitansky-Aschoff sinus formation. ??SR/lm ?? CONTINUED ?Page: ?? 1 Patient No: [id number] ? [facility] Patient Name: DALE BETANCUR ?[facility] Healthcare Age: 48 YRS ?: 1965 ?Sex:F ?[address] )[id number] ?? Adm Dt: 02/26/2014 ?[place] ??[id number] Created: 03/01/2014 ??0035 ?? Pt. Type: O ? Discharge Dt: 02/26/2014 ? Pathologists: Lesley Rowley MD Admit DrHumble Attend Dr: SHANNAN CANTU) ?S U R G I C A L ?P A T H O L O G Y ?R E P O R T ? Case #: ?[id number] ? Date: 02/26/14 DIAGNOSIS: ? GALLBLADDER, CHOLECYSTECTOMY: ? -NO PATHOLOGIC DIAGNOSIS ? [id number], [id number] ? Pathologist: Lesley Rowley M.D. ??Electronic signature ? SCR SCR/LM 02/27/14 ?? END OF CHART ? Page: ?? 2 us Historical Provider LAB BLOOD ORDERABLES Celia desai Result HISTORICAL RESULTS documented in this encounter Visit Diagnoses Diagnosis Chronic cholecystitis Myalgia and myositis Unspecified myalgia and myositis Irritable colon Migraine Migraine, unspecified, without mention of intractable migraine without mention of status migrainosus Personal history of allergy to narcotic agent History of allergy to other specified medicinal agents documented in this encounter Care Teams Vacuum Plastic Forming Machine Operator Relationship Specialty Start Date End Date Mendoza Parker MD PCP - General 03/05/13 06/02/15 documented as of this encounter
--- OUTSIDE RECORDS SUMMARY | 2024-11-19 04:55 | XMS_ITS | Encounter Summary ---
Author Organization [facility] Healthcare Address [address] [place] [address] Care Team Providers Care Heating And Ventilating Tender Name Role Phone Mendoza Parker MD Primary Care Provider +1- [phone] Encounter Details Date Type Department Care Team (Late st Contact Info) Description 04/10/2014 1:52 PM CDT - 05/09/2014 11:59 PM CDT Hospital Encounter [facility] Michelle Jade, [address] [address] Encounter for other physical therapy; Pain in joint, shoulder region Social History Tobacco Use Types Packs/Day Years Used Date Smoking Tobacco: Former Cigarettes Q uit: 11/21/2003 Alcohol Use Standard Drinks/Week Comments No 0 (1 standard drink = 0.6 oz pur e alcohol) Comments Unknown Sex and Gender Information Value Date Recorded Sex Assigned at Not on file 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
--- OUTSIDE RECORDS SUMMARY | 2024-11-19 04:55 | XMS_ITS | Encounter Summary ---
Author Organization [facility] Healthcare Address [address] [place] [address] Care Team Providers Care Internal Specialist Name Role Phone Mendoza Parker MD Primary Care Provider +1- [phone] Encounter Details Date Type Department Care Team (Late st Contact Info) Description 11/09/2012 2:45 PM SOUND PRINTER - 11/09/2012 11:59 PM SOUND PRINTER Hospital Encounter [facility] Michelle Jade DO [address] [address] Vitamin D deficiency Social History Tobacco Use Types Packs/Day Years Used Date Smoking Tobacco: Never Assessed Comments Unknown Sex and Gender Information Value Date Recorded Sex Assigned at Not on file Legal Sex Female 12:46 AM SOUND PRINTER Gender Identity Not on file Sexual Orientation [...] deficiency documented in this encounter Care Teams Internal Specialist Relationship Specialty Start Date End Date Mendoza Parker MD PCP - General 08/20/08 03/04/13 documented as of this encounter
--- OUTSIDE RECORDS SUMMARY | 2024-11-19 04:55 | XMS_ITS | Encounter Summary ---
Author Organization [facility] Facility Care Team Providers Care Photonics Engineer Name Role Phone Mendoza Parker MD Primary Care Provider [phone]- [phone] Encounter Details Date Type Department Care Team (Late st Contact Info) Description 06/18/2013 - 06/18/2013 11:59 PM CDT Hospital Encounter [facility] Urbano Whitney MD [address] [address] Vitamin D deficiency; Disorder of bone and cartilage Social History Tobacco Use Types Packs/Day Years Used Date Smoking Tobacco: Former Cigarettes Q uit: 11/21/2003 Alcohol Use Standard Drinks/Week Comments No 0 (1 standard drink = 0.6 oz pur e alcohol) Comments Unknown Sex and Gender Information Value Date Recorded Sex Assigned at Not on file Legal Sex Female 12:46 AM BEEF SPLITTER Gender Identity Not on file Sexual Orientation [...] Diagnosis Comments DISCHARGE LABORATORY CUMULATIVE REPORT Routine 06/29/2013 5:11 PM CDT PROTEIN ELECTROPHORESIS 06/22/2013 SERUM TISSUE TRANSGLUTAMINASE (TTG) AB Routine 06/18/2013 3:40 PM CDT SERUM THYROID-STIMULATING HORMONE (TSH) Routine 06/18/2013 3:40 PM CDT SERUM 25-HYDROXYCHOLECALCIFERO L (VITAMIN D) Routine 06/18/2013 3:40 PM CDT SERUM 1, 25-DIHYDROXYCHOLECALCIFE ROL (VITAMIN D) Routine 06/18/2013 3:40 PM CDT PLASMA PHOSPHORUS Routine 06/18/2013 3:4 0 PM CDT PLASMA PARATHYROID HORMONE (PTH), INTACT Routine 06/18/2013 3:40 PM CDT PLASMA COMPREHENSIVE METABOLIC PANEL Routine 06/18/2013 3:40 PM CDT SERUM TISSUE TRANSGLUTIMASE Routine 06/18/2013 10:40 AM CDT SERUM PROTEIN ELECTROPHORESIS Routine 06/18/2013 10:40 AM CDT SERUM IMMUNOFIXATION ELECTROPHORESIS Routine 06/18/2013 10:40 AM CDT SERUM ANTIGLIADIN AB Routine 06/18/2013 10:40 AM CDT documented in this encounter Results * Discharge Laboratory Cumulative Report (06/29/2013 5:11 PM CDT) 06/29/2013 5:11 PM CDT Narrative HISTORICAL RESULTS - 06/29/2013 5:11 PM CDT ? [facility] ? Department of Laboratories ?[facility] [address] ?[facility] ?[facility] [address] [place] C Patient Name: ? DALE BETANCUR J Med Rec Number: ?? [id number] Date of : ?1965 Gender/Age: ? Female 47 years Doctor: ? Urbano Delacruz M.D. Report Date/Time: 06/29/2013 17:11 ?* Abnormal ??C Critical ??f Footnote ??^ Corrected ??L Low ??H High ?i Interp Data ??@ Reference Lab ?Chart Type: Cumulative ? CHEMISTRY ? Standard Blood Chemistry ?06/18/2013 ?15:40:59 Test ?Units ?Reference Sodium ?141 ? mmol/L ?? 135-145 Plasma Potassium ?4.4 ? mmol/L ?? 3.3-4.9 Chloride ?104 ? mmol/L ?? 97-110 Total CO2 ? 30 ?mmol/L ?? 22-32 Anion Gap ? 7 ? mmol/L ?? 0-16 BUN ? 11 ?mg/dL ?8-25 Creatinine ?0.68 ?mg/dL ?0.60-1.10 Total Bilirubin ? 0.3 ? mg/dL ?0.3-1.1 Glucose ? 95 ?mg/dL ?65-199 Total Calcium ? 9.9 ? mg/dL ?8.6-10.3 Plasma Phosphorus ? 2.7 ? mg/dL ?2.3-4.3 Plasma Total Protein ??7.7 ? g/dL ? 6.5-8.5 Albumin ? 4.7 ? g/dL ? 3.6-5.0 Alkaline Phosphatase ??109 ? Units/L ??38-126 ALT ? 23 ?Units/L ??7-53 AST ? 22 ?Units/L ??11-47 ? Hormones ?06/18/2013 ?15:40:59 Test ?Units ? Reference TSH i ? 0.83 ?mcIUnit/mL ??0.35-5.50 Intact PTH ??65 ?pg/mL ? 14-72 06/18/2013 15:40:59 TSH: Interpretive Data Hyperthyroid: ??<0.1 mcIUnit/mL Hypothyroid: ??>12.0 mcIUnit/mL Current interpretive data was last revised on 01. ? CHEMISTRY ?Other Chemistry ?06/18/2013 ??06/18/2013 ?15:40:59 ?15:40:30 Test ?Units ??Reference 1,25 Dihydroxy Vit D ?86 ??Hf ?pg/mL ??18-78 25 Hydroxy Vitamin D ??30 ?ng/mL ??30-100 06/18/2013 15:40:30 ??1,25 Dihydroxy Vit D: Test Performed by: [facility] [address] [place] [address] Bedspread Folder: Brad Rosas III, M.D. ?IMMUNOLOGY ? 06/18/2013 ? 15:40:59 Test ? Units ??Reference Albumin Fraction ? 4.4 ? g/dL ?? 3.6-5.0 Alpha 1 Globulin ? 0.3 ? g/dL ?? 0.2-0.4 Alpha 2 Globulin ? 0.9 ? g/dL ?? 0.4-0.9 Beta 1 Glob ?0.4 ? g/dL ?? 0.3-0.6 Beta 2 Glob ?0.4 ? g/dL ?? 0.2-0.6 Gamma Globulin ? 1.1 ? g/dL ?? 0.6-1.7 SPEL Interp ?See Below Ifix Interp ?See Below Anti-Gliadin, IgA ?2.00 Anti-Gliadin, IgG i ??1.90 TTG-IgA Ab i ? 4.67 ?Units ??0.00-19.99 TTG-IgG Ab i ? 5.60 ?Units ??0.00-19.99 06/18/2013 ??15:40:59 ??SPEL Interp ? Possible abnormal restricted peak in alpha - 2 region. ? See immunofixation for further information. 06/18/2013 ??15:40:59 ??Ifix Interp ? No monoclonal protein detected. 06/18/2013 15:40:59 Anti-Gliadin, IgG: Interpretive Data Gliadin IgG or IgA: <20 units = Negative for Gliadin antibodies 20-30 units = Weak Positive for Gliadin antibodies >30 units = Moderate to Strong Positive for Gliadin antibodies Current interpretive data was last revised on 05. 06/18/2013 15:40:59 TTG-IgA Ab: Interpretive data Negative: <20.0 Units Weak Positive: 20.0-30.0 Units Moderate to Strong Positive: >30.0 Units Current interpretive data was last revised on 2010. ?IMMUNOLOGY 06/18/2013 15:40:59 TTG-IgG Ab: Interpretive Data Negative: <20.0 Units Weak Positive: 20.0-30.0 Units Moderate to Strong Positive: >30.0 Units Current interpretive data was last revised on 2010. 06/18/2013 15:40:59 ??Serum Prot El, reflex: Testing performed by: [place] [address] 06/18/2013 15:40:59 ??Ifix: Testing performed by: [place] [address] 06/18/2013 15:40:59 ??Anti-Gliadin Ab: Testing performed by: [place] [address] 06/18/2013 15:40:59 ??TTG-IgG Ab: Testing performed by: [place] [address] ? CANCELLED Collect Date ??Collect Time ??Order Name ? Cancel Reason 06/18/2013 ?15:40:00 ?Anti-Gliadin Antibodies ??Dup Cancel Historical Provider LAB BLOOD ORDERABLES Celia l Result Performing Organization Address [facility] de Phone Number HISTORICAL RESULTS * PROTEIN ELECTROPHORESIS (06/22/2013) Narrative 06/22/2013 Ordered by an unspecified provider. Historical Provider LAB BLOOD ORDERABLES Celia l Result * (ABNORMAL) Serum 1, 25-dihydroxycholecalciferol (vitamin D) (06/18/2013 3:40 PM CDT) 1-25-OH Vit D 86(H) 18 - 78 pg/ml HISTORICAL RESULTS Comment: Test Performed by: [place] [address] Bedspread Folder: Brad Rosas III, M.D. Serum 06/18/2013 3:40 PM CDT Urbano Delacruz MD LAB BLOOD ORDERABLES Final Resu lt Performing Organization Address [facility] Co de Phone Number HISTORICAL RESULTS * Serum thyroid-stimulating hormone (TSH) (06/18/2013 3:40 PM CDT) Pathologist [facility] TSH 0.83 0.35 - 5.50 mcIUnits/m l HISTORICAL RESULTS Comment: Interpretive Data Hyperthyroid: ??<0.1 mcIUnit/mL Hypothyroid: ??>12.0 mcIUnit/mL Current interpretive data was last revised on 01. Serum 06/18/2013 3:40 PM CDT Urbano Delacruz MD LAB BLOOD ORDERABLES Final Resu lt Performing Organization Address [facility] de Phone Number HISTORICAL RESULTS * Plasma comprehensive metabolic panel (06/18/2013 3:40 PM CDT) Pathologist [facility] Sodium 141 135 - 145 mmol/L HISTORICAL RESULTS K, pl 4.4 3.3 - 4.9 mmol/L HISTORICAL RESULTS Chloride 104 97 - 110 mmol/L HISTORICAL RESULTS CO2 30 22 - 32 mmol/L HISTORICAL RESULTS A. gap 7 0 - 16 mmol/L HISTORICAL RESULTS Glucose 95 65 - 199 mg/dl HISTORICAL RESULTS BUN 11 8 - 25 mg/dl HISTORICAL RESULTS Creatinine 0.68 0.60 - 1.10 mg/dl HISTORICAL RESULTS Calcium 9.9 8.6 - 10.3 mg/dl HISTORICAL RESULTS Protein, pl 7.7 6.5 - 8.5 g/dl HISTORICAL RESULTS Alb 4.7 3.6 - 5.0 g/dl HISTORICAL RESULTS Bilirubin 0.3 0.3 - 1.1 mg/dl HISTORICAL RESULTS Alk phos 109 38 - 126 Units/L HISTORICAL RESULTS AST 22 11 - 47 Units/L HISTORICAL RESULTS ALT 23 7 - 53 Units/L HISTORICAL RESULTS Plasma 06/18/2013 3:40 PM CDT Urbano Delacruz MD LAB BLOOD ORDERABLES Final Resu lt Performing Organization Address [facility] de Phone Number HISTORICAL RESULTS * Serum 25-hydroxycholecalciferol (vitamin D) (06/18/2013 3:40 PM CDT) Pathologist [facility] 25-OH Vit D 30 30 - 100 ng/ml HISTORICAL RESULTS Serum 06/18/2013 3:40 PM CDT us Urbano Delacruz MD LAB BLOOD ORDERABLES Final Resu lt Performing Organization Address [facility] Phone Number HISTORICAL RESULTS * Plasma phosphorus (06/18/2013 3:40 PM CDT) Pathologist [facility] Phosphorus, pl 2.7 2.3 - 4.3 mg/dl HISTORICAL RESULTS Plasma 06/18/2013 3:40 PM CDT us Urbano Delacruz MD LAB BLOOD ORDERABLES Final Resu lt Performing Organization Address [facility] Phone Number HISTORICAL RESULTS * Serum tissue transglutaminase (TTG) ab (06/18/2013 3:40 PM CDT) Pathologist [facility] TTG ab, IgA 4.67 0.00 - 19.99 units HISTORICAL RESULTS Comment: Interpretive data Negative: <20.0 Units Weak Positive: 20.0-30.0 Units Moderate to Strong Positive: >30.0 Units Current interpretive data was last revised on 2010. Serum 06/18/2013 3:40 PM CDT Result Minor Delacruz MD LAB BLOOD ORDERABLES Final Resu lt Performing Organization Address [facility] Phone Number HISTORICAL RESULTS * Plasma parathyroid hormone (PTH), intact (06/18/2013 3:40 PM CDT) Pathologist [facility] PTH, intact 65 14 - 72 pg/ml HISTORICAL RESULTS Plasma 06/18/2013 3:40 PM CDT Result [facility] us Urbano Delacruz MD LAB BLOOD ORDERABLES Final Resu lt Performing Organization Address [facility] de Phone Number HISTORICAL RESULTS * Serum immunofixation electrophoresis (06/18/2013 10:40 AM CDT) [facility] Immunofixation No monoclonal protein detected HISTORICAL RESULTS Serum 06/18/2013 10:4 0 AM CDT Narrative HISTORICAL RESULTS - 06/26/2013 9:28 AM CDT {Testing performed by: [place] [address]} Urbano Delacruz MD LAB BLOOD ORDERABLES Final Resu Performing Organization Address [facility] de Phone Number HISTORICAL RESULTS * Serum protein electrophoresis (06/18/2013 10:40 AM CDT) [facility] Albumin, sr 4.4 3.6 - 5.0 g/dl HISTORICAL RESULTS Alpha-1, sr 0.3 0.2 - 0.4 g/dl HISTORICAL RESULTS Alpha-2, sr 0.9 0.4 - 0.9 g/dl HISTORICAL RESULTS Beta-1, sr 0.4 0.3 - 0.6 g/dl HISTORICAL RESULTS Beta-2, sr 0.4 0.2 - 0.6 g/dl HISTORICAL RESULTS Gamma, sr 1.1 0.6 - 1.7 g/dl HISTORICAL RESULTS SPEL, interp Possible abnormal restricted peak in alpha - 2 region. See immunofixation for further information HISTORICAL RESULTS Serum 06/18/2013 10:4 0 AM CDT Narrative HISTORICAL RESULTS - 06/25/2013 7:40 AM CDT {Testing performed by: [place] [address]} Urbano Delacruz MD LAB BLOOD ORDERABLES Final Resu lt Performing Organization Address [facility] de Phone Number HISTORICAL RESULTS * Serum antigliadin ab (06/18/2013 10:40 AM CDT) [facility] Anti-gliadin, IgA 2.0 Arbitrary Units HISTORICAL RESULTS Anti-gliadin, IgG 1.9 Arbitrary Units HISTORICAL RESULTS Comment: Interpretive Data Gliadin IgG or IgA: <20 units = Negative for Gliadin antibodies 20-30 units = Weak Positive for Gliadin antibodies >30 units = Moderate to Strong Positive for Gliadin antibodies Current interpretive data was last revised on 05. Serum 06/18/2013 10:4 0 AM CDT Narrative HISTORICAL RESULTS - 06/29/2013 6:48 AM CDT {Testing performed by: [place] [address]} us Urbano Delacruz MD LAB BLOOD ORDERABLES Final Resu lt Performing Organization Address [facility] Co de Phone Number HISTORICAL RESULTS * Serum tissue transglutimase [TTG] ab IGG (06/18/2013 10:40 AM CDT) TTG ab, IgG 5.60 0.00 - 19.99 units HISTORICAL RESULTS Comment: Interpretive Data Negative: <20.0 Units Weak Positive: 20.0-30.0 Units Moderate to Strong Positive: >30.0 Units Current interpretive data was last revised on 2010. Serum 06/18/2013 10:4 0 AM CDT Narrative HISTORICAL RESULTS - 06/25/2013 9:11 AM CDT {Testing performed by: [place] [address]} us Urbano Delacruz MD LAB BLOOD ORDERABLES Final Resu lt Performing Organization Address [facility] de Phone Number HISTORICAL RESULTS documented in this encounter Visit Diagnoses Diagnosis Vitamin D deficiency Disorder of bone and cartilage Disorder of bone and cartilage, unspecified documented in this encounter Care Teams Photonics Engineer Relationship Specialty Start Date End Date Mendoza Parker MD PCP - General 03/05/13 06/02/15 documented as of this encounter
--- OUTSIDE RECORDS SUMMARY | 2024-11-19 04:55 | XMS_ITS | Encounter Summary ---
Author Organization [facility] Address [address] [place] [address] Care Team Providers Care Sales Office Assistant Name Role Phone Mendoza Parker MD Primary Care Provider [phone]- [phone] Encounter Details Date Type Department Care Team (Late st Contact Info) Description 11/25/2015 10:53 AM SHIPYARD PAINTER APPRENTICE - 11/25/2015 11:59 PM SHIPYARD PAINTER APPRENTICE Hospital Encounter [facility] Rhianna Greene MD [address] [place] [address] Encounter for screening mammogram for malignant neoplasm of breast; Pain in thoracic spine Social History Tobacco Use Types Packs/Day Years Used Date Smoking Tobacco: Former Cigarettes Q uit: 11/21/2003 Alcohol Use Standard Drinks/Week Comments No 0 (1 standard drink = 0.6 oz pur e alcohol) Comments Unknown Sex and Gender Information Value Date Recorded Sex Assigned at Not on file Legal Sex Female 12:46 AM SHIPYARD PAINTER APPRENTICE Gender Identity Not on file Sexual [...] Name Priority Date/Time Associated Diagnosis Comments NM BONE IMAGING WHOLE BODY Routine 11/25/2015 2:35 PM SHIPYARD PAINTER APPRENTICE DIGITAL MAMMOGRAPHY Routine 11/25/2015 1 1:33 AM SHIPYARD PAINTER APPRENTICE documented in this encounter Results * NM Bone Imaging Whole Body (11/25/2015 2:35 PM SHIPYARD PAINTER APPRENTICE) Anatomical Region Laterality Modality N/A Nuclear Medicine 11/25/2015 2:35 PM SHIPYARD PAINTER APPRENTICE Narrative 11/25/2015 6:19 PM SHIPYARD PAINTER APPRENTICE vm NM Bone Scan Whole Body ??Acc#: ??[id number] DATE OF EXAM: ??Nov ??2015 CLINICAL HISTORY: Thoracic back pain. ??By report outside thoracic MRI shows abnormal marrow edema within the posterior elements of T10 and T11. ??Patient is status post right ankle fracture 05/10/15 post-surgical repair. RESULT: 25.5 mCi Tc 99m MDP. Delayed whole body bone imaging was performed. There is extensive radiopharmaceutical activity within the distal shaft of the right tibia and fibula extending dorsally over the hindfoot region most attributable to the effect of the prior fracture and surgical repair. ??There is also focal intense activity in the region of the head of the fibula on the right. ??Correlation needs to be made with plain radiographs to explain the etiology of this activity. ??Given the history of preceding trauma it is certainly possible that this activity in the right fibular head could be related to a traumatic event as well. There is intense abnormal activity seen at the T10 level, greater on the left than the right side. ??There is a small area of nonspecific uptake at the level of the right 5th costovertebral junction. ??This potentially could represent degenerative change. No other abnormal activity within the thoracic or lumbar spine is seen. Mild activity at the 1st metatarsophalangeal joint on the right is probably degenerative in etiology. IMPRESSION: 1. INTENSE ACTIVITY IN THE DISTAL TIBIA AND DISTAL FIBULA ON THE RIGHT EXTENDING OVER THE DORSAL ASPECT OF THE HINDFOOT MOST ATTRIBUTABLE TO THE EFFECT OF PRIOR FRACTURE AND SURGICAL REPAIR. 2. FOCAL INTENSE ACTIVITY IN THE HEAD OF THE RIGHT FIBULA. ??GIVEN THE HISTORY OF PRECEDING TRAUMA TO THE RIGHT LOWER EXTREMITY THIS ACTIVITY IN THE FIBULAR HEAD COULD CERTAINLY REPRESENT A FRACTURE SITE. ??PLEASE CORRELATE WITH PLAIN XRAY. 3. INTENSE FOCAL ACTIVITY AT THE T10 ??LEVEL MORE INTENSE POSTERIORLY AND LEFT GREATER THAN RIGHT. ??THIS IS THE AREA WHERE MARROW EDEMA WAS DESCRIBED ON THE OUTSIDE THORACIC MRI. Interpreting Physician: ??LEN BALDWIN M.D. ??Read on: ??Nov ??2015 ??3:12P Transcribed by: ??osman ??On: Nov ??2015 ??5:28P Approved Electronically by: ??LEN BALDWIN M.D. ??on: ??Nov ??2015 ??6:19P Attending: ??RHIANNA HINOJOSA Requesting: ??DR RHIANNA HINOJOSA Requesting Fax: ??[phone] Attending Fax: ??-- Attending ID: ??[id number] Requesting ID: ??[id number] Report To 1 ID: ??[id number] Report To 1 Name: ??RHIANNA HINOJOSA Report To 1 FAX: ??-- NextGen Order #: Procedure Note ProviderKip MD - 03/22/2017 NM Bone Scan Whole Body Acc#: [id number] DATE OF EXAM: Nov 25 2015 CLINICAL HISTORY: Thoracic back pain. By report outside thoracic MRI shows abnormal marrowedema within the posterior elements of T10 and T11. Patient is statuspost right ankle fracture 05/10/15 post-surgical repair. RESULT: 25.5 mCi Tc 99m MDP. Delayed whole body bone imaging was performed. Thereis extensive radiopharmaceutical activity within the distal shaft of theright tibia and fibula extending dorsally over the hindfoot region mostattributable to the effect of the prior fracture and surgical repair.There is also focal intense activity in the region of the head of thefibula on the right. Correlation needs to be made with plain radiographsto explain the etiology of this activity. Given the history of precedingtrauma it is certainly possible that this activity in the right fibularhead could be related to a traumatic event as well. There is intenseabnormal activity seen at the T10 level, greater on the left than theright side. There is a small area of nonspecific uptake at the level ofthe right 5th costovertebral junction. This potentially could representdegenerative change. No other abnormal activity within the thoracic orlumbar spine is seen. Mild activity at the 1st metatarsophalangeal joint on the right is probably degenerative inetiology. IMPRESSION: 1. INTENSE ACTIVITY IN THE DISTAL TIBIA AND DISTAL FIBULA ON THE RIGHTEXTENDING OVER THE DORSAL ASPECT OF THE HINDFOOT MOST ATTRIBUTABLE TO THEEFFECT OF PRIOR FRACTURE AND SURGICAL REPAIR. 2. FOCAL INTENSE ACTIVITY IN THE HEAD OF THE RIGHT FIBULA. GIVEN THEHISTORY OF PRECEDING TRAUMA TO THE RIGHT LOWER EXTREMITY THIS ACTIVITY INTHE FIBULAR HEAD COULD CERTAINLY REPRESENT A FRACTURE SITE. PLEASECORRELATE WITH PLAIN XRAY. 3. INTENSE FOCAL ACTIVITY AT THE T10 LEVEL MORE INTENSE POSTERIORLY ANDLEFT GREATER THAN RIGHT. THIS IS THE AREA WHERE MARROW EDEMA WASDESCRIBED ON THE OUTSIDE THORACIC MRI. Interpreting Physician: LEN BALDWIN M.D. Read on: Nov 25 2015 3:12P Transcribed by: dereck On: Nov 25 2015 5:28P Approved Electronically by: LEN BALDWIN M.D. on: Nov 25 2015 6:19P Attending: RHIANNA HINOJOSA Requesting: DR RHIANNA HINOJOSA Requesting Attending Fax: -- Attending ID: [id number] Requesting ID: [id number] Report To 1 ID: [id number] Report To 1 Name: RHIANNA HINOJOSA Report To 1 FAX: -- NextGen Order #: us Historical Provider MD LAWSON NM PROCEDURES Final R esult * DIGITAL MAMMOGRAPHY (11/25/2015 11:33 AM SHIPYARD PAINTER APPRENTICE) Anatomical Region Laterality Modality Breast Mammography 11/25/2015 11:3 3 AM SHIPYARD PAINTER APPRENTICE Narrative 11/28/2015 11:13 AM SHIPYARD PAINTER APPRENTICE Mr/Td Screening Mamm Bi ??Acc#: ??[id number] DATE OF EXAM: ??Nov ??2015 ADDENDUM PLEASE SEE BELOW Performed by: CLINICAL HISTORY: Screen. RESULT: Two views of each breast were obtained. ??By report, a prior study was performed at [facility] and a release form has been [...] made to prior studies from ??07/19/14 from [facility]. No interval suspicious mass or calcification has developed to suggest mammographic evidence of malignancy. Annual followup recommended. BI-RADS CATEGORY 1 - NEGATIVE Interpreting Physician: ??LEN BALDWIN M.D. ??Read on: ??Nov ??2015 11:34A Transcribed by: ??mrr ??On: Nov ??2015 ??2:39P Approved Electronically by: ??LEN BALDWIN M.D. ??on: ??Nov ??2015 11:13A Attending: ??RHIANNA HINOJOSA Requesting: ??DR RHIANNA HINOJOSA Requesting Fax: ??[phone] Attending Fax: ??-- Attending ID: ??[id number] Requesting ID: ??[id number] Report To 1 ID: ??[id number] Report To 1 Name: ??RHIANNA HINOJOSA Report To 1 FAX: ??-- NextGen Order #: Procedure Note Provider, MD Kip - 03/22/2017 Mr/Td Screening Mamm Bi Acc#: [id number] DATE OF EXAM: Nov 25 2015 ADDENDUM PLEASE SEEBELOW Performed by: CLINICAL HISTORY: Screen. RESULT: Two views of each breast were obtained. By report, [facility] and a release form has been submittedto acquire the prior exam for review. There are scattered fibroglandulardensities bilaterally. No suspicious mass or calcification is seen tosuggest mammographic evidence of malignancy. There is a surgical markingring in the central upper anterior half of the right breast. Digitaltechnology was employed plus computer-aided detection software (R2) wasutilized in interpretation of these images. This facility utilizes [employer] system to notify patients of yearly mammograms. IMPRESSION: 1. NO DEFINITIVE MAMMOGRAPHIC EVIDENCE OF MALIGNANCY. 2. IF PRIOR STUDIES BECOME AVAILABLE, AN ADDENDUM WILL BE ISSUED OTHERWISEANNUAL FOLLOW-UP IS RECOMMENDED. BI-RADS CATEGORY 1 - NEGATIVE ADDENDUM: DR. BALDWIN/CRIST[place]11/27/15 Comparison is now made to prior studiesfrom 07/19/14 from [facility]. No interval suspicious mass orcalcification has developed to suggest mammographic evidence ofmalignancy. Annual followup recommended. BI-RADS CATEGORY 1 - NEGATIVE Interpreting Physician: LEN BALDWIN M.D. Read on: Nov 25 2015 11:34A Transcribed by: alex On: Nov 25 2015 2:39P Approved Electronically by: LEN BALDWIN M.D. on: Nov 28 2015 11:13A Attending: RHIANNA HINOJOSA Requesting: DR RHIANNA HINOJOSA Requesting Attending Fax: -- Attending ID: [id number] Requesting ID: [id number] Report To 1 ID: [id number] Report To 1 Name: RHIANNA HINOJOSA Report To 1 FAX: -- NextGen Order #: Historical Provider MD LAWSON MAMMO PROCEDURES Celia l Result documented in this encounter Visit Diagnoses Diagnosis Encounter for screening mammogram for malignant neoplasm of breast Pain in thoracic spine documented in this encounter Care Teams Sales Office Assistant Relationship Specialty Start Date End Date Mendoza Parker MD PCP - General 11/18/15 02/17/17 documented as of this encounter
--- OUTSIDE RECORDS SUMMARY | 2024-11-19 04:55 | XMS_ITS | Encounter Summary ---
Author Organization [facility] Healthcare Address [address] [place] [address] Care Team Providers Care Commutator Tester Name Role Phone Mendoza Parker MD Primary Care Provider [phone]- [phone] Encounter Details Date Type Department Care Team (Late st Contact Info) Description 09/24/2012 8:49 PM MECHANICAL ENGINEERING PROFESSOR - 09/24/2012 10:33 PM MECHANICAL ENGINEERING PROFESSOR Hospital Encounter [facility] Epi Olson MD [address] [place] [address] Other symptoms and signs involving emotional state; Other malaise and fatigue; Essential hypertension; Esophageal reflux; Diverticulitis of colon Social History Tobacco Use Types Packs/Day Years Used Date Smoking Tobacco: Never Assessed Comments Unknown Sex and Gender Information Value Date Recorded Sex Assigned at Not on file Legal Sex Female 12:46 AM MECHANICAL ENGINEERING PROFESSOR Gender Identity Not on file [...] of this encounter Visit Diagnoses Diagnosis Other symptoms and signs involving emotional state Other malaise and fatigue Essential hypertension Unspecified essential hypertension Esophageal reflux Diverticulitis of colon Diverticulitis of colon (without mention of hemorrhage) documented in this encounter Care Teams Commutator Tester Relationship Specialty Start Date End Date Mendoza Parker MD PCP - General 08/20/08 03/04/13 documented as of this encounter
--- OUTSIDE RECORDS SUMMARY | 2024-11-19 04:56 | XMS_ITS | Encounter Summary ---
Author Organization [facility] Healthcare Address [address] [place] [address] Care Team Providers Care Circuit Rider Name Role Phone Mendoza Parker MD Primary Care Provider +1- [phone] Encounter Details Date Type Department Care Team (Late st Contact Info) Description 03/17/2012 2:11 PM CDT - 03/17/2012 11:59 PM CDT Hospital Encounter [facility] CLINCON[facility] Michelle Jade DO [address] [address] Pain in joint; Arthropathy Social History Tobacco Use Types Packs/Day Years Used Date Smoking Tobacco: Never Assessed Comments Unknown Sex and Gender Information Value Date Recorded Sex Assigned at Not on file Legal Sex Female 12:46 AM ELECTRICAL RESEARCH ENGINEER Gender Identity Not on file Sexual Orientation Not on file documented as of this encounter Medications at Time of Discharge Medication Sig Dispense Quantity Refills Last Filled Start D ate End Date citalopram (CeleXA) 40 mg tablet daily. 01/31/2012 05/11/2018 documented as of this encounter Plan of Treatment Not on file documented as of this encounter Visit Diagnoses Diagnosis Pain in joint Arthropathy Unspecified arthropathy, site unspecified documented in this encounter Care Teams Circuit Rider Relationship Specialty Start Date End Date Mendoza Parker MD PCP - General 08/20/08 03/04/13 documented as of this encounter
--- OUTSIDE RECORDS SUMMARY | 2024-11-19 04:56 | XMS_ITS | Encounter Summary ---
Author Organization [facility] Address [address] [facility] [address] [place] [address] Care Team Providers Care Extracting Machine Operator Name Role Phone Mendoza Parker MD Primary Care Provider +1- [phone] Mendoza Parker MD Primary Care Provider +1- [phone] Mendoza Parker MD Primary Care Provider +1- [phone] Mendoza Parker MD Primary Care Provider +- [phone] Mendoza Parker MD Primary Care Provider +- [phone] Mendoza Parker MD Primary Care Provider +1- [phone] Margarito العراقي MD Primary Care Provider [phone] Raymond Vela MD Unavailable [phone] Encounter Details Date Type Department Care Team (Late st Contact Info) Description 02/03/2007 [place] Only [facility] [address] [place] [address] Scanning, Provider Social History Tobacco Use Types Packs/Day Years Used Date Smoking Tobacco: Never Assessed Comments Unknown Sex and Gender Information Value Date Recorded Sex Assigned at Not on file 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 Gender Identity Not on file Sexual Orientation Not on file documented as of this encounter Plan of Treatment Not on file documented as of this encounter Procedures Procedure Name Priority Date/Time Associated Diagnosis Comments GI - RESULT 02/03/2007 documented in this encounter Results * GI - RESULT (02/03/2007) Anatomical Region Laterality Modality Other us Provider Scanning Final Result documented in this encounter Visit Diagnoses Not on filedocumented in this encounter Additional Health Concerns Infection Onset Date Last Indicated Resolved Time COVID: Suspected 02/20/2024 02/20/2024 02/20/2024 2:54 PM CDT documented as of this encounter Care Teams Extracting Machine Operator Relationship Specialty Start Date End [...] [address] [place] [address] PCP - General Family Medicine 09/04/20 Raymond eVla MD [address] [place] [id number] Referring Physician Obstetrics and Gynecology 08/17/21 documented as of this encounter
--- OUTSIDE RECORDS SUMMARY | 2024-11-19 04:56 | XMS_ITS | Encounter Summary ---
Author Organization [facility] Healthcare Address [address] [place] [address] Care Team Providers Care Public Works Supervisor Name Role Phone Mendoza Parker MD Primary Care Provider [phone]- [phone] Encounter Details Date Type Department Care Team (Latest Contact Info) Description 01/06/2010 12:05 AM CORROSION CONTROL SPECIALIST - 01/06/2010 11:59 PM CORROSION CONTROL SPECIALIST Hospital Encounter [facility] [address] [place] [address] Discharge Disposition: Discharge to home or self care Social History Tobacco Use Types Packs/Day Years Used Date Smoking Tobacco: Never Assessed Comments Unknown Sex and Gender Information Value Date Recorded Sex Assigned at Not on file Legal Sex Female 12:46 AM CORROSION CONTROL SPECIALIST Gender Identity Not on file Sexual Orientation Not on file documented as of this encounter Discharge Disposition Disposition Code Departure Means Destination Discharge to home or self care documented in this encounter Plan of Treatment Not on file documented as of this encounter Procedures Procedure Name Priority Date/Time Associated Diagnosis Comments BREAST IMAGING OUTSIDE REFERENCE Routine 01/06/2010 12:05 AM CORROSION CONTROL SPECIALIST documented in this encounter Results * Breast Imaging Outside Reference (01/06/2010 12:05 AM CORROSION CONTROL SPECIALIST) Impressions RAD_MAMMO_BJ - 08/06/2021 11:37 AM CDT These images are for Reference purposes only and have not been reviewed by [facility] Radiology. ??There will be no report generated by a [facility] Radiologist. Narrative RAD_MAMMO_BJ - 08/06/2021 11:37 AM CDT EXAMINATION: ??Images For Reference Purposes Only us Nancy Gonzalez NETWORK SUPPORT ANALYST IMG MAMMO PROCEDURES Final R esult RAD_MAMMO_[facility] documented in this encounter Visit Diagnoses Not on filedocumented in this encounter Care Teams Public Works Supervisor Relationship Specialty Start Date End Date Mendoza Parker MD PCP - General 08/20/08 03/04/13 documented as of this encounter
--- OUTSIDE RECORDS SUMMARY | 2024-11-19 04:56 | XMS_ITS | Encounter Summary ---
Author Organization [facility] Healthcare Address [address] [place] [address] Care Team Providers Care Talent Partner Name Role Phone Mendoza Parker MD Primary Care Provider [phone]- [phone] Encounter Details Date Type Department Care Team (Late st Contact Info) Description 04/20/2011 9:52 PM CDT - 04/20/2011 11:50 PM CDT Hospital Encounter [facility]INCON[facility] Jaswinder Arellano MD [address] [facility] [address] [place] [address] Mendoza Parker MD [address] [address] Rash and other nonspecific skin eruption Social History Tobacco Use Types Packs/Day Years Used Date Smoking Tobacco: Never Assessed Comments Unknown Sex and Gender Information Value Date Recorded Sex Assigned at Not on file 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
--- OUTSIDE RECORDS SUMMARY | 2024-11-19 04:56 | XMS_ITS | Encounter Summary ---
Author Organization [facility] Healthcare Address [address] [place] [address] Care Team Providers Care Clipper Counters Name Role Phone Unavailable Primary Care Provider Unavailabl e Encounter Details Date Type Department Care Team (Late st Contact Info) Description 02/03/2007 12:01 AM CDT - 02/03/2007 11:59 PM CDT Hospital Encounter [facility] Polina Webber MD [address] [place] [address] [address] Social History Tobacco Use Types Packs/Day Years Used Date Smoking Tobacco: Never Assessed Comments Unknown Sex and Gender Information Value Date Recorded Sex Assigned at Not on file Legal Sex Female 12:46 AM MEDIA SERVICES SPECIALIST Gender Identity Not on file Sexual Orientation Not on file documented as of this encounter Plan of Treatment Not on file documented as of this encounter Visit Diagnoses Not on filedocumented in this encounter
--- OUTSIDE RECORDS SUMMARY | 2024-11-19 04:56 | XMS_ITS | Encounter Summary ---
Author Organization [facility] Healthcare Address [address] [place] [address] Care Team Providers Care Physical Optics Teacher Name Role Phone Mendoza Parker MD Primary Care Provider [phone]- [phone] Encounter Details Date Type Department Care Team (Late st Contact Info) Description 02/01/2012 8:16 AM CDT - 02/01/2012 11:59 PM CDT Hospital Encounter [facility] CLINCONPolina Heredia MD [address] [place] [address] Abdominal pain, left lower quadrant Social History Tobacco Use Types Packs/Day Years Used Date Smoking Tobacco: Never Assessed Comments Unknown Sex and Gender Information Value Date Recorded Sex Assigned at Not on file 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 01/31/2012 05/11/2018 documented as of this encounter Plan of Treatment Not on file documented as of this encounter Visit Diagnoses Diagnosis Abdominal pain, left lower quadrant documented in this encounter Care Teams Physical Optics Teacher Relationship Specialty Start Date End Date Mendoza Parker MD PCP - General 08/20/08 03/04/13 documented as of this encounter
--- OUTSIDE RECORDS SUMMARY | 2024-11-19 04:56 | XMS_ITS | Encounter Summary ---
Author Organization [facility] Care Team Providers Care Lead Simulation Modeling Engineer Name Role Phone Mendoza Parker MD Primary Care Provider +1- [phone] Encounter Details Date Type Department Care Team (Late st Contact Info) Description 01/06/2012 2:35 PM EDGER HAND - 01/06/2012 4:00 PM [facility] Hospital Encounter [facility] CLINCONV Michelle Jade DO [address] [place] [address] Disorder of sacrum Social History Tobacco Use Types Packs/Day Years Used Date Smoking Tobacco: Never Assessed Comments Unknown Sex and Gender Information Value Date Recorded Sex Assigned at Not on file Legal Sex Female 12:46 AM EDGER HAND Gender Identity Not on file Sexual Orientation Not on file documented as of this encounter Plan of Treatment Not on file documented as of this encounter Visit Diagnoses Diagnosis Disorder of sacrum Disorders of sacrum documented in this encounter Care Teams Lead Simulation Modeling Engineer Relationship Specialty Start Date End Date Mendoza Parker MD PCP - General 08/20/08 03/04/13 documented as of this encounter
--- OUTSIDE RECORDS SUMMARY | 2024-11-19 04:56 | XMS_ITS | Encounter Summary ---
Author Organization [facility] Healthcare Address [address] [place] [address] Care Team Providers Care Certified Respiratory Therapist Name Role Phone Mendoza Parker MD Primary Care Provider +1- [phone] Encounter Details Date Type Department Care Team (Latest Contact Info) Description 06/02/2009 - 06/02/2009 12:04 AM CDT Hospital Encounter [facility] [address] [place] [address] Discharge Disposition: Discharge to home or self care Social History Tobacco Use Types Packs/Day Years Used Date Smoking Tobacco: Never Assessed Comments Unknown Sex and Gender Information Value Date Recorded Sex Assigned at Not on file Legal Sex Female 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 Gender Identity Not on file Sexual Orientation Not on file documented as of this encounter Discharge Disposition Disposition Code Departure Means Destination Discharge to home or self care documented in this encounter Plan of Treatment Not on file documented as of this encounter Procedures Procedure Name Priority Date/Time Associated Diagnosis Comments BREAST IMAGING OUTSIDE REFERENCE Routine 06/02/2009 12:00 AM CDT documented in this encounter Results * Breast Imaging Outside Reference (06/02/2009 12:00 AM CDT) Impressions RAD_MAMMO_BJ - 08/06/2021 11:01 AM CDT These images are for Reference purposes only and have not been reviewed by [facility] Radiology. ??There will be no report generated by a [facility] Radiologist. Narrative RAD_MAMMO_BJ - 08/06/2021 11:01 AM CDT EXAMINATION: ??Images For Reference Purposes Only us Nancy Gonzalez CLAIM BENEFIT SPECIALIST IMG MAMMO PROCEDURES Final R esult RAD_MAMMO_[facility] documented in this encounter Visit Diagnoses Not on filedocumented in this encounter Care Teams Certified Respiratory Therapist Relationship Specialty Start Date End Date Mendoza Parker MD PCP - General 08/20/08 03/04/13 documented as of this encounter
--- OUTSIDE RECORDS SUMMARY | 2024-11-19 04:56 | XMS_ITS | Encounter Summary ---
Author Organization [facility] Healthcare Address [address] [place] [address] Care Team Providers Care Compliance Monitor Name Role Phone Mendoza Parker MD Primary Care Provider +1- [phone] Encounter Details Date Type Department Care Team (Late st Contact Info) Description 08/25/2012 2:44 PM CDT - 08/25/2012 11:59 PM CDT Hospital Encounter [facility] CLINCONV Michelle Jade DO [address], [place] [address] Vitamin D deficiency Social History Tobacco Use Types Packs/Day Years Used Date Smoking Tobacco: Never Assessed Comments Unknown Sex and Gender Information Value Date Recorded Sex Assigned at Not on file 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
--- OUTSIDE RECORDS SUMMARY | 2024-11-19 04:56 | XMS_ITS | Encounter Summary ---
Author Organization [facility] Healthcare Address [address] [place] [address] Care Team Providers Care Advanced Developer Name Role Phone Mendoza Parker MD Primary Care Provider +1- [phone] Encounter Details Date Type Department Care Team (Late st Contact Info) Description 02/20/2009 5:27 AM CDT - 02/20/2009 7:51 AM CDT Hospital Encounter [facility] Jacob Bueno MD [address] [facility] [address] [place] [address] Mendoza Parker MD [address] [place] [address] Headache; Essential hypertension; Viral infection in conditions classified elsewhere and of unspecified site Social History Tobacco Use Types Packs/Day Years Used Date Smoking Tobacco: Never Assessed Comments Unknown Sex and Gender Information Value Date Recorded Sex Assigned at Not on file Legal Sex Female 12:46 AM SENIOR CONTROLS ANALYST Gender Identity Not on file Sexual Orientation Not on file documented as of this encounter Plan of Treatment Not on file documented as of this encounter Visit Diagnoses Diagnosis Headache Essential hypertension Unspecified essential hypertension Viral infection in conditions classified elsewhere and of unspecified site documented in this encounter Care Teams Advanced Developer Relationship Specialty Start Date End Date Mendoza Parker MD PCP - General 08/20/08 03/04/13 documented as of this encounter
--- OUTSIDE RECORDS SUMMARY | 2024-11-19 04:56 | XMS_ITS | Encounter Summary ---
Author Organization [facility] Facility Care Team Providers Care Looper Operator Name Role Phone Mendoza Parker MD Primary Care Provider +1- [phone] Encounter Details Date Type Department Care Team (Latest Contact Info) Description 10/23/2009 5:37 AM OPERATIONAL RISK CONSULTANT - 10/25/2009 8:42 PM [facility] Hospital Encounter [facility] CLINCONV JustinaDinah Leiomyoma of uterus; Anemia; Essential hypertension Social History Tobacco Use Types Packs/Day Years Used Date Smoking Tobacco: Never Assessed Comments Unknown Sex and Gender Information Value Date Recorded Sex Assigned at Not on file Legal Sex Female 12:46 AM OPERATIONAL RISK CONSULTANT Gender Identity Not on file Sexual Orientation Not on file documented as of this encounter Plan of Treatment Not on file documented as of this encounter Visit Diagnoses Diagnosis Leiomyoma of uterus Leiomyoma of uterus, unspecified Anemia Unspecified anemia Essential hypertension Unspecified essential hypertension documented in this encounter Care Teams Looper Operator Relationship Specialty Start Date End Date Mendoza Parker MD PCP - General 08/20/08 03/04/13 documented as of this encounter
--- OUTSIDE RECORDS SUMMARY | 2024-11-19 04:56 | XMS_ITS | Encounter Summary ---
Author Organization [facility] Healthcare Address [address] [place] [address] Care Team Providers Care Scale Clerk Name Role Phone Unavailable Primary Care Provider Unavailabl e Encounter Details Date Type Department Care Team (Late st Contact Info) Description 06/30/2007 12:01 AM CDT - 06/30/2007 11:59 PM CDT Hospital Encounter [facility] Mendoza Chavarria MD [address] [place] [address] Social History Tobacco Use Types Packs/Day Years Used Date Smoking Tobacco: Never Assessed Comments Unknown Sex and Gender Information Value Date Recorded Sex Assigned at Not on file Legal Sex Female 12:46 AM 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
--- OUTSIDE RECORDS SUMMARY | 2024-11-19 04:56 | XMS_ITS | Encounter Summary ---
Author Organization [facility] Healthcare Address [address] [place] [address] Care Team Providers Care Taxation Consultant Name Role Phone Mendoza Parker MD Primary Care Provider +1- [phone] Encounter Details Date Type Department Care Team (Latest Contact Info) Description 01/06/2010 - 01/06/2010 12:04 AM BOTTLE BLOWER Hospital Encounter [facility] [address] [place] [address] Discharge Disposition: Discharge to home or self care Social History Tobacco Use Types Packs/Day Years Used Date Smoking Tobacco: Never Assessed Comments Unknown Sex and Gender Information Value Date Recorded Sex Assigned at Not on file Legal Sex Female 12:46 AM BOTTLE BLOWER Gender Identity Not on file Sexual Orientation Not on file documented as of this encounter Discharge Disposition Disposition Code Departure Means Destination Discharge to home or self care documented in this encounter Plan of Treatment Not on file documented as of this encounter Procedures Procedure Name Priority Date/Time Associated Diagnosis Comments BREAST IMAGING OUTSIDE REFERENCE Routine 01/06/2010 12:00 AM BOTTLE BLOWER documented in this encounter Results * Breast Imaging Outside Reference (01/06/2010 12:00 AM BOTTLE BLOWER) Impressions RAD_MAMMO_[facility]J - 08/06/2021 11:05 AM CDT These images are for Reference purposes only and have not been reviewed by [facility] Radiology. ??There will be no report generated by a [facility] Radiologist. Narrative RAD_MAMMO_BJ - 08/06/2021 11:05 AM CDT EXAMINATION: ??Images For Reference Purposes Only us Nancy Gonzalez SALES TEAM MANAGER IMG MAMMO PROCEDURES Final R esult RAD_MAMMO_[facility] documented in this encounter Visit Diagnoses Not on filedocumented in this encounter Care Teams Taxation Consultant Relationship Specialty Start Date End Date Mendoza Parker MD PCP - General 08/20/08 03/04/13 documented as of this encounter
--- OUTSIDE RECORDS SUMMARY | 2024-11-19 04:56 | XMS_ITS | Encounter Summary ---
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
--- OUTSIDE RECORDS SUMMARY | 2024-11-19 04:56 | XMS_ITS | Encounter Summary ---
Author Organization [facility] Healthcare Address [address] [place] [address] Care Team Providers Care Solderer Assembler Name Role Phone Mendoza Parker MD Primary Care Provider +1- [phone] Encounter Details Date Type Department Care Team (Latest Contact Info) Description 07/01/2009 - 07/01/2009 12:04 AM CDT Hospital Encounter [facility] [address] [place] [address] Discharge Disposition: Discharge to home or self care Social History Tobacco Use Types Packs/Day Years Used Date Smoking Tobacco: Never Assessed Comments Unknown Sex and Gender Information Value Date Recorded Sex Assigned at Not on file 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 Sex Female 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 Gender Identity Not on file Sexual Orientation Not on file documented as of this encounter Discharge Disposition Disposition Code Departure Means Destination Discharge to home or self care documented in this encounter Plan of Treatment Not on file documented as of this encounter Procedures Procedure Name Priority Date/Time Associated Diagnosis Comments BREAST IMAGING OUTSIDE REFERENCE Routine 07/01/2009 12:00 AM CDT documented in this encounter Results * Breast Imaging Outside Reference (07/01/2009 12:00 AM CDT) Impressions RAD_MAMMO_BJ - 08/06/2021 11:02 AM CDT These images are for Reference purposes only and have not been reviewed by [facility] Radiology. ??There will be no report generated by a [facility] Radiologist. Narrative RAD_MAMMO_BJ - 08/06/2021 11:02 AM CDT EXAMINATION: ??Images For Reference Purposes Only us Nancy Gonzalez AMPOULE INSPECTOR IMG MAMMO PROCEDURES Final R esult RAD_MAMMO_[facility] documented in this encounter Visit Diagnoses Not on filedocumented in this encounter Care Teams Solderer Assembler Relationship Specialty Start Date End Date Mendoza Parker MD PCP - General 08/20/08 03/04/13 documented as of this encounter
--- OUTSIDE RECORDS SUMMARY | 2024-11-19 04:56 | XMS_ITS | Encounter Summary ---
Author Organization [facility] Healthcare Address [address] [place] [address] Care Team Providers Care Second Cutter Name Role Phone Mendoza Parker MD Primary Care Provider +1- [phone] Encounter Details Date Type Department Care Team (Latest Contact Info) Description 07/01/2009 12:05 AM CDT - 07/01/2009 11:59 PM CDT Hospital Encounter [facility] [place] [facility]) [address] [place] [address] Discharge Disposition: Discharge to home or self care Social History Tobacco Use Types Packs/Day Years Used Date Smoking Tobacco: Never Assessed Comments Unknown Sex and Gender Information Value Date Recorded Sex Assigned at Not on file 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 Gender Identity Not on file Sexual Orientation Not on file documented as of this encounter Discharge Disposition Disposition Code Departure Means Destination Discharge to home or self care documented in this encounter Plan of Treatment Not on file documented as of this encounter Procedures Procedure Name Priority Date/Time Associated Diagnosis Comments BREAST IMAGING OUTSIDE REFERENCE Routine 07/01/2009 12:05 AM CDT documented in this encounter Results * Breast Imaging Outside Reference (07/01/2009 12:05 AM CDT) Impressions RAD_MAMMO_[facility] - 08/06/2021 11:38 AM CDT These images are for Reference purposes only and have not been reviewed by [facility]iology. ??There will be no report generated by a [facility] Radiologist. Narrative RAD_MAMMO_[facility] - 08/06/2021 11:38 AM CDT EXAMINATION: ??Images For Reference Purposes Only Nancy Gonzalez EXERCISE EQUIPMENT SPECIALIST IMG MAMMO PROCEDURES Final R esult RAD_MAMMO_[facility]J documented in this encounter Visit Diagnoses Not on filedocumented in this encounter Care Teams Second Cutter Relationship Specialty Start Date End Date Mendoza Parker MD PCP - General 08/20/08 03/04/13 documented as of this encounter
--- OUTSIDE RECORDS SUMMARY | 2024-11-19 04:56 | XMS_ITS | Encounter Summary ---
Author Organization [facility] Facility Care Team Providers Care Major Gifts Manager Name Role Phone Mendoza Parker MD Primary Care Provider +1- [phone] Encounter Details Date Type Department Care Team (Late st Contact Info) Description 06/24/2009 10:20 AM CDT - 06/24/2009 11:59 PM CDT Hospital Encounter [facility] Symptom associated with female genital organs Social History Tobacco Use Types Packs/Day Years Used Date Smoking Tobacco: Never Assessed Comments Unknown Sex and Gender Information Value Date Recorded Sex Assigned at Not on file Legal Sex Female 12:46 AM GRAPHIC EDITOR Gender Identity Not on file Sexual Orientation Not on file documented as of this encounter Plan of Treatment Not on file documented as of this encounter Visit Diagnoses Diagnosis Symptom associated with female genital organs documented in this encounter Care Teams Major Gifts Manager Relationship Specialty Start Date End Date Mendoza Parker MD PCP - General 08/20/08 03/04/13 documented as of this encounter
--- OUTSIDE RECORDS SUMMARY | 2024-11-19 04:56 | XMS_ITS | Encounter Summary ---
Author Organization [facility] Medical Group Address [address] [facility] [address] [place] [address] Care Team Providers Care Sensitometrist Name Role Phone Mendoza Parker MD Primary Care Provider +1- [phone] Mendoza Parker MD Primary Care Provider +- [phone] Mendoza Parker MD Primary Care Provider +- [phone] Mendoza Parker MD Primary Care Provider +- [phone] Mendoza Parker MD Primary Care Provider +- [phone] Mendoza Parker MD Primary Care Provider +1- [phone] Margarito العراقي MD Primary Care Provider +[phone] Raymond Vela MD Unavailable Encounter Details Date Type Department Care Team (Late st Contact Info) Description 01/31/2012 Orders Only [facility] [place] [facility] [address] [place] [address] Scanning, Provider Social History Tobacco Use Types Packs/Day Years Used Date Smoking Tobacco: Never Assessed Comments Unknown Sex and Gender Information Value Date Recorded Sex Assigned at Not on file 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 Gender Identity Not on file Sexual Orientation Not on file documented as of this encounter Plan of Treatment Not on file documented as of this encounter Procedures Procedure Name Priority Date/Time Associated Diagnosis Comments SCAN - LABS 01/31/2012 documented in this encounter Results * SCAN - LABS (01/31/2012) us Provider Scanning Final Result documented in this encounter Visit Diagnoses Not on filedocumented in this encounter Additional Health Concerns Infection Onset Date Last Indicated Resolved Time COVID: Suspected 02/20/2024 02/20/2024 02/20/2024 2:54 PM CDT documented as of this encounter Care Teams Sensitometrist Relationship Specialty Start Date End Date Mendoza [...] [address] [place] [address] Referring Physician Obstetrics and Gynecology 08/17/21 documented as of this encounter
--- OUTSIDE RECORDS SUMMARY | 2024-11-19 04:56 | XMS_ITS | Encounter Summary ---
Author Organization [facility] Healthcare Address [address] [place] [address] Care Team Providers Care Rn Rehabilitation Name Role Phone Mendoza Parker MD Primary Care Provider +1- [phone] Encounter Details Date Type Department Care Team (Late st Contact Info) Description 03/17/2012 9:14 AM CDT - 03/17/2012 11:59 PM CDT Hospital Encounter [facility] Michelle Jade DO [address] [address] Social History Tobacco Use Types Packs/Day Years Used Date Smoking Tobacco: Never Assessed Comments Unknown Sex and Gender Information Value Date Recorded Sex Assigned at Not on file 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
--- OUTSIDE RECORDS SUMMARY | 2024-11-19 04:56 | XMS_ITS | Encounter Summary ---
Author Organization [facility] Healthcare Address [address] [place] [address] Care Team Providers Care Hand Miter Operator Name Role Phone Mendoza Parker MD Primary Care Provider +1- [phone] Encounter Details Date Type Department Care Team (Latest Contact Info) Description 06/02/2009 12:05 AM CDT - 06/02/2009 11:59 PM CDT Hospital Encounter [facility]iology [place] [facility] ([facility]) [address] [place] [address] Discharge Disposition: Discharge to home or self care Social History Tobacco Use Types Packs/Day Years Used Date Smoking Tobacco: Never Assessed Comments Unknown Sex and Gender Information Value Date Recorded Sex Assigned at Not on file 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 Gender Identity Not on file Sexual Orientation Not on file documented as of this encounter Discharge Disposition Disposition Code Departure Means Destination Discharge to home or self care documented in this encounter Plan of Treatment Not on file documented as of this encounter Procedures Procedure Name Priority Date/Time Associated Diagnosis Comments BREAST IMAGING OUTSIDE REFERENCE Routine 06/02/2009 12:05 AM CDT documented in this encounter Results * Breast Imaging Outside Reference (06/02/2009 12:05 AM CDT) Impressions RAD_MAMMO_[facility] - 08/06/2021 11:38 AM CDT These images are for Reference purposes only and have not been reviewed by [facility] Radiology. ??There will be no report generated by a [facility] Radiologist. Narrative RAD_MAMMO_[facility] - 08/06/2021 11:38 AM CDT EXAMINATION: ??Images For Reference Purposes Only Nancy Gonzalez ENZYME CHEMIST IMG MAMMO PROCEDURES Final R esult RAD_MAMMO_[facility]J documented in this encounter Visit Diagnoses Not on filedocumented in this encounter Care Teams Hand Miter Operator Relationship Specialty Start Date End Date Mendoza Parker MD PCP - General 08/20/08 03/04/13 documented as of this encounter
--- OUTSIDE RECORDS SUMMARY | 2024-11-19 04:56 | XMS_ITS | Encounter Summary ---
Author Organization [facility] Facility Care Team Providers Care Vice President Of Customer Service Name Role Phone Mendoza Parker MD Primary Care Provider +1- [phone] Encounter Details Date Type Department Care Team (Late st Contact Info) Description 10/13/2009 - 11/20/2009 11:59 PM GLOVE BOARDER Hospital Encounter [facility] CL[facility]CON[facility] Dinah Horn Social History Tobacco Use Types Packs/Day Years Used Date Smoking Tobacco: Never Assessed Comments Unknown Sex and Gender Information Value Date Recorded Sex Assigned at Not on file Legal Sex Female 12:46 AM GLOVE BOARDER Gender Identity Not on file Sexual Orientation Not on file documented as of this encounter Plan of Treatment Not on file documented as of this encounter Visit Diagnoses Not on filedocumented in this encounter Care Teams Vice President Of Customer Service Relationship Specialty Start Date End Date Mendoza Parker MD PCP - General 08/20/08 03/04/13 documented as of this encounter
--- OUTSIDE RECORDS SUMMARY | 2024-11-19 04:56 | XMS_ITS | Encounter Summary ---
Author Organization [facility] Facility Care Team Providers Care Hatch Boss Name Role Phone Mendoza Parker MD Primary Care Provider +1- [phone] Encounter Details Date Type Department Care Team (Late st Contact Info) Description 10/14/2009 8:33 AM PULPWOOD CUTTER - 10/14/2009 4:00 PM [facility] Hospital Encounter [facility] CLINCON[facility] Dinah Horn Other specified pre-operative examination; Symptom associated with female genital organs; Essential hypertension; Endometriosis; Obesity Social History Tobacco Use Types Packs/Day Years Used Date Smoking Tobacco: Never Assessed Comments Unknown Sex and Gender Information Value Date Recorded Sex Assigned at Not on file Legal Sex Female 12:46 AM PULPWOOD CUTTER Gender Identity Not on file Sexual Orientation Not on file documented as of this encounter Plan of Treatment Not on file documented as of this encounter Visit Diagnoses Diagnosis Other specified pre-operative examination Symptom associated with female genital organs Essential hypertension Unspecified essential hypertension Endometriosis Endometriosis, site unspecified Obesity Obesity, unspecified documented in this encounter Care Teams Hatch Boss Relationship Specialty Start Date End Date Mendoza Parker MD PCP - General 08/20/08 03/04/13 documented as of this encounter
--- OUTSIDE RECORDS SUMMARY | 2024-11-19 04:56 | XMS_ITS | Encounter Summary ---
Author Organization [facility] Healthcare Address [address] [place] [address] Care Team Providers Care Molder Bench Name Role Phone Mendoza Parker MD Primary Care Provider +1- [phone] Encounter Details Date Type Department Care Team (Late st Contact Info) Description 04/06/2012 2:29 PM CDT - 04/06/2012 11:59 PM CDT Hospital Encounter [facility] CLINCONPolina Heredia MD [address] [place] [address] Other malaise and fatigue; Dyspepsia and other specified disorders of function of stomach Social History Tobacco Use Types Packs/Day Years Used Date Smoking Tobacco: Never Assessed Comments Unknown Sex and Gender Information Value Date Recorded Sex Assigned at Not on file Legal Sex Female 12:46 AM RN TRIAGE Gender Identity Not on file Sexual Orientation Not on file documented as of this encounter Medications at Time of Discharge Medication Sig Dispense Quantity Refills Last Filled Start D ate End Date citalopram (CeleXA) 40 mg tablet daily. 01/31/2012 05/11/2018 documented as of this encounter Plan of Treatment Not on file documented as of this encounter Visit Diagnoses Diagnosis Other malaise and fatigue Dyspepsia and other specified disorders of function of stomach documented in this encounter Care Teams Molder Bench Relationship Specialty Start Date End Date Mendoza Parker MD PCP - General 08/20/08 03/04/13 documented as of this encounter
--- OUTSIDE RECORDS SUMMARY | 2024-11-19 04:56 | XMS_ITS | Encounter Summary ---
Author Organization [facility] Healthcare Facility Care Team Providers Care Blend Technician Name Role Phone Mendoza Parker MD Primary Care Provider +1- [phone] Encounter Details Date Type Department Care Team (Late st Contact Info) Description 09/30/2011 9:11 AM COMPUTER PUBLISHER - 09/30/2011 4:00 PM [facility] Hospital Encounter [facility] CL[facility] Michelle Jade, [address] [place] [address] Symptom associated with female genital organs; Low back pain Social History Tobacco Use Types Packs/Day Years Used Date Smoking Tobacco: Never Assessed Comments Unknown Sex and Gender Information Value Date Recorded Sex Assigned at Not on file Legal Sex Female 12:46 AM COMPUTER PUBLISHER Gender Identity Not on file Sexual Orientation Not on file documented as of this encounter Plan of Treatment Not on file documented as of this encounter Visit Diagnoses Diagnosis Symptom associated with female genital organs Low back pain Lumbago documented in this encounter Care Teams Blend Technician Relationship Specialty Start Date End Date Mendoza Parker MD PCP - General 08/20/08 03/04/13 documented as of this encounter
--- OUTSIDE RECORDS SUMMARY | 2024-11-19 04:56 | XMS_ITS | Encounter Summary ---
Author Organization [facility] Medical Group Address [address] [facility] [address] [place] [address] Care Team Providers Care Transmission Tester Name Role Phone Mendoza Parker MD Primary Care Provider +1- [phone] Mendoza Parker MD Primary Care Provider +- [phone] Mendoza Parker MD Primary Care Provider +- [phone] Mendoza Parker MD Primary Care Provider +- [phone] Mendoza Parker MD Primary Care Provider +- [phone] Mendoza Parker MD Primary Care Provider +1- [phone] Margarito العراقي MD Primary Care Provider +[phone] Raymond Vela MD Unavailable [phone] Encounter Details Date Type Department Care Team (Late st Contact Info) Description 02/01/2012 Orders Only [facility] Health Information Management [address] [place] [address] Scanning, Provider Social History Tobacco Use Types Packs/Day Years Used Date Smoking Tobacco: Never Assessed Comments Unknown Sex and Gender Information Value Date Recorded Sex Assigned at Not on file 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 Sex Female 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 Gender Identity Not on file Sexual Orientation Not on file documented as of this encounter Plan of Treatment Not on file documented as of this encounter Procedures Procedure Name Priority Date/Time Associated Diagnosis Comments SCAN - RADIOLOGY/IMAGING 02/01/2012 documented in this encounter Results * SCAN - RADIOLOGY/IMAGING (02/01/2012) Anatomical Region Laterality Modality Other us Provider Scanning Final Result documented in this encounter Visit Diagnoses Not on filedocumented in this encounter Additional Health Concerns Infection Onset Date Last Indicated Resolved Time COVID: Suspected 02/20/2024 02/20/2024 02/20/2024 2:54 PM CDT documented as of this encounter Care Teams Transmission Tester Relationship Specialty Start Date End Date [...] [address] [place] [address] Referring Physician Obstetrics and Gynecology 08/17/21 documented as of this encounter
--- OUTSIDE RECORDS SUMMARY | 2024-11-19 04:56 | XMS_ITS | Encounter Summary ---
Author Organization [facility] Medical Group Address [address] [facility] [address] [place] [address] Care Team Providers Care Pneudraulic Systems Mechanic Name Role Phone Mendoza Parker MD Primary Care Provider +1- [phone] Mendoza Parker MD Primary Care Provider +- [phone] Mendoza Pakrer MD Primary Care Provider +1- [phone] Mendoza Parker MD Primary Care Provider +- [phone] Mendoza Parker MD Primary Care Provider +- [phone] Mendoza Parker MD Primary Care Provider +1- [phone] Margarito العراقي MD Primary Care Provider [phone] Raymond Vela MD Unavailable [phone] Encounter Details Date Type Department Care Team (Late st Contact Info) Description 02/16/2006 Orders Only [facility] Health Information Management [address] [place] [address] Scanning, Provider Social History Tobacco Use Types Packs/Day Years Used Date Smoking Tobacco: Never Assessed Comments Unknown Sex and Gender Information Value Date Recorded Sex Assigned at Not on file 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 Sex Female 12:46 AM WARRANTY ADMINISTRATOR Gender Identity Not on file Sexual Orientation Not on file documented as of this encounter Plan of Treatment Not on file documented as of this encounter Procedures Procedure Name Priority Date/Time Associated Diagnosis Comments SCAN - RADIOLOGY/IMAGING 02/16/2006 documented in this encounter Results * SCAN - RADIOLOGY/IMAGING (02/16/2006) Anatomical Region Laterality Modality Other us Provider Scanning Final Result documented in this encounter Visit Diagnoses Not on filedocumented in this encounter Additional Health Concerns Infection Onset Date Last Indicated Resolved Time COVID: Suspected 02/20/2024 02/20/2024 02/20/2024 2:54 PM CDT documented as of this encounter Care Teams Pneudraulic Systems Mechanic Relationship Specialty Start Date End Date Mendoza Parker MD PCP - General 02/18/17 06/12/20 Mendoza Parekr MD PCP - General 11/18/15 02/17/17 Mendoza [...] [address] [place] [address] Referring Physician Obstetrics and Gynecology 08/17/21 documented as of this encounter
--- OUTSIDE RECORDS SUMMARY | 2024-11-19 05:09 | XMS_ITS | Continuity of Care Document ---
Author Organization [facility] Address [address] [place] [address] [place] [address] Phone Care Team Providers Care Pipelines Laborer Name Role Phone Margarito العراقي MD Unavailable Unavailable Allergies, Adverse Reactions, Alerts Substance Reaction Status Criticality metronidazole Active No Information CIPROFLOXACIN HCL Active No Informa tion ciprofloxacin Active No Information Medications Medication Instructions Dosage Effective Dates (start - stop) Status Comments Macrobid 100 mg capsule take 1 capsule b y oral route every 12 hours with food 100 MG - Active Linzess 145 mcg capsule take 1 capsule b y oral route every day on an empty stomach at least 30 minutes before 1st meal of the day 145 MCG - Active Wellbutrin SR 150 mg tablet, 12 hr sustained-release take 1 tablet by oral route 2 times every day 150 MG - Active ropinirole 2 mg tablet take 1 tablet by oral route every bedtime 2 MG - Active hydrochlorothiazide 25 mg tablet take 1 tablet by oral route every day 25 MG - Active Lipitor 20 mg tablet take 1 Tablet by oral route every day 20 MG - Active Vitamin D2 1,250 mcg (50,000 unit) capsule take one capsule orally once per week - Active Lyrica 75 mg capsule take 1 capsule by oral route 2 times every day 75 MG - Active Cymbalta 30 mg capsule,delayed release take 1 capsule by oral route every day 30 MG - Active hydrocodone 5 mg-acetaminophen 325 mg tablet take 1 tablet by oral route every 6 hours as needed for pain as needed 1.00 tablet May-05-2021 - Active PRN for pain, avoid driving or operate machines cyclobenzaprine 10 mg tablet take 1 tablet by oral route 3 times every day as needed 10 MG - Active PRN for pain, avoid driving or operate machines Aspir-81 mg tablet,delayed release take 1 tablet by oral route every day - Active metoprolol tartrate 25 mg tablet take 1 tablet by oral route 2 times every day 25 MG - Active irbesartan 150 mg tablet take 1 tablet b y oral route every day 150 MG - Active Ambien 10 mg tablet take 1 tablet by oral route every day at bedtime 10 MG - Active Procedures Procedure Date OFFICE/OUTPATIENT VISIT, EST OFFICE/OUTPATIENT VISIT, EST OFFICE/OUTPATIENT VISIT, EST PREV VISIT, EST, AGE 40-64 OFFICE/OUTPATIENT VISIT, EST OFFICE/OUTPATIENT VISIT, EST OFFICE/OUTPATIENT VISIT, EST PREV VISIT, EST, AGE 40-64 OFFICE/OUTPATIENT VISIT, EST OFFICE/OUTPATIENT VISIT, EST OFFICE/OUTPATIENT VISIT, EST PREV VISIT, EST, AGE 40-64 OFFICE/OUTPATIENT VISIT, EST OFFICE/OUTPATIENT VISIT, EST OFFICE/OUTPATIENT VISIT, EST OFFICE/OUTPATIENT VISIT, EST OFFICE/OUTPATIENT VISIT, EST PREV VISIT, EST, AGE 40-64 OFFICE/OUTPATIENT VISIT, EST OFFICE/OUTPATIENT VISIT, EST OFFICE/OUTPATIENT VISIT, EST OFFICE/OUTPATIENT VISIT, EST OFFICE/OUTPATIENT VISIT, EST OFFICE/OUTPATIENT VISIT, EST OFFICE/OUTPATIENT VISIT, EST OFFICE/OUTPATIENT VISIT, EST OFFICE/OUTPATIENT VISIT, EST PREV VISIT, NEW, AGE 40-64 Advance Directives Directive Yes / No Effective Date File Name No Information Encounters Encounter Description Practice Location Reason(s) For Visit Diagnoses Date Provider Providers Copied on Encounter OFFICE/OUTPA TIENT VISIT, EST [facility], [address], [place], [address], tel:[phone] [facility] glucose1 (chief complaint) abd pain (chief complaint) UTI1 (chief complaint) Drug induced constipationColitis HyperglycemiaAcute cystitis without hematuria 4 Malcom Pimentel. [address], [place], [address]. tel:[phone] OFFICE/OUTPA TIENT VISIT, EST [facility], [address], [place], [address], tel:[phone] [facility] rib pain1 (chief complaint) anxiety1 (chief complaint) fatigue1 (chief complaint) Upper abdominal painFatigueGenerali zed Anxiety DisorderTobacco use 4 Malcom Pimentel. [address], [place], [address]. tel:[phone] OFFICE/OUTPA TIENT VISIT, EST [facility], [address], [place], [address], [place] tel:[phone] [facility] neck pain1 (chief complaint) Tension headacheOther muscle spasm 4 Malcom Margarito. [address], [place], [address]. tel:[phone] PREV VISIT, EST, AGE 40-64 [facility], [address], [place], [address], tel:[phone] [facility] physical (chief complaint) Encounter for general adult medical exam w abnormal findingsOsteoporosi sEssential (primary) hypertensionRestles s legs syndromeMixed hyperlipidemiaFibro myalgiaGeneralized Anxiety DisorderTobacco use 4 Malcom Pimentel. [address], [address], [place], [address]. tel:[phone] OFFICE/OUTPA TIENT VISIT, [facility], [place], [address], [place], [address], [place] tel:[phone] [facility] low back pain1 (chief complaint) osteopenia 1 (chief complaint) HLP (chief complaint) swelling1 (chief complaint) HTN (chief complaint) Mixed hyperlipidemiaOsteo porosisEssential (primary) hypertensionMuscle spasm of backEdema 4 Malcom Pimentel. [address], [address], [place], [address]. tel:[phone] OFFICE/OUTPA TIENT VISIT, [facility], [place], [address], [place], [address], [place] tel:[phone] [facility] RLS (chief complaint) bowel1 (chief complaint) Restless legs syndromeChange in bowel habit 3 Malcom Pimentel. [address], [place], [address]. tel:[phone] PREV VISIT, [facility], AGE 40-64 [facility], [address], [place], [address], [place] tel:[phone] [facility] physical (chief complaint) Encounter for general adult medical exam w abnormal findingsOsteoporosi sMixed hyperlipidemiaGener alized Anxiety DisorderFibromyalgi aRestless legs syndromeAllergic rhinitis due to pollenEssential (primary) hypertension 3 Malcom Pimentel. [address], [address], [place], [address]. tel:[phone] OFFICE/OUTPA TIENT VISIT, [facility], [place], [address], [place], [address], [place] tel:[phone] [facility] sinus allergy1 (chief complaint) osteoporos is1 (chief complaint) RLS (chief complaint) anxity1 (chief complaint) HTN (chief complaint) OsteoporosisRestles s legs syndromeGeneralized Anxiety DisorderEssential (primary) hypertensionAllergi c rhinitis due to pollenMetabolic syndrome 3 Malcom Pimentel. [address], [place], [address]. tel:[phone] OFFICE/OUTPA TIENT VISIT, [facility], [place], [address], [place], [address], [place] tel:[phone] [facility] HLP (chief complaint) heel pain1 (chief complaint) osteoporos is1 (chief complaint) insulin1 (chief complaint) Mixed hyperlipidemiaOsteo porosisPain in left footHyperglycemia 2 Malcom Margarito. [address], [address], [place], [address]. tel:[phone] PREV VISIT, EST, AGE 40-64 [facility], [address], [place], [address], [place] tel:[phone] [facility] Medicine physical (chief complaint) Encounter for general adult medical examination without abnormal findings 2 Malcom Margarito. [address], [place], [address]. tel:[phone] OFFICE/OUTPA TIENT VISIT, EST [facility], [address], [place], [address], [place] tel:[phone] [facility] RLS1 (chief complaint) insomnia1 (chief complaint) sleep apnea1 (chief complaint) osteoporos is (chief complaint) sinus allergy1 (chief complaint) Restless legs syndromeInsomniaOst eoporosisSleep apneaAllergic rhinitisInconclusiv e mammogram 2 العراقي Margarito. [address], [place], [address]. tel:[phone] OFFICE/OUTPA TIENT VISIT, [facility], [place], [address], [place], [address], [place] tel:[phone] [facility] glucose1 (chief complaint) urine1 (chief complaint) anxiety1 (chief complaint) pain (chief complaint) Mixed incontinenceGeneral ized Anxiety DisorderFibromyalgi aInconclusive mammogramHyperglyce leidy 2 Malcom Margarito. [address], [place], [address]. tel:[phone] OFFICE/OUTPA TIENT VISIT, [facility], [place], [address], [place], [address], tel:[phone] [facility] glucose1 (chief complaint) HTN (chief complaint) incontinen ce1 (chief complaint) sleep apnea1 (chief complaint) Essential (primary) hypertensionMixed incontinenceSleep apneaHyperglycemia 1 Malcom Figueroa [address], [place], [address]. tel:[phone] OFFICE/OUTPA TIENT VISIT, EST [facility], [address] [place], [address], tel:[phone] [facility] HTN (chief complaint) HLP (chief complaint) RLS (chief complaint) pain (chief complaint) Generalized Anxiety DisorderTachycardia HyperlipidemiaEssen tial (primary) hypertensionFibromy algiaRestless legs syndrome 1 Malcom Figueroa [address], [place], [address]. [phone] OFFICE/OUTPA TIENT VISIT, EST [facility], [address], [place], [address], [place] tel:[phone] [facility] tachycardi a1 (chief complaint) fibromyalg ia1 (chief complaint) HLP (chief complaint) glucose1 (chief complaint) RLS (chief complaint) anxiety1 (chief complaint) TachycardiaEssentia l (primary) hypertensionFibromy algiaGeneralized Anxiety DisorderRestless legs syndromeHyperglycem iaHyperlipidemiaOst eoporosis 1 Malcom Figueroa [address], [place], [address]. tel:[phone] PREV VISIT, EST, AGE 40-64 [facility], [address] [place], [address], [place] tel:[phone] [facility] PHysical (chief complaint) Encounter for general adult medical examination without abnormal findings 1 Malcom Figueroa [address], [place], [address]. tel:[phone] OFFICE/OUTPA TIENT VISIT, [facility], [place], [address], [place], [address], tel:[phone] [facility] fibromyalg ia1 (chief complaint) anxiety1 (chief complaint) HTN (chief complaint) sleep apnea1 (chief complaint) Essential (primary) hypertensionFibromy algiaGeneralized Anxiety DisorderInsomniaSle ep apneaRestless legs syndrome 0 Malcom Pimentel. [address], [place], [address]. tel:[phone] OFFICE/OUTPA TIENT VISIT, [facility], [place], [address], [place], [address], [place] tel:[phone] [facility] allergy1 (chief complaint) tobacco (chief complaint) Allergic rhinitisTobacco use 0 Malcom Pimentel. [address], [place], [address]. tel:[phone] OFFICE/OUTPA TIENT VISIT, [facility], [place], [address], [place], [address], tel:[phone] [facility] flank pain1 (chief complaint) Acute pyelonephritis 0 Malcom Pimentel. [address], [place], [address]. tel:[phone] Referring Provider: Margarito العراقي, [address] [facility] [place], [address]. tel:[phone] OFFICE/OUTPA TIENT VISIT, [facility], [place], [address] [place], [address], tel:[phone] [facility] HTN (chief complaint) HLP (chief complaint) fibromyalg ia1 (chief complaint) tobacco1 (chief complaint) Essential (primary) hypertensionFibromy algiaTobacco useHyperlipidemia Jun- 0 Malcom Pimentel. [address], [place], [address]. tel:[phone] Referring Provider: Saba Heath [address] [facility] [place], [address]. tel:[phone] OFFICE/OUTPA TIENT VISIT, [facility], [place], [address], [place], [address], [place] tel:[phone] [facility] HTN (chief complaint) HTN (chief complaint) Urinary tract infectionEssential (primary) hypertension 0 Malcom Pimentel. [address], [place], [address]. tel:[phone] Referring Provider: Margarito العراقي, [address], [place], [address]. tel:[phone] OFFICE/OUTPA TIENT VISIT, [facility], [place], [address], [place], [address], [place] tel:[phone] [facility] HTN (chief complaint) HLP (chief complaint) osteoporos is1 (chief complaint) Essential (primary) hypertensionTachyca rdiaOsteoporosisHyp erlipidemia 0 Malcom Pimentel. [address], [place], [address]. tel:[phone] Referring Provider: Saba Heath [address], [place], [address]. tel:[phone] OFFICE/OUTPA TIENT VISIT, [facility], [place], [address], [place], [address], [place] tel:[phone] [facility] HTN (chief complaint) alcohol1 (chief complaint) TachycardiaEssentia l (primary) hypertensionAlcohol dependence, uncomplicated 0 Malcom Pimentel. [address], [place], [address]. tel:[phone] Referring Provider: Margarito العراقي [address], [place], [address]. tel:[phone] OFFICE/OUTPA TIENT VISIT, [facility], [place], [address], [place], [address], [place] tel:[phone] [facility] HTN (chief complaint) HLP (chief complaint) fibromyalg ia1 (chief complaint) HyperlipidemiaTachy cardiaEssential (primary) hypertensionEncount er for screening for other viral diseasesInsomnia - 0 Malcom Pimentel. [address], [place], [address]. tel:[phone] Referring Provider: Margarito العراقي, Saba Diaz [facility] [address], [place], [place], [facility]. tel:[phone] OFFICE/OUTPA TIENT VISIT, EST [facility], [address], [place], [place], [facility], tel:[phone] [facility] htn (chief complaint) HLp (chief complaint) osteoporos is1 (chief complaint) Essential (primary) hypertensionTachyca rdiaHeadacheOsteopo rosisHyperlipidemia 0 Malcom Pimentel. [address], [place], [place], [facility]. tel:[phone] Referring Provider: Saba Heath [address] [facility] [address], [place], [place], [facility]. tel:[phone] PREV VISIT, NEW, AGE 40-64 [facility], [facility] [address], [place], [place], [facility], [place] tel:[phone] [facility] PHysical (chief complaint) Encntr for general adult medical exam w/o abnormal findings 0 Malcom Pimentel. [address], [place], [place], [facility]. tel:[phone] Referring Provider: Saba Heath [facility] [place], [facility]. tel:[phone] Family History Family Member Type Diagnosis Age At Onset Sister Problem (finding) Diabetes mellitus Mother Problem (finding) throat CA (Cause Of Cherri th) 38 Father Problem (finding) of CAD (Cause Of D eath) 89 Payers Payer name Insurance type Covered alliance party ID Authoriza tion(s) No Information Social History Type Description Quantity Date Captured Comments Alcohol Use Details Caffeine Use Details Unknown Tobacco Use Status Heavy cigarette smok er (20-39 cigs/day) Smoking Status Heavy tobacco smoker Sex Female Vital Signs Date / Time: Height Weight BMI Pulse Rate Blood Pressure Temperature Respiratory Rate Body Surface Area Head Circumference BMI percentile Pulse Ox Inhaled Ox 4:15 PM 60.00 in 162.80 lbs 31.7 9 kg/m eter (2) 88 /min 128/86 mm[Hg] 98.2 F 16 /min Chief Complaint And Reason For Visit From encounter dated '11/08/2024 16:15'. glucose1 (chief complaint). Description: Pt has mildly high glucose her A1c is normal abd pain (chief complaint). Description: Pt has been having diffuse crampy abdominal pain for several months Pt denies any nausea, vomiting Pt had CT done which showed constipation and large bowel thickening as well Pt denies any diarrhea or blood in stool. Pt states that she has BM every day without hard stool. Pt denies any fever, chill Pt had benign colonoscopy last year. Pt does strain with BM every time. Pt denies any change of bowel. Pt is on amitiza daily due to opioid use and she takes senna also UTI1 (chief complaint). Description: Pt c/o mild urine urgency, frequency and dysuria for several days Pt did a positive home UA test Pt denies fever, chill Plan Of Treatment Date Type Action Status Goal Tobacco cessation counseling completed Goal Tobacco cessation counseling completed Goal Special diet education compl eted Goal Tobacco cessation counseling completed Referral Ordered: CT ABDOMEN&PELVIS W/CONTRAST ordered Referral Ordered: DXA BONE DENSITY, AXIAL ordered Referral Ordered: [facility] -[facility] Service Providers : Senior Contracts Manager (related to Pain in left foot) ordered Referral Referred To: [facility]IBEL FINE [address] [place], [place], [phone] Ordered: Referrals: Podiatric Medicine & Surgery Service Providers : Senior Contracts Manager. MARIBEL FINE. Evaluate and treat ordered Referral Ordered: Cardiology (related to Tachycardia) ordered Referral Ordered: Referrals: Cardiology. Evaluate and treat ordered Referral Ordered: LUMBAR XRAY AP AND LAT ONLY ordered Appointment Shivani Betancur BOOKED History Of Present Illness Encounter Date Complaint History Of Prese nt Illness glucose1 Pt has mildly hi gh glucose her A1c is normal abd pain Pt has been havi ng diffuse crampy abdominal pain for several months Pt denies any nausea, vomiting Pt had CT done which showed constipation and large bowel thickening as well Pt denies any diarrhea or blood in stool. Pt states that she has BM every day without hard stool. Pt denies any fever, chill Pt had benign colonoscopy last year. Pt does strain with BM every time. Pt denies any change of bowel. Pt is on amitiza daily due to opioid use and she takes senna also UTI1 Pt c/o mild urin e urgency, frequency and dysuria for several days Pt did a positive home UA test Pt denies fever, chill rib pain1 Pt c/o acute ons et of left side rib pain with radiation to left midback area sine two weeks ago. Pt denies any chest pain or sob. Pt did think that she hit the left rib area on the corner of the cough and did sone heavy lifting prior to onset of the pain Pt denies any sob. pt notices sharp pain and seems worse with movement or lying on left side. She went to [facility] two weeks ago and she had normal chest x ray and rib x ray. Pt received some lidocaine patch which did help. Pt denies any bowel issue . pt denies any rash anxiety1 Pt has chronic a nxiety and depression Pt is on cymbalta and wellbutrin which really helps her mood and also insomnia. Pt only has been taking wellbutrin once at night which also helps her sleep as well Pt is able to cut down tobacco as well fatigue1 Pt has chronic f atigue Pt has sleep apnea and she uses cpap nightly pt has not done lab yet neck pain1 Pt c/o acute ons et of right side neck pain radiating down to right scapular area for one week Pt also has some tension headache as well Pt denies any radiculopathy or any right upper extremity paresthesia or weakness. Pt woke up with the pain. She states that pain is sharp and worse with neck movement. Pt denies any sore throat Pt denies any injury. Pt c/o sharp pain all the time but worse with neck movement. Pt denies any fever or chill. physical Pt needs annual physical. pt has history of osteoporosis. Pt has not been on prolia for close to one year and she had bone density done several months ago which showed worsening bone density and her bone specialist wants her to do lab and potentially restart her on prolia. Pt has HLP Pt takes lipitor. Pt has HTN. Pt takes metoprolol and irbesartan and hctz. Her bp is stable. Pt has anxiety and depression Pt doing ok with Cymbalta Pt denies any suicidal or homicidal thought Pt denies any crying spells . Pt has fibromyalgia Pt sees pain management Pt is on lyrica and norco and flexeril. Pt has RLS. Pt takes requip and doing ok. Pt has insomnia .Pt takes ambien qhs PRN and doing ok Pt denies any new complaints. low back pain1 Pt c/o left lowe r back pain for 3-4 days. pt c/o dull ache Pt notices pain with movement Pt denies any urinary symptoms Pt denies any fever, chill. Pt denies any sciatica or any loss of bowel or bladder control or saddle area paresthesia osteopenia1 Pt has osteoporo sis. Pt was getting prolia infusion but she has not had the infusion for several years Pt told me she had bone density done by her bone specialist last year which showed osteopenia. Pt takes calcium and vitamin D HLP Pt has HLP ,Pt t akes lipitor Pt denies any myalgia. Pt needs Lipitor refilled . swelling1 Pt notices swell ing around left side of neck, left arm and left leg for several days pt denies any weakness or sensory loss. HTN Pt has HTN. Pt t akes irbesartan,, hctz and metoprolol and her bp is borderline high Pt missed her cardiology fawn yesterday Pt denies any chest pain or headache RLS Pt has RLS. pt t akes requip and doing ok Pt doing ok. Pt needs it refilled bowel1 Pt denies any karan wel change. Pt had negative colonoscopy early this year. physical Pt needs annual physical. Pt has osteoporosis. pt has been getting reclast infusion for several years. Pt had bone density done through her bone specialist recently which showed osteopenia. Pt is off reclast for now per bone specialist. Pt takes calcium and vitamin D. Pt has fibromyalgia Pt takes norco and lyrica and she sees pain management and doing ok ,pt has HLP ,Pt takes lipitor and doing ok. Pt has RLS Pt doing ok with requip Pt has anxiety and depression ,Pt takes cymbalta and doing ok Pt has tachycardia pt denies any chest pain or palpitation Pt sees cardiology and she is on hctz, metoprolol and irbesartan. Her bp is ok. sinus allergy1 Pt has sinus all ergy. Pt uses astelin nasal spray and is doing well. Pt needs it refilled. osteoporosis1 Pt has osteoporo sis. Pt takes calcium and vitamin d Pt gets reclast infusion regularly. Pt has not done bone density for several years. RLS Pt has RLS Pt us es requip Pt denies any neuropathy. Pt doing well with requip anxity1 Pt has chronic a nxiety and depression Pt takes cymbalta and doing ok Pt denies any suicidal or homicidal thought Pt denies any crying spells HTN Pt has HTN Pt ta kes irbesartan and metoprolol and her bp is stable HLP Pt has HLP. Pt t akes lipitor .Pt denies any myalgia. osteoporosis1 Pt has osteoporo sis. Pt sees bone specialist. Pt is being treated with reclast and calcium and D. Pt is working on weight bearing exercise. insulin1 Pt has history o f mild insulin resistance. Pt [place] any polyuria, polydipsia or any neuropathy heel pain1 Pt c/o left heel pain for several months ,Pt denies any injury. Pt denies any radiation of pain to bottom of left foot or any paresthesia. Pt denies any posterior ankle or calf pain. Pt states that the pain seems worse with weight bearing and is worse in the morning. Pt denies any swelling, redness or warmth physical Pt needs annual physical. Pt has RLS and she has been taking requip 2 mg qhs which works well. Pt does not have any iron deficiency anemia. Pt has osteoporosis. pt takes calcium and D. Pt gets reclast infusion and she sees endo. Pt has anxiety and depression Pt takes cymbalta and doing ok. Pt denies any suicidal or homicidal thought pt denies any crying spells. Pt has HTn Pt takes metoprolol and irbesartan and hctz and her bp is stable. Pt has chronic insomnia. Pt takes ambien qhs and doing ok. Pt has fibromyalgia and chronic back pain Pt sees pain management. Pt denies any sciatica, loss of bowel or bladder control or saddle abilio paresthesia. RLS1 Pt has RLS. pt t pepper requip qhs which did help but not so much anymore. insomnia1 Pt has insomnia. P takes ambien qhs PRN only Pt states that she wakes up frequently at night for unknown reason Pt denies any PND or orthopnea Pt denies any frequent urination at night Pt denies any sob Pt denies edema. pt states that she wakes up multiple times in the middle of the night for unknown reason. 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 Her sleep specialist just turned up the cpap setting for her recently osteoporosis Additional infor sergo: Pt has osteopenia Pt used to have osteoporosis. Pt is getting reclast and she takes calcium and D Pt being managed by endo. sinus allergy1 Pt has chronic s inus allergy Pt take astelin and doing ok pt needs refill urine1 Pt notices mild moisture around vaginal area for several months Pt denies any ramirez incontinence. Pt just feels moist down there and she is not sure if she is leaking urine. Pt denies any urinary urgency and frequency or dysuria. Pt denies any flank pain. pt denies any vaginal itching or bleeding. Pt denies any noticeable leakage of urine pain Pt has chronic n ngoc and back pain Pt has DDD. Pt denies any loss of bowel or bladder control or saddle area paresthesia pt denies any radiculopathy or sciatica or any saddle area paresthesia Pt sees pain management for injection and she takes cymbalta. Pt is off lyrica. Pt needs form completed for homestead exemption due to personal disability glucose Pt has borderlin e high glucose and a1c. Pt denies any polyuria, polydipsia. anxiety1 Pt has chronic a nxiety and depression Pt takes cymbalta and doing ok Pt denies any suicidal or homicidal thought pt denies any crying spells. Pt sees psychiatrist. glucose Pt has history o f high glucose Pt denies any polyuria, polyuria Pt does have family history of DM. HTN Pt has HTN Pt ta kes hctz, metoprolol and irbesartan. She sees cardiology Pt denies any chest pain her bp is borderline high. Pt denies any headache incontinence1 Pt notices mild moisture around vaginal area for several months Pt denies any ramirez incontinence. Pt just feels moist down there and she is not sure if she is leaking urine. Pt denies any urinary urgency and frequency or dysuria. Pt denies any flank pain. pt denies any vaginal itching or bleeding. 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 Pt doing ok. Pt feels more energy and less snoring .Pt does feel mild dry mouth with cpap. Pt does use humidifier HLP Pt has HLP, Pt t akes lipitor Pt denies any myalgia. Pt needs refill RLS Pt has RLs Pt ta kes requip and doing ok, Pt needs refilled. HTN Pt has HTN and t achycardia. Pt denies any chest pain or headache Pt is on irbesartan, metoprolol and hctz now by cardiology. Pt was referred to [place] [facility] but she changed her mind and decided to stay with her current shipping lead person Pt states that her bp and tachycardia are well controlled. pain Pt has chronic b ack pain and fibromyalgia Pt has mild sciatica and leg numbness Pt denies any loss of bowel or bladder control. Pt is on lyrica, cymbalta and she had MRI Of T and L spine done recently. Pt sees pain management. pt needs lyrica refilled .Pt also takes hydrocodone PRn for pain tachycardia1 Pt has chronic i ntermittent tachycardia Pt notices mild palpitation sometimes Pt denies any ramirez chest pain Pt is seeing shipping lead person but she has hard time getting in to see them Pt had negative cardiac stress test 2018. Pt denies any exertional symptoms Pt states that her HR runs around 120 all the time. Pt denies any sob. Pt takes metoprolol, irbesartan and her bp is ok fibromyalgia pt has fibromyal seth and chronic upper back and low back pain pt used to see pain management but not anymore ,Pt c/o right flank area pain for several months pt denies any injury Pt notices mild right sciatica and right leg numbness and tingling. Pt denies any loss of bladder or bowel control. Pt states that the pain is sharp and seems worse with posture and lying on right side. Pt denies any urinary symptoms Pt denies any abd pain. Pt takes norco PRn, lyrica. Pt denies any neuropathy HLP Pt takes lipitor and her lipid profile is ok now Pt denies any myalgia glucose1 Pt has high gluc ose Pt denies any polyuria, polydipsia Pt does eat a lot o starchy food RLS Pt has RLS ,pt t akes requip and doing ok. She is not anemic anxiety Pt has chronic a nxiety and depression Pt used to take cymbalta but she weaned herself off .Pt is seeing psychiatrist now Pt denies any suicidal or homicidal thought Pt denies any crying spells. Pt is worried about dementia from cymbalta PHysical Pt needs annual physical Pt has HTN Pt takes irbesartan and metoprolol and her bp is stable Pt sees cardiology Pt denies any chest pain pt has fibromyalgia and back pain Pt takes lyrica, flexeril and occasional norco for pain control Pt has mild sciatica Pt denies any loss of bladder control Pt has mild neuropathy. Pt has RSL. Pt states that requip works well for her but she still has some restless leg at night. Pt sleeps much better .Pt is off klonopin pt has osteoporosis .Pt is on reclast infusion now along with calcium and d. Pt has HLP Pt takes lipitor daily Pt denies any myalgia. Pt takes ambien PRN for insomnia. Pt feels well Pt denies any new complaints fibromyalgia1 Pt has fibromyal seth and chronic low back pain. Pt has mild sciatica. Pt denies any loss of bladder control. Pt takes lyrica. Pt used to take norco PRn for pain. Pt anxiety1 Pt has history o f anxiety and depression Pt stopped taking cymbalta and she also stopped taking wellbutrin. Pt states that wellbutrin did not help with smoking cessation Pt states that she wants to give her brain a break. Pt denies any suicidal or homicidal thought. Pt is seeing counseling now and she wants to hold off medication for now . HTN Pt has HTN .Pt t akes irbesartan 150 mg and metoprolol 25 mg BID and her bp is stable. pt denies any hypotension . 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 pt doing ok Pt takes klonopin PRn from her sleep specialist for restless night. Pt states that she feels urge to move all her extremity at night. Pt denies any neuropathy .Pt states that her sleep doctor gave her klonopin for above and she takes PRn and also ambien is not helping her sleep anyway allergy1 Pt has chronic s inus allergy ,Pt takes azalein nasal spray which works well. Pt notices less congestion with the nasal spray tobacco Pt has been alva ruiz wellbutrin to help her with smoking cessation. Pt has ont quit completely but she is smoking much less now. Pt denies any hemoptysis, sob or cough flank pain1 Pt c/o right fla nk pain for one week with some suprapubic pressure and urinary urgency and frequency Pt denies any fever chill, nausea, vomiting Pt has normal UO. Pt denies any vaginal discharge. Pt denies any injury Pt c/o dull ache. PT denies any sciatica or any leg numbness. Pt states that she feels pain when she pushes the right flank as well as pounding on the area HTN Pt has HTN. Pt t akes metoprolol and irbesartan from cardiology and her bp is stable. PT denies any chest pain or headache HLP Pt has HLP Pt ta kes lipitor daily PT denies any myalgia ,Pt needs refill fibromyalgia1 Pt has chronic f ibromyalgia and anxiety and depression Pt was seeing pain management and she was on cymbalta and norco and lyrica but she weaned herself off norco and cymbalta .Pt is on lyrica only and doing ok PT states that her mood is ok. PT denies any suicidal or homicidal thought Pt denies any crying spells tobacco1 Pt smokes about one pack per day Pt denies any hemoptysis, sob or cough Pt wants to try to quit smoking HTN Pt saw her cardi ologist and she is on irbesartan 75 mg daily and metoprolol 12.5 mg BID currently Pt states that her BP is 120/80 and her pulse is 106. Pt feels ok pt denies any chest pain or headache or palpitation HTN Pt c/o urinary f requency and urgency and pelvic pressure since 10 days ago. Pt went to see her previous PCP who gave her abx for 5 days and she finished it which did help but symptoms returned now. Pt denies any fever, chill ,flank pain Pt does have mild dysuria HTN Pt has HTn Pt ta kes irbesartan 300 mg daily since one week ago. Her BP is persistently high at home around 158/90 and her pulse is around 100-110s. She had some palpitation and headache and nausea 5 days ago and she went to Er. EKG showed sinus tachycardia. Pt was told that she has anxiety and was given some ativan and sent home. D-dimer ok. Chest x ray showed some aortic atherosclerosis. Pt currently feels jittery. Pt has mildly leukocytosis from ER lab. Pt denies any chest pain. pt feels slight palpitation currently Pt denies any sweaty pt denies any nausea, Pt has very mild headache currently Pt denies any sob, Pt denies any calf pain . HLP Pt has HLP. Pt t akes lipitor intermittently. Pt takes about only twice per week. Pt denies any myalgia osteoporosis1 pt has osteoporo sis. Pt gets porlia injection and she takes calcium and D. Pt has low D .Pt denies any fx HTN Pt has been taki ng irbesartan and she notices that her BP is getting higher recently. Her average reading is around 155/90s Pt denies any chest pain or headache ,Pt denies any palpitation. her pulse is around 100-105 on average. Pt did see cardiology several years ago due to HTN and she had negative cardiac echo and stress test. Pt does not have any known cardiac disease. Pt denies any edema or any other complaints alcohol1 Pt drinks on [address] 5 beers per day. Pt denies any abd pain or jaundice HTN Pt has HTN. Pt f eel much better with irbesartan ,PT feels less fatigue, and overall more energy. Pt denies any chest pain or headache. Her BP is stable today HLP Pt takes lipitor Pt denies any myalgia. fibromyalgia1 Pt has fibromyal seth Pt has anxiety and depression. Pt takes cymbalta, lyrica and norco from pain management. Pt doing ok Pt denies any suicidal or homicidal thought. Pt denies any crying spells htn pt has been off bystolic for 10 days Pt is taking irbesartan 75 mg daily her BP is borderline high around 150/80 at home. Pt notices mild frontal headache since off bystolic Pt notices mild palpitation since off bystolic. Pt also notices a mild dry cough since taking irbesartan. Pt denies any chest pain or sob HLp Pt has HLP Pt ta kes lipitor Pt denies any myalgia. osteoporosis1 Pt has osteoporo sis. pt gets prolia once per year. pt does not take calcium and D on consistent basis. PHysical pt needs annual physical Pt has HTN, Pt unable to tolerate lisinopril due to dry cough and norvasc tends to drop her BP. pt actually passed out 3-4 times during last 2-3 years for unknown Pt states that she thinks that she had some orthostatic episodes Pt is on bystolic which is not helping her BP very much per patient. Pt states that her BP is usually high. Pt denies any chest pain or headache pt has fibromyalgia and anxiety and depression Pt takes cymbalta and lyrica Pt denies any suicidal or homicidal thought. Pt denies any crying spells. pt takes lipitor for HLP, Pt denies any other complaints. Pt denies any headache Instructions Date Instruction Additional Infor sergo Follow a low sodium diet. Relate d to Essential (primary) hypertension Stop smoking. Related to Essen tial (primary) hypertension Special diet education Related t o Body mass index (BMI) 33.0-33.9, adult Assessments Type Assessment Date assessment Drug induced constipation assessment Colitis assessment Hyperglycemia assessment Acute cystitis without hematuria Mental Status Date Cognitive Assessment Orientation - [place] ed to time, place, person, situation.
--- OUTSIDE RECORDS SUMMARY | 2024-11-19 05:09 | XMS_ITS | Continuity of Care Document ---
Author Organization [facility] Address [address] [place] [address] Phone Care Team Providers Care Palliative Medicine Physician Name Role Phone Fischer OD, Dayday Unavailable Unavailable Procedures Procedure Date Office/outpatient Visit, Est Eye Exam & Treatment Refraction Corneal Pachymetry Fundus Photography W/ Report Office/outpatient Visit, Est Office/outpatient Visit, Est Optic Nerve Topography Optic Nerve Topography Eye Exam & Treatment Refraction Advance Directives Directive Yes / No Effective Date File Name No Information Encounters Encounter Description Practice Location Reason(s) For Visit Diagnoses Date Provider Providers Copied on Encounter Office/outpat ient Visit, Est [facility], [address] [place] [address] [address], [place], [place], [id number], [place] tel:[phone] [facility] No Information 9-201 0 Fischer OD Dayday. [address] , [address], [place], [address], [place]. tel:[phone] [facility], [address], [place], [place], [id number], [place] tel:[phone] [facility] No Information 2-201 0 Fischer OD Dayday. [address], [place], [address], [place]. tel:[phone] Referring Provider: Dayday Fischer OD A, [address], [place], [address]. tel:[phone] Office/outpat ient Visit, [facility], [address] [place] [address] [address], [place], [place], [id number], tel:[phone] [facility] No Information Sep-2 6-200 9 Fischer OD Dayday. [address] [place], [place] [address]ate [address], [place], [address], [place]. tel:[phone] Office/outpat ient Visit, [facility], [address] [place] [address] [address], [place], [place], [id number], tel:[phone] [facility] No Information Oct-0 2-200 8 Fischer OD Dayday. [facility] [address], [place], [address], [place]. tel:[phone] [facility], [address] [place] [address] [address], [place], [place], [address], [place] tel:[phone] [facility] No Information Apr-0 4-200 8 Fischer OD Dayday. [address] [place] [address] [address], [place], [address], [place]. tel:[phone] Referring Provider: Dayday Fischer OD A, [address] [place], [place] [address], [place], [address]. tel:[phone] [facility], [address] [place] [address] [address], [place], [place], [address], [place] tel:[phone] [facility] No Information Mar-1 3-200 8 Fischer OD Dayday. [address] [place], [place] [address], [place], [address], [place]. tel:[phone] Family History Family Member Type Diagnosis Age At Onset No Information Payers Payer name Insurance type Covered green party ID Jany hernandez(s) [facility] Out Of [place] [id number] Social History Type Description Quantity Date Captured Comments Sex Female Smoking Status No Information Chief Complaint And Reason For Visit No Information Reason For Referral Reason For Referral No Information History Of Present Illness Encounter Date Complaint History Of Prese nt Illness No Information Functional Status Date Functional Assessmen t No Information Instructions Date Instruction Additional Infor mation No Information Assessments Type Assessment Date No Information Patient Care Teams Name Effective Dates (start - stop) Status Members No Information
== END 2024-11-12 05:03 | disposition home or self-care (01) ==
PROVIDERS: Physician Assistant; Emergency Provider Emergency Medicine; PCP Emergency Medicine
DX: R10.9 Unspecified abdominal pain (principal); M81.0 Age-related osteoporosis without current pathological fracture; F41.8 Other specified anxiety disorders; I10 Essential (primary) hypertension; K21.9 Gastro-esophageal reflux disease without esophagitis; F17.210 Nicotine dependence, cigarettes, uncomplicated
CPT/HCPCS: 36415; 74177; 80053; 81003; 83690; 85025; 96374; 96375; 99284; J2270; J2405; J7030; Q9967

== ENCOUNTER 2025-01-02 15:28 | Outpatient (CLI) | payer OTHER, SELFPAY ==
--- NOTE | ~2025-01-02 | MM_ITS ---
EXAMINATION: MM screening [facility] BI w ora HISTORY: Screening TECHNIQUE: Craniocaudal and mediolateral oblique 3-D tomosynthesis images were obtained and synthetic 2-D images were generated. CAD analysis was submitted and interpreted. COMPARISON: Comparison to multiple prior studies sequentially, with oldest reviewed study dated 01/15. BREAST PARENCHYMAL COMPOSITION: Not dense: There are scattered areas of fibroglandular density. FINDINGS: There is no evidence of suspicious mass, calcification, or architectural distortion to sugg est malignancy in either breast. There has been no suspicious interval change. IMPRESSION: 1. No mammographic evidence of malignancy. 2. Recommend routine screening mammography in one year. BI-RADS Category 1: Negative Reviewed, dictated and finalized at location B. [facility] [employer]
== END 2025-01-02 15:29 | disposition home or self-care (01) ==
LOC: MICIMG 15:30
PROVIDERS: PCP Emergency Medicine; Visit Provider Obstetrics & Gynecology
DX: Z12.31 Encounter for screening mammogram for malignant neoplasm of breast (principal)
CPT/HCPCS: 77063; 77067

== ENCOUNTER 2025-01-16 08:59 | Outpatient (CLI) | payer OTHER, SELFPAY ==
--- NOTE | ~2025-01-16 | MR_ITS ---
EXAMINATION: MR shoulder RT wo con DATE: 01/16/2025 09:46 INDICATION: Right rotator cuff tear TECHNIQUE: Magnetic resonance imaging (MRI) of the right shoulder was performed without intravenous c ontrast. Sequences included axial PD-weighted FS FSE, coronal oblique PD-weighted FS FSE, coronal obl ique T2-weighted FS FSE, sagittal PD-weighted FS FSE, and sagittal T1-weighted SE. COMPARISON: None. FINDINGS: Coracoacromial arch: The acromion undersurface is curved in morphology (type II) with anterior downsloping and small anter ior subacromial spur. The coracoacromial ligament is normal. Mild acromioclavicular osteoarthritis. Rotator cuff: Moderate supraspinatus and mild infraspinatus tendinopathy. There is a narrow bursal sided split tear at the superior facet footplate of the supraspinatus tendon measuring 1-2 mm in width, 5 mm medial t o lateral and extending through one half to two thirds of the tendon thickness. The teres and subscap ularis tendons are normal. Normal rotator cuff muscle bulk and signal. Biceps tendon, glenoid labrum and glenohumeral cartilage: Mild tendinopathy without discrete tear of the long head biceps tendon centered at the junction of th e intra and extra articular portion of the tendon. Amorphous increased signal at the posterior superi or glenoid labrum with some more well-defined linear increased signal at the base of the labrum at th is location on the coronal images consistent with degenerative tearing. Glenohumeral cartilage is nor mal. Fluid: Physiologic amount of fluid in the glenohumeral joint and biceps tendon sheath. No loose osteochondr al bodies. Small amount of fluid in the subacromial/subdeltoid bursa consistent with mild bursitis. Bones: Normal marrow signal with no edema, fracture or abnormal marrow replacing process. Mild cystic change at the greater tuberosity. IMPRESSION: 1. Moderate supraspinatus tendinopathy with small amount partial-thickness bursal sided thin split te ar at the superior facet footplate. 2. Degenerative tearing at the posterior superior glenoid labrum. 3. Mild acromioclavicular osteoarthritis. 4. subacromial/subdeltoid bursitis. Reviewed, dictated and finalized at location B. [facility] [employer] IMPRESSION: 1. Moderate supraspinatus tendinopathy with small amount partial-thickness burs al sided thin split tear at the superior facet footplate. 2. Degenerative tearing at the posterior superior glenoid labrum. 3. Mild acromioclavicular osteoarthritis. 4. subacromial/subdeltoid bursitis.
== END 2025-01-16 09:00 | disposition home or self-care (01) ==
LOC: MICIMG 09:00
PROVIDERS: PCP Physician Assistant; Visit Provider Physician Assistant
DX: S46.011A Strain of muscle(s) and tendon(s) of the rotator cuff of right shoulder, initial encounter (principal); S43.431A Superior glenoid labrum lesion of right shoulder, initial encounter; M67.813 Other specified disorders of tendon, right shoulder; M19.011 Primary osteoarthritis, right shoulder; M75.51 Bursitis of right shoulder; X58.XXXA Exposure to other specified factors, initial encounter
CPT/HCPCS: 73221

== ENCOUNTER 2025-07-05 23:02 | Emergency (ER) | payer OTHER, SELFPAY ==
--- OUTSIDE RECORDS SUMMARY | 2025-07-05 23:05 | XMS_ITS | Continuity of Care Document ---
Author Organization [facility] Address [address] [place] [address] Phone Care Team Providers Care Freight Caller Name Role Phone Fischer OD, Dayday Unavailable [...] Copied on Encounter Office/outpat ient Visit, Est [facility], [address] [place] [address] [address], [place], [place], [id number], [place] tel:[phone] [facility] No Information 9-201 0 Fischer OD Dayday. [address], [place], [address], [place]. tel:[phone] [facility], [address], [place], [place], [address], [place] tel:[phone] [facility] No Information 2-201 0 Fischer OD Dayday. [address], [address], [place], [address], [place]. tel:[phone] Referring Provider: Dayday Fischer OD A, [address], [place], [address]. tel:[phone] Office/outpat ient Visit, [facility], [address] [place] [address] [address], [place], [place], [id number], tel:[phone] [facility] No Information Sep-2 6-200 9 Fischer OD Dayday. [address] [place], [place] [address], [place], [address], [place]. tel:[phone] Office/outpat ient Visit, [facility], [address] [place] [address] [address], [place], [place], [id number], tel:[phone] [facility] No Information Oct-0 2-200 8 Fischer OD Dayday. [facility] [address], [place], [address], [place]. tel:[phone] [facility], [address] [place] [address] [address], [place], [place], [address], [place] tel:[phone] [facility] No Information Apr-0 4-200 8 Fischer OD Dayday. [address] [place] [address] [address], [place], [address], [place]. tel:[phone] Referring Provider: Dayday Ficsher OD A, [address] [place], [place] [address], [place], [address]. tel:[phone] [facility], [address] [place] [address] [address], [place], [place], [address], [place] tel:[phone] [facility] No Information Mar-1 3-200 8 Fischer OD Dayday. [address] [place], [place] [address], [place], [address], [place]. tel:[phone] Family History Family Member Type Diagnosis Age At Onset No Information Payers Payer name Insurance type Covered green party ID Jany hernandez(s) [facility] Out Of State [id number] Social History Type Description Quantity Date Captured [...]
--- OUTSIDE RECORDS SUMMARY | 2025-07-05 23:05 | XMS_ITS | Encounter Summary ---
Author Organization [facility] Address [address] [place] [address] Care Team Providers Care Automatic Maintainer Name Role Phone Mendoza Parker MD Primary Care Provider +1- [phone] Mendoza Parker MD Primary Care Provider +- [phone] Mendoza Parker MD Primary Care Provider +- [phone] Mendoza Parker MD Primary Care Provider +- [phone] Mendoza Parker MD Primary Care Provider + [phone] Mendoza Parker MD Primary Care Provider +1- [phone] Margarito العراقي MD Primary Care Provider +[phone] Raymond Vela MD Unavailable [phone] Encounter Details Date Type Department Care Team (Late st Contact Info) Description 02/01/2012 Orders Only [facility] Information Management [address] [place] [address] Scanning, Provider Social History Tobacco Use Types Packs/Day Years Used Date Smoking Tobacco: Never Assessed Comments Unknown Sex and Gender Information Value Date Recorded Sex Assigned at Not on file 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 Gender Identity Not on file Sexual Orientation Not on file documented as of this encounter Plan of Treatment Upcoming Encounters Date Type Department Care Team (Latest Contact Info) Description 07/29/2025 1:30 PM CDT Hospital Encounter [facility] Operating Room [address] [place] [address] Arnol Moreau MD [address] [place] [address] DR [address] [address] 07/29/2025 1:30 PM CDT - 07/29/2025 2:15 PM CDT Surgery [facility] Operating Room 1 [place] [address] Arnol Moreau MD [address] [place] [address] DR [address] [place] [address] Bilateral carpal tunnel release-hand table Scheduled Procedures Name Priority Associated Diagnoses Date/Ti me RELEASE CARPAL TUNNEL Carpal tunnel syndrome, bilateral 07/29/2025 1:30 PM CDT documented as of this encounter Procedures Procedure [...] documented as of this encounter Care Teams Automatic Maintainer Relationship Specialty Start Date End Date Mendoza Parker MD PCP - General 02/18/17 06/12/20 Mendoza Parker MD PCP - General 11/18/15 02/17/17 Mendoza Parker MD PCP - General 06/03/15 11/17/15 Mendoza Parker MD PCP - General 03/05/13 06/02/15 Mendoza Parker MD PCP - General 08/20/08 03/04/13 Mendoza Parker MD PCP - General 06/13/20 09/03/20 Margarito العراقي MD [address] [place] [address] PCP - General Family Medicine 09/04/20 Raymond Vela MD [address] [place] [address] Referring Physician Obstetrics and Gynecology 08/17/21 documented as of this encounter
--- OUTSIDE RECORDS SUMMARY | 2025-07-05 23:05 | XMS_ITS | Encounter Summary ---
Author Organization [facility] Medical Group Address [address] [place] [address] Care Team Providers Care Sorting Supervisor Name Role Phone Mendoza Parker MD Primary Care Provider +1- [phone] Mendoza Parker MD Primary Care Provider +- [phone] Mendoza Parker MD Primary Care Provider +- [phone] Mendoza Parker MD Primary Care Provider +- [phone] Mendoza Parker MD Primary Care Provider + [phone] Mendoza Parker MD Primary Care Provider +1- [phone] Margarito العراقي MD Primary Care Provider [phone] Raymond Vela MD Unavailable [phone] Encounter Details Date Type Department Care Team (Late st Contact Info) Description 01/05/2013 Orders Only [facility] [place] Health Information Management [address] [place] [address] Scanning, Provider Social History Tobacco Use Types Packs/Day Years Used Date Smoking Tobacco: Never Assessed Comments Unknown Sex and Gender Information Value Date Recorded Sex Assigned at Not on file 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 Gender Identity Not on file Sexual Orientation Not on file documented as of this encounter Plan of Treatment Upcoming Encounters Date Type Department Care Team (Latest Contact Info) Description 07/29/2025 1:30 PM CDT Hospital Encounter [facility] Operating Room 1 [place] [address] Arnol Moreau MD [address] [place] [address] DR [address] [address] 07/29/2025 1:30 PM CDT - 07/29/2025 2:15 PM CDT Surgery [facility] Operating Room 1 [place] [address] Arnol Moreau MD [address] [place] [address] DR [address] B [address] [place] [address] Bilateral carpal tunnel release-hand table Scheduled Procedures [...] documented as of this encounter Care Teams Sorting Supervisor Relationship Specialty Start Date End Date Mendoza Parker MD PCP - General 02/18/17 06/12/20 Mendoza Parker MD PCP - General 11/18/15 02/17/17 Mendoza Parker MD PCP - General 06/03/15 11/17/15 Mendoza Parker MD PCP - General 03/05/13 06/02/15 Mendoza Parker MD PCP - General 08/20/08 03/04/13 Mendoza Parker MD PCP - General 06/13/20 09/03/20 Margarito العراقي MD [address] [place] [id number] PCP - General Family Medicine 09/04/20 Raymond Vela MD [address] [place] [address] Referring Physician Obstetrics and Gynecology 08/17/21 documented as of this encounter
--- OUTSIDE RECORDS SUMMARY | 2025-07-05 23:05 | XMS_ITS | Encounter Summary ---
Author Organization [facility] Medical Group Address [address] [place] [address] Care Team Providers Care Patient Support Tech Name Role Phone Mendoza Parker MD Primary Care Provider +1- [phone] Mendoza Parker MD Primary Care Provider +- [phone] Mendoza Parker MD Primary Care Provider +- [phone] Mendoza Parker MD Primary Care Provider +- [phone] Mendoza Parker MD Primary Care Provider + [phone] Mendoza Parker MD Primary Care Provider +1- [phone] Margarito العراقي MD Primary Care Provider +[phone] Raymond Vela MD Unavailable [phone] Encounter Details Date Type Department Care Team (Late st Contact Info) Description 02/16/2006 Orders Only [facility] Health Information Management [address] [place] [address] Scanning, Provider Social History Tobacco Use Types Packs/Day Years Used Date Smoking Tobacco: Never Assessed Comments Unknown Sex and Gender Information Value Date Recorded Sex Assigned at Not on file 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 Gender Identity Not on file Sexual Orientation Not on file documented as of this encounter Plan of Treatment Upcoming Encounters Date Type Department Care Team (Latest Contact Info) Description 07/29/2025 1:30 PM CDT Hospital Encounter [facility] Operating Room 1 [place] [address] Arnol Moreau MD [address] [place] [address] DR [address] [address] 07/29/2025 1:30 PM CDT - 07/29/2025 2:15 PM CDT Surgery [facility] Operating Room [address] [place] [address] Arnol Moreau MD [address] [place] [address] DR [address] [place] [address] Bilateral carpal tunnel release-hand table Scheduled Procedures [...] documented as of this encounter Care Teams Patient Support Tech Relationship Specialty Start Date End Date Mendoza Parker MD PCP - General 02/18/17 06/12/20 Mendoza Parker MD PCP - General 11/18/15 02/17/17 Mendoza Parker MD PCP - General 06/03/15 11/17/15 Mendoza Parker MD PCP - General 03/05/13 06/02/15 Mendoza Parker MD PCP - General 08/20/08 03/04/13 Mendoza Parker MD PCP - General 06/13/20 09/03/20 Margarito العراقي MD [address] [place] [address] PCP - General Family Medicine 09/04/20 Raymond Vela MD [address] [place] [address] Referring Physician Obstetrics and Gynecology 08/17/21 documented as of this encounter
--- OUTSIDE RECORDS SUMMARY | 2025-07-05 23:05 | XMS_ITS | Encounter Summary ---
Author Organization [facility] Medical Group Address [address] [place] [address] Care Team Providers Care Merchandise Planner Name Role Phone Mendoza Parker MD Primary Care Provider +1- [phone] Mendoza Parker MD Primary Care Provider +- [phone] Mendoza Parker MD Primary Care Provider +1- [phone] Mendoza Parker MD Primary Care Provider +1- [phone] Mendoza Parker MD Primary Care Provider +1- [phone] Margarito العراقي MD Primary Care Provider [phone] Raymond Vela MD Unavailable [phone] Encounter Details Date Type Department Care Team (Late st Contact Info) Description 01/15/2014 Orders Only [facility] Health Information Management [address] [place] [address] Scanning, Provider Social History Tobacco Use Types Packs/Day Years Used Date Smoking Tobacco: Former Cigarettes Q uit: 11/21/2003 Alcohol Use Standard Drinks/Week Comments No 0 (1 standard drink = 0.6 oz pur e alcohol) Comments Unknown Sex and Gender Information Value Date Recorded Sex Assigned at Not on file 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 Gender Identity Not on file Sexual Orientation Not on file documented as of this encounter Plan of Treatment Upcoming Encounters Date Type Department Care Team (Latest Contact Info) Description 07/29/2025 1:30 PM CDT Hospital Encounter [facility] Operating Room 1 [place] [address] Arnol Moreau MD [address] [place] [address] DR CHEPE Thompson [facility] [address] [place] [address] 07/29/2025 1:30 PM CDT - 07/29/2025 2:15 PM CDT Surgery [facility] Operating Room [address] [place] [address] Arnol Moreau MD [address] [place] [address] DR CHEPE Thompson [facility] [address] [place] [address] Bilateral carpal tunnel release-hand table Scheduled Procedures [...] documented as of this encounter Care Teams Merchandise Planner Relationship Specialty Start Date End Date Mendoza Parker MD PCP - General 02/18/17 06/12/20 Mendoza Parker MD PCP - General 11/18/15 02/17/17 Mendoza Parker MD PCP - General 06/03/15 11/17/15 Mendoza Parker MD PCP - General 03/05/13 06/02/15 Mendoza Parker MD PCP - General 06/13/20 09/03/20 Margarito العراقي MD [address] [address] PCP - General Family Medicine 09/04/20 Raymond Vela MD [address] [place] [address] Referring Physician Obstetrics and Gynecology 08/17/21 documented as of this encounter
--- OUTSIDE RECORDS SUMMARY | 2025-07-05 23:05 | XMS_ITS | Encounter Summary ---
Author Organization [facility] Medical Group Address [address] [facility] [address] [place] [address] Care Team Providers Care Refurbish Technician Name Role Phone Mendoza Parker MD Primary Care Provider +1- [phone] Mendoza Parker MD Primary Care Provider +- [phone] Mendoza Parker MD Primary Care Provider +- [phone] Mendoza Parker MD Primary Care Provider +- [phone] Mendoza Parker MD Primary Care Provider + [phone] Mendoza Parker MD Primary Care Provider +[phone]- [phone] Margarito العراقي MD Primary Care Provider +[phone] Raymond Vela MD Unavailable [phone] Encounter Details Date Type Department Care Team (Late st Contact Info) Description 01/31/2012 Orders Only [facility] Health Information Management [address] [place] [address] Scanning, Provider Social History Tobacco Use Types Packs/Day Years Used Date Smoking Tobacco: Never Assessed Comments Unknown Sex and Gender Information Value Date Recorded Sex Assigned at Not on file 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 Gender Identity Not on file Sexual Orientation Not on file documented as of this encounter Plan of Treatment Upcoming Encounters Date Type Department Care Team (Latest Contact Info) Description 07/29/2025 1:30 PM CDT Hospital Encounter [facility] Operating Room 1 [place] [address] Arnol Moreau MD [address] [place] [address] [address] [address] 07/29/2025 1:30 PM CDT - 07/29/2025 2:15 PM CDT Surgery [facility] Operating Room 1 [place] [address] Arnol Moreau MD [address] [place] [address] DR [address] [place] [address] Bilateral carpal tunnel release-hand table Scheduled Procedures [...] documented as of this encounter Care Teams Refurbish Technician Relationship Specialty Start Date End Date [...] DR [address] [address] PCP - General Family Medicine 09/04/20 Raymond Vela MD [address] [place] [address] Referring Physician Obstetrics and Gynecology 08/17/21 documented as of this encounter
--- OUTSIDE RECORDS SUMMARY | 2025-07-05 23:05 | XMS_ITS | Encounter Summary ---
Author Organization [facility] Medical Group Address [address] [place] [address] Care Team Providers Care Real Estate Office Manager Name Role Phone Mendoza Parker MD Primary Care Provider +1- [phone] Mendoza Parker MD Primary Care Provider +- [phone] Mendoza Parker MD Primary Care Provider +1- [phone] Mendoza Parker MD Primary Care Provider +1- [phone] Mendoza Parker MD Primary Care Provider +1- [phone] Margarito العراقي MD Primary Care Provider [phone] Raymond Vela MD Unavailable Encounter Details Date Type Department Care Team (Late st Contact Info) Description 05/20/2015 Orders Only [facility] Health Information Management [address] [place] [address] Scanning, Provider Social History Tobacco Use Types Packs/Day Years Used Date Smoking Tobacco: Former Cigarettes Q uit: 11/21/2003 Alcohol Use Standard Drinks/Week Comments No 0 (1 standard drink = 0.6 oz pur e alcohol) Comments Unknown Sex and Gender Information Value Date Recorded Sex Assigned at Not on file 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 Gender Identity Not on file Sexual Orientation Not on file documented as of this encounter Plan of Treatment Upcoming Encounters Date Type Department Care Team (Latest Contact Info) Description 07/29/2025 1:30 PM CDT Hospital Encounter [facility] Operating Room 1 [place] [address] Arnol Moreau MD [address] [place] [address] DR CHEPE Thompson [facility] [address] [place] [address] 07/29/2025 1:30 PM CDT - 07/29/2025 2:15 PM CDT Surgery [facility] Operating Room [address] [place] [address] Arnol Moreau MD [address] [place] [address] DR CHEPE Thompsno [facility] [address] [place] [address] Bilateral carpal tunnel release-hand table Scheduled Procedures [...] documented as of this encounter Care Teams Real Estate Office Manager Relationship Specialty Start Date End Date Mendoza Parker MD PCP - General 02/18/17 06/12/20 Mendoza Parker MD PCP - General 11/18/15 02/17/17 Mendoza Parker MD PCP - General 06/03/15 11/17/15 Mendoza Parker MD PCP - General 03/05/13 06/02/15 Mendoza Parker MD PCP - General 06/13/20 09/03/20 Margarito العراقي MD [address] [facility] [place] [address] PCP - General Family Medicine 09/04/20 Raymond Vela MD [address] [place] [address] Referring Physician Obstetrics and Gynecology 08/17/21 documented as of this encounter
--- OUTSIDE RECORDS SUMMARY | 2025-07-05 23:05 | XMS_ITS | Encounter Summary ---
Author Organization [facility] Address [address] [place] [address] Phone Care Team Providers Care Master Cook Name Role Phone Mendoza Parker MD Primary Care Provider +1- [phone] Mendoza Parker MD Primary Care Provider +- [phone] Margarito العراقي MD Primary Care Provider +-[phone] Raymond Vela MD Unavailable [phone] Encounter Details Date Type Department Care Team (Late st Contact Info) Description 01/06/2018 Orders Only [facility] [address] [place] [address] Mendoza Parker MD [address] [place] [address] Social History Tobacco Use Types Packs/Day Years Used Date Smoking Tobacco: Former Smokeless Tobacco: Former Alcohol Use Standard Drinks/Week Comments No 0 (1 standard drink = 0.6 oz pur e alcohol) Comments Unknown Sex and Gender Information Value Date Recorded Sex Assigned at Not on file 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 Gender Identity Not on file Sexual Orientation Not on file documented as of this encounter Plan of Treatment Upcoming Encounters Date Type Department Care Team (Latest Contact Info) Description 07/29/2025 1:30 PM CDT Hospital Encounter [facility] Operating Room 1 [place] [address] Arnol Moreau MD [address] [facility] [address] [place], [place] [address] 07/29/2025 1:30 PM CDT - 07/29/2025 2:15 PM CDT Surgery [facility] Operating Room 1 [place] [address] Arnol Moreau MD [address] [place] [address] [address] [place] [address] Bilateral carpal tunnel release-hand table Scheduled Procedures Name Priority Associated Diagnoses Date/Ti me RELEASE CARPAL TUNNEL Carpal tunnel syndrome, bilateral 07/29/2025 1:30 PM CDT documented as of this encounter Procedures Procedure Name Priority Date/Time Associated Diagnosis Comments SCAN - LABS 01/06/2018 10:58 AM 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 documented in this encounter Results * SCAN - LABS (01/06/2018 10:58 AM 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) Mendoza Parker MD Final Resu lt documented in this encounter Visit Diagnoses Not on filedocumented in this encounter Additional Health Concerns Infection Onset Date Last Indicated Resolved Time COVID: Suspected 02/20/2024 02/20/2024 02/20/2024 2:54 PM CDT documented as of this encounter Care Teams Master Cook Relationship Specialty Start Date End Date Mendoza Parker MD PCP - General 02/18/17 06/12/20 Mendoza Parker MD PCP - General 06/13/20 09/03/20 Margarito العراقي MD [address] [place] [address] PCP - General Family Medicine 09/04/20 Raymond Vela MD [address] [place] [address] Referring Physician Obstetrics and Gynecology 08/17/21 documented as of this encounter
--- OUTSIDE RECORDS SUMMARY | 2025-07-05 23:05 | XMS_ITS | Clinical Summary ---
Author Organization [facility] Address [address] [place] [address] Phone Care Team Providers Care Lead Accountant Name Role Phone Mendoza Parker MD [...] 67 03/22/2023 11:43 AM CDT Temperature 36.2 C (97.1 F) 03/22/2023 9:43 AM CDT Respiratory Rate 18 03/22/2023 9:43 AM CDT Oxygen Saturation 99% 03/22/2023 11:43 AM CDT Inhaled Oxygen Concentration - - Weight 74.8 kg (165 lb) 03/22/2023 9:43 AM CDT Height 149.9 cm (4' 11) 03/22/2023 9:43 AM CDT Body Mass Index 33.33 03/22/2023 9:43 AM CDT Plan of Treatment Health Maintenance Due Date Last Done Comments Hepatitis C Virus (HCV) Screening 1964 Cologuard 2009 Immunochemical Fecal Occult Blood 2009 Pneumococcal Immunization (50+ years) (2 of 2 - PCV) 08/07/2022 08/07/2021 SARS-COV-2 Immunization ( season) 2024 08/30/2022, 02/24/2022, 09/17/2021, Additional history exists Influenza Immunization (#1) 07/22/202508/21, 08/07/2021, 08/31/2019, Additional history exists Colonoscopy 02/23/2033 02/23/2023 Colorectal Cancer Screening 02/23/2033 Respiratory Syncytial Virus (RSV) Immunization (Adult) (1 - 1-dose 75+ series) 2039 Hepatitis B Immunization Completed 005, 09/24/2004, 08/25/2004 DTaP/Tdap/Td Immunization Discontinued 05/11/2018 TdaP Immunization Completed 05/11/2018 Zoster Immunization Completed 07/20/2021, Pneumococcal Immunization Combined Discontinued 08/07/2021 Human Papillomavirus (HPV) Immunization Aged Out No longer eligible based on patient's age to complete this topic Meningococcal Immunization (ACWY) Aged Out No longer eligible based on patient's age to complete this topic Rotavirus Immunization Aged Out No lo nger eligible based on patient's age to complete this topic Insurance Care Teams Lead Accountant Relationship Specialty Start Date End Date Mendoza Parker MD [address] [place] [address] PCP - General Internal Medicine 03/16/16
--- OUTSIDE RECORDS SUMMARY | 2025-07-05 23:05 | XMS_ITS | Clinical Summary ---
Author Organization [facility] Address [address] [place] [address] Care Team Providers Care Women'S Apparel Salesperson Name Role Phone Mendoza Parker MD Primary Care Provider +1- [phone] Source Comments [facility],non-owned Affiliates and Associated Physician Practices is amultiple site organization consisting of ambulatory clinics and hospital sitesin [place], [place], [place] and [place]. This disclosure is being madepursuant to the Care Everywhere program and may not contain all information available regarding this patient. 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 Gender Identity Not on file Sexual Orientation Not on file Last Filed Vital Signs Vital Sign Reading Time Taken Comments Blood Pressure 134/90 02/04/2014 10:19 AM CDT Pulse 70 02/04/2014 10:19 AM CDT Temperature 36.4 C (97.6 F) 02/04/2014 10:19 AM CDT Respiratory Rate 18 02/04/2014 10:19 AM CDT [...] SCREENING 1965 LIPID TESTING 1964 MAMMOGRAM 1964 HIV SCREENING 1979 HEPATITIS C SCREENING 09/07/1982 DTAP/TDAP/TD VACCINES (1 - Tdap) 1983 PNEUMOCOCCAL VACCINE 50+ (1 of 1 - PCV) 2014 ZOSTER VACCINE (1 of 2) 2014 COVID-19 VACCINE (1 - 2023-2 5 season) 2024 DEPRESSION SCREENING 11/21/2024 INFLUENZA VACCINE (#1) 2025 Respiratory Syncytial Virus (RSV) Vaccine Pt: or [...] patient's age to complete this topic MENINGOCOCCAL (Group B) VACC INE SHARED DECISION-MAKING Aged Out No longer eligibl e based on patient's age to complete this topic MENINGOCOCCAL GROUPS A/C/Y/W VACCINE Aged Out No longer eligible b ased on patient's age to complete this topic Care Teams Women'S Apparel Salesperson Relationship Specialty Start Date End Date Mendoza Parker MD PCP - General 01/24/13
--- OUTSIDE RECORDS SUMMARY | 2025-07-05 23:05 | XMS_ITS | Continuity of Care Document ---
Author Organization [facility] Address [address] [place] [address] [place] [address] Phone Care Team Providers Care Research Program Assistant Name Role Phone Margarito العراقي MD Unavailable Unavailable Allergies, Adverse Reactions, Alerts Substance Reaction Status Criticality metronidazole Active No Information CIPROFLOXACIN HCL Active No Informa tion ciprofloxacin Active No Information Medications Medication Instructions Dosage Effective Dates (start - stop) Status Comments Wellbutrin SR 150 mg tablet, 12 hr [...] needed for pain as needed 1.00 tablet - Active PRN for pain, avoid driving [...] Copied on Encounter OFFICE/OUTPA TIENT VISIT, EST [facility], [address] [place], [place] [address]jose eduardo [facility] [place], [address], [place] tel:[phone] [facility] abd pain1 (chief complaint) Generalized abdominal pain 5 Malcom Figueroa [address], [place], [place], [address] , [place]. tel:[phone] OFFICE/OUTPA TIENT VISIT, EST [facility], [address], [place], [place], [address], [place] [phone] [facility] glucose1 (chief complaint) abd pain (chief complaint) UTI1 (chief complaint) Drug induced constipationColitis HyperglycemiaAcute cystitis without hematuria 4 Malcom Figueroa [address], [place], [place], [address] , [place]. [phone] OFFICE/OUTPA TIENT VISIT, [facility], [address] [place], [address], [place] tel:[phone] [facility] rib pain1 (chief complaint) anxiety1 (chief complaint) fatigue1 (chief complaint) Upper abdominal painFatigueGenerali zed Anxiety DisorderTobacco use 4 Malcom Figueroa [address], [place], [place], [address] , [place]. tel:[phone] OFFICE/OUTPA TIENT VISIT, EST [facility], [address] [place], [address], [place] tel:[phone] [facility] neck pain1 (chief complaint) Tension headacheOther muscle spasm Jul- 4 Malcom Figueroa [address], [place], [place], [address] , [place]. tel:[phone] PREV VISIT, EST, AGE 40-64 [facility], [address] [place], [address], [place] tel:[phone] [facility] physical (chief complaint) Encounter for general adult medical exam w abnormal findingsOsteoporosi sEssential (primary) hypertensionRestles s legs syndromeMixed hyperlipidemiaFibro myalgiaGeneralized Anxiety DisorderTobacco use 4 Malcom Pimentel. [address], [place], [place], [address] , [place]. tel:[phone] OFFICE/OUTPA TIENT VISIT, [facility], [address], [place], [place], [address], [place] tel:[phone] [facility] low back pain1 (chief complaint) osteopenia 1 (chief complaint) HLP (chief complaint) swelling1 (chief complaint) HTN (chief complaint) Mixed hyperlipidemiaOsteo porosisEssential (primary) hypertensionMuscle spasm of backEdema 4 Malcom Pimentel. [address], [place], [place], [address] , [place]. tel:[phone] OFFICE/OUTPA TIENT VISIT, [facility], [address], [place], [place], [address], [place] tel:[phone] [facility] RLS (chief complaint) bowel1 (chief complaint) Restless legs syndromeChange in bowel habit 3 Malcom Pimentel. [address], [place], [place], [address] , [place]. tel:[phone] PREV VISIT, EST, AGE 40-64 [facility], [address], [place], [place], [address], [place] tel:[phone] [facility] physical (chief complaint) Encounter for general adult medical exam w abnormal findingsOsteoporosi sMixed hyperlipidemiaGener alized Anxiety DisorderFibromyalgi aRestless legs syndromeAllergic rhinitis due to pollenEssential (primary) hypertension 3 Malcom Pimentel. [address], [place], [place], [address] , [place]. tel:[phone] OFFICE/OUTPA TIENT VISIT, [facility], [address], [place], [place], [address], [place] tel:[phone] [facility] sinus allergy1 (chief complaint) osteoporos is1 (chief complaint) RLS (chief complaint) anxity1 (chief complaint) HTN (chief complaint) OsteoporosisRestles s legs syndromeGeneralized Anxiety DisorderEssential (primary) hypertensionAllergi c rhinitis due to pollenMetabolic syndrome 3 Malcom Figueroa [address], [place], [place], [address] , [place]. tel:[phone] OFFICE/OUTPA TIENT VISIT, EST [facility], [address] [place], [address], [place] tel:[phone] [facility] HLP (chief complaint) heel pain1 (chief complaint) osteoporos is1 (chief complaint) insulin1 (chief complaint) Mixed hyperlipidemiaOsteo porosisPain in left footHyperglycemia 2 Malcom [address]a [address] [facility] [address], [place], [place], [address] , [place]. tel:[phone] PREV VISIT, EST, AGE 40-64 [facility], [address] [place], [place], [address], [place] tel:[phone] [facility] physical (chief complaint) Encounter for general adult medical examination without abnormal findings 2 Malcom Figueroa [address], [place], [place], [address] , [place]. tel:[phone] OFFICE/OUTPA TIENT VISIT, EST [facility], [address] [place], [place], [address], [place] tel:[phone] [facility] RLS1 (chief complaint) insomnia1 (chief complaint) sleep apnea1 (chief complaint) osteoporos is (chief complaint) sinus allergy1 (chief complaint) Restless legs syndromeInsomniaOst eoporosisSleep apneaAllergic rhinitisInconclusiv e mammogram 2 Malcom Figueroa [address], [place], [place], [address] , [place]. tel:[phone] OFFICE/OUTPA TIENT VISIT, EST [facility], [address] [place], [address], [place] tel:[phone] [facility] glucose1 (chief complaint) urine1 (chief complaint) anxiety1 (chief complaint) pain (chief complaint) Mixed incontinenceGeneral ized Anxiety DisorderFibromyalgi aInconclusive mammogramHyperglyce leidy 2 Malcom Figueroa [address], [place], [place], [address] , [place]. tel:[phone] OFFICE/OUTPA TIENT VISIT, [facility], [address] , [place], [place], [address], [place] tel:[phone] [facility] glucose1 (chief complaint) HTN (chief complaint) incontinen ce1 (chief complaint) sleep apnea1 (chief complaint) Essential (primary) hypertensionMixed incontinenceSleep apneaHyperglycemia 1 [address], [place], [place], [address] , [place]. tel:[phone] OFFICE/OUTPA TIENT VISIT, [facility], [address], [place], [place], [address], [place] tel:[phone] [facility] HTN (chief complaint) HLP (chief complaint) RLS (chief complaint) pain (chief complaint) Generalized Anxiety DisorderTachycardia HyperlipidemiaEssen tial (primary) hypertensionFibromy algiaRestless legs syndrome 1 Mal[address], [place], [place], [address] , [place]. tel:[phone] OFFICE/OUTPA TIENT VISIT, [facility], [address], [place], [place], [address], [place] tel:[phone] [facility] tachycardi a1 (chief complaint) fibromyalg ia1 (chief complaint) HLP (chief complaint) glucose1 (chief complaint) RLS (chief complaint) anxiety1 (chief complaint) TachycardiaEssentia l (primary) hypertensionFibromy algiaGeneralized Anxiety DisorderRestless legs syndromeHyperglycem iaHyperlipidemiaOst eoporosis 1 Malcom Figueroa [address], [place], [place], [address] , [place]. [phone] PREV VISIT, EST, AGE 40-64 [facility], [address], [place], [place], [address], [place] tel:[phone] [facility] PHysical (chief complaint) Encounter for general adult medical examination without abnormal findings 1 Malcom Figueroa [address], [place], [place], [address] , [place]. [phone] OFFICE/OUTPA TIENT VISIT, EST [facility], [address], [place], [place], [address], [place] tel:[phone] [facility] Medicine fibromyalg ia1 (chief complaint) anxiety1 (chief complaint) HTN (chief complaint) sleep apnea1 (chief complaint) Essential (primary) hypertensionFibromy algiaGeneralized Anxiety DisorderInsomniaSle ep apneaRestless legs syndrome 0 Malcom Figueroa [address], [place], [place], [address] , [place]. tel:[phone] OFFICE/OUTPA TIENT VISIT, EST [facility], [address], [place], [place], [address], [place] tel:[phone] [facility] allergy1 (chief complaint) tobacco (chief complaint) Allergic rhinitisTobacco use 0 Malcom Figueroa [address], [place], [place], [address] , [place]. tel:[phone] OFFICE/OUTPA TIENT VISIT, EST [facility], [address] [place], [address], [place] tel:[phone] [facility] Medicine flank pain1 (chief complaint) Acute pyelonephritis 0 Malcom Figueroa [address], [place], [place], [address] , [place]. tel:[phone] Referring Provider: Margarito العراقي [address], [place], [place], [address]. tel:[phone] OFFICE/OUTPA TIENT VISIT, [facility], [address], [place], [place], [address], [place] tel:[phone] [facility] Medicine HTN (chief complaint) HLP (chief complaint) fibromyalg ia1 (chief complaint) tobacco1 (chief complaint) Essential (primary) hypertensionFibromy algiaTobacco useHyperlipidemia 0 Malcom Pimentel. [address], [place], [place], [address] , [place]. tel:[phone] Referring Provider: Saba [address], [place], [place], [address]. tel:[phone] OFFICE/OUTPA TIENT VISIT, [facility], [address], [place], [place], [address], [place] tel:[phone] [facility] HTN (chief complaint) HTN (chief complaint) Urinary tract infectionEssential (primary) hypertension 0 Malcom Pimentel. [address], [place], [place], [address] , [place]. tel:[phone] Referring Provider: Saba [address], [place], [place], [address]. tel:[phone] OFFICE/OUTPA TIENT VISIT, [facility], [address], [place], [place], [address], [place] tel:[phone] [facility] HTN (chief complaint) HLP (chief complaint) osteoporos is1 (chief complaint) Essential (primary) hypertensionTachyca rdiaOsteoporosisHyp erlipidemia 0 Malcom Figueroa [address], [place], [place], [address] , [place]. tel:[phone] Referring Provider: Saba [address], [place], [place], [address]. tel:[phone] OFFICE/OUTPA TIENT VISIT, [facility], [address], [place], [place], [address], [place] tel:[phone] [facility] HTN (chief complaint) alcohol1 (chief complaint) TachycardiaEssentia l (primary) hypertensionAlcohol dependence, uncomplicated 0 Malcom Figueroa [address], [place], [place], [address] , [place]. tel:[phone] Referring Provider: Margarito العراقي, [address], [place], [place], [address]. tel:[phone] OFFICE/OUTPA TIENT VISIT, [facility], [address], [place], [place], [address], [place] tel:[phone] [facility] HTN (chief complaint) HLP (chief complaint) fibromyalg ia1 (chief complaint) HyperlipidemiaTachy cardiaEssential (primary) hypertensionEncount er for screening for other viral diseasesInsomnia 0 Malcom Figueroa [address], [place], [place], [address] , [place]. tel:[phone] Referring Provider: Saba [address], [place], [place], [address]. tel:[phone] OFFICE/OUTPA TIENT VISIT, [facility], [address], [place], [place], [address], [place] tel:[phone] [facility] htn (chief complaint) HLp (chief complaint) osteoporos is1 (chief complaint) Essential (primary) hypertensionTachyca rdiaHeadacheOsteopo rosisHyperlipidemia 0 Malcom [address], [place], [place], [address] , [place]. tel:[phone] Referring Provider: Saba [address], [place], [place], [address]. tel:[phone] PREV VISIT, NEW, AGE 40-64 [facility], [address], [place], [place], [address], [place] tel:[phone] [facility] PHysical (chief complaint) Encntr for general adult medical exam w/o abnormal findings 0 Malcom Pimentel. [address], [place], [place], [address] , [place]. tel:[phone] Referring Provider: Margarito Saba [address], [place], [place], [address]. tel:[phone] Family History Family Member Type Diagnosis Age At Onset Sister Problem (finding) Diabetes mellitus Mother Problem (finding) throat CA (Cause Of Cherri th) 38 Father Problem (finding) of CAD (Cause Of D eath) 89 Payers Payer name Insurance type Covered democrat ID Authoriza tisoni(s) [facility] CI [id number] Social History Type Description Quantity Date Captured Comments Alcohol Use Details Caffeine Use Details Unknown Tobacco Use Status Heavy cigarette smok er (20-39 cigs/day) Smoking Status Heavy tobacco smoker Sex Female Vital Signs Date / Time: Height Weight BMI Pulse Rate Blood Pressure Temperature Respiratory Rate Body Surface Area Head Circumference BMI percentile Pulse Ox Inhaled Ox 5:22 PM 60.00 in 161.40 lbs 31.5 2 kg/m eter (2) 76 /min 100/60 mm[Hg] 97.2 F 16 /min Chief Complaint And Reason For Visit From encounter dated '12/06/2024 17:04'. abd pain1 (chief complaint). Description: Pt c/o intermittent sharp right side abd pain, which usually occurs after meal Pt denies any constipation. Linzess is not covered by insurance so she went back to [facility]. Pt also saw her GI doctor recently and had a negative EGD .Pt denies any nausea, vomiting. Pt denies any GERD .Pt was told by GI that her pain is due to fibromyalgia. Pt went to ER recently again for above and had another CT scan which was negative. Pt told me ER doctor told me she has hernia, which is not shown on the ct scan. Plan Of Treatment Date Type Action Status Goal Tobacco cessation counseling completed Goal Tobacco cessation counseling completed Goal Special diet education compl eted Goal Tobacco cessation counseling completed Referral Referred To: Varun Coffey [address] [place], [phone] Ordered: Referrals: Varun Coffey. Evaluate and treat ordered Referral Ordered: CT ABDOMEN&PELVIS W/CONTRAST ordered Referral Ordered: DXA BONE DENSITY, AXIAL ordered Referral Ordered: [facility] -[facility] Medicine [facility] Service Providers : Concrete Mixer Truck Driver (related to Pain in left foot) ordered Referral Referred To: MARIBEL FINE [address] [facility] [place], [place], [phone] Ordered: Referrals: Podiatric Medicine & Surgery Service Providers : Concrete Mixer Truck Driver. [facility]IB[facility]. Evaluate and treat ordered Referral Ordered: Cardiology (related to Tachycardia) ordered Referral Ordered: Referrals: Cardiology. Evaluate and treat ordered Referral Ordered: LUMBAR XRAY AP AND LAT ONLY ordered Appointment Shivani Betancur BOOKED Appointment Shivani Betancur BOOKED History Of Present Illness Encounter Date Complaint History Of Prese nt Illness abd pain1 Pt c/o intermitt ent sharp right side abd pain, which usually occurs after meal Pt denies any constipation. Linzess is not covered by insurance so she went back to [facility]. Pt also saw her GI doctor recently and had a negative EGD .Pt denies any nausea, vomiting. Pt denies any GERD .Pt was told by GI that her pain is due to fibromyalgia. Pt went to ER recently again for above and had another CT scan which was negative. Pt told me ER doctor told me she has hernia, which is not shown on the ct scan. 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 Her sleep [...] off lyrica. Pt needs form completed for glidden exemption due to personal disability glucose1 Pt has borderlin e high glucose and a1c. Pt denies any polyuria, polydipsia. anxiety1 Pt has chronic a nxiety and depression Pt takes cymbalta and doing ok Pt denies any suicidal or homicidal thought pt denies any crying spells. Pt sees psychiatrist. glucose1 Pt has history o f high glucose Pt denies any polyuria, polyuria Pt does have family history of DM. HTN Pt has HTN Pt ta kes hctz, metoprolol and irbesartan. She sees cardiology Pt denies any chest pain her bp is borderline high. Pt denies any headache incontinence Pt notices mild moisture around vaginal area for several months Pt denies any ramirez incontinence. Pt just feels moist down there and she is not sure if she is leaking urine. Pt denies any urinary urgency and frequency or dysuria. Pt denies any flank pain. pt denies any vaginal itching or bleeding. 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 Pt doing [...] now by cardiology. Pt was referred to [facility] but she changed her mind and decided to stay with her current protective signal installer Pt states that her bp and tachycardia [...] any ramirez chest pain Pt is seeing protective signal installer but she has hard time getting in to see them Pt had negative cardiac stress test 2018. Pt denies any exertional symptoms Pt states that her HR runs around 120 all the time. Pt denies any sob. Pt takes metoprolol, irbesartan and her bp is ok fibromyalgia1 pt has fibromyal seth and chronic upper [...] and doing ok. She is not anemic anxiety1 Pt has chronic a nxiety and [...] hypotension . 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 Relate d to Essential (primary) hypertension Stop smoking. Related to Essen tial (primary) hypertension Special diet education Related t o Body mass index (BMI) 33.0-33.9, adult Assessments Type Assessment Date assessment Generalized abdominal pain Mental Status Date Cognitive Assessment Orientation - [place] ed to time, place, person, situation.
--- OUTSIDE RECORDS SUMMARY | 2025-07-05 23:05 | XMS_ITS | Encounter Summary ---
Author Organization [facility] Address [address] [place] [address] Care Team Providers Care Service Supervisor Name Role Phone Mendoza Parker MD Primary Care Provider [phone] Mendoza Parker MD Primary Care Provider [phone] Mendoza Parker MD Primary Care Provider [phone] Mendoza Parker MD Primary Care Provider [phone] Mendoza Parker MD Primary Care Provider [phone] Margarito العراقي MD Primary Care Provider [phone] Raymond Vela MD Unavailable [phone] Encounter Details Date Type Department Care Team (Late st Contact Info) Description 03/07/2015 Orders Only [facility] Information Management [address] [place] [address] Scanning, Provider Social History Tobacco Use Types Packs/Day Years Used Date Smoking Tobacco: Former Cigarettes Q uit: 11/21/2003 Alcohol Use Standard Drinks/Week Comments No 0 (1 standard drink = 0.6 oz pur e alcohol) Comments Unknown Sex and Gender Information Value Date Recorded Sex Assigned at Not on file 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 Gender Identity Not on file Sexual Orientation Not on file documented as of this encounter Plan of Treatment Upcoming Encounters Date Type Department Care Team (Latest Contact Info) Description 07/29/2025 1:30 PM CDT Hospital Encounter [facility] Operating [address] [place] [address] Arnol Moreau MD [address] [place] [address] DR CHEPE [place]on [facility] [address] [place] [address] 07/29/2025 1:30 PM CDT - 07/29/2025 2:15 PM CDT Surgery [facility] [address] [place] [address] Arnol Moreau MD [address] [place] [address] DR CHEPE Thompson [facility] [address] [place] [address] Bilateral carpal tunnel release-hand table Scheduled Procedures [...] documented as of this encounter Care Teams Service Supervisor Relationship Specialty Start Date End Date Mendoza Parker MD PCP - General 02/18/17 06/12/20 Mendoza Parker MD PCP - General 11/18/15 02/17/17 Mendoza Parker MD PCP - General 06/03/15 11/17/15 Mendoza Parker MD PCP - General 03/05/13 06/02/15 Mendoza Parker MD PCP - General 06/13/20 09/03/20 Margarito العراقي MD [address] [facility] [place] [address] PCP - General Family Medicine 09/04/20 Raymond Vela MD [address] [place] [address] Referring Physician Obstetrics and Gynecology 08/17/21 documented as of this encounter
--- OUTSIDE RECORDS SUMMARY | 2025-07-05 23:05 | XMS_ITS | Encounter Summary ---
Author Organization [facility] Address [address] [place] [address] Phone Care Team Providers Care Sales Development Specialist Name Role Phone Margarito العراقي MD Primary Care Provider [phone] Raymond Vela MD Unavailable [phone] Encounter Details Date Type Department Care Team (Late st Contact Info) Description 04/12/2025 Therapy [facility] [address] [facility] [address] [facility] Advanced Medicine 5th [place] [address] [place] [address] Urbano Delacruz MD [address] [facility] [address] [place] [address] Age-related osteoporosis without current pathological fracture (Primary Dx) Social History Tobacco Use Types Packs/Day Years Used Date Smoking Tobacco: Every Day Cigarettes Smokeless Tobacco: Never Comments:Trying to quit, fee ls she doesn't smoke as much as she use to. Alcohol Use Standard Drinks/Week Comments No 0 (1 standard drink = 0.6 oz pur e alcohol) AUDIT-C Answer Date Recorded Q1: How often do you have a drink containing alc ohol? 2-3 times a week 11/29/2024 Q2: How many drinks containi ng alcohol do you have on a typical day when you are drinking? 3 or 4 11/29/2024 Q3: How often do you have si x or more drinks on one occasion? Monthly 11/29/2024 Personal Safety Answer Date Recorded Have you ever been in or are you currently in a harmful physical or emotional relationship or is someone making you feel afraid or unsafe? 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 Gender Identity Not on file Sexual Orientation Not on file documented as of this encounter Plan of Treatment Upcoming Encounters Date Type Department Care Team (Latest Contact Info) Description 07/29/2025 1:30 PM CDT Hospital Encounter [facility] Operating [address] [place] [address] Arnol Moreau MD [address] [facility] [address] [place] [address] 07/29/2025 1:30 PM CDT - 07/29/2025 2:15 PM CDT Surgery [facility] Operating [address] [place] [address] Arnol Moreau MD [address] [facility] [facility] [address] [facility] [address]PE Thompson [facility] [address] [place] [address] Bilateral carpal tunnel release-hand table Scheduled Orders Name Type Priority Associated Diagnoses Orde r Schedule Comprehensive metabolic panel Lab Routine Age-related osteoporosis without current pathological fracture Expected: 04/15/2025, Expires: 04/12/2026 Vitamin D 25 hydroxy Lab Routine Age-related osteoporosis without current pathological fracture Expected: 04/15/2025, Expires: 04/12/2026 Scheduled Procedures Name Priority Associated Diagnoses Date/Ti me RELEASE CARPAL TUNNEL Carpal tunnel syndrome, bilateral 07/29/2025 1:30 PM CDT documented as of this encounter Visit Diagnoses Diagnosis Age-related osteoporosis without current pathological fracture- Primary Carpal tunnel syndrome, bilateral Carpal tunnel syndrome documented in this encounter Care Teams Sales Development Specialist Relationship Specialty Start Date End Date Margarito العراقي MD [address] [place] [address] PCP - General Family Medicine 09/04/20 Raymond Vela MD [address] [place] [address] Referring Physician Obstetrics and Gynecology 08/17/21 documented as of this encounter
--- OUTSIDE RECORDS SUMMARY | 2025-07-05 23:05 | XMS_ITS | Encounter Summary ---
Author Organization [facility] Address [address] [place] [address] Care Team Providers Care Well Reactivator Operator Name Role Phone Mendoza Parker MD Primary Care Provider [phone] Mendoza Parker MD Primary Care Provider [phone] Mendoza Parker MD Primary Care Provider [phone] Mendoza Parker MD Primary Care Provider +- [phone] Mendoza Parker MD Primary Care Provider + [phone] Mendoza Parker MD Primary Care Provider [phone] Margarito العراقي MD Primary Care Provider [phone] Raymond Vela MD Unavailable [phone] Encounter Details Date Type Department Care Team (Late st Contact Info) Description 02/03/2007 Orders Only [facility] [address] [place] [address] Scanning, Provider Social History Tobacco Use Types Packs/Day Years Used Date Smoking Tobacco: Never Assessed Comments Unknown Sex and Gender Information Value Date Recorded Sex Assigned at Not on file 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 Gender Identity Not on file Sexual Orientation Not on file documented as of this encounter Plan of Treatment Upcoming Encounters Date Type Department Care Team (Latest Contact Info) Description 07/29/2025 1:30 PM CDT Hospital Encounter [facility] Operating Room [address] [place] [address] Arnol Moreau MD [address] [place] [address] [address] [address] 07/29/2025 1:30 PM CDT - 07/29/2025 2:15 PM CDT Surgery [facility] Operating [address] [place] [address] Arnol Moreau MD [address] [place] [address] [address] [place] [address] Bilateral carpal tunnel release-hand table Scheduled Procedures [...] documented as of this encounter Care Teams Well Reactivator Operator Relationship Specialty Start Date End Date Mendoza Parker MD PCP - General 02/18/17 06/12/20 Mendoza Parker MD PCP - General 11/18/15 02/17/17 Mendoza Parker MD PCP - General 06/03/15 11/17/15 Mendoza Parker MD PCP - General 03/05/13 06/02/15 Mendoza Parker MD PCP - General 08/20/08 03/04/13 Mendoza Parker MD PCP - General 06/13/20 09/03/20 Margarito العراقي MD [address] [place] [id number] PCP - General Family Medicine 09/04/20 Raymond Vela MD [address] [place] [address] Referring Physician Obstetrics and Gynecology 08/17/21 documented as of this encounter
--- OUTSIDE RECORDS SUMMARY | 2025-07-05 23:05 | XMS_ITS | Clinical Summary ---
Author Organization [facility] [address] Address [address] [place] [address] Phone Care Team Providers Care First Beater Name Role Phone Margarito العراقي MD Primary Care Provider Raymond Vela MD Unavailable [phone] Allergies Active Allergy Reactions Criticality Noted Date Comments Acetaminophen-Codeine Other (See comments) Low Nausea, vomiting, diarrhea Ciprofloxacin Shortness of breath,Other (See comments),Anaphylaxis High 01/24/2013 Throat swelling, SOB Throat swelling, SOB Asthma/shortness of breath/put patient in ER Reaction: Trouble Breathing, , , Reaction: Trouble Breathing, , Codeine Nausea Only,Itching,Nausea only Low 01/24/2013 Reaction: Itching, Nausea, Lisinopril Cough Low 01/16/2019 Metronidazole Shortness of breath,Other (See comments) High 01/24/2013 Throat swelling Asthma/shortness of breath/put patient in ER Reaction: Trouble Breathing, , , , Medications cyclobenzapri ne (FLEXERIL) 10 mg tablet Take 1 tablet (10 mg total) by mouth 3 (three) times a day as needed 10/28/20 17 Active NARCAN 4 mg/actuation spray,non-aer osol 10/02/20 19 Active pregabalin (LYRICA) 75 mg capsule Take 1 capsule (75 mg total) by mouth daily 02/05/20 20 Active ergocalcifero l (VITAMIN D) 50,000 unit capsule ergocalciferol (vitamin D2) 1,250 mcg (50,000 unit) capsule TAKE 1 CAPSULE BY MOUTH ONCE PER WEEK Active azelastine 205.5 mcg (0.15 %) spray,non-aer osol 08/01/20 21 Active HYDROcodone-a cetaminophen (NORCO) 5-325 mg per tablet Take 1 [...] 100 % powder 3 10/01/20 22 Active meloxicam (MOBIC) 15 mg tablet Take 1 tablet (15 mg total) by mouth daily 08/04/20 23 Active hydroCHLOROth iazide (HYDRODIURIL) 25 mg tablet Take 1 tablet (25 mg total) by mouth daily 90 tablet 3 05/07/20 24 Active irbesartan (AVAPRO) 75 mg tablet Take 2 tablets (150 mg total) by mouth daily 180 tablet 3 05/07/20 24 Active lubiprostone (AMITIZA) 24 mcg capsule TAKE 1 CAPSULE BY MOUTH TWICE A DAY FOR 30 DAYS 05/07/20 24 Active buPROPion SR (WELLBUTRIN SR) 150 mg 12 hr tablet Take 1 tablet (150 mg total) by mouth 2 (two) times a day 06/01/20 24 Active nicotine (NICODERM CQ) 21 mg 06/01/20 24 Active nicotine (NICODERM CQ) 14 mg 06/01/[address] (PROTONIX) 20 mg EC tablet Take 1 tablet (20 mg total) by mouth daily 30 tablet 12/03/192025 Active zolpidem (AMBIEN) 10 mg tablet TAKE 1 TABLET BY MOUTH EVERY DAY AT NIGHT 30 tablet 4 01/01/20 25 Active clindamycin (CLEOCIN) 2 % vaginal cream INSERT ONE APPFUL VAGINALLY EVERY DAY AT BEDTIME FOR 3 DAYS 03/17/20 25 Active metoprolol tartrate (LOPRESSOR) 50 mg immediate release tablet TAKE 1 TABLET BY MOUTH TWICE A DAY 60 tablet 11 05/13/20 25 Active atorvastatin (LIPITOR) 20 mg tablet TAKE 1 TABLET BY MOUTH EVERY DAY 30 tablet 11 06/10/20 25 Active modafiniL (PROVIGIL) 200 mg tablet TAKE 1 TABLET BY MOUTH EVERY DAY 30 tablet 06/20/20 25 Active atorvastatin (LIPITOR) 20 mg tablet Take 1 tablet (20 mg total) by mouth daily 90 tablet 3 05/07/20 24 2024 Discontinued modafiniL (PROVIGIL) 200 mg tablet TAKE 1 TABLET BY MOUTH EVERY DAY 30 tablet 05/02/20 25 2024 Discontinued Active Problems Problem Noted Date Diagnosed Date Elevated alkaline phosphatase level 12/03/2024 Assessment & Plan (03/07/2025 12:07 PM CDT): Noted once last year. Will repeat liver enzymes today. Assessment & Plan (12/03/2024 8:53 AM [facility]): Mild elevation noted in 2022. Will plan repeat CMP and order placed for the patient to do the blood test Dyspepsia 11/22/2024 Assessment & Plan (12/03/2024 8:50 AM B[facility]GAGE [facility]TER [facility]): Chronic symptoms which I think has functional element. Will schedule EGD for evaluation. Smoking 05/07/2024 Dizziness 01/30/2024 Palpitations 05/02/2023 Encounter for screening colonoscopy 01/20/2023 Overview (01/20/2023): Added automatically from request for surgery [id number] Carpal tunnel syndrome, bilateral 10/11/2021 Arthritis of carpometacarpal (CMC) joint of left thumb 10/11/2021 Abnormal findings on diagnostic imaging of breas t 08/17/2021 Chronic idiopathic constipation 09/16/2020 Assessment & Plan (03/07/2025 12:07 PM CDT): Doing well with the Amitiza twice daily. Discussed with the patient that she can use it once daily if her bowel movements or loose more than she would like. No change in treatment. Assessment & Plan (12/03/2024 8:51 AM B[facility]GAGE [facility]TER [facility]): Continue Amitiza. Add fiber supplements daily. Patient has chronic constipation which likely functional and idiopathic secondary to slow motility. Colonoscopy in 2022 noted with diverticulosis. Recommended repeat in 10 years. Assessment & Plan (09/16/2020 5:30 PM CDT): [...] rehab at a facility in [facility]. Patient does not want to leave her family and does not want to go. Advised patient to contact her insurance company regarding an outpatient treatment in this immediate area that she can attend his stay at home. Smoking trying to quit 01/16/2019 Assessment & Plan (01/12/2020 2:49 PM [facility]TER [facility]): Patient continues with trying to quit smoking [...] suicide. Assessment & Plan (01/16/2019 5:58 PM [facility]TER [facility]): Patient requested Chantix I gave her coupon and Rx we sent in again. Ptosis of eyelid 02/14/2018 NEO (obstructive sleep apnea) 09/08/2017 Assessment & Plan (01/12/2020 2:49 PM BAGGAGE PORTER [facility]): Patient advised me she is using a [...] Abdominal hernia Fibromyalgia 10/07/2015 Assessment & Plan (03/07/2025 12:07 PM CDT): Encouraged the patient to participate in any kind of physical exercise and activity. I think a lot of her GI symptoms are reflection of fibromyalgia. Assessment & Plan (12/03/2024 8:54 AM [facility]TER [facility]): I think much of her abdominal pain symptoms and dyspepsia is related to fibromyalgia with functional elements Assessment & Plan (02/03/2019 1:50 PM CDT): Patient's multiple pain she is under care of Pain Clinic she also sees Neurology. Osteoporosis 09/30/2014 Assessment & Plan (05/13/2018 1:48 PM CDT): Patient managed by Endocrinology [facility] she advised me she will be starting [...] as palpitations. At this time request a diagnostic cardiac sonographer for 2 weeks. Assessment & Plan (01/12/2020 2:48 PM [facility]TER [facility]): Patient advised me she is no longer taking Bystolic she is seeing Dr. Margarito العراقي in [place] he is a family practitioner. Placed on [...] alcohol when she drinks. Patient has a n ight cap 4 -5 nights per week.. She never gets intoxicated. [...] & Plan (02/02/2019 4:52 PM CDT): Patient's online content developer changed her medicine is to Bystolic 5 [...] well. Assessment & Plan (01/16/2019 5:55 PM [facility]TER [facility]): Hypertension well controlled with medication Bystolic 40 mg daily. However she has developed greater fatigue dry mouth. This time reduce Bystolic to 20 mg daily. Start spironolactone as add on the next 7 days. Patient to monitor blood pressure I will see her back in the next 3 months. Assessment & Plan (01/06/2019 6:03 PM [facility]TER [facility]): Hypertension is unchanged. Continue current treatment regimen. Dietary sodium restriction. Weight loss. Continue current medications. Blood pressure will be reassessed at the next regular appointment. Assessment & Plan (09/26/2018 12:48 PM B[facility]GAGE [facility]ORTER [facility]): Patient's certain regarding elevated blood pressure which [...] later it does not help. Patient has [place] available from her pain clinic dosage of [...] without esophag itis 12/14/2013 Assessment & Plan (03/07/2025 12:06 PM CDT): Doing well overall. Continue Protonix. Assessment & Plan (02/03/2019 1:51 PM CDT): [...] 01/12/2020 Assessment & Plan (01/16/2019 5:57 PM [facility]TER [facility]): Patient's history of fatigue depression is much [...] some palpitations concurrently. She did contact her online content developer referred on to primary care. With this [...] (01/19/2018): Added automatically from request for surgery [id number] Right ankle pain 01/19/2018 06/14/2019 Overview (01/19/2018): Added automatically from request for surgery [id number] Hospital discharge follow-up 08/14/2017 05/13/2018 Assessment & [...] have remained had 100-106. Patient referred to [facility] further evaluation for repeat chest pain [...] Encounters Date Type Department Care Team Description 06/20/2025 11:15 AM CDT Office Visit [facility] [address] [place] [address] [address] [place] [address] Marcia Haider MD Obstructive sleep apnea syndrome (Primary Dx); Hypersomnia; Chronic insomnia; Obesity (BMI 30-39.9) 05/27/2025 Telephone [facility] [address] [place] [phone] Debbi No MA 05/27/2025 Telephone [facility] [address] [facility] [address] [place] [phone] Debbi No MA 05/01/2025 Telephone [facility] [address] [place] [address] [place] [phone] Marlee Miller RN 04/19/2025 9:45 AM CDT Office Visit [facility] [address] [place] [phone] Arnol Moreau MD Carpal tunnel syndrome, bilateral (Primary Dx); Traumatic complete tear of right rotator cuff, initial encounter; Arthritis of right acromioclavicular joint; Biceps tendinitis of right upper extremity 04/19/2025 Telephone [facility] [address] [place] [phone] Arnol Moreau MD Surgical Clearance 04/12/2025 Therapy [facility] [address] [place] [phone] Urbano Delacruz MD Age-related osteoporosis without current pathological fracture (Primary Dx) 04/12/2025 Results Follow-Up [facility] [address] [place] [phone] Urbano Delacruz MD PTH, Vitamin D 25 hydroxy, Comprehensive metabolic panel from Last 3 Months Immunizations Immunization Administration Dates Next Due Hep B Vaccine [...] Coronary artery disease; Stroke Other 5 Stroke; Broken bones Neg Hx Hip fracture Neg Hx Kyphosis Neg Hx Osteoporosis Neg Hx Scoliosis Neg Hx Relation Name Status Comments Daughter Father Mother Mother's Sister Other 1 Other 2 Other 3 Other 4 Other 5 Social History Tobacco Use Types Packs/Day Years Used Date Smoking Tobacco: Every Day Cigarettes Smokeless Tobacco: Never Tobacco Cessation:Ready to Q uit: Not Asked; Counseling Given: Not Answered Comments:Trying to quit, feels she doesn't smoke as much as she [...] on file Legal Sex Female 12:46 AM [facility] Gender Identity Not on file Sexual Orientation Not on file Obstetrics History Last Filed Vital Signs Vital Sign Reading Time Taken Comments Blood Pressure 155/88 06/20/2025 11:12 AM CDT Pulse 72 06/20/2025 11:12 AM CDT Temperature 36.8 C (98.2 F) 12/03/2024 8:47 AM [facility] Respiratory Rate 18 12/03/2024 8:47 AM [facility] Oxygen Saturation 100% 06/20/2025 11:12 AM CDT Inhaled Oxygen Concentration - - Weight 72.8 kg (160 lb 6.4 oz) 06/20/2025 11:12 AM CDT Height 149.9 cm (4' 11.02) 06/20/2025 11:12 AM CDT Body Mass Index 32.38 06/20/2025 11:12 AM CDT Plan of Treatment Upcoming Encounters Date Type Department Care Team (Latest Contact Info) Description 07/29/2025 1:30 PM CDT Hospital Encounter [facility] Operating Room [address] [place] [address] Arnol Moreau MD [address] [facility] [address] [place] [address] 07/29/2025 1:30 PM CDT - 07/29/2025 2:15 PM CDT Surgery [facility] Operating Room [address] [place] [address] Arnol Moreau MD [address] [facility] [address] [place] [address] Bilateral carpal tunnel release-hand table Scheduled Procedures Name Priority Associated Diagnoses Date/Ti me RELEASE CARPAL TUNNEL Carpal tunnel syndrome, bilateral 07/29/2025 1:30 PM CDT Health Maintenance Due Date Last Done Comments Pneumococcal vaccine <65 (1 of 2 - PCV) 1983 Zoster Vaccine (1 of 2) 2014 Breast Cancer Screening-Mammogram 11/25/2016 016 Regular Well Visit/Exam 18-64 10/02/2019 10/02/2018, 05/11/2018 Influenza Vaccine (#1) 2025 9, 09/14/2018, 09/14/2018, Additional history exists DTaP/Tdap/Td Vaccine (2 - Td or Tdap) 05/11/2028 05/11/2018 Colon Cancer Screening-Colonoscopy 02/23/2033 02/23/2023, 01/05/2013, 01/05/2013 Hepatitis B Screening Completed 02/23/2005 , 09/24/2004, 08/25/2004 Hepatitis C Screening Completed 03/05/2015 Colon Cancer Screening-CT Colonography Discontinued 02/23/2023, 01/05/2013, 01/05/2013 Colon Cancer Screening-DNA Stool Discontinued 02/23/2023, 01/05/2013, 01/05/2013 Colon Cancer Screening-FIT Discontinued 02/23, 01/05/2013, 01/05/2013 Colon Cancer Screening-Sigmoidoscopy Discontinued 02/23/2023, 01/05/2013, 01/05/2013 Depression Screening Discontinued Medical Devices Implanted Type Area Partner Integration Planner Device Identifier Shelf Expiration Date Model / Serial / Lot Filler Bone Void Norian Calcium Phosphate Fiber 3 Ml Drillable Inject Reinforced Bioresorbable Biocompatible Isothermic Sterile - [id number] Implanted:Qty: 1 on 01/31/2018 by Arnol Moreau MD at [facility] Right: Ankle Synthes I 05/18/2019 [id number] S / / [id number] Procedures Procedure Name Priority Date/Time Associated Diagnosis Comments COLONOSCOPY 02/23/2023 9:55 AM CDT DIGITAL MAMMOGRAPHY Routine 11/25/2015 1 1:33 AM [facility] SERUM HEPATITIS C AB Routine 03/05/2015 12:55 PM CDT from Last 3 Months or Most Recently Relevant to Health Maintenance Results * COLONOSCOPY (02/23/2023 9:55 AM CDT) Anatomical Region Laterality Modality Other Narrative Procedure Note Polina Rosa MD - 02/23/2023 9:55 AM CDT [facility] Patient Name: Shivani Betancur Procedure Date: 02/23/2023 9:55 AM Date of : 1965 Admit Type: Outpatient Age: 57 Gender: Female Attending MD: Polina Rosa M.D. Room: [facility] 1 Note Status: Finalized Patient [...] under direct vision. The Pediatric Colonoscope PCF-H190L [id number] was introducedthrough the anus and advanced to [...] 9:55 AM Procedure Code(s): --- Professional --- 30381, Colonoscopy, flexible; diagnostic, including collection of specimen(s) by brushing or washing, when performed (separateprocedure) Diagnosis Code(s): --- Professional --- Z12.11, Encounter for screening for malignant neoplasm of colon K64.8, Other hemorrhoids K57.30, Diverticulosis of large intestine without perforation orabscess without bleeding CPT copyright 2020 [employer]. All rights reserved. The codes documented in this report are preliminary and upon bead maker reviewmay be revised to meet current compliance requirements. Recognized by the [employer] for promoting quality in endoscopy Polina Rosa MD ENDOSCOPY PROCEDURES Final Result * DIGITAL MAMMOGRAPHY (11/25/2015 11:33 AM B[facility]) Anatomical Region Laterality Modality Breast Mammography 11/25/2015 11:3 3 AM [facility] Narrative 11/28/2015 11:13 AM [facility] Mr/Td Screening Mamm Bi Acc#: [id number] DATE OF EXAM: Nov 25 2015 ADDENDUM PLEASE SEE BELOW Performed by: CLINICAL HISTORY: Screen. RESULT: Two views of each breast were obtained. By report, a prior study was performed at [facility] and a release form has been submitted to acquire the prior exam for review. There are scattered fibroglandular densities bilaterally. No suspicious mass or calcification is seen to suggest mammographic evidence of malignancy. There is a surgical marking ring in the central upper anterior half of the right breast. Digital technology was employed plus computer-aided detection software (R2) was utilized in interpretation of these images. This facility utilizes a reminder system to notify patients of yearly mammograms. IMPRESSION: 1. NO DEFINITIVE MAMMOGRAPHIC EVIDENCE OF MALIGNANCY. 2. IF PRIOR STUDIES BECOME AVAILABLE, AN ADDENDUM WILL BE ISSUED OTHERWISE ANNUAL FOLLOW-UP IS RECOMMENDED. BI-RADS CATEGORY 1 - NEGATIVE ADDENDUM: DR. BALDWIN/CRISTINA 11/27/15 Comparison is now made to prior studies from 07/19/14 from [facility]. No interval suspicious mass or calcification has developed to suggest mammographic evidence of malignancy. Annual followup recommended. BI-RADS CATEGORY 1 - NEGATIVE Interpreting Physician: LEN BALDWIN M.D. Read on: Nov 25 2015 11:34A Transcribed by: alex On: Nov 25 2015 2:39P Approved Electronically by: LEN BALDWIN M.D. on: Nov 28 2015 11:13A Attending: RHIANNA HINOJOSA Requesting: DR RHIANNA IHNOJOSA Requesting Attending Fax: -- Attending ID: [id number] Requesting ID: [id number] Report To 1 ID: [id number] Report To 1 Name: RHIANNA HINOJOSA Report To 1 FAX: -- NextGen Order #: Procedure Note Provider, MD Kip - 03/22/2017 Mr/Td Screening Mamm Bi Acc#: [id number] DATE OF EXAM: Nov 25 2015 ADDENDUM PLEASE SEEBELOW Performed by: CLINICAL HISTORY: Screen. RESULT: Two views of each breast were obtained. By report, a prior study wasperformed at [facility] and a release form has been submittedto acquire the prior exam for review. There are scattered fibroglandulardensities bilaterally. No suspicious mass or calcification is seen tosuggest mammographic evidence of malignancy. There is a surgical markingring in the central upper anterior half of the right breast. Digitaltechnology was employed plus computer-aided detection software (R2) wasutilized in interpretation of these images. This facility utilizes [employer] system to notify patients of yearly mammograms. IMPRESSION: 1. NO DEFINITIVE MAMMOGRAPHIC EVIDENCE OF MALIGNANCY. 2. IF PRIOR STUDIES BECOME AVAILABLE, AN ADDENDUM WILL BE ISSUED OTHERWISEANNUAL FOLLOW-UP IS RECOMMENDED. BI-RADS CATEGORY 1 - NEGATIVE ADDENDUM: DR. BALDWIN/TD11/27/15 Comparison is now made to prior [facility]from [facility]. No interval suspicious mass orcalcification has developed to suggest mammographic evidence ofmalignancy. Annual followup recommended. BI-RADS CATEGORY 1 - NEGATIVE Interpreting Physician: LEN BALDWIN M.D. Read on: Nov 25 2015 11:34A Transcribed by: alex On: Nov 25 2015 2:39P Approved Electronically by: LEN BALDWIN M.D. on: Nov 28 2015 11:13A Attending: RIHANNA HINOJOSA Requesting: DR RHIANNA HINOJOSA Requesting Attending Fax: -- Attending ID: [id number] Requesting ID: [id number] Report To 1 ID: [id number] Report To 1 Name: RHIANNA HINOJOSA Report [...] Most Recently Relevant to Health Maintenance Insurance [facility]PPO Address: [address] [address] [place] [address] [facility]O Address: [address] [address] Advance Directives For more information, please contact: [phone] * Full Code (Latest Code Status on File) Date Activated Date Inactivated Comments 12/03/2024 7:18 AM 12/03/2024 1:06 PM * Full Code Date Activated Date Inactivated Comments 12/03/2024 7:18 AM 12/03/2024 7:18 AM * Full Code Date Activated Date Inactivated Comments 02/23/2023 9:56 AM 02/23/2023 5:30 PM * Full Code Date Activated Date Inactivated Comments 02/23/2023 9:56 AM 02/23/2023 9:56 AM Care Teams First Beater Relationship Specialty Start Date End Date Margarito العراقي MD [address] [place] [address] PCP - General Family Medicine 09/04/20 Raymond Vela MD [address] [place] [address] Referring Physician Obstetrics and Gynecology 08/17/21
--- OUTSIDE RECORDS SUMMARY | 2025-07-05 23:05 | XMS_ITS | Patient Health Record ---
Author Organization [facility] Address [address] [place] [address] Care Team Providers Care Environmental Planning Engineer Name Role Phone Lala Hannah Unavailable [phone] Reason For Referral No Information Medications Medication SIG (Take, Route, Frequency, Duration) Notes Start Date End Date Status Atorvastatin Calcium 20 MG Oral 01/14/2021 Active Irbesartan 75 MG Oral 01/14/2021 Ac tive Zolpidem Tartrate 10 MG Oral 01/14/2021 Active rOPINIRole HCl 2 MG Oral 01/14/2021 Active rOPINIRole HCl 1 MG Oral 01/14/2021 Active Vitamin D *Pick strength-form from [employer] for eRX* 01/14/2021 Active Metoprolol Succinate ER 25 MG Oral 01/14/2021 Active Pregabalin 75 MG Oral 01/14/2021 Ac tive LUBIPROSTONE 24 MCG CAPSULE *Reorder from [employer] for eRx and Interaction Alerts* 01/14/2021 Active Estradiol 0.5 mg Oral 01/14/2021 Ac tive Metoprolol Tartrate 50 MG Oral 01/14/2021 Active Meloxicam 15 MG Oral 01/14/2021 Act deloris Cyclobenzaprine HCl 10 MG Oral 01/14/2021 Active AZELASTINE 205.5 MCG (0.15 %) NASAL SPRAY *Reorder from [employer] for eRx and Interaction Alerts* 01/14/2021 Active DULoxetine HCl 30 MG Oral 01/14/2021 Active Aspirin Adult Low Strength 81 MG Oral 01/14/2021 Active rOPINIRole HCl 0.5 MG Oral 01/14/2021 Active Irbesartan 150 MG Oral 01/14/2021 A ctive hydroCHLOROthiazide 25 MG Oral 01/14/2021 Active Omeprazole 40 MG Oral 01/14/2021 Ac tive Narcan 4 MG/0.1ML Nasal 01/14/2021 A ctive Clobetasol Propionate 0.05 % External 01/14/2021 Active Ergocalciferol 1.25 MG (36846 UT) Oral 01/14/2021 Active amLODIPine Besylate 2.5 MG Oral 01/14/2021 Active Triamcinolone Acetonide 0.10% External 01/14/2021 Active Clindamycin Phosphate 2 % Vaginal 01/14/2021 Active HYDROcodone-Acetaminophen 5-325 MG Oral 01/14/2021 Active Estradiol 0.01 % (0.1 mg/gram) Vaginal *Pick strength-form from [employer] for eRX* 01/14/2021 Active Plan Of Treatment No Information Insurance Providers Payer Name Payer Address Payer Phone Subscriber Number Group Number Insured Name Patient Relationship to Insured Coverage Start Date Coverage End Date r Ppo [address] [address] [place] [address] [phone] [id number] DALE VICENTE Self - patient is the insured
[2025-07-05 23:06] VITALS: BP 124/87; PULSE 101; RESP 16; TEMP 36.8; O2SAT 98
--- OUTSIDE RECORDS SUMMARY | 2025-07-05 23:41 | XMS_ITS | Encounter Summary ---
Author Organization [facility] Address [address] [place] [address] Care Team Providers Care Fiber Optic Assembly Worker Name Role Phone Mendoza Parker MD Primary Care Provider [phone]- [phone] Mendoza Parker MD Primary Care Provider +- [phone] Mendoza Parker MD Primary Care Provider +1- [phone] Mendoza Parker MD Primary Care Provider +1- [phone] Mendoza Parker MD Primary Care Provider +1- [phone] Margarito العراقي MD Primary Care Provider [phone] Raymond Vela MD Unavailable [phone] Encounter Details Date Type Department Care Team (Late st Contact Info) Description 05/20/2015 Orders Only [facility] [place] [facility] [address] [place] [address] Scanning, Provider Social History Tobacco Use Types Packs/Day Years Used Date Smoking Tobacco: Former Cigarettes Q uit: 11/21/2003 Alcohol Use Standard Drinks/Week Comments No 0 (1 standard drink = 0.6 oz pur e alcohol) Comments Unknown Sex and Gender Information Value Date Recorded Sex Assigned at Not on file 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 Gender Identity Not on file Sexual Orientation Not on file documented as of this encounter Plan of Treatment Upcoming Encounters Date Type Department Care Team (Latest Contact Info) Description 07/29/2025 1:30 PM CDT Hospital Encounter [facility] Operating Room [address] [place] [address] Arnol Moreau MD [address] [place] [address] DR CHEPE Thompson [facility] [address] [place] [address] 07/29/2025 1:30 PM CDT - 07/29/2025 2:15 PM CDT Surgery [facility] Operating Room [address] [place] [address] Arnol Moreau MD [address] [place] [address] DR CHEPE Thompson [facility] [address] [place] [address] Bilateral carpal tunnel release-hand table Scheduled Procedures [...] documented as of this encounter Care Teams Fiber Optic Assembly Worker Relationship Specialty Start Date End Date Mendoza Parker MD PCP - General 02/18/17 06/12/20 Mendoza Parker MD PCP - General 11/18/15 02/17/17 Mendoza Parker MD PCP - General 06/03/15 11/17/15 Mendoza Parker MD PCP - General 03/05/13 06/02/15 Mendoza Parker MD PCP - General 06/13/20 09/03/20 Margarito العراقي MD [address] [facility] [address] PCP - General Family Medicine 09/04/20 Raymond Vela MD [address] [place] [address] Referring Physician Obstetrics and Gynecology 08/17/21 documented as of this encounter
--- OUTSIDE RECORDS SUMMARY | 2025-07-05 23:41 | XMS_ITS | Clinical Summary ---
Author Organization [facility] Address [address] [place] [address] Care Team Providers Care Scrub Woman Name Role Phone Mendoza Parker MD Primary Care Provider [phone]- [phone] Source Comments [facility],non-owned Affiliates and Associated Physician Practices is amultiple site organization consisting of ambulatory clinics and hospital sitesin [place], [place], [place] and [place]. This disclosure is being madepursuant to the Care Everywhere program and may not contain all information available regarding this patient. 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
--- OUTSIDE RECORDS SUMMARY | 2025-07-05 23:41 | XMS_ITS | Encounter Summary ---
Author Organization [facility] Address [address] [place] [address] Care Team Providers Care Radio Interference Supervisor Name Role Phone Mendoza Parker MD Primary Care Provider [phone]- [phone] Mendoza Parker MD Primary Care Provider [phone]- [phone] Mendoza Parker MD Primary Care Provider +1- [phone] Mendoza Parker MD Primary Care Provider +1- [phone] Mendoza Parker MD Primary Care Provider [phone]- [phone] Margarito العراقي MD Primary Care Provider Raymond Vela MD Unavailable [phone] Encounter Details Date Type Department Care Team (Late st Contact Info) Description 03/07/2015 Orders Only [facility] [place] [facility] Information Management [address] [place] [address] Scanning, Provider Social History Tobacco Use Types Packs/Day Years Used Date Smoking Tobacco: Former Cigarettes Q uit: 11/21/2003 Alcohol Use Standard Drinks/Week Comments No 0 (1 standard drink = 0.6 oz pur e alcohol) Comments Unknown Sex and Gender Information Value Date Recorded Sex Assigned at Not on file 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 Gender Identity Not on file Sexual Orientation Not on file documented as of this encounter Plan of Treatment Upcoming Encounters Date Type Department Care Team (Latest Contact Info) Description 07/29/2025 1:30 PM CDT Hospital Encounter [facility] Operating Room 1 [place] [address] Arnol Moreau MD [address] [place] [address] DR CHEPE Thompson [facility] [address] [place] [address] 07/29/2025 1:30 PM CDT - 07/29/2025 2:15 PM CDT Surgery [facility] Operating Room [address] [place] [address] Arnol Moreau MD [address] [place] [address] DR CHEPE Thompson [facility] [address] [place] [address] Bilateral carpal tunnel release-hand table Scheduled Procedures [...] documented as of this encounter Care Teams Radio Interference Supervisor Relationship Specialty Start Date End Date Mendoza Parker MD PCP - General 02/18/17 06/12/20 Mendoza Parker MD PCP - General 11/18/15 02/17/17 Mendoza Parker MD PCP - General 06/03/15 11/17/15 Mendoza Parker MD PCP - General 03/05/13 06/02/15 Mendoza Parker MD PCP - General 06/13/20 09/03/20 Margarito العراقي MD [address] [facility] [place] [address] PCP - General Family Medicine 09/04/20 Raymond Vela MD [address] [place] [address] Referring Physician Obstetrics and Gynecology 08/17/21 documented as of this encounter
--- OUTSIDE RECORDS SUMMARY | 2025-07-05 23:41 | XMS_ITS | Encounter Summary ---
Author Organization [facility] Address [address] [place] [address] Phone Care Team Providers Care Correctional Cook Name Role Phone Mendoza Parker MD Primary Care Provider [phone]- [phone] Mendoza Parker MD Primary Care Provider +- [phone] Margarito العراقي MD Primary Care Provider [phone] Raymond Vela MD Unavailable [phone] Encounter Details Date Type Department Care Team (Late st Contact Info) Description 01/06/2018 Orders Only [facility] [address] [place] [address] Mendoza Parker MD [address] [place] [address] Social History Tobacco Use Types Packs/Day Years Used Date Smoking Tobacco: Former Smokeless Tobacco: Former Alcohol Use Standard Drinks/Week Comments No 0 (1 standard drink = 0.6 oz pur e alcohol) Comments Unknown Sex and Gender Information Value Date Recorded Sex Assigned at Not on file 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:46 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 SPECIALIST Gender Identity Not on file Sexual Orientation Not on file documented as of this encounter Plan of Treatment Upcoming Encounters Date Type Department Care Team (Latest Contact Info) Description 07/29/2025 1:30 PM CDT Hospital Encounter [facility] Operating Room 1 [place] [address] Arnol Moreau MD [address] [place], [place] [address] 07/29/2025 1:30 PM CDT - 07/29/2025 2:15 PM CDT Surgery [facility] Operating Room [address] [place] [address] Arnol Moreau MD [address] [place] [address] [address] [place] [address] Bilateral carpal tunnel release-hand table Scheduled Procedures Name Priority Associated Diagnoses Date/Ti me RELEASE CARPAL TUNNEL Carpal tunnel syndrome, bilateral 07/29/2025 1:30 PM CDT documented as of this encounter Procedures Procedure Name Priority Date/Time Associated Diagnosis Comments SCAN - LABS 01/06/2018 10:58 AM MEDIA 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 SPECIALIST documented in this encounter Results * SCAN - LABS (01/06/2018 10:58 AM MEDIA 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 SPECIALIST) Mendoza Parker MD Final Resu lt documented in this encounter Visit Diagnoses Not on filedocumented in this encounter Additional Health Concerns Infection Onset Date Last Indicated Resolved Time COVID: Suspected 02/20/2024 02/20/2024 02/20/2024 2:54 PM CDT documented as of this encounter Care Teams Correctional Cook Relationship Specialty Start Date End Date Mendoza Parker MD PCP - General 02/18/17 06/12/20 Mendoza Parker MD PCP - General 06/13/20 09/03/20 Margarito العراقي MD [address] [place] [address] PCP - General Family Medicine 09/04/20 Raymond Vela MD [address] [place] [address] Referring Physician Obstetrics and Gynecology 08/17/21 documented as of this encounter
--- OUTSIDE RECORDS SUMMARY | 2025-07-05 23:42 | XMS_ITS | Encounter Summary ---
Author Organization [facility] Address [address] [place] [address] Phone Care Team Providers Care Puzzle Assembler Name Role Phone Margarito العراقي MD Primary Care Provider [phone] Raymond Vela MD Unavailable [phone] Encounter Details Date Type Department Care Team (Late st Contact Info) Description 04/12/2025 Therapy [facility] [address] Advanced [address] 5th [place] [address] [place] [address] Urbano Delacruz MD [address] [place] [address] Age-related osteoporosis without current pathological [...] on file Legal Sex Female 12:46 AM AGGREGATE CONVEYOR OPERATOR Gender Identity Not on file Sexual Orientation Not on file documented as of this encounter Plan of Treatment Upcoming Encounters Date Type Department Care Team (Latest Contact Info) Description 07/29/2025 1:30 PM CDT Hospital Encounter [facility] Operating Room 1 [place] [address] Arnol Moreau MD [address] CHEPE Thompson [facility] [address] [place] [address] 07/29/2025 1:30 PM CDT - 07/29/2025 2:15 PM CDT Surgery [facility] Operating Room [address] [place] [address] Arnol Moreau MD [address] CHEPE Thompson [facility] [address] [place] [address] Bilateral carpal tunnel release-hand table Scheduled Orders [...] syndrome documented in this encounter Care Teams Puzzle Assembler Relationship Specialty Start Date End Date Margarito العراقي MD [address] [place] [address] PCP - General Family Medicine 09/04/20 Raymond Vela MD [address] [place] [address] Referring Physician Obstetrics and Gynecology 08/17/21 documented as of this encounter
--- OUTSIDE RECORDS SUMMARY | 2025-07-05 23:42 | XMS_ITS | Encounter Summary ---
Author Organization [facility] Address [address] [place] [address] Care Team Providers Care Cna Ltc Name Role Phone Mendoza Parker MD Primary Care Provider [phone]- [phone] Mendoza Parker MD Primary Care Provider +- [phone] Mendoza Parker MD Primary Care Provider [phone]- [phone] Mendoza Parker MD Primary Care Provider [phone]- [phone] Mendoza Parker MD Primary Care Provider [phone]- [phone] Margarito العراقي MD Primary Care Provider [phone] Raymond Vela MD Unavailable [phone] Encounter Details Date Type Department Care Team (Late st Contact Info) Description 01/15/2014 Orders Only [facility] [place] Health Information Management [address] [place] [address] Scanning, Provider Social History Tobacco Use Types Packs/Day Years Used Date Smoking Tobacco: Former Cigarettes Q uit: 11/21/2003 Alcohol Use Standard Drinks/Week Comments No 0 (1 standard drink = 0.6 oz pur e alcohol) Comments Unknown Sex and Gender Information Value Date Recorded Sex Assigned at Not on file Legal Sex Female 12:46 AM ARTS THERAPIST Gender Identity Not on file Sexual Orientation Not on file documented as of this encounter Plan of Treatment Upcoming Encounters Date Type Department Care Team (Latest Contact Info) Description 07/29/2025 1:30 PM CDT Hospital Encounter [facility] Operating Room 1 [place] [address] Arnol Moreau MD [address] [place] [address] DR CHEPE Thompson [facility] [address] [place] [address] 07/29/2025 1:30 PM CDT - 07/29/2025 2:15 PM CDT Surgery [facility] Operating Room 1 [place] [address] Arnol Moreau MD [address] [place] [address] DR CHEPE Thompson [facility] [address] [place] [address] Bilateral carpal tunnel release-hand table Scheduled Procedures [...] documented as of this encounter Care Teams Cna Ltc Relationship Specialty Start Date End Date Mendoza Parker MD PCP - General 02/18/17 06/12/20 Mendoza Parker MD PCP - General 11/18/15 02/17/17 Mendoza Parker MD PCP - General 06/03/15 11/17/15 Mendoza Parker MD PCP - General 03/05/13 06/02/15 Mendoza Parker MD PCP - General 06/13/20 09/03/20 Margarito العراقي MD [address] [place] [address] PCP - General Family Medicine 09/04/20 Raymond Vela MD [address] [place] [address] Referring Physician Obstetrics and Gynecology 08/17/21 documented as of this encounter
--- OUTSIDE RECORDS SUMMARY | 2025-07-05 23:42 | XMS_ITS | Continuity of Care Document ---
Author Organization [facility] Address [address] [place] [address] [place] [address] Phone Care Team Providers Care Automatic Car Wash Attendant Name Role Phone Margarito العراقي MD Unavailable [...] route every bedtime 2 MG - Active Vitamin D2 1,250 mcg (50,000 unit) capsule take one capsule orally once per week - Active Lipitor 20 mg tablet take 1 Tablet by oral route every day 20 MG - Active hydrochlorothiazide 25 mg tablet take 1 tablet by oral route every day 25 MG - Active Lyrica 75 mg capsule take [...] for pain, avoid driving or operate machines irbesartan 150 mg tablet take 1 tablet b y oral route every day 150 MG - Active metoprolol tartrate 25 mg tablet take 1 tablet by oral route 2 times every day 25 MG - Active Aspir-81 mg tablet,delayed release take 1 tablet by oral route every day - Active Ambien 10 mg tablet take [...] Providers Copied on Encounter OFFICE/OUTPA TIENT VISIT, [facility], [address] [place], [place] [address]jose eduardo [facility] [place], [address], [place] tel:[phone] [facility], [place], [facility] abd pain1 (chief complaint) Generalized abdominal pain 5 Malcom [address], [place], [place], [address] , [place]. tel:[phone] OFFICE/OUTPA TIENT VISIT, EST [facility], [place], [facility], [address], [place], [place], [address], [place] [phone] [facility] [place] glucose1 (chief complaint) abd pain (chief complaint) UTI1 (chief complaint) Drug induced constipationColitis HyperglycemiaAcute cystitis without hematuria 4 Mal[address], [place], [place], [address] , [place]. [phone] OFFICE/OUTPA TIENT VISIT, [facility], [address] [place], [address], [place] tel:[phone] [facility], [place] rib pain1 (chief complaint) anxiety1 (chief complaint) fatigue1 (chief complaint) Upper abdominal painFatigueGenerali zed Anxiety DisorderTobacco use 4 Malcom [address], [place], [place], [address] , [place]. tel:[phone] OFFICE/OUTPA TIENT VISIT, EST [facility], [place], [facility], [address] [place], [address], [place] tel:[phone] [facility] [place] neck pain1 (chief complaint) Tension headacheOther muscle spasm Jul- 4 Malcom [address], [place], [place], [address] , [place]. tel:[phone] PREV VISIT, EST, AGE 40-64 [facility], [place], [facility], [address] [place], [address], [place] tel:[phone] [facility] [place] physical (chief complaint) Encounter for general adult medical exam w abnormal findingsOsteoporosi sEssential (primary) hypertensionRestles s legs syndromeMixed hyperlipidemiaFibro myalgiaGeneralized Anxiety DisorderTobacco use 4 Malcom P[address]. [address], [place], [place], [address] , [place]. tel:[phone] OFFICE/OUTPA TIENT VISIT, [facility], [address], [place], [place], [address], [place] tel:[phone] [facility] [place] low back pain1 (chief complaint) osteopenia 1 (chief complaint) HLP (chief complaint) swelling1 (chief complaint) HTN (chief complaint) Mixed hyperlipidemiaOsteo porosisEssential (primary) hypertensionMuscle spasm of backEdema 4 Malcom P[address]. [address], [place], [place], [address] , [place]. tel:[phone] OFFICE/OUTPA TIENT VISIT, [facility], [address], [place], [place], [address], [place] tel:[phone] [facility] [place] RLS (chief complaint) bowel1 (chief complaint) Restless legs syndromeChange in bowel habit 3 Malcom P[address]. [address], [place], [place], [address] , [place]. tel:[phone] PREV VISIT, EST, AGE 40-64 [facility], [place], [address], [place], [place], [address], [place] tel:[phone] [facility] [place] physical (chief complaint) Encounter for general adult medical exam w abnormal findingsOsteoporosi sMixed hyperlipidemiaGener alized Anxiety DisorderFibromyalgi aRestless legs syndromeAllergic rhinitis due to pollenEssential (primary) hypertension 3 Mal[address], [place], [place], [address] , [place]. tel:[phone] OFFICE/OUTPA TIENT VISIT, [facility], [address], [place], [place], [address], [place] tel:[phone] [facility] [place] sinus allergy1 (chief complaint) osteoporos is1 (chief complaint) RLS (chief complaint) anxity1 (chief complaint) HTN (chief complaint) OsteoporosisRestles s legs syndromeGeneralized Anxiety DisorderEssential (primary) hypertensionAllergi c rhinitis due to pollenMetabolic syndrome 3 Mal[address], [place], [place], [address] , [place]. tel:[phone] OFFICE/OUTPA TIENT VISIT, EST [facility], [place], [facility], [address] [place], [address], [place] tel:[phone] [facility] [place] HLP (chief complaint) heel pain1 (chief complaint) osteoporos is1 (chief complaint) insulin1 (chief complaint) Mixed hyperlipidemiaOsteo porosisPain in left footHyperglycemia 2 [address], [place], [place], [address] , [place]. tel:[phone] PREV VISIT, EST, AGE 40-64 [facility], [place], [facility], [address] [place], [address], [place] tel:[phone] [facility] [place] physical (chief complaint) Encounter for general adult medical examination without abnormal findings 2 Mal[address], [place], [place], [address] , [place]. tel:[phone] OFFICE/OUTPA TIENT VISIT, EST [facility], [place], [address] [place], [place], [address], [place] tel:[phone] [facility] [place] RLS1 (chief complaint) insomnia1 (chief complaint) sleep apnea1 (chief complaint) osteoporos is (chief complaint) sinus allergy1 (chief complaint) Restless legs syndromeInsomniaOst eoporosisSleep apneaAllergic rhinitisInconclusiv e mammogram 2 Mal[address], [place], [place], [address] , [place]. tel:[phone] OFFICE/OUTPA TIENT VISIT, EST [facility], [place], [address] [place], [address], [place] tel:[phone] [facility] [place] glucose1 (chief complaint) urine1 (chief complaint) anxiety1 (chief complaint) pain (chief complaint) Mixed incontinenceGeneral ized Anxiety DisorderFibromyalgi aInconclusive mammogramHyperglyce leidy 2 Mal[address], [place], [place], [address] , [place]. tel:[phone] OFFICE/OUTPA TIENT VISIT, [facility], [address] , [place], [place], [address], [place] tel:[phone] [facility] [place] glucose1 (chief complaint) HTN (chief complaint) incontinen ce1 (chief complaint) sleep apnea1 (chief complaint) Essential (primary) hypertensionMixed incontinenceSleep apneaHyperglycemia 1 Mal[address] [facility], [place], [place], [address] , [place]. tel:[phone] OFFICE/OUTPA TIENT VISIT, [facility], [address], [place], [place], [address], [place] tel:[phone] [facility] [place] HTN (chief complaint) HLP (chief complaint) RLS (chief complaint) pain (chief complaint) Generalized Anxiety DisorderTachycardia HyperlipidemiaEssen tial (primary) hypertensionFibromy algiaRestless legs syndrome 1 Mal[address] [facility], [place], [place], [address] , [place]. tel:[phone] OFFICE/OUTPA TIENT VISIT, [facility], [address], [place], [place], [address], [place] tel:[phone] [facility] [place] tachycardi a1 (chief complaint) fibromyalg ia1 (chief complaint) HLP (chief complaint) glucose1 (chief complaint) RLS (chief complaint) anxiety1 (chief complaint) TachycardiaEssentia l (primary) hypertensionFibromy algiaGeneralized Anxiety DisorderRestless legs syndromeHyperglycem iaHyperlipidemiaOst eoporosis 1 Mal[address], [place], [place], [address] , [place]. [phone] PREV VISIT, EST, AGE 40-64 [facility] [place], [address], [place], [place], [address], [place] tel:[phone] [facility] [place] PHysical (chief complaint) Encounter for general adult medical examination without abnormal findings 1 Malcom [address], [address], [place], [place], [address] , [place]. [phone] OFFICE/OUTPA TIENT VISIT, EST [facility] [place], [address], [place], [place], [address], [place] tel:[phone] [facility] fibromyalg ia1 (chief complaint) anxiety1 (chief complaint) HTN (chief complaint) sleep apnea1 (chief complaint) Essential (primary) hypertensionFibromy algiaGeneralized Anxiety DisorderInsomniaSle ep apneaRestless legs syndrome 0 Malcom [address], [address], [place], [place], [address] , [place]. tel:[phone] OFFICE/OUTPA TIENT VISIT, EST [facility], [place], [address], [place], [place], [address], [place] tel:[phone] [facility] [place] allergy1 (chief complaint) tobacco (chief complaint) Allergic rhinitisTobacco use 0 Malcom [address], [address], [place], [place], [address] , [place]. tel:[phone] OFFICE/OUTPA TIENT VISIT, EST [facility], [place], [address] [place], [address], [place] tel:[phone] [facility] flank pain1 (chief complaint) Acute pyelonephritis 0 Mal[address], [address], [place], [place], [address] , [place]. tel:[phone] Referring Provider: Margarito العراقي [address], [place], [place], [address]. tel:[phone] OFFICE/OUTPA TIENT VISIT, [facility], [address], [place], [place], [address], [place] tel:[phone] [facility] HTN (chief complaint) HLP (chief complaint) fibromyalg ia1 (chief complaint) tobacco1 (chief complaint) Essential (primary) hypertensionFibromy algiaTobacco useHyperlipidemia 0 Malcom P[address]el. [address], [place], [place], [address] , [place]. tel:[phone] Referring Provider: Saba [address], [place], [place], [address]. tel:[phone] OFFICE/OUTPA TIENT VISIT, [facility], [address], [place], [place], [address], [place] tel:[phone] [facility] [place] HTN (chief complaint) HTN (chief complaint) Urinary tract infectionEssential (primary) hypertension 0 Malcom P[address]el. [address], [place], [place], [address] , [place]. tel:[phone] Referring Provider: Saba [address], [place], [place], [address]. tel:[phone] OFFICE/OUTPA TIENT VISIT, [facility], [address], [place], [place], [address], [place] tel:[phone] [facility] [place] HTN (chief complaint) HLP (chief complaint) osteoporos is1 (chief complaint) Essential (primary) hypertensionTachyca rdiaOsteoporosisHyp erlipidemia 0 Malcom [address], [place], [place], [address] , [place]. tel:[phone] Referring Provider: Saba [address], [place], [place], [address]. tel:[phone] OFFICE/OUTPA TIENT VISIT, [facility], [address], [place], [place], [address], [place] tel:[phone] [facility] [place] HTN (chief complaint) alcohol1 (chief complaint) TachycardiaEssentia l (primary) hypertensionAlcohol dependence, uncomplicated 0 Malcom [address], [place], [place], [address] , [place]. tel:[phone] Referring Provider: Margarito العراقي, [address], [place], [place], [address]. tel:[phone] OFFICE/OUTPA TIENT VISIT, [facility], [address], [place], [place], [address], [place] tel:[phone] [facility] [place] HTN (chief complaint) HLP (chief complaint) fibromyalg ia1 (chief complaint) HyperlipidemiaTachy cardiaEssential (primary) hypertensionEncount er for screening for other viral diseasesInsomnia 0 Malcom [address], [place], [place], [address] , [place]. tel:[phone] Referring Provider: Saba [address], [place], [place], [address]. tel:[phone] OFFICE/OUTPA TIENT VISIT, [facility], [address], [place], [place], [address], [place] tel:[phone] [facility] [place] htn (chief complaint) HLp (chief complaint) osteoporos is1 (chief complaint) Essential (primary) hypertensionTachyca rdiaHeadacheOsteopo rosisHyperlipidemia 0 [address], [place], [place], [address] , [place]. tel:[phone] Referring Provider: Saba [address], [place], [place], [address]. tel:[phone] PREV VISIT, NEW, AGE 40-64 [facility] [place], [address], [place], [place], [address], [place] tel:[phone] [facility] [place] PHysical (chief complaint) Encntr for general adult medical exam w/o abnormal findings 0 Malcom P[address]. [address], [place], [place], [address] , [place]. tel:[phone] Referring Provider: Margarito S[address], [place], [place], [address]. tel:[phone] Family History Family Member Type Diagnosis Age At Onset Sister Problem (finding) Diabetes mellitus Mother Problem (finding) throat CA (Cause Of Cherri th) 38 Father Problem (finding) of CAD (Cause Of D eath) 89 Payers Payer name Insurance type Covered democrat ID Authoriza tisoni(s) [facility] CI [id number] Social History Type Description Quantity Date Captured [...] by insurance so she went back to [facility]. Pt also saw her GI doctor recently [...] counseling completed Referral Referred To: Varun Coffey [address] [place], [id number] Ordered: Referrals: Varun Coffey. Evaluate and treat ordered Referral Ordered: CT ABDOMEN&PELVIS W/CONTRAST ordered Referral Ordered: DXA BONE DENSITY, AXIAL ordered Referral Ordered: [facility] -[facility] Service Providers : Credit Advisor (related to Pain in left foot) ordered Referral Referred To: MARIBEL FINE [address] [facility] [address] [place], [place], [phone] Ordered: Referrals: Podiatric Medicine & Surgery Service Providers : Credit Advisor. MARIBEL FINE. Evaluate and treat ordered Referral [...] by insurance so she went back to [facility]. Pt also saw her GI doctor recently [...] feels fatigue sleep apnea1 Pt has sleep rod straightener ea Pt uses cpap nightly. Her sleep [...] off lyrica. Pt needs form completed [place] exemption due to personal disability glucose1 Pt [...] of urine sleep apnea Pt has sleep rod straightener ea Pt uses cpap nightly. Pt doing [...] now by cardiology. Pt was referred to [facility] but she changed her mind and decided to stay with her current procurement buyer Pt states that her bp and tachycardia [...] any ramirez chest pain Pt is seeing procurement buyer but she has hard time getting in [...] hypotension . sleep apnea1 Pt has sleep rod straightener ea Pt uses cpap nightly pt sees [...] headache Instructions Date Instruction Additional Infor sergo Stop smoking. Related to Essen tial (primary) hypertension Follow a low sodium diet. Relate d to Essential (primary) hypertension Special diet education Related t o Body mass index (BMI) 33.0-33.9, adult Assessments Type Assessment Date assessment Generalized abdominal pain Mental Status Date Cognitive Assessment Orientation - [place] ed to time, place, person, situation.
--- OUTSIDE RECORDS SUMMARY | 2025-07-05 23:42 | XMS_ITS | Encounter Summary ---
Author Organization [facility] Address [address] [place] [address] Care Team Providers Care Tube Washer Name Role Phone Mendoza Parker MD Primary Care Provider [phone] Mendoza Parker MD Primary Care Provider [phone] Mendoza Parker MD Primary Care Provider [phone] Mendoza Parker MD Primary Care Provider [phone] Mendoza Parker MD Primary Care Provider + [phone] Mendoza Parker MD Primary Care Provider [phone] Margarito العراقي MD Primary Care Provider [phone] Raymond Vela MD Unavailable [phone] Encounter Details Date Type Department Care Team (Late st Contact Info) Description 02/03/2007 Orders Only [facility] [address] [place] [address] Scanning, Provider Social History Tobacco Use Types Packs/Day Years Used Date Smoking Tobacco: Never Assessed Comments Unknown Sex and Gender Information Value Date Recorded Sex Assigned at Not on file 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 Operating [address] [place] [address] Arnol Moreau MD [address] [place] [address] [address] [address] 07/29/2025 1:30 PM CDT - 07/29/2025 2:15 PM CDT Surgery [facility] [address] [place] [address] Arnol Moreau MD [address] [place] [address] [address] [place] [address] Bilateral carpal tunnel release-hand table Scheduled Procedures [...] documented as of this encounter Care Teams Tube Washer Relationship Specialty Start Date End Date Mendoza Parker MD PCP - General 02/18/17 06/12/20 Mendoza Parker MD PCP - General 11/18/15 02/17/17 Mendoza Parker MD PCP - General 06/03/15 11/17/15 Mendoza Parker MD PCP - General 03/05/13 06/02/15 Mendoza Parker MD PCP - General 08/20/08 03/04/13 Mendoza Parker MD PCP - General 06/13/20 09/03/20 Margarito العراقي MD [address] [place] [id number] PCP - General Family Medicine 09/04/20 Raymond Vela MD [address] [place] [address] Referring Physician Obstetrics and Gynecology 08/17/21 documented as of this encounter
--- OUTSIDE RECORDS SUMMARY | 2025-07-05 23:42 | XMS_ITS | Continuity of Care Document ---
Author Organization [facility] Address [address] [place] [address] Phone Care Team Providers Care Inspector Plug Seam Name Role Phone Fischer OD, Dayday Unavailable [...] Copied on Encounter Office/outpat ient Visit, [facility], [address] [place] [address] [address], [place], [place], [address], [place] tel:[phone] [facility] No Information 9-201 0 Fischer OD Dayday. [address], [place], [address], [place]. tel:[phone] [facility], [address], [place], [place], [address], [place] tel:[phone] [facility] No Information 2-201 0 Fischer OD Dayday. [address], [address], [place], [address], [place]. tel:[phone] Referring Provider: Dayday Fischer OD A, [address], [place], [address]. tel:[phone] Office/outpat ient Visit, [facility], [address] [place] [address] [address], [place], [place], [address], tel:[phone] [facility] No Information Sep-2 6-200 9 Fischer OD Dayday. [address] [place], [place] [address]ate [address], [place], [address], [place]. tel:[phone] Office/outpat ient Visit, [facility], [address] [place] [address] [address], [place], [place], [address], tel:[phone] [facility] No Information Oct-0 2-200 8 Fischer OD Dayday. [facility] [address], [place], [address], [place]. tel:[phone] [facility], [address] [place] [address] [address], [place], [place], [address], [place] tel:[phone] SEC [facility] No Information Apr-0 4-200 8 Fischer OD Dayday. [address] [place] [address] [address], [place], [address], [place]. tel:[phone] Referring Provider: Dayday Fischer OD A, [address] [place], [place] [address]ate [address], [place], [address]. tel:[phone] [facility], [address] [place] [address] [address], [place], [place], [address], [place] tel:[phone] [facility] No Information Mar-1 3-200 8 Fischer OD Dayday. [address] [place], [place] [address]ate [address], [place], [address], [place]. tel:[phone] Family History Family Member Type Diagnosis Age At Onset No Information Payers Payer name Insurance type Covered constitution party ID Jany hernandez(s) [facility] [place] State [id number] Social History Type Description Quantity Date Captured [...]
--- OUTSIDE RECORDS SUMMARY | 2025-07-05 23:42 | XMS_ITS | Encounter Summary ---
Author Organization [facility] Medical Group Address [address] [place] [address] Care Team Providers Care Inside Account Executive Name Role Phone Mendoza Parker MD Primary Care Provider +1- [phone] Mendoza Parker MD Primary Care Provider +- [phone] Mendoza Parker MD Primary Care Provider +- [phone] Mendoza Parker MD Primary Care Provider +- [phone] Mendoza Parker MD Primary Care Provider + [phone] Mendoza Parker MD Primary Care Provider +1- [phone] Margarito العراقي MD Primary Care Provider +-[phone] Raymond Vela MD Unavailable [phone] Encounter Details Date Type Department Care Team (Late st Contact Info) Description 01/31/2012 Orders Only [facility] Health Information Management [address] [place] [address] Scanning, Provider Social History Tobacco Use Types Packs/Day Years Used Date Smoking Tobacco: Never Assessed Comments Unknown Sex and Gender Information Value Date Recorded Sex Assigned at Not on file 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 Gender Identity Not on file Sexual Orientation Not on file documented as of this encounter Plan of Treatment Upcoming Encounters Date Type Department Care Team (Latest Contact Info) Description 07/29/2025 1:30 PM CDT Hospital Encounter [facility] Operating Room 1 [place] [address] Arnol Moreau MD [address] [place] [address] [address] [address] 07/29/2025 1:30 PM CDT - 07/29/2025 2:15 PM CDT Surgery [facility] Operating Room 1 [place] [address] Arnol Moreau MD [address] [place] [address] [address] [place] [address] Bilateral carpal tunnel release-hand table Scheduled Procedures [...] documented as of this encounter Care Teams Inside Account Executive Relationship Specialty Start Date End Date Mendoza [...] DR [address] [address] PCP - General Family Medicine 09/04/20 Raymond Vela MD [address] [place] [address] Referring Physician Obstetrics and Gynecology 08/17/21 documented as of this encounter
--- OUTSIDE RECORDS SUMMARY | 2025-07-05 23:42 | XMS_ITS | Encounter Summary ---
Author Organization [facility] Medical Group Address [address] [place] [address] Care Team Providers Care Safety Inspector Name Role Phone Mendoza Parker MD Primary Care Provider +1- [phone] Mendoza Parker MD Primary Care Provider +- [phone] Mendoza Parker MD Primary Care Provider +- [phone] Mendoza Parker MD Primary Care Provider +- [phone] Mendoza Parker MD Primary Care Provider + [phone] Mendoza Parker MD Primary Care Provider +1- [phone] Margarito العراقي MD Primary Care Provider +[phone] Raymond Vela MD Unavailable [phone] Encounter Details Date Type Department Care Team (Late st Contact Info) Description 02/16/[address] 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 Gender Identity Not on file Sexual Orientation Not on file documented as of this encounter Plan of Treatment Upcoming Encounters Date Type Department Care Team (Latest Contact Info) Description 07/29/2025 1:30 PM CDT Hospital Encounter [facility] Operating Room [address] [place] [address] Arnol Moreau MD [address] [place] [address] [address] [address] 07/29/2025 1:30 PM CDT - 07/29/2025 2:15 PM CDT Surgery [facility] Operating Room [address] [place] [address] Arnol Moreau MD [address] [place] [address] [address] [place] [address] Bilateral carpal tunnel release-hand table Scheduled Procedures [...] documented as of this encounter Care Teams Safety Inspector Relationship Specialty Start Date End Date Mendoza Parker MD PCP - General 02/18/17 06/12/20 Mendoza Parker MD PCP - General 11/18/15 02/17/17 Mendoza Parker MD PCP - General 06/03/15 11/17/15 Mendoza Parker MD PCP - General 03/05/13 06/02/15 Mendoza Parker MD PCP - General 08/20/08 03/04/13 Mendoza Parker MD PCP - General 06/13/20 09/03/20 Margarito العراقي MD [address] [place] [address] PCP - General Family Medicine 09/04/20 Raymond Vela MD [address] [place] [address] Referring Physician Obstetrics and Gynecology 08/17/21 documented as of this encounter
--- OUTSIDE RECORDS SUMMARY | 2025-07-05 23:42 | XMS_ITS | Clinical Summary ---
Author Organization [facility] [address] Address [address] [place] [address] Phone Care Team Providers Care Medical Accounts Receivable Specialist Name Role Phone Margarito العراقي MD Primary Care Provider [phone] Raymond Vela MD Unavailable [phone] Allergies Active Allergy Reactions Criticality Noted Date [...] today. Assessment & Plan (12/03/2024 8:53 AM DOCTOR OF NURSE ANESTHESIA): Mild elevation noted in 2022. Will plan repeat CMP and order placed for the patient to do the blood test Dyspepsia 11/22/2024 Assessment & Plan (12/03/2024 8:50 AM DOCTOR OF NURSE ANESTHESIA): Chronic symptoms which I think has functional element. Will schedule EGD for evaluation. Smoking 05/07/2024 Dizziness 01/30/2024 Palpitations 05/02/2023 Encounter for screening colonoscopy 01/20/2023 Overview (01/20/2023): Added automatically from request for surgery [id number] Carpal tunnel syndrome, bilateral 10/11/2021 Arthritis of [...] treatment. Assessment & Plan (12/03/2024 8:51 AM DOCTOR OF NURSE ANESTHESIA): Continue Amitiza. Add fiber supplements daily. Patient [...] going to rehab at a facility in [facility]. Patient does not want to leave her family and does not want to go. Advised patient to contact her insurance company regarding an outpatient treatment in this immediate area that she can attend his stay at home. Smoking trying to quit 01/16/2019 Assessment & Plan (01/12/2020 2:49 PM DOCTOR OF NURSE ANESTHESIA): Patient continues with trying to quit smoking [...] suicide. Assessment & Plan (01/16/2019 5:58 PM DOCTOR OF NURSE ANESTHESIA): Patient requested Chantix I gave her coupon and Rx we sent in again. Ptosis of eyelid 02/14/2018 NEO (obstructive sleep apnea) 09/08/2017 Assessment & Plan (01/12/2020 2:49 PM DOCTOR OF NURSE ANESTHESIA): Patient advised me she is using a [...] fibromyalgia. Assessment & Plan (12/03/2024 8:54 AM DOCTOR OF NURSE ANESTHESIA): I think much of her abdominal pain symptoms and dyspepsia is related to fibromyalgia with functional elements Assessment & Plan (02/03/2019 1:50 PM CDT): Patient's multiple pain she is under care of Pain Clinic she also sees Neurology. Osteoporosis 09/30/2014 Assessment & Plan (05/13/2018 1:48 PM CDT): Patient managed by Endocrinology [facility] she advised me she will be starting [...] as palpitations. At this time request a cardiac cath technologist for 2 weeks. Assessment & Plan (01/12/2020 2:48 PM DOCTOR OF NURSE ANESTHESIA): Patient advised me she is no longer taking Bystolic she is seeing Dr. Margarito العراقي in [place] he is a family practitioner. 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 Assessment & Plan (01/16/2019 5:55 PM DOCTOR OF NURSE ANESTHESIA): Hypertension well controlled with medication Bystolic 40 mg daily. However she has developed greater fatigue dry mouth. This time reduce Bystolic to 20 mg daily. Start spironolactone as add on the next 7 days. Patient to monitor blood pressure I will see her back in the next 3 months. Assessment & Plan (01/06/2019 6:03 PM DOCTOR OF NURSE ANESTHESIA): Hypertension is unchanged. Continue current treatment regimen. Dietary sodium restriction. Weight loss. Continue current medications. Blood pressure will be reassessed at the next regular appointment. Assessment & Plan (09/26/2018 12:48 PM DOCTOR OF NURSE ANESTHESIA): Patient's certain regarding elevated blood pressure which [...] later it does not help. Patient has [place] available from her pain clinic dosage of [...] 01/12/2020 Assessment & Plan (01/16/2019 5:57 PM DOCTOR OF NURSE ANESTHESIA): Patient's history of fatigue depression is much [...] some palpitations concurrently. She did contact her gravel wheeler referred on to primary care. With this [...] (01/19/2018): Added automatically from request for surgery [id number] Right ankle pain 01/19/2018 06/14/2019 Overview (01/19/2018): Added automatically from request for surgery [id number] Hospital discharge follow-up 08/14/2017 05/13/2018 Assessment & [...] have remained had 100-106. Patient referred to [facility] further evaluation for repeat chest pain throughout [...] Description 06/20/2025 11:15 AM CDT Office Visit [facility] [address] [place] [address] [address] [place] [address] Marcia Haider MD Obstructive sleep apnea syndrome (Primary Dx); Hypersomnia; Chronic insomnia; Obesity (BMI 30-39.9) 05/27/2025 Telephone [facility] [address] [place] [address] Debbi No MA 05/27/2025 Telephone [facility] [address] [place] [phone] Debbi No MA 05/01/2025 Telephone [facility] [address] [place] [address] [place] [id number] Marlee Miller RN 04/19/2025 9:45 AM CDT Office Visit [facility] Medical [facility] [address] [place] [address] Arnol Moreau MD Carpal tunnel syndrome, bilateral (Primary Dx); Traumatic complete tear of right rotator cuff, initial encounter; Arthritis of right acromioclavicular joint; Biceps tendinitis of right upper extremity 04/19/2025 Telephone [facility] [address] [place] [phone] Arnol Moreau MD Surgical Clearance 04/12/2025 Therapy [facility] [address] [place] [phone] Urbano Delacruz MD Age-related osteoporosis without current pathological fracture (Primary Dx) 04/12/2025 Results Follow-Up [facility] [address] [place] [phone] Urbano Delacruz MD PTH, Vitamin D 25 [...] on file Legal Sex Female 12:46 AM DOCTOR OF NURSE ANESTHESIA Gender Identity Not on file Sexual Orientation Not on file Obstetrics History Last Filed Vital Signs Vital Sign Reading Time Taken Comments Blood Pressure 155/88 06/20/2025 11:12 AM CDT Pulse 72 06/20/2025 11:12 AM CDT Temperature 36.8 C (98.2 F) 12/03/2024 8:47 AM DOCTOR OF NURSE ANESTHESIA Respiratory Rate 18 12/03/2024 8:47 AM DOCTOR OF NURSE ANESTHESIA Oxygen Saturation 100% 06/20/2025 11:12 AM CDT Inhaled Oxygen Concentration - - Weight 72.8 kg (160 lb 6.4 oz) 06/20/2025 11:12 AM CDT Height 149.9 cm (4' 11.02) 06/20/2025 11:12 AM CDT Body Mass Index 32.38 06/20/2025 11:12 AM CDT Plan of Treatment Upcoming Encounters Date Type Department Care Team (Latest Contact Info) Description 07/29/2025 1:30 PM CDT Hospital Encounter [facility] Operating Room 1 [place] [address] Arnol Moreau MD [address] [facility] [address] [place] [address] 07/29/2025 1:30 PM CDT - 07/29/2025 2:15 PM CDT Surgery [facility] Operating Room 1 [place] [address] Arnol Moreau MD [address] [facility] [address] [place] [address] Bilateral carpal tunnel release-hand table Scheduled Procedures [...] Screening Discontinued Medical Devices Implanted Type Area Director Of Guidance Device Identifier Shelf Expiration Date Model / Serial / Lot Filler Bone Void Norian Calcium Phosphate Fiber 3 Ml Drillable Inject Reinforced Bioresorbable Biocompatible Isothermic Sterile - [id number] Implanted:Qty: 1 on 01/31/2018 by Arnol Moreau MD at [facility] Right: Ankle Synthes I 05/18/2019 [id number] S / / [id number] Procedures Procedure Name Priority Date/Time Associated Diagnosis Comments COLONOSCOPY 02/23/2023 9:55 AM CDT DIGITAL MAMMOGRAPHY Routine 11/25/2015 1 1:33 AM DOCTOR OF NURSE ANESTHESIA SERUM HEPATITIS C AB Routine 03/05/2015 12:55 PM CDT from Last 3 Months or Most Recently Relevant to Health Maintenance Results * COLONOSCOPY (02/23/2023 9:55 AM CDT) Anatomical Region Laterality Modality Other Narrative Procedure Note Polina Rosa MD - 02/23/2023 9:55 AM CDT [facility] Patient Name: Shivani Betancur Procedure Date: 02/23/2023 9:55 AM Date of : 1965 Admit Type: Outpatient Age: 57 Gender: Female Attending MD: Ploina Rosa M.D. Room: [facility] ENDOSCOPY ROOM 1 Note Status: Finalized [...] under direct vision. The Pediatric Colonoscope PCF-[id number] was introducedthrough the anus and advanced to [...] 9:55 AM Procedure Code(s): --- Professional --- 28569, Colonoscopy, flexible; diagnostic, including collection of specimen(s) by brushing or washing, when performed (separateprocedure) Diagnosis Code(s): --- Professional --- Z12.11, Encounter for screening for malignant neoplasm of colon K64.8, Other hemorrhoids K57.30, Diverticulosis of large intestine without perforation orabscess without bleeding CPT copyright 2020 [employer]. All rights reserved. The codes documented in this report are preliminary and upon oil plant operator reviewmay be revised to meet current compliance requirements. Recognized by the [place] [employer] for promoting quality in endoscopy Polina Rosa MD ENDOSCOPY PROCEDURES Final Result * DIGITAL MAMMOGRAPHY (11/25/2015 11:33 AM DOCTOR OF NURSE ANESTHESIA) Anatomical Region Laterality Modality Breast Mammography 11/25/2015 11:3 3 AM DOCTOR OF NURSE ANESTHESIA Narrative 11/28/2015 11:13 AM DOCTOR OF NURSE ANESTHESIA Mr/Td Screening Mamm Bi Acc#: [id number] DATE OF EXAM: Nov 25 2015 ADDENDUM PLEASE SEE BELOW Performed by: CLINICAL HISTORY: Screen. RESULT: Two views of each breast were obtained. By report, a prior study was performed at [facility] and a release form has been [...] made to prior studies from 07/19/14 from [facility]. No interval suspicious mass or calcification [...] HINOJOSA Requesting Attending Fax: -- Attending ID: [id number] Requesting ID: [id number] Report To 1 ID: [id number] Report To 1 Name: RHIANNA HINOJOSA Report To 1 FAX: -- NextGen Order #: Procedure Note Provider, MD Kip - 03/22/2017 Mr/Td Screening Mamm Bi Acc#: [id number] DATE OF EXAM: Nov 25 2015 ADDENDUM PLEASE SEEBELOW Performed by: CLINICAL HISTORY: Screen. RESULT: Two views of each breast were obtained. By report, a prior study wasperformed at [facility] and a release form has been submittedto acquire the prior exam for review. There are scattered fibroglandulardensities bilaterally. No suspicious mass or calcification is seen tosuggest mammographic evidence of malignancy. There is a surgical markingring in the central upper anterior half of the right breast. Digitaltechnology was employed plus computer-aided detection software (R2) wasutilized in interpretation of these images. This facility utilizes [employer] system to notify patients of yearly mammograms. IMPRESSION: 1. NO DEFINITIVE MAMMOGRAPHIC EVIDENCE OF MALIGNANCY. 2. IF PRIOR STUDIES BECOME AVAILABLE, AN ADDENDUM WILL BE ISSUED OTHERWISEANNUAL FOLLOW-UP IS RECOMMENDED. BI-RADS CATEGORY 1 - NEGATIVE ADDENDUM: DR. BALDWIN/TD11/27/15 Comparison is now made to prior studiesfrom 07/19/14 from [facility]. No interval suspicious mass orcalcification has [...] HINOJOSA Requesting Attending Fax: -- Attending ID: [id number] Requesting ID: [id number] Report To 1 ID: [id number] Report To 1 Name: RHIANNA HINOJOSA Report [...] Most Recently Relevant to Health Maintenance Insurance [facility], [facility] H[facility]/PPO Address: [address] [address] [place] [address] [employer] [facility] HMO/PPO Address: [address] [address] Advance Directives For more information, please contact: [phone] * Full Code (Latest Code Status on File) Date Activated Date Inactivated Comments 12/03/2024 7:18 AM 12/03/2024 1:06 PM * Full Code Date Activated Date Inactivated Comments 12/03/2024 7:18 AM 12/03/2024 7:18 AM * Full Code Date Activated Date Inactivated Comments 02/23/2023 9:56 AM 02/23/2023 5:30 PM * Full Code Date Activated Date Inactivated Comments 02/23/2023 9:56 AM 02/23/2023 9:56 AM Care Teams Medical Accounts Receivable Specialist Relationship Specialty Start Date End Date Margarito العراقي MD [address] [place] [address] PCP - General Family Medicine 09/04/20 Raymond Vela MD [address] [place] [address] Referring Physician Obstetrics and Gynecology 08/17/21
--- OUTSIDE RECORDS SUMMARY | 2025-07-05 23:42 | XMS_ITS | Encounter Summary ---
Author Organization [facility] Medical Group Address [address] [place] [address] Care Team Providers Care Bale Opener Name Role Phone Mendoza Parker MD Primary Care Provider +1- [phone] Mendoza Parker MD Primary Care Provider +- [phone] Mendoza Parker MD Primary Care Provider +- [phone] Mendoza Parker MD Primary Care Provider +- [phone] Mendoza Parker MD Primary Care Provider + [phone] Mendoza Parker MD Primary Care Provider +[phone]- [phone] Margarito العراقي MD Primary Care Provider [phone] Raymond Vela MD Unavailable [phone] Encounter Details Date Type Department Care Team (Late st Contact Info) Description 01/05/2013 Orders Only [facility] Health Information Management [address] [place] [address] Scanning, Provider Social History Tobacco Use Types Packs/Day Years Used Date Smoking Tobacco: Never Assessed Comments Unknown Sex and Gender Information Value Date Recorded Sex Assigned at Not on file Legal Sex 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 Gender Identity Not on file Sexual Orientation Not on file documented as of this encounter Plan of Treatment Upcoming Encounters Date Type Department Care Team (Latest Contact Info) Description 07/29/2025 1:30 PM CDT Hospital Encounter [facility] Operating Room [address] [place] [address] Arnol Moreau MD [address] [place] [address] [address] [address] 07/29/2025 1:30 PM CDT - 07/29/2025 2:15 PM CDT Surgery [facility] Operating Room [address] [place] [address] Arnol Moreau MD [address] [place] [address] [address] [place] [address] Bilateral carpal tunnel release-hand table Scheduled Procedures [...] documented as of this encounter Care Teams Bale Opener Relationship Specialty Start Date End Date Mendoza [...] DR [address] [place] [id number] PCP - General Family Medicine 09/04/20 Raymond Vela MD [address] [place] [address] Referring Physician Obstetrics and Gynecology 08/17/21 documented as of this encounter
--- OUTSIDE RECORDS SUMMARY | 2025-07-05 23:42 | XMS_ITS | Encounter Summary ---
Author Organization [facility] Medical Group Address [address] [place] [address] Care Team Providers Care Coverstitch Elastic Attacher Name Role Phone Mendoza Parker MD Primary Care Provider [phone]- [phone] Mendoza Parker MD Primary Care Provider +- [phone] Mendoza Parker MD Primary Care Provider +- [phone] Mendoza Parker MD Primary Care Provider +- [phone] Mendoza Parker MD Primary Care Provider + [phone] Mendoza Parker MD Primary Care Provider +[phone]- [phone] Margarito العراقي MD Primary Care Provider +[phone] Raymond Vela MD Unavailable [phone] Encounter Details Date Type Department Care Team (Late st Contact Info) Description 02/01/2012 Orders Only [facility] Health Information Management [address] [place] [address] Scanning, Provider Social History Tobacco Use Types Packs/Day Years Used Date Smoking Tobacco: Never Assessed Comments Unknown Sex and Gender Information Value Date Recorded Sex Assigned at Not on file Legal Sex Female 12:46 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 Gender Identity Not on file Sexual Orientation Not on file documented as of this encounter Plan of Treatment Upcoming Encounters Date Type Department Care Team (Latest Contact Info) Description 07/29/2025 1:30 PM CDT Hospital Encounter [facility] Operating Room 1 [place] [address] Arnol Moreau MD [address] [place] [address] [address] [address] 07/29/2025 1:30 PM CDT - 07/29/2025 2:15 PM CDT Surgery [facility] Operating Room 1 [place] [address] Arnol Moreau MD [address] [place] [address] [address] [place] [address] Bilateral carpal tunnel release-hand table Scheduled Procedures [...] documented as of this encounter Care Teams Coverstitch Elastic Attacher Relationship Specialty Start Date End Date Mendoza Parker MD PCP - General 02/18/17 06/12/20 Mendoza Parker MD PCP - General 11/18/15 02/17/17 Mendoza Parker MD PCP - General 06/03/15 11/17/15 Mendoza Parker MD PCP - General 03/05/13 06/02/15 Mendoza Parker MD PCP - General 08/20/08 03/04/13 Mendoza Parker MD PCP - General 06/13/20 09/03/20 Margarito العراقي MD [address] [place] [address] PCP - General Family Medicine 09/04/20 Raymond Vela MD [address] [place] [address] Referring Physician Obstetrics and Gynecology 08/17/21 documented as of this encounter
--- OUTSIDE RECORDS SUMMARY | 2025-07-05 23:42 | XMS_ITS | Clinical Summary ---
Author Organization [facility] Address [address] [place] [address] Phone Care Team Providers Care Basketballs And Footballs Reverser Name Role Phone Mendoza Parker MD Primary [...] to complete this topic Insurance Care Teams Basketballs And Footballs Reverser Relationship Specialty Start Date End Date Mendoza Parker MD [address] [place] [address] PCP - General Internal Medicine 03/16/16
--- NOTE | 2025-07-05 23:43 | ED.EXTPRO ---
HPI - Extremity Problem General Chief complaint: Extremity Problem,Nontraumatic Stated complaint: trigger finger Time Seen by Provider: 07/05/25 23:06 History of Present Illness HPI Narrative: 59-year-old female with history of fibromyalgia, carpal tunnel, osteoarthritis. She takes meloxicam daily. She presents with trigger finger of her right ring finger. She is wearing a ring currently. Occurred while she was trying to lift a pillow off of her bed at locked up. Never happened before. No traumatic injuries. She has distal range of motion at the tip of the finger and good neuro vasculature and sensation. No traumatic injuries. Otherwise in her normal state of health. No other complaints. Related Data Home Medications ?Medication ?Instructions ?Recorded ?Confirmed ?Last Taken ?Type atorvastatin 20 mg tablet 20 mg PO DAILY 09/21/21 02/26/25 Unknown History duloxetine 30 mg capsule,delayed 30 mg PO DAILY 09/21/21 02/26/25 Unknown History release ergocalciferol (vitamin D2) 1,250 1,250 mcg PO WEEKLY 09/21/21 02/26/25 Unknown History mcg (50,000 unit) capsule hydrochlorothiazide 25 mg tablet 25 mg PO DAILY 09/21/21 02/26/25 Unknown History hydrocodone 5 mg-acetaminophen 325 1 tablet PO PRN PRN Pain (Scale 09/21/21 02/26/25 Unknown History mg tablet Score 4-6) irbesartan 75 mg tablet 75 mg PO DAILY 09/21/21 02/26/25 Unknown History lubiprostone 24 mcg capsule 24 mcg PO DAILY 09/21/21 02/26/25 Unknown History ropinirole 1 mg tablet 1 mg PO DAILY 09/21/21 02/26/25 Unknown History metoprolol succinate 50 mg 50 mg PO DAILY 12/29/22 02/26/25 Unknown History tablet,extended release 24 hr pregabalin 75 mg capsule (Lyrica) 75 mg PO TID 12/29/22 02/26/25 Unknown History Allergies Allergy/AdvReac Type Severity Reaction Status Date / Time ciprofloxacin Allergy Intermediate Dyspnea / Verified 02/26/25 09:23 SOB metronidazole (From Flagyl) Allergy Intermediate Dyspnea / Verified 02/26/25 09:23 SOB codeine Allergy Mild NAUSEA AND Verified 02/26/25 09:23 VOMITING, ITCHING amlodipine AdvReac Intermediate Hypotension Verified 02/26/25 09:23 Review of Systems Review of Systems: As reviewed above in [facility] Past Medical History Medical History Screening mammogram, encounter for Depression Osteoporosis Fracture of right forearm Anxiety Elevated lipids Restless leg syndrome Fibromyalgia Arthritis GERD (gastroesophageal reflux disease) Hypertension Surgical History Surgical History History of cholecystectomy (~2013) History of appendectomy (~2006) H/O: hysterectomy (~2008) lscope hysterectomy for endometriosis Previous section 1982 1988 1991 Family History Family History Sibling Diabetes mellitus sister Hypertension sister x2 Father Acute myocardial infarction Other Cerebrovascular accident paternal aunt Mother Malignant tumor of pharynx Social History Social History Smoking packs per day: 0.5 Smoking cigarettes per day: 10.0 Smoking status: Current every day smoker Tobacco type: cigarettes Second hand tobacco smoke exposure: Yes Alcohol intake: current Drinks per week: 3 Alcohol use details: social Substance use: never Substance use type: does not use Do You Feel Safe in your Home?: Yes Lack of Transportation: No Lack of Food: Never True Current Housing: I Have Housing Concerned About Future Housing: No Difficulty Paying Gas/Electric Bills: No Difficulty Paying for Meds: No Currently Unemployed: No Education: Associate Degree Difficulty w/ Childcare or Family Care: No Living arrangements: with family Additional living arrangements comments: Occupation/Education: 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 Mucous membranes moist. NECK: Supple. CHEST: Symmetric chest rise, no labored breathing ABDOMEN: [Soft, nondistended], [nontender], [No rigidity or guarding] EXTREMITIES: Trigger finger of the right ring finger, wearing a ring, no swelling, mild tenderness to palpation over the PIP joint. Distal flexion at the DIP joint intact. Pain with attempting extension. No restricted range of motion of the other joints. SKIN: Warm, dry, no rash. NEURO: [No focal deficits]. Alert and oriented [x3.] PSYCH: [Normal mood and affect.] Course Vital Signs Vital signs: Vital Signs Temperature 36.8 C 07/05/25 23:06 Pulse Rate 101 H 07/05/25 23:06 Respiratory Rate 16 07/05/25 23:06 Blood Pressure 124/87 07/05/25 23:06 Pulse Oximetry 98 07/05/25 23:06 Oxygen Delivery Room Air 07/05/25 23:06 Temperature 36.8 C 07/05/25 23:06 Pulse Rate 101 H 07/05/25 23:06 Respiratory Rate 16 07/05/25 23:06 Blood Pressure 124/87 07/05/25 23:06 Pulse Oximetry 98 07/05/25 23:06 Oxygen Delivery Room Air 07/05/25 23:06 MDM - Extremity (Nontraumatic) MDM Narrative Medical decision making narrative: 59-year-old female with history of fibromyalgia, carpal tunnel, osteoarthritis. She takes meloxicam daily. She presents with trigger finger of her right ring finger. She is wearing a ring currently. Occurred while she was trying to lift a pillow off of her bed at locked up. Never happened before. No traumatic injuries. She has distal range of motion at the tip of the finger and good neuro vasculature and sensation. No traumatic injuries. Otherwise in her normal state of health. No other complaints. Trigger finger of the right ring finger, wearing a ring, no swelling, mild tenderness to palpation over the PIP joint. Distal flexion at the DIP joint intact. Pain with attempting extension. No restricted range of motion of the other joints. Able to successfully extend the digit without any traumatic injuries. Patient has full range of motion at this time and pain and symptoms have resolved. Did remove the ring for safety and potential swelling. Finger was splinted with a finger splint and patient was given return precautions and instructions for care as well as follow-up with her precision agriculture specialist. Safe for discharge at this time. Discharge Plan Discharge Clinical Impression: Trigger finger Patient Disposition: Home Condition: Stable Instructions: Antibiotic Form, Trigger Finger (ED) Additional Instructions: Anti-inflammatories as needed, use the finger splint for comfort and to keep the area straight. Follow-up with your regular doctor and precision agriculture specialist. Return with any emergent concerns. Patient Language: Guatemalan Prescriptions: No Action atorvastatin 20 mg tablet 20 mg PO DAILY ropinirole 1 mg tablet 1 mg PO DAILY hydrocodone-acetaminophen 5-325 mg tablet 1 tablet PO PRN PRN (Reason: Pain (Scale Score 4-6)) irbesartan 75 mg tablet 75 mg PO DAILY hydrochlorothiazide 25 mg tablet 25 mg PO DAILY ergocalciferol (vitamin D2) 1,250 mcg (50,000 unit) capsule 1,250 mcg PO WEEKLY duloxetine 30 mg capsule,delayed release(DR/EC) 30 mg PO DAILY lubiprostone 24 mcg capsule 24 mcg PO DAILY metoprolol succinate 50 mg tablet extended release 24 hr 50 mg PO DAILY pregabalin [Lyrica] 75 mg capsule 75 mg PO TID cyclobenzaprine 10 mg tablet 10 mg PO TID PRN (Reason: muscle spasm) Qty: 14 0RF lidocaine 5 % adhesive patch,medicated 1 patch topical DAILY PRN (Reason: pain) Qty: 15 0RF Rx Instructions: leave on most painful area for up to 12 hrs clindamycin phosphate [Cleocin] 2 % cream 1 appful vaginal QHS Qty: 40 3RF Rx Instructions: for 3 days estradiol 0.01 % (0.1 mg/gram) cream 1 appful VAGINAL 3XW Qty: 42.5 2RF Follow-up/Referrals: UNKNOWN,DOCTOR [Primary Care Provider] - Time of Disposition: 23:54
== END 2025-07-06 | disposition home or self-care (01) ==
PROVIDERS: Emergency Provider Student in an Organized Health Care Education/Training Program
DX: M65.341 Trigger finger, right ring finger (principal); I10 Essential (primary) hypertension; M81.0 Age-related osteoporosis without current pathological fracture; M79.7 Fibromyalgia; M19.90 Unspecified osteoarthritis, unspecified site; K21.9 Gastro-esophageal reflux disease without esophagitis; G25.81 Restless legs syndrome; F32.A Depression, unspecified; F41.9 Anxiety disorder, unspecified; F17.210 Nicotine dependence, cigarettes, uncomplicated; Z90.49 Acquired absence of other specified parts of digestive tract; Z90.710 Acquired absence of both cervix and uterus; Z79.1 Long term (current) use of non-steroidal anti-inflammatories (NSAID); Z79.899 Other long term (current) drug therapy
CPT/HCPCS: 29130; 99282

== ENCOUNTER 2025-10-10 12:26 | Outpatient (CLI) | payer OTHER, SELFPAY ==
--- NOTE | ~2025-10-10 | CT_ITS ---
EXAMINATION: CT abdomen wo/w con DATE: 10/10/2025 13:03 INDICATION: Elevated alkaline phosphatase. Abdominal pain. TECHNIQUE: Computed tomography (CT) of the abdomen was performed without and with 100 mL Omnipaque-350 intravenous contrast utilizing a standard pancreas protocol. Automated exposure control and iterative reconstruction technique were employed. The dose-length product was 1491.38 mGy-cm. COMPARISON: CT dated 11/12/2024 FINDINGS: Visualized mid to lower lungs are clear. Calcified right hilar and mediastinal lymph nodes consistent with old granulomatous disease. Heart size is normal. No pericardial or pleural effusion. There are few scattered hepatic and splenic calcification also consistent with old granulomatous disease. There is mild dilation of the common bile duct up to 8-9 mm which likely related to prior cholecystectomy with surgical clips the gallbladder fossa. No intrahepatic ductal or ductal dilation. Pancreas is normal with no evident masses or pancreatic ductal dilation. Bilateral adrenal glands and right kidney are normal. 5 mm hypodense cyst at the interpolar left kidney. Postoperative changes along the tip the cecum consistent with prior appendectomy. There are few diverticula along the visualized descending colon without adjacent from trace stranding to suggest diverticulitis. No bowel obstruction. No pathologically enlarged abdominal lymphadenopathy. Small fat-containing umbilical hernia. Mild lumbar and moderate lower thoracic spondylosis. IMPRESSION: 1. Mild dilation the common bile duct to 8-9 mm which likely related to prior cholecystectomy. No intrahepatic biliary ductal dilation or evident obstructing mass at the distal common bile duct. Reviewed, dictated and finalized at location A. [facility] IMPRESSION: 1. Mild dilation the common bile duct to 8-9 mm which likely related to prior c holecystectomy. No intrahepatic biliary ductal dilation or evident obstructing mass at the distal common bile duct.
[2025-10-10 12:53] LABS: Estimated Glomerular Filt Rate > 60
== END 2025-10-10 12:27 | disposition home or self-care (01) ==
LOC: MICIMG 12:27
DX: R74.8 Abnormal levels of other serum enzymes (principal); R10.84 Generalized abdominal pain
CPT/HCPCS: 74170; Q9967